=== PATIENT | female | born 1965 | race Caucasian/White ===

== ENCOUNTER 2017-12-25 10:34 | Emergency (ER) | payer MEDICARE, MEDICAID, SELFPAY ==
[2017-12-25 10:46] VITALS: BP 126/79; PULSE 88; RESP 16; TEMP 36.2; O2SAT 99
--- NOTE | 2017-12-25 12:11 | ED.GENADUL_ITS ---
Disposition Clinical Impression: Low back pain with sciatica Disposition: HOME Condition: Stable Instructions: Sciatica (ED), Lower Back Exercises (ED) Additional Instructions: Feel free to return to the emergency department if you have any fever associate with your back pain, saddle anesthesia, significant weakness to her lower cavities or further concerns you have emergently. Otherwise follow-up with your primary care provider next week for reassessment as discussed. Due to the medication you are being prescribed do not take any further ibuprofen or NSAIDs while on prescription diclofenac. If the lidocaine patch you are given in the emergency department is effective you may purchase [id number] lidocaine patches and apply as directed on packaging. Prescriptions: Diclofenac Sodium 50 mg PO Q8H PRN #12 tablet.dr RAZO Reason: Pain Referrals: Una Dickinson PA [Primary Care Provider] - 3 days (Please follow-up with your primary care provider early next week for reassessment as discussed.) Medical Decision Making - Medical Decision Making Patient presenting to the emergency department for 2 weeks of back pain. Patient has no signs of cauda equina, epidural abscess, severe radiculopathy with cord compression. Patient is ambulatory and has history of back pain with typical sciatica down both sides now just isolated to right side. Patient Edgar on Vicodin for her fibromyalgia and on Flexeril as needed. Given no emergent findings on physical exam today normal reflexes no saddle anesthesia no concerns for emergent back pain patient is given a lidocaine patch to see if this will also help along with ketorolac IM. Patient was told not to take any further [id number] ibuprofen was prescribed some diclofenac to see if that helps further with her pain on top of her Vicodin and informed that she should follow-up early next week with her primary care provider for reassessment and possible other medication changes to her normal pain regimen. Patient states understanding to not further take any NSAIDs and to continue to take her Flexeril and Vicodin as previously prescribed. Did discuss with patient possible steroid use but given her diabetes I do not feel that this is the best initial course at this time but it is considered. Patient informed that she may return to emergency department for any new or significant worsening of symptoms otherwise to follow-up with primary care early next week which she says will not be a problem. After discussion of diagnosis and plan of care with patient patient agreed and stated no further needs, questions, or concerns at this time. History of Present Illness - General Chief complaint: Nk/Back Pain Stated complaint: LOWER BACK AND RIGHT HIP Time Seen by Provider: 12/25/17 10:38 Source: patient, RN notes reviewed, old records reviewed Mode of arrival: ambulatory Limitations: no limitations - History of Present Illness Initial comments: Patient reports for the last 2 weeks she has had some lower back pain with radiation into right hip. She states she has ongoing low back pain, sciatica, and fibromyalgia that is normally treated by her primary care provider and with exacerbations she usually goes to her PCP but they are on vacation this week but that she can obtain an appointment for next Thursday is looking for help to assist her for the . Patient denies any fever chills, saddle anesthesia , changes in bowel or bladder function. Onset/Timin -: week(s) Location: back Radiation: distal (right leg) Severity scale (1-10): 9 Quality: aching, sharp Consistency: constant Improves with: none Worsens with: none Associated Symptoms: denies other symptoms - Related Data Hydrocodone/Acetaminophen [Vicodin 5-300 mg Tablet] 1 each PO TID 09/20/12 MetFORMIN [Glucophage] 1,000 mg PO BID 09/20/12 Albuterol Sulfate [Albuterol Sulfate Hfa] 1 gm IH PRN PRN 06/07/14 Mupirocin 2% Oint. [Bactroban 2% Ointment] 22 gm TP QID #22 tube 06/07/14 Duloxetine HCl 60 mg PO DAILY #30 cap 02/25/17 Epinephrine [Epipen 2-Leonidas] 1 dis.syr .ROUTE DIRECTED 04/13/17 Esomeprazole [NexIUM] 1 cap PO DAILY 04/13/17 Insulin Glargine [Lantus Solostar] 14 units SC BID 04/13/17 Lisinopril 10 mg PO DAILY tab-cap 04/13/17 Montelukast Sodium [Singulair] 10 mg PO DAILY 04/13/17 SUMAtriptan [Imitrex] 100 mg PO DIRECTED 04/13/17 Simvastatin [Zocor] 20 mg PO QPM 04/13/17 Zolpidem Tartrate [Ambien] 10 mg PO DAILY PRN PRN 04/13/17 Aspirin [Aspirin EC] 81 mg PO BID #30 tablet. 04/23/17 Diclofenac Sodium 50 mg PO Q8H PRN #12 tablet. 12/25/17 Allergies Allergy/AdvReac Type Severity Reaction Status Date / Time adhesive tape Allergy Intermediate Hives Unverified 12/25/17 10:51 venom-honey bee Allergy Intermediate severe Unverified 12/25/17 10:51 local reaction venom-wasp Allergy Intermediate severe Unverified 12/25/17 10:51 local reaction Sulfa (Sulfonamide Allergy Mild Skin Rash Unverified 12/25/17 10:51 Antibiotics) Review of Systems Constitutional: denies: chills, fever Cardiovascular: denies: chest pain, palpitations, syncope Gastrointestinal: denies: abdominal pain, nausea, vomiting, diarrhea Genitourinary: denies: dysuria Musculoskeletal: as per HPI, back pain. denies: joint swelling Neurological: denies: headache, weakness Comment: All other systems reviewed and negative Past Medical History - Past Medical History Medical history: arthritis, asthma, COPD, diabetes, fibromyalgia, GERD, hyperlipidemia, hypertension Lumbar back pain with sciatica, migraine headaches, obstructive sleep apnea Surgical history: non-contributory, bilateral tubal ligation, hysterectomy, other (Carpal tunnel surgery, knee arthroscopy,) Family history: CAD/GA, cancer, diabetes, hypertension - Social History Smoking status: current everyday smoker Alcohol use: none Drug use: none General Exam - General Limitations: no limitations General appearance: alert, in no apparent distress - Head Head exam: Present: atraumatic - Respiratory Respiratory exam: Present: normal lung sounds bilaterally. Absent: respiratory distress - Cardiovascular Cardiovascular Exam: Present: regular rate, normal rhythm, normal heart sounds - Rectal Rectal exam: Present: deferred - Extremities Exam Extremities exam: Present: full ROM - Back Exam Back exam: Present: vertebral tenderness (Lower lumbar spine) - Expanded Back Exam No standard instances Back exam: Absent: saddle anesthesia Back exam: Sciatic Notch Tenderness: (right), Positive Straight Leg Raise: ( right), Negative Straight Leg Raising: (left ) - Neurological Exam Neurological exam: Present: alert, oriented X3, reflexes normal (Patellar and Achilles). Absent: altered, motor sensory deficit - Skin Skin exam: Present: warm, dry, normal color Course Vital Signs - 24 hr 12/25/17 10:46 Temperature 36.2 C L Pulse 88 Respiratory 16 Rate Blood Pressure 126/79 Pulse Oximetry 99
[2017-12-25] MEDS: Lidocaine 5% Patch 1 PATCH TP (12:56)
[2017-12-25] MEDS: Ketorolac 60 MG/2 ML VIAL IM (12:58)
[2017-12-25 13:05] VITALS: BP 143/79; PULSE 82; RESP 16; TEMP 36.9; O2SAT 99
== END 2017-12-25 13:05 | disposition home or self-care (01) ==
PROVIDERS: Emergency Provider Student in an Organized Health Care Education/Training Program; PCP Physician Assistant Medical
DX: M54.41 Lumbago with sciatica, right side (principal); G89.29 Other chronic pain; Z79.891 Long term (current) use of opiate analgesic; I10 Essential (primary) hypertension; E11.9 Type 2 diabetes mellitus without complications; Z79.4 Long term (current) use of insulin; J44.9 Chronic obstructive pulmonary disease, unspecified; F17.210 Nicotine dependence, cigarettes, uncomplicated
CPT/HCPCS: 96372; 99284 ×2; J1885

== ENCOUNTER → 2017-12-30 08:54 | Outpatient (REF) | payer MEDICARE, MEDICAID, SELFPAY ==
[2017-12-31 10:59] LABS: Campylobacter PCR SEE COMMENTS; Result Negative; Salmonella PCR SEE COMMENTS; Shiga Toxin PCR SEE COMMENTS; Shigella/Enteroinvasive Ecoli SEE COMMENTS; Specimen Description Feces
== END ==
LOC: NCHCN 08:54
PROVIDERS: PCP Physician Assistant Medical; Visit Provider Physician Assistant Medical
DX: R19.7 Diarrhea, unspecified (principal)
CPT/HCPCS: 87329; 87505; 87324; 87798

== ENCOUNTER → 2018-01-18 15:01 | Outpatient (CLI) | payer MEDICARE, MEDICAID, SELFPAY ==
--- NOTE | 2018-01-18 14:54 | DI.REPORT_ITS ---
SYMPTOMS/DIAGNOSIS: RIGHT KNEE PAIN; RIGHT ANKLE PAIN; RIGHT SHOULDER PAIN RIGHT KNEE: Three views. No acute fracture or dislocation is seen. There is mild narrowing of the lateral femorotibial joint space. Mild periarticular spurring and subchondral sclerosis is also seen in the lateral femorotibial joint space. The joint spaces are otherwise well maintained. The bones are normally mineralized. The soft tissues are unremarkable. IMPRESSION: Osteoarthritis of the right knee, predominantly involving the lateral femorotibial joint. RIGHT ANKLE: Three views. Comparison is 03/08/17. The articular surfaces are well maintained. The bones are intact and normally mineralized. There is a small spur at the Achilles insertion onto the calcaneus. The soft tissues are unremarkable. IMPRESSION: No acute abnormality. RIGHT SHOULDER: No priors. Mild hypertrophic changes are seen at the acromioclavicular joint. The glenohumeral joint appears well maintained. The bones are intact and normally mineralized. The soft tissues are unremarkable. IMPRESSION: Mild degenerative changes about the right shoulder.
== END ==
PROVIDERS: PCP Physician Assistant Medical; Visit Provider Student in an Organized Health Care Education/Training Program
DX: M25.561 Pain in right knee (principal); M25.571 Pain in right ankle and joints of right foot; M25.511 Pain in right shoulder; M19.011 Primary osteoarthritis, right shoulder; M17.11 Unilateral primary osteoarthritis, right knee; M75.81 Other shoulder lesions, right shoulder; G89.29 Other chronic pain
CPT/HCPCS: 73030; 73562; 73610; 20610; 99214; J1040

== ENCOUNTER → 2018-03-01 07:53 | Outpatient (BNVA) | payer MEDICARE, MEDICAID, SELFPAY | PROVIDERS: Visit Provider Student in an Organized Health Care Education/Training Program | DX: M75.81 Other shoulder lesions, right shoulder (principal); G57.91 Unspecified mononeuropathy of right lower limb; E11.41 Type 2 diabetes mellitus with diabetic mononeuropathy; Z79.4 Long term (current) use of insulin; I10 Essential (primary) hypertension | CPT/HCPCS: 99214 ==

== ENCOUNTER 2018-03-04 01:18 | Outpatient (CLI) | payer MEDICARE, MEDICAID, SELFPAY ==
--- NOTE | 2018-03-04 11:40 | DI.MRI_ITS ---
SYMPTOMS/DIAGNOSIS: RT SHOULDER PAIN, TENDINITIS, M75.81 MRI OF THE RIGHT SHOULDER: Comparison is made with plain films dated . Proton density and fat suppressed T 2 axial and coronal and T 1 and fat suppressed T 2 sagittal sequences were performed. The exam is limited by patient motion, particularly the coronal sequences. There is also poor fat suppression in part related to the patient's body habitus. There are minimal degenerative changes of the AC joint. There is some spurring from the glenoid. The marrow signal appears normal. The supraspinatus tendon appears intact. There is mildly increased signal in the distal infraspinatus tendon as well as in the distal subscapularis tendon, consistent with tendinosis. The biceps and teres minor tendons appear intact. No labral defects are identified. IMPRESSION: Tendinosis involving the infraspinatus and subscapularis tendons.
== END 2018-03-04 01:38 ==
PROVIDERS: PCP Nurse Practitioner Family; Visit Provider Student in an Organized Health Care Education/Training Program
DX: M25.511 Pain in right shoulder (principal); M75.81 Other shoulder lesions, right shoulder
CPT/HCPCS: 73221

== ENCOUNTER 2018-03-29 15:20 | Emergency (ER) | payer MEDICARE, MEDICAID, SELFPAY ==
[2018-03-29 15:30] VITALS: BP 159/87; PULSE 80; RESP 16; TEMP 26.8; O2SAT 99
--- NOTE | 2018-03-29 15:40 | W.ED.GENAD ---
Discharge Plan Disposition Patient Disposition: HOME Condition: Good Discharge Details Chief Complaint: Orthopedic Clinical Impression: Sprain of wrist Primary Care Provider: Yamile De Leon ED Provider: Misael Sims Home Meds and New Rx's Prescriptions: Continue duloxetine 60 MG capsule,delayed release(DR/EC) 60 mg PO DAILY Qty: 30 RF: 0 lisinopril 10 MG tablet 10 mg PO DAILY RF: 0 metformin [Glucophage] 1,000 MG tablet 1,000 mg PO BID RF: 0 hydrocodone-acetaminophen [Vicodin] 1 EACH tablet 1 ea PO TID RF: 0 albuterol sulfate 8.5 GM HFA aerosol inhaler 1 gm Inhalation PRN PRNRF: 0 mupirocin 22 GM ointment 22 gm Topical QID Qty: 22 RF: 2 diclofenac sodium 50 MG tablet,delayed release (DR/EC) 50 mg PO Q8H PRN (Reason: Pain) Qty: 12 RF: 0 insulin glargine [Lantus Solostar U-100 Insulin] 300 UNITS/3 ML insulin pen 14 units Sub-Q BID RF: 0 sumatriptan succinate 100 MG tablet 100 mg PO DIRECTED RF: 0 simvastatin 20 MG tablet 20 mg PO QPM RF: 0 esomeprazole magnesium [Nexium] 40 MG capsule,delayed release(DR/EC) 1 cap PO DAILY RF: 0 montelukast [Singulair] 10 MG tablet 10 mg PO DAILY RF: 0 epinephrine [EpiPen 2-Leonidas] 0.3 MG/0.3 ML auto-injector 1 dis.syr .Route DIRECTED RF: 0 zolpidem [Ambien] 10 MG tablet 10 mg PO DAILY PRN PRNRF: 0 aspirin 81 MG tablet,delayed release (DR/EC) 81 mg PO BID Qty: 30 RF: 0 Discharge Instructions Instructions: Wrist Sprain (ED) Additional Instructions: Wear removable wrist splint, as needed 7-10 days time. Continue ice, Tylenol if, & your regular medications. Return for increasing pain, swelling, cold/blue/numb or tingling fingertips Follow-up with Yamile De Leon if not improving in 1 week's time Medical Decision Making 52-year-old female presents from home with essentially a trip and fall when she stumbled over her dog carrying wood. She has predominately left wrist pain but also mild left elbow and shoulder pain. Differential diagnosis includes contusion, sprain, fracture. She is referred for x-ray of the left upper extremity. Patient's radiograph does not reveal underlying fracture. She certainly has a wrist strain/sprain. We will place in a removable cockup wrist splint. Discussed with her home management as well as return precautions. She is stable for discharge HPI General Mode of arrival: ambulatory. Date/Time Provider Initiated Documentation: 03/29/18 15:23. Limitations to Documentation: no limitations. Information obtained by: patient. History of Present Illness 52 year old F presents to the emergency department with the chief complaint of Fall and left arm and wrist, described as moderate, Quality is described as aching, and is localized to the left and upper extremity. Patient reports no radiation. Patient started experiencing this minute(s) and it has been constant. No relieving factors improve symptom(s), and Rest improves symptom(s), Movement worsens symptoms . HPI Narrative: Fall: 52-year-old female who has pre-standing right sided intermittent low back pain and weakness with frequent giving out of the leg, for which she has pre-standing appointments with orthopedics and neurology. She had no new changes to this pre-standing condition, today while carrying wood her leg started to give out and she attempted to catch herself as is her routine, when she tripped over her dog and fell with her left wrist in pronation and flexion, striking the ground. She did not have loss of consciousness. She denies head/neck/back/chest/abdominal/back/leg injury. She has dull, achy, constant left wrist pain and left elbow pain. She has mild left shoulder pain. She does not have any motor weakness or numbness Related Data Home Medications Medication Instructions Recorded Confirmed hydrocodone-acetaminophen [Vicodin] 1 ea PO TID 09/20/12 03/29/18 metformin [Glucophage] 1,000 mg PO BID 09/20/12 03/29/18 albuterol sulfate 1 gm INHALATION PRN PRN 06/07/14 03/29/18 mupirocin 22 gm TOPICAL QID #22 tube 06/07/14 03/29/18 duloxetine 60 mg PO DAILY #30 cap 02/25/17 03/29/18 epinephrine [EpiPen 2-Leonidas] 1 dis.syr .ROUTE DIRECTED 04/13/17 03/29/18 esomeprazole magnesium [Nexium] 1 cap PO DAILY 04/13/17 03/29/18 insulin glargine [Lantus Solostar 14 units SUB-Q BID 04/13/17 03/29/18 U-100 Insulin] lisinopril 10 mg PO DAILY tab-cap 04/13/17 03/29/18 montelukast [Singulair] 10 mg PO DAILY 04/13/17 03/29/18 simvastatin 20 mg PO QPM 04/13/17 03/29/18 sumatriptan succinate 100 mg PO DIRECTED 04/13/17 03/29/18 zolpidem [Ambien] 10 mg PO DAILY PRN PRN 04/13/17 03/29/18 aspirin 81 mg PO BID #30 tablet. 04/23/17 03/29/18 diclofenac sodium 50 mg PO Q8H PRN #12 tablet. 12/25/17 03/29/18 Previous Rx's Medication Instructions Recorded mupirocin 22 gm TOPICAL QID #22 tube 06/07/14 duloxetine 60 mg PO DAILY #30 cap 02/25/17 aspirin 81 mg PO BID #30 tablet. 04/23/17 diclofenac sodium 50 mg PO Q8H PRN #12 tablet. 12/25/17 Allergies Allergy/AdvReac Type Severity Reaction Status Date / Time adhesive tape Allergy Intermediate Hives Unverified 03/29/18 15:38 venom-honey bee Allergy Intermediate severe Unverified 03/29/18 15:38 local reaction venom-wasp Allergy Intermediate severe Unverified 03/29/18 15:38 local reaction Sulfa (Sulfonamide Allergy Mild Skin Rash Unverified 03/29/18 15:38 Antibiotics) General Stated Complaint: Orthopedic KATHERINE: 4 Review of Systems Review of Systems 6 systems reviewed and otherwise neg PFSH Medical History Asthma Chronic pain Depression Diabetes mellitus Diarrhea Dry skin Fibromyalgia GERD (gastroesophageal reflux disease) Generalized anxiety disorder Headache Heel pain, bilateral Hematuria Hyperlipidemia Hypertension Impingement syndrome, shoulder, left Long-term insulin use Lumbar back pain Menopause syndrome Narcotic drug use Obesity Obstructive sleep apnea Skin rash Tobacco use Urinary frequency Social History Smoking/Tobacco Use Status: Current every day Surgical History Colonoscopy - MAC (11/06/17) Exam Narrative Exam Narrative: GEN: awake, alert, oriented 3. Pleasant, well groomed, interactive. HEAD: Normocephalic, atraumatic ENT: Mucous membranes moist, oropharynx unremarkable, External ear exam unremarkable EYES: PERRL, EOMI NECK: Full ROM, no SAMI, no menigismus, no tenderness. CHEST/RESP: Nontender, clear to auscultation bilateral, no wheeze/rhonchi/rales CARDIOVASCULAR: RRR, no murmur, rub cleo. 2+ Rad pulse bilateral ABDOMEN: Soft, nontender, no mass. +Bowel sounds. Exam of the back does not reveal any tenderness, no midline step-off/deformity. EXT: Full ROM, no edema, no rash. No tenderness of the left clavicle. Mild tenderness of the anterior glenohumeral joint. Motor is 5 out of 5 but limited somewhat by pain. Sensation is intact throughout the upper extremity. Focal tenderness on the radial aspect of the left wrist Neuro: Grossly normal neurologic exam, conversant, interactive. Psych: Speech fluent, thoughts congruent, affect normal Course Vital Signs Temperature 26.8 C L 03/29/18 15:30 Pulse 80 03/29/18 15:30 Respiratory Rate 16 03/29/18 15:30 Blood Pressure 159/87 H 03/29/18 15:30 Pulse Oximetry 99 03/29/18 15:30 Temperature 26.8 C L 03/29/18 15:30 Temperature Source Skin 03/29/18 15:30 Pulse 80 03/29/18 15:30 Respiratory Rate 16 03/29/18 15:30 Respiratory Effort Non-Labored 03/29/18 15:33 Blood Pressure 159/87 H 03/29/18 15:30 Pulse Oximetry 99 03/29/18 15:30 Pain Level 10 03/29/18 15:30
--- NOTE | 2018-03-29 15:44 | ED.GENADUL_ITS ---
Discharge Plan Disposition Patient Disposition: HOME Condition: Good Discharge Details Chief Complaint: Orthopedic Clinical Impression: Sprain of wrist Primary Care Provider: Yamile De Leon ED Provider: Misael Sims Home Meds and New Rx's Prescriptions: Continue duloxetine 60 MG capsule,delayed release(DR/EC) 60 mg PO DAILY Qty: 30 RF: 0 lisinopril 10 MG tablet 10 mg PO DAILY RF: 0 metformin [Glucophage] 1,000 MG tablet 1,000 mg PO BID RF: 0 hydrocodone-acetaminophen [Vicodin] 1 EACH tablet 1 ea PO TID RF: 0 albuterol sulfate 8.5 GM HFA aerosol inhaler 1 gm Inhalation PRN PRNRF: 0 mupirocin 22 GM ointment 22 gm Topical QID Qty: 22 RF: 2 diclofenac sodium 50 MG tablet,delayed release (DR/EC) 50 mg PO Q8H PRN (Reason: Pain) Qty: 12 RF: 0 insulin glargine [Lantus Solostar U-100 Insulin] 300 UNITS/3 ML insulin pen 14 units Sub-Q BID RF: 0 sumatriptan succinate 100 MG tablet 100 mg PO DIRECTED RF: 0 simvastatin 20 MG tablet 20 mg PO QPM RF: 0 esomeprazole magnesium [Nexium] 40 MG capsule,delayed release(DR/EC) 1 cap PO DAILY RF: 0 montelukast [Singulair] 10 MG tablet 10 mg PO DAILY RF: 0 epinephrine [EpiPen 2-Leonidas] 0.3 MG/0.3 ML auto-injector 1 dis.syr .Route DIRECTED RF: 0 zolpidem [Ambien] 10 MG tablet 10 mg PO DAILY PRN PRNRF: 0 aspirin 81 MG tablet,delayed release (DR/EC) 81 mg PO BID Qty: 30 RF: 0 Discharge Instructions Instructions: Wrist Sprain (ED) Additional Instructions: Wear removable wrist splint, as needed 7-10 days time. Continue ice, Tylenol if , & your regular medications. Return for increasing pain, swelling, cold/blue/numb or tingling fingertips Follow-up with Yamile De Leon if not improving in 1 week's time Medical Decision Making 52-year-old female presents from home with essentially a trip and fall when she stumbled over her dog carrying wood. She has predominately left wrist pain but also mild left elbow and shoulder pain. Differential diagnosis includes contusion, sprain, fracture. She is referred for x-ray of the left upper extremity. Patient's radiograph does not reveal underlying fracture. She certainly has a wrist strain/sprain. We will place in a removable cockup wrist splint. Discussed with her home management as well as return precautions. She is stable for discharge HPI General Mode of arrival: ambulatory . Date/Time Provider Initiated Documentation: 03/29/18 15:23 . Limitations to Documentation: no limitations . Information obtained by: patient . History of Present Illness 52 year old F presents to the emergency department with the chief complaint of Fall and left arm and wrist, described as moderate, Quality is described as aching, and is localized to the left and upper extremity. Patient reports no radiation. Patient started experiencing this minute(s) and it has been constant. No relieving factors improve symptom(s), and Rest improves symptom(s ), Movement worsens symptoms . HPI Narrative: Fall: 52-year-old female who has pre-standing right sided intermittent low back pain and weakness with frequent giving out of the leg, for which she has pre- standing appointments with orthopedics and neurology. She had no new changes to this pre-standing condition, today while carrying wood her leg started to give out and she attempted to catch herself as is her routine, when she tripped over her dog and fell with her left wrist in pronation and flexion, striking the ground. She did not have loss of consciousness. She denies head/neck/back/ chest/abdominal/back/leg injury. She has dull, achy, constant left wrist pain and left elbow pain. She has mild left shoulder pain. She does not have any motor weakness or numbness Related Data Home Medications Medication Instructions Recorded Confirmed hydrocodone-acetaminophen [Vicodin] 1 ea PO TID 09/20/12 03/29/18 metformin [Glucophage] 1,000 mg PO BID 09/20/12 03/29/18 albuterol sulfate 1 gm INHALATION PRN PRN 06/07/14 03/29/18 mupirocin 22 gm TOPICAL QID #22 tube 06/07/14 03/29/18 duloxetine 60 mg PO DAILY #30 cap 02/25/17 03/29/18 epinephrine [EpiPen 2-Leonidas] 1 dis.syr .ROUTE DIRECTED 04/13/17 03/29/18 esomeprazole magnesium [Nexium] 1 cap PO DAILY 04/13/17 03/29/18 insulin glargine [Lantus Solostar 14 units SUB-Q BID 04/13/17 03/29/18 U-100 Insulin] lisinopril 10 mg PO DAILY tab-cap 04/13/17 03/29/18 montelukast [Singulair] 10 mg PO DAILY 04/13/17 03/29/18 simvastatin 20 mg PO QPM 04/13/17 03/29/18 sumatriptan succinate 100 mg PO DIRECTED 04/13/17 03/29/18 zolpidem [Ambien] 10 mg PO DAILY PRN PRN 04/13/17 03/29/18 aspirin 81 mg PO BID #30 tablet. 04/23/17 03/29/18 diclofenac sodium 50 mg PO Q8H PRN #12 tablet. 12/25/17 03/29/18 Previous Rx's Medication Instructions Recorded mupirocin 22 gm TOPICAL QID #22 tube 06/07/14 duloxetine 60 mg PO DAILY #30 cap 02/25/17 aspirin 81 mg PO BID #30 tablet. 04/23/17 diclofenac sodium 50 mg PO Q8H PRN #12 tablet. 12/25/17 Allergies Allergy/AdvReac Type Severity Reaction Status Date / Time adhesive tape Allergy Intermediate Hives Unverified 03/29/18 15:38 venom-honey bee Allergy Intermediate severe Unverified 03/29/18 15:38 local reaction venom-wasp Allergy Intermediate severe Unverified 03/29/18 15:38 local reaction Sulfa (Sulfonamide Allergy Mild Skin Rash Unverified 03/29/18 15:38 Antibiotics) General Stated Complaint: Orthopedic KATHERINE: 4 Review of Systems Review of Systems 6 systems reviewed and otherwise neg PFSH Medical History Asthma Chronic pain Depression Diabetes mellitus Diarrhea Dry skin Fibromyalgia GERD (gastroesophageal reflux disease) Generalized anxiety disorder Headache Heel pain, bilateral Hematuria Hyperlipidemia Hypertension Impingement syndrome, shoulder, left Long-term insulin use Lumbar back pain Menopause syndrome Narcotic drug use Obesity Obstructive sleep apnea Skin rash Tobacco use Urinary frequency Social History Smoking/Tobacco Use Status: Current every day Surgical History Colonoscopy - MAC (11/06/17) Exam Narrative Exam Narrative: GEN: awake, alert, oriented 3. Pleasant, well groomed, interactive. HEAD: Normocephalic, atraumatic ENT: Mucous membranes moist, oropharynx unremarkable, External ear exam unremarkable EYES: PERRL, EOMI NECK: Full ROM, no SAMI, no menigismus, no tenderness. CHEST/RESP: Nontender, clear to auscultation bilateral, no wheeze/rhonchi/rales CARDIOVASCULAR: RRR, no murmur, rub cleo. 2+ Rad pulse bilateral ABDOMEN: Soft, nontender, no mass. +Bowel sounds. Exam of the back does not reveal any tenderness, no midline step-off/deformity. EXT: Full ROM, no edema, no rash. No tenderness of the left clavicle. Mild tenderness of the anterior glenohumeral joint. Motor is 5 out of 5 but limited somewhat by pain. Sensation is intact throughout the upper extremity. Focal tenderness on the radial aspect of the left wrist Neuro: Grossly normal neurologic exam, conversant, interactive. Psych: Speech fluent, thoughts congruent, affect normal Course Vital Signs Temperature 26.8 C L 03/29/18 15:30 Pulse 80 03/29/18 15:30 Respiratory Rate 16 03/29/18 15:30 Blood Pressure 159/87 H 03/29/18 15:30 Pulse Oximetry 99 03/29/18 15:30 Temperature 26.8 C L 03/29/18 15:30 Temperature Source Skin 03/29/18 15:30 Pulse 80 03/29/18 15:30 Respiratory Rate 16 03/29/18 15:30 Respiratory Effort Non-Labored 03/29/18 15:33 Blood Pressure 159/87 H 03/29/18 15:30 Pulse Oximetry 99 03/29/18 15:30 Pain Level 10 03/29/18 15:30
[2018-03-29] MEDS: Acetaminophen 500 MG TAB 1000 MG PO (15:47)
--- NOTE | 2018-03-29 16:14 | DI.RAD_ITS ---
SYMPTOM/DIAGNOSIS: FELL, PAIN SHOULDER AND WRIST, PREVIOUS REPAIR OF SHOULDER LEFT SHOULDER: Five views. Comparison is made with 11/20/16. Since the prior examination, the patient has undergone partial resection of the distal clavicle. No acute fracture or dislocation is identified. There is a well corticated osseous density within the acromioclavicular interval consistent with old injury. The glenohumeral joint is unremarkable. The soft tissues have a normal appearance. IMPRESSION: No acute fracture or dislocation. LEFT FOREARM: Two views. Comparison is made with 01/15/13. No definite acute fracture or dislocation is identified. There has been no change in alignment of the unfused ulnar styloid process. The soft tissues are unremarkable.
--- NOTE | 2018-03-29 16:43 | DI.VRAD_ITS ---
EXAM: XR Left Forearm, 2 Views EXAM DATE/TIME: 03/29/2018 3:40 PM CLINICAL HISTORY: 52 years old, female; Pain; Lower or forearm; Left TECHNIQUE: XR Left forearm 2 views. COMPARISON: No relevant prior studies available. FINDINGS: Bones/joints: Image 1001 demonstrates a cortical step-off at the articular surface of the distal ulna which could be secondary to old trauma but should be correlated with concern for acute subtle fracture. There is negative ulnar variance. A well-corticated 6 mm oval ossific density is seen just distal to the ulna. This could represent the sequela of older trauma or an os. Soft tissues: No radiopaque foreign body seen. IMPRESSION: 1.Image 1001 demonstrates a cortical step-off at the articular surface of the distal ulna which could be secondary to old trauma but should be correlated with concern for acute subtle fracture in this region. 2. Other findings as above. Dictated and Authenticated by: Nell Ibrahim MD. Ordering:STARLA HERNANDEZ MD
--- NOTE | 2018-03-29 16:49 | DI.VRAD_ITS ---
EXAM: XR Left Shoulder Complete, 2 or More Views EXAM DATE/TIME: 03/29/2018 3:40 PM CLINICAL HISTORY: 52 years old, female; Pain; Shoulder; Left TECHNIQUE: XR Left shoulder complete 2 or more views. COMPARISON: CR LEFT SHOULDER COMPLETE 11/20/2016 8:05 AM FINDINGS: Bones/joints: There is some irregularity to the lateral aspect of the humeral head which could represent an old Hill-Sachs deformity. No dislocation. There is a new widened appearance to the left a.c. joint. Within the joint space on image 1005 a 6 mm oval density is identified which could represent a bony fragment or soft tissue calcification. Soft tissues: No radiopaque foreign body seen. IMPRESSION: 1.There is a new widened appearance to the left a.c. joint. This can be seen secondary to an a.c. joint injury or postoperative change. Within the joint space on image 1005 , a 6 mm oval density is identified which could represent a bony fragment or soft tissue calcification. 2. Some irregularity to the lateral aspect of the humeral head which could represent an old Hill-Sachs deformity. 3. Other findings as above. Dictated and Authenticated by: Nell Ibrahim MD. Ordering:STARLA HERNANDEZ MD
== END 2018-03-29 17:07 | disposition home or self-care (01) ==
LOC: ER 16:22
PROVIDERS: Emergency Provider Emergency Medicine; PCP Nurse Practitioner Family
DX: S63.502A Unspecified sprain of left wrist, initial encounter (principal); M25.512 Pain in left shoulder; M25.522 Pain in left elbow; W01.0XXA Fall on same level from slipping, tripping and stumbling without subsequent striking against object, initial encounter; G57.91 Unspecified mononeuropathy of right lower limb; J44.9 Chronic obstructive pulmonary disease, unspecified; F17.210 Nicotine dependence, cigarettes, uncomplicated; E11.9 Type 2 diabetes mellitus without complications; Z79.4 Long term (current) use of insulin; I10 Essential (primary) hypertension
CPT/HCPCS: 29125; 99284; 73030; 73090; L3807

== ENCOUNTER → 2018-04-29 12:30 | Outpatient (BNVA) | payer MEDICARE, MEDICAID, SELFPAY | PROVIDERS: PCP Nurse Practitioner Family; Visit Provider Psychiatry & Neurology Neurology | DX: M54.17 Radiculopathy, lumbosacral region (principal); E11.9 Type 2 diabetes mellitus without complications; Z79.4 Long term (current) use of insulin; I10 Essential (primary) hypertension | CPT/HCPCS: 95885; 95908; 99215 ==

== ENCOUNTER 2018-05-04 00:43 | Outpatient (CLI) | payer MEDICARE, MEDICAID, SELFPAY ==
--- NOTE | 2018-05-04 14:46 | DI.MRI_ITS ---
SYMPTOM/DIAGNOSIS: RT LEG GIVING OUT, RT LUMBOSACRAL RADICULOPATHY, M54.17, CHRONIC LOW BACK PAIN, BILAT LEG PAIN LUMBAR SPINE MRI: Comparison is made with 07/25/10. T 1, T 2 and STIR sagittal, T 1 coronal and T 1 and T 2 axial sequences were performed. The L 1-2 and L 2-3 levels are unremarkable. There is slight disc bulging and mild facet degenerative changes at L 3-4. Slight disc bulging and mild facet degenerative changes are seen at L 4-5. Mild facet degenerative changes are noted at L 5-S 1. No disc herniation is seen at any level. There is no significant neural foraminal narrowing or central canal stenosis. The conus medullaris appears normal. IMPRESSION: Mild degenerative disc changes.
== END 2018-05-04 01:03 ==
PROVIDERS: PCP Nurse Practitioner Family; Visit Provider Psychiatry & Neurology Neurology
DX: M54.17 Radiculopathy, lumbosacral region (principal); M79.604 Pain in right leg; M79.605 Pain in left leg; M51.17 Intervertebral disc disorders with radiculopathy, lumbosacral region
CPT/HCPCS: 72148

== ENCOUNTER → 2018-06-08 14:22 | Outpatient (BNVA) | payer MEDICARE, MEDICAID, SELFPAY | PROVIDERS: PCP Nurse Practitioner Family; Visit Provider Psychiatry & Neurology Neurology | DX: M54.17 Radiculopathy, lumbosacral region (principal); M54.41 Lumbago with sciatica, right side; G89.29 Other chronic pain; E11.9 Type 2 diabetes mellitus without complications; Z79.4 Long term (current) use of insulin; I10 Essential (primary) hypertension | CPT/HCPCS: 99214 ==

== ENCOUNTER 2018-06-14 08:27 | Outpatient (CLI) | payer MEDICARE, MEDICAID, SELFPAY ==
--- NOTE | 2018-06-14 08:40 | DI.RAD_ITS ---
SYMPTOM/DIAGNOSIS: PERSISTENT AND WORSENING RT KNEE PAIN RIGHT KNEE: Three views. Comparison is made with 01/18/18. No acute fracture or dislocation is seen. There is mild narrowing of the lateral femoral tibial joint space. Mild josiane-articular spurring is seen involving the lateral femoral tibial joint and the patellofemoral joint. There is subchondral sclerosis and cystic change involving the lateral femoral condyle. It appears unchanged. An MRI may be considered for further evaluation of the distal femur. No destructive changes are seen. The soft tissues are unremarkable. IMPRESSION: 1. Mild osteoarthritis of the right knee. 2. Stables changes involving the lateral femoral condyle. If further evaluation is warranted of the distal femur, an MRI should be considered.
== END 2018-06-14 08:47 ==
PROVIDERS: PCP Nurse Practitioner Family; Referring Provider Nurse Practitioner Family; Visit Provider Student in an Organized Health Care Education/Training Program
DX: M25.561 Pain in right knee (principal); M17.11 Unilateral primary osteoarthritis, right knee; I10 Essential (primary) hypertension; E11.9 Type 2 diabetes mellitus without complications; Z79.4 Long term (current) use of insulin
CPT/HCPCS: 20610; 73562; 99213; 99243; J1040

== ENCOUNTER 2018-06-22 00:42 | Outpatient (CLI) | payer MEDICARE, MEDICAID, SELFPAY ==
--- NOTE | 2018-06-22 11:47 | DI.MRI_ITS ---
SYMPTOM/DIAGNOSIS: RT KNEE INTERNAL DERANGEMENT, PAIN,SWELLING RIGHT KNEE MRI: Comparison is made with plain films dated 06/14/18. Fat suppressed T 2, axial, T 1 and fat suppressed T 2 coronal, proton density and fat suppressed T 2 sagittal and proton density oblique sagittal sequences were performed. There is an area of sclerosis on plain films. There is a mild amount of increased signal in this area. There is cartilage thinning over the lateral femoral condyle extending down to bone. Small spurs are seen from the femoral condyles and tibial plateaus. The cruciate and collateral ligaments and extensor mechanism appear intact. There is also mild irregularity and thinning over the cartilage of the medial femoral condyle. A minimal defect is seen at the patellar cartilage. No meniscal tears are seen. There is a normal quantity of joint fluid. No Marie's cyst is seen. IMPRESSION: Sclerosis in the lateral femoral condyle with overlying severe thinning and irregularity of the cartilage. The findings are likely consistent with long standing degenerative changes. No meniscal tear or ligament tear is seen. There is no suspicion of an underlying bone mass.
== END 2018-06-22 01:02 ==
PROVIDERS: PCP Nurse Practitioner Family; Visit Provider Student in an Organized Health Care Education/Training Program
DX: M25.561 Pain in right knee (principal); M23.91 Unspecified internal derangement of right knee; M17.11 Unilateral primary osteoarthritis, right knee
CPT/HCPCS: 73721

== ENCOUNTER 2018-07-01 16:37 | Outpatient (REF) | payer MEDICARE, MEDICAID, SELFPAY ==
[2018-07-01 21:44] LABS: C & S Indicated? C&S Done As Ordered
[2018-07-01 21:56] LABS: Epithelial Cells Moderate HPF (Negative); RBC Negative (0-2); WBC >50 HPF (0-5)
[2018-07-01 21:57] LABS: Bacteria Moderate HPF (Negative); Crystals Negative HPF (Negative); Mucus Negative (Negative)
== END 2018-07-01 16:57 ==
LOC: NCHCN 16:37
PROVIDERS: PCP Nurse Practitioner Family; Visit Provider Nurse Practitioner Family
DX: R31.9 Hematuria, unspecified (principal)
CPT/HCPCS: 81015; 87086

== ENCOUNTER → 2018-07-14 07:54 | Outpatient (BNVA) | payer MEDICARE, MEDICAID, SELFPAY | PROVIDERS: PCP Nurse Practitioner Family; Referring Provider Nurse Practitioner Family; Visit Provider Student in an Organized Health Care Education/Training Program | DX: M17.11 Unilateral primary osteoarthritis, right knee (principal); E11.9 Type 2 diabetes mellitus without complications; I10 Essential (primary) hypertension; Z79.4 Long term (current) use of insulin | CPT/HCPCS: 20610; 99213; J1040 ==

== ENCOUNTER → 2018-07-30 10:04 | Outpatient (BNVA) | payer MEDICARE, MEDICAID, SELFPAY | PROVIDERS: PCP Nurse Practitioner Family; Referring Provider Nurse Practitioner Family; Visit Provider Student in an Organized Health Care Education/Training Program | DX: M75.81 Other shoulder lesions, right shoulder (principal); M17.12 Unilateral primary osteoarthritis, left knee; E11.9 Type 2 diabetes mellitus without complications; Z79.4 Long term (current) use of insulin; I10 Essential (primary) hypertension | CPT/HCPCS: 20610; 99213; J1040 ==

== ENCOUNTER 2018-08-22 08:45 | Emergency (ER) | payer MEDICARE, MEDICAID, SELFPAY ==
[2018-08-22 08:48] VITALS: BP 144/77; PULSE 104; RESP 16; TEMP 36.6; O2SAT 95
[2018-08-22] MEDS: Normal Saline 1,000 ML 1000 ML IV ×2 (09:03→10:41)
--- NOTE | 2018-08-22 09:05 | ED.GENADUL_ITS ---
Discharge Plan Disposition Patient Disposition: HOME Condition: Improving Discharge Details Chief Complaint: Nausea/Vomit/Diar Clinical Impression: Colitis, Vomiting Primary Care Provider: Yamile De Leon ED Provider: Rose Marie Morales Home Meds and New Rx's Prescriptions: New ondansetron HCl [Zofran] 4 mg tablet 4 mg PO QID PRN (Reason: nausea and vomiting) Qty: 6 RF: 0 Continued acetaminophen [Tylenol Extra Strength] 500 mg tablet 500 mg PO BID PRNRF: 0 walker misc .ROUTE .MEDSUPPLY Qty: 1 RF: 0 gabapentin 800 mg tablet 800 mg PO HS Qty: 90 RF: 3 pantoprazole 40 mg tablet,delayed release (DR/EC) 40 mg PO DAILY RF: 0 betamethasone dipropionate 0.05 % cream 1 applic TP BID PRNRF: 0 hydrocodone-acetaminophen 5-325 mg tablet 1 tab PO TID PRNRF: 0 baclofen 10 mg tablet 10 mg PO TID PRNRF: 0 lisinopril 10 MG tablet 10 mg PO DAILY RF: 0 ibuprofen 600 mg tablet 600 mg PO TID PRN (Reason: pain) Qty: 90 RF: 3 metformin [Glucophage] 1,000 mg tablet 500 mg PO BID RF: 0 albuterol sulfate 90 mcg/actuation HFA aerosol inhaler 2 inh Inhalation Q4H PRNRF: 0 simvastatin 20 MG tablet 20 mg PO QPM RF: 0 epinephrine [EpiPen 2-Leonidas] 0.3 MG/0.3 ML auto-injector 1 dis.syr .Route DIRECTED RF: 0 zolpidem [Ambien] 10 MG tablet 10 mg PO DAILY PRN PRNRF: 0 aspirin 81 MG tablet,delayed release (DR/EC) 81 mg PO BID Qty: 30 RF: 0 clotrimazole 10 mg [place] 10 mg MUCOUS MEMBRANE QID RF: 0 Basaglar KwikPen U-100 Insulin 100 unit/mL (3 mL) Insulin Pen 18 unit SUBCUT QAM RF: 0 Discharge Instructions Instructions: Acute Nausea and Vomiting (ED), Colitis (ED) Additional Instructions: Follow-up with your scheduled appointment with your primary care doctor tomorr ow. As you do not have fever or bloody diarrhea, I do not think you need antibiotics for your diarrhea at this time. Discuss with your primary care doctor if you continue to have diarrhea, to obtain a stool culture for consideration of possible antibiotics if the diarrhea persists or worsens. Take the Zofran as needed and directed for any nausea or vomiting. Drink plenty of fluids and get plenty of rest. Return immediately to the emergency department any worsening or new concerning symptoms. Discharge Data Discharge Physician: Rose Marie Morales Medical Decision Making 53-year-old female with a history of diabetes, fibromyalgia, hypertension, hyperlipidemia, migraine, obesity who presents with nausea and mild loose stool with lower crampy abdominal pain since yesterday. Also admits to a recent URI since 08/11 but states is overall improved. Heart rate 104 on arrival, remainder vitals within normal limits. Patient is holding vomitus bag and complaining of nausea. Normal ENT exam. Lungs clear to auscultation. Her abdomen is soft without rebound, rigidity or guarding but is mildly tender across the lower abdomen. Differential diagnosis includes gastroenteritis, diverticulitis, colitis, pneumonia, electrolyte abnormality, UTI. Will place an IV, bolus IV fluids, Zofran, labs, EKG, urinalysis, chest x-ray and CT abdomen. 1010 --patient still complaining of some nausea. Denies any pain at this time. We will give a dose of Compazine. 1035 --labs and imaging reviewed. Normal white blood cell count, electrolytes. Magnesium 1.7. Troponin negative. Lipase negative. Urinalysis notes findings consistent with dehydration but no obvious infection. Chest x-ray negative. CT notes findings consistent with colitis. We will continue IV fluids and reassess. 1130 --patient feels much better and she is requesting to go home. As patient has no fever or bloody diarrhea, I do not see an indication for antibiotics for colitis at this time is agreeable. She has a follow-up appointment with her primary care doctor tomorrow. She is instructed to discuss with her doctor if her symptoms of diarrhea worsen or she develops fever or bloody diarrhea, to obtain a stool culture and consider starting antibiotics. We will send home with 1 tab of Zofran as well as prescription. She is instructed to drink plenty fluids, get plenty of rest, and return immediately to the emergency department any worsening or concerning symptoms. Medical Records Medical records reviewed: Yes I reviewed the patient's medical records. Imaging Data Radiologic Study: Radiologist's impression: XR Chest, 2 Views EXAM DATE/TIME: 08/22/2018 9:13 AM FINDINGS: Lungs: Unremarkable. No consolidation. Pleural space: Unremarkable. No pleural effusion. No pneumothorax. Heart/Mediastinum: Unremarkable. No cardiomegaly. Bones/joints: Unremarkable. IMPRESSION: No acute findings. CT Abdomen and Pelvis With Contrast EXAM DATE/TIME: 08/22/2018 9:13 AM FINDINGS: Lower thorax: No acute findings. ABDOMEN: Liver: Normal. No mass. Gallbladder and bile ducts: Normal. No calcified stones. No ductal dilation. Pancreas: Normal. No ductal dilation. Spleen: Normal. No splenomegaly. Adrenals: Normal. No mass. Kidneys and ureters: Nonspecific nodules in the right kidney 8 mm and 5 mm Stomach and bowel: Low-attenuation bowel wall thickening is seen throughout the colon consistent with colitis. Differential diagnosis includes infectious and inflammatory etiologies.. Appendix: Normal appendix PELVIS: Bladder: Unremarkable as visualized. Reproductive: Unremarkable as visualized. ABDOMEN and PELVIS: Intraperitoneal space: Normal. No free air. No significant fluid collection. Bones/joints: No acute fracture. No dislocation. Soft tissues: Unremarkable. Vasculature: Normal. No abdominal aortic aneurysm. Lymph nodes: Normal. No enlarged lymph nodes. IMPRESSION: Low-attenuation bowel wall thickening is seen throughout the colon consistent with colitis. Differential diagnosis includes infectious and inflammatory etiologies.. Lab Data Lab results reviewed: Yes I reviewed the patient's lab results. Laboratory Tests Range/Units 08/22/18 08/22/18 08/22/18 08:58 08:58 08:58 WBC (4.4-10.8) k/cumm 10.15 RBC (4.00-5.20) m/cumm 4.26 Hgb (12.0-15.5) g/dL 13.4 Hct (36.0-46.0) % 41.3 MCV (80-95) fL 96.9 H MCH (27.0-33.0) pg 31.5 MCHC (32.0-36.0) g/dL 32.4 RDW (11.7-14.6) % 14.9 H Plt Count (130-400) x1000/uL 287 MPV (8.0-11.0) fL 10.4 Immature Gran % 0.2 Neutrophils % 75.0 Lymphocytes % 18.8 Monocytes % 5.2 Eosinophils % 0.6 Basophils % 0.2 Absolute Neutrophils (1.2-6.7) k/cumm 7.61 H Absolute Lymphocytes (1.2-3.4) k/cumm 1.91 Absolute Monocytes (0.11-0.7) k/cumm 0.53 Absolute Eosinophils (0.0-0.7) k/cumm 0.06 Absolute Basophils (0.0-0.2) k/cumm 0.02 Sodium (136-145) mmol/L 143 Potassium (3.5-5.1) mmol/L 4.2 Chloride (98-107) mmol/L 105 Carbon Dioxide (21.0-32.0) mmol/L 22.7 Anion Gap (3-11) mmol/L 15.3 H BUN (7-18) mg/dL 17 Creatinine (0.55-1.02) mg/dL 0.76 Estimated GFR/1.73 m2 (mL/min/1.73m2) >= 60.00 Glucose (70-100) mg/dL 119 H Calcium (8.5-10.1) mg/dL 9.1 Magnesium (1.8-2.4) mg/dL 1.7 L Total Bilirubin (0.2-1.0) mg/dL 0.4 AST (15-37) U/L 22 ALT (12-78) U/L 23 Alkaline Phosphatase (46-116) U/L 96 Troponin I (0.00-0.06) ng/mL < 0.02 Total Protein (6.4-8.2) g/dL 7.8 Albumin (3.4-5.0) g/dL 3.7 Lipase (73-393) U/L 178 Urine Color (Yellow) Urine Clarity Urine pH (5-8) Ur Specific [place] (1.005-1.025) Urine Protein (Negative) mg/dL Urine Ketones (Negative) mg/dL Urine Blood (Negative) Urine Nitrite (Negative) Urine Bilirubin (Negative) Urine Urobilinogen (Up TO 0.2) EU/dL Ur Leukocyte Esterase (Negative) Urine RBC (0-2) Urine WBC (0-5) HPF Ur Epithelial Cells (Negative) HPF Urine Crystals (Negative) HPF Urine Bacteria (Negative) HPF Urine Casts (Negative) LPF Urine Mucus (Negative) Urine Other (Negative) Ur Culture Indicated? Urine Glucose (Negative) mg/dL Range/Units 08/22/18 09:18 WBC (4.4-10.8) k/cumm RBC (4.00-5.20) m/cumm Hgb (12.0-15.5) g/dL Hct (36.0-46.0) % MCV (80-95) fL MCH (27.0-33.0) pg MCHC (32.0-36.0) g/dL RDW (11.7-14.6) % Plt Count (130-400) x1000/uL MPV (8.0-11.0) fL Immature Gran % Neutrophils % Lymphocytes % Monocytes % Eosinophils % Basophils % Absolute Neutrophils (1.2-6.7) k/cumm Absolute Lymphocytes (1.2-3.4) k/cumm Absolute Monocytes (0.11-0.7) k/cumm Absolute Eosinophils (0.0-0.7) k/cumm Absolute Basophils (0.0-0.2) k/cumm Sodium (136-145) mmol/L Potassium (3.5-5.1) mmol/L Chloride (98-107) mmol/L Carbon Dioxide (21.0-32.0) mmol/L Anion Gap (3-11) mmol/L BUN (7-18) mg/dL Creatinine (0.55-1.02) mg/dL Estimated GFR/1.73 m2 (mL/min/1.73m2) Glucose (70-100) mg/dL Calcium (8.5-10.1) mg/dL Magnesium (1.8-2.4) mg/dL Total Bilirubin (0.2-1.0) mg/dL AST (15-37) U/L ALT (12-78) U/L Alkaline Phosphatase (46-116) U/L Troponin I (0.00-0.06) ng/mL Total Protein (6.4-8.2) g/dL Albumin (3.4-5.0) g/dL Lipase (73-393) U/L Urine Color (Yellow) Yellow Urine Clarity Clear Urine pH (5-8) 6.0 Ur Specific [place] (1.005-1.025) >= 1.030 H Urine Protein (Negative) mg/dL 100 H Urine Ketones (Negative) mg/dL >=160 H Urine Blood (Negative) Negative Urine Nitrite (Negative) Negative Urine Bilirubin (Negative) Moderate H Urine Urobilinogen (Up TO 0.2) EU/dL 0.2 Ur Leukocyte Esterase (Negative) Negative Urine RBC (0-2) 0-2 Urine WBC (0-5) HPF 3-5 Ur Epithelial Cells (Negative) HPF Moderate Urine Crystals (Negative) HPF Negative Urine Bacteria (Negative) HPF Moderate Urine Casts (Negative) LPF 0-2 hyaline Urine Mucus (Negative) Heavy Urine Other (Negative) Moderate renal Ur Culture Indicated? No/sq. contamination Urine Glucose (Negative) mg/dL Negative ECG Data Attestation: I personally reviewed and interpreted this ECG (s) as follows: Interpretation: Rate of 88, sinus, no acute ST elevation or depression. QTc 419. QRS 90. HPI General Mode of arrival: wheelchair . Date/Time Provider Initiated Documentation: 08/22/18 08:59 . Limitations to Documentation: no limitations . Information obtained by: patient . HPI Narrative: Patient is a 53-year-old female who presents to the ED with a complaint of nausea since yesterday afternoon. She denies any vomiting but does admit to crampy abdominal pain, gas and occasional minimal loose stool. She states she has been sick with cough, nasal and head congestion, and sore throat since 08/11. She states she has been taking NyQuil and Tylenol Cold and flu. She states overall the URI symptoms are better. She does also admit to intermittent crampy abdominal pain that is mainly worse with coughing. She also admits to occasional chest pain only with coughing but denies any shortness of breath. She does admit to some wheezing last night. She denies any recent antibiotics, recent travel. She states her mother and father have been sick with pneumonia recently. She also admits to intermittent lightheadedness but denies any headache. Related Data Home Medications Medication Instructions Recorded Confirmed epinephrine [EpiPen 2-Leonidas] 1 dis.syr .ROUTE DIRECTED 04/13/17 08/22/18 lisinopril 10 mg PO DAILY tab-cap 04/13/17 08/22/18 simvastatin 20 mg PO QPM 04/13/17 08/22/18 zolpidem [Ambien] 10 mg PO DAILY PRN PRN 04/13/17 08/22/18 aspirin 81 mg PO BID #30 tablet. 04/23/17 08/22/18 acetaminophen 500 mg tablet 500 mg PO BID PRN tab 04/29/18 08/22/18 stone #1 each 04/29/18 07/30/18 gabapentin 800 mg tablet 800 mg PO HS #90 tab 06/08/18 08/22/18 albuterol sulfate HFA 90 2 inh INHALATION Q4H PRN gm 06/14/18 08/22/18 mcg/actuation aerosol inhaler betamethasone dipropionate 0.05 % 1 applic TP BID PRN 06/14/18 08/22/18 topical cream hydrocodone 5 mg-acetaminophen 325 1 tab PO TID PRN tab 06/14/18 08/22/18 mg tablet metformin 1,000 mg tablet 500 mg PO BID tab 06/14/18 08/22/18 pantoprazole 40 mg tablet,delayed 40 mg PO DAILY 06/14/18 08/22/18 release baclofen 10 mg tablet 10 mg PO TID PRN 06/21/18 08/22/18 ibuprofen 600 mg tablet 600 mg PO TID PRN #90 tab 08/15/18 08/22/18 Basaglar KwikPen U-100 Insulin 18 unit SUBCUT QAM 08/22/18 08/22/18 clotrimazole 10 mg MUCOUS MEMBRANE QID 08/22/18 08/22/18 ondansetron HCl [Zofran] 4 mg PO QID PRN #6 tab 08/22/18 Previous Rx's Medication Instructions Recorded aspirin 81 mg PO BID #30 tablet. 04/23/17 stone #1 each 04/29/18 gabapentin 800 mg tablet 800 mg PO HS #90 tab 06/08/18 ibuprofen 600 mg tablet 600 mg PO TID PRN #90 tab 08/15/18 ondansetron HCl [Zofran] 4 mg PO QID PRN #6 tab 08/22/18 Allergies Allergy/AdvReac Type Severity Reaction Status Date / Time adhesive tape Allergy Intermediate Hives Unverified 08/22/18 08:51 venom-honey bee Allergy Intermediate severe Unverified 08/22/18 08:51 local reaction venom-wasp Allergy Intermediate severe Unverified 08/22/18 08:51 local reaction doxycycline Allergy Mild Unverified 08/22/18 08:51 Sulfa (Sulfonamide Allergy Mild Skin Rash Unverified 08/22/18 08:51 Antibiotics) General Stated Complaint: Nausea/Vomit/Diar KATHERINE: 3 Review of Systems Review of Systems All systems reviewed & are unremarkable except as noted in HPI and below Constitutional Reports as per HPI, Denies chills and Denies fever(s) Eyes Denies blurry vision ENT Denies dizziness, Denies sore throat and Denies throat swelling Cardiovascular Denies chest pain and Denies dyspnea Respiratory Reports cough and Denies dyspnea Gastrointestinal Reports abdominal pain, Reports diarrhea and Reports vomiting Genitourinary Denies hematuria and Denies dysuria Musculoskeletal Denies back pain and Denies numbness Integumentary/Breasts Denies lesions and Denies rash Neurologic Denies dizziness, Denies focal weakness and Denies numbness Allergic/Immunologic Denies throat swelling PFS Medical History Hypotension (Acute) Asthma Chronic pain Depression Diabetes mellitus Diarrhea Dry skin Fibromyalgia GERD (gastroesophageal reflux disease) Generalized anxiety disorder Headache Heel pain, bilateral Hematuria Hyperlipidemia Hypertension Impingement syndrome, shoulder, left Long-term insulin use Lumbar back pain Menopause syndrome Narcotic drug use Obesity Obstructive sleep apnea Skin rash Tobacco use Urinary frequency Surgical History H/O elbow surgery (Acute) H/O thumb surgery (Acute) S/P arthroscopy of left shoulder (Acute) S/P left knee arthroscopy (Acute) S/P right knee arthroscopy (Acute) H/O carpal tunnel repair (Chronic) H/O: hysterectomy (Chronic) Colonoscopy - [facility] (11/06/17) Family History Other Fibromyalgia Social History Smoking/Tobacco Use Status: Current every day Tobacco Type: cigarettes Alcohol Intake: never Drug use: Never Substance use type: does not use Household members: spouse Housing: house Number of Children: 1 current occupation: [employer] What type of physical activity do you participate in: none Do you feel safe at home: Yes Do you feel safe in your relationship?: Yes Exam Const General: cooperative, healthy appearing and no acute distress HENMT Head: normal to inspection Face and sinus: normal facial exam Eyes General: appearance normal, both eyes and all related structures EOM: EOM intact bilaterally Neck Neck: normal visual inspection and No submandibular swelling Lymphatic: no lymphadenopathy noted Chest Chest: normal inspection of the chest and no tenderness Resp Effort & Inspection: normal respiratory effort and able to speak in complete sentences Auscultation: clear to auscultation bilaterally Cardio Rate: regular rate Rhythm: regular rhythm GI Inspection: normal to inspection Palpation: soft, not firm, not rigid and tender (Across lower abdomen) Auscultation: normal bowel sounds Skin General skin exam: no rashes or lesions noted Neuro General: alert, awake and oriented x3 Cognition: normal cognition Speech: speech normal Motor: muscle tone normal throughout Sensory Exam: no sensory deficits noted Extrem General: normal to inspection, full ROM and no edema Psych Appearance: grossly normal Mental Status: mental status grossly normal Speech and Movement: speech and movement normal Affect: normal affect Course Vital Signs Temperature 97.9 F 08/22/18 08:48 Pulse 104 H 08/22/18 08:48 Respiratory Rate 16 08/22/18 08:48 Blood Pressure 144/77 H 08/22/18 08:48 Pulse Oximetry 95 08/22/18 08:48 Temperature 97.9 F 08/22/18 08:48 Temperature Source Temporal Artery Scan 08/22/18 08:48 Pulse 104 H 08/22/18 08:48 Respiratory Rate 16 08/22/18 08:48 Blood Pressure 144/77 H 08/22/18 08:48 Blood Pressure Position Sitting 08/22/18 08:48 Pulse Oximetry 95 08/22/18 08:48 Oxygen Delivery Method Room Air 08/22/18 08:48 Oxygen Flow Rate 0 08/22/18 08:48 Pain Level 0 08/22/18 08:48
[2018-08-22] MEDS: Ondansetron 4 MG/2 ML VIAL IVP (09:07)
--- NOTE | 2018-08-22 09:12 | DI.RAD_ITS ---
SYMPTOM/DIAGNOSIS: COUGH, SOB PA AND LATERAL CHEST: The heart is normal in size. The lungs are clear. The mediastinal structures and pleura appear intact. CONCLUSION: Normal chest.
[2018-08-22 09:18] LABS: Abs Immature Grans 0.02 k/cumm (0.0-0.09); Absolute Basophil Count 0.02 k/cumm (0.0-0.2); Absolute Eosinophil Count 0.06 k/cumm (0.0-0.7); Absolute Lymphocyte Count 1.91 k/cumm (1.2-3.4); Absolute Monocyte Count 0.53 k/cumm (0.11-0.7); Absolute Neutrophil Count 7.61 k/cumm (1.2-6.7); Basophils % 0.2; Eosinophils % 0.6; HCT 41.3 % (36.0-46.0); HGB 13.4 g/dL (12.0-15.5); Immature Grans % 0.2; Lymphocytes % 18.8; Mean Corp. HGB Concentration 32.4 g/dL (32.0-36.0); Mean Corpuscular Hemoglobin 31.5 pg (27.0-33.0); Mean Corpuscular Volume 96.9 fL (80-95); Mean Platelet Volume 10.4 fL (8.0-11.0); Monocytes % 5.2; Platelet Count 287 x1000/uL (130-400); RBC 4.26 m/cumm (4.00-5.20); RBC Distribution Width 14.9 % (11.7-14.6); White Blood Cell Count 10.15 k/cumm (4.4-10.8)
[2018-08-22 09:23] VITALS: RESP 18
[2018-08-22 09:28] LABS: Bilirubin Moderate (Negative); Blood Negative (Negative); Clarity Clear; Glucose Negative (Negative); Ketones >=160 mg/dL (Negative); Leukocyte Esterase Negative (Negative); Nitrite Negative (Negative); Specific Gravity >= 1.030 (1.005-1.025); Urobilinogen 0.2 EU/dL (Up TO 0.2)
[2018-08-22 09:35] LABS: ALT 23 U/L (12-78); AST 22 U/L (15-37); Albumin 3.7 g/dL (3.4-5.0); Alkaline Phosphatase 96 U/L (46-116); Anion Gap 15.3 mmol/L (3-11); BUN 17 mg/dL (7-18); Bilirubin, Total 0.4 mg/dL (0.2-1.0); CO2 22.7 mmol/L (21.0-32.0); CREATININE 0.76 mg/dL (0.55-1.02); Calcium 9.1 mg/dL (8.5-10.1); Chloride 105 mmol/L (98-107); Glucose 119 mg/dL (70-100); Potassium 4.2 mmol/L (3.5-5.1); Sodium 143 mmol/L (136-145); Total Protein 7.8 g/dL (6.4-8.2)
[2018-08-22 09:38] LABS: Epithelial Cells Moderate HPF (Negative); RBC 0-2 (0-2)
[2018-08-22 09:39] LABS: Bacteria Moderate HPF (Negative); Crystals Negative HPF (Negative); Mucus Heavy (Negative); Other Cells Moderate Renal (Negative)
[2018-08-22 09:39] LABS: Lipase 178 U/L (73-393); Magnesium 1.7 mg/dL (1.8-2.4)
[2018-08-22 09:40] LABS: C & S Indicated? No/Sq. Contamination; Casts 0-2 Hyaline LPF (Negative)
[2018-08-22 09:41] LABS: Troponin I < 0.02 ng/mL (0.00-0.06)
[2018-08-22] MEDS: Omnipaque 350 MG/ML 100 ML BTL IJ (10:00)
--- NOTE | 2018-08-22 10:02 | DI.CT_ITS ---
SYMPTOM/DIAGNOSIS: VOMITING, LOW ABD PAIN ABDOMEN AND PELVIC CT: CT examination of the abdomen and pelvis was performed with a bolus infusion of 100 cc's of Omnipaque 350. Images obtained through the lung bases are unremarkable. Liver, spleen, pancreas, gallbladder and bile ducts are unremarkable. Adrenals and kidneys appear normal with a couple of apparent incidental tiny right renal cysts. Abdominal aorta is of normal diameter and no major vascular abnormality is seen. No abdominal or pelvic adenopathy is seen. Small fat containing umbilical hernia noted. No other significant abdominal wall hernia is seen. Appendix appears normal. There is mild diffuse colonic wall thickening raising the possibility of colitis. Very subtle pericolonic fat edema may be present adjacent to the descending colon. No evidence of obstruction. CONCLUSION: Findings raising the possibility of colitis. Please correlate clinically.
--- NOTE | 2018-08-22 10:20 | DI.VRAD_ITS ---
EXAM: XR Chest, 2 Views EXAM DATE/TIME: 08/22/2018 9:13 AM CLINICAL HISTORY: 53 years old, female; Signs and symptoms; Cough and shortness of breath TECHNIQUE: Imaging protocol: XR of the chest, 2 views. COMPARISON: CR CHEST 2 VIEWS PA,LAT 05/06/2012 5:25 PM FINDINGS: Lungs: Unremarkable. No consolidation. Pleural space: Unremarkable. No pleural effusion. No pneumothorax. Heart/Mediastinum: Unremarkable. No cardiomegaly. Bones/joints: Unremarkable. IMPRESSION: No acute findings. Dictated and Authenticated by: Carmen Moody MD. Ordering:ASHLYN Trotter MD
--- NOTE | 2018-08-22 10:24 | DI.VRAD_ITS ---
EXAM: CT Abdomen and Pelvis With Contrast EXAM DATE/TIME: 08/22/2018 9:13 AM CLINICAL HISTORY: 53 years old, female; Pain; Abdominal pain; Localized; Lower; Patient HX: Lower abdominal pain, vomiting. TECHNIQUE: Imaging protocol: Axial computed tomography images of the abdomen and pelvis with intravenous contrast. Coronal and sagittal reformatted images were created and reviewed. Radiation optimization: All CT scans at this facility use at least one of these dose optimization techniques: automated exposure control; mA and/or kV adjustment per patient size (includes targeted exams where dose is matched to clinical indication); or iterative reconstruction. Contrast material: omnipaque 350 Contrast volume: 100 ml Contrast route: iv COMPARISON: No relevant prior studies available. FINDINGS: Lower thorax: No acute findings. ABDOMEN: Liver: Normal. No mass. Gallbladder and bile ducts: Normal. No calcified stones. No ductal dilation. Pancreas: Normal. No ductal dilation. Spleen: Normal. No splenomegaly. Adrenals: Normal. No mass. Kidneys and ureters: Nonspecific nodules in the right kidney 8 mm and 5 mm Stomach and bowel: Low-attenuation bowel wall thickening is seen throughout the colon consistent with colitis. Differential diagnosis includes infectious and inflammatory etiologies.. Appendix: Normal appendix PELVIS: Bladder: Unremarkable as visualized. Reproductive: Unremarkable as visualized. ABDOMEN and PELVIS: Intraperitoneal space: Normal. No free air. No significant fluid collection. Bones/joints: No acute fracture. No dislocation. Soft tissues: Unremarkable. Vasculature: Normal. No abdominal aortic aneurysm. Lymph nodes: Normal. No enlarged lymph nodes. IMPRESSION: Low-attenuation bowel wall thickening is seen throughout the colon consistent with colitis. Differential diagnosis includes infectious and inflammatory etiologies.. Dictated and Authenticated by: Carmen Moody MD. Ordering:ASHLYN Trotter MD
[2018-08-22] MEDS: Prochlorperazine 10 MG/2 ML VIAL IVP (10:41)
[2018-08-22] MEDS: Ondansetron O.D.T. 4 MG TABEF PO (11:49)
== END 2018-08-22 11:48 | disposition home or self-care (01) ==
PROVIDERS: Emergency Provider Physician Assistant; PCP Nurse Practitioner Family
DX: K52.9 Noninfective gastroenteritis and colitis, unspecified (principal); R11.10 Vomiting, unspecified; I10 Essential (primary) hypertension
CPT/HCPCS: 36415; 80053; 83690; 93005; 96361; 96374; 96375; 96376; 99285; 71046; 74177; 81003; 81015; 83735; 84484; 85025; 93010; J0780; J3490

== ENCOUNTER 2018-09-12 09:30 | Inpatient (IN) | payer MEDICARE, MEDICAID, SELFPAY ==
[2018-09-12] VITALS (153 sets, daily range): BP systolic 90–149; BP diastolic 45–116; PULSE 69–169; RESP 6–37; TEMP 36.5–37; O2SAT 82–100
--- NOTE | 2018-09-12 09:49 | DI.CT_ITS ---
SYMPTOM/DIAGNOSIS: FALL, TRAUMA NONCONTRAST HEAD CT: Comparison is made with 02 Feb 2015. No intracranial hemorrhage or skull fracture is seen. The ventricles are normal in size. There is some mucus retention in the left maxillary and left sphenoid sinus. IMPRESSION: No acute abnormality. CT CERVICAL SPINE: There is no evidence of fracture. The alignment appears normal. There are minimal degenerative changes. IMPRESSION: Negative CT cervical spine.
[2018-09-12 10:11] LABS: Abs Immature Grans 0.08 k/cumm (0.0-0.09); Absolute Eosinophil Count 0.25 k/cumm (0.0-0.7); Absolute Lymphocyte Count 1.51 k/cumm (1.2-3.4); Basophils % 0.2; Eosinophils % 1.5; HCT 37.6 % (36.0-46.0); HGB 12.2 g/dL (12.0-15.5); Immature Grans % 0.5; Lymphocytes % 9.1; Mean Corp. HGB Concentration 32.4 g/dL (32.0-36.0); Mean Corpuscular Hemoglobin 31.9 pg (27.0-33.0); Mean Corpuscular Volume 98.2 fL (80-95); Mean Platelet Volume 11.1 fL (8.0-11.0); Monocytes % 8.3; Neutrophils % 80.4; Platelet Count 277 x1000/uL (130-400); RBC 3.83 m/cumm (4.00-5.20); RBC Distribution Width 14.9 % (11.7-14.6); White Blood Cell Count 16.55 k/cumm (4.4-10.8)
[2018-09-12 10:16] LABS: Absolute Basophil Count 0.03 k/cumm (0.0-0.2); Absolute Monocyte Count 1.37 k/cumm (0.11-0.7); Absolute Neutrophil Count 13.31 k/cumm (1.2-6.7)
--- NOTE | 2018-09-12 10:17 | W.ED.GENAD ---
Discharge Plan Disposition Patient Disposition: [facility] INPATIENT Condition: Serious Discharge Details Chief Complaint: AMS/LOC Clinical Impression: Altered mental status, Foot fracture, right, Foot fracture, left Admit Date/Time: 09/12/18 13:03 Admit Provider: Nicole Nuñez Attending Provider: Nicole Nuñez Primary Care Provider: Yamile De Leon ED Provider: Miguel Vilchis Medical Decision Making 10:20 -- Patient seen on arrival with EMS. Jenae is a 53-year-old female with history of diabetes who presents with her with concern for confusion after fall in bathroom last night. Patient is altered with signs of head trauma. She does have a headache. I am concerned about acute life-threatening intracranial traumatic hemorrhage versus spontaneous subarachnoid. Plan to obtain stat CT imaging of the head. Given mechanism and altered mentation consider cervical spine fracture. Plan to obtain CT cervical spine. Patient has swelling and bruising of her feet bilaterally. Unclear etiology. Consider rhabdomyolysis. It is unclear to me how long she was on the floor the bathroom all the notes that they have been for some time. We will check a CK. Unclear etiology for syncopal episode. Consider arrhythmia. ECG reviewed and interpreted by me: Sinus rhythm 84 bpm, normal axis, QTC 390, QRS duration 88, nondiagnostic. -- Labs reviewed and MANUEL noted. Suspect prerenal. Mild elevation CK. Leukocytosis noted. -- Patient reassessed and continues to have waxing and waning altered mentation. No focal deficits. No ALEGRE or neck stiffness. CT head performed and interpreted by radiology:IMPRESSION: 1. No acute fracture of the cervical spine. 2. No subluxation or dislocation of the cervical spine. 3. Opacities in the apices may represent atelectasis or contusions. No acute intracranial hemorrhage. CT of neck interpreted by radiology: IMPRESSION: No acute intracranial hemorrhage CT chest and abd/pelv performed and interpreted by radiology: IMPRESSION: 1. Patchy bilateral groundglass opacities. Differential includes UIP, DIP , BOOP, early interstitial lung disease; alveolitis in pneumocystis pneumonia, viral pneumonia, or mycoplasmal pneumonia or ARDS; edema; hypersensitivity pneumonia; pulmonary hemorrhage; partial atelectasis. 2. 6.8 mm groundglass nodule in the right upper lobe (4:18). IMPRESSION: No acute process [in abdomen] Rt foot xray performed and interpreted by radiology: IMPRESSION: 1. Displaced fracture in the proximal aspect of the proximal phalanx of the great toe. 2. Comminuted displaced fractures of the proximal aspect of the proximal phalanx of the second toe. 3. The tarsometatarsal joint appears disrupted. There may be more than one tarsometatarsal joint which is subluxed 4. Displaced fracture of the proximal metatarsal seen best on the lateral. Made represent proximal first or second metatarsal fracture. Lt foot xray performed and interpreted by radiology:IMPRESSION: 1. Displaced fractures of necks of the second and third metatarsals. 2. Comminuted displaced fractures of the proximal fourth metatarsal. 3. There may be fractures of the proximal third metatarsal.. 4. Soft tissue swelling over the dorsum of the foot. I called and spoke with orthopedics signal constructor, Dr. Peña. I reviewed ED presentation and diagnostic results. He will review xray but no emergent surgical intervention needed. Cspine nonttp. cspine cleared by me. 12:58 -- Spoke with hospitalist - plan to admit. LP pending. 14:00 -- Additional history obtained from : patient recently dropped wood log on her foot. LP performed after obtaining informed consent from patient and . Dr. Peña called back. Having reviewed xray he is concerned that patient may require foot surgery tarsalmetasal joint disruption and requested CT foot. -- Dr. Nuñez in ED to admit patient - updated her as to ED course. HPI General Mode of arrival: ambulatory. Date/Time Provider Initiated Documentation: 09/12/18 09:49. Limitations to Documentation: no limitations. Information obtained by: patient. HPI Narrative: 53yo f with history of diabetes, obstructive sleep apnea, fibromyalgia, presents with altered mental status. History and review of systems limited secondary to altered mental status. is here and able to provide some history. notes that last night patient woke up around 2 AM and went to the bathroom and fell. She did hit her head during this fall. She was on the ground for some time apparently. responded and assisted her and noted that she was dizzy. She had been incontinent of stool on the floor. He helped her to a chair where she fell asleep. She woke up around 6 AM and was noted to be confused. He brought her in for further evaluation. Patient complains of painful swollen feet bilaterally as well as headache. Related Data Home Medications Medication Instructions Recorded Confirmed epinephrine [EpiPen 2-Leonidas] 1 dis.syr .ROUTE DIRECTED 04/13/17 08/22/18 lisinopril 10 mg PO DAILY tab-cap 04/13/17 09/12/18 simvastatin 20 mg PO QPM 04/13/17 09/12/18 zolpidem [Ambien] 10 mg PO DAILY PRN PRN 04/13/17 09/12/18 aspirin 81 mg PO BID #30 tablet. 04/23/17 09/12/18 acetaminophen 500 mg tablet 500 mg PO BID PRN tab 04/29/18 09/12/18 walker #1 each 04/29/18 07/30/18 gabapentin 800 mg tablet 800 mg PO HS #90 tab 06/08/18 08/22/18 albuterol sulfate HFA 90 2 inh INHALATION Q4H PRN gm 06/14/18 09/12/18 mcg/actuation aerosol inhaler betamethasone dipropionate 0.05 % 1 applic TP BID PRN 06/14/18 09/12/18 topical cream hydrocodone 5 mg-acetaminophen 325 1 tab PO TID PRN tab 06/14/18 09/12/18 mg tablet metformin 1,000 mg tablet 500 mg PO BID tab 06/14/18 09/12/18 pantoprazole 40 mg tablet,delayed 40 mg PO DAILY 06/14/18 09/12/18 release baclofen 10 mg tablet 10 mg PO TID PRN 06/21/18 09/12/18 ibuprofen 600 mg tablet 600 mg PO TID PRN #90 tab 08/15/18 09/12/18 Basaglsammy Brito U-100 Insulin 18 unit SUBCUT QAM 08/22/18 09/12/18 clotrimazole 10 mg MUCOUS MEMBRANE QID 08/22/18 08/22/18 ondansetron HCl [Zofran] 4 mg PO QID PRN #6 tab 08/22/18 09/12/18 Previous Rx's Medication Instructions Recorded aspirin 81 mg PO BID #30 tablet. 04/23/17 walker #1 each 04/29/18 gabapentin 800 mg tablet 800 mg PO HS #90 tab 06/08/18 ibuprofen 600 mg tablet 600 mg PO TID PRN #90 tab 08/15/18 ondansetron HCl [Zofran] 4 mg PO QID PRN #6 tab 08/22/18 Allergies Allergy/AdvReac Type Severity Reaction Status Date / Time adhesive tape Allergy Intermediate Hives Unverified 09/12/18 10:28 venom-honey bee Allergy Intermediate severe Unverified 09/12/18 10:28 local reaction venom-wasp Allergy Intermediate severe Unverified 09/12/18 10:28 local reaction doxycycline Allergy Mild Unverified 09/12/18 10:28 Sulfa (Sulfonamide Allergy Mild Skin Rash Unverified 09/12/18 10:28 Antibiotics) General Stated Complaint: AMS/LOC KATHERINE: 2 Review of Systems Review of Systems limited 2/2 altered mentation Constitutional Denies fever(s) Cardiovascular Denies chest pain PFSH Medical History Hypotension (Acute) Asthma Chronic pain Depression Diabetes mellitus Diarrhea Dry skin Fibromyalgia GERD (gastroesophageal reflux disease) Generalized anxiety disorder Headache Heel pain, bilateral Hematuria Hyperlipidemia Hypertension Impingement syndrome, shoulder, left Long-term insulin use Lumbar back pain Menopause syndrome Narcotic drug use Obesity Obstructive sleep apnea Skin rash Tobacco use Urinary frequency Surgical History H/O elbow surgery (Acute) H/O thumb surgery (Acute) S/P arthroscopy of left shoulder (Acute) S/P left knee arthroscopy (Acute) S/P right knee arthroscopy (Acute) H/O carpal tunnel repair (Chronic) H/O: hysterectomy (Chronic) Colonoscopy - MAC (11/06/17) Family History Other Fibromyalgia Social History Smoking/Tobacco Use Status: Current every day Tobacco Type: cigarettes Alcohol Intake: never Drug use: Never Substance use type: does not use Household members: spouse Housing: house Number of Children: 1 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 What type of physical activity do you participate in: none Do you feel safe at home: Yes Do you feel safe in your relationship?: Yes Exam Const General: well developed and not diaphoretic Nutritional Appearance: obese Orientation: alert, awake and confused Limitations: altered mental status HENMT Head: no Dallas's sign, no raccoon eyes and other (bruising to nose and chin) Face and sinus: abrasion (chin) Mouth: moist mucous membranes Eyes Sclera: normal sclerae Pupils: PERRL Neck Neck: trachea midline, supple and other (collar intact) Resp Auscultation: clear to auscultation bilaterally, no rales, no rhonchi and no wheezes Cardio Jugular venous pressure: no JVD Rate: regular rate and not tachycardic Rhythm: regular rhythm GI Palpation: soft, not firm, no guarding, no masses, not rigid and tender (diffuse) Auscultation: normal bowel sounds Skin General skin exam: ecchymosis (dorsal feet bilateral) Neuro General: alert, awake, oriented Patient Orientation: Person and Confused, tone normal, moves all extremities, confused and other (repetitive speech ) Cognition: abnormal cognition Motor: movement abnormality noted (general weakness) and other (no focal deficits appreciated) Sensory Exam: no sensory deficits noted Extrem General: edema Laterality: bilateral (feet with bruising) Psych Affect: blunted Course Vital Signs Temperature 37 C 09/12/18 09:47 Pulse 96 H 09/12/18 09:47 Respiratory Rate 22 09/12/18 09:47 Blood Pressure 149/69 H 09/12/18 09:47 Pulse Oximetry 95 09/12/18 09:47 Temperature 37 C 09/12/18 09:47 Temperature Source Temporal Artery Scan 09/12/18 09:47 Pulse 96 H 09/12/18 09:47 Respiratory Rate 22 09/12/18 09:47 Blood Pressure 149/69 H 09/12/18 09:47 Blood Pressure Position Supine 09/12/18 09:47 Pulse Oximetry 95 09/12/18 09:47 Oxygen Delivery Method Room Air 09/12/18 09:47 Oxygen Flow Rate 0 09/12/18 09:47 Procedures Lumbar Puncture Time Out Performed: Yes Patient Position: right lateral decubitus Skin Prep: Povidone-Iodine 1% Local Anesthetic: Lidocaine 1% Amount of anesthesia used (mL): 5 Spinal Needle Gauge: 22G Interspace Used: L3-L4 Fluid Initially Obtained: clear Complications: none Additional Comments: Patient moving during procedure.
[2018-09-12 10:27] LABS: INR 0.9 (0.9-1.1)
[2018-09-12 10:32] LABS: ALT 19 U/L (12-78); AST 18 U/L (15-37); Albumin 3.7 g/dL (3.4-5.0); Alkaline Phosphatase 82 U/L (46-116); Anion Gap 13.8 mmol/L (3-11); BUN 35 mg/dL (7-18); Bilirubin, Total 0.6 mg/dL (0.2-1.0); CO2 20.2 mmol/L (21.0-32.0); CREATININE 1.56 mg/dL (0.55-1.02); Calcium 9.5 mg/dL (8.5-10.1); Chloride 111 mmol/L (98-107); Estimated GFR 34.99 (mL/min/1.73m2); Glucose 134 mg/dL (70-100); Magnesium 2.2 mg/dL (1.8-2.4); Potassium 4.5 mmol/L (3.5-5.1); Sodium 145 mmol/L (136-145); Total Protein 7.3 g/dL (6.4-8.2)
[2018-09-12 10:38] LABS: Creatine Kinase 265 U/L (26-192); Troponin I < 0.02 ng/mL (0.00-0.06)
--- NOTE | 2018-09-12 10:38 | DI.VRAD_ITS ---
EXAM: CT Head Without Contrast EXAM DATE/TIME: 09/12/2018 9:51 AM CLINICAL HISTORY: 53 years old, female; Signs and symptoms; Other: Fall, trauma; Additional info: Fall, trauma, PT have involuntary movement , some motion due to that. TECHNIQUE: Imaging protocol: Axial computed tomography images of the head/brain without contrast. Coronal and sagittal reformatted images were created and reviewed. Radiation optimization: All CT scans at this facility use at least one of these dose optimization techniques: automated exposure control; mA and/or kV adjustment per patient size (includes targeted exams where dose is matched to clinical indication); or iterative reconstruction. COMPARISON: CT HEAD WITHOUT CONTRAST 02/02/2015 3:31 PM FINDINGS: Brain: Normal. No hemorrhage. No significant white matter disease. No edema. Ventricles: Normal. No ventriculomegaly. Bones/joints: Unremarkable. No acute fracture. Sinuses: Mild opacity in the left maxillary sinus may represent sinusitis Mastoid air cells: Visualized mastoid air cells are unremarkable. No mastoid effusion. Soft tissues: Unremarkable. IMPRESSION: No acute intracranial hemorrhage EXAM: CT Cervical Spine Without Contrast EXAM DATE/TIME: 09/12/2018 9:51 AM CLINICAL HISTORY: 53 years old, female; Signs and symptoms; Other: Fall, trauma; Additional info: Fall, trauma, PT have involuntary movement , some motion due to that. TECHNIQUE: Imaging protocol: Axial computed tomography images of the cervical spine without intravenous contrast. Coronal and sagittal reformatted images were created and reviewed. Radiation optimization: All CT scans at this facility use at least one of these dose optimization techniques: automated exposure control; mA and/or kV adjustment per patient size (includes targeted exams where dose is matched to clinical indication); or iterative reconstruction. COMPARISON: CT HEAD WITHOUT CONTRAST 02/02/2015 3:31 PM FINDINGS: Vertebrae: No acute fracture of the cervical spine. No subluxation or dislocation of the cervical spine. Anterior osteophyte formation C5 Degenerative changes in the facets at multiple levels Degenerative changes at C1/C2 Discs/Spinal canal/Neural foramina: Posterior osteophyte formation C5/C6 /C7 Soft tissues: Unremarkable. Thyroid: The thyroid is heterogeneous Lungs: Opacities in the apices may represent atelectasis or contusions. IMPRESSION: 1. No acute fracture of the cervical spine. 2. No subluxation or dislocation of the cervical spine. 3. Opacities in the apices may represent atelectasis or contusions. Dictated and Authenticated by: Carmen Moody MD. Ordering:ANAI Rivera MD
[2018-09-12] MEDS: HYDROmorphone 2 MG/ML VIAL (10:49)
[2018-09-12] MEDS: Lactated Ringers 1,000 ML 1000 ML IV ×2 (10:50→12:01)
[2018-09-12 10:57] LABS: Bilirubin Negative (Negative); Blood Small (Negative); Clarity Clear; Glucose Negative (Negative); Ketones Negative (Negative); Leukocyte Esterase Negative (Negative); Nitrite Negative (Negative); Urobilinogen 0.2 EU/dL (Up TO 0.2); pH 5.5 (5-8)
[2018-09-12 11:06] LABS: Bacteria Negative HPF (Negative); C & S Indicated? No; Casts Negative LPF (Negative); Crystals Negative HPF (Negative); Epithelial Cells Rare HPF (Negative); Mucus Trace (Negative); RBC 0-2 (0-2); WBC 0-2 HPF (0-5)
--- NOTE | 2018-09-12 11:27 | DI.CT_ITS ---
SYMPTOM/DIAGNOSIS: ALTERED MENTATION, ? CONTUSION CT NECK , ABD PAIN CT CHEST: The exam was performed after IV contrast , however, the contrast bolus is suboptimal. There is no evidence of pneumothorax, pleural or pericardial effusion. There is respiratory motion. There is bibasilar atelectasis. No focal area of consolidation is seen. No gross rib fractures are identified. The spine appears intact. IMPRESSION: Limited exam due to respiratory motion. No acute abnormality. CT ABDOMEN AND PELVIS: The exam is limited by patient motion. No spine or pelvic fracture seen. There is no free air or free fluid. A catheter is seen in the urinary bladder. The patient is status post hysterectomy. The liver, spleen, gallbladder, pancreas and adrenals are unremarkable. There are a few tiny renal cysts. There is a tiny nonobstructing stone at the upper pole of the right kidney. The aorta shows mild calcification and is normal in diameter. There is no bowel dilatation or wall thickening. There is a fat containing hernia below the umbilicus. IMPRESSION: No acute abnormality.
--- NOTE | 2018-09-12 11:47 | DI.RAD_ITS ---
SYMPTOM/DIAGNOSIS:PAIN RIGHT FOOT: There is a comminuted fracture of the base of the proximal phalanx of the 1st toe. There is also an intra-articular fracture at the base of the proximal phalanx of the 2nd toe. There is fracture of the distal 3rd metatarsal which is slightly displaced. There is disruption of the tarsal metatarsal joint with lateral displacement of the metatarsals. There are fracture fragments seen at the bases of the metatarsals. There is also a question of a fracture fragment at the lateral aspect of the cuboid. There are nondisplaced fractures seen at the tip of the medial malleolus. IMPRESSION: Lis-Demetrius fracture dislocation with lateral displacement of the metatarsals. Comminuted intra-articular fractures of the 1st and 2nd proximal phalanges. Additional fractures at the distal 3rd metatarsal, medial malleolus and lateral aspect of the cuboid.
--- NOTE | 2018-09-12 11:47 | DI.RAD_ITS ---
SYMPTOM/DIAGNOSIS: PAIN, DIFFUSE SWELLING, TRAUMA LEFT FOOT: There are fractures of the distal 2nd and 3rd metatarsals which show displacement laterally along with over-riding. There are also fractures at the proximal portions of the 3rd and 4th metatarsals. There is also an apparent fracture of the lateral aspect of the cuboid with some widening of the calcaneal cuboid joint. There is also a fracture of the 5th proximal phalanx and a nondisplaced fracture of the 4th proximal phalanx. There is significant soft tissue swelling mainly over the metatarsal region. IMPRESSION: Multiple fractures at metatarsal as well as phalanges.
[2018-09-12] MEDS: Omnipaque 350 MG/ML 50 ML BTL IJ (12:08)
--- NOTE | 2018-09-12 12:13 | DI.VRAD_ITS ---
EXAM: CT Chest With Contrast EXAM DATE/TIME: 09/12/2018 11:30 AM CLINICAL HISTORY: 53 years old, female; Signs and symptoms; Other: Altered mentation, ? contusion CT neck, abd pain TECHNIQUE: Imaging protocol: Axial computed tomography images of the chest with intravenous contrast. Coronal and sagittal reformatted images were created and reviewed. Radiation optimization: All CT scans at this facility use at least one of these dose optimization techniques: automated exposure control; mA and/or kV adjustment per patient size (includes targeted exams where dose is matched to clinical indication); or iterative reconstruction. Contrast material: OMNIPAQUE 350; Contrast volume: 50 ml; Contrast route: IV; COMPARISON: CT ABDOMEN PELVIS W 08/22/2018 9:51 AM FINDINGS: Lungs: Patchy bilateral groundglass opacities. Mild emphysematous changes. 6.8 mm groundglass nodule in the right upper lobe (4:18). Pleural space: Normal. No pneumothorax. No pleural effusion. Heart: Normal. No cardiomegaly. No pericardial effusion. Aorta: Normal. No aortic aneurysm. Lymph nodes: Unremarkable. No enlarged lymph nodes. Bones/joints: Unremarkable. No acute fracture. Soft tissues: Unremarkable. IMPRESSION: 1. Patchy bilateral groundglass opacities. Differential includes UIP, DIP , BOOP, early interstitial lung disease; alveolitis in pneumocystis pneumonia, viral pneumonia, or mycoplasmal pneumonia or ARDS; edema; hypersensitivity pneumonia; pulmonary hemorrhage; partial atelectasis.. 2. 6.8 mm groundglass nodule in the right upper lobe (4:18). EXAM: CT Abdomen and Pelvis With Contrast EXAM DATE/TIME: 09/12/2018 11:30 AM CLINICAL HISTORY: 53 years old, female; Signs and symptoms; Other: Altered mentation, ? contusion CT neck, abd pain TECHNIQUE: Imaging protocol: Axial computed tomography images of the abdomen and pelvis with intravenous contrast. Coronal and sagittal reformatted images were created and reviewed. Radiation optimization: All CT scans at this facility use at least one of these dose optimization techniques: automated exposure control; mA and/or kV adjustment per patient size (includes targeted exams where dose is matched to clinical indication); or iterative reconstruction. Contrast material: OMNIPAQUE 350; Contrast volume: 50 ml; Contrast route: IV; COMPARISON: CT ABDOMEN PELVIS W 08/22/2018 9:51 AM FINDINGS: ABDOMEN: Liver: Hepatomegaly 18 cm Gallbladder and bile ducts: Normal. No calcified stones. No ductal dilation. Pancreas: Normal. No ductal dilation. Spleen: Normal. No splenomegaly. Adrenals: Normal. No mass. Kidneys and ureters: Nonobstructing right renal calculus 7 mm low attenuation nodule right kidney Stomach and bowel: Normal. No obstruction. No mucosal thickening. Appendix: No evidence of appendicitis. PELVIS: Bladder: Patel catheter in the bladder Reproductive: Unremarkable as visualized. ABDOMEN and PELVIS: Intraperitoneal space: Normal. No free air. No significant fluid collection. Bones/joints: No acute fracture. No dislocation. Soft tissues: Ventral hernia contains inflamed and may be incarcerated. Vasculature: Normal. No abdominal aortic aneurysm. Lymph nodes: Normal. No enlarged lymph nodes. Other findings: Motion artifact degrades images IMPRESSION: No acute process Dictated and Authenticated by: Carmen Moody MD. Ordering:ANAI Rivera MD
--- NOTE | 2018-09-12 12:15 | DI.VRAD_ITS ---
EXAM: XR Left Foot Complete, 3 or more Views EXAM DATE/TIME: 09/12/2018 11:48 AM CLINICAL HISTORY: 53 years old, female; Pain and signs and symptoms; Swelling, leg or foot; Left TECHNIQUE: Imaging protocol: XR Left foot 3 or more views. COMPARISON: No relevant prior studies available. FINDINGS: Bones/joints: Displaced fractures of necks of the second and third metatarsals. Comminuted displaced fractures of the proximal fourth metatarsal. There may be fractures of the proximal third metatarsal.. Degenerative changes in the tarsal bones Soft tissues: Soft tissue swelling over the dorsum of the foot. IMPRESSION: 1. Displaced fractures of necks of the second and third metatarsals. 2. Comminuted displaced fractures of the proximal fourth metatarsal. 3. There may be fractures of the proximal third metatarsal.. 4. Soft tissue swelling over the dorsum of the foot. Dictated and Authenticated by: Carmen Moody MD. Ordering:ANAI Rivera MD
--- NOTE | 2018-09-12 12:21 | DI.VRAD_ITS ---
Addendum created by Carmen Moody MD on 09/12/2018 6:51:00 PM EDT Addendum: Minimally displaced fracture of the distal fibula Initial report created on 09/12/2018 12:20:49 PM EDT EXAM: XR Right Foot Complete, 3 or more Views EXAM DATE/TIME: 09/12/2018 12:06 PM CLINICAL HISTORY: 53 years old, female; Pain; Foot; Right TECHNIQUE: Imaging protocol: XR Right foot 3 or more views. COMPARISON: No relevant prior studies available. FINDINGS: Bones/joints: Displaced fracture in the proximal aspect of the proximal phalanx of the great toe. Comminuted displaced fractures of the proximal aspect of the proximal phalanx of the second toe. The tarsometatarsal joint appears disrupted. Displaced fracture of the proximal metatarsal seen best on the lateral. Made represent proximal first or second metatarsal fracture. Soft tissues: Normal. IMPRESSION: 1. Displaced fracture in the proximal aspect of the proximal phalanx of the great toe. 2. Comminuted displaced fractures of the proximal aspect of the proximal phalanx of the second toe. 3. The tarsometatarsal joint appears disrupted. There may be more than one tarsometatarsal joint which is subluxed 4. Displaced fracture of the proximal metatarsal seen best on the lateral. Made represent proximal first or second metatarsal fracture. Dictated and Authenticated by: Carmen Moody MD. Ordering:ANAI Rivera MD
--- NOTE | 2018-09-12 14:01 | NUR.NOTE ---
lumbar pucture done , pt toerated well. she anticipates admission . her has been at the bed side today. Nursing Note:
[2018-09-12] MEDS: Lidocaine 1% Multi-Dose 50 ML VIAL (14:05)
[2018-09-12] MEDS: Normal Saline 1,000 ML 125 ML IV (14:17)
[2018-09-12] MEDS: Albuterol 2.5 MG/3 ML INH SOLN VIAL UPD (14:18)
[2018-09-12] MEDS: Acetaminophen 325 MG TAB 650 MG PO (14:45)
[2018-09-12 14:49] LABS: Glucose (CSF) 77 mg/dL (40-70); Total Protein (CSF) 47 mg/dL (15-45)
[2018-09-12 14:59] LABS: Tube # 3
[2018-09-12 15:00] LABS: Clarity Clear; RBC 4 /mm3 (0-5); WBC 3 /mm3 (0-5); Xanthochromia Absent
[2018-09-12] MEDS: levETIRAcetam 1,000 MG in Normal Saline 100 ML 400 MG IVPB ×2 (15:40→20:23)
[2018-09-12] MEDS: HYDROmorphone 2 MG/ML VIAL 0.5 MG IVP (16:04)
[2018-09-12 16:38] LABS: Troponin I < 0.02 ng/mL (0.00-0.06)
[2018-09-12] MEDS: cefTRIAXone 1 GM/50 ML BAG IVPB (17:17)
[2018-09-12] MEDS: Pantoprazole 40 MG VIAL IVP (17:23)
[2018-09-12] MEDS: Normal Saline Flush 10 ML SYR IVP (17:23)
--- NOTE | 2018-09-12 17:51 | W.PM.HP.N ---
Date of service: 09/12/18 Time of Service: 17:51 Assessment and Plan (1) Sepsis: Current visit: Yes Status: Acute due to CAP, POA, as evidenced by leucocytosis, MANUEL, mental status changes. Blood cultures are pending. Obtain sputum culture. Check urine legionella/strep antigens. Cover empirically with azithromycin and rocephin; IVF. (2) Encephalopathy acute: Current visit: Yes Status: Acute DDx: post-concussive syndrome +/- seizures vs due to sepsis/CAP vs CO2 retention (patient refused ABG earlier today, so not proven) vs medication interaction or unintentional overdose vs B12 deficiency vs neurological Lyme (less likely; CSF not consistent with this) vs hyperammonemia due to neurontin use. The patient is on neurontin and norco, which could have contributed to CO2 retention. The patient did not use CPAP last night. Seizures are relatively high on differential. Obtaining EEG, loading with keppra, obtaining neurology consult, monitor neurochecks Q2 hours. (3) CAP (community acquired pneumonia): Current visit: Yes Status: Acute As appearance is so nonspecific and differential is broad, will trial azithromycin, rocephin, steroids and nebs. (4) COPD with acute exacerbation: Current visit: Yes Status: Acute As above (5) GI bleed due to NSAIDs: Current visit: Yes Status: Acute Start protonix 40 mg IV BID as well as carafate. Consult surgery. Monitor H/H. Avoid chemical DVT ppx. No NSAIDS. (6) MANUEL (acute kidney injury): Current visit: Yes Status: Acute Clinicaly dehydrated. Monitor I/O, daily weights. IVF. (7) Macrocytic anemia: Current visit: Yes Status: Acute There is a low B12 in 2010 in the medical record. Recheck anemia studies. Replete B12. (8) Foot fracture, right: Current visit: Yes Status: Acute multiple - see above Orthopedics and PT consulted. I question the origin of these fractures - will discuss with orthopedics (9) Foot fracture, left: Current visit: Yes Status: Acute Also multiple and as above (10) IDDM (insulin dependent diabetes mellitus): Current visit: Yes Status: Chronic Hold long acting insulin. Cover with SSI. (11) LORRI (obstructive sleep apnea): Current visit: Yes Status: Chronic Provide CPAP HS. Checking ABG. (12) Lung nodule: Current visit: Yes Status: Acute Will need outpatient follow up. Raises concerns for metastatic disease of the brain possibly contributing to her drop weakness. (13) Ambulatory dysfunction: Current visit: Yes Status: Acute PT/OT consulted I suspect the patient may require rehab (14) Macrocytosis: Current visit: Yes Status: Acute Checking anemia studies. start B12 repletion. Check TFT's (15) Tobacco abuse: Current visit: Yes Status: Acute Counselled on quitting - not ready to do so. Refused nicotine replacement. (16) GERD (gastroesophageal reflux disease): Current visit: Yes Status: Chronic PPI BID IV as above (17) Discharge planning issues: Current visit: Yes Status: Acute Full code - admission is being upgraded to ICU. may need rehab A total of 70 minutes were spent providing critical care for the patient. (18) DVT prophylaxis: Current visit: Yes Status: Acute SCD's only as hemoccult positive History of Present Illness Chief Complaint: Falls, confusion, B foot pain, twitching, cough Narrative: Ms La is a 53 year old female with PMHx of IDDM2, HTN, hyperlipidemia, fibromyalgia, chronic back pain, GERD, LORRI normally on CPAP, who was brought to [facility] ED by her this morning for confusion. The patient is able to provide some of her history, but the does have to be the predominant history provider for her. In fact, the patient refuses to talk to me without her present. The patient states that for the last couple of weeks she has had shakes in her hands and her feet and has been dropping objects. She states that nothing had changed prior to this and nothing had happened as far as trauma. She states she had been taking her medications as prescribed. Last night, around 8 pm, she states she dropped a log of firewood of her R foot (she did not think she hit her L foot). She was able to still walk on it. She rested it in a recliner hoping the pain would go away and fell asleep. She states she woke up at 2 am ( confirms this) to go to the bathroom, where she fell. She states she did not lose her consciousness and fell face forward. However, she has a relatively poor recollection of events. She was incontinent of stool. She was awake when her got there to help her up, which she could not do independently. She was a little confused. He helped her to the shower to clean up and then back to the recliner to sleep. He stated she had to walk on her hands and knees to get to the chair because the feet hurt so much. She slept without her CPAP. This morning, she was still somewhat confused and the stated he noticed some twitching in her arms and legs but also in her lips. She was unable to walk, so he again had to help her to the bathroom, but then he decided to bring her to the ED. At [facility] ED, the patient has been found to be somewhat confused and repeating herself. She is A&Ox2. Her CT head and neck are negative for a bleed. Her CT chest could be interpreted as PNA. There is no PE. She is hemoccult positive and does endorse dark stools for a long time (she cannot tell me how long). She uses ibuprofen 600 mg PO Q6 hrs at home. ED provider was concerned about her mental status changes and the leucocytosis, so an LP was performed, showing 1 neutrophil, 3 monocytes, glucose of 77 and total protein of 47, not consistent with acute meningitis. XRs of her B feet, done due to significant pain and bruising seen, showed multiple fractures in her B feet. She denied feeling unsafe at home and states that her is not abusive. She got offended at the question. Nursing in the ED does endorse witnessing uncontrollable lip movements, waxing and waning mental status and uncontrollable movements in her arms, sometimes repetitive, but never truly a tonic clonic event. She was initiated on IV keppra, and we were asked to admit the patient for further care. Review of Systems Review of Systems 12 systems reviewed. Pertinent positives and negatives are as per HPI. Additionally, endorses a headache, but no visual changes, a cough (productive, but she does not know the color). No numbness or tingling. No urinary issues. Dark stools of unknown duration, but no n/v/abdominal pain. [facility] Medical History Hypotension (Acute) Asthma Chronic pain Depression Diabetes mellitus Diarrhea Dry skin Fibromyalgia GERD (gastroesophageal reflux disease) Generalized anxiety disorder Headache Heel pain, bilateral Hematuria Hyperlipidemia Hypertension Impingement syndrome, shoulder, left Long-term insulin use Lumbar back pain Menopause syndrome Narcotic drug use Obesity Obstructive sleep apnea Skin rash Tobacco use Urinary frequency Surgical History H/O elbow surgery (Acute) H/O thumb surgery (Acute) S/P arthroscopy of left shoulder (Acute) S/P left knee arthroscopy (Acute) S/P right knee arthroscopy (Acute) H/O carpal tunnel repair (Chronic) H/O: hysterectomy (Chronic) Colonoscopy - MAC (11/06/17) Family History Other Fibromyalgia Social History Smoking/Tobacco Use Status: Current every day Tobacco Type: cigarettes Alcohol Intake: never Drug use: Never Substance use type: does not use Household members: spouse Housing: house Number of Children: 1 current occupation: [employer] What type of physical activity do you participate in: none Do you feel safe at home: Yes Do you feel safe in your relationship?: Yes Meds Home Medications Medication Instructions Recorded Confirmed Type epinephrine [EpiPen 2-Leonidas] 1 dis.syr .ROUTE DIRECTED 04/13/17 08/22/18 History lisinopril 10 mg PO DAILY tab-cap 04/13/17 09/12/18 History simvastatin 20 mg PO QPM 04/13/17 09/12/18 History zolpidem [Ambien] 10 mg PO DAILY PRN PRN 04/13/17 09/12/18 History aspirin 81 mg PO BID #30 tablet. 04/23/17 09/12/18 Rx acetaminophen 500 mg tablet 500 mg PO BID PRN tab 04/29/18 09/12/18 History walker #1 each 04/29/18 07/30/18 Rx gabapentin 800 mg tablet 800 mg PO HS #90 tab 06/08/18 08/22/18 Rx albuterol sulfate HFA 90 2 inh INHALATION Q4H PRN gm 06/14/18 09/12/18 History mcg/actuation aerosol inhaler betamethasone dipropionate 0.05 % 1 applic TP BID PRN 06/14/18 09/12/18 History topical cream hydrocodone 5 mg-acetaminophen 325 1 tab PO TID PRN tab 06/14/18 09/12/18 History mg tablet metformin 1,000 mg tablet 500 mg PO BID tab 06/14/18 09/12/18 History pantoprazole 40 mg tablet,delayed 40 mg PO DAILY 06/14/18 09/12/18 History release baclofen 10 mg tablet 10 mg PO TID PRN 06/21/18 09/12/18 History ibuprofen 600 mg tablet 600 mg PO TID PRN #90 tab 08/15/18 09/12/18 Rx Basaglsammy ChauhanPen U-100 Insulin 18 unit SUBCUT QAM 08/22/18 09/12/18 History clotrimazole 10 mg MUCOUS MEMBRANE QID 08/22/18 08/22/18 History ondansetron HCl [Zofran] 4 mg PO QID PRN #6 tab 08/22/18 09/12/18 Rx Allergies Allergy/AdvReac Type Severity Reaction Status Date / Time adhesive tape Allergy Intermediate Hives Unverified 09/12/18 10:28 venom-honey bee Allergy Intermediate severe Unverified 09/12/18 10:28 local reaction venom-wasp Allergy Intermediate severe Unverified 09/12/18 10:28 local reaction doxycycline Allergy Mild Unverified 09/12/18 10:28 Sulfa (Sulfonamide Allergy Mild Skin Rash Unverified 09/12/18 10:28 Antibiotics) Exam Narrative Exam Narrative: General: Obese female, anxious, forgetful, having difficulty remembering her address, easily upset/impulsive/irriatble, having occasional episodes of more lethargy accompanied by uncontrollable upper lip movements Neurological: A&Ox2, able to move all 4 extremities, 5/5 strength throughout, sensory intact. I am unable to fully test her EOM as the patient reports dizziness. No nystagmus. Does have occasional jerking movements sometimes in RUE, sometimes in LUE, which appear involuntary - while talking. She is able to answer questions even when having episodes of lethargy with uncontrollable lip movements Psychiatric: anxious/mildly agitated with episodes of lethargy Skin: Face with abrasions over the nose and chin, B feet with ecchymoses; R foot with an abrasion HEENT: Full EOM exam impossible, MMM, clear oropharynx, no submandibular or cervical lymphadenopathy, no goiter or JVD Cardiovascular: RRR, no m/r/g Lungs: Coarse breath sounds B Gastrointestinal: abdomen is soft, nontender, nondistended Genitourinary: has a coppola Extremities: B feet tender to touch with impressive echymoses and swelling; absent toenails and very short fingernails with evidence of biting; no clubbing or cyanosis Results Imaging Additional studies: CT head without contrast: No acute intracranial hemorrhage CT c-spine; 1. No acute fracture of the cervical spine. 2. No subluxation or dislocation of the cervical spine. 3. Opacities in the apices may represent atelectasis or contusions. CT chest: 1. Patchy bilateral groundglass opacities. Differential includes UIP, DIP , BOOP, early interstitial lung disease; alveolitis in pneumocystis pneumonia, viral pneumonia, or mycoplasmal pneumonia or ARDS; edema; hypersensitivity pneumonia; pulmonary hemorrhage; partial atelectasis.. 2. 6.8 mm groundglass nodule in the right upper lobe (4:18). CT abdomen/pelvis: No acute process XR L foot: 1. Displaced fractures of necks of the second and third metatarsals. 2. Comminuted displaced fractures of the proximal fourth metatarsal. 3. There may be fractures of the proximal third metatarsal.. 4. Soft tissue swelling over the dorsum of the foot. XR R foot: 1. Displaced fracture in the proximal aspect of the proximal phalanx of the great toe. 2. Comminuted displaced fractures of the proximal aspect of the proximal phalanx of the second toe. 3. The tarsometatarsal joint appears disrupted. There may be more than one tarsometatarsal joint which is subluxed 4. Displaced fracture of the proximal metatarsal seen best on the lateral. Made represent proximal first or second metatarsal fracture. Labs : 09/12/18 09:53 09/12/18 09:53 Laboratory Results - last 24 hr 09/12/18 09/12/18 09/12/18 09:53 09:53 09:53 WBC 16.55 H RBC 3.83 L Hgb 12.2 Hct 37.6 MCV 98.2 H MCH 31.9 MCHC 32.4 RDW 14.9 H Plt Count 277 MPV 11.1 H Immature Gran % 0.5 Neutrophils % 80.4 Lymphocytes % 9.1 Monocytes % 8.3 Eosinophils % 1.5 Basophils % 0.2 Absolute Neutrophils 13.31 H Absolute Lymphocytes 1.51 Absolute Monocytes 1.37 H Absolute Eosinophils 0.25 Absolute Basophils 0.03 Xanthochromia PT 9.0 L INR 0.9 Sodium 145 Potassium 4.5 Chloride 111 H Carbon Dioxide 20.2 L Anion Gap 13.8 H BUN 35 H Creatinine 1.56 H Estimated GFR/1.73 m2 34.99 Glucose 134 H Calcium 9.5 Magnesium 2.2 Total Bilirubin 0.6 AST 18 ALT 19 Alkaline Phosphatase 82 Creatine Kinase Troponin I < 0.02 Total Protein 7.3 Albumin 3.7 Urine Color Urine Clarity Urine pH Ur Specific [place] Urine Protein Urine Ketones Urine Blood Urine Nitrite Urine Bilirubin Urine Urobilinogen Ur Leukocyte Esterase Urine RBC Urine WBC Ur Epithelial Cells Urine Crystals Urine Bacteria Urine Casts Urine Mucus Ur Culture Indicated? Urine Glucose CSF Tube Number CSF Color CSF Clarity CSF WBC CSF RBC CSF Diff Comment CSF Glucose CSF Total Protein Patient ABO/Rh Antibody Screen 09/12/18 09/12/18 09/12/18 09:53 10:32 10:45 WBC RBC Hgb Hct MCV MCH MCHC RDW Plt Count MPV Immature Gran % Neutrophils % Lymphocytes % Monocytes % Eosinophils % Basophils % Absolute Neutrophils Absolute Lymphocytes Absolute Monocytes Absolute Eosinophils Absolute Basophils Xanthochromia PT INR Sodium Potassium Chloride Carbon Dioxide Anion Gap BUN Creatinine Estimated GFR/1.73 m2 Glucose Calcium Magnesium Total Bilirubin AST ALT Alkaline Phosphatase Creatine Kinase 265 H Troponin I Total Protein Albumin Urine Color Yellow Urine Clarity Clear Urine pH 5.5 Ur Specific [place] 1.020 Urine Protein 30 H Urine Ketones Negative Urine Blood Small H Urine Nitrite Negative Urine Bilirubin Negative Urine Urobilinogen 0.2 Ur Leukocyte Esterase Negative Urine RBC 0-2 Urine WBC 0-2 Ur Epithelial Cells Rare Urine Crystals Negative Urine Bacteria Negative Urine Casts Negative Urine Mucus Trace Ur Culture Indicated? No Urine Glucose Negative CSF Tube Number CSF Color CSF Clarity CSF WBC CSF RBC CSF Diff Comment CSF Glucose CSF Total Protein Patient ABO/Rh A Positive Antibody Screen Negative 09/12/18 09/12/18 09/12/18 13:50 13:50 16:00 WBC RBC Hgb Hct MCV MCH MCHC RDW Plt Count MPV Immature Gran % Neutrophils % Lymphocytes % Monocytes % Eosinophils % Basophils % Absolute Neutrophils Absolute Lymphocytes Absolute Monocytes Absolute Eosinophils Absolute Basophils Xanthochromia Absent PT INR Sodium Potassium Chloride Carbon Dioxide Anion Gap BUN Creatinine Estimated GFR/1.73 m2 Glucose Calcium Magnesium Total Bilirubin AST ALT Alkaline Phosphatase Creatine Kinase Troponin I < 0.02 Total Protein Albumin Urine Color Urine Clarity Urine pH Ur Specific [place] Urine Protein Urine Ketones Urine Blood Urine Nitrite Urine Bilirubin Urine Urobilinogen Ur Leukocyte Esterase Urine RBC Urine WBC Ur Epithelial Cells Urine Crystals Urine Bacteria Urine Casts Urine Mucus Ur Culture Indicated? Urine Glucose CSF Tube Number 3 CSF Color Colorless CSF Clarity Clear CSF WBC 3 CSF RBC 4 CSF Diff Comment CSF Glucose 77 H CSF Total Protein 47 H Patient ABO/Rh Antibody Screen Last Vital Signs Temp 36.6 C 09/12/18 12:13 Pulse 75 09/12/18 14:18 Resp 11 L 09/12/18 12:13 BP 139/60 09/12/18 12:13 Pulse Ox 97 09/12/18 14:18
--- NOTE | 2018-09-12 18:43 | DI.CT_ITS ---
SYMPTOM/DIAGNOSIS: RT TMT DISSOCIATION CT RIGHT FOOT: Comparison is made with plain films performed earlier the same day. There is a comminuted fracture at the base of the proximal phalanx of the 1st toe with significant impaction. There is also comminuted intra-articular fracture at the base of the 2nd proximal phalanx. There is disruption at the tarsal metatarsal joint. There are multiple fracture fragments seen at the bases of the 2nd through 4th metatarsals. There is some dorsal subluxation vs dislocation of the 2nd through 4th metatarsals as well as lateral displacement of all of the metatarsals. Small fracture fragments involving the distal portions of the cuneiforms as well as lateral aspect of the cuboid. There are nondisplaced fractures of the tip of the medial malleolus as well as nondisplaced fracture through the lateral malleolus. There is an intra-articular fracture of the anterolateral aspect of the distal tibia. No talar dome defect is seen. Heel spurs are noted. There is marked soft tissue swelling. IMPRESSION: Lisfranc fracture dislocation with lateral displacement of the metatarsals. Fractures at the bases of the 1st and 2nd proximal phalanges as well as distal tibia and distal fibula. Cuneiform and cuboid fractures are also present.
--- NOTE | 2018-09-12 18:43 | DI.CT_ITS ---
SYMPTOM/DIAGNOSIS: ? TMT DISSOCIATION CT LEFT FOOT: Comparison is made with plain films performed earlier the same day. There are displaced fractures of the distal shafts of the 2nd and 3rd metatarsals with lateral displacement and some over riding. There is a comminuted fracture at the base of the 4rh metatarsal with significant dorsal displacement of the proximal fractured portion. There are a few tiny fragmented fragments near the base of the 2nd metatarsal. There is impaction at the lateral and distal aspect of the cuboid. A tiny fracture fragment is seen at the inferior aspect of the 3rd cuneiform. There is a comminuted fracture of the distal phalanx of the 5th toe as well as a nondisplaced fracture of the shaft of the proximal phalanx of the 5th toe. A nondisplaced fracture is also seen of the 4th proximal phalanx. There is marked soft tissue swelling. Heel spurs are seen. IMPRESSION: Multiple foot fractures as mentioned above.
[2018-09-12 19:12] LABS: BE -3.7 mmol/L (-3-3); HCO3 22 mmol/L (22-28); pCO2 38 mmHg (34-47); pH 7.37 (7.35-7.45); pO2 51 mmHg (83-108); sO2 86 % (94-98); tCO2 20 mmol/L (22-29)
[2018-09-12 19:15] LABS: FIO2 R/A %; Site Left Radial
[2018-09-12] MEDS: methylPREDNISolone SUCC 125 MG VIAL 60 MG IVP (19:21)
[2018-09-12] MEDS: Cyanocobalamin 1000 MCG/ML VIAL IM/SC (19:22)
[2018-09-12] MEDS: guaiFENesin 600 MG TABCR PO (19:23)
[2018-09-12] MEDS: Simvastatin 20 MG TAB PO (19:23)
[2018-09-12] MEDS: Aspirin E.C. 81 MG TABEC PO (19:23)
--- NOTE | 2018-09-12 19:24 | DI.VRAD_ITS ---
EXAM: CT Right Lower Extremity Without Contrast, Foot EXAM DATE/TIME: 09/12/2018 5:03 PM CLINICAL HISTORY: 53 years old, female; Signs and symptoms; Other: ? Tmt dissociation; Additional info: PT unable to hold still well for exam TECHNIQUE: Imaging protocol: CT of the Right lower extremity without contrast was performed. Exam focused on the foot. Coronal and sagittal reformatted images were created and reviewed. Radiation optimization: All CT scans at this facility use at least one of these dose optimization techniques: automated exposure control; mA and/or kV adjustment per patient size (includes targeted exams where dose is matched to clinical indication); or iterative reconstruction. COMPARISON: CR XR foot RT complete 09/12/2018 12:02 PM FINDINGS: Minimally displaced fractures of the proximal first and second proximal phalanges with involvement of the metatarsal phalangeal joints. Mildly comminuted fractures of the base of the second and third metatarsals. Mild lateral subluxation of the second through fifth metatarsals. Mildly comminuted fractures of the first and second cuneiform bones. Minimally displaced fracture of the distal fibula. Fracture of the lateral aspect of the cuboid bone with minimal displacement. IMPRESSION: Multiple foot and ankle fractures. Dictated and Authenticated by: Ulices Marquez MD. Ordering:ELINA Hargrove MD
--- NOTE | 2018-09-12 19:29 | DI.VRAD_ITS ---
EXAM: CT Left Lower Extremity With Contrast, Foot EXAM DATE/TIME: 09/12/2018 5:07 PM CLINICAL HISTORY: 53 years old, female; Pain; Foot; Left; Patient HX: Recent FX; Additional info: PT unable to hold still well for exam TECHNIQUE: Imaging protocol: CT of the Left lower extremity with intravenous contrast was performed. Exam focused on the foot. Coronal and sagittal reformatted images were created and reviewed. Radiation optimization: All CT scans at this facility use at least one of these dose optimization techniques: automated exposure control; mA and/or kV adjustment per patient size (includes targeted exams where dose is matched to clinical indication); or iterative reconstruction. COMPARISON: CR XR foot LT complete 09/12/2018 11:59 AM FINDINGS: Moderately displaced fractures of the distal second and third metatarsals. Fracture of the mid distal phalanx of the little toe. Displaced fractures through the base of the fourth metatarsal. Fracture of the lateral aspect of the cuboid bone. Fracture of the inferior aspect of the lateral cuneiform. IMPRESSION: Multiple foot fractures as outlined above. Dictated and Authenticated by: Ulices Marquez MD. Ordering:ELINA Hargrove MD
--- NOTE | 2018-09-12 20:00 | W.SURGCON ---
Date of service: 09/12/18 Time of Service: 20:00 Assessment and Plan (1) Occult blood positive stool: Current visit: Yes Status: Acute 53 y/o female with multiple medical issues admitted for altered mental status, ? seizures, and multiple contusions/ bilateral feet fractures. No GI complaints at this time. Incidentally found to have hemoccult (+) stool in the ED. No signs of active bleeding at this time. She had a colonoscopy < 1 year ago which was grossly unremarkable. Random biopsies obtained but pathology results cannot be reviewed at this time. Can follow-up with surgery as an outpatient. If biopsies were unremarkable < a year ago, then unlikely to need another colonoscopy at this time. Can consider outpatient EGD. Agree with Protonix/Carafate. Nothing further to add at this time. Please reconsult as needed. History of Present Illness Chief Complaint: Altered mental status Narrative: 53 y/o female admitted through the ED earlier today with altered mental status. Chart reviewed and case discussed with Dr. Nuñez. The patient also has multiple bruises and multiple bilateral feet fractures which she attributes to falling and dropping a log on her feet. She also apparently has been exhibiting some seizure-like activity today. She was seen in the ED on 08/22/18 with nausea and diarrhea. She had mild diffuse thickening of the colon on CT which was attributed to a possible colitis. She improved and was discharged from the ED. No antibiotics prescribed from the ED. Subsequent CT abd/pelvis today does not demonstrate any signs of colitis or other acute abnormalities. She was noted to have brown stool that was hemoccult (+) on exam in the ED earlier today. Patient states that she had noted blood in her stool about 1 year ago and underwent a colonoscopy at that time that was reportedly unremarkable. Per [facility] records, she had a colonoscopy with Dr. Berrios on 11/06/17 which was grossly unremarkable. Random biopsies were obtained from the terminal ileum, colon, and rectum. Unable to retrieve those pathology results at this time. Nurse powerhouse mechanic supervisor unable to retrieve either. No office follow-up note seen in EMR. Review of Systems Constitutional Reports system reviewed and no additional complaints, except as docu Gastrointestinal Denies abdominal pain, Denies melena, Denies hematochezia, Denies constipation and Denies diarrhea Musculoskeletal Comments: bilateral foot pain/swelling [facility] Medical History Hypotension (Acute) Asthma Chronic pain Depression Diabetes mellitus Diarrhea Dry skin Fibromyalgia GERD (gastroesophageal reflux disease) Generalized anxiety disorder Headache Heel pain, bilateral Hematuria Hyperlipidemia Hypertension Impingement syndrome, shoulder, left Long-term insulin use Lumbar back pain Menopause syndrome Narcotic drug use Obesity Obstructive sleep apnea Skin rash Tobacco use Urinary frequency Surgical History H/O elbow surgery (Acute) H/O thumb surgery (Acute) S/P arthroscopy of left shoulder (Acute) S/P left knee arthroscopy (Acute) S/P right knee arthroscopy (Acute) H/O carpal tunnel repair (Chronic) H/O: hysterectomy (Chronic) Colonoscopy - [facility] (11/06/17) Family History Other Fibromyalgia Social History Smoking/Tobacco Use Status: Current every day Tobacco Type: cigarettes Alcohol Intake: never Drug use: Never Substance use type: does not use Household members: spouse Housing: house Number of Children: 1 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 What type of physical activity do you participate in: none Do you feel safe at home: Yes Do you feel safe in your relationship?: Yes Exam Const General: cooperative and no acute distress Orientation: alert HENMT Head: contusion (nose/chin) Resp Effort & Inspection: normal respiratory effort and able to speak in complete sentences Cardio Jugular venous pressure: no JVD Rate: regular rate Rhythm: regular rhythm GI Inspection: non-distended Palpation: soft, not firm, no guarding and nontender Skin General skin exam: no jaundice Other: multiple abrasions/bruises on face/extremities Results Last Vital Signs Temp 36.6 C 09/12/18 12:13 Pulse 99 H 09/12/18 18:31 Resp 17 09/12/18 18:31 BP 140/80 09/12/18 18:31 Pulse Ox 95 09/12/18 18:31 Labs : 09/12/18 09:53 09/12/18 09:53 Laboratory Results - last 24 hr 09/12/18 09/12/18 09/12/18 09:53 09:53 09:53 WBC 16.55 H RBC 3.83 L Hgb 12.2 Hct 37.6 MCV 98.2 H MCH 31.9 MCHC 32.4 RDW 14.9 H Plt Count 277 MPV 11.1 H Immature Gran % 0.5 Neutrophils % 80.4 Lymphocytes % 9.1 Monocytes % 8.3 Eosinophils % 1.5 Basophils % 0.2 Absolute Neutrophils 13.31 H Absolute Lymphocytes 1.51 Absolute Monocytes 1.37 H Absolute Eosinophils 0.25 Absolute Basophils 0.03 Xanthochromia PT 9.0 L INR 0.9 Sample Site pCO2 pO2 O2 Saturation ABG pH ABG HCO3 ABG Total CO2 ABG Base Excess FiO2 Sodium 145 Potassium 4.5 Chloride 111 H Carbon Dioxide 20.2 L Anion Gap 13.8 H BUN 35 H Creatinine 1.56 H Estimated GFR/1.73 m2 34.99 Glucose 134 H Calcium 9.5 Magnesium 2.2 Total Bilirubin 0.6 AST 18 ALT 19 Alkaline Phosphatase 82 Creatine Kinase Troponin I < 0.02 Total Protein 7.3 Albumin 3.7 Urine Color Urine Clarity Urine pH Ur Specific [place] Urine Protein Urine Ketones Urine Blood Urine Nitrite Urine Bilirubin Urine Urobilinogen Ur Leukocyte Esterase Urine RBC Urine WBC Ur Epithelial Cells Urine Crystals Urine Bacteria Urine Casts Urine Mucus Ur Culture Indicated? Urine Glucose CSF Tube Number CSF Color CSF Clarity CSF WBC CSF RBC CSF Diff Comment CSF Glucose CSF Total Protein Patient ABO/Rh Antibody Screen 09/12/18 09/12/18 09/12/18 09:53 10:32 10:45 WBC RBC Hgb Hct MCV MCH MCHC RDW Plt Count MPV Immature Gran % Neutrophils % Lymphocytes % Monocytes % Eosinophils % Basophils % Absolute Neutrophils Absolute Lymphocytes Absolute Monocytes Absolute Eosinophils Absolute Basophils Xanthochromia PT INR Sample Site pCO2 pO2 O2 Saturation ABG pH ABG HCO3 ABG Total CO2 ABG Base Excess FiO2 Sodium Potassium Chloride Carbon Dioxide Anion Gap BUN Creatinine Estimated GFR/1.73 m2 Glucose Calcium Magnesium Total Bilirubin AST ALT Alkaline Phosphatase Creatine Kinase 265 H Troponin I Total Protein Albumin Urine Color Yellow Urine Clarity Clear Urine pH 5.5 Ur Specific [place] 1.020 Urine Protein 30 H Urine Ketones Negative Urine Blood Small H Urine Nitrite Negative Urine Bilirubin Negative Urine Urobilinogen 0.2 Ur Leukocyte Esterase Negative Urine RBC 0-2 Urine WBC 0-2 Ur Epithelial Cells Rare Urine Crystals Negative Urine Bacteria Negative Urine Casts Negative Urine Mucus Trace Ur Culture Indicated? No Urine Glucose Negative CSF Tube Number CSF Color CSF Clarity CSF WBC CSF RBC CSF Diff Comment CSF Glucose CSF Total Protein Patient ABO/Rh A Positive Antibody Screen Negative 09/12/18 09/12/18 09/12/18 13:50 13:50 16:00 WBC RBC Hgb Hct MCV MCH MCHC RDW Plt Count MPV Immature Gran % Neutrophils % Lymphocytes % Monocytes % Eosinophils % Basophils % Absolute Neutrophils Absolute Lymphocytes Absolute Monocytes Absolute Eosinophils Absolute Basophils Xanthochromia Absent PT INR Sample Site pCO2 pO2 O2 Saturation ABG pH ABG HCO3 ABG Total CO2 ABG Base Excess FiO2 Sodium Potassium Chloride Carbon Dioxide Anion Gap BUN Creatinine Estimated GFR/1.73 m2 Glucose Calcium Magnesium Total Bilirubin AST ALT Alkaline Phosphatase Creatine Kinase Troponin I < 0.02 Total Protein Albumin Urine Color Urine Clarity Urine pH Ur Specific [place] Urine Protein Urine Ketones Urine Blood Urine Nitrite Urine Bilirubin Urine Urobilinogen Ur Leukocyte Esterase Urine RBC Urine WBC Ur Epithelial Cells Urine Crystals Urine Bacteria Urine Casts Urine Mucus Ur Culture Indicated? Urine Glucose CSF Tube Number 3 CSF Color Colorless CSF Clarity Clear CSF WBC 3 CSF RBC 4 CSF Diff Comment CSF Glucose 77 H CSF Total Protein 47 H Patient ABO/Rh Antibody Screen 09/12/18 19:00 WBC RBC Hgb Hct MCV MCH MCHC RDW Plt Count MPV Immature Gran % Neutrophils % Lymphocytes % Monocytes % Eosinophils % Basophils % Absolute Neutrophils Absolute Lymphocytes Absolute Monocytes Absolute Eosinophils Absolute Basophils Xanthochromia PT INR Sample Site Left radial pCO2 38 pO2 51 L O2 Saturation 86 L ABG pH 7.37 ABG HCO3 22 ABG Total CO2 20 L ABG Base Excess -3.7 L FiO2 R/a Sodium Potassium Chloride Carbon Dioxide Anion Gap BUN Creatinine Estimated GFR/1.73 m2 Glucose Calcium Magnesium Total Bilirubin AST ALT Alkaline Phosphatase Creatine Kinase Troponin I Total Protein Albumin Urine Color Urine Clarity Urine pH Ur Specific [place] Urine Protein Urine Ketones Urine Blood Urine Nitrite Urine Bilirubin Urine Urobilinogen Ur Leukocyte Esterase Urine RBC Urine WBC Ur Epithelial Cells Urine Crystals Urine Bacteria Urine Casts Urine Mucus Ur Culture Indicated? Urine Glucose CSF Tube Number CSF Color CSF Clarity CSF WBC CSF RBC CSF Diff Comment CSF Glucose CSF Total Protein Patient ABO/Rh Antibody Screen
--- NOTE | 2018-09-12 20:03 | SCONE_ITS ---
Date of service: 09/12/18 Time of Service: 20:00 Assessment and Plan (1) Occult blood positive stool: Current visit: Yes Status: Acute 53 y/o female with multiple medical issues admitted for altered mental sta tus, ? seizures, and multiple contusions/ bilateral feet fractures. No GI complaints at this time. Incidentally found to have hemoccult (+) stool in the ED. No signs of active bleeding at this time. She had a colonoscopy < 1 year ago which was grossly unremarkable. Random biopsies obtained but pathology results cannot be reviewed at this time. Can follow-up with surgery as an outpatient. If biopsies were unremarkable < a year ago, then unlikely to need another colonoscopy at this time. Can consider outpatient EGD. Agree with Protonix/Carafate. Nothing further to add at this time. Please reconsult as needed. History of Present Illness Chief Complaint: Altered mental status Narrative: 53 y/o female admitted through the ED earlier today with altered mental status. Chart reviewed and case discussed with Dr. Nuñez. The patient also has multiple bruises and multiple bilateral feet fractures which she attributes to falling and dropping a log on her feet. She also apparently has been exhibiting some seizure-like activity today. She was seen in the ED on 08/22/18 with nausea and diarrhea. She had mild diffuse thickening of the colon on CT which was attributed to a possible colitis. She improved and was discharged from the ED. No antibiotics prescribed from the ED. Subsequent CT abd/pelvis today does not demonstrate any signs of colitis or other acute abnormalities. She was noted to have brown stool that was hemoccult (+) on exam in the ED earlier today. Patient states that she had noted blood in her stool about 1 year ago and underwent a colonoscopy at that time that was reportedly unremarkable. Per [facility] records, she had a colonoscopy with Dr. Berrios on 8 which was grossly unremarkable. Random biopsies were obtained from the terminal ileum, colon, and rectum. Unable to retrieve those pathology results at this time. Nurse cellar supervisor unable to retrieve either. No office follow-up note seen in EMR. Review of Systems Constitutional Reports system reviewed and no additional complaints, except as docu Gastrointestinal Denies abdominal pain, Denies melena, Denies hematochezia, Denies constipation and Denies diarrhea Musculoskeletal Comments: bilateral foot pain/swelling [facility] Medical History Hypotension (Acute) Asthma Chronic pain Depression Diabetes mellitus Diarrhea Dry skin Fibromyalgia GERD (gastroesophageal reflux disease) Generalized anxiety disorder Headache Heel pain, bilateral Hematuria Hyperlipidemia Hypertension Impingement syndrome, shoulder, left Long-term insulin use Lumbar back pain Menopause syndrome Narcotic drug use Obesity Obstructive sleep apnea Skin rash Tobacco use Urinary frequency Surgical History H/O elbow surgery (Acute) H/O thumb surgery (Acute) S/P arthroscopy of left shoulder (Acute) S/P left knee arthroscopy (Acute) S/P right knee arthroscopy (Acute) H/O carpal tunnel repair (Chronic) H/O: hysterectomy (Chronic) Colonoscopy - [facility] (11/06/17) Family History Other Fibromyalgia Social History Smoking/Tobacco Use Status: Current every day Tobacco Type: cigarettes Alcohol Intake: never Drug use: Never Substance use type: does not use Household members: spouse Housing: house Number of Children: 1 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 What type of physical activity do you participate in: none Do you feel safe at home: Yes Do you feel safe in your relationship?: Yes Exam Const General: cooperative and no acute distress Orientation: alert HENMT Head: contusion (nose/chin) Resp Effort & Inspection: normal respiratory effort and able to speak in complete sentences Cardio Jugular venous pressure: no JVD Rate: regular rate Rhythm: regular rhythm GI Inspection: non-distended Palpation: soft, not firm, no guarding and nontender Skin General skin exam: no jaundice Other: multiple abrasions/bruises on face/extremities Results Last Vital Signs Temp 36.6 C 09/12/18 12:13 Pulse 99 H 09/12/18 18:31 Resp 17 09/12/18 18:31 BP 140/80 09/12/18 18:31 Pulse Ox 95 09/12/18 18:31 Labs : 09/12/18 09:53 09/12/18 09:53 Laboratory Results - last 24 hr 09/12/18 09/12/18 09/12/18 09:53 09:53 09:53 WBC 16.55 H RBC 3.83 L Hgb 12.2 Hct 37.6 MCV 98.2 H MCH 31.9 MCHC 32.4 RDW 14.9 H Plt Count 277 MPV 11.1 H Immature Gran % 0.5 Neutrophils % 80.4 Lymphocytes % 9.1 Monocytes % 8.3 Eosinophils % 1.5 Basophils % 0.2 Absolute Neutrophils 13.31 H Absolute Lymphocytes 1.51 Absolute Monocytes 1.37 H Absolute Eosinophils 0.25 Absolute Basophils 0.03 Xanthochromia PT 9.0 L INR 0.9 Sample Site pCO2 pO2 O2 Saturation ABG pH ABG HCO3 ABG Total CO2 ABG Base Excess FiO2 Sodium 145 Potassium 4.5 Chloride 111 H Carbon Dioxide 20.2 L Anion Gap 13.8 H BUN 35 H Creatinine 1.56 H Estimated GFR/1.73 m2 34.99 Glucose 134 H Calcium 9.5 Magnesium 2.2 Total Bilirubin 0.6 AST 18 ALT 19 Alkaline Phosphatase 82 Creatine Kinase Troponin I < 0.02 Total Protein 7.3 Albumin 3.7 Urine Color Urine Clarity Urine pH Ur Specific [place] Urine Protein Urine Ketones Urine Blood Urine Nitrite Urine Bilirubin Urine Urobilinogen Ur Leukocyte Esterase Urine RBC Urine WBC Ur Epithelial Cells Urine Crystals Urine Bacteria Urine Casts Urine Mucus Ur Culture Indicated? Urine Glucose CSF Tube Number CSF Color CSF Clarity CSF WBC CSF RBC CSF Diff Comment CSF Glucose CSF Total Protein Patient ABO/Rh Antibody Screen 09/12/18 09/12/18 09/12/18 09:53 10:32 10:45 WBC RBC Hgb Hct MCV MCH MCHC RDW Plt Count MPV Immature Gran % Neutrophils % Lymphocytes % Monocytes % Eosinophils % Basophils % Absolute Neutrophils Absolute Lymphocytes Absolute Monocytes Absolute Eosinophils Absolute Basophils Xanthochromia PT INR Sample Site pCO2 pO2 O2 Saturation ABG pH ABG HCO3 ABG Total CO2 ABG Base Excess FiO2 Sodium Potassium Chloride Carbon Dioxide Anion Gap BUN Creatinine Estimated GFR/1.73 m2 Glucose Calcium Magnesium Total Bilirubin AST ALT Alkaline Phosphatase Creatine Kinase 265 H Troponin I Total Protein Albumin Urine Color Yellow Urine Clarity Clear Urine pH 5.5 Ur Specific [place] 1.020 Urine Protein 30 H Urine Ketones Negative Urine Blood Small H Urine Nitrite Negative Urine Bilirubin Negative Urine Urobilinogen 0.2 Ur Leukocyte Esterase Negative Urine RBC 0-2 Urine WBC 0-2 Ur Epithelial Cells Rare Urine Crystals Negative Urine Bacteria Negative Urine Casts Negative Urine Mucus Trace Ur Culture Indicated? No Urine Glucose Negative CSF Tube Number CSF Color CSF Clarity CSF WBC CSF RBC CSF Diff Comment CSF Glucose CSF Total Protein Patient ABO/Rh A Positive Antibody Screen Negative 09/12/18 09/12/18 09/12/18 13:50 13:50 16:00 WBC RBC Hgb Hct MCV MCH MCHC RDW Plt Count MPV Immature Gran % Neutrophils % Lymphocytes % Monocytes % Eosinophils % Basophils % Absolute Neutrophils Absolute Lymphocytes Absolute Monocytes Absolute Eosinophils Absolute Basophils Xanthochromia Absent PT INR Sample Site pCO2 pO2 O2 Saturation ABG pH ABG HCO3 ABG Total CO2 ABG Base Excess FiO2 Sodium Potassium Chloride Carbon Dioxide Anion Gap BUN Creatinine Estimated GFR/1.73 m2 Glucose Calcium Magnesium Total Bilirubin AST ALT Alkaline Phosphatase Creatine Kinase Troponin I < 0.02 Total Protein Albumin Urine Color Urine Clarity Urine pH Ur Specific [place] Urine Protein Urine Ketones Urine Blood Urine Nitrite Urine Bilirubin Urine Urobilinogen Ur Leukocyte Esterase Urine RBC Urine WBC Ur Epithelial Cells Urine Crystals Urine Bacteria Urine Casts Urine Mucus Ur Culture Indicated? Urine Glucose CSF Tube Number 3 CSF Color Colorless CSF Clarity Clear CSF WBC 3 CSF RBC 4 CSF Diff Comment CSF Glucose 77 H CSF Total Protein 47 H Patient ABO/Rh Antibody Screen 09/12/18 19:00 WBC RBC Hgb Hct MCV MCH MCHC RDW Plt Count MPV Immature Gran % Neutrophils % Lymphocytes % Monocytes % Eosinophils % Basophils % Absolute Neutrophils Absolute Lymphocytes Absolute Monocytes Absolute Eosinophils Absolute Basophils Xanthochromia PT INR Sample Site Left radial pCO2 38 pO2 51 L O2 Saturation 86 L ABG pH 7.37 ABG HCO3 22 ABG Total CO2 20 L ABG Base Excess -3.7 L FiO2 R/a Sodium Potassium Chloride Carbon Dioxide Anion Gap BUN Creatinine Estimated GFR/1.73 m2 Glucose Calcium Magnesium Total Bilirubin AST ALT Alkaline Phosphatase Creatine Kinase Troponin I Total Protein Albumin Urine Color Urine Clarity Urine pH Ur Specific [place] Urine Protein Urine Ketones Urine Blood Urine Nitrite Urine Bilirubin Urine Urobilinogen Ur Leukocyte Esterase Urine RBC Urine WBC Ur Epithelial Cells Urine Crystals Urine Bacteria Urine Casts Urine Mucus Ur Culture Indicated? Urine Glucose CSF Tube Number CSF Color CSF Clarity CSF WBC CSF RBC CSF Diff Comment CSF Glucose CSF Total Protein Patient ABO/Rh Antibody Screen
[2018-09-12 20:12] LABS: Iron 23 ug/dL (50-175); Total Iron Binding Capacity 277 ug/dL (250-450); Transferrin Sat 8 % (15-50)
[2018-09-12 20:14] LABS: *AMPHETAMINES SCREEN URINE Negative (Negative); *BARBITURATES SCREEN URINE Negative (Negative); *BENZODIAZEPINES SCREEN URINE Negative (Negative); Cannabinoids THC Negative (Negative); Cocaine Screen,Urine Negative (Negative); METHADONE URINE SCREEN Negative (Negative); OPIATES URINE SCREEN POSITIVE (Negative)
[2018-09-12 20:15] LABS: Tricyclic Antidepressants Negative (Negative)
[2018-09-12] MEDS: AZITHROMYCIN 500 MG in Normal Saline 250 ML 250 MG IVPB (20:41)
[2018-09-12 20:46] LABS: Ferritin 22 ng/mL (8-388); Folate 18.3 ng/mL (8.6-20.0); Vitamin B12 260 pg/mL (193-986)
[2018-09-12] MEDS: Sucralfate 1 GM TAB PO (20:50)
[2018-09-12] MEDS: HYDROcodone 5/Acetaminophen 325 TAB PO (20:56)
[2018-09-12 22:25] LABS: HCT 30.7 % (36.0-46.0); HGB 9.9 g/dL (12.0-15.5)
[2018-09-12 22:37] LABS: Ammonia 15 umol/L (11-32)
[2018-09-12 22:48] LABS: Troponin I < 0.02 ng/mL (0.00-0.06)
[2018-09-13] VITALS (37 sets, daily range): BP systolic 94–133; BP diastolic 54–77; PULSE 63–96; RESP 13–30; TEMP 36–36.9; O2SAT 92–100
[2018-09-13] MEDS: HYDROcodone 5/Acetaminophen 325 TAB PO ×3 (02:12→23:02)
[2018-09-13] MEDS: Normal Saline 1,000 ML 125 ML IV ×3 (02:12→23:03)
[2018-09-13] MEDS: Pantoprazole 40 MG VIAL IVP ×2 (04:49→16:08)
[2018-09-13] MEDS: Normal Saline Flush 10 ML SYR IVP ×2 (04:50→16:09)
[2018-09-13 07:18] LABS: Abs Immature Grans 0.04 k/cumm (0.0-0.09); Absolute Basophil Count 0.02 k/cumm (0.0-0.2); Basophils % 0.2; HCT 29.4 % (36.0-46.0); HGB 9.4 g/dL (12.0-15.5); Immature Grans % 0.3; Lymphocytes % 10.3; Mean Corpuscular Hemoglobin 31.4 pg (27.0-33.0); Mean Corpuscular Volume 98.3 fL (80-95); Mean Platelet Volume 11.4 fL (8.0-11.0); Monocytes % 4.6; Neutrophils % 84.6; Platelet Count 222 x1000/uL (130-400); RBC 2.99 m/cumm (4.00-5.20); White Blood Cell Count 11.63 k/cumm (4.4-10.8)
[2018-09-13 07:32] LABS: BUN 20 mg/dL (7-18); CREATININE 0.92 mg/dL (0.55-1.02); Calcium 7.8 mg/dL (8.5-10.1); Chloride 110 mmol/L (98-107); Glucose 188 mg/dL (70-100); Potassium 4.1 mmol/L (3.5-5.1); Sodium 142 mmol/L (136-145)
[2018-09-13 07:42] LABS: Cholesterol 160 mg/dL (50-200); HDL Cholesterol 37 mg/dL (40-60); LDL CHOLESTEROL 104 mg/dL (<100); Magnesium 1.6 mg/dL (1.8-2.4); Triglyceride 120 mg/dL (30-150)
[2018-09-13 07:55] LABS: Absolute Monocyte Count 0.53 k/cumm (0.11-0.7); Absolute Neutrophil Count 9.84 k/cumm (1.2-6.7)
--- NOTE | 2018-09-13 08:00 | DI.US_ITS ---
SYMPTOMS/DIAGNOSIS: POSSIBLE SYNCOPE, UNWITNESSED FALL CAROTID ULTRASOUND: No significant plaque is visible. The velocity measurements of the common and internal carotid arteries are within the normal range. There is systolic velocity elevation in the external carotid arteries, right greater than left. Both vertebral arteries show antegrade flow. IMPRESSION: No significant internal carotid artery stenosis or plaque.
--- NOTE | 2018-09-13 08:00 | DI.MRI_ITS ---
SYMPTOMS/DIAGNOSIS: CONFUSION, SUSPICION FOR SEIZURES, UNWITNESSED FALL MRI OF THE BRAIN: Comparison is made with a head CT dated August,. T2 sagittal, T1, T2, FLAIR, diffusion and gradient-echo axial, T2 coronal and post gadolinium T1 axial and coronal sequences were performed. The exam is limited by patient motion. No intracranial hemorrhage, mass or infarct is seen. There are no areas of restricted diffusion. There are no significant white matter changes. The temporal lobes appear symmetric. The ventricles are normal in size. There are no abnormal areas of enhancement. IMPRESSION: Negative MRI of the brain.
[2018-09-13 08:05] LABS: TSH (W/Ref FT4) 0.47 uIU/mL (0.358-3.74)
--- NOTE | 2018-09-13 08:21 | INITIAL_ITS ---
- If Service Date Differs Date of service: 09/13/18 Time of Service: 08:13 Care Management Initial Assess REASON FOR HOSPITALIZATION:: Sepsis, Community acquired pneumonia, bilateral fractured feet PAST MEDICAL HISTORY/PAST SURGICAL HISTORY:: Surgical History: H/O elbow surgery , H/O thumb surgery , S/P arthroscopy of left shoulder , S/P left knee arthroscopy ,S/P right knee arthroscopy. H/O carpal tunnel repair. H/O: hysterectomy (Chronic). Colonoscopy - [facility] (11/06/17). Medical History: Hypotension (Acute), Asthma,Chronic pain,Depression,Diabetes mellitus. Diarrhea,Dry skin, Fibromyalgia, GERD (gastroesophageal reflux disease). Generalized anxiety disorder, Headache,Heel pain, bilateral Hematuria. Hyperlipidemia, Hypertension, Impingement syndrome, shoulder, left. Long-term insulin use, Lumbar back pain, Menopause syndrome. Narcotic drug use, Obesity, Obstructive sleep apnea, Skin rash. Tobacco use, Urinary frequency PREVIOUS FUNCTIONAL STATUS/SOCIAL/FAMILY SUPPORTS:: Jenae lives at home in a single family dwelling with her Taylor. While they do have a loft area, they live only on the first floor. She is currently unemployed and has been receiving disability since 2006 for fibromyalgia. She also mentioned that she had some retroactive disability benefits dating back to first grade when she was diagnosed with, but not treated for, learning disabilities. Jenae and Taylor have one daughter who lives in [place]. CURRENT FUNCTIONAL STATUS:: Jenae was sitting up in bed in the ICU. Her chin and nose have abrasions and numerous ecchymotic areas are seen on her forarms. She is receiving frequent doses of pain medication for her bilateral foot fractures and states it reduces the pain from a 10/10 to 8 or 9/10. ADVANCE DIRECTIVES:: None on file Did the patient sign up for the portal?: No CODE STATUS:: Full Code INSURANCE COVERAGE / FINANCIAL ISSUES:: Medicare. Medicaid CURRENT HOME/COMMUNITY SERVICES/EQUIPMENT:: None PRIMARY CARE PHYSICIAN:: Yamile De Leon POTENTIAL DISCHARGE NEEDS:: Jenae will likely need to go to a rehab facility upon discharge as she will be non-weight bearing postoperatively. PATIENT/FAMILY EDUCATION NEEDS:: Discharge plan, limitations, follow up plan of care, Ask Me Three. ANTICIPATED BARRIERS TO DISCHARGE:: Pain control, mobility challenges. TRANSPORTATION:: Wheelchair van or ambulance depending on postoperative restrictions. PLAN:: Jenae is receiving IV antibiotics for pneumonia and possible sepsis. She is receiving IV narcotics for pain control for her bilateral foot faractures. Surgery is planned for . When she is ready for discharge she will likely need rehab or extensive home support services at home. CM will continue to provide support to patient, family, care team and discharge
[2018-09-13] MEDS: levETIRAcetam 1,000 MG in Normal Saline 100 ML 400 MG IVPB ×2 (08:37→19:55)
[2018-09-13 08:41] LABS: Diff Comment RBC Morph Reviewed; Hypochromasia 1+
[2018-09-13] MEDS: guaiFENesin 600 MG TABCR PO ×2 (08:53→20:27)
[2018-09-13] MEDS: methylPREDNISolone SUCC 125 MG VIAL 60 MG IVP (08:53)
[2018-09-13] MEDS: Acetaminophen 500 MG TAB PO (08:54)
[2018-09-13] MEDS: Cyanocobalamin 500 MCG TAB 1000 MCG PO (08:54)
[2018-09-13] MEDS: Aspirin E.C. 81 MG TABEC PO ×2 (08:54→20:27)
[2018-09-13] MEDS: Sucralfate 1 GM TAB PO ×4 (08:54→22:58)
[2018-09-13] MEDS: Insulin Aspart 300 UNITS/3 ML PEN SC ×3 (08:55→16:59)
--- NOTE | 2018-09-13 09:43 | NUR.NOTE ---
0730 Dr. Peña in. Bilat soft splinting done by Dr. Peña with padding and large maricruz wraps. Pt sushila the actions fair, did c/o severe pain, shell to RLE during this procedure. Nursing Note:
[2018-09-13] MEDS: MAGNESIUM SULFATE 2 GM/50 ML BAG IVPB (10:30)
[2018-09-13] MEDS: Docusate Sodium 100 MG CAP PO ×2 (10:30→20:27)
[2018-09-13] MEDS: Ascorbic Acid 500 MG TAB PO ×2 (10:30→20:27)
[2018-09-13] MEDS: Ferrous Sulfate 325 MG TAB PO ×2 (10:30→20:27)
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
[2018-09-13] MEDS: LORazepam 2 MG/ML VIAL 1 MG IVP ×2 (11:13→19:29)
--- NOTE | 2018-09-13 11:51 | W.ORTHOCONSU ---
Date of service: 09/13/18 Time of Service: 07:51 History of Present Illness Chief Complaint: Bilateral foot pain Narrative: Jenae is a 53-year-old who reports a rather bizarre story of frequent falls in the last day. Starting on Thursday she feels like she dropped a log on her left toe. She reports is being over the lateral aspect of the left foot. She had difficulty with ambulating at this time but was able to manage. However, the pain continued to increase. Eventually, she got to the point where she was having a hard time walking and started to fall. She reports falling multiple times. During these falls is when she feels like she injured the right foot. She tried to manage at home but was unable to. She had to walk on her hands and knees and was unable to place weight onto either foot, especially the right. She fell asleep on the floor multiple occasions and there was some concern that she seemed to be more confused than usual. This led her to bring her into the emergency department on the afternoon of September 12. While in the emergency department she had waxing and waning alertness and confusion. There was also some random motions observed by emergency staff concerning for either seizure or neurologic symptom. She currently reports pain in both feet. The right foot is much worse than left. She denies any numbness or tingling. She denies any other injuries or falls. I did question her about the mechanism of injury. She denies any partner abuse or other mitigating circumstances leading to these injuries. She denies any other higher impact injury such as a fall down the stairs or in a car. She does have known knee pain and was actually scheduled for knee replacement in the coming month. She did hit her head and lose consciousness. She has multiple abrasions. Consults Consult date: 09/12/18 Requesting physician: Nicole Nuñez Consult Reason Bilateral foot fracture Assessment and Plan (1) Dislocation of tarsometatarsal joint of right foot: Current visit: Yes Status: Acute This is a very severe injury to the right foot. I was quite honest with Jenae that the mechanism still does not seem to fit. Nevertheless, she has a subluxed tarsometatarsal joint with multiple foot fractures about the right foot. Nonoperative treatment is likely to fail due to the malalignment of the midfoot and the loss of the transverse arch. Therefore, surgery would be recommended. However, she has significant swelling about the foot. I placed her into a compressive Chao type dressing to hopefully help with the swelling. She is to keep the leg strictly elevated. There is also the sore over the medial aspect the foot which looks more than a day old. There are no signs of surrounding tissue necrosis and this will have to be followed. Given the amount of swelling she is definitely not ready for surgery at this time. There is a very complex case which will require complex surgical planning with significant risk including wound breakdown and infection. She will be kept in the Chao dressing today and rechecked on Thursday with possible trip to the OR on . Qualifiers: Encounter type: initial encounter Qualified Code(s): S93.324A - Dislocation of tarsometatarsal joint of right foot, initial encounter (2) Foot fracture, left: Current visit: Yes Status: Acute Qualifiers: Encounter type: initial encounter Fracture type: closed Qualified Code(s): S92.902A - Unspecified fracture of left foot, initial encounter for closed fracture (3) Foot fracture, right: Current visit: Yes Status: Acute Jenae has multiple fracture of the left foot. These are similarly complex like the right side. The tarsometatarsal joint complex does appear to be intact unlike the right side. The fourth metatarsal is displaced dorsally and therefore should be reduced. I once again discussed possible treatment options and do believe that surgical intervention would make the most sense in the situation. However, we will need to wait for swelling to come down. A compressive Chao dressing was applied. She will keep the foot elevated. We will recheck the foot in 2 days. Qualifiers: Encounter type: initial encounter Fracture type: closed Qualified Code(s): S92.901A - Unspecified fracture of right foot, initial encounter for closed fracture Review of Systems Review of Systems All systems reviewed & are unremarkable except as noted in HPI and below PFSH Medical History Hypotension (Acute) Asthma Chronic pain Depression Diabetes mellitus Diarrhea Dry skin Fibromyalgia GERD (gastroesophageal reflux disease) Generalized anxiety disorder Headache Heel pain, bilateral Hematuria Hyperlipidemia Hypertension Impingement syndrome, shoulder, left Long-term insulin use Lumbar back pain Menopause syndrome Narcotic drug use Obesity Obstructive sleep apnea Skin rash Tobacco use Urinary frequency Surgical History H/O elbow surgery (Acute) H/O thumb surgery (Acute) S/P arthroscopy of left shoulder (Acute) S/P left knee arthroscopy (Acute) S/P right knee arthroscopy (Acute) H/O carpal tunnel repair (Chronic) H/O: hysterectomy (Chronic) Colonoscopy - MAC (11/06/17) Family History Other Fibromyalgia Social History Smoking/Tobacco Use Status: Current every day Tobacco Type: cigarettes Alcohol Intake: never Drug use: Never Substance use type: does not use Household members: spouse Housing: house Number of Children: 1 current occupation: [employer] What type of physical activity do you participate in: none Do you feel safe at home: Yes Do you feel safe in your relationship?: Yes Exam Const General: cooperative and no acute distress Nutritional Appearance: average body habitus Orientation: alert, awake, oriented to person and oriented to place HENMT Head: abrasion and contusion Extrem Other: Evaluation of the bilateral upper extremities show full range of motion. She has no significant pain with passive nor active range of motion. Evaluation of the right leg shows no pain internal and external rotation of the hip. No pain to palpation over the proximal femur or the hip area. There is a very superficial abrasion seen over the anterior aspect of the right knee without active bleeding. No effusion to the right knee. No pain to palpation of the right knee. There is notable ecchymosis and swelling to the right foot. There is an area of wound compromise seen over the medial aspect of the midfoot. There is a blackened eschar in this area which would suggest it is at least a few days old. There are no signs of infection. Ecchymosis is seen in various stages of resorption. The foot appears grossly normal in its appearance. There is gross pain to palpation throughout the foot. She endorses full sensation over the deep and superficial peroneal nerves and the tibial nerve. DP pulse is very difficult to palpate but the toes appear warm and well perfused. The foot is compressible although it is quite swollen and full. There is pain with any direct pressure of the foot. Evaluation the left leg shows no pain to internal and external rotation of the hip. No pain with palpation of the left knee except over the medial joint line. No significant effusion. Again, the left foot has swelling and ecchymosis. This is not as bad as the right side. There is ecchymosis primarily seen laterally. There is exquisite pain to palpation overlying the lateral border of the foot and the fourth metatarsal. There is significant forefoot swelling but the foot is compressible. She endorses full sensation over the superficial deep peroneal nerve and tibial nerve. Faintly palpable DP pulse, palpable PT pulse. The foot is warm and well perfused. Results Last Vital Signs Temp 36.6 C 09/13/18 07:15 Pulse 74 09/13/18 08:01 Resp 13 09/13/18 08:01 BP 124/65 09/13/18 08:01 Pulse Ox 97 09/13/18 08:01 Labs : 09/13/18 06:15 09/13/18 06:15 Laboratory Results - last 24 hr 09/12/18 09/12/18 09/12/18 09:53 13:50 13:50 WBC RBC Hgb Hct MCV MCH MCHC RDW Plt Count MPV Immature Gran % Neutrophils % Lymphocytes % Monocytes % Eosinophils % Basophils % Absolute Neutrophils Absolute Lymphocytes Absolute Monocytes Absolute Eosinophils Absolute Basophils Differential Comment RBC Morphology Hypochromasia Xanthochromia Absent Sample Site pCO2 pO2 O2 Saturation ABG pH ABG HCO3 ABG Total CO2 ABG Base Excess FiO2 Sodium Potassium Chloride Carbon Dioxide Anion Gap BUN Creatinine Estimated GFR/1.73 m2 Glucose Calcium Magnesium Iron TIBC Transferrin % Sat Ferritin 22 Ammonia Troponin I Triglycerides Total Cholesterol LDL Cholesterol Direct HDL Cholesterol Vitamin B12 260 Folate 18.3 TSH CSF Tube Number 3 CSF Color Colorless CSF Clarity Clear CSF WBC 3 CSF RBC 4 CSF Diff Comment CSF Glucose 77 H CSF Total Protein 47 H Urine Opiates Screen Urine Methadone Screen Ur Barbiturates Screen Ur Tricyclics Screen Ur Amphetamines Screen U Benzodiazepines Scrn Urine Cocaine Screen Ur THC Screen 09/12/18 09/12/18 09/12/18 16:00 16:00 18:40 WBC RBC Hgb Hct MCV MCH MCHC RDW Plt Count MPV Immature Gran % Neutrophils % Lymphocytes % Monocytes % Eosinophils % Basophils % Absolute Neutrophils Absolute Lymphocytes Absolute Monocytes Absolute Eosinophils Absolute Basophils Differential Comment RBC Morphology Hypochromasia Xanthochromia Sample Site pCO2 pO2 O2 Saturation ABG pH ABG HCO3 ABG Total CO2 ABG Base Excess FiO2 Sodium Potassium Chloride Carbon Dioxide Anion Gap BUN Creatinine Estimated GFR/1.73 m2 Glucose Calcium Magnesium Iron 23 L TIBC 277 Transferrin % Sat 8 L Ferritin Ammonia Troponin I < 0.02 Triglycerides Total Cholesterol LDL Cholesterol Direct HDL Cholesterol Vitamin B12 Folate TSH CSF Tube Number CSF Color CSF Clarity CSF WBC CSF RBC CSF Diff Comment CSF Glucose CSF Total Protein Urine Opiates Screen Positive Urine Methadone Screen Negative Ur Barbiturates Screen Negative Ur Tricyclics Screen Negative Ur Amphetamines Screen Negative U Benzodiazepines Scrn Negative Urine Cocaine Screen Negative Ur THC Screen Negative 09/12/18 09/12/18 09/12/18 19:00 22:20 22:20 WBC RBC Hgb 9.9 L D Hct 30.7 L MCV MCH MCHC RDW Plt Count MPV Immature Gran % Neutrophils % Lymphocytes % Monocytes % Eosinophils % Basophils % Absolute Neutrophils Absolute Lymphocytes Absolute Monocytes Absolute Eosinophils Absolute Basophils Differential Comment RBC Morphology Hypochromasia Xanthochromia Sample Site Left radial pCO2 38 pO2 51 L O2 Saturation 86 L ABG pH 7.37 ABG HCO3 22 ABG Total CO2 20 L ABG Base Excess -3.7 L FiO2 R/a Sodium Potassium Chloride Carbon Dioxide Anion Gap BUN Creatinine Estimated GFR/1.73 m2 Glucose Calcium Magnesium Iron TIBC Transferrin % Sat Ferritin Ammonia Troponin I < 0.02 Triglycerides Total Cholesterol LDL Cholesterol Direct HDL Cholesterol Vitamin B12 Folate TSH CSF Tube Number CSF Color CSF Clarity CSF WBC CSF RBC CSF Diff Comment CSF Glucose CSF Total Protein Urine Opiates Screen Urine Methadone Screen Ur Barbiturates Screen Ur Tricyclics Screen Ur Amphetamines Screen U Benzodiazepines Scrn Urine Cocaine Screen Ur THC Screen 09/12/18 09/13/18 09/13/18 22:20 06:15 06:15 WBC RBC Hgb Hct MCV MCH MCHC RDW Plt Count MPV Immature Gran % Neutrophils % Lymphocytes % Monocytes % Eosinophils % Basophils % Absolute Neutrophils Absolute Lymphocytes Absolute Monocytes Absolute Eosinophils Absolute Basophils Differential Comment RBC Morphology Hypochromasia Xanthochromia Sample Site pCO2 pO2 O2 Saturation ABG pH ABG HCO3 ABG Total CO2 ABG Base Excess FiO2 Sodium 142 Potassium 4.1 Chloride 110 H Carbon Dioxide 21.0 Anion Gap 11.0 BUN 20 H D Creatinine 0.92 D Estimated GFR/1.73 m2 >= 60.00 Glucose 188 H Calcium 7.8 L Magnesium 1.6 L Iron TIBC Transferrin % Sat Ferritin Ammonia 15 Troponin I Triglycerides 120 Total Cholesterol 160 LDL Cholesterol Direct 104 H HDL Cholesterol 37 L Vitamin B12 Folate TSH 0.47 CSF Tube Number CSF Color CSF Clarity CSF WBC CSF RBC CSF Diff Comment CSF Glucose CSF Total Protein Urine Opiates Screen Urine Methadone Screen Ur Barbiturates Screen Ur Tricyclics Screen Ur Amphetamines Screen U Benzodiazepines Scrn Urine Cocaine Screen Ur THC Screen 09/13/18 06:15 WBC 11.63 H RBC 2.99 L Hgb 9.4 L Hct 29.4 L MCV 98.3 H MCH 31.4 MCHC 32.0 RDW 15.0 H Plt Count 222 MPV 11.4 H Immature Gran % 0.3 Neutrophils % 84.6 Lymphocytes % 10.3 Monocytes % 4.6 Eosinophils % 0.0 Basophils % 0.2 Absolute Neutrophils 9.84 H Absolute Lymphocytes 1.20 Absolute Monocytes 0.53 Absolute Eosinophils 0.00 Absolute Basophils 0.02 Differential Comment Rbc morph reviewed RBC Morphology See below Hypochromasia 1+ Xanthochromia Sample Site pCO2 pO2 O2 Saturation ABG pH ABG HCO3 ABG Total CO2 ABG Base Excess FiO2 Sodium Potassium Chloride Carbon Dioxide Anion Gap BUN Creatinine Estimated GFR/1.73 m2 Glucose Calcium Magnesium Iron TIBC Transferrin % Sat Ferritin Ammonia Troponin I Triglycerides Total Cholesterol LDL Cholesterol Direct HDL Cholesterol Vitamin B12 Folate TSH CSF Tube Number CSF Color CSF Clarity CSF WBC CSF RBC CSF Diff Comment CSF Glucose CSF Total Protein Urine Opiates Screen Urine Methadone Screen Ur Barbiturates Screen Ur Tricyclics Screen Ur Amphetamines Screen U Benzodiazepines Scrn Urine Cocaine Screen Ur THC Screen Imaging Imaging Studies: X-ray of the right foot shows a displaced intra-articular proximal pharynx fracture of the great toe. There is also lateral subluxation of the first second and third metatarsal bones in relationship to the midfoot. There is also comminution and some apparent fracturing of the second metatarsal base. X-ray of the left foot. This demonstrates displaced fractures of the second and third metatarsal necks. There is also an apparent fracture of the base of the fourth metatarsal with some comminution seen over the lateral aspect of the cuboid. CT scan with 3D reconstructions of the right foot demonstrates a Lisfranc dissociation with displacement of the first second and third metatarsals. The fourth may also be slightly laterally subluxed but the fifth appears to be located. There is also a severely impacted and comminuted intra-articular fracture of the base of the proximal phalanx of the great toe. A large portion of the articular surface is impacted greater than 1 cm into the proximal phalanx shaft. There is comminution seen at the second metatarsal base as well as the medial and middle cuneiforms. There is also some mild comminution seen over the lateral aspect of the cuboid. CT scan with 3D reconstructions of the left foot demonstrates a comminuted fracture of the base of the fourth metatarsal with dorsal discs placement of the fracture fragment. The overall alignment of the Lisfranc joint appears to be intact without any tarsometatarsal subluxation appreciated. There are 100% displaced second and third metatarsal neck fractures. There appears to be a mildly comminuted and minimally displaced fracture of the cuboid.
--- NOTE | 2018-09-13 12:30 | OTIE_ITS ---
Occupational Therapy Notes Inpatient Occupational Therapy Evaluation Date: 09/13/18 Referring Doctor:Nicole Nuñez MD OT Orders: Eval and Treat Precautions: NWB (B) LE, Fall, Standard PATIENT PROFILE/ADMITTING DIAGNOSIS: Pt is a 53 year old female who was admitted through the ER s/p a fall in her bathroom with altered mental status, (B) foot fx's. Past Medical History: Medical History Hypotension (Acute) Asthma Chronic pain Depression Diabetes mellitus Diarrhea Dry skin Fibromyalgia GERD (gastroesophageal reflux disease) Generalized anxiety disorder Headache Heel pain, bilateral Hematuria Hyperlipidemia Hypertension Impingement syndrome, shoulder, left Long-term insulin use Lumbar back pain Menopause syndrome Narcotic drug use Obesity Obstructive sleep apnea Skin rash Tobacco use Urinary frequency Surgical History H/O elbow surgery (Acute) H/O thumb surgery (Acute) S/P arthroscopy of left shoulder (Acute) S/P left knee arthroscopy (Acute) S/P right knee arthroscopy (Acute) H/O carpal tunnel repair (Chronic) H/O: hysterectomy (Chronic) Colonoscopy - MAC (11/06/17) Current Functional Limitations: Unable to WB on (B) LE, (B) foot fx's, decreased functional mobility, inability to perform ADLs sitting on side of bed, decreased functional activity tolerance. Social History/Home Situation: Pt lives in a private home with her and 4 dogs. She reports that she was totally (I) with all ADLs/IADLs prior to admission to [facility]. Pt reports to OT that she fx her (B) feet by dropping a piece of wood on her feet and states that she dropped it on her (R) and it bounced on to her (L). It is noted in pts EMR that she had fallen in the bathroom. Pt reports that she was able to drive previously for community ambulation. Pt states that she has a walk in shower which she sits on the floor to perform bathing routine. OT does recommend a shower bench to increase pts safety during bathing routine. Equipment owned/DME: None. SUBJECTIVE: Pt was sitting in bed with (B) legs propped on pillows and (B) feet in wrappings. She is agreeable to OT session and reports that she fell flat on her face after falling. It is notable to distinguish that this is not what she told OT at start of session. OBJECTIVE: General Observation: Telemetry, BP cuff, IV (R) UE Mental Status: Alert and answers questions when asked. However pt is not clear on how injury occurred. Pain: Pt c/o pain and states that she needs vicodin but her PCP told her that this was not an option. Pt states that she is not happy and will be in chronic pain forever if she does not get her vicodin. ROM: RUE AROM WFL L UE AROM WFL STRENGTH: RUE 4/5 throughout globally LUE 4/5 throughout globally FUNCTIONAL MOBILITY/ADLS: No functional mobility able to be performed due to (B) fx's. BATHING Sitting in bed with max (A) set up Bathing UE (I) Bathing LE (I) to knees DRESSING Sitting in bed Dressing UE (I) [facility] gown. Dressing LE NT GROOMING Sitting in bed, max (A) set up (I) brushing teeth BALANCE: Static sitting Good Dynamic Sitting Good Static Standing NT Dynamic Standing NT SPECIAL TESTS: Daily Activity Limitations Standardized Measure [facility] AM -PAC ?6 clicks? Daily Activity Inpatient Short Form: Raw score: 17 Standardized score: 37.26 CMS score: 50.11% INFORMED CONSENT/EDUCATION: Pt instructed in purpose of OT Consult and plan of care. ASSESSMENT: Patient is a 53-year-old female referred to occupational therapy services with diagnosis of altered mental status, s/p (B) foot fx. Patient presents with clinical signs and symptoms consistent with dx, as demonstrated by the following impairment level findings: decreased mobility, ROM/strength of (B) LE, NWB due to (B) foot fxs, decreased functional mobility, decreased activity tolerance, poor historian to event details. Impairments are contributing to the following functional limitations: Unable to WB on (B) LE, (B) foot fx's, decreased functional mobility, inability to perform ADLs sitting on side of bed, decreased functional activity tolerance. OT recommends short term stay at SNF for increased rehabilitation and safety awareness during ADL/IADL routines when medically cleared per MD. AMPAC score 17, CMS score 50.11% Patient is assessed as a Moderate 79726 complexity based on the following: History: See Above Examination: See above Presentation: Evolving Decision Making: AMPAC score 17, CMS score 50.11% GOALS Goals x1 week in hospital setting 1. Transfers mod (A) 2. Dressing sitting on side of bed, min (A) 3. Bathing Sitting on side of bed, Min (A) 4. Toileting commode mod (A) 5. Eating (I) 6. Brushing teeth and hair (I) sitting on side of bed. PLAN OF CARE/TREATMENT PLAN: 1x/day, 5 days/ week x 1week Initiate Occupational Therapy Services for bathing, dressing, grooming, toileting, eating, transfer training. DISCHARGE RECOMMENDATIONS OT recommends short term stay at SNF for increased rehabilitation and safety awareness during ADL/IADL routines when medically cl eared per MD. TREATMENT TIME/MINUTES/CODES [id number], [id number], 35 minutes (09:00) Zulma Farrar OTR/L [facility]
--- NOTE | 2018-09-13 12:38 | DI.RAD_ITS ---
SYMPTOMS/DIAGNOSIS: F/U PNEUMONIA AP AND LATERAL CHEST: Comparison is made with July,. The lungs are not well inflated on either view, but appear grossly clear. The heart size is within normal limits. There is an old right upper rib fracture. There has been prior resection of the distal left clavicle. IMPRESSION: No acute abnormality.
--- NOTE | 2018-09-13 14:53 | CHAPLAIN ---
Jenae was in bed, her was visiting with her when I stopped in. Jenae was pleasant, and soft spoken. Her told me they were friends of Rev. Gustavo Camara and has purchased a cabin from him. I introduced myself, explained my role and offered support.
--- NOTE | 2018-09-13 15:40 | NCONE_ITS ---
Date of service: 09/13/18 Time of Service: 15:40 Assessment and Plan (1) Twitching: Current visit: Yes Status: Acute Ms. La is a 53 year-old, right-handed woman admitted with altered mental status, new bilateral foot fractures, sepsis with pneumonia, acute kidney injury, a new lung nodule, and questionable seizure activity. Based on the description of the events, this activity does not sound like seizures to me. It sounds more like a tremor or myoclonic jerk that likely occurred secondary to her toxic-metabolic disturbances including hypoxia, MANUEL, pain, sepsis, and polypharmacy. Agree with obtaining an EEG which if normal, would then recommend weaning off of Keppra 1000mg daily x3 days, then off. Please call with any further questions or concerns. She was scheduled to follow-up in clinic this week for her chronic pain which will be re-scheduled to after her discharge. . History of Present Illness Chief Complaint: ?seizure Narrative: Handedness: right. HPI: Ms. La is a 53 year-old, right-handed woman with a past medical history of hypertension, hyperlipidemia, type 2 diabetes, fibromyalgia, insomnia, obstructive sleep apnea, and migraine headaches whom I met late last year for chronic low back pain occasionally radiating down the right leg associated with positional numbness and tingling and intermittent weakness in the right leg resulting in frequent falls. She was admitted 09/12/18 with a diagnosis of sepsis secondary to pneumonia, bilateral foot fractures, acute kidney injury, and questionable seizures. I was consulted for the questionable seizures. Her story has changed several times this admission. The initial story entailed her waking up on 09/12 at approxim ately 2am at which time she went to the bathroom. While in the bathroom she had an event of loss of consciousness resulting in a fall, hitting her head, and stool incontinence. She was unable to get up on her own. She was found sometime later by her . She then crawled to her recliner due to severe foot pain and promptly went back to sleep. Upon waking in the morning, she appeared confused and thus was brought to [facility] for further care. She reported that she may have dropped a log on one of her feet. Today, she tells me a different story. First, she believes she may have dropped a log on both of her feet. When she awoke at 2am, she had to crawl to the bathroom because her feet were already hurting her. In the process of crawling, she suffered stool incontinence. While in the bathroom, she reports dizziness which caused her to fall. She hit her face. She does not think that she had any loss of consciousness. She attempted to get up, but was unable. In the process of attempting to get up, she reports hitting her head on the ground 50 times. Again, without loss of consciousness. During this time, she and her became aware of what they are calling seizure activity. She describes minor twitches/jerks of the arms and legs synchronously and asynchronously, without loss of awareness. Neither she nor her had noticed this activity previously, though previous notes indicate that it may have been occurring for weeks. It continued in the ER and in the beginning of her admission. She was started on Keppra 1000mg BID. The activity has not recurred today. She has no prior history of seizures or a family history of seizures. In the ER, she was hypoxic with an O2 sat in the mid-80s and a PO2 of 51. Her WBC was elevated at 16.55 and creatinine at 1.56. Her CK was 265 and trop x3 was negative. In addition to the bilateral foot fractures, she was also noted to have a new lung nodule. Her UDS was positive for opioids for which she has an Rx. She underwent an LP which showed 3W, 3R, 77G, and 47P. Her UA was unremarkable. She underwent a brain MRI w/wo contrast earlier today which I was able to view and was normal. Consults Requesting physician: Nicole Nuñez Review of Systems Review of Systems All systems reviewed & are unremarkable except as noted in HPI and below PFSH Medical History Hypotension (Acute) Asthma Chronic pain Depression Diabetes mellitus Diarrhea Dry skin Fibromyalgia GERD (gastroesophageal reflux disease) Generalized anxiety disorder Headache Heel pain, bilateral Hematuria Hyperlipidemia Hypertension Impingement syndrome, shoulder, left Long-term insulin use Lumbar back pain Menopause syndrome Narcotic drug use Obesity Obstructive sleep apnea Skin rash Tobacco use Urinary frequency Surgical History H/O elbow surgery (Acute) H/O thumb surgery (Acute) S/P arthroscopy of left shoulder (Acute) S/P left knee arthroscopy (Acute) S/P right knee arthroscopy (Acute) H/O carpal tunnel repair (Chronic) H/O: hysterectomy (Chronic) Colonoscopy - MAC (11/06/17) Family History Other Fibromyalgia Social History Smoking/Tobacco Use Status: Current every day Tobacco Type: cigarettes Alcohol Intake: never Drug use: Never Substance use type: does not use Household members: spouse Housing: house Number of Children: 1 current occupation: [employer] Support [employer] What type of physical activity do you participate in: none Do you feel safe at home: Yes Do you feel safe in your relationship?: Yes Visit Medication and Allergies Active Medications Generic Name Dose Route Start Last Admin Trade Name Freq PRN Reason Stop Dose Admin Acetaminophen 325 - 650 mg 09/12/18 13:02 Tylenol PO Q4H PRN PRN Hydrocodone Bitart/Acetaminophen 1 tab 09/12/18 17:56 09/13/18 02:12 [place]thing 5/325 PO 1 tab TID PRN PRN Administration Al Hydrox/Mg Hydrox/Simethicone 30 ml 09/12/18 13:02 Mylanta Liquid PO Q2H PRN PRN Albuterol Sulfate 2.5 mg 09/12/18 13:02 09/12/18 14:18 Proventil Updraft UPD 2.5 mg Q2H PRN PRN Administration Albuterol/Ipratropium 3 ml 09/12/18 18:54 Duoneb Updraft UPD Q6H PRN PRN Ascorbic Acid 500 mg 09/13/18 08:30 09/13/18 10:30 Vitamin C PO 500 mg BID DAYANA Administration Aspirin 81 mg 09/12/18 20:00 09/13/18 08:54 Ecotrin PO 81 mg BID DAYANA Administration Cyanocobalamin 1,000 mcg 09/13/18 08:30 09/13/18 08:54 Vitamin B-12 PO 1,000 mcg DAILY DAYANA Administration Dextrose 0 gm 09/12/18 13:07 Insta-Glucose PO DIRECTED PRN Dextrose/Water 0 gm 09/12/18 13:07 IVP DIRECTED PRN Dimethicone/Zinc Oxide 0 gm 09/12/18 13:02 Althea Protect Cream TP PRN PRN Docusate Sodium 100 mg 09/12/18 13:02 Colace PO TID PRN PRN Docusate Sodium 100 mg 09/13/18 08:30 09/13/18 10:30 Colace PO 100 mg BID DAYANA Administration Ferrous Sulfate 325 mg 09/13/18 08:30 09/13/18 10:30 Iron PO 325 mg BID [facility] Administration Guaifenesin 600 mg 09/12/18 20:00 09/13/18 08:53 Mucinex PO 600 mg BID [facility] Administration Hydromorphone HCl 0.5 mg 09/12/18 16:00 09/12/18 16:04 Dilaudid Injection IVP 0.5 mg Q2H PRN PRN Administration Sodium Chloride 1,000 mls @ 125 mls/hr 09/12/18 13:15 09/13/18 13:15 Saline 1000ml Bag IV 125 mls/hr [facility]FUSION [facility] Infusion Levetiracetam 1,000 mg/ Sodium 110 mls @ 400 mls/hr 09/12/18 20:00 09/13/18 09:04 Chloride IVPB Infused Q12H [facility] Infusion Ceftriaxone Sodium/Dextrose 1 gm in 50 mls @ 100 mls/hr 09/12/18 16:00 09/12/18 19:33 Rocephin IVPB Infused Q24H [facility] Infusion Azithromycin 500 mg/ Sodium 250 mls @ 250 mls/hr 09/12/18 18:00 09/12/18 23:04 Chloride IVPB Infused Q24H [facility] Infusion IV Miscellaneous Supplies 1 each 09/12/18 10:00 IV DIRECTED [facility] Insulin Aspart 0 units 09/12/18 17:00 09/13/18 13:06 Novolog Flexpen SC 1 units 0800,1200,1700 [facility] Administration Protocol Lorazepam 1 mg 09/12/18 18:43 09/13/18 11:13 Ativan Injection IVP 1 mg DIRECTED PRN Administration Lorazepam 2 mg 09/12/18 19:34 Ativan Injection IVP Q4H PRN PRN Magnesium Hydroxide 30 ml 09/12/18 13:02 Milk Of Magnesia PO DAILY PRN PRN Methylprednisolone Sodium Succinate 40 mg 09/13/18 20:00 Solu-Medrol IVP Q12H DAYANA Ondansetron HCl 4 mg 09/12/18 17:56 Zofran PO QID PRN PRN nausea and vomiting Pantoprazole Sodium 40 mg 09/12/18 17:00 09/13/18 04:49 Protonix Injection IVP 40 mg Q12H [facility] Administration Simvastatin 20 mg 09/12/18 20:00 09/12/18 19:23 Zocor PO 20 mg QPM DAY[facility] Administration Sodium Chloride 0 ml 09/12/18 09:49 09/13/18 04:50 Saline Flush 10 Ml Syringe IVP 10 ml PRN PRN Administration Sucralfate 1 gm 09/12/18 22:00 09/13/18 13:06 Carafate PO 1 gm AC & HS DAYANA Administration Allergies adhesive tape Allergy (Intermediate, Unverified 09/12/18 10:28) Hives venom-honey bee Allergy (Intermediate, Unverified 09/12/18 10:28) severe local reaction venom-wasp Allergy (Intermediate, Unverified 09/12/18 10:28) severe local reaction doxycycline Allergy (Mild, Unverified 09/12/18 10:28) Sulfa (Sulfonamide Antibiotics) Allergy (Mild, Unverified 09/12/18 10:28) Skin Rash Exam Narrative Exam Narrative: Physical Exam: Gen: Patient of apparent stated age, NAD Head and face: no facial or cranial abnormalities, poor dentition Neck: Supple, no meningismus, no occipital tenderness CV: RRR Resp: CTA B/L Abd: soft, nontender, nondistended, +BS Ext: Bilateral LE wrapped. Neuro Exam: Language: fluency, naming, repetition, and comprehension intact; Mental Status: AAO, current events muddied; Speech: no dysarthria Cranial nerves: Funduscopy: not performed CN II: visual ford intact CN III, IV, : extraocular movements intact, no nystagmus, pupils symmetric and reactive to light CN V: face sensation intact to LT and PP CN VII: no facial asymmetry noted CN VIII: hearing intact bilaterally CN IX, X: palate rises symmetrically CN XI: trapezius/SCM 5/5 bilaterally CN XII: protrudes tongue symmetrically Sensory: intact to LT and PP in all extremities Motor: LE not tested. bulk and tone intact in the UE. Fine motor movements intact bilaterally. No pronator drift. Strength 5/5 in the UEs. Reflexes: 2+ at the biceps, triceps, and brachioradialis; reduced at the left patella; all else not tested due to her injuries. Coordination: FTN intact bilaterally Gait: deferred Results Last Vital Signs Temp 36.9 C 09/13/18 13:32 Pulse 85 09/13/18 14:01 Resp 15 09/13/18 14:01 BP 116/63 09/13/18 14:01 Pulse Ox 98 09/13/18 13:32 Labs : 09/13/18 06:15 09/13/18 06:15 Laboratory Results - last 24 hr 09/12/18 09/12/18 09/12/18 09:53 16:00 16:00 WBC RBC Hgb Hct MCV MCH MCHC RDW Plt Count MPV Immature Gran % Neutrophils % Lymphocytes % Monocytes % Eosinophils % Basophils % Absolute Neutrophils Absolute Lymphocytes Absolute Monocytes Absolute Eosinophils Absolute Basophils Differential Comment RBC Morphology Hypochromasia Sample Site pCO2 pO2 O2 Saturation ABG pH ABG HCO3 ABG Total CO2 ABG Base Excess FiO2 Sodium Potassium Chloride Carbon Dioxide Anion Gap BUN Creatinine Estimated GFR/1.73 m2 Glucose Calcium Magnesium Iron 23 L TIBC 277 Transferrin % Sat 8 L Ferritin 22 Ammonia Troponin I < 0.02 Triglycerides Total Cholesterol LDL Cholesterol Direct HDL Cholesterol Vitamin B12 260 Folate 18.3 TSH Urine Opiates Screen Urine Methadone Screen Ur Barbiturates Screen Ur Tricyclics Screen Ur Amphetamines Screen U Benzodiazepines Scrn Urine Cocaine Screen Ur THC Screen 09/12/18 09/12/18 09/12/18 18:40 19:00 22:20 WBC RBC Hgb Hct MCV MCH MCHC RDW Plt Count MPV Immature Gran % Neutrophils % Lymphocytes % Monocytes % Eosinophils % Basophils % Absolute Neutrophils Absolute Lymphocytes Absolute Monocytes Absolute Eosinophils Absolute Basophils Differential Comment RBC Morphology Hypochromasia Sample Site Left radial pCO2 38 pO2 51 L O2 Saturation 86 L ABG pH 7.37 ABG HCO3 22 ABG Total CO2 20 L ABG Base Excess -3.7 L FiO2 R/a Sodium Potassium Chloride Carbon Dioxide Anion Gap BUN Creatinine Estimated GFR/1.73 m2 Glucose Calcium Magnesium Iron TIBC Transferrin % Sat Ferritin Ammonia Troponin I < 0.02 Triglycerides Total Cholesterol LDL Cholesterol Direct HDL Cholesterol Vitamin B12 Folate TSH Urine Opiates Screen Positive Urine Methadone Screen Negative Ur Barbiturates Screen Negative Ur Tricyclics Screen Negative Ur Amphetamines Screen Negative U Benzodiazepines Scrn Negative Urine Cocaine Screen Negative Ur THC Screen Negative 09/12/18 09/12/18 09/13/18 22:20 22:20 06:15 WBC RBC Hgb 9.9 L D Hct 30.7 L MCV MCH MCHC RDW Plt Count MPV Immature Gran % Neutrophils % Lymphocytes % Monocytes % Eosinophils % Basophils % Absolute Neutrophils Absolute Lymphocytes Absolute Monocytes Absolute Eosinophils Absolute Basophils Differential Comment RBC Morphology Hypochromasia Sample Site pCO2 pO2 O2 Saturation ABG pH ABG HCO3 ABG Total CO2 ABG Base Excess FiO2 Sodium Potassium Chloride Carbon Dioxide Anion Gap BUN Creatinine Estimated GFR/1.73 m2 Glucose Calcium Magnesium 1.6 L Iron TIBC Transferrin % Sat Ferritin Ammonia 15 Troponin I Triglycerides 120 Total Cholesterol 160 LDL Cholesterol Direct 104 H HDL Cholesterol 37 L Vitamin B12 Folate TSH 0.47 Urine Opiates Screen Urine Methadone Screen Ur Barbiturates Screen Ur Tricyclics Screen Ur Amphetamines Screen U Benzodiazepines Scrn Urine Cocaine Screen Ur THC Screen 09/13/18 09/13/18 06:15 06:15 WBC 11.63 H RBC 2.99 L Hgb 9.4 L Hct 29.4 L MCV 98.3 H MCH 31.4 MCHC 32.0 RDW 15.0 H Plt Count 222 MPV 11.4 H Immature Gran % 0.3 Neutrophils % 84.6 Lymphocytes % 10.3 Monocytes % 4.6 Eosinophils % 0.0 Basophils % 0.2 Absolute Neutrophils 9.84 H Absolute Lymphocytes 1.20 Absolute Monocytes 0.53 Absolute Eosinophils 0.00 Absolute Basophils 0.02 Differential Comment Rbc morph reviewed RBC Morphology See below Hypochromasia 1+ Sample Site pCO2 pO2 O2 Saturation ABG pH ABG HCO3 ABG Total CO2 ABG Base Excess FiO2 Sodium 142 Potassium 4.1 Chloride 110 H Carbon Dioxide 21.0 Anion Gap 11.0 BUN 20 H D Creatinine 0.92 D Estimated GFR/1.73 m2 >= 60.00 Glucose 188 H Calcium 7.8 L Magnesium Iron TIBC Transferrin % Sat Ferritin Ammonia Troponin I Triglycerides Total Cholesterol LDL Cholesterol Direct HDL Cholesterol Vitamin B12 Folate TSH Urine Opiates Screen Urine Methadone Screen Ur Barbiturates Screen Ur Tricyclics Screen Ur Amphetamines Screen U Benzodiazepines Scrn Urine Cocaine Screen Ur THC Screen
[2018-09-13] MEDS: cefTRIAXone 1 GM/50 ML BAG IVPB (16:07)
[2018-09-13] MEDS: HYDROmorphone 2 MG/ML VIAL 0.5 MG IVP (19:02)
[2018-09-13] MEDS: AZITHROMYCIN 500 MG in Normal Saline 250 ML 250 MG IVPB (19:02)
[2018-09-13] MEDS: Ondansetron 4 MG TAB PO (19:30)
[2018-09-13] MEDS: methylPREDNISolone SUCC 40 MG VIAL IVP (19:55)
[2018-09-13] MEDS: Simvastatin 20 MG TAB PO (20:28)
[2018-09-14] VITALS (25 sets, daily range): BP systolic 98–136; BP diastolic 52–78; PULSE 57–85; RESP 13–33; TEMP 36.6–37.1; O2SAT 90–96
[2018-09-14] MEDS: Ondansetron 4 MG TAB PO ×3 (02:22→16:02)
[2018-09-14] MEDS: HYDROmorphone 2 MG/ML VIAL 0.5 MG IVP ×3 (02:22→16:02)
[2018-09-14] MEDS: Normal Saline Flush 10 ML SYR IVP ×5 (02:23→17:17)
[2018-09-14] MEDS: Sucralfate 1 GM TAB PO ×3 (06:45→15:45)
[2018-09-14] MEDS: Normal Saline 1,000 ML 125 ML IV (06:45)
[2018-09-14] MEDS: Pantoprazole 40 MG VIAL IVP ×2 (06:47→17:17)
[2018-09-14] MEDS: HYDROcodone 5/Acetaminophen 325 TAB PO ×3 (06:51→17:17)
[2018-09-14 07:13] LABS: Abs Immature Grans 0.07 k/cumm (0.0-0.09); Absolute Lymphocyte Count 1.23 k/cumm (1.2-3.4); Absolute Monocyte Count 0.77 k/cumm (0.11-0.7); Absolute Neutrophil Count 9.89 k/cumm (1.2-6.7); HCT 29.4 % (36.0-46.0); HGB 9.3 g/dL (12.0-15.5); Immature Grans % 0.6; Lymphocytes % 10.3; Mean Corp. HGB Concentration 31.6 g/dL (32.0-36.0); Mean Corpuscular Hemoglobin 30.9 pg (27.0-33.0); Mean Corpuscular Volume 97.7 fL (80-95); Mean Platelet Volume 11.1 fL (8.0-11.0); Monocytes % 6.4; Neutrophils % 82.7; Platelet Count 221 x1000/uL (130-400); RBC 3.01 m/cumm (4.00-5.20); RBC Distribution Width 14.7 % (11.7-14.6); White Blood Cell Count 11.96 k/cumm (4.4-10.8)
[2018-09-14 07:23] LABS: Anion Gap 9.6 mmol/L (3-11); BUN 17 mg/dL (7-18); CO2 21.4 mmol/L (21.0-32.0); CREATININE 0.76 mg/dL (0.55-1.02); Calcium 7.6 mg/dL (8.5-10.1); Chloride 110 mmol/L (98-107); Glucose 154 mg/dL (70-100); Sodium 141 mmol/L (136-145)
--- NOTE | 2018-09-14 08:03 | PDOC.CMPRO ---
- If Service Date Differs Date of service: 09/14/18 Time of Service: 08:04 Care Management Progress Note S/O:Jenae was sitting up in bed during CM visit. She informed me that plans were underway for her to be transferred to [facility] for the surgery on her feet. She is requesting that she be allowed to have a cigarette outside before the ambulance takes her to [facility]. A:Jenae is a 53 year old woman with multiple medical problems admitted with community acquired pneumonia, sepsis and bilateral fractured feet. P:Jenae is receiving IV antibiotics for pneumonia and possible sepsis. She is receiving IV narcotics for pain control for her bilateral foot fractures. Surgery was planned for , however she will likely be transferred to [facility] for the procedures today or tomorrow. will continue to provide support to patient, family, care team and discharge
[2018-09-14] MEDS: methylPREDNISolone SUCC 40 MG VIAL IVP (08:34)
[2018-09-14] MEDS: guaiFENesin 600 MG TABCR PO (08:35)
[2018-09-14] MEDS: Cyanocobalamin 500 MCG TAB 1000 MCG PO (08:35)
[2018-09-14] MEDS: Aspirin E.C. 81 MG TABEC PO (08:35)
[2018-09-14] MEDS: Ascorbic Acid 500 MG TAB PO (08:35)
[2018-09-14] MEDS: Docusate Sodium 100 MG CAP PO (08:35)
[2018-09-14] MEDS: Ferrous Sulfate 325 MG TAB PO (08:35)
[2018-09-14] MEDS: levETIRAcetam 1,000 MG in Normal Saline 100 ML 400 MG IVPB (08:37)
[2018-09-14] MEDS: Insulin Aspart 300 UNITS/3 ML PEN SC ×3 (08:37→17:18)
[2018-09-14] MEDS: Mylanta Suspension 30 ML CUP PO (10:49)
[2018-09-14 10:59] LABS: Lyme Ab w Rflx to Lyme Confirm Negative
[2018-09-14 12:12] LABS: ALT 19 U/L (12-78); AST 13 U/L (15-37); Albumin 2.6 g/dL (3.4-5.0); Alkaline Phosphatase 55 U/L (46-116); Bilirubin, Direct 0.05 mg/dL (0.00-0.20); Bilirubin, Total 0.2 mg/dL (0.2-1.0); Total Protein 5.8 g/dL (6.4-8.2)
[2018-09-14] MEDS: Prochlorperazine 5 MG TAB PO (12:37)
--- NOTE | 2018-09-14 12:41 | PHARADMIT ---
Admission Pharmacy Clinical Review unwitnessed fall, closed head injury,Encephalopathy, Bilateral Foot Fx's Code Status Full Code Current Weight Wgt-91.1 kg Renally Cleared and Narrow Therapeutic Index Meds CrCl~ 62.77mL/min Meds-OK QTc Value / Action Taken QTc-425 na BP Control, Fever BP-128/63 Tmax- 36.6C Electrolytes reviewed Na- 141 K+4.0 Mag- 2.0 DVT Prophylaxis ASA, SCDs Opiate Usage / Scheduled Bowel Regimen Ordered Yes Yes Plt/SCr for Heparin / Enoxaparin Plts-221 SCr-0.76 INR for Warfarin inr-0.9 H/H stable, WBC/Bands H&H- 9.3/29.4 WBC-11.96 Antibiotic appropriateness Azithromycin. Rocephin Cultures and Sensitivities Blood-No growth, CSF-NO GROWH, sPUTUM-PENDING Surgical ABX d/c within 24 hr na DM control / Insulin Dosing BG- 154 Aspart, Heart Failure (Check EF%) (JUAN C's, B-Block, Diuretics) None IV to PO Switch No Home Meds Reviewed Yes Home Meds Not Ordered Baclofen, Diprosone, EpiPen, Gabapentin, Ambien, Lotrimin, Ibuprofen,BasalGlargine, Metformin, Meloxicam, Comments Keppra IV
--- NOTE | 2018-09-14 13:49 | W.PM.DS.N ---
Date of service: 09/14/18 Time of Service: 13:49 DS: Diagnosis Discharge Diagnosis (1) Sepsis: Status: Acute (2) CAP (community acquired pneumonia): Status: Acute (3) COPD with acute exacerbation: Status: Acute (4) Dislocation of tarsometatarsal joint of right foot: Status: Acute (5) Foot fracture, right: Status: Acute (6) Foot fracture, left: Status: Acute (7) Encephalopathy acute: Status: Resolved Asessment and Plan: post-concussive state (8) Twitching: Status: Acute Asessment and Plan: Unable to get an EEG until 09/14/18; on keppra empirically (9) Occult blood positive stool: Status: Acute (10) GERD (gastroesophageal reflux disease): Status: Chronic (11) IDDM (insulin dependent diabetes mellitus): Status: Chronic (12) MANUEL (acute kidney injury): Status: Acute (13) Tobacco abuse: Status: Acute (14) Lung nodule: Status: Acute (15) LORRI (obstructive sleep apnea): Status: Chronic Asessment and Plan: on CPAP (16) Macrocytic anemia: Status: Acute Asessment and Plan: B12 and iron deficiency anemia, hemoccult positive (17) Unwitnessed fall: Status: Acute Asessment and Plan: possible syncope (18) Closed head injury: Status: Acute (19) Ambulatory dysfunction: Status: Acute Discharge Plan Disposition Patient Disposition: [facility] Condition: Serious Discharge Details Reason For Visit: UNWITNESSED FALL,CLSD HEAD INJ,ENCEPHALOPATHY,FOOT Admit Date/Time: 09/12/18 13:03 Admit Provider: Nicole Nuñez Attending Provider: Nicole Nuñez Primary Care Provider: Yamile De Leon [facility] Course Hospital Course: Ms La is a 53 year old female with PMHx of IDDM2, HTN, hyperlipidemia, chronic pain, fibromyalgia, chronic pain with chronic opioid use, LORRI normally on CPAP, GERD, admitted to [facility] on 09/12/18 after an unwitnessed fall/falls in her bathroom and presenting with sepsis due to CAP, mild acute exacerbation of COPD, closed head injury, encephalopathy, thought to be due to a post-concussive syndrome, but with suspicion of seizures (no tonic clonic events witnessed; lip twitching noted in ED), Multiple B foot fractures, and MANUEL. The history provided by the patient on admission was that the day prior to presentation she had dropped a log of firewood on her feet at 8 pm on 09/11/18. She does not recall the exact details of what happened at 2 am the following day, when she fell in the bathroom, but did have an episode of fecal incontinence then. She was unable to bear weight, ambulating on hands and knees to get back into her chair. Her took her to the ED on 09/12 as she was still unable to walk and, evidently, fell again. Patent was confused, intermittently lethargic in the ED, repeating herself and having occasional unilateral arm and lip twitching. She was afebrile, but did have a leucocytosis. Lumbar puncture was performed in the ED to ensure the patient did not have meningitis and was negative. She was found to have multiple fractures in her Bilateral feet, as indicated in imaging results below. She was admitted to the ICU with neurology and orthopedic consults, initiated on IVF, empiric azithromycin, rocephin, IV steroids, nebs, and empiric keppra while awaiting an EEG. We will not be able to obtain an EEG at [facility] until 09/15/18, so it has not been done yet. Patient's mental status returned to normal within 24 hours. Her baseline mental status does involve difficulty with naming the date as she also has a diagnosis of learning disability. While initially she was mildly hypoxemic per ABG, this resolved by hospital day 2. She was evaluated by orthopedics (Dr Peña), who believes that the patient requires a very complex surgical fixation of her B feet, best performed at a tertiary care facility, after consulting with Dr Riley of trauma surgery at [facility]. Dr Javad Urban of orthopedics accepts the patient in transfer to [facility]. She is on her third day of azithromycin/rocephin today. Her blood cultures show no growth to date. Her CSF cultures show no growth to date. Her sputum culture is pending. She is not requiring oxygen. Both of her feet are splinted. It is strongly recommended that the patient have a medicine consult to keep following all of her other medical conditions. Consider neurology consultation and EEG at [facility]. She no longer requires ICU or meets sepsis criteria. Her MANUEL has resolved; Cr is 0.76 today, down from 1.56 on admission. She is hemoccult positive, but no active bleeding has been noticed. The patient reports dark stools at home, which we have not noticed. Her H/H has been around 9 for the last 24 hrs. While it was 12.2 on admission, it is believed that the patient was dehydrated and hemoconcentrated at that time. She is on PPI IV BID and carafate. We held her NSAIDS. She was evaluated by general surgery for this, but is not felt to require urgent intervention. She should certainly follow up for this as an outpatient. We appreciate the assistance of our [facility] colleagues and wish this patient well! Home Meds and New Rx's Prescriptions: New acetaminophen [Tylenol] 325 mg Tablet 325 - 650 mg PO Q4H PRN PRNQty: 0 RF: 0 ipratropium-albuterol 0.5 mg-3 mg(2.5 mg base)/3 mL Solution For Nebulization 3 ml UPD Q6H PRN PRNQty: 0 RF: 0 albuterol sulfate 2.5 mg /3 mL (0.083 %) Solution For Nebulization 2.5 mg UPD Q2H PRN PRNQty: 0 RF: 0 prochlorperazine maleate 5 mg Tablet 5 mg PO Q6H PRN PRNQty: 0 RF: 0 sucralfate 1 gram Tablet 1 g PO AC & HS Qty: 0 RF: 0 pantoprazole [Protonix] 40 mg Recon Soln 40 mg IVP Q12H Qty: 0 RF: 0 Nicotrol 10 mg Cartridge 10 mg Inhalation Q2H PRN PRNQty: 0 RF: 0 magnesium hydroxide [Milk of Magnesia] 400 mg/5 mL Suspension 30 ml PO DAILY PRN PRNQty: 0 RF: 0 cyanocobalamin (vitamin B-12) [Vitamin B-12] 500 mcg Tablet 1,000 mcg PO DAILY Qty: 0 RF: 0 ascorbic acid (vitamin C) [Vitamin C] 500 mg Tablet 500 mg PO BID Qty: 0 RF: 0 hydromorphone 2 mg/mL Solution 0.5 mg IVP Q2H PRN PRNQty: 0 RF: 0 ferrous sulfate 325 mg (65 mg iron) Tablet 325 mg PO BID Qty: 0 RF: 0 azithromycin [Zithromax] 500 mg Recon Soln 500 mg IVPB Q24H Qty: 0 RF: 0 docusate sodium [Colace] 100 mg Capsule 100 mg PO TID PRN PRNQty: 0 RF: 0 docusate sodium [Colace] 100 mg Capsule 100 mg PO BID Qty: 0 RF: 0 alum-mag hydroxide-simeth [Mag-Al Plus] 200-200-20 mg/5 mL Suspension 30 ml PO Q2H PRN PRNQty: 0 RF: 0 Novolog Flexpen U-100 Insulin 100 unit/mL Insulin Pen subcut 0800,1200,1700 Qty: 0 RF: 0 ceftriaxone in dextrose,iso-os 1 gram/50 mL Piggyback 1 g IVPB Q24H Qty: 0 RF: 0 levetiracetam [Keppra] 500 mg/5 mL Solution 1,000 mg IVPB Q12H Qty: 0 RF: 0 Solu-Medrol (PF) 40 mg/mL Recon Soln 40 mg IVP Q12H Qty: 0 RF: 0 guaifenesin [Mucinex] 600 mg Tablet Extended Release 12hr 600 mg PO BID Qty: 0 RF: 0 Continued walker misc .ROUTE .MEDSUPPLY Qty: 1 RF: 0 pantoprazole 40 mg tablet,delayed release (DR/EC) 40 mg PO DAILY RF: 0 betamethasone dipropionate 0.05 % cream 1 applic TP BID PRNRF: 0 hydrocodone-acetaminophen 5-325 mg tablet 1 tab PO TID PRNRF: 0 albuterol sulfate 90 mcg/actuation HFA aerosol inhaler 2 inh Inhalation Q4H PRNRF: 0 simvastatin 20 MG tablet 20 mg PO QPM RF: 0 epinephrine [EpiPen 2-Leonidas] 0.3 MG/0.3 ML auto-injector 1 dis.syr .Route DIRECTED RF: 0 aspirin 81 MG tablet,delayed release (DR/EC) 81 mg PO BID Qty: 30 RF: 0 clotrimazole 10 mg Pablito 10 mg MUCOUS MEMBRANE QID RF: 0 ondansetron HCl [Zofran] 4 mg tablet 4 mg PO QID PRN (Reason: nausea and vomiting) Qty: 6 RF: 0 Discontinued acetaminophen [Tylenol Extra Strength] 500 mg tablet 500 mg PO BID PRNRF: 0 gabapentin 800 mg tablet 800 mg PO HS Qty: 90 RF: 3 baclofen 10 mg tablet 10 mg PO TID PRNRF: 0 lisinopril 10 MG tablet 10 mg PO DAILY RF: 0 ibuprofen 600 mg tablet 600 mg PO TID PRN (Reason: pain) Qty: 90 RF: 3 metformin [Glucophage] 1,000 mg tablet 500 mg PO BID RF: 0 zolpidem [Ambien] 10 MG tablet 10 mg PO DAILY PRN PRNRF: 0 Basaglar KwikPen U-100 Insulin 100 unit/mL (3 mL) Insulin Pen 18 unit SUBCUT QAM RF: 0 Discharge Instructions Activity:: Bedrest Diet:: Carb Counting Discharge Orders Discharge Orders: Discharge Order (Routine); Ordered 09/14/18 Ordered By: Nicole Nuñez Exam Narrative Exam Narrative: General: Obese female, anxious, more focused, A&Ox2-3, no twitching or focal deficits. No uncontrollable lip movements. Skin: Face with abrasions over the nose and chin and now with ecchymoses; B feet dressed/splinted HEENT: EOMI, MMM Cardiovascular: RRR, no m/r/g Lungs: Coarse breath sounds B, good aeration Gastrointestinal: abdomen is soft, nontender, nondistended Genitourinary: has a coppola Extremities: B feet splinted/dressed DS: Data Vitals/I&O Vitals and I&O: Vital Signs Temperature 36.6 C 09/14/18 13:42 Temperature Source Tympanic 09/14/18 13:42 Pulse 83 09/14/18 12:53 Pulse 78 09/14/18 13:00 Respiratory Rate 17 09/14/18 13:00 Respiratory Effort Non-Labored 09/14/18 13:42 Respiratory Depth Normal 09/14/18 13:42 Respiratory Pattern Normal 09/14/18 13:42 Blood Pressure 129/67 09/14/18 12:53 Blood Pressure Mean 83 09/14/18 12:53 Blood Pressure Position Supine 09/13/18 07:15 Pulse Oximetry 94 L 09/14/18 08:01 Oxygen Delivery Method Room Air 09/14/18 13:42 Oxygen Flow Rate 0 09/14/18 13:42 Pain Level 9 09/14/18 13:42 Comment 09/12/18 12:13 Intake & Output 09/13/18 09/14/18 09/14/18 23:59 11:59 23:59 Intake Total 1083.333 / 2530.000 1572.5 / 1572.5 Output Total 1974 500 / 500 Balance -891.667 / 003.709 3658.5 / 1072.5 Weight 91.1 kg Intake: IV 883.333 / 2150.000 1372.5 / 1372.5 Oral 200 / 380 200 / 200 Output: Urine 1974 500 / 500 Other: Urine Color Light Ivette Yellow Urine Appearance Clear Clear Comment coppola intact and draining well. coppola intact coppola intact Completed studies during hospitalization [Text1]: CT head without contrast: No acute intracranial hemorrhage CT c-spine; 1. No acute fracture of the cervical spine. 2. No subluxation or dislocation of the cervical spine. 3. Opacities in the apices may represent atelectasis or contusions. CT chest: 1. Patchy bilateral groundglass opacities. Differential includes UIP, DIP , BOOP, early interstitial lung disease; alveolitis in pneumocystis pneumonia, viral pneumonia, or mycoplasmal pneumonia or ARDS; edema; hypersensitivity pneumonia; pulmonary hemorrhage; partial atelectasis.. 2. 6.8 mm groundglass nodule in the right upper lobe (4:18). CT abdomen/pelvis: No acute process XR L foot: 1. Displaced fractures of necks of the second and third metatarsals. 2. Comminuted displaced fractures of the proximal fourth metatarsal. 3. There may be fractures of the proximal third metatarsal.. 4. Soft tissue swelling over the dorsum of the foot. XR R foot: 1. Displaced fracture in the proximal aspect of the proximal phalanx of the great toe. 2. Comminuted displaced fractures of the proximal aspect of the proximal phalanx of the second toe. 3. The tarsometatarsal joint appears disrupted. There may be more than one tarsometatarsal joint which is subluxed 4. Displaced fracture of the proximal metatarsal seen best on the lateral. Made represent proximal first or second metatarsal fracture. CT RLE w/o contrast 09/12/18: Lisfranc fracture dislocation with lateral displacement of the metatarsals. Fractures at the bases of the 1st and 2nd proximal phalanges as well as distal tibia and distal fibula. Cuneiform and cuboid fractures are also present. CT LLE w/o contrast 09/13/18: Comparison is made with plain films performed earlier the same day. There are displaced fractures of the distal shafts of the 2nd and 3rd metatarsals with lateral displacement and some over riding. There is a comminuted fracture at the base of the 4rh metatarsal with significant dorsal displacement of the proximal fractured portion. There are a few tiny fragmented fragments near the base of the 2nd metatarsal. There is impaction at the lateral and distal aspect of the cuboid. A tiny fracture fragment is seen at the inferior aspect of the 3rd cuneiform. There is a comminuted fracture of the distal phalanx of the 5th toe as well as a nondisplaced fracture of the shaft of the proximal phalanx of the 5th toe. A nondisplaced fracture is also seen of the 4th proximal phalanx. There is marked soft tissue swelling. Heel spurs are seen. US carotids 09/13/18: No significant internal carotid artery stenosis or plaque. MRI Brain w/w/o contrast (done as there was a suspicion of seizures) 09/13/18: Negative MRI of the brain. CXR 09/13/18: No acute abnormality. Labs on day of discharge: Labs from last 24 hours 09/14/18 09/14/18 09/12/18 06:36 06:36 18:40 WBC 11.96 H RBC 3.01 L Hgb 9.3 L Hct 29.4 L MCV 97.7 H MCH 30.9 MCHC 31.6 L RDW 14.7 H Plt Count 221 MPV 11.1 H Immature Gran % 0.6 Neutrophils % 82.7 Lymphocytes % 10.3 Monocytes % 6.4 Eosinophils % 0.0 Basophils % 0.0 Absolute Neutrophils 9.89 H Absolute Lymphocytes 1.23 Absolute Monocytes 0.77 H Absolute Eosinophils 0.00 Absolute Basophils 0.00 Sodium 141 Potassium 4.0 Chloride 110 H Carbon Dioxide 21.4 Anion Gap 9.6 BUN 17 Creatinine 0.76 Estimated GFR/1.73 m2 >= 60.00 Glucose 154 H Calcium 7.6 L Magnesium 2.0 Total Bilirubin 0.2 Conjugated Bilirubin 0.05 AST 13 L ALT 19 Alkaline Phosphatase 55 Total Protein 5.8 L Albumin 2.6 L Lyme Disease Antibody Legionella Source (see note) Legionella Reprt Status (see note) Legionella Final Result (see note) 09/12/18 16:00 WBC RBC Hgb Hct MCV MCH MCHC RDW Plt Count MPV Immature Gran % Neutrophils % Lymphocytes % Monocytes % Eosinophils % Basophils % Absolute Neutrophils Absolute Lymphocytes Absolute Monocytes Absolute Eosinophils Absolute Basophils Sodium Potassium Chloride Carbon Dioxide Anion Gap BUN Creatinine Estimated GFR/1.73 m2 Glucose Calcium Magnesium Total Bilirubin Conjugated Bilirubin AST ALT Alkaline Phosphatase Total Protein Albumin Lyme Disease Antibody Negative Legionella Source Legionella Reprt Status Legionella Final Result 09/12/18 14:03 Sputum Sputum Culture - Pending 09/12/18 14:03 Sputum Gram Stain - Pending Preliminary micro results at discharge 09/12/18 13:50 Body Fluid Culture - Preliminary Cerebrospinal Fluid 09/12/18 16:00 Blood Culture - Preliminary Blood NO GROWTH 24 HOURS 09/12/18 14:17 Blood Culture - Preliminary Blood NO GROWTH 24 HOURS 09/12/18 14:03 Sputum Culture - Pending Sputum Gram Stain - Pending [facility] Medical History Hypotension (Acute) Asthma Chronic pain Depression Diabetes mellitus Diarrhea Dry skin Fibromyalgia GERD (gastroesophageal reflux disease) Generalized anxiety disorder Headache Heel pain, bilateral Hematuria Hyperlipidemia Hypertension Impingement syndrome, shoulder, left Long-term insulin use Lumbar back pain Menopause syndrome Narcotic drug use Obesity Obstructive sleep apnea Skin rash Tobacco use Urinary frequency Surgical History H/O elbow surgery (Acute) H/O thumb surgery (Acute) S/P arthroscopy of left shoulder (Acute) S/P left knee arthroscopy (Acute) S/P right knee arthroscopy (Acute) H/O carpal tunnel repair (Chronic) H/O: hysterectomy (Chronic) Colonoscopy - MAC (11/06/17) Family History Other Fibromyalgia Social History Smoking/Tobacco Use Status: Current every day Tobacco Type: cigarettes Alcohol Intake: never Drug use: Never Substance use type: does not use Household members: spouse Housing: house Number of Children: 1 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
--- NOTE | 2018-09-14 13:58 | DSE_ITS ---
Date of service: 09/14/18 Time of Service: 13:49 DS: Diagnosis Discharge Diagnosis (1) Sepsis: Status: Acute (2) CAP (community acquired pneumonia): Status: Acute (3) COPD with acute exacerbation: Status: Acute (4) Dislocation of tarsometatarsal joint of right foot: Status: Acute (5) Foot fracture, right: Status: Acute (6) Foot fracture, left: Status: Acute (7) Encephalopathy acute: Status: Resolved Asessment and Plan: post-concussive state (8) Twitching: Status: Acute Asessment and Plan: Unable to get an EEG until 09/14/18; on keppra empirically (9) Occult blood positive stool: Status: Acute (10) GERD (gastroesophageal reflux disease): Status: Chronic (11) IDDM (insulin dependent diabetes mellitus): Status: Chronic (12) MANUEL (acute kidney injury): Status: Acute (13) Tobacco abuse: Status: Acute (14) Lung nodule: Status: Acute (15) LORRI (obstructive sleep apnea): Status: Chronic Asessment and Plan: on CPAP (16) Macrocytic anemia: Status: Acute Asessment and Plan: B12 and iron deficiency anemia, hemoccult positive (17) Unwitnessed fall: Status: Acute Asessment and Plan: possible syncope (18) Closed head injury: Status: Acute (19) Ambulatory dysfunction: Status: Acute Discharge Plan Disposition Patient Disposition: [facility] Condition: Serious Discharge Details Reason For Visit: UNWITNESSED FALL,CLSD HEAD INJ,ENCEPHALOPATHY,FOOT Admit Date/Time: 09/12/18 13:03 Admit Provider: Nicole Nuñez Attending Provider: Nicole Nuñez Primary Care Provider: Yamile De Leon [facility] Course Hospital Course: Ms La is a 53 year old female with PMHx of IDDM2, HTN, hyperlipidemia, chronic pain, fibromyalgia, chronic pain with chronic opioid use, LORRI normally on CPAP, GERD, admitted to [facility] on 09/12/18 after an unwitnessed fall/falls in her bathroom and presenting with sepsis due to CAP, mild acute exacerbation of COPD, closed head injury, encephalopathy, thought to be due to a post-concussive syndrome, but with suspicion of seizures (no tonic clonic events witnessed; lip twitching noted in ED), Multiple B foot fractures, and MANUEL. The history provided by the patient on admission was that the day prior to presentation she had dropped a log of firewood on her feet at 8 pm on 09/11/18. She does not recall the exact details of what happened at 2 am the following day, when she fell in the bathroom, but did have an episode of fecal incontinence then. She was unable to bear weight, ambulating on hands and knees to get back into her chair. Her took her to the ED on 09/12 as she was still unable to walk and, evidently, fell again. Patent was confused, intermittently lethargic in the ED, repeating herself and having occasional unilateral arm and lip twitching. She was afebrile, but did have a leucocytosis. Lumbar puncture was performed in the ED to ensure the patient did not have meningitis and was negative. She was found to have multiple fractures in her Bilateral feet, as indicated in imaging results below. She was admitted to the ICU with neurology and orthopedic consults, initiated on IVF, empiric azithromycin, rocephin, IV steroids, nebs, and empiric keppra while awaiting an EEG. We will not be able to obtain an EEG at [facility] until 09/15/18, so it has not been done yet. Patient's mental status returned to normal within 24 hours. Her baseline mental status does involve difficulty with naming the date as she also has a diagnosis of learning disability. While initially she was mildly hypoxemic per ABG, this resolved by hospital day 2. She was evaluated by orthopedics (Dr Peña), who believes that the patient requires a very complex surgical fixation of her B feet, best performed at a tertiary care facility, after consulting with Dr Riley of trauma surgery at [facility]. Dr Javad Urban of orthopedics accepts the patient in transfer to [facility]. She is on her third day of azithromycin/rocephin today. Her blood cultures show no growth to date. Her CSF cultures show no growth to date. Her sputum culture is pending. She is not requiring oxygen. Both of her feet are splinted. It is strongly recommended that the patient have a medicine consult to keep following all of her other medical conditions. Consider neurology consultation and EEG at [facility]. She no longer requires ICU or meets sepsis criteria. Her MANUEL has resolved; Cr is 0.76 today, down from 1.56 on admission. She is hemoccult positive, but no active bleeding has been noticed. The patient reports dark stools at home, which we have not noticed. Her H/H has been around 9 for the last 24 hrs. While it was 12.2 on admission, it is believed that the patient was dehydrated and hemoconcentrated at that time. She is on PPI IV BID and carafate. We held her NSAIDS. She was evaluated by general surgery for this, but is not felt to require urgent intervention. She should certainly follow up for this as an outpatient. We appreciate the assistance of our [facility] colleagues and wish this patient well! Home Meds and New Rx's Prescriptions: New acetaminophen [Tylenol] 325 mg Tablet 325 - 650 mg PO Q4H PRN PRNQty: 0 RF: 0 ipratropium-albuterol 0.5 mg-3 mg(2.5 mg base)/3 mL Solution For Nebulization 3 ml UPD Q6H PRN PRNQty: 0 RF: 0 albuterol sulfate 2.5 mg /3 mL (0.083 %) Solution For Nebulization 2.5 mg UPD Q2H PRN PRNQty: 0 RF: 0 prochlorperazine maleate 5 mg Tablet 5 mg PO Q6H PRN PRNQty: 0 RF: 0 sucralfate 1 gram Tablet 1 g PO AC & HS Qty: 0 RF: 0 pantoprazole [Protonix] 40 mg Recon Soln 40 mg IVP Q12H Qty: 0 RF: 0 Nicotrol 10 mg Cartridge 10 mg Inhalation Q2H PRN PRNQty: 0 RF: 0 magnesium hydroxide [Milk of Magnesia] 400 mg/5 mL Suspension 30 ml PO DAILY PRN PRNQty: 0 RF: 0 cyanocobalamin (vitamin B-12) [Vitamin B-12] 500 mcg Tablet 1,000 mcg PO DAILY Qty: 0 RF: 0 ascorbic acid (vitamin C) [Vitamin C] 500 mg Tablet 500 mg PO BID Qty: 0 RF: 0 hydromorphone 2 mg/mL Solution 0.5 mg IVP Q2H PRN PRNQty: 0 RF: 0 ferrous sulfate 325 mg (65 mg iron) Tablet 325 mg PO BID Qty: 0 RF: 0 azithromycin [Zithromax] 500 mg Recon Soln 500 mg IVPB Q24H Qty: 0 RF: 0 docusate sodium [Colace] 100 mg Capsule 100 mg PO TID PRN PRNQty: 0 RF: 0 docusate sodium [Colace] 100 mg Capsule 100 mg PO BID Qty: 0 RF: 0 alum-mag hydroxide-simeth [Mag-Al Plus] 200-200-20 mg/5 mL Suspension 30 ml PO Q2H PRN PRNQty: 0 RF: 0 Novolog Flexpen U-100 Insulin 100 unit/mL Insulin Pen subcut 0800,1200,1700 Qty: 0 RF: 0 ceftriaxone in dextrose,iso-os 1 gram/50 mL Piggyback 1 g IVPB Q24H Qty: 0 RF: 0 levetiracetam [Keppra] 500 mg/5 mL Solution 1,000 mg IVPB Q12H Qty: 0 RF: 0 Solu-Medrol (PF) 40 mg/mL Recon Soln 40 mg IVP Q12H Qty: 0 RF: 0 guaifenesin [Mucinex] 600 mg Tablet Extended Release 12hr 600 mg PO BID Qty: 0 RF: 0 Continued walker misc .ROUTE .MEDSUPPLY Qty: 1 RF: 0 pantoprazole 40 mg tablet,delayed release (DR/EC) 40 mg PO DAILY RF: 0 betamethasone dipropionate 0.05 % cream 1 applic TP BID PRNRF: 0 hydrocodone-acetaminophen 5-325 mg tablet 1 tab PO TID PRNRF: 0 albuterol sulfate 90 mcg/actuation HFA aerosol inhaler 2 inh Inhalation Q4H PRNRF: 0 simvastatin 20 MG tablet 20 mg PO QPM RF: 0 epinephrine [EpiPen 2-Leonidas] 0.3 MG/0.3 ML auto-injector 1 dis.syr .Route DIRECTED RF: 0 aspirin 81 MG tablet,delayed release (DR/EC) 81 mg PO BID Qty: 30 RF: 0 clotrimazole 10 mg Pablito 10 mg MUCOUS MEMBRANE QID RF: 0 ondansetron HCl [Zofran] 4 mg tablet 4 mg PO QID PRN (Reason: nausea and vomiting) Qty: 6 RF: 0 Discontinued acetaminophen [Tylenol Extra Strength] 500 mg tablet 500 mg PO BID PRNRF: 0 gabapentin 800 mg tablet 800 mg PO HS Qty: 90 RF: 3 baclofen 10 mg tablet 10 mg PO TID PRNRF: 0 lisinopril 10 MG tablet 10 mg PO DAILY RF: 0 ibuprofen 600 mg tablet 600 mg PO TID PRN (Reason: pain) Qty: 90 RF: 3 metformin [Glucophage] 1,000 mg tablet 500 mg PO BID RF: 0 zolpidem [Ambien] 10 MG tablet 10 mg PO DAILY PRN PRNRF: 0 Basaglar KwikPen U-100 Insulin 100 unit/mL (3 mL) Insulin Pen 18 unit SUBCUT QAM RF: 0 Discharge Instructions Activity:: Bedrest Diet:: Carb Counting Discharge Orders Discharge Orders: Discharge Order (Routine); Ordered 09/14/18 Ordered By: Nicole Nuñez Exam Narrative Exam Narrative: General: Obese female, anxious, more focused, A&Ox2- 3, no twitching or focal deficits. No uncontrollable lip movements. Skin: Face with abrasions over the nose and chin and now with ecchymoses; B feet dressed/splinted HEENT: EOMI, MMM Cardiovascular: RRR, no m/r/g Lungs: Coarse breath sounds B, good aeration Gastrointestinal: abdomen is soft, nontender, nondistended Genitourinary: has a coppola Extremities: B feet splinted/dressed DS: Data Vitals/I&O Vitals and I&O: Vital Signs Temperature 36.6 C 09/14/18 13:42 Temperature Source Tympanic 09/14/18 13:42 Pulse 83 09/14/18 12:53 Pulse 78 09/14/18 13:00 Respiratory Rate 17 09/14/18 13:00 Respiratory Effort Non-Labored 09/14/18 13:42 Respiratory Depth Normal 09/14/18 13:42 Respiratory Pattern Normal 09/14/18 13:42 Blood Pressure 129/67 09/14/18 12:53 Blood Pressure Mean 83 09/14/18 12:53 Blood Pressure Position Supine 09/13/18 07:15 Pulse Oximetry 94 L 09/14/18 08:01 Oxygen Delivery Method Room Air 09/14/18 13:42 Oxygen Flow Rate 0 09/14/18 13:42 Pain Level 9 09/14/18 13:42 Comment 09/12/18 12:13 Intake & Output 09/13/18 09/14/18 09/14/18 23:59 11:59 23:59 Intake Total 1083.333 / 2530.000 1572.5 / 1572.5 Output Total 1974 500 / 500 Balance -891.667 / 971.996 3392.5 / 1072.5 Weight 91.1 kg Intake: IV 883.333 / 2150.000 1372.5 / 1372.5 Oral 200 / 380 200 / 200 Output: Urine 1974 500 / 500 Other: Urine Color Light Ivette Yellow Urine Appearance Clear Clear Comment coppola intact and draining well. coppola intact coppola intact Completed studies during hospitalization [Text1]: CT head without contrast: No acute intracranial hemorrhage CT c-spine; 1. No acute fracture of the cervical spine. 2. No subluxation or dislocation of the cervical spine. 3. Opacities in the apices may represent atelectasis or contusions. CT chest: 1. Patchy bilateral groundglass opacities. Differential includes UIP, DIP , BOOP, early interstitial lung disease; alveolitis in pneumocystis pneumonia, viral pneumonia, or mycoplasmal pneumonia or ARDS; edema; hypersensitivity pneumonia; pulmonary hemorrhage; partial atelectasis.. 2. 6.8 mm groundglass nodule in the right upper lobe (4:18). CT abdomen/pelvis: No acute process XR L foot: 1. Displaced fractures of necks of the second and third metatarsals. 2. Comminuted displaced fractures of the proximal fourth metatarsal. 3. There may be fractures of the proximal third metatarsal.. 4. Soft tissue swelling over the dorsum of the foot. XR R foot: 1. Displaced fracture in the proximal aspect of the proximal phalanx of the great toe. 2. Comminuted displaced fractures of the proximal aspect of the proximal phalanx of the second toe. 3. The tarsometatarsal joint appears disrupted. There may be more than one tarsometatarsal joint which is subluxed 4. Displaced fracture of the proximal metatarsal seen best on the lateral. Made represent proximal first or second metatarsal fracture. CT RLE w/o contrast 09/12/18: Lisfranc fracture dislocation with lateral displacement of the metatarsals. Fractures at the bases of the 1st and 2nd proximal phalanges as well as distal tibia and distal fibula. Cuneiform and cuboid fractures are also present. CT LLE w/o contrast 09/13/18: Comparison is made with plain films performed earlier the same day. There are displaced fractures of the distal shafts of the 2nd and 3rd metatarsals with lateral displacement and some over riding. There is a comminuted fracture at the base of the 4rh metatarsal with significant dorsal displacement of the proximal fractured portion. There are a few tiny fragmented fragments near the base of the 2nd metatarsal. There is impaction at the lateral and distal aspect of the cuboid. A tiny fracture fragment is seen at the inferior aspect of the 3rd cuneiform. There is a comminuted fracture of the distal phalanx of the 5th toe as well as a nondisplaced fracture of the shaft of the proximal phalanx of the 5th toe. A nondisplaced fracture is also seen of the 4th proximal phalanx. There is marked soft tissue swelling. Heel spurs are seen. US carotids 09/13/18: No significant internal carotid artery stenosis or plaque. MRI Brain w/w/o contrast (done as there was a suspicion of seizures) 09/13/18: Negative MRI of the brain. CXR 09/13/18: No acute abnormality. Labs on day of discharge: Labs from last 24 hours 09/14/18 09/14/18 09/12/18 06:36 06:36 18:40 WBC 11.96 H RBC 3.01 L Hgb 9.3 L Hct 29.4 L MCV 97.7 H MCH 30.9 MCHC 31.6 L RDW 14.7 H Plt Count 221 MPV 11.1 H Immature Gran % 0.6 Neutrophils % 82.7 Lymphocytes % 10.3 Monocytes % 6.4 Eosinophils % 0.0 Basophils % 0.0 Absolute Neutrophils 9.89 H Absolute Lymphocytes 1.23 Absolute Monocytes 0.77 H Absolute Eosinophils 0.00 Absolute Basophils 0.00 Sodium 141 Potassium 4.0 Chloride 110 H Carbon Dioxide 21.4 Anion Gap 9.6 BUN 17 Creatinine 0.76 Estimated GFR/1.73 m2 >= 60.00 Glucose 154 H Calcium 7.6 L Magnesium 2.0 Total Bilirubin 0.2 Conjugated Bilirubin 0.05 AST 13 L ALT 19 Alkaline Phosphatase 55 Total Protein 5.8 L Albumin 2.6 L Lyme Disease Antibody Legionella Source (see note) Legionella Reprt Status (see note) Legionella Final Result (see note) 09/12/18 16:00 WBC RBC Hgb Hct MCV MCH MCHC RDW Plt Count MPV Immature Gran % Neutrophils % Lymphocytes % Monocytes % Eosinophils % Basophils % Absolute Neutrophils Absolute Lymphocytes Absolute Monocytes Absolute Eosinophils Absolute Basophils Sodium Potassium Chloride Carbon Dioxide Anion Gap BUN Creatinine Estimated GFR/1.73 m2 Glucose Calcium Magnesium Total Bilirubin Conjugated Bilirubin AST ALT Alkaline Phosphatase Total Protein Albumin Lyme Disease Antibody Negative Legionella Source Legionella Reprt Status Legionella Final Result 09/12/18 14:03 Sputum Sputum Culture - Pending 09/12/18 14:03 Sputum Gram Stain - Pending Preliminary micro results at discharge 09/12/18 13:50 Body Fluid Culture - Preliminary Cerebrospinal Fluid 09/12/18 16:00 Blood Culture - Preliminary Blood NO GROWTH 24 HOURS 09/12/18 14:17 Blood Culture - Preliminary Blood NO GROWTH 24 HOURS 09/12/18 14:03 Sputum Culture - Pending Sputum Gram Stain - Pending [facility] Medical History Hypotension (Acute) Asthma Chronic pain Depression Diabetes mellitus Diarrhea Dry skin Fibromyalgia GERD (gastroesophageal reflux disease) Generalized anxiety disorder Headache Heel pain, bilateral Hematuria Hyperlipidemia Hypertension Impingement syndrome, shoulder, left Long-term insulin use Lumbar back pain Menopause syndrome Narcotic drug use Obesity Obstructive sleep apnea Skin rash Tobacco use Urinary frequency Surgical History H/O elbow surgery (Acute) H/O thumb surgery (Acute) S/P arthroscopy of left shoulder (Acute) S/P left knee arthroscopy (Acute) S/P right knee arthroscopy (Acute) H/O carpal tunnel repair (Chronic) H/O: hysterectomy (Chronic) Colonoscopy - [facility] (11/06/17) Family History Other Fibromyalgia Social History Smoking/Tobacco Use Status: Current every day Tobacco Type: cigarettes Alcohol Intake: never Drug use: Never Substance use type: does not use Household members: spouse Housing: house Number of Children: 1 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
--- NOTE | 2018-09-14 15:02 | PDOC.CMDIS ---
- If Service Date Differs Date of service: 09/14/18 Time of Service: 15:02 Care Management Discharge Reason for Hospitalization: Sepsis, Community acquired pneumonia, bilateral fractured feet Discharge Plan: Jenae is receiving IV antibiotics for pneumonia and possible sepsis. She is receiving IV narcotics for pain control for her bilateral foot fractures. Surgery was planned for , however she will likely be transferred to [facility] for the procedures today or tomorrow, per MD. CM will continue to provide support to patient, family, care team and discharge Patient/Family Education Needs: Discharge plan, limitations, follow up plan of care, Ask Me Three
--- NOTE | 2018-09-14 15:14 | CMDISCH_ITS ---
- If Service Date Differs Date of service: 09/14/18 Time of Service: 15:02 Care Management Discharge Reason for Hospitalization: Sepsis, Community acquired pneumonia, bilateral fractured feet Discharge Plan: Jenae is receiving IV antibiotics for pneumonia and possible sepsis. She is receiving IV narcotics for pain control for her bilateral foot fractures. Surgery was planned for , however she will likely be transferred to [facility] for the procedures today or tomorrow, per MD. CM will continue to provide support to patient, family, care team and discharge Patient/Family Education Needs: Discharge plan, limitations, follow up plan of care, Ask Me Three
--- NOTE | 2018-09-14 15:14 | CHAPLAIN ---
Jenae told me that she will be going to [facility] at some point for surgery and her feet, and will then be in casts, and likely working with PT for six months. She identified her as her biggest support. They are friends with Rev. Gustavo Camara, and Jenae said Gustavo will be in later to visit her.
[2018-09-14 15:16] LABS: Streptococcus Pneumoniae Ag, U Negative (Negative)
[2018-09-14] MEDS: cefTRIAXone 1 GM/50 ML BAG IVPB (15:45)
--- NOTE | 2018-09-14 16:44 | W.PM.PROGNOT ---
Date of Service Date of service: 09/14/18 Time of Service: 09:44 Assessment and Plan (1) Dislocation of tarsometatarsal joint of right foot: Current visit: No Status: Acute Jenae has a severe injury to both feet. The right foot has dislocation of the tarsometatarsal joint with multiple fractures including the base the second metatarsal, medial and middle cuneiforms, proximal phalanx of the great toe, and cuboid. Her transverse arch is not reduced at this time and needs to be surgically improved. There is a small skin wound seen on the medial aspect the foot which looks to be old in nature and not active nor infected. She is tolerating the Chao dressing well does seem to have some reduction in swelling. Her feet have been cut strictly elevated. I long discussion with Jenae about her injuries. They are quite complex in nature and will require various interventions with combination of plate and screws and pins. Given the complexity of the injury and the bilateral nature, I do think this carries a high complication rate. I discussed this case with Dr. Hurtado at [facility] who agreed. Given the nature of the injury and the significant amount of surgery required for fixation with the inherent complication, I recommended that she be transferred to [facility] for definitive care. I have known Jenae for some time and I will be happy to help out in the follow-up if needed. Her medical issues appear stable. Her swelling is going down and may be ready for surgery the next day or 2. In discussion with Dr. Nuñez, she agrees that she is stable to transfer and would be ready for discharge if not for the pain control and weightbearing issues with her bilateral foot injuries. We will plan for transfer to [facility] for definitive management and care. Qualifiers: Encounter type: initial encounter Qualified Code(s): S93.324A - Dislocation of tarsometatarsal joint of right foot, initial encounter (2) Foot fracture, right: Current visit: Yes Status: Acute Qualifiers: Encounter type: initial encounter Fracture type: closed Qualified Code(s): S92.901A - Unspecified fracture of right foot, initial encounter for closed fracture (3) Foot fracture, left: Current visit: Yes Status: Acute Qualifiers: Encounter type: initial encounter Fracture type: closed Qualified Code(s): S92.902A - Unspecified fracture of left foot, initial encounter for closed fracture Subjective Interval history since last seen: Jenae reports be doing okay. She denies any change in her neurologic status. She denies any confusion or spontaneous movements. She has had occasional nausea. Her cough is been very minimal. She has had no production. She denies fevers or chills. She still has pain in both feet but she feels like is being managed well. She denies any new numbness or tingling. I attempted to passively dorsiflex the feet but she refused due to pain. Exam Narrative Exam Narrative: Jenae is laying comfortably in the bed. She has no acute distress. Evaluation of the bilateral feet have intact Chao dressings. The Chao dressing were rewrapped and I attempted to place her in a more dorsiflexion but she refused due to pain. I placed a posterior slab component to each foot. Through the window of the distal aspect of the dressing her swelling has come down slightly. Ecchymosis is present. She reports full sensation over the deep and superficial peroneal nerve and tibial nerve bilaterally. Objective Objective Clinical Data: Abnormal lab results 09/14/18 09/14/18 Range/Units 06:36 06:36 WBC 11.96 H (4.4-10.8) k/cumm RBC 3.01 L (4.00-5.20) m/cumm Hgb 9.3 L (12.0-15.5) g/dL Hct 29.4 L (36.0-46.0) % MCV 97.7 H (80-95) fL MCHC 31.6 L (32.0-36.0) g/dL RDW 14.7 H (11.7-14.6) % MPV 11.1 H (8.0-11.0) fL Absolute Neutrophils 9.89 H (1.2-6.7) k/cumm Absolute Monocytes 0.77 H (0.11-0.7) k/cumm Chloride 110 H (98-107) mmol/L Glucose 154 H (70-100) mg/dL Calcium 7.6 L (8.5-10.1) mg/dL AST 13 L (15-37) U/L Total Protein 5.8 L (6.4-8.2) g/dL Albumin 2.6 L (3.4-5.0) g/dL Vital Signs Temperature 36.6 C 09/14/18 13:42 Temperature Source Tympanic 09/14/18 13:42 Pulse 74 09/14/18 14:01 Pulse 79 09/14/18 14:01 Respiratory Rate 17 09/14/18 14:01 Respiratory Effort Non-Labored 09/14/18 13:42 Respiratory Depth Normal 09/14/18 13:42 Respiratory Pattern Normal 09/14/18 13:42 Blood Pressure 131/63 09/14/18 14:01 Blood Pressure Mean 80 09/14/18 14:01 Blood Pressure Position Supine 09/13/18 07:15 Pulse Oximetry 93 L 09/14/18 14:01 Oxygen Delivery Method Room Air 09/14/18 13:42 Oxygen Flow Rate 0 09/14/18 13:42 Pain Level 7 09/14/18 16:02 Comment 09/12/18 12:13 Intake & Output 09/13/18 09/14/18 09/14/18 23:59 11:59 23:59 Intake Total 1083.333 / 2530.000 1572.5 / 2572.5 1000 / 2572.5 Output Total 1974 500 / 1450 950 / 1450 Balance -891.667 / 012.927 9334.5 / 1122.5 50 / 1122.5 Weight 91.1 kg Intake: IV 883.333 / 2150.000 1372.5 / 2372.5 1000 / 2372.5 Oral 200 / 380 200 / 200 Output: Urine 1974 500 / 1450 950 / 1450 Other: Urine Color Light Ivette Yellow Yellow Straw Urine Appearance Clear Clear Clear Comment coppola intact and draining well. coppola intact coppola intact Laboratory Results WBC 11.96 k/cumm (4.4-10.8) H 09/14/18 06:36 RBC 3.01 m/cumm (4.00-5.20) L 09/14/18 06:36 Hgb 9.3 g/dL (12.0-15.5) L 09/14/18 06:36 Hct 29.4 % (36.0-46.0) L 09/14/18 06:36 MCV 97.7 fL (80-95) H 09/14/18 06:36 MCH 30.9 pg (27.0-33.0) 09/14/18 06:36 MCHC 31.6 g/dL (32.0-36.0) L 09/14/18 06:36 RDW 14.7 % (11.7-14.6) H 09/14/18 06:36 Plt Count 221 x1000/uL (130-400) 09/14/18 06:36 MPV 11.1 fL (8.0-11.0) H 09/14/18 06:36 Immature Gran % 0.6 09/14/18 06:36 Neutrophils % 82.7 09/14/18 06:36 Lymphocytes % 10.3 09/14/18 06:36 Monocytes % 6.4 09/14/18 06:36 Eosinophils % 0.0 09/14/18 06:36 Basophils % 0.0 09/14/18 06:36 Absolute Neutrophils 9.89 k/cumm (1.2-6.7) H 09/14/18 06:36 Absolute Lymphocytes 1.23 k/cumm (1.2-3.4) 09/14/18 06:36 Absolute Monocytes 0.77 k/cumm (0.11-0.7) H 09/14/18 06:36 Absolute Eosinophils 0.00 k/cumm (0.0-0.7) 09/14/18 06:36 Absolute Basophils 0.00 k/cumm (0.0-0.2) 09/14/18 06:36 Differential Comment Rbc morph reviewed 09/13/18 06:15 RBC Morphology See below 09/13/18 06:15 Hypochromasia 1+ 09/13/18 06:15 Xanthochromia Absent 09/12/18 13:50 PT 9.0 sec (9.3-11.0) L 09/12/18 09:53 INR 0.9 (0.9-1.1) 09/12/18 09:53 Sample Site Left radial 09/12/18 19:00 pCO2 38 mmHg (34-47) 09/12/18 19:00 pO2 51 mmHg (83-108) L 09/12/18 19:00 O2 Saturation 86 % (94-98) L 09/12/18 19:00 ABG pH 7.37 (7.35-7.45) 09/12/18 19:00 ABG HCO3 22 mmol/L (22-28) 09/12/18 19:00 ABG Total CO2 20 mmol/L (22-29) L 09/12/18 19:00 ABG Base Excess -3.7 mmol/L (-3-3) L 09/12/18 19:00 FiO2 R/a % 09/12/18 19:00 Sodium 141 mmol/L (136-145) 09/14/18 06:36 Potassium 4.0 mmol/L (3.5-5.1) 09/14/18 06:36 Chloride 110 mmol/L (98-107) H 09/14/18 06:36 Carbon Dioxide 21.4 mmol/L (21.0-32.0) 09/14/18 06:36 Anion Gap 9.6 mmol/L (3-11) 09/14/18 06:36 BUN 17 mg/dL (7-18) 09/14/18 06:36 Creatinine 0.76 mg/dL (0.55-1.02) 09/14/18 06:36 Estimated GFR/1.73 m2 >= 60.00 (mL/min/1.73m2) 09/14/18 06:36 Glucose 154 mg/dL (70-100) H 09/14/18 06:36 Calcium 7.6 mg/dL (8.5-10.1) L 09/14/18 06:36 Magnesium 2.0 mg/dL (1.8-2.4) 09/14/18 06:36 Iron 23 ug/dL (50-175) L 09/12/18 16:00 TIBC 277 ug/dL (250-450) 09/12/18 16:00 Transferrin % Sat 8 % (15-50) L 09/12/18 16:00 Ferritin 22 ng/mL (8-388) 09/12/18 09:53 Total Bilirubin 0.2 mg/dL (0.2-1.0) 09/14/18 06:36 Conjugated Bilirubin 0.05 mg/dL (0.00-0.20) 09/14/18 06:36 AST 13 U/L (15-37) L 09/14/18 06:36 ALT 19 U/L (12-78) 09/14/18 06:36 Alkaline Phosphatase 55 U/L (46-116) 09/14/18 06:36 Ammonia 15 umol/L (11-32) 09/12/18 22:20 Creatine Kinase 265 U/L (26-192) H 09/12/18 09:53 Troponin I < 0.02 ng/mL (0.00-0.06) 09/12/18 22:20 Total Protein 5.8 g/dL (6.4-8.2) L 09/14/18 06:36 Albumin 2.6 g/dL (3.4-5.0) L 09/14/18 06:36 Triglycerides 120 mg/dL (30-150) 09/13/18 06:15 Total Cholesterol 160 mg/dL (50-200) 09/13/18 06:15 LDL Cholesterol Direct 104 mg/dL (<100) H 09/13/18 06:15 HDL Cholesterol 37 mg/dL (40-60) L 09/13/18 06:15 Vitamin B12 260 pg/mL (193-986) 09/12/18 09:53 Folate 18.3 ng/mL (8.6-20.0) 09/12/18 09:53 TSH 0.47 uIU/mL (0.358-3.74) 09/13/18 06:15 Urine Color Yellow (Yellow) 09/12/18 10:45 Urine Clarity Clear 09/12/18 10:45 Urine pH 5.5 (5-8) 09/12/18 10:45 Ur Specific [place] 1.020 (1.005-1.025) 09/12/18 10:45 Urine Protein 30 mg/dL (Negative) H 09/12/18 10:45 Urine Ketones Negative mg/dL (Negative) 09/12/18 10:45 Urine Blood Small (Negative) H 09/12/18 10:45 Urine Nitrite Negative (Negative) 09/12/18 10:45 Urine Bilirubin Negative (Negative) 09/12/18 10:45 Urine Urobilinogen 0.2 EU/dL (Up TO 0.2) 09/12/18 10:45 Ur Leukocyte Esterase Negative (Negative) 09/12/18 10:45 Urine RBC 0-2 (0-2) 09/12/18 10:45 Urine WBC 0-2 HPF (0-5) 09/12/18 10:45 Ur Epithelial Cells Rare HPF (Negative) 09/12/18 10:45 Urine Crystals Negative HPF (Negative) 09/12/18 10:45 Urine Bacteria Negative HPF (Negative) 09/12/18 10:45 Urine Casts Negative LPF (Negative) 09/12/18 10:45 Urine Mucus Trace (Negative) 09/12/18 10:45 Ur Culture Indicated? No 09/12/18 10:45 Urine Glucose Negative mg/dL (Negative) 09/12/18 10:45 CSF Tube Number 3 09/12/18 13:50 CSF Color Colorless 09/12/18 13:50 CSF Clarity Clear 09/12/18 13:50 CSF WBC 3 /mm3 (0-5) 09/12/18 13:50 CSF RBC 4 /mm3 (0-5) 09/12/18 13:50 CSF Diff Comment 09/12/18 13:50 CSF Glucose 77 mg/dL (40-70) H 09/12/18 13:50 CSF Total Protein 47 mg/dL (15-45) H 09/12/18 13:50 Urine Opiates Screen Positive (Negative) 09/12/18 18:40 Urine Methadone Screen Negative (Negative) 09/12/18 18:40 Ur Barbiturates Screen Negative (Negative) 09/12/18 18:40 Ur Tricyclics Screen Negative (Negative) 09/12/18 18:40 Ur Amphetamines Screen Negative (Negative) 09/12/18 18:40 U Benzodiazepines Scrn Negative (Negative) 09/12/18 18:40 Urine Cocaine Screen Negative (Negative) 09/12/18 18:40 Ur THC Screen Negative (Negative) 09/12/18 18:40 Lyme Disease Antibody Negative 09/12/18 16:00 Legionella Source (see note) 09/12/18 18:40 Legionella Reprt Status (see note) 09/12/18 18:40 Legionella Final Result (see note) 09/12/18 18:40 Ur Strep pneumoniae Ag Negative (Negative) 09/12/18 18:40 Patient ABO/Rh A Positive 09/12/18 10:32 Antibody Screen Negative 09/12/18 10:32
[2018-09-14 20:56] LABS: Specimen Source CSF
--- NOTE | 2018-09-14 22:11 | OT.INDS ---
Date of service: 09/14/18 Time of Service: 08:15 Occupational Therapy Notes Occupational Therapy Inpatient Discharge Summary Date: 09/14/18 Dates of Service: 09/13/18-09/14/18 Referring Doctor:Nicole Nuñez MD OT Orders: Eval and Treat Precautions: NWB (B) LE, Fall, Standard PATIENT PROFILE/ADMITTING DIAGNOSIS: Pt is a 53 year old female who was admitted through the ER s/p a fall in her bathroom with altered mental status, (B) foot fx's. Past Medical History: Medical History Hypotension (Acute) Asthma Chronic pain Depression Diabetes mellitus Diarrhea Dry skin Fibromyalgia GERD (gastroesophageal reflux disease) Generalized anxiety disorder Headache Heel pain, bilateral Hematuria Hyperlipidemia Hypertension Impingement syndrome, shoulder, left Long-term insulin use Lumbar back pain Menopause syndrome Narcotic drug use Obesity Obstructive sleep apnea Skin rash Tobacco use Urinary frequency Surgical History H/O elbow surgery (Acute) H/O thumb surgery (Acute) S/P arthroscopy of left shoulder (Acute) S/P left knee arthroscopy (Acute) S/P right knee arthroscopy (Acute) H/O carpal tunnel repair (Chronic) H/O: hysterectomy (Chronic) Colonoscopy - MAC (11/06/17) Current Functional Limitations: Unable to WB on (B) LE, (B) foot fx's, decreased functional mobility, inability to perform ADLs sitting on side of bed, decreased functional activity tolerance. Social History/Home Situation: Pt lives in a private home with her and 4 dogs. She reports that she was totally (I) with all ADLs/IADLs prior to admission to [facility]. Pt reports to OT that she fx her (B) feet by dropping a piece of wood on her feet and states that she dropped it on her (R) and it bounced on to her (L). It is noted in pts EMR that she had fallen in the bathroom. Pt reports that she was able to drive previously for community ambulation. Pt states that she has a walk in shower which she sits on the floor to perform bathing routine. OT does recommend a shower bench to increase pts safety during bathing routine. Equipment owned/DME: None. SUBJECTIVE: Pt was sitting in bed with (B) legs propped on pillows and (B) feet in wrappings. She is agreeable to OT session. OBJECTIVE: ROM: RUE AROM WFL L UE AROM WFL STRENGTH: RUE 4/5 throughout globally LUE 4/5 throughout globally FUNCTIONAL MOBILITY/ADLS: No functional mobility able to be performed due to (B) fx's as pt was awaiting surgery. BATHING Sitting in bed with max (A) set up Bathing UE (I) Bathing LE (I) to knees DRESSING Sitting in bed Dressing UE (I) [facility] gown. Dressing LE NT GROOMING Sitting in bed, max (A) set up (I) brushing teeth, max (A) hair BALANCE: Static sitting Good Dynamic Sitting Good Static Standing NT Dynamic Standing NT ASSESSMENT: Patient is a 53-year-old female referred to occupational therapy services with diagnosis of altered mental status, s/p (B) foot fx. Pt was seen for 2 skilled OT sessions. During 2 sessions pt was able to perform UE bathing and was provided foam cubes and light UE strengthening including shoulder flexion with yellow tubing which pt tolerated well 10x with good technique. [place] was [place] [facility] [place] (B) [place]. Pt will be formally discharged from skilled OT services at this time. GOALS Not met as pt was NWB and unable to remove (B) feet from inclined position. 1. Transfers mod (A) 2. Dressing sitting on side of bed, min (A) 3. Bathing Sitting on side of bed, Min (A) 4. Toileting commode mod (A) 5. Eating (I) (Met) 6. Brushing teeth and hair (I) sitting on side of bed. PLAN OF CARE/TREATMENT PLAN: Discharge pt from skilled OT services. DISCHARGE RECOMMENDATIONS Pt was [place] [facility] [place] of (B) feet fx. DME needs should be assessed post surgery. TREATMENT TIME/MINUTES/CODES [id number], 30 minutes (08:15) [facility]
--- NOTE | 2018-09-14 22:20 | OTDS_ITS ---
Date of service: 09/14/18 Time of Service: 08:15 Occupational Therapy Notes Occupational Therapy Inpatient Discharge Summary Date: 09/14/18 Dates of Service: 09/13/18-09/14/18 Referring Doctor:Nicole Nuñez MD OT Orders: Eval and Treat Precautions: NWB (B) LE, Fall, Standard PATIENT PROFILE/ADMITTING DIAGNOSIS: Pt is a 53 year old female who was admitted through the ER s/p a fall in her bathroom with altered mental status, (B) foot fx's. Past Medical History: Medical History Hypotension (Acute) Asthma Chronic pain Depression Diabetes mellitus Diarrhea Dry skin Fibromyalgia GERD (gastroesophageal reflux disease) Generalized anxiety disorder Headache Heel pain, bilateral Hematuria Hyperlipidemia Hypertension Impingement syndrome, shoulder, left Long-term insulin use Lumbar back pain Menopause syndrome Narcotic drug use Obesity Obstructive sleep apnea Skin rash Tobacco use Urinary frequency Surgical History H/O elbow surgery (Acute) H/O thumb surgery (Acute) S/P arthroscopy of left shoulder (Acute) S/P left knee arthroscopy (Acute) S/P right knee arthroscopy (Acute) H/O carpal tunnel repair (Chronic) H/O: hysterectomy (Chronic) Colonoscopy - MAC (11/06/17) Current Functional Limitations: Unable to WB on (B) LE, (B) foot fx's, decreased functional mobility, inability to perform ADLs sitting on side of bed, decreased functional activity tolerance. Social History/Home Situation: Pt lives in a private home with her and 4 dogs. She reports that she was totally (I) with all ADLs/IADLs prior to admission to [facility]. Pt reports to OT that she fx her (B) feet by dropping a piece of wood on her feet and states that she dropped it on her (R) and it bounced on to her (L). It is noted in pts EMR that she had fallen in the bathroom. Pt reports that she was able to drive previously for community ambulation. Pt states that she has a walk in shower which she sits on the floor to perform bathing routine. OT does recommend a shower bench to increase pts safety during bathing routine. Equipment owned/DME: None. SUBJECTIVE: Pt was sitting in bed with (B) legs propped on pillows and (B) feet in wrappings. She is agreeable to OT session. OBJECTIVE: ROM: RUE AROM WFL L UE AROM WFL STRENGTH: RUE 4/5 throughout globally LUE 4/5 throughout globally FUNCTIONAL MOBILITY/ADLS: No functional mobility able to be performed due to (B) fx's as pt was awaiting surgery. BATHING Sitting in bed with max (A) set up Bathing UE (I) Bathing LE (I) to knees DRESSING Sitting in bed Dressing UE (I) page hospital gown. Dressing LE NT GROOMING Sitting in bed, max (A) set up (I) brushing teeth, max (A) hair BALANCE: Static sitting Good Dynamic Sitting Good Static Standing NT Dynamic Standing NT ASSESSMENT: Patient is a 53-year-old female referred to occupational therapy services with diagnosis of altered mental status, s/p (B) foot fx. Pt was seen for 2 skilled OT sessions. During 2 sessions pt was able to perform UE bathing and was provided foam cubes and light UE strengthening including shoulder flexion with yellow tubing which pt tolerated well 10x with good technique. Pt was discharged today [place] [facility] [place] her (B) feet. Pt will be formally discharged from skilled OT services at this time. GOALS Not met as pt was NWB and unable to remove (B) feet from inclined position. 1. Transfers mod (A) 2. Dressing sitting on side of bed, min (A) 3. Bathing Sitting on side of bed, Min (A) 4. Toileting commode mod (A) 5. Eating (I) (Met) 6. Brushing teeth and hair (I) sitting on side of bed. PLAN OF CARE/TREATMENT PLAN: Discharge pt from skilled OT services. DISCHARGE RECOMMENDATIONS Pt was discharged [place] [facility] [place] of (B) feet fx. DME needs should be assessed post surgery. TREATMENT TIME/MINUTES/CODES [id number], 30 minutes (08:15) [facility]
--- NOTE | 2018-09-15 05:06 | IN_ITS ---
Date of service: 09/13/18 Time of Service: 11:21 PT Notes Inpatient Physical Therapy Evaluation Date: 09/13/18 Referring Doctor:Nicole Nuñez MD PT Orders: Eval and Treat Precautions: NWB (B) LE, Fall, Standard. PATIENT PROFILE/ADMITTING DIAGNOSIS: Jenae is a 53-year-old female who was admitted through the ED with altered mental status, multiple contusions, and bilateral feet fracture sustained from an unwitnessed fall in the bathroom at her home. She was diagnosed with community-acquired pneumonia with sepsis, encephalopathy, post-concussive syndrome with concomitant seizures due to sepsis, bilateral feet fracture, and dislocation of tarsometatarsal joint of right foot. PMHX: Medical History Hypotension (Acute) Asthma Chronic pain Depression Diabetes mellitus Diarrhea Dry skin Fibromyalgia GERD (gastroesophageal reflux disease) Generalized anxiety disorder Headache Heel pain, bilateral Hematuria Hyperlipidemia Hypertension Impingement syndrome, shoulder, left Long-term insulin use Lumbar back pain Menopause syndrome Narcotic drug use Obesity Obstructive sleep apnea Skin rash Tobacco use Urinary frequency Surgical History H/O elbow surgery (Acute) H/O thumb surgery (Acute) S/P arthroscopy of left shoulder (Acute) S/P left knee arthroscopy (Acute) S/P right knee arthroscopy (Acute) H/O carpal tunnel repair (Chronic) H/O: hysterectomy (Chronic) Colonoscopy - MAC (11/06/17) Social History/Home Situation: Patient lives in a private home with home with 4 steps to enter with her and 4 dogs. She reports that she was totally (I) with all mobility ADL performance prior to admission to [facility]. Patient reports PT that she has broken her (B) feet by dropping a piece of wood on her feet and states that she dropped it on her (R) and it bounced on to her (L). It is noted in patient's EMR that she had fallen in the bathroom. She reports that she was able to drive previously for community ambulation. She further states that she has a walk-in shower. Current Functional Limitations: Patient currently bed-bound and non-ambulatory due to fracture on bilateral feet and is awaiting surgical consultation and intervention Equipment Owned/DME: [employer] Subjective: Patient seen lying in bed and complains of discomfort as well as body aches mostly concentrated on her bilateral lower extremities due to fractures. She is agreeable to a PT consult. Objective: General Observation: Patient seen lying in bed and is in transit to radiology department for imaging studies. Bilateral feet and legs casted and bandaged. Contusions observed on bilateral UE/LE. Patel catheter on. Mental Status: Alert and oriented x3 Pain: Reports mild pain to bilateral lower extremities ROM: ROM: Right Upper Extremity: Shoulder Flexion WFL. Shoulder abduction WFL. Elbow flexion WFL. Wrist flexion WFL. Functional opening and closing of hand WFL. Left Upper Extremity: Shoulder Flexion WFL. Shoulder abduction WFL. Elbow flexion WFL. Wrist flexion WFL. Functional opening and closing of hand WFL. Right Lower Extremity: Hip flexion WFL. Hip abduction WFL. Knee flexion NT. Ankle dorsiflexion NT. Ankle plantarflexion NT. Left Lower Extremity: Hip flexion WFL. Hip abduction WFL. Knee flexion NT. Ankle dorsiflexion NT. Ankle plantarflexion NT. Strength: Gait not 29 Right Upper Extremity: WFL Left Upper Extremity: WFL Right Lower Extremity: Hip flexors 4-/5. Hip abductors 4-/5. Knee flexors 2-/5. Knee extensors 2-/5. Ankle dorsiflexors NT. Ankle plantarflexors NT. Right Lower Extremity: Hip flexors 4-/5. Hip abductors 4-/5. Knee flexors 2-/5. Knee extensors 2-/5. Ankle dorsiflexors NT. Ankle plantarflexors NT. BED MOBILITY LEVELS/TRANSFERS Rolling unable Supine to sit NT Sit to supine NT Sit to stand NT Stand to sit NT Bed to chair NT Chair to bed NT Gait: NT Balance: Static Sitting: NT Dynamic Sitting: NT Static Standing: NT Dynamic Standing: NT Special Tests: Mobility Limitations [facility] In[facility] Short Form: Raw Score: 6 Informed Consent/Education: Patient was informed about holding off on skilled physical therapy services until after surgical consultation and surgical procedure are completed. Assessment: Patient is a 53 year old female referred to physical therapy services with the diagnosis of altered mental status, community-acquired pneumonia, encephalopathy with seizures, bilateral feet fracture, and right tarsometatarsal dislocation. Patient presents with clinical signs and symptoms consistent with [], as demonstrated by the following impairment level findings: []. Impairments are contributing to the following functional limitations: 1. Decreased strength to B LE major muscle groups 2. Pain on BLE 3. Impaired activity tolerance 4. Limitation of joint range of motion in bilateral knees and bilateral ankles Impairments are contributing to the following functional limitations: 1. Dependent bed mobility skills 2. Inability to perform transfer tasks transfers 3. Inability to perform ambulation tasks 5. Increased fall risk 6. Increased skin breakdown Patient is assessed as a High 22553 complexity based on the following: History: 53-year-old female with bilateral feet fractures, right tarsometatarsal joint dislocation, encephalopathy with seizures, community-acquired pneumonia with sepsis with past medical history and co-morbidities and as indicated above Examination: Underlying impairments and functional limitations as noted above Presentation: Unstable Decision Makin high complexity Plan of Care/Treatment Plan: Patient will be reevaluated and provided with skilled physical therapy services after surgical consultation and surgical pr ocedure per hospital protocol. TREATMENT CODE/TIME: 49896 19 minutes beginning at 11:21 AM. Thank you for this referral. Soraya Plummer, PT, DPT, CLT [facility]
[2018-09-15 15:50] LABS: Anaplasma phagocytophilum Negative (Negative); B. miyamotoi PCR Negative (Negative); Babesia divergens/MO-1 Negative (Negative); Babesia duncani Negative (Negative); Babesia microti Negative (Negative); Ehrlichia chaffeensis Negative (Negative); Ehrlichia ewingii/canis Negative (Negative); Ehrlichia muris eauclairensis Negative (Negative)
== END 2018-09-14 17:45 | disposition short-term general hospital (02) | DRG 871 ==
LOC: ER 14:06 → ICU 16:28
PROVIDERS: Admitting Provider Internal Medicine; Emergency Provider Student in an Organized Health Care Education/Training Program; PCP Nurse Practitioner Family; Visit Provider Internal Medicine
DX: A41.9 Sepsis, unspecified organism (principal); J18.9 Pneumonia, unspecified organism; N17.9 Acute kidney failure, unspecified; G93.40 Encephalopathy, unspecified; J44.1 Chronic obstructive pulmonary disease with (acute) exacerbation; S93.324A Dislocation of tarsometatarsal joint of right foot, initial encounter; S92.901A Unspecified fracture of right foot, initial encounter for closed fracture; S92.902A Unspecified fracture of left foot, initial encounter for closed fracture; D53.9 Nutritional anemia, unspecified; R19.5 Other fecal abnormalities; E11.9 Type 2 diabetes mellitus without complications; R56.9 Unspecified convulsions; I10 Essential (primary) hypertension; Z71.3 Dietary counseling and surveillance; W20.8XXA Other cause of strike by thrown, projected or falling object, initial encounter; F17.210 Nicotine dependence, cigarettes, uncomplicated
CPT/HCPCS: 29581; 36415; 36416; 62270; 70553; 74177; 80048; 80053; 80061; 80076; 80307; 82550; 82805; 82945; 82962; 83721; 86850; 86900; 86901; 87040; 87449; 89050; 89051; 93005; 94640; 96361; 96365; 96366; 96368; 96375; 97162; 97166; 97530; 97535; 99221; 99223; 99232; 99233; 99239; 99252; 99253; 99255; 99285; 99291; 70450; 71046; 71260; 72125; 73630; 73700; 81003; 81015; 82140; 82607; 82728; 82746; 83540; 83550; 83735; 84157; 84443; 84484; 85014; 85018; 85025; 85610; 86618; 87070; 87205; 87450; 87476; 87798; 93010; 93880; J0456; J0696; J1953; J2060; J2930; J3420; J7613; J8597; L0172; Q9967

== ENCOUNTER → 2018-09-13 07:30 | Outpatient (BNVA) | payer MEDICARE, MEDICAID, SELFPAY | PROVIDERS: PCP Nurse Practitioner Family; Referring Provider Nurse Practitioner Family; Visit Provider Student in an Organized Health Care Education/Training Program | DX: R69 Illness, unspecified (principal) ==

== ENCOUNTER → 2018-09-13 08:42 | Outpatient (BNVA) | payer MEDICARE, MEDICAID, SELFPAY | PROVIDERS: PCP Nurse Practitioner Family; Visit Provider Psychiatry & Neurology Neurology | DX: R69 Illness, unspecified (principal) ==

== ENCOUNTER 2018-10-07 12:33 | Outpatient (REF) | payer MEDICARE, MEDICAID, SELFPAY ==
[2018-10-07 13:05] LABS: Abs Immature Grans 0.01 k/cumm (0.0-0.09); Absolute Basophil Count 0.04 k/cumm (0.0-0.2); Absolute Eosinophil Count 0.38 k/cumm (0.0-0.7); Absolute Lymphocyte Count 2.64 k/cumm (1.2-3.4); Absolute Monocyte Count 0.64 k/cumm (0.11-0.7); Absolute Neutrophil Count 4.35 k/cumm (1.2-6.7); Basophils % 0.5; Eosinophils % 4.7; HCT 35.7 % (36.0-46.0); HGB 11.5 g/dL (12.0-15.5); Immature Grans % 0.1; Lymphocytes % 32.8; Mean Corp. HGB Concentration 32.2 g/dL (32.0-36.0); Mean Corpuscular Hemoglobin 31.2 pg (27.0-33.0); Mean Corpuscular Volume 96.7 fL (80-95); Mean Platelet Volume 12.1 fL (8.0-11.0); Monocytes % 7.9; Platelet Count 324 x1000/uL (130-400); RBC 3.69 m/cumm (4.00-5.20); RBC Distribution Width 13.5 % (11.7-14.6); White Blood Cell Count 8.06 k/cumm (4.4-10.8)
[2018-10-07 14:23] LABS: ALT 22 U/L (12-78); AST 12 U/L (15-37); Albumin 3.6 g/dL (3.4-5.0); Alkaline Phosphatase 76 U/L (46-116); Anion Gap 13.6 mmol/L (3-11); BUN 16 mg/dL (7-18); Bilirubin, Total 0.3 mg/dL (0.2-1.0); CO2 24.4 mmol/L (21.0-32.0); CREATININE 1.07 mg/dL (0.55-1.02); Chloride 107 mmol/L (98-107); Estimated GFR 54.06 (mL/min/1.73m2); Glucose 114 mg/dL (70-100); Magnesium 1.5 mg/dL (1.8-2.4); Potassium 4.2 mmol/L (3.5-5.1); Sodium 145 mmol/L (136-145); Total Protein 6.5 g/dL (6.4-8.2)
== END 2018-10-07 12:53 ==
LOC: LBN 12:33
PROVIDERS: PCP Nurse Practitioner Family; Visit Provider Orthopaedic Surgery Foot and Ankle Surgery
DX: E11.9 Type 2 diabetes mellitus without complications (principal); J44.1 Chronic obstructive pulmonary disease with (acute) exacerbation; S92.201D Fracture of unspecified tarsal bone(s) of right foot, subsequent encounter for fracture with routine healing; S09.90XD Unspecified injury of head, subsequent encounter
CPT/HCPCS: 80053; 83735; 85025

== ENCOUNTER 2018-11-22 14:05 | Outpatient (CLI) | payer MEDICARE, MEDICAID, SELFPAY ==
--- NOTE | 2018-11-22 10:38 | DI.RAD_ITS ---
SYMPTOMS/DIAGNOSIS: F/U SURGERY/FRACTURE RIGHT FOOT: Comparison is made with August,. Hardware is seen in the 1st proximal phalanx, as well as at the 1st and 2nd tarsometatarsal joints. There has been some healing of the previously noted 1st and 2nd proximal phalangeal fractures. The bones appear osteoporotic, consistent with disuse. LEFT FOOT: Comparison is made with August,. A fixation plate is seen across the base of the 4th metatarsal. There has been some interval healing at the distal 2nd and 3rd metatarsal fractures. The bones appear osteoporotic, consistent with disuse. There is a deformity of the distal phalanx of the little toe, which shows fracture healing.
== END 2018-11-22 14:25 ==
PROVIDERS: PCP Nurse Practitioner Family; Referring Provider Nurse Practitioner Family; Visit Provider Student in an Organized Health Care Education/Training Program
DX: S92.902A Unspecified fracture of left foot, initial encounter for closed fracture; S93.324A Dislocation of tarsometatarsal joint of right foot, initial encounter; S92.901A Unspecified fracture of right foot, initial encounter for closed fracture; W19.XXXA Unspecified fall, initial encounter; I10 Essential (primary) hypertension; E11.9 Type 2 diabetes mellitus without complications
CPT/HCPCS: 99213; L4361; 73630

== ENCOUNTER 2018-12-07 15:11 | Outpatient (REF) | payer MEDICARE, MEDICAID, SELFPAY ==
[2018-12-07 21:49] LABS: Anion Gap 14.8 mmol/L (3-11); BUN 22 mg/dL (7-18); CO2 21.2 mmol/L (21.0-32.0); CREATININE 1.45 mg/dL (0.55-1.02); Calcium 8.8 mg/dL (8.5-10.1); Chloride 109 mmol/L (98-107); Estimated GFR 38.07 (mL/min/1.73m2); Glucose 67 mg/dL (70-100); Magnesium 1.6 mg/dL (1.8-2.4); Sodium 145 mmol/L (136-145)
== END 2018-12-07 15:31 ==
LOC: NCHCN 15:11
PROVIDERS: PCP Nurse Practitioner Family; Visit Provider Nurse Practitioner Family
DX: E11.9 Type 2 diabetes mellitus without complications (principal); G89.29 Other chronic pain; Z79.891 Long term (current) use of opiate analgesic
CPT/HCPCS: 80048; 83735

== ENCOUNTER 2018-12-20 10:14 | Outpatient (CLI) | payer MEDICARE, MEDICAID, SELFPAY ==
--- NOTE | 2018-12-20 09:59 | DI.RAD_ITS ---
SYMPTOM/DIAGNOSIS: S/P ORIF RT FOOT FX RIGHT FOOT: Three views. Comparison is 11/22/18 There are again seen side plates and screws in the proximal phalanx of the great toe and across the 1st and 2nd tarsal/metatarsal joints. The orthopaedic hardware appears stable. There has been no change in alignment of the fractures involving the right foot. No new fractures or dislocations are seen. The bones are osteopenic.
--- NOTE | 2018-12-20 09:59 | DI.RAD_ITS ---
SYMPTOM/DIAGNOSIS: S/P ORIF LT FOOT FRACTURE LEFT FOOT: Three views. Comparison 11/22/18 There has been continued healing of the fractures involving the 2nd and 3rd metatarsals,. There is a side plate and screw seen transfixing the left 4th metatarsal fracture which appears to be healing. The bones are osteopenic. No new fracture or dislocation is appreciated.
== END 2018-12-20 10:34 ==
PROVIDERS: PCP Nurse Practitioner Family; Referring Provider Nurse Practitioner Family; Visit Provider Student in an Organized Health Care Education/Training Program
DX: S92.901A Unspecified fracture of right foot, initial encounter for closed fracture; S92.902A Unspecified fracture of left foot, initial encounter for closed fracture; W19.XXXA Unspecified fall, initial encounter
CPT/HCPCS: 99213; 73630

== ENCOUNTER 2019-01-27 09:53 | Outpatient (CLI) | payer MEDICARE, MEDICAID, SELFPAY ==
--- NOTE | 2019-01-27 08:50 | DI.RAD_ITS ---
SYMPTOM/DIAGNOSIS: PAIN RIGHT FOOT: 01/27 Three views were obtained and show plate and screw fixation in the tarsal metatarsal joints of the first and second ray as well as in the proximal phalanx of the great toe, alignment appears essentially unchanged in comparison with the previous films of 12/20/18. LEFT FOOT: 01/27 Three views were obtained and show plate and screw fixation of the 4th metatarsal. Alignment appears essentially unchanged in comparison with examination of 12/20/18.
== END 2019-01-27 10:13 ==
PROVIDERS: PCP Nurse Practitioner Family; Referring Provider Nurse Practitioner Family; Visit Provider Student in an Organized Health Care Education/Training Program
DX: M79.671 Pain in right foot (principal); M79.672 Pain in left foot; S93.324A Dislocation of tarsometatarsal joint of right foot, initial encounter; S92.902A Unspecified fracture of left foot, initial encounter for closed fracture; T81.89XA Other complications of procedures, not elsewhere classified, initial encounter; S92.901A Unspecified fracture of right foot, initial encounter for closed fracture
CPT/HCPCS: 99213; 73630

== ENCOUNTER 2019-02-15 09:53 | Outpatient (REF) | payer MEDICARE, MEDICAID, SELFPAY ==
[2019-02-15 22:06] LABS: Anion Gap 13.9 mmol/L (3-11); BUN 19 mg/dL (7-18); CO2 20.1 mmol/L (21.0-32.0); CREATININE 0.94 mg/dL (0.55-1.02); Calcium 8.8 mg/dL (8.5-10.1); Chloride 109 mmol/L (98-107); Glucose 105 mg/dL (70-100); Potassium 3.9 mmol/L (3.5-5.1); Sodium 143 mmol/L (136-145)
== END 2019-02-15 10:13 ==
LOC: NCHCN 09:53
PROVIDERS: PCP Nurse Practitioner Family; Visit Provider Nurse Practitioner Family
DX: I10 Essential (primary) hypertension (principal)
CPT/HCPCS: 80048; 83735

== ENCOUNTER 2019-03-09 08:15 | Day surgery (SDC) | payer MEDICARE, MEDICAID, SELFPAY ==
--- NOTE | 2019-03-09 07:41 | W.PREOPHP ---
Date of service: 03/09/19 Assessment and Plan Assessment and plan (1) Painful orthopaedic hardware: Status: Acute Assessment and plan: Jenae is a 53-year-old who has retained hardware from a Lisfranc fracture dislocation. She also has retained hardware in the setting of a nonhealing wound of the right toe for a comminuted right great toe proximal phalanx fracture. The hardware was planned to be removed at 6 months. It causes her problems and limitations ambulation and she has a nonhealing wound so I offered to go ahead and take this out at the six-month jonathan. I discussed the technical details of the surgery. I reviewed the risk and benefits. I discussed the possible comp occasions to include bleeding, infection, pain, stiffness, damage to nerves and vessels, damage to muscle tendons, skin healing complications, retained hardware, blood clot. Despite these risk, she elected to proceed. (2) Nonhealing surgical wound: Status: Acute Qualifiers: Encounter type: sequela Qualified Code(s): T81.89XS - Other complications of procedures, not elsewhere classified, sequela History of Present Illness History of Present Illness Chief Complaint: Right Foot Painful Hardware Narrative: Jenae is a 53-year-old who suffered a fall with bilateral midfoot fractures. There is also dislocation of the Lisfranc joint on the right foot. She was treated at [facility] with multiple plates and screws about the right foot. The plate and screws were planned to be removed at 6 months. She is also had some pain about the hardware and an area of difficult skin healing on the great toe, with hardware present underneath. Given the planned removal for hardware and the prominence and difficulty with healing of the great toe, I recommended hardware removal. One has been able to increase her activity level. However, she feels limited by the hardware within the right foot. She uses no assistive device to ambulate. She does report numbness and tingling to the foot. Review of Systems Review of Systems ROS Unobtainable: All systems reviewed & are unremarkable except as noted in HPI and below PFSH Medical History Asthma Chronic pain Depression Diabetes mellitus Diarrhea Dry skin Fibromyalgia Generalized anxiety disorder GERD (gastroesophageal reflux disease) Headache Heel pain, bilateral Hematuria Hyperlipidemia Hypertension Hypotension (Acute) Impingement syndrome, shoulder, left Long-term insulin use Lumbar back pain Macrocytosis (Inactive) Menopause syndrome Narcotic drug use Obesity Obstructive sleep apnea CPAP Sepsis (Inactive) Skin rash Tobacco use Urinary frequency Surgical History (Updated 03/09/19 @ 08:40 by Lavonne Bravo) Colonoscopy - MAC (11/06/17) H/O carpal tunnel repair (Chronic) Bilateral H/O elbow surgery (Acute) H/O thumb surgery (Acute) Bilateral H/O: hysterectomy (Chronic) Hx of foot surgery (Acute) bilateral S/P arthroscopy of left shoulder (Acute) 03/2017 S/P left knee arthroscopy (Acute) S/P right knee arthroscopy (Acute) ~2011 Social History Smoking/Tobacco Use Status: Current every day Tobacco Type: cigarettes Alcohol Intake: current Alcohol Intake frequency: holidays/special occasions only Drug use: Never Substance use type: does not use Details: alcohol: t-365 Household members: spouse Housing: house Number of Children: 1 current occupation: [employer]working [employer] What type of physical activity do you participate in: none Do you feel safe at home: Yes Do you feel safe in your relationship?: Yes Meds Home Medications and Allergies Home Medications Medication Instructions Recorded Confirmed Type epinephrine [EpiPen 2-Leonidas] 1 dis.syr .ROUTE DIRECTED 04/13/17 03/09/19 History aspirin 81 mg PO BID #30 tablet. 04/23/17 03/09/19 Rx walker #1 each 04/29/18 03/09/19 Rx albuterol sulfate 90 mcg/actuation 2 inh INHALATION Q4H PRN gm 06/14/18 03/09/19 History aerosol inhaler hydrocodone 5 mg-acetaminophen 325 1 tab PO TID PRN tab 06/14/18 03/09/19 History mg tablet pantoprazole 40 mg tablet,delayed 40 mg PO DAILY 06/14/18 03/09/19 History release clotrimazole 10 mg MUCOUS MEMBRANE QID 08/22/18 03/09/19 History ondansetron HCl [Zofran] 4 mg PO QID PRN #6 tab 08/22/18 03/09/19 Rx acetaminophen [Tylenol] 325 - 650 mg PO Q4H PRN PRN #0 tab 09/14/18 03/09/19 Rx albuterol sulfate 2.5 mg UPD Q2H PRN PRN #0 ml 09/14/18 03/09/19 Rx alum-mag hydroxide-simeth [Mag-Al 30 ml PO Q2H PRN PRN #0 ml 09/14/18 03/09/19 Rx Plus] ascorbic acid (vitamin C) [Vitamin 500 mg PO BID #0 tab 09/14/18 03/09/19 Rx C] azithromycin [Zithromax] 500 mg IVPB Q24H #0 ea 09/14/18 03/09/19 Rx cyanocobalamin (vitamin B-12) 1,000 mcg PO DAILY #0 tab 09/14/18 03/09/19 Rx [Vitamin B-12] docusate sodium [Colace] 100 mg PO BID #0 cap 09/14/18 03/09/19 Rx docusate sodium [Colace] 100 mg PO TID PRN PRN #0 cap 09/14/18 03/09/19 Rx ferrous sulfate 325 mg PO BID #0 tab 09/14/18 03/09/19 Rx guaifenesin [Mucinex] 600 mg PO BID #0 tab 09/14/18 03/09/19 Rx insulin aspart U-100 [Novolog 0 units SUBCUT 0800,1200,1700 #0 ml 09/14/18 01/27/19 Rx Flexpen U-100 Insulin] ipratropium-albuterol 3 ml UPD Q6H PRN PRN #0 ml 09/14/18 03/09/19 Rx magnesium hydroxide [Milk of 30 ml PO DAILY PRN PRN #0 ml 09/14/18 03/09/19 Rx Magnesia] nicotine [Nicotrol] 10 mg INHALATION Q2H PRN PRN #0 ea 09/14/18 03/09/19 Rx prochlorperazine maleate 5 mg PO Q6H PRN PRN #0 tab 09/14/18 03/09/19 Rx sucralfate 1 g PO AC & HS #0 tab 09/14/18 03/09/19 Rx ibuprofen 600 mg tablet 600 mg PO TID PRN #90 tab 12/20/18 03/09/19 Rx simvastatin 20 mg tablet 20 mg PO QPM tab 12/20/18 03/09/19 History baclofen 30 mg PO QHS 03/07/19 03/09/19 History insulin glargine [Basaglar KwikPen 13 unit SUBCUT DAILY 03/09/19 03/09/19 History U-100 Insulin] lisinopril 5 mg PO DAILY 03/09/19 03/09/19 History magnesium oxide 250 mg 03/09/19 History meclizine 25 mg PO DAILY PRN 03/09/19 03/09/19 History montelukast 10 mg PO DAILY 03/09/19 03/09/19 History ranitidine HCl 150 mg PO QHS 03/09/19 03/09/19 History topiramate 25 mg PO BID 03/09/19 03/09/19 History zolpidem 10 mg PO QHS PRN 03/09/19 03/09/19 History Allergies Allergy/AdvReac Type Severity Reaction Status Date / Time adhesive tape Allergy Intermediate Hives Unverified 03/09/19 08:36 venom-honey bee Allergy Intermediate severe Unverified 03/09/19 08:36 local reaction venom-wasp Allergy Intermediate severe Unverified 03/09/19 08:36 local reaction doxycycline Allergy Mild Unverified 03/09/19 08:36 Sulfa (Sulfonamide Allergy Mild Skin Rash Unverified 03/09/19 08:36 Antibiotics) Exam Const General: cooperative, comfortable and no acute distress Nutritional Appearance: average body habitus Orientation: alert, awake and oriented x3 Resp Effort & Inspection: normal respiratory effort, able to speak in complete sentences and no respiratory distress Auscultation: bronchial breath sounds Cardio Rate: regular rate Rhythm: regular rhythm Extrem Other: Evaluation of the right foot shows well-healed incisions. There is a very small eschar seen over the great toe. There is decreased sensation in the distribution of the superficial peroneal and deep peroneal nerve. There are no signs of active infection. Mild edema. Palpable PT pulse. Capillary refill less than 2 seconds.
--- NOTE | 2019-03-09 08:33 | DI.RAD_ITS ---
EXAM: XR FOOT RT LIMITED CLINICAL HISTORY: Hardware removal right foot TECHNIQUE: C-arm fluoroscopy 31.2 sec, 0.47 mGy COMPARISON: XR foot LT complete from 01/27/2019 FINDINGS: Fluoroscopy was provided for Dr. Peña in the OR. Hard copy images show removal of the previousl y noted fixation plate along the proximal aspect of 4th metatarsal. A small metallic fragment remain s present.
[2019-03-09 09:02] VITALS: BP 133/73; PULSE 76; RESP 20; TEMP 36.8; O2SAT 98
[2019-03-09] MEDS: Lactated Ringers 1,000 ML 80 ML IV (09:30)
[2019-03-09] MEDS: ceFAZolin 2 GM/50 ML BAG IVPB (09:46)
--- NOTE | 2019-03-09 09:59 | PDOC.DSDIS_ITS ---
Documented by User: Krystal Albertsxon 03/09/19 10:02 Discharge Plan Disposition Patient Disposition: HOME Condition: Good Discharge Details Reason For Visit: Hardware removal from right foot Attending Provider: Delvin Peña Primary Care Provider: Yamile De Leon Home Meds and New Rx's Prescriptions: New acetaminophen 500 mg tablet 500 mg PO Q6H PRN (Reason: pain) Qty: 60 RF: 2 hydrocodone-acetaminophen 5-325 mg tablet 1 tab PO Q4H PRN (Reason: pain) Qty: 14 RF: 0 Continued (DME) stone cochranc See Dose Instructions .ROUTE .MEDSUPPLY Qty: 1 RF: 0 pantoprazole 40 mg tablet,delayed release (DR/EC) 40 mg PO DAILY RF: 0 hydrocodone-acetaminophen 5-325 mg tablet 1 tab PO TID PRNRF: 0 ibuprofen 600 mg tablet 600 mg PO TID PRN (Reason: pain) Qty: 90 RF: 1 albuterol sulfate 90 mcg/actuation HFA aerosol inhaler 2 inh Inhalation Q4H PRNRF: 0 baclofen 10 mg Tablet 30 mg PO QHS RF: 0 meclizine 25 mg Tablet 25 mg PO DAILY PRNRF: 0 Basaglar KwikPen U-100 Insulin 100 unit/mL (3 mL) Insulin Pen 13 unit SUBCUT DAILY RF: 0 zolpidem 10 mg Tablet 10 mg PO QHS PRNRF: 0 ranitidine HCl 150 mg Tablet 150 mg PO QHS RF: 0 topiramate 25 mg Tablet 25 mg PO BID RF: 0 montelukast 10 mg Tablet 10 mg PO DAILY RF: 0 lisinopril 5 mg Tablet 5 mg PO DAILY RF: 0 magnesium oxide 250 mg magnesium Tablet 250 mg RF: 0 epinephrine [EpiPen 2-Leonidas] 0.3 MG/0.3 ML auto-injector 1 dis.syr .Route DIRECTED RF: 0 aspirin 81 MG tablet,delayed release (DR/EC) 81 mg PO BID Qty: 30 RF: 0 simvastatin 20 mg tablet 20 mg PO QPM RF: 0 clotrimazole 10 mg Pablito 10 mg MUCOUS MEMBRANE QID RF: 0 ondansetron HCl [Zofran] 4 mg tablet 4 mg PO QID PRN (Reason: nausea and vomiting) Qty: 6 RF: 0 acetaminophen [Tylenol] 325 mg Tablet 325 - 650 mg PO Q4H PRN PRNQty: 0 RF: 0 ipratropium-albuterol 0.5 mg-3 mg(2.5 mg base)/3 mL Solution For Nebulization 3 ml UPD Q6H PRN PRNQty: 0 RF: 0 albuterol sulfate 2.5 mg /3 mL (0.083 %) Solution For Nebulization 2.5 mg UPD Q2H PRN PRNQty: 0 RF: 0 prochlorperazine maleate 5 mg Tablet 5 mg PO Q6H PRN PRNQty: 0 RF: 0 sucralfate 1 gram Tablet 1 g PO AC & HS Qty: 0 RF: 0 Nicotrol 10 mg Cartridge 10 mg Inhalation Q2H PRN PRNQty: 0 RF: 0 magnesium hydroxide [Milk of Magnesia] 400 mg/5 mL Suspension 30 ml PO DAILY PRN PRNQty: 0 RF: 0 cyanocobalamin (vitamin B-12) [Vitamin B-12] 500 mcg Tablet 1,000 mcg PO DAILY Qty: 0 RF: 0 ascorbic acid (vitamin C) [Vitamin C] 500 mg Tablet 500 mg PO BID Qty: 0 RF: 0 ferrous sulfate 325 mg (65 mg iron) Tablet 325 mg PO BID Qty: 0 RF: 0 azithromycin [Zithromax] 500 mg Recon Soln 500 mg IVPB Q24H Qty: 0 RF: 0 docusate sodium [Colace] 100 mg Capsule 100 mg PO TID PRN PRNQty: 0 RF: 0 docusate sodium [Colace] 100 mg Capsule 100 mg PO BID Qty: 0 RF: 0 alum-mag hydroxide-simeth [Mag-Al Plus] 200-200-20 mg/5 mL Suspension 30 ml PO Q2H PRN PRNQty: 0 RF: 0 Novolog Flexpen U-100 Insulin 100 unit/mL Insulin Pen 0 units subcut 0800,1200,1700 Qty: 0 RF: 0 guaifenesin [Mucinex] 600 mg Tablet Extended Release 12hr 600 mg PO BID Qty: 0 RF: 0 Discharge Instructions Additional Instructions: Hardware Removal Discharge Instructions Activity: You are non weight bearing. You should keep the leg elevated as much as possible. You may wiggle your toes and move your hip and knee. You should wear the splint at all times. Dressings: Keep the splint on until followup. Keep it clean and dry. Medications: - You should take Tylenol around the clock for baseline pain. - You have been prescribed a stronger narcotic, Hydrocodone, for breakthrough pain. Follow-up: 2 weeks Stand Alone Forms: DSU Post op Instructions, Gisselle Perdue (DSU) Referrals: Delvin Peña MD [ [facility] STAFF PHYSICIAN] - Equipment/Supplies: Partial Weight Bearing Crutches Activity:: Elevate Remove Dressings/Wound Care:: 72 hours Shower/Bathe:: 72 hours Diet:: As Tolerated Discharge Orders Discharge Orders: Discharge Order (Routine); Ordered 03/09/19 Ordered By: Krystal Villatoro DS: Diagnosis Discharge Diagnosis (1) Painful orthopaedic hardware: Status: Acute (2) Nonhealing surgical wound: Status: Acute Documented by User: Delvin Peña MD 03/09/19 12:27 Discharge Plan Disposition Patient Disposition: HOME Condition: Good Discharge Details Reason For Visit: Hardware removal from right foot Attending Provider: Delvin Peña Primary Care Provider: Yamile De Leon Home Meds and New Rx's Prescriptions: New acetaminophen 500 mg tablet 500 mg PO Q6H PRN (Reason: pain) Qty: 60 RF: 2 hydrocodone-acetaminophen 5-325 mg tablet 1 tab PO Q4H PRN (Reason: pain) Qty: 14 RF: 0 Continued (DME) walker misc See Dose Instructions .ROUTE .MEDSUPPLY Qty: 1 RF: 0 pantoprazole 40 mg tablet,delayed release (DR/EC) 40 mg PO DAILY RF: 0 hydrocodone-acetaminophen 5-325 mg tablet 1 tab PO TID PRNRF: 0 ibuprofen 600 mg tablet 600 mg PO TID PRN (Reason: pain) Qty: 90 RF: 1 albuterol sulfate 90 mcg/actuation HFA aerosol inhaler 2 inh Inhalation Q4H PRNRF: 0 baclofen 10 mg Tablet 30 mg PO QHS RF: 0 meclizine 25 mg Tablet 25 mg PO DAILY PRNRF: 0 Basaglar KwikPen U-100 Insulin 100 unit/mL (3 mL) Insulin Pen 13 unit SUBCUT DAILY RF: 0 zolpidem 10 mg Tablet 10 mg PO QHS PRNRF: 0 ranitidine HCl 150 mg Tablet 150 mg PO QHS RF: 0 topiramate 25 mg Tablet 25 mg PO BID RF: 0 montelukast 10 mg Tablet 10 mg PO DAILY RF: 0 lisinopril 5 mg Tablet 5 mg PO DAILY RF: 0 magnesium oxide 250 mg magnesium Tablet 250 mg RF: 0 epinephrine [EpiPen 2-Leonidas] 0.3 MG/0.3 ML auto-injector 1 dis.syr .Route DIRECTED RF: 0 aspirin 81 MG tablet,delayed release (DR/EC) 81 mg PO BID Qty: 30 RF: 0 simvastatin 20 mg tablet 20 mg PO QPM RF: 0 clotrimazole 10 mg Pablito 10 mg MUCOUS MEMBRANE QID RF: 0 ondansetron HCl [Zofran] 4 mg tablet 4 mg PO QID PRN (Reason: nausea and vomiting) Qty: 6 RF: 0 acetaminophen [Tylenol] 325 mg Tablet 325 - 650 mg PO Q4H PRN PRNQty: 0 RF: 0 ipratropium-albuterol 0.5 mg-3 mg(2.5 mg base)/3 mL Solution For Nebulization 3 ml UPD Q6H PRN PRNQty: 0 RF: 0 albuterol sulfate 2.5 mg /3 mL (0.083 %) Solution For Nebulization 2.5 mg UPD Q2H PRN PRNQty: 0 RF: 0 prochlorperazine maleate 5 mg Tablet 5 mg PO Q6H PRN PRNQty: 0 RF: 0 sucralfate 1 gram Tablet 1 g PO AC & HS Qty: 0 RF: 0 Nicotrol 10 mg Cartridge 10 mg Inhalation Q2H PRN PRNQty: 0 RF: 0 magnesium hydroxide [Milk of Magnesia] 400 mg/5 mL Suspension 30 ml PO DAILY PRN PRNQty: 0 RF: 0 cyanocobalamin (vitamin B-12) [Vitamin B-12] 500 mcg Tablet 1,000 mcg PO DAILY Qty: 0 RF: 0 ascorbic acid (vitamin C) [Vitamin C] 500 mg Tablet 500 mg PO BID Qty: 0 RF: 0 ferrous sulfate 325 mg (65 mg iron) Tablet 325 mg PO BID Qty: 0 RF: 0 azithromycin [Zithromax] 500 mg Recon Soln 500 mg IVPB Q24H Qty: 0 RF: 0 docusate sodium [Colace] 100 mg Capsule 100 mg PO TID PRN PRNQty: 0 RF: 0 docusate sodium [Colace] 100 mg Capsule 100 mg PO BID Qty: 0 RF: 0 alum-mag hydroxide-simeth [Mag-Al Plus] 200-200-20 mg/5 mL Suspension 30 ml PO Q2H PRN PRNQty: 0 RF: 0 Novolog Flexpen U-100 Insulin 100 unit/mL Insulin Pen 0 units subcut 0800,1200,1700 Qty: 0 RF: 0 guaifenesin [Mucinex] 600 mg Tablet Extended Release 12hr 600 mg PO BID Qty: 0 RF: 0 Discharge Instructions Additional Instructions: Hardware Removal Discharge Instructions Activity: You are non weight bearing. You should keep the leg elevated as much as possible. You may wiggle your toes and move your hip and knee. You should wear the splint at all times. Dressings: Keep the splint on until followup. Keep it clean and dry. Medications: - You should take Tylenol around the clock for baseline pain. - You have been prescribed a stronger narcotic, Hydrocodone, for breakthrough pain. Follow-up: 2 weeks Stand Alone Forms: DSU Post op Instructions, Gisselle Perdue (DSU) Referrals: Delvin Peña MD [ [facility] STAFF PHYSICIAN] - Equipment/Supplies: Partial Weight Bearing Crutches Activity:: Elevate Remove Dressings/Wound Care:: 72 hours Shower/Bathe:: 72 hours Diet:: As Tolerated Discharge Orders Discharge Orders: Discharge Order (Routine); Ordered 03/09/19 Ordered By: Krystal Villatoro
[2019-03-09] MEDS: Bupivacaine 0.5% Pres-Free 30 ML VIAL (11:09)
[2019-03-09 11:37] VITALS: BP 131/65; PULSE 78; RESP 19; TEMP 36.6; O2SAT 93
[2019-03-09] MEDS: Albuterol/Ipratropium 3 ML UPD VIAL UPD (11:37)
[2019-03-09 11:42] VITALS: BP 125/64; PULSE 74; RESP 16; TEMP 36.6; O2SAT 93
[2019-03-09 11:47] VITALS: BP 127/68; PULSE 76; RESP 18; TEMP 36.5; O2SAT 93
[2019-03-09] MEDS: fentaNYL 100 MCG/2 ML VIAL IVP (11:55)
[2019-03-09 12:00] VITALS: BP 120/64; PULSE 75; RESP 12; TEMP 36.5; O2SAT 95
[2019-03-09 12:32] VITALS: BP 112/65; PULSE 74; RESP 20; TEMP 36.3; O2SAT 95
--- NOTE | 2019-03-10 11:18 | ROE_ITS ---
REPORT OF OPERATIVE PROCEDURE DATE OF SURGERY March 09, 2019 PREOPERATIVE DIAGNOSIS Retained orthopedic hardware of the right foot. POSTOPERATIVE DIAGNOSIS Retained orthopedic hardware of the right foot. SURGERY Removal of hardware from right foot. SURGEON Delvin Peña M.D. ANESTHESIA General. COMPLICATIONS The smaller plate of the proximal phalanx of the great toe and of the second ray was different than anticipated from received documentation and therefore the appropriate screwdriver was not in house. However, these were easily removed with a screw removal set. DISPOSITION The patient was awakened from anesthesia and taken to the PACU in stable condition. INDICATION FOR PROCEDURE Jenae is a 53-year-old who suffered a fall back in August. She suffered a Lisfranc fracture dislocation of the right foot and a fracture metatarsal on the left side. Both were treated down at [facility]. She had bridging hardware placed on the right foot, which was planned to come out at six weeks. She also had a nonhealing wound, which persisted about the right great toe over her fracture fixation. Given the persistent pain of the hardware, the planned need to remove it given that these crossed joints and the nonhealing wound of the right great toe, I offered surgical removal. I discussed the risk of the procedure to include bleeding, infection, pain, stiffness, damage to nerves and vessels, damage to muscle and tendons, re- fracture, loss of reduction, blood clot. Despite these risks, she elected to proceed. PROCEDURE DESCRIPTION Jenae was greeted in the preoperative holding area. Her identity was confirmed and the correct side was identified and marked. The consent was reviewed with the patient and signed. The history and physical was updated and the patient was taken back to the Operating Room. She was placed in the supine position. A general anesthetic was given. All bony prominences were well padded. A bump was placed underneath the right leg to elevate it off the table for better x-rays and positioning. The right leg was then prepped with ChloraPrep and draped in a standard fashion. No tourniquet was used. Prophylactic antibiotics in the form of cefazolin were given. A timeout was performed for safe surgery. Using 0.5% bupivacaine, I performed a field ankle block proving a ring of anesthetic around the location of the nerves of the ankle. I also injected the surgical sites independently. The previous incision of the great toe and of the midfoot were then made. These were taken down through the skin. Starting with the great toe, this was taken down sharply all the way to bone, being it was lateral to the extensor tendon, the plate was identified. Using a small betancourt elevator, I was able to elevate off the soft tissue and scar tissue from the plate. The T8 screwdriver, which was the planned screwdriver for removal of the screws, was found to be too big. Unfortunately, the plate size that was used was smaller than what was anticipated. However, the broken screw removal set was able to be opened and within this set, we utilized a conical reverse grain buyer, which was able to screw into the screw head and remove the screws with minimal difficulty. This was performed over the great toe and the great toe plate was removed. The mid foot incision was also then made. The extensor tendon of the toe was identified and retracted laterally. Blunt dissection was used to elevate off the scar tissue over the medial midfoot. The screws were removed with the regular T8 screwdriver and the medial plate was removed without difficulty. The second TMT plate unfortunately was with smaller screws and these were removed using the screw removal set. These were all removed without any significant difficulties. No tourniquet as used and there was no excessive bleeding. All plates were removed. The foot was checked under x-ray after plate removal and showed no signs of instability. The great toe did have some deformity to the joint surface, but there was no gross stability under live fluoroscopic examination. Once again, the deep tissues were injected with 0.5% bupivacaine. The wounds were thoroughly irrigated. The deep tissues were loosely re-approximated with #3-0 Vicryl. The skin was closed with #4-0 Nylon. The wounds were dressed with Xeroform, 4x4s, Webril and placed into a short leg splint. She was then transitioned back to the hospital stretcher and awakened from her general anesthetic. She was transferred back to the PACU in stable condition. She remained nonweightbearing with the splint for two weeks. After that, she will have a wound check and then be transitioned back to a fracture walker boot and advancing her weightbearing as tolerated. At the end of the case, all counts were correct.
== END 2019-03-09 13:05 | disposition home or self-care (01) ==
PROVIDERS: PCP Nurse Practitioner Family; Visit Provider Student in an Organized Health Care Education/Training Program
PROC: (CPT 20680; principal; 2019-03-09 09:45)
DX: T84.84XA Pain due to internal orthopedic prosthetic devices, implants and grafts, initial encounter (principal); T81.89XS Other complications of procedures, not elsewhere classified, sequela; S92.324D Nondisplaced fracture of second metatarsal bone, right foot, subsequent encounter for fracture with routine healing; S92.411D Displaced fracture of proximal phalanx of right great toe, subsequent encounter for fracture with routine healing; X58.XXXD Exposure to other specified factors, subsequent encounter; J45.909 Unspecified asthma, uncomplicated; E11.9 Type 2 diabetes mellitus without complications; K21.9 Gastro-esophageal reflux disease without esophagitis; I10 Essential (primary) hypertension; G47.33 Obstructive sleep apnea (adult) (pediatric); F17.210 Nicotine dependence, cigarettes, uncomplicated
CPT/HCPCS: 20680; NC; 73620; J0690; J1100; J2250; J3010; J7620

== ENCOUNTER 2019-03-15 16:17 | Outpatient (REF) | payer MEDICARE, MEDICAID, SELFPAY ==
[2019-03-15 21:37] LABS: Anion Gap 11.6 mmol/L (3-11); BUN 25 mg/dL (7-18); CO2 24.4 mmol/L (21.0-32.0); CREATININE 1.08 mg/dL (0.55-1.02); Calcium 9.5 mg/dL (8.5-10.1); Chloride 105 mmol/L (98-107); Estimated GFR 53.49 (mL/min/1.73m2); Glucose 123 mg/dL (70-100); Potassium 4.5 mmol/L (3.5-5.1); Sodium 141 mmol/L (136-145)
== END 2019-03-15 16:37 ==
LOC: NCHCN 16:17
PROVIDERS: PCP Nurse Practitioner Family; Visit Provider Nurse Practitioner Family
DX: K21.9 Gastro-esophageal reflux disease without esophagitis (principal); M79.7 Fibromyalgia; M79.673 Pain in unspecified foot; G89.29 Other chronic pain; F11.20 Opioid dependence, uncomplicated
CPT/HCPCS: 80048

== ENCOUNTER 2019-03-24 01:45 | Outpatient (CLI) | payer MEDICARE, MEDICAID, SELFPAY ==
--- NOTE | 2019-03-24 14:01 | DI.CT_ITS ---
EXAM: CT CHEST WO CLINICAL HISTORY: LUNG NODULE R91.8, F/U TECHNIQUE: Noncontrast COMPARISON: XR CHEST 2V PA LATERAL from 09/13/[address] dated 12 September 2018. FINDINGS: The lungs are better inflated on the current exam and there is no significant respiratory motion. No pulmonary nodule, mass, infiltrate or effusion is seen. Heart size is normal. There is no adenopathy . The visualized portions of the upper abdomen are unremarkable. IMPRESSION: Negative chest CT. No evidence of pulmonary nodules or other acute abnormality.
== END 2019-03-24 02:05 ==
PROVIDERS: PCP Nurse Practitioner Family; Visit Provider Nurse Practitioner Family
DX: R91.8 Other nonspecific abnormal finding of lung field (principal); T84.84XA Pain due to internal orthopedic prosthetic devices, implants and grafts, initial encounter; Z47.89 Encounter for other orthopedic aftercare; E11.9 Type 2 diabetes mellitus without complications; I10 Essential (primary) hypertension
CPT/HCPCS: 71250

== ENCOUNTER → 2019-04-18 08:40 | Outpatient (BNVA) | payer MEDICARE, MEDICAID, SELFPAY | PROVIDERS: PCP Nurse Practitioner Family; Referring Provider Nurse Practitioner Family; Visit Provider Student in an Organized Health Care Education/Training Program | DX: Z47.89 Encounter for other orthopedic aftercare (principal); E11.9 Type 2 diabetes mellitus without complications; I10 Essential (primary) hypertension; T84.84XD Pain due to internal orthopedic prosthetic devices, implants and grafts, subsequent encounter ==

== ENCOUNTER 2019-05-02 14:06 | Outpatient (CLI) | payer MEDICARE, MEDICAID, SELFPAY ==
[2019-05-02 15:20] LABS: Ferritin 18 ng/mL (8-252)
== END 2019-05-02 14:26 ==
PROVIDERS: PCP Nurse Practitioner Family; Visit Provider Nurse Practitioner
DX: M25.50 Pain in unspecified joint (principal)
CPT/HCPCS: 36415; 82728

== ENCOUNTER → 2019-05-16 08:36 | Outpatient (BNVA) | payer MEDICARE, MEDICAID, SELFPAY | PROVIDERS: PCP Nurse Practitioner Family; Referring Provider Nurse Practitioner Family; Visit Provider Student in an Organized Health Care Education/Training Program | DX: Z47.89 Encounter for other orthopedic aftercare (principal); I10 Essential (primary) hypertension; T84.84XD Pain due to internal orthopedic prosthetic devices, implants and grafts, subsequent encounter ==

== ENCOUNTER → 2019-06-16 09:58 | Outpatient (BNVA) | payer MEDICARE, MEDICAID, SELFPAY | PROVIDERS: PCP Nurse Practitioner Family; Referring Provider Nurse Practitioner Family; Visit Provider Student in an Organized Health Care Education/Training Program | DX: T84.84XA Pain due to internal orthopedic prosthetic devices, implants and grafts, initial encounter (principal); E11.9 Type 2 diabetes mellitus without complications; I10 Essential (primary) hypertension; Z79.4 Long term (current) use of insulin | CPT/HCPCS: 99212 ==

== ENCOUNTER 2019-08-03 16:38 | Outpatient (REF) | payer MEDICARE, MEDICAID, SELFPAY ==
[2019-08-03 20:37] LABS: Anion Gap 10.1 mmol/L (3-11); BUN 20 mg/dL (7-18); CO2 26.9 mmol/L (21.0-32.0); CREATININE 1.03 mg/dL (0.55-1.02); Calcium 8.3 mg/dL (8.5-10.1); Chloride 111 mmol/L (98-107); Estimated GFR 56.49 (mL/min/1.73m2); Glucose 117 mg/dL (74-106); Potassium 3.9 mmol/L (3.5-5.1); Sodium 148 mmol/L (136-145)
== END 2019-08-03 16:58 ==
LOC: NCHCN 16:38
PROVIDERS: PCP Nurse Practitioner Family; Visit Provider Nurse Practitioner Family
DX: I10 Essential (primary) hypertension (principal); E11.9 Type 2 diabetes mellitus without complications
CPT/HCPCS: 80048

== ENCOUNTER 2019-08-04 09:29 | Outpatient (CLI) | payer MEDICARE, MEDICAID, SELFPAY ==
[2019-08-04 11:01] LABS: Ferritin 56 ng/mL (8-252)
== END 2019-08-04 09:49 ==
PROVIDERS: PCP Nurse Practitioner Family; Visit Provider Nurse Practitioner
DX: M25.50 Pain in unspecified joint (principal)
CPT/HCPCS: 36415; 82728

== ENCOUNTER 2019-09-28 14:29 | Outpatient (REF) | payer MEDICARE, MEDICAID, SELFPAY ==
[2019-09-29 16:01] LABS: COVID-19 RT-PCR Result Not Detected ((See Note))
== END 2019-09-28 14:49 ==
LOC: NCHCN 14:29
PROVIDERS: PCP Nurse Practitioner Family; Visit Provider Physician Assistant
DX: J06.9 Acute upper respiratory infection, unspecified (principal)
CPT/HCPCS: U0003

== ENCOUNTER 2019-10-04 10:44 | Outpatient (REF) | payer MEDICARE, MEDICAID, SELFPAY ==
[2019-10-06 12:18] LABS: Campylobacter PCR Negative (Negative); Salmonella PCR Negative (Negative); Shiga Toxin PCR Negative (Negative); Shigella/Enteroinvasive Ecoli Negative (Negative)
[2019-10-06 14:48] LABS: C Difficile PCR Negative (Negative)
== END 2019-10-04 11:04 ==
LOC: NCHCN 10:44
PROVIDERS: PCP Nurse Practitioner Family; Visit Provider Nurse Practitioner Family
DX: R19.7 Diarrhea, unspecified (principal); G89.29 Other chronic pain
CPT/HCPCS: 87329; 87505; 82270; 83630; 87177; 87324; 87798

== ENCOUNTER 2019-10-11 13:29 | Outpatient (REF) | payer MEDICARE, MEDICAID, SELFPAY ==
[2019-10-11 19:19] LABS: Abs Immature Grans 0.02 k/cumm (0.0-0.09); Absolute Basophil Count 0.03 k/cumm (0.0-0.2); Absolute Eosinophil Count 1.25 k/cumm (0.0-0.7); Absolute Monocyte Count 0.65 k/cumm (0.11-0.7); Absolute Neutrophil Count 4.69 k/cumm (1.2-6.7); Basophils % 0.3; Eosinophils % 13.7; HGB 13.6 g/dL (12.0-15.5); Immature Grans % 0.2 %; Lymphocytes % 27.4; Mean Corpuscular Volume 94.1 fL (80-95); Mean Platelet Volume 11.6 fL (8.0-11.0); Monocytes % 7.1; Neutrophils % 51.3; Platelet Count 252 x1000/uL (130-400); RBC 4.25 m/cumm (4.00-5.20); RBC Distribution Width 13.1 % (11.7-14.6); White Blood Cell Count 9.14 k/cumm (4.4-10.8)
[2019-10-11 19:38] LABS: ALT 25 U/L (14-59); AST 15 U/L (15-37); Albumin 3.8 g/dL (3.4-5.0); Alkaline Phosphatase 93 U/L (46-116); Anion Gap 11.1 mmol/L (3-11); BUN 12 mg/dL (7-18); Bilirubin, Total 0.5 mg/dL (0.2-1.0); CO2 24.9 mmol/L (21.0-32.0); Calcium 8.8 mg/dL (8.5-10.1); Chloride 108 mmol/L (98-107); Glucose 111 mg/dL (74-106); Potassium 3.5 mmol/L (3.5-5.1); Sodium 144 mmol/L (136-145); Total Protein 6.6 g/dL (6.4-8.2)
[2019-10-13 10:59] LABS: IgA 71 mg/dL (85-499)
[2019-10-13 22:48] LABS: Tissue Transglutaminase Ab IgA <1.2 U/mL
== END 2019-10-11 13:49 ==
LOC: NCHCN 13:29
PROVIDERS: PCP Nurse Practitioner Family; Visit Provider Nurse Practitioner Family
DX: R19.7 Diarrhea, unspecified (principal)
CPT/HCPCS: 80053; 82784; 83516; 85025

== ENCOUNTER 2019-11-04 10:31 | Outpatient (REF) | payer MEDICARE, MEDICAID, SELFPAY ==
[2019-11-04 20:38] LABS: ALT 33 U/L (14-59); AST 16 U/L (15-37); Creatine Kinase 53 U/L (26-192)
[2019-11-04 21:09] LABS: Calculated LDL 84 mg/dL (<100); Cholesterol 159 mg/dL (<200); Ferritin 78 ng/mL (8-252); HDL Cholesterol 38 mg/dL (40-60); Triglyceride 186 mg/dL (<150)
== END 2019-11-04 10:51 ==
LOC: NCHCN 10:31
PROVIDERS: PCP Nurse Practitioner Family; Visit Provider Nurse Practitioner Family
DX: E78.5 Hyperlipidemia, unspecified (principal); E11.9 Type 2 diabetes mellitus without complications; R19.7 Diarrhea, unspecified; G47.33 Obstructive sleep apnea (adult) (pediatric)
CPT/HCPCS: 80061; 82550; 82728; 84450; 84460

== ENCOUNTER 2019-11-22 15:01 | Outpatient (CLI) | payer MEDICARE, MEDICAID, SELFPAY ==
[2019-11-22 15:19] VITALS: BP 112/73; PULSE 83; RESP 17; TEMP 36.9; O2SAT 97
--- NOTE | 2019-11-22 15:26 | PDOC.PAIN_ITS ---
Pain Clinic Procedure Note Procedure Note Procedure Note: INTRA-ARTICULAR SI JOINT INJECTION ERICKSON METZ has been referred to the [facility] for intra- articular SI joint injection. Pre-operative diagnosis: disorder of sacrum Post-operative diagnosis: same as above COMMENTS: patient has fibromyalgia and wide spread body ache and pain, however, she has constant lower back pain with radiation to hips, buttocks. She was evaluated by Ms Fiona APRN and referred for bilateral sacroiliac joint injection. Patient was interviewed and the medical record reviewed. There were no medical, pharmacologic, radiographic or other structural contraindications to attempting fluoroscopically guided intra-articular SI joint injection. Risks and expected side effects as well as potential benefit of the procedure were reviewed and voiced concerns addressed. The printed consent form was signed and witnessed. Standard time-out procedure was performed. Patient was placed in the prone position on the fluoroscopy table and automated blood pressure cuff and pulse oximeter applied. The skin entry point for approaching bilateral SI joints was identified under the most advantageous fluoroscopic view and marked. Following thorough Chlorhexadine preparation of the skin and draping and 1% lidocaine infiltration of the skin entry point and subcutaneous tissues, a 22 gauge 5'' spinal needle was placed under fluoroscopic guidance into bilateral SI joints was identified under the most advantageous fluoroscopic view and marked. Following thorough Chlorhexadine preparation of the skin and draping and 1% lidocaine infiltration of the skin entry point and subcutaneous tissues, a 22 gauge spinal needle was placed under fluoroscopic guidance into bilateral SI joint. Intra-articular placement was confirmed by a clear arthrogram resulting from the injection of 0.25ml Omnipaque 240, 1ml 0.5% Bupivocaine, and 40mg Depomedrol were injected intra-articularily with an initial reproduction of a significant component of the usual pain. Vital signs were stable throughout the procedure and were as recorded in the docflowsheet by the nursing staff. Follow up plans and appointments were discussed with the patient. Post procedure instruction was given as documented in nursing documentation and having met discharge criteria, and was discharged from the [facility]. COMMENTS: Patient reported the injection reproduced her usual pain pattern across her buttock area. Otherwise, tolerated procedure well. I personally performed the entire procedure. Gaston Clark MD Pain Management CC: Yamile De Leon
[2019-11-22] MEDS: methylPREDNISolone ACETATE 80 MG/ML VIAL IJ (15:42)
[2019-11-22] MEDS: Bupivacaine 0.5% Pres-Free 10 ML VIAL IJ (15:46)
[2019-11-22] MEDS: Omnipaque 240 MG/ML 50 ML BTL IJ (15:49)
--- NOTE | 2019-11-22 15:51 | DI.RAD_ITS ---
EXAM: XR PAIN CLINIC SACRIOILIAC 2V CLINICAL HISTORY: Dx: Sacroiliac Joint Dysfunction TECHNIQUE: 2D and realtime digital imaging was performed. CONTRAST MATERIAL: Refer to procedure report. COMPARISON: No exams were available for comparison FINDINGS: Fluoroscopy was provided for Dr. Clark during the performance of a bilateral sacroiliac joint injection . Please refer to the procedure report for complete details. Fluoro time: 19.3 seconds IMPRESSION:
[2019-11-22 15:55] VITALS: BP 132/85; PULSE 79; RESP 19; O2SAT 99
== END 2019-11-22 15:21 ==
PROVIDERS: PCP Nurse Practitioner Family; Visit Provider Internal Medicine
DX: M53.3 Sacrococcygeal disorders, not elsewhere classified (principal)
CPT/HCPCS: 27096; 72200; J1040; Q9967

== ENCOUNTER 2019-12-29 12:21 | Outpatient (REF) | payer MEDICARE, MEDICAID, SELFPAY ==
[2019-12-29 19:18] LABS: Abs Immature Grans 0.03 10^3/uL (0.0-0.06); Absolute Basophil Count 0.06 10^3/uL (0.0-0.2); Absolute Neutrophil Count 9.04 10^3/uL (1.2-6.7); Basophils % 0.5; Eosinophils % 0.8; HCT 47.7 % (36.0-46.0); HGB 15.5 g/dL (11.2-15.7); Immature Grans % 0.3; Lymphocytes % 17.7; MCH 31.4 pg (27.0-33.0); MCHC 32.5 % (32.0-36.0); MCV 96.8 fL (80-95); MPV 11.4 fL (8.0-11.0); Monocytes % 4.5; Neutrophils % 76.2; Nucleated RBC 0 %; Platelet Count 285 10^3/uL (130-400); RBC 4.93 10^6/uL (3.93-5.22); RDW 12.9 % (11.7-14.6); WBC 11.87 10^3/uL (4.4-10.8)
[2019-12-29 19:24] LABS: Absolute Eosinophil Count 0.09 10^3/uL (0.0-0.7); Absolute Monocyte Count 0.53 10^3/uL (0.1-0.8)
[2019-12-29 19:39] LABS: Anion Gap 12.4 mmol/L (3-11); BUN 13 mg/dL (7-18); C-Reactive Protein 0.59 mg/dL (0.0-0.3); CO2 25.6 mmol/L (21.0-32.0); CREATININE 0.87 mg/dL (0.55-1.02); Calcium 9.2 mg/dL (8.5-10.1); Chloride 102 mmol/L (98-107); Glucose 177 mg/dL (74-106); Potassium 3.9 mmol/L (3.5-5.1); Sodium 140 mmol/L (136-145)
[2019-12-29 20:20] LABS: ESR 26 mm/hr (0-30)
== END 2019-12-29 12:41 ==
LOC: NCHCN 12:21
PROVIDERS: PCP Nurse Practitioner Family; Visit Provider Family Medicine
DX: R19.7 Diarrhea, unspecified (principal); K52.832 Lymphocytic colitis; R68.83 Chills (without fever)
CPT/HCPCS: 80048; 85652; 85025; 86140; 87086

== ENCOUNTER 2020-01-16 11:51 | Outpatient (CLI) | payer MEDICARE, MEDICAID, SELFPAY ==
--- NOTE | 2020-01-16 | DI.MAMMO_ITS ---
EXAM: MAMMO SCREENING CLINICAL HISTORY: SCREENING, PREVENTIVE [facility],Z00.00 TECHNIQUE: Mammograms were interpreted according to the usual protocol including computer analysis w [employer] CAD system, tomosynthesis and C-view imaging. COMPARISON: FINDINGS: The breasts are of moderate density with fairly symmetrical distribution of fibroglandular tissue. N o dominant mass or clumped microcalcification is identified in either breast. The current examinatio n is compared with previous examinations including September 2017 and there has been no gross interval rankin ge in appearance in comparison with the prior studies. IMPRESSION: No specific evidence of malignancy at this time. Routine screening examinations are suggested at ye nirali intervals in this age group according to the ACS ACR guidelines. BI-RADS Category 1 - Negative Breast Density - Category B - Scattered areas of fibroglandular density
== END 2020-01-16 12:11 ==
PROVIDERS: PCP Nurse Practitioner Family; Visit Provider Nurse Practitioner Family
DX: Z12.31 Encounter for screening mammogram for malignant neoplasm of breast (principal); R92.2 Inconclusive mammogram
CPT/HCPCS: 77063; 77067

== ENCOUNTER 2020-03-19 11:59 | Outpatient (REF) | payer MEDICARE, MEDICAID, SELFPAY ==
[2020-03-19 19:53] LABS: Vitamin D 25 Total 20.4 ng/ml (30-100)
== END 2020-03-19 12:19 ==
LOC: NCHCN 11:59
PROVIDERS: PCP Nurse Practitioner Family; Visit Provider Nurse Practitioner Family
DX: M54.5 Low back pain (principal); M79.7 Fibromyalgia; J34.89 Other specified disorders of nose and nasal sinuses; Z68.33 Body mass index [BMI] 33.0-33.9, adult
CPT/HCPCS: 82306

== ENCOUNTER 2020-04-16 10:22 | Outpatient (REF) | payer MEDICARE, MEDICAID, SELFPAY ==
[2020-04-19 23:30] LABS: Patient Race White; SARS-CoV-2 RNA Undetected (Undetected); SARS-CoV-2 Specimen Source Nasal
== END 2020-04-16 10:42 ==
LOC: NCHCN 10:22
PROVIDERS: PCP Nurse Practitioner Family; Visit Provider Nurse Practitioner Family
DX: J06.9 Acute upper respiratory infection, unspecified (principal)
CPT/HCPCS: U0003

== ENCOUNTER 2020-06-12 11:17 | Outpatient (REF) | payer MEDICARE, MEDICAID, SELFPAY ==
[2020-06-12 16:02] LABS: BUN 15 mg/dL (7-18); CREATININE 1.02 mg/dL (0.55-1.02); Calcium 8.6 mg/dL (8.5-10.1); Chloride 107 mmol/L (98-107); Estimated GFR 56.91 (mL/min/1.73m2); Glucose 209 mg/dL (74-106); Potassium 3.7 mmol/L (3.5-5.1); Sodium 142 mmol/L (136-145)
== END 2020-06-12 11:37 ==
LOC: NCHCN 11:17
PROVIDERS: PCP Nurse Practitioner Family; Visit Provider Nurse Practitioner Family
DX: I10 Essential (primary) hypertension (principal)
CPT/HCPCS: 80048

== ENCOUNTER 2020-07-11 15:00 | Outpatient (REF) | payer MEDICARE, MEDICAID, SELFPAY ==
[2020-07-14 17:53] LABS: Codeine Negative ng/mL (Cutoff: 25); Dihydrocodeine Negative ng/mL (Cutoff: 25); Hydrocodone Negative ng/mL (Cutoff: 25); Hydromorphone Negative ng/mL (Cutoff: 25); Morphine Negative ng/mL (Cutoff: 25); Naloxone Negative ng/mL (Cutoff: 25); Norhydrocodone Negative ng/mL (Cutoff: 25); Noroxycodone Negative ng/mL (Cutoff: 25); Noroxymorphone Negative ng/mL (Cutoff: 25); Opiates Interpretation Negative.
== END 2020-07-11 15:01 | disposition home or self-care (01) ==
LOC: NCHCN 15:00
PROVIDERS: PCP Nurse Practitioner Family; Visit Provider Nurse Practitioner Family
DX: G89.29 Other chronic pain (principal); M54.5 Low back pain; Z79.891 Long term (current) use of opiate analgesic
CPT/HCPCS: 80361; 80362

== ENCOUNTER 2020-08-08 19:05 | Outpatient (REF) | payer MEDICARE, MEDICAID, SELFPAY | END 2020-08-08 19:06 | disposition home or self-care (01) | LOC: NCHCN 19:05 | PROVIDERS: PCP Nurse Practitioner Family; Visit Provider Nurse Practitioner Family | DX: G89.29 Other chronic pain (principal); Z79.891 Long term (current) use of opiate analgesic; I10 Essential (primary) hypertension | CPT/HCPCS: 80373 ==

== ENCOUNTER 2020-09-21 15:31 | Outpatient (CLI) | payer MEDICARE, MEDICAID, SELFPAY ==
--- NOTE | 2020-09-21 09:15 | DI.RAD_ITS ---
Exam(s) XR KNEE RT 3V AP,LAT,ARMIDA EXAM: XR KNEE RT 3V AP,LAT,ARMIDA CLINICAL HISTORY: RIGHT KNEE PAIN. TECHNIQUE: 2D digital imaging was performed. COMPARISON: CR XR knee RT 3V AP,lat,armida from 06/14/2018 CR XR KNEE LT 3V AP,LAT,ARMIDA from 09/21/2020 FINDINGS: BONES: No acute fracture is present. No bony destructive lesion is seen. There is an enthesophyte at the superior patella. JOINTS: The knee is normally aligned. No joint effusion is seen. Degenerative changes are seen in the right knee with joint space narrowing, subchondral sclerosis and cysts. The findings are most marke d in the lateral femoral tibial joint space and appears stable. SOFT TISSUE: Normal. IMPRESSION: Stable degenerative changes of the right knee. DATA REPOSITORY: RADIATION DOSE DELIVERED:
--- NOTE | 2020-09-21 09:15 | DI.RAD_ITS ---
Exam(s) XR KNEE LT 3V AP,LAT,ARMIDA EXAM: XR KNEE LT 3V AP,LAT,ARMIDA CLINICAL HISTORY: LEFT KNEE PAIN. TECHNIQUE: 2D digital imaging was performed. COMPARISON: No previous for comparison. FINDINGS: BONES: No acute fracture is present. No bony destructive lesion is seen. There are small enthesophyt es at both the inferior and superior patella. JOINTS: The knee is normally aligned. No joint effusion is seen. SOFT TISSUE: Normal. IMPRESSION: Unremarkable x-rays of the left knee. DATA REPOSITORY: RADIATION DOSE DELIVERED:
== END 2020-09-21 15:51 ==
PROVIDERS: PCP Nurse Practitioner Family; Visit Provider Student in an Organized Health Care Education/Training Program
DX: M77.11 Lateral epicondylitis, right elbow; M12.571 Traumatic arthropathy, right ankle and foot; Z87.81 Personal history of (healed) traumatic fracture; M25.562 Pain in left knee; M25.561 Pain in right knee; M17.11 Unilateral primary osteoarthritis, right knee
CPT/HCPCS: 73562; 99213

== ENCOUNTER 2020-10-03 12:45 | Outpatient (REF) | payer MEDICARE, MEDICAID, SELFPAY ==
[2020-10-03 17:00] LABS: ALT 27 U/L (14-59); AST 18 U/L (15-37); Calculated LDL 111 mg/dL (<100); Cholesterol 199 mg/dL (<200); HDL Cholesterol 36 mg/dL (40-60); Triglyceride 263 mg/dL (<150)
[2020-10-03 17:19] LABS: Creatine Kinase 65 U/L (26-192)
[2020-10-04 01:11] LABS: Vitamin D 25 Total 32.6 ng/mL (30-100)
== END 2020-10-03 12:46 | disposition home or self-care (01) ==
LOC: NCHCN 12:45
PROVIDERS: PCP Nurse Practitioner Family; Visit Provider Nurse Practitioner Family
DX: E78.5 Hyperlipidemia, unspecified (principal); Z68.34 Body mass index [BMI] 34.0-34.9, adult; G89.29 Other chronic pain; Z79.891 Long term (current) use of opiate analgesic
CPT/HCPCS: 80061; 82306; 82550; 84450; 84460

== ENCOUNTER 2020-10-11 14:07 | Outpatient (CLI) | payer MEDICARE, MEDICAID, SELFPAY ==
--- NOTE | 2020-10-11 13:45 | DI.RAD_ITS ---
Exam(s) XR KNEE RT 1V EXAM: XR KNEE RT 1V CLINICAL HISTORY: preop. TECHNIQUE: 2D digital imaging was performed. COMPARISON: CR XR KNEE RT 3V AP,LAT,ARMIDA from 09/21/2020 FINDINGS: Single lateral view of the right knee reveals no evidence of fracture. There is a mild amount of inc reased joint fluid. Mild degenerative changes. There is a loose intra-articular body noted posterio rly in the joint space. IMPRESSION: DATA REPOSITORY: RADIATION DOSE DELIVERED:
--- NOTE | 2020-10-11 13:45 | DI.RAD_ITS ---
Exam(s) XR STANDING ALIGNMENT EXAM: XR STANDING ALIGNMENT CLINICAL HISTORY: pre op. TECHNIQUE: 2D digital imaging was performed. COMPARISON: CR XR KNEE RT 3V AP,LAT,ARMIDA from 09/21/2020 FINDINGS: There are moderate-advanced degenerative changes in the medial compartment of the right knee. Lesser amount degenerative changes noted in the opposite-left knee. Hips appear unremarkable. Ankles unre markable. No osseous lesions. IMPRESSION: DATA REPOSITORY: RADIATION DOSE DELIVERED:
== END 2020-10-11 14:08 | disposition home or self-care (01) ==
LOC: DIORS 14:08
PROVIDERS: PCP Nurse Practitioner Family; Referring Provider Nurse Practitioner Family; Visit Provider Physician Assistant Surgical
DX: Z01.818 Encounter for other preprocedural examination (principal); M17.11 Unilateral primary osteoarthritis, right knee; M25.461 Effusion, right knee; M23.41 Loose body in knee, right knee
CPT/HCPCS: 73560; 77073

== ENCOUNTER 2020-10-29 04:39 | Outpatient (CLI) | payer MEDICARE, MEDICAID, SELFPAY ==
[2020-10-29 10:50] LABS: HCT 42.4 % (36.0-46.0); HGB 14.3 g/dL (11.2-15.7); MCH 31.6 pg (27.0-33.0); MCHC 33.7 % (32.0-36.0); MCV 93.8 fL (80-95); MPV 10.7 fL (8.0-11.0); Platelet Count 228 10^3/uL (130-400); RBC 4.52 10^6/uL (3.93-5.22); RDW-SD 44.9 fL
[2020-10-29 10:58] LABS: Source Nasal/Nares
[2020-10-29 11:42] LABS: Anion Gap 9.8 mmol/L (3-11); BUN 15 mg/dL (7-18); CO2 27.2 mmol/L (21.0-32.0); CREATININE 1.3 mg/dL (0.55-1.02); Calcium 9.1 mg/dL (8.5-10.1); Chloride 105 mmol/L (98-107); Estimated GFR 42.85 (mL/min/1.73m2); Glucose 182 mg/dL (74-106); Potassium 3.8 mmol/L (3.5-5.1); Sodium 142 mmol/L (136-145)
[2020-10-29 13:05] LABS: COVID-19 PCR Negative (Negative)
== END 2020-10-29 04:40 | disposition home or self-care (01) ==
LOC: LBO 04:39
PROVIDERS: PCP Nurse Practitioner Family; Visit Provider Student in an Organized Health Care Education/Training Program
DX: M25.561 Pain in right knee (principal); M17.11 Unilateral primary osteoarthritis, right knee; Z20.822 Contact with and (suspected) exposure to COVID-19; Z01.818 Encounter for other preprocedural examination; Z01.812 Encounter for preprocedural laboratory examination
CPT/HCPCS: 36415; 80048; 85027; 87635; 83036

== ENCOUNTER 2020-10-31 09:30 | Day surgery (SDC) | payer MEDICARE, MEDICAID, SELFPAY ==
[2020-10-31] VITALS (9 sets, daily range): BP systolic 128–170; BP diastolic 73–87; PULSE 64–88; RESP 15–19; TEMP 36.3–36.8; O2SAT 96–99; BMI 34.4
[2020-10-31] MEDS: Acetaminophen 500 MG TAB 1000 MG PO (09:55)
[2020-10-31] MEDS: Celecoxib 200 MG CAP 400 MG PO (09:55)
[2020-10-31] MEDS: Gabapentin 300 MG CAP PO (09:56)
[2020-10-31] MEDS: Lactated Ringers 1,000 ML 80 ML IV (09:56)
--- NOTE | 2020-10-31 10:27 | DSE_ITS ---
Documented by User: LILLY Mello 10/31/20 10:34 Date of service: 10/31/20 DS: Diagnosis Discharge Diagnosis (1) Osteoarthritis of right knee: Status: Acute Discharge Plan Disposition Patient Disposition: HOME Condition: Stable Discharge Details Reason For Visit: total knee Attending Provider: Delvin Peña Primary Care Provider: Yamile De Leon Home Meds and New Rx's Prescriptions: New aspirin 81 mg tablet,delayed release (DR/EC) 81 mg PO BID Qty: 60 RF: 0 celecoxib [Celebrex] 200 mg capsule 200 mg PO BID Qty: 60 RF: 0 gabapentin 300 mg capsule 300 mg PO QHS Qty: 14 RF: 0 oxycodone 5 mg tablet 5 mg PO Q4H PRNQty: 18 RF: 0 pantoprazole [Protonix] 40 mg tablet,delayed release (DR/EC) 40 mg PO DAILY Qty: 30 RF: 0 acetaminophen [Tylenol Extra Strength] 500 mg tablet 500 mg PO Q6H PRNQty: 90 RF: 0 Discontinued ibuprofen 600 mg tablet 600 mg PO TID PRN (Reason: pain) Qty: 90 RF: 1 acetaminophen 500 mg tablet 500 mg PO Q6H PRN (Reason: pain) Qty: 60 RF: 2 No Action (DME) stone cochranc See Dose Instructions .ROUTE .MEDSUPPLY Qty: 1 RF: 0 estradiol [Vagifem] 10 mcg tablet 10 mcg vaginal DAILY 14 Days Qty: 24 RF: 4 tramadol 50 mg tablet 50 mg PO TID PRNRF: 0 ascorbate calcium (vitamin C) 500 mg tablet 500 mg PO DAILY RF: 0 ferrous sulfate 325 mg (65 mg iron) tablet 325 mg PO DAILY RF: 0 albuterol sulfate 90 mcg/actuation HFA aerosol inhaler 2 inh Inhalation Q4H PRNRF: 0 zolpidem 10 mg Tablet 10 mg PO QHS PRNRF: 0 topiramate 25 mg Tablet 25 mg PO BID RF: 0 montelukast 10 mg Tablet 10 mg PO DAILY RF: 0 baclofen 10 mg tablet 10 mg PO TID RF: 0 Basaglar KwikPen U-100 Insulin 100 unit/mL (3 mL) insulin pen 8 unit SUBCUT DAILY RF: 0 epinephrine [EpiPen 2-Leonidas] 0.3 MG/0.3 ML auto-injector 1 dis.syr .Route DIRECTED RF: 0 simvastatin 20 mg tablet 40 mg PO QPM RF: 0 clotrimazole 10 mg Pablito 10 mg MUCOUS MEMBRANE QID RF: 0 ondansetron HCl [Zofran] 4 mg tablet 4 mg PO QID PRN (Reason: nausea and vomiting) Qty: 6 RF: 0 ipratropium-albuterol 0.5 mg-3 mg(2.5 mg base)/3 mL Solution For Nebulization 3 ml UPD Q6H PRN PRNQty: 0 RF: 0 prochlorperazine maleate 5 mg Tablet 5 mg PO Q6H PRN PRNQty: 0 RF: 0 Nicotrol 10 mg Cartridge 10 mg Inhalation Q2H PRN PRNQty: 0 RF: 0 magnesium hydroxide [Milk of Magnesia] 400 mg/5 mL Suspension 30 ml PO DAILY PRN PRNQty: 0 RF: 0 docusate sodium [Colace] 100 mg Capsule 100 mg PO BID Qty: 0 RF: 0 guaifenesin [Mucinex] 600 mg Tablet Extended Release 12hr 600 mg PO BID Qty: 0 RF: 0 Discharge Instructions Additional Instructions: Total Knee Discharge Instructions Activity: The most important activity is to walk. You should try to take short walks a few times a day. It is important that when resting you work on keeping the knee straight. Avoid putting a pillow behind the knee as this will encourage flexion. Work on range of motion exercises as provided by Physical Therapy. - Start outpatient physical therapy within 2 weeks. - You should wear the DOLORES hose on both legs for 2 weeks. You may remove these at night. You may also use any compression sock in place of the DOLORES hose. Dressing: You may remove the Blanco wrap on your leg 2 days after your surgery and put on the DOLORES stocking given to you from the hospital. Keep the surgical dressing (underneath the BLANCO wrap) in place for at least one week. After the first week it may be removed and replaced with light gauze and tape or nothing. The wound and dressing may get wet after 3 days but avoid soaking the dressing or otherwise it will need to be changed. Many people prefer covering the dressing with cling wrap (saran wrap) to minimize it from getting soaked. If it gets wet, just pat dry. If it starts to peel off then it will need to be changed. Medications: - You should take Tylenol and anti-inflammatory Celebrex as your primary pain control medications. If the Celebrex is too expensive or not covered, please call the office for another alternative (Advil/Ibuprofen or Naproxen/Aleve) - You have been prescribed a stronger pain medication Oxycodone for breakthrough pain, take as needed as prescribed. - You have also been prescribed a stomach acid reduction agent Pantoprozole to help reduce stomach acid and reflux. - You have been prescribed Gabapentin to take at night for restlessness and nerve pain. - You will be taking Aspirin 81mg twice a day for DVT prevention unless instructed otherwise. - If you have constipation you should take Colace or Miralax (both [id number]). It takes most people 3-4 days to have a bowel movement. Follow-up: 2 weeks If you have any acute concerns or questions, please do not hesitate to contact the office at [phone]. You may contact Dr. Peña with any questions after hours through the hospital at [phone] or on his cell phone at [phone]. Referrals: Delvin Peña MD [ [facility] STAFF PHYSICIAN] - Equipment/Supplies: Walker Activity:: Activity as Tolerated Remove Dressings/Wound Care:: Do Not Remove Shower/Bathe:: 72 hours Diet:: As Tolerated Discharge Orders Discharge Orders: Discharge Order (Routine); Ordered 10/31/20 Ordered By: Delvin Peña DS: Data Vitals/I&O Vitals and I&O: Vital Signs Temperature 97.5 F L 10/31/20 09:35 Pulse 88 10/31/20 09:35 Pulse Rhythm Regular 10/31/20 09:35 Respiratory Rate 16 10/31/20 09:35 Respiratory Depth Normal 10/31/20 09:35 Blood Pressure 154/87 H 10/31/20 09:35 Pulse Oximetry 98 10/31/20 09:35 Oxygen Delivery Method Room Air 10/31/20 09:35 Oxygen Flow Rate 0 10/31/20 09:35 Intake & Output 10/30/20 10/30/20 10/31/20 11:59 23:59 11:59 Weight 187 lb 0.008 oz 182 lb 5.156 oz [facility] Medical History Asthma Chronic pain Depression Diabetes mellitus Diarrhea Dry skin Fibromyalgia Generalized anxiety disorder GERD (gastroesophageal reflux disease) Headache Heel pain, bilateral Hematuria History of foot fracture B/L Hyperlipidemia Hypertension Hypotension pt. stated this is related to her medication, and her BP fluctuates Impingement syndrome, shoulder, left Long-term insulin use Lumbar back pain Macrocytosis Menopause syndrome Narcotic drug use pt. denies this Obesity Obstructive sleep apnea CPAP Sepsis Skin rash Tobacco use Urinary frequency Surgical History Colonoscopy - MAC (11/06/17) H/O carpal tunnel repair Bilateral H/O elbow surgery H/O thumb surgery Bilateral H/O: hysterectomy Hx of foot surgery bilateral Painful orthopaedic hardware Right foot s/p removal 03/08/2019 S/P arthroscopy of left shoulder 03/2017 S/P left knee arthroscopy S/P right knee arthroscopy ~2011 Family History Mother Diabetes Other Fibromyalgia Social History Smoking/Tobacco Use Status: Current every day Tobacco Type: cigarettes Smoking risk assessment performed?: Yes Alcohol Intake: current Alcohol Intake frequency: holidays/special occasions only Drug use: Never Substance use type: does not use Household members: spouse Housing: house Number of Children: 1 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 Documented by User: Delvin Peña MD 10/31/20 13:59 Discharge Plan Disposition Patient Disposition: HOME Condition: Stable Discharge Details Reason For Visit: total knee Attending Provider: Delvin Peña Primary Care Provider: Yamile De Leon Home Meds and New Rx's Prescriptions: New aspirin 81 mg tablet,delayed release (DR/EC) 81 mg PO BID Qty: 60 RF: 0 celecoxib [Celebrex] 200 mg capsule 200 mg PO BID Qty: 60 RF: 0 gabapentin 300 mg capsule 300 mg PO QHS Qty: 14 RF: 0 oxycodone 5 mg tablet 5 mg PO Q4H PRNQty: 18 RF: 0 pantoprazole [Protonix] 40 mg tablet,delayed release (DR/EC) 40 mg PO DAILY Qty: 30 RF: 0 acetaminophen [Tylenol Extra Strength] 500 mg tablet 500 mg PO Q6H PRNQty: 90 RF: 0 Discontinued ibuprofen 600 mg tablet 600 mg PO TID PRN (Reason: pain) Qty: 90 RF: 1 acetaminophen 500 mg tablet 500 mg PO Q6H PRN (Reason: pain) Qty: 60 RF: 2 No Action (DME) walker misc See Dose Instructions .ROUTE .MEDSUPPLY Qty: 1 RF: 0 estradiol [Vagifem] 10 mcg tablet 10 mcg vaginal DAILY 14 Days Qty: 24 RF: 4 tramadol 50 mg tablet 50 mg PO TID PRNRF: 0 ascorbate calcium (vitamin C) 500 mg tablet 500 mg PO DAILY RF: 0 ferrous sulfate 325 mg (65 mg iron) tablet 325 mg PO DAILY RF: 0 albuterol sulfate 90 mcg/actuation HFA aerosol inhaler 2 inh Inhalation Q4H PRNRF: 0 zolpidem 10 mg Tablet 10 mg PO QHS PRNRF: 0 topiramate 25 mg Tablet 25 mg PO BID RF: 0 montelukast 10 mg Tablet 10 mg PO DAILY RF: 0 baclofen 10 mg tablet 10 mg PO TID RF: 0 Basaglar KwikPen U-100 Insulin 100 unit/mL (3 mL) insulin pen 8 unit SUBCUT DAILY RF: 0 epinephrine [EpiPen 2-Leonidas] 0.3 MG/0.3 ML auto-injector 1 dis.syr .Route DIRECTED RF: 0 simvastatin 20 mg tablet 40 mg PO QPM RF: 0 clotrimazole 10 mg Pablito 10 mg MUCOUS MEMBRANE QID RF: 0 ondansetron HCl [Zofran] 4 mg tablet 4 mg PO QID PRN (Reason: nausea and vomiting) Qty: 6 RF: 0 ipratropium-albuterol 0.5 mg-3 mg(2.5 mg base)/3 mL Solution For Nebulization 3 ml UPD Q6H PRN PRNQty: 0 RF: 0 prochlorperazine maleate 5 mg Tablet 5 mg PO Q6H PRN PRNQty: 0 RF: 0 Nicotrol 10 mg Cartridge 10 mg Inhalation Q2H PRN PRNQty: 0 RF: 0 magnesium hydroxide [Milk of Magnesia] 400 mg/5 mL Suspension 30 ml PO DAILY PRN PRNQty: 0 RF: 0 docusate sodium [Colace] 100 mg Capsule 100 mg PO BID Qty: 0 RF: 0 guaifenesin [Mucinex] 600 mg Tablet Extended Release 12hr 600 mg PO BID Qty: 0 RF: 0 Discharge Instructions Additional Instructions: Total Knee Discharge Instructions Activity: The most important activity is to walk. You should try to take short walks a few times a day. It is important that when resting you work on keeping the knee straight. Avoid putting a pillow behind the knee as this will encourage flexion. Work on range of motion exercises as provided by Physical Therapy. - Start outpatient physical therapy within 2 weeks. - You should wear the DOLORES hose on both legs for 2 weeks. You may remove these at night. You may also use any compression sock in place of the DOLORES hose. Dressing: You may remove the Blanco wrap on your leg 2 days after your surgery and put on the DOLORES stocking given to you from the hospital. Keep the surgical dressing (underneath the BLANCO wrap) in place for at least one week. After the first week it may be removed and replaced with light gauze and tape or nothing. The wound and dressing may get wet after 3 days but avoid soaking the dressing or otherwise it will need to be changed. Many people prefer covering the dressing with cling wrap (saran wrap) to minimize it from getting soaked. If it gets wet, just pat dry. If it starts to peel off then it will need to be changed. Medications: - You should take Tylenol and anti-inflammatory Celebrex as your primary pain control medications. If the Celebrex is too expensive or not covered, please call the office for another alternative (Advil/Ibuprofen or Naproxen/Aleve) - You have been prescribed a stronger pain medication Oxycodone for breakthrough pain, take as needed as prescribed. - You have also been prescribed a stomach acid reduction agent Pantoprozole to help reduce stomach acid and reflux. - You have been prescribed Gabapentin to take at night for restlessness and nerve pain. - You will be taking Aspirin 81mg twice a day for DVT prevention unless instructed otherwise. - If you have constipation you should take Colace or Miralax (both [id number]). It takes most people 3-4 days to have a bowel movement. Follow-up: 2 weeks If you have any acute concerns or questions, please do not hesitate to contact the office at [phone]. You may contact Dr. Peña with any questions after hours through the hospital at [phone] or on his cell phone at [phone]. Referrals: Delvin Peña MD [ [facility] STAFF PHYSICIAN] - Equipment/Supplies: Walker Activity:: Activity as Tolerated Remove Dressings/Wound Care:: Do Not Remove Shower/Bathe:: 72 hours Diet:: As Tolerated Discharge Orders Discharge Orders: Discharge Order (Routine); Ordered 10/31/20 Ordered By: Delvin Peña DS: Summary Time Spent with Patient providing and/or coordinating discharge services: Less than 30 minutes Status at Discharge Functional status at discharge: uses cane/walker Overall status at discharge: patient is progressing back to baseline Mental Status: mental status grossly normal Speech and Movement: speech and movement normal Mood: congruent mood Affect: normal affect Exam Psych Mental Status: mental status grossly normal Speech and Movement: speech and movement normal Mood: congruent mood Affect: normal affect [facility] Medical History Asthma Chronic pain Depression Diabetes mellitus Diarrhea Dry skin Fibromyalgia Generalized anxiety disorder GERD (gastroesophageal reflux disease) Headache Heel pain, bilateral Hematuria History of foot fracture B/L Hyperlipidemia Hypertension Hypotension pt. stated this is related to her medication, and her BP fluctuates Impingement syndrome, shoulder, left Long-term insulin use Lumbar back pain Macrocytosis Menopause syndrome Narcotic drug use pt. denies this Obesity Obstructive sleep apnea CPAP Sepsis Skin rash Tobacco use Urinary frequency Surgical History Colonoscopy - MAC (11/06/17) H/O carpal tunnel repair Bilateral H/O elbow surgery H/O thumb surgery Bilateral H/O: hysterectomy Hx of foot surgery bilateral Painful orthopaedic hardware Right foot s/p removal 03/08/2019 S/P arthroscopy of left shoulder 03/2017 S/P left knee arthroscopy S/P right knee arthroscopy ~2011 Family History Mother Diabetes Other Fibromyalgia Social History Smoking/Tobacco Use Status: Current every day Tobacco Type: cigarettes Smoking risk assessment performed?: Yes Alcohol Intake: current Alcohol Intake frequency: holidays/special occasions only Drug use: Never Substance use type: does not use Household members: spouse Housing: house Number of Children: 1 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
--- NOTE | 2020-10-31 10:28 | W.ANESPRE ---
General Info Date of Service Date Performed: 10/31/20 Height: 5 ft 1 in Weight: 82.7 kg Body Mass Index (BMI): 34.4 Surgical Procedure: Operation Date: 10/31/20 10:25 Proposed Procedures Side Surgeon p Knee Total Arthroplasty Right Delvin Peña MD Meds Allergies and Home Medications Allergies Allergy/AdvReac Type Severity Reaction Status Date / Time adhesive tape Allergy Intermediate Hives Verified 10/31/20 09:47 venom-honey bee Allergy Intermediate severe Verified 10/31/20 09:47 local reaction venom-wasp Allergy Intermediate severe Verified 10/31/20 09:47 local reaction doxycycline Allergy Mild Verified 10/31/20 09:47 Sulfa (Sulfonamide Allergy Mild Skin Rash Verified 10/31/20 09:47 Antibiotics) Antibiotics AdvReac Mild Other (See Uncoded 10/31/20 09:47 Comment) Home Medication Medication Instructions Recorded epinephrine [EpiPen 2-Leonidas] 1 dis.syr .ROUTE DIRECTED 04/13/17 walker #1 each 04/29/18 albuterol sulfate 90 mcg/actuation 2 inh INHALATION Q4H PRN gm 06/14/18 aerosol inhaler clotrimazole 10 mg MUCOUS MEMBRANE QID 08/22/18 ondansetron HCl [Zofran] 4 mg PO QID PRN #6 tab 08/22/18 Nicotrol 10 mg INHALATION Q2H PRN PRN #0 ea 09/14/18 docusate sodium [Colace] 100 mg PO BID #0 cap 09/14/18 guaifenesin [Mucinex] 600 mg PO BID #0 tab 09/14/18 ipratropium-albuterol 3 ml UPD Q6H PRN PRN #0 ml 09/14/18 magnesium hydroxide [Milk of 30 ml PO DAILY PRN PRN #0 ml 09/14/18 Magnesia] prochlorperazine maleate 5 mg PO Q6H PRN PRN #0 tab 09/14/18 montelukast 10 mg PO DAILY 03/09/19 topiramate 25 mg PO BID 03/09/19 zolpidem 10 mg PO QHS PRN 03/09/19 ascorbate calcium (vitamin C) 500 500 mg PO DAILY 05/16/19 mg tablet tramadol 50 mg tablet 50 mg PO TID PRN 05/16/19 estradiol 10 mcg vaginal tablet 10 mcg VAGINAL DAILY 14 Days #24 06/19/20 tab baclofen 10 mg tablet 10 mg PO TID tab 09/21/20 ferrous sulfate 325 mg (65 mg 325 mg PO DAILY tab 09/21/20 iron) tablet insulin glargine 100 unit/mL (3 8 unit SUBCUT DAILY ml 09/21/20 mL) subcutaneous pen simvastatin 20 mg tablet 40 mg PO QPM tab 10/11/20 acetaminophen [Tylenol Extra 500 mg PO Q6H PRN #90 tab 10/31/20 Strength] aspirin 81 mg PO BID #60 tab 10/31/20 celecoxib [Celebrex] 200 mg PO BID #60 cap 10/31/20 gabapentin 300 mg PO QHS #14 cap 10/31/20 oxycodone 5 mg PO Q4H PRN #18 tab 10/31/20 pantoprazole [Protonix] 40 mg PO DAILY #30 tab 10/31/20 Current Visit Medications: Current Medications Generic Name Dose Route Start Last Admin Trade Name Freq PRN Reason Stop Dose Admin Acetaminophen 1,000 mg 10/31/20 06:00 10/31/20 09:55 Acetaminophen 500 Mg Tab PO 10/31/20 16:00 1,000 mg PREOP DAYANA Administration Acetaminophen 1,000 mg 10/31/20 14:00 Acetaminophen 500 Mg Tab PO TID DAYANA Aspirin 81 mg 10/31/20 20:00 Aspirin E.C. 81 Mg Tabec PO BID DAYANA Celecoxib 400 mg 10/31/20 06:00 10/31/20 09:55 Celecoxib 200 Mg Cap PO 10/31/20 16:00 400 mg PREOP DAYANA Administration Celecoxib 200 mg 10/31/20 20:00 Celecoxib 200 Mg Cap PO BID DAYANA Docusate Sodium 100 mg 10/31/20 10:22 Docusate Sodium 100 Mg Cap PO BID PRN PRN Constipation Gabapentin 300 mg 10/31/20 06:00 10/31/20 09:56 Gabapentin 300 Mg Cap PO 10/31/20 16:00 300 mg PREOP DAYANA Administration Gabapentin 300 mg 10/31/20 22:00 Gabapentin 300 Mg Cap PO HS DAYANA Hydromorphone HCl 0.5 mg 10/31/20 10:22 Hydromorphone 2 Mg/Ml Vial IVP Q2H PRN PRN Tranexamic Acid 1,000 mg/ 60 mls @ 360 mls/hr 10/31/20 06:00 Sodium Chloride IVPB 10/31/20 16:00 PREOP DAYANA Tranexamic Acid 1,000 mg/ 60 mls @ 360 mls/hr 10/31/20 06:00 Sodium Chloride IVPB 10/31/20 16:00 DIRECTED DAYANA Ringer's Solution 1,000 mls @ 80 mls/hr 10/31/20 06:00 10/31/20 09:56 IV 11/29/20 23:59 80 mls/hr INFUSION DAYANA Administration Cefazolin Sodium/Dextrose 2 gm in 50 mls @ 100 mls/hr 10/31/20 06:00 Ancef Duplex IVPB 11/29/20 23:59 PREOP DAYANA Cefazolin Sodium/Dextrose 1 gm in 50 mls @ 100 mls/hr 10/31/20 20:00 Ancef Duplex IVPB 11/01/20 12:29 Q8H DAYANA IV Miscellaneous Supplies 1 each 10/31/20 06:00 Iv Access IV 11/29/20 23:59 DIRECTED DAYANA Ondansetron HCl 4 mg 10/31/20 10:22 Ondansetron 4 Mg/2 Ml Vial IVP Q6H PRN PRN Nausea Oxycodone HCl 0 mg 10/31/20 10:22 Oxycodone 5 Mg Tab PO Q3H PRN PRN Pain Sodium Chloride 0 ml 10/31/20 06:00 Normal Saline Flush 10 Ml Syr IV 11/29/20 23:59 PRN PRN Sodium Chloride 0 ml 10/31/20 06:00 Normal Saline 10 Ml Vial IJ 11/29/20 23:59 DIRECTED PRN Sterile Water 0 ml 10/31/20 06:00 Water,Injection,Sterile 10 Ml Vial IJ 11/29/20 23:59 DIRECTED PRN PFSH Active Problems Active Problems: Problem Status Onset Code Acquired deviated nasal septum 09/12/13 J34.2 Allergic rhinitis 09/26/13 J30.9 Arthritis of left acromioclavicular joint 01/05/17 M19.012 Cephalalgia 05/09/13 R51 Hypertrophy of nasal turbinates 09/12/13 J34.3 Lymphocytic colitis 11/06/17 K52.832 Obstructive sleep apnea (adult) (pediatric) 04/21/14 G47.33 Postnasal drip 05/09/13 R09.82 Tobacco use disorder 05/09/13 F17.200 Tendinitis of left rotator cuff 01/05/17 M75.82 Rhinitis 09/12/13 J31.0 Tendinitis of right rotator cuff M75.81 Neuropathy of right lower extremity G57.91 Right lumbosacral radiculopathy M54.17 Chronic low back pain with right-sided sciatica M54.41, G89.29 Osteoarthritis of right knee M17.11 CAP (community acquired pneumonia) J18.9 COPD with acute exacerbation J44.1 GI bleed due to NSAIDs K92.2, T39.395A Encephalopathy acute G93.40 LORRI (obstructive sleep apnea) G47.33 Macrocytic anemia D53.9 Ambulatory dysfunction R26.2 Foot fracture, right S92.901A Foot fracture, left S92.902A Lung nodule R91.1 Tobacco abuse Z72.0 MANUEL (acute kidney injury) N17.9 IDDM (insulin dependent diabetes mellitus) E11.9, Z79.4 GERD (gastroesophageal reflux disease) K21.9 Discharge planning issues Z02.9 DVT prophylaxis Occult blood positive stool R19.5 Dislocation of tarsometatarsal joint of right foot S93.324A Twitching R25.3 Closed head injury S09.90XA Unwitnessed fall R29.6 Nonhealing surgical wound T81.89XA Lateral epicondylitis of right elbow M77.11 Traumatic arthritis of right foot M12.571 Painful orthopaedic hardware T84.84XA Medical History Medical History Asthma Chronic pain Depression Diabetes mellitus Diarrhea Dry skin Fibromyalgia Generalized anxiety disorder GERD (gastroesophageal reflux disease) Headache Heel pain, bilateral Hematuria History of foot fracture B/L Hyperlipidemia Hypertension Hypotension pt. stated this is related to her medication, and her BP fluctuates Impingement syndrome, shoulder, left Long-term insulin use Lumbar back pain Macrocytosis Menopause syndrome Narcotic drug use pt. denies this Obesity Obstructive sleep apnea CPAP Sepsis Skin rash Tobacco use Urinary frequency Surgical History Surgical History Colonoscopy - MAC (11/06/17) H/O carpal tunnel repair Bilateral H/O elbow surgery H/O thumb surgery Bilateral H/O: hysterectomy Hx of foot surgery bilateral Painful orthopaedic hardware Right foot s/p removal 03/08/2019 S/P arthroscopy of left shoulder 03/2017 S/P left knee arthroscopy S/P right knee arthroscopy ~2011 Tobacco Smoking/Tobacco Use Status: Current every day Tobacco Type: cigarettes Smoking cigarettes per day: 3 Alcohol Alcohol Intake: current Alcohol intake frequency: holidays/special occasions only Substance Use Substance use: Never Substance use type: does not use Vital Signs and Lab Results Vital Signs Most Recent Vital Signs in EMR: Most Recent Vital Signs Temp Pulse Resp BP Pulse Ox 36.4 C L 88 16 154/87 H 98 10/31/20 09:35 10/31/20 09:35 10/31/20 09:35 10/31/20 09:35 10/31/20 09:35 Point of Care Results Point of Care Results: Finger Stick Blood Glucose 125 10/31/20 09:43 Lab Results Blood Type / Crossmatch: No Data to Display Complete Blood Count: White Blood Count 12.20 10^3/uL (4.4-10.8) H 10/29/20 10:33 10/29/20 Red Blood Count 4.52 10^6/uL (3.93-5.22) 10/29/20 10:33 10/29/20 Hemoglobin 14.3 g/dL (11.2-15.7) 10/29/20 10:33 10/29/20 Hematocrit 42.4 % (36.0-46.0) 10/29/20 10:33 10/29/20 Platelet Count 228 10^3/uL (130-400) 10/29/20 10:33 10/29/20 Complete Metabolic Panel: Sodium Level 142 mmol/L (136-145) 10/29/20 10:33 10/29/20 Potassium Level 3.8 mmol/L (3.5-5.1) 10/29/20 10:33 10/29/20 Chloride Level 105 mmol/L (98-107) 10/29/20 10:33 10/29/20 Carbon Dioxide Level 27.2 mmol/L (21.0-32.0) 10/29/20 10:33 10/29/20 Blood Urea Nitrogen 15 mg/dL (7-18) 10/29/20 10:33 10/29/20 Creatinine 1.3 mg/dL (0.55-1.02) H 10/29/20 10:33 10/29/20 Calcium Level 9.1 mg/dL (8.5-10.1) 10/29/20 10:33 10/29/20 Glucose Level 182 mg/dL (74-106) H 10/29/20 10:33 10/29/20 Liver Function Panel: Alanine Aminotransferase (ALT/SGPT) 27 U/L (14-59) 10/03/20 12:10 10/03/20 Aspartate Amino Transf (AST/SGOT) 18 U/L (15-37) 10/03/20 12:10 10/03/20 Coagulation Panel: No Data to Display Cardiac Panel: Creatine Kinase 65 U/L (26-192) 10/03/20 12:10 10/03/20 Arterial Blood Gas: No Data to Display Venous Blood Gas: No Data to Display Pancreas Panel: No Data to Display Thyroid Panel: No Data to Display Infectious Disease: Coronavirus (COVID-19)(PCR) Negative (Negative) 10/29/20 10:38 10/29/20 Coronavirus 2019 Source Nasal/nares 10/29/20 10:38 10/29/20 Blood Cultures: No Data to Display Toxicology Panel: No Data to Display Panel: No Data to Display Imaging and Studies Imaging and Studies Carotid Artery Summary:: Date: 09/12/18SOUND: IMPRESSION: No significant internal carotid artery stenosis or plaque. Anesthesia Assessment and Plan Anesthesia History Personal History: No History of Anesthesia Complications Family History: No Family History of Anesthesia Complications Exercise Tolerance Exercise Tolerance: Metabolic Equivalents>4 Pertinent Negatives Pertinent Negatives: No Symptoms of GERD and No Major Cardiovascular Symptoms or Complaints Cardiac & Pulmonary Exam Cardiac Exam: Normal S1/S2 Heart Sounds Pulmonary Exam: Clear Bilateral Breath Sounds Airway Exam Known Difficult Airway: No Mallampati Class: 2 Mouth Opening: Normal (> 3cm) Thyromental Distance: Greater than 3 cm Neck Range of Motion: Full ROM Neck Circumference: Normal Teeth Condition: Other (Upper denture at home, lower teeth present but some missing) ASA Classification ASA Score: ASA 2 Emergency Case?: No NPO Status NPO Status: NPO Clears >2 hours, Solids >8 hours Status Status: Not Relevant due to Medical History Anesthesia Plan Resuscitation Status: Full Code Anesthesia Technique: Spinal Anesthesia Airway Planned: Natural Airway Pain Management: Surgeon and patient request nerve block Monitors Used: Standard Monitors
[2020-10-31] MEDS: ceFAZolin 2 GM/50 ML BAG IVPB (11:01)
--- NOTE | 2020-10-31 11:34 | W.ANESNERVE ---
Nerve Block Single Injection Procedure Date and Time Date Performed: 10/31/20 Procedure Start: 10:50 Location Where Procedure Performed Procedure Location: PACU Reason Performed: Postoperative Analgesia Requesting Provider: Casey Timeout Performed Timeout Performed: Yes Monitoring Used ECG, Blood Pressure, SpO2 and ETCO2 Sterility Sterility: Hand Hygiene, Surgical Cap, Surgical Mask, Sterile Gloves, Eye Protection and Chlorhexidine Sedation Given During Procedure Sedation Given (Indicate Dose Given): Versed IV Dose:: 2 mg Patient Mental Status Patient Mental Status: Sedate with meaningful communication Nerve Block 1st Nerve Block: Laterality: Right Block Type: Adductor Canal Needle / Catheter Used: 100mm SonoPlex II Local Anesthetic Bolus (Indicate Dose Given): Lidocaine used for local infiltration of skin, Injected in 3-5ml increments after negative blood aspiration and Bupivacaine 0.25% Dose:: 20 cc Additives (Indicate Dose Given): None Ultrasound: Sterile probe cover and gel used Ultrasound Image Saved?: Yes Nerve Stimulator: Not Used Paresthesia: None Procedure Tolerated: No Complications Procedure Outcome: Successful Performed By: Romain
[2020-10-31] MEDS: Bupivacaine 0.25% Pres-Free 30 ML VIAL (12:25)
[2020-10-31] MEDS: Normal Saline 20 ML VIAL (12:25)
[2020-10-31] MEDS: Ketorolac 30 MG/ML VIAL (12:25)
--- NOTE | 2020-10-31 12:39 | ROE_ITS ---
Date of service: 10/31/20 Time of Service: 12:40 Operative Note Operative Note DATE OF PROCEDURE: 10/31/20 PRE-OP DIAGNOSIS: Right Knee Osteoarthritis POST-OP DIAGNOSIS: same PROCEDURE: Right Total Knee Replacement SURGEON: Delvin Peña ASSISTANT ADMINISTRATOR: Mily Bee ANESTHESIA TYPE: Spinal Refer to Anesthesia Record ESTIMATED BLOOD LOSS: 150 PATHOLOGY: none sent TOURNIQUET TIME: 0 COMPLICATIONS: None Patient was transported to: PACU Patient's condition: stable Implants: 1. Depuy Attune Cementless Cruciate Retaining Femoral Component, Size 4 2. Depuy Attune Cementless Rotating Platform Tibial Component, Size 3 3. Depuy Attune 4x6mm CR/RP Poly 4. Depuy Attune Patellar Component, Size 32 Indications: I have seen Jenae in clinic for symptoms of knee arthritis, confirmed with radiographic findings. Jenae has exhausted nonoperative methods and was having significant limitations in daily function and desired better function and less pain. I discussed the technical details of a knee replacement. I explained the risks of the procedure to include, but not limited to, bleeding, infection, pain, stiffness, fracture, damage to nerves and vessels, damage to muscles and tendons, loosening, need for repeat procedure, blood clot and cardiopulmonary demise. Despite these risks, she elected to proceed. Findings: There was significant signs of arthritis throughout the knee. Procedure Description: Jenae was greeted in the preoperative holding area where the correct side was identified and marked. The consent was reviewed with the patient and signed. The history and physical was updated. All questions were answered. Preoperative medications were administered: Acetaminophen 1000mg, Celebrex 400mg, and Gabapentin 300mg. An adductor canal block was then administered by the anesthesia team in the PACU. Jenae was taken back to the operating room. A spinal anesthestic was then administered. The patient was placed into the supine position on the operating room table. A nonsterile tourniquet was placed high onto the leg but only used for cementing. Posts were placed for positioning during the procedure. All bony prominences were well padded. Prophylactic antibiotics in the form of Cefazolin were administered. 1g of Tranxemic Acid was given intravenously within 30 minutes of incision. The right leg was then prepped wit h Chloraprep and draped in a standard fashion with impervious stockinette. A second prep with Chloraprep was performed prior to application of Iodine impregnated skin protection. A timeout to confirm correct identity, side and site, procedure, allergies, anesthesia, and medical concerns was performed. With the knee in some flexion, a midline incision was made overlying the knee. Full thickness skin flaps were raised once the extensor mechanism was encountered. These were raised medially and laterally. Any bleeding was controlled with electrocautery. Once the extensor mechanism was fully exposed, a medial parapatellar arthrotomy was performed in a flexed position. All bleeding from the arthrotomy and the geniculate arteries was coagulated. A medial subperiosteal peel was performed with electrocautery to the midcoronal plane. The fat pad was removed while keeping the patellar tendon protected. The anterior distal femur synovium was removed for later visualization. The ACL and PCL were resected and the anterior horn of the lateral meniscus was transected. The knee was then flexed with the patella everted. Using a step drill, and based on preoperative templating, the femoral canal was entered. This was done with a step drill without any difficulty. The intramedullary distal femoral cut guide was inserted, set to a 4 degree valgus cut and 8mm cut thickness. There was some hypoplasia of the lateral femoral condyle and any remnant cartilage of the medial femoral condyle was removed for appropriate thickness. The distal femoral cut guide was then held in position and pinned. With the soft tissues protected, the distal cut was performed. This was passed over a few times to ensure a planar cut. I then turned attention to the tibia. The extramedullary guide was placed onto the leg. The distal aspect was slid medial to adjust for position of center of ankle and stay in line with shaft of the tibia. Approximately 3-5 degrees of posterior slope was kept in the proximal cutting guide. The center of the guide was aligned with the PCL. The stylus was used to assess cut thickness. The lateral side, most involved side, was set for a 4mm cut, corresponding to 8mm medially. This was then held in position and pinned into place with 2 additional pins and a cross pin for stability. The medial and lateral collateral ligaments were protected and the c ut was performed. With this completed, it was assessed and noted to be of appropriate dimensions. The guide was removed. A spacer block was inserted and the knee was brought into extension. The 6mm spacer block provided full extension, without hyperextension and with stability of both the medial and lateral collateral ligaments was assessed. The pins from the femur and the tibia were then removed. The distal femur was then sized. The anterior stylus was placed onto the lateral ridge of the anterior femur. This indicated a size 6 femur. The external rotation of the guide was adjusted to 5 degrees to match the epicondylar axis, perpendicular to [place]?s line. The 4-in-1 cutting guide was the placed. The posterior medial femur cut was evaluated and appeared of good thickness. The spacer block was inserted underneath the cutting guide and stability was confirmed in 90 degrees of flexion. An genoveva wing was used to confirm appropriate position of the anterior cut to avoid notching. This cutting guide was ensured to be flush on the cut surface and then pinned into place with headed pins. While protecting the soft tissues, quad tendon, and collateral ligaments, the anterior and posterior cuts were performed with a saw. The central two pins were removed and the posterior and anterior chamfers were cut next. The notch-cutting guide was placed. This was pinned to lateralize the femoral component as much as possible while keeping it flush on the cut surface. This was then pinned into position. A reciprocating saw was used to make the notch cut. A rasp smoothed the cut surfaces. The medial and lateral menisci were removed. A trial femoral component was then inserted, impacted down to the cut surfaces, and the lug holes were drilled. A provisional trial tibial component was placed and the knee was brought through range of motion. There was noted to be excellent extension and flexion. There was no significant instability. The patella was tracking without thumbs. A size 6mm polyethylene component provided the best range of motion and stability with less than 2mm gapping with medial and lateral stress and full extension without significant hyperextension. The tibial cut surface was fully exposed. The tibia was then sized as a 3. The tibia had been previously marked during trialing to correspond to the center of the tibial component to help with rotation. The trial was aligned to this jonathan, approximately rotated to the medial 1/3rd of the tibial tubercle. The trial was pinned into place. The tibia was prepared with a reamer and a keel punch and lug holes. The knee was then brought into extension and the patella was measured as 22mm. Using the patellar clamp and cut guide, this was resected to a flat surface with at least 13mm of thickness remaining. The size 32 patella fit the best. This was oriented and then clamped into position. The lugs were drilled. The trial components were removed. The final components were opened on the back table. The periosteal and capsular tissues, especially posteriorly, around the knee were then systematically injected with a periarticular cocktail consisting of 50cc 0.25% Marcaine, 30mg Ketorolac, 20cc of Exparal and 50cc of injectable saline. The knee was thoroughly irrigated with a pulse lavage and dried. Irrisept was also used to irrigate the tissues. On the back table, with the implants opened, the cement was mixed. One batch of high viscosity cement was prepared with vacuum assistance. After the cement was ready a small amount was placed on the cut surface of the patella and the patellar button was clamped into position and held. While the cement was hardening, the cementless knee components were placed. Starting with the tibial component, the tibia was subluxed anteriorly and the lug holes of the component were lined up. The tibia was then impacted with an impactor and mallet until the tibial component was in contact with the tibia. The final polyethylene component was inserted. Then, the femoral component was inserted. The lug holes were aligned and the component was impacted into position. The knee was irrigated with Irrisept chlorhexadine solution. This was allowed to sit in the knee for 3 minutes. After the cement had finally cured, approximately 15min, the clamp was removed from the patella and the knee was taken through range of motion. The patella was tracking with a no-thumbs technique. The capsule was then reapproximated with a No. 1 Vicryl at multiple locations. The capsule was finally closed with a No. 2 Stratafix, barbed suture. The second dosing of 1g TXA was started. Deep tissues were then reapproximated with 0 Vicryl and 2-0 Vicryl. The skin was closed with a running 3-0 Monocryl in a subcuticular fashion. This was reinforced with skin glue. A Mepilex silver dressing was applied along with a [id number] JUAN C wrap. A CryoCuff was applied. Jenae was transferred to the hospital bed without difficulty an suffering no apparent complication. Jenae has a good prognosis. Physical therapy will start today and without restrictions, weight-bearing as tolerated. Aspirin 81mg BID will be used for DVT prophylaxis.
[2020-10-31] MEDS: oxyCODONE 5 MG TAB PO (13:44)
--- NOTE | 2020-10-31 14:20 | W.ANESPOSTOP ---
Postoperative Evaluation Date, Time and Location Date Performed: 10/31/20 Time Performed: 14:20 Patient Location: Day Surgery Unit Vital Signs Most Recent Imported Vital Signs: Most Recent Vital Signs Temp Pulse Resp BP Pulse Ox 36.3 C L 64 17 165/78 H 96 10/31/20 13:14 10/31/20 13:14 10/31/20 13:14 10/31/20 13:14 10/31/20 13:14 Pain Score Most Recent Pain Score: Most Recent Pain Score Pain Level 0 10/31/20 13:14 Assessment Mental Status: Awake (Alert & Oriented to Patient Baseline) Airway and Respiratory Function: Patent airway with normal (patient baseline) respiratory exam Cardiovascular Function: Hemodynamically Stable Hydration Status: Adequately Hydrated Nausea & Vomiting: No Nausea or Vomiting Pain: Pt. Denies Any Pain Peripheral Nerve Block: Regional nerve block not resolved at time of post operative discharge Teaching Patient Teaching: Discussed Safe Use of Pain Medication Given Recent Anesthesia and Discussed Safe Use of Pain Medication Given Likely or Known LORRI
--- NOTE | 2020-10-31 15:48 | PT.INIE ---
Date of service: 10/31/20 Time of Service: 15:48 PT Notes Visit Reasons: total knee Physical Therapy Inpatient Initial Evaluation Date: 10/31/2020 Referring Doctor: LILLY Mello PT Orders: PT CONSULT: Status post ortho surgery Precautions: Fall. Standard. WBAT on R LE with AD. Patient Profile/Admitting Diagnosis: Patient is a 55-year-old male with primary unilateral osteoarthritis of the right knee and is S/P R total knee arthroplasty on postoperative day 0. PMHX: Medical History Asthma Chronic pain Depression Diabetes mellitus Diarrhea Dry skin Fibromyalgia Generalized anxiety disorder GERD (gastroesophageal reflux disease) Headache Heel pain, bilateral Hematuria History of foot fracture B/L Hyperlipidemia Hypertension Hypotension Impingement syndrome, shoulder, left Long-term insulin use Lumbar back pain Macrocytosis Menopause syndrome Narcotic drug use Obesity Obstructive sleep apnea CPAP Sepsis Skin rash Tobacco use Urinary frequency Surgical History Colonoscopy - MAC (11/06/17) H/O carpal tunnel repair Bilateral H/O elbow surgery H/O thumb surgery Bilateral H/O: hysterectomy Hx of foot surgery Bilateral Painful orthopaedic hardware Right foot s/p removal 03/08/2019 S/P arthroscopy of left shoulder 03/2017 S/P left knee arthroscopy S/P right knee arthroscopy ~2011 Social History/Home Situation: Lives with in a private home with 4 steps to enter without rails. Equipment Owned/DME: Front-wheeled walker Subjective: Denies headache, chest pain, and dizziness. Looking forward to going home today as soon as she is cleared to do so. Objective: General Observation: JUAN C wraps to right knee. Cryocuff on right knee. Mental Status: Alert and oriented as to person, place, time, and purpose. Able to pay attention, focus, and respond appropriately. Pain: 0/10 ROM: Right Upper Extremity: Shoulder Flexion WFL. Shoulder abduction WFL. Shoulder ER/IR WFL. Elbow flexion WFL. Forearm pronation/supination WFL. Wrist flexion WFL. Opening and closing of hand WFL. Left Upper Extremity: Shoulder Flexion WFL. Shoulder abduction WFL. Shoulder ER/IR WFL. Elbow flexion WFL. Forearm pronation/supination WFL. Wrist flexion WFL. Opening and closing of hand WFL. Right Lower Extremity: Hip flexion WFL. Hip abduction WFL. Hip ER/IR WFL. Knee flexion 10 to 100 degrees. Knee extension -10 degrees. Ankle dorsiflexion/eversion to neutral only. Ankle plantarflexion/inversion about 10 degrees. Left Lower Extremity: Hip flexion WFL. Hip abduction WFL. Hip ER/IR WFL. Knee flexion WFL. Knee extension. Ankle dorsiflexion WFL. Ankle plantarflexion WFL. Strength: Right Upper Extremity: Grossly of 4/5 Left Upper Extremity: Grossly 4/5 Right Lower Extremity: Hip flexors 4/5. Hip abductors 4/5. Hip external rotators 4/5. Hip internal rotators 4/5. Knee flexors 3-/5. Knee extensors 3-/5. Ankle dorsiflexors/evertors 3-/5. Ankle plantarflexors/invertors 3-/5. Left Lower Extremity: Hip flexors 4/5. Hip abductors 4/5. Hip external rotators 4/5. Hip internal rotators 4/5. Knee flexors 4/5. Knee extensors 4/5. Ankle dorsiflexors/evertors 4/5. Ankle plantarflexors/invertors 4/5. Bed Mobility/Transfers: Rolling independent Supine to sit independent Sit to supine independent Sit to stand standby assist Stand to sit standby assist Bed to chair standby assist Chair to bed standby assist Gait: Distance of 150 feet requiring standby assist with minimal verbal cues for step through gait pattern. Betzaida decreased. Step height on the right decreased. Step length on right decreased. Nurse Davalos assisting for safety. Stairs: Patient tolerated up-and-down twelve 4-inch steps and eight 6-inch step while holding onto 1 rail 1 hand and using a cane with the other hand. Patient states that can hold onto her on 1 side and she can use a cane when she goes home. Nurse Susannah assisting for safety. Balance: Static Sitting: Normal Dynamic Sitting: Normal Static Standing: Good Dynamic Standing: Fair Special Tests: Mobility Limitations Standardized Measure [facility] AM-PAC 6 clicks Basic Mobility Inpatient Short Form: Raw Score: 24 CMS Score: 0% deficit Informed Consent/Education: Patient instructed in purpose of PT consult. Packet containing exercise protocol has been given to patient. Education and training on initial set of exercises that can be done at home have been completed with patient. Assessment: Jenae requires the use of a front wheeled walker to maximize independence and reduce fall risk at home. She will have the support of her as she recovers at home. She is very motivated and goal oriented. Patient presents with clinical signs and symptoms consistent with current/admitting diagnoses that have resulted to mobility limitations, gait instability, generalized weakness, and impairment of motor control as demonstrated by the following impairment level findings: 1. Decreased strength to right major muscle groups 2. Impaired standing balance 3. Impaired activity tolerance 4. Limitation of joint range of motion in right knee Impairments are contributing to the following functional limitations: 1. Inability to safely ambulate without assistive device 2. Increase completion time for mobility ADL performance 3. Increased fall risk Patient is assessed as a 41827 moderate complexity based on the following: History: 55-year-old female with past medical history as indicated above Examination: Demonstrable impairment in strength, balance, and mobility level with underlying impairments and functional limitations as exhibited above as well as deficit score of 0% utilizing the [facility] Mobility Inpatient Short Form Presentation: Stable Decision Makin moderate complexity Goals: N/A. PT evaluation and 1-2 treatment sessions only for functional mobility training using recommended AD and for HEP instruction. Plan of Care/Treatment Plan: N/A. PT evaluation and 1-2 treatment session only for functional mobility training using recommended AD and for HEP instruction. DISCHARGE RECOMMENDATIONS: Home when medically cleared by orthopedic surgeon. Outpatient PT services in order to facilitate return to premorbid independent level without an assistive device. TREATMENT CODE/TIME: 82626 x 27 minutes beginning at 15:48 PM. Thank you for the opportunity to participate in the care of this patient. Soraya Plummer PT, DPT, CLT [facility] [place], [place]
== END 2020-10-31 16:35 | disposition home or self-care (01) ==
PROVIDERS: PCP Nurse Practitioner Family; Visit Provider Student in an Organized Health Care Education/Training Program
PROC: (CPT 27447; principal; 2020-10-31 10:15)
DX: M17.11 Unilateral primary osteoarthritis, right knee (principal); F17.210 Nicotine dependence, cigarettes, uncomplicated; E11.9 Type 2 diabetes mellitus without complications; J44.9 Chronic obstructive pulmonary disease, unspecified; G47.33 Obstructive sleep apnea (adult) (pediatric); M79.7 Fibromyalgia
CPT/HCPCS: 27447; C1776; 97162; J0690; J1885; J2001; J2250

== ENCOUNTER 2020-11-15 12:24 | Outpatient (CLI) | payer MEDICARE, MEDICAID, SELFPAY ==
--- NOTE | 2020-11-15 11:15 | DI.RAD_ITS ---
Exam(s) XR STANDING ALIGNMENT EXAM: XR STANDING ALIGNMENT CLINICAL HISTORY: 1ST POST OP R TK A. TECHNIQUE: 2D digital imaging was performed. COMPARISON: Prior x-rays 10/11/2020 FINDINGS: There has been interval placement of a right knee prosthesis which appears to be in satisfactory posi tion. No obvious loosening. Some degenerative change is noted in the opposite-left knee lateral compartment. No obvious narrowin g of the hip joint spaces but there is significant difference in the height of the hips, left being h igher than the right. There is no evidence of developmental hip dysplasia. No evidence of avascular necrosis. There is also significant difference in the height of the ankles. The talar dome of the right ankle is approximately 3.5 centimetres higher than the talar dome of the left ankle. IMPRESSION: DATA REPOSITORY: RADIATION DOSE DELIVERED:
--- NOTE | 2020-11-15 11:18 | DI.RAD_ITS ---
Exam(s) XR KNEE RT 1V EXAM: XR KNEE RT 1V CLINICAL HISTORY: 1st post op R TKA. TECHNIQUE: 2D digital imaging was performed. COMPARISON: No exams were available for comparison FINDINGS: Single lateral view of the right knee reveals satisfactory position alignment of the recently placed prosthesis components. No fracture or loosening evident. IMPRESSION: DATA REPOSITORY: RADIATION DOSE DELIVERED:
== END 2020-11-15 12:25 | disposition home or self-care (01) ==
LOC: DIORS 12:25
PROVIDERS: PCP Nurse Practitioner Family; Referring Provider Nurse Practitioner Family; Visit Provider Student in an Organized Health Care Education/Training Program
DX: Z47.1 Aftercare following joint replacement surgery (principal); Z96.651 Presence of right artificial knee joint
CPT/HCPCS: 73560; 77073

== ENCOUNTER 2020-12-13 11:06 | Outpatient (CLI) | payer MEDICARE, MEDICAID, SELFPAY ==
--- NOTE | 2020-12-13 10:30 | DI.RAD_ITS ---
Exam(s) XR KNEE RT 4V AP,LAT,ARMIDA,PAT EXAM: XR KNEE RT 4V AP,LAT,ARMIDA,PAT CLINICAL HISTORY: right TKA. TECHNIQUE: 2D digital imaging was performed. COMPARISON: CR XR KNEE RT 1V from 11/15/2020 FINDINGS: Normal position alignment of the components of the prosthesis. No fracture or loosening evident. Th ere is no radiographic evidence of osteomyelitis. IMPRESSION: DATA REPOSITORY: RADIATION DOSE DELIVERED:
== END 2020-12-13 11:07 | disposition home or self-care (01) ==
LOC: DIORS 11:06
PROVIDERS: PCP Nurse Practitioner Family; Referring Provider Nurse Practitioner Family; Visit Provider Physician Assistant
DX: Z47.1 Aftercare following joint replacement surgery (principal); Z96.651 Presence of right artificial knee joint
CPT/HCPCS: 73564

== ENCOUNTER 2020-12-20 04:25 | Outpatient (CLI) | payer MEDICARE, MEDICAID, SELFPAY ==
[2020-12-20 11:35] LABS: ESR 7 mm/hr (0-30)
[2020-12-20 11:36] LABS: Abs Immature Grans 0.02 10^3/uL (0.0-0.06); Absolute Basophil Count 0.04 10^3/uL (0.0-0.2); Absolute Lymphocyte Count 2.43 10^3/uL (1.2-3.4); Absolute Monocyte Count 0.47 10^3/uL (0.1-0.8); Absolute Neutrophil Count 5.69 10^3/uL (1.2-6.7); Basophils % 0.5; Eosinophils % 2.3; HCT 43.4 % (36.0-46.0); HGB 14.2 g/dL (11.2-15.7); Immature Grans % 0.2; Lymphocytes % 27.5; MCH 31.8 pg (27.0-33.0); MCHC 32.7 % (32.0-36.0); MCV 97.1 fL (80-95); MPV 10.2 fL (8.0-11.0); Monocytes % 5.3; Neutrophils % 64.2; Nucleated RBC 0 %; Platelet Count 267 10^3/uL (130-400); RBC 4.47 10^6/uL (3.93-5.22); RDW 12.7 % (11.7-14.6); RDW-SD 45.3 fL; WBC 8.85 10^3/uL (4.4-10.8)
[2020-12-20 12:34] LABS: C-Reactive Protein 1.24 mg/dL (0.0-0.3)
== END 2020-12-20 04:26 | disposition home or self-care (01) ==
LOC: LBO 04:25
PROVIDERS: Physician Assistant; PCP Nurse Practitioner Family; Visit Provider Student in an Organized Health Care Education/Training Program
DX: M25.561 Pain in right knee (principal); Z96.651 Presence of right artificial knee joint
CPT/HCPCS: 85652; 85025; 86140

== ENCOUNTER → 2020-12-27 09:34 | Outpatient (BNVA) | payer MEDICARE, MEDICAID, SELFPAY | PROVIDERS: PCP Nurse Practitioner Family; Referring Provider Nurse Practitioner Family | DX: Z47.1 Aftercare following joint replacement surgery (principal); Z96.651 Presence of right artificial knee joint ==

== ENCOUNTER 2021-01-02 12:29 | Outpatient (REF) | payer MEDICARE, MEDICAID, SELFPAY ==
[2021-01-04 11:36] LABS: HSV 1 DNA Result Negative (Negative); HSV 2 DNA Result Negative (Negative); Varicella Zoster DNA Result Negative (Negative)
== END 2021-01-02 12:30 | disposition home or self-care (01) ==
LOC: NCHCN 12:29
PROVIDERS: PCP Nurse Practitioner Family; Visit Provider Nurse Practitioner Family
DX: S31.829A Unspecified open wound of left buttock, initial encounter (principal); L98.8 Other specified disorders of the skin and subcutaneous tissue
CPT/HCPCS: 87529; 87798; 87070; 87205

== ENCOUNTER 2021-01-08 15:12 | Outpatient (REF) | payer MEDICARE, MEDICAID, SELFPAY ==
[2021-01-08 19:48] LABS: BUN 13 mg/dL (7-18); CREATININE 0.8 mg/dL (0.55-1.02); Calcium 8.6 mg/dL (8.5-10.1); Chloride 107 mmol/L (98-107); Glucose 157 mg/dL (74-106); Potassium 3.8 mmol/L (3.5-5.1); Sodium 143 mmol/L (136-145)
[2021-01-14 12:57] LABS: IgA 80 mg/dL (85-499); Interpretation (See Note); Tissue Transglutaminase IgA <1.2 U/mL (<4.0)
== END 2021-01-08 15:13 | disposition home or self-care (01) ==
LOC: NCHCN 15:12
PROVIDERS: PCP Nurse Practitioner Family; Visit Provider Nurse Practitioner Family
DX: I10 Essential (primary) hypertension (principal); L98.9 Disorder of the skin and subcutaneous tissue, unspecified
CPT/HCPCS: 80048; 82784; 83516

== ENCOUNTER 2021-01-17 17:19 | Outpatient (REF) | payer MEDICARE, MEDICAID, SELFPAY ==
[2021-01-17 13:46] LABS: Anion Gap 7.6 mmol/L (3-11); BUN 12 mg/dL (7-18); CO2 30.4 mmol/L (21.0-32.0); CREATININE 0.9 mg/dL (0.55-1.02); Calcium 8.6 mg/dL (8.5-10.1); Chloride 105 mmol/L (98-107); Glucose 155 mg/dL (74-106); Potassium 3.6 mmol/L (3.5-5.1); Sodium 143 mmol/L (136-145)
== END 2021-01-17 17:20 | disposition home or self-care (01) ==
LOC: NCHCN 17:19
PROVIDERS: PCP Nurse Practitioner Family; Visit Provider Nurse Practitioner Family
DX: I10 Essential (primary) hypertension (principal)
CPT/HCPCS: 80048

== ENCOUNTER 2021-01-29 14:22 | Outpatient (REF) | payer MEDICARE, MEDICAID, SELFPAY | END 2021-01-29 14:23 | disposition home or self-care (01) | LOC: NCHCN 14:22 | PROVIDERS: PCP Nurse Practitioner Family; Referring Provider Nurse Practitioner Family; Visit Provider Nurse Practitioner Family | DX: R21 Rash and other nonspecific skin eruption (principal) | CPT/HCPCS: 87077; 87070; 87186; 87205 ==

== ENCOUNTER 2021-05-22 18:55 | Outpatient (REF) | payer MEDICARE, MEDICAID, SELFPAY ==
[2021-05-25 15:30] LABS: O-desmethyltramadol 16681 ng/mL (Cutoff:25); Tramadol 9732 ng/mL (Cutoff:25)
== END 2021-05-22 18:56 | disposition home or self-care (01) ==
LOC: NCHCN 18:55
PROVIDERS: PCP Nurse Practitioner Family; Visit Provider Nurse Practitioner Family
DX: G89.29 Other chronic pain (principal)
CPT/HCPCS: 80373

== ENCOUNTER 2021-05-28 00:54 | Outpatient (CLI) | payer MEDICARE, MEDICAID, SELFPAY ==
--- NOTE | 2021-05-28 | DI.MAMMO_ITS ---
Exam(s) US BREAST RT LIMITED MG MAMMO DIAGNOSTIC BI EXAM: MG MAMMO DIAGNOSTIC BI and U/S breast RT limited CLINICAL HISTORY: BREAST LESION N64.9. TECHNIQUE: Craniocaudal and mediolateral oblique Full Field Digital Mammography views with Computer Aided Diagnosis followed by Tomosynthesis and right breast ultrasound. COMPARISON: Priors available for comparison. FINDINGS: Mammography/Tomosynthesis: Masses/Architectural Distortion: There is a new ovoid fat density lesion in the medial aspect of the right breast on the craniocaudad view. It is 8 cm from the nipple. It may represent fat necrosis/oi l cyst. Microcalcifictions: No suspicious pleomorphic-type are seen. Skin Thickening/Nipple Retraction: None. Right breast US: Echotexture: Normal appearance of the glandular tissue. Shadowing: No suspicious foci. Cyst: None. Solid lesions: There is an ovoid hypoechoic lesion measuring 0.5 x 0.3 cm at the 1 o'clock position 8 cm from the nipple. This would appear to correspond to the mammographic abnormality. Ductal dilation: None. IMPRESSION: 1. No definite evidence for malignancy at this time. 2. Lesion in the medial aspect of the right breast which is of fat density suspicious for oil cyst/fa t necrosis. A 3 month follow-up mammogram and ultrasound is recommended for re-evaluation. 3. The findings were discussed with the patient on the date of the examination. BI-RADS Category 3 - Probably Benign Finding: Recommend follow-up imaging in 3 months Breast Density - Category B - Scattered areas of fibroglandular density Breast density Category C or D implies that the patient has dense breast tissue. Dense breast tissue can make it harder to find cancer on a mammogram. Dense breast tissue is also associated with an incr eased risk of breast cancer. This information about the result of the mammogram report was provided to the patient to raise their awareness. Use this report when you speak with the patient about their risks for breast cancer, which includes their family history. At that time, you may recommend additional screening tests (Ultrasoun d or MRI) as these tests may add significant information. A negative radiographic report should not delay biopsy if a dominant or clinically suspicious mass is present. Up to ten percent of cancers are not identified on mammography. A negative report may reinforce clinical impression. Adenosis and dense breasts may obscure an underlying neoplasm. False positive reports average 6 to 10%. Patient will receive a letter notifying them of these results.
== END 2021-05-28 01:14 ==
PROVIDERS: PCP Nurse Practitioner Family; Visit Provider Nurse Practitioner Family
DX: R92.8 Other abnormal and inconclusive findings on diagnostic imaging of breast (principal); N63.12 Unspecified lump in the right breast, upper inner quadrant; N64.89 Other specified disorders of breast
CPT/HCPCS: 76642; 77062; 77066; G0279

== ENCOUNTER → 2021-06-06 14:31 | Outpatient (BNVA) | payer MEDICARE, MEDICAID, SELFPAY | PROVIDERS: PCP Nurse Practitioner Family; Referring Provider Nurse Practitioner Family; Visit Provider Physical Therapy Assistant | DX: L28.1 Prurigo nodularis (principal); R23.8 Other skin changes; J44.9 Chronic obstructive pulmonary disease, unspecified; E11.9 Type 2 diabetes mellitus without complications | CPT/HCPCS: 11400; 99214 ==

== ENCOUNTER 2021-06-06 15:56 | Outpatient (REF) | payer MEDICARE, MEDICAID, SELFPAY ==
--- NOTE | 2021-06-06 15:15 | SKI_PTH ---
PATIENT: Jenae La LOC: [facility] U#:[id number] AGE/SX: 55/F ROOM: RE06/06/[address]: LILLY Ray : 1965 BED: DIS: 06/06/2021 SPEC #: [id number] RECD: 06/06/21 17:32 STATUS: MARLA REMiguel #: [id number] VASHTI: 06/06/21 15:[address]: Alejandra Norris DEPT: Surgical Specimen RECD BY: Yue Wharton ENTERED: 06/06/21 17:33 SP TYPE: CONOR SOTELO DR: Yamile De Leon Tissues: 1 - SKIN BIOPSY(SHAVE/PUNCH) 2 - SKIN BIOPSY(SHAVE/PUNCH) Procedures: SKIN LEVEL 4 Comments: [id number]
== END 2021-06-06 15:57 | disposition home or self-care (01) ==
LOC: LBN 15:56
PROVIDERS: PCP Nurse Practitioner Family; Visit Provider Physical Therapy Assistant
DX: L28.1 Prurigo nodularis; L85.8 Other specified epidermal thickening
CPT/HCPCS: 87070; 88305

== ENCOUNTER → 2021-06-13 10:50 | Outpatient (BNVA) | payer MEDICARE, MEDICAID, SELFPAY | PROVIDERS: PCP Nurse Practitioner Family; Referring Provider Nurse Practitioner Family; Visit Provider Physical Therapy Assistant | DX: Z48.817 Encounter for surgical aftercare following surgery on the skin and subcutaneous tissue (principal); L28.1 Prurigo nodularis ==

== ENCOUNTER → 2021-06-20 10:57 | Outpatient (BNVA) | payer MEDICARE, MEDICAID, SELFPAY | PROVIDERS: PCP Nurse Practitioner Family; Referring Provider Nurse Practitioner Family; Visit Provider Physical Therapy Assistant | DX: L98.8 Other specified disorders of the skin and subcutaneous tissue (principal) | CPT/HCPCS: 11400 ==

== ENCOUNTER → 2021-07-04 08:57 | Outpatient (BNVA) | payer MEDICARE, MEDICAID, SELFPAY | PROVIDERS: PCP Nurse Practitioner Family; Referring Provider Nurse Practitioner Family; Visit Provider Physical Therapy Assistant | DX: L98.8 Other specified disorders of the skin and subcutaneous tissue (principal); L28.1 Prurigo nodularis | CPT/HCPCS: 99443 ==

== ENCOUNTER → 2021-07-11 10:19 | Outpatient (BNVA) | payer MEDICARE, MEDICAID, SELFPAY | PROVIDERS: PCP Nurse Practitioner Family; Referring Provider Nurse Practitioner Family; Visit Provider Physical Therapy Assistant | DX: L28.1 Prurigo nodularis (principal) | CPT/HCPCS: 99213 ==

== ENCOUNTER → 2021-08-01 10:41 | Outpatient (BNVA) | payer MEDICARE, MEDICAID, SELFPAY | PROVIDERS: PCP Nurse Practitioner Family; Referring Provider Nurse Practitioner Family; Visit Provider Physical Therapy Assistant | DX: L98.8 Other specified disorders of the skin and subcutaneous tissue (principal) | CPT/HCPCS: NC ==

== ENCOUNTER 2021-08-28 01:00 | Outpatient (CLI) | payer MEDICARE, MEDICAID, SELFPAY ==
--- NOTE | 2021-08-28 | DI.US_ITS ---
Exam(s) US BREAST RT COMPLETE EXAM: US BREAST RT COMPLETE CLINICAL HISTORY: 3 MO F/U, ABNL RT MAMMO. TECHNIQUE: Complete ultrasound of the breast was performed including all 4 quadrants, the retroareo lar region, and the ipsilateral axilla. COMPARISON: Prior mammograms were reviewed. FINDINGS: See combined report IMPRESSION: See combined report Appropriate follow-up is . BI-RADS Category 2 - Benign Findings Breast Density - Category B - Scattered areas of fibroglandular density Breast density Category C or D implies that the patient has dense breast tissue. Dense breast tissue can make it harder to find cancer on a mammogram. Dense breast tissue is also associated with an incr eased risk of breast cancer. This information about the result of the mammogram report was provided to the patient to raise their awareness. Use this report when you speak with the patient about their risks for breast cancer, which includes their family history. At that time, you may recommend additional screening tests (Ultrasoun d or MRI) as these tests may add significant information. A negative radiographic report should not delay biopsy if a dominant or clinically suspicious mass is present. Up to ten percent of cancers are not identified on mammography. A negative report may reinforce clinical impression. Adenosis and dense breasts may obscure an underlying neoplasm. False positive reports average 6 to 10%. Patient will receive a letter notifying them of these results.
--- NOTE | 2021-08-28 14:03 | DI.MAMMO_ITS ---
Exam(s) MG MAMMO DIAGNOSTIC UNI EXAM: MG MAMMO DIAGNOSTIC UNI -RIGHT AND COMPLETE RIGHT BREAST ULTRASOUND CLINICAL HISTORY: DIAGNOSTIC, RT BREAST ABNL MAMMO, 3 MO F/U. TECHNIQUE: Both CC and MLO view mammographic images were obtained with 3D tomosynthesis technique an d utilizing computer aided detection (CAD). Also performed complete right breast ultrasound including all 4 quadrants and the retroareolar region and scanning the right axilla. COMPARISON: Prior mammograms were reviewed, the most recent being May 2021. Prior ultrasound 05/28/2021 was also reviewed FINDINGS: DIAGNOSTIC RIGHT BREAST MAMMOGRAM: Right breast mammogram is unchanged. The benign-appearing nodule located medially is from 05/28/2021 . No new additional mammographic findings in COMPLETE RIGHT BREAST ULTRASOUND: There is again noted a single finding which is again noted to be at the 1 o'clock position and corres ponds to the finding on the. This appears unchanged ultrasound, measuring 6 by 3 millimeters. Exhib its neutral and slightly decreased through transmission. I suspect this is a form of fat necrosis. There are no other ultrasound findings in all 4 quadrants nor in the retroareolar region. Scanning of the right axilla is negative for significant adenopathy. IMPRESSION: Stable benign-appearing right breast findings. Appropriate follow-up is to keep this patient on a yearly mammogram schedule, with earlier imaging if a self detected breast change is noted.. The patient was informed of the findings and follow-up recommendations prior to leaving the [facility] today. BI-RADS Category 2 - Benign Findings Breast Density - Category B - Scattered areas of fibroglandular density Breast density Category C or D implies that the patient has dense breast tissue. Dense breast tissue can make it harder to find cancer on a mammogram. Dense breast tissue is also associated with an incr eased risk of breast cancer. This information about the result of the mammogram report was provided to the patient to raise their awareness. Use this report when you speak with the patient about their risks for breast cancer, which includes their family history. At that time, you may recommend additional screening tests (Ultrasoun d or MRI) as these tests may add significant information. A negative radiographic report should not delay biopsy if a dominant or clinically suspicious mass is present. Up to ten percent of cancers are not identified on mammography. A negative report may reinforce clinical impression. Adenosis and dense breasts may obscure an underlying neoplasm. False positive reports average 6 to 10%. Patient will receive a letter notifying them of these results.
== END 2021-08-28 01:20 ==
PROVIDERS: PCP Nurse Practitioner Family; Visit Provider Nurse Practitioner Family
DX: R92.8 Other abnormal and inconclusive findings on diagnostic imaging of breast (principal); N60.81 Other benign mammary dysplasias of right breast; N64.1 Fat necrosis of breast
CPT/HCPCS: 76642; 77061; 77065; G0279

== ENCOUNTER 2022-01-01 11:13 | Outpatient (REF) | payer MEDICARE, MEDICAID, SELFPAY ==
[2022-01-01 17:32] LABS: ALT 26 U/L (14-59); AST 13 U/L (15-37); Albumin 3.9 g/dL (3.4-5.0); Alkaline Phosphatase 72 U/L (46-116); Anion Gap 11.5 mmol/L (3-11); BUN 16 mg/dL (7-18); Bilirubin, Total 0.2 mg/dL (0.2-1.0); CO2 26.5 mmol/L (21.0-32.0); CREATININE 0.9 mg/dL (0.55-1.02); Calcium 8.8 mg/dL (8.5-10.1); Calculated LDL 158 mg/dL (<100); Chloride 105 mmol/L (98-107); Cholesterol 236 mg/dL (<200); Glucose 116 mg/dL (74-106); HDL Cholesterol 39 mg/dL (40-60); Potassium 3.6 mmol/L (3.5-5.1); Sodium 143 mmol/L (136-145); Total Protein 6.8 g/dL (6.4-8.2); Triglyceride 195 mg/dL (<150)
[2022-01-01 17:50] LABS: Creatine Kinase 28 U/L (26-192)
[2022-01-01 18:22] LABS: Hemoglobin A1C 5.8 % (<5.7)
[2022-01-02 04:51] LABS: Vitamin D 25 Total 38.3 ng/mL (30-100)
== END 2022-01-01 11:14 | disposition home or self-care (01) ==
LOC: NCHCN 11:13
PROVIDERS: PCP Nurse Practitioner Family; Visit Provider Nurse Practitioner Family
DX: E11.9 Type 2 diabetes mellitus without complications (principal); G89.29 Other chronic pain; M79.7 Fibromyalgia
CPT/HCPCS: 80053; 80061; 80373; 82306; 82550; 83036

== ENCOUNTER 2022-02-13 17:01 | Outpatient (REF) | payer MEDICARE, MEDICAID, SELFPAY ==
[2022-02-13 16:34] LABS: ALT 26 U/L (14-59); AST 12 U/L (15-37); Albumin 4.1 g/dL (3.4-5.0); Alkaline Phosphatase 91 U/L (46-116); Anion Gap 12.1 mmol/L (3-11); BUN 22 mg/dL (7-18); Bilirubin, Total 0.3 mg/dL (0.2-1.0); CO2 25.9 mmol/L (21.0-32.0); CREATININE 1.1 mg/dL (0.55-1.02); Calcium 9.1 mg/dL (8.5-10.1); Chloride 106 mmol/L (98-107); Creatine Kinase 42 U/L (26-192); Estimated GFR 59.71 (mL/min/1.73m2); Glucose 169 mg/dL (74-106); HDL Cholesterol 48 mg/dL (40-60); LDL CHOLESTEROL 105 mg/dL (<100); Potassium 3.9 mmol/L (3.5-5.1); Sodium 144 mmol/L (136-145)
--- OUTSIDE RECORDS SUMMARY | 2022-02-13 17:04 | XMS_ITS | Encounter Summary ---
:1965 Author Organization [facility] [place] [address] Care Team Providers Name Role Phone Yamile De Leon APRN Primary Care Provider Reason for Visit Reason Comments Follow-up Encounter Details Date Type Department Care Team Description 11/08/2018 Office Visit [place]rology [place] [facility] German Gu III, MD [facility] [place] [address] Hospital discharge [facility] Abdirahman Enamorado MD [facility] [place] [address] [place] [phone] Social History Tobacco Use Types Packs/Day Years Used Date Current Every Day Smoker Cigarettes 1 28 Smokeless Tobacco: Never Used Tobacco Cessation: Ready to Quit: Yes; Missy woodruff Given: Yes Comments: Currently using nicotine inhal er to help herself quit (11/08/18) Alcohol Use Standard Drinks/Week Comments Not Currently 0 (1 standard drink = 0.6 oz pure alcoho l) Sex Assigned at Date Recorded Not on file documented as of this encounter Last Filed Vital Signs Vital Sign Reading Time Taken Comments Blood Pressure 113/70 11/08/2018 12:39 PM EDT Pulse 99 11/08/2018 12:39 PM EDT Temperature - - Respiratory Rate - - Oxygen Saturation - - Inhaled Oxygen - - Concentration Weight 83 kg (183 lb) 11/08/2018 12:39 PM unable to ge t on scale EDT Height 154.9 cm (5' 1) 11/08/2018 12:39 PM reported EDT Body Mass Index 34.58 11/08/2018 12:39 PM EDT documented in this encounter Progress Notes Abdirahman Enamorado MD - 11/08/2018 1:00 PM EDT NEUROLOGY CLINIC Formerly [facility] [place] [address] Facsimile: Neurology Initial Visit: 11/08/2018 Patient name: Jenae La Date of : 1965 CC: Post hospital follow-up for possible seizure-like activity Jenae aL is seen today for follow-up regarding possible seizure-like activity while admitted to [facility] in August 2018. HPI: Jenae La is a 53 y.o. female with past medical history significant for type 2 diabetes, fibromyalgia, chronic opiate use, obstructive sleep apnea (on CPAP at home) who was seen by the neurology consult service in August 2018 for possible seizure-like activity. Patient was admitted to the orthopedic service after transfer from [facility] for bilateral ankle fractures. Per description of her presentation to [facility] patient possibly had seizure-like activity and was started on Keppra prior to neurology's evaluation. Patient also had EEG obtained on 09/17/2018 which did not have any epileptiform activity noted. Discussion was had with the patient about continuing Keppra and at the time of our evaluation we did not believe that she had seizure activity and recommendedagainst continuing on Keppra at that time. Patient had been on gabapentin prior and we recommended that this could be continued to help with her fibromyalgia pain. INTERVAL HISTORY: Jenae notes that things have been great since she returned home. She has however been in mobile as she continues to have callus on her bilateral feet. She did recently slightly see her orthopedist and notes that the healing of her feet have been going rather well. She is open to transition to boots inthe near future. In regards to her seizure-like activity, she notes that she has not had any further episodes such asshe did that led her to the hospital. She also notes that since she left the hospital she has been completely off of her gabapentin (was on 900 every morning and 800 every afternoon) since discharge. She still believes that that was the cause of her confusion/loss of awareness prior to her hospitalization. She notes that she continues to have migraines, however these have decreased in number since discharge. She notes that she had one yesterday but this was likely due to not eaten all day. Prior to that her last migraine was about 1 month ago. She notes that the headache was similar to the migraines that she is always suffered from. She does note that she does not remember much of the initial parts of her hospitalization. However she feels as though her mentation is back to baseline and may be at times even better. She once again attributes this to being off of the gabapentin. Past Medical History: Diagnosis Date ??? Arthritis ??? Chronic pain 09/15/2018 ??? Gastroesophageal reflux 09/15/2018 ??? Hyperlipidemia 09/15/2018 ??? Hypertension 09/15/2018 ??? LORRI on CPAP 09/15/2018 ??? Type 2 diabetes mellitus without complication, with long-term current use of insulin 09/15/2018 No family history on file. Social History Socioeconomic History ??? Marital status: Spouse name: Not on file ??? Number of children: Not on file ??? Years of education: Not on file ??? Highest education level: Not on file Occupational History ??? Not on file Social Needs ??? Financial resource strain: Not on file ??? Food insecurity: Worry: Not on file Inability: Not on file ??? Transportation needs: Medical: Not on file Non-medical: Not on file Tobacco Use ??? Smoking status: Never Smoker ??? Smokeless tobacco: Never Used Substance and Sexual Activity ??? Alcohol use: Not Currently Comment: a sip once a year ??? Drug use: Never ??? Sexual activity: Not on file Lifestyle ??? Physical activity: Days per week: Not on file Minutes per session: Not on file ??? Stress: Not on file Relationships ??? Social connections: Talks on phone: Not on file Gets together: Not on file Attends taoist service: Not on file Active member of club or organization: Not on file Attends meetings of clubs or organizations: Not on file Relationship status: Not on file ??? Intimate partner violence: Fear of current or ex partner: Not on file Emotionally abused: Not on file Physically abused: Not on file Forced sexual activity: Not on file Other Topics Concern ??? Not on file Social History Narrative ??? Not on file Smoking: Continues to smoke 1 pack per day. Trying to cut back overall and has been trying inhaled nicotine. Alcohol: Denies Illicit Drug Use: Denies Living Situation: [place], [place] - lives with , 4 dogs and cat Hobbies: 4 wheeling, snow-mobiling when able Outpatient Encounter Medications as of 11/08/2018 Medication Sig Dispense Refill ??? HYDROcodone-acetaminophen (NORCO) 5-325 mg Tablet TAKE ONE TABLET BY MOUTH THREE TIMES A DAY NEEDED FOR SEVERE BACK PAIN 0 ??? ranitidine (ZANTAC) 150 mg Tablet TAKE ONE TABLET BY MOUTH AT BEDTIME 2 ??? ibuprofen (ADVIL;MOTRIN) 600 mg Tablet TAKE ONE TABLET BY MOUTH THREE TIMES A DAY NEEDED FOR PAIN 3 ??? acetaminophen (TYLENOL) 500 mg Tablet Take 2 tablets by mouth every 8 hours as needed for Pain. 30 tablet 1 ??? JYOTI TRACY U-100 INSULIN 100 unit/mL (3 mL) pen INJECT 18 UNITS SUBCUTANEOUSLY EVERY MORNING 3 ??? metFORMIN (GLUCOPHAGE) 500 mg Tablet TAKE ONE TABLET BY MOUTH TWICE A DAY 3 ??? ondansetron (ZOFRAN) 4 mg Tablet TAKE 1 TABLET BY MOUTH EVERY 6 HOURS NEEDED FOR NAUSEA 0 ??? pantoprazole (PROTONIX) 40 mg Tablet, Delayed Release (E.C.) TAKE ONE TABLET BY MOUTH DAILY IN THE MORNING 3 ??? simvastatin (ZOCOR) 20 mg Tablet TAKE ONE TABLET BY MOUTH EVERY NIGHT AT BEDTIME 3 ??? CIS Free Text Med - Albuterol ??? FLUTICASONE/SALMETEROL (ADVAIR DISKUS INHL) No facility-administered encounter medications on file as of 11/08/2018. Allergies Allergen Reactions ??? Bee Sting [Hymenoptera Allergenic Extract] Other (See Comments) Swelling ??? Sulfa (Sulfonamide Antibiotics) ??? Tape, Occlusive Adhesive Review of systems: Review of Systems Constitutional: Negative for chills, diaphoresis, fever, malaise/fatigue and weight loss. HENT: Negative for ear pain, hearing loss and tinnitus. Eyes: Negative for blurred vision, double vision, photophobia and pain. Respiratory: Negative for cough, shortness of breath and wheezing. Cardiovascular: Negative for chest pain and palpitations. Gastrointestinal: Negative for abdominal pain, constipation, diarrhea, heartburn, nausea and vomiting. Genitourinary: Negative for dysuria, frequency and urgency. Musculoskeletal: Negative for back pain, falls, joint pain, myalgias and neck pain. Skin: Negative. Neurological: Positive for headaches. Negative for dizziness, tingling, tremors, sensory change, speech change, focal weakness, seizures, loss of consciousness and weakness. Endo/Heme/Allergies: Negative. Psychiatric/Behavioral: Negative for depression, hallucinations, memory loss, substance abuse and suicidal ideas. The patient is not nervous/anxious and does not have insomnia. Objective: Vitals: Constitutional: Patient of apparent stated age, well nourished, well developed, no acute distress HEENT: normal fundoscopic exam, no papilledema, no meningismus, no pharyngeal erythema or exudates, no conjunctival injection, oral mucosa moist, no thrush, no carotid bruits, no thyromegaly, no lymphadenopathy CV: Regular rate, no murmur, gallops, rubs; no carotid bruit appreciated Resp: CTAB, good respiratory effort Abd: Soft, nontender, nondistended, normal bowel sounds Musculoskeletal: Normal bulk and tone. 5/5 strength in bilateral upper and lower extremities, normalgait, no atrophy or fasciculations Skin: Multiple tattoos on upper and lower body Neuro: Neurologic Exam Mental Status Oriented to person, place, and time. Registration: recalls 3 of 3 objects. Recall at 5 minutes: recalls 3 of 3 objects. Follows 3 step commands. Attention: normal. Concentration: normal. Speech: speech is normal Level of consciousness: alert Knowledge: good. Able to perform simple calculations. Able to complete serial sevens Able to say months of the year forwards and backwards without much difficulty Able to spell tables forwards and backwards without difficulty Cranial Nerves Cranial nerves II through XII intact. Motor Exam Muscle bulk: normal Overall muscle tone: normal Strength Strength 5/5 throughout. Unable to test dorsi and plantar flexion of ankles due to casts Sensory Exam Light touch normal. Right arm vibration: normal Left arm vibration: normal Right leg vibration: decreased from toes Left leg vibration: decreased from toes Proprioception normal. Gait, Coordination, and Reflexes Gait Gait: (Not assessed as patient still in wheelchair with b/l ankles still in casts) Coordination Finger to nose coordination: normal Tremor Resting tremor: absent Intention tremor: absent Action tremor: absent Reflexes Reflexes 2+ except as noted. Unable to test reflexes at Achilles due to cast Labs: Diagnostic Tests and Images: Labs/Tests Ordered This Visit: No orders of the defined types were placed in this encounter. Assessment: Jenae La is a 53 y.o. female with past medical history significant for type 2 diabetes, fibromyalgia, chronic opiate use, obstructive sleep apnea (on CPAP at home) who was seen by the neurology consult service in August 2018 for possible seizure-like activity. Jenae has done well since she was discharged from the hospital. Her feet are still in casts but she was given a good report the last time she saw her orthopedist and she may be transitioning to a boot in the near future. In regards to her seizure like activity, she has not had any repeat episodes. She believes that her presentation was due to the gabapentin that she was on prior to her accident. She has remained off of this since discharge and we are on board with this as she has not had any repeat episodes. Her mentation has also been at baseline since discharge and this is reassuring as her MRI during that presentation was also normal. She does have a history of migraines but believes that theseare actually under better control at this time and did not want any adjustments in regards to the potential symptom management. She does not believe that she needs a neurologist at this time but notes that if she does have a newsymptom she will likely call us at that time. I gave her one of my cards to ensure she knows how to reach us if that were to happen. Plan: Return to clinic PRN Orders Placed this Visit: No orders of the defined types were placed in this encounter. Below, plan discussed with patient There are no Patient Instructions on file for this visit. The above patient was seen and discussed with Dr. German Gu III prior to the signing of this note. Abdirahman Enamorado MD Neurology Resident - PGY-3 Personal Pager: [phone] 11/08/2018 Neurology Attending Attestation I saw and evaluated Jenae La with Dr. Enamorado, neurology resident. I have reviewed the medical records and the patient's history during the visit and I agree with the details as written. My physical examination confirms the findings. ?? The assessment and plan were formulated in discussion with me at the time of the visit and I agree with them as documented. German Gu III, MD Pager: [phone] 3:14 PM 11/08/2018 documented in this encounter Plan of Treatment Not on filedocumented as of this encounter Visit Diagnoses Diagnosis Hospital discharge follow-up Other follow-up examination documented in this encounter Care Teams Metal Organ Pipe Maker Relationship Specialty Start Date End Date Yamile De Leon APRN PCP - General Family Medicine 10/01/18 [address] [place] [address] documented as of this encounter
--- OUTSIDE RECORDS SUMMARY | 2022-02-13 17:04 | XMS_ITS | Encounter Summary ---
:1965 Author Organization [facility] Address [address] [place] [address] Care Team Providers Name Role Phone Unavailable Primary Care Provider Unavailable Encounter Details Date Type Department Care Team Description 08/12/2002 Results Only [facility] - Hallie vasquez, Provider, conversion [address] [facility] [place] [address] Social History Tobacco Use Types Packs/Day Years Used Date Never Assessed Sex Assigned at Date Recorded Not on file documented as of this encounter Plan of Treatment Not on filedocumented as of this encounter Procedures Procedure Name Priority Date/Time Associated Diagnosis Comme nts CYTOPATHOLOGY Routine 08/12/2002 0:00 EST Results for this procedure are i n the results section . documented in this encounter Results CYTOPATHOLOGY (08/12/2002 0:00 EST) Pathology Report: CYTOPATHOLOGY REPORT [facility] Reports generated via electronic interface contain catrachita ginal data; however they are lacking the format of the original re port. Caution should be taken when reading/interpreting unfo rmatted reports. Name: ? ERICKSON LA ? Accession #: ? [id number] : ? 1965 (Age: 37) ??F ?Collect Date: ? 07/24 Location: ? [facility] ? Receive Date : ? 2002 Provider: ?DORIS TAY MD Copy to: ? Specimen/Source: ?ThinPrep Pap Test, Cervix/ Endocervix Last Menstrual Period: ? 08/01/02 ? SPECIMEN ADEQUACY ? Satisfactory for Evaluation - transformation zone component present GENERAL CATEGORIZATION ? Negative for Intraepithelial Lesion or Malignan cy ? Document reviewed and electronically signed by: ? Emma Tran, SCT(ASCP) ? Report Date: ??08/18/2002 08:32 End of Report Specimen Performing Organization Address City/State/ZIP Code Phon e Number [facility] [address] [phone] SERVICES [facility] [address] [place] [address] documented in this encounter Visit Diagnoses Not on filedocumented in this encounter
--- OUTSIDE RECORDS SUMMARY | 2022-02-13 17:04 | XMS_ITS | Encounter Summary ---
:1965 Author Organization [facility] Address [address] [place] [address] Care Team Providers Name Role Phone Unavailable Primary Care Provider Unavailable Encounter Details Date Type Department Care Team Description 10/16/2003 Results Only [facility] - Doris Zuniga MD conversion [address] [facility] [address] [place] [address] [place] [address] (Wo rk) Social History Tobacco Use Types Packs/Day Years Used Date Never Assessed Sex Assigned at Date Recorded Not on file documented as of this encounter Plan of Treatment Not on filedocumented as of this encounter Procedures Procedure Name Priority Date/Time Associated Diagnosis Comme nts CYTOPATHOLOGY Routine 10/16/2003 0:00 EDT Results for this procedure are i n the results section . documented in this encounter Results CYTOPATHOLOGY (10/16/2003 0:00 EDT) Pathology Report: CYTOPATHOLOGY REPORT [facility] Reports generated via electronic interface contain catrachita ginal data; however they are lacking the format of the original re port. Caution should be taken when reading/interpreting unfo rmatted reports. Name: ? ERICKSON LA ? Accession #: ? [id number] : ? 1965 (Age: 38) ??F ?Collect Date: ? 09/23 Location: ? [facility] ? Receive Date : ? 10/18/2003 Provider: ?DORIS TAY MD Copy to: ? Specimen/Source: ?ThinPrep Pap Test, Cervix/ Endocervix Last Menstrual Period: ? 10/03/03 Hormonal/Contraceptive Status: ? Yes: [facility] ? SPECIMEN ADEQUACY ? Satisfactory for Evaluation - transformation zone component present GENERAL CATEGORIZATION ? Negative for Intraepithelial Lesion or Malignan cy INTERPRETATION ? Shift in shala present suggestive of bacterial vaginosis. ? Document reviewed and electronically signed by: ? VALENTINA Lopez(ASCP) ? Report Date: ??10/24/2003 11:43 End of Report Specimen Performing Organization Address City/State/ZIP Code Phon e Number [facility] [address] [place] [address] [facility] [address] [place] [address] documented in this encounter Visit Diagnoses Not on filedocumented in this encounter
--- OUTSIDE RECORDS SUMMARY | 2022-02-13 17:04 | XMS_ITS | Encounter Summary ---
:1965 Author Organization [facility] [place] [address] Care Team Providers Name Role Phone Yamile De Leon APRN Primary Care Provider Reason for Visit Reason Onset Date Comments Questions 10/27/2018 Encounter Details Date Type Department Care Team Description 10/27/2018 Telephone Orthopaedics at [facility] Aparna Reed MD Questions [facility] [place] [address] ORTHOPAEDIC SURGERY [phone] [place] [id number] (Wo rk) Social History Tobacco Use Types Packs/Day Years Used Date Never Smoker Smokeless Tobacco: Never Used Alcohol Use Standard Drinks/Week Comments Not Currently 0 (1 standard drink = 0.6 oz pure alcoho l) a sip once a year Alcohol Habits Answer Date Recorded How often do you have a drink containing alcohol? Not asked How many drinks containing alcohol do you have on a Not aske d typical day when you are drinking? How often do you have six or more drinks on one Not asked occasion? Comment: a sip once a year 10/01/2018 Sex Assigned at Date Recorded Not on file documented as of this encounter Miscellaneous Notes Telephone Encounter - Yue Baker - 10/27/2018 4:04 PM EDT Who is calling: Jenae Was this a new injury? No new injury Have you had Surgery? yes If so when? 4.23.19 Who was the Surgeon?Brianna Best call back number: [phone] Best time to call back between 8:00 am & 5:00 pm: anytime Can we leave a message? yes What is the question: questions about her cast? Can she go into an air cast now? The cast she is in now are too heavy. She would like to transfer of care to [facility] sooner rather than later due to transportation issues. documented in this encounter Plan of Treatment Not on filedocumented as of this encounter Visit Diagnoses Not on filedocumented in this encounter Care Teams Dish Cloth Inspector Relationship Specialty Start Date End Date Yamile De Leon APRN PCP - General Family Medicine 10/01/18 [address] [place] [address] documented as of this encounter
--- OUTSIDE RECORDS SUMMARY | 2022-02-13 17:04 | XMS_ITS | Encounter Summary ---
:1965 Author Organization [place] [address] Care Team Providers Name Role Phone Yamile De Leon APRN Primary Care Provider Reason for Visit Reason Comments Foot Pain ORIF METATARSAL FX, EACH (WR VU 7.44) (Bilateral DOS 09/16/2018 Encounter Details Date Type Department Care Team Description 11/08/2018 Office Visit Orthopaedics at [facility] [place] [address] Social History Tobacco Use Types Packs/Day Years Used Date Current Every Day Smoker Cigarettes 1 28 Smokeless Tobacco: Never Used Comments: Currently using nicotine inhal er to help herself quit (11/08/18) Alcohol Use Standard Drinks/Week Comments Not Currently 0 (1 standard drink = 0.6 oz pure alcoho l) Sex Assigned at Date Recorded Not on file documented as of this encounter Last Filed Vital Signs Vital Sign Reading Time Taken Comments Blood Pressure 113/70 11/08/2018 3:52 PM EDT Pulse 99 11/08/2018 3:52 PM EDT Temperature - - Respiratory Rate - - Oxygen Saturation - - Inhaled Oxygen Concentration - - Weight 83 kg (183 lb) 11/08/2018 3:52 PM EDT Height 154.9 cm (5' 0.98) 11/08/2018 3:52 PM EDT Body Mass Index 34.6 11/08/2018 3:52 PM EDT documented in this encounter Progress Notes Chad Campo MD - 11/08/2018 2:30 PM EDT Orthopaedic Surgery Consult Note Attending: Dr. Reed Chief Complaint: Bilateral cast discomfort History of Present Illness: Jenae La is a 53 y.o. female who is approximately 8 weeks s/p ORIF of bilateral feet. She reports she is doing well and her pain is well controlled, but she is havingsome discomfort with her casts as her VNA is not able to access her diabetic wounds. No gross purulence noted. She denies fevers/chills, nausea/vomiting or erythema about feet/toes. She has been doing well at home, non-weight bearing. Patient denies numbness, tingling, weakness, head strike, LOC, or other injuries. No fever, chills, nausea/vomiting, chest pain, SOB. Past Medical History: Patient Active Problem List Diagnosis Code ??? 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 S/P ORIF bilateral foot fractures, 09/16/18 (Brianna) S92.209A ??? Hypertension I10 ??? Hyperlipidemia E78.5 ??? Type 2 diabetes mellitus without complication, with long-term current use of insulin E11.9, Z79.4 ??? Chronic pain G89.29 ??? LORRI on CPAP G47.33, Z99.89 ??? Gastroesophageal reflux K21.9 Past Surgical History: Past Surgical History: Procedure Laterality Date ??? KNEE ARTHROSCOPY Bilateral ??? PRO CLOSED TREAT TARSAL FX, MANIP, EACH Left 09/16/2018 CLOSED REDUCTION TARSAL BONE FX (WRVU 3.24) performed by Aparna Reed MD at [facility] MAIN OR ??? PRO OPEN TREATMENT METATARSAL FRACTURE EACH Bilateral 09/16/2018 ORIF METATARSAL FX, EACH (WRVU 7.44) performed by Aparna Reed MD at [facility] MAIN OR ??? PRO OPEN TREATMENT TARSOMETATARSAL JOINT DISLOCATION Right 09/16/2018 OPEN TREAMENT TARSOMETATARSAL JOINT DISLOCATION (WRVU 10.7) performed by Aparna Reed MD at [facility] MAIN OR ??? PRO OPEN TX FRACTURE GREAT TOE/PHALANX/PHALANGES Right 09/16/2018 ORIF GREAT TOE (WRVU 7.44) performed by Aparna Reed MD at [facility] MAIN OR ??? PRO PERCUT TREAT METATARSAL FX Left 09/16/2018 PERCUTANEOUS PINNING, METATARSAL FX, EA. (WRVU 3.6) performed by Aparna Reed MD at [facility] MAIN OR ??? PRO PERCUT TREAT TAR-METATAR FOOT DISLOC Right 09/16/2018 PERCUTANEOUS PINNING, TARSOMETATARSAL JOINT DISLOCATION (WRVU 5.09) performed by Aparna Reed MD at [facility] MAIN OR ??? SHOULDER ARTHROSCOPY Bilateral Allergies Allergen Reactions ??? Bee Sting [Hymenoptera Allergenic Extract] Other (See Comments) Swelling ??? Sulfa (Sulfonamide Antibiotics) ??? Tape, Occlusive Adhesive Current Outpatient Medications on File Prior to Visit Medication Sig Dispense Refill ??? albuterol (PROVENTIL) 2.5 mg /3 mL (0.083 %) Solution for Nebulization Take 2.5 mg by nebulization every 4 hours as needed for Wheezing. ??? albuterol 90 mcg/actuation HFA Aerosol Inhaler Inhale 2 puffs into the lungs every 4 hours as needed for Wheezing. Use with spacer ??? fluticasone propion-salmeterol (ADVAIR) 250-50 mcg/dose Disk with Device Inhale 1 puff into the lungs every 12 hours. ??? pantoprazole (PROTONIX) 20 mg Tablet, Delayed Release (E.C.) Take 10 mg by mouth daily. ??? Magnesium Oxide 250 mg magnesium Tablet Take 250 mg by mouth daily. Indications: Take with protonix ??? HYDROcodone-acetaminophen (NORCO) 5-325 mg Tablet TAKE [...] needed for Pain. 30 tablet 1 ??? BASAGLAR KWIKPEN U-100 INSULIN 100 unit/mL (3 mL) pen INJECT 18 UNITS SUBCUTANEOUSLY EVERY MORNING 3 ??? metFORMIN (GLUCOPHAGE) 500 mg Tablet TAKE ONE TABLET BY MOUTH TWICE A DAY 3 ??? ondansetron (ZOFRAN) 4 mg Tablet TAKE 1 TABLET BY MOUTH EVERY 6 HOURS NEEDED FOR NAUSEA 0 ??? [DISCONTINUED] pantoprazole (PROTONIX) 40 mg Tablet, Delayed Release (E.C.) TAKE ONE TABLET BY MOUTH DAILY IN THE MORNING 3 ??? [DISCONTINUED] simvastatin (ZOCOR) 20 mg Tablet TAKE ONE TABLET BY MOUTH EVERY NIGHT AT BEDTIME 3 ??? [DISCONTINUED] CIS Free Text Med - Albuterol ??? [DISCONTINUED] FLUTICASONE/SALMETEROL (ADVAIR DISKUS INHL) No current facility-administered medications on file prior to visit. Social History: Social History Socioeconomic History ??? Marital status: [...] on file Tobacco Use ??? Smoking status: Current Every Day Smoker Packs/day: 1.00 Years: 28.00 Pack years: 28.00 Types: Cigarettes ??? Smokeless tobacco: Never Used ??? Tobacco comment: Currently using nicotine inhaler to help herself quit (11/08/18) Substance and Sexual Activity ??? Alcohol use: Not Currently ??? Drug use: Never ??? Sexual activity: Not on file Lifestyle ??? Physical activity: Days per week: Not on file Minutes per session: Not on file ??? Stress: Not on file Relationships ??? Social connections: Talks on phone: Not on file Gets together: Not on file Attends lutheran service: Not on file Active member of [...] Social History Narrative ??? Not on file Review of Systems: As per HPI, otherwise negative Objective: Temp: -- Heart Rate: [99] Resp: -- BP: (113)/(70) SpO2: -- Heart Rate from SpO2: -- Physical Exam General: awake/alert, responds to questions Bilateral Feet: Short leg casts c/d/i w/some minor wound EHL/FHL are intact. Sensation exposed toes/feet intact Capillary refill is < 3 seconds. Labs: Last 3 wbc, hgb, hct plt Recent Labs 09/15/18 0344 WBC 11.2* HGB 9.6* HCT 29.5* PLATELET 244 Imaging: Most recent XRay series shows the hardware is intact. Alignment is maintained. Assessment/Plan: 53 y.o. female who returns in follow-up 6 weeks s/p surgery. She did report to casttech room today as she is having some discomfort with her casts and would like better access to her feet to ensure she is not getting infected wounds due to her diabetes (no signs of infection on this visit). Adjusted b/l short leg casts to allow for brief removal of dorsal shell for wound inspection.Otherwise, she will remain in b/l short leg casts until f/u and is NWB b/l LE. - f/u w/Dr. Peña, closer to home, in ~2 weeks - short leg casts for another 4-6 weeks, then transition to aicast boots and weight bear as tolerated starting in 6 weeks - f/u w/Dr. Reed in 5 months to discuss hardware removal ?? Chad Campo MD Orthopaedic Surgery Pager: [phone] ? Leta Mitchell - 11/08/2018 2:30 PM EDT Jenae La presents to the clinic today for removal of bilateral leg casts, lining and reapplication . The patient's casts were removed. The patient had a deep scab on the dorsum of her right foot. There is no redness, swelling or erythema, no indications for infection. The casts were re-lined and reapplied. The patient tolerated the procedure well. The patient was given instruction for cast care and was given instruction to call the clinic with any questions or concerns. documented in this encounter Plan of Treatment Not on filedocumented as of this encounter Visit Diagnoses Diagnosis Cast discomfort Other orthopedic aftercare documented in this encounter Care Teams Other Sports Official Relationship Specialty Start Date End Date Yamile De Leon APRN PCP - General Family Medicine 10/01/18 [address] [place] [address] documented as of this encounter
--- OUTSIDE RECORDS SUMMARY | 2022-02-13 17:04 | XMS_ITS | Encounter Summary ---
:1965 Author Organization [facility] Address [address] [place] [address] Care Team Providers Name Role Phone Unavailable Primary Care Provider Unavailable Encounter Details Date Type Department Care Team Description 05/02/2008 Before PRISM Converted [facility] - Rosa Miramontes, Visit (Maple) Maple conversion RN PEDIATRIC ICU [address] [facility] [address] [place] [address] [place], [place] [phone] Social History Tobacco Use Types Packs/Day Years Used Date Never Assessed Sex Assigned at Date Recorded Not on file documented as of this encounter Plan of Treatment Not on filedocumented as of this encounter Procedures Procedure Name Priority Date/Time Associated Diagnosis Comme nts CYTOPATHOLOGY Routine 05/02/2008 0:00 EST Results for this procedure are i n the results section . documented in this encounter Results CYTOPATHOLOGY (05/02/2008 0:00 EST) Pathology Report: CYTOPATHOLOGY REPORT ? [facility] ALL EN ? LAB Reports generated via [employer] interface contain original data; ? however they are lacking the format of the original report. ? Caution should be taken when reading/interpreting unformatted reports. ? Name: ? ISAÍAS ERICKSON ? Accession #: ? [id number] ? : ? 1965 (Age: 42) ??F ?Collect Date: ? 05/02/2008 ? Location: ? [facility] ? Receive Date: ? 05/03/2008 ? Provider: ?LORENZA G TA MERARI RN PEDIATRIC ICU ? Copy to: ? Specimen/Source: ? Pap Test, Vagina/Cervix Cuff, ThinPrep Imaging System ?? with manual evaluation ? Last Menstrual Period: ? 4 years ? Treatment History: ? Hysterectomy ? SPECIMEN ADEQUACY ? Satisfactory for Eval uation ? - transformation zone compon ent absent ? GENERAL CATEGORIZATION ? Negative for Intraepi thelial Lesion or Malignancy ? Document reviewed and electr onically signed by: ? Lynan Atul, CT(ASCP) ? Report Date: ??12/11/ 2008 13:52 ? End of Report ? Specimen Performing Organization Address City/State/ZIP Code Phon e Number [facility] [address] [place] [address] SERVICES [facility] [address] [place] [address] documented in this encounter Visit Diagnoses Not on filedocumented in this encounter
--- OUTSIDE RECORDS SUMMARY | 2022-02-13 17:04 | XMS_ITS | Encounter Summary ---
:1965 Author Organization [facility] Address [address] [place] [address] Care Team Providers Name Role Phone Una Dickinson Primary Care Provider [phone] Encounter Details Date Type Department Care Team Description 10/12/2019 Lab Requisition [facility] Outr Resulting Lab, Pathology & Laboratory Provider [facility] [address] [place], [place] [address] Social History Tobacco Use Types Packs/Day Years Used Date Never Assessed Sex Assigned at Date Recorded Not on file documented as of this encounter Plan of Treatment Not on filedocumented as of this encounter Procedures Procedure Name Priority Date/Time Associated Diagnosis Comme nts IGA Routine 10/11/2019 11:50 EDT Results for this procedure are i n the results section . documented in this encounter Results (ABNORMAL) IGA (10/11/2019 11:50 EDT) Pathologist Sig nature IgA 71 (L) 85 - 499 mg/dL [facility] Specimen Blood - Venous blood (substance) Performing Organization Address City/State/ZIP Code Phon e Number [facility] [address] [place] [address] SERVICES documented in this encounter Visit Diagnoses Not on filedocumented in this encounter Care Teams Debubblizer Relationship Specialty Start Date End Date Una Dickinson PA PCP - General 11/10/17 documented as of this encounter
--- OUTSIDE RECORDS SUMMARY | 2022-02-13 17:04 | XMS_ITS | Clinical Summary ---
:1965 Author Organization [facility] Address [address] [place] [address] Care Team Providers Name Role Phone Una Dickinson Primary Care Provider [phone] Social History Tobacco Use Types Packs/Day Years Used Date Never Assessed Sex Assigned at Date Recorded Not on file Plan of Treatment Health Maintenance Due Date Last Done Comments Hepatitis C Screen 1965 COVID-19 Vaccine (1) 08/15/1972 Insurance Payer Benefit Plan / Subscriber ID Effective Phone Address T ype Group Dates MEDICARE MEDICARE A/B [id number] 2007-Prese [address] [place] [id number] [place]ID [place] [id number] 2021-Prese [address] Medicaid [place] [facility] [id number] Care Teams Checker And Packer Relationship Specialty Start Date End Date Una Dickinson PA PCP - General 11/10/17
--- OUTSIDE RECORDS SUMMARY | 2022-02-13 17:04 | XMS_ITS | Encounter Summary ---
:1965 Author Organization [facility] [place] [address] Care Team Providers Name Role Phone Raymondmanuel Yamile Manuel GONZALEZ Primary Care Provider Encounter Details Date Type Department Care Team Description 11/22/2018 Ancillary Procedure Radiology Library at Aparna Reed, [facility] [place] [address] ORTHOPAEDIC SURGERY [phone] [place] [address] (Wo rk) Social History Tobacco Use Types [...] Name Priority Date/Time Associated Diagnosis Comme nts FILM LIBRARY Routine 11/22/2018 12:00 AM Results for this STORAGE ONLY DX EDT procedure ar e in FOOT the results section. documented in this encounter Results Film Library- Storage Only DX Foot (11/22/2018 12:00 AM EDT) Specimen (Source) Anatomical Location Collection Method / Collectio n Time Received Time / Laterality Volume Narrative [facility] - 01/27/2019 6:09 PM EDT This exam is auto-finalizing. It's purpo se is for storage only. Aparna Reed MD G FILM LIBRARY ORDERABLES Performing Organization Address City/State/ZIP Code Phon e Number [facility] [place], [place] documented in this encounter Visit Diagnoses Not on filedocumented in this encounter Care Teams Email Production Specialist Relationship Specialty Start Date End Date Yamile De Leon APRN PCP - General Family Medicine 10/01/18 [address] [place] [address] documented as of this encounter
--- OUTSIDE RECORDS SUMMARY | 2022-02-13 17:04 | XMS_ITS | Encounter Summary ---
:1965 Author Organization [facility] Address [address] [place] [address] Care Team Providers Name Role Phone Unavailable Primary Care Provider Unavailable Encounter Details Date Type Department Care Team Description 11/16/2000 Hospital Encounter [facility] Emergency, Emergency Department - MD [address] [place] [address] Social History Tobacco Use Types Packs/Day Years Used Date Never Assessed Sex Assigned at Date Recorded Not on file documented as of this encounter Discharge Disposition Disposition Code Departure Means Destination Home or Self Care documented in this encounter Plan of Treatment Not on filedocumented as of this encounter Procedures Procedure Name Priority Date/Time Associated Diagnosis Comme nts FINGER 2 OR MORE Routine 11/16/2000 16:26 Results for this VIEWS EDT procedure are i n the results section. WRIST 3 OR MORE Routine 11/16/2000 16:26 Results for this VIEWS EDT procedure are i n the results section. documented in this encounter Results FINGER 2 OR MORE VIEWS (11/16/2000 16:26 EDT) Anatomical Region Laterality Modality Other Specimen Narrative [facility] - 04/13/2009 0: 12 EST fell on rt. hand ,pain in wrist ,snuff box area - rt, thumb r/o fx + RIGHT THUMB AND RIGHT WRIST: 11/16/00. HISTORY: Fell. Pain in wrist. Rule out fracture. FINDINGS: Four views of the right wrist including a scaphoid view, and three views of the right thumb were obtained. There is soft tissue swelling at the bas e of the palm. There is no evidence of fracture or dislocation. /tns Procedure Note [facility] MD - 04/13/2009 [address] on [address]. hand ,pain in wrist ,snuff b ox area - rt, thumb r/o fx + RIGHT THUMB AND RIGHT WRIST: 11/16/00. HISTORY: Fell. Pain in wrist. Rule out fracture. FINDINGS: Four views of the right wrist including a scaphoid view, and three views of the right thumb were obtained. There is soft tissue swelling at the bas e of the palm. There is no evidence of fracture or dislocation. /tns Performing Organization Address [facility]/ZIP Code Phon e Number [facility] RADIOLOG[facility] [address] [facility] [address] [address] WRIST 3 OR MORE VIEWS (11/16/2000 16:26 EDT) Anatomical Region Laterality Modality Other Specimen Narrative [facility] RAD[facility] - 04/13/2009 0: 12 EST fell on rt. hand ,pain in wrist ,snuff box area - rt, thumb r/o fx + Procedure Note [facility] MD - 04/13/2009 fell on rt. hand ,pain in wrist ,snuff b ox area - rt, thumb r/o fx + Performing Organization Address City/[facility]/ZIP Code Phon e Number [facility] [address] [facility] [address] [address] documented in this encounter Visit Diagnoses Not on filedocumented in this encounter
--- OUTSIDE RECORDS SUMMARY | 2022-02-13 17:04 | XMS_ITS | Encounter Summary ---
:1965 Author Organization [facility] [place] [address] Care Team Providers Name Role Phone Haley Yamile Lexi GONZALEZ Primary Care Provider Encounter Details Date Type Department Care Team Description 12/20/2018 Ancillary Procedure Radiology Library at Aparna Reed, [facility] [place] [address] ORTHOPAEDIC SURGERY [phone] [place] [address] (Wo rk) Social History Tobacco Use Types [...] Associated Diagnosis Comme nts FILM LIBRARY Routine 12/20/2018 12:00 AM Results for this STORAGE ONLY DX EDT procedure ar e in FOOT the results section. documented in this encounter Results Film Library- Storage Only DX Foot (12/20/2018 12:00 AM EDT) Specimen (Source) Anatomical Location Collection Method / Collectio n Time Received Time / Laterality Volume Narrative [facility] - 01/27/2019 6:11 PM EDT This exam is auto-finalizing. It's purpo se is for storage only. Aparna Reed MD G FILM LIBRARY ORDERABLES Performing Organization Address City/State/ZIP Code Phon e Number [facility] [place], [place] documented in this encounter Visit Diagnoses Not on filedocumented in this encounter Care Teams Natural Resources Instructor Relationship Specialty Start Date End Date Yamile De Leon APRN PCP - General Family Medicine 10/01/18 [address] [place] [address] documented as of this encounter
--- OUTSIDE RECORDS SUMMARY | 2022-02-13 17:04 | XMS_ITS | Encounter Summary ---
:1965 Author Organization [facility] Address [address] [place] [address] Care Team Providers Name Role Phone Una Dickinson Primary Care Provider [phone] Encounter Details Date Type Department Care Team Description 01/03/2021 Lab Requisition [facility] Outr Resulting Lab, Pathology & Laboratory Provider [facility] [address] [place], [place] [id number] Social History Tobacco Use Types Packs/Day Years Used Date Never Assessed Sex Assigned at Date Recorded Not on file documented as of this encounter Plan of Treatment Not on filedocumented as of this encounter Procedures Procedure Name Priority Date/Time Associated Diagnosis Comme nts VARICELLA ZOSTER Routine 01/02/2021 11:15 Results for this VIRUS MOLECULAR EDT procedure ar e in DETECTION, PCR the results section. HSV (HERPES SIMPLEX Routine 01/02/2021 11:15 Resu lts for this VIRUS) MOLECULAR EDT procedure a re in DETECTION, PCR the results section. documented in this encounter Results VARICELLA ZOSTER VIRUS MOLECULAR DETECTION, PCR (01/02/2021 11:15 EDT) VARICELLA ZOSTER NegativeComment: This Negative [facility] VIRUS MOLECULAR test was developed and [facility] DETECTION, PCR its performance SERVICES characteristics determined by [facility]. It has not been cleared or approved by the US Food and Drug Administration. FDA does not require this test to go through premarket FDA review. This test is used for clinical purposes. It should not be regarded as investigational or research. This laboratory is certified under the Clinical Laboratory Improvement Amendments (CLIA) as qualified to perform high complexity clinical laboratory testing. Specimen Swab - Entire buttock (body structure) Performing Organization Address City/State/ZIP Code Phon e Number [facility] [address] [place] [address] SERVICES HERPES SIMPLEX VIRUS MOLECULAR DETECTION, PCR (01/02/2021 11:15 EDT) Pathologist Sig nature Herpes Simplex Virus Negative Negative [facility] Molecular Detection 1, LABORATORY SERVICE S PCR Herpes Simplex Virus Negative Negative [facility] Molecular Detection 2, LABORATORY SERVICE S PCR Specimen Swab - Entire buttock (body structure) Performing Organization Address City/State/ZIP Code Phon e Number [facility] [address] [place] [address] SERVICES documented in this encounter Visit Diagnoses Not on filedocumented in this encounter Care Teams Washing Machine Installer Relationship Specialty Start Date End Date Una Dickinson PA PCP - General 11/10/17 documented as of this encounter
--- OUTSIDE RECORDS SUMMARY | 2022-02-13 17:04 | XMS_ITS | Encounter Summary ---
:1965 Author Organization [facility] Address [address] [place] [address] Care Team Providers Name Role Phone Una Dickinson Primary Care Provider [phone] Encounter Details Date Type Department Care Team Description 09/28/2019 Lab Requisition [facility] Outr Resulting Lab, Pathology & Laboratory Provider [facility] [address] [place], [place] [id number] Social History Tobacco Use Types Packs/Day Years Used Date Never Assessed Sex Assigned at Date Recorded Not on file documented as of this encounter Plan of Treatment Not on filedocumented as of this encounter Procedures Procedure Name Priority Date/Time Associated Comments Diagnosis DO NOT ORDER Today 09/28/2019 14:15 Results for this STANDALONE - SANDRA EDT procedure a re in COVID TESTING the results section. COVID-19 TESTING Routine 09/28/2019 14:15 Results for this EDT procedure are i n the results section. documented in this encounter Results DO NOT ORDER STANDALONE - SANDRA COVID TESTING (09/28/2019 14:15 EDT) COVID-19 rt-PCR Not Detected Not Detected [place] Result Comment: DEPARTMENT OF This test has not been FDA c leared or approved. This test has been authorized by FDA under an EUA for use by authorized laboratories. ??This test has been authorized only for the detection of nucleic ac [facility] id from SARS-CoV-2, not for any other viruses or pathogens. ??This test is only authorized for the duration of the declaration that circumstances exist justifying the authorization of emergency use of i n vitro diagnostic tests for detection and/or diagnosis of COVID-19 under Section 564(b)(1) of the Act, 21 U.S.C. ?? 360bbb-3(b)(1), unless the authorization is terminated or revoked sooner. ??Factsheet s for healthcare providers: ??https://www.fda.gov/media/675768/download Factsheets for patients: https://www.fda.gov/media/069078/download Negative results do not prec lude infection with SARS-CoV-2 virus, and should not be the sole basis of a patient management decision. Specimen Swab - Entire nasopharynx (body structur e) Performing Organization Address [facility] Phon e Number [facility] [address] [place], [place] [address] LABORATORY COVID-19 TESTING (09/28/2019 14:15 EDT) [facility] COVID-19 rt-PCR Not Detected Not Detected [place] Result Comment: DEPARTMENT OF This test has not been FDA c leared or approved. This test has been authorized by FDA under an EUA for use by authorized laboratories. ??This test has been authorized only for the detection of nucleic ac [facility] id from SARS-CoV-2, not for any other viruses or pathogens. ??This test is only authorized for the duration of the declaration that circumstances exist justifying the authorization of emergency use of i n vitro diagnostic tests for detection and/or diagnosis of COVID-19 under Section 564(b)(1) of the Act, 21 U.S.C. ?? 360bbb-3(b)(1), unless the authorization is terminated or revoked sooner. ??Factsheet s for healthcare providers: ??https://www.fda.gov/media/924328/download Factsheets for patients: https://www.fda.gov/media/954657/download Negative results do not prec lude infection with SARS-CoV-2 virus, and should not be the sole basis of a patient management decision. Performing Lab [facility] LABORATORY SERVICES Specimen Swab - Entire nasopharynx (body structur e) Performing Organization Address [facility] Code Phon e Number [facility] [address] [place] [address] [facility] [address] [place], [place] [address] LABORATORY documented in this encounter Visit Diagnoses Not on filedocumented in this encounter Care Teams Senior It Project Manager Relationship Specialty Start Date End Date Una Dickinson PA PCP - General 11/10/17 documented as of this encounter
--- OUTSIDE RECORDS SUMMARY | 2022-02-13 17:04 | XMS_ITS | Encounter Summary ---
:1965 Author Organization [facility] Address [address] [place] [address] Care Team Providers Name Role Phone Carlos Hyde MD Primary Care Provider Encounter Details Date Type Department Care Team Description 11/06/2017 Results Only [facility] Carolyn Berrios, DO [phone] [facility] [place] [address] (Wo rk) Social History Tobacco Use Types Packs/Day Years Used Date Never Assessed Sex Assigned at Date Recorded Not on file documented as of this encounter Plan of Treatment Not on filedocumented as of this encounter Procedures Procedure Name Priority Date/Time Associated Diagnosis Comme [facility] SURGICAL PATHOLOGY Routine 11/06/2017 23:44 Resul ts for this EDT procedure are i n the results section. documented in this encounter Results SURGICAL PATHOLOGY (11/06/2017 23:44 EDT) Pathology Report: SURGICAL PATHOLOGY REPORT [facility] Reports generated via electronic interface conta in original data; CENTER LABORATORY however they are lacking the format of the original re port. SERVICES Caution should be taken when reading/interpreting unfo rmatted reports. Name: ? ERICKSON LA ? Accession #: ? [id number] ? : ? 1965 (Age: 7 0) ??F ? Collect Date: ? 11/06/2017 ? Location: ? [facility] ? Receive Date: ? 11/07/19 18 ? Provider: CAROLYN BERRIOS DO Copy to: CHAPO CARR ? Final Pathologic Diagnosis: A. TERMINAL ILEUM, BIOPSY: - Small bowel mucosa with intraepithelial lymphocytosi s. - See comment. B. COLON, RANDOM, BIOPSY: - Lymphocytic colitis. - See comment. C. RECTUM, RANDOM, BIOPSY: - Lymphocytic colitis. Comment: Given the presence of microscopic colitis in the colon and the histologic features of the terminal ileum biopsy (A ) serologic testing to rule out celiac disease may be warranted in the correct clinical setti ng. Document reviewed and electronically signed by: WESLEY RONDON MD Report ??Date: 11/11/2017 10:04 By the signature above, the attending physician certif ies that he/she has personally conducted a gross and/or microscopic examin ation of the described specimens and rendered or confirmed the above diagnosi s. Specimen(s) Received: A. ??Terminal ileum biopsy B. ??Random colon biopsies C. ??Random rectum bxs Clinical History: Normal appearing colon; clinical diagnosis code: ??Z12 .11 Gross Description: A. ?Received in formalin labelled with proper p atient identification (initials J, W) and termina l ileum are four light angel tissues ranging in size from 0.2 x 0.2 x 0.1 cm to 0 .4 x 0.2 x 0.1 cm. Submitted intact in blocks A1 and A2 B. ?Received in formalin labelled with proper p atient identification (initials J, W) and random colon biopsies are 12 light angel biopsies ranging in size from 0.2 x 0.2 x 0.1 cm to 0.7 x 0. 2 x 0.1 cm. Submitted intact in blocks B1-B4. C. ?Received in formalin labelled with proper p atient identification (initials J, W) and rectum random biopsies are eight light angel biopsies ranging in size from 0.2 x 0 .2 x 0.1 cm to 0.7 x 0.2 x 0.1 cm. Submitted intact in blocks C1-C3. LILLY Child (ASCP) 11/09/2017 7:44 AM End of Report Specimen Performing Organization Address City/State/ZIP Code Phon e Number [facility] LABORATORY [address] [place] [id number] SERVICES documented in this encounter Visit Diagnoses Not on filedocumented in this encounter Care Teams Production Laborer Relationship Specialty Start Date End Date Carlos Hyde MD PCP - General 03/31/15 11/09/17 documented as of this encounter
--- OUTSIDE RECORDS SUMMARY | 2022-02-13 17:04 | XMS_ITS | Encounter Summary ---
:1965 Author Organization [facility] [place] [address] Care Team Providers Name Role Phone Yamile De Leon APRN Primary Care Provider Encounter Details Date Type Department Care Team Description 03/30/2019 Telephone [facility] [place] [facility] [place]avad Urban MD [facility] [place] [phone] ORTHOPAEDIC SURGERY [phone] [place] [id number] (Wo rk) Social History Tobacco Use Types [...] this encounter Miscellaneous Notes Telephone Encounter - Kinga Palacios - 03/30/2019 8:25 AM EST Received a call from Stacey requesting a signed order from Dr. Urban for Jenae, as it is for their billing. She has faxed over the paperwork multiple times and on multiple dates. The patient is also a patient of Dr. Reed's. I will review this with Dr. Urban and Dr. Reed to see who is still continuing care. Will fax signed paperwork back to [phone]. documented in this encounter Plan of Treatment Not on filedocumented as of this encounter Visit Diagnoses Not on filedocumented in this encounter Care Teams Blood Bank Laboratory Professional Relationship Specialty Start Date End Date Yamile De Leon APRN PCP - General Family Medicine 10/01/18 [address] [place] [address] documented as of this encounter
--- OUTSIDE RECORDS SUMMARY | 2022-02-13 17:04 | XMS_ITS | Encounter Summary ---
:1965 Author Organization [facility] [place] [address] Care Team Providers Name Role Phone Yamile De Leon APRN Primary Care Provider Encounter Details Date Type Department Care Team Description 10/25/2018 Hospital En[place] [facility] Aparna Reed S/P ORIF bilateral [address] [place] [address] Michelle MD foot fractures, [facility] 09/16/18 (Brianna ) [id number] CENTER [phone] [place] [address] Social History Tobacco Use Types Packs/Day Years [...] on file documented as of this encounter Medications at Time of Discharge Medication Sig Dispensed Refills Start Date End Date HYDROcodone-acetaminop TAKE ONE TABLET BY 0 09/29 hen (NORCO) 5-325 mg MOUTH THREE TIMES A DAY Tablet NEEDED FOR SEVERE BACK PAIN ranitidine (ZANTAC) TAKE ONE TABLET BY 2 09/29/19 19 150 mg Tablet MOUTH AT BEDTIME ibuprofen TAKE ONE TABLET BY 3 09/22/2018 (ADVIL;MOTRIN) 600 mg MOUTH THREE TIMES A DAY Tablet NEEDED FOR PAIN acetaminophen Take 2 tablets by mouth 30 tablet 1 9 (TYLENOL) 500 mg every 8 hours as needed Tablet for Pain. BASAGLAR KWIKPEN U-100 INJECT 18 UNITS 3 08/30/19 19 INSULIN 100 unit/mL (3 SUBCUTANEOUSLY EVERY mL) pen MORNING metFORMIN (GLUCOPHAGE) TAKE ONE TABLET BY 3 06/05 500 mg Tablet MOUTH TWICE A DAY ondansetron (ZOFRAN) 4 TAKE 1 TABLET BY MOUTH 0 0 08/30/2018 mg Tablet EVERY 6 HOURS NEEDED FOR NAUSEA pantoprazole TAKE ONE TABLET BY 3 07/13/201810/23 (PROTONIX) 40 mg MOUTH DAILY IN THE Tablet, Delayed MORNING Release (E.C.) simvastatin (ZOCOR) 20 TAKE ONE TABLET BY 3 03/2511/08/2018 mg Tablet MOUTH EVERY NIGHT AT BEDTIME CIS Free Text Med - 0 04/12/200911/08 Albuterol FLUTICASONE/SALMETEROL 0 04/12/2009 (ADVAIR DISKUS INHL) documented as of this encounter Plan of Treatment Not on filedocumented as of this encounter Procedures Procedure Name Priority Date/Time Associated Diagnosis Comme nts XR FOOT MIN 3 VIEWS Routine 10/25/2018 10:26 AM S/P ORIF bilat eral Results for this BILAT EDT foot fractures, procedure ar e in 09/16/18 (Gitajn) the results section. documented in this encounter Results XR Foot Min 3 views Bilat (Generic) (10/25/2018 10:26 AM EDT) Anatomical Region Laterality Modality Foot Bilateral Digital Radiography Specimen (Source) Anatomical Location Collection Method / Collectio n Time Received Time / Laterality Volume Impressions 10/25/2018 3:36 PM EDT Progressive interval healing of multiple bilateral foot fractures, status post ORIF of bilateral Lisfranc fracture-disl ocations as well as ORIF of a right first proximal phalangeal base fracture and left second and third metatarsal neck fractures, in unchanged alignment, without evidence of complication. I have personally reviewed the image(s) and the residents interpretation and agree with the findings, Gretchen Odell at 10/25 3:36 PM Thank you for letting us participate in the care of this patient. For questions regarding this report, please contact th e number below. ? Electronically signed by: TAMMIE Dailey [facility] ([phone]), at 10/25/2018 3:36 PM Narrative 10/25/2018 3:36 PM EDT EXAMINATION: XR FOOT MIN 3 VIEWS BILAT (GENERIC) CLINICAL HISTORY: Bilateral foot fractur es. TECHNIQUE: 3 views BILATERAL feet Lateral, oblique, and AP views of the bi lateral feet were obtained with the patient nonweightbearing COMPARISON: Fluoroscopic images dated 09/16/2018 Foot radiographs dated 09/16/2018 and 09/22 CT images of the bilateral feet dated . FINDINGS: Right foot: Status post open reduction and internal fixation of a Lisfranc fracture-dislocation with vkvws-ytw-abax w constructs traversing the first and second tarsometatarsal joints and 3 Kirs chner wires traversing the third through fifth tarsometatarsal joints. Also statu s post uzrdgjlgn-qhr-zvlsn fixation of an intra-articular first proximal phalan geal base fracture. No significant change in the appearance of the hardware . Fracture alignment appears intact and unchanged. There is slight interval incr ease in callus and bony bridging at the fracture sites compatible with progressi ve interval healing. There also appears to be progressive interval healing of th e previously described intra-articular second proximal phalangeal base fracture , which is also in unchanged anatomic alignment. Left foot: Status post open reduction and internal fixation of second and third metatarsal neck fractures and a Lisfranc fracture-d islocation with a dcila-pxf-hteoe construct traversing the fourth metatars al base fracture and Yaw wires traversing the second and third metatars al necks and the fourth tarsometatarsal joint. No significant change in the appe arance of the hardware. Fracture alignment appears intact and unchanged. There is slight interval increase in callus and bony bridging at the fracture sites compatible with progressive interval healing. Procedure Note Gretchen Odell MD - 10/25/2018Formatting o f this note might be different from the original. EXAMINATION: XR FOOT MIN 3 VIEWS BILAT ( GENERIC) CLINICAL HISTORY: Bilateral foot fractur es. TECHNIQUE: 3 views BILATERAL feet Lateral, oblique, and AP views of the bi lateral feet were obtained with the patient nonweightbearing COMPARISON: Fluoroscopic images dated 09/16/2018 Foot radiographs dated 09/16/2018 and 09/22 CT images of the bilateral feet dated . FINDINGS: Right foot: Status post open reduction and internal fixation of a Lisfranc fracture-dislocation with ofbtx-qej-zlgm w constructs traversing the first and second tarsometatarsal joints and 3 Kirs chner wires traversing the third through fifth tarsometatarsal joints. Also statu s post xvehzdmhu-uqd-ixpbs fixation of an intra-articular first proximal phalan geal base fracture. No significant change in the appearance of the hardware . Fracture alignment appears intact and unchanged. There is slight interval incr ease in callus and bony bridging at the fracture sites compatible with progressi ve interval healing. There also appears to be progressive interval healing of th e previously described intra-articular second proximal phalangeal base fracture , which is also in unchanged anatomic alignment. Left foot: Status post open reduction and internal fixation of second and third metatarsal neck fractures and a Lisfranc fracture-d islocation with a hjegk-pky-yjqrl construct traversing the fourth metatars al base fracture and Yaw wires traversing the second and third metatars al necks and the fourth tarsometatarsal joint. No significant change in the appe arance of the hardware. Fracture alignment appears intact and unchanged. There is slight interval increase in callus and bony bridging at the fracture sites compatible with progressive interval healing. IMPRESSION Progressive interval healing of multiple bilateral foot fractures, status post ORIF of bilateral Lisfranc fracture-disl ocations as well as ORIF of a right first proximal phalangeal base fracture and left second and third metatarsal neck fractures, in unchanged alignment, without evidence of complication. I have personally reviewed the image(s) and the residents interpretation and agree with the findings, Gretchen Odell at 10/25 3:36 PM Thank you for letting us participate in the care of this patient. For questions regarding this report, please contact e number below. Electronically signed by: TAMMIE Dailey [facility] ([phone]), at 10/25/2018 3:36 PM Aparna Reed MD IMG DX ORDERABLES documented in this encounter Visit Diagnoses Diagnosis S/P ORIF bilateral foot fractures, (Brianna) documented in this encounter Care Teams Rag Collector Relationship Specialty Start Date End Date Yamile De Leon APRN PCP - General Family Medicine 10/01/18 [address] [place] [address] documented as of this encounter
--- OUTSIDE RECORDS SUMMARY | 2022-02-13 17:04 | XMS_ITS | Encounter Summary ---
:1965 Author Organization [facility] Address [address] [place] [address] Care Team Providers Name Role Phone Unavailable Primary Care Provider Unavailable Encounter Details Date Type Department Care Team Description 05/15/2004 Results Only [facility] Ni[facility] MD conversion [address] [place] [address] Social History Tobacco Use Types Packs/Day Years Used Date Never Assessed Sex Assigned at Date Recorded Not on file documented as of this encounter Plan of Treatment Not on filedocumented as of this encounter Procedures Procedure Name Priority Date/Time Associated Diagnosis Comme nts SURGICAL PATHOLOGY Routine 05/15/2004 0:00 EST Re sults for this procedure are i n the results section. documented in this encounter Results SURGICAL PATHOLOGY (05/15/2004 0:00 EST) Pathology Report: SURGICAL PATHOLOGY REPORT [facility] Reports generated via electronic interface contain catrachita ginal data; LAB however they are lacking the format of the original re port. Caution should be taken when reading/interpreting unfo rmatted reports. Name: ? ERICKSON LA ? Accession #: ? [id number] ? : ? 1965 (Age: 38) ??F ? Collect Date: ? 05/15/2004 ? Location: ? [facility] ? Receive Date: ? 004 ? Provider: LD YANEZ MD Copy to: ? Final Pathologic Diagnosis: A. ?Uterosacral ligament, left, excision: 1. ?Fibroconnective tissue with no specific pathologic features. B. ?Uterus, cer vix, bilateral ovaries, and right tube, hysterectomy, and bilateral oophorectomy and right salpingectomy: 1. ?Cervix: ? - ??Squamous metaplasia. - ??Atypia of endocervical glands. 2. ?Endomyometrium: ? - ??Proliferative endometrium. - ??Multiple leiomyomas, subserosal and intramural (la rgest is 1.0 cm). 3. ?Ovaries: ? - Surface adenofibroma, right. - ??Multiple follicular cysts, bilateral. 4. ?Fallopian tube, right: ? - ??No specific pathologic features. Document reviewed and electronically signed by: JAVIER LENNON MD Report ??Date: 05/21/2004 20:02 By the signature above, the attending physician certif ies that he/she has personally conducted a gross and/or microscopic examin ation of the described specimens and rendered or confirmed the above diagnosi s. Specimen(s) Received: A. ?Left uterosacral B. ?Uterus, cervix, colleen ovaries, R tube Clinical History: ? Chronic PID, recurrent progressive pelvic pain, dyspareunia, abnormal bleeding; LMP: 05/03/04 Gross Description: ? Received in formalin labelled Abhinav and #1 left uterosacral is a 0.3 x 0.4 x 0.2 cm fragment of angel-brown soft tissue. ??Th e specimen is entirely submitted as (A). ?? Received in formalin angella batsheva La and uterus, cervix, colleen ovaries, right tube is the product of a hy sterectomy and bilateral oophorectomy and unilateral salpingectomy. ??The uterus and cervix weighs 50 grams post-fixation and measures corpus to fundus 7.0 cm, cor nu to cornu 4.0 cm and anterior to posterior 3.0 cm. There is an attached right ovary and right fallopian tube and an attached left ovary. ??On the serosa of th e anterior uterus is a 1.0 x 0.7 x 0.7 cm angel whorled nodule. ??The endometrium me asures 0.2 cm in thickness and the myometrium is 1.2 cm in thickness. ??On cut se ction, there are multiple subserosal, intramural angel whorled nodules which measure the greatest dimension o f 1.0 cm. ??The endo-ectocervix is unremarka ble and the squamocolumnar junction is discernible. The right fallopian tube measures 8.0 cm in amelia th by 0.5 cm. ??The serosa is pink-angel and unremarkable. ? ?Serial sectioning reveals a angel muscular wall with no discrete lesions. ??The r ight ovary measures 2.5 x 2.5 x 2.0 cm. ??The surface is lobulated and hahn withou t any distinct lesions. ??Attached to the surface of the right ovary is a 0.8 x 0.5 x 0.2 cm angel nodule. ??This nodule is submitted with the ovarian section. ?? The left ovary measures 3.5 x 2.0 x 1.5 cm. ??It has a angel lobulated surface. ??Cut sectioning reveals an unremarkable ovarian stroma. ?? BLOCK CALL B1 ?Anterior full thickness end omyometrium B2 ?Anterior cervix B3 ?Posterior endomyometrium B4 ?Posterior cervix B5 ?Two financial services sales representative sections of right fallopian tube and one financial services sales representative section of right ? ovary with angel nodule B6 ?Rhia section of left ovary (Dr. Ledbetter-LEAH)/tmg End of Report Specimen Performing Organization Address City/State/ZIP Code Phon e Number [facility] [address] [place] [address] SERVICES [facility] [address] [place] [address] documented in this encounter Visit Diagnoses Not on filedocumented in this encounter
--- OUTSIDE RECORDS SUMMARY | 2022-02-13 17:04 | XMS_ITS | Encounter Summary ---
:1965 Author Organization [facility] Address [address] [place] [address] Care Team Providers Name Role Phone Una Dickinson Primary Care Provider [phone] Encounter Details Date Type Department Care Team Description 01/09/2021 Lab Requisition [facility] Outr Resulting Lab, Pathology & Laboratory Provider [facility] [address] [place] [address] Social History Tobacco Use Types Packs/Day Years Used Date Never Assessed Sex Assigned at Date Recorded Not on file documented as of this encounter Plan of Treatment Not on filedocumented as of this encounter Procedures Procedure Name Priority Date/Time Associated Diagnosis Comme nts CELIAC DISEASE Routine 01/08/2021 12:10 Results f or this PANEL EDT procedure are i n the results section. documented in this encounter Results (ABNORMAL) CELIAC DISEASE PANEL (01/08/2021 12:10 EDT) Tissue <1.2 <4.0 U/mL [facility] Transglutaminase Comment: CENTER Antibody IGA A negative result may be due to IgA deficiency and does not rule out celiac disease. LABORATORY SERVICES ? Negative: ??<4.0 U/mL ? Weak Positive: ??4.0 - 10.0 U/mL ? Positive: ??>10.0 U/mL Results were obtained with clover kelley Venaxis QUANTA Lite R h-tTG IgA DANYELLE assay on the Volofy DSX. IgA 80 (L) 85 - 499 [facility] mg/dL [facility] Celiac Disease Low total serum IgA. [facility] Interpretation Recommend referral to CENTER gastroenterology infantry operations specialist for SERVICES additional evaluation. Specimen Blood - Venous blood (substance) Performing Organization Address City/State/ZIP Code Phon e Number [facility] [address] [place] [address] SERVICES documented in this encounter Visit Diagnoses Not on filedocumented in this encounter Care Teams Roll Mill Operator Relationship Specialty Start Date End Date Una Dickinson PA PCP - General 11/10/17 documented as of this encounter
--- OUTSIDE RECORDS SUMMARY | 2022-02-13 17:04 | XMS_ITS | Encounter Summary ---
:1965 Author Organization [place] [address] Care Team Providers Name Role Phone Yamile De Leon APRN Primary Care Provider Reason for Referral Consultation (Routine) - Closed Specialty Diagnoses / Procedures Referred By Contact Refer red To Contact Dermatology Diagnoses Breast lesion Whitney Vanegas PA [facility] [address] [place] [address] [place] [address] Fax: Referral ID Status Reason Start Date Expiration Date Visits V isits Requested Authorized [id number] Closed Consult, Test 01/02/2022 01/02/2023 12 12 & Treat PCP Updated and/or Approved Encounter Details Date Type Department Care Team Description 01/02/2022 Transcribe Orders eDH Incoming Referra Whitney Molina Breast lesion [phone] LILLY Lopez [address] [place], [place] [address] (Wo rk) Social History Tobacco Use Types Packs/Day Years Used Date Current Every Day Smoker Cigarettes 1 Smokeless Tobacco: Never Used Comments: Currently using nicotine inhal er to help herself quit (11/08/18) Alcohol Use Standard Drinks/Week Comments Not Currently 0 (1 standard drink = 0.6 oz pure alcoho l) Sex Assigned at Date Recorded Not on file documented as of this encounter Plan of Treatment Scheduled Referrals Name Type Priority Associated Order Schedule Diagnoses Referral to Outpatient Referral Routine Breast lesion Ordered : Dermatology 01/02/2022 documented as of this encounter Visit Diagnoses Diagnosis Breast lesion Unspecified breast disorder documented in this encounter Care Teams Loan Review Manager Relationship Specialty Start Date End Date Yamile De Leon APRN PCP - General Family Medicine 10/01/18 [address] [place] [address] documented as of this encounter
--- OUTSIDE RECORDS SUMMARY | 2022-02-13 17:04 | XMS_ITS | Encounter Summary ---
:[address] [facility] Address [address] [place] [address] Care Team Providers Name Role Phone Una Dickinson Primary Care Provider [phone] Encounter Details Date Type Department Care Team Description 10/06/[address] [facility] Outr Resulting Lab, Pathology & Laboratory Provider [facility] [address] [place] [address] Social History Tobacco Use Types Packs/Day Years Used Date Never Assessed Sex Assigned at Date Recorded Not on file documented as of this encounter Plan of Treatment Not on filedocumented as of this encounter Procedures Procedure Name Priority Date/Time Associated Diagnosis Comme nts C. DIFFICILE PCR Routine 10/04/2019 8:00 EDT Resu lts for this procedure are i n the results section. documented in this encounter Results C. DIFFICILE PCR (10/04/2019 8:00 EDT) Pathologist Sig nature C. difficile PCR Negative Negative [facility] Specimen Feces - Specimen from rectum (specimen) Performing Organization Address City/State/ZIP Code Phon e Number [facility] [address] [place] [address] SERVICES documented in this encounter Visit Diagnoses Not on filedocumented in this encounter Care Teams Mileage Clerk Relationship Specialty Start Date End Date Una Dickinson PA PCP - General 11/10/17 documented as of this encounter
--- OUTSIDE RECORDS SUMMARY | 2022-02-13 17:04 | XMS_ITS | Encounter Summary ---
:1965 [place] [address] Care Team Providers Name Role Phone Haley Yamile Lexi GONZALEZ Primary Care Provider Encounter Details Date Type Department Care Team Description 01/27/2019 Ancillary Procedure Radiology Library at Aparna Reed, [facility] [place] [address] ORTHOPAEDIC SURGERY [phone] [place] [address] (Wo rk) Social History Tobacco Use Types [...] Associated Diagnosis Comme nts FILM LIBRARY Routine 01/27/2019 6:19 PM Results f or this STORAGE ONLY DX EDT procedure ar e in FOOT the results section. documented in this encounter Results Film Library- Storage Only DX Foot (01/27/2019 6:19 PM EDT) Specimen (Source) Anatomical Location Collection Method / Collectio n Time Received Time / Laterality Volume Narrative [facility] - 01/27/2019 6:19 PM EDT This exam is auto-finalizing. It's purpo se is for storage only. Aparna Reed MD IMG FILM LIBRARY ORDERABLES Performing Organization Address City/State/ZIP Code Phon e Number [facility] [place], [place] documented in this encounter Visit Diagnoses Not on filedocumented in this encounter Care Teams Funeral Home Location Manager Relationship Specialty Start Date End Date Yamile De Leon APRN PCP - General Family Medicine 10/01/18 [address] [place] [address] documented as of this encounter
--- OUTSIDE RECORDS SUMMARY | 2022-02-13 17:04 | XMS_ITS | Encounter Summary ---
:1965 Author Organization [facility] Address [address] [place] [address] Care Team Providers Name Role Phone Carlos Hyde MD Primary Care Provider Encounter Details Date Type Department Care Team Description 11/06/2017 Hospital Encounter [facility]- Yadira Jordan, Provider, [facility] 0 [facility] [phone] [place] [address] (Work) [phone] Social History Tobacco Use Types Packs/Day Years Used Date Never Assessed Sex Assigned at Date Recorded Not on file documented as of this encounter Discharge Disposition Disposition Code Departure Means Destination Home or Self Long-Term documented in this encounter Plan of Treatment Not on filedocumented as of this encounter Visit Diagnoses Not on filedocumented in this encounter Care Teams Machine Setter Automatic Relationship Specialty Start Date End Date Carlos Hyde MD PCP - General 03/31/15 11/09/17 documented as of this encounter
--- OUTSIDE RECORDS SUMMARY | 2022-02-13 17:04 | XMS_ITS | Encounter Summary ---
:1965 Author Organization [facility] Address [address] [place] [address] Care Team Providers Name Role Phone Una Dickinson Primary Care Provider [phone] Encounter Details Date Type Department Care Team Description 10/05/2019 Lab Requisition [facility] Outr Resulting Lab, Pathology & Laboratory Provider [facility] [address] [place], [place] [address] Social History Tobacco Use Types Packs/Day Years Used Date Never Assessed Sex Assigned at Date Recorded Not on file documented as of this encounter Plan of Treatment Not on filedocumented as of this encounter Procedures Procedure Name Priority Date/Time Associated Comments Diagnosis GIARDIA AND Routine 10/04/2019 8:00 Results for this CRYPTOSPORIDIUM ANTIGENS EDT pro cedure are in the results section. OVA/PARASITE EXAM Routine 10/04/2019 8:00 Results for this EDT procedure are i n the results section. documented in this encounter Results GIARDIA AND CRYPTOSPORIDIUM ANTIGENS (10/04/2019 8:00 EDT) Giardia and Cryptosporidium Cryptosporidium [facility] Cryptosporidium Antigen Neg and Antigen Neg and CENTER Giardia Antigen Neg Giardia Antigen Neg LABORATORY SERVICES Specimen Feces - Specimen from rectum (specimen) Performing Organization Address City/State/ZIP Code Phon e Number [facility] [address] [place] [address] SERVICES OVA/PARASITE EXAM (10/04/2019 8:00 EDT) Pathologist Sig nature Parasite No ova and parasites [facility] seen. LABORATORY SERVICES Specimen Feces - Specimen from rectum (specimen) Narrative [facility] - 10/06/2019 13:58 EDT (If Cryptosporidium, Cyclospora, or Micr osporidium are suspected, specific tests must be requested.) Single negative specimen does not rule out the possibility of a parasitic infection. Performing Organization Address City/State/ZIP Code Phon e Number [facility] [address] [place] [address] SERVICES documented in this encounter Visit Diagnoses Not on filedocumented in this encounter Care Teams Telemarketer Supervisor Relationship Specialty Start Date End Date Una Dickinson PA PCP - General 11/10/17 documented as of this encounter
--- OUTSIDE RECORDS SUMMARY | 2022-02-13 17:04 | XMS_ITS | Encounter Summary ---
:1965 Author Organization [facility] [place] [address] Care Team Providers Name Role Phone Yamile De Leon APRN Primary Care Provider Reason for Visit Reason Onset Date Comments Other 02/03/2019 Home Health Encounter Details Date Type Department Care Team Description 02/03/2019 Telephone Orthopaedics at [facility] Crista Warner RN Other (Home Health) [place] [address] Social History Tobacco Use Types Packs/Day Years [...] this encounter Miscellaneous Notes Telephone Encounter - Crista Warner RN - 02/03/2019 8:22 AM EDT Treatment order signed by provider and faxed back to [facility] ( ). Form in Scan Doc. documented in this encounter Plan of Treatment Not on filedocumented as of this encounter Visit Diagnoses Not on filedocumented in this encounter Care Teams Dimension Mill Worker Relationship Specialty Start Date End Date Yamile De Leon APRN PCP - General Family Medicine 10/01/18 [address] [place] [address] documented as of this encounter
--- OUTSIDE RECORDS SUMMARY | 2022-02-13 17:04 | XMS_ITS | Encounter Summary ---
:1965 Author Organization [facility] [place] [address] Care Team Providers Name Role Phone Yamile De Leon APRN Primary Care Provider Reason for Visit Reason Comments Foot Injury XR, ORIF Bilateral Foot Fx (Gitareji) Encounter Details Date Type Department Care Team Description 10/25/2018 Office Visit Orthopaedics at [facility] [place], Aparna Martinez, S/P ORIF bilateral [facility] foot fractures, [facility] 09/16/18 ([place]) [place] [address] [place] [address] ORTHOPAEDIC SURGERY [place], [place] [address] Social History Tobacco Use Types Packs/Day Years [...] Sign Reading Time Taken Comments Blood Pressure 112/67 10/25/2018 10:33 AM EDT Pulse 94 10/25/2018 10:33 AM EDT Temperature - - Respiratory Rate - - Oxygen Saturation - - Inhaled Oxygen Concentration - - Weight 83 kg (183 lb) 10/25/2018 10:33 AM EDT Height 154.9 cm (5' 1) 10/25/2018 10:33 AM EDT Body Mass Index 34.58 10/25/2018 10:33 AM EDT documented in this encounter Progress Notes Olivia Salinas - 10/25/2018 11:30 AM EDT Jenae La presents to the clinic for a cast off per Dr. Reed. The casts were intact upon arrival. The patient was explained how the cast saw works and the casts were removed. The patient tolerated this procedure well. The patient's pins were intact.The patient was then sent to x-ray. Aparna Reed MD - 10/25/2018 11:30 AM EDT Jenae La returns in follow-up 6 weeks s/p ORIF of bilateral crushed feet. She reports she is doing well. Her pain is well controlled. She has been doing well at home, non-weight bearing. [facility] FollowUp 10/01/2018 Health in general Good Quality of life Good Physical health Good Mental health Excellent Satisfaction with social activities Very Good Ability to carry out physical activities Not at all Rate of pain 5 Rate of fatigue Mild Ability to carry out social activities Fair Bothered by emotional problems Rarely PROMIS PHYSICAL HEALTH SCORE 37.4 PROMIS MENTAL HEALTH SCORE 53.3 Gone to ER since knee surgery No Admitted to hospital since knee surgery No Additional surgery on same knee No Employment status before injury Disabled and/or retired because of ill health Returned to previous employment No Spending time in inpatient rehab facility No Rate overall condition today 8 Physical Exam- In general a well developed well nourished female in no apparent distress. Examination of the bilateral feet reveals the incisions are clean dry and intact, well healed. EHL/FHL are intact. Capillary refill is < 3 seconds. Sensation is intact. Radiographs- xray shows the hardware is intact. Alignment is maintained. Assessment and Plan- Jenae La is a 53 y.o. female who returns in follow- up 6 weeks s/p surgery. She reports she is doing well. I removed all percutanous pins today, which she tolerated well. We discussed risks and benefits of hardware removal once she is completely healed (usually ~6-9 months postop), of all transarticular plates, which she would like to proceed with. In the interim, she wouldprefer to follow-up with Dr. Peña, closer to home. Plan for short leg casts for another 4-6 weeks, then transition to aicast boots and weight bear as tolerated starting in 6 weeks. She will follow-up with me in about 5 months to discuss hardware removal. Michelle Reed MD Department of Orthopaedic Surgery 10/25/18 Olivia Salinas - 10/25/2018 11:30 AM EDT Jenae La presents to the cast room for a cast on per Dr. Reed. The patient's skin is intact. The patient is going into well padded bilateral fiberglass short, short leg casts. The patient tolerated the procedure well. The patient was given instructions for cast care and was given instruction to call the clinic with any questions or concerns. documented in this encounter Plan of Treatment Not on filedocumented as of this encounter Visit Diagnoses Diagnosis S/P ORIF bilateral foot fractures, (Brianna) documented in this encounter Care Teams Hydrologist Relationship Specialty Start Date End Date Yamile De Leon APRN PCP - General Family Medicine 10/01/18 [address] [place] [address] documented as of this encounter
--- OUTSIDE RECORDS SUMMARY | 2022-02-13 17:04 | XMS_ITS | Clinical Summary ---
:1965 Author Organization [facility] [place] [address] Care Team Providers Name Role Phone Yamile De Leon APRN Primary Care Provider Allergies Active Allergy Reactions Severity Noted Date Comments Hymenoptera Allergenic Extract Other (See Comments) Medium Swelling Sulfa (Sulfonamide Antibiotics) 2 Tape, Occlusive Adhesive 09/24/2011 Medications Medication Sig Dispensed Refills Start Date End Date Status acetaminophen Take 2 tablets by 30 tablet 1 09/20/2018 Active (TYLENOL) 500 mg mouth every 8 hours Tablet as needed for Pain. BASAGLAR KWIKPEN INJECT 18 UNITS 3 08/29/2018 Active U-100 INSULIN 100 SUBCUTANEOUSLY EVERY unit/mL (3 mL) pen MORNING metFORMIN TAKE ONE TABLET BY 3 06/05/2018 Active (GLUCOPHAGE) 500 mg MOUTH TWICE A DAY Tablet ondansetron (ZOFRAN) TAKE 1 TABLET BY 0 08/30/2018 Active 4 mg Tablet MOUTH EVERY 6 HOURS NEEDED FOR NAUSEA HYDROcodone-acetamin TAKE ONE TABLET BY 0 09/29/2018 Active ophen (NORCO) 5-325 MOUTH THREE TIMES A mg Tablet DAY NEEDED FOR SEVERE BACK PAIN ranitidine (ZANTAC) TAKE ONE TABLET BY 2 09/28/2018 Active 150 mg Tablet MOUTH AT BEDTIME ibuprofen TAKE ONE TABLET BY 3 09/22/2018 Active (ADVIL;MOTRIN) 600 MOUTH THREE TIMES A mg Tablet DAY NEEDED FOR PAIN albuterol Take 2.5 mg by 0 Activ e (PROVENTIL) 2.5 mg nebulization every 4 /3 mL (0.083 %) hours as needed for Solution for Wheezing. Nebulization albuterol 90 Inhale 2 puffs into 0 Active mcg/actuation HFA the lungs every 4 Aerosol Inhaler hours as needed for Wheezing. Use with spacer fluticasone Inhale 1 puff into 0 Active propion-salmeterol the lungs every 12 (ADVAIR) 250-50 hours. mcg/dose Disk with Device pantoprazole Take 10 mg by mouth 0 Active (PROTONIX) 20 mg daily. Tablet, Delayed Release (E.C.) Magnesium Oxide 250 Take 250 mg by mouth 0 Active mg magnesium daily. 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 Encounters Date Type Specialty Care Team Description 01/02/2022 Transcribe Orders Primary Care Whitney Vanegas PA Breast lesion from Last 3 Months Social History Tobacco Use Types Packs/Day Years [...] Assigned at Date Recorded Not on file Last Filed Vital Signs Vital Sign Reading Time Taken Comments Blood Pressure 113/70 11/08/2018 3:52 PM EDT Pulse 99 11/08/2018 3:52 PM EDT Temperature 36.4 ??C (97.6 ??F) 10/08/2018 10:48 AM EDT Respiratory Rate 22 09/20/2018 11:33 AM EDT Oxygen Saturation 97% 09/20/2018 11:33 AM EDT Inhaled Oxygen Concentration - - Weight 83 kg (183 lb) 11/08/2018 3:52 PM EDT Height 154.9 cm (5' 0.98) 11/08/2018 3:52 PM EDT Body Mass Index 34.6 11/08/2018 3:52 PM EDT Plan of Treatment Health Maintenance Due Date Last Done Comments Covid-19 Vaccine (#1) 08/15/1972 DM Opthalmology Exam 08/15/1977 DM Urine Microalbumin yearly 08/15/1977 HIV screen 08/15/1985 Hepatitis C Screening 08/15/1985 Lipid Screening 08/15/1985 Tdap adult 08/15/1986 Tetanus vaccine 08/15/1986 HPV test 08/15/1997 PAP Smear 08/15/1997 Breast Cancer Share Decision 2007 Needed Colonoscopy 08/15/2012 Breast Cancer screening 08/15/2017 Zoster vaccine (1 of 2) 08/15/2017 DM Hemoglobin A1c 12/16/2018 09/16/2018 DM Creatinine yearly 09/20/2019 09/19/2018, 09/18/2018, 09/17/2018, Additional history exists Influenza (Flu) vaccine (1 of 1 - 01/23/2022 Influenza standard series) Medical Devices Implanted Type Area Fish Hatchery Man Device Shelf Model / Identifier Expiration Serial / Date Lot [id number] ([id number]) - [id number] Right: NOLBERTO BLAS & [id number] / Implanted: Qty: 3 on 09/16/2018 by Aparna Reed MD at [facility] Foot [employer] / [facility] [place] Explanted Type Area [employer] Hatcher[employer] Man Device Shelf Model / Identifier Expiration Serial / Date Lot Allan Welch Troc 1ed,[id number] ([id number]) - [id number] Right : SHANTANU.10 / Explanted: Qty: 2 on 09/16/2018 by Aparna Reed MD at [facility] Foot [employer] / [facility] - [place] Insurance Payer Benefit Plan / Subscriber ID Effective Dates Phone Addre ss Type Group MEDICARE MEDICARE PART [id number] 2007-Presen [id number] [place] [address] [place] [id number] 2019-Prese [phone] [address] [place] [address] Advance Directives Latest Code Status on File Code Status Date Activated Date Inactivated Comments Full Code 09/14/2018 8:58 PM 09/20/2018 7:19 PM Does patient have capacity to make decision: Yes Care Teams Pipe Racker Relationship Specialty Start Date End Date Yamile De Leon, CARLOS PCP - General Family Medicine 10/01/18 [address] [place] [id number]
--- OUTSIDE RECORDS SUMMARY | 2022-02-13 17:04 | XMS_ITS | Encounter Summary ---
:1965 Author Organization [facility] Address [address] [place] [address] Care Team Providers Name Role Phone Unavailable Primary Care Provider Unavailable Encounter Details Date Type Department Care Team Description 04/14/2003 Results Only [facility] - Julieta Esquivel MD [employer] [address] [place] [address] [place] [address] Social History Tobacco Use Types Packs/Day Years Used Date Never Assessed Sex Assigned at Date Recorded Not on file documented as of this encounter Plan of Treatment Not on filedocumented as of this encounter Procedures Procedure Name Priority Date/Time Associated Diagnosis Comme [facility] SURGICAL PATHOLOGY Routine 04/14/2003 0:00 EST Re sults for this procedure are i n the results section. documented in this encounter Results SURGICAL PATHOLOGY (04/14/2003 0:00 EST) Pathology Report: SURGICAL PATHOLOGY REPORT STARR Camilo FELICIANO Reports generated via electronic interface contain catrachita ginal data; LAB however they are lacking the format of the original re port. Caution should be taken when reading/interpreting unfo rmatted reports. Name: ? ERICKSON LA ? Accession #: ? [id number] ? : ? 1965 (Age: 37) ??F ? Collect Date: ? 04/14/2003 ? Location: ? [facility] ? Receive Date: ? 003 ? Provider: CHARLES ESQUIVEL MD Copy to: DORIS TAY MD ? Final Pathologic Diagnosis: ? Fallopian tube, left, excision: 1. 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 2. ?Negative for malignancy. ? Document reviewed and electronically signed by: BEL CAPUTO MD Report ??Date: 04/19/2003 13:29 By the signature above, the attending physician certif ies that he/she has personally conducted a gross and/or microscopic examin ation of the described specimens and rendered or confirmed the above diagnosi s. Specimen(s) Received: ? L tube; L hydrosalpinx Clinical History: ? L adnexal mass Gross Description: ? Received in normal saline labeled Abhinav is a fallopian tube that is fragmented into two portions, and has an overall measu rement of 6.5 cm in length, and varies in diamet er from 0.4 to 3.0 cm. ??Serial sectioning reveals a markedly dilated portion of the fallopian tube with a wall thickness of 0.1 cm. The less dilated portion of the fallopia n tube has a wall thickness of 0.2 cm. No are identified. ??Three r epresentative sections of normal-appearing fallopian tube are submitted as (A1), and two personal financial representative sec tions of the dilated portion are submitted as (A2). ??(Dr. Beverly)/[facility] End of Report Specimen Performing Organization Address City/State/ZIP Code Phon e Number [facility] [address] [place] [address] SERVICES [facility] [address] [place] [address] documented in this encounter Visit Diagnoses Not on filedocumented in this encounter
--- OUTSIDE RECORDS SUMMARY | 2022-02-13 17:05 | XMS_ITS | Encounter Summary ---
:1965 Author Organization [facility] [place] [address] Care Team Providers Name Role Phone None Primary Care Provider Unavailable Encounter Details Date Type Department Care Team Description 09/20/2018 Orders Only [place] [facility] S/P ORIF bilateral [facility] TLILLY foot fractures, [facility] 09/16/18 (Gitajn) [place] [id number] [phone] ORTHOPAEDIC SURGERY [place], [place] [address] Social History Tobacco Use Types Packs/Day Years Used Date Former Smoker Sex Assigned at Date Recorded Not on file documented as of this encounter Plan of Treatment Not on filedocumented as of this encounter Results XR Foot Min 3 views Bilat (Generic) (10/01/2018 9:16 AM EDT) Anatomical Region Laterality Modality Foot Bilateral Digital Radiography Specimen (Source) Anatomical Location Collection Method / Collectio n Time Received Time / Laterality Volume Impressions 10/01/2018 9:51 AM EDT Fixation of bilateral complex foot fractures. There is no change in appearance since the prior study. Thank you for letting us participate in the care of this patient. For questions regarding this report, please contact e number below. ? Electronically signed by: Marizol Franklin Count Includes [facility] ([phone]), at 10/01/2018 9:51 AM Narrative 10/01/2018 9:51 AM EDT EXAMINATION: XR FOOT MIN 3 VIEWS BILAT (GENERIC) CLINICAL HISTORY: s/p bilateral foot DEVANTE F TECHNIQUE: 3 views BILATERAL feet COMPARISON: September 16, 2018 September 12, 2018 FINDINGS: Right foot A cast is present and obscures fine bone detail. There has been a Lisfranc fracture dislo cation. Repair has been performed with placement of three wires across the thir d, fourth and fifth metatarsal-phalangeal joints. There is p late and screw fixation of the second tarsal metatarsal joint. There is plate and screw fixation of the first tarsal metatarsal joint. Screws are also presen t in the cuneiforms. ??There has also been plate and screw fixation of a fract ure of the proximal phalanx of the great toe. The appearance of the foot is uncha nged since the prior study. Left foot A cast is present and obscures fine bone detail. There has been a fracture dislocation of the Lisfranc joint. Fractures are also seen in the necks of the second and thir d metatarsals and in the proximal phalanx of the fifth toe. Pins have been placed across the second, third and fourth metatarsophalangeal joints. The a ppearance of the foot is unchanged since prior study. Procedure Note Dileep Saunders MD - 10/01/2018 EXAMINATION: XR FOOT MIN 3 VIEWS BILAT ( GENERIC) CLINICAL HISTORY: s/p bilateral foot DEVANTE F TECHNIQUE: 3 views BILATERAL feet COMPARISON: September 16, 2018 September 12, 2018 FINDINGS: Right foot A cast is present and obscures fine bone detail. There has been a Lisfranc fracture dislo cation. Repair has been performed with placement of three wires across the thir d, fourth and fifth metatarsal-phalangeal joints. There is p late and screw fixation of the second tarsal metatarsal joint. There is plate and screw fixation of the first tarsal metatarsal joint. Screws are also presen t in the cuneiforms. There has also been plate and screw fixation of a fract ure of the proximal phalanx of the great toe. The appearance of the foot is uncha nged since the prior study. Left foot A cast is present and obscures fine bone detail. There has been a fracture dislocation of the Lisfranc joint. Fractures are also seen in the necks of the second and thir d metatarsals and in the proximal phalanx of the fifth toe. Pins have been placed across the second, third and fourth metatarsophalangeal joints. The a ppearance of the foot is unchanged since prior study. IMPRESSION Fixation of bilateral complex foot fract ures. There is no change in appearance since the prior study. Thank you for letting us participate in the care of this patient. For questions regarding this report, please contact e number below. Electronically signed by: Marizol Franklin Count Includes [facility] ([phone]), at 10/01/2018 9:51 AM Javad Urban MD IMG DX ORDERABLES documented in this encounter Visit Diagnoses Diagnosis S/P ORIF bilateral foot fractures, (Gitajn) S/P ORIF bilateral foot fractures, (Gitajn) documented in this encounter Care Teams [employer] Stitcher Relationship Specialty Start Date End Date None PCP - General 09/14/18 09/30/18 None documented as of this encounter
--- OUTSIDE RECORDS SUMMARY | 2022-02-13 17:05 | XMS_ITS | Encounter Summary ---
:1965 Author Organization [facility] [place] [address] Care Team Providers Name Role Phone Yamile De Leon APRN Primary Care Provider Encounter Details Date Type Department Care Team Description 10/01/2018 Hospital Encounter XRay at [facility] [place], Javad Mueller, S/P ORIF bilateral [address] [facility] [address] [place] foot fractures, [facility] 09/16/18 (Gitajn ) [id number] [place] [phone] [place] [address] Social History Tobacco Use Types Packs/Day Years Used Date Former Smoker Alcohol Use Standard Drinks/Week Comments Not Currently [...] (NORCO) 5-325 mg MOUTH THREE TIMES A Tablet DAY NEEDED FOR SEVERE BACK PAIN ranitidine (ZANTAC) TAKE ONE TABLET BY 2 09/29/19 19 150 mg Tablet MOUTH AT BEDTIME ibuprofen TAKE ONE TABLET BY 3 09/22/2018 (ADVIL;MOTRIN) 600 mg MOUTH THREE TIMES A Tablet DAY NEEDED FOR PAIN acetaminophen Take 2 tablets by 30 tablet 1 09/20/2018 (TYLENOL) 500 mg mouth every 8 hours as Tablet needed for Pain. BASAGLEZEQUIEL LOPEZPEN U-100 INJECT 18 UNITS 3 08/30/19 19 INSULIN 100 unit/mL (3 SUBCUTANEOUSLY EVERY mL) pen MORNING metFORMIN (GLUCOPHAGE) TAKE ONE TABLET BY 3 06/05 500 mg Tablet MOUTH TWICE A DAY ondansetron (ZOFRAN) 4 TAKE 1 TABLET BY MOUTH 0 0 08/30/2018 mg Tablet EVERY 6 HOURS NEEDED FOR NAUSEA cephalexin (KEFLEX) Take 1 tablet by mouth 28 tablet 0 09/2210/08/2018 500 mg Tablet 4 times daily for 7 days. enoxaparin (LOVENOX) Inject 0.4 mLs 26 Syringe 0 09/20/2018 10/16/2018 40 mg/0.4 mL Syringe subcutaneously nightly for 26 days. HYDROmorphone Take 1 tablet by mouth 40 tablet 0 09/20/2018 10/25/2018 (DILAUDID) 2 mg Tablet every 4 hours as needed for Pain. Resume your home pain medication once this script is complete polyethylene glycol Take 17 g by mouth 2 14 each 0 201810/25/2018 (MIRALAX) 17 gram times daily. Powder in Packet senna-docusate Take 2 tablets by 60 tablet 0 09/20/201807/2018 (PERICOLACE) 8.6-50 mg mouth 2 times daily. Tablet gabapentin (NEURONTIN) TAKE 1 CAPSULE ORALLY 5 10/25/2018 300 mg Capsule AT BEDTIME FOR 1 WEEK THEN INCREASE TO 2 CAPSULES THEREAFTER pantoprazole TAKE ONE TABLET BY 3 07/13/201810/23 (PROTONIX) 40 mg MOUTH DAILY IN THE Tablet, Delayed MORNING Release (E.C.) simvastatin (ZOCOR) 20 TAKE ONE TABLET BY 3 03/2511/08/2018 mg Tablet MOUTH EVERY NIGHT AT BEDTIME CIS Free Text Med - 0 04/12/200911/08 Albuterol FLUTICASONE/SALMETEROL 0 04/12/2009 (ADVAIR DISKUS INHL) MEPERIDINE HCL 0 04/12/2009 10/25/2018 (DEMEROL ORAL) documented as of this encounter Plan of Treatment Not on filedocumented as of this encounter Procedures Procedure Name Priority Date/Time Associated Diagnosis Comme nts XR FOOT MIN 3 VIEWS Routine 10/01/2018 9:16 AM S/P ORIF bilate ral Results for this BILAT EDT foot fractures, [...] report, please contact e number below. ? Narrative 10/01/2018 9:51 AM EDT EXAMINATION: XR [...] report, please contact th e number below. Javad Urban MD IMG DX ORDERABLES documented in this encounter Visit Diagnoses Diagnosis S/P ORIF bilateral foot fractures, (Gitajn) documented in this encounter Care Teams Director Of National Sales Relationship Specialty Start Date End Date Yamile De Leon, MANAGER ENGLISH PCP - General Family Medicine 10/01/18 [address] [place] [address] documented as of this encounter
--- OUTSIDE RECORDS SUMMARY | 2022-02-13 17:05 | XMS_ITS | Encounter Summary ---
:1965 Author Organization [facility] [place] [address] Care Team Providers Name Role Phone None Primary Care Provider Unavailable Reason for Visit Auth/Cert Specialty Diagnoses / Procedures Referred By Contact Refer red To Contact Diagnoses Fracture of unspecified tarsal bone(s) of unspecified foot, initial encounter for closed fracture CLOSED HEAD INJURY, FOOT BONE FX'S -CONFUSED Procedures EMERGENCY IPI Referral ID Status Reason Start Date Expiration Date Visits Requ ested Visits Authorized [id number] 1 1 Encounter Details Date Type Department Care Team Description 09/16/2018 Surgery Main Operating Room Aparna Reed MD ORIF METATARSAL FX, [facility] (WRVU 7.44) [facility] ORTHOPAEDIC [place] [id number] [place] [phone] Social History Tobacco Use Types Packs/Day Years Used Date Former Smoker Sex Assigned at Date Recorded Not on file documented as of this encounter Last Filed Vital Signs Vital Sign Reading Time Taken Comments Blood Pressure 132/109 09/16/2018 9:45 AM EDT Pulse 71 09/16/2018 9:45 AM EDT Temperature 37 ??C (98.6 ??F) 09/16/2018 8:53 AM EDT Respiratory Rate 16 09/16/2018 9:45 AM EDT Oxygen Saturation 93% 09/16/2018 9:45 AM EDT Inhaled Oxygen Concentration - - Weight 83 kg (183 lb) 09/15/2018 9:24 AM EDT Height 154.9 cm (5' 1) 09/15/2018 9:24 AM EDT Body Mass Index 34.58 09/15/2018 9:24 AM EDT documented in this encounter Discharge Summaries Buffy Russell PA - 09/20/2018 7:01 AM EDT Discharge Summary Patient Name: Jenae La Patient Age: 53 y.o. Language: Somali Race: White Ethnicity: Not nor Admit date: 09/14/2018 Discharge date and time: 09/20/2018 Attending Physician: Javad Urban MD Discharge Physician: Javad Urban MD Follow-up Recommendations for Providers: See discharge instructions for additional details. Future Appointments Date Time Provider Department Center 10/01/2018 10:00 AM [facility] DX ROOM 1 Xray [facility] 10/01/2018 11:00 AM Mary Ellison PA [facility] 3C [facility] 11/08/2018 1:00 PM Abdirahman Enamorado MD Le[facility] Neuro [facility] Inpatient Provider Contact Information: Javad Urban MD Orthopedics: [phone] After hours and weekends, call [facility] Orthopedic Designer, , and have the Orthopedic resident paged. Discharge Diagnoses (Hospital Problems) and Secondary Diagnoses (Chronic Problems): Active Hospital Problems Diagnosis ??? S/P ORIF bilateral foot fractures, 09/16/18 (Brianna) Resolved Hospital Problems No resolved problems to display. Active Non-Hospital Problems Diagnosis ??? Hypertension ??? Hyperlipidemia ??? Type 2 diabetes mellitus without complication, with long-term current use of insulin ??? Chronic pain ??? LORRI on CPAP ??? Gastroesophageal reflux ??? Psoriasiform dermatitis Operations/Major Procedures: 09/16/2018 Surgeon(s) and Role: * Aparna Reed MD - Primary * Noy Zamora MD - Resident * Sanket Freeman MD - Resident Procedure(s): ORIF METATARSAL FX, EACH (WRVU 7.44) MODIFIER LOCKING SMALL FRAGMENT SYNTHES MODIFIER 4.0 CANNULATED SCREW SYNTHES MODIFIER LOCKING MINI FRAGMENT SYNTHES OPEN TREAMENT TARSOMETATARSAL JOINT DISLOCATION (WRVU 10.7) PERCUTANEOUS PINNING, TARSOMETATARSAL JOINT DISLOCATION (WRVU 5.09) PERCUTANEOUS PINNING, METATARSAL FX, EA. (WRVU 3.6) ORIF GREAT TOE (WRVU 7.44) CLOSED REDUCTION TARSAL BONE FX (WRVU 3.24) History of Present Illness: Jenae La is a 53 y.o. female with history pertinent for insulin-dependent diabetes type 2, fibromyalgia, chronic opiate use, and LORRI on CPAP who presents as a direct admit to the orthopaedics service as a transfer from [facility] for operative management of bilateral complex foot fractures. Mrs. La reports dropping a piece of firewood on her feet on the evening of 09/11/2018. This resulted in immediate pain in both of her feet, lateraccompanied by swelling and bruising. Over the next day she had multiple falls that she attributes to significant foot pain with ambulation. She struck her head multiple times, leading her to present to [facility] on 09/12/2018 for evaluation. ?? Initial work-up at [facility] revealed sepsis secondary to suspected community- acquired pneumonia, mild acute exacerbation of COPD, a closed head injury with postconcussive syndrome, multiple bilateral foot fractures, and MANUEL, resulting in hospital admission. Upon presentation to the [facility] ED, her and her reported instances of trembling and fecal incontinence. She was observed to be confused and have unilateral arm and lip twitching in the ED. A lumbar puncture was performed for suspicion of meningitis, but this was reported to be negative. Mrs. La was admitted to the ICU, where empiric azithromycin and Rocephin, IV steroids, nebulizer treatments, empiric Keppra was initiated. Within 24 hours of admission, the patient's mental status reportedly returned to baseline. ?? On the day of transfer, the patient's blood and CSF cultures reportedly showed no growth to date, sputum cultures were in process, the MANUEL was resolved, and patient was not requiring oxygen. Patient was noted to be Hemoccult positive with no active bleeding observed. General Surgery at [facility] evaluated the patient, and felt no further action was required besides outpatient follow up. ?? Upon arrival to [facility], Mrs. La reports moderate pain in her feet, right worse than left. Her pain is no worse than it has been the preceding few days. She denies having pain in any other location. She endorses shortness of breath when lying flat and denies having any chest pain, nausea, vomiting, fevers, chills, tingling or numbness. On arrival a Patel catheter was in place and bilateral posterior slab splints were on the lower extremities. Hospital Course: Jenae La was admitted from the Emergency Department for evaluation and treatment of the aboveinjury. She was cleared by Hospital Medicine for surgical intervention of her bilateral foot fractures on HD#2. On HD#3 she was taken to surgery for the above procedure. She tolerated the procedure anddid well post- operatively. On POD#1 the patient was started on oral pain medications. The patient was referred to PT for mobility training - non-weight bearing of bilateral legs. The patel was removed and the patient was voiding spontaneously in good amounts. Per Neurology Keppra was stopped and EEG was negative for any seizure activity. Recommend outpatient follow up. POD#2-4 were uneventful as the patient continued with her rehabilitation. She did have a bowel movement prior to discharge and was passing flatus and was taking po without difficulty. On POD#4 the patient was medically clear with stable vital signs and determined safe for discharge to home. Hospital Medicine Consult: ASSESSMENT/PLAN: Jenae La is a 53 y.o woman with HTN, HLD, Type II DM, LORRI on CPAP, fibromyalgia with chronic opioid use, and GERD who was admitted to the Orthopedic Surgery Service as a transfer from [facility] for definitive operative management of bilateral complex foot fractures s/p trauma on the evening of 09/11/18.??Medicine was consulted for CAP management.??The patient is also suffering from community acquired pneumonia without a confirmed diagnosis of COPD (no known pulmonary function tests within the chart) for which we will recommend completing a total 5 day course of antibiotics (to complete today)??with discontinuation of her stress dose steroids (stopped yesterday). She has no O2 requirement, no SOB, reports improved cough which is non-productive. The patient has no neurologic deficits and it is unclear if she demonstrated seizure-like activity during her presentation at [facility], thus would recommend consulting Neurology to determine??the need for an EEG to rule out sub-clinical seizure and determine the need to continue keppra. The patient's revised cardiac risk index is a Class I risk (0 points) with a 3.9% 30 day risk of , [place], or cardiac arrest. No further cardiac work up is recommended prior to surgical intervention. The patient's ACS NSQIP Surgical Risk Calculator demonstrates the patient has a 7.9% (below average)risk of serious complication, a 9.7% (below average) risk of any complication, an 0.2% (below average) of a cardiac complication, and an 0.1% (below average) risk of .? #??Bilateral complex foot fractures 2/2 trauma - S/p XR of foot - S/p CT lower extremities - S/p second read of CT lower extremity - Surgical intervention per Orthopedic Surgery Team - potential OR for ORIF of foot fractures today. - Pain: tylenol 1g q8hr, per primary team # Asthma # Community acquired pneumonia - F/u OSH sputum cultures - S/p CXR - S/p CT Chest at OSH: bilateral patchy ground glass opacities - Plan to treat for a total 5 day course of antibiotics, to complete today - Ceftriaxone 1g IV q24 hours (09/12/18 - 09/16/18) - Azithromycin 500mg V q24 hours (09/12/18 - 09/16/18) - Steroids d/c'd yesterday - Goal SaO2 > 92%, oxygen supplementation as needed - Consider performing PFTs as an outpatient to evaluate for COPD given the patient's tobacco use - OSH legionella and strep pneumonia is negative - Duonebs q6hr prn, has not been requiring # 6.8mm RUL Nodule - S/p OSH CT Chest with evidence of 6.8mm RUL nodule - Will need a follow up with a low dose CT Chest to evaluate evolution of the patient's RUL nodule within 6-12 months # Post-concussive syndrome - Keppra 1g IV bid - Consider neurology consult??to evaluate for subclinic seizures with an EEG and determine need to continue with keppra #??HTN - Stable, no active issues - Goal BP < 140/90 #??HLD -??Recommend aspirin 81mg daily instead of bid - Simvastatin 20mg qhs #??Type II DM - SSI - Obtain A1c #??LORRI on CPAP - Stable, no active issues - CPAP nightly # GERD - Stable, no active issues # Fibromyalgia with chronic opioid use - Stable, no active issues - Holding home hydrocodone 5mg - acetaminophen 500mg 1 tablet bid - Pain:?tylenol 1g q8hr # Tobacco use - Consider need for nicotine patch 21mg qd, per patient preference This patient was discussed with the Medicine Consult Attending. Further adjustments to the plan willbe reflected in their addendum. ? Consult service will continue to follow patient. X?? Recommendations are above, please page if further consultation required. ?? Aries Lyon MD, PGY-3 09/16/2018 Medicine Consult Neurology Consult: Assessment: Jenae La is a 53 y.o. female with past medical history significant for type 2 diabetes, fibromyalgia, chronic opiate use, and obstructive sleep apnea (on CPAP at home) who presents as a transferto the orthopedic service from [facility] for bilateral complex foot fractures. ?? Patient had routine EEG completed today that did not show any epileptiform activity. I think at thistime it is still difficult to say for certain that she had seizures during her presentation. The notes from the outside hospital note some twitching but this has not been seen during her hospitalization with us. It is possible that the Keppra was masking/supressing this. She does not believe she had seizures and was not tolerating the Keppra well while she was on it. I think it is safe to discharge her without the Keppra and with follow up to neurology in 4-6 weeks to see if there are any repeat episodes. If there are any repeat episodes, we can consider a prolonged ambulatory EEG at that time and d iscuss other anti-seizure medications. ?? She is safe to discharge from our point of view. ?? We will sign off at this time. Please feel free to page us at the number listed below if you have any concerns about our recommendations or if you have a new neurological question regarding the patient's care. ?? Plan: -STOP Keppra -Follow up with neurology in 4-6 weeks (we will set up this appointment) ?? Abdirahman Enamorado MD Neurology Resident - PGY-3 General Neurology Consults Vital Signs at Discharge: Weight: Wt Readings from Last 1 Encounters: 09/15/18 83 kg (183 lb) Height: Ht Readings from Last 1 Encounters: 09/15/18 154.9 cm (5' 1) HC: HC Readings from Last 1 Encounters: No data found for HC BMI: Body mass index is 34.58 kg/m??. Last value Range last 24 hrs Temperature Temp: 37.5 ??C (99.5 ??F) Temp: [36.7 ??C (98.1 ??F)-37.9 ??C (100.2 ??F)] Heart Rate Heart Rate: 77 Heart Rate: [77-86] Blood Pressure BP: 140/78 BP: (121-140)/(60-81) Respiratory Rate Resp: 22 Resp: [16-22] SpO2 SpO2: 97 % SpO2: [93 %-98 %] Art BP BP (Arterial Line): -- Functional and Cognitive Status: Patient mobilizing with Wheelchair, cognitively intact at baseline mental status at time of discharge. Important Lab Data: Last 3 wbc, hgb, hct plt Recent Labs 09/15/18 0344 WBC 11.2* HGB 9.6* HCT 29.5* PLATELET 244 Last 3 Lytes Recent Labs 09/19/18 0340 09/18/18 0337 09/17/18 0902 NA 140 143 144 K 4.0 3.1* 2.9* CL 104 106 108* CO2 27 26 25 BUN 11 7* 9 CREATININE 0.64* 0.62* 0.59* Studies: Request For 2nd Read Ct Lower Extremity Result Date: 09/14/2018 EXAMINATION: REQUEST FOR 2ND READ CT LOWER EXTREMITY CLINICAL HISTORY: assess multiple fractures; location of fractures/dislocations; What Modality is the exam? CT Scan; Body Part (please add comments as necessary): bilateral feet; I believe a reinterpretation of this exam may alter care of Patient. Yes, entered by ordering service TECHNIQUE: 1 mm non-contrast axial CT images of the [ ] were acquired. Sagittal and coronal reformats [and 3D models] were created. COMPARISON: None FINDINGS: OSSEOUS STRUCTURES: 1. Lateral malleolus-distal fibular fracture Motley A 2. Anterior malleolus-nondisplaced small comminuted intra-articular fracture resembles a chaput fragment. 3. Cuboid-comminuted displaced fracture of the lateral cortex. 4. Lisfranc injury-fracture subluxation of 1-4 TMT joints. There are multiple displaced fracture fragments and malalignment. 5. Naviculocuneiform joints-normal. 6. 1 and 2 proximal phalanges [PP]-comminuted intra-articular fracture with a large bone defect at phalangeal articular surface. 7. 1 metatarsal-comminuted impaction of medial first metatarsal head. 8. 2-4 metatarsal bases-multiple tiny comminuted fracture fragments at base with malalignment of tarsometatarsal joints 9. 3 cuneiforms- multiple intra-articular displaced fractures with malalignment. JOINTS: Lisfranc joint-dorsal and lateral subluxation of 2-4 TMT joints. TENDONS: No displaced tendons. MUSCLES: No fatty atrophy. SOFT TISSUES: Diffuse subcutaneous edema most pronounced at the dorsum 1. Lisfranc fracture dislocation at multiple locations. 2. Additional fractures of the 1 and 2 PP and 1 metatarsal heads. 3. Motley A fracture of the lateral malleolus 4. Nondisplaced intra-articular fracture of the anterior tibia/malleolus. Thank you for letting us participate in the care of this patie nt. For questions regarding this report, please contact the number below. Electronically signed by: Sheila Joaquin [facility] ([phone]), at 09/14/2018 4:41 PM Xr Foot Min 3 Views Bilat (generic) Result Date: 09/16/2018 EXAMINATION: XR FOOT MIN 3 VIEWS BILAT (GENERIC) CLINICAL HISTORY: s/p ORIF bilateral foot fractures, , entered by ordering service TECHNIQUE: 3 views each foot COMPARISON: CT scan from August 2018. FINDINGS: Cast material obscures evaluation of bone and soft tissue details. ORIF of bilateral complex foot fractures and dislocations. Bones: The fracture lines are mostly obscured by overlying cast. Left K wires traversing 2, 3 and 4 metatarsals. Additional dorsal fixation plate at base of 4 metatarsal. Right 1. 1 proximal phalanx-plate and screw fixation of comminuted intra-articular fracture. 2. 3-5 metatarsals-K wires at bases of metatarsals. 3. 1 and 2 TMT joint-dorsal plate and screw fixation across metatarsals and cuneiforms. Lisfranc joints: The malalignment at bilateral Lisfranc joint is reduced. ORIF of bilateral complex foot fracture and dislocations. Thank you for letting us participate in the care of this patient. For questions regarding this report, please contact the number below. Electronically signed by: Sheila Joaquin [facility] ([phone]), at 09/16/2018 3:47 PM Pending Studies and Lab Data at Discharge: * No orders in the log * Transfusions: No Discharge Conditions/Prognosis: Stable, awake, and alert. Mobilizing as noted above, pain controlledon oral medications. Discharge to: Home HOME HEALTH CARE AGENCY: ??[facility] ?? PHONE: [phone] FAX: [phone] Updated Allergies/ADRs: Allergies Allergen Reactions ??? Sulfa (Sulfonamide Antibiotics) ??? Tape, Occlusive Adhesive Immunizations Given this Hospitalization: There is no immunization history on file for this patient. Discharge Medications: Your Medications Some of the medications listed here do not show instructions, such as how often to take the medication. Ask your doctor or nurse how to use these medications. Specifically ask about these and similar medications: ?? CIS Free Text Med - Albuterol ?? FLUTICASONE/SALMETEROL (ADVAIR DISKUS INHL) ?? MEPERIDINE HCL (DEMEROL ORAL) New Medications Dose Details acetaminophen 500 mg Tab Commonly known as: TYLENOL Take 2 tablets by mouth every 8 hours as needed for Pain. 1000 mg Quantity: 30 tablet Refills: 1 enoxaparin 40 mg/0.4 mL Syrg Commonly known as: LOVENOX Inject 0.4 mLs subcutaneously nightly for 26 days. 40 mg Quantity: 26 Syringe Refills: 0 HYDROmorphone 2 mg Tab Commonly known as: DILAUDID Take 1 tablet by mouth every 4 hours as needed for Pain. Resume your home pain medication once this script is complete 2 mg Quantity: 40 tablet Refills: 0 polyethylene glycol 17 gram Pwpk Commonly known as: MIRALAX Take 17 g by mouth 2 times daily. 17 g Quantity: 14 each Refills: 0 senna-docusate 8.6-50 mg Tab Commonly known as: PERICOLACE Take 2 tablets by mouth 2 times daily. 2 tablet Quantity: 60 tablet Refills: 0 Continued medications, unchanged Dose Details ADVAIR DISKUS INHL Refills: 0 BASAGLAR MELONIEIKPEN U-100 INSULIN 100 unit/mL (3 mL) pen INJECT 18 UNITS SUBCUTANEOUSLY EVERY MORNING Generic drug: insulin glargine Refills: 3 CIS FREE TEXT MED Refills: 0 DEMEROL ORAL Refills: 0 gabapentin 300 mg Cap Commonly known as: NEURONTIN TAKE 1 CAPSULE ORALLY AT BEDTIME FOR 1 WEEK THEN INCREASE TO 2 CAPSULES THEREAFTER Refills: 5 metFORMIN 500 mg Tab Commonly known as: GLUCOPHAGE TAKE ONE TABLET BY MOUTH TWICE A DAY Refills: 3 ondansetron 4 mg Tab Commonly known as: ZOFRAN TAKE 1 TABLET BY MOUTH EVERY 6 HOURS NEEDED FOR NAUSEA Refills: 0 pantoprazole 40 mg Tbec Commonly known as: PROTONIX TAKE ONE TABLET BY MOUTH DAILY IN THE MORNING Refills: 3 simvastatin 20 mg Tab Commonly known as: ZOCOR TAKE ONE TABLET BY MOUTH EVERY NIGHT AT BEDTIME Refills: 3 STOPPED Medications HYDROcodone-acetaminophen 5-325 mg Tab Commonly known as: NORCO Smoking Status at Discharge: Social History Tobacco Use Smoking Status Former Smoker Instructions for Rehab Providers or PCP: See Below Instructions Given to Patient at Discharge: Patient Instructions Orthopedic Surgery Discharge Instructions Activity level: 1. You are Non-weight bearing on your Bilateral leg. 2. Remember to use the walker or crutches at all times for protection and balance. 3. Remember to keep your Bilateral leg elevated as much as possible to decrease swelling and controlpain. 4. If possible, you should wear DOLORES hose until you are seen in follow-up. These should be removed atleast once per day to inspect your skin. Anticoagulation: Lovenox - You have been discharged on Lovenox injections (40mg daily) for 30 days or until your mobility improves and surgeon instructs you to stop. Diet: You may return to your usual diet, but increase your fluids and fiber intake to keep you hydrated and your bowels soft. To help with wound healing increase your intake of high protein foods and fluids. Driving: None until you are cleared to do so by your Orthopedic surgeon. You should not drive while you are on narcotic pain meds as they can affect your judgment and reaction time. Call your surgeon with any questions/concerns. Medications: 1. The pain medication you are on can cause constipation so increase your intake of fluids and fiberwhile you are on them. The stool softener, Pericolace, that has been prescribed can also be taken tofacilitate a bowel movement. You can also take an faum-iso-gynzjdj medication, Miralax if needed to combat constipation. 2. If you need a renewal on your narcotic pain medication, you need to give the Orthopedic clinic enough time to process your request. This can take up to three days, so plan accordingly. 3. Continue acetaminophen (Tylenol) 1,000mg every 8 hours as needed for pain. This can be effective in controlling pain along with your other medications. After that you can take Tylenol as needed per package insert. Do not take more than 3,000mg of acetaminophen in a 24 hour period. 4. You have been discharged on a short acting narcotic, Hydromorphone. You will be on this medication for a limited period of time only. Taper off this medication as your pain improves and resume your home pain medications as needed. 5. Do not take any NSAIDs including ibuprofen, Motrin or Aleve as these may interfere with healing. Shower/Bath: You may shower BUT use a waterproof dressing (plastic bag taped at the top) to cover the incision/dressing. DO NOT submerge the wound. Remember you MUST to observe your weight bearing status and activity limitations when you shower so use a chair or bench for balance if you are unable to safely stand. A sponge bath may be easier. Wound Care: 1. Suture/staple removal 2 weeks post-op (to be removed at follow up appointment). 2. Change the dressing daily with a dry sterile dressing for the next week. After that you can change the dressing as needed or leave the wound open to air. A dry dressing after this may protect your clothing or decrease wound sensitivity. Cast/Splint Care: Keep the cast or splint in place until your follow-up with Orthopedics. Keep the cast/splint clean and dry. It is easiest to sponge bathe, but if you must bathe, protect the cast/splint with a plastic bag high above the cast or splint and secure with adhesive tape. Do not submerge the cast in water at anytime. If the cast accidently gets wet, call the office immediately to have it replaced. A wet cast can cause severe skin and wound problems. Call your doctor ([phone]) if you develop: 1. Fever greater than 100.5 2. Severe nausea or vomiting 3. Increasing pain that is not controlled by pain medications 4. Increasing redness, swelling, or drainage from incisions 5. Change in sensation Misc: 1. If you are a smoker, quitting is very important to help your fracture heal. You should contact your PCP to assist you with setting up a cessation program. 2. Remember that ICE and elevation are very important to help decrease swelling and control pain. You should use the ICE for 20-30 minutes at a time. 3. To help with bone healing and your overall bone health, your intake of calcium should be at [id number] a day and your vitamin D intake should be at least 800 IU per day. 4. You should meet with your primary care provider in the next month to discuss the possibility thatyou may have osteoporosis. Contact your PCP for an appointment to discuss this as well as possible treatment for this condition. Orthopedic Recommendations for secondary prevention of fragility fractures based on the National Osteoporosis Foundation guidelines (to be discussed with your PCP) 1. Consider Bone mineral density testing (DEXA) to confirm diagnosis of osteoporosis and determine disease severity and monitor response to treatment in appropriate patients after discharge (patients over the age of 75 with multiple osteoporosis risk factors warrant treatment without BMD testing). 2. Do not start any bisphosphonate therapy for at least 6 months after your surgery. FOLLOW-UP APPOINTMENTS: 1. You will have follow-up appointments at [facility] as indicated in Future Appointment and Orders. Youwill have an xray prior to those appointments so please come to Radiology, desk 3T, 1 hour BEFORE your appointment for those x-rays. Future Appointments Date Time Provider Department Center 10/01/2018 10:00 AM [facility] DX ROOM 1 Xray [facility] 10/01/2018 11:00 AM Mary Ellison PA [facility] Ortho 3C [facility] 11/08/2018 1:00 PM Abdirahman Enamorado MD Leb Neuro [facility] If you have questions or concerns: Thursday through Thursday, 8 AM - 5 PM, please call Javad Urban MD, MD's office at . If it is after 5 PM or on the weekend, please call and ask to speak with the Orthopedic resident on-call. General Instructions None Future Appointments and Orders Future Appointments and Orders Future Appointments Provider Department Dept Phone 10/01/2018 10:00 AM [facility] DX ROOM 1 XRay at [place] Arrive at: Channel Supervisor Area 3T [phone] Please go to Channel Supervisor Area 3T ([place] Location). 10/01/2018 11:00 AM Mary Ellison PA Orthopaedics at [place] Arrive at: Channel Supervisor Area 3C [phone] 11/08/2018 1:00 PM Abdirahman Enamorado MD Neurology at [place] Arrive at: Channel Supervisor Area 3C [phone] Future Orders Complete By Expires Durable Medical Equipment Order [EQ148 Custom] As directed Process Instructions: Scheduling Instructions: Comments: Non weight bearing bilateraly Questions: Name/Description of requested item: Drop arm commode Size requested: 20 Vendor Name/Contact information: [employer] Durable Medical Equipment Order [EQ148 Custom] As directed Process Instructions: Scheduling Instructions: Comments: Necessary for slide board transfer to wheelchair - non-weight bearing bilateral lower extremities bilat ORIF bilat foot fractures 09/16/2018 Questions: Name/Description of requested item: [employer] - Slideboard Size requested: 83 kg, 154 cm, Vendor Name/Contact information: Slideboard for transfers Durable Medical Equipment Order [EQ148 Custom] As directed Process Instructions: Scheduling Instructions: Comments: Needs ARABELLA required for discharge Questions: Name/Description of requested item: Slide board Size requested: Standard Vendor Name/Contact information: [employer] Durable Medical Equipment Order [EQ148 Custom] As directed Process Instructions: Scheduling Instructions: Comments: Jenae La [address] [place] [address] [facility] [address] [facility] No relevant phone numbers on file. Diagnosis:Bilateral fractures both feet requiring surgery Non weight barring Patient's: Hgt: 5'1 Wgt: 183 VENDOR: [employer] Ordering: Drop arm commode needed ARABELLA is required for discharge Questions: Name/Description of requested item: Drop arm Commode Size requested: Standard Vendor Name/Contact information: [employer] Referral to Home Health - at DISCHARGE [[id number] CPT(R)] As directed Process Instructions: Scheduling Instructions: Comments: DOCUMENTATION FOR VNA SERVICES (INCLUDING THOSE PATIENTS WITH MEDICARE COVERAGE REQUIRING HOME VNA SERVICES AND/OR HOSPICE SERVICES) PATIENT'S LOCATION: Jenaeluiz La [address] [place] [phone] (home) Cell: No relevant phone numbers on file. Pricing Intern's Name: herself with 's assist In discussion with the attending physician, it is certified that this patient is under their care and that they, or a Nurse Practitioner,Clinical Nurse specialist or Physician Plate Setter who is working directly with them, had a face to face encounter that meets the physician face to face encounter requirements with this patient on 09/17/18 The encounter with the patient was in whole, or in part, for the following medical condition, which is the primary reason for home health care services: Bilat Foot Fx's In discussion with the provider, it is certified that, based on their findings, the following services are medically necessary for home health services. To provide the following care/treatments with the clinical findings supporting the need for servicesas follows: HOME CARE ORDERS: RN ORDERS:Assess pain control,skin integrity, vital signs, neurovascular status,cardiopulmonary status, nutrition, hydration, elimination, meds effectiveness and management; reinforce education re health issues, coping, sleep Anticoagulation: Lovenox 40 SQ daily for 30 days - reinforce teaching if necessary. Keep bilat lower extremity splints/dressings in place until Ortho f/u 10/01. Sutures to be removed byOrtho at f/u. PT ORDERS: Continue rehab for endurance, strength with mobility and transfers. Home safety evaluation. Home exercise program if appropriate. OT: assess and continue rehab for managing ADL's. Eval for PICKER FEEDER: HOME HEALTH CARE AGENCY: [facility]. PHONE: [phone] FAX: [phone] Start of care: 09/21/18 FOR MEDICARE ONLY: (please delete this section if not Medicare) In discussion with the attending physician, it is certified that the clinical findings support that this patient is homebound because absences from home require considerable and taxing effort due to: decreased strength and endurance over all and non-wt bearing bilat LE's requiring use of assistive device(slide board, w/c, and drop arm commode. Please note that any additional orders needs or changes will need to be obtained from this patient'sPCP: LILLY Gaitan [address] [facility] [id number] All VNA agencies which cover the area of patient's residence have been reviewed, either verbally or in writing, and patient/family have chosen the home health care agency noted Questions: Agency name and contact information: [facility] Patient location post discharge: home What services are requested: Registered Nurse Physical Therapy Occupational Therapy Home Health Aide Start date: 09/21/2018 Responsible MD post discharge contact info: Wheelchair [EQ139 Custom] As directed Process Instructions: Scheduling Instructions: Comments: Manual wheelchair with elevating legs for medical necessity includes: A) The patient has a mobility limitation that significantly impairs his/her ability to participate in one or more mobility-related activities of daily living (MRADLs) B) The patient's mobility limitation cannot be sufficiently resolved by the use of an appropriately fitted cane or walker. C) The patient's home provides adequate access between rooms, maneuvering space and surfaces for useof the manual wheelchair that is provided. D) Use of a manual wheelchair will significantly improve the patient's ability to participate in MRADLs and the patient will use it on a regular basis in the home. E) The patient has not expressed an unwillingness to use th manual wheelchair that is provided in the home. F) The patient has sufficient upper extremity function and other physical and mental capabilities needed to safely self-propel the manual wheelchair that is provided in the home during a typical day orthe patient has a caregiver who is available, willing and able to provide assistance with the wheelchair. G) The beneficiary has a caregiver who is available, willing and able to provide assistance with thewheelchair. Questions: Vendor Name/Contact information: [employer] Primary Care Provider: LILLY Gaitan [phone] Discharge References/Attachments None documented in this encounter Discharge Instructions Patient InstructionsBuffy Russell PA - 09/17/2018 6:58 AM EDT Orthopedic Surgery Discharge Instructions Activity level: 1. You are Non-weight bearing on your Bilateral leg. 2. Remember to use the walker or crutches at all times for protection and balance. 3. Remember to keep your Bilateral leg elevated as much as possible to decrease swelling and controlpain. 4. If possible, you should wear DOLORES hose until you are seen in follow-up. These should be removed atleast once per day to inspect your skin. Anticoagulation: Lovenox - You have been discharged on Lovenox injections (40mg daily) for 30 days or until your mobility improves and surgeon instructs you to stop. Diet: You may return to your usual diet, but increase your fluids and fiber intake to keep you hydrated and your bowels soft. To help with wound healing increase your intake of high protein foods and fluids. Driving: None until you are cleared to do so by your Orthopedic surgeon. You should not drive while you are on narcotic pain meds as they can affect your judgment and reaction time. Call your surgeon with any questions/concerns. Medications: 1. The pain medication you are on can cause constipation so increase your intake of fluids and fiberwhile you are on them. The stool softener, Pericolace, that has been prescribed can also be taken tofacilitate a bowel movement. You can also take an [id number] medication, Miralax if needed to combat constipation. 2. If you need a renewal on your narcotic pain medication, you need to give the Orthopedic clinic enough time to process your request. This can take up to three days, so plan accordingly. 3. Continue acetaminophen (Tylenol) 1,000mg every 8 hours as needed for pain. This can be effective in controlling pain along with your other medications. After that you can take Tylenol as needed per package insert. Do not take more than 3,000mg of acetaminophen in a 24 hour period. 4. You have been discharged on a short acting narcotic, Hydromorphone. You will be on this medication for a limited period of time only. Taper off this medication as your pain improves and resume your home pain medications as needed. 5. Do not take any NSAIDs including ibuprofen, Motrin or Aleve as these may interfere with healing. Shower/Bath: You may shower BUT use a waterproof dressing (plastic bag taped at the top) to cover the incision/dressing. DO NOT submerge the wound. Remember you MUST to observe your weight bearing status and activity limitations when you shower so use a chair or bench for balance if you are unable to safely stand. A sponge bath may be easier. Wound Care: 1. Suture/staple removal 2 weeks post-op (to be removed at follow up appointment). 2. Change the dressing daily with a dry sterile dressing for the next week. After that you can change the dressing as needed or leave the wound open to air. A dry dressing after this may protect your clothing or decrease wound sensitivity. Cast/Splint Care: Keep the cast or splint in place until your follow-up with Orthopedics. Keep the cast/splint clean and dry. It is easiest to sponge bathe, but if you must bathe, protect the cast/splint with a plastic bag high above the cast or splint and secure with adhesive tape. Do not submerge the cast in water at anytime. If the cast accidently gets wet, call the office immediately to have it replaced. A wet cast can cause severe skin and wound problems. Call your doctor ([phone]) if you develop: 1. Fever greater than 100.5 2. Severe nausea or vomiting 3. Increasing pain that is not controlled by pain medications 4. Increasing redness, swelling, or drainage from incisions 5. Change in sensation Misc: 1. If you are a smoker, quitting is very important to help your fracture heal. You should contact your PCP to assist you with setting up a cessation program. 2. Remember that ICE and elevation are very important to help decrease swelling and control pain. You should use the ICE for 20-30 minutes at a time. 3. To help with bone healing and your overall bone health, your intake of calcium should be at [id number] a day and your vitamin D intake should be at least 800 IU per day. 4. You should meet with your primary care provider in the next month to discuss the possibility thatyou may have osteoporosis. Contact your PCP for an appointment to discuss this as well as possible treatment for this condition. Orthopedic Recommendations for secondary prevention of fragility fractures based on the National Osteoporosis Foundation guidelines (to be discussed with your PCP) 1. Consider Bone mineral density testing (DEXA) to confirm diagnosis of osteoporosis and determine disease severity and monitor response to treatment in appropriate patients after discharge (patients over the age of 75 with multiple osteoporosis risk factors warrant treatment without BMD testing). 2. Do not start any bisphosphonate therapy for at least 6 months after your surgery. FOLLOW-UP APPOINTMENTS: 1. You will have follow-up appointments at [facility] as indicated in Future Appointment and Orders. Youwill have an xray prior to those appointments so please come to Radiology, desk 3T, 1 hour BEFORE your appointment for those x-rays. Future Appointments Date Time Provider Department Center 10/01/2018 10:00 AM [facility] DX ROOM 1 Xray [facility] Rad Clin 10/01/2018 11:00 AM Mary Ellison PA [facility] Ortho [facility] 11/08/2018 1:00 PM Abdirahman Enamorado MD [facility] Neuro [facility] If you have questions or concerns: Thursday through Thursday, 8 AM - 5 PM, please call Javad Urban MD, MD's office at . If it is after 5 PM or on the weekend, please call and ask to speak with the Orthopedic resident on-call. documented in this encounter Medications at Time of Discharge Medication Sig Dispensed Refills Start Date End Date acetaminophen Take 2 tablets by 30 tablet 1 09/20/2018 (TYLENOL) 500 mg mouth every 8 hours as Tablet needed for Pain. BASAGLAR KWIKPEN U-100 INJECT 18 UNITS 3 08/30/19 19 INSULIN 100 unit/mL (3 SUBCUTANEOUSLY EVERY mL) pen MORNING metFORMIN (GLUCOPHAGE) TAKE ONE TABLET BY 3 06/05 500 mg Tablet MOUTH TWICE A DAY ondansetron (ZOFRAN) 4 TAKE 1 TABLET BY MOUTH 0 0 08/30/2018 mg Tablet EVERY 6 HOURS NEEDED FOR NAUSEA enoxaparin (LOVENOX) Inject 0.4 mLs 26 Syringe [...] (DEMEROL ORAL) documented as of this encounter Progress Notes Tiana Lujan RN - 09/20/2018 3:13 PM EDT Patient discharged to home with VNA services. IV removed, site benign. My assessment remains unchanged from my previous assessment. Patient denies chest pain and shortness of breath. Discussed pain management with patient, pain tolerable. Patient medicated prior to discharge. Patient has all belongings. Patient received discharge summary and prescriptions. These were reviewed. All questions answered.Patient encouraged to call with questions or concerns. Patient discharged to home with family. Discharge Summary was faxed, RN called report to VNA. Ivette Álvarez RN - 09/20/2018 1:10 PM EDT Office of Care Managment (OCM /Caremanger (CM)/ Discharge planning ) Service Ortho Pager # Check daily [facility] is unable to supply the commode and the slide board . This hand sign writer called several places and [facility] . Patent states as long ??she get a 22 inch wheel chair it will fit through the door to her bathroom and she will be able to make the transfer until the commode arrives . This CM placed the order and is having it signed by team to expedite availability of above noted items . Plan: CM will continue to follow for coordination of care and to facilitate discharge planning. Ivette Álvarez RN CM Pager [phone] Ivette Álvarez RN - 09/20/2018 12:52 PM EDT The patient/outreach representative has been provided a list of /DME vendors which serve their preferred geographic area. A letter describing our affiliations was reviewed with them and they were educated abouttheir right to choose where referrals are placed. Patient requests referral to [facility] Expected date of discharge: 09/20/18 Referral routed to the Cnc Manager for matching with agency/vendor and to provide any required information. Ivette Álvarez [facility] Beeper #[phone] Ivette Álvarez RN - 09/20/2018 11:14 AM EDT Office of Care Managment (OCM /Caremanger (CM)/ Discharge planning ) Service Ortho Pager # check daily Patient is medically ready to go . Made call to [facility] to verify delivery of Wheelchair , slide board and drop arm commode for today (family said they can pick the items up on the way home ) Thalia from [facility] is checking with [facility] office to make sure items are available for them. Plan: CM will continue to follow for coordination of care and to facilitate discharge planning. ? Ivette Álvarez RN CM Pager [phone] Ori Santos MD - 09/20/2018 5:39 AM EDT ORTHOPAEDIC SURGERY INPATIENT PROGRESS NOTE Patient Name: Jenae La Age: 53 y.o. Surgery/Issue: ORIF of bilateral foot fractures Attending: Dr. Reed Date of surgery: 09/16/2018 SUBJECTIVE / INTERVAL HISTORY: Mrs. La is doing quite well this morning. She is accompanied by her and is happy to report that she is independent in performing transfers and dressing herself. Her pain is well controlled. Tmax 37.9C overnight; denies fevers, chills, nausea, vomiting, chest pain, or shortness of breath. Unable to be discharged over the weekend due to company unable to deliver DME. Active Hospital Problems Diagnosis ??? S/P ORIF bilateral foot fractures, 09/16/18 (Brianna) Resolved Hospital Problems No resolved problems to display. Active Non-Hospital Problems Diagnosis ??? Hypertension ??? Hyperlipidemia ??? Type 2 diabetes mellitus without complication, with long-term current use of insulin ??? Chronic pain ??? LORRI on CPAP ??? Gastroesophageal reflux ??? Psoriasiform dermatitis MEDICATIONS: ??? cholecalciferol (Vitamin D3) tablet 1,000 Units ??? calcium citrate (CALCITRATE) tablet 950 mg ??? HYDROmorphone (DILAUDID) tablet 2 mg OR HYDROmorphone (DILAUDID) tablet 4 mg OR HYDROmorphone (DILAUDID) tablet 6 mg ??? gabapentin (NEURONTIN) capsule 300 mg ??? lidocaine (LIDODERM) 5 % patch 3 patch AND lidocaine (LIDODERM) patch REMOVAL ??? Dextromethorphan HBr 5 mg/5 mL oral syrup 10 mg ??? enoxaparin (LOVENOX) injection 40 mg ??? Nicotine inhalation system (Nicotrol Inhaler) 1 cartridge ??? polyethylene glycol (MIRALAX) packet 17 g ??? senna-docusate (PERICOLACE) 8.6-50 mg per tablet 2 tablet ??? sodium chloride 0.9% infusion ??? acetaminophen (TYLENOL) tablet 1,000 mg ??? ipratropium-albuterol (DUONEB) 0.5 mg-3 mg(2.5 mg base)/3 mL nebulizer solution 3 mL ??? simvastatin (ZOCOR) tablet 20 mg ??? glucose (GLUTOSE) 40% oral gel OR dextrose 50% intravenous solution 25- 50 mL OR glucagon(human recombinant) injection SolR 1 mg ??? POCT Fingerstick Glucose AND insulin lispro (HumaLOG) VIAL injection 1-4 Units ??? ondansetron (ZOFRAN) injection 4 mg ??? prochlorperazine (COMPAZINE) injection 10 mg ??? sodium chloride 0.9% 1,000 mL (09/16/181999) OBJECTIVE: Temp: [36.5 ??C (97.7 ??F)-37.9 ??C (100.2 ??F)] Heart Rate: [69-86] Resp: [16-20] BP: (121-138)/(60-81) Intake/Output Summary (Last 24 hours) at 09/20/2018 0539 Last data filed at 09/20/2018 0304 Gross per 24 hour Intake 1200 ml Output 1860 ml Net -660 ml BMI: Weight: 83 kg (183 lb) (09/15/18 0924) BMI (Calculated): 34.57 BMI Classification: Obese Body mass index is 34.58 kg/m??. Physical Exam: General: Comfortable appearing female reclined in bed in no acute distress, alert and oriented, answering questions appropriately, pleasant affect. CV: Regular rate and rhythm by peripheral palpation. Resp: Breathing comfortably on room air. RLE: Short leg splint and dressing clean and dry. Sensation to light touch intact in leg/thigh proximal to splint as well as in exposed toes. Able to wiggle toes, motor intact to knee flexion/extension, hip flexion. Brisk capillary refill distally, foot warm/well-perfused LLE: Short leg splint and dressing clean and dry. Sensation to light touch intact in leg/thigh proximal to splint as well as in exposed toes. Able to wiggle toes, motor intact to knee flexion/extension, hip flexion. Brisk capillary refill distally, foot warm/well-perfused Lab Results Component Value Date NA 140 09/19/2018 K 4.0 09/19/2018 CL 104 09/19/2018 CO2 27 09/19/2018 BUN 11 09/19/2018 CREATININE 0.64 (L) 09/19/2018 GLUCOSE 111 09/19/2018 CALCIUM 8.9 09/19/2018 IMAGING: XR Bilateral Feet: Hardware in appropriate position without signs of acute complication ASSESSMENT / PLAN: Jenae La is a 53 y.o. female 4 Days Post-Op from ORIF of bilateral foot fractures. Patient mobilizing well with wheelchair. Pain well controlled. Plan to discharge home with home health per PT recommendations. Discharge likely today, dependent on DME delivery to patinet's home. Activity: NWB BLE. Strict elevation in splints. Closure: Sutures (remove 10-14 days) Dressing: DSD, splints. Drain: None Anticoagulation: Lovenox for 30 days Antibiotics: Empiric Ceftriaxone/Azithromycin for suspected CAP Consults: Medicine, Neuro Dispo: Like home today Follow-up: As scheduled Ori Santos MD 09/20/2018 Future Appointments Date Time Provider Department Center 10/01/2018 10:00 AM [facility] DX ROOM 1 Xray [facility] 10/01/2018 11:00 AM Mary Ellison PA [facility] Ortho 3C [facility] [facility] Associated attestation - Aparna Reed MD - 09/22/2018 6:08 AM EDT Agree with resident note. NWB BLE, slideboard transfers only. Michelle Reed MD Department of Orthopaedics 09/22/18 Alea Cruz, RN - 09/19/2018 12:08 PM EDT 0930a CM spoke with Med Team re pt DC today( [id number]). Pt to dc Thursday aSnket Freeman MD - 09/19/2018 5:51 AM EDT ORTHOPAEDIC SURGERY INPATIENT PROGRESS NOTE Patient Name: Jenae La Age: 53 y.o. Surgery/Issue: ORIF of bilateral foot fractures Attending: Dr. Reed Date of surgery: 09/16/2018 SUBJECTIVE / INTERVAL HISTORY: NAEON. Cleared PT but unable to go home because she is unable to obtain DME. Had BM yesterday. Otherwise well. FOCUSED REVIEW OF SYSTEMS: as above. Active Hospital Problems Diagnosis ??? S/P ORIF bilateral foot fractures, 09/16/18 (Brianna) Resolved Hospital Problems No resolved problems to display. Active Non-Hospital Problems Diagnosis ??? Hypertension ??? Hyperlipidemia ??? Type 2 diabetes mellitus without complication, with long-term current use of insulin ??? Chronic pain ??? LORRI on CPAP ??? Gastroesophageal reflux ??? Psoriasiform dermatitis MEDICATIONS: ??? cholecalciferol (Vitamin D3) tablet 1,000 Units ??? calcium citrate (CALCITRATE) tablet 950 mg ??? HYDROmorphone (DILAUDID) tablet 2 mg OR HYDROmorphone (DILAUDID) tablet 4 mg OR HYDROmorphone (DILAUDID) tablet 6 mg ??? gabapentin (NEURONTIN) capsule 300 mg ??? lidocaine (LIDODERM) 5 % patch 3 patch AND lidocaine (LIDODERM) patch REMOVAL ??? Dextromethorphan HBr 5 mg/5 mL oral syrup 10 mg ??? enoxaparin (LOVENOX) injection 40 mg ??? Nicotine inhalation system (Nicotrol Inhaler) 1 cartridge ??? polyethylene glycol (MIRALAX) packet 17 g ??? senna-docusate (PERICOLACE) 8.6-50 mg per tablet 2 tablet ??? sodium chloride 0.9% infusion ??? acetaminophen (TYLENOL) tablet 1,000 mg ??? ipratropium-albuterol (DUONEB) 0.5 mg-3 mg(2.5 mg base)/3 mL nebulizer solution 3 mL ??? simvastatin (ZOCOR) tablet 20 mg ??? glucose (GLUTOSE) 40% oral gel OR dextrose 50% intravenous solution 25- 50 mL OR glucagon(human recombinant) injection SolR 1 mg ??? POCT Fingerstick Glucose AND insulin lispro (HumaLOG) VIAL injection 1-4 Units ??? ondansetron (ZOFRAN) injection 4 mg ??? prochlorperazine (COMPAZINE) injection 10 mg ??? sodium chloride 0.9% 1,000 mL (09/16/181999) OBJECTIVE: Temp: [36.3 ??C (97.3 ??F)-37.7 ??C (99.9 ??F)] Heart Rate: [91] Resp: [15-18] BP: (124-146)/(75-94) Intake/Output Summary (Last 24 hours) at 09/19/2018 0551 Last data filed at 09/19/2018 0115 Gross per 24 hour Intake 1130 ml Output 2300 ml Net -1170 ml BMI: Weight: 83 kg (183 lb) (09/15/18 0924) BMI (Calculated): 34.57 BMI Classification: Obese Body mass index is 34.58 kg/m??. PE: General: awake/alert, responds to questions CV: RRR assessed peripherally Resp: Breathing comfortably on RA RLE: Short leg splint and dressing c/d/i Sensory intact to light touch proximal leg/thigh to splint, intact to exposed toes Able to wiggle toes, intact to knee and hip flexion/extension Brisk capillary refill distally, foot warm/well-perfused LLE: Short leg splint and dressing c/d/i Sensory intact to light touch proximal leg/thigh to splint, intact to exposed toes Able to wiggle her toes, intact to knee and hip flexion/extension Brisk capillary refill distally, foot warm/well-perfused Lab Results Component Value Date NA 140 09/19/2018 K 4.0 09/19/2018 CL 104 09/19/2018 CO2 27 09/19/2018 BUN 11 09/19/2018 CREATININE 0.64 (L) 09/19/2018 GLUCOSE 111 09/19/2018 CALCIUM 8.9 09/19/2018 Lab Results Component Value Date WBC 11.2 (H) 09/15/2018 HGB 9.6 (L) 09/15/2018 HCT 29.5 (L) 09/15/2018 MCV 96.7 (H) 09/15/2018 PLATELET 244 09/15/2018 Lab Results Component Value Date INR 1.0 09/15/2018 IMAGING: XR Bilateral feet: hardware in appropriate position without signs of acute complication ASSESSMENT / PLAN: Jenae La is a 53 y.o. female 3 Days Post-Op s/p ORIF of bilateral foot fractures. Pain under control, PT recommending discharge to home with home health. Likely d/c after obtaining DME tomorrow. Activity: NWB BLE. Strict elevation in splints. Closure: Sutures (remove 10-14 days) Dressing: DSD, splints Drain: none Anticoagulation: lovenox for 30 days Antibiotics: Empiric Ceftriaxone/Azithromycin for suspected CAP Consults: Medicine, Neuro Dispo: home tomorrow Follow-up: scheduled Sanket Freeman MD 09/19/2018 Future Appointments Date Time Provider Department Center 10/01/2018 10:00 AM [facility] DX ROOM 1 [facility] 10/01/2018 11:00 AM Mary Ellison PA [facility] Associated attestation - Aparna Reed MD - 09/22/2018 6:08 AM EDT Agree with resident note. NWB BLE, slideboard transfers only. Michelle Reed MD Department of Orthopaedics 09/22/18 Anusha Olsen RCP - 09/18/2018 10:56 PM EDT Patient refused NIV tonight. This is the 5th night in a row she has refused her NIV for LORRI. Machinewas removed from her room at this time. Danielle Gastelum MD - 09/18/2018 6:02 AM EDT ORTHOPAEDIC SURGERY INPATIENT PROGRESS NOTE Patient Name: Jenae La Age: 53 y.o. Surgery/Issue: ORIF of bilateral foot fractures Attending: Dr. Reed Date of surgery: 09/16/2018 SUBJECTIVE / INTERVAL HISTORY: No acute events, afebrile. Was able to complete slide board transfers with PT yesterday. Pain under better control over past 24 hours. Urinating on own volition, tolerating PO intake. FOCUSED REVIEW OF SYSTEMS: as above. Active Hospital Problems Diagnosis ??? S/P ORIF bilateral foot fractures, 09/16/18 (Brianna) Resolved Hospital Problems No resolved problems to display. Active Non-Hospital Problems Diagnosis ??? Hypertension ??? Hyperlipidemia ??? Type 2 diabetes mellitus without complication, with long-term current use of insulin ??? Chronic pain ??? LORRI on CPAP ??? Gastroesophageal reflux ??? Psoriasiform dermatitis MEDICATIONS: ??? cholecalciferol (Vitamin D3) tablet 1,000 Units ??? calcium citrate (CALCITRATE) tablet 950 mg ??? HYDROmorphone (DILAUDID) tablet 2 mg OR HYDROmorphone (DILAUDID) tablet 4 mg OR HYDROmorphone (DILAUDID) tablet 6 mg ??? gabapentin (NEURONTIN) capsule 300 mg ??? lidocaine (LIDODERM) 5 % patch 3 patch AND lidocaine (LIDODERM) patch REMOVAL ??? Dextromethorphan HBr 5 mg/5 mL oral syrup 10 mg ??? enoxaparin (LOVENOX) injection 40 mg ??? Nicotine inhalation system (Nicotrol Inhaler) 1 cartridge ??? polyethylene glycol (MIRALAX) packet 17 g ??? senna-docusate (PERICOLACE) 8.6-50 mg per tablet 2 tablet ??? sodium chloride 0.9% infusion ??? acetaminophen (TYLENOL) tablet 1,000 mg ??? ipratropium-albuterol (DUONEB) 0.5 mg-3 mg(2.5 mg base)/3 mL nebulizer solution 3 mL ??? simvastatin (ZOCOR) tablet 20 mg ??? glucose (GLUTOSE) 40% oral gel OR dextrose 50% intravenous solution 25- 50 mL OR glucagon(human recombinant) injection SolR 1 mg ??? POCT Fingerstick Glucose AND insulin lispro (HumaLOG) VIAL injection 1-4 Units ??? ondansetron (ZOFRAN) injection 4 mg ??? prochlorperazine (COMPAZINE) injection 10 mg ??? sodium chloride 0.9% 1,000 mL (09/16/181999) OBJECTIVE: Temp: [37.1 ??C (98.8 ??F)-37.5 ??C (99.5 ??F)] Heart Rate: [74-86] Resp: [16-17] BP: (132-154)/(73-89) Intake/Output Summary (Last 24 hours) at 09/18/2018 0602 Last data filed at 09/18/2018 0533 Gross per 24 hour Intake 800 ml Output 4850 ml Net -4050 ml BMI: Weight: 83 kg (183 lb) (09/15/18923) BMI (Calculated): 34.57 BMI Classification: Obese Body mass index is 34.58 kg/m??. PE: General: awake/alert, responds to questions CV: RRR assessed peripherally Resp: Breathing comfortably on RA RLE: Short leg splint and dressing c/d/i Sensory intact to light touch proximal leg/thigh to splint, intact to exposed toes Motor able to wiggle toes, intact to knee and hip flexion/extension Brisk capillary refill distally, foot warm/well-perfused LLE: Short leg splint and dressing c/d/i Sensory intact to light touch proximal leg/thigh to splint, intact to exposed toes Motor absent to toes (likely secondary to block), intact to knee and hip flexion/extension Brisk capillary refill distally, foot warm/well-perfused Lab Results Component Value Date NA 143 09/18/2018 K 3.1 (L) 09/18/2018 CL 106 09/18/2018 CO2 26 09/18/2018 BUN 7 (L) 09/18/2018 CREATININE 0.62 (L) 09/18/2018 GLUCOSE 106 09/18/2018 CALCIUM 8.5 09/18/2018 Lab Results Component Value Date WBC 11.2 (H) 09/15/2018 HGB 9.6 (L) 09/15/2018 HCT 29.5 (L) 09/15/2018 MCV 96.7 (H) 09/15/2018 PLATELET 244 09/15/2018 Lab Results Component Value Date INR 1.0 09/15/2018 IMAGING: XR Bilateral feet: hardware in appropriate position without signs of acute complication ASSESSMENT / PLAN: Jenae La is a 53 y.o. female 2 Days Post-Op s/p ORIF of bilateral foot fractures. Pain under much better control in the past 24 hours. Was able to complete slide board transfers without issue with PT yesterday. PT recommending discharge to home with home health. Activity: NWB BLE. Strict elevation in splints. Closure: Sutures (remove 10-14 days) Dressing: DSD, splints Drain: none Anticoagulation: lovenox for 30 days Antibiotics: Empiric Ceftriaxone/Azithromycin for suspected CAP Consults: Medicine, Neuro Dispo: rehab Follow-up: TBD. DANIELLE GASTELUM MD 09/18/2018 No future appointments. Associated attestation - Aparna Reed MD - 09/22/2018 6:08 AM EDT Agree with resident note. NWB BLE, slideboard transfers only. Michelle Reed MD Department of Orthopaedics 09/22/18 Rayo Tang RCP - 09/18/2018 2:33 AM EDT Pt refused nocturnal NIV for LORRI Plan: Continue to offer NIV for LORRI Abdirahman Enamorado MD - 09/17/2018 11:26 AM EDT Neurology Consults Progress Note - 09/17/18 Patient name: Jenae La Date of : 1965 PCP: LILLY Gaitan CC: Does patient have seizures or require further workup from a seizure perspective. PATIENT ID: Jenae La is a 53 y.o. female with past medical history significant for type 2 diabetes, fibromyalgia, chronic opiate use, and obstructive sleep apnea (on CPAP at home) who presents as a transferto the orthopedic service from [facility] for bilateral complex foot fractures. INTERVAL HISTORY: Patient refused Keppra last night because she noted it made her nauseous Pain adequately controlled overnight per chart review Physical Exam: Vitals: Temp: [36.2 ??C (97.2 ??F)-37.4 ??C (99.3 ??F)] Heart Rate: [60-69] Resp: [15-19] BP: (119-149)/(62-78) SpO2: [92 %-96 %] Heart Rate from SpO2: [66 bpm-78 bpm] Gen: Patient of apparent stated age, well nourished, well developed, awake, alert, NAD HEENT: Supple, no meningismus, no carotid bruit, no occipital tenderness CV: + S1, S2, RRR, no murmur Resp: CTA B/L with good respiratory effort Abd: +normoactive bowel sounds, soft, nontender, nondistended Ext: bilateral feet wrapped in bandage Neuro Exam: MS: AAOx4, clear language, no dysarthria, follows commands CN: PERRL, EOMI, visual ford full Facial sensation intact, no facial asymmetry Hearing intact to voice Palate elevates symmetrically, tongue protrudes midline SCM and trap strength intact Motor: Normal bulk and tone. UE: 5/5 R, 5/5 L Arm abduction at shoulder 5/5 R, 5/5 L Elbow extension 5/5 R, 5/5 L Elbow flexion 5/5 R, 5/5 L Radio Interference Trouble Shooter LE: Deferred due to her pain Sensation: Intact to light touch throughout, even at her toes Reflexes: DTRs deferred Toes - R down, L down Coordination: Finger to nose intact, no dysmetria Rapid alternating movements & finger tapping smooth and symmetric Gait: not assessed due to recent surgery Labs: Recent Results (from the past 24 hour(s)) POCT Glucose Result Value Ref Range POC Glucose 126 65 - 199 mg/dL Hemoglobin A1c Result Value Ref Range Hemoglobin A1C 5.5 4.3 - 5.6 % Est Avg Gluc 111 mg/dL Basic Metabolic Panel (non-fasting) Result Value Ref Range Glucose Lvl 106 65 - 199 mg/dL BUN 13 8 - 18 mg/dL Creatinine 0.62 (L) 0.70 - 1.20 mg/dL Sodium 147 (H) 135 - 145 mmol/L Potassium 3.2 (L) 3.5 - 5.0 mmol/L Chloride 112 (H) 98 - 107 mmol/L CO2 22 22 - 31 mmol/L Anion Gap 13 5 - 15 mmol/L Calcium 8.1 (L) 8.5 - 10.5 mg/dL eGFR 104 >=60 mL/min/1.73 m?? eGFR 121 >=60 mL/min/1.73 m?? POCT Glucose Result Value Ref Range POC Glucose 106 65 - 199 mg/dL POCT Glucose Result Value Ref Range POC Glucose 114 65 - 199 mg/dL POCT Glucose Result Value Ref Range POC Glucose 123 65 - 199 mg/dL POCT Glucose Result Value Ref Range POC Glucose 126 65 - 199 mg/dL POCT Glucose Result Value Ref Range POC Glucose 136 65 - 199 mg/dL Basic Metabolic Panel (non-fasting) Result Value Ref Range Glucose Lvl 121 65 - 199 mg/dL BUN 9 8 - 18 mg/dL Creatinine 0.59 (L) 0.70 - 1.20 mg/dL Sodium 144 135 - 145 mmol/L Potassium 2.9 (CRIT) 3.5 - 5.0 mmol/L Chloride 108 (H) 98 - 107 mmol/L CO2 25 22 - 31 mmol/L Anion Gap 11 5 - 15 mmol/L Calcium 8.0 (L) 8.5 - 10.5 mg/dL eGFR 106 >=60 mL/min/1.73 m?? eGFR 123 >=60 mL/min/1.73 m?? Diagnostic Tests and Imaging: MRI BRAIN FROM OSH REVIEWED Assessment: Jenae La is a 53 y.o. female with past medical history significant for type 2 diabetes, fibromyalgia, chronic opiate use, and obstructive sleep apnea (on CPAP at home) who presents as a transferto the orthopedic service from [facility] for bilateral complex foot fractures. Patient had routine EEG completed today that did not show any epileptiform activity. I think at thistime it is still difficult to say for certain that she had seizures during her presentation. The notes from the outside hospital note some twitching but this has not been seen during her hospitalization with us. It is possible that the Keppra was masking/supressing this. She does not believe she had seizures and was not tolerating the Keppra well while she was on it. I think it is safe to discharge her without the Keppra and with follow up to neurology in 4-6 weeks to see if there are any repeat episodes. If there are any repeat episodes, we can consider a prolonged ambulatory EEG at that time and d iscuss other anti-seizure medications. She is safe to discharge from our point of view. We will sign off at this time. Please feel free to page us at the number listed below if you have any concerns about our recommendations or if you have a new neurological question regarding the patient's care. Plan: -STOP Keppra -Follow up with neurology in 4-6 weeks (we will set up this appointment) Abdirahman Enamorado MD Neurology Resident - PGY-3 General Neurology Consults Team Pager #[phone] 09/17/18 Associated attestation - Jose Swan MD - 09/17/2018 4:41 PM EDT I have seen and examined Jenae La with the neurology team on 09/17/2018 and agree with the assessment and plan as below. Face twitching. 53 Y F with history of DJD spine, DM, fibromyalgia being seen by Neurologist at [facility] Episodes of left sided facial twitching Stopped taking gabapentin recently due to side effects. Low suspicion for these being seizures. AEDs not needed at this time Recommended lower doses of gabapentin which she doesn't wish to take. Outpatient neurology followup Jose Swan MD Department of Neurology [facility] Sanket Freeman MD - 09/17/2018 6:04 AM EDT ORTHOPAEDIC SURGERY INPATIENT PROGRESS NOTE Patient Name: Jenae La Age: 53 y.o. Surgery/Issue: ORIF of bilateral foot fractures Attending: Dr. Reed Date of surgery: 09/16/2018 SUBJECTIVE / INTERVAL HISTORY: Ms. La is having a tough time with pain control this morning. She feels that her right foot hurts more than the left. Other than pain, she has no complaints. She is tolerating PO, has not mobilized. FOCUSED REVIEW OF SYSTEMS: as above. Active Hospital Problems Diagnosis ??? S/P ORIF bilateral foot fractures, 09/16/18 (Gitajn) ??? Hypertension ??? Hyperlipidemia ??? Type 2 diabetes mellitus without complication, with long-term current use of insulin ??? Chronic pain ??? LORRI on CPAP ??? Gastroesophageal reflux Resolved Hospital Problems No resolved problems to display. Active Non-Hospital Problems Diagnosis ??? Psoriasiform dermatitis MEDICATIONS: ??? HYDROmorphone (DILAUDID) injection 0.4 mg ??? oxyCODONE (ROXICODONE) immediate release tablet 5 mg OR oxyCODONE (ROXICODONE) immediate release tablet 10 mg OR oxyCODONE (ROXICODONE) immediate release tablet 15 mg ??? enoxaparin (LOVENOX) injection 40 mg ??? Nicotine inhalation system (Nicotrol Inhaler) 1 cartridge ??? polyethylene glycol (MIRALAX) packet 17 g ??? senna-docusate (PERICOLACE) 8.6-50 mg per tablet 2 tablet ??? sodium chloride 0.9% infusion ??? acetaminophen (TYLENOL) tablet 1,000 mg ??? ipratropium-albuterol (DUONEB) 0.5 mg-3 mg(2.5 mg base)/3 mL nebulizer solution 3 mL ??? levETIRAcetam (KEPPRA) 1,000 mg in sodium chloride (ISO-OSM) 100 mL ??? simvastatin (ZOCOR) tablet 20 mg ??? glucose (GLUTOSE) 40% oral gel OR dextrose 50% intravenous solution 25- 50 mL OR glucagon(human recombinant) injection SolR 1 mg ??? POCT Fingerstick Glucose AND insulin lispro (HumaLOG) VIAL injection 1-4 Units ??? ondansetron (ZOFRAN) injection 4 mg ??? prochlorperazine (COMPAZINE) injection 10 mg ??? sodium chloride 0.9% 1,000 mL (09/16/181999) OBJECTIVE: Temp: [36.2 ??C (97.2 ??F)-37.4 ??C (99.3 ??F)] Heart Rate: [60-73] Resp: [15-19] BP: (110-167)/(62-109) Intake/Output Summary (Last 24 hours) at 09/17/2018 0604 Last data filed at 09/17/2018 0334 Gross per 24 hour Intake 2481 ml Output 3075 ml Net -594 ml BMI: Weight: 83 kg (183 lb) (09/15/18 0924) BMI (Calculated): 34.57 BMI Classification: Obese Body mass index is 34.58 kg/m??. PE: General: awake/alert, responds to questions CV: RRR assessed peripherally Resp: Breathing comfortably on RA RLE: Short leg splint and dressing c/d/i Sensory intact to light touch proximal leg/thigh to splint, intact to exposed toes Motor able to wiggle toes, intact to knee and hip flexion/extension Brisk capillary refill distally, foot warm/well-perfused LLE: Short leg splint and dressing c/d/i Sensory intact to light touch proximal leg/thigh to splint, intact to exposed toes Motor absent to toes (likely secondary to block), intact to knee and hip flexion/extension Brisk capillary refill distally, foot warm/well-perfused Lab Results Component Value Date NA 147 (H) 09/16/2018 K 3.2 (L) 09/16/2018 CL 112 (H) 09/16/2018 CO2 22 09/16/2018 BUN 13 09/16/2018 CREATININE 0.62 (L) 09/16/2018 GLUCOSE 106 09/16/2018 CALCIUM 8.1 (L) 09/16/2018 Lab Results Component Value Date WBC 11.2 (H) 09/15/2018 HGB 9.6 (L) 09/15/2018 HCT 29.5 (L) 09/15/2018 MCV 96.7 (H) 09/15/2018 PLATELET 244 09/15/2018 Lab Results Component Value Date INR 1.0 09/15/2018 IMAGING: XR Bilateral feet: hardware in appropriate position without signs of acute complication ASSESSMENT / PLAN: Jenae La is a 53 y.o. female 1 Day Post-Op s/p ORIF of bilateral foot fractures. Progressing well post op though dealing with pain control post-op may be challenging. Activity: NWB BLE. Strict elevation in splints. Closure: Sutures (remove 10-14 days) Dressing: DSD, splints Drain: none Anticoagulation: lovenox for 30 days Antibiotics: Empiric Ceftriaxone/Azithromycin for suspected CAP Consults: Medicine, Neuro Dispo: rehab Follow-up: TBD. Sanket rFeeman MD 09/17/2018 No future appointments. Associated attestation - Aparna Reed MD - 09/17/2018 9:28 AM EDT Patient seen and examined. Agree with resident note. NWB BLE, slideboard transfers only. Will need inpatient rehab. Michelle Reed MD Department of Orthopaedics 09/17/18 Davin Ann, ALVINO - 09/16/2018 11:22 PM EDT Pt refused NIV this evening. Chad Campo MD - 09/16/2018 4:48 PM EDT ORTHOPAEDIC SURGERY INPATIENT PROGRESS NOTE Patient Name: Jenae La Age: 53 y.o. Surgery/Issue: ORIF of bilateral foot fractures Attending: Dr. Reed Date of surgery: 09/16/2018 SUBJECTIVE / INTERVAL HISTORY: Ms. aL is doing well post op. Patient offers no complaints. Pain well controlled, denies N/V, SOB, chest pain. FOCUSED REVIEW OF SYSTEMS: as above. Active Hospital Problems Diagnosis ??? S/P ORIF bilateral foot fractures, 09/16/18 (Brianna) ??? Hypertension ??? Hyperlipidemia ??? Type 2 diabetes mellitus without complication, with long-term current use of insulin ??? Chronic pain ??? LORRI on CPAP ??? Gastroesophageal reflux Resolved Hospital Problems No resolved problems to display. Active Non-Hospital Problems Diagnosis ??? Psoriasiform dermatitis MEDICATIONS: ??? enoxaparin (LOVENOX) injection 40 mg ??? Nicotine inhalation system (Nicotrol Inhaler) 1 cartridge ??? polyethylene glycol (MIRALAX) packet 17 g ??? senna-docusate (PERICOLACE) 8.6-50 mg per tablet 2 tablet ??? sodium chloride 0.9% infusion ??? oxyCODONE (ROXICODONE) immediate release tablet 5-10 mg ??? acetaminophen (TYLENOL) tablet 1,000 mg ??? ipratropium-albuterol (DUONEB) 0.5 mg-3 mg(2.5 mg base)/3 mL nebulizer solution 3 mL ??? levETIRAcetam (KEPPRA) 1,000 mg in sodium chloride (ISO-OSM) 100 mL ??? cefTRIAXone (ROCEPHIN) 1 g vial attach to sodium chloride 0.9% 50 mL Mini- Bag Plus ??? azithromycin (ZITHROMAX) 500 mg in sodium chloride 0.9% 255 mL ??? simvastatin (ZOCOR) tablet 20 mg ??? glucose (GLUTOSE) 40% oral gel OR dextrose 50% intravenous solution 25- 50 mL OR glucagon(human recombinant) injection SolR 1 mg ??? POCT Fingerstick Glucose AND insulin lispro (HumaLOG) VIAL injection 1-4 Units ??? ondansetron (ZOFRAN) injection 4 mg ??? prochlorperazine (COMPAZINE) injection 10 mg ??? sodium chloride 0.9% 1,000 mL (09/15/18 1410) OBJECTIVE: Temp: [36.2 ??C (97.2 ??F)-37.2 ??C (99 ??F)] Heart Rate: [60-83] Resp: [15-19] BP: (110-167)/(62-109) Intake/Output Summary (Last 24 hours) at 09/16/2018 1649 Last data filed at 09/16/2018 1339 Gross per 24 hour Intake 3849 ml Output 1150 ml Net 2699 ml BMI: Weight: 83 kg (183 lb) (09/15/18 0924) BMI (Calculated): 34.57 BMI Classification: Obese Body mass index is 34.58 kg/m??. PE: General: awake/alert, responds to questions CV: RRR assessed peripherally Resp: Breathing comfortably on RA RLE: Short leg splint and dressing c/d/i Sensory intact to light touch proximal leg/thigh to splint, intact to exposed toes Motor able to wiggle toes, intact to knee and hip flexion/extension Brisk capillary refill distally, foot warm/well-perfused LLE: Short leg splint and dressing c/d/i Sensory intact to light touch proximal leg/thigh to splint, intact to exposed toes Motor absent to toes (likely secondary to block), intact to knee and hip flexion/extension Brisk capillary refill distally, foot warm/well-perfused Lab Results Component Value Date NA 147 (H) 09/16/2018 K 3.2 (L) 09/16/2018 CL 112 (H) 09/16/2018 CO2 22 09/16/2018 BUN 13 09/16/2018 CREATININE 0.62 (L) 09/16/2018 GLUCOSE 106 09/16/2018 CALCIUM 8.1 (L) 09/16/2018 Lab Results Component Value Date WBC 11.2 (H) 09/15/2018 HGB 9.6 (L) 09/15/2018 HCT 29.5 (L) 09/15/2018 MCV 96.7 (H) 09/15/2018 PLATELET 244 09/15/2018 Lab Results Component Value Date INR 1.0 09/15/2018 IMAGING: XR Bilateral feet: hardware in appropriate position without signs of acute complication ASSESSMENT / PLAN: Jenae La is a 53 y.o. female Day of Surgery s/p ORIF of bilateral foot fractures. Progressing well post op. Activity: NWB BLE. Strict elevation in splints. Closure: Sutures (remove 10-14 days) Dressing: DSD, splints Drain: none Anticoagulation: lovenox for 30 days Antibiotics: Empiric Ceftriaxone/Azithromycin for suspected CAP Consults: Medicine, Neuro Dispo: rehab Follow-up: TBD. Chad Campo MD 09/16/2018 No future appointments. Associated attestation - Aparna Reed MD - 09/17/2018 6:13 AM EDT Patient seen and examined. Agree with resident note. NWB BLE, slideboard transfers only. Dispo planning, will need rehab Michelle Reed MD Department of Orthopaedics 09/17/18 Aruna Calvo RN - 09/16/2018 3:21 PM EDT Pt arrived to floor from PACU after ORIF bilateral feet. Pt alert and oriented x4. Pt reports pain 3/10. Pt denies any chest pain, shortness of breath, dizziness or nausea. Refer to doc flow sheets forfull assessment. Les in room at bedside. Patient oriented to room with call valderrama within reach. Will continue to monitor. Lucina Escalante RN - 09/16/2018 10:57 AM EDT Images from the original note were not included. Patient Name: Jenae La Patient Age: 53 y.o. Birthdate: 1965 Admit date: 09/14/2018 Attending Physician: Javad Urban MD .. Skin: Aries Lyon MD - 09/16/2018 8:31 AM EDT Internal Medicine Consult Note (#[id number]) Progress Note Patient info: Name: Jenae La : 1965 PCP: LILLY Gaitan PCP phone number: [phone] Date of Admission: 09/14/2018 ( Hospital Day 2 days ) Responsible Attending:Javad Urban MD Active Hospital Problems Diagnosis ??? Hypertension ??? Hyperlipidemia ??? Type 2 diabetes mellitus without complication, with long-term current use of insulin ??? Chronic pain ??? LORRI on CPAP ??? Gastroesophageal reflux ??? Fracture of unspecified tarsal bone(s) of unspecified foot, initial encounter for closed fracture Resolved Hospital Problems No resolved problems to display. Active Non-Hospital Problems Diagnosis ??? Psoriasiform dermatitis ID: Jenae La is a 53 y.o. female w/ PMH of HTN, HLD, Type II DM, LORRI on CPAP, fibromyalgia with chronic opioid use, and GERD who [facility] complex foot fractures s/p trauma (dropping firewood on her feet) on the evening of 09/11/18 24 Hour Events/Subjective: -stable SpO2 on RA overnight, HD stable, afebrile -Pt reports improved cough, non-productive, and no SOB -Has not required nebs -No new studies -Planned for OR today Objective: Vitals Last value Range last 24 hrs Temperature Temp: 37.2 ??C (99 ??F) Temp: [37.1 ??C (98.8 ??F)-37.4 ??C (99.3 ??F)] Heart Rate Heart Rate: 83 Heart Rate: [74-83] Blood Pressure BP: 148/82 BP: (128-148)/(67-82) Art Line BP BP (Arterial Line): -- MAP (NBP): [89 mmHg-104 mmHg] Respiratory Rate Resp: 18 Resp: [16-18] SpO2 SpO2: 94 % SpO2: [94 %-97 %] Oxygen Delivery Oxygen Therapy O2 Device: None (Room air) Intake/Output Summary (Last 24 hours) at 09/16/2018 0832 Last data filed at 09/16/2018 0733 Gross per 24 hour Intake 3589 ml Output 800 ml Net 2789 ml Patient Vitals for the past 168 hrs: Weight 09/15/18 0924 83 kg (183 lb) Admit wt: 83.01 kg Physical Exam: Gen: Pleasant, appropriate, NAD. HEENT: oropharynx nonerythematous. No exudates. Uvula midline and palate rises symmetrically. CV: RRR. Normal S1 and S2. 2/6 systolic murmur.. Pulm: Globally diminished aeration, no wheezing/rales/rhonchi, nl WOB. Abd: hypoactive bowel sounds. Soft, nondistended, nontender. Ext: b/l lower extremities in soft wraps, 2+ DP pulses bilaterally Neuro: alert and appropriate. Non-focal. Grossly intact. Psych: cooperative. Lines/Tubes/Drains Peripheral IV Line - Single Lumen 09/15/18 2256 basilic vein (medial side of arm), left 1 in length;22 gauge (Active) Indication/Daily Review of Necessity fluid therapy continuous;medication therapy intermittent 09/15/2018 11:00 PM Site Preparation/Maintenance site cleansed: chlorhexidine solution;site cleansed: 70% alcohol;dressing: dry and intact;dressing: transparent semipermeable applied 09/15/2018 10:57 PM Securement catheter stabilization device, secured with 09/15/2018 11:00 PM Patency/Maintenance flushed without difficulty;infusing 09/15/2018 11:00 PM Phlebitis 0-->no symptoms 09/16/2018 5:00 AM Infiltration 0-->no symptoms 09/16/2018 5:00 AM Site Signs/Symptoms no drainage;no streak formation;no palpable cord;no pain;no warmth;no redness;noswelling 09/15/2018 10:57 PM Number of days: 0 Medications: ??? [Jul] aspirin 81 mg Oral BID ### ??? [Jul] polyethylene glycol 17 g Oral BID ### ??? [Jul] senna-docusate 2 tablet Oral BID ### ??? [Jul] acetaminophen 1,000 mg Oral Q8H [facility] ### ??? [Jul] levETIRAcetam 1 g Intravenous 2 times per day ### ??? [Jul] cefTRIAXone 1 g Intravenous Q24H ### ??? [Jul] azithromycin 500 mg Intravenous Q24H ### ??? [Jul] simvastatin 20 mg Oral QPM ### ??? [Jul] insulin lispro 1-4 Units Subcutaneous Q4H [facility] ### [Jul] Medication Non-Formulary Request, [Jul] oxyCODONE, [Jul] ipratropium-albuterol,[Jul] Glucose 40% oral gel OR [Jul] dextrose OR [Jul] glucagon (human recombinant), [Jul] ondansetron, [Jul] prochlorperazine ??? [Jul] sodium chloride 0.9% 1,000 mL (09/15/18 1410) Anti-Infectives Dose Route Start Date Notes Labs: CBC: Recent Labs 09/15/18 0344 WBC 11.2* HGB 9.6* HCT 29.5* PLATELET 244 NEUTROABS 7.24* Chemistry: Recent Labs 09/15/18 0344 NA 142 K 3.6 CL 113* CO2 20* BUN 18 CREATININE 0.74 GLUCOSE 135 ANIONGAP 9 Recent Labs 09/15/18 0344 CALCIUM 7.9* LFT's: No results for input(s): BILITOT, BILIDIR, ALBUMIN, ALKPHOS, ALT, AST in the last 7068 hours. Coags: Recent Labs 09/15/18 0344 PT 12.0 INR 1.0 Cardiac enzymes: No results for input(s): TROPONINT, CK, PROBNP in the last 7068 hours. Endocrine: No results for input(s): TSH, CORTISOL in the last 7068 hours. Invalid input(s): [id number] Heme: No results for input(s): LDH, HAPTOGLOBIN, URICACID in the last 168 hours. ABG: ABG (Arterial Blood Gas) No results found for: PHART, PO2ART, ZMA9IQX, HIG7TBX Microbiology: Site Date and Time Obtained Result Notes Pertinent radiology/diagnostic studies: CT bilateral lower extremities (09/12/18): 09/12/18 CT of Bilateral Feet Right foot: 1.?Displaced intra-articular fracture of the proximal phalanx of the great toe 2. ??Comminuted intra-articular fractures of the proximal phalanx of the first and second toes 3. ??Dislocation of the first TMT joint 4.??dorsal subluxation of the second TMT joint 5. ??Lateral subluxation of the second through fifth TMT joints 6.?Fracture of the lateral cuboid 7.?Minimally displaced Motley A??fracture of the distal fibula 8.?Second and third base of the metatarsal fractures 9.?Comminuted fractures of the medial and intermediate cuneiforms ?? Left foot:?? 1.?Displaced fractures of the second and third metatarsal necks 2. ??Comminuted displaced fracture of the base of the fourth metatarsal 3.?Fifth distal phalanx fracture 4.??Lateral cuboid fracture 5.??Lateral cuneiform fracture Second Read of CT bilateral lower extremities (09/12/18): 1. Lisfranc fracture dislocation at multiple locations. 2. ??Additional fractures of the 1 and 2 PP and 1 metatarsal heads. 3. ??Motley A fracture of the lateral malleolus 4. ??Nondisplaced intra-articular fracture of the anterior tibia/malleolus. ASSESSMENT/PLAN: Jenae La is a 53 y.o woman with HTN, HLD, Type II DM, LORRI on CPAP, fibromyalgia with chronic opioid use, and GERD who was admitted to the Orthopedic Surgery Service as a transfer from [facility] for definitive operative management of bilateral complex foot fractures s/p trauma on the evening of 09/11/18. Medicine was consulted for CAP management. The patient is also suffering from community acquired pneumonia without a confirmed diagnosis of COPD (no known pulmonary function tests within the chart) for which we will recommend completing a total 5 day course of antibiotics (to complete today) with discontinuation of her stress dose steroids (stopped yesterday). She has no O2 requirement, no SOB, reports improved cough which is non-productive. The patient has no neurologic deficits and it is unclear if she demonstrated seizure-like activity during her presentation at [facility], thus would recommend consulting Neurology to determine the need for an EEG to rule out sub-clinical seizure and determine the need to continue keppra. The patient's revised cardiac risk index is a Class I risk (0 points) with a 3.9% 30 day risk of , [place], or cardiac arrest. No further cardiac work up is recommended prior to surgical intervention. The patient's ACS NSQIP Surgical Risk Calculator demonstrates the patient has a 7.9% (below average)risk of serious complication, a 9.7% (below average) risk of any complication, an 0.2% (below average) of a cardiac complication, and an 0.1% (below average) risk of . # Bilateral complex foot fractures 2/2 trauma - S/p XR of foot - S/p CT lower extremities - S/p second read of CT lower extremity - Surgical intervention per Orthopedic Surgery Team - potential OR for ORIF of foot fractures today. - Pain: tylenol 1g q8hr, per primary team # Asthma # Community acquired pneumonia - F/u OSH sputum cultures - S/p CXR - S/p CT Chest at OSH: bilateral patchy ground glass opacities - Plan to treat for a total 5 day course of antibiotics, to complete today - Ceftriaxone 1g IV q24 hours (09/12/18 - 09/16/18) - Azithromycin 500mg V q24 hours (09/12/18 - 09/16/18) - Steroids d/c'd yesterday - Goal SaO2 > 92%, oxygen supplementation as needed - Consider performing PFTs as an outpatient to evaluate for COPD given the patient's tobacco use - OSH legionella and strep pneumonia is negative - Duonebs q6hr prn, has not been requiring # 6.8mm RUL Nodule - S/p OSH CT Chest with evidence of 6.8mm RUL nodule - Will need a follow up with a low dose CT Chest to evaluate evolution of the patient's RUL nodule within 6-12 months # Post-concussive syndrome - Keppra 1g IV bid - Consider neurology consult to evaluate for subclinic seizures with an EEG and determine need to continue with keppra # HTN - Stable, no active issues - Goal BP < 140/90 # HLD - Recommend aspirin 81mg daily instead of bid - Simvastatin 20mg qhs # Type II DM - SSI - Obtain A1c # LORRI on CPAP - Stable, no active issues - CPAP nightly # GERD - Stable, no active issues # Fibromyalgia with chronic opioid use - Stable, no active issues - Holding home hydrocodone 5mg - acetaminophen 500mg 1 tablet bid - Pain: tylenol 1g q8hr # Tobacco use - Consider need for nicotine patch 21mg qd, per patient preference This patient was discussed with the Medicine Consult Attending. Further adjustments to the plan willbe reflected in their addendum. Consult service will continue to follow patient. X?? Recommendations are above, please page if further consultation required. Aries Lyon MD, PGY-3 09/16/2018 Medicine Consult # [id number] Associated attestation - Chris Stahl DO - 09/16/2018 4:10 PM EDT Attending staff follow-up documentation Please see Dr. Lyon's note for details of the 24hr events, current issues and clinical course.I have discussed, reviewed and agree with the documented history , physical findings, Assessment andPlan of care. I have examined the patient myself on and reviewed all labs and studies personally. Additions to the history, physical, assessment and plan include the following: Patient respiratory status is stable. Complete 5 days of antibiotics. Patient was started on Keppra at OSH for possible seizure with plan for EEG at that time. Consider neurology consult or outpatient neurology referral to follow-up antiepileptic regimen and possible EEG. Pain control per primary team hCris Stahl DO Internal Medicine 09/16/2018 4:10 PM Sanket Freeman MD - 09/16/2018 5:55 AM EDT ORTHOPAEDIC INPATIENT PROGRESS NOTE Patient Name: Jenae La Age: 53 y.o. Surgery/Issue: Bilateral complex foot injuries Attending: Dr. Urban Non-ortho issues/significant PMH: Patient Active Problem List Diagnosis Code ??? 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 Fracture of unspecified tarsal bone(s) of unspecified foot, initial encounter for closed fracture S92.209A ??? Hypertension I10 ??? Hyperlipidemia E78.5 ??? Type 2 diabetes mellitus without complication, with long-term current use of insulin E11.9, Z79.4 ??? Chronic pain G89.29 ??? LORRI on CPAP G47.33, Z99.89 ??? Gastroesophageal reflux K21.9 Subjective/Events: No issues overnight. Did not want her feet elevated and slept well overnight. Denies chest pain, SOB. B/l splints in place at feet. Did have some nausea after taking anti-epileptic medication. Has been voiding very frequently, though denies urinary discomfort. Objective: Temp: [37.1 ??C (98.8 ??F)-37.4 ??C (99.3 ??F)] Heart Rate: [74-83] Resp: [16-18] BP: (128-149)/(67-82) SpO2: [95 %-97 %] Heart Rate from SpO2: [71 bpm-97 bpm] I/O last 3 completed shifts: In: 2882 [P.O.:720; I.V.:2162] Out: 1700 [Urine:1700] I/O this shift: In: 1159 [P.O.:240; I.V.:919] Out: 75 [Urine:75] Body mass index is 34.58 kg/m??. General: alert and oriented and in no apparent distress Pulmonary: Breathing comfortably on room air Cardiac: Regular rate and rhythm by peripheral palpation. B/l LE: - Splints c/d/i - SILT at exposed toes - Wiggles exposed toes - Brisk cap refill at toes Labs: Recent Labs 09/15/18 0344 NA 142 K 3.6 CL 113* CO2 20* BUN 18 CREATININE 0.74 GLUCOSE 135 CALCIUM 7.9* Recent Labs 09/15/18 0344 WBC 11.2* HGB 9.6* HCT 29.5* MCV 96.7* PLATELET 244 Recent Labs 09/15/18 0344 PT 12.0 INR 1.0 Imagin09/12/18 CT of Bilateral Feet Right foot: 1.?Displaced intra-articular fracture of the proximal phalanx of the great toe 2. ??Comminuted intra-articular fractures of the proximal phalanx of the first and second toes 3. ??Dislocation of the first TMT joint 4.??dorsal subluxation of the second TMT joint 5. ??Lateral subluxation of the second through fifth TMT joints 6.?Fracture of the lateral cuboid 7.?Minimally displaced Motley A??fracture of the distal fibula 8.?Second and third base of the metatarsal fractures 9.?Comminuted fractures of the medial and intermediate cuneiforms ?? Left foot:?? 1.?Displaced fractures of the second and third metatarsal necks 2. ??Comminuted displaced fracture of the base of the fourth metatarsal 3.?Fifth distal phalanx fracture 4.??Lateral cuboid fracture 5.??Lateral cuneiform fracture Assessment/Plan: Jenae La is a 53 y.o. female with complex bilateral foot injuries. Plan for OR today vs tomorrow pending scheduling availability. Appreciate [facility] medicine recs. - Neuro consult today - Remain NPO for possible OR today - UA today - NWB B/l LE - Pain control: Oral multimodal pain medication - Discharge planning: likely rehab per PT - F/u TBD Sanket Freeman MD PGY-2 Orthopaedics Davin Ann RRT - 09/15/2018 11:00 PM EDT Pt had Nausea, NIV held this evening. Kathrin Madsen RN - 09/15/2018 2:05 PM EDT Based on discussions with the multi-disciplinary healthcare team, the patient would benefit from snf/swing/acute level of care at discharge. ?? I have met with the patient/outreach representative to discuss discharge planning needs. I have provided the [facility], Office of Care Management letter from the Call Out Clerk pertaining to rehab referrals. I have also provided a letter describing our affiliations within the [facility] and educated them about their right to choose where referrals are placed. ?? I reviewed the different levels of rehab including SNF, swing, acute and LTAC with the patient/outreach representative. ?? The patient/outreach representative has been provided a list of facilities within their preferred geographic area. ?? I have requested that the patient/outreach representative provide at least three choices for referral. ?? The patient/outreach representative have requested referrals to: 2.[facility] [address] [place] [id number] ?? [phone] 1. [facility] [address] [address] ?? [phone] ?? Expected date of discharge: 09/17/18 Note routed to Cnc Manager who will communicate referrals to facilities and provide any required information. Noy Zamora MD - 09/15/2018 6:14 AM EDT ORTHOPAEDIC INPATIENT PROGRESS NOTE Patient Name: Jenae La Age: 53 y.o. Surgery/Issue: Bilateral complex foot injuries Attending: Dr. Urban Non-ortho issues/significant PMH: Patient Active Problem List Diagnosis Code ??? 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 Fracture of unspecified tarsal bone(s) of unspecified foot, initial encounter for closed fracture S92.209A ??? Hypertension I10 ??? Hyperlipidemia E78.5 ??? Type 2 diabetes mellitus without complication, with long-term current use of insulin E11.9, Z79.4 ??? Chronic pain G89.29 ??? LORRI on CPAP G47.33, Z99.89 ??? Gastroesophageal reflux K21.9 Subjective/Events: No issues overnight. Denies chest pain, SOB. B/l splints in place at feet. Objective: Temp: [36.6 ??C (97.9 ??F)] Heart Rate: -- Resp: [18] BP: (149)/(82) SpO2: [95 %-96 %] Heart Rate from SpO2: [69 bpm-83 bpm] No intake/output data recorded. I/O this shift: In: 613 [I.V.:613] Out: 1000 [Urine:1000] There is no height or weight on file to calculate BMI. General: alert and oriented and in no apparent distress Pulmonary: Breathing comfortably on room air Cardiac: Regular rate and rhythm by peripheral palpation. B/l LE: - Splints c/d/i - SILT at exposed toes - Wiggles exposed toes - Brisk cap refill at toes Labs: Recent Labs 09/15/18 0344 NA 142 K 3.6 CL 113* CO2 20* BUN 18 CREATININE 0.74 GLUCOSE 135 CALCIUM 7.9* Recent Labs 09/15/18 0344 WBC 11.2* HGB 9.6* HCT 29.5* MCV 96.7* PLATELET 244 Recent Labs 09/15/18 0344 PT 12.0 INR 1.0 Imagin09/12/18 CT of Bilateral Feet Right foot: 1.?Displaced intra-articular fracture of the proximal phalanx of the great toe 2. ??Comminuted intra-articular fractures of the proximal phalanx of the first and second toes 3. ??Dislocation of the first TMT joint 4.??dorsal subluxation of the second TMT joint 5. ??Lateral subluxation of the second through fifth TMT joints 6.?Fracture of the lateral cuboid 7.?Minimally displaced Motley A??fracture of the distal fibula 8.?Second and third base of the metatarsal fractures 9.?Comminuted fractures of the medial and intermediate cuneiforms ?? Left foot:?? 1.?Displaced fractures of the second and third metatarsal necks 2. ??Comminuted displaced fracture of the base of the fourth metatarsal 3.?Fifth distal phalanx fracture 4.??Lateral cuboid fracture 5.??Lateral cuneiform fracture Assessment/Plan: Jenae La is a 53 y.o. female with complex bilateral foot injuries. She wouldbenefit from operative intervention of her b/l feet. Plan for OR today v. Tomorrow. - NWB B/l LE - Pain control: Oral multimodal pain medication - Discharge planning: home vs rehab per PT - F/u TBD NOY ZAMORA MD PGY-4 Orthopaedics Clotilde Godinez RCP - 09/15/2018 4:15 AM EDT Respiratory Therapy NIV Note NIV Settings: Resmed Vauto Resp: 18 SpO2: 95 % Laboratory: No results found for: PHART, RRM4MZP, PO2ART, AVW4ONU, BEART Assessment: Called to set pt up on NIV this evening. Pt set up on NIV via Vauto titrating mode. Pt did not use NIV due to feeling nauseas overnight. Pt remained on RA with an SpO2 of 95-97%. Plan: Encourage pt to use NIV for nocturnal use as tolerated. CLOTILDE GODINEZ RCP Nell Fitch RN - 09/14/2018 7:05 PM EDT Pt arrived to floor from outside hospital. Pt alert and oriented x4. Pt reports pain 7/10. Pt deniesany chest pain, shortness of breath, dizziness or nausea. Refer to doc flow sheets for full assessment. Patient oriented to room with call valderrama within reach. Kp Henry MD notified. Will continueto monitor. documented in this encounter H&P Notes Sanket Freeman MD - 09/16/2018 8:42 AM EDT 24-HOUR UPDATE Jenae La's history and physical exam have been reviewed and completed. There has been no interval change from that of the pre-operative history and physical exam done within the last 30 days. Proceed with ORIF bilateral foot fractures Sanket Freeman MD PGY-2 P. [id number] 09/16/18 8:42 AM Renata Hill MD - 09/15/2018 8:49 AM EDT Internal Medicine Consult Note Patient Name: Jenae La Service: Orthopedic Surgery Responsible Attending: Dr. Urban PCP: LILLY Gaitan PCP phone #: [phone] Chief Complaint: Foot pain History of Present Illness: Jenae La is a 53 y.o woman with HTN, HLD, Type II DM, LORRI on CPAP, fibromyalgia with chronic opioid use, and GERD who was admitted to the Orthopedic Surgery Service as a transfer from [facility] for operative management of bilateral complex foot fractures s/p trauma (dropping firewood on her feet) on the evening of 09/11/18 causing bilateral immediate pain, swelling, and bruising making it difficult to ambulate and leading to falls c/b striking her head multiple times. It was with these symptoms that she presented to [facility] on 09/12/18. During her initial presentation in the [facility] ED, the patient reported instances of trembling and fecal incontinence. She was noted to be confused with lip and unilateral arm twitching. CT head was negative. CT C-spine was negative. CT chest demonstrated 6.8mm ground glass nodule in the RUL and b/l ground glass opacities. An LP was performed for suspicion of meningitis that was reportedly negative, CSF cultures were reportedly negative. At [facility], she was found to have post-concussive syndrome and empiric keppra was started. Neurology was consulted. She was admitted to the ICU for sepsis secondary to community acquired pneumonia complicated by a COPD exacerbation requiring ceftriaxone, azithromycin, IV steroids, bronchodilators/nebulizer treatments in the setting of bilateral ground glass opacities on her CT Chest. She was also found to have an MANUEL (resolved prior to transfer) and multiple bilateral foot fractures for which Orthopedic Surgery was consulted. Her mental status reportedly returned to her baseline within 24 hours of admission. She was admitted to [facility] from 09/12/18 - 09/14/18. Upon arrival at [facility] on 09/15/18, the patient noted moderate bilateral pain in her feet. Denies fever, chills, headache, vision/hearing changes, rhinorrhea, productive cough, SOB, CP, abdominal pain, n/v, dysuria. She reports the pain in her bilateral feet is a 7/10 and has improved. Medicine was consulted for CAP. Past Medical History/Problem List Patient Active Problem List Diagnosis Code ??? 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 Fracture of unspecified tarsal bone(s) of unspecified foot, initial encounter for closed fracture S92.209A ??? Hypertension I10 ??? Hyperlipidemia E78.5 ??? Type 2 diabetes mellitus without complication, with long-term current use of insulin E11.9, Z79.4 ??? Chronic pain G89.29 ??? LORRI on CPAP G47.33, Z99.89 ??? Gastroesophageal reflux K21.9 Past Medical History: Diagnosis Date ??? Arthritis ??? Chronic pain 09/15/2018 ??? Gastroesophageal reflux 09/15/2018 ??? Hyperlipidemia 09/15/2018 ??? Hypertension 09/15/2018 ??? LORRI on CPAP 09/15/2018 ??? Type 2 diabetes mellitus without complication, with long-term current use of insulin 09/15/2018 Meds: No current facility-administered medications on file prior to encounter. Current Outpatient Medications on File Prior to Encounter Medication Sig Dispense Refill ??? hydroCODone-acetaminophen (VICODIN) 5-500 mg per tablet Take 1 tablet by mouth 2 times daily. ??? CIS Free Text Med - Albuterol ??? FLUTICASONE/SALMETEROL (ADVAIR DISKUS INHL) ??? MEPERIDINE HCL (DEMEROL ORAL) Allergies: Allergies Allergen Reactions ??? Sulfa (Sulfonamide Antibiotics) ??? Tape, Occlusive Adhesive Past Surgical History Past Surgical History: Procedure Laterality Date ??? KNEE ARTHROSCOPY Bilateral ??? SHOULDER ARTHROSCOPY Bilateral Family History: Mother: S/p nephrectomy Father: Unknown Social History: Social History Tobacco Use ??? Smoking status: Former Smoker Substance Use Topics ??? Alcohol use: Not on file ??? Drug use: Not on file Tobacco: 1ppd since 13 years ago Etoh: Denies Illicits: Denies Living Situation: Lives with in [place] Vitals: Last value Range last 24 hrs Temperature Temp: (pt refused) Temp: [36.6 ??C (97.9 ??F)] Heart Rate Heart Rate: -- Blood Pressure BP: 149/82 BP: (149)/(82) Respiratory Rate Resp: 18 Resp: [18] SpO2 SpO2: 95 % SpO2: [95 %-96 %] No intake/output data recorded. Examination: General: Pleasant, alert, appropriate, in NAD. HEENT: EOMI, nonicteric. Oropharynx clear w/o erythema, plaques or exudates or other lesions. No thrush; MMMs Neck: No LAD. JVD ~ Cardiac: Normal S1 and S2, Regular rate and rhythm; No murmurs noted Respiratory: Nonlabored. Clear to auscultation bilaterally; No wheezes or crackles Abd: + BS; soft, non-tender, non-distended, no masses, no HSM Ext: Radial and distal pedal pulses 2+ bilaterally. B/l LE splints in place. R foot with diffuse swelling, resolving ecchymosis throughout entire foot extending to distal calf, no open wounds, TTP, pain with ROM of ankle and toes, sensation intact to light touch. Small area of pressure injury over right medial midfoot. L foot with diffuse swelling and resolving ecchymosis throughout entire foot extending to distal calf without open wounds with moderate tender to palpation and pain with ROM of ankle and toes. Bilateral feet wrapped in boots and dressings that are clean, dry, intact. Neuro: II-XII grossly intact. Alert and orientated, no-focal deficits, sensation intact to crude touch, motor strength 5/5 throughout Skin: No rashs, no lesions, no petechiae Laboratory: CBC: Recent Labs 09/15/18 0344 WBC 11.2* HGB 9.6* PLATELET 244 Chemistry: Recent Labs 09/15/18 0344 NA 142 K 3.6 CL 113* CO2 20* BUN 18 CREATININE 0.74 GLUCOSE 135 Recent Labs 09/15/18 0344 CALCIUM 7.9* LFT's: No results for input(s): BILITOT, BILIDIR, ALBUMIN, ALKPHOS, ALT, AST in the last 7068 hours. Coags: Recent Labs 09/15/18 0344 PT 12.0 INR 1.0 Cardiac enzymes: No results for input(s): TROPONINT, CK in the last 7068 hours. Endocrine: No results for input(s): TSH, CORTISOL in the last 7068 hours. Invalid input(s): [id number] Heme: No results for input(s): LDH, HAPTOGLOBIN, URICACID in the last 168 hours. Microbiology: Microbiology Results (Last 30 days) No results found for the last 720 hours. OSH CSF culture: Obtained OSH Sputum culture: Obtained Diagnostic Studies: CT bilateral lower extremities (09/12/18): 09/12/18 CT of Bilateral Feet Right foot: 1.?Displaced intra-articular fracture of the proximal phalanx of the great toe 2. ??Comminuted intra-articular fractures of the proximal phalanx of the first and second toes 3. ??Dislocation of the first TMT joint 4.??dorsal subluxation of the second TMT joint 5. ??Lateral subluxation of the second through fifth TMT joints 6.?Fracture of the lateral cuboid 7.?Minimally displaced Motley A??fracture of the distal fibula 8.?Second and third base of the metatarsal fractures 9.?Comminuted fractures of the medial and intermediate cuneiforms ?? Left foot:?? 1.?Displaced fractures of the second and third metatarsal necks 2. ??Comminuted displaced fracture of the base of the fourth metatarsal 3.?Fifth distal phalanx fracture 4.??Lateral cuboid fracture 5.??Lateral cuneiform fracture Second Read of CT bilateral lower extremities (09/12/18): 1. Lisfranc fracture dislocation at multiple locations. 2. Additional fractures of the 1 and 2 PP and 1 metatarsal heads. 3. Motley A fracture of the lateral malleolus 4. Nondisplaced intra-articular fracture of the anterior tibia/malleolus. XR Foot (09/12/18): Obatined ASSESSMENT: Jenae La is a 53 y.o woman with HTN, HLD, Type II DM, LORRI on CPAP, fibromyalgia with chronic opioid use, and GERD who was admitted to the Orthopedic Surgery Service as a transfer from [facility] for definitive operative management of bilateral complex foot fractures s/p trauma on the evening of 09/11/18. Medicine was consulted for CAP management. The patient is also suffering from communityacquired pneumonia without a confirmed diagnosis of COPD (no known pulmonary function tests within the chart) for which we will recommend completing a total 5 day course of antibiotics with discontinuation of her stress dose steroids. The patient does not require oxygen supplementation at this time. The patient has no neurologic deficits and it is unclear if she demonstrated seizure-like activity during her presentation at [facility], thus would recommend consulting Neurology to determine the need for an EEG to rule out sub- clinical seizure and determine the need to continue keppra. The patient's other chronic medical conditions remains stable at this time. See rest of plan below: The patient's revised cardiac risk index is a Class I risk (0 points) with a 3.9% 30 day risk of , [place], or cardiac arrest. No further cardiac work up is recommended prior to surgical intervention. The patient's ACS NSQIP Surgical Risk Calculator demonstrates the patient has a 7.9% (below average)risk of serious complication, a 9.7% (below average) risk of any complication, an 0.2% (below average) of a cardiac complication, and an 0.1% (below average) risk of . PLAN: # Bilateral complex foot fractures 2/2 trauma - S/p XR of foot - S/p CT lower extremities - S/p second read of CT lower extremity - Surgical intervention per Orthopedic Surgery Team - Per Ortho, non-weight bearing on bilateral lower extremities, maintain strict elevation, posteriorslab splints in place - Patient is NPO for potential OR for ORIF of foot fractures today. - Pain: tylenol 1g q8hr # Asthma # Community acquired pneumonia - F/u OSH sputum cultures - S/p CXR - S/p CT Chest at OSH: bilateral patchy ground glass opacities - Plan to treat for a total 5 day course of antibiotics - Ceftriaxone 1g IV q24 hours (09/12/18 - 09/16/18) - Azithromycin 500mg V q24 hours (09/12/18 - 09/16/18) - Discontinue steroids - Goal SaO2 > 92%, oxygen supplementation as needed - Consider performing PFTs as an outpatient to evaluate for COPD given the patient's tobacco use - OSH legionella and strep pneumonia is negative - Duonebs q6hr prn # 6.8mm RUL Nodule - S/p OSH CT Chest with evidence of 6.8mm RUL nodule - Will need a follow up with a low dose CT Chest to evaluate evolution of the patient's RUL nodule within 6-12 months # Post-concussive syndrome - Keppra 1g IV bid - Consider neurology consult to evaluate for subclinic seizures with an EEG and determine need to continue with keppra # HTN - Stable, no active issues - Goal BP < 140/90 # HLD - Recommend aspirin 81mg qd instead of bid - Simvastatin 20mg qhs # Type II DM - SSI - Obtain A1c # LORRI on CPAP - Stable, no active issues - CPAP nightly # GERD - Stable, no active issues # Fibromyalgia with chronic opioid use - Stable, no active issues - Holding home hydrocodone 5mg - acetaminophen 500mg 1 tablet bid - Pain: tylenol 1g q8hr # Tobacco use - Consider need for nicotine patch 21mg qd, per patient preference This patient was discussed with the Medicine Consult Attending. Further adjustments to the plan willbe reflected in their addendum. The Medicine Service will continue to follow the patient Renata Hill MD Internal Medicine, PGY- 3 Medicine Consult Pager #[phone] Associated attestation - Chris Stahl DO - 09/15/2018 3:25 PM EDT Attending Staff New Consult Documentation We have been asked to see this patient in consultation by Dr. Urban from orthopedic surgery Please see Dr. Hill's note for details of the patient history of presentation and data. I have discussed, reviewed and agree with the documented history with ROS, social and family history, medication list, physical findings, labs/studies, Assessment and Plan of care. I have examined the patient myself and reviewed all labs and studies personally. Additions to the history, physical, assessment and plan include the following: Ms. Jneae La is a 53-year-old female who presented as a transfer from [facility] for operative management of the complex foot fractures due to trauma on 09/11/2018. Her hospital course at [facility] was complicated by an ICU admission due to community-acquired pneumonia, as well as possible focal seizures and postconcussive syndrome. Here at [facility] patient has been clinically stable from pulmonary standpoint as well as neurologically she has not had any witnessed events after the transfer. Initially was planned to have an EEG at the OSH, however they were not able to arrange this prior to transfer. At this time will complete a 5-day course of antibiotics for community-acquired pneumonia and discontinue IV steroids. Continue with duo nebs as needed for mild intermittent asthma. Recommend consulting neurology for indication to continue antiepileptics as well as need for EEG. Preoperative stratification as noted by Dr. Hill. Patient does not need any further cardiac testing prior to surgery. Pain control per primary team. We will continue to follow along with you. Chris Stahl, DO Internal Medicine 09/15/2018 3:25 PM Noy Zamora MD - 09/15/2018 6:27 AM EDT The patient's history and physical exam have been reviewed and completed. There has been no intervalchange from that of the pre-operative history and physical exam done within the last 30 days. NOY ZAMORA MD Javad Urban MD - 09/15/2018 1:35 AM EDT Images from the original note were not included. Orthopaedic Surgery History & Physical Attending: Dr. Urban Chief Complaint: Bilateral Foot Pain History of Present Illness: Jenae La is a 53 y.o. female with history pertinent for insulin-dependent diabetes type 2, fibromyalgia, chronic opiate use, and LORRI on CPAP who presents as a direct admit to the orthopaedics service as a transfer from [facility] for operative management of bilateral complex foot fractures. Mrs. La reports dropping a piece of firewood on her feet on the evening of 09/11/2018. This resulted in immediate pain in both of her feet, lateraccompanied by swelling and bruising. Over the next day she had multiple falls that she attributes to significant foot pain with ambulation. She struck her head multiple times, leading her to present to [facility] on 09/12/2018 for evaluation. Initial work-up at [facility] revealed sepsis secondary to suspected community- acquired pneumonia, mild acute exacerbation of COPD, a closed head injury with postconcussive syndrome, multiple bilateral foot fractures, and MANUEL, resulting in hospital admission. Upon presentation to the [facility] ED, her and her reported instances of trembling and fecal incontinence. She was observed to be confused and have unilateral arm and lip twitching in the ED. A lumbar puncture was performed for suspicion of meningitis, but this was reported to be negative. Mrs. La was admitted to the ICU, where empiric azithromycin and Rocephin, IV steroids, nebulizer treatments, empiric Keppra was initiated. Within 24 hours of admission, the patient's mental status reportedly returned to baseline. On the day of transfer, the patient's blood and CSF cultures reportedly showed no growth to date, sputum cultures were in process, the MANUEL was resolved, and patient was not requiring oxygen. Patient was noted to be Hemoccult positive with no active bleeding observed. General Surgery at [facility] evaluated the patient, and felt no further action was required besides outpatient follow up. Upon arrival to [facility], Mrs. La reports moderate pain in her feet, right worse than left. Her pain is no worse than it has been the preceding few days. She denies having pain in any other location. She endorses shortness of breath when lying flat and denies having any chest pain, nausea, vomiting, fevers, chills, tingling or numbness. On arrival a Patel catheter was in place and bilateral posterior slab splints were on the lower extremities. Past Medical History: Patient Active Problem List Diagnosis Code ??? 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 Fracture of unspecified tarsal bone(s) of unspecified foot, initial encounter for closed fracture S92.209A ??? Hypertension I10 ??? Hyperlipidemia E78.5 ??? Type 2 diabetes mellitus without complication, with long-term current use of insulin E11.9, Z79.4 ??? Chronic pain G89.29 ??? LORRI on CPAP G47.33, Z99.89 ??? Gastroesophageal reflux K21.9 Past Surgical History: Procedure Laterality Date ??? KNEE ARTHROSCOPY Bilateral ??? SHOULDER ARTHROSCOPY Bilateral Allergies Allergen Reactions ??? Sulfa (Sulfonamide Antibiotics) ??? Tape, Occlusive Adhesive No current facility-administered medications on file prior to encounter. Current Outpatient Medications on File Prior to Encounter Medication Sig Dispense Refill ??? hydroCODone-acetaminophen (VICODIN) 5-500 mg per tablet Take 1 tablet by mouth 2 times daily. ??? CIS Free Text Med - Albuterol ??? FLUTICASONE/SALMETEROL (ADVAIR DISKUS INHL) ??? MEPERIDINE HCL (DEMEROL ORAL) Family History: Negative for bleeding/clotting disorders or anesthetic complications. Social History: Tobacco: Smokes 1 ppd since age 15. EtOH: Denies recent use. Living Situation: Lives with and multiple pets in [place], [place]. Review of Systems: As per HPI, otherwise negative Objective: Temp: [36.6 ??C (97.9 ??F)] Heart Rate: -- Resp: [18] BP: (149)/(82) SpO2: [95 %-96 %] Heart Rate from SpO2: [69 bpm-83 bpm] General: Comfortable appearing heavyset middle-aged female reclined in bed in no acute distress, alert and oriented, answering questions appropriately. HEENT: Multiple scattered areas of ecchymosis to face. CV: Regular rate and rhythm. No murmurs, rubs, or gallops. Pulm: Normal respiratory effort on room air. Lungs clear to auscultation bilaterally. Skin: Scattered areas of ecchymosis. Psych: Normal mood and pleasant affect. Right Lower Extremity Exam: There is a plaster posterior slab short leg splint with extensive lakeside cotton padding in place. Splint was temporarily removed for examination. There is diffuse swelling and resolving ecchymosis throughout the entire foot, extending to the distal calf. The skin is taut and unable to be wrinkled. There is a small area of pressure injury over the medial midfoot. There are no open wounds. The foot is exquisitely tender to palpation. There is pain with any range of motion of the toes or ankle. There is mild tenderness to the distal tibia-fibula. There is no tenderness to the proximal tibia-fibula, knee, femur, hip, pelvis. Motor is intact to EHL/FHL, ankle plantarflexion/dorsiflexion, but strength is pain limited. Motor is intact to knee flexion/extension, hip flexion. Sensation is intact to light touch in the LFC/femoral/saphenous/sural/SP/DP/T distributions. Brisk capillary refill distally. Palpable DP and PT pulses. Left Lower Extremity Exam: There is a plaster posterior slab short leg splint with extensive lakeside cotton padding in place. Splint was temporarily removed for examination. There is diffuse swelling and resolving ecchymosis throughout the entire foot, extending to the distal calf. The skin is taut and unable to be wrinkled. There are no open wounds. The foot is moderately tender to palpation. There is pain with any range of motion of the toes or ankle. There is mild tenderness to the distal tibia-fibula. There is no tenderness to the proximal tibia-fibula, knee, femur, hip, pelvis. Motor is intact to EHL/FHL, ankle plantarflexion/dorsiflexion, but strength is pain limited. Motor is intact to knee flexion/extension, hip flexion. Sensation is intact to light touch in the LFC/femoral/saphenous/sural/SP/DP/T distributions. Brisk capillary refill distally. Palpable DP and PT pulses. Labs: Type and screen, BMP, CBC, coag panel in process. Imagin09/12/18 CT of Bilateral Feet Right foot: 1. Displaced intra-articular fracture of the proximal phalanx of the great toe 2. Comminuted intra-articular fractures of the proximal phalanx of the first and second toes 3. Dislocation of the first TMT joint 4. dorsal subluxation of the second TMT joint 5. Lateral subluxation of the second through fifth TMT joints 6. Fracture of the lateral cuboid 7. Minimally displaced Motley A fracture of the distal fibula 8. Second and third base of the metatarsal fractures 9. Comminuted fractures of the medial and intermediate cuneiforms ?? Left foot: 1. Displaced fractures of the second and third metatarsal necks 2. Comminuted displaced fracture of the base of the fourth metatarsal 3. Fifth distal phalanx fracture 4. Lateral cuboid fracture 5. Lateral cuneiform fracture Assessment/Plan: 53 y.o. female with multiple comorbidities including IDDM type 2, LORRI on CPAP, and fibromyalgia on chronic opiates presents as a direct admit to the Orthopaedics service from [facility] for definitive management of bilateral complex foot fractures after dropping log on 09/11/18. Patent's condition further complicated by diagnosis of community acquired pneumonia, COPD exacerbation, question of seizure activity, and hemoccult positivity. Patient stable and comfortable on arrival. Bilateral posterior slab splints replaced to lower extremities. Feet elevated on multiple pillows and iced in attempt to reduce swelling. Empiric Azithromycinand Ceftriaxone continued for suspected CAP. Steroids continued for COPD exacerbation. Empiric Keppra continued in setting of questionable seizure activity. CPAP ordered for LORRI. The risks, benefits, and alternatives to operative fixation of the bilateral feet were discussed. The patient expressed understanding and wished to proceed with surgical management. Patient booked/marked/consented for operative fixation of bilateral foot injuries. NPO for potential OR today. Medicine consulted for assistance in managing comorbidities. - Activity: Non-weight bearing bilateral lower extremities. Maintain strict elevation. Posterior slab splints in place. - DVT prophylaxis: ASA 81 mg bid. - Antibiotics: Empiric Azithromycin and Ceftriaxone continued. - Diet: NPO for potential OR. ?? Ori Santos MD Orthopaedic Surgery PGY3 I discussed the patient and the plan for the patient's care with the primary author and reviewed theaccompanying imaging. I have reviewed and agree with the findings and the plan of care as outlined above, with the following additions or alterations: High energy injury to both feet would be unusual for just dropping firewood on her feet. We will assure that she is safe at home, and this injury did not result from a different mechanism. Her feet would benefit from operative fixation. We will plan on this tomorrow if swelling allows. Javad Urban MD MS Orthopaedic Surgery documented in this encounter Procedure Notes Jose Singer MD - 09/17/2018 9:30 AM EDTAssociated Order(s): EEG AWAKE, ASLEEP, DROWSY [facility] Department of Neurology Inpatient EEG Report Name of the Patient: Jenae La Date of : 1965 Date of Service: 09/17/2018 Referring physician: Dr. Abdirahman Enamorado BRIEF HISTORY: Jenae La is a 53 y.o. patient with episodes of tremors at home and witnessed facial and arm twitching at [facility] (witnessed by nursing). Also has hit head during multiple falls recently. MEDICATIONS: Current Facility-Administered Medications Medication Dose Route Frequency Provider Last Rate Last Dose ??? oxyCODONE (ROXICODONE) immediate release tablet 5 mg 5 mg Oral Q3H PRN Sanket Freeman MD Or ??? oxyCODONE (ROXICODONE) immediate release tablet 10 mg 10 mg Oral Q3H PRN Sanket Freeman MD Or ??? oxyCODONE (ROXICODONE) immediate release tablet 15 mg 15 mg Oral Q3H PRN Sanket Freeman MD 15mg at 09/17/18 0844 ??? potassium chloride (K-DUR/KLOR-CON) extended release tablet 20 mEq 20 mEq Oral Q4H Sanket Freeman MD 20 mEq at 09/17/18 0636 ??? cholecalciferol (Vitamin D3) tablet 1,000 Units 1,000 Units Oral Daily Buffy Russell PA 1,000 Units at 09/17/18 0843 ??? calcium citrate (CALCITRATE) tablet 950 mg 950 mg Oral Daily Buffy Russell PA 950 mg at 09/17/18 0844 ??? enoxaparin (LOVENOX) injection 40 mg 40 mg Subcutaneous Nightly Sanket Freeman MD 40 mg at 09/16/182010 ??? Nicotine inhalation system (Nicotrol Inhaler) 1 cartridge 1-4 Cartridge Inhalation Q4H PRN Sanket Freeman MD 1 Cartridge at 09/17/18 0352 ??? polyethylene glycol (MIRALAX) packet 17 g 17 g Oral BID Sanket Freeman MD 17 g at 09/15/18 0819 ??? senna-docusate (PERICOLACE) 8.6-50 mg per tablet 2 tablet 2 tablet Oral BID Sanket Freeman MD2 tablet at 09/17/18 0844 ??? sodium chloride 0.9% infusion 1,000 mL Intravenous Continuous Sanket Freeman MD 100 mL/hr at 09/16/181999 1,000 mL at 09/16/181999 ??? acetaminophen (TYLENOL) tablet 1,000 mg 1,000 mg Oral Q8H Sanket Jamison MD 1,000 mg at 09/17/18 0525 ??? ipratropium-albuterol (DUONEB) 0.5 mg-3 mg(2.5 mg base)/3 mL nebulizer solution 3 mL 3 mL Nebulization Q4H PRN Sanket Freeman MD ??? simvastatin (ZOCOR) tablet 20 mg 20 mg Oral QPM Sanket Freeman MD 20 mg at 09/16/181651 ??? glucose (GLUTOSE) 40% oral gel 15-30 g Buccal Q30 Min PRN Sanket Freeman MD Or ??? dextrose 50% intravenous solution 25-50 mL 12.5-25 g Intravenous Q1H PRN Sanket Freeman MD Or ??? glucagon (human recombinant) injection SolR 1 mg 1 mg Intramuscular Q1H PRN Sanket Freeman MD ??? insulin lispro (HumaLOG) VIAL injection 1-4 Units 1-4 Units Subcutaneous Q4H Sanket Jamison MD 1 Units at 09/15/18 2305 ??? ondansetron (ZOFRAN) injection 4 mg 4 mg Intravenous Q8H PRN Sanket Freeman MD 4 mg at 09/16/18 0721 ??? prochlorperazine (COMPAZINE) injection 10 mg 10 mg Intravenous Q6H PRN Sanket Freeman MD 10 mg at 09/15/182050 METHODS: A 21 channel digitized electroencephalogram was performed in the [facility] Clinical Neurophysiology Laboratory. The 10/20 international system of electrode placement was used and bipolar and referential electrode montages were recorded. In addition to EEG the patient was monitored for EKG and lateral/vertical eye movements. Video was recorded during the session. The duration of the recording was 30 minutes. TAX ASSOCIATE ATTORNEY'S REPORT: Performed by: RR/CM Patient was not sleep deprived. Sleep was not attained. Photic stimulation was performed. Hyperventilation was performed. Effort was was adequate. Movement and other artifact was significant. Patient was in extreme pain. Comments:N/A ELECTROENCEPHALOGRAPHER'S REPORT: Background Significant motion and muscle artifact obscure much of this recording. During the awake state with the eyes closed the background consisted of a normal amplitude, 9 Hz posterior reactive rhythm that attenuated appropriately with eye opening. Beta activity was distributed diffusely with an anterior predominance. There was a normal anterior-posterior voltage gradient. With eye opening the background activity changed to a low voltage mixture of alpha, beta, and occasional theta range frequencies. Therewere no significant asymmetries of background activity noted. Sleep Stage II sleep was not obtained. Hyperventilation Hyperventilation resulted in diffuse slowing of the background activity without appearance of abnormal activity. Photic Stimulation Photic stimulation using a step-mullen increase in photic frequency varying from 1-21 Hertz resulted in bilateral driving responses at 5, 7, 9, 11, 13, 15, 17, 19, and 21 Hertz but no appearance of abnormal activity. Abnormal EEG Activity None EKG EKG revealed normal sinus rhythm. PRIOR EEG: No previous EEG reports were available. INTERPRETATION: This EEG is normal during the awake state as well as during the activation procedures of hyperventilation and photic stimulation. Of note, significant motion and muscle artifact obscure much of this recording. No seizures were captured. CLINICAL CORRELATION: This is a normal awake only EEG without any epileptiform activity or focal abnormalities which decreases likelihood of epileptic seizures. A normal EEG does not exclude the diagnosis of epilepsy and itremains a clinical diagnosis. If there remains clinical suspicion please consider getting a repeat EEG that also captures sleep. German Angel MD Clinical Neurophysiology Fellow Personal Pager #[phone] Epilepsy Neurology #[phone] Neurology Attending I have personally reviewed the EEG, and I agree with the details as written. The above report was formulated in discussion with me at the time of EEG reading, and I agree with it as documented. Jose Singer MD [place] [address] Pager: [phone], #[phone] Email: [email or web address] documented in this encounter Miscellaneous Notes Consult Note - Dimitrios Valle RN - 09/20/2018 11:55 AM EDT TOBACCO DEPENDENCE TREATMENT NOTE DATE: 09/20/2018 NAME: Jenae La : 1965 S: I don't need anything from you. The only thing that works for me is this [nicotine inhaler] and you won't give me one, so I'm done. I'll ask my doctor to get them for me. I'm leaving today. O: Referral received. Attempted to meet with patient to discuss her tobacco use and assess her readiness to quit. She is not interested in receiving [facility] Tobacco Cessation packet. A: Pt refused consult. P: Encouraged patient to reach out to PCP for nicotine inhaler prescription. Dimitrios Valle, MSN, RN-[facility] Tobacco Sheet [facility] Pager #[phone] Plan of Care - Stacey Duenas RN - 09/20/2018 5:39 AM EDT Problem: Patient Care Overview Goal: Plan of Care Review 09/20/18 0517 Coping/Psychosocial Plan Of Care Reviewed With patient Plan of Care Review Progress progress toward functional goals as expected OUTCOME EVALUATION NOTE: OUTCOME SUMMARY: Patient's temperature was 37.9 po max. Patient sliding from bed to bedside commode with stand by assist.NWB to BLE's. Medicated with Dilaudid 6 mg po every 4 hours prn pain. Pt self demonstrated Lovenox injections. Patient waiting for delivery of DME before she is discharged. PLAN MOVING FORWARD: Pain control Discharge soon INDIVIDUALIZED FALL PREVENTION INTERVENTIONS: Patient-specific fall risk factors per assessment: [current deficits]: Trauma injury, NWB BLE's, pain, pain medication, and hospital environment Assistance [level of assistance required for transfers and ambulation]: NWB BLE's. Slide board transfers Supervision [direct monitoring required during toileting and ADLs]: Hands on Surveillance [continuous indirect monitoring]: Masimo, purposeful rounding and nurse knowledge exchange Patient-specific fall prevention interventions for sensory deficits provided, if applicable: CPG GOAL OUTCOME EVALUATION: Plan of Care - Mai Bose RN - 09/19/2018 5:05 PM EDT Problem: Patient Care Overview Goal: Plan of Care Review Outcome: Ongoing (Interventions Implemented as Appropriate) 09/19/18 1653 Coping/Psychosocial Plan Of Care Reviewed With patient;spouse Plan of Care Review Progress progress toward functional goals as expected OUTCOME EVALUATION NOTE: OUTCOME SUMMARY: Pt remains stable, up to chair early this morning. Pain managed with PO Dilaudid prn. Pt transferring well with good techniques from bed to chair and chair to BSC using slide board. PLAN MOVING FORWARD: Pain management, up in chair for meals, awaiting equipment delivery to home prior to d/c. INDIVIDUALIZED FALL PREVENTION INTERVENTIONS: Patient-specific fall risk factors per assessment: [current deficits]: NWB to BLE, pain meds. Assistance [level of assistance required for transfers and ambulation]: One person assist. Supervision [direct monitoring required during toileting and ADLs]: Hands on, eyes on. Surveillance [continuous indirect monitoring]: holger Goodrich. Patient-specific fall prevention interventions for sensory deficits provided, if applicable: [X] Yes, glasses. Plan of Care - Fely Freeman RN - 09/19/2018 3:58 AM EDT Problem: Patient Care Overview Goal: Plan of Care Review Outcome: Ongoing (Interventions Implemented as Appropriate) 09/18/18 1849 09/18/182013 Coping/Psychosocial Plan Of Care Reviewed With -- patient Plan of Care Review Progress progress toward functional goals as expected -- OUTCOME EVALUATION NOTE: OUTCOME SUMMARY: Pt A&O, VSS, lung sounds clear and equal bilaterally. Pt sliding from chair, to commode, to bed,etc. Tolerating well. Pt had BM x2. Pt on and off bed silva throughout the night. Pain controlled witharound the clock dosing and ice. Pt rested for a few hours during the night. Pt educated about lovenox injection. Feet elevated throughout the night. Possible d/c today. Patient progressing towards d/cgoals appropriately at this time. Patients pain adequately controlled, see MAR for medications given. Will continue to monitor and help patient reach d/c goals. PLAN MOVING FORWARD: Pain control Mobilize D/c planning INDIVIDUALIZED FALL PREVENTION: Patient is currently a high risk to Fall. Patient educated on bed/chair alarm, demonstrates proper use of call valderrama and verbalizes understanding of fall preventions implemented. Patient-specific fall risk factors per assessment: [current deficits]: NWB BLE, Pain, Medications, Hospital Environment. Assistance [level of assistance required for transfers and ambulation]: 1 assist + slide board Supervision [direct monitoring required during toileting and ADLs]: Hands on assistance with ADL's Surveillance [continuous indirect monitoring]: Jaceo, Purposeful Rounding, Bedside Report Patient-specific fall prevention interventions for sensory deficits provided, if applicable: [X] N/A CPG GOAL OUTCOME EVALUATION: Goal: Fall Prevention-Safe Patient Handling Outcome: Ongoing (Interventions Implemented as Appropriate) 09/18/18184709/18/182013 Restraint Interventions Safety Promotion/Fall Prevention -- activity supervised Activity Activity Type -- activity adjusted per tolerance Activity Assistance Provided -- assistance, 1 person Assistive Device Utilized wheelchair -- Positioning Body Position -- supine, head elevated Daily Care Interventions Self-Care Promotion independence encouraged;BADL personal objects within reach;BADL personal routines maintained -- Burks Fall Risk History of Falling -- 25 Secondary Diagnosis -- 15 Ambulatory Aids -- 15 Intravenous Therapy/Heparin/Saline Lock -- 20 Gait/Transferring -- 20 Mental Status -- 0 Score -- 95 OTHER Burks Fall Risk -- High Goal: Infection Control Outcome: Ongoing (Interventions Implemented as Appropriate) 09/18/182013 Safety Interventions Isolation Precautions standard precautions maintained Infection Prevention rest/sleep promoted;single patient room provided Coping Strategies Supportive Measures active listening utilized;verbalization of feelings encouraged Problem: Skin Integrity Impairment, Risk/Actual (Adult) Goal: Identify Related Risk Factors and Signs and Symptoms Related risk factors and signs and symptoms are identified upon initiation of Human Response Clinical Practice Guideline (CPG) Outcome: Ongoing (Interventions Implemented as Appropriate) 09/18/181820 Skin Integrity Impairment, Risk/Actual Skin Integrity Impairment, Risk/Actual: Related Risk Factors surgery/procedure;edema;immobility Signs and Symptoms (Skin Integrity Impairment) edema Goal: Skin Integrity/Wound Healing Patient will demonstrate the desired outcomes by discharge/transition of care. Outcome: Ongoing (Interventions Implemented as Appropriate) 09/18/18 1821 Skin Integrity Impairment, Risk/Actual (Adult) Skin Integrity/Wound Healing making progress toward outcome Plan of Care - Mai Bose RN - 09/18/2018 6:56 PM EDT Problem: Patient Care Overview Goal: Plan of Care Review Outcome: Ongoing (Interventions Implemented as Appropriate) 09/18/18 1849 Coping/Psychosocial Plan Of Care Reviewed With patient Plan of Care Review Progress progress toward functional goals as expected OUTCOME EVALUATION NOTE: OUTCOME SUMMARY: Pt remains stable, rested in between care. Pain managed with PO Dilaudid. Assisted OOB to chair withsupervision while pt used slide and maintained NWB to BLE. Pt voiced she uses insulin pen at home and she has the knowledge on how to administer subcutaneous injections, reviewed with pt how to self administered her insulin at lunch and dinner, pt returned demonstration with good techniques, pt also instructed to use same techniques while self administering Lovenox injection. Will inform oncoming RN to have pt self administer her Lovenox tonight in preparation for d/c. Pt voided more when using BSC. PLAN MOVING FORWARD: Pain management, maintain NWB to BLE, OOB to chair for meals, BSC to void. INDIVIDUALIZED FALL PREVENTION INTERVENTIONS: Patient-specific fall risk factors per assessment: [current deficits]: NWB to BLE, unsteady gait, pain meds. Assistance [level of assistance required for transfers and ambulation]: 1 person assist. Supervision [direct monitoring required during toileting and ADLs]: Hands on, eyes on. Surveillance [continuous indirect monitoring]: Kp purposeful rounding. Patient-specific fall prevention interventions for sensory deficits provided, if applicable: Yes, glasses. Plan of Care - Fely Freeman RN - 09/18/2018 4:31 AM EDT Problem: Patient Care Overview Goal: Plan of Care Review Outcome: Ongoing (Interventions Implemented as Appropriate) 09/17/18195709/18/18 0414 Coping/Psychosocial Plan Of Care Reviewed With patient -- Plan of Care Review Progress -- progress towards functional goals is fair OUTCOME EVALUATION NOTE: OUTCOME SUMMARY: Pt A&O, VSS, lung sounds clear bilaterally. Pt voiding on the bed silva and still having 200-400 PVR's, will continue to monitor. Pt pain being controlled with around the clock medication, ice packs and elevation. Resting between care. Patient progressing towards d/c goals appropriately at this time. Patients pain adequately controlled, see MAR for medications given. Will continue to monitor and help patient reach d/c goals. PLAN MOVING FORWARD: Pain control Mobilize PVR's D/c planning INDIVIDUALIZED FALL PREVENTION: Patient is currently a high risk to Fall. Patient educated on bed/chair alarm, demonstrates proper use of call valderrama and verbalizes understanding of fall preventions implemented. Patient-specific fall risk factors per assessment: [current deficits]: NWB BLE, Pain, Medications, Hospital Environment. Assistance [level of assistance required for transfers and ambulation]: 1 assist Supervision [direct monitoring required during toileting and ADLs]: Hands on assistance with ADL's Surveillance [continuous indirect monitoring]: PVR's, Masimo, Purposeful Rounding, Bedside Report Patient-specific fall prevention interventions for sensory deficits provided, if applicable: [X] N/A CPG GOAL OUTCOME EVALUATION: Goal: Fall Prevention-Safe Patient Handling Outcome: Ongoing (Interventions Implemented as Appropriate) 09/17/18 0843 09/17/181957 Burks Fall Risk History of Falling -- 25 Secondary Diagnosis -- 15 Ambulatory Aids 0 -- Intravenous Therapy/Heparin/Saline Lock -- 20 Gait/Transferring -- 20 Mental Status -- 0 Score -- 80 OTHER Burks Fall Risk -- High Restraint Interventions Safety Promotion/Fall Prevention -- activity supervised;nonskid shoes/slippers when out of bed;safety round/check completed Positioning Body Position -- supine, head elevated Activity Activity Type -- activity adjusted per tolerance Activity Assistance Provided -- assistance, 2 people Assistive Device Utilized -- other (see comments) (slide board) Goal: Infection Control Outcome: Ongoing (Interventions Implemented as Appropriate) 09/17/181957 Safety Interventions Isolation Precautions standard precautions maintained Infection Prevention rest/sleep promoted;single patient room provided Coping Strategies Supportive Measures active listening utilized;verbalization of feelings encouraged Goal: Discharge Needs Assessment Outcome: Ongoing (Interventions Implemented as Appropriate) 09/15/18 0522 Discharge Needs Assessment Discharge Disposition still a patient Problem: Skin Integrity Impairment, Risk/Actual (Adult) Goal: Skin Integrity/Wound Healing Patient will demonstrate the desired outcomes by discharge/transition of care. Outcome: Ongoing (Interventions Implemented as Appropriate) 09/15/18 0521 Skin Integrity Impairment, Risk/Actual (Adult) Skin Integrity/Wound Healing making progress toward outcome Plan of Care - Dede Lindsay - 09/17/2018 6:59 PM EDT Problem: Patient Care Overview Goal: Plan of Care Review 09/17/181837 Coping/Psychosocial Plan Of Care Reviewed With patient Plan of Care Review Progress improving OUTCOME EVALUATION NOTE: OUTCOME SUMMARY: Patient resting between care, alert and oriented x 4, Patient denies chest pain and SOB. Complained of pain 10/10 in right grand toe and foot, controlled with PRN PO Dilaudid see MAR. Patient has BLE maricruz wrap dressings, clean dry and intact. Denies numbness and tingling. Patient urinated multiple times 100-200ml with Highest PVR of 763. Patient was straight cath x2 per orders, 700ml, 800ml. VSS, willcontinue to monitor. PLAN MOVING FORWARD: D/C planning, pain management, continue voiding INDIVIDUALIZED FALL PREVENTION INTERVENTIONS: Patient-specific fall risk factors per assessment: [current deficits]: Generalized weakness, Non-weight bearing BLE Assistance [level of assistance required for transfers and ambulation]: Bedrest,Slide board to chairand comode, 2 assist Supervision [direct monitoring required during toileting and ADLs]: SBA Surveillance [continuous indirect monitoring]: Masimo Patient-specific fall prevention interventions for sensory deficits provided, if applicable: [X] Yes Care Management - Dimitrios Moser RN - 09/17/2018 12:31 PM EDT Chart reviewed and met with pt and . Pt looks askew in bed with madi SCHULZ's elevated on pillows. I offered to reposition her and she said she was actually comfortable and waiting to get on the bedpan again. Pr worked with MARIE Aguilar and PAT Olivares this am and did well with her transfers on and offthe drop arm commode and W/C with elevating legs using a slide board. Pt also needs a ramp built to get her up the two steps into her house and her is going to build it this weekend. Pt requests [facility] for her DME. I have spoken with Thalia from the [place] office and she states she cannot get this DME on a Thu afternoon for Sat am but can do this for a Mon d/c. Pt states there is a branch in [facility] that she has used in the past. Pt requests a referral to [facility] for anRN for skilled assessments, PT, OT, and steve for [facility]. Pt requests [facility] if possible. I advisedpt to call in all the favors with her friends to visit and bring lunch! Or dinner! Plan of Care - Lauren Perales, PT - 09/17/2018 11:44 AM EDT Physical Therapy Evaluation Precautions/Restrictions: fall, weight bearing Precautions Comments: NWB b/l LEs, strict elevation LEs Assessment: Pt presents to initial PT evaluation with physical impairments of pain, decr strength, decr functional endurance, decr activity tolerance, edema, and NWB precautions, which are currently contributing to functional limitations. Please see the flow sheet below for patient objective details and mobility. Pt highly motivated and eager to participate in therapy evaluation/OOB mobility. Pt educated in precautions and use of slideboard for transfers. With initial cuing and set up, pt able to progress to conditional independence for transfers with use of slide board, despite high levels of pain. Pt transferred in both directions from bed <> commode and to w/c. Pt able to propel w/c safely in all directions. Pt highly motivated to D/C home as soon as possible. She is currently safe from a mobility standpoint for D/C home, pending appropriate equipment obtained (requires drop arm commode, w/c with elevating leg rests, and slide board). Will continue to monitor until formal discharge. Recommend home PT services for home safety evaluation upon discharge. Staff Communication/Mobility Recommendations: ?? slideboard transfers w/ x1 SBA to drop arm commode Anticipated Physical Therapy Frequency: evaluation only(safe for DC home pending equipment) Anticipated Equipment Needs at Discharge: bedside commode, sliding board, wheelchair(drop arm commode, elevating leg rests) Anticipated Discharge Disposition: (S) home with home health, home with assist Has Patient Cleared Physical Therapy? YES NO xxx Lauren Perales, PT, DPT Pager: [phone] Inpatient Physical Therapy 2017 PT Evaluation Code Rationale: ?? Diagnosis & Pertinent Co-Morbidities, personal factors, and present illness affecting Plan ofCare: Patient Active Problem List Diagnosis Code ??? 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 S/P ORIF bilateral foot fractures, 09/16/18 (Gitajn) S92.209A ??? Hypertension I10 ??? Hyperlipidemia E78.5 ??? Type 2 diabetes mellitus without complication, with long-term current use of insulin E11.9, Z79.4 ??? Chronic pain G89.29 ??? LORRI on CPAP G47.33, Z99.89 ??? Gastroesophageal reflux K21.9 Additional personal factors or co-morbidities that impact plan: ?? Total # of Factors: (chronic pain, R knee OA) 0 1-2 3+ x ?? Examination of body system impairments, functional limitations and behaviors, and/or participation restrictions. (see above) Addressing 1-2 elements Addressing 3 + elements Addressing 4 + elements x ?? Clinical presentation: See assessment above. (pain, fatigue) Stable/Uncomplicated Evolving/Fluctuating Symptoms Unstable/Unpredictable x ?? Clinical decision making of moderate complexity based on pt's functional performance as outlined in this evaluation. 09/17/18 1144 Rehab Evaluation Document Type evaluation Total Evaluation Minutes, Physical Therapy 50 (x1 Mod Eval, x1 TEF) Patient Effort excellent Symptoms Noted During/After Treatment increased pain General Information Patient Profile Review yes Patient/Family/Caregiver Comments/Observations I'm in 10/10 pain they need to do something General Observations of Patient pt supine pre/post PT with all needs in reach, LE elevated on pillows, ice pack to RLE, VSS on RA, present Hearing Precautions/Limitations WFL Precautions/Restrictions fall;weight bearing Precautions Comments NWB b/l LEs, strict elevation LEs Treatment Number PT 1 Living Environment Patient population Adult Functional Level Prior Prior Functional Level Comment pt lives with spouse in 1 level home. 2 MELISSA w/ out rails but will be installing ramp today/tomorrow. Shower stall with lip and HHSH. Has recliner chair she typically sleeps in but also has high standard bed she plans to use on DC. Self-Care Activity/Exercise/Self-Care Comment pt typically independent w/out AD. Has rollator walker at home and was using immediately after injury. + falls after injury. works. Was going to have TKA in September 2018 Vital Signs Heart Rate 74 BP 154/76 SpO2 94 % O2 Device RA Cognitive Assessment/Intervention Additional Documentation Cognitive Assessment Interventions (Group) Cognitive Assessment Interventions Behavior/Mood Observations (Cognitive) alert;cooperative Orientation Status (Cognitive) oriented x 4 Attention (Cognitive) WNL/WFL Pain Scale/Rating Pain Assessment Scale Numbers (Numeric Rating Pain Scale) Pain Level 10 Pain Assessment Numbers/Faces/Word Pain Body Location - Side Right Pain Body Location - Orientation lower Pain Body Location leg Frequency constant ROM (Range of Motion) Additional Documentation General Assessment (Group) General Range of Motion no range of motion deficits identified General Range of Motion Detail WFLS except LEs not formally assessed 2/2 splinting MMT (Manual Muscle Testing) Additional Documentation General Assessment (Group) General Manual Muscle Testing Assessment Detail WFLS except LEs not formally assessed 2/2 splinting.Able to wiggle toes b/l with L > R General Assessment General Manual Muscle Testing Assessment no strength deficits identified Mobility Assessment/Training Additional Documentation Bed Mobility Assessment/Treatment (Group);Transfer Assessment/Treatment (Group);Wheelchair Training/Management (Group) Bed Mobility Assessment/Treatment Scoot/Bridge [place] (Bed Mobility) conditional independence Vreios-lo-Fhu [place] (Bed Mobility) conditional independence Ced-xr-Nllxdr [place] (Bed Mobility) conditional independence Safety Issues (Bed Mobility) decreased use of legs for bridging/pushing Impairments (Bed Mobility) pain;ROM (range of motion) decreased Comment (Bed Mobility) incr time/effort to/from EOB but no physical assistance, NWB maintained throughout, good SLR b/l LEs Transfer Assessment/Treatment Bed-Chair [place] (Transfers) supervision required;conditional independence (initial supervision progressing to ind) Vgo-Aqmko-Zir Assistive Device (Transfers) slide board [place] (Toilet Transfers) supervision required;conditional independence Assistive Device (Toilet Transfers) bedside commode;barriatric commode (slide board, drop arm commode) Maintain Weight Bearing Status (Transfers) able to maintain weight bearing status Impairments (Transfers) pain;ROM (range of motion) decreased;strength decreased Comment (Transfers) initial set up and cuing for use of SB needed. Good carryover with repeated transfer trials. Used SB from bed > commode on L side. back to bed. then to W/C. transfers in both directions with supervision/set up progressing to cond ind. Occasional cues to protect fingers Wheelchair Training/Management Transfer Type (Wheelchair) lateral transfer Transfer Type Comment (Wheelchair) slideboard Task Training (Wheelchair) wheel lock management;leg rest management;armrest management Task Training Comment (Wheelchair) initial cuing for education on brakes, arm rests, and leg rests plus removal for transfers. Progressing to cond ind Propulsion Training (Wheelchair) backward propulsion;forward propulsion;turning wheelchair;moving through doorways;steering wheelchair Propulsion Training Comment (Wheelchair) min A for very narrow spaces but otherwise independent in all directions. Fatigued after long distance in UEs Distance Propelled in Feet (Wheelchair) 300+ feet Motor Skills/Interventions Additional Documentation Balance Skills Training (Group) Balance Skills Training Training Strategies (Balance) EOB ind Sitting Balance: Static good balance Sitting Balance: Dynamic good balance Sensory Assessment/Intervention Additional Documentation General Sensory Assessment (Group) General Sensory Assessment Sensory General Assessment no sensation deficits identified (intact sensation b/l toes) Plan of Care Review Plan Of Care Reviewed With patient;spouse Progress improving Clinical Impression Therapy Frequency evaluation only (safe for DC home pending equipment) Anticipated Equipment Needs at Discharge bedside commode;sliding board;wheelchair (drop arm commode, elevating leg rests) Anticipated Discharge Disposition home with home health;home with assist Plan of Care - Ori Bates OT - 09/17/2018 11:43 AM EDT Occupational Therapy Evaluation Pertinent History of Current Problem: S/P ORIF bilateral foot fractures, 09/16/18 (Gitajn) Precautions/Restrictions: fall, weight bearing Precautions Comments: NWB BLE Assessment: Pt has been seen for occupational therapy evaluation, please refer to associated flowsheet data listed below for details. Jenae La presents with the following performance skill deficits and client factors: pain, ROM, strength, the ability to stand due to NWB BLE. These performance deficits have led to activity limitations and participation restrictions in the following areas of occupation: dressing, bathing, grooming, toileting, mobility, transferring, rest/sleep, home management,roles/routines, leisure, driving, community mobility, and social participation. However, despite thedeficits listed above pt demonstrates the ability to perform bed mobility, toileting, LB dressing, and funcitonal mobility w/ the use of slide board, bedside commode, and a wheelchair w/ elevating leg rests. Pt educated on DME needed for safe discharge home, modified technique LB dressing, safety, andbathing. Anticipate that pt will return home with assistance from her and friends once all DME (slide board, drop arm bedside commode, and a wheelchair w/ elevating leg rests) is in place and pt is medically ready. Do not anticipate further OT needs while hospitalized. Staff Recommendations: ?? Slide board transfer w/ supervision ?? Encourage OOB activity and participation in all self care tasks Anticipated Discharge Disposition: home with assist, home with home health(PT) Pager: [phone] Ori Bates, OT 09/17/2018 Occupational Therapy Rehabilitation Department 2017 OT Evaluation Code Rationale: ?? Diagnosis & Pertinent Co-Morbidities affecting Plan of Care: see PMHx ?? Occupational Profile & Client History: Brief Expanded Extensive x ?? Assessment of Occupational Performance: 1-3 performance deficits 3-5 performance deficits x 5 + performance deficits ?? Clinical Decision Making: Low Moderate High x Clinical decision making of moderate complexity using standardized patient assessment instrument andmeasurable assessment of functional outcome. 09/17/18 1143 Rehab Evaluation Document Type evaluation Total Evaluation Minutes, Occupational Therapy 50 (eval + sc) Patient Effort excellent Symptoms Noted During/After Treatment increased pain;fatigue General Information Patient Profile Review yes Patient/Family/Caregiver Comments/Observations I'm going straight home, I'm not going to rehab. General Observations of Patient Pt semi-supine in bed pre/post therapy, call valderrama in reach Pertinent History of Current Problem S/P ORIF bilateral foot fractures, 09/16/18 (Gitajn) Hearing Precautions/Limitations WFL Precautions/Restrictions fall;weight bearing Precautions Comments NWB BLE Treatment Number OT 1 Living Environment Patient population Adult Living Environment Living Environment Comment Pt lives w/ her in a home w/ 2 MELISSA however her will be building a ramp tonight. 1 level once in, bathroom no handicap accesible. Pt plans to sleep in flat bedvs recliner love seat. works however 15/12 assist will be available. Functional Level Prior Prior Functional Level Comment Pt fully independent w/ ADLs modified technique, pt reports she had been mobilizing w 4WW and had multiple falls s/p foot fxs prior to seeking medical attention. Self-Care Dominant Hand right Vital Signs Heart Rate 74 BP 154/76 SpO2 94 % O2 Device RA Vision Assessment/Intervention Additional Documentation (WFL w/ bifocals) Cognitive Assessment/Intervention Additional Documentation Cognitive Assessment Interventions (Group) Cognitive Assessment Interventions Behavior/Mood Observations (Cognitive) alert;cooperative Orientation Status (Cognitive) oriented x 4 Attention (Cognitive) WNL/WFL Follows Commands/Answers Questions (Cognitive) 100% of the time Pain Scale/Rating Pain Assessment Scale Numbers (Numeric Rating Pain Scale) Pain Level 10 Pain Assessment Numbers/Faces/Word Pain Body Location - Side Right Pain Body Location foot ROM (Range of Motion) Additional Documentation (BUE WFL ) Bed Mobility Assessment/Treatment Impairments (Bed Mobility) pain;ROM (range of motion) decreased;strength decreased Scoot/Bridge [place] (Bed Mobility) conditional independence Ismxnw-ix-Yau [place] (Bed Mobility) conditional independence Fte-lq-Desngl [place] (Bed Mobility) conditional independence Comment (Bed Mobility) Pt performeed bed mobility w/ increased time and pain. Transfer Assessment/Treatment [place] (Toilet Transfers) supervision required;conditional independence Impairments (Transfers) pain;ROM (range of motion) decreased;strength decreased Oub-Opksc-Qze Assistive Device (Transfers) slide board Bed-Chair [place] (Transfers) supervision required;contact guard assist Comment (Transfers) Pt requied cues for safety and set up initially. Pt cued for use of BUE during transfer and to avoid fingers under slide board, pt verbalized and demonstrated understanding. Pt transfered bed>commmode>bed>w/c>bed. Pt performing w/ conditional i by end of session. Assistive Device (Toilet Transfers) bedside commode (drop arm commode, slide board) Wheelchair Training/Management Transfer Type Comment (Wheelchair) slideboard Distance Propelled in Feet (Wheelchair) 300+ Transfer Type (Wheelchair) lateral transfer ADL Assessment/Intervention IADL Assessment/Training: Comment Pt educated on having set up meals and drink w/ in reaching distance Additional Documentation Bathing Assessment/Training (Group);Grooming Assessment/Training (Group);Lower Body Dressing Assessment/Training (Group);Toileting Assessment/Training (Group);IADL Assessment/Training: Comment (Row) Bathing Assessment/Training Comment (Bathing) Pt educatred on tub trasnfer bench if bathroom is renovated however pt plans to sponge bath once home initially. Lower Body Dressing Assessment/Training Assistive Devices (LB Dressing) butter printer Position (LB Dressing) sitting [place] Level (LB Dressing) conditional independence Impairments (LB Dressing) pain;ROM (range of motion) decreased;strength decreased Comment (LB Dressing) Pt donned pants independently, w/ slight increase in time. Toileting Assessment/Training Position (Toileting) sitting [place] Level (Toileting) conditional independence Impairments (Toileting) ROM (range of motion) decreased;pain;strength decreased Comment (Toileting) Pt performed slide board transfer to commoe and perofrmed josiane-care independently. General Sensory Assessment Sensory General Assessment (pt reports no sensation deficits) Plan of Care Review Plan Of Care Reviewed With patient;spouse Progress improving Clinical Impression Criteria for Skilled Therapeutic Interventions Met treatment indicated Rehab Potential good, to achieve stated therapy goals Therapy Frequency evaluation only Anticipated Equipment Needs at Discharge wheelchair;bedside commode;sliding board (elevating leg rest, drop arm commode) Anticipated Discharge Disposition home with assist;home with home health (PT) Plan of Care - Fely Freeman RN - 09/17/2018 3:19 AM EDT Problem: Patient Care Overview Goal: Plan of Care Review Outcome: Ongoing (Interventions Implemented as Appropriate) 09/15/18 0535 09/16/182010 Coping/Psychosocial Plan Of Care Reviewed With -- patient;spouse Plan of Care Review Progress no change -- OUTCOME EVALUATION NOTE: OUTCOME SUMMARY: Pt A&O, VSS, lung sounds dim and equal bilaterally. Pt has cast+MARICRUZ wrap to BLE's, elevated on pillows. Patel remains in tact and draining adequately. Pain controlled with around the clock dosing. Pt spouse at bedside, pt resting between care. Pt refusing IV Keppra, stating it makes her nauseous and she does not have seizures, education provided, team aware. Patient progressing towards d/c goals appropriately at this time. Patients pain adequately controlled, see MAR for medications given. Will continue to monitor and help patient reach d/c goals. PLAN MOVING FORWARD: Pain control Mobilize D/c planning INDIVIDUALIZED FALL PREVENTION: Patient is currently a high risk to Fall. Patient educated on bed/chair alarm, demonstrates proper use of call valderrama and verbalizes understanding of fall preventions implemented. Patient-specific fall risk factors per assessment: [current deficits]: BLE weakness, drains, Pain, Medications, Hospital Environment. Assistance [level of assistance required for transfers and ambulation]: 1-2 assist Supervision [direct monitoring required during toileting and ADLs]: assistance with ADL's Surveillance [continuous indirect monitoring]: Patel output, Masimo, Purposeful Rounding, Bedside Report Patient-specific fall prevention interventions for sensory deficits provided, if applicable: [X] N/A CPG GOAL OUTCOME EVALUATION: Goal: Fall Prevention-Safe Patient Handling Outcome: Ongoing (Interventions Implemented as Appropriate) 09/16/182010 Burks Fall Risk History of Falling 25 Secondary Diagnosis 15 Ambulatory Aids 0 Intravenous Therapy/Heparin/Saline Lock 20 Gait/Transferring 20 Mental Status 0 Score 80 OTHER Burks Fall Risk High Restraint Interventions Safety Promotion/Fall Prevention activity supervised;nonskid shoes/slippers when out of bed;safety round/check completed Positioning Body Position supine, head elevated Activity Activity Type activity adjusted per tolerance Activity Assistance Provided assistance, 2 people Assistive Device Utilized other (see comments) (slide board ) Goal: Infection Control Outcome: Ongoing (Interventions Implemented as Appropriate) 09/16/182010 Safety Interventions Isolation Precautions standard precautions maintained Infection Prevention rest/sleep promoted;single patient room provided Coping Strategies Supportive Measures verbalization of feelings encouraged;active listening utilized Goal: Discharge Needs Assessment Outcome: Ongoing (Interventions Implemented as Appropriate) 09/15/18521 Discharge Needs Assessment Equipment Needed After Discharge wheelchair Discharge Disposition still a patient Problem: Skin Integrity Impairment, Risk/Actual (Adult) Goal: Identify Related Risk Factors and Signs and Symptoms Related risk factors and signs and symptoms are identified upon initiation of Human Response Clinical Practice Guideline (CPG) Outcome: Ongoing (Interventions Implemented as Appropriate) 09/15/18520 Skin Integrity Impairment, Risk/Actual Skin Integrity Impairment, Risk/Actual: Related Risk Factors edema;immobility;traumatic injury Signs and Symptoms (Skin Integrity Impairment) edema Goal: Skin Integrity/Wound Healing Patient will demonstrate the desired outcomes by discharge/transition of care. Outcome: Ongoing (Interventions Implemented as Appropriate) 09/15/18520 Skin Integrity Impairment, Risk/Actual (Adult) Skin Integrity/Wound Healing making progress toward outcome Consult Note - Abdirahman Enamorado MD - 09/16/2018 3:08 PM EDT Neurology Consult History and Physical Patient name: Jenae La Date of : 1965 PCP: LILLY Gaitan CC: Does patient have seizures or require further workup from a seizure perspective. HPI: Jenae La is a 53 y.o. female with past medical history significant for type 2 diabetes, fibromyalgia, chronic opiate use, and obstructive sleep apnea (on CPAP at home) who presents as a transferto the orthopedic service from [facility] for bilateral complex foot fractures. Per discussion with the consulting provider, patient was initially admitted to [facility] for bilateral foot fractures. This was in the setting of multiple falls in the previous days leading up to her admission. She was also noted to strike her head multiple times during these falls. In conversation with the patient's at [facility], there was some discussion of some trembling, incontinence, and rhythmic motion of one arm (not noted to be left or right) and patient was started on Keppra at the outside hospital. CSF studies were reviewed in chart and noted to be unremarkable (CSF culture and other viral studies were not noted in chart) History of Status Epilepticus: [] Tongue biting: [] Incontinence: [x] Fecal - not sure if it was because patient had to go to bathroom around that time- also of note patient notes baseline fecal incontinence and wears a depends at baseline Post-ictal psychosis: [] Risk factors for epilepsy: Head trauma: [x] after her falls Meningoencephalitis: [] complications: [] Complex febrile seizures: [] Family history of epilepsy: [] Risk factors for nonepileptic seizures: (History negative for greater than three seizures types, pre-ictal headache, ictal eye closure, ictal crying, multiple AEDs, seizures greater than 5 minutes, prior psych treatment, hx of sz in close friend/relative, h/o suicide attempt, greater than 12 drinks per week, fibromyalgia, malpractice lawsuit, sexual or physical abuse) Current AEDS: Keppra which was started several days ago Psychiatric History: Past Medical History: Past Medical History: Diagnosis Date ??? Arthritis ??? Chronic pain 09/15/2018 ??? Gastroesophageal reflux 09/15/2018 ??? Hyperlipidemia 09/15/2018 ??? Hypertension 09/15/2018 ??? LORRI on CPAP 09/15/2018 ??? Type 2 diabetes mellitus without complication, with long-term current use of insulin 09/15/2018 Medications: Medications Prior to Admission Medication Sig Dispense Refill Last Dose ??? hydroCODone-acetaminophen (VICODIN) 5-500 mg per tablet Take 1 tablet by mouth 2 times daily. 09/14/2018 at Unknown time ??? CIS Free Text Med - Albuterol 09/14/2018 at Unknown time ??? FLUTICASONE/SALMETEROL (ADVAIR DISKUS INHL) Past Week at Unknown time ??? MEPERIDINE HCL (DEMEROL ORAL) Unknown at Unknown time Allergies Allergen Reactions ??? Sulfa (Sulfonamide Antibiotics) ??? Tape, Occlusive Adhesive No family history on file. Social History Social History Narrative ??? Not on file Review of systems: Constitutional: No fevers or chills Eyes: No vision changes, no diplopia, no blurry vision ENT: No rhinorrhea or pharyngitis, no meningismus CV: No chest pain or palpitations Resp: No cough, no shortness of breath GI: No nausea, vomiting, diarrhea or constipation : No dysuria, no incontinence Heme: No bleeding or bruising Endo: No diabetes or thyroid disease Neuro: See HPI Psych: No depression, normal sleep [x] Review of systems otherwise negative Physical Exam: Vitals: Temp: [36.2 ??C (97.2 ??F)-37.3 ??C (99.1 ??F)] Heart Rate: [60-83] Resp: [15-19] BP: (110-167)/(62-109) SpO2: [92 %-98 %] Heart Rate from SpO2: [66 bpm-86 bpm] Gen: Patient of apparent stated age, well nourished, well developed, awake, alert, NAD HEENT: Supple, no meningismus, no carotid bruit, no occipital tenderness CV: + S1, S2, RRR, no murmur Resp: CTA B/L with good respiratory effort Abd: +normoactive bowel sounds, soft, nontender, nondistended Ext: bilateral feet wrapped in bandage Neuro Exam: MS: AAOx4, clear language, no dysarthria, follows commands CN: PERRL, EOMI, visual ford full Facial sensation intact, no facial asymmetry Hearing intact to voice Palate elevates symmetrically, tongue protrudes midline SCM and trap strength intact Motor: Normal bulk and tone. UE: 5/5 R, 5/5 L Arm abduction at shoulder 5/5 R, 5/5 L Elbow extension 5/5 R, 5/5 L Elbow flexion 5/5 R, 5/5 L Radio Interference Trouble Shooter LE: Deferred due to her pain Sensation: Intact to light touch throughout, even at her toes Reflexes: DTRs deferred Toes - R down, L down Coordination: Finger to nose intact, no dysmetria Rapid alternating movements & finger tapping smooth and symmetric Gait: not assessed due to surgery today Labs: Recent Results (from the past 24 hour(s)) POCT Glucose Result Value Ref Range POC Glucose 173 65 - 199 mg/dL POCT Glucose Result Value Ref Range POC Glucose 100 65 - 199 mg/dL POCT Glucose Result Value Ref Range POC Glucose 143 65 - 199 mg/dL POCT Glucose Result Value Ref Range POC Glucose 126 65 - 199 mg/dL Urinalysis with reflex Culture Result Value Ref Range Glucose UA Negative Negative mg/dL Protein UA Negative Negative mg/dL Bilirubin UA Negative Negative mg/dL Urobilinogen UA Normal Normal mg/dL pH UA 6.0 5.0 - 8.0 Blood UA Negative Negative mg/dL Ketones UA 5 (A) Negative mg/dL Nitrite UA Negative Negative Leukocytes UA Negative Negative mcL Appearance UA Clear Clear Spec [place] UA 1.012 1.002 - 1.030 Color UA Straw Yellow Culture Reflexed No Urine Hold Result Value Ref Range Urine Hold Sample in lab. POCT Glucose Result Value Ref Range POC Glucose 131 65 - 199 mg/dL POCT Glucose Result Value Ref Range POC Glucose 126 65 - 199 mg/dL Diagnostic Tests and Imaging: MRI BRAIN FROM OSH REVIEWED Assessment: Jenae La is a 53 y.o. female with past medical history significant for type 2 diabetes, fibromyalgia, chronic opiate use, and obstructive sleep apnea (on CPAP at home) who presents as a transferto the orthopedic service from [facility] for bilateral complex foot fractures. Discussion with Jenae and her significant other about her initial presentation makes us less concerned for seizure activity. However, it is hard to say what the nurses at [facility] actually saw but they describe twitching of the jaw and hand (they do not note if it was unilateral or contralateral to each other). She is on a rather large dose of keppra for someone who was newly diagnosed with seizure activity. In her case we believe we can hold her Keppra, starting tomorrow morning (09/17) and place her onEEG (likely routine if she is to be discharged tomorrow) and see if she has any abnormal activity. We will see her again in the morning for further recommendations Plan: -HOLD Keppra starting with AM dose on 09/07 -Routine vs Continuous EEG - will discuss with primary team about when patient is to be discharged Abdirahman Enamorado MD Neurology Resident - PGY-3 General Neurology Consults Team Pager #[phone] 09/16/18 Associated attestation - German Gu III, MD - 09/17/2018 7:43 AM EDT Neurology Attending Attestation I saw and evaluated Jenae La with Dr. Enamorado, neurology resident. I have reviewed the medical records and the patient's history and I agree with the details as written. My physical examination confirms the findings. The assessment and plan were formulated in discussion with me and I agree with them as documented. German Gu III, MD Pager: [phone] 7:42 AM 09/17/2018 Op Note - Aparna Reed MD - 09/16/2018 2:02 PM EDT [facility] Operative Note Patient Name: Jenae La : [id number] MR#: [id number] Case Date: 09/16/2018 Surgeon: Surgeon(s) and Role: * Aparna Reed MD - Primary * Noy Zamora MD - Resident * Sanket Freeman MD - Resident Preoperative diagnosis: Right 1st TMT (lisfranc) fracture dislocation, right 2nd TMT fracture dislocation, right 3rd TMT fracture dislocation, right 4th TMT fracture dislocation, right 5th TMT fracturedislocation, right great toe phalanx fracture, right 2nd toe phalanx fracture, right cuboid fracture, right distal fibula fracture, left 2nd metatarsal fracture, left 3rd metatarsal fracture, left 4th metatarsal fracture, left cuboid fracture. Postoperative diagnosis: Right 1st TMT (lisfranc) fracture dislocation, right 2nd TMT fracture dislocation, right 3rd TMT fracture dislocation, right 4th TMT fracture dislocation, right 5th TMT fracture dislocation, right great toe phalanx fracture, right 2nd toe phalanx fracture, right cuboid fracture, right distal fibula fracture, left 2nd metatarsal fracture, left 3rd metatarsal fracture, left 4thmetatarsal fracture, left cuboid fracture. Procedure(s) (LRB): ORIF METATARSAL FX, EACH (WRVU 7.44) (Bilateral) MODIFIER LOCKING SMALL FRAGMENT SYNTHES (N/A) MODIFIER 4.0 CANNULATED SCREW SYNTHES (N/A) MODIFIER LOCKING MINI FRAGMENT SYNTHES (N/A) OPEN TREAMENT TARSOMETATARSAL JOINT DISLOCATION (WRVU 10.7) (Right) PERCUTANEOUS PINNING, TARSOMETATARSAL JOINT DISLOCATION (WRVU 5.09) (Right) PERCUTANEOUS PINNING, METATARSAL FX, EA. (WRVU 3.6) (Left) ORIF GREAT TOE (WRVU 7.44) (Right) CLOSED REDUCTION TARSAL BONE FX (WRVU 3.24) (Left) ORIF Metatarsal (#2) ORIF Metatarsal (#3) Open treatment tarsometatarsal joint dislocation (#2) Open treatment tarsometatarsal joint dislocation (#3) Open treatment tarsometatarsal joint dislocation (#4) Open treatment tarsometatarsal joint dislocation (#5) Closed treatment 2nd toe phalanx Closed treatment right cuboid Closed treatment right fibula Closed treatment left cuboid Findings: RIGHT SIDED OPERATIVE FINDINGS 1) Great toe proximal phalanx intra-articular, comminuted fracture 2) 2nd toe proximal phalanx intra-articular, comminuted fracture 3) Lis franc fracture with dislocation of digits 1-5 Anesthesia: General Estimated Blood Loss: 20 cc Specimens removed during surgery: None Drains: None Surgical Closure: Primary Closure - skin incision is completely closed without any wires, kj, drains or other devices Disposition: awakened from anesthesia, extubated and taken to the recovery room in a stable condition, having suffered no apparent untoward event. Condition: doing well without problems (Please see the Surgical Encounter Summary for any Implant and Specimen details pertinent to this patient.) HPI/Surgical Indications: The patient is a 53-year-old lady with bilateral foot injuries. Please seepreviously dictated operative note for further indication details on the left foot procedure details. Procedure Description: Preoperative steps as described in previously dictated note. We placed a thigh tourniquet, and elevated to 250 mmHg. He remained there for 78 minutes. To address the right foot fractures, we began with the Lisfranc injury. We made an incision between the first and second metatarsal bases, dissecting down to the joint. At the first tarsometatarsal joint, the joint was subluxed laterally. This was reduced, and fixed with a K wire. We then addressed the second tarsometatarsal joint. We used a [id number] clamp to reduce it, and then fixed this reduction with a K wire. We assessed our reduction of the first and second tarsometatarsal joints, and found the reduction to be adequate under fluoroscopy. We then placed a cortical screw in a dorsal to plantar approach to secure thedorsal tarsometatarsal ligament, which had avulsed from the medial cuneiform. After securing this, we then placed a 2.0 mm locking plate over the first TMT joint. Satisfied, we removed the K wires and addressed the second TMT joint. Similarly, we placed a 2.0 mm locking plate over the second tarsometatarsal joint. We removed the K wires and assessed our reduction. Finding it adequate, we then addressed the third through fifth test tarsometatarsal joints. Using a 2.0 mm K wire in a percutaneous fashion, we secured the third through fifth tarsometatarsal joints. We then irrigated and closed our Lisfranc surgical wound in layers using Vicryl and nylon. We then turned our attention to the proximal phalanx of the great toe. We made an incision dorsally, and dissected down, careful to avoid the extensor tendon. We were able to open up the fracture by lifting a piece of the articular surface. We then used a [place] to bring the impacted articular surface down to anappropriate position. This was secured with a K wire. Bone graft was then placed into the void. The removed bone piece from before was placed back into position and secured with a K wire. A 2.0 mm locking plate was placed over this fracture, and position confirmed with fluoroscopy. The K wires were rem anais, and incision was irrigated and closed in layers using Vicryl and nylon. The patient was placed in a well-padded splint awakened from anesthesia, and taken to PACU in no distres Infection Bundle used? No Number of fracture regions: 4 ?? Periarticular fractures: Complete articular (type C) ?? Diaphyseal fractures: Simple (type A) ?? Prep solutions applied PRIOR to final prep: CHG in alcohol solution and Alcohol ?? FINAL surgical prep solution: ChloraPrep ?? Was the fracture definitively fixed/managed during this operation? Yes ?? If there is a wound, was the wound managed definitively during this operation? No- no wound management performed during this operation/no wound associated with fracture ?? Was the wound re-prepped during or after the case? None ?? Type of closure for all wounds (select all that apply): Primary closure ?? Was negative pressure wound VAC therapy applied, exchanged or removed? No ?? Were local antibiotcs placed into the wound? None ?? What was the deepest layer of tissue debrided? N/A ?? Was irrigation solution used? No saline only ?? Closed fracture characteristics: Skin contusion or crush injury ?? Closed fracture bone loss: None ?? Open fracture Gustilo classification: NOT OPEN FRACTURE Attestation: Case Date: 09/17/18 ?? I was present and I participated during the entire procedure (does not need to include opening and closing). ?? Aparna Reed MD 09/17/18 Op Note - Aparna Reed MD - 09/16/2018 1:54 PM EDT [facility] Operative Note- Left foot This patient underwent bilateral procedures. This operative note is for the left foot. Patient Name: Jenae La : [id number] MR#: [id number] Case Date: 09/16/2018 Surgeon: Surgeon(s) and Role: * Aparna Reed MD - Primary * Noy Zamora MD - Resident * Sanket Freeman MD - Resident Preoperative diagnosis: Right 1st TMT (lisfranc) fracture dislocation, right 2nd TMT fracture dislocation, right 3rd TMT fracture dislocation, right 4th TMT fracture dislocation, right 5th TMT fracturedislocation, right great toe phalanx fracture, right 2nd toe phalanx fracture, right cuboid fracture, right distal fibula fracture, left 2nd metatarsal fracture, left 3rd metatarsal fracture, left 4th metatarsal fracture, left cuboid fracture. ?? Postoperative diagnosis: Right 1st TMT (lisfranc) fracture dislocation, right 2nd TMT fracture dislocation, right 3rd TMT fracture dislocation, right 4th TMT fracture dislocation, right 5th TMT fracture dislocation, right great toe phalanx fracture, right 2nd toe phalanx fracture, right cuboid fracture, right distal fibula fracture, left 2nd metatarsal fracture, left 3rd metatarsal fracture, left 4thmetatarsal fracture, left cuboid fracture. ?? Procedure(s) (LRB): ORIF METATARSAL FX, EACH (WRVU 7.44) (Bilateral) MODIFIER LOCKING SMALL FRAGMENT SYNTHES (N/A) MODIFIER 4.0 CANNULATED SCREW SYNTHES (N/A) MODIFIER LOCKING MINI FRAGMENT SYNTHES (N/A) OPEN TREAMENT TARSOMETATARSAL JOINT DISLOCATION (WRVU 10.7) (Right) PERCUTANEOUS PINNING, TARSOMETATARSAL JOINT DISLOCATION (WRVU 5.09) (Right) PERCUTANEOUS PINNING, METATARSAL FX, EA. (WRVU 3.6) (Left) ORIF GREAT TOE (WRVU 7.44) (Right) CLOSED REDUCTION TARSAL BONE FX (WRVU 3.24) (Left) ORIF Metatarsal (#2) ORIF Metatarsal (#3) Open treatment tarsometatarsal joint dislocation (#2) Open treatment tarsometatarsal joint dislocation (#3) Open treatment tarsometatarsal joint dislocation (#4) Open treatment tarsometatarsal joint dislocation (#5) Closed treatment 2nd toe phalanx Closed treatment right cuboid Closed treatment right fibula Closed treatment left cuboid Findings: Displaced second and third metatarsal neck fractures. Displaced and rotated fragment of articular cartilage at the fourth metatarsal base. Unstable fourth TMT joint. Anesthesia: General Estimated Blood Loss: 10cc (left lower extremity) Tourniquet Time: 77 minutes (left lower externally) Specimens removed during surgery: None Drains: None Surgical Closure: Primary Closure - skin incision is completely closed without any wires, kj, drains or other devices Disposition: awakened from anesthesia, extubated and taken to the recovery room in a stable condition, having suffered no apparent untoward event. Condition: doing well without problems (Please see the Surgical Encounter Summary for any Implant and Specimen details pertinent to this patient.) HPI/Surgical Indications: Jenae La is a 53 y.o. female who suffered bilateral complex foot injuries including fractures and dislocations. She was seen at [facility] and transferred to [facility] for further care. We discussed the risks and benefits of undergoing operative fixation of her bilateral foot injuries, and the patient agreed to proceed. Procedure Description: The patient was met and identified preoperatively. Bilateral lower extremity's were marked to indicate the operative sites. She underwent a block by the anesthesia team bilaterally. The patient was brought to the operating room and positioned supine on the operative table. General anesthesia was induced by the anesthesia team. The bilateral lower extremities were prepped with chlorhexidine wash, alcohol, and ChloraPrep after her splints were removed. Bilateral thigh-high tourniquets were also placed. The extremities were draped in typical sterile fashion. We held a timeout for safe surgery and all parties agreed to proceed. Patient received preoperative IV antibiotics for prophylaxis. See separately dictated operative note for right foot procedures. On the left foot, we began by making a 2 cm incision between the second and third metatarsals distally. We continued through subcutaneous tissues using tenotomy scissors. The second toe extensor tendons were identified and mobilized. We approach the third metatarsal from the lateral aspect of the exten sors. The third metatarsal fracture was exposed using a [place]. A [id number]-[id number] clamp was used to control the distal fragment. A K wire was passed in an antegrade fashion through the second metatarsal head and out through the skin. The fracture was then reduced under direct visualization and the same K wire was advanced in a retrograde fashion down the intramedullary canal of the third metatarsal. X-rays confirmed appropriate alignment. The wire was cut near the skin. Attention was then turned to the second metatarsal fracture. We approach this to the medial side of the second toe extensors. Fracture was exposed using a Buffalo. A [id number]-onxvs clamp was used to control the distal fragment. A K wire was driven down the distal fragment and out the second metatarsal head all the way through the skin. The fracture was then reduced and the wire was passed retrograde down the intramedullary canal of the second metatarsal. Alignment was confirmed to be adequate on fluoroscopy. The wire was cut near the skin. This wound was irrigated. 2-0 Vicryl was used to close the subcutaneous tissue. Nylon was used to close the skin. Due to swelling in the foot, we elected to go up with the tourniquet. We exsanguinated the left lower extremity using an Esmarch bandage and inflated the thigh-high tourniquet. The total tourniquet time was 77 minutes for the left lower extremity. We then turned our attention to the base of the fourth metatarsal. We made a 4 cm incision starting over the fourth TMT joint and extending distally over the fourth metatarsal. We spread through subcutaneous tissues using tenotomy scissors. It became readily apparent that the articular surface of the base of the fourth metatarsal had been flipped and was pointing superiorly. We were able to reduce this in place a pin across it into the distal aspect of the fourth metatarsal. Once reduced, we placed a small T plate and pinned it in place. Once happy with her alignment, we placed 2 locking screws in the proximal holes of the plate and then placed cortical screws into the metatarsal shaft. We confirme d the alignment radiographically and were happy. Even after fixation of the fracture, the fourth TMTjoint remained unstable. Given this, we elected to place a pin through the fourth metatarsal beginning distally and extending across the fourth TMT joint. This held the fourth TMT joint reduced. We irrigated the incision. Subcutaneous tissues were closed using 2-0 Vicryl suture. Skin was closed using nylon suture. All counts were correct at the conclusion of the case. The wounds were dressed with Xeroform, gauze,ABDs. Pins were wrapped with Xeroform and covered with gauze. A well-padded splint was placed. The tourniquet was let down. The patient was transferred to the hospital bed and transferred to the recovery room having suffered no apparent untoward event. Post-operative plan: Nonweightbearing bilateral lower extremities. Lovenox for DVT prophylaxis. Workwith PT/OT and likely rehab planning. Infection Bundle used? N/A Implant Name Type Inv. Item Serial No. Scene Painter Lot No. LRB No. Used Action PIN,KWIRE,TROC 1 ED,NS,[id number] ([id number]) (AutoReq) - [id number] IMPLANTS PIN,KWIRE,TROC 1 ED,NS,[id number] ([id number]) (AutoReq) [facility] [place] Im[place]ed and Explanted SCREW,CRTX,STAP,T8,2.4X16MM ([id number]) - [id number] IMPLANTS SCREW,CRTX,STAP,T8,2.4X16MM ([id number]) [facility] [place] Im[place]ed SCREW,CRTX,STAP,T8,2.4X26MM ([id number]) - [id number] IMPLANTS SCREW,CRTX,STAP,T8,2.4X26MM ([id number]) [facility] [place] Im[place]ed SCREW,CRTX,STAP,T8,2.4X22MM ([id number]) - [id number] IMPLANTS SCREW,CRTX,STAP,T8,2.4X22MM ([id number]) [facility] [place] Im[place]ed SCREW,SLFTP,LCK,STAR,2.4X12MM ([id number]) - [id number] IMPLANTS SCREW,SLFTP,LCK,STAR,2.4X12MM ([id number]) [facility] [place] Implanted SCREW,LCK,STAP,STAR,2.4X6MM ([id number]) - [id number] IMPLANTS SCREW,LCK,STAP,STAR,2.4X6MM ([id number]) [facility] [place] Implanted SCREW,LCK,STAP,STAR,2.4X18MM (2656959) - [id number] IMPLANTS SCREW,LCK,STAP,STAR,2.4X18MM ([id number]) [facility] [place] Implanted SCREW,CRTX,STAP,STRDRV,2X9MM (1969459) - [id number] IMPLANTS SCREW,CRTX,STAP,STRDRV,2X9MM ([id number]) [facility] [place] Implanted SCREW,CRTX,STAP,STAR,2X24MM ([id number]) - [id number] IMPLANTS SCREW,CRTX,STAP,STAR,2X24MM (6390349) [facility] [place] Wasted SCREW,CRTX,STAP,STAR,2X28MM (8175705) - [id number] IMPLANTS SCREW,CRTX,STAP,STAR,2X28MM ([id number]) [facility] [place] Implanted SCREW,CRTX,STAP,STAR,2X18MM (9158636) - [id number] IMPLANTS SCREW,CRTX,STAP,STAR,2X18MM ([id number]) [facility] [place] Implanted SCREW,LCK,STAP,STAR,2X14MM ([id number]) - [id number] IMPLANTS SCREW,LCK,STAP,STAR,2X14MM ([id number]) [facility] [place] Implanted SCREW,LCK,STAP,STAR,2X18MM ([id number]) - [id number] IMPLANTS SCREW,LCK,STAP,STAR,2X18MM (5143629) [facility] [place] Implanted PLATE,LCP,7H,2.0X52MM (0036690) - [id number] IMPLANTS PLATE,LCP,7H,2.0X52MM (1044014) [facility]; [facility] Right 1 Implanted PLATE,CNDYLR,LCP,7H,2.4MM (7407650) (AutoReq) - [id number] IMPLANTS PLATE,CNDYLR,LCP,7H,2.4MM (0760520) (AutoReq) [facility] [place] Implanted BONE,CRUSHED,CANCELLOUS,10CC (4697543) (AutoReq) - [id number] IMPLANTS BONE,CRUSHED,CANCELLOUS,10CC ([id number]) (AutoReq) [facility] [phone] Right 1 Implanted PIN,KWIRE,TROC 1ED,NS,[id number] ([id number]) - [id number] IMPLANTS PIN,KWIRE,TROC 1ED,NS,3H105HI ([id number]) [facility] [place] Implanted and Explanted PIN,KWIRE,PLAIN,2,0.293P4IV,NS (2652427) - [id number] IMPLANTS PIN,KWIRE,PLAIN,2,0.725F4HV,NS (0384617) [employer] [facility] [employer] Left 3 Implanted PLATE,LCP,CNDYLR,7H-SHFT,2MM (6876954) - [id number] IMPLANTS PLATE,LCP,CNDYLR,7H-SHFT,2MM (4113547) [facility] [place] Implanted SCREW,LCK,STAP,STAR,2X12MM ([id number]) - [id number] IMPLANTS SCREW,LCK,STAP,STAR,2X12MM (8592315) [facility] Implanted SCREW,LCK,STAP,STAR,2X10MM (3648922) - [id number] IMPLANTS SCREW,LCK,STAP,STAR,2X10MM (1862383) [facility] Implanted SCREW,CRTX,STAP,STAR,2X12MM (2796549) - [id number] IMPLANTS SCREW,CRTX,STAP,STAR,2X12MM ([id number]) [facility] [place] Implanted SCREW,CRTX,STAP,STAR,2X14MM ([id number]) - [id number] IMPLANTS SCREW,CRTX,STAP,STAR,2X14MM ([id number]) [facility] [place] Implanted SCREW,CRTX,STAP,STAR,2X14MM ([id number]) - [id number] IMPLANTS SCREW,CRTX,STAP,STAR,2X14MM (0655460) [facility] [place] Implanted SCREW,VA,LCK,SLFTP,T6,2X22MM ([id number]) - [id number] IMPLANTS SCREW,VA,LCK,SLFTP,T6,2X22MM ([id number]) [email or web address] - [employer] Right 1 Implanted SCREW,VA,LCK,SLFTP,T6,2X18MM ([id number]) - [id number] IMPLANTS SCREW,VA,LCK,SLFTP,T6,2X18MM (1558084) [employer] Right 1 Implanted SCREW,VA,LCK,SLFTP,T6,2X16MM ([id number]) - [id number] IMPLANTS SCREW,VA,LCK,SLFTP,T6,2X16MM (9957518) [facility] [place] Implanted SCREW,CRTX,STAP,STAR,2X16MM (2887264) - [id number] IMPLANTS SCREW,CRTX,STAP,STAR,2X16MM ([id number]) [facility] [place] Implanted SCREW,CRTX,STAP,STAR,2X12MM ([id number]) - [id number] IMPLANTS SCREW,CRTX,STAP,STAR,2X12MM ([id number]) [facility] [place] 1 Implanted SCREW,CRTX,STAP,STRDRV,2X10MM ([id number]) - [id number] IMPLANTS SCREW,CRTX,STAP,STRDRV,2X10MM (3281765) [facility] [place] 1 Implanted GUIDEW,THRD,1.3N482LX (6511582) - [id number] IMPLANTS GUIDEW,THRD,1.9C928QT (5473441) [facility]; [facility] Right 3 Implanted Number of fracture regions: 4 Periarticular fractures: Complete articular (type C) Diaphyseal fractures: Simple (type A) Prep solutions applied PRIOR to final prep: CHG in alcohol solution and Alcohol FINAL surgical prep solution: ChloraPrep Was the fracture definitively fixed/managed during this operation? Yes If there is a wound, was the wound managed definitively during this operation? No- no wound management performed during this operation/no wound associated with fracture Was the wound re-prepped during or after the case? None Type of closure for all wounds (select all that apply): Primary closure Was negative pressure wound VAC therapy applied, exchanged or removed? No Were local antibiotcs placed into the wound? None What was the deepest layer of tissue debrided? N/A Was irrigation solution used? No saline only Closed fracture characteristics: Skin contusion or crush injury Closed fracture bone loss: None Open fracture Gustilo classification: NOT OPEN FRACTURE Attestation: Case Date: 09/17/18 ?? I was present and I participated during the entire procedure (does not need to include opening and closing). ?? Aparna Reed MD 09/17/18 Plan of Care - Lauren Perales, PT - 09/16/2018 8:40 AM EDT Physical Therapy Contact Note Patient to OR today. Will follow up for PT evaluation post operatively pending updated WB/activity orders. Will continue to follow up as appropriate during hospital course. Please page with any questions or concerns. Lauren Perales PT, DPT Pager: [phone] 09/16/18 Inpatient Rehabilitation Department Plan of Care - Nell Fitch RN - 09/16/2018 3:55 AM EDT Problem: Patient Care Overview Goal: Plan of Care Review OUTCOME EVALUATION NOTE: OUTCOME SUMMARY: Patient resting between care overnight. Alert and oriented x 4, VSS. Pain well controlled with scheduled and PRN medications, see MAR. Frequent voiding on bed bedpan. Intermittent nausea at the beginning of the shift, patient feels it is brought on by IV Keppra, PRN antiemetics given, see MAR. Will discuss with team during rounding. Maricruz wraps to bilateral lower extremities remain clean dry and intact, + CSMT. NPO at midnight for anticipation of OR today. Maintaining NWB status to BLE. Will continue to monitor and assist patient to reach discharge goals. PLAN MOVING FORWARD: OR Pain control Glucose monitoring INDIVIDUALIZED FALL PREVENTION INTERVENTIONS: Patient-specific fall risk factors per assessment: [current deficits]: Pain, medications, hospital environment Assistance [level of assistance required for transfers and ambulation]: Slide board to chair, chairfast, Bilateral NWB LE Supervision [direct monitoring required during toileting and ADLs]: Eyes on Surveillance [continuous indirect monitoring]: Kp, purposeful rounding and nurse knowledge exchange Patient-specific fall prevention interventions for sensory deficits provided, if applicable: [X] Yesglasses CPG GOAL OUTCOME EVALUATION: Plan of Care - Bandar Sahu RN - 09/15/2018 5:59 PM EDT Problem: Patient Care Overview Goal: Plan of Care Review Outcome: Ongoing (Interventions Implemented as Appropriate) 09/15/18 0535 09/15/18 0830 Coping/Psychosocial Plan Of Care Reviewed With -- patient Plan of Care Review Progress no change -- OUTCOME EVALUATION NOTE: OUTCOME SUMMARY: Patient rested between care this shift. Pain controlled with scheduled and PRN pain medications (seeMAR). Splints and maricruz wrap soft casts to BLE remain c/d/i. +CMS. Patient utilized slide board to thechair without difficulty today. Patient remains NWB to BLE. Patient voiding without difficulty (see I&O flowsheet). BG coverage provided as needed (see MAR). Patient's non-formulary medication broug ht to pharmacy for verification. Patient NPO at 0000 for OR tomorrow. VSS. Will continue to monitor. PLAN MOVING FORWARD: Pain control, OR tomorrow, PT/OT, mobilization, BG control, d/c planning INDIVIDUALIZED FALL PREVENTION INTERVENTIONS: Patient-specific fall risk factors per assessment: [current deficits]: Recent fall, pain, impaired physical mobility, generalized weakness, multiple lines/drains, hospital environment Assistance [level of assistance required for transfers and ambulation]: 2 assist; NWB to RLE Supervision [direct monitoring required during toileting and ADLs]: Hands on as needed during ADLs Surveillance [continuous indirect monitoring]: Kp NKE at bedside, purposeful rounding, patient instructed to ring for nurse assist via call valderrama Patient-specific fall prevention interventions for sensory deficits provided, if applicable: [X] Yes CPG GOAL OUTCOME EVALUATION: Goal: Fall Prevention-Safe Patient Handling Outcome: Ongoing (Interventions Implemented as Appropriate) 09/14/18215109/15/18 0830 09/15/18 1403 Burks Fall Risk History of Falling -- 25 -- Secondary Diagnosis -- 15 -- Ambulatory Aids -- 0 -- Intravenous Therapy/Heparin/Saline Lock -- 20 -- Gait/Transferring -- 0 -- Mental Status -- 0 -- Score -- 60 -- OTHER Burks Fall Risk -- High -- Restraint Interventions Safety Promotion/Fall Prevention -- activity supervised;fall prevention program maintained;muscle strengthening facilitated;safety round/check completed -- Positioning Body Position -- independent;lower extremity elevated, left;lower extremity elevated, right -- Activity Activity Type -- -- activity adjusted per tolerance (Off/On bedpan - No results) Activity Assistance Provided -- -- assistance, 1 person Assistive Device Utilized none -- -- Goal: Infection Control Outcome: Ongoing (Interventions Implemented as Appropriate) 09/15/18 0830 Safety Interventions Isolation Precautions standard precautions maintained Infection Prevention rest/sleep promoted;single patient room provided Coping Strategies Supportive Measures active listening utilized;decision-making supported;goal setting facilitated;positive reinforcement provided;problem solving facilitated;relaxation techniques promoted;self-care encouraged;verbalization of feelings encouraged Goal: Discharge Needs Assessment Outcome: Ongoing (Interventions Implemented as Appropriate) 09/15/18 05 Discharge Needs Assessment Equipment Needed After Discharge wheelchair Discharge Disposition still a patient Goal: Interdisciplinary Rounds/Family Conf Outcome: Ongoing (Interventions Implemented as Appropriate) 09/15/18 0522 Interdisciplinary Rounds/Family Conf Participants nursing;patient;physician;respiratory therapy Problem: Skin Integrity Impairment, Risk/Actual (Adult) Goal: Identify Related Risk Factors and Signs and Symptoms Related risk factors and signs and symptoms are identified upon initiation of Human Response Clinical Practice Guideline (CPG) Outcome: Ongoing (Interventions Implemented as Appropriate) 09/15/18 0521 Skin Integrity Impairment, Risk/Actual Skin Integrity Impairment, Risk/Actual: Related Risk Factors edema;immobility;traumatic injury Signs and Symptoms (Skin Integrity Impairment) edema Goal: Skin Integrity/Wound Healing Patient will demonstrate the desired outcomes by discharge/transition of care. Outcome: Ongoing (Interventions Implemented as Appropriate) 09/15/18 05 Skin Integrity Impairment, Risk/Actual (Adult) Skin Integrity/Wound Healing making progress toward outcome Plan of Care - Ori Bates OT - 09/15/2018 3:13 PM EDT OCCUPATIONAL THERAPY Order received and chart reviewed. Pt is pending surgery for bilat foot fractures, OT will follow uppost up as able/appropriate. Oir Valencia OT Pager: [phone] Initial Assessments - Kathrin Madsen RN - 09/15/2018 2:35 PM EDT Office of Care Management Initial Assessment Kathrin Madsen RN reviewed record and discussed patient with Care Team. Source of Information: patient Introduced self/reviewed role; services accepted. Reason for Hospitalization: injury at home, fractured bilat feet. Multiple falls. Past Medical History: Diagnosis Date ??? Arthritis ??? Chronic pain 09/15/2018 ??? Gastroesophageal reflux 09/15/2018 ??? Hyperlipidemia 09/15/2018 ??? Hypertension 09/15/2018 ??? LORRI on CPAP 09/15/2018 ??? Type 2 diabetes mellitus without complication, with long-term current use of insulin 09/15/2018 Hospitalizations Within the Past 30 Days: no Anticipated Length Of Stay (If known): 3-4 days Current Decision-Making Capacity: pt Capable of making her own decisions. she states she has advanced directives with her , Kacey, as health care proxy. Her PCP has a copy. Advance Care Planning: copy with pcp. Current Coping/Education/Information Needs: coping fair Current Functional Ability: NWB bilat lower extremities. Functional Status Prior to Admission: independent, has a rollator and a cane at home. Pt is disabled. Was driving. Home Environment: lives with her , Less. 2 story home, 2 steps to enter. Social & Family Supports/Community Resources: pt states her is very supportive. Behavioral Health History: none noted Substance Use/Abuse: none noted Other Pertinent/Service Specific Information: Health/Prescription Coverage: Primary Insurance: MEDICARE Secondary Insurance: MEDICAID [place] Prescription Coverage: [facility]erred [facility]acy[facility] Other: Primary Care Provider: LILLY Gaitan [phone] Patient/Caregiver Goals of Treatment: agreed to go to snf for str. PT to eval after surgery which isplanned for tomorrow. Referred to snfs. Cont to follow to determine if swing or acute would be more appropriate for pt's recovery. Potential Needs for Transition of Care: Rehab/SNF: referrals submitted. Home Health: n/a DME: n/a Dialysis: n/a Community Resources: Transportation: family vs ambulance Other: Anticipated Barriers to Discharge/Special Considerations: none Assessment: pt is 53 yo female transferred from outside hospital with fractures bilat feet. Pt states she dropped a log on her feet. She kept trying to walk not realizing how bad her feet were. She kept falling face first. She denies any domestic issues at home, state her is very kind. She agrees to snf referrals, #[facility], [facility]. Referral submitted. Plan: snf vs swing vs acute. A member of the Care Management team will continue to monitor progress, follow for continuity of care and assist with transition of care planning. Kathrin Madsen RN Pager: [phone] Plan of Care - Horace Beckman PT - 09/15/2018 12:40 PM EDT 09/15/18 0900 Rehab Evaluation Document Type contact Evaluation Not Performed Comment PT orders received pre op. Per notes pt is pending surgery for bilat foot fractures. Will initiate PT after surgery. Plan of Care - Nell Fitch RN - 09/15/2018 5:22 AM EDT Problem: Patient Care Overview Goal: Plan of Care Review Outcome: Ongoing (Interventions Implemented as Appropriate) OUTCOME EVALUATION NOTE: OUTCOME SUMMARY: Patient resting between care overnight. Patient arrived from outside hospital, bedrest. intermittentnausea overnight, no emesis, PRN medications given. Pain controlled with scheduled and PRN medication, see JUL. Splint and maricruz wrap to bilateral feet, remains clean, dry and intact, + CSMT. NPO at 0000for possible OR today. Will continue to monitor and assist patient to reach discharge goals. PLAN MOVING FORWARD: OR Pain control Bedrest Glucose monitoring INDIVIDUALIZED FALL PREVENTION INTERVENTIONS: Patient-specific fall risk factors per assessment: [current deficits]: Bilateral fractures to feet, pain, hospital environment and invasive lines Assistance [level of assistance required for transfers and ambulation]: Bedrest Supervision [direct monitoring required during toileting and ADLs]: Hands on, bedpan Surveillance [continuous indirect monitoring]: Masimo, purposeful rounding and nurse knowledge exchange Patient-specific fall prevention interventions for sensory deficits provided, if applicable: [X] Yesglasses on CPG GOAL OUTCOME EVALUATION: documented in this encounter Plan of Treatment Scheduled Orders Name Type Priority Associated Order Schedule Diagnoses Film Library- Imaging Storage Routine Once PRN (f or Storage Only DX Only Radiant use) for 1 Chest Occurrences sta rting 09/15/2018 unti l 09/15/2018, 1 completed Film Library- Imaging Storage Routine Once PRN (f or Storage Only Only Radiant use) fo r 1 Ultrasound Study Occurrences starting 09/15/2018 unti l 09/15/2018, 1 completed Film Library- Imaging Storage Routine Once PRN (f or Storage Only MR Head Only Radiant use) for 1 Occurrences sta rting 09/15/2018 unti l 09/15/2018, 1 completed documented as of this encounter Procedures Procedure Name Priority Date/Time Associated Diagnosis Comme nts POCT GLUCOSE Routine 09/20/2018 11:29 Results for this AM EDT procedure are i n the results section. POCT GLUCOSE Routine 09/20/2018 8:02 Results for this AM EDT procedure are i n the results section. POCT GLUCOSE Routine 09/20/2018 4:03 Results for this AM EDT procedure are i n the results section. POCT GLUCOSE Routine 09/19/2018 11:45 Results for this PM EDT procedure are i n the results section. POCT GLUCOSE Routine 09/19/2018 7:26 Results for this PM EDT procedure are i n the results section. POCT GLUCOSE Routine 09/19/2018 4:14 Results for this PM EDT procedure are i n the results section. POCT GLUCOSE Routine 09/19/2018 11:28 Results for this AM EDT procedure are i n the results section. POCT GLUCOSE Routine 09/19/2018 7:54 Results for this AM EDT procedure are i n the results section. POCT GLUCOSE Routine 09/19/2018 3:42 Results for this AM EDT procedure are i n the results section. MAGNESIUM Routine 09/19/2018 3:40 Results for this AM EDT procedure are i n the results section. BASIC METABOLIC PANEL Routine 09/19/2018 3:40 Res ults for this (NON-FASTING) AM EDT procedure are in the results section. POCT GLUCOSE Routine 09/18/2018 11:20 Results for this PM EDT procedure are i n the results section. POCT GLUCOSE Routine 09/18/2018 7:57 Results for this PM EDT procedure are i n the results section. POCT GLUCOSE Routine 09/18/2018 4:56 Results for this PM EDT procedure are i n the results section. POCT GLUCOSE Routine 09/18/2018 11:59 Results for this AM EDT procedure are i n the results section. POCT GLUCOSE Routine 09/18/2018 7:55 Results for this AM EDT procedure are i n the results section. POCT GLUCOSE Routine 09/18/2018 3:58 Results for this AM EDT procedure are i n the results section. MAGNESIUM Routine 09/18/2018 3:37 Results for this AM EDT procedure are i n the results section. BASIC METABOLIC PANEL Routine 09/18/2018 3:37 Res ults for this (NON-FASTING) AM EDT procedure are in the results section. POCT GLUCOSE Routine 09/17/2018 11:33 Results for this PM EDT procedure are i n the results section. POCT GLUCOSE Routine 09/17/2018 7:24 Results for this PM EDT procedure are i n the results section. POCT GLUCOSE Routine 09/17/2018 3:16 Results for this PM EDT procedure are i n the results section. POCT GLUCOSE Routine 09/17/2018 12:01 Results for this PM EDT procedure are i n the results section. ZEEG AWAKE, ASLEEP, Routine 09/17/2018 9:30 Resul ts for this DROWSY AM EDT procedure are i n the results section. BASIC METABOLIC PANEL Routine 09/17/2018 9:02 Res ults for this (NON-FASTING) AM EDT procedure are in the results section. POCT GLUCOSE Routine 09/17/2018 7:33 Results for this AM EDT procedure are i n the results section. POCT GLUCOSE Routine 09/17/2018 3:29 Results for this AM EDT procedure are i n the results section. POCT GLUCOSE Routine 09/16/2018 11:25 Results for this PM EDT procedure are i n the results section. POCT GLUCOSE Routine 09/16/2018 8:29 Results for this PM EDT procedure are i n the results section. POCT GLUCOSE Routine 09/16/2018 3:35 Results for this PM EDT procedure are i n the results section. HEMOGLOBIN A1C Routine 09/16/2018 3:33 Results fo r this PM EDT procedure are i n the results section. BASIC METABOLIC PANEL Routine 09/16/2018 3:33 Res ults for this (NON-FASTING) PM EDT procedure are in the results section. XR FOOT MIN 3 VIEWS Routine 09/16/2018 3:16 Resul ts for this BILAT PM EDT procedure are i n the results section. POCT GLUCOSE Routine 09/16/2018 1:56 Results for this PM EDT procedure are i n the results section. XR FLUORO NO RAD <1HR - Routine 09/16/2018 1:10 R esults for this OR USE PM EDT procedure are i n the results section. OPEN TREAMENT Routine 09/16/2018 1:08 TARSOMETATARSAL JOINT PM EDT DISLOCATION PERCUTANEOUS PINNING, Routine 09/16/2018 1:08 TARSOMETATARSAL JOINT PM EDT DISLOCATION ORIF GREAT TOE Routine 09/16/2018 1:08 PM EDT PERCUTANEOUS PINNING, Routine 09/16/2018 1:08 METATARSAL FX, EA. PM EDT CLOSED REDUCTION TARSAL Routine 09/16/2018 1:08 BONE FX PM EDT CLOSED REDUCTION TARSAL 09/16/2018 10:17 Bilateral com plex BONE FX (WRVU 3.24) AM EDT foot fractures and dislocations ORIF GREAT TOE (WRVU 09/16/2018 10:17 Bilateral comple x 7.44) AM EDT foot fractures and dislocations PERCUTANEOUS PINNING, 09/16/2018 10:17 Bilateral compl ex METATARSAL FX, EA. AM EDT foot fractures and (WRVU 3.6) dislocations PERCUTANEOUS PINNING, 09/16/2018 10:17 Bilateral compl ex TARSOMETATARSAL JOINT AM EDT foot fractures and DISLOCATION (WRVU 5.09) dislocations OPEN TREAMENT 09/16/2018 10:17 Bilateral complex TARSOMETATARSAL JOINT AM EDT foot fractures and DISLOCATION (WRVU 10.7) dislocations MODIFIER LOCKING MINI 09/16/2018 10:17 Bilateral compl ex FRAGMENT SYNTHES AM EDT foot fractures and dislocations MODIFIER 4.0 CANNULATED 09/16/2018 10:17 Bilateral com plex SCREW SYNTHES AM EDT foot fractures and dislocations MODIFIER LOCKING SMALL 09/16/2018 10:17 Bilateral comp kj FRAGMENT SYNTHES AM EDT foot fractures and dislocations ORIF METATARSAL FX, 09/16/2018 10:17 Bilateral complex EACH (WRVU 7.44) AM EDT foot fractures and dislocations POCT GLUCOSE Routine 09/16/2018 7:46 Results for this AM EDT procedure are i n the results section. URINE HOLD Routine 09/16/2018 6:07 Results for this AM EDT procedure are i n the results section. URINALYSIS WITH REFLEX Routine 09/16/2018 6:07 Re sults for this CULTURE AM EDT procedure are i n the results section. POCT GLUCOSE Routine 09/16/2018 3:30 Results for this AM EDT procedure are i n the results section. POCT GLUCOSE Routine 09/15/2018 10:59 Results for this PM EDT procedure are i n the results section. POCT GLUCOSE Routine 09/15/2018 8:10 Results for this PM EDT procedure are i n the results section. POCT GLUCOSE Routine 09/15/2018 3:43 Results for this PM EDT procedure are i n the results section. POCT GLUCOSE Routine 09/15/2018 12:05 Results for this PM EDT procedure are i n the results section. POCT GLUCOSE Routine 09/15/2018 7:39 Results for this AM EDT procedure are i n the results section. POCT GLUCOSE Routine 09/15/2018 4:12 Results for this AM EDT procedure are i n the results section. ABORH RECHECK STATUS Routine 09/15/2018 3:44 Resu lts for this AM EDT procedure are i n the results section. HEMOGRAM Routine 09/15/2018 3:44 Results for this AM EDT procedure are i n the results section. DIFFERENTIAL, AUTOMATED Routine 09/15/2018 3:44 R esults for this AM EDT procedure are i n the results section. ABO/RH TYPING Routine 09/15/2018 3:44 Results for this AM EDT procedure are i n the results section. PROTHROMBIN TIME Routine 09/15/2018 3:44 Results for this AM EDT procedure are i n the results section. CBC (WITH DIFF) Routine 09/15/2018 3:44 AM EDT ANTIBODY SCREEN Routine 09/15/2018 3:44 Results f or this AM EDT procedure are i n the results section. TYPE AND SCREEN Routine 09/15/2018 3:44 ([facility]) AM EDT BASIC METABOLIC PANEL Routine 09/15/2018 3:44 Res ults for this (NON-FASTING) AM EDT procedure are in the results section. ORIF METATARSAL FX, Routine 09/15/2018 2:17 EACH AM EDT POCT GLUCOSE Routine 09/14/2018 9:52 Results for this PM EDT procedure are i n the results section. FILM LIBRARY STORAGE Routine 09/13/2018 12:10 Res ults for this ONLY MR HEAD AM EDT procedure are i n the results section. FILM LIBRARY STORAGE Routine 09/13/2018 12:05 Res ults for this ONLY ULTRASOUND STUDY AM EDT proced ure are in the results section. FILM LIBRARY STORAGE Routine 09/13/2018 12:00 Res ults for this ONLY DX CHEST AM EDT procedure are in the results section. documented in this encounter Results POCT Glucose (09/20/2018 11:29 AM EDT) athologist Signature POC Glucose 139 65 - 199 [facility] mg/dL [facility] Comment: Supplemental ranges: <140 mg/dL before meals <180 mg/dL all other times of the day Specimen Anatomical Collection Method Collection Time Receive d Time (Source) Location / / Volume Laterality Blood specimen 09/20/2018 11:29 9 (specimen) AM EDT 11:29 AM EDT Javad Urban MD POINT OF CARE TEST ORDERABLE S Performing Organization Address City/State/[place] [address] POCT Glucose (09/20/2018 8:02 AM EDT) athologist Signature POC Glucose 167 65 - 199 [facility] mg/dL [facility] Comment: Supplemental ranges: <140 mg/dL before meals <180 mg/dL all other times of the day Specimen Anatomical Collection Method Collection Time Receive d Time (Source) Location / / Volume Laterality Blood specimen 09/20/2018 8:02 AM 019 8:02 (specimen) EDT AM EDT Javad Urban MD POINT OF CARE TEST ORDERABLE S Performing Organization Address City/State/ZIP Code Phon e Number [address] POCT Glucose (09/20/2018 4:03 AM EDT) athologist Signature POC Glucose 127 65 - 199 [facility] mg/dL [facility] Comment: Supplemental ranges: <140 mg/dL before meals <180 mg/dL all other times of the day Specimen Anatomical Collection Method Collection Time Receive d Time (Source) Location / / Volume Laterality Blood specimen 09/20/2018 4:03 AM 019 4:03 (specimen) EDT AM EDT Javad Urban MD POINT OF CARE TEST ORDERABLE S Performing Organization Address City/[facility]/ZIP Code Phon e Number [address] POCT Glucose (09/19/2018 11:45 PM EDT) athologist Signature POC Glucose 146 65 - 199 [place] mg/dL [facility] Comment: Supplemental ranges: <140 mg/dL before meals <180 mg/dL all other times of the day Specimen Anatomical Collection Method Collection Time Receive d Time (Source) Location / / Volume Laterality Blood specimen 09/19/2018 11:45 9 (specimen) PM EDT 11:45 PM EDT Javad Urban MD POINT OF CARE TEST ORDERABLE S Performing Organization Address City/State/ZIP Code Phon e Number [address] POCT Glucose (09/19/2018 7:26 PM EDT) athologist Signature POC Glucose 149 65 - 199 [facility] [place] mg/dL [facility] Comment: Supplemental ranges: <140 mg/dL before meals <180 mg/dL all other times of the day Specimen Anatomical Collection Method Collection Time Receive d Time (Source) Location / / Volume Laterality Blood specimen 09/19/2018 7:26 PM 019 7:26 (specimen) EDT PM EDT Javad Urban MD POINT OF CARE TEST ORDERABLE S Performing Organization Address City/State/ZIP Code Phon e Number [address] POCT Glucose (09/19/2018 4:14 PM EDT) athologist Signature POC Glucose 144 65 - 199 [facility] mg/dL [facility] Comment: Supplemental ranges: <140 mg/dL before meals <180 mg/dL all other times of the day Specimen Anatomical Collection Method Collection Time Receive d Time (Source) Location / / Volume Laterality Blood specimen 09/19/2018 4:14 PM 019 4:14 (specimen) EDT PM EDT Javad Urban MD POINT OF CARE TEST ORDERABLE S Performing Organization Address City/State/[place] [address] POCT Glucose (09/19/2018 11:28 AM EDT) athologist Signature POC Glucose 170 65 - 199 [place] mg/dL [facility] Comment: Supplemental ranges: <140 mg/dL before meals <180 mg/dL all other times of the day Specimen Anatomical Collection Method Collection Time Receive d Time (Source) Location / / Volume Laterality Blood specimen 09/19/2018 11:28 9 (specimen) AM EDT 11:28 AM EDT Javad Urban MD POINT OF CARE TEST ORDERABLE S Performing Organization Address City/State/[place] [address] POCT Glucose (09/19/2018 7:54 AM EDT) athologist Signature POC Glucose 120 65 - 199 [place] mg/dL [facility] Comment: Supplemental ranges: <140 mg/dL before meals <180 mg/dL all other times of the day Specimen Anatomical Collection Method Collection Time Receive d Time (Source) Location / / Volume Laterality Blood specimen 09/19/2018 7:54 AM 019 7:54 (specimen) EDT AM EDT Javad Urban MD POINT OF CARE TEST ORDERABLE S Performing Organization Address City/State/ZIP Code Phon e Number [address] POCT Glucose (09/19/2018 3:42 AM EDT) athologist Signature POC Glucose 105 65 - 199 [facility] mg/dL [facility] Comment: Supplemental ranges: <140 mg/dL before meals <180 mg/dL all other times of the day Specimen Anatomical Collection Method Collection Time Receive d Time (Source) Location / / Volume Laterality Blood specimen 09/19/2018 3:42 AM 019 3:42 (specimen) EDT AM EDT Javad Urban MD POINT OF CARE TEST ORDERABLE S Performing Organization Address City/[facility]/ZIP Code Phon e Number [address] Magnesium (09/19/2018 3:40 AM EDT) athologist Signature Magnesium 0.74 0.69 - 1.07 [facility] mmol/L [facility] Specimen Anatomical Collection Method Collection Time Receive d Time (Source) Location / / Volume Laterality Blood specimen Venous Draw / 09/19/2018 3:40 AM 2018 4:40 (specimen) Unknown EDT AM EDT Resulting Agency Comment Spec In Lab Buffy CARR CHEMISTRY ORDERABLES Performing Organization Address City/[facility]/[place]IP [place] [address] (ABNORMAL) Basic Metabolic Panel (non-fasting) (09/19/2018 3:40 AM EDT) athologist Signature Glucose Lvl 111 65 - 199 [facility] mg/dL [facility] Comment: Diabetes: >=200 mg/dL plus symp toms BUN 11 8 - 18 mg/dL [facility] Creatinine 0.64 (L) 0.70 - 1.20 mg/dL [facility] Sodium 140 135 - 145 mmol/L [facility] Potassium 4.0 3.5 - 5.0 mmol/L [facility] Comment: Please note: ??Patients with WBC >100,00 0 may have falsely elevated Potassium levels. ??For accurate Potassium quantif ication in these patients send serum separator tube (gold top) for subsequent determinations. ??Contact the Clinical Chemistry Laboratory if there are any qu estions. Chloride 104 98 - 107 mmol/L [facility] CO2 27 22 - 31 mmol/L [facility] Anion Gap 9 5 - 15 mmol/L [facility] Calcium 8.9 8.5 - 10.5 mg/dL [facility] Estimated GFR 103 >=60 mL/min/1.73 m?? [facility] Comment: The eGFR was calculated using the CKD-EP I equation. As with all creatinine based estimates of kidney function, eGFR values calculated with the CKD-EPI equation are not accurate in patients wi th acute kidney failure, extremes of body mass or the acutely ill. [email or web address] eGFR 120 >=60 mL/min/1.73 m?? [facility] Comment: The eGFR was calculated using the CKD-EP I equation. As with all creatinine based estimates of kidney function, eGFR values calculated with the CKD-EPI equation are not accurate in patients wi th acute kidney failure, extremes of body mass or the acutely ill. [email or web address] Specimen Anatomical Collection Method Collection Time Receive d Time (Source) Location / / Volume Laterality Blood specimen 09/19/2018 3:40 AM 019 3:53 (specimen) EDT AM EDT Resulting Agency Comment Spec In Lab Trina Loo APRN CHEMISTRY ORDERABLES Performing Organization Address City/State/[place] [address] POCT Glucose (09/18/2018 11:20 PM EDT) P athologist Signature POC Glucose 150 65 - 199 [facility] mg/dL [facility] Comment: Supplemental ranges: <140 mg/dL before meals <180 mg/dL all other times of the day Specimen Anatomical Collection Method Collection Time Receive d Time (Source) Location / / Volume Laterality Blood specimen 09/18/2018 11:20 9 (specimen) PM EDT 11:20 PM EDT Javad Urban MD POINT OF CARE TEST ORDERABLE S Performing Organization Address City/State/[place] [address] POCT Glucose (09/18/2018 7:57 PM EDT) athologist Signature POC Glucose 103 65 - 199 [place] mg/dL [facility] Comment: Supplemental ranges: <140 mg/dL before meals <180 mg/dL all other times of the day Specimen Anatomical Collection Method Collection Time Receive d Time (Source) Location / / Volume Laterality Blood specimen 09/18/2018 7:57 PM 019 7:57 (specimen) EDT PM EDT Javad Urban MD POINT OF CARE TEST ORDERABLE S Performing Organization Address City/State/[place] [address] POCT Glucose (09/18/2018 4:56 PM EDT) athologist Signature POC Glucose 142 65 - 199 [facility] [place] mg/dL [facility] Comment: Supplemental ranges: <140 mg/dL before meals <180 mg/dL all other times of the day Specimen Anatomical Collection Method Collection Time Receive d Time (Source) Location / / Volume Laterality Blood specimen 09/18/2018 4:56 PM 019 4:56 (specimen) EDT PM EDT Javad Urban MD POINT OF CARE TEST ORDERABLE S Performing Organization Address City/State/[place] [address] POCT Glucose (09/18/2018 11:59 AM EDT) athologist Signature POC Glucose 160 65 - 199 [place] mg/dL [facility] Comment: Supplemental ranges: <140 mg/dL before meals <180 mg/dL all other times of the day Specimen Anatomical Collection Method Collection Time Receive d Time (Source) Location / / Volume Laterality Blood specimen 09/18/2018 11:59 9 (specimen) AM EDT 11:59 AM EDT Javad Urban MD POINT OF CARE TEST ORDERABLE S Performing Organization Address City/State/ZIP Code Phon e Number [address] POCT Glucose (09/18/2018 7:55 AM EDT) athologist Signature POC Glucose 126 65 - 199 [facility] mg/dL [facility] Comment: Supplemental ranges: <140 mg/dL before meals <180 mg/dL all other times of the day Specimen Anatomical Collection Method Collection Time Receive d Time (Source) Location / / Volume Laterality Blood specimen 09/18/2018 7:55 AM 019 7:55 (specimen) EDT AM EDT Javad Urban MD POINT OF CARE TEST ORDERABLE S Performing Organization Address City/[facility]/ZIP Code Phon e Number [address] POCT Glucose (09/18/2018 3:58 AM EDT) athologist Signature POC Glucose 125 65 - 199 [facility] mg/dL [facility] Comment: Supplemental ranges: <140 mg/dL before meals <180 mg/dL all other times of the day Specimen Anatomical Collection Method Collection Time Receive d Time (Source) Location / / Volume Laterality Blood specimen 09/18/2018 3:58 AM 019 3:58 (specimen) EDT AM EDT Javad Urban MD POINT OF CARE TEST ORDERABLE S Performing Organization Address City/State/[place] [address] (ABNORMAL) Magnesium (09/18/2018 3:37 AM EDT) athologist Signature Magnesium 0.67 (L) 0.69 - 1.07 [facility] Specimen Anatomical Collection Method Collection Time Receive d Time (Source) Location / / Volume Laterality Blood specimen Venous Draw / 09/18/2018 3:37 AM 2018 4:55 (specimen) Unknown EDT AM EDT Resulting Agency Comment Spec In Lab Trina Loo APRN CHEMISTRY ORDERABLES Performing Organization Address City/State/[place] [address] (ABNORMAL) Basic Metabolic Panel (non-fasting) (09/18/2018 3:37 AM EDT) athologist Signature Glucose Lvl 106 65 - 199 [facility] mg/dL [facility] Comment: Diabetes: >=200 mg/dL plus symp toms BUN 7 (L) 8 - 18 mg/dL [facility] Creatinine 0.62 (L) 0.70 - 1.20 mg/dL [facility] Sodium 143 135 - 145 mmol/L [facility] Potassium 3.1 (L) 3.5 - 5.0 mmol/L [facility] Comment: Please note: ??Patients with WBC >100,00 0 may have falsely elevated Potassium levels. ??For accurate Potassium quantif ication in these patients send serum separator tube (gold top) for subsequent determinations. ??Contact the Clinical Chemistry Laboratory if there are any qu estions. Chloride 106 98 - 107 mmol/L [facility] CO2 26 22 - 31 mmol/L [facility] Anion Gap 11 5 - 15 mmol/L [facility] Calcium 8.5 8.5 - 10.5 mg/dL [facility] Estimated GFR 104 >=60 mL/min/1.73 m?? [facility] Comment: The eGFR was calculated using the CKD-EP I equation. As with all creatinine based estimates of kidney function, eGFR values calculated with the CKD-EPI equation are not accurate in patients wi th acute kidney failure, extremes of body mass or the acutely ill. http://[email or web address] eGFR 121 >=60 mL/min/1.73 m?? [facility] Comment: The eGFR was calculated using the CKD-EP I equation. As with all creatinine based estimates of kidney function, eGFR values calculated with the CKD-EPI equation are not accurate in patients wi th acute kidney failure, extremes of body mass or the acutely ill. [email or web address] Specimen Anatomical Collection Method Collection Time Receive d Time (Source) Location / / Volume Laterality Blood specimen 09/18/2018 3:37 AM 019 3:59 (specimen) EDT AM EDT Resulting Agency Comment Spec In Lab Trina Loo APRN CHEMISTRY ORDERABLES Performing Organization Address City/State/ZIP Code Phon e Number [address] POCT Glucose (09/17/2018 11:33 PM EDT) athologist Signature POC Glucose 145 65 - 199 [facility] mg/dL [facility] Comment: Supplemental ranges: <140 mg/dL before meals <180 mg/dL all other times of the day Specimen Anatomical Collection Method Collection Time Receive d Time (Source) Location / / Volume Laterality Blood specimen 09/17/2018 11:33 9 (specimen) PM EDT 11:33 PM EDT Javad Urban MD POINT OF CARE TEST ORDERABLE S Performing Organization Address City/[facility]/[place]IP [place] [address] (ABNORMAL) POCT Glucose (09/17/2018 7:24 PM EDT) athologist Signature POC Glucose 200 (H) 65 - 199 [facility] mg/dL [facility] Comment: Supplemental ranges: <140 mg/dL before meals <180 mg/dL all other times of the day Specimen Anatomical Collection Method Collection Time Receive d Time (Source) Location / / Volume Laterality Blood specimen 09/17/2018 7:24 PM 019 7:24 (specimen) EDT PM EDT Javad Urban MD POINT OF CARE TEST ORDERABLE S Performing Organization Address City/[facility]/ZIP Code Phon e Number [address] POCT Glucose (09/17/2018 3:16 PM EDT) athologist Signature POC Glucose 180 65 - 199 [facility] mg/dL [facility] Comment: Supplemental ranges: <140 mg/dL before meals <180 mg/dL all other times of the day Specimen Anatomical Collection Method Collection Time Receive d Time (Source) Location / / Volume Laterality Blood specimen 09/17/2018 3:16 PM 019 3:16 (specimen) EDT PM EDT Javad Urban MD POINT OF CARE TEST ORDERABLE S Performing Organization Address City/[facility]/ZIP [place] [address] POCT Glucose (09/17/2018 12:01 PM EDT) athologist Signature POC Glucose 137 65 - 199 [facility] Comment: Supplemental ranges: <140 mg/dL before meals <180 mg/dL all other times of the day Specimen Anatomical Collection Method Collection Time Receive d Time (Source) Location / / Volume Laterality Blood specimen 09/17/2018 12:01 9 (specimen) PM EDT 12:01 PM EDT Javad Urban MD POINT OF CARE TEST ORDERABLE S Performing Organization Address City/[facility]/[place] [address] EEG awake, asleep, drowsy, routine (09/17/2018 9:30 AM EDT) Narrative Jose Singer MD - 09/17/2018 9:30 A M EDT Jose Singer MD ? 09/21/2018 10:14 AM [facility] Department of Neurology Inpatient EEG Report Name of the Patient: ??Jenae La Date of : ?1965 Date of Service: ?09/17/2018 Referring physician: ?Dr. Abdirahman Potter in[place] BRIEF HISTORY: Jenae La is a 53 y.o. patient wit h episodes of tremors at home and witnessed facial and arm twitch ing at [facility] (witnessed by nursing). Also has hit head during multi ple falls recently. MEDICATIONS: Current Facility-Administered Medication s Medication Dose Route Frequency Provider Last Rate Last Dose ? ? oxyCODONE (ROXICODONE) immediate release tablet 5 mg ??5 mg Oral Q3H PRN Sanket Freeman MD ? Or ? ? oxyCODONE (ROXICODONE) immediate release tablet 10 mg ??10 mg Oral Q3H PRN Sanket Freeman MD ? Or ? ? oxyCODONE (ROXICODONE) immediate release tablet 15 mg ??15 mg Oral Q3H PRN Sanket Freeman MD ?? 15 mg at 09/17/1844 ? ? potassium chloride (K-DUR/KLOR-CON) extended release tablet 20 mEq ??20 mEq Oral Q4H Sanket Freeman MD ?? 20 mEq at 09/17/18 0636 ? ? cholecalciferol (Vitamin D3) tablet 1,000 Units ??1,000 Units Oral Daily Buffy Russell PA ?? 1,0 00 Units at 09/17/18 0843 ? ? calcium citrate (CALCITRATE) tablet 950 mg ??950 mg Oral Daily Buffy Russell PA ?? 950 mg at 08/24 ? ? enoxaparin (LOVENOX) injection 40 mg ??40 mg Subcutaneous Nightly Sanket Freeman MD ?? 40 mg at 09/16/182010 ? ? Nicotine inhalation system (Nicotrol Inhaler) 1 cartridge ??1-4 Cartridge Inhalation Q4H PRN Clive Freeman MD ?? 1 Cartridge at 09/17/18351 ? ? polyethylene glycol (MIRALAX) packet 17 g ??17 g Oral BID Sanket Freeman MD ?? 17 g at 09/15/18818 ? ? senna-docusate (PERICOLACE) 8.6-50 mg per tablet 2 tablet ??2 tablet Oral BID Sanket Freeman MD ?? 2 tablet at 09/17/1844 ? ? sodium chloride 0.9% infusion ??1,000 mL Intravenous Continuous Sanket Freeman MD 100 mL/hr at 1999 1,000 mL at 09/16/181999 ? ? acetaminophen (TYLENOL) tablet 1,000 mg ??1,000 mg Oral Q8H Sanket Jamison MD ?? 1,000 mg at 08/2425 ? ? ipratropium-albuterol (DUONEB) 0.5 mg-3 mg(2.5 mg base)/3 mL nebulizer solution 3 mL ??3 mL Nebulizat ion Q4H PRN Sanket Freeman MD ? simvastatin (ZOCOR) tablet 20 mg ??20 mg Oral QPM Sanket Freeman MD ?? 20 mg at 09/16/181651 ? ? glucose (GLUTOSE) 40% oral gel ??15-30 g Buccal Q30 Min PRN Sanket Freeman MD ? Or ? ? dextrose 50% intravenous solution 25-50 mL ??12.5-25 g Intravenous Q1H PRSanket Friedman MD ? Or ? ? glucagon (human recombinant) injection SolR 1 mg ??1 mg Intramuscular Q1H PRSanket Friedman MD ? insulin lispro (HumaLOG) VIAL injection 1-4 Units ??1-4 Units Subcutaneous Q4H Sanket Jamison M D ?? 1 Units at 09/15/18 2305 ? ? ondansetron (ZOFRAN) injection 4 mg ??4 mg Intravenous Q8H PRSanket Friedman MD ?? 4 mg at 09/16/18 0721 ? ? prochlorperazine (COMPAZINE) injection 10 mg ??10 mg Intravenous Q6H PRSanket Friedman MD ?? 10 mg at 09/15/181 METHODS: A 21 channel digitized electroencephalog trena was performed in the [facility] [place] [facility]. The 10/20 international system of electrode placement was used and bipolar and referential electrode montag es were recorded. ??In addition to EEG the patient was monitore d for EKG and lateral/vertical eye movements. Video wa s recorded during the session. The duration of the recording w as 30 minutes. TAX ASSOCIATE ATTORNEY'S REPORT:Performed by: RR/GERHARD Patient was not sleep deprived. Sleep was not attained. Photic stimulation was performed. Hyperventilation was performed. Effort w as was adequate. Movement and other artifact was signific ant. Patient was in extreme pain. Comments:N/A ELECTROENCEPHALOGRAPHER'S REPORT: Background Significant motion and muscle artifact o bscure much of this recording. During the awake state with t he eyes closed the background consisted of a normal amplitu de, 9 Hz posterior reactive rhythm that attenuated appropri ately with eye opening. Beta activity was distributed diffusely with an anterior predominance. There was a normal anterio r-posterior voltage gradient. With eye opening the backgroun d activity changed to a low voltage mixture of alpha, beta, and occasional theta range frequencies. There were no significant a symmetries of background activity noted. Sleep Stage II sleep was not obtained. Hyperventilation Hyperventilation resulted in diffuse slo wing of the background activity without appearance of abnormal activity. Photic Stimulation Photic stimulation using a step-mullen inc rease in photic frequency varying from 1-21 Hertz resulted in bila teral driving responses at 5, 7, 9, 11, 13, 15, 17, 19, and 21 H ertz but no appearance of abnormal activity. Abnormal EEG Activity None EKG EKG revealed normal sinus rhythm. PRIOR EEG: No previous EEG reports were available. INTERPRETATION: This EEG is normal during the awake stat e as well as during the activation procedures of hyperventilatio n and photic stimulation. Of note, significant motion and muscle a rtifact obscure much of this recording. No seizures were capture d. CLINICAL CORRELATION: This is a normal awake only EEG without any epileptiform activity or focal abnormalities which decreases l ikelihood of epileptic seizures. A normal EEG does not exclude the diagnosis of epilepsy and it remains a clinical diagnosis. If there remains clinical suspicion please consider getting a repe at EEG that also captures sleep. German Angel MD Clinical Neurophysiology Fellow Personal Pager #[phone] Epilepsy Neurology #[phone] Neurology Attending I have personally reviewed the EEG, and I agree with the details as written. ?? The above report was form ulated in discussion with me at the time of EEG reading, and I agr ee with it as documented. Jose Singer MD [place] [address] Pager: [phone], #[phone] Email: [email or web address] Javad Urban MD NEUROLOGY ORDERABLES (ABNORMAL) Basic Metabolic Panel (non-fasting) (09/17/2018 9:02 AM EDT) athologist Signature Glucose Lvl 121 65 - 199 [facility] mg/dL [facility] Comment: Diabetes: >=200 mg/dL plus symp toms BUN 9 8 - 18 mg/dL [facility] Creatinine 0.59 (L) 0.70 - 1.20 mg/dL [facility] Sodium 144 135 - 145 mmol/L [facility] Potassium 2.9 (Critical) 3.5 - 5.0 mmol/L [facility] Comment: Called by: maged/sb, Read back by: Aruna Calvo, Date/Time:09/17/18 10:19. Please note: ??Patients with WBC >100,00 0 may have falsely elevated Potassium levels. ??For accurate Potassium quantif ication in these patients send serum separator tube (gold top) for subsequent determinations. ??Contact the Clinical Chemistry Laboratory if there are any qu estions. Chloride 108 (H) 98 - 107 mmol/L [facility] CO2 25 22 - 31 mmol/L [facility] Anion Gap 11 5 - 15 mmol/L [facility] Calcium 8.0 (L) 8.5 - 10.5 mg/dL [facility] Estimated GFR 106 >=60 mL/min/1.73 m?? [facility] Comment: The eGFR was calculated using the CKD-EP I equation. As with all creatinine based estimates of kidney function, eGFR values calculated with the CKD-EPI equation are not accurate in patients wi th acute kidney failure, extremes of body mass or the acutely ill. http://CipherMax/DHMCnkf eGFR 123 >=60 mL/min/1.73 m?? [facility] Comment: The eGFR was calculated using the CKD-EP I equation. As with all creatinine based estimates of kidney function, eGFR values calculated with the CKD-EPI equation are not accurate in patients wi th acute kidney failure, extremes of body mass or the acutely ill. [email or web address] Specimen Anatomical Collection Method Collection Time Receive d Time (Source) Location / / Volume Laterality Blood specimen 09/17/2018 9:02 AM 019 9:17 (specimen) EDT AM EDT Resulting Agency Comment Spec In Lab Javad Urban MD CHEMISTRY ORDERABLES Performing Organization Address City/[facility]/ZIP Code Phon e Number [address] POCT Glucose (09/17/2018 7:33 AM EDT) athologist Signature POC Glucose 136 65 - 199 [facility] mg/dL [facility] Comment: Supplemental ranges: <140 mg/dL before meals <180 mg/dL all other times of the day Specimen Anatomical Collection Method Collection Time Receive d Time (Source) Location / / Volume Laterality Blood specimen 09/17/2018 7:33 AM 019 7:33 (specimen) EDT AM EDT Javad Urban MD POINT OF CARE TEST ORDERABLE S Performing Organization Address City/[facility]/ZIP Code Phon e Number [address] POCT Glucose (09/17/2018 3:29 AM EDT) athologist Signature POC Glucose 126 65 - 199 [facility] mg/dL [facility] Comment: Supplemental ranges: <140 mg/dL before meals <180 mg/dL all other times of the day Specimen Anatomical Collection Method Collection Time Receive d Time (Source) Location / / Volume Laterality Blood specimen 09/17/2018 3:29 AM 019 3:29 (specimen) EDT AM EDT Javad Urban MD POINT OF CARE TEST ORDERABLE S Performing Organization Address City/[facility]/ZIP Code Phon e Number [address] POCT Glucose (09/16/2018 11:25 PM EDT) athologist Signature POC Glucose 123 65 - 199 [facility] [place] mg/dL [facility] Comment: Supplemental ranges: <140 mg/dL before meals <180 mg/dL all other times of the day Specimen Anatomical Collection Method Collection Time Receive d Time (Source) Location / / Volume Laterality Blood specimen 09/16/2018 11:25 04 9 (specimen) PM EDT 11:25 PM EDT Javad Urban MD POINT OF CARE TEST ORDERABLE S Performing Organization Address City/State/ZIP [place] [address] POCT Glucose (09/16/2018 8:29 PM EDT) athologist Signature POC Glucose 114 65 - 199 [facility] mg/dL [facility] Comment: Supplemental ranges: <140 mg/dL before meals <180 mg/dL all other times of the day Specimen Anatomical Collection Method Collection Time Receive d Time (Source) Location / / Volume Laterality Blood specimen 09/16/2018 8:29 PM 019 8:29 (specimen) EDT PM EDT Javad Urban MD POINT OF CARE TEST ORDERABLE S Performing Organization Address City/State/ZIP [place] [address] POCT Glucose (09/16/2018 3:35 PM EDT) athologist Signature POC Glucose 106 65 - 199 [place] mg/dL [facility] Comment: Supplemental ranges: <140 mg/dL before meals <180 mg/dL all other times of the day Specimen Anatomical Collection Method Collection Time Receive d Time (Source) Location / / Volume Laterality Blood specimen 09/16/2018 3:35 PM 019 3:35 (specimen) EDT PM EDT Javad Urban MD POINT OF CARE TEST ORDERABLE S Performing Organization Address City/State/[place] [address] (ABNORMAL) Basic Metabolic Panel (non-fasting) (09/16/2018 3:33 PM EDT) athologist Signature Glucose Lvl 106 65 - 199 [facility] mg/dL [facility] Comment: Diabetes: >=200 mg/dL plus symp toms BUN 13 8 - 18 mg/dL [facility] Creatinine 0.62 (L) 0.70 - 1.20 mg/dL [facility] Sodium 147 (H) 135 - 145 mmol/L [facility] Potassium 3.2 (L) 3.5 - 5.0 mmol/L [facility] Comment: Please note: ??Patients with WBC >100,00 0 may have falsely elevated Potassium levels. ??For accurate Potassium quantif ication in these patients send serum separator tube (gold top) for subsequent determinations. ??Contact the Clinical Chemistry Laboratory if there are any qu estions. Chloride 112 (H) 98 - 107 mmol/L [facility] CO2 22 22 - 31 mmol/L [facility] Anion Gap 13 5 - 15 mmol/L [facility] Calcium 8.1 (L) 8.5 - 10.5 mg/dL [facility] Estimated GFR 104 >=60 mL/min/1.73 m?? [facility] Comment: The eGFR was calculated using the CKD-EP I equation. As with all creatinine based estimates of kidney function, eGFR values calculated with the CKD-EPI equation are not accurate in patients wi th acute kidney failure, extremes of body mass or the acutely ill. [email or web address] ANTLERSnkf eGFR 121 >=60 mL/min/1.73 m?? [facility] Comment: The eGFR was calculated using the CKD-EP I equation. As with all creatinine based estimates of kidney function, eGFR values calculated with the CKD-EPI equation are not accurate in patients wi th acute kidney failure, extremes of body mass or the acutely ill. [email or web address] ANTLERSnkf Specimen Anatomical Collection Method Collection Time Receive d Time (Source) Location / / Volume Laterality Blood specimen 09/16/2018 3:33 PM 019 3:49 (specimen) EDT PM EDT Resulting Agency Comment Spec In Lab Javad Urban MD CHEMISTRY ORDERABLES Performing Organization Address City/State/[place] [address] Hemoglobin A1c (09/16/2018 3:33 PM EDT) athologist Signature Hemoglobin A1C 5.5 4.3 - 5.6 [facility] Comment: Reference Range: 4.3 - 5.6% 5.7 - 6.4% - Increased Risk of Developin g Diabetes Mellitus >= 6.5% - Consistent with diagnosis of D iabetes Mellitus In the absence of hyperglycemia (i.e. pl asma glucose > 200 mg/dL) or classic symptoms of hyperglycemia a repeat measu rement of HbA1c should be performed on a separate sample to confirm the diagnos is. Diagnosis and Classification of Diabetes Mellitus, Diabetes Care 2013; 36: Suppl. 1, T47-29 Est Avg Gluc 111 mg/dL [facility] Comment: eAG equivalents for HbA1c percentages: HbA1c(%) ?eAG(mg/dL) 6.0 ?126 6.5 ?140 7.0 ?154 7.5 ?169 8.0 ?183 8.5 ?197 9.0 ?212 9.5 ?226 10.0 ? 240 Limitations: The eAG calculation has not been validated on women, individuals below 18 years old and above 70 years old, and individuals with hemoglobinopathies. Additional resources are available on [facility] ADA website. Ari ROMERO, Carissa J, Jacqueline R, et al. ??Tr anslating the A1C assay into estimated average glucose values. ??Diabetes Care 2008:31(8):7308-0744. Specimen Anatomical Collection Method Collection Time Receive d Time (Source) Location / / Volume Laterality Blood specimen 09/16/2018 3:33 PM 019 3:49 (specimen) EDT PM EDT Resulting Agency Comment Spec In Lab Javad Urban MD CHEMISTRY ORDERABLES Performing Organization Address City/State/[place] [address] XR Foot Min 3 views Bilat (Generic) (09/16/2018 3:16 PM EDT) Anatomical Region Laterality Modality Foot Bilateral Digital Radiography Specimen (Source) Anatomical Location Collection Method / Collectio n Time Received Time / Laterality Volume Impressions 09/16/2018 3:47 PM EDT ORIF of bilateral complex foot fracture and dislocations. Thank you for letting us participate in the care of this patient. For questions regarding this report, please contact [facility] number below. ? Electronically signed by: Sheila Joaquin [facility] ([phone]), at 09/16/2018 3:47 PM Narrative 09/16/2018 3:47 PM EDT EXAMINATION: XR FOOT MIN 3 VIEWS BILAT (GENERIC) CLINICAL HISTORY: s/p ORIF bilateral f oot fractures, , ??entered by ordering service TECHNIQUE: 3 views each foot COMPARISON: CT scan from August 2018. FINDINGS: Cast material obscures evaluation of bon e and soft tissue details. ORIF of bilateral complex foot fractures and dislocations. Bones: The fracture lines are mostly obs cured by overlying cast. Left K wires traversing 2, 3 and 4 metatarsal s. Additional dorsal fixation plate at base of 4 metatarsal. Right 1. ??1 proximal phalanx-plate and screw fixation of comminuted intra-articular fracture. 2. ??3-5 metatarsals-K wires at bases of metatarsals. 3. ??1 and 2 TMT joint-dorsal plate and screw fixation across metatarsals and cuneiforms. Lisfranc joints: The malalignment at bilateral Lisfranc j oint is reduced. Procedure Note Sheila Joaquin MD - 09/16/2018Formatt ing of this note might be different from the original. EXAMINATION: XR FOOT MIN 3 VIEWS BILAT ( GENERIC) CLINICAL HISTORY: s/p ORIF bilateral f oot fractures, , entered by ordering service TECHNIQUE: 3 views each foot COMPARISON: CT scan from August 2018. FINDINGS: Cast material obscures evaluation of bon e and soft tissue details. ORIF of bilateral complex foot fractures and dislocations. Bones: The fracture lines are mostly obs cured by overlying cast. Left K wires traversing 2, 3 and 4 metatarsal s. Additional dorsal fixation plate at base of 4 metatarsal. Right 1. 1 proximal phalanx-plate and screw fi xation of comminuted intra-articular fracture. 2. 3-5 metatarsals-K wires at bases of m etatarsals. 3. 1 and 2 TMT joint-dorsal plate and sc rew fixation across metatarsals and cuneiforms. Lisfranc joints: The malalignment at bilateral Lisfranc j oint is reduced. IMPRESSION ORIF of bilateral complex foot fracture and dislocations. Thank you for letting us participate in the care of this patient. For questions regarding this report, please contact th e number below. Electronically signed by: Sheila Joaquin [facility] ([phone]), at 09/16/2018 3:47 PM Javad Urban MD IMG DX ORDERABLES POCT Glucose (09/16/2018 1:56 PM EDT) athologist Signature POC Glucose 126 65 - 199 [facility] [place] mg/dL [facility] Comment: Supplemental ranges: <140 mg/dL before meals <180 mg/dL all other times of the day Specimen Anatomical Collection Method Collection Time Receive d Time (Source) Location / / Volume Laterality Blood specimen 09/16/2018 1:56 PM 019 1:56 (specimen) EDT PM EDT Javad Urban MD POINT OF CARE TEST ORDERABLE S Performing Organization Address City/State/Z[place] [address] XR Fluoro No Rad <1Hr - OR Use (09/16/2018 1:10 PM EDT) Specimen (Source) Anatomical Location Collection Method / Collectio n Time Received Time / Laterality Volume Narrative [facility] - 09/16/2018 1:11 PM EDT This order does not need a radiologist i nterpretation. ?? Javad Urban MD IMG FLUORO ORDERABLES Performing Organization Address City/State/ZIP Code Phon e Number [facility] [place], [place] POCT Glucose (09/16/2018 7:46 AM EDT) athologist Signature POC Glucose 131 65 - 199 [facility] mg/dL [facility] Comment: Supplemental ranges: <140 mg/dL before meals <180 mg/dL all other times of the day Specimen Anatomical Collection Method Collection Time Receive d Time (Source) Location / / Volume Laterality Blood specimen 09/16/2018 7:46 AM 019 7:46 (specimen) EDT AM EDT Javad Urban MD POINT OF CARE TEST ORDERABLE S Performing Organization Address City/[facility]/ZIP [place] [address] Urine Hold (09/16/2018 6:07 AM EDT) athologist Signature Urine Hold Sample in [facility]. [facility] Specimen Anatomical Collection Method Collection Time Receive d Time (Source) Location / / Volume Laterality Urine specimen Urine / Unknown 09/16/2018 6:07 AM 08/24 6:54 (specimen) EDT AM EDT Sanket Freeman MD URINE ORDERABLES Performing Organization Address City/[facility]/ZIP [place] [address] (ABNORMAL) Urinalysis with reflex Culture (09/16/2018 6:07 AM EDT) Patholo gist Method Time Signature Glucose [facility]A Negative Negative [facility] Protein UA Negative Negative [facility] Bilirubin UA Negative Negative [facility] Comment: Clinical correlation required for positi ve Urine Bilirubin results as false positive may occur with some drugs and d rug related products. If a false positive is suspected a serum total bili kyle should be considered if clinically indicated. Urobilinogen UA Normal Normal mg/dL [facility] pH UA 6.0 5.0 - 8.0 [facility] Blood UA Negative Negative mg/dL [facility] Ketones UA 5 (A) Negative mg/dL [facility] Nitrite UA Negative Negative [facility] Leukocytes UA Negative Negative [facility] LABORATORY Appearance UA Clear Clear [facility] Spec [place] UA 1.012 1.002 - 1.030 [facility] Color UA Straw Yellow [facility] Culture Reflexed No [facility] Specimen Anatomical Collection Method Collection Time Receive d Time (Source) Location / / Volume Laterality Urine specimen 09/16/2018 6:07 AM 019 6:52 (specimen) EDT AM EDT Resulting Agency Comment Spec In Lab Javad Urban MD URINE ORDERABLES Performing Organization Address City/[facility]/ZIP Code Phon e Number [address] POCT Glucose (09/16/2018 3:30 AM EDT) P athologist Signature POC Glucose 126 65 - 199 [facility] mg/dL [facility] Comment: Supplemental ranges: <140 mg/dL before meals <180 mg/dL all other times of the day Specimen Anatomical Collection Method Collection Time Receive d Time (Source) Location / / Volume Laterality Blood specimen 09/16/2018 3:30 AM 019 3:30 (specimen) EDT AM EDT Javad Urban MD POINT OF CARE TEST ORDERABLE S Performing Organization Address City/[facility]/ZIP Code Phon e Number [address] POCT Glucose (09/15/2018 10:59 PM EDT) athologist Signature POC Glucose 143 65 - 199 [facility] mg/dL [facility] Comment: Supplemental ranges: <140 mg/dL before meals <180 mg/dL all other times of the day Specimen Anatomical Collection Method Collection Time Receive d Time (Source) Location / / Volume Laterality Blood specimen 09/15/2018 10:59 9 (specimen) PM EDT 10:59 PM EDT Javad Urban MD POINT OF CARE TEST ORDERABLE S Performing Organization Address City/State/ZIP Code Phon e Number [address] POCT Glucose (09/15/2018 8:10 PM EDT) athologist Signature POC Glucose 100 65 - 199 [facility] mg/dL [facility] Comment: Supplemental ranges: <140 mg/dL before meals <180 mg/dL all other times of the day Specimen Anatomical Collection Method Collection Time Receive d Time (Source) Location / / Volume Laterality Blood specimen 09/15/2018 8:10 PM 019 8:10 (specimen) EDT PM EDT Javad Urban MD POINT OF CARE TEST ORDERABLE S Performing Organization Address City/[facility]/ZIP Code Phon e Number [address] POCT Glucose (09/15/2018 3:43 PM EDT) athologist Signature POC Glucose 173 65 - 199 [place] mg/dL [facility] Comment: Supplemental ranges: <140 mg/dL before meals <180 mg/dL all other times of the day Specimen Anatomical Collection Method Collection Time Receive d Time (Source) Location / / Volume Laterality Blood specimen 09/15/2018 3:43 PM 019 3:43 (specimen) EDT PM EDT Javad Urban MD POINT OF CARE TEST ORDERABLE S Performing Organization Address City/State/ZIP Code Phon e Number [address] POCT Glucose (09/15/2018 12:05 PM EDT) athologist Signature POC Glucose 177 65 - 199 [facility] mg/dL [facility] Comment: Supplemental ranges: <140 mg/dL before meals <180 mg/dL all other times of the day Specimen Anatomical Collection Method Collection Time Receive d Time (Source) Location / / Volume Laterality Blood specimen 09/15/2018 12:05 9 (specimen) PM EDT 12:05 PM EDT Javad Urban MD POINT OF CARE TEST ORDERABLE S Performing Organization Address City/State/Z[place] [address] (ABNORMAL) POCT Glucose (09/15/2018 7:39 AM EDT) athologist Signature POC Glucose 206 (H) 65 - 199 [facility] mg/dL [facility] Comment: Supplemental ranges: <140 mg/dL before meals <180 mg/dL all other times of the day Specimen Anatomical Collection Method Collection Time Receive d Time (Source) Location / / Volume Laterality Blood specimen 09/15/2018 7:39 AM 019 7:39 (specimen) EDT AM EDT Javad Urban MD POINT OF CARE TEST ORDERABLE S Performing Organization Address City/[facility]/ZIP [place] [address] POCT Glucose (09/15/2018 4:12 AM EDT) athologist Signature POC Glucose 141 65 - 199 [facility] mg/dL [facility] Comment: Supplemental ranges: <140 mg/dL before meals <180 mg/dL all other times of the day Specimen Anatomical Collection Method Collection Time Receive d Time (Source) Location / / Volume Laterality Blood specimen 09/15/2018 4:12 AM 019 4:12 (specimen) EDT AM EDT Javad Urban MD POINT OF CARE TEST ORDERABLE S Performing Organization Address City/State/[place] [address] ABORH Recheck Status (09/15/2018 3:44 AM EDT) [facility] Method Time Signature ABORH Recheck Order Placed [facility] K Order [facility] ABORH Type Complete [facility] LABORATORY Specimen Anatomical Collection Method Collection Time Receive d Time (Source) Location / / Volume Laterality Blood specimen 09/15/2018 3:44 AM 019 3:59 (specimen) EDT AM EDT Resulting Agency Comment Spec In Lab Ori Santos MD BLOOD BANK ORDERABLES Performing Organization Address City/State/Z[place] [address] Antibody screen (09/15/2018 3:44 AM EDT) [facility] Signature Ab Screen Negative [facility] LABORATORY Expires at 09/18/2018 [facility] [id number] on: [facility] Specimen Anatomical Collection Method Collection Time Receive d Time (Source) Location / / Volume Laterality Blood specimen 09/15/2018 3:44 AM 019 3:59 (specimen) EDT AM EDT Resulting Agency Comment Spec In Lab Ori Santos MD BLOOD BANK ORDERABLES Performing Organization Address City/[facility]/ZIP Code Phon e Number [address] ABO/Rh Typing (09/15/2018 3:44 AM EDT) P athologist Signature ABORh Type A Pos [facility] Specimen Anatomical Collection Method Collection Time Receive d Time (Source) Location / / Volume Laterality Blood specimen 09/15/2018 3:44 AM 019 3:59 (specimen) EDT AM EDT Resulting Agency Comment Spec In Lab Ori Santos MD BLOOD BANK ORDERABLES Performing Organization Address City/[facility]/ZIP [place] [address] (ABNORMAL) Differential, Automated (09/15/2018 3:44 AM EDT) [facility] Method Time Signature Neutrophils % 64.7 % [facility] Neutr Abs (ANC) 7.24 (H) 1.70 - [facility] 6.10 [facility] x10(3)/[facility] L LABORATORY Lymphocytes % 21.6 % [facility] Lymphocytes Abs 2.4 0.9 - 3.2 [facility] x10(3)/[facility] LABORATORY Monocytes % 10.8 % [facility] Monocyte Abs 1.2 (H) 0.3 - 0.9 [facility] x10(3)/[facility] LABORATORY Eosinophils % 0.2 % [facility] Eosinophils Abs 0.0 0.0 - 0.4 [facility] x10(3)/[facility] LABORATORY Basophils % 0.4 % [facility] Basophils Abs 0.0 0.0 - 0.1 [facility] x10(3)/[facility] LABORATORY Immature Gran % 2.30 % [facility] Comment: Immature granulocytes(IG's)percentage an d absolute count will include metamyelocytes, myelocytes, and promyelo cytes. Blood smears from CBCs yielding IG's will be scanned manually for concor dance. If this scan disagrees with the automated IG or if promyelocytes are not ed, a manual differential will be performed. Johana Gran Abs 0.26 (H) 0.00 - 0.04 x10(3)/[facility] LABORATORY Specimen Anatomical Collection Method Collection Time Receive d Time (Source) Location / / Volume Laterality Blood specimen 09/15/2018 3:44 AM 019 4:18 (specimen) EDT AM EDT Resulting Agency Comment Spec In Lab Ori Santos MD HEMATOLOGY ORDERABLES Performing Organization Address City/State/[place] [address] (ABNORMAL) Hemogram (09/15/2018 3:44 AM EDT) Analysis Performed At Patho logist Time Signature WBC 11.2 (H) 4.0 - 9.5 [facility] x10(3)/[facility] LABORATORY RBC 3.05 (L) 4.00 - [facility] 5.21 [facility] x10(6)/[facility] LABORATORY Hemoglobin 9.6 (L) 11.7 - [place] 15.5 gm/dL [facility] LABORATORY Hematocrit 29.5 (L) 35.7 - [place] 45.8 % [facility] LABORATORY MCV 96.7 (H) 82.6 - [place] 94.4 [facility] LABORATORY MCH 31.5 27.1 - [place] 32.0 pg [facility] LABORATORY MCHC 32.5 31.7 - [place] 35.0 gm/dL [facility] LABORATORY Platelets 244 145 - 357 [facility] x10(3)/[facility] LABORATORY RDWSD 50.8 (H) 37.0 - [facility] LABORATORY RDWCV 14.3 (H) 11.5 - [facility] 14.1 % [facility] LABORATORY MPV 10.9 7.6 - 12.9 [facility] LABORATORY nRBC % Auto 0.0 % [facility] LABORATORY nRBC Abs Auto 0.000 0.000 - [place] 0.000 [facility] x10(3)/[facility] LABORATORY Specimen Anatomical Collection Method Collection Time Receive d Time (Source) Location / / Volume Laterality Blood specimen 09/15/2018 3:44 AM 019 4:18 (specimen) EDT AM EDT Resulting Agency Comment Spec In Lab Ori Santos MD HEMATOLOGY ORDERABLES Performing Organization Address City/State/[place] [address] Prothrombin Time (09/15/2018 3:44 AM EDT) P athologist Signature PT 12.0 9.4 - 12.5 [facility] LABORATORY INR 1.0 [facility] LABORATORY Comment: An INR <2.0 indicates adequate procoagul ant activity for hemostasis in most patients without underlying bleeding dis orders, though the INR may not adequately reflect hemostatic capacity i n patients with liver disease and synthetic impairment. The recommended ta rget INR range for therapeutic anticoagulation is 2.0 ? 3.0 for most applications, though lower and higher ranges may be appropriate depending on c linical circumstances. Specimen Anatomical Collection Method Collection Time Receive d Time (Source) Location / / Volume Laterality Blood specimen 09/15/2018 3:44 AM 019 4:18 (specimen) EDT AM EDT Resulting Agency Comment Spec In Lab Javad Urban MD HEMATOLOGY ORDERABLES Performing Organization Address City/State/[place] [address] (ABNORMAL) Basic Metabolic Panel (non-fasting) (09/15/2018 3:44 AM EDT) athologist Signature Glucose Lvl 135 65 - 199 [facility] mg/dL [facility] LABORATORY Comment: Diabetes: >=200 mg/dL plus symp toms BUN 18 8 - 18 mg/dL [facility] LABORATORY Creatinine 0.74 0.70 - 1.20 mg/dL [facility] LABORATORY Sodium 142 135 - 145 mmol/L [facility] LABORATORY Potassium 3.6 3.5 - 5.0 mmol/L [facility] LABORATORY Comment: Please note: ??Patients with WBC >100,00 0 may have falsely elevated Potassium levels. ??For accurate Potassium quantif ication in these patients send serum separator tube (gold top) for subsequent determinations. ??Contact the Clinical Chemistry Laboratory if there are any qu estions. Chloride 113 (H) 98 - 107 mmol/L [facility] LABORATORY CO2 20 (L) 22 - 31 mmol/L [facility] LABORATORY Anion Gap 9 5 - 15 mmol/L [facility] LABORATORY Calcium 7.9 (L) 8.5 - 10.5 mg/dL [facility] LABORATORY Estimated GFR 94 >=60 mL/min/1.73 m?? [facility] LABORATORY Comment: The eGFR was calculated using the CKD-EP I equation. As with all creatinine based estimates of kidney function, eGFR values calculated with the CKD-EPI equation are not accurate in patients wi th acute kidney failure, extremes of body mass or the acutely ill. http://CipherMax/DHnkf eGFR 109 >=60 mL/min/1.73 m?? [facility] LABORATORY Comment: The eGFR was calculated using the CKD-EP I equation. As with all creatinine based estimates of kidney function, eGFR values calculated with the CKD-EPI equation are not accurate in patients wi th acute kidney failure, extremes of body mass or the acutely ill. http://CipherMax/DHMCnkf Specimen Anatomical Collection Method Collection Time Receive d Time (Source) Location / / Volume Laterality Blood specimen 09/15/2018 3:44 AM 019 4:18 (specimen) EDT AM EDT Resulting Agency Comment Spec In Lab Javad Urban MD CHEMISTRY ORDERABLES Performing Organization Address City/[facility] Phon e Number [address] POCT Glucose (09/14/2018 9:52 PM EDT) athologist Signature POC Glucose 124 65 - 199 [facility] mg/dL [facility] LABORATORY Comment: Supplemental ranges: <140 mg/dL before meals <180 mg/dL all other times of the day Specimen Anatomical Collection Method Collection Time Receive d Time (Source) Location / / Volume Laterality Blood specimen 09/14/2018 9:52 PM 019 9:52 (specimen) EDT PM EDT Javad Urban MD POINT OF CARE TEST ORDERABLE S Performing Organization Address City/[facility] [place] [address] Film Library- Storage Only MR Head (09/13/2018 12:10 AM EDT) Specimen (Source) Anatomical Location Collection Method / Collectio n Time Received Time / Laterality Volume Narrative [facility] - 09/15/2018 10:49 AM EDT This exam is auto-finalizing. It's purpo se is for storage only. Javad Urban MD IMG FILM LIBRARY ORDERABLES Performing Organization Address City/[facility]/ZIP Code Phon e Number [place], [place] Film Library- Storage Only Ultrasound Study (09/13/2018 12:05 AM EDT) Specimen (Source) Anatomical Location Collection Method / Collectio n Time Received Time / Laterality Volume Narrative [facility] [place] - 09/15/2018 10:47 AM EDT This exam is auto-finalizing. It's purpo se is for storage only. Javad Urban MD IM FILM LIBRARY ORDERABLES Performing Organization Address City/State/ZIP Code Phon e Number [place], [place] Film Library- Storage Only DX Chest (09/13/2018 12:00 AM EDT) Specimen (Source) Anatomical Location Collection Method / Collectio n Time Received Time / Laterality Volume Narrative [place] - 09/15/2018 10:46 AM EDT This exam is auto-finalizing. It's purpo se is for storage only. Javad Urban MD IM FILM LIBRARY ORDERABLES Performing Organization Address City/State/ZIP Code Phon e Number [place], [place] documented in this encounter Visit Diagnoses Not on filedocumented in this encounter Admitting Diagnoses Diagnosis Fracture of unspecified tarsal bone(s) o f unspecified foot, initial encounter for closed fracture documented in this encounter Administered Medications Inactive Administered Medications - up to 3 most recent administrations Medication Order MAR Action Action Date Dose Rate Site acetaminophen (TYLENOL) tablet Given 09/20/2018 12:10 PM EDT 1,0 00 mg 1,000 mg 1,000 mg, Oral, EVERY 8 HOURS SCHEDULED, First dose on Thu09/14/18 at 2315, Until Discontinued, Maximum dose of acetaminophen is 4000 mg from all sources in 24 hours., Routine Given 09/20/2018 5:22 AM EDT 1,000 mg Given 09/19/2018 8:25 PM EDT 1,000 mg calcium citrate (CALCITRATE) tablet 950 mg Given 09/20/2018 9:04 AM EDT 950 mg 950 mg, Oral, DAILY, First dose on Thu09/17/18 at 0900, Until Discontinued, Routine Given 09/19/2018 9:22 AM EDT 950 mg Given 09/18/2018 9:31 AM EDT 950 mg cholecalciferol (Vitamin D3) tablet Given 09/20/2018 9:04 AM EDT 1,000 Units 1,000 Units 1,000 Units, Oral, DAILY, First dose on Thu09/17/18 at 0900, Until Discontinued, Routine Given 09/19/2018 9:22 AM EDT 1,000 Units Given 09/18/2018 9:32 AM EDT 1,000 Units Dextromethorphan HBr 5 mg/5 mL oral syrup 10 Given 12:09 PM EDT 10 mg mg 10 mg, Oral, EVERY 6 HOURS SCHEDULED, First dose on Thu09/17/18 at 1200, Until Discontinued Given 09/20/2018 5:22 AM EDT 10 mg Given 09/19/2018 11:57 PM EDT 10 mg dextrose 50% intravenous solution 25-50 mL 25-50 mL (12.5-25 g), Intravenous, EVERY 1 HOUR PRN, S tarting on Thu09/14/18 at 2058, Until Thu09/20/18 at 1914, Low blood sugar, F or BG 50-70 mg/dL: Oral treatment preferred:?? If able to drink, give 120 mL Juice or Regular (not diet) soda OR If NPO, give 15 gram glucose 40% oral gel massaged into buccal mucosa OR if unconscious or uncooperative, give 12.5 gram (25 mL) Dextrose 50% IV OR, if no IV access, give 1 mg Glucagon IM. For BG less than 50 mg/dL: Oral treatment preferred:?? If able to drink, give 240 mL Juice or Regular (not diet) soda OR If NPO, give 30 gram glucose 40% oral gel m assaged in buccal mucosa OR if unconscious or uncooperative, give 25 gram (50 mL) D extrose 50% IV OR, if no IV access, give 1 mg Glucagon IM. Recheck BG in 30 minutes. May repeat juice, gel, dextrose or glucagon once per episode. To avoid ex travasation, push Dextrose 50% SLOWLY (3 mL over 1 minute) in a patent, running IV, preferably a c entral line. For persistent hypoglycemia, consider longer -acting treatment for the duration of the active insulin., Routine enoxaparin (LOVENOX) injection 40 mg Given 09/19/2018 8:26 PM EDT 40 mg 40 mg, Subcutaneous, NIGHTLY, First dose on Thu09/16/18 at 2100, Until Discontinued, Routine Given 09/18/2018 8:15 PM EDT 40 mg Given 09/17/2018 9:38 PM EDT 40 mg gabapentin (NEURONTIN) capsule 300 mg Given 09/20/2018 9:04 AM EDT 300 mg 300 mg, Oral, 3 TIMES DAILY, First dose on Thu09/17/18 at 1015, Until Discontinued, Routine Given 09/19/2018 8:26 PM EDT 300 mg Given 09/19/2018 3:13 PM EDT 300 mg glucagon (human recombinant) injection S olR 1 mg 1 mg, Intramuscular, EVERY 1 HOUR PRN, S tarting on Thu09/14/18 at 2057, Until Thu09/20/18 at 1914, Low blood sugar, For BG 50-70 mg/d L: Oral treatment preferred:?? If able to drink, give 120 mL Juice or Regular (not diet) soda OR If NPO, give 15 gram glucose 40% oral gel massaged into b uccal mucosa OR if unconscious or uncooperative, give 12.5 gram (25 mL) Dextrose 50% IV OR, if no IV access, give 1 mg Glucagon IM. For BG less than 50 mg/dL: Oral treatment preferred:?? If able to drink, give 240 mL Juice or Regular (not diet) soda OR If NPO, give 30 gram glucose 40% oral gel m assaged in buccal mucosa OR if unconscious or uncooperative, give 25 gram (50 mL) D extrose 50% IV OR, if no IV access, give 1 mg Glucagon IM. Recheck BG in 30 minutes. May repeat juice, gel, dextrose or glucagon once per episode. To avoid ex travasation, push Dextrose 50% SLOWLY (3 mL over 1 minute) in a patent, running IV, preferably a c entral line. For persistent hypoglycemia, consider longer -acting treatment for the duration of the active insulin., Routine glucose (GLUTOSE) 40% oral gel 15-30 g, Buccal, EVERY 30 MIN PRN, Starting on 08/24 at 2057, Until Thu09/20/18 at 1914, Low blood sugar, For BG 50-70 mg/d L: Oral treatment preferred:?? If able to drink, give 120 mL Juice or Regular (not diet) soda OR If NPO, give 15 gram glucose 40% oral gel massaged into b uccal mucosa OR if unconscious or uncooperative, give 12.5 gram (25 mL) Dextrose 50% IV OR, if no IV access, give 1 mg Glucagon IM. For BG less than 50 mg/dL: Oral treatment preferred:?? If able to drink, give 240 mL Juice or Regular (not diet) soda OR If NPO, give 30 gram glucose 40% oral gel m assaged in buccal mucosa OR if unconscious or uncooperative, give 25 gram (50 mL) D extrose 50% IV OR, if no IV access, give 1 mg Glucagon IM. Recheck BG in 30 minutes. May repeat juice, gel, dextrose or glucagon once per episode. To avoid ex travasation, push Dextrose 50% SLOWLY (3 mL over 1 minute) in a patent, running IV, preferably a c entral line. For persistent hypoglycemia, consider longer -acting treatment for the duration of the active insulin. 1 tube contains 15 grams of glucose (n et weight of tube = 37.5 grams., Routine HYDROmorphone (DILAUDID) tablet 2 mg 2 mg, Oral, EVERY 4 HOURS PRN, Starting on Thu09/17/18 at 0956, Until Thu09/20/18 at 191, Pain, for mild pain (1-3), May give an additional 2 mg once if pain not relieved in 30-60 minutes., Routine HYDROmorphone (DILAUDID) tablet 4 mg 4 mg, Oral, EVERY 4 HOURS PRN, Starting on Thu09/17/18 at 0956, Until Thu09/20/18 at 191, Pain, for moderate pain (4-6), May give an additional 2 mg once if pain not relieved in 30-60 minutes., Routine HYDROmorphone (DILAUDID) tablet 6 mg Given 09/20/2018 12:10 PM EDT 6 mg 6 mg, Oral, EVERY 4 HOURS PRN, Starting on Thu09/17/18 at 0956, Until Thu09/20/18 at 191, Pain, for severe pain (7-10), May give an additional 2 mg once if pain not relieved in 30-60 minutes., Routine Given 09/20/2018 7:43 AM EDT 6 mg Given 09/20/2018 2:57 AM EDT 6 mg insulin lispro (HumaLOG) VIAL injection 1-4 Given 08/24 8:59 AM EDT 2 Units Units 1-4 Units, Subcutaneous, EVERY 4 HOURS SCHEDULED, First dose on Thu09/14/18 at 2200, Until Discontinued, CORRECTION BOLUS Sensitive to insulin lean patient or total daily dose of all insulin needed to achieve glycemic control less than 30 units BG 140 - 160 Give 1 unit BG 161 - 200 Give 2 units BG 201 - 240 Give 3 units BG greater than 240, give 4 units and recheck BG in 2 hours. If less than 240 after two hours, give no insulin and resume prior schedule. If BG remains greater than 240, repeat 4 units (no more than three times) & call for new basal insulin orders. DO NOT hold if NPO, unless specifically told to do so., Routine Given 09/19/2018 11:57 PM EDT 1 Units Given 09/19/2018 8:19 PM EDT 1 Units lidocaine (LIDODERM) 5 Patch Applied 09/20/2018 12:12 PM 3 patches 16- Thigh % patch 3 patch EDT Anterior (Right ) 3 patch, Transdermal, EVERY 24 HOURS, First dose on Thu09/17/18 at 1015, Until Discontinued, Apply patch(es) for 12 hours, and then remove for 12 hours, Routine Patch Applied 09/19/2018 12:29 PM EDT 3 patches 20- Other (document in comment section) Patch Applied 09/17/2018 10:28 AM EDT 3 patches 16- Thigh Anterior (Right) lidocaine (LIDODERM) patch REMOVAL Transdermal, EVERY 24 HOURS, First dose on Thu09/17/18 at 2200, Until Discontinued, Remove lidocaine 5 %(700 mg/patch) patch Nicotine inhalation system (Nicotrol Given 09/19/2018 9:26 AM ED T 1 Cartridge Inhaler) 1 cartridge 1-4 Cartridge, Inhalation, EVERY 4 HOURS PRN, Starting on Thu09/15/18 at 1640, Until Thu09/20/18 at 1914, smoking cessation, Start with 1 cartridge. May use additional cartridges based on patient request up to a max of 4 cartridges every 4 hours. Given 09/19/2018 4:49 AM EDT 1 Cartridge Given 09/18/2018 8:14 PM EDT 1 Cartridge ondansetron (ZOFRAN) injection 4 mg Given 09/16/2018 7:21 AM EDT 4 mg 4 mg, Intravenous, EVERY 8 HOURS PRN, Starting on Tu09/14/18 at 2125, Until Thu09/20/18 at 1914, Nausea Given 09/15/2018 9:10 AM EDT 4 mg Given 09/14/2018 9:53 PM EDT 4 mg polyethylene glycol (MIRALAX) packet 17 g Given 09/15/2018 8:19 AM EDT 17 g 17 g, Oral, 2 TIMES DAILY, First dose on Thu09/14/18 at 2315, Until Discontinued, Routine prochlorperazine (COMPAZINE) injection 1 0 mg Given 09/15/2018 8:51 PM EDT 10 mg 10 mg, Intravenous, EVERY 6 HOURS PRN, Starting on Thu09/14/18 at 2329, Until Thu09/20/18 at 1914, Nausea, Routine Given 09/14/2018 11:58 PM EDT 10 mg senna-docusate (PERICOLACE) 8.6-50 mg per Given 2018 9:04 AM EDT 2 tablets tablet 2 tablet 2 tablet, Oral, 2 TIMES DAILY, First dose on Thu09/14/18 at 2315, Until Discontinued, Routine Given 09/19/2018 8:27 PM EDT 2 tablets Given 09/19/2018 9:22 AM EDT 2 tablets simvastatin (ZOCOR) tablet 20 mg Given 09/19/2018 5:09 PM EDT 20 mg 20 mg, Oral, EVERY EVENING, First dose on Thu09/14/18 at 2315, Until Discontinued, Routine Given 09/18/2018 6:09 PM EDT 20 mg Given 09/17/2018 6:22 PM EDT 20 mg sodium chloride 0.9% infusion New Bag 09/16/2018 8:00 PM EDT 1,000 mLs 100 mL/hr 1,000 mL, at 100 mL/hr, Intravenous, CONTINUOUS, Starting on Thu09/14/18 at 2315, Until Thu09/20/18 at 1914 New Bag 09/15/2018 2:10 PM EDT 1,000 mLs 100 mL/hr New Bag 09/15/2018 12:58 AM EDT 1,000 mLs 100 mL/hr documented in this encounter Active and Recently Administered Medications Times are shown in EDT. Scheduled Medication Order 09/18/2018 09/19/2018 09/20/2018 acetaminophen (TYLENOL) tablet 1,000 mg 0501 (Given - Provider: Fely Freeman RN)1327 (Given - Provider: Mai Bose RN)2014 (Given - Provider: Fely Freeman RN) 0413 (Given - Provider: Fely Freeman RN)1226 (Given - Provider: Mai Bose, JULI)2025 (Given - Provider: Stacey Duenas RN) 0522 (Given - Provider: Stacey breaux, RN)1210 (Given - Provider: Tiana Lujan, RN) 1,000 mg, Oral, EVERY 8 HOURS SCHEDULED, First dose on Thu09/14/18 at 2315, Until Discontinued, Maximum dose of acetaminophen is 4000 mg from all sources in 24 hours., Routine calcium citrate (CALCITRATE) tablet 950 mg 0931 (Given - Provider: Mai Bose RN) 0922 (Given - Provider: Mai Bose RN) 0904 (Given - Provider: Tiana Lujan, JULI) 950 mg, Oral, DAILY, First dose on Thu at 0900, Until Discontinued, Routine cholecalciferol (Vitamin D3) tablet 1,000 Units 0932 ( Given - Provider: Mai Bose RN) 0922 (Given - Provider: Mai Bose RN) 0904 (Given - Provider: Tiana Lujan, JULI) 1,000 Units, Oral, DAILY, First dose on Thu09/17/18 at 0900, Until Discontinued, Routine Dextromethorphan HBr 5 mg/5 mL oral syrup 10 mg 0501 ( Given - Provider: Fely Freeman, JULI)1157 (Given - Provider: Mai Bose RN)1809 (Given - Provider: Mai Bose RN)2327 (Given - Provider: Fely Freeman RN) 0514 (Given - Provider: Fely Freeman, JULI)1306 (Given - Provider: Mai Bose RN)1820 (Given - Provider: Mai Bose RN)2357 (Given - Provider: Stacey Duenas RN) 0522 (Given - Provider: Stacey breaux RN)1209 (Given - Provider: Tiana Lujan, JULI) 10 mg, Oral, EVERY 6 HOURS SCHEDULED, Fi rst dose on Thu09/17/18 at 1200, Until Discontinued, Routine enoxaparin (LOVENOX) injection 40 mg 2014 (Given - Pro vider: Fely Freeman RN) 2025 (Given - Provider: Stacey Duenas RN) 40 mg, Subcutaneous, NIGHTLY, First dose on Thu09/16/18 at 2100, Until Discontinued, Routine gabapentin (NEURONTIN) capsule 300 mg 0932 (Given - Pr ovider: Mai Bose RN)152 (Given - Provider: Mai Bose RN)2013 (Given - Provider: Fely Freeman RN) 09 (Given - Provider: Mai austin RN)151 (Given - Provider: Mai Bose RN)2025 (Given - Provider: Stacey Duenas RN) 09 (Given - Provider: Tiana miller RN)1500 (Due) 300 mg, Oral, 3 TIMES DAILY, First dose on Thu09/17/18 at 1015, Until Discontinued, Routine insulin lispro (HumaLOG) VIAL injection 1-4 Units(Link ed Group 1) 0400 (Not Given - Provider: Fely Freeman RN - Reason: Order parameters not met - Comment: FSBS 125)0800 (Not Given - Provider: Mai Bose RN - Reason: Order parameters not met)1210 (Given - Provider: Mai Bose RN) 0400 (Not Given - Provider: Fely Freeman RN - Reason: Order parameters not met - Comment: FSBS 105)0800 (Not Given - Provider: Mai Bose RN - Reason: Order parameters not met)1226 (Given - Provider: Mai Bose RN) 0405 (Not Given - Provider: Stacey Duenas RN - Reason: Order parameters not met)0859 (Given - Provider: Tiana Lujan, JULI)1200 (Not Given - Provider: Tiana Lujan RN - Reason: Order parameters not met)1600 (Due - Provider: Admin Adt) 1-4 Units, Subcutaneous, EVERY 4 HOURS S CHEDULED, First dose on Thu09/14/18 at 2200, Until Discontinued, CORRECTION BOLUS Sensitive to insulin lean patient or total daily dose of all insulin needed 170 (Given - Provider: Mai Bose RN)1999 (Not Given - Provider: Fely Freeman RN - Reason: Order parameters not met - Comment: FSBS 103)2326 (Given - Provider: Fely Freeman, RN) 1707 (Given - Provider: Mai austin RN)2018 (Given - Provider: Stacey Duenas, JULI)235 (Given - Provider: Stacey Duenas, RN) to achieve glycemic control less than 30 units BG 140 - 160 Give 1 unit BG 161 - 200 Give 2 units BG 201 - 240 Give 3 units BG greater than 240, give 4 units and recheck BG in 2 hours. If less than 240 after two hours, give no insulin and res ume prior schedule. If BG remains greater than 240, repeat 4 units (no more than three times) & call for new basal insulin orders. DO NOT hold if NPO, unless specifically told to do so., Routine lidocaine (LIDODERM) 5 % patch 3 patch(Linked Group 2) 0935 (Not Given - Provider: Mai Bose RN - Reason: Patient/family refused - Comment: pt reports these patched don't work, only the Dilaudid works) 1229 (Patch Applied - Provider: Mai Bose RN - Comment: R leg) 1212 (Patch Applied - Provider: Tiana Lujan, JULI) 3 patch, Transdermal, EVERY 24 HOURS, Fi rst dose on Thu09/17/18 at 1015, Until Discontinued, Apply patch(es) for 12 hours, and then remove for 12 hours, Routine lidocaine (LIDODERM) patch REMOVAL(Linked Group 2) 220 0 (Patch Not Removed (add comment) - Provider: Fely Freeman RN - Comment: pt did not have patch on) 2199 (Patch Removed - Provider: Stacey Duenas, JULI) Transdermal, EVERY 24 HOURS, First dose on Thu09/17/18 at 2200, Until Discontinued, Remove lidocaine 5 %(700 mg/patch) patch magnesium sulfate 2 g in sterile water 50 mL (COMPLETE D) 0934 (New Bag - Provider: Mai Bose RN)1134 (Stopped - Provider: Mai Bose, JULI) 2 g, Intravenous, ONCE, 1 dose, Sat 09/18 at 0845, Administer over 120 Minutes polyethylene glycol (MIRALAX) packet 17 g 09 (Not Gi lita - Provider: Mai Bose RN - Reason: Patient/family refused - Comment: pt requesting Dulcolax supp.)2100 (Not Given - Provider: Fely Freeman RN - Reason: Patient/family refused) 09 (Not Given - Provider: Mai smith RN - Reason: Patient/family refused)2026 (Not Given - Provider: Stacey Duenas RN - Reason: Patient/family refused) 09 (Not Given - Provider: Tiana hoang RN - Reason: Patient/family refused) 17 g, Oral, 2 TIMES DAILY, First dose on Thu09/14/18 at 2315, Until Discontinued, Routine potassium chloride (K-DUR/KLOR-CON) extended release t ablet 40 mEq (COMPLETED) 0651 (Given - Provider: Fely Freeman, JULI)1157 (Given - Provider: Mai Bose, JULI)1520 (Given - Provider: Mai Bose, JULI) 40 mEq, Oral, EVERY 4 HOURS, 3 doses, Fi rst dose on 09/18/18 at 0700, Last dose on 09/18/18 at 1500, Routine senna-docusate (PERICOLACE) 8.6-50 mg per tablet 2 tab let 931 (Given - Provider: Mai Bose RN)2013 (Given - Provider: Fely Freeman, JULI) 09 (Given - Provider: Mai Bose, JULI)2026 (Given - Provider: Stacey Duenas, JULI) 0904 (Given - Provider: Tiana miller RN) 2 tablet, Oral, 2 TIMES DAILY, First dos e on Thu09/14/18 at 2315, Until Discontinued, Routine simvastatin (ZOCOR) tablet 20 mg 180 (Given - Provide r: Mai Bose RN) 1709 (Given - Provider: Mai Bose RN) 1700 (Due - Provider: Admin Adt) 20 mg, Oral, EVERY EVENING, First dose o n Thu09/14/18 at 2315, Until Discontinued, Routine Continuous Medication Order 09/18/2018 09/19/2018 09/20/2018 sodium chloride 0.9% infusion 1,000 mL, at 100 mL/hr, Intravenous, CON TINUOUS, Starting Thu09/14/18 at 2315, Until Thu09/20/18 at 1914 PRN Medication Order 09/18/2018 09/19/2018 09/20/2018 dextrose 50% intravenous solution 25-50 mL(Linked Group 3) 25-50 mL (12.5-25 g), Intravenous, EVERY 1 HOUR PRN, Starting Thu09/14/18 at 205, Until Thu09/20/18 at 191, Low blood sugar, For BG 50-70 mg/dL: Oral treatment preferred:?? If able to drink, give 1 20 mL Juice or Regular (not diet) soda O R If NPO, give 15 gram glucose 40% oral gel massaged into buccal mucosa OR if unconscious or uncooperative, give 12.5 gram (25 mL) Dextrose 50% IV OR, if no IV ac cess, give 1 mg Glucagon IM. For BG l ess than 50 mg/dL: Oral treatment preferred:?? If able to drink, give 240 mL Juice or Regular (not diet) soda OR If NPO, give 30 gram glucose 40% oral gel massage d in buccal mucosa OR if unconscious or uncooperative, give 25 gram (50 mL) Dextrose 50% IV OR, if no IV access, give 1 mg Glucagon IM. Recheck BG in 30 minutes. May repeat juice, gel, dextrose or glu cagon once per episode. To avoid extra vasation, push Dextrose 50% SLOWLY (3 mL over 1 minute) in a patent, running IV, preferably a central line. For persistent hypoglycemia, consider longer-acting treatment for the duration of the active insulin., Routine glucagon (human recombinant) injection SolR 1 mg(Linked Group 3) 1 mg, Intramuscular, EVERY 1 HOUR PRN, S tarting Thu09/14/18 at 205, Until Thu09/20/18 at 1914, Low blood sugar, For BG 50-70 mg/dL: Oral treatment preferred:?? If able to drink, give 120 mL Juice or Regular (not diet) soda OR If NPO, give 15 gram glucose 40% oral gel massaged into buccal mucosa OR if unconscious or uncooperative, give 12.5 gram (25 mL) Dextrose 50% IV OR, if no IV access, give 1 m g Glucagon IM. For BG less than 50 mg /dL: Oral treatment preferred:?? If able to drink, give 240 mL Juice or Regular (not diet) soda OR If NPO, give 30 gram glucose 40% oral gel massaged in buccal mu cosa OR if unconscious or uncooperative, give 25 gram (50 mL) Dextrose 50% IV OR, if no IV access, give 1 mg Glucagon IM. Recheck BG in 30 minutes. May repeat juice, gel, dextrose or glucagon once per episode. To avoid extravasation, push Dextrose 50% SLOWLY (3 mL over 1 minute) in a patent, running IV, preferably a central line. For persistent hypoglycemia, consider longer-acting treatment for the duration of the active insulin., Routine glucose (GLUTOSE) 40% oral gel(Linked Group 3) 15-30 g, Buccal, EVERY 30 MIN PRN, Start ing Thu09/14/18 at 2058, Until Thu09/20/18 at 1914, Low blood sugar, For BG 50-70 mg/dL: Oral treatment preferred:?? If able to drink, give 120 mL Juice or Reg ular (not diet) soda OR If NPO, give 15 gram glucose 40% oral gel massaged into buccal mucosa OR if unconscious or uncooperative, give 12.5 gram (25 mL) Dextrose 50% IV OR, if no IV access, give 1 mg Gl ucagon IM. For BG less than 50 mg/dL: Oral treatment preferred:?? If able to drink, give 240 mL Juice or Regular (not diet) soda OR If NPO, give 30 gram glucose 40% oral gel massaged in buccal mucosa OR if unconscious or uncooperative, giv e 25 gram (50 mL) Dextrose 50% IV OR, if no IV access, give 1 mg Glucagon IM. Recheck BG in 30 minutes. May repeat juice, gel, dextrose or glucagon once per epi sode. To avoid extravasation, push Dex trose 50% SLOWLY (3 mL over 1 minute) in a patent, running IV, preferably a central line. For persistent hypoglycemia, consider longer-acting treatment for the duration of the active insulin. 1 tube contains 15 grams of glucose (net weight of tube = 37.5 grams., Routine HYDROmorphone (DILAUDID) tablet 2 mg(Linked Group 4) 0 223 (See Alternative - Provider: Fely Freeman RN)0623 (See Alternative - Provider: Fely Freeman RN)1026 (See Alternative - Provider: Mai Bose, JULI)1520 (See Alternative - Provider: Mai Bose, JULI) 0007 (See Alternative - Provider: Fely Freeman RN)0413 (See Alternative - Provider: Fely Freeman RN)0922 (See Alternative - Provider: Mai Bose RN)1318 (See Alternative - Provider: Mai Bose, JULI) 0257 (See Alternative - Provider: Stacey Duenas, JULI)0743 (See Alternative - Provider: Stacey Duenas, JULI)1210 (See Alternative - Provider: Tiana Lujan, JULI) 2 mg, Oral, EVERY 4 HOURS PRN, Starting Thu09/17/18 at 0956, Until 09/20/18 at 1914, Pain, for mild pain (1-3), May give an additional 2 mg once if pain not relieved in 30-60 minutes., Routine 2013 (See Alternative - Provider: Fely Freeman RN) 1820 (See Alternative - Provider: Marti Cordoba RN)2233 (See Alternative - Provider: Stacey Duenas, JULI) HYDROmorphone (DILAUDID) tablet 4 mg(Linked Group 4) 0 223 (See Alternative - Provider: Fely Freeman RN)0623 (See Alternative - Provider: Fely Freeman RN)1026 (See Alternative - Provider: Mai Bose RN)1520 (See Alternative - Provider: Mai Bose, JULI) 0007 (See Alternative - Provider: Fely Freeman RN)0413 (See Alternative - Provider: Fely Freeman RN)0922 (See Alternative - Provider: Mai Bose RN)1318 (See Alternative - Provider: Mai Bose RN) 0257 (See Alternative - Provider: Stacey Duenas RN)0743 (See Alternative - Provider: Stacey Duenas RN)1210 (See Alternative - Provider: Tiana Lujan, RN) 4 mg, Oral, EVERY 4 HOURS PRN, Starting Thu09/17/18 at 0956, Until 09/20/18 at 1914, Pain, for moderate pain (4-6), May give an additional 2 mg once if pain not relieved in 30-60 minutes., Routine 2013 (See Alternative - Provider: Fely Freeman RN) 182 (See Alternative - Provider: Marti Cordoba RN)2232 (See Alternative - Provider: Stacey Duenas RN) HYDROmorphone (DILAUDID) tablet 6 mg(Linked Group 4) 0 223 (Given - Provider: Fely Freeman RN)0623 (Given - Provider: Fely Freeman RN)1026 (Given - Provider: Mai Bose RN)1520 (Given - Provider: Mai Bose, JULI)2013 (Given - Provider: Fely Freeman RN) 0007 (Given - Provider: Fely Freeman RN)0413 (Given - Provider: Fely Freeman RN)0922 (Given - Provider: Mai Bose, JULI)1318 (Given - Provider: Mai Bose RN)1820 (Given - Provider: Mai Bose RN) 0257 (Given - Provider: Stacey Duenas, JULI)0743 (Given - Provider: Stacey Duenas, JULI)1210 (Given - Provider: Tiana Lujan, RN) 6 mg, Oral, EVERY 4 HOURS PRN, Starting Thu09/17/18 at 0956, Until 09/20/18 at 1914, Pain, for severe pain (7-10), May give an additional 2 mg once if pain not relieved in 30-60 minutes., Routine 2232 (Given - Provider: Stacey Duenas JULI) ipratropium-albuterol (DUONEB) 0.5 mg-3 mg(2.5 mg base)/3 mL nebulizer solution 3 mL 3 mL, Nebulization, EVERY 4 HOURS PRN, S tarting Thu09/14/18 at 2257, Until Thu09/20/18 at 1914, Wheezing, shortness of breath, Routine Nicotine inhalation system (Nicotrol Inhaler) 1 cartri dge 1109 (Given - Provider: Mai Bose, JULI)1527 (Given - Provider: Mai Bose, RN)2013 (Given - Provider: Fely Freeman, RN) 0449 (Given - Provider: Fely Freeman, JULI)0926 (Given - Provider: Mai Bose, JULI) 1-4 Cartridge, Inhalation, EVERY 4 HOURS PRN, Starting Thu09/15/18 at 1640, Until Thu09/20/18 at 1914, smoking cessation, Start with 1 cartridge. May use additional cartridges based on patient request up to a max of 4 cartridges every 4 hours. ondansetron (ZOFRAN) injection 4 mg 4 mg, Intravenous, EVERY 8 HOURS PRN, St arting Thu09/14/18 at 2125, Until Thu09/20/18 at 1914, Nausea prochlorperazine (COMPAZINE) injection 10 mg 10 mg, Intravenous, EVERY 6 HOURS PRN, S tarting Thu09/14/18 at 2329, Until Thu09/20/18 at 1914, Nausea, Routine Linked Groups Order Group 1: POCT Fingerstick Glucose (CANCELED) Routine, EVERY 4 HOURS, First occurrence on Thu09/15/18 at 0000, Until Specified
Consider choosing EVERY 4 HOURS as frequency for: - Type 1 Diabetes - At least 24 hours after coming off an insu melyssa drip - At least 24 hours after admis helene for DKA - Hypoglycemia unawareness - Patients who are otherwise unstable Select the same frequency for the correction bolus insulin order And insulin lispro (HumaLOG) VIAL injection 1-4 UnitsJump to med 1-4 Units, Subcutaneous, EVERY 4 HOURS S CHEDULED, First dose on Thu09/14/18 at 2200, Until Discontinued
CORRECTION BOLUS Sensitive to insulin lean patient or total daily dose of all insulin needed to achieve gl ycemic control less than 30 units BG 140 - 160 Give 1 unit BG 161 - 200 Give 2 units BG 201 - 240 Give 3 units&nbsp ; BG greater than 240, give 4 units and recheck BG in 2 hours. If less than 240 after two hours, give no insulin and resume prior schedule. If BG remains greater than 240, repeat 4 un its (no more than three times) & call fo r new basal insulin orders. DO NOT hold if NPO, unless specifically told to do so.
Routine Group 2: lidocaine (LIDODERM) 5 % patch 3 patchJump to med 3 patch, Transdermal, EVERY 24 HOURS, Fi rst dose on Thu09/17/18 at 1015, Until Discontinued
Apply patch(es) for 12 hours, and then remove for 12 hours
Routine And lidocaine (LIDODERM) patch REMOVALJump to med Transdermal, EVERY 24 HOURS, First dose on Thu09/17/18 at 2200, Until Discontinued
Remove lidocaine 5 %(700 mg/patch) patch
Group 3: glucose (GLUTOSE) 40% oral gelJump to med 15-30 g, Buccal, EVERY 30 MIN PRN, Start ing Thu09/14/18 at 2058, Until Thu09/20/18 at 1914, Low blood sugar
For BG 50-70 mg/dL: Oral treatment preferred:?? If able to drink, give 120 mL Juic e or Regular (not diet) soda OR If NPO, give 15 gram glucose 40% oral gel massaged into buccal mucosa OR if unconscious or uncooperative, give 12.5 gram (25 mL) Dextrose 50% IV OR, if no IV access, give 1 mg Glucagon IM. For BG less than 50 mg/dL: Oral treatment preferred:?? If able to drink, give 240 mL Juice or Regular (not diet) soda OR If NPO, give 30 gram glucose 40% oral gel massage d in buccal mucosa OR if unconscious or uncooperative, give 25 gram (50 mL) Dextrose 50% IV OR, if no IV access, give 1 mg Glucagon IM. Recheck BG in 30 minutes. May repeat juice, gel, dextro se or glucagon once per episode. * *To avoid extravasation, push Dextrose 50% SLOWLY (3 mL over 1 minute) in a patent, running IV, preferably a central line. For persistent hypogly cemia, consider longer-acting treatment for the duration of the active insulin. 1 tube contains 15 grams of glucose (net weight of tube = 37.5 grams.
Routine Or dextrose 50% intravenous solution 25-50 mLJump to med 25-50 mL (12.5-25 g), Intravenous, EVERY 1 HOUR PRN, Starting Thu09/14/18 at 2058, Until Thu09/20/18 at 1914, Low blood sugar
For BG 50-70 mg/dL: Oral treatment preferred:?? If able to drink , give 120 mL Juice or Regular (not diet ) soda OR If NPO, give 15 gram glucose 40% oral gel massaged into buccal mucosa OR if unconscious or uncooperative, give 12.5 gram (25 mL) Dextrose 50% IV OR, if no IV access, give 1 mg Glucagon IM. &nb sp; For BG less than 50 mg/dL: Oral treatment preferred:?? If able to drink, give 240 mL Juice or Regular (not diet) soda OR If NPO, give 30 gram glucose 40 % oral gel massaged in buccal mucosa OR if unconscious or uncooperative, give 25 gram (50 mL) Dextrose 50% IV OR, if no IV access, give 1 mg Glucagon IM. Recheck BG in 30 minutes. May repeat juice, gel, dextrose or glucagon once pe r episode. To avoid extravasation, push Dextrose 50% SLOWLY (3 mL over 1 minute) in a patent, running IV, preferably a central line. For persistent hypoglycemia, consider longer -acting treatment for the duration of the active insulin.
Routine Or glucagon (human recombinant) injection SolR 1 mgJump to med 1 mg, Intramuscular, EVERY 1 HOUR PRN, S tarting Tu09/14/18 at 2058, Until Thu09/20/18 at 1913, Low blood sugar
For BG 50-70 mg/dL: Oral treatment preferred:?? If able to drink, give 120 mL Juice or Regular (not diet) soda OR If N PO, give 15 gram glucose 40% oral gel massaged into buccal mucosa OR if unconscious or uncooperative, give 12.5 gram (25 mL) Dextrose 50% IV OR, if no IV access, give 1 mg Glucagon IM. For BG l ess than 50 mg/dL: Oral treatment preferred:?? If able to drink, give 240 mL Juice or Regular (not diet) soda OR If NPO, give 30 gram glucose 40% oral gel mas saged in buccal mucosa OR if unconscious or uncooperative, give 25 gram (50 mL) Dextrose 50% IV OR, if no IV access, give 1 mg Glucagon IM. Recheck BG in 30 minutes. May repeat juice, gel, de xtrose or glucagon once per episode. &nb sp;To avoid extravasation, push Dextrose 50% SLOWLY (3 mL over 1 minute) in a patent, running IV, preferably a central line. For persistent hyp oglycemia, consider longer-acting treatm ent for the duration of the active insulin.
Routine Group 4: HYDROmorphone (DILAUDID) tablet 2 mgJump to med 2 mg, Oral, EVERY 4 HOURS PRN, Starting Thu09/17/18 at 0956, Until Thu09/20/18 at 1913, Pain, for mild pain (1-3)
May give an additional 2 mg once if pain not relieved in 30-60 minutes.
Routine Or HYDROmorphone (DILAUDID) tablet 4 mgJump to med 4 mg, Oral, EVERY 4 HOURS PRN, Starting Thu09/17/18 at 0956, Until Thu09/20/18 at 191, Pain, for moderate pain (4-6)
May give an additional 2 mg once if pain not relieved in 30-60 minutes.
Routine Or HYDROmorphone (DILAUDID) tablet 6 mgJump to med 6 mg, Oral, EVERY 4 HOURS PRN, Starting Thu09/17/18 at 0956, Until 09/20/18 at 1914, Pain, for severe pain (7-10)
May give an additional 2 mg once if pain not relieved in 30-60 minutes.
Routine documented in this encounter Care Teams Media Promoter Relationship Specialty Start Date End Date None PCP - General 09/14/18 09/30/18 None documented as of this encounter
--- OUTSIDE RECORDS SUMMARY | 2022-02-13 17:05 | XMS_ITS | Encounter Summary ---
:1965 Author Organization [place] [address] Care Team Providers Name Role Phone Yamile De Leon APRN Primary Care Provider Encounter Details Date Type Department Care Team Description 10/08/2018 Office Visit Orthopaedics at [facility] [place] [address] Social History Tobacco Use Types Packs/Day [...] Sign Reading Time Taken Comments Blood Pressure 131/74 10/08/2018 10:48 AM EDT Pulse 85 10/08/2018 10:48 AM EDT Temperature 36.4 ??C (97.6 ??F) 10/08/2018 10:48 AM EDT Respiratory Rate - - Oxygen Saturation - - Inhaled Oxygen Concentration - - Weight - - Height - - Body Mass Index - - documented in this encounter Progress Notes Olivia Salinas - 10/08/2018 10:45 AM EDT Jenae La presents to the clinic today for a cast change due to discomfort. Patient reports her Right cast never loosened and feels tight. The patient's cast was removed by JESSICA Olivarez. The patient's pins are intact. The patient was discussed and seen by Mary Ellison PA-C. The pins were re-padded and a new well padded fiberglass short leg cast with a slight plantar extension was applied on the right side. The patient tolerated the procedure well. The patient was given instruction for cast care and was given instruction to call the clinic with any questions or concerns. documented in this encounter Plan of Treatment Not on filedocumented as of this encounter Visit Diagnoses Diagnosis Cast discomfort Other orthopedic aftercare documented in this encounter Care Teams Aviation Mechanic Relationship Specialty Start Date End Date Yamile De Leon APRN PCP - General Family Medicine 10/01/18 [address] [place] [address] documented as of this encounter
--- OUTSIDE RECORDS SUMMARY | 2022-02-13 17:05 | XMS_ITS | Encounter Summary ---
:1965 Author Organization [facility] [place] [address] Care Team Providers Name Role Phone None Primary Care Provider Unavailable Reason for Visit Auth/Cert Specialty Diagnoses / Procedures Referred By Contact Refer red To Contact Diagnoses Fracture of unspecified tarsal bone(s) of unspecified foot, initial encounter for closed fracture CLOSED HEAD INJURY, FOOT BONE FX'S -CONFUSED Procedures EMERGENCY IPI Referral ID Status Reason Start Date Expiration Date Visits Requ ested Visits Authorized [id number] 1 1 Encounter Details Date Type Department Care Team Description 09/14/2018 - Hospital Encounter 3 [facility] Javad Urban, S/P DEVANTE F bilateral 09/20/2018 [facility] foot fractures, [facility] 09/16/18 (Gitajn) [facility] [address] ORTHOPAEDIC [place], [place] SURGERY [address] [place], [place] [phone] [id number] Social History Tobacco Use Types Packs/Day Years Used Date Former Smoker Sex Assigned at Date Recorded Not on file documented as of this encounter Last Filed Vital Signs Vital Sign Reading Time Taken Comments Blood Pressure 140/78 09/20/2018 11:33 AM EDT Pulse 77 09/20/2018 11:33 AM EDT Temperature 37.5 ??C (99.5 ??F) 09/20/2018 11:33 AM EDT Respiratory Rate 22 09/20/2018 11:33 [...] Jenae La Patient Age: 53 y.o. Language: Djiboutian Race: White Ethnicity: Not nor Admit date: 09/14/2018 Discharge date and time: 09/20/2018 Attending Physician: Javad Urban MD Discharge Physician: Javad Urban MD Follow-up Recommendations for Providers: See discharge instructions for additional details. Future Appointments Date Time Provider Department Center 10/01/2018 10:00 AM [facility] DX ROOM 1 Xray Le[facility] Rad Clin 10/01/2018 11:00 AM Mary Ellison PA Leb Ortho 3C [facility] 11/08/2018 1:00 PM Abdirahman Enamorado MD Leb Neuro [facility] Inpatient Provider Contact Information: Javad Urban MD Orthopedics: [phone] After hours and weekends, call [facility] [employer], , and have the Orthopedic resident paged. [...] the orthopaedics service as a transfer from [facility] for operative management of bilateral [...] multiple times, leading her to present to [facility] on 09/12/2018 for evaluation. ?? Initial work-up at [facility] revealed sepsis secondary to suspected community- acquired pneumonia, mild acute exacerbation of COPD, a closed head injury with postconcussive syndrome, multiple bilateral foot fractures, and MANUEL, resulting in hospital admission. Upon presentation to the [facility] ED, her and her reported instances [...] no active bleeding observed. General Surgery at [facility] evaluated the patient, and felt no further action was required besides outpatient follow up. ?? Upon arrival to [facility], Mrs. La reports moderate pain in her [...] Orthopedic Surgery Service as a transfer from [facility] for definitive operative management of bilateral [...] demonstrated seizure-like activity during her presentation at [facility], thus would recommend consulting Neurology to determine??the need for an EEG to rule out sub-clinical seizure and determine the need to continue keppra. The patient's revised cardiac risk index is a Class I risk (0 points) with a 3.9% 30 day risk of , ID, or cardiac arrest. No further cardiac work [...] as a transferto the orthopedic service from [facility] for bilateral complex foot fractures. ?? [...] Weight: Wt Readings from Last 1 Encounters: 04/24/19 83 kg (183 lb) Height: Ht Readings [...] this report, please contact the number below. Xr Foot Min 3 Views Bilat (generic) [...] this report, please contact the number below. Pending Studies and Lab Data at Discharge: * No orders in the log * Transfusions: No Discharge Conditions/Prognosis: Stable, awake, and alert. Mobilizing as noted above, pain controlledon oral medications. Discharge to: Home HOME HEALTH CARE AGENCY: ??[facility] ?? PHONE: [phone] FAX: [phone] Updated Allergies/ADRs: Allergies Allergen Reactions ??? Sulfa [...] Details ADVAIR DISKUS INHL Refills: 0 BASAGLAR KWIKPEN U-100 INSULIN 100 unit/mL (3 [...] bowel movement. You can also take an jjym-fof-dcaggnc medication, Miralax if needed to combat constipation. [...] skin and wound problems. Call your doctor ([phone]) if you develop: 1. Fever greater than [...] your intake of calcium should be at [id number] a day and your vitamin D intake [...] 1. You will have follow-up appointments at [facility] as indicated in Future Appointment and Orders. Youwill have an xray prior to those appointments so please come to Radiology, desk 3T, 1 hour BEFORE your appointment for those x-rays. Future Appointments Date Time Provider Department Center 10/01/2018 10:00 AM [facility] DX ROOM 1 Xray Leb Rad Clin 10/01/2018 11:00 AM Mary Ellison PA Leb Ortho 3C [facility] 11/08/2018 1:00 PM Abdirahman Enamorado MD Leb Neuro [facility] If you have questions or concerns: [...] Provider Department Dept Phone 10/01/2018 10:00 AM [facility] DX ROOM 1 XRay at [place] Arrive at: Coverage Specialist Rn Area 3T [phone] Please go to Coverage Specialist Rn Area 3T ([place] Location). 10/01/2018 11:00 AM Mary Ellison PA Orthopaedics at [place] Arrive at: [facility] Specialist Rn Area 3C [phone] 11/08/2018 1:00 PM Abdirahman Enamorado MD Neurology at [place] Arrive at: Coverage Specialist Rn Area 3C [phone] Future Orders Complete By Expires Durable Medical [...] board Size requested: Standard Vendor Name/Contact information: [employer] Durable Medical Equipment Order [EQ148 Custom] As directed Process Instructions: Scheduling Instructions: Comments: Jenae La [address] [place] [address] [facility] [phone] ([facility]) No relevant phone numbers on file. Diagnosis:Bilateral fractures both feet requiring surgery Non weight barring Patient's: Hgt: 5'1 Wgt: 183 VENDOR: [employer] Ordering: Drop arm commode needed ARABELLA is required for discharge Questions: Name/Description of requested item: Drop arm Commode Size requested: Standard Vendor Name/Contact information: [employer] Referral to Home Health - at DISCHARGE [MRC8618 CPT(R)] As directed Process Instructions: Scheduling Instructions: Comments: DOCUMENTATION FOR VNA SERVICES (INCLUDING THOSE PATIENTS WITH MEDICARE COVERAGE REQUIRING HOME VNA SERVICES AND/OR HOSPICE SERVICES) PATIENT'S LOCATION: Jenae Jessica [address] [id number] (home) Cell: No relevant phone numbers on file. Supervisor Production's Name: herself with 's assist In discussion with the attending physician, it is certified that this patient is under their care and that they, or a Nurse Practitioner,Clinical Nurse specialist or Physician Health Specialist who is working directly with them, had [...] continue rehab for managing ADL's. Eval for COMMUNITY AFFAIRS MANAGER: HOME HEALTH CARE AGENCY: [facility]. PHONE: [phone] FAX: [phone] Start of care: 09/21/18 FOR MEDICARE ONLY: [...] from this patient'sPCP: LILLY Gaitan [address] / [facility] [address] All VNA agencies which cover the area of patient's residence have been reviewed, either verbally or in writing, and patient/family have chosen the home health care agency noted Questions: Agency name and contact information: [facility] Patient location post discharge: home What [...] information: Harriet Primary Care Provider: LILLY Gaitan [phone] Discharge References/Attachments None documented in this encounter Discharge Instructions Patient InstructionsYvonne LILLY Rodriguez - 09/17/2018 6:58 AM EDT Orthopedic Surgery [...] bowel movement. You can also take an ronp-wdz-oahlwti medication, Miralax if needed to combat constipation. [...] skin and wound problems. Call your doctor ([phone]) if you develop: 1. Fever greater than [...] your intake of calcium should be at [id number] a day and your vitamin D intake [...] 1. You will have follow-up appointments at [facility] as indicated in Future Appointment and Orders. Youwill have an xray prior to those appointments so please come to Radiology, desk 3T, 1 hour BEFORE your appointment for those x-rays. Future Appointments Date Time Provider Department Center 10/01/2018 10:00 AM [facility] DX ROOM 1 Xray Le[facility] Rad Clin 10/01/2018 11:00 AM Mary Ellison PA Leb Ortho 3[facility] 11/08/2018 1:00 PM Abdirahman Enamorado MD Leb Neuro [facility] If you have questions or concerns: Thursday through Thursday, 8 AM - 5 PM, please call Javad Urban MD, 's office at . If it is after [...] ) Service Ortho Pager # Check daily [facility] is unable to supply the commode and the slide board . This personal lines underwriter called several places and found slide board at [facility] and [facility] well that is being serviced . [...] discharge planning. Ivette Álvarez RN CM Pager [phone] Ivette Álvarez RN - 09/20/2018 12:52 PM EDT The patient/claims customer service representative has been provided a list of /DME vendors which serve their preferred geographic area. A letter describing our affiliations was reviewed with them and they were educated abouttheir right to choose where referrals are placed. Patient requests referral to [facility] Expected date of discharge: 09/20/18 Referral routed to the Dry Cure Worker for matching with agency/vendor and to provide any required information. Ivette Álvarez [facility] Beeper #[phone] Ivette Álvarez RN - 09/20/2018 11:14 AM EDT Office of Care Managment (OCM /Caremanger (CM)/ Discharge planning ) Service Ortho Pager # check daily Patient is medically ready to go . Made call to [facility] to verify delivery of Wheelchair , slide board and drop arm commode for today (family said they can pick the items up on the way home ) Thalia from [facility] is checking with [facility] office to make sure items are available for them. Plan: CM will continue to follow for coordination of care and to facilitate discharge planning. ? Ivette Álvarez RN CM Pager [phone] Ori Santos MD - 09/20/2018 5:39 AM [...] likely today, dependent on DME delivery to [facility]'s home. Activity: NWB BLE. Strict elevation in splints. Closure: Sutures (remove 10-14 days) Dressing: DSD, splints. Drain: None Anticoagulation: Lovenox for 30 days Antibiotics: Empiric Ceftriaxone/Azithromycin for suspected CAP Consults: Medicine, Neuro Dispo: Like home today Follow-up: As scheduled Ori Santos MD 09/20/2018 Future Appointments Date Time Provider Department Center 10/01/2018 10:00 AM [facility] DX ROOM 1 Xray Leb Rad [...] with Med Team re pt DC today( [id number]). Pt to dc Thursday Sanket Freeman MD - 09/19/2018 5:51 AM EDT [...] Time Provider Department Center 10/01/2018 10:00 AM [facility] DX ROOM 1 Xray Leb Rad [...] BMI: Weight: 83 kg (183 lb) (09/15/18 09) BMI (Calculated): 34.57 BMI Classification: Obese Body [...] as a transferto the orthopedic service from [facility] for bilateral complex foot fractures. INTERVAL [...] L Elbow flexion 5/5 R, 5/5 L Patents Examiner LE: Deferred due to her pain Sensation: [...] as a transferto the orthopedic service from [facility] for bilateral complex foot fractures. Patient [...] - PGY-3 General Neurology Consults Team Pager #[phone] 09/17/18 Associated attestation - Jose Swan MD - 09/17/2018 4:41 PM EDT I have seen and examined Jenae La with the neurology team on 09/17/2018 and agree with the assessment and plan as below. Face twitching. 53 Y F with history of DJD spine, DM, fibromyalgia being seen by Neurologist at [facility] Episodes of left sided facial twitching Stopped taking gabapentin recently due to side effects. Low suspicion for these being seizures. AEDs not needed at this time Recommended lower doses of gabapentin which she doesn't wish to take. Outpatient neurology followup Jose Swan MD Department of Neurology [facility] Sanket Freeman MD - 09/17/2018 6:04 AM [...] Medicine, Neuro Dispo: rehab Follow-up: TBD. Sanket Freeman MD 09/17/2018 No future appointments. Associated attestation [...] SUBJECTIVE / INTERVAL HISTORY: Ms. La is doing well post op. Patient offers [...] 8:31 AM EDT Internal Medicine Consult Note (#[id number]) Progress Note Patient info: Name: Jenae La : 1965 PCP: LILLY Gaitan PCP phone number: [phone] Date of Admission: 09/14/2018 ( Hospital Day [...] the Orthopedic [facility] complex [...] ??? [Jul] acetaminophen 1,000 mg Oral Q8H DAYANA ### ??? [Jul] levETIRAcetam 1 g Intravenous [...] in the last 7068 hours. Invalid input(s): [id number] Heme: No results for input(s): LDH, HAPTOGLOBIN, URICACID in the last 168 hours. ABG: ABG (Arterial Blood Gas) No results found for: PHART, PO2ART, SRQ0EVD, TJZ6ZTM Microbiology: Site Date and Time Obtained Result [...] Orthopedic Surgery Service as a transfer from [facility] for definitive operative management of bilateral [...] demonstrated seizure-like activity during her presentation at [facility], thus would recommend consulting Neurology to determine the need for an EEG to rule out sub-clinical seizure and determine the need to continue keppra. The patient's revised cardiac risk index is a Class I risk (0 points) with a 3.9% 30 day risk of , ID, or cardiac arrest. No further cardiac work [...] Lyon MD, PGY-3 09/16/2018 Medicine Consult # [id number] Associated attestation - Chris Stahl DO - [...] possible EEG. Pain control per primary team Chris Stahl DO Internal Medicine 09/16/2018 4:10 PM [...] today vs tomorrow pending scheduling availability. Appreciate [facility] medicine recs. - Neuro consult today - Remain NPO for possible OR today - UA today - NWB B/l LE - Pain control: Oral multimodal pain medication - Discharge planning: likely rehab per PT - F/u TBD Sanket Freeman MD PGY-2 Orthopaedics Davin Ann COMPANY CONTROLLER - 09/15/2018 11:00 PM EDT Pt had Nausea, NIV held this evening. Kathrin Madsen RN - 09/15/2018 2:05 PM EDT Based on discussions with the multi-disciplinary healthcare team, the patient would benefit from snf/swing/acute level of care at discharge. ?? I have met with the patient/claims customer service representative to discuss discharge planning needs. I have provided the [facility], Office of Care Management letter from the Internal Sales Engineer pertaining to rehab referrals. I have also provided a letter describing our affiliations within the [facility] and educated them about their right to choose where referrals are placed. ?? I reviewed the different levels of rehab including SNF, swing, acute and LTAC with the patient/claims customer service representative. ?? The patient/claims customer service representative has been provided a list of facilities within their preferred geographic area. ?? I have requested that the patient/claims customer service representative provide at least three choices for referral. ?? The patient/claims customer service representative have requested referrals to: 2.[facility] [address] [place] [address] ?? [phone] 1. [facility] [address] [address] ?? [phone] ?? Expected date of discharge: 09/17/18 Note routed to Dry Cure Worker who will communicate referrals to facilities and [...] % Laboratory: No results found for: PHART, ZEE7OJV, PO2ART, UFH4WHL, BEART Assessment: Called to set pt up [...] to room with call valderrama within reach. Masrosalee Henry MD notified. Will continueto monitor. documented [...] Urban PCP: LILLY Gaitan PCP phone #: [phone] Chief Complaint: Foot pain History of Present Illness: Jenae La is a 53 y.o woman with HTN, HLD, Type II DM, LORRI on CPAP, fibromyalgia with chronic opioid use, and GERD who was admitted to the Orthopedic Surgery Service as a transfer from [facility] for operative management of bilateral complex foot fractures s/p trauma (dropping firewood on her feet) on the evening of 09/11/18 causing bilateral immediate pain, swelling, and bruising making it difficult to ambulate and leading to falls c/b striking her head multiple times. It was with these symptoms that she presented to [facility] on 09/12/18. During her initial presentation in the [facility] ED, the patient reported instances of [...] negative, CSF cultures were reportedly negative. At [facility], she was found to have post-concussive [...] hours of admission. She was admitted to [facility] from 09/12/18 - 09/14/18. Upon arrival at [facility] on 09/15/18, the patient noted moderate bilateral [...] in the last 7068 hours. Invalid input(s): XUTEIERYLVL5M Heme: No results for input(s): LDH, HAPTOGLOBIN, [...] Orthopedic Surgery Service as a transfer from [facility] for definitive operative management of bilateral [...] demonstrated seizure-like activity during her presentation at [facility], thus would recommend consulting Neurology to determine the need for an EEG to rule out sub- clinical seizure and determine the need to continue keppra. The patient's other chronic medical conditions remains stable at this time. See rest of plan below: The patient's revised cardiac risk index is a Class I risk (0 points) with a 3.9% 30 day risk of , ID, or cardiac arrest. No further cardiac work [...] Internal Medicine, PGY- 3 Medicine Consult Pager #[phone] Associated attestation - Chris Stahl DO - [...] assessment and plan include the following: Ms. Jenae La is a 53-year-old female who presented as a transfer from [facility] for operative management of the complex foot fractures due to trauma on 09/11/2018. Her hospital course at [facility] was complicated by an ICU admission due to community-acquired pneumonia, as well as possible focal seizures and postconcussive syndrome. Here at [facility] patient has been clinically stable from pulmonary [...] the orthopaedics service as a transfer from [facility] for operative management of bilateral [...] multiple times, leading her to present to [facility] on 09/12/2018 for evaluation. Initial work-up at [facility] revealed sepsis secondary to suspected community- acquired pneumonia, mild acute exacerbation of COPD, a closed head injury with postconcussive syndrome, multiple bilateral foot fractures, and MANUEL, resulting in hospital admission. Upon presentation to the [facility] ED, her and her reported instances [...] no active bleeding observed. General Surgery at [facility] evaluated the patient, and felt no further action was required besides outpatient follow up. Upon arrival to [facility], Mrs. La reports moderate pain in her [...] Situation: Lives with and multiple pets in [place], [place]. Review of Systems: As per HPI, [...] direct admit to the Orthopaedics service from [facility] for definitive management of bilateral complex [...] AM EDTAssociated Order(s): EEG AWAKE, ASLEEP, DROWSY [facility] Department of Neurology Inpatient EEG Report Name of the Patient: Jenae La Date of : 1965 Date of Service: 09/17/2018 Referring physician: Dr. Abdirahman Enamorado BRIEF HISTORY: Jenae La is a 53 y.o. patient with episodes of tremors at home and witnessed facial and arm twitching at [facility] (witnessed by nursing). Also has hit [...] PRN Sanket Freeman MD 1 Cartridge at 09/17/18351 ??? polyethylene glycol (MIRALAX) packet 17 g 17 g Oral BID Sanket Freeman MD 17 g at 09/15/18818 ??? senna-docusate (PERICOLACE) 8.6-50 mg per tablet [...] injection 10 mg 10 mg Intravenous Q6H PRSanket Friedman MD 10 mg at 09/15/182050 METHODS: A 21 channel digitized electroencephalogram was performed in the [facility] Clinical Neurophysiology Laboratory. The 10/20 international system of electrode placement was used and bipolar and referential electrode montages were recorded. In addition to EEG the patient was monitored for EKG and lateral/vertical eye movements. Video was recorded during the session. The duration of the recording was 30 minutes. PRIMER PRESS OPERATOR'S REPORT: Performed by: RR/CM Patient was not [...] Angel MD Clinical Neurophysiology Fellow Personal Pager #[phone] Epilepsy Neurology #[phone] Neurology Attending I have personally reviewed the EEG, and I agree with the details as written. The above report was formulated in discussion with me at the time of EEG reading, and I agree with it as documented. Jose Singer MD [place] [address] Pager: [phone], #[phone] Email: [email or web address] documented in this encounter Miscellaneous Notes Consult [...] quit. She is not interested in receiving [facility] Tobacco Cessation packet. A: Pt refused consult. P: Encouraged patient to reach out to PCP for nicotine inhaler prescription. Dimitrios Valle MSN, RN-, [facility] Tobacco Special Effects Artist [facility] Pager #[phone] Plan of Care - Stacey Duenas RN [...] ADLs]: Hands on Surveillance [continuous indirect monitoring]: aureliano Goodrichful rounding and nurse knowledge exchange Patient-specific fall [...] on, eyes on. Surveillance [continuous indirect monitoring]: aureliano Goodrichful rounding. Patient-specific fall prevention interventions for sensory [...] assistance with ADL's Surveillance [continuous indirect monitoring]: Masimo, Purposeful Rounding, Bedside Report Patient-specific fall [...] Handling Outcome: Ongoing (Interventions Implemented as Appropriate) 09/17/1884209/17/181957 Burks Fall Risk History of Falling -- [...] to build it this weekend. Pt requests [facility] for her DME. I have spoken with Thalia from the [place] office and she states she cannot get this DME on a Thu afternoon for Sat am but can do this for a Mon d/c. Pt states there is a branch in [facility] that she has used in the past. Pt requests a referral to [facility] for anRN for skilled assessments, PT, OT, and steve for COMMUNITY AFFAIRS MANAGER. Pt requests Of[facility] if possible. I [...] NO xxx Lauren Perales, PT, DPT Pager: [phone] Inpatient Physical Therapy 2017 PT Evaluation Code [...] (Group);Wheelchair Training/Management (Group) Bed Mobility Assessment/Treatment Scoot/Bridge [place] (Bed Mobility) conditional independence Tvwzej-zx-Ndx [place] (Bed Mobility) conditional independence Jqq-gd-Ykhnbb [place] (Bed Mobility) conditional independence Safety Issues (Bed Mobility) decreased use of legs for bridging/pushing Impairments (Bed Mobility) pain;ROM (range of motion) decreased Comment (Bed Mobility) incr time/effort to/from EOB but no physical assistance, NWB maintained throughout, good SLR b/l LEs Transfer Assessment/Treatment Bed-Chair [place] (Transfers) supervision required;conditional independence (initial supervision progressing to ind) Xge-Crhwk-Aux Assistive Device (Transfers) slide board [place] (Toilet Transfers) supervision required;conditional independence Assistive Device [...] with assist, home with home health(PT) Pager: [phone] Ori Bates, OT 09/17/2018 Occupational Therapy Rehabilitation [...] Problem S/P ORIF bilateral foot fractures, 09/16/18 (Gitajrachael) Hearing Precautions/Limitations WFL Precautions/Restrictions fall;weight bearing Precautions [...] pain;ROM (range of motion) decreased;strength decreased Scoot/Bridge [place] (Bed Mobility) conditional independence Txrgbj-ca-Rpk [place] (Bed Mobility) conditional independence Qig-pj-Fceuaj [place] (Bed Mobility) conditional independence Comment (Bed Mobility) Pt performeed bed mobility w/ increased time and pain. Transfer Assessment/Treatment [place] (Toilet Transfers) supervision required;conditional independence Impairments (Transfers) pain;ROM (range of motion) decreased;strength decreased Mdf-Lerop-Nju Assistive Device (Transfers) slide board Bed-Chair [place] (Transfers) supervision required;contact guard assist Comment (Transfers) [...] Body Dressing Assessment/Training Assistive Devices (LB Dressing) bistro attendant Position (LB Dressing) sitting [place] Level (LB Dressing) conditional independence Impairments (LB Dressing) pain;ROM (range of motion) decreased;strength decreased Comment (LB Dressing) Pt donned pants independently, w/ slight increase in time. Toileting Assessment/Training Position (Toileting) sitting [place] Level (Toileting) conditional independence Impairments (Toileting) ROM [...] as Appropriate) 09/15/18 0522 Discharge Needs Assessment Equipment Needed After Discharge [...] as a transferto the orthopedic service from [facility] for bilateral complex foot fractures. Per discussion with the consulting provider, patient was initially admitted to [facility] for bilateral foot fractures. This was in the setting of multiple falls in the previous days leading up to her admission. She was also noted to strike her head multiple times during these falls. In conversation with the patient's at [facility], there was some discussion of some trembling, [...] L Elbow flexion 5/5 R, 5/5 L Patents Examiner LE: Deferred due to her pain Sensation: [...] Negative mcL Appearance UA Clear Clear Spec [place] UA 1.012 1.002 - 1.030 Color UA [...] as a transferto the orthopedic service from [facility] for bilateral complex foot fractures. Discussion with Jenae and her significant other about her initial presentation makes us less concerned for seizure activity. However, it is hard to say what the nurses at [facility] actually saw but they describe twitching [...] about when patient is to be discharged Abdriahman Enamorado MD Neurology Resident - PGY-3 General Neurology Consults Team Pager #[phone] 09/16/18 Associated attestation - German Gu III, [...] as documented. German Gu III, MD Pager: [phone] 7:42 AM 09/17/2018 Op Note - Aparna Reed MD - 09/16/2018 2:02 PM EDT [facility] Operative Note Patient Name: Jenae La : [id number] MR#: [id number] Case Date: 09/16/2018 Surgeon: Surgeon(s) and Role: [...] the second tarsometatarsal joint. We used a ygbws-ta-gtvdh clamp to reduce it, and then fixed [...] the articular surface. We then used a [place] to bring the impacted articular surface down [...] Reed MD - 09/16/2018 1:54 PM EDT [facility] Operative Note- Left foot This patient underwent bilateral procedures. This operative note is for the left foot. Patient Name: Jenae La : [id number] MR#: [id number] Case Date: 09/16/2018 Surgeon: Surgeon(s) and Role: [...] fractures and dislocations. She was seen at [facility] and transferred to [facility] for further care. We discussed the risks [...] third metatarsal fracture was exposed using a [place]. A wbcqi-qp-nwceq clamp was used to control the distal [...] toe extensors. Fracture was exposed using a [place]. A rnntg-cs-mckrb clamp was used to control the distal [...] Implant Name Type Inv. Item Serial No. Electrical Plumbing Supervisor Lot No. LRB No. Used Action PIN,KWIRE,TROC 1 ED,NS,[id number] ([id number]) (AutoReq) - [id number] IMPLANTS PIN,KWIRE,TROC 1 ED,NS,[id number] ([id number]) (AutoReq) [facility] Right 1 Implanted and Explanted SCREW,CRTX,STAP,T8,2.4X16MM ([id number]) - [id number] IMPLANTS SCREW,CRTX,STAP,T8,2.4X16MM ([id number]) [facility] Right 1 Implanted SCREW,CRTX,STAP,T8,2.4X26MM (1985254) - [id number] IMPLANTS SCREW,CRTX,STAP,T8,2.4X26MM ([id number]) [facility] Right 1 Implanted SCREW,CRTX,STAP,T8,2.4X22MM ([id number]) - [id number] IMPLANTS SCREW,CRTX,STAP,T8,2.4X22MM ([id number]) [facility] Right 1 Implanted SCREW,SLFTP,LCK,STAR,2.4X12MM ([id number]) - [id number] IMPLANTS SCREW,SLFTP,LCK,STAR,2.4X12MM ([id number]) [facility] Right 1 Implanted SCREW,LCK,STAP,STAR,2.4X6MM (7563479) - [id number] IMPLANTS SCREW,LCK,STAP,STAR,2.4X6MM (4084591) [facility] Right 1 Implanted SCREW,LCK,STAP,STAR,2.4X18MM (8423381) - [id number] IMPLANTS SCREW,LCK,STAP,STAR,2.4X18MM (8930558) [facility] Right 1 Implanted SCREW,CRTX,STAP,STRDRV,2X9MM (8944229) - [id number] IMPLANTS SCREW,CRTX,STAP,STRDRV,2X9MM (3065926) [facility] Right 1 Implanted SCREW,CRTX,STAP,STAR,2X24MM (0910428) - [id number] IMPLANTS SCREW,CRTX,STAP,STAR,2X24MM (8972323) [facility] Right 1 Wasted SCREW,CRTX,STAP,STAR,2X28MM (0438019) - [id number] IMPLANTS SCREW,CRTX,STAP,STAR,2X28MM (1349397) [facility] Right 1 Implanted SCREW,CRTX,STAP,STAR,2X18MM (3575982) - [id number] IMPLANTS SCREW,CRTX,STAP,STAR,2X18MM (5430145) [facility] Right 1 Implanted SCREW,LCK,STAP,STAR,2X14MM (7422999) - [id number] IMPLANTS SCREW,LCK,STAP,STAR,2X14MM ([id number]) [facility] Right 1 Implanted SCREW,LCK,STAP,STAR,2X18MM (9299445) - [id number] IMPLANTS SCREW,LCK,STAP,STAR,2X18MM (3907828) [facility] Right 1 Implanted PLATE,LCP,7H,2.0X52MM (0589100) - [id number] IMPLANTS PLATE,LCP,7H,2.0X52MM (3053754) [facility]; [facility] Right 1 Implanted PLATE,CNDYLR,LCP,7H,2.4MM (1036880) (AutoReq) - [id number] IMPLANTS PLATE,CNDYLR,LCP,7H,2.4MM ([id number]) (AutoReq) [facility] Right 1 Implanted BONE,CRUSHED,CANCELLOUS,10CC (3178050) (AutoReq) - [id number] IMPLANTS BONE,CRUSHED,CANCELLOUS,10CC (5336616) (AutoReq) [facility] [id number] Right 1 Implanted PIN,KWIRE,TROC 1ED,NS,[id number] ([id number]) - [id number] IMPLANTS PIN,KWIRE,TROC 1ED,NS,[id number] (9829143) [facility] Right 2 Implanted and Explanted PIN,KWIRE,PLAIN,2,0.051P2UP,NS ([id number]) - [id number] IMPLANTS PIN,KWIRE,PLAIN,2,0.001I1EI,NS (5469647) [employer] Left 3 Implanted PLATE,LCP,CNDYLR,7H-SHFT,2MM (0961571) - [id number] IMPLANTS PLATE,LCP,CNDYLR,7H-SHFT,2MM (8040068) [facility] Left 1 Implanted SCREW,LCK,STAP,STAR,2X12MM (6830025) - [id number] IMPLANTS SCREW,LCK,STAP,STAR,2X12MM (6000517) [facility] Left 1 Implanted SCREW,LCK,STAP,STAR,2X10MM (4095945) - [id number] IMPLANTS SCREW,LCK,STAP,STAR,2X10MM (3969536) [facility] Left 1 Implanted SCREW,CRTX,STAP,STAR,2X12MM (5913952) - [id number] IMPLANTS SCREW,CRTX,STAP,STAR,2X12MM (0567336) [facility] Left 1 Implanted SCREW,CRTX,STAP,STAR,2X14MM (9020936) - [id number] IMPLANTS SCREW,CRTX,STAP,STAR,2X14MM (4844801) [facility] Left 1 Implanted SCREW,CRTX,STAP,STAR,2X14MM (1754335) - [id number] IMPLANTS SCREW,CRTX,STAP,STAR,2X14MM (5540349) [facility] Right 1 Implanted SCREW,VA,LCK,SLFTP,T6,2X22MM (2684494) - [id number] IMPLANTS SCREW,VA,LCK,SLFTP,T6,2X22MM (6985597) [employer] Right 1 Implanted SCREW,VA,LCK,SLFTP,T6,2X18MM ([id number]) - [id number] IMPLANTS SCREW,VA,LCK,SLFTP,T6,2X18MM (1376301) [employer] Right 1 Implanted SCREW,VA,LCK,SLFTP,T6,2X16MM (2937030) - [id number] IMPLANTS SCREW,VA,LCK,SLFTP,T6,2X16MM (2334701) [facility] Right 1 Implanted SCREW,CRTX,STAP,STAR,2X16MM (2817518) - [id number] IMPLANTS SCREW,CRTX,STAP,STAR,2X16MM (7115805) [facility] Right 1 Implanted SCREW,CRTX,STAP,STAR,2X12MM ([id number]) - [id number] IMPLANTS SCREW,CRTX,STAP,STAR,2X12MM (1061851) [facility] Right 1 Implanted SCREW,CRTX,STAP,STRDRV,2X10MM (9411661) - [id number] IMPLANTS SCREW,CRTX,STAP,STRDRV,2X10MM (4747383) [facility] Left 1 Implanted GUIDEW,THRD,1.3M829TZ (4294452) - [id number] IMPLANTS GUIDEW,THRD,1.8U664LA (4233999) [facility] Right 3 Implanted Number of fracture regions: [...] or concerns. Lauren Perales PT, DPT Pager: [phone] 09/16/18 Inpatient Rehabilitation Department Plan of Care [...] ADLs]: Eyes on Surveillance [continuous indirect monitoring]: Masimo, purposeful [...] needed during ADLs Surveillance [continuous indirect monitoring]: AYNDY GoodrichE at bedside, purposeful rounding, patient instructed to ring for nurse assist via call valderrama Patient-specific fall prevention interventions for sensory deficits provided, if applicable: [X] Yes CPG GOAL OUTCOME EVALUATION: Goal: Fall Prevention-Safe Patient Handling Outcome: Ongoing (Interventions Implemented as Appropriate) 09/14/18 2152 09/15/18 0830 09/15/18 1403 [place] Fall Risk History [...] Conf Outcome: Ongoing (Interventions Implemented as Appropriate) 09/15/18521 Interdisciplinary Rounds/Family Conf Participants nursing;patient;physician;respiratory therapy Problem: Skin Integrity Impairment, Risk/Actual (Adult) Goal: Identify Related Risk Factors and Signs and Symptoms Related risk factors and signs and symptoms are identified upon initiation of Human Response Clinical Practice Guideline (CPG) Outcome: Ongoing (Interventions Implemented as Appropriate) 09/15/18 05 Skin Integrity Impairment, Risk/Actual Skin Integrity Impairment, [...] OT will follow uppost up as able/appropriate. Ori Valencia OT Pager: [phone] Initial Assessments - Kathrin Madsen RN - [...] driving. Home Environment: lives with her , Kacey. 2 story home, 2 steps to enter. Social & Family Supports/Community Resources: pt states her is very supportive. Behavioral Health History: none noted Substance Use/Abuse: none noted Other Pertinent/Service Specific Information: Health/Prescription Coverage: Primary Insurance: MEDICARE Secondary Insurance: MEDICAID [place] Prescription Coverage: Preferred Pharmacy: [facility] Other: Primary Care Provider: LILLY Gaitan [phone] Patient/Caregiver Goals of Treatment: agreed to go [...] kind. She agrees to snf referrals, #1 [facility], [facility]. Referral submitted. Plan: snf vs swing vs acute. A member of the Care Management team will continue to monitor progress, follow for continuity of care and assist with transition of care planning. Kathrin Madsen RN Pager: [phone] Plan of Care - Horace Beckman PT [...] controlled with scheduled and PRN medication, see MAR. Splint and maricruz wrap to bilateral feet, [...] section. TYPE AND SCREEN Routine 09/15/2018 3:44 ([facility]/IVANIA) AM EDT BASIC METABOLIC PANEL Routine 09/15/2018 [...] Signature POC Glucose 139 65 - 199 [facility] mg/dL [facility] Comment: Supplemental ranges: <140 mg/dL before meals <180 mg/dL all other times of the day Specimen Anatomical Collection Method Collection Time Receive d Time (Source) Location / / Volume Laterality Blood specimen 09/20/2018 11:29 9 (specimen) AM EDT 11:29 AM EDT Javad Urban MD POINT OF CARE TEST ORDERABLE S Performing Organization Address City/State/[place] [address] POCT Glucose (09/20/2018 8:02 AM EDT) athologist Signature POC Glucose 167 65 - 199 [facility] mg/dL [facility] Comment: Supplemental ranges: <140 mg/dL before meals <180 mg/dL all other times of the day Specimen Anatomical Collection Method Collection Time Receive d Time (Source) Location / / Volume Laterality Blood specimen 09/20/2018 8:02 AM 019 8:02 (specimen) EDT AM EDT Javad Urban MD POINT OF CARE TEST ORDERABLE S Performing Organization Address City/State/ZIP Code Phon e Number [address] POCT Glucose (09/20/2018 4:03 AM EDT) athologist Signature POC Glucose 127 65 - 199 [place] mg/dL [facility] Comment: Supplemental ranges: <140 mg/dL before meals <180 mg/dL all other times of the day Specimen Anatomical Collection Method Collection Time Receive d Time (Source) Location / / Volume Laterality Blood specimen 09/20/2018 4:03 AM 019 4:03 (specimen) EDT AM EDT Javad Urban MD POINT OF CARE TEST ORDERABLE S Performing Organization Address City/[facility]/[place]IP [place] [address] POCT Glucose (09/19/2018 11:45 PM EDT) athologist Signature POC Glucose 146 65 - 199 [place] mg/dL [facility] Comment: Supplemental ranges: <140 mg/dL before meals <180 mg/dL all other times of the day Specimen Anatomical Collection Method Collection Time Receive d Time (Source) Location / / Volume Laterality Blood specimen 09/19/2018 11:45 9 (specimen) PM EDT 11:45 PM EDT Javad Urban MD POINT OF CARE TEST ORDERABLE S Performing Organization Address City/State/ZIP Code Phon e Number [address] POCT Glucose (09/19/2018 7:26 PM EDT) athologist Signature POC Glucose 149 65 - 199 [place] mg/dL [facility] Comment: Supplemental ranges: <140 mg/dL before meals <180 mg/dL all other times of the day Specimen Anatomical Collection Method Collection Time Receive d Time (Source) Location / / Volume Laterality Blood specimen 09/19/2018 7:26 PM 019 7:26 (specimen) EDT PM EDT Javad Urban MD POINT OF CARE TEST ORDERABLE S Performing Organization Address City/State/[place] [address] POCT Glucose (09/19/2018 4:14 PM EDT) athologist Signature POC Glucose 144 65 - 199 [place] mg/dL [facility] Comment: Supplemental ranges: <140 mg/dL before meals <180 mg/dL all other times of the day Specimen Anatomical Collection Method Collection Time Receive d Time (Source) Location / / Volume Laterality Blood specimen 09/19/2018 4:14 PM 019 4:14 (specimen) EDT PM EDT Javad Urban MD POINT OF CARE TEST ORDERABLE S Performing Organization Address City/[facility]/[place] [address] POCT Glucose (09/19/2018 11:28 AM EDT) athologist Signature POC Glucose 170 65 - 199 [place] mg/dL [facility] Comment: Supplemental ranges: <140 mg/dL before meals <180 mg/dL all other times of the day Specimen Anatomical Collection Method Collection Time Receive d Time (Source) Location / / Volume Laterality Blood specimen 09/19/2018 11:28 9 (specimen) AM EDT 11:28 AM EDT Javad Urban MD POINT OF CARE TEST ORDERABLE S Performing Organization Address City/State/[place] [address] POCT Glucose (09/19/2018 7:54 AM EDT) athologist Signature POC Glucose 120 65 - 199 [place] mg/dL [facility] Comment: Supplemental ranges: <140 mg/dL before meals <180 mg/dL all other times of the day Specimen Anatomical Collection Method Collection Time Receive d Time (Source) Location / / Volume Laterality Blood specimen 09/19/2018 7:54 AM 019 7:54 (specimen) EDT AM EDT Javad Urban MD POINT OF CARE TEST ORDERABLE S Performing Organization Address City/State/ZIP Code Phon e Number [address] POCT Glucose (09/19/2018 3:42 AM EDT) athologist Signature POC Glucose 105 65 - 199 [facility] Comment: Supplemental ranges: <140 mg/dL before meals <180 mg/dL all other times of the day Specimen Anatomical Collection Method Collection Time Receive d Time (Source) Location / / Volume Laterality Blood specimen 09/19/2018 3:42 AM 019 3:42 (specimen) EDT AM EDT Javad Urban MD POINT OF CARE TEST ORDERABLE S Performing Organization Address City/[facility]/[place] [address] Magnesium (09/19/2018 3:40 AM EDT) athologist Signature Magnesium 0.74 0.69 - 1.07 [facility] mmol/L [facility] Specimen Anatomical Collection Method Collection Time Receive d Time (Source) Location / / Volume Laterality Blood specimen Venous Draw / 09/19/2018 3:40 AM 2018 4:40 (specimen) Unknown EDT AM EDT Resulting Agency Comment Spec In Lab Buffy CARR CHEMISTRY ORDERABLES Performing Organization Address City/[facility]/[place] [address] (ABNORMAL) Basic Metabolic Panel (non-fasting) (09/19/2018 3:40 AM EDT) athologist Signature Glucose Lvl 111 65 - 199 [facility]dL [facility] Comment: Diabetes: >=200 mg/dL plus symp toms BUN 11 8 - 18 mg/dL [facility] Creatinine 0.64 (L) 0.70 - 1.20 mg/dL [facility] Sodium 140 135 - 145 mmol/L [facility] Potassium 4.0 3.5 - 5.0 mmol/L [facility] Comment: Please note: ??Patients with WBC >100,00 0 may have falsely elevated Potassium levels. ??For accurate Potassium quantif ication in these patients send serum separator tube (gold top) for subsequent determinations. ??Contact the Clinical Chemistry Laboratory if there are any qu estions. Chloride 104 98 - 107 mmol/L [facility] CO2 27 22 - 31 mmol/L [facility] Anion Gap 9 5 - 15 mmol/L [facility] Calcium 8.9 8.5 - 10.5 mg/dL [facility] Estimated GFR 103 >=60 mL/min/1.73 m?? [facility] Comment: The eGFR was calculated using the CKD-EP I equation. As with all creatinine based estimates of kidney function, eGFR values calculated with the CKD-EPI equation are not accurate in patients wi th acute kidney failure, extremes of body mass or the acutely ill. [email or web address] eGFR 120 >=60 mL/min/1.73 m?? [facility] Comment: The eGFR was calculated using the CKD-EP I equation. As with all creatinine based estimates of kidney function, eGFR values calculated with the CKD-EPI equation are not accurate in patients wi th acute kidney failure, extremes of body mass or the acutely ill. [email or web address] Specimen Anatomical Collection Method Collection Time Receive d Time (Source) Location / / Volume Laterality Blood specimen 09/19/2018 3:40 AM 019 3:53 (specimen) EDT AM EDT Resulting Agency Comment Spec In Lab Trina Loo APRN CHEMISTRY ORDERABLES Performing Organization Address City/State/[place] [address] POCT Glucose (09/18/2018 11:20 PM EDT) P athologist Signature POC Glucose 150 65 - 199 [facility] mg/dL [facility] Comment: Supplemental ranges: <140 mg/dL before meals <180 mg/dL all other times of the day Specimen Anatomical Collection Method Collection Time Receive d Time (Source) Location / / Volume Laterality Blood specimen 09/18/2018 11:20 9 (specimen) PM EDT 11:20 PM EDT Javad Urban MD POINT OF CARE TEST ORDERABLE S Performing Organization Address City/State/ZIP Code Phon e Number [address] POCT Glucose (09/18/2018 7:57 PM EDT) athologist Signature POC Glucose 103 65 - 199 [place] mg/dL [facility] Comment: Supplemental ranges: <140 mg/dL before meals <180 mg/dL all other times of the day Specimen Anatomical Collection Method Collection Time Receive d Time (Source) Location / / Volume Laterality Blood specimen 09/18/2018 7:57 PM 019 7:57 (specimen) EDT PM EDT Javad Urban MD POINT OF CARE TEST ORDERBERNARDO S Performing Organization Address City/State/ZIP Code Phon e Number [address] POCT Glucose (09/18/2018 4:56 PM EDT) athologist Signature POC Glucose 142 65 - 199 [place] mg/dL [facility] Comment: Supplemental ranges: <140 mg/dL before meals <180 mg/dL all other times of the day Specimen Anatomical Collection Method Collection Time Receive d Time (Source) Location / / Volume Laterality Blood specimen 09/18/2018 4:56 PM 019 4:56 (specimen) EDT PM EDT Javad Urban MD POINT OF CARE TEST ORDERABLE S Performing Organization Address City/State/[place] [address] POCT Glucose (09/18/2018 11:59 AM EDT) athologist Signature POC Glucose 160 65 - 199 [place] mg/dL [facility] Comment: Supplemental ranges: <140 mg/dL before meals <180 mg/dL all other times of the day Specimen Anatomical Collection Method Collection Time Receive d Time (Source) Location / / Volume Laterality Blood specimen 09/18/2018 11:59 9 (specimen) AM EDT 11:59 AM EDT Javad Urban MD POINT OF CARE TEST ORDERABLE S Performing Organization Address City/[facility]/ZIP Code Phon e Number [address] POCT Glucose (09/18/2018 7:55 AM EDT) athologist Signature POC Glucose 126 65 - 199 [place] mg/dL [facility] Comment: Supplemental ranges: <140 mg/dL before meals <180 mg/dL all other times of the day Specimen Anatomical Collection Method Collection Time Receive d Time (Source) Location / / Volume Laterality Blood specimen 09/18/2018 7:55 AM 019 7:55 (specimen) EDT AM EDT Javad Urban MD POINT OF CARE TEST ORDERABLE S Performing Organization Address City/[facility]/ZIP Code Phon e Number [address] POCT Glucose (09/18/2018 3:58 AM EDT) athologist Signature POC Glucose 125 65 - 199 [facility] Comment: Supplemental ranges: <140 mg/dL before meals <180 mg/dL all other times of the day Specimen Anatomical Collection Method Collection Time Receive d Time (Source) Location / / Volume Laterality Blood specimen 09/18/2018 3:58 AM 019 3:58 (specimen) EDT AM EDT Javad Urban MD POINT OF CARE TEST ORDERABLE S Performing Organization Address City/State/ZIP Code Phon e Number [address] (ABNORMAL) Magnesium (09/18/2018 3:37 AM EDT) athologist Signature Magnesium 0.67 (L) 0.69 - 1.07 [facility] mmol/L [facility] Specimen Anatomical Collection Method Collection Time Receive d Time (Source) Location / / Volume Laterality Blood specimen Venous Draw / 09/18/2018 3:37 AM 2018 4:55 (specimen) Unknown EDT AM EDT Resulting Agency Comment Spec In Lab Trina Loo CARLOS CHEMISTRY ORDERABLES Performing Organization Address City/State/[place] [address] (ABNORMAL) Basic Metabolic Panel (non-fasting) (09/18/2018 3:37 AM EDT) athologist Signature Glucose Lvl 106 65 - 199 [facility] mg/dL [facility] Comment: Diabetes: >=200 mg/dL plus symp toms BUN 7 (L) 8 - 18 mg/dL [facility] Creatinine 0.62 (L) 0.70 - 1.20 mg/dL [facility] Sodium 143 135 - 145 mmol/L [facility] Potassium 3.1 (L) 3.5 - 5.0 mmol/L [facility] Comment: Please note: ??Patients with WBC >100,00 0 may have falsely elevated Potassium levels. ??For accurate Potassium quantif ication in these patients send serum separator tube (gold top) for subsequent determinations. ??Contact the Clinical Chemistry Laboratory if there are any qu estions. Chloride 106 98 - 107 mmol/L [facility] CO2 26 22 - 31 mmol/L [facility] Anion Gap 11 5 - 15 mmol/L [facility] Calcium 8.5 8.5 - 10.5 mg/dL [facility] Estimated GFR 104 >=60 mL/min/1.73 m?? [facility] LABORATORY Comment: The eGFR was calculated using the CKD-EP I equation. As with all creatinine based estimates of kidney function, eGFR values calculated with the CKD-EPI equation are not accurate in patients wi th acute kidney failure, extremes of body mass or the acutely ill. [email or web address] eGFR 121 >=60 mL/min/1.73 m?? [facility] LABORATORY Comment: The eGFR was calculated using the CKD-EP I equation. As with all creatinine based estimates of kidney function, eGFR values calculated with the CKD-EPI equation are not accurate in patients wi th acute kidney failure, extremes of body mass or the acutely ill. [email or web address] Specimen Anatomical Collection Method Collection Time Receive d Time (Source) Location / / Volume Laterality Blood specimen 09/18/2018 3:37 AM 019 3:59 (specimen) EDT AM EDT Resulting Agency Comment Spec In Lab Trina Loo APRN CHEMISTRY ORDERABLES Performing Organization Address City/[facility]/ZIP Code Phon e Number [address] POCT Glucose (09/17/2018 11:33 PM EDT) athologist Signature POC Glucose 145 65 - 199 [facility] LABORATORY Comment: Supplemental ranges: <140 mg/dL before meals <180 mg/dL all other times of the day Specimen Anatomical Collection Method Collection Time Receive d Time (Source) Location / / Volume Laterality Blood specimen 09/17/2018 11:33 9 (specimen) PM EDT 11:33 PM EDT Javad Urban MD POINT OF CARE TEST ORDERABLE S Performing Organization Address City/[facility]/[place]IP [place] [address] (ABNORMAL) POCT Glucose (09/17/2018 7:24 PM EDT) athologist Signature POC Glucose 200 (H) 65 - 199 [facility] mg/dL [facility] LABORATORY Comment: Supplemental ranges: <140 mg/dL before meals <180 mg/dL all other times of the day Specimen Anatomical Collection Method Collection Time Receive d Time (Source) Location / / Volume Laterality Blood specimen 09/17/2018 7:24 PM 019 7:24 (specimen) EDT PM EDT Javad Urban MD POINT OF CARE TEST ORDERABLE S Performing Organization Address City/[facility]/ZIP Code Phon e Number [address] POCT Glucose (09/17/2018 3:16 PM EDT) athologist Signature POC Glucose 180 65 - 199 [facility] LABORATORY Comment: Supplemental ranges: <140 mg/dL before meals <180 mg/dL all other times of the day Specimen Anatomical Collection Method Collection Time Receive d Time (Source) Location / / Volume Laterality Blood specimen 09/17/2018 3:16 PM 019 3:16 (specimen) EDT PM EDT Javad Urban MD POINT OF CARE TEST ORDERABLE S Performing Organization Address City/[facility]/[place] [address] POCT Glucose (09/17/2018 12:01 PM EDT) athologist Signature POC Glucose 137 65 - 199 [facility] mg/dL [facility] LABORATORY Comment: Supplemental ranges: <140 mg/dL before meals <180 mg/dL all other times of the day Specimen Anatomical Collection Method Collection Time Receive d Time (Source) Location / / Volume Laterality Blood specimen 09/17/2018 12:01 9 (specimen) PM EDT 12:01 PM EDT Javad Urban MD POINT OF CARE TEST ORDERABLE S Performing Organization Address City/[facility]/[place] [address] EEG awake, asleep, drowsy, routine (09/17/2018 9:30 AM EDT) Narrative Jose Singer MD - 09/17/2018 9:30 A M EDT Jose Singer MD ? 09/21/2018 10:14 AM [facility] Department of Neurology Inpatient EEG Report Name of the Patient: ??Jenae La Date of : ?1965 Date of Service: ?09/17/2018 Referring physician: ?Dr. Abdirahman Potter in[place] BRIEF HISTORY: Jenae La is a 53 y.o. patient wit h episodes of tremors at home and witnessed facial and arm twitch ing at [facility] (witnessed by nursing). Also has hit [...] Sanket Freeman MD ?? 15 mg at 09/17/18843 ? ? potassium chloride (K-DUR/KLOR-CON) extended release tablet 20 mEq ??20 mEq Oral Q4H Sanket Freeman MD ?? 20 mEq at 09/17/1836 ? ? cholecalciferol (Vitamin D3) tablet 1,000 Units ??1,000 Units Oral Daily Buffy Russell PA ?? 1,0 00 Units at 09/17/1843 ? ? calcium citrate (CALCITRATE) tablet 950 [...] Sanket Freeman MD ?? 2 tablet at 09/17/18843 ? ? sodium chloride 0.9% infusion ??1,000 mL Intravenous Continuous Sanket Freeman MD 100 mL/hr at 1999 1,000 mL at 09/16/181999 ? ? acetaminophen (TYLENOL) tablet 1,000 mg ??1,000 mg Oral Q8H Sanket Jamison MD ?? 1,000 mg at 08/24 11/10 0525 ? ? ipratropium-albuterol (DUONEB) 0.5 mg-3 mg(2.5 mg base)/3 mL nebulizer solution 3 mL ??3 mL Nebulizat ion Q4H PRSanket Friedman MD ? simvastatin (ZOCOR) tablet 20 mg ??20 mg Oral QPM Sanket Freeman MD ?? 20 mg at 09/16/181651 ? ? glucose (GLUTOSE) 40% oral gel ??15-30 g Buccal Q30 Min PRSanket Friedman MD ? Or ? ? dextrose 50% intravenous solution 25-50 mL ??12.5-25 g Intravenous Q1H PRN Sanket Freeman MD ? Or ? ? glucagon (human [...] PRSanket Friedman MD ?? 10 mg at 09/15/182050 METHODS: A 21 channel digitized electroencephalog trena was performed in the [facility] Clinical Neurophysiology Laboratory. The 10/20 international system of electrode placement was used and bipolar and referential electrode montag es were recorded. ??In addition to EEG the patient was monitore d for EKG and lateral/vertical eye movements. Video wa s recorded during the session. The duration of the recording w as 30 minutes. PRIMER PRESS OPERATOR'S REPORT:Performed by: RR/CM Patient was not sleep deprived. [...] Angel MD Clinical Neurophysiology Fellow Personal Pager #[phone] Epilepsy Neurology #[phone] Neurology Attending I have personally reviewed the EEG, and I agree with the details as written. ?? The above report was form ulated in discussion with me at the time of EEG reading, and I agr ee with it as documented. Jose Singer MD [place] [address] Pager: [phone], #[phone] Email: [email or web address] Javad Urban MD NEUROLOGY ORDERABLES (ABNORMAL) Basic Metabolic Panel (non-fasting) (09/17/2018 9:02 AM EDT) athologist Signature Glucose Lvl 121 65 - 199 [facility] mg/dL [facility] LABORATORY Comment: Diabetes: >=200 mg/dL plus symp toms BUN 9 8 - 18 mg/dL [facility]ORATORY Creatinine 0.59 (L) 0.70 - 1.20 mg/dL [facility] LABORATORY Sodium 144 135 - 145 mmol/L [facility] LABORAT[facility] Potassium 2.9 (Critical) 3.5 - 5.0 mmol/L [facility] LABORATORY Comment: Called by: maged/sb, Read back by: Aruna Calvo, Date/Time:09/17/18 10:19. Please note: ??Patients with WBC >100,00 0 may have falsely elevated Potassium levels. ??For accurate Potassium quantif ication in these patients send serum separator tube (gold top) for subsequent determinations. ??Contact the Clinical Chemistry Laboratory if there are any qu estions. Chloride 108 (H) 98 - 107 mmol/L [facility]ORAT[facility] CO2 25 22 - 31 mmol/L [facility] Anion Gap 11 5 - 15 mmol/L [facility] LABORATORY Calcium 8.0 (L) 8.5 - 10.5 mg/dL [facility] LABORATORY Estimated GFR 106 >=60 mL/min/1.73 m?? [facility] LABOR[facility] Comment: The eGFR was calculated using the CKD-EP I equation. As with all creatinine based estimates of kidney function, eGFR values calculated with the CKD-EPI equation are not accurate in patients wi th acute kidney failure, extremes of body mass or the acutely ill. [email or web address] eGFR 123 >=60 mL/min/1.73 m?? [facility] Comment: The eGFR was calculated using the CKD-EP I equation. As with all creatinine based estimates of kidney function, eGFR values calculated with the CKD-EPI equation are not accurate in patients wi th acute kidney failure, extremes of body mass or the acutely ill. [email or web address] Specimen Anatomical Collection Method Collection Time Receive d Time (Source) Location / / Volume Laterality Blood specimen 09/17/2018 9:02 AM 019 9:17 (specimen) EDT AM EDT Resulting Agency Comment Spec In Lab Javad Urban MD CHEMISTRY ORDERABLES Performing Organization Address City/State/ZIP Code Phon e Number [address] POCT Glucose (09/17/2018 7:33 AM EDT) athologist Signature POC Glucose 136 65 - 199 [facility]/dL [facility] LABOR[facility] Comment: Supplemental ranges: <140 mg/dL before meals <180 mg/dL all other times of the day Specimen Anatomical Collection Method Collection Time Receive d Time (Source) Location / / Volume Laterality Blood specimen 09/17/2018 7:33 AM 019 7:33 (specimen) EDT AM EDT Javad Urban MD POINT OF CARE TEST ORDERABLE S Performing Organization Address City/[facility]/ZIP Code Phon e Number [address] POCT Glucose (09/17/2018 3:29 AM EDT) athologist Signature POC Glucose 126 65 - 199 [facility] mg/dL [facility] Comment: Supplemental ranges: <140 mg/dL before meals <180 mg/dL all other times of the day Specimen Anatomical Collection Method Collection Time Receive d Time (Source) Location / / Volume Laterality Blood specimen 09/17/2018 3:29 AM 019 3:29 (specimen) EDT AM EDT Javad Urban MD POINT OF CARE TEST ORDERABLE S Performing Organization Address City/[facility]/ZIP Code Phon e Number [address] POCT Glucose (09/16/2018 11:25 PM EDT) athologist Signature POC Glucose 123 65 - 199 [facility] mg/dL [facility] Comment: Supplemental ranges: <140 mg/dL before meals <180 mg/dL all other times of the day Specimen Anatomical Collection Method Collection Time Receive d Time (Source) Location / / Volume Laterality Blood specimen 09/16/2018 11:25 04 9 (specimen) PM EDT 11:25 PM EDT Javad Urban MD POINT OF CARE TEST ORDERABLE S Performing Organization Address City/State/ZIP Code Phon e Number [address] POCT Glucose (09/16/2018 8:29 PM EDT) athologist Signature POC Glucose 114 65 - 199 [facility] mg/dL [facility] Comment: Supplemental ranges: <140 mg/dL before meals <180 mg/dL all other times of the day Specimen Anatomical Collection Method Collection Time Receive d Time (Source) Location / / Volume Laterality Blood specimen 09/16/2018 8:29 PM 019 8:29 (specimen) EDT PM EDT Javad Urban MD POINT OF CARE TEST ORDERABLE S Performing Organization Address City/State/[place] [address] POCT Glucose (09/16/2018 3:35 PM EDT) athologist Signature POC Glucose 106 65 - 199 [facility] mg/dL [facility] Comment: Supplemental ranges: <140 mg/dL before meals <180 mg/dL all other times of the day Specimen Anatomical Collection Method Collection Time Receive d Time (Source) Location / / Volume Laterality Blood specimen 09/16/2018 3:35 PM 019 3:35 (specimen) EDT PM EDT Javad Urban MD POINT OF CARE TEST ORDERABLE S Performing Organization Address City/State/[place] [address] (ABNORMAL) Basic Metabolic Panel (non-fasting) (09/16/2018 3:33 PM EDT) athologist Signature Glucose Lvl 106 65 - 199 [facility] mg/dL [facility] Comment: Diabetes: >=200 mg/dL plus symp toms BUN 13 8 - 18 mg/dL [facility]ORAT[facility] Creatinine 0.62 (L) 0.70 - 1.20 mg/dL [facility]OR[facility] Sodium 147 (H) 135 - 145 mmol/L [facility] Potassium 3.2 (L) 3.5 - 5.0 mmol/L [facility] LABORAT[facility] Comment: Please note: ??Patients with WBC >100,00 0 may have falsely elevated Potassium levels. ??For accurate Potassium quantif ication in these patients send serum separator tube (gold top) for subsequent determinations. ??Contact the Clinical Chemistry Laboratory if there are any qu estions. Chloride 112 (H) 98 - 107 mmol/L [facility] CO2 22 22 - 31 mmol/L [facility] Anion Gap 13 5 - 15 mmol/L [facility]ORATORY Calcium 8.1 (L) 8.5 - 10.5 mg/dL [facility]OR[facility] Estimated GFR 104 >=60 mL/min/1.73 m?? [facility] Comment: The eGFR was calculated using the CKD-EP I equation. As with all creatinine based estimates of kidney function, eGFR values calculated with the CKD-EPI equation are not accurate in patients wi th acute kidney failure, extremes of body mass or the acutely ill. [email or web address] [email or web address] eGFR 121 >=60 mL/min/1.73 m?? [facility] Comment: The eGFR was calculated using the CKD-EP I equation. As with all creatinine based estimates of kidney function, eGFR values calculated with the CKD-EPI equation are not accurate in patients wi th acute kidney failure, extremes of body mass or the acutely ill. [email or web address] [email or web address] Specimen Anatomical Collection Method Collection Time Receive d Time (Source) Location / / Volume Laterality Blood specimen 09/16/2018 3:33 PM 019 3:49 (specimen) EDT PM EDT Resulting Agency Comment Spec In Lab Javad Urban MD CHEMISTRY ORDERABLES Performing Organization Address City/State/[place] [address] Hemoglobin A1c (09/16/2018 3:33 PM EDT) athologist Signature Hemoglobin A1C 5.5 4.3 - 5.6 [facility] LABORATORY Comment: Reference Range: 4.3 - [...] Mellitus, Diabetes Care 2013; 36: Suppl. 1, V87-64 Est Avg Gluc 111 mg/dL [facility]ORATORY Comment: eAG equivalents for HbA1c percentages: HbA1c(%) ?eAG(mg/dL) 6.0 ?126 6.5 ?140 7.0 ?154 7.5 ?169 8.0 ?183 8.5 ?197 9.0 ?212 9.5 ?226 10.0 ? 240 Limitations: The eAG calculation has not been validated on women, individuals below 18 years old and above 70 years old, and individuals with hemoglobinopathies. Additional resources are available on ADA website. Ari ROMERO, Carissa J, Jacqueline R, et al. ??Tr anslating the A1C assay into estimated average glucose values. ??Diabetes Care 2008:31(8):0499-9033. Specimen Anatomical Collection Method Collection Time Receive d Time (Source) Location / / Volume Laterality Blood specimen 09/16/2018 3:33 PM 019 3:49 (specimen) EDT PM EDT Resulting Agency Comment Spec In Lab Javad Urban MD CHEMISTRY ORDERABLES Performing Organization Address City/State/ZIP Code Phon e Number [place] [id number] XR Foot Min 3 [...] For questions regarding this report, please contact [facility] number below. ? Narrative 09/16/2018 3:47 PM EDT EXAMINATION: XR [...] this report, please contact e number below. Javad Urban MD IMG DX ORDERABLES POCT Glucose (09/16/2018 1:56 PM EDT) athologist Signature POC Glucose 126 65 - 199 [facility] mg/dL [facility] Comment: Supplemental ranges: <140 mg/dL before meals <180 mg/dL all other times of the day Specimen Anatomical Collection Method Collection Time Receive d Time (Source) Location / / Volume Laterality Blood specimen 09/16/2018 1:56 PM 019 1:56 (specimen) EDT PM EDT Javad Urban MD POINT OF CARE TEST ORDERABLE S Performing Organization Address City/State/[place] [address] XR Fluoro No Rad [...] Phon e Number DH RAD DH RAD [place], [place] POCT Glucose (09/16/2018 7:46 AM EDT) athologist Signature POC Glucose 131 65 - 199 [facility] mg/dL [facility] Comment: Supplemental ranges: <140 mg/dL before meals <180 mg/dL all other times of the day Specimen Anatomical Collection Method Collection Time Receive d Time (Source) Location / / Volume Laterality Blood specimen 09/16/2018 7:46 AM 019 7:46 (specimen) EDT AM EDT Javad Urban MD POINT OF CARE TEST ORDERABLE S Performing Organization Address City/[facility]/[place]IP [place] [address] Urine Hold (09/16/2018 6:07 AM EDT) athologist Signature Urine Hold Sample in [facility]. [facility] Specimen Anatomical Collection Method Collection Time Receive d Time (Source) Location / / Volume Laterality Urine specimen Urine / Unknown 09/16/2018 6:07 AM 08/24 6:54 (specimen) EDT AM EDT Sanket Freeman MD URINE ORDERABLES Performing Organization Address City/[facility]/[place] [address] (ABNORMAL) Urinalysis with reflex Culture (09/16/2018 6:07 AM EDT) [facility] Method Time Signature Glucose UA Negative Negative [facility] mg/dL [facility] Protein UA Negative Negative [facility] Bilirubin UA Negative Negative [facility] Comment: Clinical correlation required for positi ve Urine Bilirubin results as false positive may occur with some drugs and d rug related products. If a false positive is suspected a serum total bili kyle should be considered if clinically indicated. Urobilinogen UA Normal Normal mg/dL [facility] pH UA 6.0 5.0 - 8.0 [facility] Blood UA Negative Negative mg/dL [facility] Ketones UA 5 (A) Negative mg/dL [facility] Nitrite UA Negative Negative [facility] Leukocytes UA Negative Negative [facility] LABORATORY Appearance UA Clear Clear [facility]OR[facility] Spec [place] UA 1.012 1.002 - 1.030 [facility] LAB[facility] Color UA Straw Yellow [facility] Culture Reflexed No [facility] Specimen Anatomical Collection Method Collection Time Receive d Time (Source) Location / / Volume Laterality Urine specimen 09/16/2018 6:07 AM 019 6:52 (specimen) EDT AM EDT Resulting Agency Comment Spec In Lab Javad Urban MD URINE ORDERABLES Performing Organization Address City/[facility]/ZIP Code Phon e Number [address] POCT Glucose (09/16/2018 3:30 AM EDT) P athologist Signature POC Glucose 126 65 - 199 [facility] Comment: Supplemental ranges: <140 mg/dL before meals <180 mg/dL all other times of the day Specimen Anatomical Collection Method Collection Time Receive d Time (Source) Location / / Volume Laterality Blood specimen 09/16/2018 3:30 AM 019 3:30 (specimen) EDT AM EDT Javad Urban MD POINT OF CARE TEST ORDERABLE S Performing Organization Address City/[facility]/ZIP Code Phon e Number [address] POCT Glucose (09/15/2018 10:59 PM EDT) athologist Signature POC Glucose 143 65 - 199 [facility] mg/dL [facility] Comment: Supplemental ranges: <140 mg/dL before meals <180 mg/dL all other times of the day Specimen Anatomical Collection Method Collection Time Receive d Time (Source) Location / / Volume Laterality Blood specimen 09/15/2018 10:59 9 (specimen) PM EDT 10:59 PM EDT Javad Urban MD POINT OF CARE TEST ORDERABLE S Performing Organization Address City/State/ZIP Code Phon e Number [address] POCT Glucose (09/15/2018 8:10 PM EDT) athologist Signature POC Glucose 100 65 - 199 [facility] mg/dL [facility] Comment: Supplemental ranges: <140 mg/dL before meals <180 mg/dL all other times of the day Specimen Anatomical Collection Method Collection Time Receive d Time (Source) Location / / Volume Laterality Blood specimen 09/15/2018 8:10 PM 019 8:10 (specimen) EDT PM EDT Javad Urban MD POINT OF CARE TEST ORDERABLE S Performing Organization Address City/State/ZIP Code Phon e Number [address] POCT Glucose (09/15/2018 3:43 PM EDT) athologist Signature POC Glucose 173 65 - 199 [facility] mg/dL [facility] Comment: Supplemental ranges: <140 mg/dL before meals <180 mg/dL all other times of the day Specimen Anatomical Collection Method Collection Time Receive d Time (Source) Location / / Volume Laterality Blood specimen 09/15/2018 3:43 PM 019 3:43 (specimen) EDT PM EDT Javad Urban MD POINT OF CARE TEST ORDERABLE S Performing Organization Address City/State/[place] [address] POCT Glucose (09/15/2018 12:05 PM EDT) athologist Signature POC Glucose 177 65 - 199 [facility] mg/dL [facility] Comment: Supplemental ranges: <140 mg/dL before meals <180 mg/dL all other times of the day Specimen Anatomical Collection Method Collection Time Receive d Time (Source) Location / / Volume Laterality Blood specimen 09/15/2018 12:05 9 (specimen) PM EDT 12:05 PM EDT Javad Urban MD POINT OF CARE TEST ORDERABLE S Performing Organization Address City/State/[place] [address] (ABNORMAL) POCT Glucose (09/15/2018 7:39 AM EDT) athologist Signature POC Glucose 206 (H) 65 - 199 [facility] mg/dL [facility] Comment: Supplemental ranges: <140 mg/dL before meals <180 mg/dL all other times of the day Specimen Anatomical Collection Method Collection Time Receive d Time (Source) Location / / Volume Laterality Blood specimen 09/15/2018 7:39 AM 019 7:39 (specimen) EDT AM EDT Javad Urban MD POINT OF CARE TEST ORDERABLE S Performing Organization Address City/State/ZIP Code Phon e Number [address] POCT Glucose (09/15/2018 4:12 AM EDT) athologist Signature POC Glucose 141 65 - 199 [facility] mg/dL [facility] Comment: Supplemental ranges: <140 mg/dL before meals <180 mg/dL all other times of the day Specimen Anatomical Collection Method Collection Time Receive d Time (Source) Location / / Volume Laterality Blood specimen 09/15/2018 4:12 AM 019 4:12 (specimen) EDT AM EDT Javad Urban MD POINT OF CARE TEST ORDERABLE S Performing Organization Address City/State/[place] [address] ABORH Recheck Status (09/15/2018 3:44 AM EDT) [facility] Method Time Signature ABORH Recheck Order Placed [facility] LABORATORY ABORH Type Complete [facility] LABORATORY Specimen Anatomical Collection Method Collection Time Receive d Time (Source) Location / / Volume Laterality Blood specimen 09/15/2018 3:44 AM 019 3:59 (specimen) EDT AM EDT Resulting Agency Comment Spec In Lab Ori Santos MD BLOOD BANK ORDERABLES Performing Organization Address City/State/ZIP Code Phon e Number [address] Antibody screen (09/15/2018 3:44 AM EDT) [facility] Signature Ab Screen Negative [facility] LABORATORY Expires at 09/18/2018 [facility] [id number] on: [facility] LABORATORY Specimen Anatomical Collection Method Collection Time Receive d Time (Source) Location / / Volume Laterality Blood specimen 09/15/2018 3:44 AM 019 3:59 (specimen) EDT AM EDT Resulting Agency Comment Spec In Lab Ori Santos MD BLOOD BANK ORDERABLES Performing Organization Address City/State/[place] [address] ABO/Rh Typing (09/15/2018 3:44 AM EDT) P athologist Signature ABORh Type A Pos [facility] LABORATORY Specimen Anatomical Collection Method Collection Time Receive d Time (Source) Location / / Volume Laterality Blood specimen 09/15/2018 3:44 AM 019 3:59 (specimen) EDT AM EDT Resulting Agency Comment Spec In Lab Ori Santos MD BLOOD BANK ORDERABLES Performing Organization Address City/[facility]/ZIP Code Phon e Number [address] (ABNORMAL) Differential, Automated (09/15/2018 3:44 AM EDT) [facility] Method Time Signature Neutrophils % 64.7 % [facility] LABORATORY Neutr Abs (ANC) 7.24 (H) 1.70 - [facility] 6[facility]10 [facility] x10(3)/[facility] L LABORATORY Lymphocytes % 21.6 % [facility] LABORATORY Lymphocytes Abs 2.4 0.9 - 3.2 [facility] x10(3)/[facility] LABORATORY Monocytes % 10.8 % [facility] LABORATORY Monocyte Abs 1.2 (H) 0.3 - 0.9 [facility] x10(3)/[facility] LABORATORY Eosinophils % 0.2 % [facility] LABORATORY Eosinophils Abs 0.0 0.0 - 0.4 [facility] x10(3)/[facility] LABORATORY Basophils % 0.4 % [facility] LABORATORY Basophils Abs 0.0 0.0 - 0.1 [facility] x10(3)/[facility] LABORATORY Immature Gran % 2.30 % [facility] LABORATORY Comment: Immature granulocytes(IG's)percentage an d absolute count will include metamyelocytes, myelocytes, and promyelo cytes. Blood smears from CBCs yielding IG's will be scanned manually for concor dance. If this scan disagrees with the automated IG or if promyelocytes are not ed, a manual differential will be performed. Johana Gran Abs 0.26 (H) 0.00 - 0.04 x10(3)/[facility] LABORATORY Specimen Anatomical Collection Method Collection Time Receive d Time (Source) Location / / Volume Laterality Blood specimen 09/15/2018 3:44 AM 019 4:18 (specimen) EDT AM EDT Resulting Agency Comment Spec In Lab Ori Santos MD HEMATOLOGY ORDERABLES Performing Organization Address City/State/[place] [address] (ABNORMAL) Hemogram (09/15/2018 3:44 AM EDT) Analysis Performed At Patho logist Time Signature WBC 11.2 (H) 4.0 - 9.5 [facility] x10(3)/[facility] LABORATORY RBC 3.05 (L) 4.00 - [facility] 5.21 [facility] x10(6)/[facility] LABORATORY Hemoglobin 9.6 (L) 11.7 - [facility] [place] 15.5 gm/dL [facility] LABORATORY Hematocrit 29.5 (L) 35.7 - [facility] [place] 45.8 % [facility] LABORATORY MCV 96.7 (H) 82.6 - [facility] [address] [facility] LABORATORY MCH 31.5 27.1 - [place] [place] 32.0 pg [facility] LABORATORY MCHC 32.5 31.7 - [facility] 35.0 gm/dL [facility] LABORATORY Platelets 244 145 - 357 [facility] x10(3)/[facility] LABORATORY RDWSD 50.8 (H) 37.0 - [facility] LABORATORY RDWCV 14.3 (H) 11.5 - [facility] 14.1 % [facility] LABORATORY MPV 10.9 7.6 - 12.9 [facility] nRBC % Auto 0.0 % [facility] LABORATORY nRBC Abs Auto 0.000 0.000 - [facility] 0.000 [facility] x10(3)/[facility] LABORATORY Specimen Anatomical Collection Method Collection Time Receive d Time (Source) Location / / Volume Laterality Blood specimen 09/15/2018 3:44 AM 019 4:18 (specimen) EDT AM EDT Resulting Agency Comment Spec In Lab Ori Santos MD HEMATOLOGY ORDERABLES Performing Organization Address City/State/[place] [address] Prothrombin Time (09/15/2018 3:44 AM EDT) P athologist Signature PT 12.0 9.4 - 12.5 [facility] LABORATORY INR 1.0 [facility] LABORATORY Comment: An INR <2.0 indicates adequate [...] Organization Address City/State/[place] [address] (ABNORMAL) Basic Metabolic Panel (non-fasting) (09/15/2018 3:44 AM EDT) athologist Signature Glucose Lvl 135 65 - 199 [facility] mg/dL [facility] LABORATORY Comment: Diabetes: >=200 mg/dL plus symp toms BUN 18 8 - 18 mg/dL [facility] LABORATORY Creatinine 0.74 0.70 - 1.20 mg/dL [facility] LABORATORY Sodium 142 135 - 145 mmol/L [facility] LABORATORY Potassium 3.6 3.5 - 5.0 mmol/L [facility] LABORATORY Comment: Please note: ??Patients with WBC >100,00 0 may have falsely elevated Potassium levels. ??For accurate Potassium quantif ication in these patients send serum separator tube (gold top) for subsequent determinations. ??Contact the Clinical Chemistry Laboratory if there are any qu estions. Chloride 113 (H) 98 - 107 mmol/L [facility] LABORATORY CO2 20 (L) 22 - 31 mmol/L [facility] LABORATORY Anion Gap 9 5 - 15 mmol/L [facility] LABORATORY Calcium 7.9 (L) 8.5 - 10.5 mg/dL [facility] LABORATORY Estimated GFR 94 >=60 mL/min/1.73 m?? [facility] LABORATORY Comment: The eGFR was calculated using the CKD-EP I equation. As with all creatinine based estimates of kidney function, eGFR values calculated with the CKD-EPI equation are not accurate in patients wi th acute kidney failure, extremes of body mass or the acutely ill. [email or web address].com/DHnkf eGFR 109 >=60 mL/min/1.73 m?? [facility] LABORATORY Comment: The eGFR was calculated using the CKD-EP I equation. As with all creatinine based estimates of kidney function, eGFR values calculated with the CKD-EPI equation are not accurate in patients wi th acute kidney failure, extremes of body mass or the acutely ill. [email or web address]/DHMCnkf Specimen Anatomical Collection Method Collection Time Receive d Time (Source) Location / / Volume Laterality Blood specimen 09/15/2018 3:44 AM 019 4:18 (specimen) EDT AM EDT Resulting Agency Comment Spec In Lab Javad Urban MD CHEMISTRY ORDERABLES Performing Organization Address City/[facility]/ZIP Code Phon e Number [address] POCT Glucose (09/14/2018 9:52 PM EDT) athologist Signature POC Glucose 124 65 - 199 [facility] mg/dL [facility] LABORATORY Comment: Supplemental ranges: <140 mg/dL before meals <180 mg/dL all other times of the day Specimen Anatomical Collection Method Collection Time Receive d Time (Source) Location / / Volume Laterality Blood specimen 09/14/2018 9:52 PM 019 9:52 (specimen) EDT PM EDT Javad Urban MD POINT OF CARE TEST ORDERABLE S Performing Organization Address City/[facility] [place] [address] Film Library- Storage Only MR Head (09/13/2018 12:10 AM EDT) Specimen (Source) Anatomical Location Collection Method / Collectio n Time Received Time / Laterality Volume Narrative [facility] - 09/15/2018 10:49 AM EDT This exam is auto-finalizing. It's purpo se is for storage only. Javad Urban MD IMG FILM LIBRARY ORDERABLES Performing Organization Address City/[facility]/ZIP Code Phon e Number [place], [place] Film Library- Storage Only Ultrasound Study (09/13/2018 12:05 AM EDT) Specimen (Source) Anatomical Location Collection Method / Collectio n Time Received Time / Laterality Volume Narrative [facility] - 09/15/2018 10:47 AM EDT This exam is auto-finalizing. It's purpo se is for storage only. Javad Urban MD IM FILM LIBRARY ORDERABLES Performing Organization Address City/State/ZIP Code Phon e Number [place], [place] Film Library- Storage Only DX Chest (09/13/2018 12:00 AM EDT) Specimen (Source) Anatomical Location Collection Method / Collectio n Time Received Time / Laterality Volume Narrative [facility] - 09/15/2018 10:46 AM EDT This exam is auto-finalizing. It's purpo se is for storage only. Javad Urban MD [facility] FILM LIBRARY ORDERABLES Performing Organization Address City/State/ZIP Code Phon e Number [place], [place] documented in this encounter Visit Diagnoses Diagnosis S/P ORIF bilateral foot fractures, (Gitajn) - Primary documented in this encounter Admitting Diagnoses Diagnosis Fracture [...] Given 09/19/2018 8:25 PM EDT 1,000 mg acetaminophen (TYLENOL) tablet 1,000 mg Given 09/14/2018 9:52 PM EDT 1,000 mg 1,000 mg, Oral, EVERY 6 HOURS SCHEDULED, First dose on Thu09/14/18 at 2145, Until Discontinued, Maximum dose of acetaminophen is 4000 mg from all sources in 24 hours., Routine aspirin EC tablet 81 mg Given 09/16/2018 8:07 AM EDT 81 mg 81 mg, Oral, 2 TIMES DAILY, First dose (after last modification) on Thu09/15/18 at 0900, Until Discontinued, Routine Given 09/15/2018 8:15 PM EDT 81 mg Given 09/15/2018 8:18 AM EDT 81 mg azithromycin (ZITHROMAX) 500 mg New Bag 09/16/2018 11:31 PM ED T 500 mg 255.1 mL/hr in sodium chloride 0.9% 255 mL 500 mg, Intravenous, EVERY 24 HOURS, 3 doses, First dose on Thu09/14/18 at 2315, Last dose on Thu09/16/18 at 2315, Administer over 60 Minutes, Indication for (Active or Suspected): Pneumonia (Community) New Bag 09/15/2018 10:56 PM EDT 500 mg 255.1 mL/hr New Bag 09/15/2018 1:55 AM EDT 500 mg 255.1 mL/hr calcium citrate (CALCITRATE) tablet 950 mg Given 09/20/2018 9:04 AM EDT 950 mg 950 mg, Oral, DAILY, First dose on Thu09/17/18 at 0900, Until Discontinued, Routine Given 09/19/2018 9:22 AM EDT 950 mg Given 09/18/2018 9:31 AM EDT 950 mg cefTRIAXone (ROCEPHIN) 1 g vial attach New Bag 09/16/2018 4:52 PM EDT 1 g 100 mL/hr to sodium chloride 0.9% 50 mL Mini-Bag Plus 1 g, Intravenous, EVERY 24 HOURS, 2 doses, First dose on Thu09/15/18 at 1600, Last dose on Thu09/16/18 at 1600, Administer over 30 Minutes, Indication for (Active or Suspected): Pneumonia (Community) New Bag 09/15/2018 4:21 PM EDT 1 g 100 mL/hr cholecalciferol (Vitamin D3) tablet Given 09/20/2018 9:04 [...] S tarting on Thu09/14/18 at 2058, Until 09/20/18 at 1914, Low blood sugar, F or [...] 40 mg, Subcutaneous, NIGHTLY, First dose on Gloria 09/16/18 at 2100, Until Discontinued, Routine Given 09/18/2018 8:15 PM EDT 40 mg Given 09/17/2018 9:38 PM EDT 40 mg fentaNYL (PF) 50mcg/mL injection Given 09/16/2018 9:15 AM EDT 25 mcg 50 mcg, Intravenous, EVERY 5 MIN PRN, Starting on Gloria 09/16/18 at 0836, Until Golria 09/16/18 at 0925, Pain, or prior to injection of local anesthetic., Hold for respiratory rate less than 8 breaths per minute. (maximum dose 200 mcg), Day of Surgery (Day of Procedure), Routine Given 09/16/2018 9:00 AM EDT 50 mcg gabapentin (NEURONTIN) capsule 300 mg Given 09/20/2018 [...] on 08/24 at 2057, Until Thu09/20/18 at 191, Low blood sugar, For BG 50-70 mg/d [...] tube = 37.5 grams., Routine HYDROmorphone (DILAUDID) injection 0.2-0 .6 mg Given 09/16/2018 2:13 PM EDT 0.2 mg 0.2-0.6 mg, Intravenous, EVERY 5 MIN PRN, Starting on Gloria 09/16/18 at 1318, Until Gloria 09/16/18 at 1502, Pain, Give 0.2 mg every 5 minutes PRN for mild to moderate pain (1-5) Give 0.4 mg every 5 minutes PRN for moderate to severe pain (6-10). Hold for respiratory rate less than 10 per minute. Maximum dose 4 mg over one hour. If multiple pain medications are ordered, start with hydromorphone or morphine and use fentanyl for breakthrough pain., PACU Recovery, Routine HYDROmorphone (DILAUDID) injection 0.4 m g Given 09/17/2018 6:37 AM EDT 0.4 mg 0.4 mg, Intravenous, ONCE, 1 dose, On Thu09/17/18 at 0630, STAT HYDROmorphone (DILAUDID) tablet 2 mg 2 mg, Oral, EVERY 4 HOURS PRN, Starting on Thu09/17/18 at 0956, Until 09/20/18 at 1914, Pain, for mild pain (1-3), May give an additional 2 mg once if pain not relieved in 30-60 minutes., Routine HYDROmorphone (DILAUDID) tablet 4 mg 4 mg, Oral, EVERY 4 HOURS PRN, Starting on Thu09/17/18 at 0956, Until Thu09/20/18 at 1914, Pain, for moderate pain (4-6), May give an additional 2 mg once if pain not relieved in 30-60 minutes., Routine HYDROmorphone (DILAUDID) tablet 6 mg Given 09/20/2018 12:10 PM EDT 6 mg 6 mg, Oral, EVERY 4 HOURS PRN, Starting on Thu09/17/18 at 0956, Until Thu09/20/18 at 1914, Pain, for severe pain (7-10), [...] Given 09/19/2018 8:19 PM EDT 1 Units levETIRAcetam (KEPPRA) 1,000 mg in Given 09/15/2018 8:15 PM EDT 1,000 mg 400 mL/hr sodium chloride (ISO-OSM) 100 mL 1,000 mg (1 g), Intravenous, at 400 mL/hr, EVERY 12 HOURS SCHEDULED (2 times per day), First dose on Thu09/14/18 at 2315, Until Discontinued, Routine Given 09/15/2018 8:21 AM EDT 1,000 mg 400 mL/hr Given 09/15/2018 12:57 AM EDT 1,000 mg 400 mL/hr lidocaine (LIDODERM) 5 Patch Applied 09/20/2018 12:12 [...] magnesium sulfate 2 g in sterile water New Bag 09/18/2018 9:34 AM EDT 2 g 25 mL/hr 50 mL 2 g, Intravenous, ONCE, 1 dose, On 09/18/18 at 0845, Administer over 120 Minutes methylPREDNISolone sodium succinate (PF) Given 09/15/2018 8:17 A M EDT 40 mg (SOLU-Medrol) injection 40 mg 40 mg, Intravenous, 2 TIMES DAILY, First dose on Thu09/14/18 at 2345, Until Discontinued Given 09/15/2018 12:57 AM EDT 40 mg midazolam (PF) (VERSED) injection 1 mg Given 09/16/2018 9:00 AM EDT 1 mg 1 mg, Intravenous, EVERY 5 MIN PRN, Starting on Thu09/16/18 at 0836, Until Thu09/16/18 at 0925, Sleep, or prior to injection of local anesthetic, Hold for delirium/agitation. (Maximum dose 5 mg)., Day of Surgery (Day of Procedure), Routine Nicotine inhalation system (Nicotrol Given 09/19/2018 9:26 AM ED T 1 Cartridge Inhaler) 1 cartridge 1-4 Cartridge, Inhalation, EVERY 4 HOURS PRN, Starting on Thu09/15/18 at 1640, Until 09/20/18 at 1914, smoking cessation, Start with 1 cartridge. May use additional cartridges based on patient request up to a max of 4 cartridges every 4 hours. Given 09/19/2018 4:49 AM EDT 1 Cartridge Given 09/18/2018 8:14 PM EDT 1 Cartridge ondansetron (ZOFRAN) injection 4 mg Given 09/16/2018 7:21 AM EDT 4 mg 4 mg, Intravenous, EVERY 8 HOURS PRN, Starting on Thu09/14/18 at 2125, Until Thu09/20/18 at 1914, Nausea Given 09/15/2018 9:10 AM EDT 4 mg Given 09/14/2018 9:53 PM EDT 4 mg oxyCODONE (ROXICODONE) immediate release Given 09/17/2018 8:44 A M EDT 15 mg tablet 15 mg 15 mg, Oral, EVERY 3 HOURS PRN, Starting on Thu09/17/18 at 0830, Until Thu09/17/18 at 0958, Pain, severe pain or opiate tolerant patient (7-10), Do not start patient with 15 mg dose. Do not give 15 mg if patient is opiate niave., Routine oxyCODONE (ROXICODONE) immediate release tablet Given 09/17/2018 5:34 AM EDT 5 mg 5 mg 5 mg, Oral, ONCE, 1 dose, On Thu09/17/18 at 0545, Routine oxyCODONE (ROXICODONE) immediate release Given 09/16/2018 10:32 PM EDT 10 mg tablet 5-10 mg 5-10 mg, Oral, EVERY 4 HOURS PRN, Starting on Thu09/14/18 at 2257, Until Thu09/17/18 at 0221, Give 5 mg for mild-moderate pain (3-7/10) or 10 mg for severe pain (>7/10)., Routine Given 09/16/2018 6:30 PM EDT 10 mg Given 09/16/2018 2:39 PM EDT 5 mg oxyCODONE (ROXICODONE) immediate release Given 09/17/2018 5:29 A M EDT 10 mg tablet 5-10 mg 5-10 mg, Oral, EVERY 3 HOURS PRN, Starting on Thu09/17/18 at 0230, Until Thu09/17/18 at 0601, Give 5 mg for mild-moderate pain (3-7/10) or 10 mg for severe pain (>7/10)., Routine Given 09/17/2018 2:29 AM EDT 10 mg polyethylene glycol (MIRALAX) packet 17 g Given 09/15/2018 8:19 AM EDT 17 g 17 g, Oral, 2 TIMES DAILY, First dose on Thu09/14/18 at 2315, Until Discontinued, Routine potassium chloride (K-DUR/KLOR-CON) extended Given 3:30 PM EDT 20 mEq release tablet 20 mEq 20 mEq, Oral, EVERY 4 HOURS, 3 doses, First dose on Thu09/17/18 at 0630, Last dose on Thu09/17/18 at 1430, Routine Given 09/17/2018 10:30 AM EDT 20 mEq Given 09/17/2018 6:36 AM EDT 20 mEq potassium chloride (K-DUR/KLOR-CON) extended Given 3:20 PM EDT 40 mEq release tablet 40 mEq 40 mEq, Oral, EVERY 4 HOURS, 3 doses, First dose on Thu09/18/18 at 0700, Last dose on Thu09/18/18 at 1500, Routine Given 09/18/2018 11:57 AM EDT 40 mEq Given 09/18/2018 6:51 AM EDT 40 mEq prochlorperazine (COMPAZINE) injection 1 0 mg Given [...] Fely Freeman RN)1226 (Given - Provider: Mai Bose RN)202 (Given - Provider: Stacey Duenas RN) 05 (Given - Provider: Stacey breaux RN)1210 (Given - Provider: Tiana Lujan, JULI) 1,000 mg, Oral, EVERY 8 HOURS SCHEDULED, [...] mg 0501 ( Given - Provider: Fely Freeman RN)1157 (Given - Provider: Mai Bose RN)1809 (Given - Provider: Mai Bose RN)2327 (Given - Provider: Fely Freeman RN) 0514 (Given - Provider: Fely Freeman RN)1306 (Given - Provider: Mai Bose RN)1820 (Given - Provider: Mai Bose RN)2357 (Given - Provider: Stacey Duenas RN) 0522 (Given - Provider: Stacey breaux RN)1209 (Given - Provider: Tiana Lujan RN) 10 mg, Oral, EVERY 6 HOURS SCHEDULED, Fi rst dose on Thu09/17/18 at 1200, Until Discontinued, Routine enoxaparin (LOVENOX) injection 40 mg 2014 (Given - Pro vider: Fely Freeman RN) 2025 (Given - Provider: Stacey Duenas RN) 40 mg, Subcutaneous, NIGHTLY, First dose on Thu09/16/18 at 2100, Until Discontinued, Routine gabapentin (NEURONTIN) capsule 300 mg 09 (Given - Pr ovider: Mai Bose RN)152 (Given - Provider: Mai Bose RN)2013 (Given - Provider: Fely Freeman RN) 0922 (Given - Provider: Mai austin RN)1513 (Given - Provider: Mai Bose RN)202 (Given - Provider: Stacey Duenas RN) 0904 (Given - Provider: Tiana miller RN)1500 (Due) [...] Order parameters not met)1226 (Given - Provider: Mia Bose RN) 0405 (Not Given - Provider: Stacey Duenas RN - Reason: Order parameters not met)0859 (Given - Provider: Tiana Lujan, JULI)1200 (Not Given - Provider: Tiana Lujan, JULI - Reason: Order parameters not met)1600 (Due - Provider: Admin Adt) 1-4 Units, Subcutaneous, EVERY 4 HOURS S CHEDULED, First dose on Thu09/14/18 at 2200, Until Discontinued, CORRECTION BOLUS Sensitive to insulin lean patient or total daily dose of all insulin needed 1709 (Given - Provider: Mai Bose RN)2000 (Not Given - Provider: Fely Freeman RN - Reason: Order parameters not met - Comment: FSBS 103)2327 (Given - Provider: Fely Freeman RN) 1708 (Given - Provider: Mai austin RN)2019 (Given - Provider: Stacey Duenas, JULI)2357 (Given - Provider: Stacey Duenas, JULI) to achieve glycemic control less than 30 [...] Comment: pt did not have patch on) 2200 (Patch Removed - Provider: Stacey Duenas, JULI) Transdermal, EVERY 24 HOURS, First dose on Thu09/17/18 at 2200, Until Discontinued, Remove lidocaine 5 %(700 mg/patch) patch magnesium sulfate 2 g in sterile water 50 mL (COMPLETE D) 0934 (New Bag - Provider: Mai Bose, JULI)1134 (Stopped - Provider: Mai Bose RN) 2 g, Intravenous, ONCE, 1 dose, Sat 09/18 at 0845, Administer over 120 Minutes polyethylene glycol (MIRALAX) packet 17 g 0932 (Not Gi lita - Provider: Mai Bose RN - Reason: Patient/family refused - Comment: pt requesting Dulcolax supp.)2100 (Not Given - Provider: Fely Freeman RN - Reason: Patient/family refused) 0900 (Not Given - Provider: Mai smith RN - Reason: Patient/family refused)2026 (Not Given - Provider: Stacey Duenas, JULI - Reason: Patient/family refused) 0900 (Not Given - Provider: Tiana hoang, JULI - Reason: Patient/family refused) 17 g, Oral, 2 TIMES DAILY, First dose on Thu09/14/18 at 2315, Until Discontinued, Routine potassium chloride (K-DUR/KLOR-CON) extended release t ablet 40 mEq (COMPLETED) 0651 (Given - Provider: Fely Freeman, JULI)1157 (Given - Provider: Mai Bose, JULI)1520 (Given - Provider: Mai Bose RN) 40 mEq, Oral, EVERY 4 HOURS, 3 doses, Fi rst dose on 09/18/18 at 0700, Last dose on 09/18/18 at 1500, Routine senna-docusate (PERICOLACE) 8.6-50 mg per tablet 2 tab let 0932 (Given - Provider: Mai Bose, JULI)2013 (Given - Provider: Fely Freeman, RN) 921 (Given - Provider: Mai Bose, JULI)2026 (Given - Provider: Stacey Duenas, JULI) 903 (Given - Provider: Tiana miller RN) 2 tablet, Oral, 2 TIMES DAILY, First dos e on Thu09/14/18 at 2315, Until Discontinued, Routine simvastatin (ZOCOR) tablet 20 mg 180 (Given - Provide r: Mai Bose RN) 170 (Given - Provider: Mai Bose RN) 1700 [...] Starting Thu09/14/18 at 2058, Until Thu09/20/18 at 191, Low blood sugar, [...] 1 HOUR PRN, S tarting Thu09/14/18 at 2057, Until Thu09/20/18 at 191, Low blood sugar, [...] 30 MIN PRN, Start ing Thu09/14/18 at 2057, Until Thu09/20/18 at 1914, [...] Bose, JULI)1520 (See Alternative - Provider: Mai Bose RN) 0007 (See Alternative - Provider: Fely Freeman RN)0413 (See Alternative - Provider: Fely Freeman RN)0922 (See Alternative - Provider: Mai Bose, JULI)1318 (See Alternative - Provider: Mai Bose RN) 0257 (See Alternative - Provider: Stacey Duenas, JULI)0743 (See Alternative - Provider: Stacey Duenas, RN)1210 (See Alternative - Provider: Tiana Lujan, RN) 2 mg, Oral, EVERY 4 HOURS PRN, Starting Thu09/17/18 at 0956, Until Thu09/20/18 at 1914, Pain, for mild pain (1-3), May give an additional 2 mg once if pain not relieved in 30-60 minutes., Routine 2013 (See Alternative - Provider: Fely Freeman RN) 1819 (See Alternative - Provider: Marti Cordoba RN)2232 (See Alternative - Provider: Stacey Duenas, JULI) [...] Freeman RN)0922 (See Alternative - Provider: Mai Bose, JULI)1318 (See Alternative - Provider: Mai Bose, JULI) 0257 (See Alternative - Provider: Stacey Duenas, JULI)0743 (See Alternative - Provider: Stacey Duenas, JULI)1210 (See Alternative - Provider: Tiana Lujan, JULI) 4 mg, Oral, EVERY 4 HOURS PRN, Starting 09/17/18 at 0956, Until 09/20/18 at 1914, Pain, for moderate pain (4-6), May give an additional 2 mg once if pain not relieved in 30-60 minutes., Routine 2013 (See Alternative - Provider: Fely Freeman RN) 1819 (See Alternative - Provider: Marti Cordoba RN)2232 (See Alternative - Provider: Stacey Duenas, JULI) HYDROmorphone (DILAUDID) tablet 6 mg(Linked Group 4) 0 223 (Given - Provider: Fely Freeman RN)0623 (Given - Provider: Fely Freeman RN)1026 (Given - Provider: Mai Bose RN)1520 (Given - Provider: Mai Bose, JULI)2013 (Given - Provider: Fely Freeman RN) 0007 (Given - Provider: Fely Freeman, JULI)0413 (Given - Provider: Fely Freeman, RN)0922 (Given - Provider: Mai Bose, JULI)1318 (Given - Provider: Mai Bose, JULI)1820 (Given - Provider: Mai Bose, JULI) 0257 (Given - Provider: Stacey Duenas, RN)0743 (Given - Provider: Stacey Duenas, RN)1210 (Given - Provider: Tiana Lujan, JULI) 6 mg, Oral, EVERY 4 HOURS PRN, Starting Thu09/17/18 at 0956, Until Thu09/20/18 at 1914, Pain, for severe pain (7-10), May give an additional 2 mg once if pain not relieved in 30-60 minutes., Routine 3 (Given - Provider: Stacey Duenas, JULI) ipratropium-albuterol (DUONEB) 0.5 mg-3 mg(2.5 mg base)/3 mL nebulizer solution 3 mL 3 mL, Nebulization, EVERY 4 HOURS PRN, S tarting Thu09/14/18 at 2257, Until Thu09/20/18 at 1914, Wheezing, shortness of breath, Routine Nicotine inhalation system (Nicotrol Inhaler) 1 cartri dge 1109 (Given - Provider: Mai Bose, JULI)1527 (Given - Provider: Mai Bose, JULI)2014 (Given - Provider: Fely Freeman, JULI) 0449 (Given - Provider: Fely Freeman, JULI)0926 [...] 30 MIN PRN, Start ing Thu09/14/18 at 2057, Until Thu09/20/18 at 1914, Low blood sugar
[...] EVERY 1 HOUR PRN, Starting Thu09/14/18 at 2057, Until Thu09/20/18 at 1914, Low blood sugar
[...] Intramuscular, EVERY 1 HOUR PRN, S tarting 09/14/18 at 2057, Until 09/20/18 at 191, Low blood sugar
For BG 50-70 mg/dL: [...] 09/20/18 at 1914, Pain, for mild pain (1-3)
May give an additional 2 mg once if pain not relieved in 30-60 minutes.
Routine Or HYDROmorphone (DILAUDID) tablet 4 mgJump to med 4 mg, Oral, EVERY 4 HOURS PRN, Starting Thu09/17/18 at 0956, Until 09/20/18 at 191, Pain, for moderate pain (4-6)
[...]
Routine documented in this encounter Care Teams Concaving Machine Operator Relationship Specialty Start Date End Date None PCP - General 09/14/18 09/30/18 None documented as of this encounter
--- OUTSIDE RECORDS SUMMARY | 2022-02-13 17:05 | XMS_ITS | Encounter Summary ---
:1965 Author Organization [facility] Address [address] [place] [address] Care Team Providers Name Role Phone Unavailable Primary Care Provider Unavailable Encounter Details Date Type Department Care Team Description 09/13/2018 Ancillary Procedure [place] [phone] Social History Tobacco Use Types Packs/Day Years Used Date Former Smoker Sex Assigned at Date Recorded Not on file documented as of this encounter Plan of Treatment Not on filedocumented as of this encounter Procedures Procedure Name Priority Date/Time Associated Diagnosis Comme nts FILM LIBRARY Routine 09/13/2018 12:10 AM Results for this STORAGE ONLY MR EDT procedure ar e in HEAD the results section. documented in this encounter Results Film Library- Storage Only MR Head (09/13/2018 12:10 AM EDT) Specimen (Source) Anatomical Location Collection Method / Collectio n Time Received Time / Laterality Volume Narrative [facility] - 09/15/2018 10:49 AM EDT This exam is auto-finalizing. It's purpo se is for storage only. Javad Urban MD IMG FILM LIBRARY ORDERABLES Performing Organization Address City/State/ZIP Code Phon e Number [place], [place] documented in this encounter Visit Diagnoses Not on filedocumented in this encounter
--- OUTSIDE RECORDS SUMMARY | 2022-02-13 17:05 | XMS_ITS | Encounter Summary ---
:1965 Author Organization [facility] Address [facility] [place] [address] Care Team Providers Name Role Phone Yamile De Leon APRN Primary Care Provider Reason for Visit Reason Onset Date Comments Medication Problem 10/12/2018 ? Lovenox discontinu ation date Encounter Details Date Type Department Care Team Description 10/12/2018 Telephone Orthopaedics at [facility] Daja Gregorio Medication Problem (? [facility] JULI Sky Lovenox d [address] [place]) [place] [phone] Social History Tobacco Use Types Packs/Day [...] this encounter Miscellaneous Notes Telephone Encounter - Daja Gregorio RN - 10/14/2018 4:33 PM EDT Response from LILLY Eden: She can discontinue the lovanox on the original 10/15/18 date. At that point she should return to whatever she was previously taking for cardiac health. TC to Jenae - advised of response from LILLY Eden. Jenae stated that she will finish the Lovenox tomorrow and then will resume taking Aspirin as she had been taking prior to her surgery. Telephone Encounter - Daja Gregorio RN - 10/12/2018 2:24 PM EDT TC from Jenae - question about which date the Lovenox should be discontinued. 09/16/18 - S/P ORIF bilateral foot fractures [facility] on 10/01/18 - RTC on 10/08/18 for cast change due to discomfort. Lovenox 40 mg/0.4ml sc nightly for 26 doses - ordered on 09/20/18 (due to finish on 10/15/18) Jenae is asking if th Lovenox needs to be extended because her follow up appointment has been changed from 10/15/18 to 10/25/18 because of cast change for discomfort. If more Lovenox is needed, a prescription will need to be sent to [facility] in [place], [place] Concerns communicated to LILLY Eden via In Basket. documented in this encounter Plan of Treatment Not on filedocumented as of this encounter Visit Diagnoses Not on filedocumented in this encounter Care Teams Acid Pump Operator Relationship Specialty Start Date End Date Yamile De Leon APRN PCP - General Family Medicine 10/01/18 [address] [place] [address] documented as of this encounter
--- OUTSIDE RECORDS SUMMARY | 2022-02-13 17:05 | XMS_ITS | Encounter Summary ---
:1965 Author Organization [facility] [place] [address] Care Team Providers Name Role Phone None Primary Care Provider Unavailable Encounter Details Date Type Department Care Team Description 09/14/2018 Telephone Orthopaedics at [facility] Josseline Macedo MD [facility] [place] [phone] ORTHOPAEDIC SURGERY [phone] [place], [place] [address] (Wo rk) Social History Tobacco Use Types Packs/Day Years Used Date Former Smoker Sex Assigned at Date Recorded Not on file documented as of this encounter Miscellaneous Notes Telephone Encounter - Josseline Macedo MD - 09/14/2018 12:58 PM EDT Received transfer center phone call from Dr. Florentino at [facility] regarding patient who is an inpatient there. Per report the patient states that she was holding a lot of firewood on 11 September when she droppedthe wood onto her feet. She noted immediate right greater than left foot pain. Per report the patient then decided to go to a recliner where she sat for a number of hours. Overnight she went to get up to the bathroom and per report fell. The patient denied any syncope but could not remember recall details. She did also report an episode of fecal incontinence as well as twitching. The provider at the outside hospital notes that she endorses a history of some twitching episodes. Patient then crawled to a chair and her then helped her as he had heard her fall. The patient was brought to the hospital on 09/12/18 where she is now admitted to the hospital medicine service. In discussion with the provider at the outside hospital the patient was found to have bilateral footfractures. These are reportedly closed fractures that she does have an abrasion on the medial aspectof her right foot. She is splinted bilaterally for these. Additionally the have neurology consulted for question of syncope versus seizure disorder given the patient's history. The provider reports that neurology has a low suspicion for seizure but she is empirically on Keppra. The plan is for an EEG that has not been completed yet. Additionally the patient is being treated for a question of pneumonia due to CT findings of groundglass opacities. I do not have the CT imaging to review. She is currently on azithromycin and Rocephin as well as a steroid taper. Additionally the patient was found to have a positive Hemoccult. Therefore they have held on DVT prophylaxis for the patient and her hemoglobin has remained stable. Finally the provider notes that upon presentation the patient was acting with some altered mental status and thought to be postconcussive. She did have a head CT again which we donot have in our system but per report was negative. She does have abrasions on her head. Dr. Peña and orthopedic provider at [facility] reports that he has taken care of the patient on an outpatient basis and that she is now back to her baseline. Patient's past medical history is notable for COPD, LORRI on CPAP, diabetes on insulin, chronic opioiduse currently on [place] per report, fibromyalgia Patient is not on any anticoagulation and as stated above they are holding DVT prophylaxis at the outside hospital due to a positive Hemoccult Orthopaedic injuries: Right foot: 1. Displaced intra-articular fracture of [...] fractures of the medial and intermediate cuneiforms Left foot: 1. Displaced fractures of the second and third metatarsal necks 2. Comminuted displaced fracture of the base of the fourth metatarsal 3. Fifth distal phalanx fracture 4. Lateral cuboid fracture 5. Lateral cuneiform fracture Other problems/workup: 1. Multiple reported falls - syncope vs seizure- on empiric keppra per [facility] neurology 2. PNA - per report CT chest w/ concern, currently on steroid taper and abx 3. + hemoccult Plan for admission to orthopedic surgery service with consult from internal medicine and possibly neurology. Will keep n.p.o. past midnight for operative fixation of bilateral feet. documented in this encounter Plan of Treatment Not on filedocumented as of this encounter Visit Diagnoses Not on filedocumented in this encounter Care Teams Surgical Territory Manager Relationship Specialty Start Date End Date None PCP - General 09/14/18 09/30/18 None documented as of this encounter
--- OUTSIDE RECORDS SUMMARY | 2022-02-13 17:05 | XMS_ITS | Encounter Summary ---
:1965 Author Organization [facility] [place] [address] Care Team Providers Name Role Phone Haley Yamile Lexi GONZALEZ Primary Care Provider Encounter Details Date Type Department Care Team Description 10/08/2018 Notes Only Orthopaedics at [facility] Mary Ellison PA [facility] [place] [address] ORTHOPAEDIC SURGERY [phone] [place], [place] [address] (Wo rk) Social History Tobacco [...] on file documented as of this encounter Progress Notes Mary Ellison PA - 10/08/2018 10:24 AM EDT Images from the original note were not included. PATIENT NAME: Jenae La AGE: 53 y.o. MR#: [id number] DATE OF VISIT: 10/08/2018 CHIEF COMPLAINT: Hospital check post ORIF of bilateral foot fractures: 09/16/18 RIGHT 1st TMT (lisfranc) fracture dislocation, plate and screw fixation 2nd TMT fracture dislocation, plate and screw fixation 3rd TMT fracture dislocation, k wire 4th TMT fracture dislocation, k wire 5th TMT fracture dislocation, k wire great toe phalanx fracture, plate and screw 2nd toe phalanx fracture, non op cuboid fracture, distal fibula fracture, LEFT 2nd metatarsal fracture, with perc pinning 3rd metatarsal fracture, 4th metatarsal fracture, cuboid fracture. Procedure(s) (LRB): ORIF METATARSAL FX, [...] treatment right fibula Closed treatment left cuboid HISTORY OF PRESENT ILLNESS: Ms. La is a 53 y.o. female who comes into clinic today for cast change. I was contacted by a Nurse Practitoner regarding Jenae La . Jenae was reporting increased pain and swelling of the right foot. She has been taking her antibiotics and will take the last dose today. She denies fever, chills, drenching night sweats. Past medical history: Patient Active Problem List Diagnosis Date Noted ??? Hypertension 09/15/2018 ??? Hyperlipidemia 09/15/2018 ??? Type 2 diabetes mellitus without complication, with long-term current use of insulin 09/15/2018 ??? Chronic pain 09/15/2018 ??? LORRI on CPAP 09/15/2018 ??? Gastroesophageal reflux 09/15/2018 ??? S/P ORIF bilateral foot fractures, 09/16/18 (Gitajn) 09/14/2018 ??? 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 HYDROcodone-acetaminophen (NORCO) 5-325 mg Tablet ??? ranitidine (ZANTAC) 150 mg Tablet ??? ibuprofen (ADVIL;MOTRIN) 600 mg Tablet ??? cephalexin (KEFLEX) 500 mg Tablet ??? acetaminophen (TYLENOL) 500 mg Tablet ??? enoxaparin (LOVENOX) 40 mg/0.4 mL Syringe ??? HYDROmorphone (DILAUDID) 2 mg Tablet ??? polyethylene glycol (MIRALAX) 17 gram Powder in Packet ??? senna-docusate (PERICOLACE) 8.6-50 mg Tablet ??? gabapentin (NEURONTIN) 300 mg Capsule ??? BASAGLAR KWIKPEN U-100 INSULIN 100 unit/mL (3 mL) pen ??? metFORMIN (GLUCOPHAGE) 500 mg Tablet ??? ondansetron (ZOFRAN) 4 mg Tablet ??? pantoprazole (PROTONIX) 40 mg Tablet, Delayed Release (E.C.) ??? simvastatin (ZOCOR) 20 mg Tablet ??? CIS Free Text Med - Albuterol ??? FLUTICASONE/SALMETEROL (ADVAIR DISKUS INHL) ??? MEPERIDINE HCL (DEMEROL ORAL) Allergies: Allergies Allergen Reactions ??? Sulfa (Sulfonamide Antibiotics) ??? Tape, Occlusive Adhesive Social history: Social History Tobacco Use ??? Smoking status: Former Smoker Substance Use Topics ??? Alcohol use: Not Currently Comment: a sip once a year Review of systems: No chest pain or shortness of breath No fevers, night sweats or chills Vital signs: 131/74 85 HR 97.6 Temp Physical exam: Ms. La is a 53 y.o. female who is alert and oriented. She is in no acute discomfort and is resting comfortably in the exam room. Right foot: Mild edema Pins protruding dorsally. Mild josiane-incisional erythema noted. No bogginess to palpation Skin feels no warmer than surrounding tissue Steri strips were removed today in clinic Assessment and plan:: 53 y.o. year-old female 3 weeks out post bilateral foot fracture dislocations post ORIF with some erythema about the dorsal pins. We had a long discussion regarding the nature of Jenae La's chief complaint. Photographs wereremoved with Dr. Reed. These are looking good. It is not uncommon for a pt to have some discomfortabout the pins from irritation. Steri strips were removed from the right foot today in clinic. She has very mild josiane incisional erythema about the dorsal pins. We discussed that she will need to remain nonweightbearing. We will place her in a short leg nonweightbearing fiberglass cast today. This plan was discussed with the patient and they are in agreement. All of the patient's questions were answered. The patient understand to contact us if they have any other questions or concerns. FU: October 25 [facility], repeat XR of bilateral feet Mary Ellison PA-C The above dictation was made with voice recogonition software documented in this encounter Plan of Treatment Not on filedocumented as of this encounter Visit Diagnoses Not on filedocumented in this encounter Care Teams Nursing Clinical Director Relationship Specialty Start Date End Date Yamile De Leon APRN PCP - General Family Medicine 10/01/18 [address] [place] [address] documented as of this encounter
--- OUTSIDE RECORDS SUMMARY | 2022-02-13 17:05 | XMS_ITS | Encounter Summary ---
:1965 Author Organization [facility] [place] [address] Care Team Providers Name Role Phone None Primary Care Provider Unavailable Encounter Details Date Type Department Care Team Description 09/14/2018 Orders Only Orthopaedics at [facility] HellenJosseline Multiple closed fractures of left foot, initial encounter; [facility] MD Catalino Multiple closed fractures of foot, [place] [phone] ORTHOPAEDIC SURGERY [place], [place] [address] Social History Tobacco Use Types Packs/Day Years Used Date Former Smoker Sex Assigned at Date Recorded Not on file documented as of this encounter Plan of Treatment Not on filedocumented as of this encounter Results Request For 2nd Read CT Lower Extremity (09/14/2018 2:31 PM EDT) Anatomical Region Laterality Modality Hip, Leg, Knee, Thigh, Ankle, Foot SO Specimen (Source) Anatomical Location Collection Method / Collectio n Time Received Time / Laterality Volume Addenda Addendum by Sheila Joaquin MD on 11/2018 4:36 PM EDT --------ADDENDUM #1-------- TECHNIQUE: 1 mm non-contrast axial CT im ages of the right foot were acquired. Sagittal and coronal reformats [and 3D m odels] were created. Thank you for letting us participate in the care of this patient. For questions regarding this report, please contact e number below. ? --------ORIGINAL REPORT -------- EXAMINATION: REQUEST FOR 2ND READ CT LOW ER EXTREMITY CLINICAL HISTORY: assess multiple fractu res; location of fractures/dislocations; What Modality is the exam? CT Scan; Body Part (please add comments as necessary): bilateral feet; I believe a reinterpretation of this exam may alter care of Patient. Yes, entered by [employer] service TECHNIQUE: 1 mm non-contrast axial CT im ages of the [ ] were acquired. Sagittal and coronal reformats [and 3D models] we re created. COMPARISON: None FINDINGS: OSSEOUS STRUCTURES: 1. ??Lateral malleolus-distal fibular fr acture Motley A 2. ??Anterior malleolus-nondisplaced sma ll comminuted intra-articular fracture resembles a chaput fragment. 3. ??Cuboid-comminuted displaced fractur e of the lateral cortex. 4. ??Lisfranc injury-fracture subluxatio n of 1-4 TMT joints. There are multiple displaced fracture fragments and malalig nment. 5. ??Naviculocuneiform joints-normal. 6. ??1 and 2 proximal phalanges [PP]-com minuted intra-articular fracture with a large bone defect at phalangeal articula r surface. 7. ??1 metatarsal-comminuted impaction o f medial first metatarsal head. 8. ??2-4 metatarsal bases-multiple tiny comminuted fracture fragments at base with malalignment of tarsometatarsal holly nts 9. ??3 cuneiforms-multiple intra-articul ar displaced fractures with malalignment. JOINTS: Lisfranc joint-dorsal and lateral sublux ation of 2-4 TMT joints. TENDONS: No displaced tendons. MUSCLES: No fatty atrophy. SOFT TISSUES: Diffuse subcutaneous edema most pronounc ed at the dorsum IMPRESSION: 1. ??Lisfranc fracture dislocation at mu ltiple locations. 2. ??Additional fractures of the 1 and 2 PP and 1 metatarsal heads. 3. ??Motley A fracture of the lateral mal leolus 4. ??Nondisplaced intra-articular fractu re of the anterior tibia/malleolus. Thank you for letting us participate in the care of this patient. For questions regarding this report, please contact e number below. ? Impressions 09/14/2018 4:41 PM EDT 1. ??Lisfranc fracture dislocation at multiple locations. 2. ??Additional fractures of the 1 and 2 PP and 1 metatarsal heads. 3. ??Motley A fracture of the lateral mal leolus 4. ??Nondisplaced intra-articular fractu re of the anterior tibia/malleolus. Thank you for letting us participate in the care of this patient. For questions regarding this report, please contact e number below. ? Narrative 09/14/2018 4:41 PM EDT EXAMINATION: REQUEST FOR 2ND READ CT LOWER EXTREMITY CLINICAL HISTORY: assess multiple fractu res; location of fractures/dislocations; What Modality is the exam? CT Scan; Body Part (please add comments as necessary): bilateral feet; I believe a reinterpretation of this exam may alter care of Patient. Yes, entered by [employer] service TECHNIQUE: 1 mm non-contrast axial CT im ages of the [ ] were acquired. Sagittal and coronal reformats [and 3D models] we re created. COMPARISON: None FINDINGS: OSSEOUS STRUCTURES: 1. ??Lateral malleolus-distal fibular fr acture Motley A 2. ??Anterior malleolus-nondisplaced sma ll comminuted intra-articular fracture resembles a chaput fragment. 3. ??Cuboid-comminuted displaced fractur e of the lateral cortex. 4. ??Lisfranc injury-fracture subluxatio n of 1-4 TMT joints. There are multiple displaced fracture fragments and malalig nment. 5. ??Naviculocuneiform joints-normal. 6. ??1 and 2 proximal phalanges [PP]-com minuted intra-articular fracture with a large bone defect at phalangeal articula r surface. 7. ??1 metatarsal-comminuted impaction o f medial first metatarsal head. 8. ??2-4 metatarsal bases-multiple tiny comminuted fracture fragments at base with malalignment of tarsometatarsal holly nts 9. ??3 cuneiforms-multiple intra-articul ar displaced fractures with malalignment. JOINTS: Lisfranc joint-dorsal and lateral sublux ation of 2-4 TMT joints. TENDONS: No displaced tendons. MUSCLES: No fatty atrophy. SOFT TISSUES: Diffuse subcutaneous edema most pronounc ed at the dorsum Procedure Note Sheila Joaquin MD - 09/14/2018Formatt ing of this note might be different from the original. EXAMINATION: REQUEST FOR 2ND READ CT LOW ER EXTREMITY CLINICAL HISTORY: assess multiple fractu res; location of fractures/dislocations; What Modality is the exam? CT Scan; Body Part (please add comments as necessary): bilateral feet; I believe a reinterpretation of this exam may alter care of Patient. Yes, entered by [employer] service TECHNIQUE: 1 mm non-contrast axial CT im ages of the [ ] were acquired. Sagittal and coronal reformats [and 3D models] we re created. COMPARISON: None FINDINGS: OSSEOUS STRUCTURES: 1. Lateral malleolus-distal fibular frac ture Motley A 2. Anterior malleolus-nondisplaced small comminuted intra-articular fracture resembles a chaput fragment. 3. Cuboid-comminuted displaced fracture of the lateral cortex. 4. Lisfranc injury-fracture subluxation of 1-4 TMT joints. There are multiple displaced fracture fragments and malalig nment. 5. Naviculocuneiform joints-normal. 6. 1 and 2 proximal phalanges [PP]-commi nuted intra-articular fracture with a large bone defect at phalangeal articula r surface. 7. 1 metatarsal-comminuted impaction of medial first metatarsal head. 8. 2-4 metatarsal bases-multiple tiny co mminuted fracture fragments at base with malalignment of tarsometatarsal holly nts 9. 3 cuneiforms-multiple intra-articular displaced fractures with malalignment. JOINTS: Lisfranc joint-dorsal and lateral sublux ation of 2-4 TMT joints. TENDONS: No displaced tendons. MUSCLES: No fatty atrophy. SOFT TISSUES: Diffuse subcutaneous edema most pronounc ed at the dorsum IMPRESSION 1. Lisfranc fracture dislocation at mult iple locations. 2. Additional fractures of the 1 and 2 P P and 1 metatarsal heads. 3. Motley A fracture of the lateral malle olus 4. Nondisplaced intra-articular fracture of the anterior tibia/malleolus. Thank you for letting us participate in the care of this patient. For questions regarding this report, please contact th e number below. Javad Urban MD IMG OUTSIDE INTERPRETATION O RDERABLES documented in this encounter Visit Diagnoses Diagnosis Multiple closed fractures of left foot, initial encounter Multiple closed fractures of foot, initi al encounter documented in this encounter Care Teams Skidder Runner Relationship Specialty Start Date End Date None PCP - General 09/14/18 09/30/18 None documented as of this encounter
--- OUTSIDE RECORDS SUMMARY | 2022-02-13 17:05 | XMS_ITS | Encounter Summary ---
:1965 Author Organization [facility] [place] [address] Care Team Providers Name Role Phone None Primary Care Provider Unavailable Reason for Visit Auth/Cert Specialty Diagnoses / Procedures Referred By Contact Refer red To Contact Diagnoses Fracture of unspecified tarsal bone(s) of unspecified foot, initial encounter for closed fracture CLOSED HEAD INJURY, FOOT BONE FX'S -CONFUSED Procedures EMERGENCY IPI Referral ID Status Reason Start Date Expiration Date Visits Requ ested Visits Authorized [id number] 1 1 Encounter Details Date Type Department Care Team Description 09/16/2018 Anesthesia Event Main Operating Room Ron Muñiz MD [facility] [place] [address] [facility] Chauncey Castro MD [facility] [place] [address] [place] [address] Anesthesia Record Procedure Summary Procedure Name Responsible Anesthesia Start Anesthesia Stop Anesthesiologist Time Time ORIF METATARSAL MICHELLE, Ron Duong MD 09/16/18 1016 08/24 10/10 1347 EACH (WRVU 7.44) (Bilateral Foot) Events Date Time Event Comment 09/16/2018 0852 1016 AN Verify 1016 Start 1018 An Start Data 1023 An Induction 1025 An Intubation 1026 Anesthesia Ready 1048 An Tourn Inflated Right thigh 25 0 mmHg 1051 Procedure Start 1154 An Tourn Inflated Left thigh 250 mmHg 1205 An Tourn Deflated Right side def lated 1320 An Tourn Deflated Left side 1336 Extubation/LMA Out 1339 an stop data 1343 Recovery or ICU Handoff Patient care was transferred to the destination unit staff after review of the patient's medica l history, current anesthetic/surgi toy status and plan, according to the Provider Handoff Checklist. 1347 Stop Name Total BUpivacaine 0.25% 40 mL fentaNYL 200 mcg IV Lidocaine 30 mg Propofol 200 mg Rocuronium 50 mg ePHEDrine 5 mg Ondansetron 4 mg Neostigmine 4 mg Glycopyrrolate 0.6 mg Propofol INF 680.6 mg Dexmedetomidine 20 mcg ceFAZolin 2 g Lactated Ringers 600 mL Lactated Ringers 1,000 mL Agents Name O2 Air N2O Sevoflurane (et) Blood No blood administrations on file. Lines, Drains, and Airways Type Details Placement Removal PIV 09/15/18; 2255; basilic 09/15/182255 by 1949 by vein (medial side of Mar Montano I, Mar Guthrie I, arm), left; 1 in length, RN 22 gauge; Yobani montano RN, VAS; tolerated well, distraction; 0; leaking; site symptomatic, catheter/device intact; 09/18/18; 1950 ETT Mask Ventilation: Easy 09/16/18 1025 by Vinnie, 1336 by (1); ETT Type: Cuffed, Lisa E, SANJEEV Birmingham, Claudia leah E, HEAVY EQUIPMENT PLUMBING SUPERVISOR Oral; ETT Size: 7 mm; Mac Blade: 3; Notes: Asleep, Pre-O2, Stylette; Attempts: 1; Laryngoscopy Grade: 1; ETT Placement Verified By: Auscultation, Capnometry, Visual; Secured at Teeth: 21 cm; Inserted by: Lisa Birmingham HEAVY EQUIPMENT PLUMBING SUPERVISOR Urethral Catheter 09/16/18; 1030; Surgery 09/16/18 1030 by 09/17 0859 by longer than 2 hours; Lucina Escalante, Rhona Monreal, Physician order; RN indwelling double lumen catheter; latex; 14; inserted at this facility (by Lucina Escalante per protocol, clear yellow urine seen); 1; 5; 10; none; drainage bag to dependent drainage; 09/17/18; 0859 PIV 09/16/18; 1032; 09/16/18 1032 by Vinnie, 09/18/18 1120 by metacarpal vein (top of SANJEEV Garcia, Emma De Los Santos RN hand), left; bqio-fjo-vymteu catheter system; 20 gauge; Ron Duong; removed per policy/procedure, site symptomatic, catheter/device intact; 09/18/18; 1120 Incision 09/16/18; 1049; foot; 09/16/18 1049 by 01/20/22 1715 by 01/20/22 (LDA cleanup Lucina Escalante, JULI Hylton, Dierdre L utility RA#[id number]); 1715 (LDA cleanup utility RA#[id number]) Incision 09/16/18; 1049; foot; 09/16/18 1049 by 01/20/22 1715 by 01/20/22 (LDA cleanup Lucina Escalante, JULI Hylton, Dierdre L utility RA#[id number]); 1715 (LDA cleanup utility RA#[id number]) Incision 09/16/18; 1210; first 09/16/18 1210 by 01/20/22 1715 by toe; 3 kwires implanted Lucina Escalante RN Mulle r, Dierdre L into tops of toes; 01/20/22 (LDA cleanup utility RA#[id number]); 1715 (LDA cleanup utility RA#[id number]) Incision 09/16/18; 1210; first 09/16/18 1210 by 01/20/22 1715 by toe; 3 kwires inserted Lucina Escalante RN Muller , Dierdre L into tops of toes ; 01/20/22 (LDA cleanup utility RA#[id number]); 1715 (LDA cleanup utility RA#[id number]) documented in this encounter Social History Tobacco Use Types Packs/Day Years Used Date Former Smoker Sex Assigned at Date Recorded Not on file documented as of this encounter OR Notes Anesthesia Postprocedure Evaluation - Ron Duong MD - 09/16/2018 4:11 PM EDT [facility] Department of Anesthesiology Post-procedure Note Patient: Jenae La Procedure Summary Date: 09/16/18 Room / Location: [facility] Anesthesia Start: 1016 Anesthesia Stop: 1347 Procedures: ORIF METATARSAL FX, EACH (WRVU 7.44) (Bilateral Foot) MODIFIER LOCKING SMALL FRAGMENT SYNTHES (N/A ) MODIFIER 4.0 CANNULATED SCREW SYNTHES (N/A ) MODIFIER LOCKING MINI FRAGMENT SYNTHES (N/A ) OPEN TREAMENT TARSOMETATARSAL JOINT DISLOCATION (WRVU 10.7) (Right Ankle) PERCUTANEOUS PINNING, TARSOMETATARSAL JOINT DISLOCATION (WRVU 5.09) (Right Foot) PERCUTANEOUS PINNING, METATARSAL FX, EA. (WRVU 3.6) (Left Ankle) ORIF GREAT TOE (WRVU 7.44) (Right ) CLOSED REDUCTION TARSAL BONE FX (WRVU 3.24) (Left Foot) Diagnosis: (Bilateral complex foot fractures and dislocations) Surgeon: Aparna Reed MD Responsible Provider: Ron Duong MD Anesthesia Type: general ASA Status: 2 All Anesthesia Providers: Anesthesiologist: Ron Duong MD [employer] PLUMBING SUPERVISOR: Lisa Birmingham CRNA Vitals Value Taken Time BP 135/75 09/16/2018 2:39 PM Temp 36.2 ??C (97.2 ??F) 09/16/2018 2:39 PM Pulse 61 09/16/2018 2:41 PM Resp 15 09/16/2018 2:41 PM SpO2 97 % 09/16/2018 2:56 PM Pain Level 9 09/16/2018 2:39 PM Vitals shown include unvalidated device data. Patient Location: PACU/[facility] Level of Consciousness: Awake and Alert Pain Management: Satisfactory Analgesia PONV: None Cardiovascular Status: At Baseline and Hemodynamically Stable Respiratory Status: At Baseline and Room Air Postoperative Fluid Status: Intravascular EUvolemia Possible Anesthetic Complications: NONE apparent at time of evaluation Final Primary Anesthesia Type: General (The anesthetic type performed was the same as planned.) Comments: Ron Duong MD Anesthesia Procedure Notes - Delvin Byrd MD - 09/16/2018 9:50 AM EDT Associated Order(s): Anesthesia Block Anesthesia Block Date/Time: 09/16/2018 9:15 AM Performed by: Delvin Byrd MD Authorized by: Ron Duong MD Start Time: 09/16/2018 9:00 AM End Time: 09/16/2018 9:10 AM Patient Location: Block Room The patient was greeted; the risks and benefits of the procedure were reviewed. Indication: Post-op Pain Control Post-op pain management at the request of surgeon. Block Type: Adductor canal block and sciatic sciatic/ popliteal nerve block Laterality: Bilateral Position: Supine Prep: Chlorhexidine Skin Anesthetic: Lidocaine 1% dose: 6 [id number]-[id number] 21 10 cm Ultrasound Guided: Live and in-plane Ultrasound guidance was used to identify the targeted neuronal structure. Ultrasound was also used to identify needle position and to identify tissue (bone, muscle, and blood vessels) to prevent inadvertent intraneural or intravascular needle placement and injection. The spread of local anesthetic was confirmed with live ultrasound imaging. Single-Shot: Single-shot BUpivacaine 0.25%, 40 mL no complications Resident/HEAVY EQUIPMENT PLUMBING SUPERVISOR:: Delvin Byrd MD Fellow:: Chauncey Castro MD Attending Physician:: Ron Duong MD 20mL's each side Anesthesia Preprocedure Evaluation - Ron Duong MD - 09/16/2018 7:51 AM EDT Pre-Anesthesia Evaluation for: Jenae La a 53 y.o. female. Procedure(s): ORIF METATARSAL FX, EACH (WRVU 7.44) MODIFIER LOCKING SMALL FRAGMENT SYNTHES MODIFIER 4.0 CANNULATED SCREW SYNTHES MODIFIER LOCKING MINI FRAGMENT SYNTHES Patient Active Problem List Diagnosis ??? Hypertension ??? Hyperlipidemia ??? Type 2 diabetes mellitus without complication, with long-term current use of insulin ??? Chronic pain ??? LORRI on CPAP ??? Gastroesophageal reflux ??? Fracture of unspecified tarsal bone(s) of unspecified foot, initial encounter for closed fracture ??? Psoriasiform dermatitis Past Medical History: Diagnosis Date ??? Arthritis ??? Chronic pain 09/15/2018 ??? Gastroesophageal reflux 09/15/2018 ??? Hyperlipidemia 09/15/2018 ??? Hypertension 09/15/2018 ??? LORRI on CPAP 09/15/2018 ??? Type 2 diabetes mellitus without complication, with long-term current use of insulin 09/15/2018 Past Surgical History: Procedure Laterality Date ??? KNEE ARTHROSCOPY Bilateral ??? SHOULDER ARTHROSCOPY Bilateral Social History Tobacco Use ??? Smoking status: Former Smoker Substance Use Topics ??? Alcohol use: Not on file Social History Substance and Sexual Activity Drug Use Not on file Allergies Allergen Reactions ??? Sulfa (Sulfonamide Antibiotics) ??? Tape, Occlusive Adhesive Medications: MAR and/or home medications have been reviewed. Physical Exam: Most Recent Vitals: 09/16/18 0728 BP: 148/82 Pulse: Resp: 18 Temp: 37.2 ??C (99 ??F) SpO2: 94% Body mass index is 34.58 kg/m??. Height: 154.9 cm (5' 1) Weight: 83 kg (183 lb) Airway Assessment: Mallampati: II TM distance: >3 FB Neck ROM: full Cardiovascular Assessment: Pulmonary Assessment: Dental Assessment: (+) upper dentures Misc Assessment: Anesthesia Plan: ASA 2 general, with a(n) intravenous induction Jenae La is a 53 y.o. female (BMI 34) with a hx significant for bilateral foot fractures presenting for ORIF with Dr. Reed. Transferred from OSH for operative management. Her PMHx: IDDM2, HTN, HLD, LORRI on CPAP, GERD NPO adequate. Meds: ASA, levetiracetam, ceftriaxone, azithromycin, ISS, simvastatin, oxycodone prn, duoneb Allergies: Sulfa, tape occlusive/adhesive Anesthesia Hx: none on record *Pt denies any complications from anesthesia and any Fhx of complications with anesthesia. Lab Results Component Value Date WBC 11.2 (H) 09/15/2018 HGB 9.6 (L) 09/15/2018 HCT 29.5 (L) 09/15/2018 MCV 96.7 (H) 09/15/2018 PLATELET 244 09/15/2018 Lab Results Component Value Date NA 142 09/15/2018 K 3.6 09/15/2018 CL 113 (H) 09/15/2018 CO2 20 (L) 09/15/2018 BUN 18 09/15/2018 CREATININE 0.74 09/15/2018 GLUCOSE 135 09/15/2018 CALCIUM 7.9 (L) 09/15/2018 ESTGFR 94 09/15/2018 No results found for: ALT, AST, GGT, ALKPHOS, BILITOT, BILIDIR, ALBUMIN, PROT Lab Results Component Value Date PT 12.0 09/15/2018 No results found for: TSH, [id number], TT4, THYROIDAB No results found for: HA1C Plan is for GA with ETT, standard ASA monitors, and adequate IV access. Bilateral pop-sciatic, saphenous nerve blocks for post op pain control Region - Other Informed Consent: Anesthetic plan and risks discussed with patient. Use of blood products discussed with patient who consented to blood products. Plan discussed with HEAVY EQUIPMENT PLUMBING SUPERVISOR and attending. PAT Clinic Note documented in this encounter Plan of Treatment Not on filedocumented as of this encounter Procedures Procedure Name Priority Date/Time Associated Diagnosis Comme nts ANESTHESIA BLOCK Routine 09/16/2018 9:50 AM Resul ts for this EDT procedure are i n the results section. documented in this encounter Results Anesthesia Block (09/16/2018 9:50 AM EDT) Narrative Ron Duong MD - 09/16/2018 9:5 0 AM EDT Delvin Byrd MD ? 09/16/2018 ??9:52 AM Anesthesia Block Date/Time: 09/16/2018 9:15 AM Performed by: Delvin Byrd MD Authorized by: Ron Duong MD Start Time: ??09/16/2018 9:00 AM End Time: ??09/16/2018 9:10 AM Patient Location: ??Block Room The patient was greeted; the risks and b enefits of the procedure were reviewed. ?? Indication: ??Post-op Pain Control Post-op pain management at the request o f surgeon. ?? Block Type: ??Adductor canal block and s ciatic sciatic/ popliteal nerve block Laterality: ??Bilateral Position: ??Supine Prep: ??Chlorhexidine Skin Anesthetic: ??Lidocaine 1% dose: ??6 [id number]-kkyvr-zmqrx 21 10 cm Ultrasound Guided: ??Live and in-plane Ultrasound guidance was used to identify the targeted neuronal structure. Ultrasound was also used to identify nee dle position and to identify tissue (bone, muscle, and blood vessels) to prevent inadvertent intraneural or intravascular needle plac ement and injection. The spread of local anesthetic was confirmed with live ultrasound imaging. ?? Single-Shot: ??Single-shot BUpivacaine 0.25%, 40 mL no complications ?? Resident/HEAVY EQUIPMENT PLUMBING SUPERVISOR:: ??Delvin Byrd MD Fellow:: ??Chauncey Castro MD Attending Physician:: ??Dae Duong MD 20mL's each side Ron Duong MD FEATURE WRITER CHGS documented in this encounter Visit Diagnoses Not on filedocumented in this encounter Administered Medications Inactive Administered Medications - up to 3 most recent administrations Medication Order MAR Action Action Date Dose Rate Site BUpivacaine (MARACAINE) 0.25% Given 09/16/2018 9:15 AM EDT 40 mL s bolus injection (Anesthesia) Epidural, Starting on Gloria 09/16/18 at 0915, Until Gloria 09/16/18 at 0915, Anesthesia Intra-op, Routine ceFAZolin (ANCEF) 1g in dextrose 5% 50mL Given 09/16/2018 10:49 AM EDT 2 g PRN, Starting on Gloria 09/16/18 at 1049, Until Gloria 09/16/18 at 1351, Administer over 30 Minutes, Anesthesia Intra-op dexmedetomidine (PRECEDEX) injection Given 09/16/2018 11:59 AM EDT 12 mcg PRN, Starting on Gloria 09/16/18 at 1046, Until Gloria 09/16/18 at 1351, Anesthesia Intra-op, Routine Given 09/16/2018 10:46 AM EDT 8 mcg ePHEDrine 5 mg/mL multi-dose injection Given 09/16/2018 11:16 AM EDT 5 mg PRN, Starting on Gloria 09/16/18 at 1116, Until Gloria 09/16/18 at 1351, Anesthesia Intra-op, Routine fentaNYL 50 mcg/mL multi-dose injection Given 09/16/2018 1:06 PM EDT 50 mcg PRN, Starting on Gloria 09/16/18 at 1027, Until Gloria 09/16/18 at 1351, Anesthesia Intra-op, Routine Given 09/16/2018 12:02 PM EDT 50 mcg Given 09/16/2018 10:31 AM EDT 50 mcg glycopyrrolate (ROBINUL) multi-dose Given 09/16/2018 11:55 AM ED T 0.6 mg injection PRN, Starting on Gloria 09/16/18 at 1155, Until Gloria 09/16/18 at 1351, Anesthesia Intra-op, Routine lactated ringers infusion New Bag 09/16/2018 10:16 AM EDT CONTINUOUS PRN, Starting on Gloria 09/16/18 at 1016, Until Gloria 09/16/18 at 1351, Anesthesia Intra-op lactated ringers infusion New Bag 09/16/2018 10:36 AM EDT CONTINUOUS PRN, Starting on Gloria 09/16/18 at 1036, Until Gloria 09/16/18 at 1351, Anesthesia Intra-op lidocaine (PF) (XYLOCAINE) 100 mg/5 mL (2 %) Given 10:23 AM EDT 30 mg injection PRN, Starting on Gloria 09/16/18 at 1023, Until Gloria 09/16/18 at 1351, Anesthesia Intra-op, Routine neostigmine (BLOXIVERZ) injection Given 09/16/2018 11:55 AM EDT 4 mg PRN, Starting on Gloria 09/16/18 at 1155, Until Gloria 09/16/18 at 1351, Anesthesia Intra-op, Routine ondansetron (ZOFRAN) injection Given 09/16/2018 1:01 PM EDT 4 mg PRN, Starting on Gloria 09/16/18 at 1301, Until Gloria 09/16/18 at 1351, Anesthesia Intra-op, Routine propofol (DIPRIVAN) 10 mg/mL bolus injection Given 10:31 AM EDT 50 mg (Anesthesia) PRN, Starting on Gloria 09/16/18 at 1023, Until Gloria 09/16/18 at 1351, Anesthesia Intra-op Given 09/16/2018 10:23 AM EDT 150 mg propofol (DIPRIVAN) Rate/Dose 09/16/2018 1:01 30 mcg/kg/min 14.9 mL/ hr infusion Change PM EDT CONTINUOUS PRN, Starting on Gloria 09/16/18 at 1032, Until Gloria 09/16/18 at 1351, Anesthesia Intra-op, Routine New Bag 09/16/2018 10:32 AM EDT 50 mcg/kg/min 24.9 mL/hr rocuronium (ZEMURON) multi-dose injectio n Given 09/16/2018 10:23 AM EDT 50 mg PRN, Starting on Gloria 09/16/18 at 1023, Until Gloria 09/16/18 at 1351, Anesthesia Intra-op, Routine documented in this encounter Care Teams Road Service Locksmith Relationship Specialty Start Date End Date None PCP - General 09/14/18 09/30/18 None documented as of this encounter
--- OUTSIDE RECORDS SUMMARY | 2022-02-13 17:05 | XMS_ITS | Encounter Summary ---
:1965 [place] [address] Care Team Providers Name Role Phone None Primary Care Provider Unavailable Encounter Details Date Type Department Care Team Description 09/14/2018 Ancillary Procedure Radiology Library Javad Urban M ultipalec closed at [facility] fractures of foot, [facility] initial encounter [facility] [address] [place] [id number] SURGERY [phone] [place] [address] Social History Tobacco Use Types Packs/Day Years Used Date Former Smoker Sex Assigned at Date Recorded Not on file documented as of this encounter Plan of Treatment Not on filedocumented as of this encounter Procedures Procedure Name Priority Date/Time Associated Diagnosis Comme nts REQUEST FOR 2ND Routine 09/14/2018 2:31 PM Multiple closed Res ults for this READ CT LOWER EDT fractures of foot, procedur e are in EXTREMITY initial encounter the result s section. documented in this encounter Results Request For 2nd Read [...] e number below. ? Electronically signed by: Sheila Joaquin [facility] ([phone]), at 09/14/2018 4:41 PM Impressions 09/14/2018 4:41 PM EDT 1. ??Lisfranc [...] number below. ? Electronically signed by: TAMMIE Mackay [facility] ([phone]), at 09/14/2018 4:41 PM Narrative 09/14/2018 4:41 PM EDT EXAMINATION: REQUEST FOR 2ND READ CT LOWER EXTREMITY CLINICAL HISTORY: assess multiple fractu res; location of fractures/dislocations; What Modality is the exam? CT Scan; Body Part (please add comments as necessary): bilateral feet; I believe a reinterpretation of this exam may alter care of Patient. Yes, entered by gerry g service TECHNIQUE: 1 mm non-contrast axial CT [...] contact e number below. Electronically signed by: Sheila Joaquin [facility] ([phone]), at 09/14/2018 4:41 PM Javad Urban MD IMG OUTSIDE INTERPRETATION O RDERABLES documented in this encounter Visit Diagnoses Diagnosis Multiple closed fractures of foot, initi al encounter documented in this encounter Care Teams Oil Burner Relationship Specialty Start Date End Date None PCP - General 09/14/18 09/30/18 None documented as of this encounter
--- OUTSIDE RECORDS SUMMARY | 2022-02-13 17:05 | XMS_ITS | Encounter Summary ---
:1965 Author Organization [facility] [address] Care Team Providers Name Role Phone Yamile De Leon APRN Primary Care Provider Reason for Visit Reason Comments Follow Up Surgery ORIF bilat foot fx, DOS 09.16 Encounter Details Date Type Department Care Team Description 10/01/2018 Office Visit Orthopaedics at [facility] [place] Mary Ellison S/P ORIF bilateral [facility] LILLY Bae foot fractures, Drive [facility] 09/16/18 ([place]) [place] [address] CENTER [phone] ORTHOPAEDIC SURGERY [place] [id number] Social History Tobacco Use Types Packs/Day Years [...] Sign Reading Time Taken Comments Blood Pressure 110/70 10/01/2018 10:59 AM EDT Pulse 91 10/01/2018 10:59 AM EDT Temperature 36.6 ??C (97.8 ??F) 10/01/2018 10:59 AM EDT Respiratory Rate - - Oxygen Saturation - - Inhaled Oxygen Concentration - - Weight - - Height - - Body Mass Index - - documented in this encounter Progress Notes Mary Ellison PA - 10/01/2018 11:00 AM EDT PATIENT NAME: Jenae La AGE: 53 y.o. MR#: [id number] DATE OF VISIT: 10/01/2018 CHIEF COMPLAINT: Hospital check post ORIF of bilateral foot fractures: RIGHT 1st TMT (lisfranc) fracture dislocation, plate [...] female who comes into clinic today for evaluation of the bilateral feet. She reports feeling well. She denies fever, chills, drenching night sweats.She has been using Newton for pain relief and using Lovenox for DVT prophylaxis. She does complain oflow level nausea since the surgery. She has been able to eat and drink. She has been compliant with her NWB status. Past medical history: Patient Active Problem List [...] ??? ibuprofen (ADVIL;MOTRIN) 600 mg Tablet ??? enoxaparin (LOVENOX) 40 mg/0.4 mL Syringe ??? BASAGLAR KWIKPEN U-100 INSULIN 100 unit/mL (3 mL) pen ??? metFORMIN (GLUCOPHAGE) 500 mg Tablet ??? ondansetron (ZOFRAN) 4 mg Tablet ??? pantoprazole (PROTONIX) 40 mg Tablet, Delayed Release (E.C.) ??? simvastatin (ZOCOR) 20 mg Tablet ??? CIS Free Text Med - Albuterol ??? FLUTICASONE/SALMETEROL (ADVAIR DISKUS INHL) ??? acetaminophen (TYLENOL) 500 mg Tablet ??? HYDROmorphone (DILAUDID) 2 mg Tablet ??? polyethylene glycol (MIRALAX) 17 gram Powder in Packet ??? senna-docusate (PERICOLACE) 8.6-50 mg Tablet ??? gabapentin (NEURONTIN) 300 mg Capsule ??? MEPERIDINE HCL (DEMEROL ORAL) Allergies: Allergies Allergen Reactions ??? Sulfa (Sulfonamide Antibiotics) ??? Tape, Occlusive Adhesive Social history: Social History Tobacco Use ??? Smoking status: Former Smoker Substance Use Topics ??? Alcohol use: Not Currently Comment: a sip once a year Review of systems: No chest pain or shortness of breath No fevers, night sweats or chills Vital signs: Most Recent Vitals: 10/01/18 1059 BP: 110/70 Pulse: 91 Temp: 36.6 ??C (97.8 ??F) Physical exam: Ms. La is a 53 y.o. female who is alert and oriented. She is in no acute discomfort and is resting comfortably in the exam room. Right foot: Global 1+ edema about the foot Pins protruding dorsally. Mild josiane-incisional erythema noted. No bogginess to palpation Skin feels somewhat warmer than surrounding tissue I am not able to part the skin with gentle palpation Left foot: Global 1+ edema about the foot Pins protruding plantarly Mild josiane-incisional erythema noted. No bogginess to palpation No bogginess or drainage to palpation about the incision Skin feels no warmer than surrounding tissue I am not able to part the skin with gentle palpation Imaging studies: Right foot: Lisfranc fracture dislocation. Wires across third fourth and fifth metatarsal phalangeal joint whichprotrude dorsally. Plate and screw fixation of the second tarsometatarsal joint. Plate and screw fixation of the first tarsometatarsal joint. Screws in the cuneiforms. Plate and screw fixation of the proximal phalanx of the great toe. Left foot: Fracture in the next of the second and third metatarsals and in the proximal phalanx of the fifth toe. Pins have been placed across the second, third, fourth metatarsal phalangeal joints protruding plantarly Assessment and plan:: 53 y.o. year-old female 2 weeks out post bilateral foot fracture dislocations post ORIF doing well. We had a long discussion regarding the nature of Jenae La's chief complaint. We reviewed the imaging together which is described above Sutures were removed today in clinic. Steri strips need to remain in place for at least one week. Showers are ok, however please do not submerge the incision until the scabs have been replaced by scars. The dorsal incision is somewhat erythematous and painful to touch. We will wait to remove the sutures for another 2 weeks. I have also called in a prescriptionfor Keflex. We discussed that she will need to take this and completion. During suture removal the pt became diaphoretic and felt unwell. Her glucose was checked and was within normal limets. We gave her some water, juice and crackers and she began feeling better. We were able to remove the remainder of the sutures We discussed that she will need to remain nonweightbearing. The will place her in a short leg nonweightbearing fiberglass cast today. This plan was discussed with the patient and they are in agreement. All of the patient's questions were answered. The patient understand to contact us if they have any other questions or concerns. FU: 2 weeks wound cast off wound check. No XR needed. Mary Ellison PA-C The above dictation was made with voice recogonition software Olivia Salinas - 10/01/2018 11:00 AM EDT Jenae La presents to the cast room for bilateral casts on per Mary Ellison PA-C. The patient's pin sites were intact and padded with felt and webril. The patient is going into bilateral well padded fiberglass short leg nonweightbearing casts. The patient tolerated the procedure well. The patient was given instructions for cast care and was given instruction to call the clinic with any questions or concerns. documented in this encounter Plan of Treatment Not on filedocumented as of this encounter Visit Diagnoses Diagnosis S/P ORIF bilateral foot fractures, (Gitajn) documented in this encounter Care Teams Chain Dyer Relationship Specialty Start Date End Date Yamile De Leon APRN PCP - General Family Medicine 10/01/18 [address] [place] [address] documented as of this encounter
--- OUTSIDE RECORDS SUMMARY | 2022-02-13 17:06 | XMS_ITS | Encounter Summary ---
:1965 Author Organization [facility] [place] [address] Care Team Providers Name Role Phone Emma Miramontes APRN Primary Care Provider Reason for Visit Reason Comments Skin Problem Encounter Details Date Type Department Care Team Description 09/24/2011 Office Visit Dermatology Hammad Fields, Psoriasiform [address] [facility] dermatitis (Primary [address]) [place], [place] DERMATOLOGY [id number] [place] [address] [phone] (Wo rk) Social History Tobacco Use Types Packs/Day Years Used Date Former Smoker Sex Assigned at Date Recorded Not on file documented as of this encounter Progress Notes Hammad Fields MD - 09/24/2011 5:09 PM EDT Problem: Skin rash. Jenae is a 46-year-old woman who for the last five years has been having increasing problems with dermatitis on her hands, feet, and elbows. They are often irritated. Also, she has had a lot of itching of her scalp. She states that she has used different medicated shampoos with only partial improvement, Lac-Hydrin 12% lotion with really no improvement and things are still getting worse. She is referred today in consultation by Emma Miramontes from the [facility]. The patient states that her daughter has psoriasis on her elbows and knees but that she herself has never been diagnosed with this. She becomes particularly symptomatic at times when the thickened skin of her palms and soles cracks and bleeds. Physical examination reveals a pleasant 46-year-old woman who has today actually no dermatologic findings of the palmar hands. There is no pitting of her nails. She has some erythema and slight hyperkeratosis of her left elbow, really none on her right, and mild diffuse seborrheic dermatitis of the scalp but without diagnosable psoriasis. She has no umbilical rash nor on her back. She has moderate xerosis approaching but really not consistent with ichthyosis of the bilateral lower calves. She has mild to moderate hyperkeratosis of the heels of her feet and a little bit on the lateral aspects of the medial halluces bilaterally. Assessment and Plan: Palmar plantar hyperkeratosis. a. Not diagnosable today as psoriasis but certainly suspicious for that. b. Recommended good emollient therapy with CeraVe cream. c. Prescription given for Betamethasone Dipropionate cream 45 g with three refills applied b.i.d. here if and when she becomes symptomatic again on the hands and may use on her feet as well. d. For scalp itching and involvement, recommend using a medicated shampoo such as T/Gel or generic tar shampoo alternating with for instance T/Carlos. Lather for two or three minutes before rinsing out. For scalp involvement also begin using clobetasol scalp solution applying on an at-bedtime basis p.r.n. to affected scalp 50 mL dispensed with p.r.n. refills. e. Return to clinic here at the point of diminishing returns. Copy: Emma Miramontes APRN documented in this encounter Plan of Treatment Not on filedocumented as of this encounter Visit Diagnoses Diagnosis Psoriasiform dermatitis - Primary Other psoriasis and similar disorders documented in this encounter Care Teams Track Inspecting Supervisor Relationship Specialty Start Date End Date Emma Miramontes APRN PCP - General 04/16/10 12/10/17 documented as of this encounter
--- OUTSIDE RECORDS SUMMARY | 2022-02-13 17:06 | XMS_ITS | Encounter Summary ---
:1965 Author Organization [facility] [place] [address] Care Team Providers Name Role Phone Unavailable Primary Care Provider Unavailable Encounter Details Date Type Department Care Team Description 09/13/2018 Ancillary Procedure [place] [address] Social History Tobacco Use Types Packs/Day Years Used Date Former Smoker Sex Assigned at Date Recorded Not on file documented as of this encounter Plan of Treatment Not on filedocumented as of this encounter Procedures Procedure Name Priority Date/Time Associated Diagnosis Comme nts FILM LIBRARY Routine 09/13/2018 12:00 AM Results for this STORAGE ONLY DX EDT procedure ar e in CHEST the results section. documented in this encounter Results Film Library- Storage Only DX Chest (09/13/2018 12:00 AM EDT) Specimen (Source) Anatomical Location Collection Method / Collectio n Time Received Time / Laterality Volume Narrative [facility] - 09/15/2018 10:46 AM EDT This exam is auto-finalizing. It's purpo se is for storage only. Javad Urban MD IMG FILM LIBRARY ORDERABLES Performing Organization Address City/State/ZIP Code Phon e Number RAD [place], [place] documented in this encounter Visit Diagnoses Not on filedocumented in this encounter
--- OUTSIDE RECORDS SUMMARY | 2022-02-13 17:06 | XMS_ITS | Encounter Summary ---
:1965 [place] [address] Care Team Providers Name Role Phone Unavailable Primary Care Provider Unavailable Encounter Details Date Type Department Care Team Description 09/12/2018 Ancillary Procedure Radiology Library at Aparna Reed ea, [facility] [facility] [place] [address] ORTHOPAEDIC SURGERY [phone] [place], [place] [address] (Wo rk) Social History Tobacco Use Types Packs/Day Years Used Date Former Smoker Sex Assigned at Date Recorded Not on file documented as of this encounter Plan of Treatment Not on filedocumented as of this encounter Procedures Procedure Name Priority Date/Time Associated Diagnosis Comme nts FILM LIBRARY Routine 09/12/2018 12:05 AM Results for this STORAGE ONLY DX EDT procedure ar e in FOOT the results section. documented in this encounter Results Film Library- Storage Only DX Foot (09/12/2018 12:05 AM EDT) Specimen (Source) Anatomical Location Collection Method / Collectio n Time Received Time / Laterality Volume Narrative RAD - 09/13/2018 12:55 PM EDT This exam is auto-finalizing. It's purpo se is for storage only. Aparna [place] MD [facility] [place]M LIBRARY ORDERABLES Performing Organization Address City/State/ZIP Code Phon e Number [place], [place] documented in this encounter Visit Diagnoses Not on filedocumented in this encounter
== END 2022-02-13 17:02 | disposition home or self-care (01) ==
LOC: NCHCN 17:01
PROVIDERS: PCP Nurse Practitioner Family; Visit Provider Nurse Practitioner Family
DX: I10 Essential (primary) hypertension (principal); E11.9 Type 2 diabetes mellitus without complications
CPT/HCPCS: 80053; 82550; 83721; 83718

== ENCOUNTER → 2022-03-18 12:55 | Outpatient (CLI) | payer MEDICARE, MEDICAID, SELFPAY ==
--- NOTE | 2022-03-18 | DI.RAD_ITS ---
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 TECHNIQUE: 2D digital imaging was performed. COMPARISON: No exams were available for comparison FINDINGS: Five views: No evidence of fracture, listhesis, nor pars defects. No significant disc space narrowing although t here is multilevel anterior osseous lipping noted. No scoliosis. Minimal facet joint degenerative c hanges. Sacroiliac joints unremarkable. No osseous lesions. IMPRESSION: Minimal radiographic findings the lumbosacral spine. DATA REPOSITORY: RADIATION DOSE DELIVERED:
== END ==
PROVIDERS: PCP Nurse Practitioner Family; Visit Provider Nurse Practitioner Family
DX: M54.59 Other low back pain (principal)
CPT/HCPCS: 72110

== ENCOUNTER 2022-05-28 12:59 | Outpatient (REF) | payer MEDICARE, MEDICAID, SELFPAY ==
[2022-05-29 22:07] LABS: Influenza A RNA Result Negative (Negative); Influenza B RNA Result Negative (Negative); RSV RNA Result Negative (Negative)
== END 2022-05-28 13:00 | disposition home or self-care (01) ==
LOC: NCHCN 12:59
PROVIDERS: PCP Nurse Practitioner Family; Visit Provider Nurse Practitioner Family
DX: R05.1 Acute cough (principal); N39.0 Urinary tract infection, site not specified
CPT/HCPCS: 87631; 87086

== ENCOUNTER 2022-06-26 16:16 | Outpatient (REF) | payer MEDICARE, MEDICAID, SELFPAY ==
[2022-06-28 12:16] LABS: O-desmethyltramadol 3797 ng/mL (Cutoff:25); Tramadol 6144 ng/mL (Cutoff:25)
== END 2022-06-26 16:17 | disposition home or self-care (01) ==
LOC: NCHCN 16:16
PROVIDERS: PCP Nurse Practitioner Family; Visit Provider Nurse Practitioner Family
DX: M54.59 Other low back pain (principal)
CPT/HCPCS: 80373

== ENCOUNTER 2022-06-30 11:23 | Outpatient (REF) | payer MEDICARE, MEDICAID, SELFPAY ==
[2022-06-30 13:03] LABS: Bilirubin Color Interference (Negative); Blood Color Interference (Negative); Clarity Cloudy (Clear); Glucose Color Interference mg/dL (Negative); Ketones Color Interference mg/dL (Negative); Leukocyte Esterase Color Interference (Negative); Nitrite Color Interference (Negative); Specific Gravity 1.015 (1.005-1.025); Urobilinogen Color Interference EU/dL (Up TO 0.2)
[2022-06-30 13:09] LABS: Bacteria Rare HPF (Negative); C & S Indicated? Yes; Casts Negative LPF (Negative); Crystals Negative HPF (Negative); Epithelial Cells Rare HPF (Negative); Mucus Negative (Negative); RBC >50 HPF (0-2)
[2022-06-30 20:51] LABS: Abs Immature Grans 0.02 10^3/uL (0.0-0.06); Absolute Basophil Count 0.07 10^3/uL (0.0-0.2); Absolute Eosinophil Count 0.11 10^3/uL (0.0-0.7); Absolute Lymphocyte Count 2.36 10^3/uL (1.2-3.4); Absolute Monocyte Count 0.63 10^3/uL (0.1-0.8); Absolute Neutrophil Count 7.44 10^3/uL (1.2-6.7); Basophils % 0.7; HGB 14.5 g/dL (11.2-15.7); Immature Grans % 0.2; Lymphocytes % 22.2; MCH 31.7 pg (27.0-33.0); MCHC 33.7 % (32.0-36.0); MCV 94 fL (80-95); Monocytes % 5.9; Platelet Count 290 10^3/uL (130-400); RBC 4.58 10^6/uL (3.93-5.22); RDW 12.3 % (11.7-14.6); RDW-SD 42.4 fL; WBC 10.63 10^3/uL (4.4-10.8)
[2022-06-30 21:08] LABS: Anion Gap 9.9 mmol/L (3-11); BUN 11 mg/dL (7-18); CO2 27.1 mmol/L (21.0-32.0); CREATININE 0.9 mg/dL (0.55-1.02); Calcium 9.2 mg/dL (8.5-10.1); Chloride 104 mmol/L (98-107); Estimated GFR 75.97 (mL/min/1.73m2); Glucose 315 mg/dL (74-106); Potassium 4.1 mmol/L (3.5-5.1); Sodium 141 mmol/L (136-145)
== END 2022-06-30 11:24 | disposition home or self-care (01) ==
LOC: LBN 11:23
PROVIDERS: PCP Nurse Practitioner Family; Visit Provider Nurse Practitioner Family
DX: R39.9 Unspecified symptoms and signs involving the genitourinary system (principal); R30.0 Dysuria; R31.9 Hematuria, unspecified
CPT/HCPCS: 80048; 81003; 81015; 85025; 87086

== ENCOUNTER 2022-09-22 18:17 | Outpatient (REF) | payer MEDICARE, MEDICAID, SELFPAY ==
[2022-09-22 18:58] LABS: Hemoglobin A1C 6.9 % (<5.7)
== END 2022-09-22 18:18 | disposition home or self-care (01) ==
LOC: NCHCN 18:17
PROVIDERS: PCP Nurse Practitioner Family; Visit Provider Nurse Practitioner Family
DX: E11.9 Type 2 diabetes mellitus without complications (principal)
CPT/HCPCS: 83036

== ENCOUNTER 2022-11-05 02:40 | Outpatient (CLI) | payer MEDICARE, MEDICAID, SELFPAY ==
--- NOTE | 2022-11-05 | DI.MAMMO_ITS ---
Exam(s) MAMMO SCREENING EXAM: MAMMO SCREENING CLINICAL HISTORY: SCREENING, Z12.39. TECHNIQUE: Bilateral full field digital CC and MLO mammographic images were obtained with 3D tomosyn thesis and utilizing computer aided detection (CAD). COMPARISON: Prior mammograms were reviewed. FINDINGS: No new right breast findings. The previously described finding in medial aspect of the right breast has decreased in size, further evidence that it is benign finding, most probably an element of fat ne crosis. In the left breast there is a lobulated noncalcified nodular density evident located 6 cm in from the nipple on the MLO view and measuring approximately 8 x 8 mm. It is medial of center on the CC view. This is more evident than on prior mammograms. There are no malignant-appearing microcalcification groups in this region or elsewhere in either breast. There is no significant architectural distortion nor skin thickening-retraction. IMPRESSION: 1. No radiographic evidence of malignancy in the right breast. 2. Left breast nodule now evident which requires spot compression views and ultrasound. BI-RADS Category 0 - Assessment Incomplete: Need additional imaging evaluation Breast Density - Category B - Scattered areas of fibroglandular density Breast density Category C or D implies that the patient has dense breast tissue. Dense breast tissue can make it harder to find cancer on a mammogram. Dense breast tissue is also associated with an incr eased risk of breast cancer. This information about the result of the mammogram report was provided to the patient to raise their awareness. Use this report when you speak with the patient about their risks for breast cancer, which includes their family history. At that time, you may recommend additional screening tests (Ultrasoun d or MRI) as these tests may add significant information. A negative radiographic report should not delay biopsy if a dominant or clinically suspicious mass is present. Up to ten percent of cancers are not identified on mammography. A negative report may reinforce clinical impression. Adenosis and dense breasts may obscure an underlying neoplasm. False positive reports average 6 to 10%. Patient will receive a letter notifying them of these results.
--- NOTE | 2022-11-05 07:31 | DI.US_ITS ---
APPROVED REPORT EXAM: Comprehensive 2D, Doppler, and color-flow Echocardiogram Patient Location: Out-Patient Oil Speculator: Davin Wolfe RDMS, RVT Indications: systolic heart murmur Other Information Study Quality: Adequate Conclusion Normal left ventricular wall thickness and chamber size. Ejection fraction is 55%. Wall motion is n ormal Normal right ventricular size and systolic function Both atria are normal in size Aortic valve is trileaflet and minimally sclerotic with trace regurgitation There is no additional structural or hemodynamically significant valvular disease Estimated right ventricular systolic pressure is 26 mmHg Wall motion Left Ventricle The left ventricle is normal size. The left ventricular systolic function is normal. The left ventric ular ejection fraction is within the normal range. There is normal left ventricular wall thickness. T here is normal LV segmental wall motion. There is no ventricular septal defect visualized. LVEF is 55 %. Right Ventricle The right ventricle is normal size. The right ventricular systolic function is normal. The RVSP is 26 .0 mmHg. Atria The left atrium size is normal. The right atrium size is normal. The interatrial septum is intact wit h no evidence for an atrial septal defect. Aortic Valve The aortic valve is minimally sclerotic Aortic valve is trileaflet. There is no aortic valvular steno sis. Trace aortic regurgitation. Mitral Valve The mitral valve is normal in structure. No evidence of mitral valve stenosis. Trace mitral regurgita tion. Tricuspid Valve The tricuspid valve is normal in structure. There is no tricuspid valve stenosis. Trace tricuspid reg urgitation. Pulmonic Valve Pulmonic valve is not well visualized. There is no pulmonic valvular stenosis. There is no pulmonic v alvular regurgitation. Great Vessels The aortic root is normal in size. The ascending aorta is normal in size. Aortic arch is normal in ca liber. IVC is normal in size and collapses >50% with inspiration. Pericardium There is no pericardial effusion. 2D Dimensions IVSD d PLAX 0.55 cm F: 0.6-1.0 LV Vol A2C d MOD 128.6 mL LVPW d PLAX 0.56 cm F: 0.6 - 1.0 LV Vol A4C d MOD 128.1 mL LVID d PLAX 4.64 cm F: 3.8 - 5.2 LA vol/ BSA A4C s A-L 26.3 mL/m2 LVDs 3.30 cm F: 2.2 - 3.5 LA Area A4C s MOD 16.18 cm2 Ao Root d 2.85 cm F: 2.7 - 3.3 LV EF A4C MOD 52.8 % Ao Asc Diam d 2.61 cm F: 2.3 - 3.1 LV EF A2C MOD 52.6 % LV EF Teichholz 55.1 % LV EF Biplane MOD 52.8 % LVEF (Milton's) 52.76 % F: 54 - 74 SV 68.33 mL LV Volume 101.59 mL F: 46 - 106 SV Index 38.86 mL/m2 LV Volume Index 57.72 mL/m2 F: 29 - 61 LV Vol Biplane MOD 129.5 mL FS 28.55 % M-Mode TAPSE 2.28 cm (M/F) >1.7 LV Diastology MV E' medial 0.154 (>0.07 m/s) E/A Ratio 0.9 LV E/e MED 5.90 (<14) MV E Vmax 0.91 (0.4-1.3 m/s) MV E' lateral 0.134 (>0.1 m/s) MV A Vmax 1.00 (0.4-1.3 m/s) LV E/e LAT 6.80 (<14) MV E/A Ratio 0.90 MV E/E' medial 5.91 MV E/E' lateral 6.81 Aortic Valve LVOT Area 2.85 cm2 AoV Area Vmax 1.92 cm2 LVOT Vmax 1.02 m/s AoV Area/ BSA (Vmax) 1.09 cm2/m2 LVOT Mean Toro. 0.61 m/s ISAK Mean Toro. 1.75 cm2 LVOT Peak Grad 4.2 mmHg ISAK Mean Toro. Index 1.00 cm2/m2 LVOT Mean Grad 1.8 mmHg AR DT 1455 msec LVOT VTI 0.188 m AR PHT 422 msec LVOT Diam s 1.90 cm AoV Vmax 1.52 m/s Velocity Ratio 0.67 AoV Mean Toro. 0.99 m/s AoV Peak Grad 9.2 mmHg LVOT SV 53.49 mL AoV Mean Grad 4.6 mmHg AoV VTI 0.267 m AoV Area VTI 2.01 cm2 AoV Area/ BSA (VTI) 1.14 cm/m2 Mitral Valve MV DT 236 (160-240 msec) MV PHT 68 msec MV Area PHT 3.21 cm2 MV VTI 0.286 m MV Area VTI 1.87 (4.0-6.0 cm2) Pulmonary Valve PV Vmax 0.85 (0.5-1.5 m/s) RVOT Peak Gr. 0.82 mmHg PV Peak Grad 2.9 mmHg RVOT Mean Gr. 0.55 mmHg PV Mean Grad 1.6 mmHg RVOT VTI 0.114 m PV VTI 0.188 m RVOT Vmax 0.45 m/s Tricuspid Valve TR Peak Grad 22.9 mmHg TR Vmax 2.40 m/s RA Pressure 3.00 mmHg RVSP (TR) 26.0 mmHg
== END 2022-11-05 03:00 ==
LOC: DI 02:40
PROVIDERS: PCP Nurse Practitioner Family; Visit Provider Nurse Practitioner Family
DX: R01.1 Cardiac murmur, unspecified (principal); Z12.31 Encounter for screening mammogram for malignant neoplasm of breast
CPT/HCPCS: 77063; 77067; 93306

== ENCOUNTER 2022-11-14 00:37 | Outpatient (CLI) | payer MEDICARE, MEDICAID, SELFPAY ==
--- NOTE | 2022-11-14 | DI.US_ITS ---
Exam(s) MG MAMMO SCREEN CALL BACK UNI US BREAST LT LIMITED EXAM: MG MAMMO SCREEN CALL BACK UNI and U/S breast LT limited CLINICAL HISTORY: LT BREAST NODULE NOW EVIDENT, R92.8. TECHNIQUE: Craniocaudal and mediolateral oblique Full Field Digital Mammography views of the left br east with Computer Aided Diagnosis followed by Tomosynthesis and left breast ultrasound. COMPARISON: Comparison is made with prior examinations. FINDINGS: Mammography/Tomosynthesis: Masses/Architectural Distortion: The lobulated nodule in the lower inner quadrant of the left breast is again seen. It appears stable when compared to prior examinations. No areas of architectural dis tortion are present. Microcalcifictions: No suspicious pleomorphic-type are seen. Skin Thickening/Nipple Retraction: None. Limited left breast US: Echotexture: Normal appearance of the glandular tissue. Shadowing: No suspicious foci. Cyst: There is a cluster of cysts at the 7 o'clock position of the left breast 4 cm from the nipple. This would appear to correspond to the mammographic abnormality. Solid lesions: None seen. Ductal dilation: None. IMPRESSION: 1. No evidence of malignancy is noted. 2. Unless there is more urgent need, follow-up screening mammography is recommended, as per [employer] [place] [employer] guidelines. 3. The findings were discussed with the patient on the date of the examination. BI-RADS Category 2 - Benign Findings Breast Density - Category B - Scattered areas of fibroglandular density Breast density Category C or D implies that the patient has dense breast tissue. Dense breast tissue can make it harder to find cancer on a mammogram. Dense breast tissue is also associated with an incr eased risk of breast cancer. This information about the result of the mammogram report was provided to the patient to raise their awareness. Use this report when you speak with the patient about their risks for breast cancer, which includes their family history. At that time, you may recommend additional screening tests (Ultrasoun d or MRI) as these tests may add significant information. A negative radiographic report should not delay biopsy if a dominant or clinically suspicious mass is present. Up to ten percent of cancers are not identified on mammography. A negative report may reinforce clinical impression. Adenosis and dense breasts may obscure an underlying neoplasm. False positive reports average 6 to 10%. Patient will receive a letter notifying them of these results.
== END 2022-11-14 00:57 ==
LOC: DI 00:38
PROVIDERS: PCP Nurse Practitioner Family; Visit Provider Nurse Practitioner Family
DX: R92.8 Other abnormal and inconclusive findings on diagnostic imaging of breast (principal); Z12.31 Encounter for screening mammogram for malignant neoplasm of breast
CPT/HCPCS: 76642; 77063; 77067

== ENCOUNTER 2022-12-22 15:31 | Outpatient (CLI) | payer MEDICARE, MEDICAID, SELFPAY ==
--- NOTE | 2022-12-22 15:15 | DI.RAD_ITS ---
Exam(s) XR FOOT RT COMPLETE EXAM: XR FOOT RT COMPLETE CLINICAL HISTORY: RIGHT FOOT PAIN. TECHNIQUE: 2D digital imaging was performed. Three views. COMPARISON: CR XR foot RT complete from 01/27/2019 FINDINGS: BONES: No acute fracture is present. No bony destructive lesion is seen. There has been removal of t he previously noted hardware in the proximal phalanx of the great toe and the majority of the hardwar e seen at the 1st and 2nd tarsal metatarsal joints. A small fragment of screw remains present at the base of the 2nd metatarsal. Enthesophyte at Achilles insertion calcaneus. JOINTS: No dislocation present. Severe degenerative changes at the 1st MTP joint. No hallux valgus. Degenerative changes also present at the tarsal metatarsal joints. SOFT TISSUE: Normal. IMPRESSION: Degenerative changes. Removal previously noted hardware. DATA REPOSITORY: RADIATION DOSE DELIVERED:
--- NOTE | 2022-12-22 15:30 | DI.RAD_ITS ---
Exam(s) XR FOOT LT COMPLETE EXAM: XR FOOT LT COMPLETE CLINICAL HISTORY: HX LIS FRANC FX. TECHNIQUE: 2D digital imaging was performed. Three views. COMPARISON: CR XR foot RT complete from 01/27/2019 CR XR foot LT complete from 01/27/2019 CR XR FOOT RT COMPLETE from 12/22/2022 FINDINGS: BONES: No acute fracture is present. Previously noted fractures have healed. No bony destructive le helene is seen. Bones appear osteopenic. A fixation plate is again noted at the 4th metatarsal. Ent hesophyte at Achilles insertion on calcaneus. JOINTS: No dislocation present. There are advanced degenerative changes at the tarsal metatarsal josette ints. SOFT TISSUE: Normal. IMPRESSION: Degenerative and postsurgical changes. DATA REPOSITORY: RADIATION DOSE DELIVERED:
== END 2022-12-22 15:32 | disposition home or self-care (01) ==
PROVIDERS: PCP Nurse Practitioner Family; Referring Provider Nurse Practitioner Family; Visit Provider Student in an Organized Health Care Education/Training Program
DX: T84.84XA Pain due to internal orthopedic prosthetic devices, implants and grafts, initial encounter (principal); M19.071 Primary osteoarthritis, right ankle and foot; M19.072 Primary osteoarthritis, left ankle and foot
CPT/HCPCS: 99215; 73630

== ENCOUNTER 2022-12-29 01:24 | Outpatient (CLI) | payer MEDICARE, MEDICAID, SELFPAY ==
--- NOTE | 2022-12-29 08:15 | DI.CT_ITS ---
Exam(s) CT LOWER EXTREMITY LT WO EXAM: CT LOWER EXTREMITY LT WO CLINICAL HISTORY: evaluate the three-dimensional anatomy of the midfeet,arthritis,m19.072. TECHNIQUE: Imaging Protocol: Axial computed tomography images with coronal and sagittal reformatted images were created and reviewed. CONTRAST MATERIAL: None COMPARISON: CT CT LOWER EXTREMITY LT WO from 09/12/2018 CR XR FOOT LT COMPLETE from 12/22/2022 FINDINGS: Bones: A fixation plate is noted in the 4th metatarsal. There are moderate degenerative changes at t arsal metatarsal joints, greatest at the 1st tarsal metatarsal joint. Mild degenerative changes of t he intertarsal joints. No significant MTP degenerative changes. Small ossicles adjacent to the cubo id and navicular. Enthesophyte at Achilles insertion. Tibiotalar joint is unremarkable. No talar d ome defect. Soft Tissues: Normal. IMPRESSION: Postsurgical and degenerative changes. RADIATION DOSE DELIVERED: 185.71mGy.cm Total DLP DATA REPOSITORY: All CT scans at this facility are submitted to the National Radiology Data Registry (NRDR) Dose Index Registry (DIR) with the [employer] (A[employer]). RADIATION OPTIMIZATION: All CT scans at this facility use at least one of these dose optimization te chniques: automated exposure control; mA and/or kV adjustment per patient size (includes targeted exa ms where dose is matched to clinical indication); or iterative reconstruction.
--- NOTE | 2022-12-29 08:15 | DI.CT_ITS ---
Exam(s) CT LOWER EXTREMITY RT WO EXAM: CT LOWER EXTREMITY RT WO CLINICAL HISTORY: evaluate the three-dimensional anatomy of feet,arthriits,m19.071. TECHNIQUE: Imaging Protocol: Axial computed tomography images with coronal and sagittal reformatted images were created and reviewed. CONTRAST MATERIAL: Intravenous: Omnipaque 350 Contrast volume:structured data in ml Contrast route:IV - COMPARISON: CR XR FOOT RT COMPLETE from 12/22/2022 FINDINGS: Bones: Enthesophyte at Achilles insertion at calcaneus. Small screw seen at base 2nd metatarsal. Celeste re degenerative changes 1st MTP joint. Chronic appearing deformity at the proximal phalanx. Mild dental assistant kalia appearing deformity at base of 2nd proximal phalanx. Mild intertarsal degenerative changes. Mild degenerative changes tibiotalar joint. Advanced degenerative changes at tarsal metatarsal joints. Sca ttered small adjacent bony densities. Small ossicle adjacent to medial aspect of the navicular. Bones appear osteopenic. No evidence of fracture. Soft Tissues: Normal. IMPRESSION: Degenerative changes greatest at 1st MTP joint. RADIATION DOSE DELIVERED: 255.81mGy.cm Total DLP DATA REPOSITORY: All CT scans at this facility are submitted to the National Radiology Data Registry (NRDR) Dose Index Registry (DIR) with the [employer] (ACR). RADIATION OPTIMIZATION: All CT scans at this facility use at least one of these dose optimization te chniques: automated exposure control; mA and/or kV adjustment per patient size (includes targeted exa ms where dose is matched to clinical indication); or iterative reconstruction.
== END 2022-12-29 01:44 ==
LOC: DI 01:24
PROVIDERS: PCP Nurse Practitioner Family; Visit Provider Student in an Organized Health Care Education/Training Program
DX: M19.071 Primary osteoarthritis, right ankle and foot (principal); M19.072 Primary osteoarthritis, left ankle and foot; Z98.890 Other specified postprocedural states
CPT/HCPCS: 73700

== ENCOUNTER 2023-01-20 14:03 | Outpatient (REF) | payer MEDICARE, MEDICAID, SELFPAY ==
[2023-01-20 16:51] LABS: ALT 21 U/L (14-59); AST 13 U/L (15-37); HDL Cholesterol 39 mg/dL (40-60); LDL CHOLESTEROL 85 mg/dL (<100)
[2023-01-20 17:58] LABS: Hemoglobin A1C 5.7 % (<5.7)
[2023-01-20 18:06] LABS: Creatine Kinase 38 U/L (26-192)
== END 2023-01-20 14:04 | disposition home or self-care (01) ==
LOC: NCHCN 14:03
PROVIDERS: PCP Nurse Practitioner Family; Visit Provider Nurse Practitioner Family
DX: I10 Essential (primary) hypertension (principal); E11.9 Type 2 diabetes mellitus without complications
CPT/HCPCS: 82550; 83721; 83036; 83718; 84450; 84460

== ENCOUNTER → 2023-01-30 10:40 | Outpatient (BNVA) | payer MEDICARE, MEDICAID, SELFPAY | PROVIDERS: PCP Nurse Practitioner Family; Referring Provider Nurse Practitioner Family | DX: Z01.818 Encounter for other preprocedural examination (principal); M19.071 Primary osteoarthritis, right ankle and foot ==

== ENCOUNTER 2023-02-12 12:47 | Observation (INO) | payer MEDICARE, MEDICAID, SELFPAY ==
[2023-02-12] VITALS (12 sets, daily range): BP systolic 109–164; BP diastolic 56–98; PULSE 65–86; RESP 12–20; TEMP 36–36.5; O2SAT 94–98; BMI 30.8
--- NOTE | 2023-02-12 07:32 | ANES.PREOP_ITS ---
General Info Date of Service Date Performed: 02/12/23 Height: 5 ft 1 in Weight: 73.936 kg Body Mass Index (BMI): 30.8 Surgical Procedure: Operation Date: 02/12/23 12:10 Proposed Procedure Side Surgeon p Mid-Foot Fusion Right Delvin Peña MD Meds Allergies and Home Medications Allergies Allergy/AdvReac Type Severity Reaction Status Date / Time adhesive tape Allergy Intermediate Hives Verified 02/12/23 10:40 venom-honey bee Allergy Intermediate severe Verified 02/12/23 10:40 local reaction venom-wasp Allergy Intermediate severe Verified 02/12/23 10:40 local reaction doxycycline Allergy Mild Verified 02/12/23 10:40 Sulfa (Sulfonamide Allergy Mild Skin Rash Verified 02/12/23 10:40 Antibiotics) gabapentin AdvReac Unknown Other (See Verified 02/12/23 10:40 Comment) Antibiotics AdvReac Mild Other (See Uncoded 02/12/23 10:40 Comment) Home Medication Medication Instructions Recorded epinephrine 0.3 mg/0.3 mL 1 dis.syr .Route DIRECTED 04/13/17 injection, auto-injector (EpiPen 2-Leonidas) walker #1 ea 04/29/18 albuterol sulfate 90 mcg/actuation 2 inh inhalation Q4H PRN 06/14/18 aerosol inhaler ondansetron HCl 4 mg tablet 4 mg PO QID PRN nausea and 08/22/18 (Zofran) vomiting #6 tabs docusate sodium 100 mg capsule 100 mg PO BID #0 caps 09/14/18 (Colace) ipratropium 0.5 mg-albuterol 3 mg 3 ml UPD Q6H PRN PRN #0 mL 09/14/18 (2.5 mg base)/3 mL nebulization soln nicotine 10 mg inhalation 10 mg inhalation Q2H PRN PRN #0 ea 09/14/18 cartridge (Nicotrol) montelukast 10 mg tablet 10 mg PO DAILY 03/09/19 zolpidem 10 mg tablet 10 mg PO QHS PRN 03/09/19 ascorbate calcium (vitamin C) 500 500 mg PO DAILY 05/16/19 mg tablet estradiol 10 mcg vaginal tablet 10 mcg vaginal DAILY 2 weeks #24 06/19/20 (Vagifem) tabs insulin glargine 100 unit/mL (3 5 unit subcut QAM 09/21/20 mL) subcutaneous pen (Basaglar TienPen U-100 Insulin) simvastatin 20 mg tablet 40 mg PO QPM 10/11/20 acetaminophen 500 mg tablet 500 mg PO Q6H PRN #90 tabs 10/31/20 (Tylenol Extra Strength) amlodipine 2.5 mg tablet 2.5 mg PO DAILY 05/31/21 baclofen 10 mg tablet 10 mg PO TID 05/31/21 biotin 5 mg capsule 5 mg PO DAILY 05/31/21 budesonide-formoterol HFA 80 2 puff inhalation BID 05/31/21 mcg-4.5 mcg/actuation aerosol inhaler (Symbicort) camphor-menthol 0.5 %-0.5 % lotion 1 applic topical BID-QID PRN 05/31/21 (Sarna Original) cholecalciferol (vitamin D3) 25 25 mcg PO DAILY 05/31/21 mcg (1,000 unit) capsule doxepin 10 mg capsule 10 mg PO QHS 05/31/21 famotidine 20 mg tablet (Acid 20 mg PO QHS 05/31/21 Accounts Receivable Collector (famotidine)) fluticasone propionate 50 1 spray intranasal DAILY 05/31/21 mcg/actuation nasal spray,suspension loperamide 2 mg capsule 2 mg PO Q6H PRN 05/31/21 mupirocin 2 % topical ointment 1 applic topical BID 05/31/21 omeprazole 20 mg capsule,delayed 20 mg PO DAILY 05/31/21 release tramadol 50 mg tablet 50 mg PO TID PRN 05/31/21 triamcinolone acetonide 0.1 % 1 applic topical BID 05/31/21 topical cream venlafaxine 75 mg capsule,extended 75 mg PO DAILY 05/31/21 release 24 hr cetirizine 10 mg capsule (All Day 10 mg PO DAILY Prurigo Nodularis, 07/04/21 Allergy (cetirizine)) severe skin itching #30 caps losartan 50 mg tablet 100 mg PO DAILY 03/20/22 nystatin 100,000 unit/gram topical 1 applic topical TID #60 grams 03/20/22 powder phenazopyridine 100 mg tablet 100 mg PO TID PRN pain 6 doses #6 06/30/22 (Pyridium) tabs meloxicam 15 mg tablet 15 mg PO DAILY 01/30/23 pantoprazole 40 mg tablet,delayed 20 mg PO DAILY 01/30/23 release (Protonix) semaglutide 0.25 mg or 0.5 mg (2 0.25 mg subcut QWEEK 01/30/23 mg/3 mL) subcutaneous pen injector (Ozempic) Current Visit Medications: Current Medications Generic Name Dose Route Start Last Admin Trade Name Freq PRN Reason Stop Dose Admin Acetaminophen 1,000 mg 02/12/23 06:00 Acetaminophen 500 Mg Tab PO 02/12/23 18:00 PREOP DAYANA Celecoxib 400 mg 02/12/23 06:00 Celecoxib 200 Mg Cap PO 02/12/23 18:00 PREOP DAYANA Tranexamic Acid 1,000 mg/ 60 mls @ 360 mls/hr 02/12/23 06:00 Sodium Chloride IV 02/12/23 18:00 PREOP DAYANA Ringer's Solution 1,000 mls @ 80 mls/hr 02/12/23 06:00 IV 03/13/23 23:59 INFUSION DAYANA Cefazolin Sodium/Dextrose 2 gm in 50 mls @ 100 mls/hr 02/12/23 06:00 Ancef Duplex IVPB 02/12/23 16:00 PREOP DAYANA IV Miscellaneous Supplies 1 each 02/12/23 06:00 Iv Access IV 03/13/23 23:59 DIRECTED DAYANA Sodium Chloride 0 ml 02/12/23 06:00 Normal Saline Flush 10 Ml Syr IV 03/13/23 23:59 PRN PRN Sodium Chloride 0 ml 02/12/23 06:00 Normal Saline 10 Ml Vial IJ 03/13/23 23:59 DIRECTED PRN Sterile Water 0 ml 02/12/23 06:00 Water,Injection,Sterile 10 Ml Vial IJ 03/13/23 23:59 DIRECTED PRN PFSH Active Problems Active Problems: Problem Status Onset Code Arthritis of first metatarsophalangeal (MTP) joint of right foot M19.071 Arthritis of left midfoot M19.072 Arthritis of right midfoot M19.071 Visit for wound check Z51.89 Prurigo nodularis L28.1 Skin lesion of breast L98.8 Breast lesion N64.9 Obstructive sleep apnea (adult) (pediatric) 09/12/13 G47.33 Tobacco use disorder 05/09/13 F17.200 COPD with acute exacerbation J44.1 GI bleed due to NSAIDs K92.2, T39.395A Encephalopathy acute G93.40 LORRI (obstructive sleep apnea) G47.33 Tobacco abuse Z72.0 IDDM (insulin dependent diabetes mellitus) E11.9, Z79.4 Medical History Medical History Acquired deviated nasal septum (09/12/13) MANUEL (acute kidney injury) Allergic rhinitis (09/26/13) Ambulatory dysfunction Arthritis of left acromioclavicular joint (01/05/17) Asthma CAP (community acquired pneumonia) Cephalalgia (05/09/13) Chronic low back pain with right-sided sciatica Chronic pain Closed head injury Depression Diarrhea Dislocation of tarsometatarsal joint of right foot Dry skin DVT prophylaxis Fibromyalgia Foot fracture, left Foot fracture, right Generalized anxiety disorder GERD (gastroesophageal reflux disease) Headache Heel pain, bilateral Hematuria Hyperlipidemia Hypertension Hypertrophy of nasal turbinates (09/12/13) Hypotension pt. stated this is related to her medication, and her BP fluctuates Impingement syndrome, shoulder, left Lateral epicondylitis of right elbow Long-term insulin use Lumbar back pain Lung nodule Lymphocytic colitis (11/06/17) Macrocytic anemia Macrocytosis Menopause syndrome Narcotic drug use pt. denies this Neuropathy of right lower extremity Nonhealing surgical wound Obesity Obstructive sleep apnea CPAP Occult blood positive stool Osteoarthritis of right knee Postnasal drip (05/09/13) Rhinitis (09/12/13) Right lumbosacral radiculopathy Sepsis Skin rash Tendinitis of left rotator cuff (01/05/17) Tendinitis of right rotator cuff Tobacco use Traumatic arthritis of right foot Twitching Unwitnessed fall Urinary frequency Surgical History Surgical History Colonoscopy - MAC (11/06/17) H/O carpal tunnel repair Bilateral H/O elbow surgery H/O thumb surgery Bilateral H/O: hysterectomy History of total right knee replacement Hx of foot surgery bilateral Painful orthopaedic hardware Right foot s/p removal 03/08/2019 S/P arthroscopy of left shoulder 03/2017 S/P left knee arthroscopy S/P right knee arthroscopy ~2011 Tobacco Smoking/Tobacco Use Status: Current every day Tobacco Type: cigarettes Smoking cigarettes per day: 3 Alcohol Alcohol Intake: former Substance Use Substance use: Never Substance use type: does not use Vital Signs and Lab Results Vital Signs Most Recent Vital Signs in EMR: Temp Pulse Resp BP Pulse Ox 36.4 C L 86 18 164/98 H 98 02/12/23 10:25 02/12/23 10:25 02/12/23 10:25 02/12/23 10:02/12/23 10:25 Lab Results Blood Type / Crossmatch: No Data to Display Complete Blood Count: No Data to Display Complete Metabolic Panel: Hemoglobin A1c 5.7 % (<5.7) 01/20/23 11:20 Liver Function Panel: Alanine Aminotransferase (ALT/SGPT) 21 U/L (14-59) 01/20/23 11: 20 Aspartate Amino Transf (AST/SGOT) 13 U/L (15-37) L 01/20/23 11: 20 Coagulation Panel: No Data to Display Cardiac Panel: Creatine Kinase 38 U/L (26-192) 01/20/23 Arterial Blood Gas: No Data to Display Venous Blood Gas: No Data to Display Pancreas Panel: No Data to Display Thyroid Panel: No Data to Display Infectious Disease: No Data to Display Blood Cultures: No Data to Display Toxicology Panel: No Data to Display Imaging and Studies Imaging and Studies Study information below may be from another EMR and interpreted by another provider. Please see original notes in EMR for more complete details. Echocardiogram Summary: 11/14: LVEF 55%, trace AR. RVSP 26 mmhg. Carotid Artery Summary:: Date: 09/12/18 IMPRESSION: No significant internal carotid artery stenosis or plaque. Anesthesia Assessment and Plan Anesthesia History Personal History: No History of Anesthesia Complications Family History: No Family History of Anesthesia Complications Exercise Tolerance Exercise Tolerance: Metabolic Equivalents>4 Cardiac & Pulmonary Exam Cardiac Exam: Normal S1/S2 Heart Sounds Pulmonary Exam: Clear Bilateral Breath Sounds Implantable Cardiac Device Does patient have a Pacemaker or an ICD?: No Airway Exam Known Difficult Airway: No Mallampati Class: 2 Mouth Opening: Normal (> 3cm) Thyromental Distance: Greater than 3 cm Neck Range of Motion: Full ROM Neck Circumference: Normal Teeth Condition: Other ASA Classification ASA Score: ASA 3 Emergency Case?: No NPO Status NPO Status: NPO Clears >2 hours, Solids >8 hours Anesthesia Plan Resuscitation Status: Full Code Anesthesia Technique: General Anesthesia Airway Planned: Endotracheal Tube Monitors Used: Standard Monitors Preoperative Comments:: 57 yo female for mid foot fusion. Sig PMHx: HTN (amlodipine, losartan), LORRI (does use CPAP), COPD/asthma (symbicort, albuterol, ipratropium listed, breathing feel good today), GERD (PPI, currently having symptoms, sleeps with HOB elevated. poorly controlled), DM (last a1c 5.7, ozempic (last dose 01/27), glargine 5 units - none today), depression, fibromyalgia, neuropathy in right LE. Previous Anes: - TKA, spinal, prop sedation, no issues. - hardware removal, LMA 5, no issues. - colo, prop, natural airway, no issues. - shoulder, mac 3 grade 1, easy mask. Discussed spinal vs general - not interested in spinal at all. Discussed nerve block (risk of nerve injury being higher given surgry, neuropathy, and DM) - not at all interested as she has numbness associated with previous TKA. Plan: DARRELL
[2023-02-12] MEDS: Acetaminophen 500 MG TAB 1000 MG PO ×3 (11:05→20:05)
[2023-02-12] MEDS: Celecoxib 200 MG CAP 400 MG PO (11:06)
[2023-02-12] MEDS: Lactated Ringers 1,000 ML 80 ML IV ×2 (11:30→23:42)
[2023-02-12] MEDS: ceFAZolin 2 GM/50 ML BAG IVPB (12:34)
--- NOTE | 2023-02-12 15:53 | DI.RAD_ITS ---
Exam(s) XR FOOT RT LIMITED EXAM: XR FOOT RT LIMITED CLINICAL HISTORY: Arthritis of first metatarsophalangeal (MTP) joint of right foot. TECHNIQUE: 2D and realtime digital imaging was performed. COMPARISON: CR XR FOOT RT COMPLETE from 12/22/2022 FINDINGS: Hard copy images show placement fixation plates across the 1st, 2nd and 3rd MTP joints. Please see procedure note for details. Fluoro time: 48seconds RADIATION DOSE DELIVERED: adrianna Robins=1.57 mGy
--- NOTE | 2023-02-12 16:09 | ROE_ITS ---
Date of service: 02/12/23 Time of Service: 16:00 Operative Note Operative Note DATE OF PROCEDURE: 02/12/23 PRE-OP DIAGNOSIS: Right Post-traumatic Midfoot Arthritis POST-OP DIAGNOSIS: same PROCEDURE: Right 1st, 2nd, 3rd Tarsometatarsal Fusion SURGEON: Delvin Peña PEST CONTROL TECHNICIAN: Krystal Villatoro ANESTHESIA TYPE: General LMA/ETT Refer to Anesthesia Record ESTIMATED BLOOD LOSS: 100 PATHOLOGY: none sent TOURNIQUET TIME: 115 COMPLICATIONS: None Patient was transported to: PACU Patient's condition: stable Indications: Jenae is a 57-year-old female who suffered a fall resulting in bilateral Lisfranc fractures. She is treated with open reduction internal fixation at [facility]. She went on to have some prominent hardware which was removed. However, she continued to have pain and was found to have notable arthritis about the midfoot, particular the first and second TMT joints. Given her pain with weightbearing and the failure of other nonoperative options she elected to proceed with midfoot fusion involving the first, second, and third tarsometatarsal joints. I reviewed the surgery with her in the office and on the day of surgery. I discussed the risk to include bleeding, infection, pain, stiffness, hardware prominence, hardware failure, damage to nerves and vessels, damage to muscle and tendons, nonunion, blood clot. Despite these risk, she elects to proceed. Findings: There is notable arthritis seen within the first TMT joint. There is arthrosis of the second TMT joint with deformity at the base of the second metatarsal with some loose bony fragments and notable fibrous deposition around the medial aspect of the second TMT joint. The third TMT joint had a large dorsal osteophyte and arthrosis seen over the dorsal extent primarily. Each joint was prepared to promote union and secured with a plate from the 2.7 mm VA locking forefoot plate system by [employer]. Procedure Description: Jenae was greeted in the preoperative holding area. Her identity was confirmed the correct site was identified and marked. The consent was reviewed with the patient and signed. She was taken to the operating room placed in supine position. A bump was placed underneath the right hip. The right leg was prepped ChloraPrep draped in a standard fashion. A nonsterile was placed previously high up on the right thigh. A timeout was performed for safe surgery. Prophylactic antibiotics in the form of cefazolin were administered. The previous incision over the medial aspect the forefoot was utilized and extended proximally distally by about 1 cm. This incision was taken down sharply the skin. The deep tissues were dissected with blunt dissection techniques to reach the periosteum of the first TMT joint. The medial and lateral aspects of the EHL tendon were freed for visualization and for mobilization of the tendon and access to the first and second TMT joints. Starting with the first TMT joint the periosteum was incised about the first TMT capsule and this was elevated subperiosteally onto the medial cuneiform as well as the base of the first metatarsal. There is notable irregularity of the first TMT joint. A rongeur and osteotome were utilized to remove dorsal osteophytes and prominence from the TMT joint. The joint was then visualized. There is no significant cartilage left within the TMT joint except deep. The capsule was released and a small joint distractor was placed to gain visualization of the first TMT joint. With this distracted I remove the cartilaginous surfaces with a curette and a rongeur. I then prepared the joint by fish scaling the subcho ndral surface with a small osteotome as well as a 2.0 mm drill. A small amount of BMP material was then placed within the first TMT joint. This was then reduced with excellent compression and held with a K wire. X-ray confirmed appropriate positioning of the first TMT joint. I then placed a 2.7 mm cortex screw using lag technique to compress the joint. With the joint compressed a first TMT fusion plate was positioned dorsomedially. It was contoured and held on the bone with a K wire. X-ray showed appropriate positioning. This was then secured to the bone using nonlocking screws and finally with locking screws. X- ray once again showed appropriate position of the plate and screws. The second TMT joint was then visualized from this same interval but working lateral to the EHL tendon. There is notable irregularity at the base of the second metatarsal. There is also significant fibrous tissue and nonunion fragments. These were removed with a rongeur. The joint was able to be a ppreciated. Using the small distractor is able to open up the joint and remove any remnant fibrous tissue. There is no significant cartilage left. Utilizing a rongeur and a curette I removed any remnant fibrous material from within the joint and was able to easily visualize the distal extent of the lateral aspect of the medial cuneiform. I was able to fully free up the second TMT joint. The lateral aspect of the second TMT joint was mostly visualized from this area. However, to be complete, I made a longitudinal incision at the medial border of the fourth metatarsal joint. This was taken out sharply the skin. Branches of superficial nerves were protected and dissected away. Extensor tendons were also mobilized and the capsule of the third TMT joint was identified. This deep layer was entered and I was able to work over to the second to the joint. The lateral aspect of the second TMT joint was identified and was made sure to be fully released and prepared for fusion. Moving back to the medial based incisio, BMP was placed within the wound. A clamp was placed from medial to lateral and bringing the second metatarsal medially abutting the lateral border of the medial cuneiform. AT style TMT plate was then placed with 2 olive K wires. X-ray showed. Positioning of the bone and of the plate. I then used the compression device within the plating system to compress the second TMT joint. A nonlocking screw was placed distally in the shaft. The remainder of the holes were filled with locking screws. The compression device was removed and x-ray once again showed appropriate position of the plate and the screws and compression of the joint. Attention was then turned to the third TMT joint. Similarly, the capsule periosteum was elevated off the third TMT joint. There is a large dorsal osteophyte which was removed with a rongeur. An ostium was also used to help smooth the surface. There is some arthrosis seen in the dorsal aspect of the third TMT joint. A small joint distractor was placed in order to distract the joint and gain better visualization. Any remnant cartilage was removed with a curette. I used a small osteotome to fish scaled the surfaces to promote bony union. A small amount of BMP was placed within the third TMT joint and this was reduced. A similar to the style TMT plate was placed and secured with olive wires. X-rays used out position the plate appropriately. Compression was then applied through the K wires and the plate was secured with 2 locking screws on either side of the TMT joint. The K wires were removed. Final x-rays were obtained. This showed appropriate position of the plates and screws. The tourniquet was released after 115 minutes. There is no significant bleeding. Small venous structures or bleeding from the lateral which were cauterized. The wounds were thoroughly irrigated. Deep and subcutaneous tissues were injected with a mixture of 0.25% ropivacaine, epinephrine, clonidine, and ketorolac. Deep tissues were closed with a 2-0 Vicryl. The skin was closed with 4-0 nylon. The wounds were dressed with Xeroform, 4 x 4's, ABD, short leg splint.
[2023-02-12] MEDS: HYDROmorphone 2 MG/ML SYR IVP ×2 (16:16→16:36)
--- NOTE | 2023-02-12 16:42 | W.ANESPOSTOP ---
Postoperative Evaluation Date, Time and Location Date Performed: 02/12/23 Time Performed: 16:43 Patient Location: PACU Vital Signs Most Recent Imported Vital Signs: Most Recent Vital Signs Temp Pulse Resp BP Pulse Ox 36.5 C 66 18 109/61 96 02/12/23 16:33 02/12/23 16:33 02/12/23 16:33 02/12/23 16:33 02/12/23 16:33 Pain Score Most Recent Pain Score: Most Recent Pain Score Pain Level 6 02/12/23 16:33 Assessment Mental Status: Awake (Alert & Oriented to Patient Baseline) Airway and Respiratory Function: Patent airway with normal (patient baseline) respiratory exam Cardiovascular Function: Hemodynamically Stable Hydration Status: Adequately Hydrated Nausea & Vomiting: No Nausea or Vomiting Pain: Pain is Moderate or Severe Postoperative Pain Management: Ongoing pain, patient will be managed as an inpatient Peripheral Nerve Block: Patient did not receive a nerve block
[2023-02-12] MEDS: oxyCODONE 5 MG TAB PO (17:44)
[2023-02-12] MEDS: Ketorolac 15 MG/ML VIAL IVP ×2 (17:44→23:06)
--- NOTE | 2023-02-12 18:20 | RESPIRATORY ---
RT spoke with patient concerning her history of LORRI in her chart and if she uses a machine. Patient stated she does have a machine through [facility] but did not bring it into the hospital as she feels she will be fine without it tonight. Patient stated she feels with her head elevated in the bed she will be fine tonight without it. RT informed patient that if she needs to stay tomorrow night, that we encourage patients to bring their home units in to be used.
[2023-02-12] MEDS: Simvastatin 20 MG TAB 40 MG PO (20:05)
[2023-02-12] MEDS: Baclofen 10 MG TAB PO (20:06)
[2023-02-12] MEDS: Doxepin 10 MG CAP PO (21:55)
[2023-02-12] MEDS: Famotidine 20 MG TAB PO (21:55)
[2023-02-12] MEDS: Normal Saline Flush 10 ML SYR IV (23:06)
[2023-02-13] MEDS: oxyCODONE 5 MG TAB PO ×2 (01:53→08:25)
[2023-02-13 03:34] VITALS: BP 124/68; PULSE 68; RESP 17; TEMP 35.1; O2SAT 97
[2023-02-13] MEDS: Ketorolac 15 MG/ML VIAL IVP (05:44)
[2023-02-13] MEDS: Normal Saline Flush 10 ML SYR IV (05:45)
[2023-02-13 07:14] VITALS: BP 170/70; PULSE 78; RESP 18; TEMP 34.3; O2SAT 97
--- NOTE | 2023-02-13 07:36 | DSE_ITS ---
Date of service: 02/13/23 Time of Service: 07:36 DS: Diagnosis Discharge Diagnosis (1) Arthritis of first metatarsophalangeal (MTP) joint of right foot: Status: Chronic (2) Arthritis of right midfoot: Status: Chronic Discharge Plan Disposition Patient Disposition: Home Condition: Good Discharge Details Reason For Visit: Right Midfoot Arthritis Admit Date/Time: 02/12/23 12:47 Admit Provider: Delvin Peña Attending Provider: Delvin Peña Primary Care Provider: Yamile De Leon Hospital Course Hospital Course: Jenae was admitted to the medical/surgical floor following the procedure. The surgery was tolerated well without any notable medical, surgical, or anesthetic complications. Mobilization began postoperatively. She was voiding spontaneously. Vitals were stable. No acute medical issues. Pain was controlled on oral regimen. Home Meds and New Rx's Prescriptions: New aspirin 81 mg tablet,delayed release (DR/EC) 81 mg PO BID Qty: 30 0RF oxycodone 5 mg tablet 5 mg PO Q4H PRN (Reason: pain) Qty: 12 0RF [facility] See Dose Instructions .ROUTE .MEDSUPPLY Qty: 1 0RF Dose Instruction: As directed Rx Instructions: As directed; rolling walker with seat & hand brakes; Ht= 60in estradiol [Vagifem] 10 mcg tablet 10 mcg vaginal DAILY 14 Days Qty: 24 4RF Rx Instructions: use one tab in vagina daily at bedtime for 2 weeks then twice weekly nystatin 100,000 unit/gram powder 1 applic topical TID Qty: 60 0RF ascorbate calcium (vitamin C) 500 mg tablet 500 mg PO DAILY All Day Allergy (cetirizine) 10 mg capsule 10 mg PO DAILY Qty: 30 0RF phenazopyridine [Pyridium] 100 mg tablet 100 mg PO TID PRN (Reason: pain) Qty: 6 0RF pantoprazole [Protonix] 40 mg tablet,delayed release (DR/EC) 20 mg PO DAILY Ozempic 0.25 mg or 0.5 mg (2 mg/3 mL) pen injector 0.25 mg subcut QWEEK Rx Instructions: for 4 weeks cholecalciferol (vitamin D3) 25 mcg (1,000 unit) capsule 25 mcg PO DAILY biotin 5 mg capsule 5 mg PO DAILY doxepin 10 mg capsule 10 mg PO QHS budesonide-formoterol [Symbicort] 80-4.5 mcg/actuation HFA aerosol inhaler 2 puff inhalation BID loperamide 2 mg capsule 2 mg PO Q6H PRN Sarna Original 0.5-0.5 % lotion 1 applic topical BID-QID PRN mupirocin 2 % ointment 1 applic topical BID venlafaxine 75 mg capsule,extended release 24hr 75 mg PO DAILY famotidine [Acid Pipe Stem Sawyer (famotidine)] 20 mg tablet 20 mg PO QHS omeprazole 20 mg capsule,delayed release(DR/EC) 20 mg PO DAILY baclofen 10 mg tablet 10 mg PO TID amlodipine 2.5 mg tablet 2.5 mg PO DAILY triamcinolone acetonide 0.1 % cream 1 applic topical BID fluticasone propionate 50 mcg/actuation spray,suspension 1 spray intranasal DAILY Rx Instructions: administer into each nostril losartan 50 mg tablet 100 mg PO DAILY albuterol sulfate 90 mcg/actuation HFA aerosol inhaler 2 inh Inhalation Q4H PRN zolpidem 10 mg Tablet 10 mg PO QHS PRN montelukast 10 mg Tablet 10 mg PO DAILY insulin glargine [Basaglar KwikPen U-100 Insulin] 100 unit/mL (3 mL) insulin pen 5 unit SUBCUT QAM epinephrine [EpiPen 2-Leonidas] 0.3 MG/0.3 ML auto-injector 1 dis.syr .Route DIRECTED Patient Comments: 04/13/17 pt did not mention taking this med, this updated med list came after pt left DCW simvastatin 20 mg tablet 40 mg PO QPM ondansetron HCl [Zofran] 4 mg tablet 4 mg PO QID PRN (Reason: nausea and vomiting) Qty: 6 0RF ipratropium-albuterol 0.5 mg-3 mg(2.5 mg base)/3 mL Solution For Nebulization 3 ml UPD Q6H PRN PRNQty: 0 0RF Nicotrol 10 mg Cartridge 10 mg Inhalation Q2H PRN PRNQty: 0 0RF docusate sodium [Colace] 100 mg Capsule 100 mg PO BID Qty: 0 0RF meloxicam 15 mg tablet 15 mg PO DAILY Qty: 30 0RF acetaminophen [Tylenol Extra Strength] 500 mg tablet 500 mg PO Q6H PRNQty: 90 0RF Discontinued tramadol 50 mg tablet 50 mg PO TID PRN Discharge Instructions Additional Instructions: Midfoot Fusion Discharge Instructions Activity: You are NON WEIGHT BEARING. You should keep the leg elevated as much as possible. You may wiggle your toes and move your hip and knee. Dressings: You should keep your splint clean and dry. Do NOT get wet or dirty. If you have issues with your splint, please call the office at [phone] or the hospital after hours. Medications: - You should take Tylenol and Meloxicam around the clock for baseline pain. - You have been prescribed a stronger narcotic, Oxycodone, for breakthrough pain. - You should take a Baby Aspirin (81mg) twice a day for blood clot prevention. Follow-up: 2 weeks Referrals: Delvin Peña MD [ [facility] STAFF PHYSICIAN] - Activity:: Activity as Tolerated Equipment/Supplies:: Walker Diet:: Carb Counting Discharge Orders Discharge Orders: Discharge Order (Routine); Ordered 02/13/23 Ordered By: Delvin Peña DS: Summary Time Spent with Patient providing and/or coordinating discharge services: Less than 30 minutes Status at Discharge Functional status at discharge: uses cane/walker Overall status at discharge: patient is progressing back to baseline Mental Status: mental status grossly normal Speech and Movement: speech and movement normal Mood: congruent mood Affect: normal affect Exam Narrative Exam Narrative: Sitting up in hospital bed. No acute distress. Alert and orient x3. Right lower extremity is in a splint. She is able to demonstrate some flexion extension of the toes. Cap refill less than 3 seconds. Psych Mental Status: mental status grossly normal Speech and Movement: speech and movement normal Mood: congruent mood Affect: normal affect DS: Data Vitals/I&O Vitals and I&O: Vital Signs Temperature 34.3 C L 02/13/23 07:14 Temperature Source Tympanic 02/13/23 07:14 Pulse 78 02/13/23 07:14 Pulse Rhythm Regular 02/13/23 02:03 Respiratory Rate 18 02/13/23 07:14 Respiratory Effort Normal 02/13/23 02:03 Respiratory Depth Normal 02/13/23 02:03 Respiratory Pattern Normal 02/13/23 02:03 Blood Pressure 170/70 H 02/13/23 07:14 Pulse Oximetry 97 02/13/23 07:14 Respiratory End-tidal CO2 36 02/12/23 16:33 Oxygen Delivery Method Room Air 02/13/23 07:14 Oxygen Flow Rate 0 02/13/23 07:14 Pain Level 2 02/13/23 07:14 Comment bp called over radio 02/13/23 07:14 Intake & Output 02/12/23 02/12/23 02/13/23 11:59 23:59 11:59 Intake Total 1170 / 1170 Output Total 700 / 700 800 / 800 Balance 470 / 470 -800 / -800 Weight 74.7 kg Intake: IV 1070 / 1070 Oral 100 / 100 Output: Urine 500 / 500 800 / 800 Emesis 100 / 100 Estimated Blood Loss 100 / 100 Other: Urine Color Yellow Yellow Urine Appearance Clear Clear Urine Odor Normal Normal Emesis Description None Voiding Methods Bedside Commode Toilet [facility] All Active Problems 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) Arthritis of left midfoot (Acute) Arthritis of right midfoot (Chronic) Visit for wound check (Acute) Prurigo nodularis (Acute) Skin lesion of breast (Acute) Breast lesion (Acute) Obstructive sleep apnea (adult) (pediatric) (Acute 09/12/13) Tobacco use disorder (Acute 05/09/13) COPD with acute exacerbation (Acute) GI bleed due to NSAIDs (Acute) LORRI (obstructive sleep apnea) (Chronic) Tobacco abuse (Acute) IDDM (insulin dependent diabetes mellitus) (Chronic) Medical History Acquired deviated nasal septum (09/12/13) MANUEL (acute kidney injury) Allergic rhinitis (09/26/13) Ambulatory dysfunction Arthritis of left acromioclavicular joint (01/05/17) Asthma CAP (community acquired pneumonia) Cephalalgia (05/09/13) Chronic low back pain with right-sided sciatica Chronic pain Closed head injury Depression Diarrhea Dislocation of tarsometatarsal joint of right foot Dry skin DVT prophylaxis Fibromyalgia Foot fracture, left Foot fracture, right Generalized anxiety disorder GERD (gastroesophageal reflux disease) Headache Heel pain, bilateral Hematuria Hyperlipidemia Hypertension Hypertrophy of nasal turbinates (09/12/13) Hypotension pt. stated this is related to her medication, and her BP fluctuates Impingement syndrome, shoulder, left Lateral epicondylitis of right elbow Long-term insulin use Lumbar back pain Lung nodule Lymphocytic colitis (11/06/17) Macrocytic anemia Macrocytosis Menopause syndrome Narcotic drug use pt. denies this Neuropathy of right lower extremity Nonhealing surgical wound Obesity Obstructive sleep apnea CPAP Occult blood positive stool Osteoarthritis of right knee Postnasal drip (05/09/13) Rhinitis (09/12/13) Right lumbosacral radiculopathy Sepsis Skin rash Tendinitis of left rotator cuff (01/05/17) Tendinitis of right rotator cuff Tobacco use Traumatic arthritis of right foot Twitching Unwitnessed fall Urinary frequency Surgical History Colonoscopy - MAC (11/06/17) H/O carpal tunnel repair Bilateral H/O elbow surgery H/O thumb surgery Bilateral H/O: hysterectomy History of total right knee replacement Hx of foot surgery bilateral Painful orthopaedic hardware Right foot s/p removal 03/08/2019 S/P arthroscopy of left shoulder 03/2017 S/P left knee arthroscopy S/P right knee arthroscopy ~2011 Family History Mother Diabetes Other Fibromyalgia Social History Smoking/Tobacco Use Status: Current every day Tobacco Type: cigarettes Smoking risk assessment performed?: Yes Alcohol Intake: former Drug use: Never Substance use type: does not use Household members: spouse Housing: house Number of Children: 1 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
[2023-02-13] MEDS: Losartan 50 MG TAB 100 MG PO (08:24)
[2023-02-13] MEDS: Venlafaxine 75 MG CAPCR PO (08:24)
[2023-02-13] MEDS: Acetaminophen 500 MG TAB 1000 MG PO (08:24)
[2023-02-13] MEDS: amLODIPine 2.5 MG TAB PO (08:24)
[2023-02-13] MEDS: Baclofen 10 MG TAB PO (08:24)
[2023-02-13] MEDS: Aspirin E.C. 81 MG TABEC PO (08:25)
[2023-02-13] MEDS: Montelukast 10 MG TAB PO (08:25)
[2023-02-13] MEDS: Insulin Glargine 300 UNITS/3 ML PEN SC (08:25)
== END 2023-02-13 10:31 | disposition home or self-care (01) ==
LOC: MS 16:52
PROVIDERS: Admitting Provider Student in an Organized Health Care Education/Training Program; PCP Nurse Practitioner Family; Visit Provider Student in an Organized Health Care Education/Training Program
PROC: (CPT 28740; principal; 2023-02-12 12:00)
DX: M19.171 Post-traumatic osteoarthritis, right ankle and foot (principal); E11.9 Type 2 diabetes mellitus without complications; F17.210 Nicotine dependence, cigarettes, uncomplicated; J44.9 Chronic obstructive pulmonary disease, unspecified; G47.33 Obstructive sleep apnea (adult) (pediatric); Z79.4 Long term (current) use of insulin
CPT/HCPCS: 28730; 73620; G0378; J0690; J1100; J1170; J1885; J2001; J2250; J2405

== ENCOUNTER 2023-02-23 13:57 | Outpatient (CLI) | payer MEDICARE, MEDICAID, SELFPAY ==
--- NOTE | 2023-02-23 13:45 | DI.RAD_ITS ---
Exam(s) XR FOOT RT COMPLETE EXAM: XR FOOT RT COMPLETE CLINICAL HISTORY: right foot surgery. TECHNIQUE: 2D digital imaging was performed. COMPARISON: CR XR FOOT LT COMPLETE from 12/22/2022 CR XR FOOT RT COMPLETE from 12/22/2022 FINDINGS: 3 views Compared to 12/22/2022 there is been surgery at the level of the 1st 3 tarsometatarsal Lisfranc joint s with placement fusion plates across the 1st 3 tarsometatarsal joints supported by multiple screws. There also independent screws at these articulations. There is overlying soft tissue swelling. No evidence of obvious hardware loosening nor hardware fracture. No evidence of osteomyelitis. Advanced degenerative changes are noted in the great toe metatarsophalangeal joint. IMPRESSION: Recently placed hardware at the level the 1st 3 tarsometatarsal joints. Overlying soft tissue [employer] DATA REPOSITORY: RADIATION DOSE DELIVERED:
== END 2023-02-23 13:58 | disposition home or self-care (01) ==
LOC: DIORS 13:57
PROVIDERS: PCP Nurse Practitioner Family; Referring Provider Nurse Practitioner Family; Visit Provider Physician Assistant
DX: M19.071 Primary osteoarthritis, right ankle and foot (principal); Z47.89 Encounter for other orthopedic aftercare
CPT/HCPCS: 73630

== ENCOUNTER 2023-03-23 14:00 | Outpatient (CLI) | payer MEDICARE, MEDICAID, SELFPAY ==
--- NOTE | 2023-03-23 13:45 | DI.RAD_ITS ---
Exam(s) XR FOOT RT COMPLETE EXAM: XR FOOT RT COMPLETE CLINICAL HISTORY: S/P METATARSAL FUSION. TECHNIQUE: 2D digital imaging was performed. Three views. COMPARISON: CR XR FOOT RT COMPLETE from 02/23/2023 FINDINGS: BONES: Bones appear osteopenic. No acute fracture is present. No bony destructive lesion is seen. N o change in hardware spanning the 1st through 3rd tarsal metatarsal joints. JOINTS: No dislocation present. Advanced degenerative changes at 1st tarsal metatarsal joint. SOFT TISSUE: Normal. IMPRESSION: Stable postsurgical changes. DATA REPOSITORY: RADIATION DOSE DELIVERED:
== END 2023-03-23 14:01 | disposition home or self-care (01) ==
LOC: DIORS 14:00
PROVIDERS: PCP Nurse Practitioner Family; Referring Provider Nurse Practitioner Family; Visit Provider Student in an Organized Health Care Education/Training Program
DX: Z48.89 Encounter for other specified surgical aftercare (principal); T81.89XS Other complications of procedures, not elsewhere classified, sequela; M19.071 Primary osteoarthritis, right ankle and foot
CPT/HCPCS: 73630

== ENCOUNTER 2023-03-25 11:58 | Day surgery (SDC) | payer MEDICARE, MEDICAID, SELFPAY ==
[2023-03-25 12:05] VITALS: BP 134/79; PULSE 85; RESP 18; TEMP 36.4; O2SAT 97
[2023-03-25] MEDS: Lactated Ringers 1,000 ML 80 ML IV (12:40)
--- NOTE | 2023-03-25 13:02 | W.ANESPRE ---
General Info Date of Service Date Performed: 03/25/23 Height: 5 ft 1.5 in Weight: 72.7 kg Body Mass Index (BMI): 29.7 Surgical Procedure: Operation Date: 03/25/23 14:25 Proposed Procedure Side Surgeon p I&D Foot & Secondary Wound Closure Right Delvin Peña MD Meds Allergies and Home Medications Allergies Allergy/AdvReac Type Severity Reaction Status Date / Time adhesive tape Allergy Intermediate Hives Verified 03/25/23 12:24 venom-honey bee Allergy Intermediate severe Verified 03/25/23 12:24 local reaction venom-wasp Allergy Intermediate severe Verified 03/25/23 12:24 local reaction doxycycline Allergy Mild Verified 03/25/23 12:24 Sulfa (Sulfonamide Allergy Mild Skin Rash Verified 03/25/23 12:24 Antibiotics) gabapentin AdvReac Unknown Other (See Verified 03/25/23 12:24 Comment) Antibiotics AdvReac Mild Other (See Uncoded 03/25/23 12:24 Comment) Home Medication Medication Instructions Recorded epinephrine 0.3 mg/0.3 mL 1 dis.syr .Route DIRECTED 04/13/17 injection, auto-injector (EpiPen 2-Leonidas) walker #1 ea 04/29/18 albuterol sulfate 90 mcg/actuation 2 inh inhalation Q4H PRN 06/14/18 aerosol inhaler ondansetron HCl 4 mg tablet 4 mg PO QID PRN nausea and 08/22/18 (Zofran) vomiting #6 tabs docusate sodium 100 mg capsule 100 mg PO BID #0 caps 09/14/18 (Colace) ipratropium 0.5 mg-albuterol 3 mg 3 ml UPD Q6H PRN PRN #0 mL 09/14/18 (2.5 mg base)/3 mL nebulization soln nicotine 10 mg inhalation 10 mg inhalation Q2H PRN PRN #0 ea 09/14/18 cartridge (Nicotrol) montelukast 10 mg tablet 10 mg PO DAILY 03/09/19 zolpidem 10 mg tablet 10 mg PO QHS PRN 03/09/19 ascorbate calcium (vitamin C) 500 500 mg PO DAILY 05/16/19 mg tablet estradiol 10 mcg vaginal tablet 10 mcg vaginal DAILY 2 weeks #24 06/19/20 (Vagifem) tabs insulin glargine 100 unit/mL (3 5 unit subcut QAM 09/21/20 mL) subcutaneous pen ([place] Alisha U-100 Insulin) simvastatin 20 mg tablet 40 mg PO QPM 10/11/20 amlodipine 2.5 mg tablet 2.5 mg PO DAILY 05/31/21 baclofen 10 mg tablet 10 mg PO TID 05/31/21 biotin 5 mg capsule 5 mg PO DAILY 05/31/21 budesonide-formoterol HFA 80 2 puff inhalation BID 05/31/21 mcg-4.5 mcg/actuation aerosol inhaler (Symbicort) cholecalciferol (vitamin D3) 25 25 mcg PO DAILY 05/31/21 mcg (1,000 unit) capsule doxepin 10 mg capsule 10 mg PO QHS 05/31/21 famotidine 20 mg tablet (Acid 20 mg PO QHS 05/31/21 Project Scheduler (famotidine)) fluticasone propionate 50 1 spray intranasal DAILY 05/31/21 mcg/actuation nasal spray,suspension loperamide 2 mg capsule 2 mg PO Q6H PRN 05/31/21 omeprazole 20 mg capsule,delayed 20 mg PO DAILY 05/31/21 release venlafaxine 75 mg capsule,extended 75 mg PO DAILY 05/31/21 release 24 hr losartan 50 mg tablet 100 mg PO DAILY 03/20/22 semaglutide 0.25 mg or 0.5 mg (2 0.25 mg subcut QWEEK 01/30/23 mg/3 mL) subcutaneous pen injector (Ozempic) acetaminophen 500 mg tablet 500 mg PO Q6H PRN #90 tabs 02/13/23 (Tylenol Extra Strength) meloxicam 15 mg tablet 15 mg PO DAILY #30 tabs 02/13/23 KNEE SCOOTER #1 ea 02/23/23 Current Visit Medications: Current Medications Generic Name Dose Route Start Last Admin Trade Name Freq PRN Reason Stop Dose Admin Ringer's Solution 1,000 mls @ 80 mls/hr 03/25/23 06:00 03/25/23 12:40 IV 04/23/23 23:59 80 mls/hr INFUSION DAYANA Administration Cefazolin Sodium/Dextrose 2 gm in 50 mls @ 100 mls/hr 03/25/23 06:00 Ancef Duplex IVPB 04/23/23 23:59 PREOP DAYANA IV Miscellaneous Supplies 1 each 03/25/23 06:00 Iv Access IV 04/23/23 23:59 DIRECTED DAYANA Sodium Chloride 0 ml 03/25/23 06:00 Normal Saline Flush 10 Ml Syr IV 04/23/23 23:59 PRN PRN Sodium Chloride 0 ml 03/25/23 06:00 Normal Saline 10 Ml Vial IJ 04/23/23 23:59 DIRECTED PRN Sterile Water 0 ml 03/25/23 06:00 Water,Injection,Sterile 10 Ml Vial IJ 04/23/23 23:59 DIRECTED PRN PFSH Active Problems Active Problems: Problem Status Onset Code Arthritis of first metatarsophalangeal (MTP) joint of right foot M19.071 Arthritis of left midfoot M19.072 Arthritis of right midfoot M19.071 Visit for wound check Z51.89 Prurigo nodularis L28.1 Skin lesion of breast L98.8 Breast lesion N64.9 Nonhealing surgical wound T81.89XA IDDM (insulin dependent diabetes mellitus) E11.9, Z79.4 Tobacco abuse Z72.0 LORRI (obstructive sleep apnea) G47.33 Encephalopathy acute G93.40 GI bleed due to NSAIDs K92.2, T39.395A COPD with acute exacerbation J44.1 Tobacco use disorder 05/09/13 F17.200 Obstructive sleep apnea (adult) (pediatric) 09/12/13 G47.33 Medical History Medical History Traumatic arthritis of right foot Lateral epicondylitis of right elbow Unwitnessed fall Closed head injury Twitching Dislocation of tarsometatarsal joint of right foot Occult blood positive stool DVT prophylaxis MANUEL (acute kidney injury) Macrocytosis Lung nodule Foot fracture, left Foot fracture, right Ambulatory dysfunction Macrocytic anemia Sepsis CAP (community acquired pneumonia) Osteoarthritis of right knee Hypotension pt. stated this is related to her medication, and her BP fluctuates Chronic low back pain with right-sided sciatica Right lumbosacral radiculopathy Neuropathy of right lower extremity Tendinitis of right rotator cuff Rhinitis (09/12/13) Tendinitis of left rotator cuff (01/05/17) Postnasal drip (05/09/13) Lymphocytic colitis (11/06/17) Hypertrophy of nasal turbinates (09/12/13) Cephalalgia (05/09/13) Arthritis of left acromioclavicular joint (01/05/17) Allergic rhinitis (09/26/13) Acquired deviated nasal septum (09/12/13) Asthma Obesity Hypertension GERD (gastroesophageal reflux disease) Tobacco use Lumbar back pain Menopause syndrome Hyperlipidemia Headache Heel pain, bilateral Fibromyalgia Skin rash Diarrhea Depression pt. denies Urinary frequency Dry skin Chronic pain Narcotic drug use pt. denies this Hematuria Impingement syndrome, shoulder, left Long-term insulin use Generalized anxiety disorder Obstructive sleep apnea CPAP Surgical History Surgical History History of total right knee replacement Hx of foot surgery bilateral Painful orthopaedic hardware Right foot s/p removal 03/08/2019 H/O thumb surgery Bilateral H/O carpal tunnel repair Bilateral H/O elbow surgery S/P left knee arthroscopy S/P right knee arthroscopy ~2011 H/O: hysterectomy S/P arthroscopy of left shoulder 03/2017 Colonoscopy - MAC (11/06/17) Tobacco Smoking/Tobacco Use Status: Current every day Tobacco Type: cigarettes Smoking cigarettes per day: 3 Alcohol Alcohol Intake: former Substance Use Substance use: Never Substance use type: does not use Vital Signs and Lab Results Vital Signs Most Recent Vital Signs in EMR: Most Recent Vital Signs Temp Pulse Resp BP Pulse Ox 36.4 C L 85 18 134/79 97 03/25/23 12:05 03/25/23 12:05 03/25/23 12:05 03/25/23 12:05 03/25/23 12:05 Lab Results Blood Type / Crossmatch: No Data to Display Complete Blood Count: No Data to Display Complete Metabolic Panel: No Data to Display Liver Function Panel: No Data to Display Coagulation Panel: No Data to Display Cardiac Panel: No Data to Display Arterial Blood Gas: No Data to Display Venous Blood Gas: No Data to Display Pancreas Panel: No Data to Display Thyroid Panel: No Data to Display Infectious Disease: No Data to Display Blood Cultures: No Data to Display Toxicology Panel: No Data to Display Imaging and Studies Imaging and Studies Study information below may be from another EMR and interpreted by another provider. Please see original notes in EMR for more complete details. Echocardiogram Summary: 11/14: LVEF 55%, trace AR. RVSP 26 mmhg. Carotid Artery Summary:: Date: 09/12/18 IMPRESSION: No significant internal carotid artery stenosis or plaque. Anesthesia Assessment and Plan Anesthesia History Personal History: No History of Anesthesia Complications Family History: No Family History of Anesthesia Complications Exercise Tolerance Exercise Tolerance: Metabolic Equivalents>4 Pertinent Negatives Pertinent Negatives: No Symptoms of GERD and No Major Cardiovascular Symptoms or Complaints Cardiac & Pulmonary Exam Cardiac Exam: Normal S1/S2 Heart Sounds Pulmonary Exam: Clear Bilateral Breath Sounds Implantable Cardiac Device Does patient have a Pacemaker or an ICD?: No Airway Exam Known Difficult Airway: No Mallampati Class: 2 Mouth Opening: Normal (> 3cm) Thyromental Distance: Greater than 3 cm Neck Range of Motion: Full ROM Neck Circumference: Normal Teeth Condition: Removable Dentures/Plates Upper ASA Classification ASA Score: ASA 3 Emergency Case?: No NPO Status NPO Status: NPO Clears >2 hours, Solids >8 hours Anesthesia Plan Resuscitation Status: Full Code Anesthesia Technique: MAC Anesthesia Airway Planned: Natural Airway Monitors Used: Standard Monitors
[2023-03-25 13:03] VITALS: BMI 29.7
--- NOTE | 2023-03-25 14:54 | W.PM.DSUDISC ---
Date of service: 03/25/23 Time of Service: 14:56 Discharge Plan Disposition Patient Disposition: Home Condition: Good Discharge Details Reason For Visit: Wound Closure R foot Attending Provider: Delvin Peña Primary Care Provider: Yamile De Leon Home Meds and New Rx's Prescriptions: New acetaminophen 500 mg tablet 1,000 mg PO TID Qty: 90 0RF ibuprofen 600 mg tablet 600 mg PO TID PRN (Reason: pain) Qty: 90 0RF Continued (DME) walker misc See Dose Instructions .ROUTE .MEDSUPPLY Qty: 1 0RF Dose Instruction: As directed Rx Instructions: As directed; rolling walker with seat & hand brakes; Ht= 60in estradiol [Vagifem] 10 mcg tablet 10 mcg vaginal DAILY 14 Days Qty: 24 4RF Rx Instructions: use one tab in vagina daily at bedtime for 2 weeks then twice weekly (DME) KNEE SCOOTER See Rx Instructions .Route .MEDSUPPLY Qty: 1 0RF Rx Instructions: As directed ascorbate calcium (vitamin C) 500 mg tablet 500 mg PO DAILY Ozempic 0.25 mg or 0.5 mg (2 mg/3 mL) pen injector 0.25 mg subcut QWEEK Rx Instructions: for 4 weeks cholecalciferol (vitamin D3) 25 mcg (1,000 unit) capsule 25 mcg PO DAILY biotin 5 mg capsule 5 mg PO DAILY doxepin 10 mg capsule 10 mg PO QHS budesonide-formoterol [Symbicort] 80-4.5 mcg/actuation HFA aerosol inhaler 2 puff inhalation BID loperamide 2 mg capsule 2 mg PO Q6H PRN venlafaxine 75 mg capsule,extended release 24hr 75 mg PO DAILY famotidine [Acid Chip Loft Worker (famotidine)] 20 mg tablet 20 mg PO QHS omeprazole 20 mg capsule,delayed release(DR/EC) 20 mg PO DAILY baclofen 10 mg tablet 10 mg PO TID amlodipine 2.5 mg tablet 2.5 mg PO DAILY fluticasone propionate 50 mcg/actuation spray,suspension 1 spray intranasal DAILY Rx Instructions: administer into each nostril losartan 50 mg tablet 100 mg PO DAILY albuterol sulfate 90 mcg/actuation HFA aerosol inhaler 2 inh Inhalation Q4H PRN zolpidem 10 mg Tablet 10 mg PO QHS PRN montelukast 10 mg Tablet 10 mg PO DAILY insulin glargine [Basaglar KwikPen U-100 Insulin] 100 unit/mL (3 mL) insulin pen 5 unit SUBCUT QAM epinephrine [EpiPen 2-Leonidas] 0.3 MG/0.3 ML auto-injector 1 dis.syr .Route DIRECTED Patient Comments: 04/13/17 pt did not mention taking this med, this updated med list came after pt left DCW simvastatin 20 mg tablet 40 mg PO QPM ondansetron HCl [Zofran] 4 mg tablet 4 mg PO QID PRN (Reason: nausea and vomiting) Qty: 6 0RF ipratropium-albuterol 0.5 mg-3 mg(2.5 mg base)/3 mL Solution For Nebulization 3 ml UPD Q6H PRN PRNQty: 0 0RF Nicotrol 10 mg Cartridge 10 mg Inhalation Q2H PRN PRNQty: 0 0RF docusate sodium [Colace] 100 mg Capsule 100 mg PO BID Qty: 0 0RF meloxicam 15 mg tablet 15 mg PO DAILY Qty: 30 0RF Discontinued acetaminophen [Tylenol Extra Strength] 500 mg tablet 500 mg PO Q6H PRNQty: 90 0RF Discharge Instructions Additional Instructions: Wound Closure Foot Discharge Instructions Activity: You may weight bear as tolerated. You should keep the leg elevated as much as possible. You may wear a regular shoe. Dressings: You should keep the initial dressing on for at least 1 week. You may shower after three days but keep the dressing dry. Medications: - You should take Tylenol and Ibuprofen around the clock for pain. Follow-up: 2 weeks Referrals: Delvin Peña MD [ [facility] STAFF PHYSICIAN] - Equipment/Supplies: Partial Weight Bearing Crutches Activity:: Activity as Tolerated Remove Dressings/Wound Care:: 72 hours Shower/Bathe:: 72 hours Diet:: As Tolerated Discharge Orders Discharge Orders: Discharge Order (Routine); Ordered 03/25/23 Ordered By: Morgan Gutierrez DS: Diagnosis Discharge Diagnosis (1) Nonhealing surgical wound: Status: Acute
[2023-03-25] MEDS: ceFAZolin 2 GM/50 ML BAG IVPB (15:15)
[2023-03-25] MEDS: Bupivacaine 0.25% Pres-Free 30 ML VIAL (15:37)
[2023-03-25] MEDS: Lidocaine 1% Multi-Dose 10 ML VIAL (15:37)
[2023-03-25] MEDS: Sodium Bicarbonate 50 MEQ/50 ML VIAL (15:37)
[2023-03-25 15:50] VITALS: BP 128/75; PULSE 71; RESP 18; TEMP 36.3; O2SAT 96
[2023-03-25 16:15] VITALS: BP 133/89; PULSE 66; RESP 16; TEMP 36.3; O2SAT 97
--- NOTE | 2023-03-25 16:26 | W.ANESPOSTOP ---
Postoperative Evaluation Date, Time and Location Date Performed: 03/25/23 Time Performed: 15:50 Patient Location: Day Surgery Unit Vital Signs Most Recent Imported Vital Signs: Most Recent Vital Signs Temp Pulse Resp BP Pulse Ox 36.3 C L 71 18 128/75 96 03/25/23 15:50 03/25/23 15:50 03/25/23 15:50 03/25/23 15:50 03/25/23 15:50 Pain Score Most Recent Pain Score: Most Recent Pain Score Pain Level 0 03/25/23 15:50 Assessment Mental Status: Awake (Alert & Oriented to Patient Baseline) Airway and Respiratory Function: Patent airway with normal (patient baseline) respiratory exam Cardiovascular Function: Hemodynamically Stable Hydration Status: Adequately Hydrated Nausea & Vomiting: No Nausea or Vomiting Pain: Pt. Denies Any Pain Peripheral Nerve Block: Patient did not receive a nerve block
--- NOTE | 2023-03-25 18:27 | W.PM.OP ---
Date of service: 03/25/23 Time of Service: 15:00 Operative Note Operative Note DATE OF PROCEDURE: 03/25/23 PRE-OP DIAGNOSIS: Left Surgical Wound Dehisence POST-OP DIAGNOSIS: same PROCEDURE: I&D and secondary wound closure - Left Foot SURGEON: Delvin Peña ANESTHESIA TYPE: MAC Refer to Anesthesia Record ESTIMATED BLOOD LOSS: 5 PATHOLOGY: none sent TOURNIQUET TIME: 0 COMPLICATIONS: None Patient was transported to: same day Patient's condition: stable Indications: Jenae is a 57-year-old who is almost 6 weeks status post left midfoot fusion. She reports be doing well but she was found to have an opening of her wound medially, likely from skin edge necrosis. There is exposed tendon bed and therefore recommended we perform I&D and closure to help cover the tendon. I discussed the surgery with her. I reviewed the risk to include bleeding, infection, pain, stiffness, damage to nerves and vessels, recurrence. Despite these risk, she elected to proceed. Findings: There is notable adherence of the skin to the deeper layers. This was elevated and the skin was mobilized. Central defect, Whitis at baseline was hard to fully close completely but was able to get skin edges together. Procedure Description: Jenae was greeted in the preoperative holding area. Her identity was confirmed the correct site was identified and marked. The consent was reviewed with the patient and signed. She was then taken back to the operating room. The right foot was placed onto a bump. MAC anesthetic was administered. Prophylactic antibiotics in the form of cefazolin were given. A timeout is performed for safe surgery. The right foot was prepped with Betadine. It was draped in a sterile fashion. The wound and proposed surgical site was then injected with a mixture of 1% lidocaine with 0.25% bupivacaine. Previous incision site was slightly open proximally and distally from the current opening. The skin and soft tissues were notably adherent. These were elevated off the deeper layer. I was able to mobilize the skin quite well except for the very central aspect of the wound. The EHL tendon was at the base of the wound appeared healthy with a thin covering of soft tissue overlying it. The wound was then debrided of any fibrous material which appeared to be unhealthy. The wound was thoroughly irrigated. I then used a 3-0 nylon in a vertical mattress position to help bring the skin edges together without tension on the skin edges themselves. This reapproximated the wound nearly completely except for the central area. 2 interrupted 4-0 nylon sutures were used to help bring these edges back together. This was dressed with a Mepilex dressing followed by an Blanco wrap. At the end the case all counts were correct. She is transferred back to day surgery unit in a stable condition.
== END 2023-03-25 16:30 | disposition home or self-care (01) ==
PROVIDERS: PCP Nurse Practitioner Family; Visit Provider Student in an Organized Health Care Education/Training Program
PROC: (CPT 13160; principal; 2023-03-25 14:15)
DX: T81.31XA Disruption of external operation (surgical) wound, not elsewhere classified, initial encounter (principal); Z98.1 Arthrodesis status; E11.9 Type 2 diabetes mellitus without complications; F17.210 Nicotine dependence, cigarettes, uncomplicated; J44.9 Chronic obstructive pulmonary disease, unspecified; G47.33 Obstructive sleep apnea (adult) (pediatric)
CPT/HCPCS: 13160; J0690; J2250; J2405; J3010

== ENCOUNTER → 2023-04-06 13:45 | Outpatient (BNVA) | payer MEDICARE, MEDICAID, SELFPAY | PROVIDERS: PCP Nurse Practitioner Family; Referring Provider Nurse Practitioner Family | DX: M19.072 Primary osteoarthritis, left ankle and foot (principal); T81.89XD Other complications of procedures, not elsewhere classified, subsequent encounter ==

== ENCOUNTER → 2023-04-23 10:29 | Outpatient (BNVA) | payer MEDICARE, MEDICAID, SELFPAY | PROVIDERS: PCP Nurse Practitioner Family; Referring Provider Nurse Practitioner Family; Visit Provider Student in an Organized Health Care Education/Training Program | DX: Z47.89 Encounter for other orthopedic aftercare (principal); M19.071 Primary osteoarthritis, right ankle and foot; T81.89XS Other complications of procedures, not elsewhere classified, sequela ==

== ENCOUNTER → 2023-04-24 10:08 | Outpatient (BNVA) | payer MEDICARE, MEDICAID, SELFPAY | PROVIDERS: PCP Nurse Practitioner Family; Referring Provider Physician Assistant; Visit Provider Physical Therapy Assistant | DX: T81.89XD Other complications of procedures, not elsewhere classified, subsequent encounter (principal) | CPT/HCPCS: 11042 ==

== ENCOUNTER → 2023-04-30 08:40 | Outpatient (BNVA) | payer MEDICARE, MEDICAID, SELFPAY | PROVIDERS: PCP Nurse Practitioner Family; Referring Provider Nurse Practitioner Family; Visit Provider Physical Therapy Assistant | DX: Z51.89 Encounter for other specified aftercare (principal); T81.89XD Other complications of procedures, not elsewhere classified, subsequent encounter | CPT/HCPCS: 99214 ==

== ENCOUNTER → 2023-05-07 14:16 | Outpatient (BNVA) | payer MEDICARE, MEDICAID, SELFPAY | PROVIDERS: PCP Nurse Practitioner Family; Referring Provider Nurse Practitioner Family; Visit Provider Physical Therapy Assistant | DX: T81.89XD Other complications of procedures, not elsewhere classified, subsequent encounter (principal) | CPT/HCPCS: 99213 ==

== ENCOUNTER → 2023-05-21 09:29 | Outpatient (BNVA) | payer MEDICARE, MEDICAID, SELFPAY | PROVIDERS: PCP Nurse Practitioner Family; Referring Provider Nurse Practitioner Family; Visit Provider Physical Therapy Assistant | DX: T81.89XD Other complications of procedures, not elsewhere classified, subsequent encounter (principal) | CPT/HCPCS: 99212 ==

== ENCOUNTER → 2023-06-18 10:23 | Outpatient (BNVA) | payer MEDICARE, MEDICAID, SELFPAY | PROVIDERS: PCP Nurse Practitioner Family; Referring Provider Nurse Practitioner Family; Visit Provider Physical Therapy Assistant | DX: S81.801D Unspecified open wound, right lower leg, subsequent encounter (principal); X58.XXXD Exposure to other specified factors, subsequent encounter | CPT/HCPCS: 99212 ==

== ENCOUNTER 2023-11-04 13:39 | Outpatient (REF) | payer MEDICARE, MEDICAID, SELFPAY ==
[2023-11-04 16:51] LABS: Hemoglobin A1C 5.9 % (<5.7)
[2023-11-04 17:12] LABS: ALT 27 U/L (14-59); AST 18 U/L (15-37); Albumin 3.9 g/dL (3.4-5.0); Alkaline Phosphatase 81 U/L (46-116); Anion Gap 10.5 mmol/L (3-11); BUN 17 mg/dL (7-18); Bilirubin, Total 0.3 mg/dL (0.2-1.0); CO2 24.5 mmol/L (21.0-32.0); Calcium 8.9 mg/dL (8.5-10.1); Calculated LDL 159 mg/dL (<100); Chloride 106 mmol/L (98-107); Cholesterol 239 mg/dL (<200); Estimated GFR 66.12 (mL/min/1.73m2); Glucose 112 mg/dL (74-106); HDL Cholesterol 47 mg/dL (40-60); Potassium 3.6 mmol/L (3.5-5.1); Sodium 141 mmol/L (136-145); Total Protein 7.3 g/dL (6.4-8.2); Triglyceride 169 mg/dL (<150)
== END 2023-11-04 13:40 | disposition home or self-care (01) ==
LOC: NCHCN 13:39
PROVIDERS: PCP Nurse Practitioner Family; Visit Provider Physician Assistant Medical
DX: E11.9 Type 2 diabetes mellitus without complications (principal); E78.5 Hyperlipidemia, unspecified
CPT/HCPCS: 80053; 80061; 83036

== ENCOUNTER 2023-11-13 16:54 | Outpatient (REF) | payer MEDICARE, MEDICAID, SELFPAY | END 2023-11-13 16:55 | disposition home or self-care (01) | LOC: LBN 16:54 | PROVIDERS: PCP Nurse Practitioner Family; Visit Provider Nurse Practitioner Family | DX: K04.7 Periapical abscess without sinus (principal) | CPT/HCPCS: 87077; 87070; 87205 ==

== ENCOUNTER 2023-12-21 01:40 | Outpatient (RCR) | payer MEDICARE, MEDICAID, SELFPAY ==
[2023-11-30] MEDS: Normal Saline Flush 10 ML SYR IVP (14:54)
[2023-11-30 16:21] LABS: Abs Immature Grans 0.04 10^3/uL (0.0-0.06); Absolute Basophil Count 0.03 10^3/uL (0.0-0.2); Absolute Eosinophil Count 0.19 10^3/uL (0.0-0.7); Absolute Lymphocyte Count 3.12 10^3/uL (1.2-3.4); Absolute Monocyte Count 0.71 10^3/uL (0.1-0.8); Absolute Neutrophil Count 5.59 10^3/uL (1.2-6.7); Basophils % 0.3 %; HCT 39.5 % (36.0-46.0); HGB 13.2 g/dL (11.2-15.7); Immature Grans % 0.4 %; Lymphocytes % 32.2 %; MCHC 33.4 % (32.0-36.0); MCV 96 fL (80-95); MPV 10.8 fL (8.0-11.0); Monocytes % 7.3 %; Neutrophils % 57.8 %; Platelet Count 287 10^3/uL (130-400); RBC 4.12 10^6/uL (3.93-5.22); RDW 13.1 % (11.7-14.6); RDW-SD 45.9 fL; WBC 9.68 10^3/uL (4.4-10.8)
[2023-11-30 16:34] LABS: ALT 28 U/L (14-59); AST 19 U/L (15-37); Albumin 3.6 g/dL (3.4-5.0); Alkaline Phosphatase 82 U/L (46-116); Anion Gap 9.8 mmol/L (3-11); BUN 14 mg/dL (7-18); Bilirubin, Total 0.32 mg/dL (0.2-1.0); C-Reactive Protein 1.02 mg/dL (<or=0.5); CO2 23.2 mmol/L (21.0-32.0); CREATININE 0.8 mg/dL (0.55-1.02); Calcium 8.7 mg/dL (8.5-10.1); Chloride 110 mmol/L (98-107); Estimated GFR 86.42 (mL/min/1.73m2); Glucose 95 mg/dL (74-106); Potassium 3.2 mmol/L (3.5-5.1); Sodium 143 mmol/L (136-145); Total Protein 7.2 g/dL (6.4-8.2)
[2023-12-07] MEDS: Normal Saline Flush 10 ML SYR IVP (14:48)
[2023-12-07 14:55] LABS: Abs Immature Grans 0.04 10^3/uL (0.0-0.06); Absolute Basophil Count 0.05 10^3/uL (0.0-0.2); Absolute Eosinophil Count 0.27 10^3/uL (0.0-0.7); Absolute Lymphocyte Count 3.28 10^3/uL (1.2-3.4); Absolute Monocyte Count 0.71 10^3/uL (0.1-0.8); Absolute Neutrophil Count 5.25 10^3/uL (1.2-6.7); Basophils % 0.5 %; Eosinophils % 2.8 %; HCT 37.9 % (36.0-46.0); HGB 12.8 g/dL (11.2-15.7); Immature Grans % 0.4 %; Lymphocytes % 34.2 %; MCH 32.4 pg (27.0-33.0); MCHC 33.8 % (32.0-36.0); MCV 96 fL (80-95); Monocytes % 7.4 %; Neutrophils % 54.7 %; Platelet Count 300 10^3/uL (130-400); RBC 3.95 10^6/uL (3.93-5.22); RDW 13.6 % (11.7-14.6); RDW-SD 47.7 fL
[2023-12-07 15:17] LABS: ALT 17 U/L (14-59); AST 12 U/L (15-37); Albumin 3.4 g/dL (3.4-5.0); Alkaline Phosphatase 74 U/L (46-116); BUN 11 mg/dL (7-18); Bilirubin, Total 0.33 mg/dL (0.2-1.0); C-Reactive Protein 3.13 mg/dL (<or=0.5); CREATININE 0.9 mg/dL (0.55-1.02); Calcium 9.1 mg/dL (8.5-10.1); Chloride 112 mmol/L (98-107); Estimated GFR 75.03 (mL/min/1.73m2); Glucose 102 mg/dL (74-106); Potassium 3.6 mmol/L (3.5-5.1); Sodium 145 mmol/L (136-145); Total Protein 6.7 g/dL (6.4-8.2)
[2023-12-14] MEDS: Normal Saline Flush 10 ML SYR IVP (13:00)
[2023-12-14 13:15] LABS: Abs Immature Grans 0.02 10^3/uL (0.0-0.06); Absolute Basophil Count 0.03 10^3/uL (0.0-0.2); Absolute Eosinophil Count 0.45 10^3/uL (0.0-0.7); Absolute Lymphocyte Count 2.25 10^3/uL (1.2-3.4); Absolute Monocyte Count 0.76 10^3/uL (0.1-0.8); Absolute Neutrophil Count 5.36 10^3/uL (1.2-6.7); Basophils % 0.3 %; Eosinophils % 5.1 %; HCT 38.7 % (36.0-46.0); HGB 12.9 g/dL (11.2-15.7); Immature Grans % 0.2 %; Lymphocytes % 25.4 %; MCH 31.9 pg (27.0-33.0); MCHC 33.3 % (32.0-36.0); MCV 96 fL (80-95); MPV 10.5 fL (8.0-11.0); Monocytes % 8.6 %; Neutrophils % 60.4 %; Platelet Count 280 10^3/uL (130-400); RBC 4.05 10^6/uL (3.93-5.22); RDW 13.3 % (11.7-14.6); RDW-SD 47.7 fL; WBC 8.87 10^3/uL (4.4-10.8)
[2023-12-14 13:30] LABS: ALT 19 U/L (14-59); AST 9 U/L (15-37); Albumin 3.6 g/dL (3.4-5.0); Alkaline Phosphatase 79 U/L (46-116); Anion Gap 10.6 mmol/L (3-11); BUN 15 mg/dL (7-18); Bilirubin, Total 0.21 mg/dL (0.2-1.0); CO2 24.4 mmol/L (21.0-32.0); CREATININE 0.8 mg/dL (0.55-1.02); Calcium 9.1 mg/dL (8.5-10.1); Chloride 110 mmol/L (98-107); Estimated GFR 86.42 (mL/min/1.73m2); Glucose 191 mg/dL (74-106); Potassium 3.1 mmol/L (3.5-5.1); Sodium 145 mmol/L (136-145); Total Protein 6.8 g/dL (6.4-8.2)
[2023-12-14 13:31] LABS: C-Reactive Protein < 0.50 mg/dL (<or=0.5)
[2023-12-21] MEDS: Normal Saline Flush 10 ML SYR IVP (12:59)
[2023-12-21 13:25] LABS: Abs Immature Grans 0.03 10^3/uL (0.0-0.06); Absolute Basophil Count 0.05 10^3/uL (0.0-0.2); Absolute Eosinophil Count 0.34 10^3/uL (0.0-0.7); Absolute Lymphocyte Count 2.93 10^3/uL (1.2-3.4); Absolute Monocyte Count 0.62 10^3/uL (0.1-0.8); Absolute Neutrophil Count 6.16 10^3/uL (1.2-6.7); Basophils % 0.5 %; Eosinophils % 3.4 %; HGB 12.2 g/dL (11.2-15.7); Immature Grans % 0.3 %; Lymphocytes % 28.9 %; MCH 31.9 pg (27.0-33.0); MCV 97 fL (80-95); MPV 10.6 fL (8.0-11.0); Monocytes % 6.1 %; Neutrophils % 60.8 %; Platelet Count 263 10^3/uL (130-400); RBC 3.82 10^6/uL (3.93-5.22); RDW 13.2 % (11.7-14.6); RDW-SD 47.4 fL; WBC 10.13 10^3/uL (4.4-10.8)
[2023-12-21 13:44] LABS: ALT 23 U/L (14-59); AST 12 U/L (15-37); Albumin 3.7 g/dL (3.4-5.0); Alkaline Phosphatase 77 U/L (46-116); Anion Gap 9.7 mmol/L (3-11); BUN 14 mg/dL (7-18); Bilirubin, Total 0.35 mg/dL (0.2-1.0); C-Reactive Protein 0.52 mg/dL (<or=0.5); CO2 26.3 mmol/L (21.0-32.0); CREATININE 0.9 mg/dL (0.55-1.02); Calcium 8.4 mg/dL (8.5-10.1); Chloride 111 mmol/L (98-107); Estimated GFR 75.03 (mL/min/1.73m2); Glucose 89 mg/dL (74-106); Potassium 3.4 mmol/L (3.5-5.1); Sodium 147 mmol/L (136-145); Total Protein 6.7 g/dL (6.4-8.2)
== END 2023-12-23 23:59 | disposition home or self-care (01) ==
LOC: INF 01:40
PROVIDERS: PCP Nurse Practitioner Family; Visit Provider Internal Medicine Addiction Medicine
DX: Z79.2 Long term (current) use of antibiotics (principal); D16.5 Benign neoplasm of lower jaw bone; Z45.2 Encounter for adjustment and management of vascular access device
CPT/HCPCS: 36592; 80053; 85025; 86140

== ENCOUNTER 2024-02-09 14:51 | Outpatient (REF) | payer MEDICARE, MEDICAID, SELFPAY ==
--- OUTSIDE RECORDS SUMMARY | 2024-02-09 14:55 | XMS_ITS | Encounter Summary ---
Author Organization [facility] Address [address] [place] [address] Care Team Providers Care Boil Off Worker Name Role Phone Unavailable Primary Care Provider Unavailabl e Encounter Details Date Type Department Care Team (Late st Contact Info) Description 10/16/2003 Results Only [facility] - Maple conversion [address] [place] [address] Doris Tay MD [address] [place], [place] [id number] Social History Tobacco Use Types Packs/Day Years Used Date Smoking Tobacco: Never Assessed Sex and Gender Information Value Date Recorded Sex Assigned at Not on file Gender Identity Not on file Sexual Orientation Not on file documented as of this encounter Plan of Treatment Not on file documented as of this encounter Procedures Procedure Name Priority Date/Time Associated Diagnosis Comments CYTOPATHOLOGY Routine 10/16/2003 0:00 EDT documented in this encounter Results * CYTOPATHOLOGY (10/16/2003 0:00 EDT) Pathology Report: CYTOPATHOLOGY REPORT Reports generated via electronic interface contain original data; however they are lacking the format of the original report. Caution should be taken when reading/interpreti ng unformatted reports. Name: ? ERICKSON LA ? Accession #: ? [id number] : ? 1965 (Age: 38) ??F ?Collect Date: ? 10/16/2003 Location: ? [facility] ? Receive Date: ? 10/18/2003 Provider: ?DORIS TAY MD Copy to: ? Specimen/Source: ?ThinPrep Pap Test, Cervix/Endocervix Last Menstrual Period: ? 10/03/03 Hormonal/Contracep tive Status: ? Yes: OrthoNovum ? SPECIMEN ADEQUACY ? Satisfactory for Evaluation - transformation zone component present GENERAL CATEGORIZATION ? Negative for Intraepithelial Lesion or Malignancy INTERPRETATION ? Shift in shala present suggestive of bacterial vaginosis. ? Document reviewed and electronically signed by: ? Tomas Palma, VALENTINA(ASCP) ? Report Date: ??10/24/2003 11:43 End of Report RO HOLLAND 10/16/2003 10/18/2003 Doris Tay MD PATHOLOGY ORDERABLES [facility] [address] [place] [address] documented in this encounter Visit Diagnoses Not on filedocumented in this encounter
--- OUTSIDE RECORDS SUMMARY | 2024-02-09 14:55 | XMS_ITS | Encounter Summary ---
Author Organization [facility] Address [address] [place] [address] Care Team Providers Care Spreading Machine Operator Name Role Phone Una Dickinson Primary Care Provider + Encounter Details Date Type Department Care Team (Late st Contact Info) Description 01/03/2021 Lab Requisition [facility] Pathology & Laboratory Medicine - [facility] [address] [place] [address] Outr Resulting Lab, Provider Social History Tobacco Use Types Packs/Day Years Used Date Smoking Tobacco: Never Assessed Interpersonal Safety Answer Date Record ed Physically Hurt Never 12/25/2019 Verbally Threaten Not on file 12/25/2019 Sex and Gender Information Value Date Recorded Sex Assigned at Not on file Gender Identity Not on file Sexual Orientation Not on file documented as of this encounter Plan of Treatment Not on file documented as of this encounter Procedures Procedure Name Priority Date/Time Associated Diagnosis Comments VARICELLA ZOSTER VIRUS MOLECULAR DETECTION, PCR Routine 01/02/2021 11:15 EDT HSV (HERPES SIMPLEX VIRUS) MOLECULAR DETECTION, PCR Routine 01/02/2021 11:15 EDT documented in this encounter Results * VARICELLA ZOSTER VIRUS MOLECULAR DETECTION, PCR (01/02/2021 11:15 EDT) VARICELLA ZOSTER VIRUS MOLECULAR DETECTION, PCR Negative Negative 01/04/2021 11:31 EDT [facility] Comment:This test was develo ped and its performance characteristics determined by [facility]. It has not been cleared or approved by the US Food and Drug Administration. FDA does not require this test to go through premarket FDA review. This test is used for clinical purposes. It should not be regarded as investigational or research. This laboratory is certified under the Clinical Laboratory Improvement Amendments (CLIA) as qualified to perform high complexity clinical laboratory testing. Swab ENTIRE BUTTOCK / Unknown 01/02/2021 11:15 EDT 01/03/2021 17:26 EDT Provider Outr Resulting Lab MICROBIOLOGY - GENERAL ORDERABLES Performing Organization Address City/[facility] Co de Phone Number [facility] [address] [place] [address] * HERPES SIMPLEX VIRUS MOLECULAR DETECTION, PCR (01/02/2021 11:15 EDT) Herpes Simplex Virus Molecular Detection 1, PCR Negative Negative 01/04/2021 11:32 EDT [facility] Herpes Simplex Virus Molecular Detection 2, PCR Negative Negative 01/04/2021 11:32 EDT [facility] Swab ENTIRE BUTTOCK / Unknown 01/02/2021 11:15 EDT 01/03/2021 17:26 EDT Provider Outr Resulting Lab MICROBIOLOGY - GENERAL ORDERABLES Performing Organization Address City/[facility] Co de Phone Number [facility] [address] [place] [address] documented in this encounter Visit Diagnoses Not on filedocumented in this encounter Care Teams Spreading Machine Operator Relationship Specialty Start Date End Date Una Dickinson PA PCP - General 11/10/17 documented as of this encounter
--- OUTSIDE RECORDS SUMMARY | 2024-02-09 14:55 | XMS_ITS | Encounter Summary ---
Author Organization [facility] Address [address] [place] [address] Care Team Providers Care Patrol Community Service Officer Name Role Phone Una Dickinson Primary Care Provider + Encounter Details Date Type Department Care Team (Late st Contact Info) Description 05/28/2022 Lab Requisition [facility] Pathology & Laboratory Medicine - [facility] [address] [place] [address] Outr Resulting Lab, Provider Social History Tobacco [...] Procedure Name Priority Date/Time Associated Diagnosis Comments ZZHN INFLUENZA A AND B, RSV PCR Routine 05/28/2022 11:00 EST documented in this encounter Results * INFLUENZA A AND B,RSV PCR (05/28/2022 11:00 EST) FLU A RNA Result (FLARES) Negative Negative 05/29/2022 22:01 EST [facility] FLU B RNA Result (FLBRES) Negative Negative 05/29/2022 22:01 EST [facility] RSV RNA Result (RSVRES) Negative Negative 05/29/2022 22:01 EST [facility] Swab ENTIRE NASOPHARYNX / Unknown 05/28/2022 11:00 EST 05/29/2022 17:48 EST Provider Outr Resulting Lab MICROBIOLOGY - GENERAL ORDERABLES [facility] [address] [place] [address] documented in this encounter Visit Diagnoses Not on filedocumented in this encounter Care Teams Patrol Community Service Officer Relationship Specialty Start Date End Date Una Dickinson PA PCP - General 11/10/17 documented as of this encounter
--- OUTSIDE RECORDS SUMMARY | 2024-02-09 14:55 | XMS_ITS | Encounter Summary ---
Author Organization [facility] Address [address] [place] [address] Care Team Providers Care Photo Booth Operator Name Role Phone Unavailable Primary Care Provider Unavailabl e Encounter Details Date Type Department Care Team (Late st Contact Info) Description 09/23/2005 Results Only [facility] - Maple conversion [address] [place] [address] Abdirashid Parmar, DO [address] [facility] [address] [place], [place] [id number] Social History Tobacco Use Types Packs/Day Years Used Date Smoking Tobacco: Never Assessed Sex and Gender Information Value Date Recorded Sex Assigned at Not on file Gender Identity Not on file Sexual Orientation Not on file documented as of this encounter Plan of Treatment Not on file documented as of this encounter Procedures Procedure Name Priority Date/Time Associated Diagnosis Comments SURGICAL PATHOLOGY Routine 09/23/2005 0:00 EDT documented in this encounter Results * SURGICAL PATHOLOGY (09/23/2005 0:00 EDT) Pathology Report: SURGICAL PATHOLOGY REPORT Reports generated via electronic interface contain original data; however they are lacking the format of the original report. Caution should be taken when reading/interpreti ng unformatted reports. Name: ? ERICKSON LA ? Accession #: ? [id number] ? : ? 1965 (Age: 40) ??F ? Collect Date: ? 09/23/2005 ? Location: ? [facility] ? Receive Date: ? 09/23/2005 ? Provider: ABDIRASHID PARMAR DO Copy to: GRADY ROSA MD ? Final Pathologic Diagnosis: A. ?Stomach, antrum, biopsy: 1. ?No specific pathologic features. B. ?Esophagus, distal, biopsy: 1. ?Mild reflux changes. 2. ?No Helicobacter-pylor i-like organisms visible on H&E. ??See comment. C. ?Esophagus, mid, biopsy: 1. ?No specific pathologic features. ?? See comment. D. ?Esophagus, upper, biopsy: ? 1. ?No specific pathologic features. Comment: ? No eosinophilic infiltrate noted in any of the esophageal biopsies. /[facility] Document reviewed and electronically signed by: JAVIER LENNON MD Report ??Date: 09/25/2005 17:29 By the signature above, the attending physician certifies that he/she has personally conducted a gross and/or microscopic examination of the described specimens and rendered or confirmed the above diagnosis. Specimen(s) Received: A. ?Bx antrum (#1) B. ?Bx distal esophagus (#2) C. ?Bx mid esophagus (#3) D. ?Bx upper esophagus (#4) Clinical History: ? Reflux, esophageal motility disorder Gross Description: ? Received in Hollande's fixative labelled Abhinav and bx antrum is a 0.5 x 0.3 x 0.2 cm fragment of soft tissue, which is entirely submitted as (A). Received in Hollande's fixative labelled Abhinav and #2 ??bx distal esophagus are two fragments of soft tissue measuring 0.4 x 0.2 x 0.2 cm and 0.4 x 0.3 x 0.2 cm, which are entirely submitted as (B). Received in Hollande's fixative labelled Abhinav and #3 ??bx mid esophagus is a 0.3 x 0.2 x 0.2 cm fragment of soft tissue, entirely submitted as (C). Received in Hollande's fixative labelled Abhinav and #4 ??bx upper esophagus is a 0.4 x 0.3 x 0.3 cm fragment of soft tissue, entirely submitted as (D). ??(Nieves Davila)/[facility] End of Report RO HOLLAND 09/23/2005 09/23/2005 15: 31 EDT Abdirashid Parmar DO PATHOLOGY ORDER MADHAVI [facility] [address] [place] [address] documented in this encounter Visit Diagnoses Not on filedocumented in this encounter
--- OUTSIDE RECORDS SUMMARY | 2024-02-09 14:55 | XMS_ITS | Encounter Summary ---
Author Organization [facility] Address [address] [place] [address] Care Team Providers Care Twine Winder Name Role Phone Carlos Hyde MD Primary Care Provider [phone] Encounter Details Date Type Department Care Team (Latest Contact Info) Description 11/06/2017 13:27 EDT - 11/06/2017 23:59 EDT Hospital Encounter [address] [address] Unknown, Provider, Discharge Disposition: Home or Self Care Social History Tobacco Use Types Packs/Day Years Used Date Smoking Tobacco: Never Assessed Sex and Gender Information Value Date Recorded Sex Assigned at Not on file Gender Identity Not on file Sexual Orientation Not on file documented as of this encounter Discharge Disposition Disposition Code Departure Means Destination Home or Self [facility] documented in this encounter Plan of Treatment Not on file documented as of this encounter Visit Diagnoses Not on filedocumented in this encounter Care Teams Twine Winder Relationship Specialty Start Date End Date Carlos Hyde MD PCP - General 03/31/15 11/09/17 documented as of this encounter
--- OUTSIDE RECORDS SUMMARY | 2024-02-09 14:55 | XMS_ITS | Encounter Summary ---
Author Organization [facility] Address [address] [place] [address] Care Team Providers Care Operations Supervisor 2Nd Shift Name Role Phone Una Dickinson Primary Care Provider + Encounter Details Date Type Department Care Team (Late st Contact Info) Description 10/05/2019 Lab Requisition [facility] Pathology & Laboratory Medicine - [facility] [address] [place] [address] Outr Resulting Lab, Provider Social History Tobacco [...] Procedure Name Priority Date/Time Associated Diagnosis Comments FECAL BACTERIAL PATHOGENS BY PCR Routine 10/04/2019 8:00 EDT documented in this encounter Results * FECAL BACTERIAL PATHOGENS BY PCR (10/04/2019 8:00 EDT) Salmonella PCR Negative Negative 10/06/2019 12:12 EDT [facility] Shigella/Enteroin vasive E. coli Negative Negative 10/06/2019 12:12 EDT [facility] HN LAB CAMPYLOBACTER PCR Negative Negative 10/06/2019 12:12 EDT [facility] Shiga Toxin PCR Negative Negative 0 12:12 EDT [facility] Feces SPECIMEN FROM RECTUM / Unknown 10/04/2019 8:00 EDT 10/05/2019 16:56 EDT Provider Outr Resulting Lab MICROBIOLOGY - GENERAL ORDERABLES [facility] [address] [place] [address] documented in this encounter Visit Diagnoses Not on filedocumented in this encounter Care Teams Operations Supervisor 2Nd Shift Relationship Specialty Start Date End Date Una Dickinson PA PCP - General 11/10/17 documented as of this encounter
--- OUTSIDE RECORDS SUMMARY | 2024-02-09 14:55 | XMS_ITS | Encounter Summary ---
Author Organization [facility] Address [address] [place] [address] Care Team Providers Care Waiter/Waitress Captain Name Role Phone Unavailable Primary Care Provider Unavailabl e Encounter Details Date Type Department Care Team (Late st Contact Info) Description 08/12/2002 Results Only [facility] - Map conversion [address] [place] [address] Unknown, Provider, Social History Tobacco Use Types Packs/Day Years Used Date Smoking Tobacco: Never Assessed Sex and Gender Information Value Date Recorded Sex Assigned at Not on file Gender Identity Not on file Sexual Orientation Not on file documented as of this encounter Plan of Treatment Not on file documented as of this encounter Procedures Procedure Name Priority Date/Time Associated Diagnosis Comments CYTOPATHOLOGY Routine 08/12/2002 0:00 EST documented in this encounter Results * CYTOPATHOLOGY (08/12/2002 0:00 EST) Pathology Report: CYTOPATHOLOGY REPORT Reports generated via electronic interface contain original data; however they are lacking the format of the original report. Caution should be taken when reading/interpreti ng unformatted reports. Name: ? ERICKSON LA ? Accession #: ? [id number] : ? 1965 (Age: 37) ??F ?Collect Date: ? 08/12/2002 Location: ? [facility] ? Receive Date: ? 2002 Provider: ?DORIS TAY MD Copy to: ? Specimen/Source: ?ThinPrep Pap Test, Cervix/Endocervix Last Menstrual Period: ? 08/01/02 ? SPECIMEN ADEQUACY ? Satisfactory for Evaluation - transformation zone component present GENERAL CATEGORIZATION ? Negative for Intraepithelial Lesion or Malignancy ? Document reviewed and electronically signed by: ? Emma Tran, SCT(ASCP) ? Report Date: ??08/18/2002 08:32 End of Report RO [facility]LLAND 08/12/2002 2002 Provider Unknown PATHOLOGY ORDERABLES [facility] [address] [place] [address] documented in this encounter Visit Diagnoses Not on filedocumented in this encounter
--- OUTSIDE RECORDS SUMMARY | 2024-02-09 14:55 | XMS_ITS | Encounter Summary ---
Author Organization [facility] Address [address] [place] [address] Care Team Providers Care Primer Boxer Name Role Phone Una Dickinson Primary Care Provider + Encounter Details Date Type Department Care Team (Late st Contact Info) Description 10/05/2019 Lab Requisition [facility] Pathology & Laboratory Medicine - [facility] [address] [place] [address] Outr Resulting Lab, Provider Social History Tobacco [...] Procedure Name Priority Date/Time Associated Diagnosis Comments GIARDIA AND CRYPTOSPORIDIUM ANTIGENS Routine 10/04/2019 8:00 EDT OVA/PARASITE EXAM Routine 10/04/2019 8:0 0 EDT documented in this encounter Results * GIARDIA AND CRYPTOSPORIDIUM ANTIGENS (10/04/2019 8:00 EDT) Giardia and Cryptosporidium Cryptosporidium Antigen Neg and Giardia Antigen Neg Cryptosporidium Antigen Neg and Giardia Antigen Neg 0 10:41 EDT [facility] Feces SPECIMEN FROM RECTUM / Unknown 10/04/2019 8:00 EDT 10/05/2019 16:55 EDT Provider Outr Resulting Lab MICROBIOLOGY - GENERAL ORDERABLES [facility] [address] [place] [address] * OVA/PARASITE EXAM (10/04/2019 8:00 EDT) Parasite No ova and parasites seen. 10/06/2019 13:58 EDT [facility] Feces SPECIMEN FROM RECTUM / Unknown 10/04/2019 8:00 EDT 10/05/2019 16:55 EDT Narrative [facility] - 10/06/2019 13:58 EDT (If Cryptosporidium, Cyclospora, or Microsporidium are suspected, specific tests must be requested.) Single negative specimen does not rule out the possibility of a parasitic infection. Provider Outr Resulting Lab MICROBIOLOGY - GENERAL ORDERABLES [facility] [address] [place] [address] documented in this encounter Visit Diagnoses Not on filedocumented in this encounter Care Teams Primer Boxer Relationship Specialty Start Date End Date Una Dickinson PA PCP - General 11/10/17 documented as of this encounter
--- OUTSIDE RECORDS SUMMARY | 2024-02-09 14:55 | XMS_ITS | Encounter Summary ---
Author Organization [facility] Address [address] [place] [address] Care Team Providers Care Leveler Helper Name Role Phone Una Dickinson Primary Care Provider + Encounter Details Date Type Department Care Team (Late st Contact Info) Description 09/28/2019 Lab Requisition [facility] Pathology & Laboratory Medicine - [facility] [address] [place] [address] Outr Resulting Lab, Provider Social History Tobacco [...] Procedure Name Priority Date/Time Associated Diagnosis Comments DO NOT ORDER STANDALONE - SANDRA COVID TESTING Today 09/28/2019 14:15 EDT COVID-19 TESTING Routine 09/28/2019 14:1 5 EDT documented in this encounter Results * DO NOT ORDER STANDALONE - SANDRA COVID TESTING (09/28/2019 14:15 EDT) COVID-19 rt-PCR Result Not Detected Not Detected 09/29/2019 15:20 EDT [facility] Comment: This test has not been FDA cleared or approved. This test has been authorized by FDA under an EUA for use by authorized laboratories. ??This test has been authorized only for the detection of nucleic acid from SARS-CoV-2, not for any other viruses or pathogens. ??This test is only authorized for the duration of the declaration that circumstances exist justifying the authorization of emergency use of in vitro diagnostic tests for detection and/or diagnosis of COVID-19 under Section 564(b)(1) of the Act, 21 U.S.C. ?? 360bbb-3(b)(1), unless the authorization is terminated or revoked sooner. ??Factsheets for healthcare providers: ??https://www.fda.gov/media/234728/download Factsheets for patients: https://www.fda.gov/media/652989/download Negative results do not preclude infection with SARS-CoV-2 virus, and should not be the sole basis of a patient management decision. Swab ENTIRE NASOPHARYNX / Unknown 09/28/2019 14:15 EDT 09/28/2019 20:25 EDT Provider Outr Resulting Lab MICROBIOLOGY - GENERAL ORDERABLES Performing Organization Address City/State/[facility] Co de Phone Number [facility] [address] [place] [address] * COVID-19 TESTING (09/28/2019 14:15 EDT) COVID-19 rt-PCR Result Not Detected Not Detected 09/29/2019 15:37 EDT [facility] Comment: This test has not been FDA cleared or approved. This test has been authorized by FDA under an EUA for use by authorized laboratories. ??This test has been authorized only for the detection of nucleic acid from SARS-CoV-2, not for any other viruses or pathogens. ??This test is only authorized for the duration of the declaration that circumstances exist justifying the authorization of emergency use of in vitro diagnostic tests for detection and/or diagnosis of COVID-19 under Section 564(b)(1) of the Act, 21 U.S.C. ?? 360bbb-3(b)(1), unless the authorization is terminated or revoked sooner. ??Factsheets for healthcare providers: ??https://www.fda.gov/media/278103/download Factsheets for patients: https://www.fda.gov/media/987450/download Negative results do not preclude infection with SARS-CoV-2 virus, and should not be the sole basis of a patient management decision. Performing Lab [facility] 09/29/2019 15:37 EDT [facility] Swab ENTIRE NASOPHARYNX / Unknown 09/28/2019 14:15 EDT 09/28/2019 20:25 EDT Provider Outr Resulting Lab MICROBIOLOGY - GENERAL ORDERABLES [facility] [address] LABORATORY [address] [place] [address] documented in this encounter Visit Diagnoses Not on filedocumented in this encounter Care Teams Leveler Helper Relationship Specialty Start Date End Date Una Dickinson PA PCP - General 11/10/17 documented as of this encounter
--- OUTSIDE RECORDS SUMMARY | 2024-02-09 14:55 | XMS_ITS | Encounter Summary ---
Author Organization [facility] Address [address] [place] [address] Care Team Providers Care Casting Carrier Name Role Phone Una Dickinson Primary Care Provider + Encounter Details Date Type Department Care Team (Late st Contact Info) Description 10/06/2019 Lab Requisition [facility] Pathology & Laboratory Medicine - [address] [address] Outr Resulting Lab, Provider Social History Tobacco [...] Procedure Name Priority Date/Time Associated Diagnosis Comments C. DIFFICILE PCR Routine 10/04/2019 8:00 EDT documented in this encounter Results * C. DIFFICILE PCR (10/04/2019 8:00 EDT) C. difficile PCR Negative Negative 10/06/2019 14:43 EDT [facility] Feces SPECIMEN FROM RECTUM / Unknown 10/04/2019 8:00 EDT 10/06/2019 9:51 EDT Provider Outr Resulting Lab MICROBIOLOGY - GENERAL ORDERABLES [facility] [address] [place] [address] documented in this encounter Visit Diagnoses Not on filedocumented in this encounter Care Teams Casting Carrier Relationship Specialty Start Date End Date Una Dickinson PA PCP - General 11/10/17 documented as of this encounter
--- OUTSIDE RECORDS SUMMARY | 2024-02-09 14:55 | XMS_ITS | Clinical Summary ---
Author Organization [facility] Address [address] [place] [address] Care Team Providers Care Site Surveyor Name Role Phone Una Dickinson Primary Care Provider + Social History Tobacco Use Types Packs/Day Years Used Date Smoking Tobacco: Never Assessed Interpersonal Safety Answer Date Record ed Physically Hurt Never 12/25/2019 Verbally Threaten Not on file 12/25/2019 Sex and Gender Information Value Date Recorded Sex Assigned at Not on file Gender Identity Not on file Sexual Orientation Not on file Plan of Treatment Health Maintenance Due Date Last Done Comments Hepatitis C Screen 1965 Hepatitis B Vaccine (1 of 3 - 19+ 3-dose series) 08/15 COVID-19 Vaccine ( season) 2023 Care Teams Site Surveyor Relationship Specialty Start Date End Date Una Dickinson PA PCP - General 11/10/17
--- OUTSIDE RECORDS SUMMARY | 2024-02-09 14:55 | XMS_ITS | Encounter Summary ---
Author Organization [facility] Address [address] [place] [address] Care Team Providers Care Bander And Cellophaner Helper Machine Name Role Phone Una Dickinson Primary Care Provider + Encounter Details Date Type Department Care Team (Late st Contact Info) Description 01/09/2021 Lab Requisition [facility] Pathology & Laboratory Medicine - [facility] [address] [place] [address] Outr Resulting Lab, Provider Social History Tobacco [...] Procedure Name Priority Date/Time Associated Diagnosis Comments CELIAC DISEASE PANEL Routine 01/08/2021 12:10 EDT documented in this encounter Results * (ABNORMAL) CELIAC DISEASE PANEL (01/08/2021 12:10 EDT) Tissue Transglutaminase Antibody IGA <1.2 <4.0 U/mL 01/14/2021 12:53 EDT [facility] Comment: A negative result may be due to IgA deficiency and does not rule out celiac disease. ? Negative: ??<4.0 U/mL ? Weak Positive: ??4.0 - 10.0 U/mL ? Positive: ??>10.0 U/mL Results were obtained with the [employer] QUANTA Lite R h-tTG IgA DANYELLE assay on the [employer] DSX. IgA 80(L) 85 - 499 mg/dL 01/14/2021 12:53 EDT [facility] Celiac Disease Interpretation Low total serum IgA. Recommend referral to gastroenterology specialist for additional evaluation. 01/14/2021 12:53 EDT [facility] Blood VENOUS BLOOD / Unknown 01/08/2021 12:10 EDT 01/09/2021 16:17 EDT Provider Outr Resulting Lab IMMUNOLOGY A ND SEROLOGY ORDERABLES Performing Organization Address City/State/[facility] Co de Phone Number [facility] [address] [place] [address] documented in this encounter Visit Diagnoses Not on filedocumented in this encounter Care Teams Bander And Cellophaner Helper Machine Relationship Specialty Start Date End Date Una Dickinson PA PCP - General 11/10/17 documented as of this encounter
--- OUTSIDE RECORDS SUMMARY | 2024-02-09 14:55 | XMS_ITS | Encounter Summary ---
Author Organization [facility] Address [address] [place] [address] Care Team Providers Care New Product Trainer Name Role Phone Carlos Hyde MD Primary Care Provider [phone] Encounter Details Date Type Department Care Team (Late st Contact Info) Description 11/06/2017 Results Only [facility] [phone] Carolyn Ferrara, DO [address] [place] [address] Social History Tobacco Use Types Packs/Day Years Used Date Smoking Tobacco: Never Assessed Sex and Gender Information Value Date Recorded Sex Assigned at Not on file Gender Identity Not on file Sexual Orientation Not on file documented as of this encounter Plan of Treatment Not on file documented as of this encounter Procedures Procedure Name Priority Date/Time Associated Diagnosis Comments SURGICAL PATHOLOGY Routine 11/06/2017 23 :44 EDT documented in this encounter Results * SURGICAL PATHOLOGY (11/06/2017 23:44 EDT) Pathology Report: SURGICAL PATHOLOGY REPORT Reports generated via electronic interface contain original data; however they are lacking the format of the original report. Caution should be taken when reading/interpreti ng unformatted reports. Name: ? ERICKSON LA ? Accession #: ? [id number] ? : ? 1965 (Age: 52) ??F ? Collect Date: ? 11/06/2017 ? Location: ? [facility] ? Receive Date: ? 11/06/2017 ? Provider: CAROLYN FERRARA DO Copy to: CHAPO CARR ? Final Pathologic Diagnosis: A. TERMINAL ILEUM, BIOPSY: - Small bowel mucosa with intraepithelial lymphocytosis. - See comment. B. COLON, RANDOM, BIOPSY: - Lymphocytic colitis. - See comment. C. RECTUM, RANDOM, BIOPSY: - Lymphocytic colitis. Comment: Given the presence of microscopic colitis in the colon and the histologic features of the terminal ileum biopsy (A) serologic testing to rule out celiac disease may be warranted in the correct clinical setting. Document reviewed and electronically signed by: WESLEY RONDON MD Report ??Date: 11/11/2017 10:04 By the signature above, the attending physician certifies that he/she has personally conducted a gross and/or microscopic examination of the described specimens and rendered or confirmed the above diagnosis. Specimen(s) Received: A. ??Terminal ileum biopsy B. ??Random colon biopsies C. ??Random rectum bxs Clinical History: Normal appearing colon; clinical diagnosis code: ??Z12.11 Gross Description: A. ?Received in formalin labelled with proper patient identification (initials J, W) and terminal ileum are four light angel tissues ranging in size from 0.2 x 0.2 x 0.1 cm to 0.4 x 0.2 x 0.1 cm. Submitted intact in blocks A1 and A2 B. ?Received in formalin labelled with proper patient identification (initials J, W) and random colon biopsies are 12 light angel biopsies ranging in size from 0.2 x 0.2 x 0.1 cm to 0.7 x 0.2 x 0.1 cm. Submitted intact in blocks B1-B4. C. ?Received in formalin labelled with proper patient identification (initials J, W) and rectum random biopsies are eight light angel biopsies ranging in size from 0.2 x 0.2 x 0.1 cm to 0.7 x 0.2 x 0.1 cm. Submitted intact in blocks C1-C3. LILLY Child (ASCP) 11/09/2017 7:44 AM End of Report [facility] 11/06/2017 23:4 4 EDT 11/06/2017 23:44 EDT Carolyn Ferrara DO PATHOLOGY ORDERABLES [facility] [address] [place] [address] documented in this encounter Visit Diagnoses Not on filedocumented in this encounter Care Teams New Product Trainer Relationship Specialty Start Date End Date Carlos Hyde MD PCP - General 03/31/15 11/09/17 documented as of this encounter
--- OUTSIDE RECORDS SUMMARY | 2024-02-09 14:55 | XMS_ITS | Encounter Summary ---
Author Organization [facility] Address [address] [place] [address] Care Team Providers Care Medical Staff Services Coordinator Name Role Phone Unavailable Primary Care Provider Unavailabl e Encounter Details Date Type Department Care Team (Late st Contact Info) Description 05/02/2008 Before PRISM Converted Visit (Map[facility]) [facility] - [facility] conversion [address] [place] [address] Emma Zapata, ROASTER SUPERVISOR [facility] [address] [place], [place] [id number] Social History Tobacco Use Types Packs/Day Years Used Date Smoking Tobacco: Never Assessed Sex and Gender Information Value Date Recorded Sex Assigned at Not on file Gender Identity Not on file Sexual Orientation Not on file documented as of this encounter Plan of Treatment Not on file documented as of this encounter Procedures Procedure Name Priority Date/Time Associated Diagnosis Comments CYTOPATHOLOGY Routine 05/02/2008 0:00 EST documented in this encounter Results * CYTOPATHOLOGY (05/02/2008 0:00 EST) Pathology Report: CYTOPATHOLOGY REPORT ? Reports generated via electronic interface contain original data; ? however they are lacking the format of the original report. ? Caution should be taken when reading/interpreti ng unformatted reports. ? Name: ? ERICKSON LA ? Accession #: ? [id number] ? : ? 1965 (Age: 42) ??F ?Collect Date: ? 05/02/2008 ? Location: ? [facility] ? Receive Date: ? 05/03/2008 ? Provider: ?EMMA ZAPATA NP ? Copy to: ? Specimen/Source: ?Pap Test, Vagina/Cervix Cuff, ThinPrep Imaging System ?? with manual evaluation ? Last Menstrual Period: ? 4 years ? Treatment History: ? Hysterectomy ? SPECIMEN ADEQUACY ? Satisfactory for Evaluation ? - transformation zone component absent ? GENERAL CATEGORIZATION ? Negative for Intraepithelial Lesion or Malignancy ? Document reviewed and electronically signed by: ? Lynan Atul, CT(ASCP) ? Report Date: ??05/04/2008 13:52 ? End of Report ? [facility] 05/02/2008 05/03/2008 Emma Zapata NP PATHOLOGY ORDERABLES [facility] [address] [place] [address] documented in this encounter Visit Diagnoses Not on filedocumented in this encounter
--- OUTSIDE RECORDS SUMMARY | 2024-02-09 14:55 | XMS_ITS | Encounter Summary ---
Author Organization [facility] Address [address] [place] [address] Care Team Providers Care Rail Switch Operator Name Role Phone Unavailable Primary Care Provider Unavailabl e Encounter Details Date Type Department Care Team (Latest Contact Info) Description 11/16/2000 15:32 EDT Hospital Encounter [facility] Emergency Department - [facility] [address] [place], [place] [address] Emergency, Default, MD Discharge Disposition: Home or Self Care Social [...] Procedure Name Priority Date/Time Associated Diagnosis Comments FINGER 2 OR MORE VIEWS Routine 11/16/2000 16:26 EDT WRIST 3 OR MORE VIEWS Routine 11/16/2000 16:26 EDT documented in this encounter Results * FINGER 2 OR MORE VIEWS (11/16/2000 16:26 EDT) Anatomical Region Laterality Modality Other 11/16/2000 16:2 6 EDT Narrative 04/13/2009 0:12 EST fell on rt. hand ,pain in wrist ,snuff box area - rt, thumb r/o fx + RIGHT THUMB AND RIGHT WRIST: 11/16/00. HISTORY: Fell. Pain in wrist. Rule out fracture. FINDINGS: Four views of the right wrist including a scaphoid view, and three views of the right thumb were obtained. There is soft tissue swelling at the base of the palm. There is no evidence [...] There is soft tissue swelling at the base of the palm. There is no evidence of fracture or dislocation. /tns Raya Millan PA-C [facility] ING ORDERABLES * WRIST 3 OR MORE VIEWS (11/16/2000 16:26 EDT) Anatomical Region Laterality Modality Other 11/16/2000 16:2 6 EDT Narrative 04/13/2009 0:12 EST fell on rt. hand ,pain in wrist ,snuff box area - rt, thumb r/o fx + Procedure Note [facility] MD - 04/13/2009 fell on rt. hand ,pain in wrist ,snuff box area - rt, thumb r/o fx + Raya Millan PA-C [facility] ING ORDERABLES documented in this encounter Visit Diagnoses Not on filedocumented in this encounter
--- OUTSIDE RECORDS SUMMARY | 2024-02-09 14:55 | XMS_ITS | Referral Summary ---
Author Organization [facility] Address [address] [place] [address] Care Team Providers Care Education Administrative Assistant Name Role Phone Una Dickinson Primary Care [...] Orientation Not on file Plan of Treatment Not on file Care Teams Education Administrative Assistant Relationship Specialty Start Date End Date Una Dickinson PA PCP - General 11/10/17
--- OUTSIDE RECORDS SUMMARY | 2024-02-09 14:55 | XMS_ITS | Encounter Summary ---
Author Organization [facility] Address [address] [place] [address] Care Team Providers Care Soil Fertility Extension Specialist Name Role Phone Unavailable Primary Care Provider Unavailabl e Encounter Details Date Type Department Care Team (Late st Contact Info) Description 04/14/2003 Results Only [facility] - [facility] conversion [address] [place] [address] Maria E Esquivel MD [address] [place] [address] [place] [address] Social History Tobacco Use Types Packs/Day Years Used Date Smoking Tobacco: Never Assessed Sex and Gender Information Value Date Recorded Sex Assigned at Not on file Gender Identity Not on file Sexual Orientation Not on file documented as of this encounter Plan of Treatment Not on file documented as of this encounter Procedures Procedure Name Priority Date/Time Associated Diagnosis Comments SURGICAL PATHOLOGY Routine 04/14/2003 0:00 EST documented in this encounter Results * SURGICAL PATHOLOGY (04/14/2003 0:00 EST) Pathology Report: SURGICAL PATHOLOGY REPORT Reports generated via electronic interface contain original data; however they are lacking the format of the original report. Caution should be taken when reading/interpreti ng unformatted reports. Name: ? ERICKOSN LA ? Accession #: ? [id number] ? : ? 1965 (Age: 37) ??F ? Collect Date: ? 04/14/2003 ? Location: ? [facility] ? Receive Date: ? 04/14/2003 ? Provider: MARIA E ESQUIVEL MD Copy to: DORIS TAY MD [...] or confirmed the above diagnosis. Specimen(s) Received: ? L tube; L hydrosalpinx Clinical History: ? L adnexal mass Gross Description: ? Received in normal saline labeled Abhinav is a fallopian tube that is fragmented into two portions, and has an overall measurement of 6.5 cm in length, and varies in diameter from 0.4 to 3.0 cm. ??Serial sectioning reveals a markedly dilated portion of the fallopian tube with a wall thickness of 0.1 cm. The less dilated portion of the fallopian tube has a wall thickness of 0.2 cm. No are identified. ??Three admissions representative sections of normal-appearing fallopian tube are submitted as (A1), and two admissions representative sections of the dilated portion are submitted as (A2). ??(Dr. Beverly)/[facility] End of Report [facility] 04/14/2003 04/14/2003 15: 13 EST Maria E Esquivel MD PATHOLOGY ORDERABLES [facility] [address] [place] [address] documented in this encounter Visit Diagnoses Not on filedocumented in this encounter
--- OUTSIDE RECORDS SUMMARY | 2024-02-09 14:55 | XMS_ITS | Encounter Summary ---
Author Organization [facility] Address [address] [place] [address] Care Team Providers Care Senior Interactive Developer Name Role Phone Una Dickinson Primary Care Provider + Encounter Details Date Type Department Care Team (Late st Contact Info) Description 06/06/2021 Lab Requisition [facility] Pathology & Laboratory Medicine - [facility] [address] [place] [address] Alejandra Norris PA-C [address] [place] [phone] Encounter for other general examination Social History Tobacco Use Types Packs/Day Years [...] Priority Date/Time Associated Diagnosis Comments SURGICAL PATHOLOGY Today 06/06/2021 15 :15 EST Encounter for other general examination documented in this encounter Results * SURGICAL PATHOLOGY (06/06/2021 15:15 EST) Note to Patient The following pathology results have been interpreted by your pathologist and may be available to you before your health provider has had the opportunity to review them. Please allow time for your provider to receive these results and explore management options, if applicable. 06/10/2021 11:19 EST [facility] Final Diagnosis A. SKIN OF BREAST, RIGHT, SUPERIOR/MEDIAL, BIOPSY: - Most suggestive of prurigo nodularis. See microscopic. B. SKIN OF BREAST, RIGHT, LATERAL, EXCISION: - Epidermal ulceration with dermal reactive change. See microscopic. 06/10/2021 11:19 [facility] Attestation By the signature below, the attending physician certifies that they have 1) personally conducted a gross and/or microscopic examination of the described specimen(s), and/or personally interpreted the results of laboratory testing of the described specimen(s), and 2) personally rendered or confirmed the above diagnosis. 06/10/2021 11:19 [facility] at [address] Microscopic Description Part a: The biopsy shows irregular epidermal hyperplasia with neutrophilic and serum crust. Parakeratosis and hyper orthokeratosis are noted. Reactive cytologic atypia is seen within the squamous epithelium. The dermis shows fibrosis and increased numbers of vessels with admixed chronic inflammation. Clinical correlation is recommended. Part B: Sections show epidermal ulceration with partial re-epithelializat ion and adjacent reactive change. Neutrophilic and serum crust is noted. The dermis shows fibrosis with vertically oriented vessels and patchy chronic inflammation consistent with scar. A neoplasm is not identified in the sections examined. Clinical correlation is recommended. 06/10/2021 11:19 [facility] Clinical History Skin lesions right breast 06/10/2021 11:19 [facility] Gross Description A. Received in formalin labelled with proper patient identification (initials J, W) and right breast: Superior/medial skin lesion are three rubbery irregular tissue fragments ranging from 0.5 x 0.3 x 0.2 cm to 0.7 x 0.4 x 0.3 cm. The surfaces are granular angel to angel-brown. Orientation is not obvious. Entirely submitted in A1. B. Received in formalin labelled with proper patient identification (initials J, W) and right breast: Lateral skin lesion is an irregular skin excision, 1.0 x 0.6 cm and excised to a depth of 0.5 cm. The central skin surface shows an area of ulceration, 0.5 cm in greatest dimension. The margin is inked. Serially sectioned and entirely submitted as follows: BLOCK CALL B1- tips, reverse en face B2- 2 central sections LILLY FARRAR(ASCP) 06/07/2021 7:46 06/10/2021 11:19 EST [facility] Performing Lab [facility] 06/10/2021 11:19 EST [facility] Scanned Images 06/10/2021 11:19 EST [facility] Tissue TISSUE SPECIMEN FROM SKIN / Unknown 06/06/2021 15:15 EST 06/06/2021 23:44 EST Tissue specimen (specimen) SPECIMEN FROM SKIN / Unknown 06/06/2021 15:15 EST 06/06/2021 23:44 EST Alejandra Norris PA-C PATHOLOGY ORDERABL ES [facility] [address] [place] [address] documented in this encounter Visit Diagnoses Diagnosis Encounter for other general examination documented in this encounter Care Teams Senior Interactive Developer Relationship Specialty Start Date End Date Una Dickinson PA PCP - General 11/10/17 documented as of this encounter
--- OUTSIDE RECORDS SUMMARY | 2024-02-09 14:55 | XMS_ITS | Encounter Summary ---
Author Organization [facility] Address [address] [place] [address] Care Team Providers Care Supervisor Poultry Processing Name Role Phone Una Dickinson Primary Care Provider + Encounter Details Date Type Department Care Team (Late st Contact Info) Description 10/12/2019 Lab Requisition [facility] Pathology & Laboratory Medicine - [address] [phone] Outr Resulting Lab, Provider Social History Tobacco [...] Procedure Name Priority Date/Time Associated Diagnosis Comments IGA Routine 10/11/2019 11:50 EDT documented in this encounter Results * (ABNORMAL) IGA (10/11/2019 11:50 EDT) IgA 71(L) 85 - 499 mg/dL 10/13/2019 10:53 EDT [facility] Blood VENOUS BLOOD / Unknown 10/11/2019 11:50 EDT 10/12/2019 15:42 EDT Provider Outr Resulting Lab CHEMISTRY & BLOOD GAS ORDERABLES [facility] [address] [place] [address] documented in this encounter Visit Diagnoses Not on filedocumented in this encounter Care Teams Supervisor Poultry Processing Relationship Specialty Start Date End Date Una Dickinson PA PCP - General 11/10/17 documented as of this encounter
--- OUTSIDE RECORDS SUMMARY | 2024-02-09 14:55 | XMS_ITS | Encounter Summary ---
Author Organization [facility] Address [address] [place] [address] Care Team Providers Care Lace Pinner Name Role Phone Unavailable Primary Care Provider Unavailabl e Encounter Details Date Type Department Care Team (Late st Contact Info) Description 05/15/2004 Results Only [facility] - Map conversion [address] [place] [address] Ld Yanez MD [address] [place], [place] [id number] Social History Tobacco Use Types Packs/Day Years Used Date Smoking Tobacco: Never Assessed Sex and Gender Information Value Date Recorded Sex Assigned at Not on file Gender Identity Not on file Sexual Orientation Not on file documented as of this encounter Plan of Treatment Not on file documented as of this encounter Procedures Procedure Name Priority Date/Time Associated Diagnosis Comments SURGICAL PATHOLOGY Routine 05/15/2004 0:00 EST documented in this encounter Results * SURGICAL PATHOLOGY (05/15/2004 0:00 EST) Pathology Report: SURGICAL PATHOLOGY REPORT Reports generated via electronic interface contain original data; however they are lacking the format of the original report. Caution should be taken when reading/interpreti ng unformatted reports. Name: ? ERICKSON LA ? Accession #: ? [id number] ? : ? 1965 (Age: 38) ??F ? Collect Date: ? 05/15/2004 ? Location: ? [facility] ? Receive Date: ? 05/16/2004 ? Provider: LD YANEZ MD Copy to: ? Final Pathologic Diagnosis: A. ?Uterosacral ligament, left, excision: 1. ?Fibroconnective tissue with no specific pathologic features. B. ?Uterus, cervix, bilateral ovaries, and right tube, hysterectomy, and bilateral oophorectomy and right salpingectomy: 1. ?Cervix: ? - ??Squamous metaplasia. - ??Atypia of endocervical glands. 2. ?Endomyometrium: ? - ??Proliferative endometrium. - ??Multiple leiomyomas, subserosal and intramural (largest is 1.0 cm). 3. ?Ovaries: ? - [...] confirmed the above diagnosis. Specimen(s) Received: A. ?Left uterosacral B. ?Uterus, cervix, colleen ovaries, R tube Clinical History: ? Chronic PID, recurrent progressive pelvic pain, dyspareunia, abnormal bleeding; LMP: 05/03/04 Gross Description: ? Received in formalin labelled Abhinav and #1 left uterosacral is a 0.3 x 0.4 x 0.2 cm fragment of angel-brown soft tissue. ??The specimen is entirely submitted as (A). ?? Received in formalin labelled Abhinav and uterus, cervix, colleen ovaries, right tube is the product of a hysterectomy and bilateral oophorectomy and unilateral salpingectomy. ??The uterus and cervix weighs 50 grams post-fixation and measures corpus to fundus 7.0 cm, cornu to cornu 4.0 cm and anterior to posterior 3.0 cm. There is an attached right ovary and right fallopian tube and an attached left ovary. ??On the serosa of the anterior uterus is a 1.0 x 0.7 x 0.7 cm angel whorled nodule. ??The endometrium measures 0.2 cm in thickness and the myometrium is 1.2 cm in thickness. ??On cut section, there are multiple subserosal, intramural angel whorled nodules which measure the greatest dimension of 1.0 cm. ??The endo-ectocervix is unremarkable and the squamocolumnar junction is discernible. The right fallopian tube measures 8.0 cm in length by 0.5 cm. ??The serosa is pink-angel and unremarkable. ??Serial sectioning reveals a angel muscular wall with no discrete lesions. ??The right ovary measures 2.5 x 2.5 x 2.0 cm. ??The surface is lobulated and hahn without any distinct lesions. ??Attached to the surface of the right ovary is a 0.8 x 0.5 x 0.2 cm angel nodule. ??This nodule is submitted with the ovarian section. ??The left ovary measures 3.5 x 2.0 x 1.5 cm. ??It has a angel lobulated surface. ??Cut sectioning reveals an unremarkable ovarian stroma. ?? BLOCK CALL B1 ?Anterior full thickness endomyometrium B2 ?Anterior cervix B3 ?Posterior endomyometrium B4 ?Posterior cervix B5 ?Two auto claim representative sections of right fallopian tube and one auto claim representative section of right ? ovary with angel nodule B6 ?Statistical Financial Analyst section of left ovary (Dr. Ledbetter-)/tmg End of Report [facility] 05/15/2004 05/16/2004 8:1 7 EST Ld Yanez MD PATHOLOGY ORDERABLES Performing Organization Address City/State/[facility] Co de Phone Number [facility] [address] [place] [address] documented in this encounter Visit Diagnoses Not on filedocumented in this encounter
--- OUTSIDE RECORDS SUMMARY | 2024-02-09 14:56 | XMS_ITS | Encounter Summary ---
Author Organization [facility] [place] [address] Care Team Providers Care Health Equipment Servicer Name Role Phone None Primary Care Provider Unavailabl e Encounter Details Date Type Department Care Team (Late st Contact Info) Description 12/01/2023 3:44 PM EDT Anesthesia Event [place] [phone] Delvin Crystal MD Novak, Nathaniel, MD [facility] [place] [address] Anesthesia Record Procedure Summary Procedure Name Responsible Anesthesiologist Anesthesia Start Time Anesthesia Stop Time EXCISION BENIGN TUMOR OR CYST, MANDIBLE (WRVU 4.91) (Midline: Face) Delvin Crystal MD 12/01/23 1544 12/01/23 1709 Events Date Time Event Comment 12/01/2023 1528 1544 AN Verify 1544 Start 1544 An Start Data 1552 An Induction 1559 An Intubation 1602 Anesthesia Ready 1655 Extubation/LMA Out 1709 Stop 1710 an stop data 1710 Recovery or ICU Handoff Libra ent care was transferred to the destination unit staff after review of the patient's medical history, current anesthetic/surgical status and plan, according to the Provider Handoff Checklist. Meds Name Total midazolam 2 mg fentaNYL 100 mcg propofoL 200 mg rocuronium 30 mg PHENYLephrine 480 mcg ondansetron 4 mg dexAMETHasone 8 mg neostigmine 2 mg glycopyrrolate 0.4 mg dexmedeTOMIDine 4 mcg/mL 12 mcg cefTRIAXone 1 g ketorolac 30 mg albuterol inhaler 6 puff lactated ringers 700 mL * Agents Name O2 * Blood No blood administrations on file. Lines, Drains, and Airways Type Details Placement Removal Wound 11/19/23; 1407; Y; R ight, lower; jaw; abscess 11/19/23 1407 by Jamee Chi RN Incision 12/01/23; 1610; midl ine, lower; jaw 12/01/23 1610 by Mily Tompkins RN PICC Line 11/25/23; 1021; Sing le Lumen; pressure injectable catheter; 4 Fr; basilic vein (medial side of arm), right; 2 cm; 35 cm; 37 cm; 30; placement verified by x-ray; caval atrial junction; intradermal injection; 0; removed inadvertently, removed per patient; 12/23/23 (per pt report) 11/25/23 1021 by Fidel Jimenez RN 12/23/23 0000 by Cindy Lizama RN ETT Mask Ventilation: Ea sy (1); ETT Type: Cuffed, Nasal; ETT Size: 7 mm; Mac Blade: 3; Notes: Asleep, Pre-O2; Attempts: 1; Laryngoscopy Grade: 1; ETT Placement Verified By: Auscultation, Capnometry; Removal Date: 12/01/23; Removal Time: 1655 12/01/23 1604 by Sudhir Canales MD 12/01/23 1655 by Kyler Prieto DO documented in this encounter Social History Tobacco Use Types Packs/Day Years Used Date Smoking Tobacco: Every Day Cigarettes 1 28 Smokeless Tobacco: Never Comments:Currently using kalia otine inhaler to help herself quit (11/08/18) Alcohol Use Standard Drinks/Week Comments Not Currently 0 (1 standard drink = 0.6 oz pur e alcohol) [facility] Utilities Answer Date Recorded In the past 12 months has [employer], gas, oil, or water [employer] threatened to shut off services in your home? No 11/20/2023 Hunger Vital Sign Answer Date Recorded Within the past 12 months, y ou worried that your food would run out before you got the money to buy more. Never true 11/20/19 24 Within the past 12 months, t he food you bought just didn't last and you didn't have money to get more. Never true 11/20/2023 PRAPARE - Transportation Answer Date Re corded In the past 12 months, has l ack of transportation kept you from medical appointments or from getting medications? No 10/24 In the past 12 months, has l ack of transportation kept you from meetings, work, or from getting things needed for daily living? No 11/20/2023 Housing Stability Vital Sign Answer Rajesh e Recorded In the last 12 months, was t here a time when you were not able to pay the mortgage or rent on time? No 11/20/2023 In the past 12 months, how m any times have you moved where you were living? 1 11/20/2023 At any time in the past 12 m [facility], were you homeless or living in a long-term (including now)? No 11/20/2023 DH IPV Inpatient Questions Answer Date Recorded Does Anyone Try to Keep You From Having Contact with Others or Doing Things Outside Your Home? no 12/01/2023 Feels Threatened by Someone no 01/2024 Feels Unsafe at Home or Work/School no 12/01/2023 Physical Signs of Abuse Present no 12/01/2023 Sex and Gender Information Value Date Recorded Sex Assigned at Not on file Gender Identity Not on file Sexual Orientation Not on file documented as of this encounter OR Notes * Anesthesia Postprocedure Evaluation - Delvin Crystal MD - 12/01/2023 5:09 PM EDT Department of Anesthesiology Post-procedure Note Patient: Jenae La Procedure Summary Date: 12/01/23 Room / Location: [address] MAIN OR Anesthesia Start: 1543 Anesthesia Stop: 1708 Procedure: EXCISION BENIGN TUMOR OR CYST, MANDIBLE (WRVU 4.91) (Midline: Face) Diagnosis: Osteomyelitis of other site, unspecified type (Erosive lesion of the mandible) Surgeons: Fidel Naranjo MD Responsible Provider: Delvin Crystal MD Anesthesia Type: general ASA Status: 3 All Anesthesia Providers: Anesthesiologist: Delvin Crystal MD Field Staff Manager: Kyler Prieto DO; Sudhir Canales MD Vitals Value Taken Time BP 114/69 12/01/23 1704 Temp Pulse 74 12/01/23 1709 Resp 15 12/01/23 1709 SpO2 97 % 07/09/24 1709 Pain Level Vitals shown include unfiled device data. Patient Location: PACU/SDP Level of Consciousness: Awake and Alert Pain Management: Satisfactory Analgesia PONV: None Cardiovascular Status: At Baseline and Hemodynamically Stable Respiratory Status: Stable Respiratory Status and Supplemental O2 (NC or FM) Postoperative Fluid Status: Intravascular EUvolemia Possible Anesthetic Complications: NONE apparent at time of evaluation Final Primary Anesthesia Type: General (The anesthetic type performed was the same as planned.) Comments: Kyler Prieto DO * Anesthesia Preprocedure Evaluation - Delvin Crystal MD - 12/01/2023 3:11 PM EDT Pre-Anesthesia Evaluation for: Jenae La a 58 y.o. female. Procedure(s): EXCISION BENIGN TUMOR OR CYST, MANDIBLE (WRVU 4.91) Patient Active Problem List Diagnosis Date Noted ??? Osteomyelitis of anterior right mandible 11/19/2023 ??? Hot flashes 11/19/2023 ??? Hypertension 09/15/2018 ??? Hyperlipidemia 09/15/2018 ??? Type 2 diabetes mellitus without complication, with long-term current use of insulin 09/15/2018 ??? Chronic pain 09/15/2018 ??? LORRI on CPAP 09/15/2018 ??? Gastroesophageal reflux 09/15/2018 ??? S/P ORIF bilateral foot fractures, 09/16/18 (Brianna) 09/14/2018 ??? Psoriasiform dermatitis 09/24/2011 Past Medical History: Diagnosis Date ??? Arthritis [...] 3.24) performed by Aparna Reed MD at [facility] MAIN OR ??? PRO OPEN TREATMENT METATARSAL FRACTURE EACH Bilateral 09/16/2018 ORIF METATARSAL FX, EACH (WRVU 7.44) performed by Aparna Reed MD at [facility] MAIN OR ??? PRO OPEN TREATMENT TARSOMETATARSAL JOINT DISLOCATION Right 09/16/2018 OPEN TREAMENT TARSOMETATARSAL JOINT DISLOCATION (WRVU 10.7) performed by Aparna Reed MD at [facility] MAIN OR ??? PRO OPEN TX FRACTURE GREAT TOE/PHALANX/PHALANGES Right 09/16/2018 ORIF GREAT TOE (WRVU 7.44) performed by Aparna Reed MD at [facility] MAIN OR ??? PRO PERCUT TREAT METATARSAL FX Left 09/16/2018 PERCUTANEOUS PINNING, METATARSAL FX, EA. (WRVU 3.6) performed by Aparna Reed MD at [facility] MAIN OR ??? PRO PERCUT TREAT TAR-METATAR FOOT DISLOC Right 09/16/2018 PERCUTANEOUS PINNING, TARSOMETATARSAL JOINT DISLOCATION (WRVU 5.09) performed by Aparna Reed MD at [facility] MAIN OR ??? SHOULDER ARTHROSCOPY Bilateral Social History Tobacco Use ??? Smoking status: Every Day Current packs/day: 1.00 Average packs/day: 1 pack/day for 28.0 years (28.0 ttl pk-yrs) Types: Cigarettes ??? Smokeless tobacco: Never ??? Tobacco comments: Currently using nicotine inhaler to help herself quit (11/08/18) Substance Use Topics ??? Alcohol use: Not Currently Social History Substance and Sexual Activity Drug Use Never Allergies Allergen Reactions ??? Bee Sting [Hymenoptera Allergenic Extract] Other (See Comments) Swelling ??? Sulfa (Sulfonamide Antibiotics) ??? Tape, Occlusive Adhesive Medications: MAR and/or home medications have been reviewed. Physical Exam: Preprocedure Vitals Current as of 11/30/23 1734 No BP, pulse, respiration, SpO2, or temperature recorded. Height: Weight: BMI: IBW: Airway Assessment: Mallampati: II TM distance: >3 FB Neck ROM: full Cardiovascular Assessment: Rhythm: regular Rate: normal Pulmonary Assessment: unlabored breathing Dental Assessment: (+) edentulous [facility] [place]: IV access: Peripheral line Last Filed Perioperative Cognitive Screening None Anesthesia Plan: ASA 3 general, with a(n) intravenous induction Jenae La is a 58 y.o. female (BMI 30) with a hx significant for osteomyelitis of the mandible presenting for mandibular debridement with Dr. Naranjo. PMHx: DMII HTN HLD LORRI on CPAP GERD Chronic pain Smoker 1/2 ppd NPO adequate. Activity prior to surgery: METS>4. Meds: Ceftriaxone Celecoxib Baclofen Clonidine Doxepin Ezetimibe Famotidine Ibuprofen Losartan Meloxicam Montelukast Omeprazole Ozempic Simvastatin Tramadol Venlafaxine Zolpidem Allergies -- Bee Sting [Hymenoptera Allergenic Extract] -- Other (See Comments) -- Swelling -- Sulfa (Sulfonamide Antibiotics) -- Tape, Occlusive Adhesive Anesthesia Hx: *Pt denies any complications from anesthesia and any Fhx of complications with anesthesia. GA 2019. Proven airway, grade 1 view with Mac 3 ECHO: 11/20/23 Interpretation Summary 1. Left ventricle is of normal size. Wall thickness is normal. Left ventricular size and systolic function are normal. The left ventricular ejection fraction is 61% by 3D volumetric assessment. There are no segmental wall motion abnormalities. 2. The right ventricle is of normal size. Right ventricular systolic function is normal. 3. There is mild to moderate aortic regurgitation. 4. No prior study available for comparison. Labs: 11/21/23 11/20/23 11/19/23 0525 0142 1115 WBC 7.0 8.6 14.9* HGB 11.5* 10.9* 12.8 HCT 34.7* 32.8* 38.7 PLATELET 247 260 326 11/21/23 11/20/23 11/19/23 0525 0142 1115 NA 143 142 143 K 3.6 3.2* 3.8 CL 111* 113* 111* CO2 22 18* 20* BUN 15 12 18 CREATININE 0.93 0.83 0.90 Pertinent Imaging: CT face 11/19/23 IMPRESSION Advanced osteomyelitis of the anterior RIGHT mandible. Plan is for GA with nasal ETT, standard ASA monitors, and adequate IV access. Region - Other Informed Consent: Anesthetic plan and risks discussed with patient. Use of blood products discussed with patient who consented to blood products. Plan discussed with resident and attending. Anesthesia Screening documented in this encounter Plan of Treatment Not on file documented as of this encounter Visit Diagnoses Not on filedocumented in this encounter Administered Medications Inactive Administered Medications - up to 3 most recent administrations Medication Order MAR Action Action Date Dose Rate Site albuteroL 90 mcg/actuation inhaler Inhalation, PRN, Starting on Thu12/01/23 at 1657, Until Thu12/01/23 at 1709, Anesthesia Intra-op, Routine Given 12/01/2023 4:57 PM EDT 6 puffs cefTRIAXone (Rocephin) injection Intravenous, PRN, Starting on Thu12/01/23 at 1602, Until Thu12/01/23 at 1709, Anesthesia Intra-op, Routine Given 12/01/2023 4:02 PM EDT 1 g dexAMETHasone (Decadron) injection Intravenous, PRN, Starting on Thu12/01/23 at 1602, Until Thu12/01/23 at 1709, Anesthesia Intra-op, Routine Given 12/01/2023 4:02 PM EDT 8 mg dexmedeTOMIDine (Precedex) (4 mcg/mL) bolus injection (Anesthsia) Intravenous, PRN, Starting on Thu12/01/23 at 1547, Until Thu12/01/23 at 1709, Anesthesia Intra-op, Routine Given 12/01/2023 3:47 PM EDT 12 mcg fentaNYL (pf) (50 mcg/mL) multi-dose injection Intravenous, PRN, Starting on Thu12/01/23 at 1547, Until Thu12/01/23 at 1709, Anesthesia Intra-op, Routine Given 12/01/2023 4:24 PM EDT 50 mcg Given 12/01/2023 3:47 PM EDT 50 mcg glycopyrrolate (Robinul) (0.2 mg/mL) multi-dose injection Intravenous, PRN, Starting on Thu12/01/23 at 1653, Until Thu12/01/23 at 1709, Anesthesia Intra-op, Routine Given 12/01/2023 4:53 PM EDT 0.4 mg ketorolac (Toradol) (30 mg/mL) injection Intravenous, PRN, Starting on Thu12/01/23 at 1657, Until Thu12/01/23 at 1709, Anesthesia Intra-op, Routine Given 12/01/2023 4:57 PM EDT 30 mg lactated ringers infusion Intravenous, CONTINUOUS PRN, Starting on Thu12/01/23 at 1544, Until Thu12/01/23 at 1709, Anesthesia Intra-op New Bag 12/01/2023 3:44 PM EDT midazolam (pf) (Versed) (1 mg/mL) multi-dose injection Intravenous, PRN, Starting on Thu12/01/23 at 1544, Until Thu12/01/23 at 1709, Anesthesia Intra-op, Routine Given 12/01/2023 3:44 PM EDT 2 mg neostigmine (Bloxiver) (1 mg/mL) injection Intravenous, PRN, Starting on Thu12/01/23 at 1653, Until Thu12/01/23 at 1709, Anesthesia Intra-op, Routine Given 12/01/2023 4:53 PM EDT 2 mg ondansetron (pf) (Zofran) (2 mg/mL) injection Intravenous, PRN, Starting on Thu12/01/23 at 1653, Until Thu12/01/23 at 1709, Anesthesia Intra-op, Routine Given 12/01/2023 4:53 PM EDT 4 mg PHENYLephrine in NS (PF) (TOMAS-SYNEPHRINE) 0.8 mg/10 mL (80 mcg/mL) multi-dose injection Syringe Intravenous, PRN, Starting on Thu12/01/23 at 1608, Until Thu12/01/23 at 1709, Anesthesia Intra-op, Routine Given 12/01/2023 4:46 PM EDT 80 mcg Given 12/01/2023 4:43 PM EDT 80 mcg Given 12/01/2023 4:40 PM EDT 80 mcg propofoL (Diprivan) 10 mg/mL bolus injection (Anesthesia) Intravenous, PRN, Starting on Thu12/01/23 at 1552, Until Thu12/01/23 at 1709, Anesthesia Intra-op Given 12/01/2023 3:57 PM EDT 50 mg Given 12/01/2023 3:55 PM EDT 50 mg Given 12/01/2023 3:52 PM EDT 100 mg rocuronium (Zemuron) (10 mg/mL) multi-dose injection Intravenous, PRN, Starting on Thu12/01/23 at 1553, Until Thu12/01/23 at 1709, Anesthesia Intra-op, Routine Given 12/01/2023 3:53 PM EDT 30 mg documented in this encounter Care Teams Health Equipment Servicer Relationship Specialty Start Date End Date None None PCP - General 12/01/23 documented as of this encounter
--- OUTSIDE RECORDS SUMMARY | 2024-02-09 14:56 | XMS_ITS | Encounter Summary ---
Author Organization [facility] [place] [address] Care Team Providers Care Accounts Receivable Assistant Name Role Phone None Primary Care Provider Unavailabl e Encounter Details Date Type Department Care Team (Late st Contact Info) Description 12/08/2023 Telephone [place] [phone] Alea Bailey APRN [facility] [place] [address] Social History Tobacco Use Types Packs/Day Years Used Date Smoking Tobacco: Every Day Cigarettes 1 28 Smokeless Tobacco: Never Comments:Currently using kalia otine inhaler to help herself quit (11/08/18) Alcohol Use Standard Drinks/Week Comments Not Currently 0 (1 standard drink = 0.6 oz pur e alcohol) [facility] Utilities Answer Date Recorded In the past 12 months has e electric, gas, oil, or water company threatened to shut off services in your [...] any time in the past 12 m [facility], were you homeless or living in a [facility]p (including now)? No 11/20/2023 [facility] IPV Inpatient [...] on filedocumented in this encounter Care Teams Accounts Receivable Assistant Relationship Specialty Start Date End Date None None PCP - General 12/01/23 documented as of this encounter
--- OUTSIDE RECORDS SUMMARY | 2024-02-09 14:56 | XMS_ITS | Encounter Summary ---
Author Organization [facility] Address [facility] [place] [address] Care Team Providers Care Cupola Repairer Name Role Phone Unknown Primary Care Provider Unavailabl e Reason for Visit * Reason Onset Date Comments Follow-up 11/23/2023 F/U to schedule outpatient OPAT Encounter Details Date Type Department Care Team (Late st Contact Info) Description 11/23/2023 Telephone Infectious Disease at [facility] [place] [phone] Cindy Lizama, RN Follow-up (F/U to schedule outpatient OPAT) Social History Tobacco Use Types Packs/Day Years Used Date Smoking Tobacco: Every Day Cigarettes 1 28 Smokeless Tobacco: Never Comments:Currently using kalia otine inhaler to help herself quit (11/08/18) Alcohol Use Standard Drinks/Week Comments Not Currently 0 (1 standard drink = 0.6 oz pur e alcohol) [facility] Utilities Answer Date Recorded In the past 12 months has e [employer], gas, oil, or water [employer] threatened to shut off services in your [...] any time in the past 12 m onths, were you homeless or living in a senior care (including now)? No 11/20/2023 DH IPV Inpatient Questions Answer Date Recorded Does Anyone Try to Keep You From Having Contact with Others or Doing Things Outside Your Home? no 11/20/2023 Feels Threatened by Someone no 10/24 Feels Unsafe at Home or Work/School no 11/20/2023 Physical Signs of Abuse Present no 11/20/2023 Sex and Gender Information Value Date Recorded Sex Assigned at Not on file Gender Identity Not on file Sexual Orientation Not on file documented as of this encounter Miscellaneous Notes * Telephone Encounter - Cindy Lizama RN - 11/23/2023 11:52 AM EDT Called pt and left message to call back with RN direct line for initiation of outpatient IV ABX forTx of mandibular OM. Will try again later today if pt does not return call sooner. documented in this encounter Plan of Treatment Not on file documented as of this encounter Visit Diagnoses Not on filedocumented in this encounter Care Teams Cupola Repairer Relationship Specialty Start Date End Date Unknown None PCP - General 11/20/23 11/30/23 documented as of this encounter
--- OUTSIDE RECORDS SUMMARY | 2024-02-09 14:56 | XMS_ITS | Encounter Summary ---
Author Organization [facility] Address [facility] [place] [address] Care Team Providers Care Oracle Technical Architect Name Role Phone None Primary Care Provider Unavailabl e Reason for Referral * Consultation (Routine) - Closed Specialty Diagnoses / Procedures Referred By Contac t Referred To Contact Infectious Diseases Diagnoses 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 shelter current use of antibiotics Juan Yo MD [facility] [address] [facility] Infectious [facility] [address] [place] [address] Referral ID Status Reason Start Date Expiration Date V isits Requested Visits Authorized [id number] Closed Assume Subset of Care 11/24/2023 11/23/2024 1 1 Encounter Details Date Type Department Care Team (Late st Contact Info) Description 11/23/2023 Orders Only [place] [id number] Juan Yo MD [facility] [address] 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; [facility]aker current use of antibiotics Social History Tobacco Use Types Packs/Day Years Used Date Smoking Tobacco: Every Day Cigarettes 1 28 Smokeless Tobacco: Never Comments:Currently using kalia otine inhaler to help herself quit (11/08/18) Alcohol Use Standard Drinks/Week Comments Not Currently 0 (1 standard drink = 0.6 oz pur e alcohol) [facility] Utilities Answer Date Recorded In the past 12 months has th e electric, gas, oil, or water company [...] any time in the past 12 m [facility], were you homeless or living in a [...] of this encounter Plan of Treatment Scheduled Orders Name Type Priority Associated Diagnoses Orde r Schedule CBC (with Diff) Lab Routine 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 shelter current use of antibiotics Once a week for 6 Occurrences starting 11/24/2023 until 01/24/2024 Comprehensive metabolic panel (non-fasting) Lab Routine 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 [facility]termaker current use of antibiotics Once a week for 6 Occurrences starting 11/24/2023 until 01/24/2024 CRP, acute inflammation Lab Routine 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 shelter current use of antibiotics Once a week for 6 Occurrences starting 11/24/2023 until 01/24/2024 Scheduled Referrals Name Type Priority Associated Diagnoses Order Schedule OPAT: Order / Recommendation for Post Discharge IV Antibiotic Management Outpatient Referral Routine 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 buttermaker current use of antibiotics Ordered: 11/24/2023 documented as of this encounter Visit Diagnoses Diagnosis 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 buttermaker current use of antibiotics Encounter for long-term (current) use of antibiotics documented in this encounter Care Teams Oracle Technical Architect Relationship Specialty Start Date End Date None None PCP - General 12/01/23 documented as of this encounter
--- OUTSIDE RECORDS SUMMARY | 2024-02-09 14:56 | XMS_ITS | Encounter Summary ---
Author Organization [facility] Address [facility] [place] [address] Care Team Providers Care Steam Bone Press Tender Name Role Phone Unknown Primary Care Provider Unavailabl e Encounter Details Date Type Department Care Team (Late st Contact Info) Description 11/25/2023 Notes Only Infectious Disease at [facility] [place] [address] Cindy Lizama RN Social History Tobacco Use Types Packs/Day Years Used Date Smoking Tobacco: Every Day Cigarettes 1 28 Smokeless Tobacco: Never Comments:Currently using kalia otine inhaler to help herself quit (11/08/18) Alcohol Use Standard Drinks/Week Comments Not Currently 0 (1 standard drink = 0.6 oz pur e alcohol) [facility] Utilities Answer Date Recorded In the [...] any time in the past 12 m [facility], were you homeless or living in a group home (including now)? No 11/20/2023 [facility] Inpatient Questions Answer Date Recorded Does Anyone [...] documented as of this encounter Progress Notes * Cindy Lizama RN - 11/25/2023 12:03 PM EDT Infectious Disease/OPAT Program Progress Note Outpatient start for IV ABX on 11/25/2023 Schedule: 1000 PICC line insertion at 3T 1100 First infusion at 3-D Infusion Suite at [facility] Labs to be drawn at [facility] today (11/24) and at [facility] Infusion Suite each Thursday at 1300. Orders/referrals completed: PICC, OPAT, labs, therapy plan, STAFF DEVELOPMENT COORDINATOR referral Referrals made to: STAFF DEVELOPMENT COORDINATOR: N/A Infusion vendor: [facility] Infusion suite: [facility] ID physician and patient aware of schedule. Infectious Disease/OPAT Program Teaching Visit/ID Clinic 5C Met with patient and her in clinic to discuss home on IV ABX. Patient given and reviewed OPAT package including OPAT order, PICC line care including dressing changes weekly & prn, weekly & prn labs, potential issues, what they might mean and who to contact. Reviewed roles and responsibilities of STAFF DEVELOPMENT COORDINATOR and infusion vendor. Contact information for ID team/clinic, STAFF DEVELOPMENT COORDINATOR and infusion vendor given to pt. Discussed f/u appointments in ID 5C clinic, telephone and tele health. Pt verbalized understanding. All questions answered. Pt forgot 3-D Infusion appt at 1100. Will go directly from OPAT teach to receive 1st dose of ABX. IV & PO ABX Medications: ID Diagnosis: Mandibular osteomyelitis Microorganisms being treated: Strep spp. Antibiotic: Ceftriaxone 2G IV Q24H Start date: 11/19/2023 Anticipated stop date: 12/31/2023 STAFF DEVELOPMENT COORDINATOR: N/A Pt scheduled to go to [facility] Infusion Suite for weekly labs and PICC care Infusion vendor: [facility] IV Access: A 4 Fr. single lumen Bard Power catheter was placed into the right basilic vein over a 0.018 inch guidewire using modified seldinger technique and fluoroscopy. Arm circumference was 30 cm at 2 cm above the insertion site. Final catheter length (with trimming): 37 cm Internal: 35 cm External: 2 cm Placed on: 11/25/2023 F/u: Labs: Q Thursday: CBC/Diff, CMP at [facility] Labs: Q Thursday Inflammatory CRP at [facility] Attending Responsible for IV Antimicrobials: Juan Bennett MD ID F/U appts to be scheduled documented in this encounter Plan of Treatment Not on file documented as of this encounter Visit Diagnoses Not on filedocumented in this encounter Care Teams Steam Bone Press Tender Relationship Specialty Start Date End Date Unknown None PCP - General 11/20/23 11/30/23 documented as of this encounter
--- OUTSIDE RECORDS SUMMARY | 2024-02-09 14:56 | XMS_ITS | Encounter Summary ---
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 Discharge Disposition: Home Social History Tobacco Use Types Packs/Day Years Used Date Smoking Tobacco: Every Day Cigarettes 1 28 Smokeless Tobacco: Never Comments:Currently using kalia otine inhaler to help herself quit (11/08/18) Alcohol Use Standard Drinks/Week Comments Not Currently 0 (1 standard drink = 0.6 oz pur e alcohol) [facility] Utilities Answer Date Recorded In the past 12 months has [employer], [employer], oil, or water [employer] threatened to shut off services in your [...] any time in the past 12 m [facility], were you homeless or living in a [...] Dispensed Refills Start Date End Date acetaminophen (Tylenol) 500 mg tablet Take 1,000 mg by mouth every 6 hours as needed for Pain. AMLODIPINE BESYLATE, BULK, MISC 2.5 mg by Misc.(Non-Drug; Combo Route) route daily. chlorhexidine (Peridex) 0.12 % Mouthwash Use 15 mL every day in the AM after waking up, before bedtime in the PM and after each meal. 473 mL 12/01/2023 morphine IR (MS IR) 15 mg IR tablet Take 0.5 tablets by mouth every 4 hours as needed for Pain. 25 tablet 11/21/2023 celecoxib (CeleBREX) 100 mg capsule Take 100 mg by mouth 2 times daily. 11/15/2023 cloNIDine (Catapres) 0.1 mg tabletIndications:va somotor symptoms associated with menopause Take 0.05 mg by mouth daily. Indications: change of life signs 10/05/2023 doxepin (SINEquan) 10 mg capsule Take 10 mg by mouth nightly. 11/03/2023 ezetimibe (Zetia) 10 mg tablet Take 10 mg by mouth daily. 10/27/2023 famotidine (Pepcid) 20 mg tablet Take 20 mg by mouth nightly. 08/24/2023 losartan (Cozaar) 50 mg tablet Take 100 mg by mouth daily. 10/30/2023 meclizine (Antivert) 25 mg tabletIndications:pr evention of motion sickness Take 1 tablet by mouth 3 times daily as needed for Nausea. Indications: prevention of motion sickness 08/07/2023 montelukast (Singulair) 10 mg tablet Take 10 mg by mouth daily. 10/23/2023 omeprazole (PriLOSEC) [address] capsule Take 20 mg by mouth every morning. 09/09/2023 Ozempic 0.25 mg or 0.5 mg (2 mg/3 mL) Pen Injector Inject 0.25 mg subcutaneously once a week. 10/11/2023 simvastatin (Zocor) 40 mg tablet Take 1 tablet by mouth daily. 09/09/2023 traMADoL (Ultram) 50 mg tablet Take 50 mg by mouth every 8 hours as needed for Pain. 10/14/2023 zolpidem (Ambien) 10 mg tablet Take 10 mg by mouth nightly as needed for Sleep. 10/13/2023 baclofen (Lioresal) 10 mg tablet Take 1 tablet by mouth Three Times Daily for DHE. 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 Estimated EOT 12/31/2023 72 each 11/25/2023 12/30/2023 sodium chloride 0.9 %, flush, (BD PosiFlush Normal Saline 0.9) SyringeIndications:O steoma of mandibular condyle,intermediate designer current use of antibiotics Inject 10 mLs into the vein as needed (For Line Patency - See Instructions). FLUSH PROTOCOL WITH MEDICATIONS (SASH): Before med infusion: flush with NS 10 mL. After med infusion: flush with NS 10 mL then heparin (10 units/mL) 3 mL. Additional Lumens: flush twice daily & PRN with NS 10 mL and then heparin (10 units/mL) 3 mL. // WITH BLOOD WITHDRAWAL: Before blood draw: flush with NS 10 mL. After blood draw: flush with NS 20 mL and then heparin (10 units/mL) 3 mL. 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 FLUSH PROTOCOL WITH MEDICATIONS (SASH): Before med infusion: flush with NS 10 mL. After med infusion: flush with NS 10 mL then heparin (10 units/mL) 3 mL. Additional Lumens: flush twice daily & PRN with NS 10 mL and then heparin (10 units/mL) 3 mL. // WITH BLOOD WITHDRAWAL: Before blood draw: flush with NS 10 mL. After blood draw: flush with NS 20 mL and then heparin (10 units/mL) 3 mL. // FLUSH WITHOUT MEDICATION: Twice Daily & PRN: flush with NS 10 mL and then heparin (10 units/mL) 3 mL 100 each 11/24/2023 12/30/2023 alteplase (Cathflo) 2 mg Recon SolnIndications:Oste cris of mandibular condyle,intermediate designer current use of antibiotics Instill reconstituted alteplase (Cathflo) 2 mg per instillation (based on volume of lumen). May repeat x1 per occlusion 1 each 11/24/2023 12/30/2023 amoxicillin-clavulan ate (Augmentin) 875-125 mg tablet Take 1 tablet by mouth 2 times daily for 14 days. 28 tablet 11/21/2023 12/05/2023 documented as of this encounter Procedure Notes * Fidel Jimenez RN - 11/25/2023 10:18 AM EDT PICC/Midline Insertion Procedure Note Indications: Medication Administration This insertion was not to replace a malfunctioning catheter. This insertion was not due to a suspected line-associated infection. Location of Procedure: X-Ray Room 11 Risks and Benefits: The risks and benefits of this procedure were reviewed and informed consent was obtained obtained. Time Out: Prior to the start of the procedure, the patient's identity, intended procedure, site/side, correctpatient positioning and presence of the site jonathan was confirmed as applicable. The medical history and chart were reviewed to rule out potential contraindications to the planned procedure. Hand Hygiene: The lead auditor did perform hand hygiene prior to line insertion. Catheter type: PICC Lot number: [id number] Procedure Technique: Skin was prepped with chlorhexidine. Skin preparation agent was completely dry at the time of first skin puncture. The following barrier precaution methods were used:large sterile drape, maske/eye shield, large sterile gown, sterile gloves, and cap. 3 ml of 1% Lidocaine was used for skin wheal. Ultrasound was used for guidance. Radiographic contrast agent was not injected for vein identification. Procedure Details: Order received for catheter placement. A 4 Fr. single lumen Bard Power catheter was placed into theright basilic vein over a 0.018 inch guidewire using modified seldinger technique and fluoroscopy. Arm circumference was 30 cm at 2 cm above the insertion site. Final catheter length (with trimming): 37 cm Internal: 35 cm External: 2 cm Tip in SVC per [place]. The line was not placed over a guidewire. Post Procedure: Diagnosis: osteo Blood return noted on aspiration of line after placement confirmed. 3 mls of normal saline infused free flowing to gravity via PICC after insertion. Sterile dressing applied: CHG Impregnated Tegaderm. Findings: The patient did tolerate the procedure well. No Complications. 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 I have personally reviewed the image(s) and the resident's interpretation and agree with the findings, Blaze Don MD at 11/25/2023 11:40 AM Thank you for letting us participate in the care of this patient. ??If you are a health care provider and have any questions regarding this report, please contact the number below. ??For patients who have questions please contact the health client care specialist that requested your imaging first. ? Electronically signed by: Blaze Don MD, [facility] ??([phone]), at 11/25/2023 11:40 AM Narrative 11/25/2023 11:40 AM EDT EXAMINATION: XR PICC PLACEMENT OVER 5 YEARS WITH IMAGING GUIDANCE (IV TEAM) CLINICAL HISTORY: Confirmation of PICC placement; IV Antibiotic Therapy TECHNIQUE: C-arm placement of PICC. Limited view of the line tip only. COMPARISON: Chest radiograph 09/13/2018 FINDINGS: Intraprocedural frontal radiograph of the mediastinum demonstrates a right PICC, with the catheter tip projected at the superior cavoatrial junction. Procedure Note Blaze Don MD - 11/25/2023 EXAMINATION: XR PICC PLACEMENT OVER 5 YEARS WITH IMAGING GUIDANCE (IVTEAM) CLINICAL HISTORY: Confirmation of PICC placement; IV Antibiotic Therapy TECHNIQUE: C-arm placement of PICC. Limited view of the line tip only. COMPARISON: Chest radiograph 09/13/2018 FINDINGS: Intraprocedural frontal radiograph of the mediastinumdemonstrates a right PICC, with the catheter tip projected at the superior cavoatrialjunction. IMPRESSION Satisfactory position of right PICC. I have personally reviewed the image(s) and the resident's interpretationand agree with the findings, Blaze Don MD at 11/25/2023 11:40 AM Thank you for letting us participate in the care of this patient. If youare a health care provider and have any questions regarding this report,please contact the number below. For patients who have questions please contactthe health client care specialist that requested your imaging first. 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
--- OUTSIDE RECORDS SUMMARY | 2024-02-09 14:56 | XMS_ITS | Encounter Summary ---
Author Organization [facility] Address [facility] [place] [address] Care Team Providers Care Director Telehealth Name Role Phone None Primary Care Provider Unavailabl e Encounter Details Date Type Department Care Team (Late st Contact Info) Description 12/01/2023 3:38 PM EDT - 12/01/2023 5:23 PM EDT Surgery [place] [id number] Fidel Naranjo MD [facility] [place] [address] EXCISION BENIGN TUMOR OR CYST, MANDIBLE (WRVU 4.91) Social History Tobacco Use Types Packs/Day Years Used Date Smoking Tobacco: Every Day Cigarettes 1 28 Smokeless Tobacco: Never Tobacco Cessation:Ready to Q uit: Not Asked; Counseling Given: Not Answered Comments:Currently using nicotine inhaler to help herself quit (11/08/18) Alcohol Use Standard Drinks/Week Comments Not Currently 0 (1 standard drink = 0.6 oz pur e alcohol) [facility] Utilities Answer Date Recorded In the past 12 months has e [employer], gas, oil, or water [employer] threatened to shut off services in your [...] any time in the past 12 m [facility], were you homeless or living in a penitentiary (including now)? No 11/20/2023 DH IPV Inpatient [...] Sign Reading Time Taken Comments Blood Pressure 138/75 12/01/2023 5:15 PM EDT Pulse 88 12/01/2023 5:15 PM EDT Temperature 36.6 ??C (97.9 ??F) 12/01/2023 5:05 PM ED T Respiratory Rate 16 12/01/2023 5:15 PM EDT Oxygen Saturation 97% 12/01/2023 5:15 PM EDT Inhaled Oxygen Concentration - - Weight 70.8 kg (156 lb) 12/01/2023 3:27 PM EDT Height 156.2 cm (5' 1.5) 12/01/2023 3:27 PM EDT Body Mass Index 29 12/01/2023 3:27 PM EDT documented in this encounter Discharge Instructions * Patient Instructions* Dariana Jane MD - 11/25/2023 9:06 AM EDT Phone call to patient to review the following instructions. Please hold Ozempic for 7 days before surgery. Last dose on 11/18. Please start clear liquid only diet on 11/29. No solid foods. Continue this diet until midnight on 11/29. Clear liquid diet reviewed with patient. The patient acknowledged an understanding of the instructions. Instructions for Patient at Discharge: What to expect: You will have soreness which will improve over the next several days. The area around the incision may be numb. This should recover over the next few months. You may notice a bit of blood in your saliva. That is normal. If you notice oozing from the surgical site, place gauze in that area and bite down for 5 minutes. If bleeding persists present to ED. Medications: Antibiotics - Continue to work with infectious disease regarding your antibiotic plan. If you are having issues with your PICC line please call Infectious Disease: [phone]. Pain Control - use acetaminophen (Tylenol) and/or ibuprofen (Motrin, Advil) as needed. You can take 500 mg to 650 mg of Tylenol every 4-6 hours as needed. Do not exceed 4g acetaminophen per day and do not drink alcohol while taking tylenol. You can also take 400 to 600 mg of Ibuprofen (Motrin,Advil) every 6 hours as needed. Oral Care: For all patients who had major oral surgery, you will be given a script for Peridex Rinse your mouth out well with water after eating, then use the prescription mouthwash (Peridex/Chlorhexidine) every time after eating. You should also use this mouthwash first thing in the morning and just before be dtime. You can get Peridex on the $4 list at [facility]. Activity: A good rule of thumb is if it hurts don't do it. Keep your head elevated when lying flat. No heavy lifting or straining for the next week. No smoking, this is important for wound healing. Diet: Continue to follow a soft diet until follow up. Do not wear your dentures. You should call your doctor if you develop: -Increasing pain and redness -Increasing drainage from the wound -Fever > 38.5Celsius or 101 Fahrenheit -Bleeding Contact: -You can reach [place] [facility] [place] at [phone] for appointment questions. Follow Up: You will need to follow up with Dr. Naranjo. This appointment has been requested. You will be notified once it is scheduled, if you do not already see it below. If you do not hear from us in a timely manner, please call [phone] to receive your date and time. Currently Scheduled Appointments: Future Appointments and Orders Future Appointments and Orders Future Appointments Provider Department Dept Phone 12/08/2023 3:00 PM Alea Bailey APRN Infectious Disease at [facility] Arrive at: Home [phone] Please do not come in for this visit. Your provider will call you at the number you provided. 12/28/2023 2:00 PM Stephenie Moya MD Infectious Disease at [facility] Arrive at: [employer] [facility] [phone] documented in this encounter Medications at Time [...] 1 gram injection solutionIndications: 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,oil heaterman current use of antibiotics Inject 2 g into the vein daily for 36 days. Estimated EOT 12/31/2023 72 each 11/25/2023 12/30/2023 sodium chloride 0.9 %, flush, (BD PosiFlush Normal Saline 0.9) SyringeIndications:O steoma of mandibular condyle,FDC current use of antibiotics Inject 10 mLs into the vein as needed (For Line Patency - See Instructions). FLUSH PROTOCOL WITH MEDICATIONS ([facility]): Before med infusion: flush with NS 10 [...] porcine, 10 unit/mL SolutionIndications: 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,oil heaterman current use of antibiotics Inject 3 mLs [...] 2 mg Recon SolnIndications:Oste cris of mandibular condyle,FDC current use of antibiotics Instill reconstituted alteplase (Cathflo) 2 mg per instillation (based on volume of lumen). May repeat x1 per occlusion 1 each 11/24/2023 12/30/2023 amoxicillin-clavulan ate (Augmentin) 875-125 mg tablet Take 1 tablet by mouth 2 times daily for 14 days. 28 tablet 11/21/2023 12/05/2023 documented as of this encounter H&P Notes * Fidel Naranjo MD - 12/01/2023 2:28 PM EDT OTOLARYNGOLOGY - HEAD & NECK SURGERY INTERVAL H&P NOTE Name: Jenae La Age/Sex: 58 y.o. female Attending: Fidel Naranjo MD Hospital Day: 1 Interval History Jenae La has clinical and radiographic evidence of destructive mandibular process concerningfor osteomyelitis with abscess vs keratocyst vs ameloblastoma. There have been no changes to her history. Physical Exam No data found. Gen: No acute distress, alert and answers questions appropriately CV: Regular rate Pulm: Unlabored breathing Abd: Abdomen soft and non-tender Ext: No peripheral edema ASSESSMENT & PLAN Plan for OR for debridement of mandibular lesion, with cultures, and histologic review. Consent signed, dated, placed in chart. We reviewed the risks, benefits and alternatives to the procedure at length and the patient expressed understanding and agreed to proceed. Ok to proceed with scheduled operation. Dariana Jane MD, PGY4 12/01/2023 2:28 PM Pager #[phone] ENT Team Pager: [phone] Evaluated patient at bedside and agree with note above. Plan will be to debride and removed anterior mandibular lesion. Fidel Naranjo MD documented in this encounter Miscellaneous Notes * Op Note - Fidel Naranjo MD - 12/01/2023 4:10 PM EDT [facility] Operative Note Patient Name: Jenae La : [id number] MR#: [id number] Case Date: 12/01/2023 Preop Diagnosis: Cystic erosive process of anterior mandible Postop Diagnosis: Same Procedure: Debridement of mandibular lesion Surgeon: OZIEL Bell MD Anesthesia: General via nasal endotracheal tube Estimated Blood Loss: 20 mL HPI/Surgical Indications: Jenae La is a 58 y.o. female who presents with clinical and radiographic evidence of cystic lesion involving her anterior mandible thought to be either abscess ISO osteomyelitis vs keratocyst vs ameloblastoma. Plan for debridement of lesion for culture and histopathreview. Findings: Granulation tissue of midline/RIGHT anterior mandibular alveolar ridge overlying area of necrotic bone. Cystic cavity lined with granulation tissue most consistent with periapical granuloma which hasbeen chronically infected ISO dental disease. Debrided down to healthy bleeding bone and soft tissue. Closed with Chromic and Vicryl. Necrotic bone visualized within granulation Specimens removed during surgery: Order Name Source Comment Collection Info Order Time SPECIMEN TO PATHOLOGY Erosive lesion of the mandible Right anterior mandibular lesion excision 12/01/2023 4:30 PM Time specimen removed from patient: 4:29 PM Number of tissue samples (in container) 1 Procedure Description: Patient was brought to the operating room and identified. Time out was performed. Anesthesia was introduced via nasal neda tube. The oropharynx was suctioned and throat pack was placed and was removed at the end of the case. 1% lidocaine with epinephrine 1:100,000 was used for bilateral mandibular block and infiltration and then at the end of the case an additional 10cc of quarter percent Marcaine with without epinephrine was used for bilateral mandibular block and local infiltration. An incision was made with a 15 blade along the RIGHT alveolar ridge around the area of granulation tissue with care to incise healthier appearing mucosa extending over to the the left side with vertical releasing incision in a mental nerve sparing fashion. The mucosa was elevated off of mandible using periosteal elevators. The necrotic cystic area was encountered and debrided with Rongeurs as well as curettes. Granulation tissue was sent for histologic and microbiology review. Debridement was performed down to healthy bleeding tissue. The wound was irrigated with betadine and normal saline and then packed with GelFoam. The incision was reapproximated with interrupted 4-0 vicryl and then a running 3-0 chromic. Patient was turned back to anesthesia. All counts were correct. The patient was awakened, extubatedand brought to the recovery room in satisfactory condition having tolerated the procedure well withminimal blood loss. Dariana Jane MD, PGY4 12/01/2023 4:58 PM Pager #[phone] I was present for the entire procedure and agree with the note above. Fidel Naranjo MD documented in this encounter Plan of Treatment Not on file documented as of this encounter Procedures Procedure Name Priority Date/Time Associated Diagnosis Comments ANAEROBIC CULTURE Routine 12/01/2023 4:3 0 PM EDT HC TISSUE CULTURE Routine 12/01/2023 4:3 0 PM EDT TISSUE CULTURE Routine 12/01/2023 4:30 PM EDT SPECIMEN TO PATHOLOGY Routine 12/01/2023 4:30 PM EDT SURGICAL PATHOLOGY REPORT Routine 12/01/2023 4:29 PM EDT Excision, Benign Tumor, Mandible ([id number]) Yes 12/01/2023 3:43 PM EDT Osteomyelitis of other site, unspecified type EXCISION BENIGN TUMOR OR CYST,MANDIBLE Routine 12/01/2023 2:44 PM EDT Osteomyelitis of other site, unspecified type documented in this encounter Results * Anaerobic Culture (12/01/2023 4:30 PM EDT) Anaerobic Culture No anaerobic organisms isolated [facility] Mandible 12/01/2023 4:30 PM EDT 12/01/2023 5:55 PM EDT Comment:Right anterior camacho bular lesion Narrative Resulting Agency Comment Spec In Lab Fidel Naranjo MD MICROBIOLOGY - GENER AL ORDERABLES Performing Organization Address [facility] de Phone Number [facility] [place] [address] * Tissue culture (12/01/2023 4:30 PM EDT) Tissue Culture No growth [facility] Gram Stain Few Neutrophils seen No microorganisms seen. [facility] Mandible 12/01/2023 4:30 PM EDT 12/01/2023 5:55 PM EDT Comment:Right anterior camacho bular lesion Narrative Resulting Agency Comment Spec In Lab Fidel Naranjo MD MICROBIOLOGY - GENER AL ORDERABLES Performing Organization Address [facility] de Phone Number [facility] [place] [address] * Specimen to Pathology (12/01/2023 4:30 PM EDT) AP Specimen 12/01/2023 4:30 PM EDT 12/01/2023 4:30 PM EDT Narrative [facility] - 12/01/2023 4:30 PM EDT Specimen requisition ordered. ??Separate Pathology report to follow Fidel Naranjo MD PATHOLOGY/CYTOLOGY O RDERABLES Performing Organization Address [facility] [place] [address] * Surgical Pathology Report (12/01/2023 4:29 PM EDT) Surgical Pathology Report [id number] ? Location: [facility]; [id number]; A The signing pathologist has (i) examined the relevant preparation(s) for the specimen(s) and (ii) rendered or confirmed the diagnosis(es). . ?Surgical Pathology DIAGNOSIS A - Right anterior mandibular lesion, excision: - Reactive gingival-type mucosa with granulation tissue. - Osteomyelitis. Electronically signed by: ?Donny Godwin MD Verified: ??12/08/2023 15:59 ??Pathologist Performed at: ??-[facility] Dept. of Pathology, [place] [address] Clerical Aide Teacher: Iman Sutton MD, [facility], ??CLIA Certificate: [id number] DISCUSSION Multiple additional sections were examined. No diagnostic feature of odontogenic keratocyst or ameloblastoma is seen. Selected slides were reviewed and discussed on head/neck pathology consensus conference on 12/08/2023. ADDITIONAL STUDIES GMS stain (histochemical study with appropriate controls) is negative for fungal organisms. SPECIMEN(S) SUBMITTED A - Right anterior mandibular lesion, excision (1) CLINICAL INFORMATION Erosive lesion of the mandible SPECIMEN PROCESSING A - Labeled/Fixative: Right anterior mandibular lesion, fresh. Quantity/Size: Multiple, 2.0 x 2.0 x 0.5 cm. Tissue Description: Aggregate of rubbery pink-white tissue fragments admixed with bone. Sections/Processi ng: Blocks submitted for decalcification: A3. Entirely submitted in 3 cassettes labeled A1-A3. ??sns [facility] 12/01/2023 4:29 PM EDT Fidel Naranjo MD PATHOLOGY/CYTOLOGY O JONY [facility] [place] [address] documented in this encounter Visit Diagnoses Diagnosis Osteomyelitis of other site, unspecified type Osteomyelitis of other site, unspecified type documented in this encounter Administered Medications Inactive Administered Medications - up to 3 most recent administrations Medication Order MAR Action Action Date Dose Rate Site acetaminophen (Tylenol) tablet 975 mg 975 mg, Oral, ONCE, 1 dose, On Thu12/01/23 at 1545, Administer with a SIP of water only. Maximum dose of acetaminophen is 4,000 mg from all sources in 24 hours., Day of Surgery (Day of Procedure), Routine Given 12/01/2023 3:35 PM EDT 975 mg gelatin compressed (Gelfoam) sponge PRN, Starting on Thu12/01/23 at 1644, Until Thu12/01/23 at 2032, Intra-Operative (Intra-Procedure) Given 12/01/2023 4:44 PM EDT 100 cm 19- Surgical Site HYDROmorphone (Dilaudid) (0.2 mg/1 mL) injection syringe 0.4 mg 0.4 mg, Intravenous, EVERY 10 MIN PRN, Starting on Thu12/01/23 at 1708, Until Thu12/01/23 at 1833, Pain, For Moderate to Severe Pain (6-10 out of 10), Hold for respiratory rate less than 10 per minute. Maximum dose 3 mg over one hour including administrations in the OR. If multiple pain medications are ordered, start with HYDROmorphone or morphine and use fentaNYL for breakthrough pain., PACU Recovery, Routine Given 12/01/2023 5:26 PM EDT 0.4 mg lidocaine-EPINEPHrine (1% - 1:100,000) injection PRN, Starting on Thu12/01/23 at 1612, Until Thu12/01/23 at 2032, Intra-Operative (Intra-Procedure), Routine Given 12/01/2023 4:12 PM EDT 7 mLs 19- Surgical Site oxyCODONE (Roxicodone) tablet 5-10 mg 5-10 mg, Oral, EVERY 3 HOURS PRN, Starting on Thu12/01/23 at 1701, Until Thu12/01/23 at 2032, Pain, Give 5 mg for pain 1-5; Give 10 mg for pain 6-10, Routine documented in this encounter Active and Recently Administered Medications Times are shown in EDT. Scheduled Medication Order 11/29/2023 11/30/2023 12/01/2023 acetaminophen (Tylenol) tablet 975 mg (COMPLETED) 975 mg, Oral, ONCE, 1 dose, On Thu12/01/23 at 1545, Administer with a SIP of water only. Maximum dose of acetaminophen is 4,000 mg from all sources in 24 hours., Day of Surgery (Day of Procedure), Routine 1535 (Given - Provid er: Radha iBrmingham RN) PRN Medication Order 11/29/2023 11/30/2023 12/01/2023 gelatin compressed (Gelfoam) sponge (CANCELED) PRN, Starting on Thu12/01/23 at 1644, Until Thu12/01/23 at 2032, Intra-Operative (Intra-Procedure) 1644 (Given - Provid er: Fidel Naranjo MD - Comment: small piece applied at surgical site) HYDROmorphone (Dilaudid) (0.2 mg/1 mL) injection syringe 0.4 mg (CANCELED)(Linked Group 1) 0.4 mg, Intravenous, EVERY 10 MIN PRN, Starting on Thu12/01/23 at 1708, Until Thu12/01/23 at 1833, Pain, For Moderate to Severe Pain (6-10 out of 10), Hold for respiratory rate less than 10 per minute. Maximum dose 3 mg over one hour including administrations in the OR. If multiple pain medications are ordered, start with HYDROmorphone or morphine and use fentaNYL for breakthrough pain., PACU Recovery, Routine 1726 (Given - Provid er: Kyler Silva RN) lidocaine-EPINEPHrine (1% - 1:100,000) injection (CANCELED) PRN, Starting on Thu12/01/23 at 1612, Until Thu12/01/23 at 2032, Intra-Operative (Intra-Procedure), Routine 161 (Given - Provid er: Dariana Jane MD) oxyCODONE (Roxicodone) tablet 5-10 mg 5-10 mg, Oral, EVERY 3 HOURS PRN, Starting on Thu12/01/23 at 1701, Until Thu12/01/23 at 2032, Pain, Give 5 mg for pain 1-5; Give 10 mg for pain 6-10, Routine Linked Groups Order Group 1: HYDROmorphone (Dilaudid) (0.2 mg/1 mL) injection syringe 0.2 mg (CANCELED) 0.2 mg, Intravenous, EVERY 10 MIN PRN, Starting on Thu12/01/23 at 1708, Until Thu12/01/23 at 1833, Pain, For Mild to Moderate Pain (1-5 out of 10), Hold for respiratory rate less than 10 per minute. Maximum dose 3 mg over one hour including administrations in the OR. If multiple pain medications are ordered, start with HYDROmorphone or morphine and use fentaNYL for breakthrough pain., PACU Recovery, Routine Or HYDROmorphone (Dilaudid) (0.2 mg/1 mL) injection syringe 0.4 mg (CANCELED)Jump to med 0.4 mg, Intravenous, EVERY 10 MIN PRN, Starting on Thu12/01/23 at 1708, Until Thu12/01/23 at 1833, Pain, For Moderate to Severe Pain (6-10 out of 10), Hold for respiratory rate less than 10 per minute. Maximum dose 3 mg over one hour including administrations in the OR. If multiple pain medications are ordered, start with HYDROmorphone or morphine and use fentaNYL for breakthrough pain., PACU Recovery, Routine documented in this encounter Care Teams Director Telehealth Relationship Specialty Start Date End Date None None PCP - General 12/01/23 documented as of this encounter
--- OUTSIDE RECORDS SUMMARY | 2024-02-09 14:56 | XMS_ITS | Encounter Summary ---
Author Organization [facility] Address [facility] [place] [address] Care Team Providers Care It Specialist Name Role Phone Unknown Primary Care Provider Unavailabl e Encounter Details Date Type Department Care Team (Late st Contact Info) Description 11/24/2023 Telephone [place] [address] Andra Grady Social History Tobacco Use Types Packs/Day Years Used Date Smoking Tobacco: Every Day Cigarettes 1 Smokeless Tobacco: Never Comments:Currently using kalia otine inhaler to help herself quit (11/08/18) Alcohol Use Standard Drinks/Week Comments Not Currently 0 (1 standard drink = 0.6 oz pur e alcohol) [facility] Utilities Answer Date Recorded In the past 12 months has th e [employer], gas, oil, or water [employer] threatened to shut off services in your [...] any time in the past 12 m [facility], were you homeless or living in [...] encounter Miscellaneous Notes * Telephone Encounter - Andra Grady - 11/24/2023 12:59 PM EDT Livierjanet, Patient is scheduled to have surgery on 12/01/2023 . Follow up appointment is as follows: No follow up indicated in case. Thank you!! documented in this encounter Plan of Treatment Not on file documented as of this encounter Visit Diagnoses Not on filedocumented in this encounter Care Teams It Specialist Relationship Specialty Start Date End Date Unknown None PCP - General 11/20/23 11/30/23 documented as of this encounter
--- OUTSIDE RECORDS SUMMARY | 2024-02-09 14:56 | XMS_ITS | Encounter Summary ---
Author Organization [facility] Address [facility] [place] [address] Care Team Providers Care Quality Systems Engineer Name Role Phone None Primary Care Provider Unavailabl e Encounter Details Date Type Department Care Team (Late st Contact Info) Description 12/28/2023 Notes Only [place] [address] Cindy Lizama RN Social History Tobacco Use Types Packs/Day Years Used Date Smoking Tobacco: Every Day Cigarettes 1 28 Smokeless Tobacco: Never Comments:Currently using kalia otine inhaler to help herself quit (11/08/18) Alcohol Use Standard Drinks/Week Comments Not Currently 0 (1 standard drink = 0.6 oz pur e alcohol) [facility] Utilities Answer Date Recorded In the [...] any time in the past 12 m [facility], were you homeless or living in a halfway (including now)? No 11/20/2023 DH IPV Inpatient [...] Progress Notes * Cindy Lizama RN - 12/28/2023 9:20 AM EDT Infectious Disease/OPAT Program Telephone Note OPAT order: ID Diagnosis: Mandibular osteomyelitis Microorganisms being treated: Strep spp. Antibiotic: Ceftriaxone 2G IV Q24H Start date: 11/19/2023 Anticipated stop date: 12/31/2023 Labs: Q Thursday: CBC/Diff, CMP Labs: Q Thursday Inflammatory CRP Review/Pertinent information: Pt called stating that she cannot make her EOT appt scheduled for 12/[address] Nita Mcnamara/Onofre of money for gas. Pt also reports that her PICC fell out on 12/22 while she was at home. Denies any concerns about previous PICC site, states that it is healing well and barely bled when it was inadvertently removed. Pt reports that she has been taking an old ABX prescription of amox-clav 875/125 MG BID since 12/23 as she was unable to do her IV ABX. States that she has no infection in her mouth per her oral surgery F/U visit on 12/16. F/u: Spoke with Dr. Moya who agreed to see pt vis telehealth. Appt switched and pt was updated. If unable to reach pt, pt requests that her be called at [phone] as she does not have great service where she lives. documented in this encounter Plan of Treatment Not on file documented as of this encounter Visit Diagnoses Not on filedocumented in this encounter Care Teams Quality Systems Engineer Relationship Specialty Start Date End Date None None PCP - General 12/01/23 documented as of this encounter
--- OUTSIDE RECORDS SUMMARY | 2024-02-09 14:56 | XMS_ITS | Encounter Summary ---
Author Organization [facility] Address [facility] [place] [address] Care Team Providers Care Hearing Care Professional Name Role Phone None Primary Care Provider Unavailabl e Encounter Details Date Type Department Care Team (Latest Contact Info) Description 12/28/2023 2:00 PM EDT TH Visit (TeleHealth) Infectious Disease at [facility] [place] [phone] Stephenie Moya MD [facility] [place] [address] 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; senior care current use of antibiotics Social History Tobacco Use Types Packs/Day Years Used Date Smoking Tobacco: Every Day Cigarettes 1 28 Smokeless Tobacco: Never Comments:Currently using kalia otine inhaler to help herself quit (11/08/18) Alcohol Use Standard Drinks/Week Comments Not Currently 0 (1 standard drink = 0.6 oz pur e alcohol) [facility] Utilities Answer Date Recorded In the past 12 months has e [employer], gas, oil, or water [employer] threatened to shut off services in your [...] any time in the past 12 m [facility], were you homeless or living in a nursing home (including now)? No 11/20/2023 DH IPV Inpatient [...] as of this encounter Progress Notes * Stephenie Moya MD - 12/28/2023 2:00 PM EDT INFECTIOUS DISEASE CLINIC NOTE CC: OPAT EOT Interval/Subjective: 58 y.o. female with a history of HTN, chronic back pain, LORRI, DM, tobacco use who prsented on 11/18 due to jaw pain. From initial H&P: This began after treatment for a dental infection in July. After an antibiotic course [amoxicilin], she was referred to a dentist for extraction and ended up having multiple lower teeth removed. Shedeveloped pain in one specific socket and was treated for dry socket after being evaluated at an [facility] site. She had two additional antibiotics courses [augmentin, clindamycin] for non-resolving right lower jaw pain and purulence into her mouth. Ultimately underwent CT scan last Thursday, which was reviewed earlier this week. She was advised that she would probably need to come here for management as I gather this was showing evidence of osteomyelitis. No one was able to arrange for timelyoutpatient facial surgeon evaluation, earliest appt as late November but others were into March. Thus she was advised to come here today for evaluation. VS have been unremarkable but labs notable for WBC 14.[address] face CT was concerning for advanced osteomyelitis of the anterior right mandible. She was evaluated by ENT who recommended IV antibiotics. Labs on admission showed leukocytosis 14,000, creatinine 1.90. She was afebrile and hemodynamicallystable. She was started pip-tazo. She had a swab obtained from expressed fluid which shows GPC's onGram stain. She was subsequently transitioned to ceftriaxone. Due to difficulty with scheduling, patient was discharged on amoxicillin until she received her first dose of ceftriaxone. On 12/27, she called the [facility] office stating that she was not able to make her into therapy appointment due to lack of money for gas. She states that her PICC line fell out on 12/22 and had been taking her old prescription of Augmentin. Appointment via telephone given technology issues. She corroborates what she told the [facility] nurses, she states that she has been tolerating the ceftriaxone other than having some loose stools. She denies any nausea, vomiting, abdominal pain. She states that she had an oral surgery appointment on 12/16 and they noted she had no further infection or purulence during that visit. They recommended to continue her antimicrobial therapy until the end of therapy 12/30. She reports that she is taking the amoxicillin that she was prescribed when she was discharged, and she has been taking it twice daily. She otherwise has no issues. She states that her mouth is feeling much better and she does not note the purulence in her mouth that she had previously described. 10-point review of system: Negative except which is stated above. Medications and Allergies: reviewed and updated in EMR Objective: No physical exam done given telephone visit. Pertinent labs, microbiology, imaging and procedures were reviewed. 11/18 fluid culture Peptostreptococcus micros and strep Milleri Assessment/Plan: 1. 58-year-old female currently on OPAT for osteomyelitis of the right jaw. She has been on ceftriaxone, however has been taking Augmentin since 12/23 given inadvertent removal of her PICC line. Her cultures have now grown Peptostreptococcus and strep, ceftriaxone would not have covered anaerobes, ho wever patient reports improvement in her symptoms and her laboratory studies have been normal, withher CRP normalizing. She will follow-up with oral surgery in a few months following the end of therapy for further evaluation. -Continue amoxicillin/clavulanate 875/125 twice daily until end of therapy 12/30 -Follow-up with oral surgery as scheduled -No need for ID follow-up, can reach out with any questions or concerns Discussed with attending, Dr. Robby Moya MD, MPH Fellow, Infectious Disease * Olga Bustamante MD - 12/28/2023 2:00 PM EDT I personally accompanied Dr. Stephenie Moya as she performed a telemedicine visit with Ms. La. ID Attending I have seen reviewed the fellow's history in her note from 12/29/23 and I agree with the details as written. The assessment and plan were formulated in discussion with me, and I agree with them as documented. DATA REVIEW Category 1: I have reviewed Labs: Lab Results Component Value Date WBC 7.0 11/21/2023 RBC 3.67 (L) 11/21/2023 HGB 11.5 (L) 11/21/2023 HCT 34.7 (L) 11/21/2023 MCV 94.6 (H) 11/21/2023 MCH 31.3 11/21/2023 MCHC 33.1 11/21/2023 PLATELET 247 11/21/2023 RDWCV 12.5 11/21/2023 Micro: reviewed EKG/echo: na Imaging: reviwed External records in - Epic: reviewed - HIGH RISK PROBLEM: Acute or chronic illness or injury that poses a threat to life or bodily function (mandibular osteomyelitis) HIGH RISK MANAGEMENT OPTION: Drug therapy requiring intensive monitoring for toxicity (Ceftriaxone - monitoring drug levels for toxicity, monitoring weekly CBC with differential and CMP) Additional comments: completed therapy without complications. PIC line is out. 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
--- OUTSIDE RECORDS SUMMARY | 2024-02-09 14:56 | XMS_ITS | Encounter Summary ---
Author Organization [facility] Address [facility] [place] [address] Care Team Providers Care Armored Service Technician Name Role Phone Unknown Primary Care Provider Unavailabl e Encounter Details Date Type Department Care Team (Late st Contact Info) Description 11/23/2023 Orders [place] [phone] Dariana Jane MD [facility] [place] [address] Osteomyelitis of other site, unspecified type Social History Tobacco Use Types Packs/Day Years Used Date Smoking Tobacco: Every Day Cigarettes 1 28 Smokeless Tobacco: Never Comments:Currently using kalia otine inhaler to help herself quit (11/08/18) Alcohol Use Standard Drinks/Week Comments Not Currently 0 (1 standard drink = 0.6 oz pur e alcohol) [facility] Utilities Answer Date Recorded In the past 12 months has e [employer], gas, oil, or water [employer] threatened to shut off services in your [...] any time in the past 12 m [facility], were you homeless or living in a prison (including now)? No 11/20/2023 DH IPV Inpatient [...] as of this encounter Visit Diagnoses Diagnosis Osteomyelitis of other site, unspecified type documented in this encounter Care Teams Armored Service Technician Relationship Specialty Start Date End Date Unknown None PCP - General 11/20/23 11/30/23 documented as of this encounter
--- OUTSIDE RECORDS SUMMARY | 2024-02-09 14:56 | XMS_ITS | Encounter Summary ---
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 No 11/20/2023 DH IPV Inpatient [...] on file documented as of this encounter Results * XR PICC Placement Over 5 Years with Imaging Guidance (IV Team) (11/25/2023 9:58 AM EDT) ScriptPad Signature WORKSTATION ID [id number] RAD Anatomical Region Laterality Modality N/A Radio [...] who have questions please contact the health home care music therapist that requested your imaging first. ? Electronically signed by: Blaze Don MD, [facility] ??([phone]), at 11/25/2023 11:40 AM Narrative 11/25/2023 11:40 [...] patients who have questions please contactthe health home care music therapist that requested your imaging first. Juan Yo MD IMG FLUORO ORDERABL ES documented in this encounter Visit Diagnoses Diagnosis 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 [facility] current use of antibiotics Encounter for long-term (current) use of antibiotics 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 [facility] current use of antibiotics Encounter for long-term (current) use of antibiotics documented in this encounter Care Teams Energy Advisor Relationship Specialty Start Date End Date None None PCP - General 12/01/23 documented as of this encounter
--- OUTSIDE RECORDS SUMMARY | 2024-02-09 14:56 | XMS_ITS | Encounter Summary ---
Author Organization [facility] Address [facility] [place] [address] Care Team Providers Care Internet Marketing Manager Name Role Phone Unknown Primary Care Provider Unavailabl e Encounter Details Date Type Department Care Team (Latest Contact Info) Description 11/25/2023 Travel Social History Tobacco Use Types Packs/Day Years Used Date Smoking Tobacco: Every Day Cigarettes 1 28 Smokeless Tobacco: Never Comments:Currently using kalia otine inhaler to help herself quit (11/08/18) Alcohol Use Standard Drinks/Week Comments Not Currently 0 (1 standard drink = 0.6 oz pur e alcohol) [facility] Utilities Answer Date Recorded In [...] time in the past 12 m [facility], were you homeless or living in a assisted (including now)? No 11/20/2023 DH IPV Inpatient [...] on filedocumented in this encounter Care Teams Internet Marketing Manager Relationship Specialty Start Date End Date Unknown None PCP - General 11/20/23 11/30/23 documented as of this encounter
--- OUTSIDE RECORDS SUMMARY | 2024-02-09 14:56 | XMS_ITS | Encounter Summary ---
Author Organization [facility] [place] [address] Care Team Providers Care Wall Scraper Name Role Phone None Primary Care Provider Unavailabl e Encounter Details Date Type Department Care Team (Late st Contact Info) Description 12/10/2023 Telephone [place] [address] Juliann Patino Social History Tobacco Use Types Packs/Day Years Used Date Smoking Tobacco: Every Day Cigarettes 1 Smokeless Tobacco: Never Comments:Currently using kalia otine inhaler to help herself quit (11/08/18) Alcohol Use Standard Drinks/Week Comments Not Currently 0 (1 standard drink = 0.6 oz pur e alcohol) [facility] Utilities Answer Date Recorded In the past 12 months has th e [employer], gas, oil, or water [email or web address] threatened to shut off services in your [...] any time in the past 12 m [facility], were you homeless or living in a [...] on filedocumented in this encounter Care Teams Wall Scraper Relationship Specialty Start Date End Date None None PCP - General 12/01/23 documented as of this encounter
--- OUTSIDE RECORDS SUMMARY | 2024-02-09 14:56 | XMS_ITS | Encounter Summary ---
Author Organization [facility] Address [facility] [place] [address] Care Team Providers Care Script Girl Name Role Phone Unknown Primary Care Provider Unavailabl e Encounter Details Date Type Department Care Team (Late st Contact Info) Description 11/23/2023 Notes Only Infectious Disease [facility] [place] [address] Stephenie Moya MD [facility] [place] [address] Social History Tobacco Use Types Packs/Day Years Used Date Smoking Tobacco: Every Day Cigarettes 1 28 Smokeless Tobacco: Never Comments:Currently using kalia otine inhaler to help herself quit (11/08/18) Alcohol Use Standard Drinks/Week Comments Not Currently 0 (1 standard drink = 0.6 oz pur e alcohol) [facility] Utilities Answer Date Recorded In the [...] were you homeless or living in a snf (including now)? No 11/20/2023 IPV Inpatient Questions Answer Date Recorded Does [...] Progress Notes * Stephenie Moya MD - 11/23/2023 11:52 AM EDT OPAT INTAKE: mandibular osteomyelitis. Antibiotic Type: IV, Organism(s): Strep species, Antibiotic(s) being taken: Ceftriaxone (2g q24hr) With a start date of 11/19/2023, and anticipated end date of 12/31/2023. Desired labs: CBC w/diff, CMP and CRP. Lab frequency: Weekly Other: Desired timing of end of therapy appointment: Week of: 12/28/2023. Preferred provider for end of therapy visit: [facility], or any available documented in this encounter Plan of Treatment Not on file documented as of this encounter Visit Diagnoses Not on filedocumented in this encounter Care Teams Script Girl Relationship Specialty Start Date End Date Unknown None PCP - General 11/20/23 11/30/23 documented as of this encounter
--- OUTSIDE RECORDS SUMMARY | 2024-02-09 14:56 | XMS_ITS | Encounter Summary ---
Author Organization [facility] Address [facility] [place] [address] Care Team Providers Care General Road Foreman Name Role Phone Unknown Primary Care Provider Unavailabl e Encounter Details Date Type Department Care Team (Late st Contact Info) Description 11/25/2023 11:30 AM EDT Clinical Support [place] [address] Social History Tobacco Use Types Packs/Day Years Used Date Smoking Tobacco: Every Day Cigarettes 1 28 Smokeless Tobacco: Never Comments:Currently using kalia otine inhaler to help herself quit (11/08/18) Alcohol Use Standard Drinks/Week Comments Not Currently 0 (1 standard drink = 0.6 oz pur e alcohol) [facility] Utilities Answer Date Recorded In the past 12 months has th e [employer], gas, oil, or water [employer] threatened to shut off services in your [...] time in the past 12 m [facility], were you homeless or living in a fdc (including now)? No 11/20/2023 DH IPV Inpatient [...] on filedocumented in this encounter Care Teams General Road Foreman Relationship Specialty Start Date End Date Unknown None PCP - General 11/20/23 11/30/23 documented as of this encounter
--- OUTSIDE RECORDS SUMMARY | 2024-02-09 14:56 | XMS_ITS | Encounter Summary ---
Author Organization [facility] Address [facility] [place] [address] Care Team Providers Care Qa Tester Name Role Phone Unknown Primary Care Provider Unavailabl e Encounter Details Date Type Department Care Team (Late st Contact Info) Description 11/23/2023 Orders [place] [address] [facility] [place] [address] Social History Tobacco Use Types Packs/Day Years Used Date Smoking Tobacco: Every Day Cigarettes 1 28 Smokeless Tobacco: Never Comments:Currently using kalia otine inhaler to help herself quit (11/08/18) Alcohol Use Standard Drinks/Week Comments Not Currently 0 (1 standard drink = 0.6 oz pur e alcohol) [facility] Utilities Answer Date Recorded In the past [...] any time in the past 12 m [facility], were you homeless or living in a residential (including now)? No 11/20/2023 DH IPV Inpatient [...] on filedocumented in this encounter Care Teams Qa Tester Relationship Specialty Start Date End Date Unknown None PCP - General 11/20/23 11/30/23 documented as of this encounter
--- OUTSIDE RECORDS SUMMARY | 2024-02-09 14:56 | XMS_ITS | Encounter Summary ---
Author Organization [facility] [place] [address] Care Team Providers Care Adjunct Instructor Name Role Phone None Primary Care Provider Unavailabl e Encounter Details Date Type Department Care Team (Late st Contact Info) Description 12/22/2023 Telephone [place] [address] Juliann Patino Social History Tobacco Use Types Packs/Day Years Used Date Smoking Tobacco: Every Day Cigarettes 1 Smokeless Tobacco: Never Comments:Currently using kalia otine inhaler to help herself quit (11/08/18) Alcohol Use Standard Drinks/Week Comments Not Currently 0 (1 standard drink = 0.6 oz pur e alcohol) [facility] Utilities Answer Date Recorded In the past 12 months has th e [employer], gas, oil, or water [employer] threatened to shut off services in your [...] any time in the past 12 m [facility], were you homeless or living in [...] on filedocumented in this encounter Care Teams Adjunct Instructor Relationship Specialty Start Date End Date None None PCP - General 12/01/23 documented as of this encounter
--- OUTSIDE RECORDS SUMMARY | 2024-02-09 14:56 | XMS_ITS | Encounter Summary ---
Author Organization [facility] Address [facility] [place] [address] Care Team Providers Care Furniture Rental Consultant Name Role Phone None Primary Care Provider Unavailabl e Encounter Details Date Type Department Care Team (Late st Contact Info) Description 12/09/2023 1:00 PM EDT TH Visit (TeleHealth) Infectious Disease at [facility] [place] [phone] Alea Bailey APRN [facility] [place] [address] Osteomyelitis of mandible; 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; 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 No 11/20/2023 IPV Inpatient Questions [...] as of this encounter Progress Notes * Alea Bailey, TAP GRINDER - 12/09/2023 1:00 PM EDTSummary: ID OPAT interim visit ..INFECTIOUS DISEASE CLINIC - OUTPATIENT FOLLOW UP Chief Complaint: Mandibular Osteomyelitis Microorganism(s): Streptococcus milleri Antimicrobial Therapy: Ceftriaxone 2 gm IV daily History of Present Illness: Jenae La is a 58 y.o. female smoker with PMH of HTN, chronic back pain, LORRI, T2DM, and tobacco use disorder who was admitted 11/19 - 11/21/2023 for mandibular Osteomyelitis. Per chart, CT face w/contrast done 11/19/2023 showed advanced Osteomyelitis of the anterior R mandible. Cultures from expressed fluid 11/19/2023 grew Streptococcus milleri. ID was consulted for antibiotic guidance and management and recommended a 6-week course of IV parenteral therapy with Ceftriaxone 2 gm IV daily. Patient was pending discharge, thus was bridged with Amoxicillin/clavulanate 875/125 mg PO bid until PICC line placement GABRIELA and initiation of IV therapy 11/25/2023. Patient presents today, via Telephone, for her ID interim visit to evaluate her progress and response to long-term IV antimicrobial therapy. A Telehealth visit was planned, however, patient does not have the technology to support that today. ROS: Patient states she is doing, o.k., since discharge DH. My mouth is really sore. Patient states she is using tea bags and rinsing her mouth with the medicated mouthwash in addition to taking Tylenol 3-4 x per day. It hurts to yawn. Patient states she has occasional bleeding and some swelling. She states she has follow up with her surgeon next week. Patient states she is actually eating well, chewing on the L side of her mouth only. She also states she is drinking plenty of fluids. Ms. La reports her PICC line GABRIELA is working well and there are no issues with medication infusions. She denies redness, swelling, pain, or discharge at the PICC site. In addition, patient: Denies fevers, chills, night sweats, headache, dizziness Denies chest pain, palpitations Denies shortness of breath, cough Denies abdominal pain, nausea/vomiting, constipation/diarrhea Denies hematuria, dysuria Denies rash Medications: Current Outpatient Medications Medication Sig Note Dispense Refill acetaminophen (Tylenol) 500 mg tablet Take 1,000 mg by mouth every 6 hours as needed for Pain. AMLODIPINE BESYLATE, BULK, MISC 2.5 mg by Misc.(Non-Drug; Combo Route) route daily. chlorhexidine (Peridex) 0.12 % Mouthwash Use 15 mL every day in the AM after waking up, before bedtime in the PM and after each meal. 473 mL 0 cefTRIAXone (Rocephin) 1 gram injection solution Inject 2 g into the vein daily for 36 days. Estimated EOT 12/31/2023 72 each 0 sodium chloride 0.9 %, flush, (BD PosiFlush Normal Saline 0.9) Syringe Inject 10 mLs into the vein as [...] FLUSH WITHOUT MEDICATION: Twice Daily & PRN: flushwith NS 10 mL and then heparin (10 units/mL) 3 mL 100 each PRN heparin flush, porcine, 10 unit/mL Solution Inject 3 mLs into the vein as needed (For Line Patency - See Instructions). FLUSH PROTOCOL WITH MEDICATIONS (SASH): Before med infusion: flush with NS 10 mL. After med infusion: flush with NS 10 mL then heparin (10 units/mL) 3 mL. Additional Lumens: flushtwice daily & PRN with NS 10 mL and then heparin (10 units/mL) 3 mL. // WITH BLOOD WITHDRAWAL: B efore blood draw: flush with NS 10 mL. After blood draw: flush with NS 20 mL and then heparin (10 units/mL) 3 mL. // FLUSH WITHOUT MEDICATION: Twice Daily & PRN: flush with NS 10 mL and then heparin (10 units/mL) 3 mL 100 each PRN alteplase (Cathflo) 2 mg Recon Soln Instill reconstituted alteplase (Cathflo) 2 mg per instillation(based on volume of lumen). May repeat x1 per occlusion 1 each PRN morphine IR (MS IR) 15 mg IR tablet Take 0.5 tablets by mouth every 4 hours as needed for Pain. (Patient not taking: Reported on 12/17/2023) 25 tablet 0 celecoxib (CeleBREX) 100 mg capsule Take 100 mg by mouth 2 times daily. cloNIDine (Catapres) 0.1 mg tablet Take 0.05 mg by mouth daily. Indications: change of life signs doxepin (SINEquan) 10 mg capsule Take 10 mg by mouth nightly. ezetimibe (Zetia) 10 mg tablet Take 10 mg by mouth daily. famotidine (Pepcid) 20 mg tablet Take 20 mg by mouth nightly. losartan (Cozaar) 50 mg tablet Take 100 mg by mouth daily. meclizine (Antivert) 25 mg tablet Take 1 tablet by mouth 3 times daily as needed for Nausea. Indications: prevention of motion sickness montelukast (Singulair) 10 mg tablet Take 10 mg by mouth daily. omeprazole (PriLOSEC) [address] capsule Take 20 mg by mouth every morning. Ozempic 0.25 mg or 0.5 mg (2 mg/3 mL) Pen Injector Inject 0.25 mg subcutaneously once a week. 11/25/2023: Takes on simvastatin (Zocor) 40 mg tablet Take 1 tablet by mouth daily. traMADoL (Ultram) 50 mg tablet Take 50 mg by mouth every 8 hours as needed for Pain. zolpidem (Ambien) 10 mg tablet Take 10 mg by mouth nightly as needed for Sleep. baclofen (Lioresal) 10 mg tablet Take 1 tablet by mouth Three Times Daily for DHE. Allergies: Allergies Allergen Reactions Bee Sting [Hymenoptera Allergenic Extract] Other (See Comments) Swelling Sulfa (Sulfonamide Antibiotics) Tape, Occlusive Adhesive Past Medical History: Diagnosis Date Arthritis Chronic pain 09/15/2018 Gastroesophageal reflux 09/15/2018 Hyperlipidemia 09/15/2018 Hypertension 09/15/2018 LORRI on CPAP 09/15/2018 Type 2 diabetes mellitus without complication, with long-term current use of insulin 09/15/2018 Physical Exam: General: Patient evaluated via Telephone in no distress. Alert and oriented, pleasant Pulmonary: Non-labored respirations. No audible wheezing Neuro: Alert and oriented to person, place, time, and situation. No dysarthria Psych: Normal affect Labs: 11/30/2023: WBC = 9.68, Hb = 13.2, Plts = 287 BUN = 14, creatinine = 0.8 ALT = 28, AST = 19 CRP = 10.2 mg/L Lab Results Component Value Date WBC 7.0 11/21/2023 HGB 11.5 (L) 11/21/2023 HCT 34.7 (L) 11/21/2023 MCV 94.6 (H) 11/21/2023 PLATELET 247 11/21/2023 Lab Results Component Value Date NA 143 11/21/2023 K 3.6 11/21/2023 CL 111 (H) 11/21/2023 CO2 22 11/21/2023 BUN 15 11/21/2023 CREATININE 0.93 11/21/2023 GLUCOSE 113 11/21/2023 CALCIUM 8.4 (L) 11/21/2023 ESTGFR 72 11/21/2023 Microbiology: Reviewed Imaging: Reviewed Assessment: From an ID perspective, the patient is doing well AEB no s/s infection (F/C, night sweats, headaches, dizziness, poor appetite, malaise, etc), no leukocytosis, and CRP = 10.2 mg/L this week. In addition, patient is tolerating long-term IV antimicrobial therapy well AEB no SEs and stable lab work. Patient has an EOT appointment scheduled with ID Fellow, Dr. Moya, 12/28/2023. Projected end date for IV antibiotic therapy is 12/31/2023. Plan: Continue Ceftriaxone 2 gm IV daily Continue weekly lab work: CBC w/diff, CMP, and CRP EOT visit is scheduled Patient's ID Attending, Dr. Yo, apprised of above I spent a total of 30 minutes with the patient, including my review of medical records prior to thevisit, clinical decision making, coordination of care and documentation. 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
--- OUTSIDE RECORDS SUMMARY | 2024-02-09 14:56 | XMS_ITS | Encounter Summary ---
Author Organization [facility], [facility]1983 Address [facility] [place] [address] Care Team Providers Care Competitive Intelligence Manager Name Role Phone None Primary Care Provider Unavailabl e Encounter Details Date Type Department Care Team (Latest Contact Info) Description 12/01/2023 2:08 PM EDT - 12/01/2023 6:33 PM EDT Hospital En[place] [phone] Fidel Naranjo MD [facility] [place] [address] Osteomyelitis of other site, unspecified type Discharge Disposition: Home Social History Tobacco Use Types Packs/Day Years Used Date Smoking Tobacco: Every Day Cigarettes 1 28 Smokeless Tobacco: Never Tobacco Cessation:Ready to Q uit: Not Asked; Counseling Given: Not Answered Comments:Currently using nicotine inhaler to help herself quit (11/08/18) Alcohol Use Standard Drinks/Week Comments Not Currently 0 (1 standard drink = 0.6 oz pur e alcohol) [facility] Utilities Answer Date Recorded In the past 12 months has e [employer], gas, oil, or water [employer] threatened to shut off services in [...] any time in the past 12 m [facility], were you homeless or living in a custodial (including now)? No 11/20/2023 DH IPV Inpatient [...] Sign Reading Time Taken Comments Blood Pressure 126/73 12/01/2023 6:10 PM EDT Pulse 76 12/01/2023 5:45 PM EDT Temperature 36.3 ??C (97.3 ??F) 12/01/2023 6:10 PM ED T Respiratory Rate 15 12/01/2023 5:45 PM EDT Oxygen Saturation 96% 12/01/2023 6:10 PM EDT Inhaled Oxygen Concentration - - [...] your PICC line please call Infectious Disease: [phone]. Pain Control - use acetaminophen (Tylenol) and/or [...] get Peridex on the $[address] [facility] [place]. Activity: A good rule of thumb is [...] Fahrenheit -Bleeding Contact: -You can reach the [facility] clinic at [phone] for appointment questions. Follow Up: You will need to follow up with Dr. Naranjo. This appointment has been requested. You will be notified once it is scheduled, if you do not already see it below. If you do not hear from us in a timely manner, please call to receive your date and time. Currently Scheduled Appointments: Future Appointments and Orders Future Appointments and Orders Future Appointments Provider Department Dept Phone 12/08/2023 3:00 PM Alea Bailey APRN Infectious Disease at [facility] [place] [place] Arrive at: Home [phone] Please do not come in for this visit. Your provider will call you at the number you provided. 12/28/2023 2:00 PM Stephenie Moya MD Infectious Disease at [facility] [place] [place] Arrive at: [place] [phone] documented in this encounter Medications at Time [...] 1 gram injection solutionIndications: 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,snf current use of antibiotics Inject 2 g into the vein daily for 36 days. Estimated EOT 12/31/2023 72 each 11/25/2023 12/30/2023 sodium chloride 0.9 %, flush, (BD PosiFlush Normal Saline 0.9) SyringeIndications:O steoma of mandibular condyle,snf current use of antibiotics Inject 10 mLs into the vein as needed (For Line Patency - See Instructions). 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 Plan will be to debride and removed anterior mandibular lesion. Fidel Naranjo MD documented in this encounter Miscellaneous Notes * Op Note - Fidel Naranjo MD - 12/01/2023 4:10 PM EDT [facility] [place] [place] Operative Note Patient Name: Jenae La : [id number] MR#: [id number] Case Date: 12/01/2023 Preop Diagnosis: Cystic erosive [...] Jane MD, PGY4 12/01/2023 4:58 PM Pager #[phone] I was present for the entire procedure [...] 4:29 PM EDT Excision, Benign Tumor, Mandible ([id number]) Yes 12/01/2023 3:43 PM EDT Osteomyelitis of other site, unspecified type EXCISION BENIGN TUMOR OR CYST,MANDIBLE Routine 12/01/2023 2:44 PM EDT Osteomyelitis of other site, unspecified type documented in this encounter Results * Anaerobic Culture (12/01/2023 4:30 PM EDT) Anaerobic Culture No anaerobic organisms isolated [facility] Mandible 12/01/2023 4:30 PM EDT 12/01/2023 5:55 PM EDT Comment:Right anterior camacho bular lesion Narrative Resulting Agency Comment Spec In Lab Fidel Naranjo MD MICROBIOLOGY - GENER AL ORDERABLES Performing Organization Address [facility] de Phone Number [facility] [place] [address] * Tissue culture (12/01/2023 4:30 PM EDT) Tissue Culture No growth [facility] Gram Stain Few Neutrophils seen No microorganisms seen. [facility] Mandible 12/01/2023 4:30 PM EDT 12/01/2023 5:55 PM EDT Comment:Right anterior camacho bular lesion Narrative Resulting Agency Comment Spec In Lab Fidel Naranjo MD MICROBIOLOGY - GENER AL ORDERABLES Performing Organization Address [facility] de Phone Number [facility] [place] [address] * Specimen to Pathology (12/01/2023 4:30 PM EDT) AP Specimen 12/01/2023 4:30 PM EDT 12/01/2023 4:30 PM EDT Narrative [facility] - 12/01/2023 4:30 PM EDT Specimen requisition ordered. ??Separate Pathology report to follow Fidel Naranjo MD PATHOLOGY/CYTOLOGY O RDERABLES Performing Organization Address [facility] [address] * Surgical Pathology Report (12/01/2023 4:29 PM EDT) Surgical Pathology Report [id number] ? Location: [facility]; SD41; A The signing pathologist has (i) examined the relevant preparation(s) for the specimen(s) and (ii) rendered or confirmed the diagnosis(es). . ?Surgical Pathology DIAGNOSIS A - Right anterior mandibular lesion, excision: - Reactive gingival-type mucosa with granulation tissue. - Osteomyelitis. Electronically signed by: ?Donny Godwin MD Verified: ??12/08/2023 15:59 ??Pathologist Performed at: ??-[facility] [place] [place] Dept. of Pathology, [place] [address] Hospital Corpsman: Iman Sutton MD, AP, ??CLIA Certificate: [id number] DISCUSSION Multiple additional sections were examined. No [...] submitted in 3 cassettes labeled A1-A3. ??sns [facility] 12/01/2023 4:29 PM EDT Fidel Naranjo MD PATHOLOGY/CYTOLOGY O JONY [facility] [place] [address] documented in this encounter Visit Diagnoses Diagnosis [...] Given 12/01/2023 3:35 PM EDT 975 mg HYDROmorphone (Dilaudid) (0.2 mg/1 mL) injection syringe [...] Given 12/01/2023 5:26 PM EDT 0.4 mg oxyCODONE (Roxicodone) tablet 5-10 mg 5-10 mg, Oral, EVERY 3 HOURS PRN, Starting on Thu12/01/23 at 1701, Until Thu12/01/23 at 203, Pain, Give 5 mg for pain 1-5; [...] Routine 1535 (Given - Provid er: Radha Birmingham RN) PRN Medication Order 11/29/2023 11/30/2023 12/01/2023 gelatin compressed (Gelfoam) sponge (CANCELED) PRN, Starting on Thu12/01/23 at 1644, Until Thu12/01/23 at 2033, Intra-Operative (Intra-Procedure) 1644 (Given - Provid er: [...] on Thu12/01/23 at 1612, Until Thu12/01/23 at 2033, Intra-Operative (Intra-Procedure), Routine 1612 (Given - Provid er: Dariana Jane MD) oxyCODONE (Roxicodone) tablet 5-10 mg 5-10 mg, Oral, EVERY 3 HOURS PRN, Starting on Thu12/01/23 at 1701, Until Thu12/01/23 at 2033, Pain, Give 5 mg for pain 1-5; [...] Routine documented in this encounter Care Teams Competitive Intelligence Manager Relationship Specialty Start Date End Date None None PCP - General 12/01/23 documented as of this encounter
--- OUTSIDE RECORDS SUMMARY | 2024-02-09 14:56 | XMS_ITS | Encounter Summary ---
Author Organization [facility] [place] [address] Care Team Providers Care Division Manager Name Role Phone None Primary Care Provider Unavailabl e Encounter Details Date Type Department Care Team (Late st Contact Info) Description 12/24/2023 Telephone [place] [phone] Fabiana Bates LNA Social History Tobacco Use Types Packs/Day Years Used Date Smoking Tobacco: Every Day Cigarettes 1 28 Smokeless Tobacco: Never Comments:Currently using kalia otine inhaler to help herself quit (11/08/18) Alcohol Use Standard Drinks/Week Comments Not Currently 0 (1 standard drink = 0.6 oz pur e alcohol) [facility] Utilities Answer Date Recorded In the past 12 months has th e electric, gas, oil, or water [employer] threatened to shut off services in your [...] any time in the past 12 m [facility], were you homeless or living in [...] on filedocumented in this encounter Care Teams Division Manager Relationship Specialty Start Date End Date None None PCP - General 12/01/23 documented as of this encounter
--- OUTSIDE RECORDS SUMMARY | 2024-02-09 14:56 | XMS_ITS | Encounter Summary ---
Author Organization [facility] [place] [address] Care Team Providers Care Coal Handling Supervisor Name Role Phone Unknown Primary Care Provider Unavailabl e Reason for Visit * Treatment/Therapy Plan Authorization (Routine) - Authorized Specialty Diagnoses / Procedures Referred By Contac t Referred To Contact Diagnoses Osteomyelitis, unspecified site, unspecified type Procedures TC CEFTRIAXONE, 250MG, INJECTION (ROCEPHIN) Juan Yo MD [facility] [place] [address] [facility] Med Infusion [address] [place] [phone] Referral ID Status Reason Start Date Expiration Date V isits Requested Visits Authorized [id number] Authorized 11/23/2023 11/22/2024 99 99 Encounter Details Date Type Department Care Team (Latest Contact Info) Description 11/25/2023 11:50 AM EDT - 11/25/2023 11:59 PM EDT Hospital En[place] [address] Osteomyelitis, unspecified site, unspecified type Discharge Disposition: Home Social History Tobacco Use Types Packs/Day Years Used Date Smoking Tobacco: Every Day Cigarettes 06 21 Smokeless Tobacco: Never Comments:Currently using kalia otine inhaler to help herself quit (11/08/18) Alcohol Use Standard Drinks/Week Comments Not Currently 0 (1 standard drink = 0.6 oz pur e alcohol) [facility] Utilities Answer Date Recorded In the past 12 months has [employer], gas, oil, or water company threatened [...] Sign Reading Time Taken Comments Blood Pressure 132/73 11/25/2023 11:57 AM EDT Pulse 68 11/25/2023 11:57 AM EDT Temperature 36.1 ??C (97 ??F) 11/25/2023 11: 57 AM EDT Respiratory Rate 16 11/25/2023 11:5 7 AM EDT Oxygen Saturation 100% 11/25/2023 11: 57 AM EDT Inhaled Oxygen Concentration - - Weight 71.6 kg (157 lb 12.8 oz) 024 11:57 AM EDT Height - - Body Mass Index 29.83 11/20/2023 3:00 AM EDT documented in this encounter Medications at Time [...] 1 gram injection solutionIndications: 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,residential current use of antibiotics Inject 2 g into the vein daily for 36 days. 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 FLUSH PROTOCOL WITH MEDICATIONS ([facility]): Before med infusion: flush with NS 10 [...] porcine, 10 unit/mL SolutionIndications: 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,residential current use of antibiotics Inject 3 mLs into the vein as needed (For Line Patency - See Instructions). FLUSH PROTOCOL WITH MEDICATIONS ([facility]): Before med infusion: flush with NS 10 [...] 2 mg Recon SolnIndications:Oste cris of mandibular condyle,long term care phlebotomist current use of antibiotics Instill reconstituted alteplase (Cathflo) 2 mg per instillation (based on volume of lumen). May repeat x1 per occlusion 1 each 11/24/2023 12/30/2023 amoxicillin-clavulan ate (Augmentin) 875-125 mg tablet Take 1 tablet by mouth 2 times daily for 14 days. 28 tablet 11/21/2023 12/05/2023 documented as of this encounter Progress Notes * Raquel Carreon, RN - 11/25/2023 12:20 PM EDT INFUISION THERAPY ADMINISTRATION NOTES DIAGNOSIS: The encounter diagnosis was Osteomyelitis, unspecified site, unspecified type. REASON FOR VISIT: Ceftriaxone (initial dose) Allergies Allergen Reactions Bee Sting [Hymenoptera Allergenic Extract] Other (See Comments) Swelling Sulfa (Sulfonamide Antibiotics) Tape, Occlusive Adhesive SUBJECTIVE: Jenae offers no complaints. OBJECTIVE: Jenae has received this drug in the past without issue. [facility] here for teaching with patient and . VITAL SIGNS: BP 132/73 (BP Location (NBP): Left arm, Patient Position: Sitting, BP Cuff Sizes: Adult (25-34 cm)) Pulse 68 Temp 36.1 ??C (97 ??F) (Temporal) Resp 16 Wt 71.6 kg (157 lb 12.8 oz) SpO2 100% BMI 29.83 kg/m?? IF PAIN >5, INTERVENTION AND EFFECTIVENESS: N/A LAB DATA: No results found for this or any previous visit (from the past 24 hour(s)). IV ACCESS: PICC Line 11/25/23 1021 Single Lumen 4 Fr basilic vein (medial side of arm), right (Active) External Catheter Length (cm) 2 11/25/23 1021 Site Preparation/Maintenance site cleansed: chlorhexidine solution;dressing: dry and intact;dressing: CHG gel;dressing: transparent semipermeable applied 11/25/23 1021 Dressing change due 12/02/23 11/25/23 1021 Securement catheter stabilization device, secured with 11/25/23 1021 Patency/Maintenance flushed without difficulty;alcohol impregnated cap applied;blood return, able to obtain 11/25/23 1021 Phlebitis 0-->no symptoms 11/25/23 1021 Infiltration 0-->no symptoms 11/25/23 1021 HYDRATION: RATE, START TIME, STOP TIME N/A Patient identification and orders checked against actual dose given at bedside by Raquel Carreon,CUSTOM DESIGNER/TREATMENT: DOSE, ROUTE, START TIME, STOP TIME: cefTRIAXone 2 g Intravenous Once ### Administration times: 1214 to 1244 REACTIONS (DESCRIPTION, TIME, INTERVENTION AND EFFECTIVENESS): None. ASSESSMENT: Awake and alert - tolerated treatment well. PLAN: [facility] nurse Miguel here and provided teaching to Jenae and spouse. Will be continuing antibiotics at home. documented in this encounter Plan of Treatment Not on file documented as of this encounter Visit Diagnoses Diagnosis Osteomyelitis, unspecified site, unspecified type documented in this encounter Administered Medications Inactive Administered Medications - up to 3 most recent administrations Medication Order MAR Action Action Date Dose Rate Site cefTRIAXone (Rocephin) 2 g vial attach to sodium chloride 0.9% 50 mL Mini-Bag Plus 2 g, Intravenous, ONCE, 1 dose, On Thu11/25/23 at 1100, Administer over 30 Minutes, Indication for (Active or Suspected): Bone/Joint New Bag 11/25/2023 12:14 PM EDT 2 g 100 mL/ hr documented in this encounter Care Teams Coal Handling Supervisor Relationship Specialty Start Date End Date Unknown None PCP - General 11/20/23 11/30/23 documented as of this encounter
--- OUTSIDE RECORDS SUMMARY | 2024-02-09 14:56 | XMS_ITS | Encounter Summary ---
Author Organization [facility] Address [facility] [place] [address] Care Team Providers Care Shrink Pit Supervisor Name Role Phone None Primary Care Provider Unavailabl e Encounter Details Date Type Department Care Team (Late st Contact Info) Description 12/17/2023 8:00 AM EDT Office Visit [place] [phone] Delvin Church PA [facility] [place] [address] Osteomyelitis, unspecified site, unspecified type Social History Tobacco Use Types Packs/Day Years Used Date Smoking Tobacco: Every Day Cigarettes 1 28 Smokeless Tobacco: Never Comments:Currently using kalia otine inhaler to help herself quit (11/08/18) Alcohol Use Standard Drinks/Week Comments Not Currently 0 (1 standard drink = 0.6 oz pur e alcohol) [facility] Utilities Answer Date Recorded In the past 12 months has e [employer], gas, oil, or water [employer] threatened to shut off services in your [...] any time in the past 12 m [facility], were you homeless or living in [...] as of this encounter Progress Notes * Delvin Church PA - 12/17/2023 8:00 AM EDT Images from the original note were not included. [facility] OUTPATIENT CLINIC FOLLOW-UP VISIT Name: Jenae La Age/Sex: 58 y.o. female History of Present Illness Jenae La is a 58 y.o. female seen for follow-up s/p debridement of erosive lesion of the mandible 12/01/23 Prior procedure/biopsy/surgery and date(s): 12/01/23 Pertinent pathology results: A complete history of Jenae paredes symptoms and physical signs were reviewed with attention to initial findings and interval progression, pain, bleeding, swelling, lumps, bumps, drainage, dysphagia, odynophagia, paresthesia, dysarthria, and systemic effects. 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 S/P ORIF bilateral foot fractures, 09/16/18 (Gitajn) S92.209A Hypertension I10 Hyperlipidemia E78.5 Type 2 diabetes mellitus without complication, with long-term current use of insulin E11.9, Z79.4 Chronic pain G89.29 LORRI on CPAP G47.33 Gastroesophageal reflux K21.9 Osteomyelitis of anterior right mandible M86.9 Hot flashes R23.2 Social History Tobacco Use Smoking status: Every Day Current packs/day: 1.00 Average packs/day: 1 pack/day for 28.0 years (28.0 ttl pk-yrs) Types: Cigarettes Smokeless tobacco: Never Tobacco comments: Currently using nicotine inhaler to help herself quit (11/08/18) Substance Use Topics Alcohol use: Not Currently acetaminophen (Tylenol) 500 mg tablet AMLODIPINE BESYLATE, BULK, MISC chlorhexidine (Peridex) 0.12 % Mouthwash cefTRIAXone (Rocephin) 1 gram injection solution sodium chloride 0.9 %, flush, (BD PosiFlush Normal Saline 0.9) Syringe heparin flush, porcine, 10 unit/mL Solution alteplase (Cathflo) 2 mg Recon Soln morphine IR (MS IR) 15 mg IR tablet celecoxib (CeleBREX) 100 mg capsule cloNIDine (Catapres) 0.1 mg tablet doxepin (SINEquan) 10 mg capsule ezetimibe (Zetia) 10 mg tablet famotidine (Pepcid) 20 mg tablet losartan (Cozaar) 50 mg tablet meclizine (Antivert) 25 mg tablet montelukast (Singulair) 10 mg tablet omeprazole (PriLOSEC) [address] capsule Ozempic 0.25 mg or 0.5 mg (2 mg/3 mL) Pen Injector simvastatin (Zocor) 40 mg tablet traMADoL (Ultram) 50 mg tablet zolpidem (Ambien) 10 mg tablet baclofen (Lioresal) 10 mg tablet Allergies Allergen Reactions Bee Sting [Hymenoptera Allergenic Extract] Other (See Comments) Swelling Sulfa (Sulfonamide Antibiotics) Tape, Occlusive Adhesive Review of Systems Pertinent positive and negative findings discussed above. ROS with attention to cardiac, pulmonary,hepatic, renal, neurologic and dermatologic systems reviewed with relevant findings as noted. Physical Exam Vitals: There were no vitals taken for this visit. There is no height or weight on file to calculate BMI. Extraoral exam conducted including facial symmetry, sensory and motor function, alertness and appropriateness to questions and commands, range of jaw motion, TMJ function and skeletal architecture. Neck exam conducted with attention to normal musculature, vasculature and potential adenopathy. Intraoral exam including evaluation of tongue surface and consistency, floor of mouth, buccal and labial mucosa as well as maxillary and mandibular vestibules, hard and soft palate including soft palate elevation and oropharynx as well as dentition, dental arches, occlusion and salivary flow. General: No acute distress, pleasant Head: normocephalic, external ears unremarkable Nose: external exam unremarkable, patent nares Focused oral exam: No trismus Anterior mandible without exposed bone, gingiva healing well, no erythema, edema, or drainage Neuro: alert and oriented Neck: soft, supple CV: no cyanosis or pallor Respiratory: no increased work of breathing. 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 Will see how the bone consolidates in a few months. Recommendations/plan: Finish course of OPAT Follow-up in 4-6 months for repeat panorex, call sooner with concerns. We appreciate the opportunity to be involved in Ms. La's care. LILLY Foster 12/11/2023 8:21 AM documented in this encounter Plan of Treatment Not on file documented as of this encounter Visit Diagnoses Diagnosis Osteomyelitis, unspecified site, unspecified type documented in this encounter Care Teams Shrink Pit Supervisor Relationship Specialty Start Date End Date None None PCP - General 12/01/23 documented as of this encounter
--- OUTSIDE RECORDS SUMMARY | 2024-02-09 14:56 | XMS_ITS | Clinical Summary ---
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 11/15/2023 Active cloNIDine (Catapres) 0.1 mg tabletIndications :vasomotor symptoms associated with menopause Take 0.05 mg by mouth daily. Indications: change of life signs 10/05/2023 Active doxepin (SINEquan) 10 mg capsule Take 10 mg by mouth nightly. 11/03/2023 Active ezetimibe (Zetia) 10 mg tablet Take 10 mg by mouth daily. 10/27/2023 Active famotidine (Pepcid) 20 mg tablet Take 20 mg by mouth nightly. 08/24/2023 Active losartan (Cozaar) 50 mg tablet Take 100 mg by mouth daily. 10/30/2023 Active meclizine (Antivert) 25 mg tabletIndications :prevention of motion sickness Take 1 tablet by mouth 3 times daily as needed for Nausea. Indications: prevention of motion sickness 08/07/2023 Active montelukast (Singulair) 10 mg tablet Take 10 mg by mouth daily. 10/23/2023 Active omeprazole (PriLOSEC) [address] capsule Take 20 mg by mouth every morning. 09/09/2023 Active Ozempic 0.25 mg or 0.5 mg (2 mg/3 mL) Pen Injector Inject 0.25 mg subcutaneously once a week. 10/11/2023 Active simvastatin (Zocor) 40 mg tablet Take 1 tablet by mouth daily. 09/09/2023 Active traMADoL (Ultram) 50 mg tablet Take 50 mg by mouth every 8 hours as needed for Pain. 10/14/2023 Active zolpidem (Ambien) 10 mg tablet Take 10 mg by mouth nightly as needed for Sleep. 10/13/2023 Active baclofen (Lioresal) 10 mg tablet Take 1 tablet by mouth Three Times Daily for DHE. 10/07/2023 Active morphine IR (MS IR) 15 mg IR tablet Take 0.5 tablets by mouth every 4 hours as needed for Pain. 25 tablet 11/21/2023 Active Additional Information Patient not taking.Reported on 12/17/2023 acetaminophen (Tylenol) 500 mg tablet Take 1,000 mg by mouth every 6 hours as needed for Pain. Active AMLODIPINE BESYLATE, BULK, MISC 2.5 mg by Misc.(Non-Drug; Combo Route) route daily. Active chlorhexidine (Peridex) 0.12 % Mouthwash Use 15 mL every day in the AM after waking up, before bedtime in the PM and after each meal. 473 mL 12/01/2023 Active Active Problems Problem Noted Date Diagnosed Date Osteomyelitis of anterior right mandible 024 Assessment & Plan (11/19/2023 5:40 PM EDT): Presumably a consequence of her dental infection(s) in the setting of unclear long-term diabetes control. Appreciate ENT evaluation and following; for now, medical management will continue. - continue pip-tazo IV - ENT recs - diabetes mgmt as below - pain mgmt as below - consider PICC in anticipation of prolonged IV abx, unclear if step-down oral therapy will be acceptable ultimately Hot flashes 11/19/2023 Assessment & Plan (11/19/2023 5:40 PM EDT): - home clonidine Hypertension 09/15/2018 Assessment & Plan (11/19/2023 5:40 PM EDT): - home losartan with hold parameters Hyperlipidemia 09/15/2018 Type 2 diabetes mellitus wit hout complication, with long-term current use of insulin 09/15/2018 Assessment & Plan (11/19/2023 5:40 PM EDT): Patient stated she would not give up regular soda long-term but would try to stop it while being treated for this potentially very morbid infection. She is concerned about the headaches/migraines she gets when not drinking the soda, but she could be offered caffeine in others forms in the meantime. She also essentially stated she cannot adhere to a restrictive diet while here though I encouraged her to try since poor glucose control will negatively impact her ability to overcome this infection. She was also reluctant to have finger stick glucose checks though unfortunately we cannot manage her DM from her CGM. I did make several compromises since it appears she may not be able to tolerate hospitalization otherwise. - holding home semaglutide - carb count diet no limit - TID checks with sensitive scale and mealtime carb count coverage Chronic pain 09/15/2018 Assessment & Plan (11/19/2023 6:24 PM EDT): High concern for serotonin syndrome with home regimen doxepin, tramadol, zofran. Concern for NSAID toxicity on home celecoxib + other agents. - scheduled APAP Q8 - stop home tramadol for MSIR 7.5 mg PO Q4 (slightly higher potency and higher frequency than home dosing of tramadol) - stop home celecoxib scheduled BID for PRN toradol (can go back to home med after 5 days of toradol) LORRI on CPAP 09/15/2018 Assessment & Plan (11/19/2023 5:40 PM EDT): Doesn't use ~90% of the time, has nasal CPAP but finds even this to be claustrophobic. 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 Encounters Date Type Department Care Team Description 12/28/2023 2:00 PM EDT TH Visit (TeleHealth) [place] [address] Stephenie Moya MD 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; retirement current use of antibiotics 12/28/2023 Notes [place] [address] Cindy Lizama RN 12/24/2023 Telephone [place] [address] Fabiana Bates LNA 12/22/2023 Telephone [place] [address] Juliann Patino 12/17/2023 8:00 AM EDT Office Visit [place] [address] Delvin Church PA Osteomyelitis, unspecified site, unspecified type 12/17/2023 Interpretation Only Radiology [address] [place] [address] [place] [address] Unknown 12/17/2023 Travel 12/10/2023 Telephone [place] [address] Juliann Patino 12/09/2023 1:00 PM EDT TH Visit (TeleHealth) [place] [address] Alea Bailey APRN Osteomyelitis of mandible; 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; 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 12/08/2023 Telephone [place] [address] Alea Bailey APRN 12/01/2023 3:44 PM EDT Anesthesia [place] [address] Delvin Crystal MD Novak, Nathaniel, MD 12/01/2023 3:38 PM EDT - 12/01/2023 5:23 PM EDT Surgery Main Operating Room [place] [phone] Fidel Naranjo MD EXCISION BENIGN TUMOR OR CYST, MANDIBLE (WRVU 4.91) 12/01/2023 2:08 PM EDT - 12/01/2023 6:33 PM EDT Hospital Encounter Same Day Program at [place] [phone] Fidel Naranjo MD Osteomyelitis of other site, unspecified type Discharge Disposition: Home 11/25/2023 11:50 AM EDT - 11/25/2023 11:59 PM EDT Hospital Encounter Med Infusion at [place] [phone] Osteomyelitis, unspecified site, unspecified type Discharge Disposition: Home 11/25/2023 11:30 AM EDT Clinical Support Infectious Disease at [place] [phone] 11/25/2023 9:21 AM EDT - 11/25/2023 11:49 AM EDT Hospital Encounter XRay at [address] [place] [address] Juan Yo MD 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; 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 Discharge Disposition: Home 11/25/2023 Notes Only Infectious Disease at [place] [phone] Cindy Lizama RN 11/25/2023 Travel 11/24/2023 Telephone [place] [address] Andra Grady 11/23/2023 Orders [place] [address] Juan Yo MD 11/23/2023 Orders [place] [address] Juan Yo MD 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; 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 11/23/2023 Orders [place] [phone] Juan Yo MD 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; retirement current use of antibiotics 11/23/2023 Telephone [place] [phone] Cindy Lizama RN Follow-up (F/U to schedule outpatient OPAT) 11/23/2023 Notes Only Infectious Disease [place] [phone] Stephenie Moya MD 11/23/2023 Orders [place] [phone] Dariana Jane MD Osteomyelitis of other site, unspecified type 11/19/2023 10:47 AM EDT - 11/21/2023 2:10 PM EDT Hospital Encounter Medical Specialites Unit Level 1 [place] [phone] Miguel Benson MD Marshall, Alison G, MD Krawitt, Brian J, MD Friedman, Harley P, MD Hypertension, unspecified type; Osteomyelitis, jaw acute; Osteomyelitis, unspecified site, unspecified type Discharge Disposition: Home 11/19/2023 Travel from Last 3 Months Social History Tobacco [...] e alcohol) [facility] Utilities Answer Date Recorded In the past 12 months has e [employer], gas, oil, or water [employer] threatened to shut off services in your [...] any time in the past 12 m [facility], were you homeless or living in a snf (including now)? No 11/20/2023 DH IPV Inpatient [...] on file Sexual Orientation Not on file Last Filed Vital Signs [...] Mass Index 29 12/01/2023 3:27 PM EDT Plan of Treatment Health Maintenance Due Date Last Done Comments CT Colonography 1967 Colonoscopy 1967 Colorectal Cancer Screening 1967 FIT DNA 1967 FIT 1967 Sigmoidoscopy (10 year) with FIT yearly 1967 Sigmoidoscopy 1967 Pneumococcal Vaccine: At-Ris k 5-64yrs (1 of 2 - PCV) 08/15/1973 DM Opthalmology Exam 08/15/1977 DM Urine Microalbumin yearly 08/15/1977 HIV screen 08/15/1985 Hepatitis C Screening 08/15/1985 Hepatitis B vaccine (0-59 yrs) (1) 08/15/1986 Tdap adult 08/15/1986 Tetanus vaccine 08/15/1986 HPV test 08/15/1997 PAP Smear 08/15/1997 Breast Cancer Share Decision Needed 2007 Breast Cancer screening 2007 Zoster vaccine (1 of 2) 08/15/2017 DM Hemoglobin A1c 12/16/2018 09/16/2018 Advance Directive 08/15/2022 Covid-19 Vaccine (1 - 2022-2 4 season) 2024 Influenza (Flu) vaccine (1 o f 1 - Influenza standard series) 01/24/2024 DM Creatinine yearly 11/20/2024 11/21/2023, 11/20/2023, 11/19/2023, Additional history exists Medical Devices Implanted Type Area Ship Boss Device Identifier Shelf Expiration Date Model / Serial / Lot Screw,Crtx,Sta p,Star,2x18mm ([id number]) - [id number] Implanted:Qty: 1 on 09/16/2018 by Aparna Reed MD at [facility] IMPLANTS Right: Foot ALEENA [employer] - ALEENA SALVATORE 201.368.97 / / Screw,Lck,Stap ,Star,2x14mm ([id number]) - [id number] Implanted:Qty: 1 on 09/16/2018 by Aparna Reed MD at [facility] IMPLANTS Right: Foot ALEENA [employer] - ALEENA SALVATORE 201.884 / / Screw,Lck,Stap ,Star,2x18mm ([id number]) - [id number] Implanted:Qty: 1 on 09/16/2018 by Aparna Reed MD at [facility] IMPLANTS Right: Foot ALEENA [employer] - ALEENA SALVATORE 201.888 / / Plate,Lcp,7h,2 .0x52mm ([id number]) - [id number] Implanted:Qty: 1 on 09/16/2018 by Aparna Reed MD at [facility] IMPLANTS Right: Foot ALEENA & [employer] - ALEENA SALVATORE 247.347 / / Plate,Cndylr,L cp,7h,2.4mm ([id number]) ([employer]oreq) - [id number] Implanted:Qty: 1 on 09/16/2018 by Aparna Reed MD at [facility] IMPLANTS Right: Foot ALEENA [employer] - ALEENA SALVATORE 249.679 / / Bone,Crushed,C ancellous,10cc ([id number]) ([employer]oreq) - [id number] Implanted:Qty: 1 on 09/16/2018 by Aparna Reed MD at [facility] IMPLANTS Right: Foot [facility]23 [facility] / / [id number] Pin,Kwire,Plai n,2,0.904q2eo, Ns ([id number]) - [id number] Implanted:Qty: 3 on 09/16/2018 by Aparna Reed MD at [facility] IMPLANTS Left: Foot [employer] - MICRO[employer]RE [phone] / / Plate,Lcp,Cndy lr,7h-Shft,2mm (6981533) - [id number] Implanted:Qty: 1 on 09/16/2018 by Aparna Reed MD at [facility] IMPLANTS Left: Foot [employer] - ALEENA SALVATORE 247.349 / / Screw,Lck,Stap ,Star,2x12mm ([id number]) - [id number] Implanted:Qty: 1 on 09/16/2018 by Aparna Reed MD at [facility] IMPLANTS Left: Foot [employer] - ALEENA SALVATORE 201.882 / / Screw,Crtx,Sta p,T8,2.4x16mm ([id number]) - [id number] Implanted:Qty: 1 on 09/16/2018 by Aparna Reed MD at [facility] IMPLANTS Right: Foot [employer] - ALEENA SALVATORE 201.766 / / Screw,Lck,Stap ,Star,2x10mm ([id number]) - [id number] Implanted:Qty: 1 on 09/16/2018 by Aparna Reed MD at [facility] IMPLANTS Left: Foot ALEENA & [facility] - ALEENA SALVATORE 201.880 / / Screw,Crtx,Sta p,Star,2x12mm ([id number]) - [id number] Implanted:Qty: 1 on 09/16/2018 by Aparna Reed MD at [facility] IMPLANTS Left: Foot ALEENA & [facility] - ALEENA SALVATORE 201.362.97 / / Screw,Crtx,Sta p,Star,2x14mm (0978529) - [id number] Implanted:Qty: 1 on 09/16/2018 by Aparna Reed MD at [facility] IMPLANTS Left: Foot ALEENA & [facility] - ALEENA SALVATORE 201.364.97 / / Screw,Crtx,Sta p,Star,2x14mm ([id number]) - [id number] Implanted:Qty: 1 on 09/16/2018 by Aparna Reed MD at [facility] IMPLANTS Right: Foot ALEENA & ALEENA [employer] - ALEENA SALVATORE 201.364.97 / / Screw,Va,Lck,S lftp,T6,2x22mm ([id number]) - [id number] Implanted:Qty: 1 on 09/16/2018 by Aparna Reed MD at [facility] IMPLANTS Right: Foot [employer] - DEPUY SYNT 02.130.322 / / Screw,Crtx,Sta p,Star,2x12mm ([id number]) - [id number] Implanted:Qty: 1 on 09/16/2018 by Aparna Reed MD at [facility] IMPLANTS Right: Foot ALEENA & [employer] - ALEENA SALVATORE 201.362.97 / / Screw,Va,Lck,S lftp,T6,2x18mm ([id number]) - [id number] Implanted:Qty: 1 on 09/16/2018 by Aparna eRed MD at [facility] IMPLANTS Right: Foot DEPUY [employer] - DEPUY SYNT 02.130.318 / / Screw,Va,Lck,S lftp,T6,2x16mm ([id number]) - [id number] Implanted:Qty: 1 on 09/16/2018 by Aparna Reed MD at [facility] IMPLANTS Right: Foot ALEENA & [facility] - ALEENA SALVATORE 02.130.316 / / Screw,Crtx,Sta p,Star,2x16mm ([id number]) - [id number] Implanted:Qty: 1 on 09/16/2018 by Aparna Reed MD at [facility] IMPLANTS Right: Foot ALEENA & [facility] - ALEENA SALVATORE 201.366.97 / / Screw,Crtx,Sta p,Strdrv,2x10m m ([id number]) - [id number] Implanted:Qty: 1 on 09/16/2018 by Aparna Reed MD at [facility] IMPLANTS Left: Foot ALEENA & [facility] - ALEENA SALVATORE 201.360.97 / / Screw,Crtx,Sta p,T8,2.4x26mm (0092265) - [id number] Implanted:Qty: 1 on 09/16/2018 by Aparna Reed MD at [facility] IMPLANTS Right: Foot ALEENA & [facility] - ALEENA SALVATORE 201.776 / / Guidew,Thrd,1. [id number] ([id number]) - [id number] Implanted:Qty: 3 on 09/16/2018 by Aparna Reed MD at [facility] IMPLANTS Right: Foot ALEENA & [facility] - ALEENA SALVATORE 292.727 / / Screw,Crtx,Sta p,T8,2.4x22mm (0525525) - [id number] Implanted:Qty: 1 on 09/16/2018 by Aparna Reed MD at [facility] IMPLANTS Right: Foot ALEENA & [facility] - ALEENA SALVATORE 201.772 / / Screw,Slftp,Lc k,Star,2.4x12m m ([id number]) - [id number] Implanted:Qty: 1 on 09/16/2018 by Aparna Reed MD at [facility] IMPLANTS Right: Foot ALEENA & [facility] - ALEENA SALVATORE 212.812 / / Screw,Lck,Stap ,Star,2.4x6mm (4013278) - [id number] Implanted:Qty: 1 on 09/16/2018 by Aparna Reed MD at [facility] IMPLANTS Right: Foot ALEENA & [facility] - ALEENA SALVATORE 212.806 / / Screw,Lck,Stap ,Star,2.4x18mm ([id number]) - [id number] Implanted:Qty: 1 on 09/16/2018 by Aparna Reed MD at [facility] IMPLANTS Right: Foot ALEENA & [facility] - ALEENA SALVATORE 212.818 / / Screw,Crtx,Sta p,Strdrv,2x9mm ([id number]) - [id number] Implanted:Qty: 1 on 09/16/2018 by Aparna Reed MD at [facility] IMPLANTS Right: Foot ALEENA & [facility] - ALEENA SALVATORE 201.359.97 / / Screw,Crtx,Sta p,Star,2x28mm ([id number]) - [id number] Implanted:Qty: 1 on 09/16/2018 by Aparna Reed MD at [facility] IMPLANTS Right: Foot ALEENA & [facility] - ALEENA SALVATORE 201.376.97 / / Explanted Type Area Ship Boss Device Identifier Shelf Expiration Date Model / Serial / Lot Pin,Kwire,Troc 1 Ed,Ns,[id number] ([id number]) (Autoreq) - [id number] Explanted:Qty: 1 on 09/16/2018 by Aparna Reed MD at [facility] IMPLANTS Right: Foot ALEENA & [facility] - ALEEAN SALVATORE 292.20 / / Pin,Kwire,Troc 1ed,Ns,[id number] ([id number]) - [id number] Explanted:Qty: 2 on 09/16/2018 by Aparna Reed MD at [facility] IMPLANTS Right: Foot ALEENA & [facility] - ALEENA SALVATORE 292.10 / / Procedures Procedure Name Priority Date/Time Associated Diagnosis Comments LAB SCAN 12/23/2023 12:00 AM EDT LAB SCAN 12/21/2023 12:[address] FACIAL (CONEBEAM/PANOREX) Routine 12/17/2023 LAB SCAN 12/16/2023 12:00 AM EDT LAB SCAN 12/14/2023 12:00 AM EDT LAB SCAN 12/14/2023 12:00 AM EDT LAB SCAN 12/07/2023 12:00 AM EDT LAB SCAN 12/02/2023 12:00 AM EDT SPECIMEN TO PATHOLOGY Routine 12/01/2023 4:30 PM EDT ANAEROBIC CULTURE Routine 12/01/2023 4:3 0 PM EDT TISSUE CULTURE Routine 12/01/2023 4:30 PM EDT HC TISSUE CULTURE Routine 12/01/2023 4:3 0 PM EDT SURGICAL PATHOLOGY REPORT Routine 12/01/2023 4:29 PM EDT Excision, Benign Tumor, Mandible ([id number]) Yes 12/01/2023 3:43 PM EDT Osteomyelitis of other site, unspecified type EXCISION BENIGN TUMOR OR CYST,MANDIBLE Routine 12/01/2023 2:44 PM EDT Osteomyelitis of other site, unspecified type LAB SCAN 12/01/2023 12:00 AM EDT XR PICC PLACEMENT OVER 5 YEARS (IV TEAM) Routine 11/25/2023 9:58 AM EDT 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 POCT GLUCOSE Routine 11/21/2023 11:27 AM EDT POCT GLUCOSE Routine 11/21/2023 6:29 AM EDT DIFFERENTIAL, AUTOMATED Routine 11/21/2023 5:25 AM EDT HEMOGRAM Routine 11/21/2023 5:25 AM EDT BASIC METABOLIC PANEL Routine 11/21/2023 5:25 AM EDT CBC (WITH DIFF) Routine 11/21/2023 5:25 AM EDT POCT GLUCOSE Routine 11/20/2023 9:45 PM EDT POCT GLUCOSE Routine 11/20/2023 7:01 PM EDT POCT GLUCOSE Routine 11/20/2023 4:44 PM EDT ECHO COMPLETE Routine 11/20/2023 4:03 PM EDT Osteomyelitis, jaw acute MRSA PCR SCREEN STAT 11/20/2023 12:27 PM EDT BLOOD CULTURE STAT 11/20/2023 11:49 AM EDT POCT GLUCOSE Routine 11/20/2023 11:36 AM EDT URINALYSIS MICROSCOPIC EXAM Routine 11/20/2023 7:22 AM EDT URINALYSIS WITH REFLEX CULTURE Routine 11/20/2023 7:22 AM EDT URINE CULTURE Routine 11/20/2023 7:22 AM EDT POCT GLUCOSE Routine 11/20/2023 6:21 AM EDT POCT GLUCOSE Routine 11/20/2023 3:10 AM EDT DIFFERENTIAL, AUTOMATED Routine 11/20/2023 1:42 AM EDT HEMOGRAM Routine 11/20/2023 1:42 AM EDT BASIC METABOLIC PANEL Routine 11/20/2023 1:42 AM EDT CBC (WITH DIFF) Routine 11/20/2023 1:42 AM EDT POCT GLUCOSE Routine 11/19/2023 7:19 PM EDT ANAEROBIC CULTURE Routine 11/19/2023 4:4 3 PM EDT ABSCESS/WOUND ASPIRATE CULTURE Routine 11/19/2023 4:43 PM EDT HC WOUND/ABSCESS CX Routine 11/19/2023 4 :[address] FACIAL BONES W CONTRAST STAT 11/19/2023 12:37 PM EDT GOLD TUBE HOLD STAT 11/19/2023 11:15 AM EDT BLUE TUBE HOLD STAT 11/19/2023 11:15 AM EDT DIFFERENTIAL, AUTOMATED STAT 11/19/2023 11:15 AM EDT HEMOGRAM STAT 11/19/2023 11:15 AM EDT BASIC METABOLIC PANEL STAT 11/19/2023 11:15 AM EDT CBC (WITH DIFF) STAT 11/19/2023 11:15 AM EDT HEMOGLOBIN A1C Routine 09/16/2018 3:33 PM EDT from Last 3 Months or Most Recently Relevant to Health Maintenance Results * Scan Doc: Lab (12/23/2023 12:00 AM EDT) Only the most recent of8 resultswithin the time period is included. Narrative 12/23/2023 12:00 AM EDT Ordered by an unspecified provider. Scanning Provider MEDIA MGR SCAN EXT O RDR/RSLT * CT/DX Facial/Oral (ConeBeam/Panorex) (12/17/2023) Anatomical Region Laterality Modality Other 12/17/2023 Narrative 12/17/2023 12:00 AM EDT Photographs - Images Procedure Note Unknown - 12/17/2023 Photographs - Images Unknown EA IMAGES * Anaerobic Culture (12/01/2023 4:30 PM EDT) Only the most recent of2 resultswithin the time period is included. Anaerobic Culture No anaerobic organisms isolated [facility] Mandible 12/01/2023 4:30 PM EDT 12/01/2023 5:55 PM EDT Comment:Right anterior camacho bular lesion Narrative Resulting Agency Comment Spec In Lab Fidel Naranjo MD MICROBIOLOGY - GENER AL ORDERABLES Performing Organization Address [facility] Co de Phone Number [facility] [place] [address] * Tissue culture (12/01/2023 4:30 PM EDT) Tissue Culture No growth [facility] Gram Stain Few Neutrophils seen No microorganisms seen. [facility] [place] 12/01/2023 4:30 PM EDT 12/01/2023 5:55 PM EDT Comment:Right anterior camacho bular lesion Narrative Resulting Agency Comment Spec In Lab Fidel Naranjo MD MICROBIOLOGY - GENER AL ORDERABLES Performing Organization Address [facility] de Phone Number [facility] [place] [address] * Specimen to Pathology (12/01/2023 4:30 PM EDT) AP Specimen 12/01/2023 4:30 PM EDT 12/01/2023 4:30 PM EDT Narrative [facility] - 12/01/2023 4:30 PM EDT Specimen requisition ordered. ??Separate Pathology report to follow Fidel Naranjo MD PATHOLOGY/CYTOLOGY O RDERABLES Performing Organization Address [facility] Co de Phone Number [facility] [place] [address] * Surgical Pathology Report (12/01/2023 4:29 PM EDT) Surgical Pathology Report [id number] ? Location: SDP; SD41; A The signing pathologist has (i) examined the relevant preparation(s) for the specimen(s) and (ii) rendered or confirmed the diagnosis(es). . ?Surgical Pathology DIAGNOSIS A - Right anterior mandibular lesion, excision: - Reactive gingival-type mucosa with granulation tissue. - Osteomyelitis. Electronically signed by: ?Donny Godwin MD Verified: ??12/08/2023 15:59 ??Pathologist Performed at: ??-[facility] Dept. of Pathology, [place] [address] Orthopaedic General: Iman Sutton MD, FCAP, ??CLIA Certificate: [id number] DISCUSSION Multiple additional sections were examined. No [...] submitted in 3 cassettes labeled A1-A3. ??sns [facility] 12/01/2023 4:29 PM EDT Fidel Naranjo MD PATHOLOGY/CYTOLOGY O RDERABLES [facility] [place] [address] * XR PICC Placement Over 5 Years with Imaging Guidance (IV Team) (11/25/2023 9:58 AM EDT) WORKSTATION ID [id number] RAD Anatomical Region Laterality Modality N/A Radio [...] who have questions please contact the health attending ambulatory care that requested your imaging first. ? Narrative 11/25/2023 11:40 AM EDT EXAMINATION: XR [...] patients who have questions please contactthe health attending ambulatory care that requested your imaging first. Juan Yo MD IMG FLUORO ORDERABL ES * POCT Glucose (11/21/2023 11:27 AM EDT) Only the most recent of9 resultswithin the time period is included. Glucose, POC 154 65 - 199 mg/dL [facility] Comment: Supplemental ranges: <140 mg/dL before meals <180 mg/dL all other times of the day Blood 11/21/2023 11:2 7 AM EDT 11/21/2023 11:27 AM EDT Ernesto Rodriguez MD POINT OF CARE TEST ORDERABLES [facility] [place] [address] * (ABNORMAL) Hemogram (11/21/2023 5:25 AM EDT) Only the most recent of3 resultswithin the time period is included. White Blood Cell 7.0 4.0 - 9.5 x10(3)/mc L [facility] Red Blood Cell 3.67(L) 4.00 - 5.21 x10(6)/mc L [facility] Hemoglobin 11.5(L) 11.7 - 15.5 g/dL [facility] Hematocrit 34.7(L) 35.7 - 45.8 % [facility] LABORATORY Mean Cell Volume 94.6(H) 82.6 - 94.4 fL [facility] Mean Cell Hemoglobin 31.3 27.1 - 32.0 pg [facility] Mean Cell Hemoglobin Concentration 33.1 31.7 - 35.0 g/dL [facility] Platelet 247 145 - 357 x10(3)/mc L [facility] RDW Standard Deviation 43.3 37.0 - 46.0 fL [facility] RDW coefficient of variation 12.5 11.5 - 14.1 % [facility] Mean Platelet Volume 9.7 7.6 - 12.9 fL [facility] NRBC% auto 0.0 % [facility] NRBC Absolute 0.000 0.000 - 0.000 x10(3)/mc L [facility] Blood 11/21/2023 5:25 AM EDT 11/21/2023 5:32 AM EDT Narrative Resulting Agency Comment Spec In Lab Misael Joaquin MD HEMATOLOGY ORDERABLE S [facility] [place] [address] * Differential, Automated (11/21/2023 5:25 AM EDT) Only the most recent of3 resultswithin the time period is included. Neutrophil % 49.4 % [facility] Neutrophil Absolute 3.46 1.70 - 6.10 x10(3)/[facility] Lymph % 41.6 % [facility] Lymphocytes Abs 2.9 0.9 - 3.2 x10(3)/[facility] Monocyte % 7.1 % [facility] Monocyte Abs 0.5 0.3 - 0.9 x10(3)/[facility] Eos % 1.4 % [facility] Eosinophils Abs 0.1 0.0 - 0.4 x10(3)/[facility] Basophil % 0.4 % [facility] Baso Absolute 0.0 0.0 - 0.1 x10(3)/[facility] Immature Gran % 0.10 % [facility] Comment: Immature granulocytes(IG's)percentage and absolute count will include metamyelocytes, myelocytes, and promyelocytes. Blood smears from CBCs yielding IG's will be scanned manually for concordance. If this scan disagrees with the automated IG or if promyelocytes are noted, a manual differential will be performed. Immature Gran Absolute 0.01 0.00 - 0.04 x10(3)/[facility] Blood 11/21/2023 5:25 AM EDT 11/21/2023 5:32 AM EDT Narrative Resulting Agency Comment Spec In Lab Misael Joaquin MD HEMATOLOGY ORDERABLE S [facility] [place] [address] * (ABNORMAL) Basic Metabolic Panel (non-fasting) (11/21/2023 5:25 AM EDT) Only the most recent of3 resultswithin the time period is included. Glucose 113 65 - 199 mg/dL [facility] Comment:Diabetes: >=200 mg/d L plus symptoms Blood Urea Nitrogen 15 8 - 18 mg/dL [facility] Creatinine 0.93 0.70 - 1.20 mg/dL [facility] Sodium 143 135 - 145 mmol/L [facility] Potassium 3.6 3.5 - 5.0 mmol/L [facility] Comment: Please note: ??Patients with WBC >100,000 may have falsely elevated Potassium levels. ??For accurate Potassium quantification in these patients send serum separator tube (gold top) for subsequent determinations. ??Contact the Clinical Chemistry Laboratory if there are any questions. Chloride 111(H) 98 - 107 mmol/L [facility] Carbon Dioxide 22 22 - 31 mmol/L [facility] Anion Gap 10 5 - 15 mmol/L [facility] Calcium 8.4(L) 8.5 - 10.5 mg/dL [facility] Est Glomerular Filtration Rate 72 >=60 mL/min/1. 73 m?? [facility] Comment: This patient's estimated GFR was calculated using the 2020 CKD-EPI equation. The estimated GFR can vary from the measured GFR by up to 30% in the absence of rapidly changing kidney function. Assessment of the estimated GFR is not appropriate when creatinine concentrations are rapidly changing. For clinical situations in which a more precise estimate of GFR is necessary, consider alternative methods of GFR estimation such as a 24-hour urine creatinine clearance. Assignment of CKD stage 1-5 for patients with an eGFR near the transition point between stages may be based on clinical assessment of muscle mass and symptoms in addition to eGFR. Blood 11/21/2023 5:25 AM EDT 11/21/2023 5:32 AM EDT Narrative Resulting Agency Comment Spec In Lab Misael Joaquin MD CHEMISTRY ORDERABLES [facility] [place] [address] * ECHO COMPLETE (11/20/2023 4:03 PM EDT) Anatomical Region Laterality Modality Cardiac Other 11/20/2023 3:17 PM EDT Narrative 11/20/2023 4:13 PM EDT [address] [place] [id number] ? Echocardiogram Report Name: ERICKSON LA ?Study Date: 11/20/2023 03:17 PM ? Patient Location: [facility] 0[address] A : 1965 ? Height: 155 cm ? Account: [id number] Age: 58 yrs ? Weight: 70 kg Gender: Female ?BSA: 1.7 m2 Ordering Physician: WALT SEWELL Referring Physician: NONE Performed By: Kiana Andrade RDCS Reason For Study: Osteomyelitis Exam Location: [facility]. Interpretation Summary 1. Left ventricle is of [...] 4. No prior study available for comparison. Procedure Complete-[id number]. Satisfactory quality. Left Ventricle Left ventricle is of normal size. Wall thickness is normal. Left ventricular size and systolic function are normal. The left ventricular ejection fraction is 61% by 3D volumetric assessment. There are no segmental wall motion abnormalities. Right Ventricle The right ventricle is of normal size. Right ventricular systolic function is normal. Left Atrium The left atrium is normal. No abnormality of the interatrial septum is identified. Right Atrium The right atrium is normal. Aortic Valve The aortic valve is structurally and functionally normal. There is no aortic stenosis. There is mild to moderate aortic regurgitation. Mitral Valve The mitral valve is structurally and functionally normal. There is no mitral stenosis. There is trace mitral regurgitation. Tricuspid Valve The tricuspid valve is structurally and functionally normal. There is no tricuspid stenosis. There is mild tricuspid regurgitation. Pulmonic Valve The pulmonic valve is not well visualized. Great Arteries The aortic root is of normal size. No abnormalities are identified. Venous Inferior vena cava is normal in size. Inferior vena cava collapse greater than 50% with respiration. Pericardium/Pleural There is no pericardial effusion. Hemodynamics The estimated right atrial pressure is 3mmHg. The peak right ventricular systolic pressure is 25 mmHg. Left ventricular diastolic function is normal. Ejection Fraction ?2D Measurements ? Volumes EF (HM)_phl: 61.0 % ? IVSd: 0.85 cm ?LAV(MOD-bp) Indexed: ?LVIDd: 4.8 cm ?LVIDs: 3.2 cm ?24.7 ml/m2 ?LVPWd: 0.83 cm ? RA A4Cs_phl: 11.3 cm2 ? EDV(HM) Indexed: ?RWT: 0.35 {ratio} ?LV mass(C)d: 134.8 grams ? 74.3 ml/m2 ?LV mass(C)dI: 79.5 grams/m2 ?ESV(HM) Indexed: ?Ao root diam: 3.0 cm ? 28.9 ml/m2 ?Ao root diam index: 1.8 ?SV(LVOT): 67.1 ml ?LVOT diam: 2.1 cm ?TAPSE_phl: 1.9 cm ?SI(LVOT): 39.6 ml/m2 Doppler LV V1 VTI: 19.4 cm Ao V2 VTI: 27.5 cm Ao Max: 150.6 cm/sec Ao valve max: 9.1 mmHg Ao valve mean: 4.1 mmHg MV E max toro: 84.1 cm/sec MV A max toro: 81.3 cm/sec MV E/A: 1.0 MV dec time: 0.21 sec Lat Peak E' Toro: 10.8 cm/sec E/e' (lat): 7.8 Med Peak E' Toro: 7.9 cm/sec E/e' (med): 10.6 E/e' Average: 9.2 ISAK(I,D): 2.4 cm2 Dimensionless index Aov: 0.71 TR max toro: 236.1 cm/sec I ?WMSI = 1.00 ? % Normal = 100 ?Segments ??Size X - Cannot ?2 - ?4 - ?1-2 ? small Interpret ?1 - Normal ?? Hypokinetic 3 - Akinetic Dyskinetic ?? 3-5 ? moderate 5 - ? 6-14 ?large Aneurysmal ?15-16 ?? diffuse Procedure Note Michael Acharya MD - 11/20/2023 [address] [place] [address] Echocardiogram Report Name: ERICKSON LA Study Date: 403:17 PM Patient Location: [address] : 1965 Height: 155 cm Account: [id number] Age: 58 yrs Weight: 70 kg Gender: Female BSA: 1.7 m2 Ordering Physician: WALT SEWELL Referring Physician: NONE Performed By: Kiana Andrade RDCS Reason For Study: Osteomyelitis Exam Location: [facility]. Interpretation Summary 1. Left ventricle is of normal size. Wall thickness is normal. Leftventricular size and systolic function are normal. The left ventricular ejectionfraction is 61% by 3D volumetric assessment. There are no segmental wall motionabnormalities. 2. The right ventricle is of normal size. Right ventricular systolicfunction is normal. 3. There is mild to moderate aortic regurgitation. 4. No prior study available for comparison. Procedure Complete-[id number]. Satisfactory quality. Left Ventricle Left ventricle is of normal size. Wall thickness is normal. Leftventricular size and systolic function are normal. The left ventricular ejection fractionis 61% by 3D volumetric assessment. There are no segmental wall motionabnormalities. Right Ventricle The right ventricle is of normal size. Right ventricular systolic functionis normal. Left Atrium The left atrium is normal. No abnormality of the interatrial septum isidentified. Right Atrium The right atrium is normal. Aortic Valve The aortic valve is structurally and functionally normal. There is noaortic stenosis. There is mild to moderate aortic regurgitation. Mitral Valve The mitral valve is structurally and functionally normal. There is nomitral stenosis. There is trace mitral regurgitation. Tricuspid Valve The tricuspid valve is structurally and functionally normal. There is notricuspid stenosis. There is mild tricuspid regurgitation. Pulmonic Valve The pulmonic valve is not well visualized. Great Arteries The aortic root is of normal size. No abnormalities are identified. Venous Inferior vena cava is normal in size. Inferior vena cava collapse greaterthan 50% with respiration. Pericardium/Pleural There is no pericardial effusion. Hemodynamics The estimated right atrial pressure is 3mmHg. The peak right ventricularsystolic pressure is 25 mmHg. Left ventricular diastolic function is normal. Ejection Fraction 2D Measurements Volumes EF (HM)_phl: 61.0 % IVSd: 0.85 cm LAV(MOD-bp)Indexed: LVIDd: 4.8 cm LVIDs: 3.2 cm 24.7 ml/m2 LVPWd: 0.83 cm RA A4Cs_phl: 11.3cm2 EDV()Indexed: RWT: 0.35 {ratio} LV mass(C)d: 134.8 grams 74.3 ml/m2 LV mass(C)dI: 79.5 grams/m2 ESV(HM)Indexed: Ao root diam: 3.0 cm 28.9 ml/m2 Ao root diam index: 1.8 SV(LVOT): 67.1ml LVOT diam: 2.1 cm TAPSE_phl: 1.9 cm SI(LVOT): 39.6ml/m2 Doppler LV V1 VTI: 19.4 cm Ao V2 VTI: 27.5 cm Ao Max: 150.6 cm/sec Ao valve max: 9.1 mmHg Ao valve mean: 4.1 mmHg MV E max toro: 84.1 cm/sec MV A max toro: 81.3 cm/sec MV E/A: 1.0 MV dec time: 0.21 sec Lat Peak E' Toro: 10.8 cm/sec E/e' (lat): 7.8 Med Peak E' Toro: 7.9 cm/sec E/e' (med): 10.6 E/e' Average: 9.2 ISAK(I,D): 2.4 cm2 Dimensionless index Aov: 0.71 TR max toro: 236.1 cm/sec I WMSI = 1.00 % Normal = 100 SegmentsSize X - Cannot 2 - 4 - 1-2small Interpret 1 - Normal Hypokinetic 3 - Akinetic Dyskinetic 3-5moderate 5 - 6-14large Aneurysmal 15-16diffuse Walt Sewell MD ECHO ORDERABLES * MRSA PCR Screen ([facility]/CGP/APD/NLH) (11/20/2023 12:27 PM EDT) MRSA PCR Negative Negative [facility] MRSA (Interp) Methicillin-resist ant Staphylococcus aureus (MRSA) is NOT DETECTED The MRSA target DNA sequences (mec and SCC) were not detected within the acceptable ranges using the Xpert MRSA NxG on the GeneXpert Dx System ([employer]). This suggests the absence of MRSA in the patient specimen submitted for testing. This test is cleared by the U.S. Food and Drug Administration for clinical use and its performance characteristics have been verified by the [facility] at [facility]. This result does not rule out the presence of any other organisms. Rare false negative results may occur if MRSA is present at low concentrations with much higher concentrations of other organisms including MRSE or S. aureus with an empty SCC cassette. [facility] Comment: [VERIFIED DATE]11.21.23 Verified By:Kathy Nation (Electronic Signature) Swab 11/20/2023 12:2 7 PM EDT 11/20/2023 2:35 PM EDT Comment:Swab pus/exudate fro m tooth hole Narrative Resulting Agency Comment Spec In Lab Walt Sewell MD MOLECULAR ORDERABLES [facility] [place] [address] * Blood culture (11/20/2023 11:49 AM EDT) Blood Culture No growth at 5 days. [facility] Blood STRUCTURE OF RIGHT HAND / Unknown 11/20/2023 11:49 AM EDT 11/20/2023 12:15 PM EDT Narrative Resulting Agency Comment Spec In Lab Walt Sewell MD MICROBIOLOGY - BLOOD ORDERABLES Performing Organization Address City/[facility]/ZIP Co de Phone Number [facility] [place] [address] * (ABNORMAL) Urinalysis Microscopic Exam (11/20/2023 7:22 AM EDT) RBC, Urine >100(H) 0 - 4 /HPF [facility] WBC, Urine 25(H) 0 - 5 /HPF [facility] Squamous Epithelial Cells Raw Data, Urine 2 <=4 /HPF [facility] Hyaline Casts, Urine 2 0 - 2 /LPF [facility] First Catch Urine 11/20/2023 7:22 AM EDT 11/20/2023 7:54 AM EDT Narrative Resulting Agency Comment Spec In Lab Sherri Esquivel MD URINE ORDERABLES Performing Organization Address City/[facility]/ZIP Co de Phone Number [facility] [place] [address] * (ABNORMAL) Urinalysis with reflex Culture (11/20/2023 7:22 AM EDT) Glucose, Urine Dipstick Negative Negative mg/dL [facility] Protein, Urine Dipstick 30(A) Negative mg/dL [facility] Bilirubin, Urine Dipstick Negative Negative mg/dL [facility] Comment: Clinical correlation required for positive Urine Bilirubin results as false positive may occur with some drugs and drug related products. If a false positive is suspected a serum total bilirubin should be considered if clinically indicated. Urobilinogen, Urine Dipstick Normal Normal mg/dL [facility] pH, Urn (dipstick) 6.0 5.0 - 8.0 [facility] Blood, Urine Dipstick Large(A) Negative mg/dL [facility] Ketone, Urine Dipstick Negative Negative mg/dL [facility] Nitrite, Urine Dipstick Negative Negative [facility] Leukocytes, Urine Dipstick Small(A) Negative [facility] Appearance, Urine Dipstick Clear Clear [facility] Specific [place] Urine Automated 1.020 1.005 - 1.030 [facility] Color, Urine Dipstick Boundary(A) Yellow [facility] Reflex to Culture Yes [facility] First Catch Urine 11/20/2023 7:22 AM EDT 11/20/2023 7:54 AM EDT Narrative Resulting Agency Comment Spec In Lab Sherri Esquivel MD URINE ORDERABLES [facility] [place] [address] * Urine culture (11/20/2023 7:22 AM EDT) Urine Culture No growth (Less than 1,000 cfu/ml). [facility] First Catch Urine 11/20/2023 7:22 AM EDT 11/20/2023 9:09 AM EDT Narrative Resulting Agency Comment Spec In Lab Sherri Esquivel MD MICROBIOLOGY - GENE RAL ORDERABLES Performing Organization Address [facility] Co de Phone Number [facility] [place] [address] * (ABNORMAL) Abscess/Wound Aspirate Culture (11/19/2023 4:43 PM EDT) Abscess/Wound Aspirate Culture Moderate Streptococcus milleri, anginosis group Rare normal oropharyngeal shala (A) [facility] Gram Stain Many Neutrophils seen Rare Gram Positive Cocci seen (A) [facility] Organism Streptococcus milleri, anginosis group(A) [facility] Organism Gram Positive Cocci(A) [facility] Fluid TOPOGRAPHY UNKNOWN / Unknown 11/19/2023 4:43 PM EDT 11/19/2023 7:14 PM EDT Comment:Mandible Narrative Resulting Agency Comment Spec In Lab Dariana Jane MD MICROBIOLOGY - GENER AL ORDERABLES Performing Organization Address [facility] Co de Phone Number [facility] [place] [address] * CT Face w Contrast (11/19/2023 12:37 PM EDT) WORKSTATION ID [id number] RAD Anatomical Region Laterality Modality Head Computed Tomogra phy Impressions 11/19/2023 1:18 PM EDT Advanced osteomyelitis of the anterior RIGHT mandible. I have personally reviewed the image(s) and the resident's interpretation and agree with the findings, Marilou Perez MD at 11/19/2023 1:18 PM Thank you for letting us participate in the care of this patient. ??If you are a health care provider and have any questions regarding this report, please contact the number below. ??For patients who have questions please contact the health attending ambulatory care that requested your imaging first. ? Narrative 11/19/2023 1:18 PM EDT EXAMINATION: CT FACE W CONTRAST CLINICAL HISTORY: Mandibular swelling and pain with purulent discharge. Recent out of hospital CT with jaw infection TECHNIQUE: CT face performed after the intravenous administration of contrast. Administered 109.0 ml of OMNIPAQUE 350.00 mg/ml. COMPARISON: MRI brain 09/13/2018 FINDINGS: Patient is edentulous. Centered within the right anterior mandible, there is osteolytic/lucent destruction and surrounding sclerotic, reactive bone formation, with lucency measuring 1.4 x 1 x 2 cm. Is extensive inflammation of the overlying superficial soft tissues. There is no coalescent, peripherally enhancing fluid attenuating collection identified. Obstructive process involving the visualized maxillary air segment bones. The paranasal sinuses are mostly clear. Intraorbital contents are grossly normal.. Procedure Note Marilou Perez MD - 11/19/2023 EXAMINATION: CT FACE W CONTRAST CLINICAL HISTORY: Mandibular swelling and pain with purulent discharge.Recent out of hospital CT with jaw infection TECHNIQUE: CT face performed after the intravenous administration of contrast.Administered 109.0 ml of OMNIPAQUE 350.00 mg/ml. COMPARISON: MRI brain 09/13/2018 FINDINGS: Patient is edentulous. Centered within the right anterior mandible, there is osteolytic/lucent destruction and surrounding sclerotic, reactive bone formation, withlucency measuring 1.4 x 1 x 2 cm. Is extensive inflammation of the overlyingsuperficial soft tissues. There is no coalescent, peripherally enhancing fluidattenuating collection identified. Obstructive process involving the visualized maxillary air segmentbones. The paranasal sinuses are mostly clear. Intraorbital contents aregrossly normal.. IMPRESSION Advanced osteomyelitis of the anterior RIGHT mandible. I have personally reviewed the image(s) and the resident's interpretationand agree with the findings, Marilou Perez MD at 11/19/2023 1:18 PM Thank you for letting us participate in the care of this patient. If youare a health care provider and have any questions regarding this report,please contact the number below. For patients who have questions please contactthe health attending ambulatory care that requested your imaging first. Titus South MD IMG CT ORDERABLES * Gold Tube HOLD (11/19/2023 11:15 AM EDT) Gold Hold Sample in lab. [facility] Blood Venous Draw / Unknown 11/19/2023 11:15 AM EDT 11/19/2023 11:26 AM EDT Osorio CARR CHEMISTRY ORDERABLES Performing Organization Address City/[facility]/ZIP Co de Phone Number [facility] [place] [address] * Blue Tube HOLD (11/19/2023 11:15 AM EDT) Blue Hold Sample in lab. [facility] Blood Venous Draw / Unknown 11/19/2023 11:15 AM EDT 11/19/2023 11:26 AM EDT Osorio CARR HEMATOLOGY ORDERABLE S [facility] [place] [address] * Hemoglobin A1c (09/16/2018 3:33 PM EDT) Hemoglobin A1c 5.5 4.3 - 5.6 % [facility] Comment: Reference Range: 4.3 - 5.6% 5.7 - 6.4% - Increased Risk of Developing Diabetes Mellitus >= 6.5% - Consistent with diagnosis of Diabetes Mellitus In the absence of hyperglycemia (i.e. plasma glucose > 200 mg/dL) or classic symptoms of hyperglycemia a repeat measurement of HbA1c should be performed on a separate sample to confirm the diagnosis. Diagnosis and Classification of Diabetes Mellitus, Diabetes Care 2013; 36: Suppl. 1, E47-43 Estimated Average Glucose 111 mg/dL [facility] Comment: eAG equivalents for HbA1c percentages: HbA1c(%) ?eAG(mg/dL) 6.0 ?126 6.5 ?140 7.0 ?154 7.5 ?169 8.0 ?183 8.5 ?197 9.0 ?212 9.5 ?226 10.0 ? 240 Limitations: The eAG calculation has not been validated on women, individuals below 18 years old and above 70 years old, and individuals with hemoglobinopathies. Additional resources are available on the ADA website. Ari ROMERO, Carissa J, Jacqueline R, et al. ??Translating the A1C assay into estimated average glucose values. ??Diabetes Care 2008:31(8):9661-6966. Blood specimen (specimen) 09/16/2018 3:33 PM EDT 09/16/2018 3:49 PM EDT Narrative Resulting Agency Comment Spec In Lab Javad Urban MD CHEMISTRY ORDERABLES [facility] [place] [address] from Last 3 Months or Most Recently Relevant to Health Maintenance Advance Directives * Attempt Cardiopulmonary Resuscitation - Inpatient (Latest Code Status on File) Date Activated Date Inactivated Comments 11/19/2023 4:35 PM 11/21/2023 4:16 PM Question Answer Comments Code Status decision made by: Patient * Full Code Date Activated Date Inactivated Comments 09/14/2018 8:58 PM 09/20/2018 7:19 PM Question Answer Comments Does patient have capacity to make decision: Yes Care Teams Plumbing Technician Relationship Specialty Start Date End Date None None PCP - General 12/01/23
--- OUTSIDE RECORDS SUMMARY | 2024-02-09 14:56 | XMS_ITS | Encounter Summary ---
Author Organization [facility] Address [address] [facility] [place] [address] Care Team Providers Care Gamemaster Name Role Phone None Primary Care Provider Unavailabl e Encounter Details Date Type Department Care Team (Late st Contact Info) Description 12/17/2023 Interpretation Only Radiology [address] [facility] [place] [id number] Unknown None Social History Tobacco Use Types Packs/Day Years Used Date Smoking Tobacco: Every Day Cigarettes 06 21 Smokeless Tobacco: Never Comments:Currently using kalia otine inhaler to help herself quit (11/08/18) Alcohol Use Standard Drinks/Week Comments Not Currently 0 (1 standard drink = 0.6 oz pur e alcohol) [facility] Utilities Answer Date Recorded In [...] any time in the past 12 m [facility], were you homeless or living [...] Procedure Name Priority Date/Time Associated Diagnosis Comments CT FACIAL (CONEBEAM/PANOREX) Routine 12/17/2023 documented in this encounter Results * CT/DX Facial/Oral (ConeBeam/Panorex) (12/17/2023) Anatomical Region Laterality Modality Other 12/17/2023 Narrative 12/17/2023 12:00 AM EDT Photographs - Images Procedure Note Unknown - 12/17/2023 Photographs - Images Unknown EA IMAGES documented in this encounter Visit Diagnoses Not on filedocumented in this encounter Care Teams Gamemaster Relationship Specialty Start Date End Date None None PCP - General 12/01/23 documented as of this encounter
--- OUTSIDE RECORDS SUMMARY | 2024-02-09 14:56 | XMS_ITS | Encounter Summary ---
Author Organization [facility] Address [facility] [place] [address] Care Team Providers Care Bilingual Medical Receptionist Name Role Phone None Primary Care Provider Unavailabl e Encounter Details Date Type Department Care Team (Latest Contact Info) Description 12/17/2023 Travel Social History Tobacco Use Types Packs/Day Years Used Date Smoking Tobacco: Every Day Cigarettes 1 28 Smokeless Tobacco: Never Comments:Currently using kalia otine inhaler to help herself quit (11/08/18) Alcohol Use Standard Drinks/Week Comments Not Currently 0 (1 standard drink = 0.6 oz pur e alcohol) [facility] Utilities Answer Date Recorded In [...] any time in the past 12 m [facility], were you homeless or living in a [...] on filedocumented in this encounter Care Teams Bilingual Medical Receptionist Relationship Specialty Start Date End Date None None PCP - General 12/01/23 documented as of this encounter
--- OUTSIDE RECORDS SUMMARY | 2024-02-09 14:57 | XMS_ITS | Encounter Summary ---
Author Organization [facility] [place] [address] Care Team Providers Care Turntable Worker Name Role Phone Yamile De Leon APRN Primary Care Provider [phone] Reason for Referral * Consultation (Routine) - Closed Specialty Diagnoses / Procedures Referred By Bruce galo Referred To Contact Dermatology Diagnoses Breast lesion Yamile De Leon APRN [address] [place] [address] [facility] Dermatology [address] [place] [address] Referral ID Status Reason Start Date Expiration Date V isits Requested Visits Authorized [id number] Closed Consult, Test & Treat PCP Updated and/or Approved 10/11/2021 10/11/2022 6 6 Encounter Details Date Type Department Care Team (Late st Contact Info) Description 10/11/2021 Transcribe Orders eDH Incoming Referrals [phone] Yamile De Leon APRN [address], [place] [id number] Breast lesion Social History Tobacco Use Types Packs/Day Years Used Date Smoking Tobacco: Every Day Cigarettes 1 28 Smokeless Tobacco: Never Comments:Currently using kalia otine inhaler to help herself quit (11/08/18) Alcohol Use Standard Drinks/Week Comments Not Currently 0 (1 standard drink = 0.6 oz pur e alcohol) Sex and Gender Information Value Date Recorded Sex Assigned at Not on file Gender Identity Not on file Sexual Orientation Not on file documented as of this encounter Plan of Treatment Scheduled Referrals Name Type Priority Associated Diagnoses Order Schedule Referral to Dermatology Outpatient Referral Routine Breast lesion Ordered: 10/11/2021 documented as of this encounter Visit Diagnoses Diagnosis Breast lesion Unspecified breast disorder documented in this encounter Care Teams Turntable Worker Relationship Specialty Start Date End Date Yamile De Leon APRN PCP - General Family Medicine 10/01/18 11/19/23 documented as of this encounter
--- OUTSIDE RECORDS SUMMARY | 2024-02-09 14:57 | XMS_ITS | Encounter Summary ---
Author Organization [facility] Address [facility] [place] [address] Care Team Providers Care Certified Alcohol And Drug Counselor Name Role Phone None Primary Care Provider Unavailabl e Encounter Details Date Type Department Care Team (Late st Contact Info) Description 09/20/2018 Orders [place] [address] Buffy Comer PA [facility] [address] [place] [address] S/P ORIF bilateral foot fractures, 09/16/18 (Gitajn) Social History Tobacco Use Types Packs/Day Years Used Date Smoking Tobacco: Former Sex and Gender Information Value Date Recorded Sex Assigned at Not on file Gender Identity Not on file Sexual Orientation Not on file documented as of this encounter Plan of Treatment Not on file documented as of this encounter Results * XR Foot Min 3 views Bilat (Generic) (10/01/2018 9:16 AM EDT) Anatomical Region Laterality Modality Foot Bilateral Digital Radiogra phy Impressions 10/01/2018 9:51 AM EDT Fixation of bilateral complex foot fractures. There is no change in appearance since the prior study. Thank you for letting us participate in the care of this patient. For questions regarding this report, please contact the number below. ? Narrative 10/01/2018 9:51 AM EDT EXAMINATION: XR FOOT MIN 3 VIEWS BILAT (GENERIC) CLINICAL HISTORY: s/p bilateral foot ORIF TECHNIQUE: 3 views BILATERAL feet COMPARISON: September 16, 2018 September 12, 2018 FINDINGS: Right foot A cast is present and obscures fine bone detail. There has been a Lisfranc fracture dislocation. Repair has been performed with placement of three wires across the third, fourth and fifth metatarsal-phalangeal joints. There is plate and screw fixation of the second tarsal metatarsal joint. There is plate and screw fixation of the first tarsal metatarsal joint. Screws are also present in the cuneiforms. ??There has also been plate and screw fixation of a fracture of the proximal phalanx of the great toe. The appearance of the foot is unchanged since the prior study. Left foot A cast is present and obscures fine bone detail. There has been a fracture dislocation of the Lisfranc joint. Fractures are also seen in the necks of the second and third metatarsals and in the proximal phalanx of the fifth toe. Pins have been placed across the second, third and fourth metatarsophalangeal joints. The appearance of the foot is unchanged since prior study. Procedure Note Dileep Saunders MD - 10/01/2018 EXAMINATION: XR FOOT MIN 3 VIEWS BILAT (GENERIC) CLINICAL HISTORY: s/p bilateral foot ORIF TECHNIQUE: 3 views BILATERAL feet COMPARISON: September 16, 2018 September 12, 2018 FINDINGS: Right foot A cast is present and obscures fine bone detail. There has been a Lisfranc fracture dislocation. Repair has been performedwith placement of three wires across the third, fourth and fifth metatarsal-phalangeal joints. There is plate and screw fixation of thesecond tarsal metatarsal joint. There is plate and screw fixation of the firsttarsal metatarsal joint. Screws are also present in the cuneiforms. There hasalso been plate and screw fixation of a fracture of the proximal phalanx of thegreat toe. The appearance of the foot is unchanged since the prior study. Left foot A cast is present and obscures fine bone detail. There has been a fracture dislocation of the Lisfranc joint. Fractures arealso seen in the necks of the second and third metatarsals and in theproximal phalanx of the fifth toe. Pins have been placed across the second, thirdand fourth metatarsophalangeal joints. The appearance of the foot is unchangedsince prior study. IMPRESSION Fixation of bilateral complex foot fractures. There is no change inappearance since the prior study. Thank you for letting us participate in the care of this patient. Forquestions regarding this report, please contact the number below. Javad Urban MD IMG DX ORDERABLES documented in this encounter Visit Diagnoses Diagnosis S/P ORIF bilateral foot fractures, 09/16/18 (Gitajn) S/P ORIF bilateral foot fractures, 09/16/18 (Gitajn) documented in this encounter Care Teams Certified Alcohol And Drug Counselor Relationship Specialty Start Date End Date None None PCP - General 09/14/18 09/30/18 documented as of this encounter
--- OUTSIDE RECORDS SUMMARY | 2024-02-09 14:57 | XMS_ITS | Encounter Summary ---
Author Organization [facility] Address [facility] [place] [address] Care Team Providers Care Piece Worker Name Role Phone Yamile De Leon APRN Primary Care Provider [phone] Reason for Visit * Reason Comments Follow-up Encounter Details Date Type Department Care Team (Late st Contact Info) Description 11/08/2018 1:00 PM EDT [place] [address] German Gu III, MD [facility] [place] [address] Abdirahman Enamorado MD [facility] [place] [address] Hospital discharge follow-up Social History Tobacco Use Types Packs/Day Years Used Date Smoking Tobacco: Every Day Cigarettes 1 28 Smokeless Tobacco: Never Tobacco Cessation:Ready to Q uit: Yes; Counseling Given: Yes Comments:Currently using nicotine inhaler to help herself [...] - Weight 83 kg (183 lb) 11/08/2018 12:39 PM EDT unable to get on scale Height 154.9 cm (5' 1) 11/08/2018 12:3 9 PM EDT reported Body Mass Index 34.58 11/08/2018 12:39 PM EDT documented in this encounter Progress Notes * Abdirahman Enamorado MD - 11/08/2018 1:00 PM EDT NEUROLOGY CLINIC [facility] [place] [address] Facsimile: Neurology Initial Visit: 11/08/2018 Patient name: Jenae La Date of : 1965 CC: Post hospital follow-up for possible seizure-like activity Jenae La is seen today for follow-up regarding possible seizure-like activity [facility]. HPI: Jenae La is a 53 y.o. female with past medical history significant for type 2 diabetes, fibromyalgia, chronic opiate use, obstructive sleep apnea (on CPAP at home) who was seen by the neurology consult service in August 2018 for possible seizure-like activity. Patient was admitted to the orthopedic service after transfer from [facility] for bilateral ankle fractures. Per description of her presentation to [facility] patient possibly had seizure-like activity and wasstarted on Keppra prior to neurology's evaluation. Patient also had EEG obtained on 09/17/2018 whichdid not have any epileptiform activity noted. Discussion was had with the patient about continuing Keppra and at the time of our evaluation we did not believe that she had seizure activity and recommended against continuing on Keppra at that time. Patient [...] well. She is open to transition to bootsin the near future. In regards to her seizure-like activity, she notes that she has not had any further episodes such as she did that led her to the hospital. She also notes that since she left the hospital she has beencompletely off of her gabapentin (was on 900 [...] does not remember much of the initial partsof her hospitalization. However she feels as though her mentation is back to baseline and may be attimes even better. She once again attributes this [...] file Gets together: Not on file Attends jew service: Not on file Active member of [...] TABLET BY MOUTH THREE TIMES A DAY ASNEEDED FOR SEVERE BACK PAIN 0 ??? ranitidine (ZANTAC) 150 mg Tablet TAKE ONE TABLET BY MOUTH AT BEDTIME 2 ??? ibuprofen (ADVIL;MOTRIN) 600 mg Tablet TAKE ONE TABLET BY MOUTH THREE TIMES A DAY NEEDED FORPAIN 3 ??? acetaminophen (TYLENOL) 500 mg Tablet Take 2 tablets by mouth every 8 hours as needed for Pain.30 tablet 1 ??? BASAGLAR KWIKPEN U-100 INSULIN [...] papilledema, no meningismus, no pharyngeal erythema or exudates,no conjunctival injection, oral mucosa moist, no thrush, no carotid bruits, no thyromegaly, no lymphadenopathy CV: Regular rate, no murmur, gallops, rubs; no carotid bruit appreciated Resp: CTAB, good respiratory effort Abd: Soft, nontender, nondistended, normal bowel sounds Musculoskeletal: Normal bulk and tone. 5/5 strength in bilateral upper and lower extremities, normal gait, no atrophy or fasciculations Skin: Multiple tattoos [...] Her feet are still in casts but shewas given a good report the last time [...] since discharge and this is reassuring as herMRI during that presentation was also normal. She does have a history of migraines but believes that these are actually under better control at this time and did not want any adjustments in regards to the potential symptom management. She does not believe that she needs a neurologist at this time but notes that if she does have a new symptom she will likely call us at that [...] MD Neurology Resident - PGY-3 Personal Pager: [phone] 11/08/2018 Neurology Attending Attestation I saw and evaluated Jenae La with Dr. Wolfgang-Codie, neurology resident. I have reviewed themedical records and the patient's history during the visit and I agree with the details as written.My physical examination confirms the findings. ?? The assessment and plan were formulated in discussion with me at the time of the visit and I agree with them as documented. German Gu III, MD Pager: [phone] 3:14 PM 11/08/2018 documented in this encounter Plan of Treatment Not on file documented as of this encounter Visit Diagnoses Diagnosis Hospital discharge follow-up Other follow-up examination documented in this encounter Care Teams Piece Worker Relationship Specialty Start Date End Date Yamile De Leon APRN PCP - General Family Medicine 10/01/18 11/19/23 documented as of this encounter
--- OUTSIDE RECORDS SUMMARY | 2024-02-09 14:57 | XMS_ITS | Encounter Summary ---
Author Organization [facility] Address [facility] [place] [address] Care Team Providers Care Pants Presser Automatic Name Role Phone Yamile De Leon APRN Primary Care Provider [phone] Encounter Details Date Type Department Care Team (Late st Contact Info) Description 12/20/2018 Ancillary Procedure Radiology Library at [facility] [place] [address] Aparna Reed MD [facility] [place] [address] Social History Tobacco Use Types Packs/Day Years [...] Procedure Name Priority Date/Time Associated Diagnosis Comments FILM LIBRARY STORAGE ONLY DX FOOT Routine 12/20/2018 12:00 AM EDT documented in this encounter Results * Film Library- Storage Only DX Foot (12/20/2018 12:00 AM EDT) Narrative RAD - 01/27/2019 6:11 PM EDT This exam is auto-finalizing. It's purpose is for storage only. Aparna Reed MD IMG FILM LIBRARY ORD ERABLES [facility] [place], [place] documented in this encounter Visit Diagnoses Not on filedocumented in this encounter Care Teams Pants Presser Automatic Relationship Specialty Start Date End Date Yamile De Leon APRN PCP - General Family Medicine 10/01/18 11/19/23 documented as of this encounter
--- OUTSIDE RECORDS SUMMARY | 2024-02-09 14:57 | XMS_ITS | Encounter Summary ---
Author [facility] [place] [address] Care Team Providers Care Desulfurizer Machine Name Role Phone Yamile De Leon APRN Primary Care Provider [phone] Encounter Details Date Type Department Care Team (Late st Contact Info) Description 10/08/2018 10:45 AM EDT [place] [address] Cast discomfort Social History Tobacco Use Types Packs/Day Years Used Date Smoking Tobacco: Former Alcohol Use Standard Drinks/Week Comments Not Currently 0 (1 standard drink = 0.6 oz pur e alcohol) a sip once a year Sex and Gender Information Value Date Recorded Sex Assigned at Not on file Gender Identity Not on file Sexual Orientation Not on file documented as of this encounter Last Filed Vital Signs Vital Sign Reading Time Taken Comments Blood Pressure 131/74 10/08/2018 10:48 AM EDT Pulse 85 10/08/2018 10:48 AM EDT Temperature 36.4 ??C (97.6 ??F) 10/08/2018 10:48 AM E DT Respiratory Rate - - Oxygen Saturation - - Inhaled Oxygen Concentration - - Weight - - Height - - Body Mass Index - - documented in this encounter Progress Notes * Olivia Salinas - 10/08/2018 10:45 AM EDT Jenae La presents to the clinic today for a cast change due to discomfort. Patient reports her Right cast never loosened and feels tight. The patient's cast was removed by JESSICA Olivarez. The patient's pins are intact. The patient was discussed and seen by Mary Ellison PA-C. The pins werere-padded and a new well padded fiberglass short [...] aftercare documented in this encounter Care Teams Desulfurizer Machine Relationship Specialty Start Date End Date Yamile De Leon APRN PCP - General Family Medicine 10/01/18 11/19/23 documented as of this encounter
--- OUTSIDE RECORDS SUMMARY | 2024-02-09 14:57 | XMS_ITS | Encounter Summary ---
[place] [address] Care Team Providers Care Associate Professor Of Literacy Name Role Phone Yamile De Leon APRN Primary Care Provider [phone] Reason for Visit * Reason Onset Date Comments Medication Problem 10/12/2018 ? Lovenox dis continuation date Encounter Details Date Type Department Care Team (Late st Contact Info) Description 10/12/2018 Telephone [place] [address] Daja Gregorio RN Medication Problem (? Lovenox discontinuation date) Social History Tobacco Use Types Packs/Day Years [...] encounter Miscellaneous Notes * Telephone Encounter - Daja Gregorio RN - 10/14/2018 4:33 PM EDT Response from LILLY Eden: She can discontinue the lovanox on the original 10/15/18 date. Atthat point she should return to whatever she was previously taking for cardiac health. TC to Jenae - advised of response from LILLY Eden. Jenae stated that she will finish the Lovenox tomorrow and then will resume taking Aspirin as she had been taking prior to her surgery. * Telephone Encounter - Daja Gregorio RN - [...] to be sent to [facility] Smith in [place], [place] Concerns communicated to LILLY Eden via In Basket. documented in this encounter Plan of Treatment Not on file documented as of this encounter Visit Diagnoses Not on filedocumented in this encounter Care Teams Associate Professor Of Literacy Relationship Specialty Start Date End Date Yamile DeL eon APRN PCP - General Family Medicine 10/01/18 11/19/23 documented as of this encounter
--- OUTSIDE RECORDS SUMMARY | 2024-02-09 14:57 | XMS_ITS | Encounter Summary ---
[place] [address] Care Team Providers Care Poultry Hatchery Supervisor Name Role Phone Yamile De Leon APRN Primary Care Provider [phone] Encounter Details Date Type Department Care Team (Latest Contact Info) Description 06/24/2022 Travel Social History Tobacco Use Types Packs/Day [...] on filedocumented in this encounter Care Teams Poultry Hatchery Supervisor Relationship Specialty Start Date End Date Yamile De Leon APRN PCP - General Family Medicine 10/01/18 11/19/23 documented as of this encounter
--- OUTSIDE RECORDS SUMMARY | 2024-02-09 14:57 | XMS_ITS | Encounter Summary ---
Author Organization [facility] Address [facility] [place] [address] Care Team Providers Care Veterinary Anatomist Name Role Phone Yamile De Leon APRN Primary Care Provider [phone] Reason for Visit * Reason Comments Follow Up Surgery ORIF bilat foot fx, DOS 09.16.18 Encounter Details Date Type Department Care Team (Late st Contact Info) Description 10/01/2018 11:00 AM EDT Office [place] [phone] Mary Ellison PA [facility] DR ORTHOPAEDIC SURGERY [place] [id number] S/P ORIF bilateral foot fractures, 09/16/18 (Gitajn) [...] 36.6 ??C (97.8 ??F) 10/01/2018 10:59 AM E DT Respiratory Rate - - Oxygen Saturation - - Inhaled Oxygen Concentration - - Weight - - Height - - Body Mass Index - - documented in this encounter Progress Notes * Mary Ellison PA - 10/01/2018 11:00 AM EDT PATIENT NAME: Jenae La AGE: 53 y.o. MR#: [id number] DATE OF VISIT: 10/01/2018 CHIEF COMPLAINT: Hospital [...] well. She denies fever, chills, drenching night sweats. She has been using [place] for pain relief and using Lovenox for DVT prophylaxis. She does complainof low level nausea since the surgery. She has [...] third fourth and fifth metatarsal phalangeal joint which protrude dorsally. Plate and screw fixation of the [...] of Jenae La's chief complaint. We reviewed theimaging together which is described above Sutures were removed today in clinic. Steri strips need to remain in place for at least one week. Showers are ok, however please do not submerge the incisionuntil the scabs have been replaced by scars. The dorsal incision is somewhat erythematous and painful to touch. We will wait to remove the sutures for another 2 weeks. I have also called in a prescription for Keflex. We discussed that she will need to take this and completion. During suture removal the pt became diaphoretic and felt unwell. Her glucose was checked and was within normal limets. We gave her some water, juice and crackers and she began feeling better. We wereable to remove the remainder of the sutures [...] dictation was made with voice recogonition software * Olivia Salinas - 10/01/2018 11:00 AM EDT [...] (Gitajn) documented in this encounter Care Teams Veterinary Anatomist Relationship Specialty Start Date End Date Yamile De Leon APRN PCP - General Family Medicine 10/01/18 11/19/23 documented as of this encounter
--- OUTSIDE RECORDS SUMMARY | 2024-02-09 14:57 | XMS_ITS | Encounter Summary ---
Author Organization [facility] [place] [address] Care Team Providers Care Flour Broker Name Role Phone Yamile De Leon CARLOS Primary Care Provider [phone] Reason for Referral * Consultation (Routine) - Closed Specialty Diagnoses / Procedures Referred By Bruce t Referred To Contact Dermatology Diagnoses Breast lesion Whitney Vanegas PA [address] [place] [address] [facility] Dermatology [address] [place] [address] Referral ID Status Reason Start Date Expiration Date V isits Requested Visits Authorized [id number] Closed Consult, Test & Treat PCP Updated and/or Approved 01/02/2022 01/02/2023 12 12 Encounter Details Date Type Department Care Team (Late st Contact Info) Description 01/02/2022 Transcribe Orders eDH Incoming Referrals [phone] Whitney Vanegas PA [address] [place], [place] [address] Breast lesion Social History Tobacco Use Types [...] Dermatology Outpatient Referral Routine Breast lesion Ordered: 01/02/2022 documented as of this encounter Visit Diagnoses Diagnosis Breast lesion Unspecified breast disorder documented in this encounter Care Teams Flour Broker Relationship Specialty Start Date End Date Yamile De Leon APRN PCP - General Family Medicine 10/01/18 11/19/23 documented as of this encounter
--- OUTSIDE RECORDS SUMMARY | 2024-02-09 14:57 | XMS_ITS | Encounter Summary ---
Author Organization [facility] Address [facility] [address] Care Team Providers Care Singer Songwriter Name Role Phone Yamile De Leon APRN Primary Care Provider [phone] Reason for Visit * Reason Comments Foot Injury XR, ORIF Bilateral F oot Fx 09/16/18 (Lanettejrachael) Encounter Details Date Type Department Care Team (Late st Contact Info) Description 10/25/2018 11:30 AM EDT Office [place] [address] Aparna Reed MD [facility] [place] [address] S/P ORIF bilateral foot fractures, 09/16/18 (Kamilaajrachael) Social History Tobacco Use Types Packs/Day Years Used Date Smoking Tobacco: Never Smokeless Tobacco: Never Alcohol Use Standard Drinks/Week Comments Not Currently [...] encounter Progress Notes * Olivia Salinas - 10/25/2018 11:30 AM EDT Jenae La presents to the clinic for a cast off per Dr. Reed. The casts were intact upon arrival. The patient was explained how the cast saw works and the casts were removed. The patient tolerated this procedure well. The patient's pins were intact.The patient was then sent to x-ray. * Aparna Reed MD - 10/25/2018 11:30 AM EDT Jenae La returns in follow-up 6 weeks s/p ORIF of bilateral crushed feet. She reports she isdoing well. Her pain is well controlled. She has been doing well at home, non-weight bearing. [facility] FollowUp 10/01/2018 Health in general Good [...] to proceed with. In the interim, she would prefer to follow-up with Dr. Peña, closer to home. Plan for short leg casts for another 4-6weeks, then transition to aicast boots and weight bear as tolerated starting in 6 weeks. She will follow-up with me in about 5 months to discuss hardware removal. Michelle Reed MD Department of Orthopaedic Surgery 10/25/18 * Olivia Salinas - 10/25/2018 11:30 AM EDT [...] Diagnosis S/P ORIF bilateral foot fractures, 09/16/18 (Brianna) documented in this encounter Care Teams Singer Songwriter Relationship Specialty Start Date End Date Yamile De Leon APRN PCP - General Family Medicine 10/01/18 11/19/23 documented as of this encounter
--- OUTSIDE RECORDS SUMMARY | 2024-02-09 14:57 | XMS_ITS | Encounter Summary ---
Author Organization [facility] [place] [address] Care Team Providers Care Knurling Machine Tender Name Role Phone Yamile De Leon BATTER SCALER Primary Care Provider [phone] Reason for Visit * Reason Comments Foot Pain ORIF METATARSAL FX, EACH (WRVU 7.44) (Bilateral DOS 09/16/2018 Encounter Details Date Type Department Care Team (Late st Contact Info) Description 11/08/2018 2:30 PM EDT Office [place] [address] Cast discomfort Social History Tobacco Use Types [...] 154.9 cm (5' 0.98) 11/08/2018 3:52 PM ED T Body Mass Index 34.6 11/08/2018 3:52 PM EDT documented in this encounter Progress Notes * Chad Campo MD - 11/08/2018 2:30 PM EDT Orthopaedic Surgery Consult Note Attending: Dr. Reed Chief Complaint: Bilateral cast discomfort History of Present Illness: Jenae La is a 53 y.o. female who is approximately 8 weeks s/p ORIF of bilateral feet. She reports she is doing well and her pain is well controlled, but she is having some discomfort with her casts as her VNA [...] 3.24) performed by Aparna Reed MD at [facility] MAIN OR ??? PRO OPEN TREATMENT METATARSAL FRACTURE EACH Bilateral 09/16/2018 ORIF METATARSAL FX, EACH (WRVU 7.44) performed by Aparna Reed MD at [facility] MAIN OR ??? PRO OPEN TREATMENT TARSOMETATARSAL JOINT DISLOCATION Right 09/16/2018 OPEN TREAMENT TARSOMETATARSAL JOINT DISLOCATION (WRVU 10.7) performed by Aparna Reed MD at [facility] MAIN OR ??? PRO OPEN TX FRACTURE GREAT TOE/PHALANX/PHALANGES Right 09/16/2018 ORIF GREAT TOE (WRVU 7.44) performed by Aparna Reed MD at [facility] MAIN OR ??? PRO PERCUT TREAT METATARSAL FX Left 09/16/2018 PERCUTANEOUS PINNING, METATARSAL FX, EA. (WRVU 3.6) performed by Aparna Reed MD at [facility] MAIN OR ??? PRO PERCUT TREAT TAR-METATAR FOOT DISLOC Right 09/16/2018 PERCUTANEOUS PINNING, TARSOMETATARSAL JOINT DISLOCATION (WRVU 5.09) performed by Aparna Reed MD at [facility] MAIN OR ??? SHOULDER ARTHROSCOPY Bilateral Allergies [...] Disk with Device Inhale 1 puff into thelungs every 12 hours. ??? pantoprazole (PROTONIX) 20 [...] ONE TABLET BY MOUTH EVERY NIGHT AT BEDTIME3 ??? [DISCONTINUED] CIS Free Text Med - [...] file Gets together: Not on file Attends oriental orthodox service: Not on file Active member of [...] weeks s/p surgery. She did report to cast tech room today as she is having some discomfort with her casts and would like better access to her feet to ensure she is not getting infected wounds due to her diabetes (no signs of infection on this visit). Adjusted b/l short leg casts to allow for brief removal of dorsal shell for wound inspection. Otherwise, she will remain in b/l short leg [...] ?? Chad Campo MD Orthopaedic Surgery Pager: [phone] ? * Leta Mitchell Jessica - 11/08/2018 2:30 PM EDT Jenae La presents to the clinic today for removal of bilateral leg casts, lining and reapplication . The patient's casts were removed. The patient had a deep scab on the dorsum of her right foot. There is no redness, swelling or erythema, no indications for infection. The casts were re-linedand reapplied. The patient tolerated the procedure well. The patient was given instruction for castcare and was given instruction to call the clinic with any questions or concerns. documented in this encounter Plan of Treatment Not on file documented as of this encounter Visit Diagnoses Diagnosis Cast discomfort Other orthopedic aftercare documented in this encounter Care Teams Knurling Machine Tender Relationship Specialty Start Date End Date Yamile De Leon APRN PCP - General Family Medicine 10/01/18 11/19/23 documented as of this encounter
--- OUTSIDE RECORDS SUMMARY | 2024-02-09 14:57 | XMS_ITS | Encounter Summary ---
Author Organization [facility] Address [facility] [place] [address] Care Team Providers Care Sign Maker Name Role Phone Yamile De Leon APRN Primary Care Provider [phone] Encounter Details Date Type Department Care Team (Late st Contact Info) Description 11/22/2018 Ancillary Procedure Radiology Library at [facility] [place] [address] Aparna Reed MD [facility] [place] [address] Social History Tobacco Use Types Packs/Day Years [...] FILM LIBRARY STORAGE ONLY DX FOOT Routine 11/22/2018 12:00 AM EDT documented in this encounter Results * Film Library- Storage Only DX Foot (11/22/2018 12:00 AM EDT) Narrative RAD - 01/27/2019 6:09 PM EDT This exam is auto-finalizing. It's purpose is for storage only. Aparna Reed MD IMG FILM LIBRARY ORD ERABLES [facility] [place], [place] documented in this encounter Visit Diagnoses Not on filedocumented in this encounter Care Teams Sign Maker Relationship Specialty Start Date End Date Yamile De Leon APRN PCP - General Family Medicine 10/01/18 11/19/23 documented as of this encounter
--- OUTSIDE RECORDS SUMMARY | 2024-02-09 14:57 | XMS_ITS | Encounter Summary ---
Author Organization [facility] Address [facility] [place] [address] Care Team Providers Care Rapier Insertion Loom Fixer Name Role Phone Yamile De Leon APRN Primary Care Provider [phone] Encounter Details Date Type Department Care Team (Late st Contact Info) Description 10/08/2018 Notes [place] [address] Mary Ellison PA [facility] DR ORTHOPAEDIC SURGERY [place] [id number] Social History Tobacco Use Types Packs/Day Years [...] as of this encounter Progress Notes * Mary Ellison PA - 10/08/2018 10:24 AM EDT Images from the original note were not included. PATIENT NAME: Jenae aL AGE: 53 y.o. MR#: [id number] DATE OF VISIT: 10/08/2018 CHIEF COMPLAINT: Hospital [...] nature of Jenae La's chief complaint. Photographs were removed with Dr. Reed. These are looking good. It is not uncommon for a pt to have some discomfort about the pins from irritation. Steri strips were [...] other questions or concerns. [facility] Mary Ellison PA-C The above dictation was made with voice recogonition software documented in this encounter Plan of Treatment Not on file documented as of this encounter Visit Diagnoses Not on filedocumented in this encounter Care Teams Rapier Insertion Loom Fixer Relationship Specialty Start Date End Date Yamile De Leon APRN PCP - General Family Medicine 10/01/18 11/19/23 documented as of this encounter
--- OUTSIDE RECORDS SUMMARY | 2024-02-09 14:57 | XMS_ITS | Encounter Summary ---
Author Organization [facility] Address [facility] [place] [address] Care Team Providers Care Bailiff Name Role Phone Yamile De Leon APRN Primary Care Provider [phone] Encounter Details Date Type Department Care Team (Late st Contact Info) Description 10/21/2018 Orders [place] [address] Aparna Reed MD [facility] [place] [address] S/P ORIF bilateral foot fractures, 09/16/18 (Brianna) Social History Tobacco Use Types Packs/Day Years [...] Modality Foot Bilateral Digital Radiogra phy Impressions 10/25/2018 3:36 PM EDT Progressive interval healing of multiple bilateral foot fractures, status post ORIF of bilateral Lisfranc fracture-dislocations as well as ORIF of a right first proximal phalangeal base fracture and left second and third metatarsal neck fractures, in unchanged alignment, without evidence of complication. I have personally reviewed the image(s) and the residents interpretation and agree with the findings, Gretchen Odell at 10/25/2018 3:36 PM Thank you for letting us participate in the care of this patient. For questions regarding this report, please contact the number below. ? Electronically signed by: Gretchen Odlel [facility] ([phone]), at 10/25/2018 3:36 PM Narrative 10/25/2018 3:36 PM EDT EXAMINATION: XR FOOT MIN 3 VIEWS BILAT (GENERIC) CLINICAL HISTORY: Bilateral foot fractures. TECHNIQUE: 3 views BILATERAL feet Lateral, oblique, and AP views of the bilateral feet were obtained with the patient nonweightbearing COMPARISON: Fluoroscopic images dated 09/16/2018 Foot radiographs dated 09/16/2018 and 10/01/2018 CT images of the bilateral feet dated 09/12/2018. FINDINGS: Right foot: Status post open reduction and internal fixation of a Lisfranc fracture-dislocation with mtdfk-cwy-dyfyn constructs traversing the first and second tarsometatarsal joints and 3 Yaw wires traversing the third through fifth tarsometatarsal joints. Also status post blctdclne-etf-rfddy fixation of an intra-articular first proximal phalangeal base fracture. No significant change in the appearance of the hardware. Fracture alignment appears intact and unchanged. There is slight interval increase in callus and bony bridging at the fracture sites compatible with progressive interval healing. There also appears to be progressive interval healing of the previously described intra-articular second proximal phalangeal base fracture, which is also in unchanged anatomic alignment. Left foot: Status post open reduction and internal fixation of second and third metatarsal neck fractures and a Lisfranc fracture-dislocation with a llwhe-jiw-blwgi construct traversing the fourth metatarsal base fracture and Yaw wires traversing the second and third metatarsal necks and the fourth tarsometatarsal joint. No significant change in the appearance of the hardware. Fracture alignment appears intact and unchanged. There is slight interval increase in callus and bony bridging at the fracture sites compatible with progressive interval healing. Procedure Note Gretchen Odell MD - 10/25/2018 EXAMINATION: XR FOOT MIN 3 VIEWS BILAT (GENERIC) CLINICAL HISTORY: Bilateral foot fractures. TECHNIQUE: 3 views BILATERAL feet Lateral, oblique, and AP views of the bilateral feet were obtained withthe patient nonweightbearing COMPARISON: Fluoroscopic images dated 09/16/2018 Foot radiographs dated 09/16/2018 and 10/01/2018 CT images of the bilateral feet dated 09/12/2018. FINDINGS: Right foot: Status post open reduction and internal fixation of a Lisfranc fracture-dislocation with qpjfo-jxh-kusxu constructs traversing the firstand second tarsometatarsal joints and 3 Yaw wires traversing the thirdthrough fifth tarsometatarsal joints. Also status post qgvyajjpe-rzj-injejpdehtxbn of an intra-articular first proximal phalangeal base fracture. Nosignificant change in the appearance of the hardware. Fracture alignment appearsintact and unchanged. There is slight interval increase in callus and bony bridgingat the fracture sites compatible with progressive interval healing. There alsoappears to be progressive interval healing of the previously describedintra-articular second proximal phalangeal base fracture, which is also in unchangedanatomic alignment. Left foot: Status post open reduction and internal fixation of second and thirdmetatarsal neck fractures and a Lisfranc fracture-dislocation with xhtvuj-sae-scjkt construct traversing the fourth metatarsal base fracture and Kirschnerwires traversing the second and third metatarsal necks and the fourthtarsometatarsal joint. No significant change in the appearance of the hardware. Fracture alignment appears intact and unchanged. There is slight interval increasein callus and bony bridging at the fracture sites compatible withprogressive interval healing. IMPRESSION Progressive interval healing of multiple bilateral foot fractures, statuspost ORIF of bilateral Lisfranc fracture-dislocations as well as ORIF of aright first proximal phalangeal base fracture and left second and thirdmetatarsal neck fractures, in unchanged alignment, without evidence ofcomplication. I have personally reviewed the image(s) and the residents interpretationand agree with the findings, Gretchen Odell at 10/25/2018 3:36 PM Thank you for letting us participate in the care of this patient. Forquestions regarding this report, please contact the number below. Electronically signed by: Gretchen Odell [facility] ([phone]),at 10/25/2018 3:36 PM Aparna Reed MD IMG DX ORDERABLES documented in this encounter Visit Diagnoses Diagnosis S/P ORIF bilateral foot fractures, 09/16/18 (Brianna) S/P ORIF bilateral foot fractures, 09/16/18 (Brianna) documented in this encounter Care Teams Bailiff Relationship Specialty Start Date End Date Yamile De Leon APRN PCP - General Family Medicine 10/01/18 11/19/23 documented as of this encounter
--- OUTSIDE RECORDS SUMMARY | 2024-02-09 14:57 | XMS_ITS | Encounter Summary ---
Author Organization [facility] Address [facility] [place] [address] Care Team Providers Care Assistant Women'S Tennis Coach Name Role Phone Yamile De Leon APRN Primary Care Provider [phone] Encounter Details Date Type Department Care Team (Late st Contact Info) Description 03/30/2019 Telephone [place] [phone] Javad Urban MD [facility] DR ORTHOPAEDIC SURGERY [place] [phone] Social History Tobacco Use Types Packs/Day Years [...] encounter Miscellaneous Notes * Telephone Encounter - Kinga Palacios - 03/30/2019 8:25 AM EST Received a call from Stacey requesting a signed order from Dr. Urban for Jenae, as it is for their billing. She has faxed over the paperwork multiple times and on multiple dates. The patient is also a patient of Dr. Andino. I will review this with Dr. Urban and Dr. Reed to see who is still continuing care. Will fax signed paperwork back to [phone]. documented in this encounter Plan of Treatment Not on file documented as of this encounter Visit Diagnoses Not on filedocumented in this encounter Care Teams Assistant Women'S Tennis Coach Relationship Specialty Start Date End Date Yamile De Leon APRN PCP - General Family Medicine 10/01/18 11/19/23 documented as of this encounter
--- OUTSIDE RECORDS SUMMARY | 2024-02-09 14:57 | XMS_ITS | Encounter Summary ---
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 Name Role Phone Unknown Primary Care Provider Unavailabl e Reason for Referral * Consultation (Routine) - Authorized Specialty Diagnoses / Procedures Referred By Contac t Referred To Contact Infectious Diseases Diagnoses Osteomyelitis, unspecified site, unspecified [place] [address] [facility] [address] [place] [phone] Referral ID Status Reason Start Date Expiration Date Visits Requested Visits Authorized [id number] Authorized Specialty Service Requested 11/21/2023 11/20/2024 1 1 Reason for Visit * Reason Comments Dental Pain * Auth/Cert (Routine) Specialty Diagnoses / Procedures Referred By Contac t Referred To Contact Diagnoses Osteomyelitis [place] [address] [facility] [place] Referral ID Status Reason Start Date Expiration Date Visits Re quested Visits Authorized [id number] 1 1 Encounter Details Date Type Department Care Team (Latest Contact Info) Description 11/19/2023 10:47 AM EDT - 11/21/2023 2:10 PM EDT Hospital Encounter Medical Specialites Unit Level 1 [place] [address] [place] [address] Chiquita Azul MD [facility] [place] [address] [place] [address] [place] [address] Hypertension, unspecified type; Osteomyelitis, jaw acute; Osteomyelitis, [...] th e electric, gas, oil, or water [employer] threatened to shut off services in your [...] any time in the past [facility], were you homeless or living in a long term (including now)? No 11/20/2023 DH IPV Inpatient [...] Sign Reading Time Taken Comments Blood Pressure 144/83 11/21/2023 8:02 AM EDT Pulse 74 11/20/2023 11:40 AM EDT Temperature 36.9 ??C (98.4 ??F) 11/21/2023 8:02 AM ED T Respiratory Rate 16 11/21/2023 8:02 AM EDT Oxygen Saturation 98% 11/21/2023 11:27 AM EDT Inhaled Oxygen Concentration - - Weight 70.3 kg (155 lb) 11/19/2023 10:37 AM EDT Height 154.9 cm (5' 0.98) 11/20/2023 3:00 AM ED T Body Mass Index 29.3 11/19/2023 10:37 AM EDT documented in this encounter Discharge Summaries * Jeramie Rodriguez MD - 11/21/2023 1:45 PM EDT Images from the original note were not included. Discharge Summary Patient Name: Erickson La Patient Age: 58 y.o. Language: Citizen Of [place] Race: White Ethnicity: Not nor Admit date: 11/19/2023 Discharge date and time: 11/21/2023 1:45 PM Attending Physician: Jeramie Rodriguez MD Discharge Physician: JERAMIE RODRIGUEZ MD Follow-up Recommendations for Providers: Pt needs ID follow up next week to further define the plan for her mandibular osteomyelitis, current treatment with Augmentin is unlikely to be curative. Inpatient Provider Contact Information: For questions regarding this document or issues relating to this hospitalization on the Medical Service, please contact your inpatient physician through the [facility] Store Team Member . Issues afterhours and on weekends will be handled by the Hospitalist staff on-call. Discharge Diagnoses (Hospital Problems) and Secondary Diagnoses (Chronic Problems): Active Hospital Problems Diagnosis Osteomyelitis of anterior right mandible Hot flashes LORRI on CPAP Gastroesophageal reflux Hypertension Type 2 diabetes mellitus without complication, with long-term current use of insulin Chronic pain Resolved Hospital Problems No resolved problems to display. Active Non-Hospital Problems Diagnosis Hyperlipidemia S/P ORIF bilateral foot fractures, 09/16/18 (Gitajn) Psoriasiform dermatitis History of Presentation: This is a 58 y.o. female smoker with a history of hypertension, chronic back pain, severe hot flashes, LORRI generally not using home CPAP, and non-insulin dependent diabetes mellitus who presents withjaw pain. This began after treatment for a dental infection in July. After an antibiotic course, she was referred to a dentist for extraction and ended up having multiple lower teeth removed. She developed pain in one specific socket and was treated for dry socket after being evaluated at an [facility] site. She had two additional antibiotics courses for non-resolving right lower jaw pain and purulence into her mouth. Ultimately underwent CT scan last Thursday, which was reviewed earlier this week. She was advised that she would probably need to come here for management as I gather this was showing evidence of osteomyelitis. No one was able to arrange for timely outpatient facial surgeon evaluation,earliest appt was late November but others were into March. Thus she was advised to come here today for evaluation. VS have been unremarkable but labs notable for WBC 14.[address] face CT was concerning for advanced osteomyelitis of the anterior right mandible. She was evaluated by ENT who recommended IV antibiotics. Of note, patient reports getting yeast infections even after just a day or two of antibiotics. She drinks unregulated amounts of regular sugar Pepsi and is very anxious about having to follow any kind of restrictive diet. She reports her recent HbA1c was < 7% though the records are not availableto me. She wears a CGM and notes rarely being > 200 despite her diet. No alcohol or illicit drug use. Smokes 0.5 ppd since age 15. Hospital Course: The patient was admitted to the hospital medicine service for mandibular osteomyelitis due to dental infection The patient was evaluated by ENT service, who obtained cultures from the draining tooth socket. Further surgical exploration would need to be performed by the oral surgery team, which was unavailableduring her hospital stay. She was treated with intravenous pip-tazo, and had a marked decrease in her drainage and pain. Infectious disease was consulted, and felt that long-term IV antibiotics was likely to be needed. Her culture results were growing gram-positive cocci at the time of discharge, further identification is likely in the next several days. Given the unavailability of oral surgery, the decision was made to discharge her on Augmentin and await final culture results. Infectious disease will follow-up with her next week to determine next steps, which might include placement of a PICC and IV antibiotics versus an oral regimen depending onher culture results. Further surgical exploration with oral surgery is also a possibility upon their availability. Her diabetes was controlled with just sliding scale insulin, of which she needed relatively minimalamounts. Her pain responded well to morphine IR 7.5 mg, and she will be discharged with a small prescription for this as her osteomyelitis heals. Vital Signs at Discharge: BP: 144/83, Heart Rate: 74, Temp: 36.9 ??C (98.4 ??F), Resp: 16, Height: 154.9 cm (5' 0.98) (11/20/23 0300) Weight: 70.3 kg (155 lb) (11/19/23 1037) Important Studies and Lab Data: Labs: Recent Labs 11/21/23 0525 11/20/23 0142 11/19/23 1115 WBC 7.0 8.6 14.9* HGB 11.5* 10.9* 12.8 HCT 34.7* 32.8* 38.7 PLATELET 247 260 326 Recent Labs 11/21/23 0525 11/20/23 0142 11/19/23 1115 NA 143 142 143 K 3.6 3.2* 3.8 CL 111* 113* 111* CO2 22 18* 20* BUN 15 12 18 CREATININE 0.93 0.83 0.90 No results for input(s): AST, ALT, ALKPHOS, BILITOT, BILIDIR in the last 168 hours. Recent Labs 11/21/23 0525 11/20/23 0142 11/19/23 1115 CALCIUM 8.4* 7.9* 9.5 Microbiology Results (Last 30 days) Procedure Component Value Units Date/Time Urine culture [[id number]] Collected: 11/20/23 0722 Lab Status: Final result Specimen: First Catch Urine Updated: 11/21/23 0752 Urine Culture No growth (Less than 1,000 cfu/ml). Abscess/Wound Asp Culture, Aerobic and Anaerobic Fluid; Other [[id number]] (Abnormal) Collected: 11/19/23 1643 Lab Status: Preliminary result Specimen: Fluid from Other Updated: 11/21/23 1302 Abscess/Wound Aspirate Culture [[id number]] (Abnormal) Collected: 11/19/23 164 Lab Status: Preliminary result Specimen: Fluid from Other Updated: 11/21/23 1302 Abscess/Wound Aspirate Culture -- Moderate Streptococcus milleri, anginosis group Rare normal oropharyngeal shala Gram Stain -- Many Neutrophils seen Rare Gram Positive Cocci seen Anaerobic Culture [[id number]] Collected: 11/19/23 164 Lab Status: Preliminary result Specimen: Fluid from Other Updated: 11/20/23 1417 Anaerobic Culture No anaerobic organisms isolated to date Studies: Results for orders placed or performed during the hospital encounter of 11/19/23 CT Face w Contrast (Exam End: 11/19/2023 12:37 PM) Result Value WORKSTATION ID [id number] Impression Advanced osteomyelitis of the anterior RIGHT mandible. I have personally reviewed the image(s) and the resident's interpretation and agree with the findings, Marilou Perez MD at 11/19/2023 1:18 PM Thank you for letting us participate in the care of this patient. If you are a health care provider and have any questions regarding this report, please contact the number below. For patients who have questions please contact the health health care legal assistant that requested your imaging first. Electronically signed by: Marilou Perez MD, [facility] ([phone]), at 11/19/2023 1:18 PM Updated Allergies/ADRs: Allergies Allergen Reactions Bee Sting [Hymenoptera Allergenic Extract] Other (See Comments) Swelling Sulfa (Sulfonamide Antibiotics) Tape, Occlusive Adhesive Immunizations Given this Hospitalization: There is no immunization history on file for this patient. Discharge Medications: Your Medications New Medications Dose Details amoxicillin-clavulanate 875-125 mg tablet Commonly known as: Augmentin Take 1 tablet by mouth 2 times daily for 14 days. 1 tablet Quantity: 28 tablet Refills: 0 morphine IR 15 mg IR tablet Commonly known as: MS IR Take 0.5 tablets by mouth every 4 hours as needed for Pain. 7.5 mg Quantity: 25 tablet Refills: 0 Continued medications, unchanged Dose Details baclofen 10 mg tablet Commonly known as: Lioresal Take 1 tablet by mouth Three Times Daily for DHE. 1 tablet Refills: 0 celecoxib 100 mg capsule Commonly known as: CeleBREX Take 100 mg by mouth 2 times daily. 100 mg Refills: 0 cloNIDine 0.1 mg tablet Commonly known as: Catapres Take 0.05 mg by mouth daily. Indications: change of life signs 0.05 mg Refills: 0 doxepin 10 mg capsule Commonly known as: SINEquan Take 10 mg by mouth nightly. 10 mg Refills: 0 ezetimibe 10 mg tablet Commonly known as: Zetia Take 10 mg by mouth daily. 10 mg Refills: 0 famotidine 20 mg tablet Commonly known as: Pepcid Take 20 mg by mouth nightly. 20 mg Refills: 0 losartan 50 mg tablet Commonly known as: Cozaar Take 100 mg by mouth daily. 100 mg Refills: 0 meclizine 25 mg tablet Commonly known as: Antivert Take 1 tablet by mouth 3 times daily as needed for Nausea. Indications: prevention of motion sickness 1 tablet Refills: 0 montelukast 10 mg tablet Commonly known as: Singulair Take 10 mg by mouth daily. 10 mg Refills: [address] capsule Commonly known as: PriLOSEC Take 20 mg by mouth every morning. 20 mg Refills: 0 Ozempic 0.25 mg or 0.5 mg (2 mg/3 mL) Pen Injector Inject 0.25 mg subcutaneously once a week. Generic drug: semaglutide 0.25 mg Refills: 0 simvastatin 40 mg tablet Commonly known as: Zocor Take 1 tablet by mouth daily. 1 tablet Refills: 0 traMADoL 50 mg tablet Commonly known as: Ultram Take 50 mg by mouth every 8 hours as needed for Pain. 50 mg Refills: 0 zolpidem 10 mg tablet Commonly known as: Ambien Take 10 mg by mouth nightly as needed for Sleep. 10 mg Refills: 0 STOPPED Medications acetaminophen 500 mg tablet Commonly known as: Tylenol albuteroL (2.5 mg/3 mL) (0.083 %) Solution for Nebulization Commonly known as: Proventil, Ventolin albuteroL 90 mcg/actuation inhaler (HFA) clobetasoL 0.05 % Ointment Commonly known as: Temovate fluconazole 150 mg tablet Commonly known as: Diflucan fluticasone propionate-salmeteroL 250-50 mcg/dose inhaler (DPI) Commonly known as: Advair Diskus HYDROcodone-acetaminophen 5-325 mg tablet Commonly known as: [place] ibuprofen 600 mg tablet Commonly known as: Advil Insulin Basaglar KwikPen U-100 100 unit/mL (3 mL) pen Generic drug: insulin glargine Magnesium Oxide 250 mg magnesium Tablet meloxicam 15 mg tablet Commonly known as: Mobic metFORMIN 500 mg tablet Commonly known as: Glucophage mupirocin 2 % Ointment Commonly known as: Bactroban ondansetron 4 mg tablet Commonly known as: Zofran Protonix [address] tablet Generic drug: pantoprazole EC ranitidine 150 mg tablet Commonly known as: Zantac venlafaxine 150 mg ER 24 hr capsule Commonly known as: Effexor-XR Smoking Status at Discharge: Social History Tobacco Use Smoking Status Every Day Current packs/day: 1.00 Average packs/day: 1 pack/day for 28.0 years (28.0 ttl pk-yrs) Types: Cigarettes Smokeless Tobacco Never Tobacco Comments Currently using nicotine inhaler to help herself quit (11/08/18) Instructions Given to Patient at Discharge: Patient Instructions Instruction after leaving the hospital Why you were hospitalized: Infection in your jaw Call your doctor or seek medical attention if you develop the following: Fevers, increased drainage, increased pain Activity level: As tolerated Diet: No restrictions Driving: No driving if using pain medication General Instructions None Future Appointments and Orders Future Orders Complete By Expires Referral to Infectious Disease and International Health [REF37 Custom] As directed Process Instructions: If no progress note charted, please enter Clinical details in comments. Scheduling Instructions: Comments: Pt seen by ID team as inpatient. Needs outpatient follow up for jaw osteomyeltitis. Likely referralto OPAT Questions: My question or request is: See comment Discharge References/Attachments None documented in this encounter Discharge Instructions * Patient Instructions* Jeramie Rodriguez MD - 11/21/2023 1:32 PM EDT Instruction after leaving the hospital Why you were hospitalized: Infection in your jaw Call your doctor or seek medical attention if you develop the following: Fevers, increased drainage, increased pain Activity level: As tolerated Diet: No restrictions Driving: No driving if using pain medication documented in this encounter Medications at Time of Discharge Medication Sig Dispensed Refills Start Date End Date morphine IR (MS IR) 15 mg IR [...] mouth Three Times Daily for DHE. 10/07/2023 amoxicillin-clavulan ate (Augmentin) 875-125 mg tablet Take 1 tablet by mouth 2 times daily for 14 days. 28 tablet 11/21/2023 12/05/2023 documented as of this encounter Progress Notes * Jeramie Rodrigeuz MD - 11/21/2023 2:02 PM EDT Hospital Medicine - Attending Day of Discharge Documentation Discharge diagnosis Active Hospital Problems Diagnosis Osteomyelitis of anterior right mandible Hot flashes LORRI on CPAP Gastroesophageal reflux Hypertension Type 2 diabetes mellitus without complication, with long-term current use of insulin Chronic pain Resolved Hospital Problems No resolved problems to display. Secondary Issues Active Non-Hospital Problems Diagnosis Hyperlipidemia S/P ORIF bilateral foot fractures, 09/16/18 (Gitajn) Psoriasiform dermatitis I have personally seen and examined the patient and they are ready for discharge. I spent >30 minutes (Day of Discharge Code 64824) involved in the final examination of the patient, discussion of the hospital stay, instructions for continuing care to all relevant caregivers, and preparation of discharge records, prescriptions and referral forms. Dicussed with ID. They are OK with discharge on PO Augmentin for now. They will follow up cultures,I have ordered an ID referral for follow up. Small prescription for morphine IR given as her osteo heals. Plans Discharge to Home Follow-up scheduled with ID Please see the Discharge Summary for complete details of any medication changes and additional plans. * Walt Sewell MD - 11/20/2023 4:16 PM EDT Hospital Medicine Attending Daily Progress Note Admit Date: 11/19/2023 Hospital Day 1 day Active Hospital Problems Diagnosis Osteomyelitis of anterior right mandible Hot flashes LORRI on CPAP Gastroesophageal reflux Hypertension Type 2 diabetes mellitus without complication, with long-term current use of insulin Chronic pain Resolved Hospital Problems No resolved problems to display. PMH Active Non-Hospital Problems Diagnosis Hyperlipidemia S/P ORIF bilateral foot fractures, 09/16/18 (Gitajn) Psoriasiform dermatitis Inpatient Medications: Scheduled cloNIDine 0.05 mg Oral Daily doxepin 10 mg Oral Nightly ezetimibe 10 mg Oral Daily famotidine 20 mg Oral Nightly losartan 100 mg Oral Daily montelukast 10 mg Oral Daily pantoprazole EC 40 mg Oral Daily before breakfast pravastatin 40 mg Oral QPM acetaminophen 975 mg Oral Q8H DAYANA sodium chloride 0.9 % (flush) 5 mL Intravenous BID insulin lispro 1-4 Units Subcutaneous TID AC insulin lispro 0-10 Units Subcutaneous TID WC enoxaparin 40 mg Subcutaneous Nightly piperacillin-tazobactam 3.375 g Intravenous Q8H DAYANA Continuous infusions: PRN: zolpidem, sodium chloride 0.9 % (flush), lidocaine, glucose 40% oral geL OR dextrose OR glucagon, polyethylene glycoL (MIRALAX) oral powder AND bisacodyL AND bisacodyl EC ANDlactulose AND lactulose AND magnesium citrate AND Tap water enema, morphine IR, ketorolac, baclofen Interval History: admitted ROS: Pain in her jaw with drainage, o/w 10 point ros reviewed and negative. Physical Exam Vitals Range last 24 hrs Temperature Temp: [36.3 ??C (97.3 ??F)-36.6 ??C (97.9 ??F)] Heart Rate Heart Rate: [64-84] Blood Pressure BP: (110-146)/(64-93) Respiratory Rate Resp: [15-18] SpO2 SpO2: [94 %-99 %] Intake/Output Summary (Last 24 hours) at 11/20/2023 1616 Last data filed at 11/20/2023 1200 Gross per 24 hour Intake 760 ml Output 200 ml Net 560 ml Patient Vitals for the past 168 hrs: Weight 11/19/23 1037 70.3 kg (155 lb) Body mass index is 29.3 kg/m??. Physical Exam Constitutional: General: She is not in acute distress. HENT: Mouth/Throat: Comments: Edentoulous, with actively expressing pus for left lower jaw region. Eyes: Extraocular Movements: Extraocular movements intact. Cardiovascular: Rate and Rhythm: Normal rate. Heart sounds: Murmur heard. Pulmonary: Effort: Pulmonary effort is normal. Breath sounds: Normal breath sounds. Abdominal: Palpations: Abdomen is soft. Tenderness: There is no abdominal tenderness. Genitourinary: General: Normal vulva. Musculoskeletal: Cervical back: Normal range of motion. Skin: General: Skin is warm and dry. Neurological: General: No focal deficit present. Mental Status: She is alert. Cranial Nerves: No cranial nerve deficit. Psychiatric: Mood and Affect: Mood normal. Studies reviewed in eDH. Remarkable for the following: LABS: Last 3 wbc, hgb, hct plt Recent Labs 11/20/23 0142 11/19/23 1115 WBC 8.6 14.9* HGB 10.9* 12.8 HCT 32.8* 38.7 PLATELET 260 326 Last 3 Lytes Recent Labs 11/20/23 0142 11/19/23 1115 NA 142 143 K 3.2* 3.8 CL 113* 111* CO2 18* 20* BUN 12 18 CREATININE 0.83 0.90 Last 3 LFTs No results for input(s): AST, ALT, ALKPHOS, BILITOT, BILIDIR in the last 7068hours. Last Ca, Mg, Phos Recent Labs 11/20/23 0142 CALCIUM 7.9* Last 3 Coags No results for input(s): PT, INR, PTT in the last 168 hours. Last 3 Lipids No results for input(s): CHLPL, HDL, LDLCHOL, LDLDIRECT, TRIG in the last 7068 hours. Last 3 HgbA1C No results for input(s): HA1C in the last 7068 hours. Last CRP, SEDRATENo results for input(s): CRP, SEDRATE in the last 7068 hours. FSBG Trend Recent Labs 11/20/23 1136 11/20/23 0621 11/20/23 0310 11/19/23 1919 POCGLU 132 100 108 92 MICRO: No results for input(s): URINECULTURE in the last 720 hours. Recent Labs 11/19/23 1643 GRAMSTAIN Many Neutrophils seen Rare Gram Positive Cocci seen * No results for input(s): BLOODCX in the last 720 hours. ECG: No results for input(s): DIAGLINE, QTCCALC in the last 720 hours. VASCULAR: No results for input(s): VBTEXTRPT in the last 720 hours. IMAGING: Advanced Osteomyelitis of the R Mandible TTE- Nl EF, no WMA, mild regurg, and no vegetations noted. Assessment: Osteomyelitis of anterior right mandible Presumably a consequence of her dental infection(s) in the setting of unclear long-term diabetes control. Appreciate ENT evaluation and following; for now, medical management will continue. - continue pip-tazo IV, MRSA swab pending tailor as needed. - consider PICC in anticipation of prolonged IV abx, unclear if step-down oral therapy will be acceptable ultimately - ID consult -TTE obtained with Nl EF and no vegetations seen Type 2 diabetes mellitus without complication, with long-term current use of insulin Patient will not give up regular soda long-term but would try to stop it while being treated for this potentially very morbid infection. She is concerned about the headaches/migraines she gets when not drinking the soda, but she could be offered caffeine in others forms in the meantime. She also essentially stated she cannot adhere to a restrictive diet while here though, but understands will improve wound healing. She was also reluctant to have finger stick glucose checks though unfortunately we cannot manage her DM from her CGM. I - holding home semaglutide - carb count diet no limit - TID checks with sensitive scale and mealtime carb count coverage Chronic pain concern for serotonin syndrome with home regimen [...] home med after 5 days of toradol) Hypertension - home losartan with hold parameters Hot flashes - home clonidine Gastroesophageal reflux - home famotidine QHS - Formulary change home PPI QAM--> pantoprazole LORRI on CPAP Doesn't use ~90% of the time, has nasal CPAP but finds even this to be claustrophobic. # Other -Code status: Attempt Cardiopulmonary Resuscitation - Inpatient -VTE ppx: enoxparin -PCP: Yamile De Leon APRN [phone] Attestation: IPI Certification I certify that I am a [facility] credentialed attending provider with admitting privileges and that the patient meets or has met medical necessity to require an inpatient IPI level of care meeting a minimumof two midnights or is on the [facility] inpatient only procedure list (status C) due to: Osteomyleitis ofthe jaw. WALT SEWELL MD 11/20/2023 * Olivia Hand - 11/20/2023 6:28 AM EDT Images from the original note were not included. Inpatient Hospital Medicine Progress Note 11/20/2023 Patient Name: ERICKSON LA Date of : 1965 Age: 58 y.o. Hospital Admit Date: 11/19/2023 Hospital Day: 1 Inpatient Attending: No att. providers found PCP: Yamile De Leon APRN ([phone]) Chief Complaint Patient presents with Dental Pain ID: Erickson La is a 58 y.o. female w/ PMH of hypertension, chronic back pain, severe hot flashes, LORRI generally not using home CPAP, and non-insulin dependent diabetes mellitus, who was [facility] (now on Hospital Day #1) for jaw pain concerning for osteomyelitis after dental infection in July. Brief Hx: -dental infection in July, antibiotic course. Ended up having multiple lower teeth removed -pain in socket, treated for dry socket at urgent care -two additional ab courses for continued right lower jaw pain and purulence in mouth -CT last Thursday reviewed this week, evidence of osteomyelitis -advised to come here for antibiotics -white count 14.9, repeat face CT concerning for advanced osteo. -smokes 0.5PPD since 15yo -no illicit drug use or alcohol 24 HOUR EVENTS & SUBJECTIVE: Yesterday: - in ED, started on IV pip-tazo Overnight: - NAEO Today AM: pt reports the following: This morning, she reports that she is feeling overall well. Her pain is 8/10 but she is due for medication and says it has been otherwise well controlled. We reviewed her HPI. She says that her jaw pain first started after a dental procedure in July, and all her bottom teeth were removed. She was having worsening pain since then associated with exudate from her lower dental cavity. She has had multiple courses of PO antibiotics prescribed at urgent care and by PCP, which she believes were all the same. She has also tried antibiotic mouthwash. She denies systemic symptoms such as fever, though endorses intermittent chills and had an episode of vomiting a few days ago after swallowing some pus. She has been able to eat (chews on opposite side of mouth). Has been taking ibuprofen and tylenol consistently which helps a little. Of note, she drinks a liter of sugared soda every three days. She was also found to have blood in urine on presentation, which she says she has sometimes associated with UTIs. She reports frequent UTI's and yeast infections that are not usually associated with urinary symptoms. She has urinated five times this morning. She had a hysterectomy many years ago and thus does not menstruate. She denies chest pain or shortness of breath. OBJECTIVE: Vitals: Last value Range last 24 hrs Temperature Temp: 36.3 ??C (97.3 ??F) Temp: [36.3 ??C (97.3 ??F)-37 ??C (98.6 ??F)] Heart Rate Heart Rate: 66 Heart Rate: [64-77] Blood Pressure BP: 119/69 BP: (110-148)/(64-74) Art Line BP BP (Arterial Line): -- MAP (NBP): [75 mmHg-94 mmHg] Respiratory Rate Resp: 15 Resp: [14-17] SpO2 SpO2: 99 % SpO2: [94 %-99 %] Oxygen Delivery Oxygen Therapy O2 Device: Nasal cannula Intake/Output Summary (Last 24 hours) at 11/20/2023 0625 Last data filed at 11/20/2023 0337 Gross per 24 hour Intake 510 ml Output 200 ml Net 310 ml No intake/output data recorded. Body mass index is 29.3 kg/m??. Patient Vitals for the past 168 hrs: Weight 11/19/23 1037 70.3 kg (155 lb) Admit wt: 70.31 kg Physical Exam: GENERAL: Awake, alert, no acute distress HEENT: Anicteric, no conjunctival injection. Erythematous area in lower dental cavity with white exudate that she is able to milk from the cavity. No external skin changes. Tender to palpation of jaw. CV: RRR. Systolic murmur best heard at right sternal border. 2+ radial/DP pulses. No janeway lesions or scruggs spots. PULM: Normal respiratory effort, CTA with good air entry bilaterally, no rales/rhonchi/wheezes ABDOMEN: Soft, non-tender, non-distended, no masses, no guarding EXTREMITIES: No lower extremity edema. No clubbing or cyanosis PSYCH/NEURO: Appropriate affect and cognition SKIN: Warm, dry, no rashes. No evidence of yeast infection in skin folds of groin and pannus. CBC: Recent Labs 11/20/23 0142 11/19/23 1115 WBC 8.6 14.9* HGB 10.9* 12.8 HCT 32.8* 38.7 PLATELET 260 326 NEUTROABS 4.48 11.11* Chemistry: Recent Labs 11/20/23 0142 11/19/23 1115 NA 142 143 K 3.2* 3.8 CL 113* 111* CO2 18* 20* BUN 12 18 CREATININE 0.83 0.90 GLUCOSE 76 140 ANIONGAP 11 12 Recent Labs 11/20/23 0142 11/19/23 1115 CALCIUM 7.9* 9.5 Microbiology: Date Type Result 11/19/23 Wound culture Neutrophils, gram pos cocci No results found for: URINECULTURE Lab Results Component Value Date/Time GRAMSTAIN (A) 11/19/2023 164 Many Neutrophils seen Rare Gram Positive Cocci seen No results found for: BLOODCX Microbiology Results (Last 30 days) Procedure Component Value Units Date/Time Abscess/Wound Aspirate Culture [[id number]] (Abnormal) Collected: 11/19/23 1643 Lab Status: Preliminary result Specimen: Fluid from Other Updated: 11/19/232044 Gram Stain -- Many Neutrophils seen Rare Gram Positive Cocci seen Imaging/Diagnostics: Results for orders placed or performed during the hospital encounter of 11/19/23 (from the past 48 hour(s)) CT Face w Contrast (Exam End: 11/19/2023 12:37 PM) Result Value WORKSTATION ID [id number] Impression Advanced osteomyelitis of the anterior RIGHT mandible. I have personally reviewed the image(s) and the resident's interpretation and agree with the findings, Marilou Perez MD at 11/19/2023 1:18 PM Thank you for letting us participate in the care of this patient. If you are a health care provider and have any questions regarding this report, please contact the number below. For patients who have questions please contact the health health care legal assistant that requested your imaging first. Electronically signed by: Marilou Perez MD, [facility] ([phone]), at 11/19/2023 1:18 PM Medications: Scheduled: cloNIDine 0.05 mg Oral Daily doxepin 10 mg Oral Nightly ezetimibe 10 mg Oral Daily famotidine 20 mg Oral Nightly losartan 100 mg Oral Daily montelukast 10 mg Oral Daily pantoprazole EC 40 mg Oral Daily before breakfast pravastatin 40 mg Oral QPM acetaminophen 975 mg Oral Q8H DAYANA sodium chloride 0.9 % (flush) 5 mL Intravenous BID insulin lispro 1-4 Units Subcutaneous TID AC insulin lispro 0-10 Units Subcutaneous TID WC enoxaparin 40 mg Subcutaneous Nightly piperacillin-tazobactam 3.375 g Intravenous Q8H DAYANA Continuous: PRN: zolpidem, sodium chloride 0.9 % (flush), lidocaine, glucose 40% oral geL OR dextrose OR glucagon, polyethylene glycoL (MIRALAX) oral powder AND bisacodyL AND bisacodyl EC ANDlactulose AND lactulose AND magnesium citrate AND Tap water enema, morphine IR, ketorolac, baclofen ASSESSMENT and PLAN: Erickson La is a 58 y.o. female w/ PMH of hypertension, chronic back pain, severe hot flashes, LORRI generally not using home CPAP, and non-insulin dependent diabetes mellitus , [facility]now on Hospital Day #1) for jaw pain with exudate from dental cavity, osteomyelitis based on CT. Today's plan: #Osteomyelitis of anterior right mandible Presumably a consequence of her dental infection(s) in the setting of unclear long-term diabetes control and smoking history impacting proper healing. Because she has murmur without comparison to determine if new, endocarditis should be on the differential given her dental infection. - continue pip-tazo IV, can taper based on culture results. She is afebrile and her white count hasdecreased and is now WNL. - obtain blood cultures - obtain MRSA swab of exudate -TTE with concern for endocarditis - Per ENT recs, continue medical mgmt but may need debridement further down the road. - diabetes mgmt as below - pain mgmt as below - consider PICC in anticipation of prolonged IV abx, unclear if step-down oral therapy will be acceptable ultimately #Hematuria -Repeat urinalysis showed blood but no evidence for acute infection. May require cystoscopy as outpatient. Awaiting reflex culture from urinalysis. #Type 2 diabetes mellitus without complication, with long-term current use of insulin Patient stated she would not give up regular soda long-term but would try to stop it while being treated for this potentially very morbid infection. - holding home semaglutide - carb count diet no limit - TID checks with sensitive scale and mealtime carb count coverage #Chronic pain High concern for serotonin syndrome with home [...] home med after 5 days of toradol) #Hypertension - home losartan with hold parameters #Hot flashes - home clonidine #Gastroesophageal reflux - home famotidine QHS - Formulary change home PPI QAM--> pantoprazole #LORRI on CPAP Doesn't use ~90% of the time, has nasal CPAP but finds even this to be claustrophobic. #Housekeeping: DVT PPx: LMWH GI PPx: Diet: Carbohydrate Counting - No Limit Lines: PIV 11/19/23 1114 22 gauge median cubital vein (antecubital fossa), right (Active) Number of days: 0 D/c planning: Pending clinical course. May need PICC Code status: Attempt Cardiopulmonary Resuscitation - Inpatient Olivia Hand MS4 11/20/23 * Chen Hickman LPN - 11/20/2023 6:27 AM EDT Patient is AOX4. Just arrived on 1C @ 0306. VSS on RA. BG checked 108. Meds given as ordered. 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 IV ABX tolerates without any complaints. Pt is aware a UA is needed, a hat is in place. Bed in low position, call jane and personal things within reach. Will continue to monitor. Will make RN and MD aware of any changes. * Paulino Li RN - 11/20/2023 3:46 AM EDT 0300- pt arrived to [facility] from ED. Pt oriented to room and instructed how to use call jane for assistance. Bed in low position, locked w/ bed alarm on. Pt AAOx4. VSS on RA. C/o right jaw pain 9/10, PRN morphine given. Denied CP, SOB, N/V, dizziness. * Riddhi Babcock RN - 11/20/2023 3:00 AM EDT Pt transferred to unit in wheelchair with belongings. Report given to floor RN. * Cammie Jim RN - 11/19/2023 10:06 PM EDT EKG completed at the bedside documented in this encounter H&P Notes * Misael Joaquin MD - 11/19/2023 5:16 PM EDT Hospital Medicine - Admission Note HPI This is a 58 y.o. female smoker with a history of hypertension, chronic back pain, severe hot flashes, LORRI generally not using home CPAP, and non-insulin dependent diabetes mellitus who presents withjaw pain. This began after treatment for a dental infection in July. After an antibiotic course, she was referred to a dentist for extraction and ended up having multiple lower teeth removed. She developed pain in one specific socket and was treated for dry socket after being evaluated at an [facility] site. She had two additional antibiotics courses for non-resolving right lower jaw pain and purulence into her mouth. Ultimately underwent CT scan last Thursday, which was reviewed earlier this week. She was advised that she would probably need to come here for management as I gather this was showing evidence of osteomyelitis. No one was able to arrange for timely outpatient facial surgeon evaluation,earliest appt was late November but others were into March. Thus she was advised to come here today for evaluation. VS have been unremarkable but labs notable for WBC 14.[address] was concerning for advanced osteomyelitis of the anterior right mandible. She was evaluated by ENT who recommended IV antibiotics. Of note, patient reports getting yeast infections even after just a day or two of antibiotics. She drinks unregulated amounts of regular sugar Pepsi and is very anxious about having to follow any kind of restrictive diet. She reports her recent HbA1c was < 7% though the records are not availableto me. She wears a CGM and notes rarely being > 200 despite her diet. No alcohol or illicit drug use. Smokes 0.5 ppd since age 15. Home Meds No current facility-administered medications on file prior to encounter. Current Outpatient Medications on File Prior to Encounter Medication Sig Dispense Refill celecoxib (CeleBREX) 100 mg capsule Take 100 [...] Inject 0.25 mg subcutaneously once a week. simvastatin (Zocor) 40 mg tablet Take 1 tablet by mouth daily. traMADoL (Ultram) 50 mg tablet Take 50 mg by mouth every 8 hours as needed for Pain. zolpidem (Ambien) 10 mg tablet Take 10 mg by mouth nightly as needed for Sleep. fluconazole (Diflucan) 150 mg tablet TAKE 1 TABLET BY MOUTH A SINGLE DOSE AND REPEAT IN 3 DAYS [DISCONTINUED] meloxicam (Mobic) 15 mg tablet Take 15 mg by mouth daily as needed for Pain. [DISCONTINUED] venlafaxine (Effexor-XR) 150 mg ER 24 hr capsule Take 150 mg by mouth daily. [DISCONTINUED] mupirocin (Bactroban) 2 % Ointment Apply topically twice a day to the opened lesionson the breast until they heal over. 22 g 3 [DISCONTINUED] clobetasoL (Temovate) 0.05 % Ointment Apply topically twice a day to the healed lesions on the breast for up to two weeks, then take one week off. Repeat this cycle as needed. 30 g 1 [DISCONTINUED] albuterol (PROVENTIL) 2.5 mg /3 mL (0.083 %) Solution for Nebulization Take 2.5 mg by nebulization every 4 hours as needed for Wheezing. [DISCONTINUED] albuterol 90 mcg/actuation HFA Aerosol Inhaler Inhale 2 puffs into the lungs every 4hours as needed for Wheezing. Use with spacer [DISCONTINUED] fluticasone propion-salmeterol (ADVAIR) 250-50 mcg/dose Disk with Device Inhale 1 puff into the lungs every 12 hours. [DISCONTINUED] pantoprazole (PROTONIX) 20 mg Tablet, Delayed Release (E.C.) Take 10 mg by mouth daily. [DISCONTINUED] Magnesium Oxide 250 mg magnesium Tablet Take 250 mg by mouth daily. Indications: Take with protonix [DISCONTINUED] HYDROcodone-acetaminophen (NORCO) 5-325 mg Tablet TAKE ONE TABLET BY MOUTH THREE TIMES A DAY NEEDED FOR SEVERE BACK PAIN 0 [DISCONTINUED] ranitidine (ZANTAC) 150 mg Tablet TAKE ONE TABLET BY MOUTH AT BEDTIME 2 [DISCONTINUED] ibuprofen (ADVIL;MOTRIN) 600 mg Tablet TAKE ONE TABLET BY MOUTH THREE TIMES A DAY ASNEEDED FOR PAIN 3 [DISCONTINUED] acetaminophen (TYLENOL) 500 mg Tablet Take 2 tablets by mouth every 8 hours as needed for Pain. 30 tablet 1 [DISCONTINUED] BASAGLAR KWIKPEN U-100 INSULIN 100 unit/mL (3 mL) pen INJECT 18 UNITS SUBCUTANEOUSLYEVERY MORNING 3 [DISCONTINUED] metFORMIN (GLUCOPHAGE) 500 mg Tablet TAKE ONE TABLET BY MOUTH TWICE A DAY 3 [DISCONTINUED] ondansetron (ZOFRAN) 4 mg Tablet TAKE 1 TABLET BY MOUTH EVERY 6 HOURS NEEDED FOR NAUSEA 0 Objective BP 148/73 Pulse 77 Temp 37 ??C (98.6 ??F) (Oral) Resp 14 Wt 70.3 kg (155 lb) SpO2 99% BMI 29.30 kg/m?? Physical Exam Non-toxic, anxious and tearful when discussing plans to monitor her blood glucose closely Appears older than stated age RRR Clear lungs No current purulence expressing from jaw, poor dentition. Mild external swelling not significant warmth or erythema of face. Tender along right mandible. Labs I personally reviewed these tests from this visit: CBC Lab Results Component Value Date WBC 14.9 (H) 11/19/2023 HGB 12.8 11/19/2023 PLATELET 326 11/19/2023 BMP Lab Results Component Value Date NA 143 11/19/2023 K 3.8 11/19/2023 CL 111 (H) 11/19/2023 CO2 20 (L) 11/19/2023 BUN 18 11/19/2023 CREATININE 0.90 11/19/2023 MAGNESIUM 0.74 09/19/2018 Imaging Results for orders placed or performed during the hospital encounter of 11/19/23 CT Face w Contrast (Exam End: 11/19/2023 12:37 PM) Result Value WORKSTATION ID [id number] Impression Advanced osteomyelitis of the anterior RIGHT mandible. I have personally reviewed the image(s) and the resident's interpretation and agree with the findings, Marilou Perez MD at 11/19/2023 1:18 PM Thank you for letting us participate in the care of this patient. If you are a health care provider and have any questions regarding this report, please contact the number below. For patients who have questions please contact the health health care legal assistant that requested your imaging first. Electronically signed by: Marilou Perez MD, [facility] ([phone]), at 11/19/2023 1:18 PM Assessment & Plan Osteomyelitis of anterior right mandible Presumably a consequence of her dental infection(s) in the setting of unclear long-term diabetes control. Appreciate ENT evaluation and following; for now, medical management will continue. - continue pip-tazo IV - ENT recs - diabetes mgmt as below - pain mgmt as below - consider PICC in anticipation of prolonged IV abx, unclear if step-down oral therapy will be acceptable ultimately Type 2 diabetes mellitus without complication, with long-term current use of insulin Patient stated she would not give up regular soda long-term but would try to stop it while being treated for this potentially very morbid infection. She is concerned about the headaches/migraines shegets when not drinking the soda, but she could be offered caffeine in others forms in the meantime.She also essentially stated she cannot adhere to a restrictive diet while here though I encouraged her to try since poor glucose control will negatively impact her ability to overcome this infection.She was also reluctant to have finger stick glucose checks though unfortunately we cannot manage her DM from her CGM. I did make several compromises since it appears she may not be able to tolerate ho spitalization otherwise. - holding home semaglutide - carb count diet no limit - TID checks with sensitive scale and mealtime carb count coverage Chronic pain High concern for serotonin syndrome with home [...] home med after 5 days of toradol) Hypertension - home losartan with hold parameters Hot flashes - home clonidine Gastroesophageal reflux - home famotidine QHS - Formulary change home PPI QAM--> pantoprazole LORRI on CPAP Doesn't use ~90% of the time, has nasal CPAP but finds even this to be claustrophobic. # Other - Code status: Attempt Cardiopulmonary Resuscitation - Inpatient - VTE ppx: enoxparin - PCP: Yamile De Leon, [employer] [phone] Misael Joaquin Pager #[phone] [facility] Medicine documented in this encounter ED Notes * Osorio Fairchild PA - 11/19/2023 1:50 PM EDT ED Provider Note HPI: Erickson La is a 58 y.o. female with past medical history of HTN, HLD, insulin dependant Type 2diabetes, and GERD who presents to the Emergency Department who presents with jaw pain and swellingpost total teeth extraction. Pt was seen by her PCP in July with dental infection, treated with abx. She was then seen by an medical assistant prn who removed all of her teeth on August 10. Following this she was seen twice this month for purulent discharge of the bottom right of her mouth, resulting in two more episodes of antibiotic treatment. She was not improving, was seen by her dentist where they performed both an xray and CT scan which both showed evidence of R anterior mandibular osteomyelitis. Earlier this week she was instructed to go to [facility] ER to see an oral surgeon. She currently states that the pain is still located in the R lower jaw, 12/10, worse when moving her mouth, with associated purulent discharge from this area. She also endorses subjective chills without fevers and nausea with vomiting due to the purulent discharge. She denies trismus, change in phonation, chest pain, SOB, abdominal pain, or any other associated symptoms. ROS as per HPI Vitals: ED Triage Vitals [11/19/23 1037] BP: 148/73 Heart Rate: 77 Resp: 14 Temp: 37 ??C (98.6 ??F) Temp src: Oral SpO2: 99 % O2 Device: RA O2 Flow Rate (L/min): n/a Physical Exam Constitutional: Appearance: Normal appearance. HENT: Head: Normocephalic and atraumatic. Mouth/Throat: Dentition: Abnormal dentition. Gingival swelling and gum lesions present. Tongue: No lesions. Palate: No mass. Pharynx: Oropharynx is clear. Comments: Post surgical removal of all teeth. Tenderness of the R mandible in the area of the 28/27teeth. In this same area there is erythema, swelling, and tenderness of the gingiva. No trismus noted. No swelling of the neck proximal to this area. Cardiovascular: Rate and Rhythm: Normal rate and regular rhythm. Pulmonary: Effort: Pulmonary effort is normal. Breath sounds: Normal breath sounds. Musculoskeletal: Cervical back: Normal range of motion and neck supple. Lymphadenopathy: Cervical: Cervical adenopathy present. Skin: General: Skin is warm and dry. Capillary Refill: Capillary refill takes less than 2 seconds. Neurological: Mental Status: She is alert and oriented to person, place, and time. Psychiatric: Mood and Affect: Mood normal. ED Course: I have reviewed labs and imaging, images and available reports, and they are significant for: Bloodwork shows a leukocytosis with borderline left shift, no anemia, BMP shows normal renal function with no metabolic abnormalities. CT scan remarkable for signs of R sided osteomyelitis with no appreciable drainable fluid interpreted by both myself and radiology. CT Face w Contrast Final Result Advanced osteomyelitis of the anterior RIGHT mandible. I have personally reviewed the image(s) and the resident's interpretation and agree with the findings, Marilou Perez MD at 11/19/2023 1:18 PM Thank you for letting us participate in the care of this patient. If you are a health care provider and have any questions regarding this report, please contact the number below. For patients who have questions please contact the health health care legal assistant that requested your imaging first. Electronically signed by: Marilou Perez MD, [facility] ([phone]), at 11/19/2023 1:18 PM Procedures Assessment and Plan: 58 y.o. female with past medical history of HTN, HLD, insulin dependant Type 2 diabetes, and GERD who presents to the Emergency Department who presents with jaw pain and swelling post total teeth extraction in July with failed outpatient management of dental/jaw infection with antibiotics x4. Her exam shows no signs of airway compromise but does show mandibular tenderness and swelling along withpurulent discharge on the apical side of her internal mouth, VS are stable, and she does not appeartoxic or septic. Bloodwork shows signs of infection with leukocytosis of 14.5 with borderline left shift and CT findings of R mandibular advanced osteomyelitis. Pt was started on Zosyn 4.5g IV as sheis poorly controlled diabetic with failed outpatient antibiotics as well as Toradol 30 mg IV for her pain. Consulted with ENT and they do not believe that she requires any immediate surgical intervention but recommend admission to medicine with abx. They will be evaluating and following patient. Believe that pt requires this admission as she has failed outpatient treatment. Admission requested tospital medicine. Did this case involve critical care? No The visit findings, diagnosis, and care plan were discussed with the patient. Osorio Fairchild PA 11/19/23 1458 documented in this encounter Miscellaneous Notes * Plan of Care - Jamee Chi RN - 11/21/2023 2:10 PM EDT Refer to previous care plan. Problem: Adult Inpatient Plan of Care Goal: Plan of Care Review 11/21/20231415 by Jamee Chi RN Outcome: Outcome (s) achieved 11/21/2023 075 by Jamee Chi RN Outcome: Ongoing (Interventions Implemented as Appropriate) Goal: Patient-Specific Goal (Individualized) 11/21/2023 1416 by Jamee Chi RN Outcome: Outcome (s) achieved 11/21/2023 0755 by Jamee Chi RN Outcome: Ongoing (Interventions Implemented as Appropriate) Goal: Absence of Hospital-Acquired Illness or Injury 11/21/2023 141 by Jamee Chi RN Outcome: Outcome (s) achieved 11/21/2023 075 by Jamee Chi RN Outcome: Ongoing (Interventions Implemented as Appropriate) Goal: Optimal Comfort and Wellbeing 11/21/2023 1416 by Jamee Chi RN Outcome: Outcome (s) achieved 11/21/2023 0755 by Jamee Chi RN Outcome: Ongoing (Interventions Implemented as Appropriate) Goal: Readiness for Transition of Care 11/21/2023 1416 by Jamee Chi RN Outcome: Outcome (s) achieved 11/21/2023 0755 by Jamee Chi RN Outcome: Ongoing (Interventions Implemented as Appropriate) Problem: Fall Injury Risk Goal: Absence of Fall and Fall-Related Injury 11/21/2023 1416 by Jamee Chi RN Outcome: Outcome (s) achieved 11/21/2023 0755 by Jamee Chi RN Outcome: Ongoing (Interventions Implemented as Appropriate) Problem: Pain Acute Goal: Acceptable Pain Control and Functional Ability 11/21/2023 1416 by Jamee Chi RN Outcome: Outcome (s) achieved 11/21/2023 0755 by Jamee Chi RN Outcome: Ongoing (Interventions Implemented as Appropriate) Problem: Infection Goal: Absence of Infection Signs and Symptoms 11/21/2023 1416 by Jamee Chi RN Outcome: Outcome (s) achieved 11/21/2023 0755 by Jamee Chi RN Outcome: Ongoing (Interventions Implemented as Appropriate) * Consult Note - Stephenie Moya MD - 11/21/2023 9:53 AM EDT INFECTIOUS DISEASE CONSULTATION NOTE Reason for Consult: osteomyelitis of jaw - Consulting Service: Medicine Consulting Attending: Walt Sewell MD Admission Date: 11/19/2023 History of Present Illness: Pt is a 58 y.o. female with a history of [...] dry socket after being evaluated at an [facility] care site. She had two additional antibiotics courses [...] expressed fluid which shows GPC's onGram stain. On evaluation, patient reports doing well. She states that she had multiple rounds of antibiotics that did not improve her symptoms. She states that she was told that she would come into the hospitaland get debridement as well as biopsy infection. She is eager to go home and would like to be discharged today. She denies any mouth pain and states that she mainly has indigestion due to her pain medications. Review of Systems: Pertinent positives and negatives noted in HPI. 14 point ROS otherwise negative except noted in HPI. Past Medical History: Past Medical History: Diagnosis Date Arthritis Chronic pain 09/15/2018 Gastroesophageal reflux 09/15/2018 Hyperlipidemia 09/15/2018 Hypertension 09/15/2018 LORRI on CPAP 09/15/2018 Type 2 diabetes mellitus without complication, with long-term current use of insulin 09/15/2018 Past Surgical History: Past Surgical History: Procedure Laterality Date KNEE ARTHROSCOPY Bilateral PRO CLOSED TREAT TARSAL FX, MANIP, EACH Left 09/16/2018 CLOSED REDUCTION TARSAL BONE FX (WRVU 3.24) performed by Aparna Reed MD at [facility] MAIN OR PRO OPEN TREATMENT METATARSAL FRACTURE EACH Bilateral 09/16/2018 ORIF METATARSAL FX, EACH (WRVU 7.44) performed by Aparna Reed MD at [facility] MAIN OR PRO OPEN TREATMENT TARSOMETATARSAL JOINT DISLOCATION Right 09/16/2018 OPEN TREAMENT TARSOMETATARSAL JOINT DISLOCATION (WRVU 10.7) performed by Aparna Reed MD at [facility] MAIN OR PRO OPEN TX FRACTURE GREAT TOE/PHALANX/PHALANGES Right 09/16/2018 ORIF GREAT TOE (WRVU 7.44) performed by Aparna Reed MD at [facility] MAIN OR PRO PERCUT TREAT METATARSAL FX Left 09/16/2018 PERCUTANEOUS PINNING, METATARSAL FX, EA. (WRVU 3.6) performed by Aparna Reed MD at [facility] MAIN OR PRO PERCUT TREAT TAR-METATAR FOOT DISLOC Right 09/16/2018 PERCUTANEOUS PINNING, TARSOMETATARSAL JOINT DISLOCATION (WRVU 5.09) performed by Aparna Rede MD at [facility] MAIN OR SHOULDER ARTHROSCOPY Bilateral Medications: Scheduled Meds: cloNIDine 0.05 mg Oral Daily doxepin 10 mg Oral Nightly ezetimibe 10 mg Oral Daily famotidine 20 mg Oral Nightly losartan 100 mg Oral Daily montelukast 10 mg Oral Daily pantoprazole EC 40 mg Oral Daily before breakfast pravastatin 40 mg Oral QPM acetaminophen 975 mg Oral Q8H DAYANA sodium chloride 0.9 % (flush) 5 mL Intravenous BID insulin lispro 1-4 Units Subcutaneous TID AC insulin lispro 0-10 Units Subcutaneous TID WC enoxaparin 40 mg Subcutaneous Nightly piperacillin-tazobactam 3.375 g Intravenous Q8H DAYANA Continuous Infusions: PRN Meds:.zolpidem, sodium chloride 0.9 % (flush), lidocaine, glucose 40% oral geL OR dextrose OR glucagon, polyethylene glycoL (MIRALAX) oral powder AND bisacodyL AND bisacodyl EC AND lactulose AND lactulose AND magnesium citrate AND Tap water enema, morphine IR, ketorolac, baclofen Allergies/Adverse drug reactions: Allergies Allergen Reactions Bee Sting [Hymenoptera Allergenic Extract] Other (See Comments) Swelling Sulfa (Sulfonamide Antibiotics) Tape, Occlusive Adhesive Family History: Family History No data available Social History: Social History Tobacco Use Smoking status: Every Day Current packs/day: 1.00 Average packs/day: 1 pack/day for 28.0 years (28.0 ttl pk-yrs) Types: Cigarettes Smokeless tobacco: Never Tobacco comments: Currently using nicotine inhaler to help herself quit (11/08/18) Vaping Use Vaping status: Never Used Substance Use Topics Alcohol use: Not Currently Drug use: Never Social History Social History Narrative Not on file Physical Exam: Last value Range last 24 hrs Temperature Temp: 36.6 ??C (97.9 ??F) Temp: [36.3 ??C (97.3 ??F)-36.6 ??C (97.9 ??F)] Heart Rate Heart Rate: 74 Heart Rate: [64-84] Blood Pressure BP: 138/75 BP: (110-146)/(64-93) Respiratory Rate Resp: 18 Resp: [15-18] SpO2 SpO2: 97 % SpO2: [94 %-99 %] General: no acute distress Head: normocephalic, atraumatic EENT: No conjunctival petechiae, lower dental cavity is erythematous with white exudate, tender to palpation Cardiovascular: RRR, systolic murmur Pulmonary: Lungs clear to auscultation bilaterally; no wheezing, rhonchi, or rales Abdomen: Soft, non-tender, non-distended Ext: No deformity Skin: No rash on visible skin Neuro: A&O, moves all 4 extremities spontaneously Psych: Euthymic, pleasant I have reviewed the pertinent laboratory, microbiology, and diagnostic/radiology/procedure results: Recent Labs 11/21/23 0525 11/20/23 0142 11/19/23 1115 WBC 7.0 8.6 14.9* HGB 11.5* 10.9* 12.8 HCT 34.7* 32.8* 38.7 PLATELET 247 260 326 Recent Labs 11/21/23 0525 11/20/23 0142 11/19/23 1115 NA 143 142 143 K 3.6 3.2* 3.8 CL 111* 113* 111* CO2 22 18* 20* BUN 15 12 18 CREATININE 0.93 0.83 0.90 No results for input(s): AST, ALT, ALKPHOS, BILITOT, BILIDIR in the last 168 hours. No results for input(s): SEDRATE in the last 168 hours. No results for input(s): CRP in the last 168 hours. 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 female with a history of HTN, chronic back pain, LORRI, DM, tobacco admitted for mandibular osteomyelitis. Cultures from expressed fluid growing Strep milleri. ENT evaluated patient for mandibular osteomyelitis, recommended IV antibiotics and follow-up with OFMS. Ideally would likely need some amount of debridement, however based on cultures and imaging, will treat for 6 weeks. Patient is pending discharge, so would recommend amox-clav PO for now and we will coordinate PICC and initiation of IV ceftriaxone as outpatient. RECOMMENDATIONS: -Amox-clav 875-125 mg twice daily for now, will have patient follow-up with ID clinic as an outpatient for coordination of OPAT (plan for ceftriaxone 2g q24hr IV with start day of therapy 11/18) -At least weekly CBCD, CMP, CRP while on antimicrobial therapy -Rest of care per primary team Patient discussed with ID attending Dr. Yo. Thank you for the consult. ID consult service will continue to follow. Stephenie Moya MD, MPH Fellow, Infectious Disease Pager: [phone] Epic Chat 11/20/2023 Associated attestation - Juan Yo MD - 11/22/2023 1:10 PM EDT I have seen and examined the patient and discussed the assessment and plan with the fellow. I reviewed the fellow's note and I agree with the documented findings and recommendations. Juan Yo MD ID Staff Physician * Plan of Care - Jamee Chi RN - 11/21/2023 7:55 AM EDT OUTCOME EVALUATION NOTE: OUTCOME SUMMARY: Patient alert and oriented x4. Patient called for pain meds at change of shift. The patient complained of back pain. The patient requested a medication for loose stools. notified and imodium was ordered. Patient did not want to have carb coverage for noon. She stated she does not take insulin athome unless her blood glucose finger stick is over 200. Education provided on the importance of controlling blood sugar. MD notified. Patient called me over to her room to show me a napkin with scantpurulent drainage and min sanguineous drainage that was from her infected gums. MD stated patient being discharged when orders placed will discharge patient. at bedside. Patient will be seeing ID outpatient to start IV antibiotics. IV removed. D/C paperwork explained and handed to patient. This RN explained to call on Thursday to set up an appointment with ID and home health nurses. Patientwalked independently accompanied by on the way out of hospital. All belongings returned. PLAN MOVING FORWARD: Blood glucose monitoring, antibiotic tx, discharge INDIVIDUALIZED FALL PREVENTION INTERVENTIONS: Patient-specific fall risk factors per assessment: [current deficits]: Assistance [level of assistance required for transfers and ambulation]: Supervision [direct monitoring required during toileting and ADLs]: Surveillance [continuous indirect monitoring]: Patient-specific fall prevention interventions for sensory deficits provided, if applicable: [X] Yes CARE PLAN GOAL OUTCOME EVALUATION: Problem: Adult Inpatient Plan of Care Goal: Plan of Care Review Outcome: Ongoing (Interventions Implemented as Appropriate) Goal: Patient-Specific Goal (Individualized) Outcome: Ongoing (Interventions Implemented as Appropriate) Goal: Absence of Hospital-Acquired Illness or Injury Outcome: Ongoing (Interventions Implemented as Appropriate) Goal: Optimal Comfort and Wellbeing Outcome: Ongoing (Interventions Implemented as Appropriate) Goal: Readiness for Transition of Care Outcome: Ongoing (Interventions Implemented as Appropriate) Problem: Fall Injury Risk Goal: Absence of Fall and Fall-Related Injury Outcome: Ongoing (Interventions Implemented as Appropriate) Problem: Pain Acute Goal: Acceptable Pain Control and Functional Ability Outcome: Ongoing (Interventions Implemented as Appropriate) Problem: Infection Goal: Absence of Infection Signs and Symptoms Outcome: Ongoing (Interventions Implemented as Appropriate) * Plan of Care - Paulino Li RN - 11/21/2023 3:28 AM EDT OUTCOME EVALUATION NOTE: OUTCOME SUMMARY: Pt AAOx4. VSS on RA. C/o 7/10 right jaw pain, scheduled pain med and PRN morphine given x1 w/ moderate effect. Denied CP, SOB, N/V, dizziness. The infected tooth socket still putting out pus. Up to BR independently. Refused bed alarm, see refusal note. Voiding w/o issue, reported yellow urine. No BM. Meds given per JUL. IV abx continues. Safety maintained. NAEO. PLAN MOVING FORWARD: VS Q6h BG QID Pain management IV abx MRSA and blood cx f/u INDIVIDUALIZED FALL PREVENTION INTERVENTIONS: Patient-specific fall risk factors per assessment: [current deficits]: medical equipment, hx of falls Assistance [level of assistance required for transfers and ambulation]: IND or SBA Supervision [direct monitoring required during toileting and ADLs]: hands/eyes on Surveillance [continuous indirect monitoring]: call jane in reach, masimo, purposeful rounding, room close to nurses station Patient-specific fall prevention interventions for sensory deficits provided, if applicable: [X] N/A CARE PLAN GOAL OUTCOME EVALUATION: Problem: Adult Inpatient Plan of Care Goal: Plan of Care Review Outcome: Ongoing (Interventions Implemented as Appropriate) Goal: Patient-Specific Goal (Individualized) Outcome: Ongoing (Interventions Implemented as Appropriate) Goal: Absence of Hospital-Acquired Illness or Injury Outcome: Ongoing (Interventions Implemented as Appropriate) Goal: Optimal Comfort and Wellbeing Outcome: Ongoing (Interventions Implemented as Appropriate) Goal: Readiness for Transition of Care Outcome: Ongoing (Interventions Implemented as Appropriate) Problem: Fall Injury Risk Goal: Absence of Fall and Fall-Related Injury Outcome: Ongoing (Interventions Implemented as Appropriate) Problem: Pain Acute Goal: Acceptable Pain Control and Functional Ability Outcome: Ongoing (Interventions Implemented as Appropriate) Problem: Infection Goal: Absence of Infection Signs and Symptoms Outcome: Ongoing (Interventions Implemented as Appropriate) * Patient Refusal of Care - Paulino Li RN - 11/20/2023 9:49 PM EDT Patient refusing to have bed alarm. The reason pt gave for this refusal was I don't need it. I'll let you know if I need your help. Nursing actions taken during this shift to address patient???s refusal included Education about importance of care Plan to address patient???s refusal include Nursing leadership notified and Complex Care Rounds to be planned * Initial Assessments - Marley Bledsoe RN - 11/20/2023 1:26 PM EDT Office of Care Management Initial Assessment Marley Bledsoe RN reviewed record and discussed patient with Care Team. Source of Information: Team, bedside nurse, medical record, and Patient, Chart Review. Introduced self/reviewed role; services accepted. Patient interviewed at the bedside. Reviewed what OPAT plan would look like should she need that. Her would be willing to assist, and her [id number] is nearby and available as well. She has good dexterity. Admitted From: Home Reason for Hospitalization: infected jaw Past medical History: Past Medical History: Diagnosis Date Arthritis Chronic pain 09/15/2018 Gastroesophageal reflux 09/15/2018 Hyperlipidemia 09/15/2018 Hypertension 09/15/2018 LORRI on CPAP 09/15/2018 Type 2 diabetes mellitus without complication, with long-term current use of insulin 09/15/2018 Hospitalizations Within the Past 30 Days: no previous admission in last 30 days Current Decision-Making Capacity: Self If AD's have not been completed the following surrogate would be surrogate decision maker per [place] surrogate decision making law. (Only good for 180 days) Any patient receiving care in [place] must abide by [place] law. The hierarchy for surrogate decision making is: (a) Patient???s spouse or civil union partner unless there is a divorce proceeding, separation agreement, or restraining order limiting that person???s relationship with the patient. - Taylor La (Spouse) (b) Any adult son or daughter of the patient. (c) Either parent of the patient. (d) Any adult brother or sister of the patient. (e) Any adult grandchild of the patient. (f) Any grandparent of the patient. (g) Any adult aunt, uncle, niece, or nephew of the patient. (h) A close friend of the patient. (i) The agent with financial power of trust and estates attorney or a conservator appointed in accordance with RSA 464-A. (j) The guardian of the patient???s estate. Advance Care Planning: Attempt Cardiopulmonary Resuscitation - Inpatient <no information> -Advanced Directive: No, declines Current Coping/Education/Information Needs: answered questions about home IV antibiotics and VNA Current Functional Ability: Independent Functional Status Prior to Admission: Independent Prior ADLs & IADLs: Independent with all ADLs & IADLs (increased time due to fibromyalgia pain) Home Environment: Others in the home: spouse, pet(s) (2 dogs and a cat). Current Living Arrangements: home/apartment/condo. Accessibility Concerns:single floor living, with loft. 2 steps to enter.. In the last 12 months, was there a time when you were not able to pay the mortgage or rent on time?: No In the past 12 months, how many times have you moved where you were living?: 1 At any time in the past 12 months, were you homeless or living in a long term (including now)?: No In the past 12 months has the iMER, gas, oil, or water Web[employer] threatened to shut off services in your home?: No Within the past 12 months, you worried that your food would run out before you got the money to buymore.: Never true (takes advantage of food shelf) Within the past 12 months, the food you bought just didn't last and you didn't have money to get more.: Never true Resource / Environmental Concerns: Resource/Environmental Concerns: none In the past 12 months, has lack of transportation kept you from medical appointments or from getting medications?: No In the past 12 months, has lack of transportation kept you from meetings, work, or from getting things needed for daily living?: No Current DME: cane - straight (in the winter) Home Address confirmed as: [address] [place] [address] Social & Family Supports: All names listed below confirmed with patient as current and correct Extended Emergency Contact Information Primary Emergency Contact: Taylor La [address]: [address] [place] [address] [place] of [place] Mobile Relation: Spouse Secondary Emergency Contact: Syeda Martinez Relation: Friend Current Care Provided by: self Provides Primary Care For: no one Caregiver if needed: spouse Quality of Family relationships: helpful, involved, supportive Community Resources being provided currently: none Behavioral Health History: Coping adequateley Substance Use/Abuse confirmed: Social History Tobacco Use Smoking Status Every Day Current packs/day: 1.00 Average packs/day: 1 pack/day for 28.0 years (28.0 ttl pk-yrs) Types: Cigarettes Smokeless Tobacco Never Tobacco Comments Currently using nicotine inhaler to help herself quit (11/08/18) In the past year have you used an illegal drug or used a prescription medication for non-medical reasons?: No 0 No problems reported 1-2 Low level 3-5 Moderate level 6-8 Substantial level 9- 10 Severe level In the past year have you had 4 or more drinks a day containing alcohol?: No 0 to 7 points: Low risk 8 to 15 points: Medium risk 16 to 19 points: High risk 20 to 40 points: Addiction likely Other Pertinent/Service Specific Information: IV ABX Health/Prescription Coverage: Primary Insurance: MEDICARE Payor: MEDICARE / Plan: MEDICARE PART A & B / Product Type: *No Product type* / Secondary Insurance: MEDICAID [place] ONLY if patient has Medicare A&B - Does this patient have secondary insurance?: Yes ; Prescription Coverage: Yes Preferred Pharmacy: [facility] [address] [address] Status: Patient is a : No Primary Care Provider confirmed: Unknown None-goes to [facility] but is unsure of providers name Patient/Caregiver Goals of Treatment: to return home [place] once plan is determined. She doesnt want to hold a bed for someone else who may need it Potential Needs for Transition of Care: home health care, outpatient care Agency Referrals: I have met with the patient to: discuss discharge planning needs. provide the [facility], Office of Care Management letter from the [employer] pertaining to rehab referrals. provide a letter describing our affiliations within the [facility] and educate about their right to choose where referrals are sent. provide a list of Home Health Agencies / Durable Medical Equipment vendors which serve their preferred geographic area. provided patient with [facility] Star Quality Rating handout. They have requested referrals to: [facility] [address] [place] [address] [place], [place] [address], [place] [id number] [place] [address] or Note routed to a Sheet Roller Operator who will communicate referrals to facilities and provide any required information. Transportation: no concerns Transportation Anticipated: family or friend will provide Concerns to be Addressed: denies needs/concerns at this time Assessment: Patient is admitted to hospital medicine service for jaw pain, unable to arrange for timely outpatient facial surgeon evaluation, earliest appt was late November but others were into March. Plan going forward: Patient is independent at home. Good support from and brother in law. Will route above referrals to start OPAT process pending medical progression. Care Management team will continue to follow and assist with discharge planing and coordination of care as indicated. Marley Bledsoe RN, CM Pager #: [phone] * Plan of Care - Slime Gilliam RN - 11/20/2023 9:01 AM EDT PT IS A/O X4, RA, VSS. UA SENT THIS AM URINE NOTED TO BE PINK/RED TINGED. PT REPORTS HAVING UTI'S WITHOUT SYMPTOMS. PT IS CURRENTLY BEING TREATED FOR OSTEOMYLITIS FROM JULY DENTAL SURGERY WELL ASGRAM + BLOOD CUTLURES. ID AND OTOLARYNGOLOGY HAVE BEEN CONSULTED. AFEBRILE, INDEPENDENTLY AMBULATORY. Problem: Adult Inpatient Plan of Care Goal: Plan of Care Review Outcome: Ongoing (Interventions Implemented as Appropriate) Goal: Patient-Specific Goal (Individualized) Outcome: Ongoing (Interventions Implemented as Appropriate) Goal: Absence of Hospital-Acquired Illness or Injury Outcome: Ongoing (Interventions Implemented as Appropriate) Goal: Optimal Comfort and Wellbeing Outcome: Ongoing (Interventions Implemented as Appropriate) Goal: Readiness for Transition of Care Outcome: Ongoing (Interventions Implemented as Appropriate) Problem: Fall Injury Risk Goal: Absence of Fall and Fall-Related Injury Outcome: Ongoing (Interventions Implemented as Appropriate) Problem: Pain Acute Goal: Acceptable Pain Control and Functional Ability Outcome: Ongoing (Interventions Implemented as Appropriate) Problem: Infection Goal: Absence of Infection Signs and Symptoms Outcome: Ongoing (Interventions Implemented as Appropriate) * Plan of Care - Jen, Paulino Patterson RN - 11/20/2023 6:07 AM EDT OUTCOME EVALUATION NOTE: OUTCOME SUMMARY: Chen Hickman LPN provided most of pt care. Please see [employer]'s note for further shift details. Additionally, Pt AAOx4. VSS on RA. C/o 02/01 right jaw pain relieved with PRN pain meds. Had a toothsocket putting out pus, and pt report to drain it by self. Had red pink tinged urine, no clot, see I/O, pt reported this new episode since in ED, no c/o pain/burning void or dizziness, VSS, MD Alvin notified and said to monitor CBC and UA. UA ordered andpended to collect. Denied CP, SOB, N/V, dizziness. IV abx given. Assessment as filed. Safety maintained. NAEO. PLAN MOVING FORWARD: VS Q6h BG QID Pain management IV abx UA collection Monitor labs INDIVIDUALIZED FALL PREVENTION INTERVENTIONS: Patient-specific fall risk factors per assessment: [current deficits]: medical equipment, hx of falls Assistance [level of assistance required for transfers and ambulation]: 1A FWW Supervision [direct monitoring required during toileting and ADLs]: hands/eyes on Surveillance [continuous indirect monitoring]: bed alarm, call jane in reach, masimo, purposeful rounding, room close to nurses station Patient-specific fall prevention interventions for sensory deficits provided, if applicable: [X] N/A CARE PLAN GOAL OUTCOME EVALUATION: Problem: Adult Inpatient Plan of Care Goal: Plan of Care Review Outcome: Ongoing (Interventions Implemented as Appropriate) Goal: Patient-Specific Goal (Individualized) Outcome: Ongoing (Interventions Implemented as Appropriate) Goal: Absence of Hospital-Acquired Illness or Injury Outcome: Ongoing (Interventions Implemented as Appropriate) Goal: Optimal Comfort and Wellbeing Outcome: Ongoing (Interventions Implemented as Appropriate) Goal: Readiness for Transition of Care Outcome: Ongoing (Interventions Implemented as Appropriate) Problem: Fall Injury Risk Goal: Absence of Fall and Fall-Related Injury Outcome: Ongoing (Interventions Implemented as Appropriate) Problem: Pain Acute Goal: Acceptable Pain Control and Functional Ability Outcome: Ongoing (Interventions Implemented as Appropriate) Problem: Infection Goal: Absence of Infection Signs and Symptoms Outcome: Ongoing (Interventions Implemented as Appropriate) * Assessment & Plan Note - Misael Joaquin MD - 11/19/2023 6:24 PM EDT Associated Problem(s): Chronic pain High concern for serotonin syndrome with home [...] home med after 5 days of toradol) * Assessment & Plan Note - Misael Joaquin MD - 11/19/2023 5:40 PM EDT Associated Problem(s): Hypertension - home losartan with hold parameters * Assessment & Plan Note - Misael Joaquin MD - 11/19/2023 5:40 PM EDT Associated Problem(s): Type 2 diabetes mellitus without complication, with long-term current use ofinsulin Patient stated she would not give up regular soda long-term but would try to stop it while being treated for this potentially very morbid infection. She is concerned about the headaches/migraines shegets when not drinking the soda, but she could be offered caffeine in others forms in the meantime.She also essentially stated she cannot adhere to a restrictive diet while here though I encouraged her to try since poor glucose control will negatively impact her ability to overcome this infection.She was also reluctant to have finger stick glucose checks though unfortunately we cannot manage her DM from her CGM. I did make several compromises since it appears she may not be able to tolerate ho spitalization otherwise. - holding home semaglutide - carb count diet no limit - TID checks with sensitive scale and mealtime carb count coverage * Assessment & Plan Note - Misael Joaquin MD - 11/19/2023 5:40 PM EDT Associated Problem(s): LORRI on CPAP Doesn't use ~90% of the time, has nasal CPAP but finds even this to be claustrophobic. * Assessment & Plan Note - Misael Joaquin MD - 11/19/2023 5:40 PM EDT Associated Problem(s): Gastroesophageal reflux - home famotidine QHS - Formulary change home PPI QAM--> pantoprazole * Assessment & Plan Note - Misael Joaquin MD - 11/19/2023 5:40 PM EDT Associated Problem(s): Osteomyelitis of anterior right mandible Presumably a consequence of her dental infection(s) in the setting of unclear long-term diabetes control. Appreciate ENT evaluation and following; for now, medical management will continue. - continue pip-tazo IV - ENT recs - diabetes mgmt as below - pain mgmt as below - consider PICC in anticipation of prolonged IV abx, unclear if step-down oral therapy will be acceptable ultimately * Assessment & Plan Note - Misael Joaquin MD - 11/19/2023 5:40 PM EDT Associated Problem(s): Hot flashes - home clonidine * Consult Note - Dariana Jane MD - 11/19/2023 5:05 PM EDT Images from the original note were not included. OTOLARYNGOLOGY - HEAD & NECK SURGERY CONSULT NOTE Name: Erickson La Age/Sex: 58 y.o. female ENT Attending: [facility] Day: 2 History of Present Illness We are seeing Erickson La today at the request of Dr. Walt Sewell MD regarding RIGHT neck swelling. Erickson La is a 58 y.o. female with PMH HTN, HLD, T2DM, tobacco use (1/2ppd x ~30yrs) and GERDwho presents to the ED today with jaw pain and swelling. Patient reports she underwent extractions of mandibular teeth in July after having several dental caries. This was performed in [facility]. Since extractions she has had intermittent swelling and purulent drainage from her extraction site. She was started on now ?7 courses of antibiotics since July with intermittent improvement in symptoms which unfortunately have returned. She was again started on Clindamycin last and notessome initial improvement but this has progressed. She was told earlier this week [facility]. Patient denies any fevers, or chills, no chest pain. She denies any recent trauma to the area. She has not worn dentures recently due to pain. She Denies any blood in her saliva. She does not have history of osteoporosis and does not take any bisphosphonate medications. Review of Systems Pertinent positive findings discussed above. No other findings on review of constitutional, visual,cardiovascular, respiratory, gastrointestinal, genitourinary, musculoskeletal, dermatologic, neurological, psychiatric, endocrine, hematologic or immunologic systems. 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 S/P ORIF bilateral foot fractures, 09/16/18 (Gitajn) S92.209A Hypertension I10 Hyperlipidemia E78.5 Type 2 diabetes mellitus without complication, with long-term current use of insulin E11.9, Z79.4 Chronic pain G89.29 LORRI on CPAP G47.33 Gastroesophageal reflux K21.9 Osteomyelitis of anterior right mandible M86.9 Hot flashes R23.2 Past Medical History Past Medical History: Diagnosis Date Arthritis Chronic pain 09/15/2018 Gastroesophageal reflux 09/15/2018 Hyperlipidemia 09/15/2018 Hypertension 09/15/2018 LORRI on CPAP 09/15/2018 Type 2 diabetes mellitus without complication, with long-term current use of insulin 09/15/2018 Past Surgical History Past Surgical History: Procedure Laterality Date KNEE ARTHROSCOPY Bilateral PRO CLOSED TREAT TARSAL FX, MANIP, EACH Left 09/16/2018 CLOSED REDUCTION TARSAL BONE FX (WRVU 3.24) performed by Aparna Reed MD at [facility] MAIN OR PRO OPEN TREATMENT METATARSAL FRACTURE EACH Bilateral 09/16/2018 ORIF METATARSAL FX, EACH (WRVU 7.44) performed by Aparna Reed MD at [facility] MAIN OR PRO OPEN TREATMENT TARSOMETATARSAL JOINT DISLOCATION Right 09/16/2018 OPEN TREAMENT TARSOMETATARSAL JOINT DISLOCATION (WRVU 10.7) performed by Aparna Rede MD at [facility] MAIN OR PRO OPEN TX FRACTURE GREAT TOE/PHALANX/PHALANGES Right 09/16/2018 ORIF GREAT TOE (WRVU 7.44) performed by Aparna Reed MD at [facility] OR PRO PERCUT TREAT METATARSAL FX Left 09/16/2018 PERCUTANEOUS PINNING, METATARSAL FX, EA. (WRVU 3.6) performed by Aparna Reed MD at [facility] MAIN OR PRO PERCUT TREAT TAR-METATAR FOOT DISLOC Right 09/16/2018 PERCUTANEOUS PINNING, TARSOMETATARSAL JOINT DISLOCATION (WRVU 5.09) performed by Aparna Reed MD at [facility] MAIN OR SHOULDER ARTHROSCOPY Bilateral Medications & Allergies No current facility-administered medications on file prior to encounter. Current Outpatient Medications on File Prior to Encounter Medication Sig Dispense Refill celecoxib (CeleBREX) 100 mg capsule Take 100 [...] Inject 0.25 mg subcutaneously once a week. simvastatin (Zocor) 40 mg tablet Take 1 tablet by mouth daily. traMADoL (Ultram) 50 mg tablet Take 50 mg by mouth every 8 hours as needed for Pain. zolpidem (Ambien) 10 mg tablet Take 10 mg by mouth nightly as needed for Sleep. fluconazole (Diflucan) 150 mg tablet TAKE 1 TABLET BY MOUTH A SINGLE DOSE AND REPEAT IN 3 DAYS baclofen (Lioresal) 10 mg tablet Take 1 tablet by mouth Three Times Daily for DHE. Bee sting [hymenoptera allergenic extract]; Sulfa (sulfonamide antibiotics); and Tape, occlusive adhesive Social History Lives in [place] [address] Social History Socioeconomic History Marital status: Spouse name: Not on file Number of children: Not on file Years of education: Not on file Highest education level: Not on file Occupational History Not on file Tobacco Use Smoking status: Every Day Current packs/day: 1.00 Average packs/day: 1 pack/day for 28.0 years (28.0 ttl pk-yrs) Types: Cigarettes Smokeless tobacco: Never Tobacco comments: Currently using nicotine inhaler to help herself quit (11/08/18) Vaping Use Vaping status: Never Used Substance and Sexual Activity Alcohol use: Not Currently Drug use: Never Sexual activity: Not on file Other Topics Concern Not on file Social History Narrative Not on file Social Determinants of Health Financial Resource Strain: Not on file Food Insecurity: No Food Insecurity (11/20/2023) Hunger Vital Sign Worried About Running Out of Food in the Last Year: Never true Ran Out of Food in the Last Year: Never true Transportation Needs: No Transportation Needs (11/20/2023) PRAPARE - Transportation Lack of Transportation (Medical): No Lack of Transportation (Non-Medical): No Physical Activity: Not on file Intimate Partner Violence: Not At Risk (11/20/2023) IPV Inpatient Questions Prevent Contact with Others: no Feels Threatened by Someone: no Feels Unsafe at Home: no Physical Signs of Abuse Present: no Housing Stability: Low Risk (11/20/2023) Housing Stability Vital Sign Unable to Pay for Housing in the Last Year: No Number of Times Moved in the Last Year: 1 Homeless in the Last Year: No Family History No family history on file. Vitals Last value 24hr Range Temperature: 36.6 ??C (97.9 ??F) Temp: [36.3 ??C (97.3 ??F)-36.6 ??C (97.9 ??F)] Heart Rate: 74 Heart Rate: [64-84] Blood Pressure: 138/75 BP: (110-146)/(64-93) Respiratory Rate: 18 Resp: [15-18] SpO2: 97 % SpO2: [94 %-99 %] Physical Exam General: NAD, non-ill appearing Face: Symmetric without dysmorphic features Eyes: EOMI, conjunctiva healthy Ears: Auricles symmetric, no lesions Nose: Patent nares, grossly normal appearance Oral Cavity/Pharynx: Mucosa is pink, there is an area of leukoplakia along LEFT gingiva which does not appear ulcerative. There is slight heaping of mucosa overlying mandibular extraction site just to the RIGHT of mandibular symphysis. With firm pressure in submandibular region a small amount of purulence can be expressed. Neck: Soft, trachea midline, no significant adenopathy Chest: Unlabored breathing, regular rate Neuro: Alert & oriented, moving extremities x 4 Media Information Document Information Photographic Image: Photographs - Images 11/19/2023 16:39 Attached To: Hospital Encounter on 11/19/23 Source Information Dariana Jane MD [facility] Ed Document History Procedures - Labs Recent Labs 11/20/23 0142 11/19/23 1115 WBC 8.6 14.9* HGB 10.9* 12.8 HCT 32.8* 38.7 PLATELET 260 326 NA 142 143 K 3.2* 3.8 CL 113* 111* CO2 18* 20* BUN 12 18 CREATININE 0.83 0.90 GLUCOSE 76 140 CALCIUM 7.9* 9.5 Imaging FINDINGS: Patient is edentulous. Centered within the [...] mostly clear. Intraorbital contents are grossly normal.. IMPRESSION Advanced osteomyelitis of the anterior RIGHT mandible. *Personally reviewed and evaluated ASSESSMENT & RECOMMENDATIONS Erickson La is a 58 y.o. female with clinical and radiographic evidence of osteomyelitis of themandible ISO recent dental extractions and T2DM. Patient reports blood glucose has been well controlled and A1C has been <7. I have sent cultures from the purulent mandibular drainage, but agree with empiric antibiotics (consider Unasyn). I have reviewed this case with our oral surgeons who are unfortunately not in house next week. Reactive changes in mandible and lack of mucosal changes are most suspicious for osteomyelitis, however,given risk factor of tobacco use cannot rule out malignancy. Although slow progression and lack of mucosal ulceration or change makes malignancy unlikely. Recommending continued antibiotics per ID. However, we will arrange outpatient evaluation and consider debridement when our OMFS team returns. Please reengage ENT if patient's clinical course changes. __ Dariana Jane MD, PGY4 11/20/2023 3:54 PM Pager #[phone] ENT Team Pager: [phone] documented in this encounter Plan of Treatment Scheduled Orders Name Type Priority Associated Diagnoses Orde r Schedule EKG 12 Lead ECG STAT Hypertension, unspecified type One Time for 1 Occurrences starting 11/19/2023 until 11/19/2023 Scheduled Referrals Name Type Priority Associated Diagnoses Order Schedule Referral to [facility] Outpatient Referral Routine Osteomyelitis, unspecified site, unspecified type Ordered: 11/21/2023 documented as of this encounter Procedures Procedure Name Priority Date/Time Associated Diagnosis Comments POCT GLUCOSE Routine 11/21/2023 11:27 AM EDT POCT GLUCOSE Routine 11/21/2023 6:29 AM EDT HEMOGRAM Routine 11/21/2023 5:25 AM EDT DIFFERENTIAL, AUTOMATED Routine 11/21/2023 5:25 AM EDT CBC (WITH DIFF) Routine 11/21/2023 5:25 AM EDT BASIC METABOLIC PANEL Routine 11/21/2023 5:25 AM EDT POCT GLUCOSE [...] POCT GLUCOSE Routine 11/20/2023 3:10 AM EDT HEMOGRAM Routine 11/20/2023 1:42 AM EDT DIFFERENTIAL, AUTOMATED Routine 11/20/2023 1:42 AM EDT CBC (WITH DIFF) Routine 11/20/2023 1:42 AM EDT BASIC METABOLIC PANEL Routine 11/20/2023 1:42 AM EDT POCT GLUCOSE Routine 11/19/2023 7:19 PM EDT ANAEROBIC CULTURE Routine 11/19/2023 4:4 3 PM EDT HC WOUND/ABSCESS CX Routine 11/19/2023 4 :43 PM EDT ABSCESS/WOUND ASPIRATE CULTURE Routine 11/19/2023 4:[address] FACIAL BONES W CONTRAST STAT 11/19/2023 12:37 PM EDT HEMOGRAM STAT 11/19/2023 11:15 AM EDT DIFFERENTIAL, AUTOMATED STAT 11/19/2023 11:15 AM EDT GOLD TUBE HOLD STAT 11/19/2023 11:15 AM EDT BLUE TUBE HOLD STAT 11/19/2023 11:15 AM EDT CBC (WITH DIFF) STAT 11/19/2023 11:15 AM EDT BASIC METABOLIC PANEL STAT 11/19/2023 11:15 AM EDT documented in this encounter Results * POCT Glucose (11/21/2023 11:27 AM EDT) Glucose, POC 154 65 - 199 mg/dL [facility] Comment: Supplemental ranges: <140 mg/dL before meals <180 mg/dL all other times of the day Blood 11/21/2023 11:2 7 AM EDT 11/21/2023 11:27 AM EDT Jeramie Rodriguez MD POINT OF CARE TEST ORDERABLES [facility] [place] [address] * POCT Glucose (11/21/2023 6:29 AM EDT) Pathologist [facility] Glucose, POC 120 65 - 199 mg/dL [facility] Comment: Supplemental ranges: <140 mg/dL before meals <180 mg/dL all other times of the day Blood 11/21/2023 6:29 AM EDT 11/21/2023 6:29 AM EDT Walt Sewell MD POINT OF CARE TEST O RDERABLES [facility] [place] [address] * Differential, Automated (11/21/2023 5:25 AM EDT) [facility] Neutrophil % 49.4 % [facility] Neutrophil Absolute 3.46 1.70 - 6.10 x10(3)/[facility] Lymph % 41.6 % [facility] Lymphocytes Abs 2.9 0.9 - 3.2 x10(3)/[facility] Monocyte % 7.1 % [facility] Monocyte Abs 0.5 0.3 - 0.9 x10(3)/[facility] Eos % 1.4 % [facility] Eosinophils Abs 0.1 0.0 - 0.4 x10(3)/[facility] Basophil % 0.4 % [facility] Baso Absolute 0.0 0.0 - 0.1 x10(3)/[facility] Immature Gran % 0.10 % [facility] Comment: Immature granulocytes(IG's)percentage and absolute count will include metamyelocytes, myelocytes, and promyelocytes. Blood smears from CBCs yielding IG's will be scanned manually for concordance. If this scan disagrees with the automated IG or if promyelocytes are noted, a manual differential will be performed. Immature Gran Absolute 0.01 0.00 - 0.04 x10(3)/[facility] Blood 11/21/2023 5:25 AM EDT 11/21/2023 5:32 AM EDT Narrative Resulting Agency Comment Spec In Lab Misael Joaquin MD HEMATOLOGY ORDERABLE S Performing Organization Address City/State/[facility] Co de Phone Number [facility] [place] [address] * (ABNORMAL) Hemogram (11/21/2023 5:25 AM EDT) White Blood Cell 7.0 4.0 - 9.5 x10(3)/mc L [facility] Red Blood Cell 3.67(L) 4.00 - 5.21 x10(6)/mc L [facility] Hemoglobin 11.5(L) 11.7 - 15.5 g/dL [facility] Hematocrit 34.7(L) 35.7 - 45.8 % [facility] Mean Cell Volume 94.6(H) 82.6 - 94.4 fL [facility] Mean Cell Hemoglobin 31.3 27.1 - 32.0 pg [facility] Mean Cell Hemoglobin Concentration 33.1 31.7 - 35.0 g/dL [facility] Platelet 247 145 - 357 x10(3)/mc L [facility] RDW Standard Deviation 43.3 37.0 - 46.0 [facility] RDW coefficient of variation 12.5 11.5 - 14.1 % [facility] Mean Platelet Volume 9.7 7.6 - 12.9 fL [facility] NRBC% auto 0.0 % [facility] NRBC Absolute 0.000 0.000 - 0.000 x10(3)/mc L [facility] Blood 11/21/2023 5:25 AM EDT 11/21/2023 5:32 AM EDT Narrative Resulting Agency Comment Spec In Lab Misael Joaquin MD HEMATOLOGY ORDERABLE S [facility] [place] [address] * (ABNORMAL) Basic Metabolic Panel (non-fasting) (11/21/2023 5:25 AM EDT) Glucose 113 65 - 199 mg/dL [facility] Comment:Diabetes: >=200 mg/d L plus symptoms Blood Urea Nitrogen 15 8 - 18 mg/dL [facility] Creatinine 0.93 0.70 - 1.20 mg/dL [facility] Sodium 143 135 - 145 mmol/L [facility] Potassium 3.6 3.5 - 5.0 mmol/L [facility] Comment: Please note: ??Patients with WBC >100,000 may have falsely elevated Potassium levels. ??For accurate Potassium quantification in these patients send serum separator tube (gold top) for subsequent determinations. ??Contact the Clinical Chemistry Laboratory if there are any questions. Chloride 111(H) 98 - 107 mmol/L [facility] Carbon Dioxide 22 22 - 31 mmol/L [facility] Anion Gap 10 5 - 15 mmol/L [facility] Calcium 8.4(L) 8.5 - 10.5 mg/dL [facility] Est Glomerular Filtration Rate 72 >=60 mL/min/1. 73 m?? [facility] Comment: This patient's estimated GFR was [...] In Lab Misael Joaquin MD CHEMISTRY ORDERABLES Performing Organization Address [facility]/ZIP Co de Phone Number [facility] [place] [address] * POCT Glucose (11/20/2023 9:45 PM EDT) Glucose, POC 131 65 - 199 mg/dL [facility] Comment: Supplemental ranges: <140 mg/dL before meals <180 mg/dL all other times of the day Blood 11/20/2023 9:45 PM EDT 11/20/2023 9:45 PM EDT Walt Sewell MD POINT OF CARE TEST O RDERABLES Performing Organization Address [facility] Co de Phone Number [facility] [place] [address] * POCT Glucose (11/20/2023 7:01 PM EDT) Glucose, POC 162 65 - 199 mg/dL [facility] Comment: Supplemental ranges: <140 mg/dL before meals <180 mg/dL all other times of the day Blood 11/20/2023 7:01 PM EDT 11/20/2023 7:01 PM EDT Walt Sewell MD POINT OF CARE TEST O JONY Performing Organization Address City/[facility]/ZIP Co de Phone Number [facility] [place] [address] * (ABNORMAL) POCT Glucose (11/20/2023 4:44 PM EDT) Glucose, POC 262(H) 65 - 199 mg/dL [facility] Comment: Supplemental ranges: <140 mg/dL before meals <180 mg/dL all other times of the day Blood 11/20/2023 4:44 PM EDT 11/20/2023 4:44 PM EDT Walt Sewell MD POINT OF CARE TEST O RDERABLES [facility] [place] [address] * ECHO COMPLETE (11/20/2023 4:03 PM EDT) Anatomical Region Laterality Modality Cardiac Other 11/20/2023 3:17 PM EDT Narrative 11/20/2023 4:13 PM EDT [address] [place] [id number] ? Echocardiogram Report Name: ERICKSON LA Jessica ?Study Date: 11/20/2023 03:17 PM ? Patient Location: [id number] A : 1965 ? Height: 155 cm ? Account: [id number] Age: 58 yrs ? Weight: 70 kg Gender: Female ?BSA: 1.7 m2 Ordering Physician: WALT SEWELL Referring Physician: NONE Performed By: Kiana Andrade RDCS Reason For Study: Osteomyelitis Exam Location: [facility]. Interpretation Summary 1. Left ventricle is of [...] No prior study available for comparison. Procedure Complete-33308. Satisfactory quality. Left Ventricle Left ventricle is [...] Note Michael Acharya MD - 11/20/2023 [address] [place] [address] Echocardiogram Report Name: ERICKSON LA Study Date: 403:17 PM Patient Location: [id number] A : 1965 Height: 155 cm Account: [id number] Age: 58 yrs Weight: 70 kg Gender: Female BSA: 1.7 m2 Ordering Physician: WALT SEWELL Referring Physician: NONE Performed By: Kiana Andrade RDCS Reason For Study: Osteomyelitis Exam Location: [facility]. Interpretation Summary 1. Left ventricle is of [...] No prior study available for comparison. Procedure Complete-63354. Satisfactory quality. Left Ventricle Left ventricle is [...] grams 74.3 ml/m2 LV mass(C)dI: 79.5 grams/m2 ESV()Indexed: Ao root diam: 3.0 cm 28.9 ml/m2 [...] MD ECHO ORDERABLES * MRSA PCR Screen ([facility]/CGP/APD/NLH) (11/20/2023 12:27 PM EDT) MRSA PCR Negative Negative [facility] MRSA (Interp) Methicillin-resist ant Staphylococcus aureus (MRSA) is NOT DETECTED The MRSA target DNA sequences (mec and SCC) were not detected within the acceptable ranges using the Xpert MRSA NxG on the GeneXpert Dx System (Component[employer]). This suggests the absence of MRSA in the patient specimen submitted for testing. This test is cleared by the U.S. Food and Drug Administration for clinical use and its performance characteristics have been verified by the [facility] at [facility]. This result does not rule out the presence of any other organisms. Rare false negative results may occur if MRSA is present at low concentrations with much higher concentrations of other organisms including MRSE or S. aureus with an empty SCC cassette. [facility] Comment: [VERIFIED DATE]11.21.23 Verified By:Kathy Nation (Electronic Signature) Swab 11/20/2023 12:2 7 PM EDT 11/20/2023 2:35 PM EDT Comment:Swab pus/exudate fro m tooth hole Narrative Resulting Agency Comment Spec In Lab Walt Sewell MD MOLECULAR ORDERABLES [facility] [place] [address] * Blood culture (11/20/2023 11:49 AM EDT) Blood Culture No growth at 5 days. [facility] Blood STRUCTURE OF RIGHT HAND / Unknown 11/20/2023 11:49 AM EDT 11/20/2023 12:15 PM EDT Narrative Resulting Agency Comment Spec In Lab Walt Sewell MD MICROBIOLOGY - BLOOD ORDERABLES Performing Organization Address [facility]/ZIP Co de Phone Number [facility] [place] [address] * POCT Glucose (11/20/2023 11:36 AM EDT) Glucose, POC 132 65 - 199 mg/dL [facility] Comment: Supplemental ranges: <140 mg/dL before meals <180 mg/dL all other times of the day Blood 11/20/2023 11:3 6 AM EDT 11/20/2023 11:36 AM EDT Walt Sewell MD POINT OF CARE TEST O RDERABLES Performing Organization Address [facility] Co de Phone Number [facility] [place] [address] * Urine culture (11/20/2023 7:22 AM EDT) [facility] Urine Culture No growth (Less than 1,000 cfu/ml). [facility] First Catch Urine 11/20/2023 7:22 AM EDT 11/20/2023 9:09 AM EDT Narrative Resulting Agency Comment Spec In Lab Sherri Esquivel MD MICROBIOLOGY - GENE RAL ORDERABLES Performing Organization Address [facility]/ZIP Co de Phone Number [facility] [place] [address] * (ABNORMAL) Urinalysis Microscopic Exam (11/20/2023 7:22 AM EDT) RBC, Urine >100(H) 0 - 4 /HPF [facility] WBC, Urine 25(H) 0 - 5 /HPF [facility] Squamous Epithelial Cells Raw Data, Urine 2 <=4 /HPF [facility] Hyaline Casts, Urine 2 0 - 2 /LPF [facility] First Catch Urine 11/20/2023 7:22 AM EDT 11/20/2023 7:54 AM EDT Narrative Resulting Agency Comment Spec In Lab Sherri Esquivel MD URINE ORDERABLES Performing Organization Address City/[facility]/ZIP Co de Phone Number [facility] [place] [address] * (ABNORMAL) Urinalysis with reflex Culture (11/20/2023 7:22 AM EDT) Glucose, Urine Dipstick Negative Negative mg/dL [facility] Protein, Urine Dipstick 30(A) Negative mg/dL [facility] Bilirubin, Urine Dipstick Negative Negative mg/dL [facility] Comment: Clinical correlation required for positive Urine Bilirubin results as false positive may occur with some drugs and drug related products. If a false positive is suspected a serum total bilirubin should be considered if clinically indicated. Urobilinogen, Urine Dipstick Normal Normal mg/dL [facility] pH, Urn (dipstick) 6.0 5.0 - 8.0 [facility] Blood, Urine Dipstick Large(A) Negative mg/dL [facility] Ketone, Urine Dipstick Negative Negative mg/dL [facility] Nitrite, Urine Dipstick Negative Negative [facility] Leukocytes, Urine Dipstick Small(A) Negative [facility] Appearance, Urine Dipstick Clear Clear [facility] Specific [place] Urine Automated 1.020 1.005 - 1.030 [facility] Color, Urine Dipstick [place](A) Yellow [facility] Reflex to Culture Yes [facility] First Catch Urine 11/20/2023 7:22 AM EDT 11/20/2023 7:54 AM EDT Narrative Resulting Agency Comment Spec In Lab Sherri Esquivel MD URINE ORDERABLES Performing Organization Address City/[facility]/ZIP Co de Phone Number [facility] [place] [address] * POCT Glucose (11/20/2023 6:21 AM EDT) Glucose, POC 100 65 - 199 mg/dL [facility] Comment: Supplemental ranges: <140 mg/dL before meals <180 mg/dL all other times of the day Blood 11/20/2023 6:21 AM EDT 11/20/2023 6:21 AM EDT Chiquita Azul MD POINT OF CARE TEST ORDERABLES [facility] [place] [address] * POCT Glucose (11/20/2023 3:10 AM EDT) Glucose, POC 108 65 - 199 mg/dL [facility] Comment: Supplemental ranges: <140 mg/dL before meals <180 mg/dL all other times of the day Blood 11/20/2023 3:10 AM EDT 11/20/2023 3:10 AM EDT Chiquita Azul MD POINT OF CARE TEST ORDERABLES Performing Organization Address City/[facility]/ZIP Co de Phone Number [facility] [place] [address] * (ABNORMAL) Differential, Automated (11/20/2023 1:42 AM EDT) Neutrophil % 51.9 % [facility] Neutrophil Absolute 4.48 1.70 - 6.10 x10(3)/mc L [facility] Lymph % 38.6 % [facility] Lymphocytes Abs 3.3(H) 0.9 - 3.2 x10(3)/mc L [facility] Monocyte % 7.5 % [facility] Monocyte Abs 0.6 0.3 - 0.9 x10(3)/mc L [facility] Eos % 1.4 % [facility] Eosinophils Abs 0.1 0.0 - 0.4 x10(3)/ L [facility] Basophil % 0.3 % [facility] Baso Absolute 0.0 0.0 - 0.1 x10(3)/[facility] Immature Gran % 0.30 % [facility] Comment: Immature granulocytes(IG's)percentage and absolute count will include metamyelocytes, myelocytes, and promyelocytes. Blood smears from CBCs yielding IG's will be scanned manually for concordance. If this scan disagrees with the automated IG or if promyelocytes are noted, a manual differential will be performed. Immature Gran Absolute 0.03 0.00 - 0.04 x10(3)/[facility] Blood 11/20/2023 1:42 AM EDT 11/20/2023 1:48 AM EDT Narrative Resulting Agency Comment Spec In Lab Misael Joaquin MD HEMATOLOGY ORDERABLE S [facility] [place] [address] * (ABNORMAL) Hemogram (11/20/2023 1:42 AM EDT) White Blood Cell 8.6 4.0 - 9.5 x10(3)/ L [facility] Red Blood Cell 3.46(L) 4.00 - 5.21 x10(6)/ L [facility] Hemoglobin 10.9(L) 11.7 - 15.5 g/dL [facility] Hematocrit 32.8(L) 35.7 - 45.8 % [facility] Mean Cell Volume 94.8(H) 82.6 - 94.4 fL [facility] Mean Cell Hemoglobin 31.5 27.1 - 32.0 pg [facility] Mean Cell Hemoglobin Concentration 33.2 31.7 - 35.0 g/dL [facility] Platelet 260 145 - 357 x10(3)/ L [facility] RDW Standard Deviation 43.5 37.0 - 46.0 [facility] RDW coefficient of variation 12.5 11.5 - 14.1 % [facility] Mean Platelet Volume 9.9 7.6 - 12.9 [facility]ORY NRBC% auto 0.0 % [facility] NRBC Absolute 0.000 0.000 - 0.000 x10(3)/mc L [facility] Blood 11/20/2023 1:42 AM EDT 11/20/2023 1:48 AM EDT Narrative Resulting Agency Comment Spec In Lab Misael Joaquin MD HEMATOLOGY ORDERABLE S [facility] [place] [address] * (ABNORMAL) Basic Metabolic Panel (non-fasting) (11/20/2023 1:42 AM EDT) Glucose 76 65 - 199 mg/dL [facility] Comment:Diabetes: >=200 mg/d L plus symptoms Blood Urea Nitrogen 12 8 - 18 mg/dL [facility] Creatinine 0.83 0.70 - 1.20 mg/dL [facility] Sodium 142 135 - 145 mmol/L [facility] Potassium 3.2(L) 3.5 - 5.0 mmol/L [facility] Comment: Please note: ??Patients with WBC >100,000 may have falsely elevated Potassium levels. ??For accurate Potassium quantification in these patients send serum separator tube (gold top) for subsequent determinations. ??Contact the Clinical Chemistry Laboratory if there are any questions. Chloride 113(H) 98 - 107 mmol/L [facility] Carbon Dioxide 18(L) 22 - 31 mmol/L [facility] Anion Gap 11 5 - 15 mmol/L [facility] Calcium 7.9(L) 8.5 - 10.5 mg/dL [facility] Comment:result rechecked-HN Est Glomerular Filtration Rate 83 >=60 mL/min/1. 73 m?? [facility] Comment: This patient's estimated GFR was [...] and symptoms in addition to eGFR. Blood 11/20/2023 1:42 AM EDT 11/20/2023 1:48 AM EDT Narrative Resulting Agency Comment Spec In Lab Misael Joaquin MD CHEMISTRY ORDERABLES Performing Organization Address [facility]/ZIP Co de Phone Number [facility] [place] [address] * POCT Glucose (11/19/2023 7:19 PM EDT) Glucose, POC 92 65 - 199 mg/dL [facility] Comment: Supplemental ranges: <140 mg/dL before meals <180 mg/dL all other times of the day Blood 11/19/2023 7:19 PM EDT 11/19/2023 7:19 PM EDT Miguel Benson MD POINT OF CARE TEST O RDERABLES [facility] [place] [address] * (ABNORMAL) Anaerobic Culture (11/19/2023 4:43 PM EDT) Anaerobic Culture Many Parvimonas micra (Peptostreptoc occus micros)(A) [facility] Organism Parvimonas micra (Peptostreptoc occus micros)(A) [facility] Fluid TOPOGRAPHY UNKNOWN / Unknown 11/19/2023 4:43 PM EDT 11/19/2023 7:14 PM EDT Comment:Mandible Narrative Resulting Agency Comment Spec In Lab Dariana Jane MD MICROBIOLOGY - GENER AL ORDERABLES Performing Organization Address [facility] Co de Phone Number [facility] [place] [address] * (ABNORMAL) Abscess/Wound Aspirate Culture (11/19/2023 4:43 PM EDT) Abscess/Wound Aspirate Culture Moderate Streptococcus milleri, anginosis group Rare normal oropharyngeal shala (A) [facility] Gram Stain Many Neutrophils seen Rare Gram Positive Cocci seen (A) [facility] Organism Streptococcus milleri, anginosis group(A) [facility] Organism Gram Positive Cocci(A) [facility] Fluid TOPOGRAPHY UNKNOWN / Unknown 11/19/2023 4:43 PM EDT 11/19/2023 7:14 PM EDT Comment:Mandible Narrative Resulting Agency Comment Spec In Lab Dariana Jane MD MICROBIOLOGY - GENER AL ORDERABLES Performing Organization Address [facility] Co de Phone Number [facility] [place] [address] * CT Face w Contrast (11/19/2023 12:37 PM EDT) WORKSTATION ID [id number] RAD Anatomical Region Laterality Modality Head Computed [...] who have questions please contact the health health care legal assistant that requested your imaging first. ? Electronically signed by: Marilou Perez MD, [facility] ([phone]), at 11/19/2023 1:18 PM Narrative 11/19/2023 1:18 PM EDT EXAMINATION: CT [...] patients who have questions please contactthe health health care legal assistant that requested your imaging first. Titus South MD IMG CT ORDERABLES * Gold Tube HOLD (11/19/2023 11:15 AM EDT) Gold Hold Sample in lab. [facility] Blood Venous Draw / Unknown 11/19/2023 11:15 AM EDT 11/19/2023 11:26 AM EDT Osorio CARR CHEMISTRY ORDERABLES Performing Organization Address City/[facility]/ZIP Co de Phone Number [facility] [place] [address] * Blue Tube HOLD (11/19/2023 11:15 AM EDT) Blue Hold Sample in lab. [facility] Blood Venous Draw / Unknown 11/19/2023 11:15 AM EDT 11/19/2023 11:26 AM EDT Osorio CARR HEMATOLOGY ORDERABLE S [facility] [place] [address] * (ABNORMAL) Differential, Automated (11/19/2023 11:15 AM EDT) Neutrophil % 74.6 % [facility] Neutrophil Absolute 11.11(H) 1.70 - 6.10 x10(3)/[facility] Lymph % 16.8 % [facility] Lymphocytes Abs 2.5 0.9 - 3.2 x10(3)/[facility] Monocyte % 7.0 % [facility] Monocyte Abs 1.0(H) 0.3 - 0.9 x10(3)/[facility] Eos % 0.9 % [facility] Eosinophils Abs 0.1 0.0 - 0.4 x10(3)/[facility] Basophil % 0.3 % [facility] Baso Absolute 0.0 0.0 - 0.1 x10(3)/[facility] Immature Gran % 0.40 % [facility] Comment: Immature granulocytes(IG's)percentage and absolute count will include metamyelocytes, myelocytes, and promyelocytes. Blood smears from CBCs yielding IG's will be scanned manually for concordance. If this scan disagrees with the automated IG or if promyelocytes are noted, a manual differential will be performed. Immature Gran Absolute 0.06(H) 0.00 - 0.04 x10(3)/[facility] Blood 11/19/2023 11:1 5 AM EDT 11/19/2023 11:25 AM EDT Narrative Resulting Agency Comment Spec In Lab Osorio CARR HEMATOLOGY ORDERABLE S [facility] [place] [address] * (ABNORMAL) Hemogram (11/19/2023 11:15 AM EDT) White Blood Cell 14.9(H) 4.0 - 9.5 x10(3)/[facility]AT[facility] Red Blood Cell 4.03 4.00 - 5.21 x10(6)/[facility] Hemoglobin 12.8 11.7 - 15.5 g/dL [facility] Hematocrit 38.7 35.7 - 45.8 % [facility] Mean Cell Volume 96.0(H) 82.6 - 94.4 fL [facility] Mean Cell Hemoglobin 31.8 27.1 - 32.0 pg [facility] Mean Cell Hemoglobin Concentration 33.1 31.7 - 35.0 g/dL [facility] Platelet 326 145 - 357 x10(3)/mc L [facility] RDW Standard Deviation 44.2 37.0 - 46.0 fL [facility] RDW coefficient of variation 12.5 11.5 - 14.1 % [facility] Mean Platelet Volume 10.0 7.6 - 12.9 fL [facility] NRBC% auto 0.0 % [facility] NRBC Absolute 0.000 0.000 - 0.000 x10(3)/mc L [facility] Blood 11/19/2023 11:1 5 AM EDT 11/19/2023 11:25 AM EDT Narrative Resulting Agency Comment Spec In Lab Osorio CARR HEMATOLOGY ORDERABLE S [facility] [place] [address] * (ABNORMAL) Basic Metabolic Panel (non-fasting) (11/19/2023 11:15 AM EDT) Glucose 140 65 - 199 mg/dL [facility] Comment:Diabetes: >=200 mg/d L plus symptoms Blood Urea Nitrogen 18 8 - 18 mg/dL [facility] Creatinine 0.90 0.70 - 1.20 mg/dL [facility] Sodium 143 135 - 145 mmol/L [facility] Potassium 3.8 3.5 - 5.0 mmol/L [facility] Comment: Please note: ??Patients with WBC >100,000 may have falsely elevated Potassium levels. ??For accurate Potassium quantification in these patients send serum separator tube (gold top) for subsequent determinations. ??Contact the Clinical Chemistry Laboratory if there are any questions. Chloride 111(H) 98 - 107 mmol/L [facility] Carbon Dioxide 20(L) 22 - 31 mmol/L [facility] Anion Gap 12 5 - 15 mmol/L [facility] Calcium 9.5 8.5 - 10.5 mg/dL [facility] Est Glomerular Filtration Rate 75 >=60 mL/min/1. 73 m?? [facility] Comment: This patient's estimated GFR was [...] and symptoms in addition to eGFR. Blood 11/19/2023 11:1 5 AM EDT 11/19/2023 11:25 AM EDT Narrative Resulting Agency Comment Spec In Lab Titus South MD CHEMISTRY ORDERAB LES Performing Organization Address City/State/[facility] Co de Phone Number [facility] [place] [address] documented in this encounter Visit Diagnoses Diagnosis Osteomyelitis of anterior right mandible- Primary Unspecified osteomyelitis, site unspecified Hypertension, unspecified type Osteomyelitis, jaw acute Inflammatory conditions of jaw Osteomyelitis, unspecified site, unspecified type LORRI on CPAP Obstructive sleep apnea (adult) (pediatric) Gastroesophageal reflux Esophageal reflux Hypertension Unspecified essential hypertension Type 2 diabetes mellitus without complication, with long-term current use of insulin Chronic pain Other chronic pain Hot flashes Symptomatic menopausal or female climacteric states documented in this encounter Admitting Diagnoses Diagnosis Osteomyelitis Unspecified osteomyelitis, site unspecified documented in this encounter Administered Medications Inactive Administered Medications - up to 3 most recent administrations Medication Order MAR Action Action Date Dose Rate Site acetaminophen (Tylenol) tablet 975 mg 975 mg (rounded from 1,000 mg), Oral, EVERY 8 HOURS SCHEDULED, First dose on Thu11/19/23 at 2200, Until Discontinued, Routine Given 11/21/2023 5:33 AM EDT 975 mg Given 11/20/2023 9:47 PM EDT 975 mg Given 11/20/2023 2:16 PM EDT 975 mg baclofen (Lioresal) tablet 10 mg 10 mg, Oral, 3 TIMES DAILY PRN, Starting on Gloria 11/19/23 at 2101, Until 11/21/23 at 1611, Muscle spasms, Routine Given 11/21/2023 7:34 AM EDT 10 mg Given 11/19/2023 9:41 PM EDT 10 mg bisacodyL (Dulcolax) suppository 10 mg 10 mg, Rectal, DAILY PRN, Starting on Gloria 11/19/23 at 1937, Until 11/21/23 at 1611, Constipation, Give if no BM within last 24 hr and rectal fullness is reported or assessed. Give concomitantly with any scheduled bowel medications ordered. , Routine bisacodyl EC (Dulcolax) tablet 10 mg 10 mg, Oral, 2 TIMES DAILY PRN, Starting on Gloria 11/19/23 at 1937, Until 11/21/23 at 1611, Constipation, Give if no BM after 24 hr after prior interventions. BM expected in 6-8 hours. If BM desired sooner, use next ordered agent. Give concomitantly with any scheduled bowel medications ordered., Routine cloNIDine (Catapres) tablet 0.05 mg 0.05 mg, Oral, DAILY, First dose on Thu11/20/23 at 0900, Until Discontinued, HOLD for SBP <120, Routine Given 11/21/2023 8:27 AM EDT 0.05 mg Given 11/20/2023 8:37 AM EDT 0.05 mg dextrose 10% infusion 250 mL, at 1,000 mL/hr, Intravenous, EVERY 15 MIN PRN, Starting on Gloria 11/19/23 at 1937, Until 11/21/23 at 1611, For BG 50-70 mg/dL: Oral treatment preferred: If able to drink, give 120 mL juice or regular (not diet) soda OR if NPO, give 15 gram glucose 40% oral gel massaged into buccal mucosa OR if unconscious or uncooperative, give 25 gram (250 mL) dextrose 10% IV over 15 minutes per protocol OR, if no IV access, 1 mg glucagon IM. For BG less than 50 mg/dL: Oral treatment preferred: If able to drink, give 240 mL juice or regular (not diet) soda OR if NPO, give 30 gram glucose 40% oral gel massaged in buccal mucosa OR if unconscious or uncooperative, give 25 gram (250 mL) dextrose 10% IV over 15 minutes per protocol OR, if no IV access, 1 mg glucagon IM. Recheck BG in 15 minutes. May repeat juice/soda, gel, dextrose or glucagon once per episode. Notify provider if hypoglycemia does not resolve after two treatments. Providers should consider the following: administering longer-acting treatments for the duration of active insulin or hypoglycemia agent for persistent hypoglycemia and re-evaluating active insulin orders before administering the next dose. doxepin (SINEquan) capsule 10 mg 10 mg, Oral, NIGHTLY, First dose on Thu11/19/23 at 2200, Until Discontinued, Routine Given 11/20/2023 9:47 PM EDT 10 mg Given 11/19/2023 9:46 PM EDT 10 mg enoxaparin (Lovenox) (40 mg/0.4 mL) subcutaneous injection 40 mg 40 mg, Subcutaneous, NIGHTLY, First dose on Thu11/19/23 at 2100, Until Discontinued, Routine Given 11/20/2023 9:47 PM EDT 40 mg Given 11/19/2023 9:33 PM EDT 40 mg ezetimibe (Zetia) tablet 10 mg 10 mg, Oral, DAILY, First dose on Thu11/20/23 at 0900, Until Discontinued, Routine Given 11/21/2023 8:27 AM EDT 10 mg Given 11/20/2023 8:36 AM EDT 10 mg famotidine (Pepcid) tablet 20 mg 20 mg, Oral, NIGHTLY, First dose on Thu11/19/23 at 2100, Until Discontinued, Routine Given 11/20/2023 9:47 PM EDT 20 mg glucagon (Glucagen) (1 mg/mL) injection solution 1 mg 1 mg, Intramuscular, EVERY 15 MIN PRN, Starting on Thu11/19/23 at 1937, Until 11/21/23 at 1611, Low blood sugar, For BG 50-70 mg/dL: Oral treatment preferred: If able to drink, give 120 mL juice or regular (not diet) soda OR if NPO, give 15 gram glucose 40% oral gel massaged into buccal mucosa OR if unconscious or uncooperative, give 25 gram (250 mL) dextrose 10% IV over 15 minutes per protocol OR, if no IV access, 1 mg glucagon IM. For BG less than 50 mg/dL: Oral treatment preferred: If able to drink, give 240 mL juice or regular (not diet) soda OR if NPO, give 30 gram glucose 40% oral gel massaged in buccal mucosa OR if unconscious or uncooperative, give 25 gram (250 mL) dextrose 10% IV over 15 minutes per protocol OR, if no IV access, 1 mg glucagon IM. Recheck BG in 15 minutes. May repeat juice/soda, gel, dextrose or glucagon once per episode. Notify provider if hypoglycemia does not resolve after two treatments. Providers should consider the following: administering longer-acting treatments for the duration of active insulin or hypoglycemia agent for persistent hypoglycemia and re-evaluating active insulin orders before administering the next dose. , Routine glucose (Glutose) 40% oral geL 15-30 g of glucose, Buccal, EVERY 15 MIN PRN, Starting on Gloria 11/19/23 at 1937, Until 11/21/23 at 1611, Low blood sugar, For BG 50-70 mg/dL: Oral treatment preferred: If able to drink, give 120 mL juice or regular (not diet) soda OR if NPO, give 15 gram glucose 40% oral gel massaged into buccal mucosa OR if unconscious or uncooperative, give 25 gram (250 mL) dextrose 10% IV over 15 minutes per protocol OR, if no IV access, 1 mg glucagon IM. For BG less than 50 mg/dL: Oral treatment preferred: If able to drink, give 240 mL juice or regular (not diet) soda OR if NPO, give 30 gram glucose 40% oral gel massaged in buccal mucosa OR if unconscious or uncooperative, give 25 gram (250 mL) dextrose 10% IV over 15 minutes per protocol OR, if no IV access, 1 mg glucagon IM. Recheck BG in 15 minutes. May repeat juice/soda, gel, dextrose or glucagon once per episode. Notify provider if hypoglycemia does not resolve after two treatments. Providers should consider the following: administering longer-acting treatments for the duration of active insulin or hypoglycemia agent for persistent hypoglycemia and re-evaluating active insulin orders before administering the next dose. 1 tube of Glutose-15 contains 15 grams of glucose (net weight of tube = 37.5 grams.), Routine insulin lispro (HumaLOG;Admelog) (100 unit/mL) subcutaneous injection vial 0-10 Units 0-10 Units, Subcutaneous, 3 TIMES DAILY WITH MEALS, First dose on Thu11/20/23 at 0800, Until Discontinued, [employer] Give 1 unit for every 10 grams carbohydrate. Hold if not eating or if BG less than 70 mg/dL. , Routine Given 11/21/2023 7:34 AM EDT 6 Units insulin lispro (HumaLOG;Admelog) (100 unit/mL) subcutaneous injection vial 1-4 Units 1-4 Units, Subcutaneous, 3 TIMES DAILY BEFORE MEALS, First dose on Thu11/20/23 at 0730, Until Discontinued, CORRECTION BOLUS [1-4 Units] Sensitive Sliding Scale (BG in mg/dL): Correction factor 40 (1 unit of insulin is expected to drop the glucose 40 mg/dL) ?? BG 160 - 200 Give 1 unit BG 201 - 240 Give 2 units BG 241 - 280 Give 3 units and recheck BG in 2 hours. BG greater than 280, give 4 units and recheck BG in 2 hours. - If recheck BG is LESS than 280, give no insulin and resume schedule - If recheck BG is GREATER than or EQUAL to 280, give 4 units and repeat BG in 2 hours & call for new insulin orders. DO NOT hold if NPO, unless specifically told to do so. ?? Per Inpatient Subcutaneous Insulin Policy, recheck a BG of greater than 240 mg/dL in 2 hours., Routine Given 11/20/2023 4:48 PM EDT 3 Units iohexoL (Omnipaque) (350 mg/mL) solution 0-200 mL 0-200 mL, Intravenous, ONCE PRN, 1 dose, Starting on Gloria 11/19/23 at 1224, Until Thu11/19/23 at 1228, Per Protocol, Warning Vesicant/Irritant Medication , Radiology Contrast, Routine Given 11/19/2023 12:28 PM EDT 110 mLs ketorolac (Toradol) (15 mg/mL) injection 15 mg 15 mg, Intravenous, EVERY 6 HOURS PRN, Starting on Gloria 11/19/23 at 1937, Until 11/21/23 at 1611, Pain, Severe pain not controlled by oral medications, or if patient unable to take oral medications, Routine Given 11/21/2023 7:34 AM EDT 15 mg ketorolac (Toradol) (15 mg/mL) injection 30 mg 30 mg, Intravenous, ONCE, 1 dose, On Gloria 11/19/23 at 1418, STAT Given 11/19/2023 2:53 PM EDT 30 mg lactulose (Chronulac) (0.67 gram/mL) oral liquid 20 g 20 g, Oral, DAILY PRN, Starting on Gloria 11/19/23 at 1937, Until 11/21/23 at 1611, Constipation, Give if no BM 24 hr after prior interventions or if BM is desired within 2 hr. Give concomitantly with any scheduled bowel medications ordered, Routine lactulose (Chronulac) (0.67 gram/mL) oral liquid 20 g 20 g, Oral, DAILY PRN, Starting on Gloria 11/19/23 at 1937, Until 11/21/23 at 1611, Constipation, Give an additional (2nd) dose of lactulose 2 hr after 1st dose if still no BM. Disregard if 1st dose of lactulose not ordered. Give concomitantly with any scheduled bowel medications ordered. , Routine loperamide (Imodium A-D) capsule 2 mg 2 mg, Oral, 4 TIMES DAILY PRN, Starting on 11/21/23 at 0931, Until 11/21/23 at 1611, Diarrhea, Do not exceed 16 mg/day., Routine Given 11/21/2023 11:59 AM EDT 2 mg losartan (Cozaar) tablet 100 mg 100 mg, Oral, DAILY, First dose on Thu11/20/23 at 0900, Until Discontinued, HOLD for SBP < 120, Routine Given 11/21/2023 8:27 AM EDT 100 mg Given 11/20/2023 8:36 AM EDT 100 mg magnesium citrate oral liquid 296 mL 296 mL, Oral, ONCE PRN, 1 dose, Starting on Gloria 11/19/23 at 1937, Until 11/21/23 at 1611, Constipation, Give if no BM 2 hr after previous interventions. If 2 hr after mag citrate there is still no BM, see order for tap water enema, if placed. Give concomitantly with any scheduled bowel medications ordered., Routine montelukast (Singulair) tablet 10 mg 10 mg, Oral, DAILY, First dose on Thu11/20/23 at 0900, Until Discontinued, Routine Given 11/21/2023 8:27 AM EDT 10 mg Given 11/20/2023 8:36 AM EDT 10 mg morphine IR (MS IR) tablet 7.5 mg 7.5 mg, Oral, EVERY 4 HOURS PRN, Starting on Thu11/19/23 at 1937, Until 11/21/23 at 1611, Pain, Routine Given 11/21/2023 5:34 AM EDT 7.5 mg Given 11/20/2023 11:41 PM EDT 7.5 mg Given 11/20/2023 6:59 PM EDT 7.5 mg pantoprazole EC (Protonix) tablet 40 mg 40 mg, Oral, DAILY BEFORE BREAKFAST, First dose on Thu11/20/23 at 0800, Until Discontinued, DO NOT CRUSH OR OPEN Given 11/21/2023 7:34 AM EDT 40 mg Given 11/20/2023 8:36 AM EDT 40 mg piperacillin-tazobactam (Zosyn) 3.375 g vial attach to sodium chloride 0.9% 50 mL Mini-Bag Plus 3.375 g, Intravenous, EVERY 8 HOURS SCHEDULED, First dose on Thu11/19/23 at 2200, Until Discontinued, Administer over 4 Hours, Warning Vesicant/Irritant Medication Per specialties operator labeling, do not administer or Y-site with lactated ringers., Indication for (Active or Suspected): Bone/Joint New Bag 11/21/2023 5:34 AM EDT 3.375 g 12.5 mL/hr New Bag 11/20/2023 9:48 PM EDT 3.375 g 12.5 mL/hr New Bag 11/20/2023 2:16 PM EDT 3.375 g 12.5 mL/hr piperacillin-tazobactam (Zosyn) 4.5 g vial attach to sodium chloride 0.9% 100 mL Mini-Bag Plus 4.5 g, Intravenous, ONCE, 1 dose, On Gloria 11/19/23 at 1418, Administer over 0.5 Hours, Warning Vesicant/Irritant Medication Per specialties operator labeling, do not administer or Y-site with lactated ringers., Indication for (Active or Suspected): Bone/Joint New Bag 11/19/2023 2:53 PM EDT 4.5 g 200 mL/h r polyethylene glycoL (Miralax) packet 17 g 17 g, Oral, DAILY PRN, Starting on Gloria 11/19/23 at 1937, Until 11/21/23 at 1611, Constipation, Give if no BM within last 24 hr. Give concomitantly with any scheduled bowel medications ordered. , Routine pravastatin (Pravachol) tablet 40 mg 40 mg, Oral, EVERY EVENING, First dose on Thu11/20/23 at 1700, Until Discontinued Given 11/20/2023 4:43 PM EDT 40 mg sodium chloride 0.9 % (flush) (BD PosiFlush Normal Saline 0.9) flush 5 mL 5 mL, Intravenous, 2 TIMES DAILY, First dose on Gloria 11/19/23 at 2100, Until Discontinued, Routine Given 11/21/2023 10:46 AM EDT 5 mLs Given 11/20/2023 9:48 PM EDT 5 mLs Given 11/20/2023 11:33 AM EDT 5 mLs documented in this encounter Active and Recently Administered Medications Times are shown in EDT. Scheduled Medication Order 11/19/2023 11/20/2023 11/21/2023 acetaminophen (Tylenol) tablet 975 mg 975 mg (rounded from 1,000 mg), Oral, EVERY 8 HOURS SCHEDULED, First dose on Gloria 11/19/23 at 2200, Until Discontinued, Routine 2132 (Given - Provider: Cammie Jim RN) 0501 (Given - Provider: Chen Hickman LPN)1416 (Given - Provider: Rach Alcantara LPN)2147 (Given - Provider: Paulino Li RN) 0533 (Given - Provider: Paulino Li RN)1400 (Due) cloNIDine (Catapres) tablet 0.05 mg 0.05 mg, Oral, DAILY, First dose on Thu11/20/23 at 0900, Until Discontinued, HOLD for SBP <120, Routine 0837 (Given - Provider: Rach Alcantara LPN) 826 (Given - Provider: Jamee Chi, JULI) doxepin (SINEquan) capsule 10 mg 10 mg, Oral, NIGHTLY, First dose on Thu11/19/23 at 2200, Until Discontinued, Routine 2145 (Given - Provider: Cammie Jim RN) 2146 (Given - Provider: Paulino Li RN) enoxaparin (Lovenox) (40 mg/0.4 mL) subcutaneous injection 40 mg 40 mg, Subcutaneous, NIGHTLY, First dose on Thu11/19/23 at 2100, Until Discontinued, Routine 2132 (Given - Provider: Cammie Jim RN) 2146 (Given - Provider: Paulino Li RN) ezetimibe (Zetia) tablet 10 mg 10 mg, Oral, DAILY, First dose on Thu11/20/23 at 0900, Until Discontinued, Routine 0836 (Given - Provider: Rach Alcantara LPN) 826 (Given - Provider: Jamee Chi, JULI) famotidine (Pepcid) tablet 20 mg 20 mg, Oral, NIGHTLY, First dose on Thu11/19/23 at 2100, Until Discontinued, Routine 2099 (Not Given - Provider: Riddhi Babcock RN - Reason: Patient/family refused) 2146 (Given - Provider: Paulino Li RN) insulin lispro (HumaLOG;Admelog) (100 unit/mL) subcutaneous injection vial 0-10 Units 0-10 Units, Subcutaneous, 3 TIMES DAILY WITH MEALS, First dose on Thu11/20/23 at 0800, Until Discontinued, MEAL ASSOCIATED Give 1 unit for every 10 grams carbohydrate. Hold if not eating or if BG less than 70 mg/dL. , Routine 0800 (Not Given - Provider: Rach Alcantara LPN - Reason: Patient/family refused)1200 (Not Given - Provider: Rach Alcantara LPN - Reason: Patient/family refused)1700 (Not Given - Provider: Rach Alcantara LPN - Reason: See comment) 0734 (Given - Provider: Jamee Chi RN)1200 (Not Given - Provider: Jamee Chi RN - Reason: Patient/family refused - Comment: MD aware) insulin lispro (HumaLOG;Admelog) (100 unit/mL) subcutaneous injection vial 1-4 Units(Linked Group 1) 1-4 Units, Subcutaneous, 3 TIMES DAILY BEFORE MEALS, First dose on Thu11/20/23 at 0730, Until Discontinued, CORRECTION BOLUS [1-4 Units] Sensitive Sliding Scale (BG in mg/dL): Correction factor 40 (1 unit of insulin is expected to drop the glucose 40 mg/dL) ?? BG 160 - 200 Give 1 unit BG 201 - 240 Give 2 units BG 241 - 280 Give 3 units and recheck BG in 2 hours. BG greater than 280, give 4 units and recheck BG in 2 hours. - If recheck BG is LESS than 280, give no insulin and resume schedule - If recheck BG is GREATER than or EQUAL to 280, give 4 units and repeat BG in 2 hours & call for new insulin orders. DO NOT hold if NPO, unless specifically told to do so. ?? Per Inpatient Subcutaneous Insulin Policy, recheck a BG of greater than 240 mg/dL in 2 hours., Routine 0730 (Not Given - Provider: Chen Hickman LPN - Reason: Order parameters not met - Comment: bg 100)1130 (Not Given - Provider: Rach Alcantara LPN - Reason: Order parameters not met)1648 (Given - Provider: Rach Alcantara LPN - Comment: 262) 0730 (Not Given - Provider: Paulino Li RN - Reason: Order parameters not met - Comment: bg 120)1130 (Not Given - Provider: Jamee Chi RN - Reason: Order parameters not met) ketorolac (Toradol) (15 mg/mL) injection 30 mg (COMPLETED) 30 mg, Intravenous, ONCE, 1 dose, On Gloria 11/19/23 at 1418, STAT 1453 (Given - Provider: Renee Saunders LPN) losartan (Cozaar) tablet 100 mg 100 mg, Oral, DAILY, First dose on Thu11/20/23 at 0900, Until Discontinued, HOLD for SBP < 120, Routine 0836 (Given - Provider: Rach Alcantara LPN) 0827 (Given - Provider: Jamee Chi, JULI) montelukast (Singulair) tablet 10 mg 10 mg, Oral, DAILY, First dose on Thu11/20/23 at 0900, Until Discontinued, Routine 0836 (Given - Provider: Rach Alcantara LPN) 0827 (Given - Provider: Jamee Chi, JULI) pantoprazole EC (Protonix) tablet 40 mg 40 mg, Oral, DAILY BEFORE BREAKFAST, First dose on Thu11/20/23 at 0800, Until Discontinued, DO NOT CRUSH OR OPEN 0836 (Given - Provider: Rach Alcantara LPN) 0734 (Given - Provider: Jamee Chi, JULI) piperacillin-tazobactam (Zosyn) 3.375 g vial attach to sodium chloride 0.9% 50 mL Mini-Bag Plus 3.375 g, Intravenous, EVERY 8 HOURS SCHEDULED, First dose on Thu11/19/23 at 2200, Until Discontinued, Administer over 4 Hours, Warning Vesicant/Irritant Medication Per specialties operator labeling, do not administer or Y-site with lactated ringers., Indication for (Active or Suspected): Bone/Joint 2134 (New Bag - Provider: Cammie Jim RN) 0108 (Stopped - Provider: Riddhi Babcock RN)0500 (New Bag - Provider: Chen Hickman LPN)0900 (Stopped - Provider: Slime Gilliam RN)1416 (New Bag - Provider: Rach Alcantara LPN)1816 (Stopped - Provider: Rach Alcantara LPN)2148 (New Bag - Provider: Paulino Li RN) 0148 (Stopped - Provider: Paulino Li RN)0534 (New Bag - Provider: Paulino Li RN)0934 (Stopped - Provider: Jamee Chi RN)1400 (Due) piperacillin-tazobactam (Zosyn) 4.5 g vial attach to sodium chloride 0.9% 100 mL Mini-Bag Plus (COMPLETED) 4.5 g, Intravenous, ONCE, 1 dose, On Thu11/19/23 at 1418, Administer over 0.5 Hours, Warning Vesicant/Irritant Medication Per specialties operator labeling, do not administer or Y-site with lactated ringers., Indication for (Active or Suspected): Bone/Joint 1453 (New Bag - Provider: Renee Sanuders LPN)1523 (Stopped - Provider: Riddhi Babcock RN) pravastatin (Pravachol) tablet 40 mg 40 mg, Oral, EVERY EVENING, First dose on Thu11/20/23 at 1700, Until Discontinued 1643 (Given - Provider: Rach Alcantara LPN) sodium chloride 0.9 % (flush) (BD PosiFlush Normal Saline 0.9) flush 5 mL 5 mL, Intravenous, 2 TIMES DAILY, First dose on Thu11/19/23 at 2100, Until Discontinued, Routine 2100 (Given - Provider: Cammie Jim RN) 1133 (Given - Provider: Rach Alcantara LPN)214 (Given - Provider: Paulino Li RN) 1046 (Given - Provider: Jamee Chi, JULI) PRN Medication Order 11/19/2023 11/20/2023 11/21/2023 baclofen (Lioresal) tablet 10 mg 10 mg, Oral, 3 TIMES DAILY PRN, Starting on Gloria 11/19/23 at 2101, Until 11/21/23 at 1611, Muscle spasms, Routine 2140 (Given - Provider: Cammie Jim RN) 0734 (Given - Provider: Jamee Chi, JULI) bisacodyL (Dulcolax) suppository 10 mg(Linked Group 2) 10 mg, Rectal, DAILY PRN, Starting on Gloria 11/19/23 at 1937, Until 11/21/23 at 1611, Constipation, Give if no BM within last 24 hr and rectal fullness is reported or assessed. Give concomitantly with any scheduled bowel medications ordered. , Routine bisacodyl EC (Dulcolax) tablet 10 mg(Linked Group 2) 10 mg, Oral, 2 TIMES DAILY PRN, Starting on Gloria 11/19/23 at 1937, Until 11/21/23 at 1611, Constipation, Give if no BM after 24 hr after prior interventions. BM expected in 6-8 hours. If BM desired sooner, use next ordered agent. Give concomitantly with any scheduled bowel medications ordered., Routine dextrose 10% infusion(Linked Group 3) 250 mL, at 1,000 mL/hr, Intravenous, EVERY 15 MIN PRN, Starting on Gloria 11/19/23 at 1937, Until 11/21/23 at 1611, For BG 50-70 mg/dL: Oral treatment preferred: If able to drink, give 120 mL juice or regular (not diet) soda OR if NPO, give 15 gram glucose 40% oral gel massaged into buccal mucosa OR if unconscious or uncooperative, give 25 gram (250 mL) dextrose 10% IV over 15 minutes per protocol OR, if no IV access, 1 mg glucagon IM. For BG less than 50 mg/dL: Oral treatment preferred: If able to drink, give 240 mL juice or regular (not diet) soda OR if NPO, give 30 gram glucose 40% oral gel massaged in buccal mucosa OR if unconscious or uncooperative, give 25 gram (250 mL) dextrose 10% IV over 15 minutes per protocol OR, if no IV access, 1 mg glucagon IM. Recheck BG in 15 minutes. May repeat juice/soda, gel, dextrose or glucagon once per episode. Notify provider if hypoglycemia does not resolve after two treatments. Providers should consider the following: administering longer-acting treatments for the duration of active insulin or hypoglycemia agent for persistent hypoglycemia and re-evaluating active insulin orders before administering the next dose. glucagon (Glucagen) (1 mg/mL) injection solution 1 mg(Linked Group 3) 1 mg, Intramuscular, EVERY 15 MIN PRN, Starting on Gloria 11/19/23 at 1937, Until 11/21/23 at 1611, Low blood sugar, For BG 50-70 mg/dL: Oral treatment preferred: If able to drink, give 120 mL juice or regular (not diet) soda OR if NPO, give 15 gram glucose 40% oral gel massaged into buccal mucosa OR if unconscious or uncooperative, give 25 gram (250 mL) dextrose 10% IV over 15 minutes per protocol OR, if no IV access, 1 mg glucagon IM. For BG less than 50 mg/dL: Oral treatment preferred: If able to drink, give 240 mL juice or regular (not diet) soda OR if NPO, give 30 gram glucose 40% oral gel massaged in buccal mucosa OR if unconscious or uncooperative, give 25 gram (250 mL) dextrose 10% IV over 15 minutes per protocol OR, if no IV access, 1 mg glucagon IM. Recheck BG in 15 minutes. May repeat juice/soda, gel, dextrose or glucagon once per episode. Notify provider if hypoglycemia does not resolve after two treatments. Providers should consider the following: administering longer-acting treatments for the duration of active insulin or hypoglycemia agent for persistent hypoglycemia and re-evaluating active insulin orders before administering the next dose. , Routine glucose (Glutose) 40% oral geL(Linked Group 3) 15-30 g of glucose, Buccal, EVERY 15 MIN PRN, Starting on Gloria 11/19/23 at 1937, Until 11/21/23 at 1611, Low blood sugar, For BG 50-70 mg/dL: Oral treatment preferred: If able to drink, give 120 mL juice or regular (not diet) soda OR if NPO, give 15 gram glucose 40% oral gel massaged into buccal mucosa OR if unconscious or uncooperative, give 25 gram (250 mL) dextrose 10% IV over 15 minutes per protocol OR, if no IV access, 1 mg glucagon IM. For BG less than 50 mg/dL: Oral treatment preferred: If able to drink, give 240 mL juice or regular (not diet) soda OR if NPO, give 30 gram glucose 40% oral gel massaged in buccal mucosa OR if unconscious or uncooperative, give 25 gram (250 mL) dextrose 10% IV over 15 minutes per protocol OR, if no IV access, 1 mg glucagon IM. Recheck BG in 15 minutes. May repeat juice/soda, gel, dextrose or glucagon once per episode. Notify provider if hypoglycemia does not resolve after two treatments. Providers should consider the following: administering longer-acting treatments for the duration of active insulin or hypoglycemia agent for persistent hypoglycemia and re-evaluating active insulin orders before administering the next dose. 1 tube of Glutose-15 contains 15 grams of glucose (net weight of tube = 37.5 grams.), Routine iohexoL (Omnipaque) (350 mg/mL) solution 0-200 mL (COMPLETED) 0-200 mL, Intravenous, ONCE PRN, 1 dose, Starting on Gloria 11/19/23 at 1224, Until Gloria 11/19/23 at 1228, Per Protocol, Warning Vesicant/Irritant Medication , Radiology Contrast, Routine 1228 (Given - Provider: Mar Dimas) ketorolac (Toradol) (15 mg/mL) injection 15 mg 15 mg, Intravenous, EVERY 6 HOURS PRN, Starting on Gloria 11/19/23 at 1937, Until 11/21/23 at 1611, Pain, Severe pain not controlled by oral medications, or if patient unable to take oral medications, Routine 0734 (Given - Provider: Jamee Chi, JULI) lactulose (Chronulac) (0.67 gram/mL) oral liquid 20 g(Linked Group 2) 20 g, Oral, DAILY PRN, Starting on Gloria 11/19/23 at 1937, Until 11/21/23 at 1611, Constipation, Give if no BM 24 hr after prior interventions or if BM is desired within 2 hr. Give concomitantly with any scheduled bowel medications ordered, Routine lactulose (Chronulac) (0.67 gram/mL) oral liquid 20 g(Linked Group 2) 20 g, Oral, DAILY PRN, Starting on Gloria 11/19/23 at 1937, Until 11/21/23 at 1611, Constipation, Give an additional (2nd) dose of lactulose 2 hr after 1st dose if still no BM. Disregard if 1st dose of lactulose not ordered. Give concomitantly with any scheduled bowel medications ordered. , Routine lidocaine (Xylocaine) 1% (10 mg/mL) injection 3 mg 3 mg (0.3 mL), Subcutaneous, ONCE PRN, 1 dose, Starting on Gloria 11/19/23 at 1937, Until 11/21/23 at 1611, for discomfort with PIV insertion, Routine loperamide (Imodium A-D) capsule 2 mg 2 mg, Oral, 4 TIMES DAILY PRN, Starting on 11/21/23 at 0931, Until 11/21/23 at 1611, Diarrhea, Do not exceed 16 mg/day., Routine 1159 (Given - Provider: Jamee Chi, JULI) magnesium citrate oral liquid 296 mL(Linked Group 2) 296 mL, Oral, ONCE PRN, 1 dose, Starting on Gloria 11/19/23 at 1937, Until 11/21/23 at 1611, Constipation, Give if no BM 2 hr after previous interventions. If 2 hr after mag citrate there is still no BM, see order for tap water enema, if placed. Give concomitantly with any scheduled bowel medications ordered., Routine morphine IR (MS IR) tablet 7.5 mg 7.5 mg, Oral, EVERY 4 HOURS PRN, Starting on Gloria 11/19/23 at 1937, Until 11/21/23 at 1611, Pain, Routine 2132 (Given - Provider: Cammie Jim RN) 032 (Given - Provider: Chen Hickman LPN)1859 (Given - Provider: Rach Alcantara LPN)2341 (Given - Provider: Paulino Li RN) 0534 (Given - Provider: Paulino Li RN) polyethylene glycoL (Miralax) packet 17 g(Linked Group 2) 17 g, Oral, DAILY PRN, Starting on Gloria 11/19/23 at 1937, Until 11/21/23 at 1611, Constipation, Give if no BM within last 24 hr. Give concomitantly with any scheduled bowel medications ordered. , Routine sodium chloride 0.9 % (flush) (BD PosiFlush Normal Saline 0.9) flush 5-20 mL 5-20 mL, Intravenous, EVERY 1 MIN PRN, Starting on Gloria 11/19/23 at 1937, Until 11/21/23 at 1611, flush, Flush pertains to all indwelling lines. Flush per protocol found in the job aid using the link provided on this medication record., Routine zolpidem (Ambien) tablet 10 mg 10 mg, Oral, NIGHTLY PRN, Starting on Gloria 11/19/23 at 1937, Until 11/21/23 at 1611, Sleep, Routine Linked Groups Order Group 1: POCT Fingerstick Glucose (CANCELED) Routine, 4 TIMES DAILY BEFORE MEALS & AT BEDTIME, First occurrence on Gloria 11/19/23 at 2200, Until Specified, Consider choosing FOUR TIMES A DAY BEFORE MEALS AND AT BEDTIME as frequency for: Patients who have good hypoglycemia awareness: -Patients who are eating meals during the day and sleeping at night -Patients who are otherwise stable And insulin lispro (HumaLOG;Admelog) (100 unit/mL) subcutaneous injection vial 1-4 UnitsJump to med 1-4 Units, Subcutaneous, 3 TIMES DAILY BEFORE MEALS, First dose on Thu11/20/23 at 0730, Until Discontinued, CORRECTION BOLUS [1-4 Units] Sensitive Sliding Scale (BG in mg/dL): Correction factor 40 (1 unit of insulin is expected to drop the glucose 40 mg/dL) ?? BG 160 - 200 Give 1 unit BG 201 - 240 Give 2 units BG 241 - 280 Give 3 units and recheck BG in 2 hours. BG greater than 280, give 4 units and recheck BG in 2 hours. - If recheck BG is LESS than 280, give no insulin and resume schedule - If recheck BG is GREATER than or EQUAL to 280, give 4 units and repeat BG in 2 hours & call for new insulin orders. DO NOT hold if NPO, unless specifically told to do so. ?? Per Inpatient Subcutaneous Insulin Policy, recheck a BG of greater than 240 mg/dL in 2 hours., Routine Group 2: polyethylene glycoL (Miralax) packet 17 gJump to med 17 g, Oral, DAILY PRN, Starting on Gloria 11/19/23 at 1937, Until 11/21/23 at 1611, Constipation, Give if no BM within last 24 hr. Give concomitantly with any scheduled bowel medications ordered. , Routine And bisacodyL (Dulcolax) suppository 10 mgJump to med 10 mg, Rectal, DAILY PRN, Starting on Gloria 11/19/23 at 1937, Until 11/21/23 at 1611, Constipation, Give if no BM within last 24 hr and rectal fullness is reported or assessed. Give concomitantly with any scheduled bowel medications ordered. , Routine And bisacodyl EC (Dulcolax) tablet 10 mgJump to med 10 mg, Oral, 2 TIMES DAILY PRN, Starting on Gloria 11/19/23 at 1937, Until 11/21/23 at 1611, Constipation, Give if no BM after 24 hr after prior interventions. BM expected in 6-8 hours. If BM desired sooner, use next ordered agent. Give concomitantly with any scheduled bowel medications ordered., Routine And lactulose (Chronulac) (0.67 gram/mL) oral liquid 20 gJump to med 20 g, Oral, DAILY PRN, Starting on Gloria 11/19/23 at 1937, Until 11/21/23 at 1611, Constipation, Give if no BM 24 hr after prior interventions or if BM is desired within 2 hr. Give concomitantly with any scheduled bowel medications ordered, Routine And lactulose (Chronulac) (0.67 gram/mL) oral liquid 20 gJump to med 20 g, Oral, DAILY PRN, Starting on Gloria 11/19/23 at 1937, Until 11/21/23 at 1611, Constipation, Give an additional (2nd) dose of lactulose 2 hr after 1st dose if still no BM. Disregard if 1st dose of lactulose not ordered. Give concomitantly with any scheduled bowel medications ordered. , Routine And magnesium citrate oral liquid 296 mLJump to med 296 mL, Oral, ONCE PRN, 1 dose, Starting on Gloria 11/19/23 at 1937, Until 11/21/23 at 1611, Constipation, Give if no BM 2 hr after previous interventions. If 2 hr after mag citrate there is still no BM, see order for tap water enema, if placed. Give concomitantly with any scheduled bowel medications ordered., Routine And Tap water enema (CANCELED) Routine, DAILY PRN, Starting on Gloria 11/19/23 at 1937, Until Specified, Give if no BM in at least 24 hr and all other ordered bowel regimen medications have been unsuccessful. Give concomitantly with any scheduled bowel medications ordered. Group 3: glucose (Glutose) 40% oral geLJump to med 15-30 g of glucose, Buccal, EVERY 15 MIN PRN, Starting on Gloria 11/19/23 at 1937, Until 11/21/23 at 1611, Low blood sugar, For BG 50-70 mg/dL: Oral treatment preferred: If able to drink, give 120 mL juice or regular (not diet) soda OR if NPO, give 15 gram glucose 40% oral gel massaged into buccal mucosa OR if unconscious or uncooperative, give 25 gram (250 mL) dextrose 10% IV over 15 minutes per protocol OR, if no IV access, 1 mg glucagon IM. For BG less than 50 mg/dL: Oral treatment preferred: If able to drink, give 240 mL juice or regular (not diet) soda OR if NPO, give 30 gram glucose 40% oral gel massaged in buccal mucosa OR if unconscious or uncooperative, give 25 gram (250 mL) dextrose 10% IV over 15 minutes per protocol OR, if no IV access, 1 mg glucagon IM. Recheck BG in 15 minutes. May repeat juice/soda, gel, dextrose or glucagon once per episode. Notify provider if hypoglycemia does not resolve after two treatments. Providers should consider the following: administering longer-acting treatments for the duration of active insulin or hypoglycemia agent for persistent hypoglycemia and re-evaluating active insulin orders before administering the next dose. 1 tube of Glutose-15 contains 15 grams of glucose (net weight of tube = 37.5 grams.), Routine Or dextrose 10% infusionJump to med 250 mL, at 1,000 mL/hr, Intravenous, EVERY 15 MIN PRN, Starting on Gloria 11/19/23 at 1937, Until 11/21/23 at 1611, For BG 50-70 mg/dL: Oral treatment preferred: If able to drink, give 120 mL juice or regular (not diet) soda OR if NPO, give 15 gram glucose 40% oral gel massaged into buccal mucosa OR if unconscious or uncooperative, give 25 gram (250 mL) dextrose 10% IV over 15 minutes per protocol OR, if no IV access, 1 mg glucagon IM. For BG less than 50 mg/dL: Oral treatment preferred: If able to drink, give 240 mL juice or regular (not diet) soda OR if NPO, give 30 gram glucose 40% oral gel massaged in buccal mucosa OR if unconscious or uncooperative, give 25 gram (250 mL) dextrose 10% IV over 15 minutes per protocol OR, if no IV access, 1 mg glucagon IM. Recheck BG in 15 minutes. May repeat juice/soda, gel, dextrose or glucagon once per episode. Notify provider if hypoglycemia does not resolve after two treatments. Providers should consider the following: administering longer-acting treatments for the duration of active insulin or hypoglycemia agent for persistent hypoglycemia and re-evaluating active insulin orders before administering the next dose. Or glucagon (Glucagen) (1 mg/mL) injection solution 1 mgJump to med 1 mg, Intramuscular, EVERY 15 MIN PRN, Starting on Gloria 11/19/23 at 1937, Until 11/21/23 at 1611, Low blood sugar, For BG 50-70 mg/dL: Oral treatment preferred: If able to drink, give 120 mL juice or regular (not diet) soda OR if NPO, give 15 gram glucose 40% oral gel massaged into buccal mucosa OR if unconscious or uncooperative, give 25 gram (250 mL) dextrose 10% IV over 15 minutes per protocol OR, if no IV access, 1 mg glucagon IM. For BG less than 50 mg/dL: Oral treatment preferred: If able to drink, give 240 mL juice or regular (not diet) soda OR if NPO, give 30 gram glucose 40% oral gel massaged in buccal mucosa OR if unconscious or uncooperative, give 25 gram (250 mL) dextrose 10% IV over 15 minutes per protocol OR, if no IV access, 1 mg glucagon IM. Recheck BG in 15 minutes. May repeat juice/soda, gel, dextrose or glucagon once per episode. Notify provider if hypoglycemia does not resolve after two treatments. Providers should consider the following: administering longer-acting treatments for the duration of active insulin or hypoglycemia agent for persistent hypoglycemia and re-evaluating active insulin orders before administering the next dose. , Routine documented in this encounter Care Teams Manifold Operator Relationship Specialty Start Date End Date Unknown None PCP - General 11/20/23 11/30/23 documented as of this encounter
--- OUTSIDE RECORDS SUMMARY | 2024-02-09 14:57 | XMS_ITS | Encounter Summary ---
Author Organization [facility] Address [facility] [place] [address] Care Team Providers Care Bus Operator Name Role Phone Yamile De Leon APRN Primary Care Provider [phone] Encounter Details Date Type Department Care Team (Late st Contact Info) Description 01/27/2019 6:20 PM EDT Ancillary Procedure Radiology Library at [facility] ([place] [address] Aparna Reed MD [facility] [place] [address] Social History Tobacco Use Types Packs/Day Years [...] FILM LIBRARY STORAGE ONLY DX FOOT Routine 01/27/2019 6:19 PM EDT documented in this encounter Results * Film Library- Storage Only DX Foot (01/27/2019 6:19 PM EDT) Narrative RAD - 01/27/2019 6:19 PM EDT This exam is auto-finalizing. It's purpose is for storage only. Aparna Reed MD IMG FILM LIBRARY ORD ERABLES [facility] [place], [place] documented in this encounter Visit Diagnoses Not on filedocumented in this encounter Care Teams Bus Operator Relationship Specialty Start Date End Date Yamile De Leon APRN PCP - General Family Medicine 10/01/18 11/19/23 documented as of this encounter
--- OUTSIDE RECORDS SUMMARY | 2024-02-09 14:57 | XMS_ITS | Encounter Summary ---
Author Organization [facility] Address [facility] [place] [address] Care Team Providers Care Electric Melt Operator Name Role Phone Yamile De Leon CARLOS Primary Care Provider [phone] Encounter Details Date Type Department Care Team (Latest Contact Info) Description 10/01/2018 8:59 AM EDT - 10/01/2018 11:59 PM EDT Hospital Encounter XRay at [address] [place] [address] Javad Urban MD [facility] [place] [address] S/P ORIF bilateral foot fractures, 09/16/18 (Gitajn) Discharge Disposition: Home Social History Tobacco Use [...] Sig Dispensed Refills Start Date End Date cephalexin (KEFLEX) 500 mg Tablet Take 1 tablet by mouth 4 times daily for 7 days. 28 tablet 10/01/2018 10/08/2018 HYDROcodone-acetami nophen (NORCO) 5-325 mg Tablet TAKE ONE TABLET BY MOUTH THREE TIMES A DAY NEEDED FOR SEVERE BACK PAIN 0 09/29/2018 11/19/2023 ranitidine (ZANTAC) 150 mg Tablet TAKE ONE TABLET BY MOUTH AT BEDTIME 2 09/28/2018 11/19/2023 ibuprofen (ADVIL;MOTRIN) 600 mg Tablet TAKE ONE TABLET BY MOUTH THREE TIMES A DAY NEEDED FOR PAIN 3 09/22/2018 11/19/2023 enoxaparin (LOVENOX) 40 mg/0.4 mL Syringe Inject 0.4 mLs subcutaneously nightly for 26 days. 26 Syringe 09/20/2018 10/16/2018 acetaminophen (TYLENOL) 500 mg Tablet Take 2 tablets by mouth every 8 hours as needed for Pain. 30 tablet 1 09/20/2018 11/19/2023 HYDROmorphone (DILAUDID) 2 mg Tablet Take 1 tablet by mouth every 4 hours as needed for Pain. Resume your home pain medication once this script is complete 40 tablet 09/20/2018 10/25/2018 polyethylene glycol (MIRALAX) 17 gram Powder in Packet Take 17 g by mouth 2 times daily. 14 each 09/20/2018 10/25/2018 senna-docusate (PERICOLACE) 8.6-50 mg Tablet Take 2 tablets by mouth 2 times daily. 60 tablet 09/20/2018 10/25/2018 gabapentin (NEURONTIN) 300 mg Capsule TAKE 1 CAPSULE ORALLY AT BEDTIME FOR 1 WEEK THEN INCREASE TO 2 CAPSULES THEREAFTER 5 09/05/2018 10/25/2018 JYOTI TRACY U-100 INSULIN 100 unit/mL (3 mL) pen INJECT 18 UNITS SUBCUTANEOUSLY EVERY MORNING 3 08/29/2018 11/19/2023 metFORMIN (GLUCOPHAGE) 500 mg Tablet TAKE ONE TABLET BY MOUTH TWICE A DAY 3 06/05/2018 11/19/2023 ondansetron (ZOFRAN) 4 mg Tablet TAKE 1 TABLET BY MOUTH EVERY 6 HOURS NEEDED FOR NAUSEA 0 08/30/2018 11/19/2023 pantoprazole (PROTONIX) 40 mg Tablet, Delayed Release (E.C.) TAKE ONE TABLET BY MOUTH DAILY IN THE MORNING 3 07/13/2018 11/08/2018 simvastatin (ZOCOR) 20 mg Tablet TAKE ONE TABLET BY MOUTH EVERY NIGHT AT BEDTIME 3 03/25/2018 11/08/2018 CIS Free Text Med - Albuterol 04/12/2009 11/08/2018 FLUTICASONE/SALMETE ROL (ADVAIR DISKUS INHL) 04/12/2009 11/08/2018 MEPERIDINE HCL (DEMEROL ORAL) 04/12/2009 10/25/2018 documented as of this encounter Plan of Treatment Not on file documented as of this encounter Procedures Procedure Name Priority Date/Time Associated Diagnosis Comments XR FOOT MIN 3 VIEWS BILAT Routine 10/01/2018 9:16 AM EDT S/P ORIF bilateral foot fractures, 09/16/18 (Gitajn) documented in this encounter Results * XR Foot Min [...] (Gitajn) documented in this encounter Care Teams Electric Melt Operator Relationship Specialty Start Date End Date Yamile De Leon CARLOS PCP - General Family Medicine 10/01/18 11/19/23 documented as of this encounter
--- OUTSIDE RECORDS SUMMARY | 2024-02-09 14:57 | XMS_ITS | Encounter Summary ---
Author Organization [facility] Address [facility] [place] [address] Care Team Providers Care Horseradish Grinder Name Role Phone Yamile De Leon APRN Primary Care Provider [phone] Reason for Visit * Reason Comments Medication Refill Encounter Details Date Type Department Care Team (Late st Contact Info) Description 07/13/2022 Refill Dermatology at [facility] [address] [place] [address] Charlie Bowser MD [facility] [place] [address] Prurigo nodularis Social History Tobacco Use Types Packs/Day Years [...] as of this encounter Visit Diagnoses Diagnosis 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
--- OUTSIDE RECORDS SUMMARY | 2024-02-09 14:57 | XMS_ITS | Encounter Summary ---
Author Organization [facility] Address [facility] [place] [address] Care Team Providers Care Printing Manager Name Role Phone Yamile De Leon APRN Primary Care Provider [phone] Encounter Details Date Type Department Care Team (Latest Contact Info) Description 10/25/2018 9:58 AM EDT - 10/25/2018 11:59 PM EDT Hospital Encounter XRay at [address] [place] [address] Aparna Reed MD [facility] [place] [address] S/P ORIF bilateral foot fractures, 09/16/18 (Brianna) Discharge Disposition: Home Social History Tobacco Use [...] Sig Dispensed Refills Start Date End Date HYDROcodone-acetamin ophen (NORCO) 5-325 mg Tablet TAKE ONE TABLET BY MOUTH THREE TIMES A DAY NEEDED FOR SEVERE BACK PAIN 0 09/29/2018 11/19/2023 ranitidine (ZANTAC) 150 mg Tablet TAKE ONE TABLET BY MOUTH AT BEDTIME 2 09/28/2018 11/19/2023 ibuprofen (ADVIL;MOTRIN) 600 mg Tablet TAKE ONE TABLET BY MOUTH THREE TIMES A DAY NEEDED FOR PAIN 3 09/22/2018 11/19/2023 acetaminophen (TYLENOL) 500 mg Tablet Take 2 tablets by mouth every 8 hours as needed for Pain. 30 tablet 1 09/20/2018 11/19/2023 JYOTI TRACY U-100 INSULIN 100 unit/mL (3 [...] Free Text Med - Albuterol 04/12/2009 11/08/2018 FLUTICASONE/SALMETER OL (ADVAIR DISKUS INHL) 04/12/2009 11/08/2018 documented as of this encounter Plan of Treatment Not on file documented as of this encounter Procedures Procedure Name Priority Date/Time Associated Diagnosis Comments XR FOOT MIN 3 VIEWS BILAT Routine 10/25/2018 10:26 AM EDT S/P ORIF bilateral foot fractures, [...] the number below. ? Electronically signed by: TAMMIE Dailey [facility] ([phone]), at 10/25/2018 3:36 PM Narrative 10/25/2018 3:36 [...] internal fixation of a Lisfranc fracture-dislocation with ptwhb-wis-bmckw constructs traversing the first and second tarsometatarsal joints and 3 Yaw wires traversing the third through fifth tarsometatarsal joints. Also status post gexondlyj-swr-gkyll fixation of an intra-articular first proximal phalangeal [...] fractures and a Lisfranc fracture-dislocation with a fkikv-bvv-zfwfm construct traversing the fourth metatarsal base fracture [...] internal fixation of a Lisfranc fracture-dislocation with sybit-jaz-oepva constructs traversing the firstand second tarsometatarsal joints and 3 Yaw wires traversing the thirdthrough fifth tarsometatarsal joints. Also status post ggwsuckpr-sgk-bjxpngobubbfb of an intra-articular first proximal phalangeal base [...] neck fractures and a Lisfranc fracture-dislocation with ywhhmi-jrx-rnhjd construct traversing the fourth metatarsal base fracture [...] number below. Electronically signed by: Gretchen [facility] ([phone]),at 10/25/2018 3:36 PM Aparna Reed MD IMG DX ORDERABLES documented in this encounter Visit Diagnoses Diagnosis S/P ORIF bilateral foot fractures, 09/16/18 (Brianna) documented in this encounter Care Teams Printing Manager Relationship Specialty Start Date End Date Yamile De Leon APRN PCP - General Family Medicine 10/01/18 11/19/23 documented as of this encounter
--- OUTSIDE RECORDS SUMMARY | 2024-02-09 14:57 | XMS_ITS | Encounter Summary ---
Author Organization [facility] Address [facility] [place] [address] Care Team Providers Care Construction Engineer Name Role Phone Yamile De Leon APRN Primary Care Provider [phone] Reason for Visit * Reason Onset Date Comments Questions 10/27/2018 Encounter Details Date Type Department Care Team (Late st Contact Info) Description 10/27/2018 Tele[place] [phone] Aparna Reed MD [facility] [place] [address] Questions Social History Tobacco Use Types Packs/Day Years [...] encounter Miscellaneous Notes * Telephone Encounter - Yue Baker - 10/27/2018 4:04 PM EDT Who is calling: Jenae Was this a new injury? No new injury Have you had Surgery? yes If so when? 4.23.19 Who was the Surgeon?Brianna Best call back number: [phone] Best time to call back between 8:00 am & 5:00 pm: anytime Can we leave a message? yes What is the question: questions about her cast? Can she go into an air cast now? The cast she is innow are too heavy. She would like to transfer of care to [facility] sooner rather than later due to transportation issues. documented in this encounter Plan of Treatment Not on file documented as of this encounter Visit Diagnoses Not on filedocumented in this encounter Care Teams Construction Engineer Relationship Specialty Start Date End Date Yamile De Leon APRN PCP - General Family Medicine 10/01/18 11/19/23 documented as of this encounter
--- OUTSIDE RECORDS SUMMARY | 2024-02-09 14:57 | XMS_ITS | Encounter Summary ---
Author Organization [facility] Address [facility] [place] [address] Care Team Providers Care Mobile Manager Name Role Phone Yamile De Leon CARLOS Primary Care Provider Reason for Visit * Consultation (Routine) - Closed Specialty Diagnoses / Procedures Referred By Bruce galo Referred To Contact Dermatology Diagnoses Breast lesion Whitney Vanegas PA [address] [place] [address] [facility] Dermatology [address] [place] [address] Referral ID Status Reason Start Date Expiration Date V isits Requested Visits Authorized [id number] Closed Consult, Test & Treat PCP Updated and/or Approved 01/02/2022 01/02/2023 12 12 Encounter Details Date Type Department Care Team (Late st Contact Info) Description 06/24/2022 4:00 PM EST Office Visit Dermatology at [facility] [address] [place] [phone] Charlie Bowser MD [facility] [place] [address] Prurigo nodularis (Primary Dx) Social History Tobacco Use Types Packs/Day Years [...] as of this encounter Progress Notes * Charlie Bowser MD - 06/24/2022 4:00 PM EST Images from the original note were not included. DEPARTMENT OF DERMATOLOGY Medical Dermatology Clinic Note Provider: Charlie Bowser MD Patient's preferred name Jenae Preferred contact method for results [x]Phone []myD-H [x]Letter Detailed phone message OK? yes Are there any other people with whom we may discuss your care? Piyush La Past Medical History Date, location, treatment Melanoma no Dysplastic nevi no SCC no BCC no AKs no UV Exposure & Protection Other relevant past medical history HBP Diabetes Asthma Family History Details Melanoma unknown NMSC unknown Other relevant family history Social History Occupation: Hobbies: Other: Pre-Procedure Questions Details Allergy to lidocaine, epinephrine, Dermabond, chlorhexidine, or adhesives no Bleeding disorder or blood thinners no Implanted devices (Pacemaker, defibrillator, deep brain stimulator, cochlear implant) no History of Present Illness: Jenae La is a 56 y.o. Patient is referred to the clinic at the request of Whitney Vanegas for an evaluation of a lesions located on the right breast. Patient reports that in October 2019, she noticed redness across the breast and went to urgent care. She states that one of the blisters popped and she noticed more spots/blisters appearing. She states that the spots are only on the right breast. She states that the spots are very itchy and sometimes painful. Shewas previously seen in by [facility] and had two lesions biopsied, both were benign and consistent with prurigo nodularis (see biopsy results below, available in media tab). Has tried various creams and barrier protection with no relief so far Biopsy proven A. SKIN OF BREAST, RIGHT, SUPERIOR/MEDIAL, BIOPSY: - Most suggestive of prurigo nodularis. See microscopic. ?? B. SKIN OF BREAST, RIGHT, LATERAL, EXCISION: - Epidermal ulceration with dermal reactive change. See microscopic. Review of Systems: General: Feeling well. Skin: No other skin concerns. Medications: Reviewed in eD-H Allergies: Reviewed in eD-H Skin Examination: Focused skin examination of the breast was normal with the exception of the findings below. Assessment/Plan #. Prurigo Nodularis #. C/b Impetigo EXAM: - several clustered indurated pink papules with overlying angulated superficial erosions and honey-colored crust along with areas of well-defined hypopigmented atrophic papules c/w scars - Reviewed biopsy results 06/06/22, both from right breast, copied below: - Part a: - Most suggestive of prurigo nodularis. See microscopic. The biopsy shows irregular epidermal hyperplasia with neutrophilic and serum crust. Parakeratosis and hyper orthokeratosis are noted. Reactive cytologic atypia is seen within the squamous epithelium. The dermis shows fibrosis and increased numbers of vessels with admixed chronic inflammation. Clinical correlation is recommended. ?? - Part B: - Epidermal ulceration with dermal reactive change. See microscopic. Sections show epidermal ulceration with partial re- epithelialization and adjacent reactive change. Neutrophilic and serum crust is noted. The dermis shows fibrosis with vertically oriented vessels and patchy chronic inflammation consistent with scar. A neoplasm is not identified in the sections examined. Clinical correlation is Recommended. - Discussed in detail with the patient that these lesions are triggered by repetitive rubbing and scratching on the skin overlying this area - Commonly, this is triggered by atopic dermatitis, xerosis, or other skin dermatitis - Per patient history, animals frequently resting on chest with known allergy to animals, which could be culprit in these lesions - Discussed with patient avoiding contact with animals on chest when possible - Discussed switching to all sensitive skin care products, reviewed in detail - Several of the lesions are impetiginized and discussed using mupirocin to open lesions, then switching to topical steroid when healed - Discussed barrier protection such as zinc oxide to cover the skin and cover with non-allergenic dressing, provided telfa and medipore tape in clinic Plan: - start Rx Mupirocin ointment BID to the open lesions, once lesions are healed, stop and switch to topical steroids. - start Rx Clobetasol ointment to the healed over lesions on the breast, BID x 2 weeks, then take 1week off, repeat PRN - Apply barrier protect such as zinc oxide - Cover with bandage to avoid itching - Avoid animals on chest - Sensitive skin care products - F/u 3-4 months for prurigo f/u, can consider steroid injection if no improvement Figure 1 Photo(s) taken and charted with patient's verbal consent. Other: ??? OTC skin products discussed RTC: In August for prurigo nodularis follow up []Note routed to structural layout worker []Recall placed in scheduling system [x]Appointment scheduled at checkout Scribe attestation: TARI Felton has performed the documentation for this encounter in thepresence of and acting as a scribe for Charlie Bowser MD. I performed the above scribed service and agree with the accuracy of the documentation in this encounter. Reviewed and signed by: Charlie Bowser MD [facility] Patient seen and evaluated with staff legal administrative assistant: Kirsten Lantigua MD Department of Dermatology [facility] * Kirsten Lantigua MD - 06/24/2022 4:00 PM EST I directly supervised Dr. Bowser during this office visit. Dr. Bowser presented the history and physical exam to me. I, then, saw and examined this patient with Dr. Bowser. We reviewed the history and pertinent details and I confirmed the physical findings. I agree with the details of the history and physical exam as documented in Dr. Solorzano's note. Kirsten Lantigua MD Staff Physician documented in this encounter Plan of Treatment Not on file documented as of this encounter Visit Diagnoses Diagnosis Prurigo nodularis- Primary Lichenification and lichen simplex chronicus documented in this encounter Care Teams Mobile Manager Relationship Specialty Start Date End Date Yamile De Leon APRN PCP - General Family Medicine 10/01/18 11/19/23 documented as of this encounter
--- OUTSIDE RECORDS SUMMARY | 2024-02-09 14:57 | XMS_ITS | Encounter Summary ---
Author Organization [facility] Address [facility] [place] [address] Care Team Providers Care Assembly Leader Name Role Phone Yamile De Leon APRN Primary Care Provider [phone] Encounter Details Date Type Department Care Team (Latest Contact Info) Description 11/19/2023 Travel Social History Tobacco Use Types Packs/Day Years Used Date Smoking Tobacco: Every Day Cigarettes 1 28 Smokeless Tobacco: Never Comments:Currently using kalia otine inhaler to help herself quit (11/08/18) Alcohol Use Standard Drinks/Week Comments Not Currently 0 (1 standard drink = 0.6 oz pur e alcohol) [facility] Utilities Answer Date Recorded In the [...] any time in the past 12 m [facility], were you homeless or living in a correction (including now)? No 11/20/2023 DH IPV Inpatient [...] on filedocumented in this encounter Care Teams Assembly Leader Relationship Specialty Start Date End Date Yamile De Leon APRN PCP - General Family Medicine 10/01/18 11/19/23 documented as of this encounter
--- OUTSIDE RECORDS SUMMARY | 2024-02-09 14:57 | XMS_ITS | Encounter Summary ---
Author Organization [facility] [place] [address] Care Team Providers Care Locket Maker Name Role Phone Yamile De Leon APRN Primary Care Provider [phone] Reason for Visit * Reason Onset Date Comments Other 02/03/2019 Home Health Encounter Details Date Type Department Care Team (Late st Contact Info) Description 02/03/2019 Telephone [place] [phone] Crista Warner RN Other (Home Health) Social History Tobacco Use Types Packs/Day Years [...] encounter Miscellaneous Notes * Telephone Encounter - Crista Warner RN - 02/03/2019 8:22 AM EDT Treatment order signed by provider and faxed back to [facility] ( ). Form in Scan Doc. documented in this encounter Plan of Treatment Not on file documented as of this encounter Visit Diagnoses Not on filedocumented in this encounter Care Teams Locket Maker Relationship Specialty Start Date End Date Yamile De Leon APRN PCP - General Family Medicine 10/01/18 11/19/23 documented as of this encounter
--- OUTSIDE RECORDS SUMMARY | 2024-02-09 14:58 | XMS_ITS | Encounter Summary ---
Author Organization [facility] [place] [facility] [place] [address] Care Team Providers Care Continuous Pillowcase Cutter Name Role Phone Unavailable Primary Care Provider Unavailabl e Encounter Details Date Type Department Care Team (Late st Contact Info) Description 09/13/2018 Ancillary Procedure Radiology Library at [facility] [place] [address] Social History Tobacco Use Types Packs/Day Years [...] Diagnosis Comments FILM LIBRARY STORAGE ONLY DX CHEST Routine 09/13/2018 12:00 AM EDT documented in this encounter Results * Film Library- Storage Only DX Chest (09/13/2018 12:00 AM EDT) Narrative RAD - 09/15/2018 10:46 AM EDT This exam is auto-finalizing. It's purpose is for storage only. Javad Urban MD IMG FILM LIBRARY ORD ERABLES [facility] Faustino PA documented in this encounter Visit Diagnoses Not on filedocumented in this encounter
--- OUTSIDE RECORDS SUMMARY | 2024-02-09 14:58 | XMS_ITS | Encounter Summary ---
Author Organization [facility] [place] [address] Care Team Providers Care Switch Tender Name Role Phone Unavailable Primary Care Provider Unavailabl e Encounter Details Date Type Department Care Team (Late st Contact Info) Description 09/12/2018 Ancillary Procedure Radiology Library at [facility] [place] [address] Aparna Reed MD [facility] [place] [address] Social History Tobacco Use Types Packs/Day Years Used Date Smoking Tobacco: Former Sex and Gender Information Value Date Recorded Sex Assigned at Not on file Gender Identity Not on file Sexual Orientation Not on file documented as of this encounter Plan of Treatment Not on file documented as of this encounter Procedures Procedure Name Priority Date/Time Associated Diagnosis Comments FILM LIBRARY STORAGE ONLY CT LOWER EXTREMITY Routine 09/12/2018 12:00 AM EDT documented in this encounter Results * Film Library- Storage Only CT Lower Extremity (09/12/2018 12:00 AM EDT) Narrative RAD - 09/13/2018 12:54 PM EDT This exam is auto-finalizing. It's purpose is for storage only. Aparna Reed MD IMG FILM LIBRARY ORD ERABLES [place], [place] documented in this encounter Visit Diagnoses Not on filedocumented in this encounter
--- OUTSIDE RECORDS SUMMARY | 2024-02-09 14:58 | XMS_ITS | Encounter Summary ---
Author Organization [facility] [place] [address] Care Team Providers Care Operator Vacuum Name Role Phone None Primary Care Provider Unavailabl e Encounter Details Date Type Department Care Team (Late st Contact Info) Description 09/14/2018 Telephone [place] [phone] Josseline Macedo MD [facility] [place] [address] Social History Tobacco Use Types Packs/Day Years Used Date Smoking Tobacco: Former Sex and Gender Information Value Date Recorded Sex Assigned at Not on file Gender Identity Not on file Sexual Orientation Not on file documented as of this encounter Miscellaneous Notes * Telephone Encounter - Josseline Macedo MD - 09/14/2018 12:58 PM EDT Received transfer center phone call from Dr. Florentino at [facility] regarding patient who is an inpatient there. Per report the patient states that she was holding a lot of firewood on 11 September when she dropped the wood onto her feet. She noted immediate right greater than left foot pain. Per report the patient then decided to go to a recliner where she sat for a number of hours. Overnight she went to getup to the bathroom and per report fell. [...] the patient was found to have bilateral foot fractures. These are reportedly closed fractures that she does have an abrasion on the medial aspect of her right foot. She is splinted bilaterally for these. Additionally the have neurology consulted for question of syncope versus seizure disorder given the patient's history. The provider reportsthat neurology has a low suspicion for seizure but she is empirically on Keppra. The plan is for anEEG that has not been completed yet. Additionally [...] She did have a head CT again w [facility] we do not have in our system but per report was negative. She does have abrasions on her head.Dr. Peña and orthopedic provider at [facility] reports that he has taken care of the patient on an outpatient basis and that she is now back to her baseline. Patient's past medical history is notable for COPD, LORRI on CPAP, diabetes on insulin, chronic opioid use currently on [place] per report, fibromyalgia Patient is not on [...] syncope vs seizure- on empiric keppra per [facility] neurology 2. PNA - per report CT [...] on filedocumented in this encounter Care Teams Operator Vacuum Relationship Specialty Start Date End Date None None PCP - General 09/14/18 09/30/18 documented as of this encounter
--- OUTSIDE RECORDS SUMMARY | 2024-02-09 14:58 | XMS_ITS | Encounter Summary ---
Author Organization Formerly [facility] [place] [address] Care Team Providers Care Negative Checker Name Role Phone Unavailable Primary Care Provider Unavailabl e Encounter Details Date Type Department Care Team (Late st Contact Info) Description 09/13/2018 12:10 AM EDT Ancillary Procedure Radiology Library at [facility] [place] [id number] Social History Tobacco Use Types Packs/Day Years Used Date Smoking Tobacco: Former Sex and Gender Information Value Date Recorded Sex Assigned at Not on file Gender Identity Not on file Sexual Orientation Not on file documented as of this encounter Plan of Treatment Not on file documented as of this encounter Procedures Procedure Name Priority Date/Time Associated Diagnosis Comments FILM LIBRARY STORAGE ONLY MR HEAD Routine 09/13/2018 12:10 AM EDT documented in this encounter Results * Film Library- Storage Only MR Head (09/13/2018 12:10 AM EDT) Narrative RAD - 09/15/2018 10:49 AM EDT This exam is auto-finalizing. It's purpose is for storage only. Javad Urban MD IMG FILM LIBRARY ORD ERABLES BRYAN Rivas documented in this encounter Visit Diagnoses Not on filedocumented in this encounter
--- OUTSIDE RECORDS SUMMARY | 2024-02-09 14:58 | XMS_ITS | Encounter Summary ---
[place] [address] Care Team Providers Care Technician Name Role Phone Emma Miramontes APRN Primary Care Provider [phone] Reason for Visit * Reason Comments Skin Problem Encounter Details Date Type Department Care Team (Late st Contact Info) Description 09/24/2011 4:15 PM EDT Office Visit Dermatology [address] [place] [address] [address] [place] [address] Hammad Fields MD [address] [facility] [place] [address] Psoriasiform dermatitis (Primary Dx) Social History Tobacco Use Types Packs/Day Years Used Date Smoking Tobacco: Former Sex and Gender Information Value Date Recorded Sex Assigned at Not on file Gender Identity Not on file Sexual Orientation Not on file documented as of this encounter Progress Notes * Hammad Fields MD - 09/24/2011 5:09 PM [...] in consultation by Emma Miramontes from the [facility]. The patient states that her daughter has [...] of this encounter Visit Diagnoses Diagnosis Psoriasiform dermatitis- Primary Other psoriasis and similar disorders documented in this encounter Care Teams Technician Relationship Specialty Start Date End Date Emma Miramontes APRN PCP - General 04/16/10 12/10/17 documented as of this encounter
--- OUTSIDE RECORDS SUMMARY | 2024-02-09 14:58 | XMS_ITS | Encounter Summary ---
Author Organization [facility] Address [facility] Marizol xochiltbernard [place] [address] Care Team Providers Care Social Service Assistant Name Role Phone None Primary Care Provider Unavailabl e Encounter Details Date Type Department Care Team (Latest Contact Info) Description 09/14/2018 2:45 PM EDT Ancillary Procedure Radiology Library at [facility] [place] [address] Javad Urban MD [facility] [place] [address] Multiple closed fractures of foot, initial encounter Social History Tobacco Use Types Packs/Day Years Used Date Smoking Tobacco: Former Sex and Gender Information Value Date Recorded Sex Assigned at Not on file Gender Identity Not on file Sexual Orientation Not on file documented as of this encounter Plan of Treatment Not on file documented as of this encounter Procedures Procedure Name Priority Date/Time Associated Diagnosis Comments REQUEST FOR 2ND READ CT LOWER EXTREMITY Routine 09/14/2018 2:31 PM EDT Multiple closed fractures of foot, initial encounter documented in this encounter Results * Request For 2nd Read CT Lower Extremity (09/14/2018 2:31 PM EDT) Anatomical Region Laterality Modality Hip, Leg, Knee, Thigh, Ankle, Foot SO Addenda Addendum by Sheila Joaquin MD on 09/28/2018 4:36 PM EDT --------ADDENDUM #1-------- TECHNIQUE: 1 mm non-contrast axial CT images of the right foot were acquired. Sagittal and coronal reformats [and 3D models] were created. Thank you for letting us participate in the care of this patient. For questions regarding this report, please contact the number below. ? --------ORIGINAL REPORT -------- EXAMINATION: REQUEST FOR 2ND READ CT LOWER [...] FINDINGS: OSSEOUS STRUCTURES: 1. ??Lateral malleolus-distal fibular fracture Motley A 2. ??Anterior malleolus-nondisplaced small comminuted intra-articular fracture resembles a chaput fragment. 3. ??Cuboid-comminuted displaced fracture of the lateral cortex. 4. ??Lisfranc injury-fracture subluxation of 1-4 TMT joints. There are multiple displaced fracture fragments and malalignment. 5. ??Naviculocuneiform joints-normal. 6. ??1 and 2 proximal phalanges [PP]-comminuted intra-articular fracture with a large bone defect at phalangeal articular surface. 7. ??1 metatarsal-comminuted impaction of medial first metatarsal head. 8. ??2-4 metatarsal bases-multiple tiny comminuted fracture fragments at base with malalignment of tarsometatarsal joints 9. ??3 cuneiforms-multiple intra-articular displaced fractures with malalignment. JOINTS: Lisfranc joint-dorsal and lateral subluxation of 2-4 TMT joints. TENDONS: No displaced tendons. MUSCLES: No fatty atrophy. SOFT TISSUES: Diffuse subcutaneous edema most pronounced at the dorsum IMPRESSION: 1. ??Lisfranc fracture dislocation at multiple locations. 2. ??Additional fractures of the 1 and 2 PP and 1 metatarsal heads. 3. ??Motley A fracture of the lateral malleolus 4. ??Nondisplaced intra-articular fracture of the anterior tibia/malleolus. Thank you for letting us participate in the care of this patient. For questions regarding this report, please contact the number below. ? Impressions 09/14/2018 4:41 PM EDT 1. ??Lisfranc fracture dislocation at multiple locations. 2. ??Additional fractures of the 1 and 2 PP and 1 metatarsal heads. 3. ??Motley A fracture of the lateral malleolus 4. ??Nondisplaced intra-articular fracture of the anterior tibia/malleolus. Thank you for letting us participate in the care of this patient. For questions regarding this report, please contact the number below. ? Narrative 09/14/2018 4:41 PM [...] FINDINGS: OSSEOUS STRUCTURES: 1. ??Lateral malleolus-distal fibular fracture Motley A 2. ??Anterior malleolus-nondisplaced small comminuted intra-articular fracture resembles a chaput fragment. 3. ??Cuboid-comminuted displaced fracture of the lateral cortex. 4. ??Lisfranc injury-fracture subluxation of 1-4 TMT joints. There are multiple displaced fracture fragments and malalignment. 5. ??Naviculocuneiform joints-normal. 6. ??1 and 2 proximal phalanges [PP]-comminuted intra-articular fracture with a large bone defect at phalangeal articular surface. 7. ??1 metatarsal-comminuted impaction of medial first metatarsal head. 8. ??2-4 metatarsal bases-multiple tiny comminuted fracture fragments at base with malalignment of tarsometatarsal joints 9. ??3 cuneiforms-multiple intra-articular displaced fractures with malalignment. JOINTS: Lisfranc joint-dorsal and lateral subluxation of 2-4 TMT joints. TENDONS: No displaced tendons. MUSCLES: No fatty atrophy. SOFT TISSUES: Diffuse subcutaneous edema most pronounced at the dorsum Procedure Note Sheila Joaquin MD - 09/14/2018 EXAMINATION: REQUEST FOR 2ND READ CT LOWER EXTREMITY CLINICAL HISTORY: assess multiple fractures; location offractures/dislocations; What Modality is the exam? CT Scan; Body Part (please add comments as necessary): bilateral feet; I believe a reinterpretation of this exam mayalter care of Patient. Yes, entered by ordering service TECHNIQUE: 1 mm non-contrast axial CT images of the [ ] were acquired.Sagittal and coronal reformats [and 3D models] were created. COMPARISON: None FINDINGS: OSSEOUS STRUCTURES: 1. Lateral malleolus-distal fibular fracture Motley A 2. Anterior malleolus-nondisplaced small comminuted intra-articularfracture resembles a chaput fragment. 3. Cuboid-comminuted displaced fracture of the lateral cortex. 4. Lisfranc injury-fracture subluxation of 1-4 TMT joints. There aremultiple displaced fracture fragments and malalignment. 5. Naviculocuneiform joints-normal. 6. 1 and 2 proximal phalanges [PP]-comminuted intra-articular fracturewith a large bone defect at phalangeal articular surface. 7. 1 metatarsal-comminuted impaction of medial first metatarsal head. 8. 2-4 metatarsal bases-multiple tiny comminuted fracture fragments atbase with malalignment of tarsometatarsal joints 9. 3 cuneiforms-multiple intra-articular displaced fractures withmalalignment. JOINTS: Lisfranc joint-dorsal and lateral subluxation of 2-4 TMT joints. TENDONS: No displaced tendons. MUSCLES: No fatty atrophy. SOFT TISSUES: Diffuse subcutaneous edema most pronounced at the dorsum IMPRESSION 1. Lisfranc fracture dislocation at multiple locations. 2. Additional fractures of the 1 and 2 PP and 1 metatarsal heads. 3. Motley A fracture of the lateral malleolus 4. Nondisplaced intra-articular fracture of the anteriortibia/malleolus. Thank you for letting us participate in the care of this patient. Forquestions regarding this report, please contact the number below. Javad Urban MD IMG OUTSIDE [facility] TATION ORDERABLES documented in this encounter Visit Diagnoses Diagnosis Multiple closed fractures of foot, initial encounter documented in this encounter Care Teams Social Service Assistant Relationship Specialty Start Date End Date None None PCP - General 09/14/18 09/30/18 documented as of this encounter
--- OUTSIDE RECORDS SUMMARY | 2024-02-09 14:58 | XMS_ITS | Encounter Summary ---
Author Organization [facility] Address [facility] [place] [address] Care Team Providers Care Director Vaccine Name Role Phone None Primary Care Provider Unavailabl e Reason for Visit * Auth/Cert Specialty Diagnoses / Procedures Referred By Contac t Referred To Contact Diagnoses Fracture of unspecified tarsal bone(s) of unspecified foot, initial encounter for closed fracture CLOSED HEAD INJURY, FOOT BONE FX'S -CONFUSED Procedures EMERGENCY IPI Referral ID Status Reason Start Date Expiration Date Visits Re quested Visits Authorized [id number] 1 1 Encounter Details Date Type Department Care Team (Late st Contact Info) Description 09/16/2018 9:58 AM EDT - 09/16/2018 12:57 PM EDT Surgery [place] [id number] Aparna Reed MD [facility] [place] [address] ORIF METATARSAL FX, EACH (WRVU 7.44) Social History Tobacco Use Types Packs/Day Years [...] documented in this encounter Discharge Summaries * Buffy Russell PA - 09/20/2018 7:01 AM EDT Discharge Summary Patient Name: Jenae La Patient Age: 53 y.o. Language: Swedish Race: White Ethnicity: Not nor Admit date: 09/14/2018 Discharge date and time: 09/20/2018 Attending Physician: Javad Urban MD Discharge Physician: Javad Urban MD Follow-up Recommendations for Providers: See discharge instructions for additional details. Future Appointments Date Time Provider Department Center 10/01/2018 10:00 AM [facility] DX ROOM 1 Xray [facility] 10/01/2018 11:00 AM Mary Ellison PA [facility] Ortho 3C [facility] 11/08/2018 1:00 PM Abdirahman Enamorado MD [facility] Neuro [facility] Inpatient Provider Contact Information: Javad Urban MD Orthopedics: [phone] After hours and weekends, call [facility] Circuits Engineer, , and have the Orthopedic resident paged. [...] the orthopaedics service as a transfer from [facility] for operative management of bilateral complex foot fractures. Mrs. La reports dropping a piece of firewood on her feet on the evening of 09/11/2018. This resulted in immediate pain in both of her feet, later accompanied by swelling and bruising. Over the next day she had multiple falls that she attributes to significant foot pain with ambulation. She struck her head multiple times, leading her to present to [facility] on 09/12/2018 for evaluation. ?? Initial work-up at [facility] revealed sepsis secondary to suspected community- acquired pneumonia, mild acute exacerbation of COPD, a closed head injury with postconcussive syndrome, multiple bilateral foot fractures, and MANUEL, resulting in hospital admission. Upon presentation to the [facility] ED, her and herjake reported instances of trembling and fecal incontinence. She was observed to be confused andhave unilateral arm and lip twitching in the ED. A lumbar puncture was performed for suspicion of meningitis, but this was reported to be negative. Mrs. La was admitted to the ICU, where empiricazithromycin and Rocephin, IV steroids, nebulizer treatments, empiric [...] no active bleeding observed. General Surgery at [facility] evaluated the patient, and felt no further action was required besides outpatient follow up. ?? Upon arrival to [facility], Mrs. La reports moderate pain in her feet, right worse than left. Her pain is no worse than it has been the preceding few days. She denies having pain in any other location. She endorses shortness of breath when lying flat and denies having any chest pain, nausea, vomiting, fevers, chills, tingling or numbness. On arrival a Coppola catheter was in place and bilateral posterior slab splints were on the lower extremities. Hospital Course: Jenae La was admitted from the Emergency Department for evaluation and treatment of the above injury. She was cleared by Hospital Medicine for surgical intervention of her bilateral foot fractures on HD#2. On HD#3 she was taken to surgery for the above procedure. She tolerated the procedure and did well post- operatively. On POD#1 the patient was started on oral pain medications. The patient was referred to PT for mobility training - non-weight bearing of bilateral legs. The coppola was removed and the patient was voiding spontaneously in good amounts. Per Neurology Keppra was stopped andEEG was negative for any seizure activity. Recommend outpatient follow up. POD#2-4 were uneventful as the patient continued with her rehabilitation. She did have a bowel movement prior to discharge and was passing flatus and was taking po without difficulty. On POD#4 the patient was medically clearwith stable vital signs and determined safe for discharge to home. Hospital Medicine Consult: ASSESSMENT/PLAN: Jenae La is a 53 y.o woman with HTN, HLD, Type II DM, LORRI on CPAP, fibromyalgia with chronic opioid use, and GERD who was admitted to the Orthopedic Surgery Service as a transfer from [facility] for definitive operative management of bilateral complex foot fractures s/p trauma on the evening of 09/11/18.??Medicine was consulted for CAP management.??The patient is also suffering from community acquired pneumonia without a confirmed diagnosis of COPD (no known pulmonary function tests within the chart) for which we will recommend completing a total 5 day course of antibiotics (to complete today)?? with discontinuation of her stress dose steroids (stopped yesterday). She has no O2 requirement, noSOB, reports improved cough which is non-productive. The patient has no neurologic deficits and it is unclear if she demonstrated seizure-like activity during her presentation at [facility], thus would recommend consulting Neurology to determine??the need for an EEG to rule out sub-clinical seizure and determine the need to continue keppra. The patient's revised cardiac risk index is a Class I risk (0 points) with a 3.9% 30 day risk of , [place], or cardiac arrest. No further cardiac work up is recommended prior to surgical intervention. The patient's ACS NSQIP Surgical Risk Calculator demonstrates the patient has a 7.9% (below average) risk of serious complication, a 9.7% (below average) [...] Consult Attending. Further adjustments to the plan will be reflected in their addendum. ? Consult service [...] CPAP at home) who presents as a transfer to the orthopedic service from [facility] for bilateral complex foot fractures. ?? Patient had routine EEG completed today that did not show any epileptiform activity. I think at this time it is still difficult to say for [...] prolonged ambulatory EEG at that time and discuss other anti-seizure medications. ?? She is safe [...] Patient mobilizing with Wheelchair, cognitively intact at baselinemental status at time of discharge. Important Lab [...] Lisfranc injury-fracture subluxation of 1-4 TMT joints. Thereare multiple displaced fracture fragments and malalignment. 5. [...] us participate in the care of this pa tient. For questions regarding this report, please contact [...] and 2 TMT joint-dorsal plate and screw fix ation across metatarsals and cuneiforms. Lisfranc joints: The [...] and alert. Mobilizing as noted above, pain controlled on oral medications. Discharge to: Home HOME HEALTH CARE AGENCY: ??[facility] ?? PHONE: [phone] FAX: [phone] Updated Allergies/ADRs: Allergies Allergen Reactions ??? Sulfa [...] Pain. Resume your home pain medication once thisscript is complete 2 mg Quantity: 40 tablet Refills: 0 polyethylene glycol 17 gram Pwpk Commonly known as: MIRALAX Take 17 g by mouth 2 times daily. 17 g Quantity: 14 each Refills: 0 senna-docusate 8.6-50 mg Tab Commonly known as: PERICOLACE Take 2 tablets by mouth 2 times daily. 2 tablet Quantity: 60 tablet Refills: 0 Continued medications, unchanged Dose Details ANISHA WU INHL Refills: 0 BASAGLEZEQUIEL TRACY U-100 INSULIN 100 unit/mL (3 mL) [...] much as possible to decrease swelling and control pain. 4. If possible, you should wear DOLORES hose until you are seen in follow-up. These should be removed at least once per day to inspect your skin. [...] increase your intake of high protein foods andfluids. Driving: None until you are cleared to do so by your Orthopedic surgeon. You should not drive whileyou are on narcotic pain meds as they can affect your judgment and reaction time. Call your surgeonwith any questions/concerns. Medications: 1. The pain medication you are on can cause constipation so increase your intake of fluids and fiber while you are on them. The stool softener, Pericolace, that has been prescribed can also be taken to facilitate a bowel movement. You can also take an nrnk-ffg-gfmxoyk medication, Miralax if needed to combat constipation. 2. If you need a renewal on your narcotic pain medication, you need to give the Orthopedic clinic enough time to process your request. This can take up to three days, so plan accordingly. 3. Continue acetaminophen (Tylenol) 1,000mg every 8 hours as needed for pain. This can be effectivein controlling pain along with your other medications. [...] A dry dressing after this may protect yourclothing or decrease wound sensitivity. Cast/Splint Care: Keep the cast or splint in place until your follow-up with Orthopedics. Keep the cast/splint clean and dry. It is easiest to sponge bathe, but if you must bathe, protect the cast/splint with a plastic bag high above the cast or splint and secure with adhesive tape. Do not submergethe cast in water at anytime. If the cast accidently gets wet, call the office immediately to have it replaced. A wet cast can cause severe skin and wound problems. Call your doctor ([phone]) if you develop: 1. Fever greater than [...] your intake of calcium should be at least 1200mg a day and your vitamin D intake should be at least 800 IU per day. 4. You should meet with your primary care provider in the next month to discuss the possibility that you may have osteoporosis. Contact your PCP for an appointment to discuss this as well as possibletreatment for this condition. Orthopedic Recommendations for secondary prevention of fragility fractures based on the National Osteoporosis Foundation guidelines (to be discussed with your PCP) 1. Consider Bone mineral density testing (DEXA) to confirm diagnosis of osteoporosis and determine disease severity and monitor response to treatment in appropriate patients after discharge (patientsover the age of 75 with multiple osteoporosis risk factors warrant treatment without BMD testing). 2. Do not start any bisphosphonate therapy for at least 6 months after your surgery. FOLLOW-UP APPOINTMENTS: 1. You will have follow-up appointments at [facility] as indicated in Future Appointment and Orders. You will have an xray prior to those appointments so please come to Radiology, desk 3T, 1 hour BEFORE your appointment for those x-rays. Future Appointments Date Time Provider Department Center 10/01/2018 10:00 AM [facility] DX ROOM 1 Xray [facility] 10/01/2018 11:00 AM Mary Ellison PA [facility] 3[facility] 11/08/2018 1:00 PM Abdirahman Enamorado MD Leb Neuro [facility] If you have questions or concerns: [...] Provider Department Dept Phone 10/01/2018 10:00 AM [facility] DX ROOM 1 XRay at [place] Arrive at: [facility] [phone] Please go to [facility] ([place] Location). 10/01/2018 11:00 AM Mary Ellison PA Orthopaedics at [place] Arrive at: [facility] [phone] 11/08/2018 1:00 PM Abdirahman Enamorado MD Neurology at [place] Arrive at: [facility] [phone] Future Orders Complete By Expires Durable Medical Equipment Order [EQ148 Custom] As directed Process Instructions: Scheduling Instructions: Comments: Non weight bearing bilateraly Questions: Name/Description of requested item: Drop arm commode Size requested: 20 Vendor Name/Contact information: [facility] Durable Medical Equipment Order [EQ148 Custom] As directed Process Instructions: Scheduling Instructions: Comments: Necessary for slide board transfer to wheelchair - non-weight bearing bilateral lower extremities bilat ORIF bilat foot fractures 09/16/2018 Questions: Name/Description of requested item: [facility] - Slideboard Size requested: 83 kg, 154 cm, Vendor Name/Contact information: Slideboard for transfers Durable Medical Equipment Order [EQ148 Custom] As directed Process Instructions: Scheduling Instructions: Comments: Needs ARABELLA required for discharge Questions: Name/Description of requested item: Slide board Size requested: Standard Vendor Name/Contact information: [facility] Durable Medical Equipment Order [EQ148 Custom] As directed Process Instructions: Scheduling Instructions: Comments: [address] [facility] [phone] (home) No relevant phone numbers on file. Diagnosis:Bilateral fractures both feet requiring surgery Non weight barring Patient's: Hgt: 5'1 Wgt: 183 VENDOR: [facility] [employer] Ordering: Drop arm commode needed ARABELLA is required for discharge Questions: Name/Description of requested item: Drop arm Commode Size requested: Standard Vendor Name/Contact information: [facility] Referral to Home Health - at DISCHARGE [[id number] CPT(R)] As directed Process Instructions: Scheduling Instructions: Comments: DOCUMENTATION FOR VNA SERVICES (INCLUDING THOSE PATIENTS WITH MEDICARE COVERAGE REQUIRING HOME VNA SERVICES AND/OR HOSPICE SERVICES) PATIENT'S LOCATION: [address] [facility] [address] (home) Cell: No relevant phone numbers on file. Mixer Operator Vacuum Pan Salt's Name: herself with 's assist In discussion with the attending physician, it is certified that this patient is under their care and that they, or a Nurse Practitioner,Clinical Nurse specialist or Physician City Clerk who is working directly with them, had a face to face encounter that meets the physician face to face encounter requirements with this patient on 09/17/18 The encounter with the patient was in whole, or in part, for the following medical condition, whichis the primary reason for home health care services: Bilat Foot Fx's In discussion with the provider, it is certified that, based on their findings, the following services are medically necessary for home health services. To provide the following care/treatments with the clinical findings supporting the need for services as follows: HOME CARE ORDERS: RN ORDERS:Assess pain control,skin integrity, vital signs, neurovascular status,cardiopulmonary status, nutrition, hydration, elimination, meds effectiveness and management; reinforce education re health issues, coping, sleep Anticoagulation: Lovenox 40 SQ daily for 30 days - reinforce teaching if necessary. Keep bilat lower extremity splints/dressings in place until Ortho f/u 10/01. Sutures to be removed by Ortho at f/u. PT ORDERS: Continue rehab for endurance, strength with mobility and transfers. Home safety evaluation. Home exercise program if appropriate. OT: assess and continue rehab for managing ADL's. Eval for PLANT CONTROL OPERATOR: HOME HEALTH CARE AGENCY: [facility] PHONE: [phone] FAX: [phone] Start of care: 09/21/18 FOR MEDICARE ONLY: (please delete this section if not Medicare) In discussion with the attending physician, it is certified that the clinical findings support thatthis patient is homebound because absences from home require considerable and taxing effort due to:decreased strength and endurance over all and non-wt bearing bilat LE's requiring use of assistive device(slide board, w/c, and drop arm commode. Please note that any additional orders needs or changes will need to be obtained from this patient's PCP: LILLY Gaitan [address] [facility] [id number] All A agencies which cover the area of patient's residence have been reviewed, either verbally irasema writing, and patient/family have chosen the home health care agency noted Questions: Agency name and contact information: [facility] Patient location post discharge: home What services [...] sufficiently resolved by the use of an appropriatelyfitted cane or walker. C) The patient's home provides adequate access between rooms, maneuvering space and surfaces for use of the manual wheelchair that is provided. D) [...] in the home during a typical day or the patient has a caregiver who is available, willing and able to provide assistance with the wheelchair. G) The beneficiary has a caregiver who is available, willing and able to provide assistance with the wheelchair. Questions: Vendor Name/Contact information: [facility] Primary Care Provider: LILLY Gaitan [phone] Discharge References/Attachments None documented in this encounter Discharge Instructions * Patient Instructions* Buffy Russell PA - 09/17/2018 6:58 AM EDT Orthopedic Surgery Discharge Instructions Activity level: 1. You are Non-weight bearing on your Bilateral leg. 2. Remember to use the walker or crutches at all times for protection and balance. 3. Remember to keep your Bilateral leg elevated as much as possible to decrease swelling and control pain. 4. If possible, you should wear DOLORES hose until you are seen in follow-up. These should be removed at least once per day to inspect your skin. [...] increase your intake of high protein foods andfluids. Driving: None until you are cleared to do so by your Orthopedic surgeon. You should not drive whileyou are on narcotic pain meds as they can affect your judgment and reaction time. Call your surgeonwith any questions/concerns. Medications: 1. The pain medication you are on can cause constipation so increase your intake of fluids and fiber while you are on them. The stool softener, Pericolace, that has been prescribed can also be taken to facilitate a bowel movement. You can also take an rgdd-ypb-aizhjus medication, Miralax if needed to combat constipation. 2. If you need a renewal on your narcotic pain medication, you need to give the Orthopedic clinic enough time to process your request. This can take up to three days, so plan accordingly. 3. Continue acetaminophen (Tylenol) 1,000mg every 8 hours as needed for pain. This can be effectivein controlling pain along with your other medications. [...] A dry dressing after this may protect yourclothing or decrease wound sensitivity. Cast/Splint Care: Keep the cast or splint in place until your follow-up with Orthopedics. Keep the cast/splint clean and dry. It is easiest to sponge bathe, but if you must bathe, protect the cast/splint with a plastic bag high above the cast or splint and secure with adhesive tape. Do not submergethe cast in water at anytime. If the cast accidently gets wet, call the office immediately to have it replaced. A wet cast can cause severe skin and wound problems. Call your doctor ([phone]) if you develop: 1. Fever greater than [...] your intake of calcium should be at least 1200mg a day and your vitamin D intake should be at least 800 IU per day. 4. You should meet with your primary care provider in the next month to discuss the possibility that you may have osteoporosis. Contact your PCP for an appointment to discuss this as well as possibletreatment for this condition. Orthopedic Recommendations for secondary prevention of fragility fractures based on the National Osteoporosis Foundation guidelines (to be discussed with your PCP) 1. Consider Bone mineral density testing (DEXA) to confirm diagnosis of osteoporosis and determine disease severity and monitor response to treatment in appropriate patients after discharge (patientsover the age of 75 with multiple osteoporosis risk factors warrant treatment without BMD testing). 2. Do not start any bisphosphonate therapy for at least 6 months after your surgery. FOLLOW-UP APPOINTMENTS: 1. You will have follow-up appointments at [facility] as indicated in Future Appointment and Orders. You will have an xray prior to those appointments so please come to Radiology, desk 3T, 1 hour BEFORE your appointment for those x-rays. Future Appointments Date Time Provider Department Center 10/01/2018 10:00 AM [facility] DX ROOM 1 Xray Le[facility] Rad [...] Sig Dispensed Refills Start Date End Date enoxaparin (LOVENOX) 40 mg/0.4 mL Syringe Inject [...] TO 2 CAPSULES THEREAFTER 5 09/05/2018 10/25/2018 GENNYAGLEZEQUIEL LOPEZLEO U-100 INSULIN 100 unit/mL (3 mL) pen [...] 04/12/2009 10/25/2018 documented as of this encounter Progress Notes * Tiana Lujan RN - 09/20/2018 3:13 PM EDT Patient discharged to home with VNA services. IV removed, site benign. My assessment remains unchanged from my previous assessment. Patient denies chest pain and shortness of breath. Discussed pain management with patient, pain tolerable. Patient medicated prior to discharge. Patient has all belongings. Patient received discharge summary and prescriptions. These were reviewed. All questions answered. Patient encouraged to call with questions or concerns. Patient discharged to home with family. Discharge Summary was faxed, RN called report to A. * Ivette Álvarez RN - 09/20/2018 1:10 PM EDT Office of Care Managment (OCM /Caremanger (CM)/ Discharge planning ) Service Ortho Pager # Check daily [facility] is unable to supply the commode and the slide board . This investment underwriter called several places andfound slide board at [facility] and [facility] as well that is being serviced . [...] discharge planning. Ivette Álvarez RN CM Pager [phone] * Ivette Álvarez RN - 09/20/2018 12:52 PM EDT The patient/inbound customer service representative has been provided a list of /DME vendors which serve their preferred geographic area. A letter describing our affiliations was reviewed with them and they were educated about their right to choose where referrals are placed. Patient requests referral to [facility] Expected date of discharge: 09/20/18 Referral routed to the Grain Broker for matching with agency/vendor and to provide any required information. Ivette Álvarez [facility] Beeper #[phone] * Ivette Álvarez RN - 09/20/2018 11:14 AM EDT Office of Care Managment (OCM /Caremanger (CM)/ Discharge planning ) Service Ortho Pager # check daily Patient is medically ready to go . Made call to [facility] to verify delivery of Wheelchair , slide board and drop arm commode for today (family said they can pick the items up on the way home ) Thalia from [facility] is checking with [facility] office to make sure items are available for them. Plan: CM will continue to follow for coordination of care and to facilitate discharge planning. ? Ivette Álvarez RN CM Pager [phone] * Ori Santos MD - 09/20/2018 5:39 AM [...] 50% intravenous solution 25- 50 mL OR glucagon (human recombinant) injection SolR 1 mg ??? POCT [...] Pain well controlled. Plan to discharge home [facility] per PT recommendations. Discharge likely today, dependent on DME delivery to [facility]. Activity: NWB BLE. Strict elevation in splints. Closure: Sutures (remove 10-14 days) Dressing: DSD, splints. Drain: None Anticoagulation: Lovenox for 30 days Antibiotics: Empiric Ceftriaxone/Azithromycin for suspected CAP Consults: Medicine, Neuro Dispo: Like home today Follow-up: As scheduled Ori Santos MD 09/20/2018 Future Appointments Date Time Provider Department Center 10/01/2018 10:00 AM [facility] DX ROOM 1 Xray [facility] 10/01/2018 11:00 AM Mary Ellison PA Leb Ortho 3C [facility] Associated attestation - Aparna Reed MD - 09/22/2018 6:08 AM EDT Agree with resident note. NWB BLE, slideboard transfers only. Michelle Reed MD Department of Orthopaedics 09/22/18 * Alea Cruz RN - 09/19/2018 12:08 PM EDT 0930a CM spoke with Med Team re pt DC today( [id number]). Pt to dc Thursday * Sanket Freeman MD - 09/19/2018 5:51 AM [...] 50% intravenous solution 25- 50 mL OR glucagon (human recombinant) injection SolR 1 mg ??? POCT [...] Time Provider Department Center 10/01/2018 10:00 AM [facility] DX ROOM 1 Xray [facility] 10/01/2018 11:00 AM Mary Ellison PA [facility] [address] [place] [address] CLIN Associated attestation - Aparna Reed MD - 09/22/2018 6:08 AM EDT Agree with resident note. NWB BLE, slideboard transfers only. Michelle Reed MD Department of Orthopaedics 09/22/18 * Anusha Olsen RCP - 09/18/2018 10:56 PM EDT Patient refused NIV tonight. This is the 5th night in a row she has refused her NIV for LORRI. Machine was removed from her room at this time. * Danielle Grove MD - 09/18/2018 6:02 AM EDT ORTHOPAEDIC SURGERY INPATIENT PROGRESS NOTE Patient Name: Jenae La Age: 53 y.o. Surgery/Issue: ORIF of bilateral foot fractures Attending: Dr. Reed Date of surgery: 09/16/2018 SUBJECTIVE / INTERVAL HISTORY: No acute events, afebrile. Was able to complete slide board transfers with PT yesterday. Pain underbetter control over past 24 hours. Urinating on [...] 50% intravenous solution 25- 50 mL OR glucagon (human recombinant) injection SolR 1 mg ??? POCT [...] Medicine, Neuro Dispo: rehab Follow-up: TBD. DANIELLE GROVE MD 09/18/2018 No future appointments. Associated attestation - Aparna Reed MD - 09/22/2018 6:08 AM EDT Agree with resident note. NWB BLE, slideboard transfers only. 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 Patient had routine EEG completed today that did not show any epileptiform activity. I think at this time it is still difficult to say for [...] prolonged ambulatory EEG at that time and discuss other anti-seizure medications. She is safe to [...] - PGY-3 General Neurology Consults Team Pager #[phone] 09/17/18 Associated attestation - Jose Swan MD - 09/17/2018 4:41 PM EDT I have seen and examined Jenae La with the neurology team on 09/17/2018 and agree with the assessment and plan as below. Face twitching. 53 Y F with history of DJD spine, DM, fibromyalgia being seen by Neurologist at [facility] Episodes of left sided facial twitching Stopped taking gabapentin recently due to side effects. Low suspicion for these being seizures. AEDs not needed at this time Recommended lower doses of gabapentin which she doesn't wish to take. Outpatient neurology followup Jose Swan MD Department of Neurology [facility] * Sanket Freeman MD - 09/17/2018 6:04 AM [...] 50% intravenous solution 25- 50 mL OR glucagon (human recombinant) injection SolR 1 mg ??? POCT [...] Michelle Reed MD Department of Orthopaedics 09/17/18 * Davin Ann, ENGLISH AS A SECOND LANGUAGE INSTRUCTOR - 09/16/2018 11:22 PM EDT Pt refused NIV this evening. * Chad Campo MD - 09/16/2018 4:48 PM [...] 50% intravenous solution 25- 50 mL OR glucagon (human recombinant) injection SolR 1 mg ??? POCT [...] Michelle Reed MD Department of Orthopaedics 09/17/18 * Aruna Calvo RN - 09/16/2018 3:21 PM EDT Pt arrived to floor from PACU after ORIF bilateral feet. Pt alert and oriented x4. Pt reports pain 08/01. Pt denies any chest pain, shortness of breath, dizziness or nausea. Refer to doc flow sheets for full assessment. Les in room at bedside. Patient oriented to room with call valderrama within reach. Will continue to monitor. * Lucina Escalante RN - 09/16/2018 10:57 AM EDT Images from the original note were not included. Patient Name: Jenae La Patient Age: 53 y.o. Birthdate: 1965 Admit date: 09/14/2018 Attending Physician: Javad Urban MD .. Skin: * Aries Lyon MD - 09/16/2018 8:31 AM EDT Internal Medicine Consult Note (#[id number]) Progress Note Patient info: Name: Jenae La : 1965 PCP: LILLY Gaitan PCP phone number: [phone] Date of Admission: 09/14/2018 ( Hospital Day [...] Orthopedic Surgery Service as a transfer from [facility] for operative management of [...] drainage;no streak formation;no palpable cord;no pain;no warmth;no redness;no swelling 09/15/2018 10:57 PM Number of days: 0 Medications: ??? [Jul] aspirin 81 mg Oral BID ### ??? [Jul] polyethylene glycol 17 g Oral BID ### ??? [Jul] senna-docusate 2 tablet Oral BID ### ??? [Jul] acetaminophen 1,000 mg Oral Q8H [facility] ### ??? [Jul] levETIRAcetam 1 g Intravenous 2 times per day ### ??? [Jul] cefTRIAXone 1 g Intravenous Q24H ### ??? [Jul] azithromycin 500 mg Intravenous Q24H ### ??? [Jul] simvastatin 20 mg Oral QPM ### ??? [Jul] insulin lispro 1-4 Units Subcutaneous Q4H DAYANA ### [Jul] Medication Non-Formulary Request, [Jul] oxyCODONE, [Jul] ipratropium-albuterol, [Jul] Glucose 40% oral gel OR [Jul] dextrose OR [Jul] glucagon (human recombinant), [Jul] ondansetron, [Jul] prochlorperazine ??? [MAR Hold] sodium chloride 0.9% 1,000 mL (09/15/18 1410) Anti-Infectives Dose Route Start Date Notes Labs: CBC: Recent Labs 09/15/18 034 WBC 11.2* HGB 9.6* HCT 29.5* PLATELET 244 NEUTROABS 7.24* Chemistry: Recent Labs 09/15/18 034 NA 142 K 3.6 CL 113* CO2 20* BUN 18 CREATININE 0.74 GLUCOSE 135 ANIONGAP 9 Recent Labs 09/15/18343 CALCIUM 7.9* LFT's: No results for input(s): BILITOT, BILIDIR, ALBUMIN, ALKPHOS, ALT, AST in the last 7068 hours. Coags: Recent Labs 09/15/18343 PT 12.0 INR 1.0 Cardiac enzymes: No results for input(s): TROPONINT, CK, PROBNP in the last 7068 hours. Endocrine: No results for input(s): TSH, CORTISOL in the last 7068 hours. Invalid input(s): LNUIFLQCHOH8B Heme: No results for input(s): LDH, HAPTOGLOBIN, URICACID in the last 168 hours. ABG: ABG (Arterial Blood Gas) No results found for: PHART, PO2ART, XCB7FGE, FBQ8DCS Microbiology: Site Date and Time Obtained Result [...] Orthopedic Surgery Service as a transfer from [facility] for definitive operative management [...] day course of antibiotics (to complete today) wit h discontinuation of her stress dose steroids (stopped yesterday). She has no O2 requirement, no SOB, reports improved cough which is non-productive. The patient has no neurologic deficits and it is unclear if she demonstrated seizure-like activity during her presentation at [facility], thus would recommend consulting Neurology to determine the need ace EEG to rule out sub-clinical seizure and determine the need to continue keppra. The patient's revised cardiac risk index is a Class I risk (0 points) with a 3.9% 30 day risk of , KS, or cardiac arrest. No further cardiac work up is recommended prior to surgical intervention. The patient's ACS NSQIP Surgical Risk Calculator demonstrates the patient has a 7.9% (below average) risk of serious complication, a 9.7% (below average) [...] Consult Attending. Further adjustments to the plan will be reflected in their addendum. Consult service will continue to follow patient. X?? Recommendations are above, please page if further consultation required. Aries Lyon MD, PGY-3 09/16/2018 Medicine Consult # [id number] Associated attestation - Chris Stahl DO - 09/16/2018 4:10 PM EDT Attending staff follow-up documentation Please see Dr. Lyon's note for details of the 24hr events, current issues and clinical course. I have discussed, reviewed and agree with the documented history , physical findings, Assessment and Plan of care. I have [...] Stahl DO Internal Medicine 09/16/2018 4:10 PM * Sanket Freeman MD - 09/16/2018 5:55 AM [...] feet. Did have some nausea after taking anti-epilepticmedication. Has been voiding very frequently, though denies [...] female with complex bilateral foot injuries. Plan forOR today vs tomorrow pending scheduling availability. [facility] - Neuro consult today - Remain NPO for possible OR today - UA today - NWB B/l LE - Pain control: Oral multimodal pain medication - Discharge planning: likely rehab per PT - F/u TBD Sanket Freeman MD PGY-2 Orthopaedics * Davin Ann, ENGLISH AS A SECOND LANGUAGE INSTRUCTOR - 09/15/2018 11:00 PM EDT Pt had Nausea, NIV held this evening. * Kathrin Madsen RN - 09/15/2018 2:05 PM EDT Based on discussions with the multi-disciplinary healthcare team, the patient would benefit from snf/swing/acute level of care at discharge. ?? I have met with the patient/inbound customer service representative to discuss discharge planning needs. I have provided the [facility], Office of Care Management letter from the [employer] pertaining to rehab referrals. I have also provided a letter describing our affiliations within the [facility] and educated them about their right to choose where referrals are placed. ?? I reviewed the different levels of rehab including SNF, swing, acute and LTAC with the patient/inbound customer service representative. ?? The patient/inbound customer service representative has been provided a list of facilities within their preferred geographic area. ?? I have requested that the patient/inbound customer service representative provide at least three choices for referral. ?? The patient/inbound customer service representative have requested referrals to: 2.[facility] [address] [place] [address] ?? [phone] 1. [facility] [address] [place] [address] ?? [phone] ?? Expected date of discharge: 09/17/18 Note routed to [employer] who will communicate referrals to facilities and provide any required information. * Noy Zamora - 09/15/2018 6:14 AM EDT ORTHOPAEDIC INPATIENT [...] female with complex bilateral foot injuries. She would benefit from operative intervention of her b/l feet. Plan for OR today v. Tomorrow. - NWB B/l LE - Pain control: Oral multimodal pain medication - Discharge planning: home vs rehab per PT - F/u TBD NOY ZAMORA MD PGY-4 Orthopaedics * Clotilde Godinez RCP - 09/15/2018 4:15 AM EDT Respiratory Therapy NIV Note NIV Settings: Resmed Vauto Resp: 18 SpO2: 95 % Laboratory: No results found for: PHART, ECD9QQX, PO2ART, KXT8YJG, BEART Assessment: Called to set pt up on NIV this evening. Pt set up on NIV via Vauto titrating mode. Pt did not use NIV due to feeling nauseas overnight. Pt remained on RA with an SpO2 of 95-97%. Plan: Encourage pt to use NIV for nocturnal use as tolerated. CLOTILDE GODINEZ RCP * Nell Fitch RN - 09/14/2018 7:05 PM EDT Pt arrived to floor from outside hospital. Pt alert and oriented x4. Pt reports pain 7/10. Pt denies any chest pain, shortness of breath, dizziness or nausea. Refer to doc flow sheets for full assessment. Patient oriented to room with call valderrama within reach. Kp mahajan. Carl GLYNN notified. Will continue to monitor. documented in this encounter H&P Notes * Sanket Freeman MD - 09/16/2018 8:42 AM EDT 24-HOUR UPDATE Jenae La's history and physical exam have been reviewed and completed. There has been no interval change from that of the pre-operative history and physical exam done within the last 30 days. Proceed with ORIF bilateral foot fractures Sanket Freeman MD PGY-2 P. [phone] 09/16/18 8:42 AM * Renata Hill MD - 09/15/2018 8:49 AM EDT Internal Medicine Consult Note Patient Name: Jenae La Service: Orthopedic Surgery Responsible Attending: Dr. Urban PCP: LILLY Gaitan PCP phone #: [phone] Chief Complaint: Foot pain History of Present Illness: Jenae La is a 53 y.o woman with HTN, HLD, Type II DM, LORRI on CPAP,fibromyalgia with chronic opioid use, and GERD who was admitted to the Orthopedic Surgery Service as a transfer from [facility] for operative management of bilateral complex foot fractures s/p trauma (dropping firewood on her feet) on the evening of 09/11/18 causing bilateral immediate pain, swelling, andbruising making it difficult to ambulate and leading to falls c/b striking her head multiple times.It was with these symptoms that she presented to [facility] on 09/12/18. During her initial presentation in the [facility] ED, the patient reported instances of trembling and fecal incontinence. She was noted to be confused with lip and unilateral arm twitching. CT head was negative. CT C-spine was negative. CTchest demonstrated 6.8mm ground glass nodule in the RUL and b/l ground glass opacities. An LP was performed for suspicion of meningitis that was reportedly negative, CSF cultures were reportedly negative. At [facility], she was found to [...] transfer) and multiple bilateral foot fractures for whichOrthopedic Surgery was consulted. Her mental status reportedly returned to her baseline within 24 hours of admission. She was admitted to [facility] from 09/12/18 - 09/14/18. Upon arrival at [facility] on 09/15/18,the patient noted moderate bilateral pain in her [...] Illicits: Denies Living Situation: Lives with in [place] Vitals: Last value Range last 24 hrs [...] no petechiae Laboratory: CBC: Recent Labs 09/15/18 034 WBC 11.2* HGB 9.6* PLATELET 244 Chemistry: Recent Labs 09/15/18 034 NA 142 K 3.6 CL 113* CO2 20* BUN 18 CREATININE 0.74 GLUCOSE 135 Recent Labs 09/15/18 034 CALCIUM 7.9* LFT's: No results for input(s): BILITOT, BILIDIR, ALBUMIN, ALKPHOS, ALT, AST in the last 7068 hours. Coags: Recent Labs 09/15/18343 PT 12.0 INR 1.0 Cardiac enzymes: No results for input(s): TROPONINT, CK in the last 7068 hours. Endocrine: No results for input(s): TSH, CORTISOL in the last 7068 hours. Invalid input(s): [id number] Heme: No results for input(s): LDH, HAPTOGLOBIN, [...] Orthopedic Surgery Service as a transfer from [facility] for definitive operative management [...] demonstrated seizure-like activity during her presentation at [facility], thus would recommend consulting [...] a 3.9% 30 day risk of , KS, or cardiac arrest. No further cardiac work up is recommended prior to surgical intervention. The patient's ACS NSQIP Surgical Risk Calculator demonstrates the patient has a 7.9% (below average) risk of serious complication, a 9.7% (below average) [...] on bilateral lower extremities, maintain strict elevation, posterior slab splints in place - Patient is NPO [...] Consult Attending. Further adjustments to the plan will be reflected in their addendum. The Medicine Service will continue to follow the patient Renata Hill MD Internal Medicine, PGY- 3 Medicine Consult Pager #[phone] Associated attestation - Chris Stahl DO - [...] Plan of care. I have examined the patientmyself and reviewed all labs and studies personally. Additions to the history, physical, assessment and plan include the following: Ms. Jenae La is a 53-year-old female who presented as a transfer from [facility] for operative management of the complex foot fractures due to trauma on 09/11/2018. Her hospital course at [facility] was complicated by an ICU admission due to community-acquired pneumonia, as well as possible focal seizures and postconcussive syndrome. Here at [facility] patient has been clinically stable from pulmonary [...] to follow along with you. Chris Stahl, Internal Medicine 09/15/2018 3:25 PM * Noy Zamora - 09/15/2018 6:27 AM EDT The patient's history and physical exam have been reviewed and completed. There has been no interval change from that of the pre-operative history and physical exam done within the last 30 days. NOY ZAMORA MD * Javad Urban MD - 09/15/2018 1:35 AM [...] the orthopaedics service as a transfer from [facility] for operative management of bilateral complex foot fractures. Mrs. La reports dropping a piece of firewood on her feet on the evening of 09/11/2018. This resulted in immediate pain in both of her feet, later accompanied by swelling and bruising. Over the next day she had multiple falls that she attributes to significant foot pain with ambulation. She struck her head multiple times, leading her to present to [facility] on 09/12/2018 for evaluation. Initial work-up at [facility] revealed sepsis secondary to suspected community- acquired pneumonia, mild acute exacerbation of COPD, a closed head injury with postconcussive syndrome, multiple bilateral foot fractures, and MANUEL, resulting in hospital admission. Upon presentation to the [facility] ED, her and cristian reported instances of trembling and fecal incontinence. She was observed to be confused andhave unilateral arm and lip twitching in the ED. A lumbar puncture was performed for suspicion of meningitis, but this was reported to be negative. Mrs. La was admitted to the ICU, where empiricazithromycin and Rocephin, IV steroids, nebulizer treatments, empiric [...] no active bleeding observed. General Surgery at [facility] evaluated the patient, and felt no further action was required besides outpatient follow up. Upon arrival to [facility], Mrs. La reports moderate pain in her feet, right worse than left. Her pain is no worse than it has been the preceding few days. She denies having pain in any other location. She endorses shortness of breath when lying flat and denies having any chest pain, nausea, vomiting, fevers, chills, tingling or numbness. On arrival a Coppola catheter was in place and bilateral posterior [...] Situation: Lives with and multiple pets in [place], [place]. Review of Systems: As per HPI, [...] including IDDM type 2, LORRI on CPAP, andfibromyalgia on chronic opiates presents as a direct admit to the Orthopaedics service from [facility] for definitive management of bilateral complex foot fractures after dropping log on 09/11/18. Patent's condition further complicated by diagnosis of community acquired pneumonia, COPD exacerbation, question of seizure activity, and hemoccult positivity. Patient stable and comfortable on arrival. Bilateral posterior slab splints replaced to lower extremities. Feet elevated on multiple pillows and iced in attempt to reduce swelling. Empiric Azithromycin and Ceftriaxone continued for suspected CAP. Steroids continued [...] care with the primary author and reviewed the accompanying imaging. I have reviewed and agree with [...] Surgery documented in this encounter Procedure Notes * Jose Singer MD - 09/17/2018 9:30 AM EDTAssociated Order(s): EEG AWAKE, ASLEEP, DROWSY [facility] Department of Neurology Inpatient EEG Report Name of the Patient: Jenae La Date of : 1965 Date of Service: 09/17/2018 Referring physician: Dr. Abdirahman Enamorado BRIEF HISTORY: Jenae La is a 53 y.o. patient with episodes of tremors at home and witnessed facial and arm twitching at [facility] (witnessed by nursing). Also [...] mg Oral Q3H PRN Sanket Freeman MD 15 mg at 09/17/18 0844 ??? potassium chloride (K-DUR/KLOR-CON) [...] tablet 2 tablet Oral BID Sanket Freeman MD 2 tablet at 09/17/18 0844 ??? sodium chloride 0.9% infusion 1,000 mL Intravenous Continuous Sanket Freeman MD 100 mL/hr at09/16/181999 1,000 mL at 09/16/181999 ??? acetaminophen (TYLENOL) tablet 1,000 mg 1,000 mg Oral Q8H DAYANA Sanket Freeman MD 1,000 mg at 09/17/18 0525 ??? [...] injection 1-4 Units 1-4 Units Subcutaneous Q4H Giana Jamison MD 1 Units at 09/15/18 2305 ??? ondansetron (ZOFRAN) injection 4 mg 4 mg Intravenous Q8H PRN Sanket Freeman MD 4 mg at 09/16/18 0721 ??? prochlorperazine (COMPAZINE) injection 10 mg 10 mg Intravenous Q6H PRN Sanket Freeman MD 10 mg at 09/15/18 2051 METHODS: A 21 channel digitized electroencephalogram was performed in the [facility] Clinical Neurophysiology Laboratory. The 10/20 international system of electrode placement was used and bipolar and referential electrode montages were recorded. In addition to EEG the patient was monitored for EKGand lateral/vertical eye movements. Video was recorded during the session. The duration of the recording was 30 minutes. SIGN POSTER'S REPORT: Performed by: RR/CM Patient was not [...] theta range frequencies. There were no significant asymmetries of background activity noted. [...] Angel MD Clinical Neurophysiology Fellow Personal Pager #[phone] Epilepsy Neurology #[phone] Neurology Attending I have personally reviewed the EEG, and I agree with the details as written. The above report was formulated in discussion with me at the time of EEG reading, and I agree with it as documented. Jose Singer MD [place] [address] Pager: [phone], #[phone] Email: [email or web address] documented in this encounter Miscellaneous Notes * Consult Note - Dimitrios Valle RN - 09/20/2018 11:55 AM EDT TOBACCO DEPENDENCE TREATMENT NOTE DATE: 09/20/2018 NAME: Jenae La : 1965 S: I don't need anything from you. The only thing that works for me is this [nicotine inhaler] andyou won't give me one, so I'm done. I'll ask my doctor to get them for me. I'm leaving today. O: Referral received. Attempted to meet with patient to discuss her tobacco use and assess her readiness to quit. She is not interested in receiving [facility] Tobacco Cessation packet. A: Pt refused consult. P: Encouraged patient to reach out to PCP for nicotine inhaler prescription. Dimitrios Valle, MSN, RN-, [facility] Tobacco Navy Material Inspector [facility] Pager #[phone] * Plan of Care - Stacey Duenas RN [...] provided, if applicable: CPG GOAL OUTCOME EVALUATION: * Plan of Care - Mai Bose RN [...] on, eyes on. Surveillance [continuous indirect monitoring]: Masimo, purposeful rounding. Patient-specific fall prevention interventions for sensory deficits provided, if applicable: [X] Yes, glasses. * Plan of Care - Fely Freeman RN [...] Pt sliding from chair, to commode, to bed, etc. Tolerating well. Pt had BM x2. Pt on and off bed silva throughout the night. Pain controlled with around the clock dosing and ice. Pt rested for a few hours during the night. Pt educated about lovenox injection. Feet elevated throughout the night. Possible d/c today. Patient progressing towardsd/c goals appropriately at this time. Patients pain [...] Handling Outcome: Ongoing (Interventions Implemented as Appropriate) 09/18/18 1848 09/18/182013 Restraint Interventions Safety Promotion/Fall Prevention -- activity [...] (CPG) Outcome: Ongoing (Interventions Implemented as Appropriate) 09/18/18 1821 Skin Integrity Impairment, Risk/Actual Skin Integrity Impairment, Risk/Actual: Related Risk Factors surgery/procedure;edema;immobility Signs and Symptoms (Skin Integrity Impairment) edema Goal: Skin Integrity/Wound Healing Patient will demonstrate the desired outcomes by discharge/transition of care. Outcome: Ongoing (Interventions Implemented as Appropriate) 09/18/18 1821 Skin Integrity Impairment, Risk/Actual (Adult) Skin Integrity/Wound Healing making progress toward outcome * Plan of Care - Mai Bose RN [...] with PO Dilaudid. Assisted OOB to chair with supervision while pt used slide and maintained NWB to BLE. Pt voiced she uses insulin pen at home and she has the knowledge on how to administer subcutaneous injections, reviewed with pt how to selfadministered her insulin at lunch and dinner, pt [...] on, eyes on. Surveillance [continuous indirect monitoring]: Masimo, purposeful rounding. Patient-specific fall prevention interventions for sensory deficits provided, if applicable: Yes, glasses. * Plan of Care - Fely Freeman RN [...] Skin Integrity/Wound Healing making progress toward outcome * Plan of Care - Dede Lindsay - 09/17/2018 6:59 PM EDT Problem: Patient Care Overview Goal: Plan of Care Review 09/17/18 1838 Coping/Psychosocial Plan Of Care Reviewed With patient Plan of Care Review Progress improving OUTCOME EVALUATION NOTE: OUTCOME SUMMARY: Patient resting between care, alert and oriented x 4, Patient denies chest pain and SOB. Complainedof pain 10/10 in right grand toe and foot, controlled with PRN PO Dilaudid see MAR. Patient has BLEace wrap dressings, clean dry and intact. Denies numbness and tingling. Patient urinated multiple times 100-200ml with Highest PVR of 763. Patient was straight cath x2 per orders, 700ml, 800ml. VSS, will continue to monitor. PLAN MOVING FORWARD: D/C planning, pain management, continue voiding INDIVIDUALIZED FALL PREVENTION INTERVENTIONS: Patient-specific fall risk factors per assessment: [current deficits]: Generalized weakness, Non-weight bearing BLE Assistance [level of assistance required for transfers and ambulation]: Bedrest,Slide board to chair and comode, 2 assist Supervision [direct monitoring required during toileting and ADLs]: SBA Surveillance [continuous indirect monitoring]: Kp Patient-specific fall prevention interventions for sensory deficits provided, if applicable: [X] Yes * Care Management - Dimitrios Moser RN - 09/17/2018 12:31 PM EDT Chart reviewed and met with pt and . Pt looks askew in bed with bilomar LE's elevated on pillows. I offered to reposition her and she said she was actually comfortable and waiting to get on the bedpan again. Pr worked with MARIE Aguilar and PAT Olivares this am and did well with her transfers on and off the drop arm commode and W/C with elevating legs using a slide board. Pt also needs a ramp builtto get her up the two steps into her house and her is going to build it this weekend. Pt requests [facility] for her DME. I have spoken with Thalia from the [place] office and she states shecannot get this DME on a Thu afternoon for Sat am but can do this for a Mon d/c. Pt states there jessy branch in [facility] that she has used in the past. 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 Pt requests [facility] if possible. I advised pt to call in all the favors with her friends to visit and bring lunch! Or dinner! * Plan of Care - Lauren Perales PT - 09/17/2018 11:44 AM EDT Physical [...] NO xxx Lauren Perales, PT, DPT Pager: [phone] Inpatient Physical Therapy 2017 PT Evaluation Code Rationale: ?? Diagnosis & Pertinent Co-Morbidities, personal factors, and present illness affecting Plan of Care: Patient Active Problem List Diagnosis Code ??? [...] complexity based on pt's functional performance as outlinedin this evaluation. 09/17/18 1144 Rehab Evaluation Document Type evaluation Total Evaluation Minutes, Physical Therapy 50 (x1 Mod Eval, x1 TEF) Patient Effort excellent Symptoms Noted During/After Treatment increased pain General Information Patient Profile Review yes Patient/Family/Caregiver Comments/Observations I'm in 03/03 pain they need to do something General [...] home. 2 MELISSA w/ out rails but husbandwill be installing ramp today/tomorrow. Shower stall with [...] WFLS except LEs not formally assessed 2/2 splinting. Able to wiggle toes b/l with L > R General Assessment General Manual Muscle Testing Assessment no strength deficits identified Mobility Assessment/Training Additional Documentation Bed Mobility Assessment/Treatment (Group);Transfer Assessment/Treatment (Group);Wheelchair Training/Management (Group) Bed Mobility Assessment/Treatment Scoot/Bridge [place] (Bed Mobility) conditional independence Mehwot-wd-Cjh [place] (Bed Mobility) conditional independence Piu-ur-Onwqoh [place] (Bed Mobility) conditional independence Safety Issues (Bed Mobility) decreased use of legs for bridging/pushing Impairments (Bed Mobility) pain;ROM (range of motion) decreased Comment (Bed Mobility) incr time/effort to/from EOB but no physical assistance, NWB maintained throughout, good SLR b/l LEs Transfer Assessment/Treatment Bed-Chair [place] (Transfers) supervision required;conditional independence (initial supervision progressing to ind) Fic-Vmnpu-Sgb Assistive Device (Transfers) slide board [place] (Toilet Transfers) supervision required;conditional independence Assistive Device [...] Disposition home with home health;home with assist * Plan of Care - Ori Bates, OT - 09/17/2018 11:43 AM EDT Occupational [...] and participation restrictions in the following areas ofoccupation: dressing, bathing, grooming, toileting, mobility, transferring, rest/sleep, home management, roles/routines, leisure, driving, community mobility, and social participation. However, despite the deficits listed above pt demonstrates the ability to perform bed mobility, toileting, LB dressing, and funcitonal mobility w/ the use of slide board, bedside commode, and a wheelchair w/ elevating leg rests. Pt educated on DME needed for safe discharge home, modified technique LB dressing, safety, and bathing. Anticipate that pt will return home with [...] with assist, home with home health(PT) Pager: [phone] Ori Bates OT 09/17/2018 Occupational Therapy Rehabilitation Department 2017 [...] moderate complexity using standardized patient assessment instrument and measurable assessment of functional outcome. 09/17/18 1143 Rehab [...] Problem S/P ORIF bilateral foot fractures, 09/16/18 (Brianna) Hearing Precautions/Limitations WFL Precautions/Restrictions fall;weight bearing Precautions Comments NWB BLE Treatment Number OT 1 Living Environment Patient population Adult Living Environment Living Environment Comment Pt lives w/ her in a home w/ 2 MELISSA however her will be building a ramp tonight. 1 level once in, bathroom no handicap accesible. Pt plans to sleep in flat bed vs recliner love seat. works however 15/12 assist [...] pain;ROM (range of motion) decreased;strength decreased Scoot/Bridge [place] (Bed Mobility) conditional independence Qoddnf-mm-Unt [place] (Bed Mobility) conditional independence Iqd-ns-Xdlizj [place] (Bed Mobility) conditional independence Comment (Bed Mobility) Pt performeed bed mobility w/ increased time and pain. 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 Toileting Assessment/Training Position (Toileting) sitting [place] Level (Toileting) conditional independence Impairments (Toileting) ROM [...] home with assist;home with home health (PT) * Plan of Care - Fely Freeman RN [...] cast+MARICRUZ wrap to BLE's, elevated on pillows. Coppola remains in tact and draining adequately. Pain [...] assistance with ADL's Surveillance [continuous indirect monitoring]: Coppola output, Masimo, Purposeful Rounding, Bedside Report Patient-specific [...] Skin Integrity/Wound Healing making progress toward outcome * Consult Note - Abdirahman Enamorado MD - [...] CPAP at home) who presents as a transfer to the orthopedic service from [facility] for bilateral complex foot fractures. Per discussion with the consulting provider, patient was initially admitted to [facility] for bilateral foot fractures. This was in the setting of multiple falls in the previous days leading up to her admission. She was also noted to strike her head multiple times during these falls. 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 Discussion with Jenae and her significant other about her initial presentation makes us less concerned for seizure activity. However, it is hard to say what the nurses at [facility] actually saw but they describe twitching of the jaw and hand (they do not note if it was unilateral or contralateral to each other). She is on a rather large dose of keppra for someone who was newly diagnosed with seizure activity. In her case we believe we can hold her Keppra, starting tomorrow morning (09/17) and place her on EEG (likely routine if she is to be [...] - PGY-3 General Neurology Consults Team Pager #[phone] 09/16/18 Associated attestation - German Gu III, MD - 09/17/2018 7:43 AM EDT Neurology Attending Attestation I saw and evaluated Jenae La with Dr. Enamorado, neurology resident. I have reviewed themedical records and the patient's history and I agree with the details as written. My physical examination confirms the findings. The assessment and plan were formulated in discussion with me and I agree with them as documented. German Gu III, MD Pager: [phone] 7:42 AM 09/17/2018 * Op Note - Aparna Reed MD - 09/16/2018 2:02 PM EDT [facility] Operative Note Patient Name: Jenae La : [id number] MR#: [id number] Case Date: 09/16/2018 Surgeon: Surgeon(s) and Role: [...] 2nd metatarsal fracture, left 3rd metatarsal fracture, tazg1am metatarsal fracture, left cuboid fracture. Procedure(s) (LRB): ORIF [...] 53-year-old lady with bilateral foot injuries. Please see previously dictated operative note for further indication details on the left foot procedure details. Procedure Description: Preoperative steps as described in previously dictated note. We placed a thigh tourniquet, and elevated to 250 mmHg. He remained there for 78 minutes. To address the right footfractures, we began with the Lisfranc injury. We made an incision between the first and second metatarsal bases, dissecting down to the joint. At the first tarsometatarsal joint, the joint was subluxed laterally. This was reduced, and fixed with a K wire. We then addressed the second tarsometatarsal joint. We used a snoes-en-pedtf clamp to reduce it, and then fixed this reduction with a K wire. We assessed our reduction of the first and second tarsometatarsal joints, and found the reduction to be adequate under fluoroscopy. We then placed a cortical screw in a dorsal to plantar approach to secure the dorsal tarsometatarsal ligament, which had avulsed from the [...] to open up the fracture by lifting apiece of the articular surface. We then used a [place] to bring the impacted articular surface down to an appropriate position. This was secured with a K wire. Bone graft was then placed into the void.The removed bone piece from before was placed back into position and secured with a K wire. A 2.0 mm locking plate was placed over this fracture, and position confirmed with fluoroscopy. The K wires were removed, and incision was irrigated and closed in [...] and closing). ?? Aparna Reed MD 09/17/18 * Op Note - Aparna Reed MD - 09/16/2018 1:54 PM EDT [facility] Operative Note- Left foot This patient underwent bilateral procedures. This operative note is for the left foot. Patient Name: Jenae La : [id number] MR#: [id number] Case Date: 09/16/2018 Surgeon: Surgeon(s) and Role: [...] 2nd metatarsal fracture, left 3rd metatarsal fracture, tzbr4yh metatarsal fracture, left cuboid fracture. ?? Procedure(s) (LRB): [...] fractures and dislocations. She was seen at [facility] and transferred to [facility] for further care. We discussed the risks [...] agreed to proceed. Patient received preoperative IV antibioticsfor prophylaxis. See separately dictated operative note for right foot procedures. On the left foot, we began by making a 2 cm incision between the second and third metatarsals distally. We continued through subcutaneous tissues using tenotomy scissors. The second toe extensor tendons were identified and mobilized. We approach the third metatarsal from the lateral aspect of the ex tensors. The third metatarsal fracture was exposed using a [place]. A ovfmj-do-zlqdr clamp was used to control the distal fragment. A K wire was passed in an antegrade fashion through the second metatarsal head and out through the skin. The fracture was then reduced under direct visualization and thesame K wire was advanced in a retrograde fashion down the intramedullary canal of the third metatarsal. X-rays confirmed appropriate alignment. The wire was cut near the skin. Attention was then turned to the second metatarsal fracture. We approach this to the medial side of the second toe extensors. Fracture was exposed using a [place]. A rxqgi-rt-xdimm clamp was used to control the distal [...] Vicryl was used to close the subcutaneous tissue.Nylon was used to close the skin. Due [...] metatarsal. We made a 4 cm incision startingover the fourth TMT joint and extending distally [...] cortical screws into the metatarsal shaft. We c onfirmed the alignment radiographically and were happy. Even after fixation of the fracture, the fourth TMT joint remained unstable. Given this, we elected to [...] case. The wounds were dressed with Xeroform, gauze, ABDs. Pins were wrapped with Xeroform and covered with gauze. A well-padded splint was placed. Thetourniquet was let down. The patient was transferred to the hospital bed and transferred to the recovery room having suffered no apparent untoward event. Post-operative plan: Nonweightbearing bilateral lower extremities. Lovenox for DVT prophylaxis. Work with PT/OT and likely rehab planning. Infection Bundle used? N/A Implant Name Type Inv. Item Serial No. Scale Balancer Lot No. LRB No. Used Action PIN,KWIRE,TROC 1 ED,NS,[id number] ([id number]) (AutoReq) - [id number] IMPLANTS PIN,KWIRE,TROC 1 ED,NS,[id number] ([id number]) (AutoReq) [facility] [place] 1 Implanted and Explanted SCREW,CRTX,STAP,T8,2.4X16MM ([id number]) - [id number] IMPLANTS SCREW,CRTX,STAP,T8,2.4X16MM ([id number]) [facility] [place] 1 Implanted SCREW,CRTX,STAP,T8,2.4X26MM ([id number]) - [id number] IMPLANTS SCREW,CRTX,STAP,T8,2.4X26MM ([id number]) [facility] [place] 1 Implanted SCREW,CRTX,STAP,T8,2.4X22MM ([id number]) - [id number] IMPLANTS SCREW,CRTX,STAP,T8,2.4X22MM ([id number]) [facility] [place] 1 Implanted SCREW,SLFTP,LCK,STAR,2.4X12MM ([id number]) - [id number] IMPLANTS SCREW,SLFTP,LCK,STAR,2.4X12MM ([id number]) [facility] [place] 1 Implanted SCREW,LCK,STAP,STAR,2.4X6MM (3668496) - [id number] IMPLANTS SCREW,LCK,STAP,STAR,2.4X6MM (6822183) [facility] [place] 1 Implanted SCREW,LCK,STAP,STAR,2.4X18MM ([id number]) - [id number] IMPLANTS SCREW,LCK,STAP,STAR,2.4X18MM ([id number])[facility] [place] 1 Implanted SCREW,CRTX,STAP,STRDRV,2X9MM (2488009) - [id number] IMPLANTS SCREW,CRTX,STAP,STRDRV,2X9MM ([id number])[facility] [place] 1 Implanted SCREW,CRTX,STAP,STAR,2X24MM (2985365) - [id number] IMPLANTS SCREW,CRTX,STAP,STAR,2X24MM (9630408) [facility] [place] 1 Wasted SCREW,CRTX,STAP,STAR,2X28MM (0821808) - [id number] IMPLANTS SCREW,CRTX,STAP,STAR,2X28MM (9469102) [facility] [place] 1 Implanted SCREW,CRTX,STAP,STAR,2X18MM ([id number]) - [id number] IMPLANTS SCREW,CRTX,STAP,STAR,2X18MM (6030411) [facility] [place] 1 Implanted SCREW,LCK,STAP,STAR,2X14MM (5674435) - [id number] IMPLANTS SCREW,LCK,STAP,STAR,2X14MM ([id number]) [facility] [place] 1 Implanted SCREW,LCK,STAP,STAR,2X18MM ([id number]) - [id number] IMPLANTS SCREW,LCK,STAP,STAR,2X18MM (9481744) [facility] [place] Right 1 Implanted PLATE,LCP,7H,2.0X52MM (3496558) - [id number] IMPLANTS PLATE,LCP,7H,2.0X52MM (5245655) [facility] Right 1 Implanted PLATE,CNDYLR,LCP,7H,2.4MM (7151046) (AutoReq) - [id number] IMPLANTS PLATE,CNDYLR,LCP,7H,2.4MM (5666529) (AutoReq) [facility] [place] 1 Implanted BONE,CRUSHED,CANCELLOUS,10CC (4532953) (AutoReq) - [id number] IMPLANTS BONE,CRUSHED,CANCELLOUS,10CC(0833714) (AutoReq) [facility] [id number] Right 1 Implanted PIN,KWIRE,TROC 1ED,NS,4L666IH (2194667) - [id number] IMPLANTS PIN,KWIRE,TROC 1ED,NS,3N203AL (9528529) [facility] [place] 2 Implanted and Explanted PIN,KWIRE,PLAIN,2,0.893O4FB,NS (6355108) - [id number] IMPLANTS PIN,KWIRE,PLAIN,2,0.726L2CM,NS (2097892) [employer] [facility] Left 3 Implanted PLATE,LCP,CNDYLR,7H-SHFT,2MM (8522386) - [id number] IMPLANTS PLATE,LCP,CNDYLR,7H-SHFT,2MM (0723485)[facility] [place] [facility] [place] 1 Implanted SCREW,LCK,STAP,STAR,2X12MM (7465315) - [id number] IMPLANTS SCREW,LCK,STAP,STAR,2X12MM (2432148) [facility] [place] 1 Implanted SCREW,LCK,STAP,STAR,2X10MM (7038143) - [id number] IMPLANTS SCREW,LCK,STAP,STAR,2X10MM (1330537) [facility] [place] [facility] [place] 1 Implanted SCREW,CRTX,STAP,STAR,2X12MM (7632695) - [id number] IMPLANTS SCREW,CRTX,STAP,STAR,2X12MM (0524271) [facility] [place] 1 Implanted SCREW,CRTX,STAP,STAR,2X14MM ([id number]) - [id number] IMPLANTS SCREW,CRTX,STAP,STAR,2X14MM (7794561) [facility] [place] 1 Implanted SCREW,CRTX,STAP,STAR,2X14MM (8393587) - [id number] IMPLANTS SCREW,CRTX,STAP,STAR,2X14MM (9218563) [facility] [place] 1 Implanted SCREW,VA,LCK,SLFTP,T6,2X22MM (7208386) - [id number] IMPLANTS SCREW,VA,LCK,SLFTP,T6,2X22MM (0969923)[employer] Right 1 Implanted SCREW,VA,LCK,SLFTP,T6,2X18MM (5286467) - [id number] IMPLANTS SCREW,VA,LCK,SLFTP,T6,2X18MM (3992724)[employer] - [employer] Right 1 Implanted SCREW,VA,LCK,SLFTP,T6,2X16MM (2712269) - [id number] IMPLANTS SCREW,VA,LCK,SLFTP,T6,2X16MM (0319314)[facility] [place] 1 Implanted SCREW,CRTX,STAP,STAR,2X16MM (7233430) - [id number] IMPLANTS SCREW,CRTX,STAP,STAR,2X16MM (4494497) [facility] [place] 1 Implanted SCREW,CRTX,STAP,STAR,2X12MM (6459426) - [id number] IMPLANTS SCREW,CRTX,STAP,STAR,2X12MM (8686685) [facility] [place] 1 Implanted SCREW,CRTX,STAP,STRDRV,2X10MM (6568895) - [id number] IMPLANTS SCREW,CRTX,STAP,STRDRV,2X10MM (5286369) [facility] [place] [facility] [place] Left 1 Implanted GUIDEW,THRD,1.1B898GD (2041079) - [id number] IMPLANTS GUIDEW,THRD,1.6I187BU (6462832) [facility]; [facility] Right 3 Implanted Number of fracture [...] and closing). ?? Aparna Reed MD 09/17/18 * Plan of Care - Lauren Perales PT - 09/16/2018 8:40 AM EDT Physical Therapy Contact Note Patient to OR today. Will follow up for PT evaluation post operatively pending updated WB/activity orders. Will continue to follow up as appropriate during hospital course. Please page with any questions or concerns. Lauren Perales, PT, DPT Pager: [phone] 09/16/18 Inpatient Rehabilitation Department * Plan of Care - Nell Fitch RN [...] IV Keppra, PRN antiemetics given, see MAR. Willdiscuss with team during rounding. Maricruz wraps to [...] sensory deficits provided, if applicable: [X] Yes glasses CPG GOAL OUTCOME EVALUATION: * Plan of Care - Bandar Sahu RN [...] controlled with scheduled and PRN pain medications (see MAR). Splints and maricruz wrap soft casts to BLE remain c/d/i. +CMS. Patient utilized slide board to the chair without difficulty today. Patient remains NWB to BLE. Patient voiding without difficulty (see I&O flowsheet). BG coverage provided as needed (see MAR). Patient's non-formulary medication brought to pharmacy for verification. Patient NPO at [...] needed during ADLs Surveillance [continuous indirect monitoring]: Masimo, NKE at bedside, purposeful rounding, patientinstructed to ring for nurse assist via call valderrama Patient-specific fall prevention interventions for sensory deficits provided, if applicable: [X] Yes CPG GOAL OUTCOME EVALUATION: Goal: Fall Prevention-Safe Patient Handling Outcome: Ongoing (Interventions Implemented as Appropriate) 09/14/18215109/15/1882909/15/18 1403 Kimmie Fall Risk History of Falling -- 27 [...] Control Outcome: Ongoing (Interventions Implemented as Appropriate) 09/15/18829 Safety Interventions Isolation Precautions standard precautions maintained [...] Skin Integrity/Wound Healing making progress toward outcome * Plan of Care - Ori Bates OT - 09/15/2018 3:13 PM EDT OCCUPATIONAL THERAPY Order received and chart reviewed. Pt is pending surgery for bilat foot fractures, OT will follow up post up as able/appropriate. Ori Valencia OT Pager: [phone] * Initial Assessments - Kathrin Madsen RN - [...] wyman Other: Primary Care Provider: LILLY Gaitan [phone] Patient/Caregiver Goals of Treatment: agreed to go to snf for str. PT to eval after surgery which is planned for tomorrow. Referred to snfs. Cont to [...] kind. She agrees to snf referrals, #1 [facility], [facility]. Referral submitted. Plan: snf vs swing vs acute. A member of the Care Management team will continue to monitor progress, follow for continuity of care and assist with transition of care planning. Kathrin Madsen RN Pager: [phone] * Plan of Care - Horace Beckman - 09/15/2018 12:40 PM EDT 09/15/18 0900 Rehab Evaluation Document Type contact Evaluation Not Performed Comment PT orders received pre op. Per notes pt is pending surgery for bilat foot fractures. Will initiate PT after surgery. * Plan of Care - Nell Fitch RN - 09/15/2018 5:22 AM EDT Problem: Patient Care Overview Goal: Plan of Care Review Outcome: Ongoing (Interventions Implemented as Appropriate) OUTCOME EVALUATION NOTE: OUTCOME SUMMARY: Patient resting between care overnight. Patient arrived from outside hospital, bedrest. intermittent nausea overnight, no emesis, PRN medications given. Pain controlled with scheduled and PRN medication, see MAR. Splint and maricruz wrap to bilateral feet, remains clean, dry and intact, + CSMT. NPO at 0000 for possible OR today. Will continue to monitor and assist patient to reach discharge goals. PLAN MOVING FORWARD: OR Pain control Bedrest Glucose monitoring INDIVIDUALIZED FALL PREVENTION INTERVENTIONS: Patient-specific fall risk factors per assessment: [current deficits]: Bilateral fractures to feet,pain, hospital environment and invasive lines Assistance [level of assistance required for transfers and ambulation]: Bedrest Supervision [direct monitoring required during toileting and ADLs]: Hands on, bedpan Surveillance [continuous indirect monitoring]: Masimo, purposeful rounding and nurse knowledge exchange Patient-specific fall prevention interventions for sensory deficits provided, if applicable: [X] Yes glasses on CPG GOAL OUTCOME EVALUATION: documented in this encounter Plan of Treatment Scheduled Orders Name Type Priority Associated Diagnoses Order Schedule Film Library- Storage Only DX Chest Imaging Storage Only Routine Once PRN (for Radiant use) for 1 Occurrences starting 09/15/2018 until 09/15/2018, 1 completed Film Library- Storage Only Ultrasound Study Imaging Storage Only Routine Once PRN (for Radiant use) for 1 Occurrences starting 09/15/2018 until 09/15/2018, 1 completed Film Library- Storage Only MR Head Imaging Storage Only Routine Once PRN (for Radiant use) for 1 Occurrences starting 09/15/2018 until 09/15/2018, 1 completed documented as of this encounter Procedures Procedure Name Priority Date/Time Associated Diagnosis Comments POCT GLUCOSE Routine 09/20/2018 11:29 AM EDT POCT GLUCOSE Routine 09/20/2018 8:02 AM EDT POCT GLUCOSE Routine 09/20/2018 4:03 AM EDT POCT GLUCOSE Routine 09/19/2018 11:45 PM EDT POCT GLUCOSE Routine 09/19/2018 7:26 PM EDT POCT GLUCOSE Routine 09/19/2018 4:14 PM EDT POCT GLUCOSE Routine 09/19/2018 11:28 AM EDT POCT GLUCOSE Routine 09/19/2018 7:54 AM EDT POCT GLUCOSE Routine 09/19/2018 3:42 AM EDT MAGNESIUM Routine 09/19/2018 3:40 AM EDT BASIC METABOLIC PANEL Routine 09/19/2018 3:40 AM EDT POCT GLUCOSE Routine 09/18/2018 11:20 PM EDT POCT GLUCOSE Routine 09/18/2018 7:57 PM EDT POCT GLUCOSE Routine 09/18/2018 4:56 PM EDT POCT GLUCOSE Routine 09/18/2018 11:59 AM EDT POCT GLUCOSE Routine 09/18/2018 7:55 AM EDT POCT GLUCOSE Routine 09/18/2018 3:58 AM EDT MAGNESIUM Routine 09/18/2018 3:37 AM EDT BASIC METABOLIC PANEL Routine 09/18/2018 3:37 AM EDT POCT GLUCOSE Routine 09/17/2018 11:33 PM EDT POCT GLUCOSE Routine 09/17/2018 7:24 PM EDT POCT GLUCOSE Routine 09/17/2018 3:16 PM EDT POCT GLUCOSE Routine 09/17/2018 12:01 PM EDT ZEEG AWAKE, ASLEEP, DROWSY Routine 09/17/2018 9:30 AM EDT BASIC METABOLIC PANEL Routine 09/17/2018 9:02 AM EDT POCT GLUCOSE Routine 09/17/2018 7:33 AM EDT POCT GLUCOSE Routine 09/17/2018 3:29 AM EDT POCT GLUCOSE Routine 09/16/2018 11:25 PM EDT POCT GLUCOSE Routine 09/16/2018 8:29 PM EDT POCT GLUCOSE Routine 09/16/2018 3:35 PM EDT HEMOGLOBIN A1C Routine 09/16/2018 3:33 PM EDT BASIC METABOLIC PANEL Routine 09/16/2018 3:33 PM EDT XR FOOT MIN 3 VIEWS BILAT Routine 09/16/2018 3:16 PM EDT POCT GLUCOSE Routine 09/16/2018 1:56 PM EDT XR FLUORO NO RAD <1HR - OR USE Routine 09/16/2018 1:10 PM EDT OPEN TREAMENT TARSOMETATARSAL JOINT DISLOCATION Routine 09/16/2018 1:08 PM EDT PERCUTANEOUS PINNING, TARSOMETATARSAL JOINT DISLOCATION Routine 09/16/2018 1:08 PM EDT ORIF GREAT TOE Routine 09/16/2018 1:08 PM EDT PERCUTANEOUS PINNING, METATARSAL FX, EA. Routine 09/16/2018 1:08 PM EDT CLOSED REDUCTION TARSAL BONE FX Routine 09/16/2018 1:08 PM EDT CLOSED REDUCTION TARSAL BONE FX (WRVU 3.24) 09/16/2018 10:17 AM EDT Bilateral complex foot fractures and dislocations ORIF GREAT TOE (WRVU 7.44) 09/16/2018 10:17 AM EDT Bilateral complex foot fractures and dislocations PERCUTANEOUS PINNING, METATARSAL FX, EA. (WRVU 3.6) 09/16/2018 10:17 AM EDT Bilateral complex foot fractures and dislocations PERCUTANEOUS PINNING, TARSOMETATARSAL JOINT DISLOCATION (WRVU 5.09) 09/16/2018 10:17 AM EDT Bilateral complex foot fractures and dislocations OPEN TREAMENT TARSOMETATARSAL JOINT DISLOCATION (WRVU 10.7) 09/16/2018 10:17 AM EDT Bilateral complex foot fractures and dislocations MODIFIER LOCKING MINI FRAGMENT SYNTHES 09/16/2018 10:17 AM EDT Bilateral complex foot fractures and dislocations MODIFIER 4.0 CANNULATED SCREW SYNTHES 09/16/2018 10:17 AM EDT Bilateral complex foot fractures and dislocations MODIFIER LOCKING SMALL FRAGMENT SYNTHES 09/16/2018 10:17 AM EDT Bilateral complex foot fractures and dislocations ORIF METATARSAL FX, EACH (WRVU 7.44) 09/16/2018 10:17 AM EDT Bilateral complex foot fractures and dislocations POCT GLUCOSE Routine 09/16/2018 7:46 AM EDT URINE HOLD Routine 09/16/2018 6:07 AM EDT URINALYSIS WITH REFLEX CULTURE Routine 09/16/2018 6:07 AM EDT POCT GLUCOSE Routine 09/16/2018 3:30 AM EDT POCT GLUCOSE Routine 09/15/2018 10:59 PM EDT POCT GLUCOSE Routine 09/15/2018 8:10 PM EDT POCT GLUCOSE Routine 09/15/2018 3:43 PM EDT POCT GLUCOSE Routine 09/15/2018 12:05 PM EDT POCT GLUCOSE Routine 09/15/2018 7:39 AM EDT POCT GLUCOSE Routine 09/15/2018 4:12 AM EDT ABORH RECHECK STATUS Routine 09/15/2018 3:44 AM EDT HEMOGRAM Routine 09/15/2018 3:44 AM EDT DIFFERENTIAL, AUTOMATED Routine 09/16/19 3:44 AM EDT ABO/RH TYPING Routine 09/15/2018 3:44 AM EDT PROTHROMBIN TIME Routine 09/15/2018 3:44 AM EDT CBC (WITH DIFF) Routine 09/15/2018 3:44 AM EDT ANTIBODY SCREEN Routine 09/15/2018 3:44 AM EDT TYPE AND SCREEN ([facility]/IVANIA) Routine 09/15/2018 3:44 AM EDT BASIC METABOLIC PANEL Routine 09/15/2018 3:44 AM EDT ORIF METATARSAL FX, EACH Routine 09/15/2018 2:17 AM EDT POCT GLUCOSE Routine 09/14/2018 9:52 PM EDT FILM LIBRARY STORAGE ONLY MR HEAD Routine 09/13/2018 12:10 AM EDT FILM LIBRARY STORAGE ONLY ULTRASOUND STUDY Routine 09/13/2018 12:05 AM EDT FILM LIBRARY STORAGE ONLY DX CHEST Routine 09/13/2018 12:00 AM EDT documented in this encounter Results * POCT Glucose (09/20/2018 11:29 AM EDT) Glucose, POC 139 65 - 199 mg/dL [facility] Comment: Supplemental ranges: <140 mg/dL before meals <180 mg/dL all other times of the day Blood specimen (specimen) 09/20/2018 11:29 AM EDT 09/20/2018 11:29 AM EDT Javad Urban MD POINT OF CARE TEST O RDERABLES [facility] [place] [address] * POCT Glucose (09/20/2018 8:02 AM EDT) Glucose, POC 167 65 - 199 mg/dL [facility] Comment: Supplemental ranges: <140 mg/dL before meals <180 mg/dL all other times of the day Blood specimen (specimen) 09/20/2018 8:02 AM EDT 09/20/2018 8:02 AM EDT Javad Urban MD POINT OF CARE TEST O JONY Performing Organization Address [facility]/ZIP Co de Phone Number [facility] [place] [address] * POCT Glucose (09/20/2018 4:03 AM EDT) Glucose, POC 127 65 - 199 mg/dL [facility] Comment: Supplemental ranges: <140 mg/dL before meals <180 mg/dL all other times of the day Blood specimen (specimen) 09/20/2018 4:03 AM EDT 09/20/2018 4:03 AM EDT Javad Urban MD POINT OF CARE TEST O JONY Performing Organization Address [facility] Co de Phone Number [facility] [place] [address] * POCT Glucose (09/19/2018 11:45 PM EDT) Glucose, POC 146 65 - 199 mg/dL [facility] Comment: Supplemental ranges: <140 mg/dL before meals <180 mg/dL all other times of the day Blood specimen (specimen) 09/19/2018 11:45 PM EDT 09/19/2018 11:45 PM EDT Javad Urban MD POINT OF CARE TEST O JONY Performing Organization Address [facility] Co de Phone Number [facility] [place] [address] * POCT Glucose (09/19/2018 7:26 PM EDT) Glucose, POC 149 65 - 199 mg/dL [facility] Comment: Supplemental ranges: <140 mg/dL before meals <180 mg/dL all other times of the day Blood specimen (specimen) 09/19/2018 7:26 PM EDT 09/19/2018 7:26 PM EDT Javad Urban MD POINT OF CARE TEST O RDERALISSETT Performing Organization Address City/[facility] Co de Phone Number [facility] [place] [address] * POCT Glucose (09/19/2018 4:14 PM EDT) Glucose, POC 144 65 - 199 mg/dL [facility] Comment: Supplemental ranges: <140 mg/dL before meals <180 mg/dL all other times of the day Blood specimen (specimen) 09/19/2018 4:14 PM EDT 09/19/2018 4:14 PM EDT Javad Urban MD POINT OF CARE TEST O RDERALISSETT Performing Organization Address [facility] Co de Phone Number [facility] [place] [address] * POCT Glucose (09/19/2018 11:28 AM EDT) Glucose, POC 170 65 - 199 mg/dL [facility] Comment: Supplemental ranges: <140 mg/dL before meals <180 mg/dL all other times of the day Blood specimen (specimen) 09/19/2018 11:28 AM EDT 09/19/2018 11:28 AM EDT Javad Urban MD POINT OF CARE TEST O RDERALISSETT Performing Organization Address City/[facility]/ZIP Co de Phone Number [facility] [place] [address] * POCT Glucose (09/19/2018 7:54 AM EDT) Glucose, POC 120 65 - 199 mg/dL [facility] Comment: Supplemental ranges: <140 mg/dL before meals <180 mg/dL all other times of the day Blood specimen (specimen) 09/19/2018 7:54 AM EDT 09/19/2018 7:54 AM EDT Javad Urban MD POINT OF CARE TEST O JONY Performing Organization Address [facility] Co de Phone Number [facility] [place] [address] * POCT Glucose (09/19/2018 3:42 AM EDT) Glucose, POC 105 65 - 199 mg/dL [facility] Comment: Supplemental ranges: <140 mg/dL before meals <180 mg/dL all other times of the day Blood specimen (specimen) 09/19/2018 3:42 AM EDT 09/19/2018 3:42 AM EDT Javad Urban MD POINT OF CARE TEST O JONY Performing Organization Address [facility] Co de Phone Number [facility] [place] [address] * Magnesium (09/19/2018 3:40 AM EDT) Magnesium 0.74 0.69 - 1.07 mmol/L [facility] Blood specimen (specimen) Venous Draw / Unknown 09/19/2018 3:40 AM EDT 09/19/2018 4:40 AM EDT Narrative Resulting Agency Comment Spec In Lab Buffy CARR CHEMISTRY ORDERAB LES Performing Organization Address [facility] Co de Phone Number [facility] [place] [address] * (ABNORMAL) Basic Metabolic Panel (non-fasting) (09/19/2018 3:40 AM EDT) Glucose 111 65 - 199 mg/dL [facility] Comment:Diabetes: >=200 mg/d L plus symptoms Blood Urea Nitrogen 11 8 - 18 mg/dL [facility] Creatinine 0.64(L) 0.70 - 1.20 mg/dL [facility] Sodium 140 135 - 145 mmol/L [facility] Potassium 4.0 3.5 - 5.0 mmol/L [facility] Comment: Please note: ??Patients with WBC >100,000 may have falsely elevated Potassium levels. ??For accurate Potassium quantification in these patients send serum separator tube (gold top) for subsequent determinations. ??Contact the Clinical Chemistry Laboratory if there are any questions. Chloride 104 98 - 107 mmol/L [facility] Carbon Dioxide 27 22 - 31 mmol/L [facility] Anion Gap 9 5 - 15 mmol/L [facility] Calcium 8.9 8.5 - 10.5 mg/dL [facility] Est Glomerular Filtration Rate 103 >=60 mL/min/1. 73 m?? [facility] Comment: The eGFR was calculated using the CKD-EPI equation. As with all creatinine based estimates of kidney function, eGFR values calculated with the CKD-EPI equation are not accurate in patients with acute kidney failure, extremes of body mass or the acutely ill. [email or web address] eGFR 120 >=60 mL/min/1. 73 m?? [facility] Comment: The eGFR was calculated using the CKD-EPI equation. As with all creatinine based estimates of kidney function, eGFR values calculated with the CKD-EPI equation are not accurate in patients with acute kidney failure, extremes of body mass or the acutely ill. [email or web address] Blood specimen (specimen) 09/19/2018 3:40 AM EDT 09/19/2018 3:53 AM EDT Narrative Resulting Agency Comment Spec In Lab Trina Loo APRN CHEMISTRY ORDERABLE S [facility] [place] [address] * POCT Glucose (09/18/2018 11:20 PM EDT) Glucose, POC 150 65 - 199 mg/dL [facility] Comment: Supplemental ranges: <140 mg/dL before meals <180 mg/dL all other times of the day Blood specimen (specimen) 09/18/2018 11:20 PM EDT 09/18/2018 11:20 PM EDT Javad Urban MD POINT OF CARE TEST O RDERALISSETT Performing Organization Address City/[facility] Co de Phone Number [facility] [place] [address] * POCT Glucose (09/18/2018 7:57 PM EDT) Glucose, POC 103 65 - 199 mg/dL [facility] Comment: Supplemental ranges: <140 mg/dL before meals <180 mg/dL all other times of the day Blood specimen (specimen) 09/18/2018 7:57 PM EDT 09/18/2018 7:57 PM EDT Javad Urban MD POINT OF CARE TEST O JONY Performing Organization Address [facility] Co de Phone Number [facility] [place] [address] * POCT Glucose (09/18/2018 4:56 PM EDT) Glucose, POC 142 65 - 199 mg/dL [facility] Comment: Supplemental ranges: <140 mg/dL before meals <180 mg/dL all other times of the day Blood specimen (specimen) 09/18/2018 4:56 PM EDT 09/18/2018 4:56 PM EDT Javda Urban MD POINT OF CARE TEST O RDERALISSETT Performing Organization Address [facility] Co de Phone Number [facility] [place] [address] * POCT Glucose (09/18/2018 11:59 AM EDT) Glucose, POC 160 65 - 199 mg/dL [facility] Comment: Supplemental ranges: <140 mg/dL before meals <180 mg/dL all other times of the day Blood specimen (specimen) 09/18/2018 11:59 AM EDT 09/18/2018 11:59 AM EDT Javad Urban MD POINT OF CARE TEST O JONY Performing Organization Address [facility] Co de Phone Number [facility] [place] [address] * POCT Glucose (09/18/2018 7:55 AM EDT) Glucose, POC 126 65 - 199 mg/dL [facility] Comment: Supplemental ranges: <140 mg/dL before meals <180 mg/dL all other times of the day Blood specimen (specimen) 09/18/2018 7:55 AM EDT 09/18/2018 7:55 AM EDT Javad Urban MD POINT OF CARE TEST O JONY Performing Organization Address [facility] Co de Phone Number [facility] [place] [address] * POCT Glucose (09/18/2018 3:58 AM EDT) Glucose, POC 125 65 - 199 mg/dL [facility] Comment: Supplemental ranges: <140 mg/dL before meals <180 mg/dL all other times of the day Blood specimen (specimen) 09/18/2018 3:58 AM EDT 09/18/2018 3:58 AM EDT Javad Urban MD POINT OF CARE TEST O JONY Performing Organization Address [facility] Co de Phone Number [facility] [place] [address] * (ABNORMAL) Magnesium (09/18/2018 3:37 AM EDT) Magnesium 0.67(L) 0.69 - 1.07 mmol/L [facility] Blood specimen (specimen) Venous Draw / Unknown 09/18/2018 3:37 AM EDT 09/18/2018 4:55 AM EDT Narrative Resulting Agency Comment Spec In Lab Trina Loo CARLOS CHEMISTRY ORDERABLE S [facility] [place] [address] * (ABNORMAL) Basic Metabolic Panel (non-fasting) (09/18/2018 3:37 AM EDT) Glucose 106 65 - 199 mg/dL [facility] Comment:Diabetes: >=200 mg/d L plus symptoms Blood Urea Nitrogen 7(L) 8 - 18 mg/dL [facility] Creatinine 0.62(L) 0.70 - 1.20 mg/dL [facility] Sodium 143 135 - 145 mmol/L [facility] Potassium 3.1(L) 3.5 - 5.0 mmol/L [facility] Comment: Please note: ??Patients with WBC >100,000 may have falsely elevated Potassium levels. ??For accurate Potassium quantification in these patients send serum separator tube (gold top) for subsequent determinations. ??Contact the Clinical Chemistry Laboratory if there are any questions. Chloride 106 98 - 107 mmol/L [facility] Carbon Dioxide 26 22 - 31 mmol/L [facility] Anion Gap 11 5 - 15 mmol/L [facility] Calcium 8.5 8.5 - 10.5 mg/dL [facility] Est Glomerular Filtration Rate 104 >=60 mL/min/1. 73 m?? [facility] Comment: The eGFR was calculated using the CKD-EPI equation. As with all creatinine based estimates of kidney function, eGFR values calculated with the CKD-EPI equation are not accurate in patients with acute kidney failure, extremes of body mass or the acutely ill. [email or web address] eGFR 121 >=60 mL/min/1. 73 m?? [facility] Comment: The eGFR was calculated using the CKD-EPI equation. As with all creatinine based estimates of kidney function, eGFR values calculated with the CKD-EPI equation are not accurate in patients with acute kidney failure, extremes of body mass or the acutely ill. [email or web address] Blood specimen (specimen) 09/18/2018 3:37 AM EDT 09/18/2018 3:59 AM EDT Narrative Resulting Agency Comment Spec In Lab Trina Loo APRN CHEMISTRY ORDERABLE S Performing Organization Address [facility] Co de Phone Number [facility] [place] [address] * POCT Glucose (09/17/2018 11:33 PM EDT) Glucose, POC 145 65 - 199 mg/dL [facility] Comment: Supplemental ranges: <140 mg/dL before meals <180 mg/dL all other times of the day Blood specimen (specimen) 09/17/2018 11:33 PM EDT 09/17/2018 11:33 PM EDT Javad Urban MD POINT OF CARE TEST O RDERABLES Performing Organization Address [facility] Co de Phone Number [facility] [place] [address] * (ABNORMAL) POCT Glucose (09/17/2018 7:24 PM EDT) Glucose, POC 200(H) 65 - 199 mg/dL [facility] Comment: Supplemental ranges: <140 mg/dL before meals <180 mg/dL all other times of the day Blood specimen (specimen) 09/17/2018 7:24 PM EDT 09/17/2018 7:24 PM EDT Javad Urban MD POINT OF CARE TEST O RDERALISSETT Performing Organization Address [facility] Co de Phone Number [facility] [place] [address] * POCT Glucose (09/17/2018 3:16 PM EDT) Glucose, POC 180 65 - 199 mg/dL [facility] Comment: Supplemental ranges: <140 mg/dL before meals <180 mg/dL all other times of the day Blood specimen (specimen) 09/17/2018 3:16 PM EDT 09/17/2018 3:16 PM EDT Javad Urban MD POINT OF CARE TEST O JONY Performing Organization Address [facility] Co de Phone Number [facility] [place] [address] * POCT Glucose (09/17/2018 12:01 PM EDT) Glucose, POC 137 65 - 199 mg/dL [facility] Comment: Supplemental ranges: <140 mg/dL before meals <180 mg/dL all other times of the day Blood specimen (specimen) 09/17/2018 12:01 PM EDT 09/17/2018 12:01 PM EDT Javad Urban MD POINT OF CARE TEST O JONY Performing Organization Address [facility] de Phone Number [facility] [place] [address] * EEG awake, asleep, drowsy, routine (09/17/2018 9:30 AM EDT) Narrative Jose Singer MD - 09/17/2018 9:30 AM EDT Jose Singer MD ? 09/21/2018 10:14 AM [facility] Department of Neurology Inpatient EEG Report Name of the Patient: ??Jenae La Date of : ?1965 Date of Service: ?09/17/2018 Referring physician: ?Dr. Abdirahman Enamorado BRIEF HISTORY: Jenae La is a 53 y.o. patient with episodes of tremors at home and witnessed facial and arm twitching at [facility] (witnessed by nursing). Also [...] Units Oral Daily Buffy Russell PA ?? 1,000 Units at 09/17/1843 ? ? calcium citrate (CALCITRATE) tablet 950 mg ??950 mg Oral Daily Buffy Russell PA ?? 950 mg at 09/17/1844 ? ? enoxaparin (LOVENOX) injection 40 mg ??40 mg Subcutaneous Nightly Sanket Freeman MD ?? 40 mg at 09/16/182010 ? ? Nicotine inhalation system (Nicotrol Inhaler) 1 cartridge ??1-4 Cartridge Inhalation Q4H PRN Sanket Freeman MD ?? 1 Cartridge at 09/17/18351 [...] mL/hr at 09/16/181999 1,000 mL at 09/16/181999 ? ? acetaminophen (TYLENOL) tablet 1,000 mg ??1,000 mg Oral Q8H Sanket Jamison MD ?? 1,000 mg at 09/17/18 0525 ? ? ipratropium-albuterol (DUONEB) 0.5 mg-3 mg(2.5 mg base)/3 mL nebulizer solution 3 mL ??3 mL Nebulization Q4H PRSanket Friedman MD ? simvastatin (ZOCOR) [...] Units ??1-4 Units Subcutaneous Q4H Sanket Jamison MD ?? 1 Units at 09/15/18 2305 ? [...] bipolar and referential electrode montages were recorded. ??In addition to EEG the patient was monitored for EKG and lateral/vertical eye movements. Video was recorded during the session. The duration of the recording was 30 minutes. SIGN POSTER'S REPORT:Performed by: RR/GERHARD Patient was not sleep [...] theta range frequencies. There were no significant asymmetries of background activity noted. [...] Angel MD Clinical Neurophysiology Fellow Personal Pager #[phone] Epilepsy Neurology #[phone] Neurology Attending I have personally reviewed the EEG, and I agree with the details as written. ?? The above report was formulated in discussion with me at the time of EEG reading, and I agree with it as documented. Jose Singer MD [place] [address] Pager: [phone], #[phone] Email: [email or web address] Javad Urban MD NEUROLOGY ORDERABLES * (ABNORMAL) Basic Metabolic Panel (non-fasting) (09/17/2018 9:02 AM EDT) Glucose 121 65 - 199 mg/dL [facility] Comment:Diabetes: >=200 mg/d L plus symptoms Blood Urea Nitrogen 9 8 - 18 mg/dL [facility] Creatinine 0.59(L) 0.70 - 1.20 mg/dL [facility] Sodium 144 135 - 145 mmol/L [facility] Potassium 2.9(Criti toy) 3.5 - 5.0 mmol/L [facility] Comment: Called by: maged/sb, Read back by: Aruna Calvo, Date/Time:09/17/18 10:19. Please note: ??Patients with WBC >100,000 may have falsely elevated Potassium levels. ??For accurate Potassium quantification in these patients send serum separator tube (gold top) for subsequent determinations. ??Contact the Clinical Chemistry Laboratory if there are any questions. Chloride 108(H) 98 - 107 mmol/L [facility] Carbon Dioxide 25 22 - 31 mmol/L [facility] Anion Gap 11 5 - 15 mmol/L [facility] Calcium 8.0(L) 8.5 - 10.5 mg/dL [facility] Est Glomerular Filtration Rate 106 >=60 mL/min/1. 73 m?? [facility] Comment: The eGFR was calculated using the CKD-EPI equation. As with all creatinine based estimates of kidney function, eGFR values calculated with the CKD-EPI equation are not accurate in patients with acute kidney failure, extremes of body mass or the acutely ill. [email or web address] eGFR 123 >=60 mL/min/1. 73 m?? [facility] Comment: The eGFR was calculated using the CKD-EPI equation. As with all creatinine based estimates of kidney function, eGFR values calculated with the CKD-EPI equation are not accurate in patients with acute kidney failure, extremes of body mass or the acutely ill. [email or web address] Blood specimen (specimen) 09/17/2018 9:02 AM EDT 09/17/2018 9:17 AM EDT Narrative Resulting Agency Comment Spec In Lab Javad Urban MD CHEMISTRY ORDERABLES Performing Organization Address [facility]/ZIP Co de Phone Number [facility] [place] [address] * POCT Glucose (09/17/2018 7:33 AM EDT) Glucose, POC 136 65 - 199 mg/dL [facility] Comment: Supplemental ranges: <140 mg/dL before meals <180 mg/dL all other times of the day Blood specimen (specimen) 09/17/2018 7:33 AM EDT 09/17/2018 7:33 AM EDT Javad Urban MD POINT OF CARE TEST O RDERABLES Performing Organization Address [facility] Co de Phone Number [facility] [place] [address] * POCT Glucose (09/17/2018 3:29 AM EDT) Glucose, POC 126 65 - 199 mg/dL [facility] Comment: Supplemental ranges: <140 mg/dL before meals <180 mg/dL all other times of the day Blood specimen (specimen) 09/17/2018 3:29 AM EDT 09/17/2018 3:29 AM EDT Javad Urban MD POINT OF CARE TEST O RDSILVIO Performing Organization Address [facility] Co de Phone Number [facility] [place] [address] * POCT Glucose (09/16/2018 11:25 PM EDT) Glucose, POC 123 65 - 199 mg/dL [facility] Comment: Supplemental ranges: <140 mg/dL before meals <180 mg/dL all other times of the day Blood specimen (specimen) 09/16/2018 11:25 PM EDT 09/16/2018 11:25 PM EDT Javad Urban MD POINT OF CARE TEST O JONY Performing Organization Address [facility] Co de Phone Number [facility] [place] [address] * POCT Glucose (09/16/2018 8:29 PM EDT) Glucose, POC 114 65 - 199 mg/dL [facility] Comment: Supplemental ranges: <140 mg/dL before meals <180 mg/dL all other times of the day Blood specimen (specimen) 09/16/2018 8:29 PM EDT 09/16/2018 8:29 PM EDT Javad Urban MD POINT OF CARE TEST Rosie BORGES Performing Organization Address [facility] Co de Phone Number [facility] [place] [address] * POCT Glucose (09/16/2018 3:35 PM EDT) Glucose, POC 106 65 - 199 mg/dL [facility] Comment: Supplemental ranges: <140 mg/dL before meals <180 mg/dL all other times of the day Blood specimen (specimen) 09/16/2018 3:35 PM EDT 09/16/2018 3:35 PM EDT Javad Urban MD POINT OF CARE TEST Rosie BORGES Performing Organization Address [facility] Co de Phone Number [facility] [place] [address] * (ABNORMAL) Basic Metabolic Panel (non-fasting) (09/16/2018 3:33 PM EDT) Glucose 106 65 - 199 mg/dL [facility] Comment:Diabetes: >=200 mg/d L plus symptoms Blood Urea Nitrogen 13 8 - 18 mg/dL [facility] Creatinine 0.62(L) 0.70 - 1.20 mg/dL [facility] Sodium 147(H) 135 - 145 mmol/L [facility] Potassium 3.2(L) 3.5 - 5.0 mmol/L [facility] Comment: Please note: ??Patients with WBC >100,000 may have falsely elevated Potassium levels. ??For accurate Potassium quantification in these patients send serum separator tube (gold top) for subsequent determinations. ??Contact the Clinical Chemistry Laboratory if there are any questions. Chloride 112(H) 98 - 107 mmol/L [facility] Carbon Dioxide 22 22 - 31 mmol/L [facility] Anion Gap 13 5 - 15 mmol/L [facility] Calcium 8.1(L) 8.5 - 10.5 mg/dL [facility] Est Glomerular Filtration Rate 104 >=60 mL/min/1. 73 m?? [facility] Comment: The eGFR was calculated using the CKD-EPI equation. As with all creatinine based estimates of kidney function, eGFR values calculated with the CKD-EPI equation are not accurate in patients with acute kidney failure, extremes of body mass or the acutely ill. [email or web address] eGFR 121 >=60 mL/min/1. 73 m?? [facility] Comment: The eGFR was calculated using the CKD-EPI equation. As with all creatinine based estimates of kidney function, eGFR values calculated with the CKD-EPI equation are not accurate in patients with acute kidney failure, extremes of body mass or the acutely ill. [email or web address] Blood specimen (specimen) 09/16/2018 3:33 PM EDT 09/16/2018 3:49 PM EDT Narrative Resulting Agency Comment Spec In Lab Javad Urban MD CHEMISTRY ORDERABLES [facility] [place] [address] * Hemoglobin A1c (09/16/2018 3:33 PM EDT) Hemoglobin A1c 5.5 4.3 - 5.6 % [facility] Comment: Reference Range: 4.3 - [...] Mellitus, Diabetes Care 2013; 36: Suppl. 1, S67-08 Estimated Average Glucose 111 mg/dL [facility] Comment: eAG equivalents for HbA1c [...] into estimated average glucose values. ??Diabetes Care 2008:31(8):6519-8777. Blood specimen (specimen) 09/16/2018 3:33 PM EDT 09/16/2018 3:49 PM EDT Narrative Resulting Agency Comment Spec In Lab Javad Urban MD CHEMISTRY ORDERABLES [facility] [place] [address] * XR Foot Min 3 views Bilat (Generic) (09/16/2018 3:16 PM EDT) Anatomical Region Laterality Modality Foot Bilateral Digital Radiogra phy Impressions 09/16/2018 3:47 PM EDT ORIF of bilateral complex foot fracture and dislocations. Thank you for letting us participate in the care of this patient. For questions regarding this report, please contact the number below. ? Narrative 09/16/2018 3:47 PM EDT EXAMINATION: XR FOOT MIN 3 VIEWS BILAT (GENERIC) CLINICAL HISTORY: s/p ORIF bilateral foot fractures, , ??entered by ordering service TECHNIQUE: [...] malalignment at bilateral Lisfranc joint is reduced. Procedure Note Sheila Joaquin MD - 09/16/2018 EXAMINATION: XR FOOT MIN 3 VIEWS BILAT (GENERIC) CLINICAL HISTORY: s/p ORIF bilateral foot fractures, , entered byordering service TECHNIQUE: 3 views each foot COMPARISON: CT scan from August 2018. FINDINGS: Cast material obscures evaluation of bone and soft tissue details. ORIF of bilateral complex foot fractures and dislocations. Bones: The fracture lines are mostly obscured by overlying cast. Left K wires traversing 2, 3 and 4 metatarsals. Additional dorsal fixationplate at base of 4 metatarsal. Right 1. 1 proximal phalanx-plate and screw fixation of comminutedintra-articular fracture. 2. 3-5 metatarsals-K wires at bases of metatarsals. 3. 1 and 2 TMT joint-dorsal plate and screw fixation across metatarsalsand cuneiforms. Lisfranc joints: The malalignment at bilateral Lisfranc joint is reduced. IMPRESSION ORIF of bilateral complex foot fracture and dislocations. Thank you for letting us participate in the care of this patient. Forquestions regarding this report, please contact the number below. Javad Urban MD IMG DX ORDERABLES * POCT Glucose (09/16/2018 1:56 PM EDT) Glucose, POC 126 65 - 199 mg/dL [facility] Comment: Supplemental ranges: <140 mg/dL before meals <180 mg/dL all other times of the day Blood specimen (specimen) 09/16/2018 1:56 PM EDT 09/16/2018 1:56 PM EDT Javad Urban MD POINT OF CARE TEST O RDERABLES [facility] [place] [address] * XR Fluoro No Rad <1Hr - OR Use (09/16/2018 1:10 PM EDT) Narrative RAD - 09/16/2018 1:11 PM EDT This order does not need a radiologist interpretation. ?? Javad Urban MD IMG FLUORO ORDERABLE S Performing Organization Address [facility] Co de Phone Number [place], [place] * POCT Glucose (09/16/2018 7:46 AM EDT) Glucose, POC 131 65 - 199 mg/dL [facility] Comment: Supplemental ranges: <140 mg/dL before meals <180 mg/dL all other times of the day Blood specimen (specimen) 09/16/2018 7:46 AM EDT 09/16/2018 7:46 AM EDT Javad Urban MD POINT OF CARE TEST O RDERABLES Performing Organization Address [facility] Co de Phone Number [facility] [place] [address] * Urine Hold (09/16/2018 6:07 AM EDT) Hold, Urine Sample in lab. [facility] Urine specimen (specimen) Urine / Unknown 09/16/2018 6:07 AM EDT 09/16/2018 6:54 AM EDT Sanket Freeman MD URINE ORDERABLES Performing Organization Address [facility] Co de Phone Number [facility] [place] [address] * (ABNORMAL) Urinalysis with reflex Culture (09/16/2018 6:07 AM EDT) Glucose, Urine Dipstick Negative Negative mg/dL [facility] Protein, Urine Dipstick Negative Negative mg/dL [facility] Bilirubin, Urine Dipstick Negative Negative mg/dL [facility] Comment: Clinical correlation required for positive Urine Bilirubin results as false positive may occur with some drugs and drug related products. If a false positive is suspected a serum total bilirubin should be considered if clinically indicated. Urobilinogen, Urine Dipstick Normal Normal mg/dL [facility] pH, Urn (dipstick) 6.0 5.0 - 8.0 [facility] Blood, Urine Dipstick Negative Negative mg/dL [facility] Ketone, Urine Dipstick 5(A) Negative mg/dL [facility] Nitrite, Urine Dipstick Negative Negative [facility] Leukocytes, Urine Dipstick Negative Negative [facility] Appearance, Urine Dipstick Clear Clear [facility] Specific [place] Urine Automated 1.012 1.002 - 1.030 [facility] Color, Urine Dipstick Straw Yellow [facility] Reflex to Culture No [facility] Urine specimen (specimen) 09/16/2018 6:07 AM EDT 09/16/2018 6:52 AM EDT Narrative Resulting Agency Comment Spec In Lab Javad Urban MD URINE ORDERABLES Performing Organization Address [facility] Co de Phone Number [facility] [place] [address] * POCT Glucose (09/16/2018 3:30 AM EDT) Glucose, POC 126 65 - 199 mg/dL [facility] Comment: Supplemental ranges: <140 mg/dL before meals <180 mg/dL all other times of the day Blood specimen (specimen) 09/16/2018 3:30 AM EDT 09/16/2018 3:30 AM EDT Javad Urban MD POINT OF CARE TEST O RDERABLES Performing Organization Address [facility]/ZIP Co de Phone Number [facility] [place] [address] * POCT Glucose (09/15/2018 10:59 PM EDT) Glucose, POC 143 65 - 199 mg/dL [facility] Comment: Supplemental ranges: <140 mg/dL before meals <180 mg/dL all other times of the day Blood specimen (specimen) 09/15/2018 10:59 PM EDT 09/15/2018 10:59 PM EDT Javad Urban MD POINT OF CARE TEST O JONY Performing Organization Address [facility] Co de Phone Number [facility] [place] [address] * POCT Glucose (09/15/2018 8:10 PM EDT) Glucose, POC 100 65 - 199 mg/dL [facility] Comment: Supplemental ranges: <140 mg/dL before meals <180 mg/dL all other times of the day Blood specimen (specimen) 09/15/2018 8:10 PM EDT 09/15/2018 8:10 PM EDT Javad Urban MD POINT OF CARE TEST Rosie BORGES Performing Organization Address [facility] Co de Phone Number [facility] [place] [address] * POCT Glucose (09/15/2018 3:43 PM EDT) Glucose, POC 173 65 - 199 mg/dL [facility] Comment: Supplemental ranges: <140 mg/dL before meals <180 mg/dL all other times of the day Blood specimen (specimen) 09/15/2018 3:43 PM EDT 09/15/2018 3:43 PM EDT Javad Urban MD POINT OF CARE TEST O JONY Performing Organization Address [facility] Co de Phone Number [facility] [place] [address] * POCT Glucose (09/15/2018 12:05 PM EDT) Glucose, POC 177 65 - 199 mg/dL [facility] Comment: Supplemental ranges: <140 mg/dL before meals <180 mg/dL all other times of the day Blood specimen (specimen) 09/15/2018 12:05 PM EDT 09/15/2018 12:05 PM EDT Javad Urban MD POINT OF CARE TEST O JONY Performing Organization Address [facility] de Phone Number [facility] [place] [address] * (ABNORMAL) POCT Glucose (09/15/2018 7:39 AM EDT) Glucose, POC 206(H) 65 - 199 mg/dL [facility] Comment: Supplemental ranges: <140 mg/dL before meals <180 mg/dL all other times of the day Blood specimen (specimen) 09/15/2018 7:39 AM EDT 09/15/2018 7:39 AM EDT Javad Urban MD POINT OF CARE TEST O JONY Performing Organization Address [facility] de Phone Number [facility] [place] [address] * POCT Glucose (09/15/2018 4:12 AM EDT) Glucose, POC 141 65 - 199 mg/dL [facility] Comment: Supplemental ranges: <140 mg/dL before meals <180 mg/dL all other times of the day Blood specimen (specimen) 09/15/2018 4:12 AM EDT 09/15/2018 4:12 AM EDT Javad Urban MD POINT OF CARE TEST O JONY Performing Organization Address [facility] Co de Phone Number [facility] [place] [address] * ABORH Recheck Status (09/15/2018 3:44 AM EDT) ABORH Recheck Order Order Placed [facility] ABORH Type Recheck Complete [facility] Blood specimen (specimen) 09/15/2018 3:44 AM EDT 09/15/2018 3:59 AM EDT Narrative Resulting Agency Comment Spec In Lab Ori Santos MD BLOOD BANK LAB ORDER MADHAVI Performing Organization Address City/[facility]/ZIP Co de Phone Number [facility] [place] [address] * Antibody screen (09/15/2018 3:44 AM EDT) Ab Screen Interp Negative [facility] Expires at [id number] on: 09/18/2018 [facility] Blood specimen (specimen) 09/15/2018 3:44 AM EDT 09/15/2018 3:59 AM EDT Narrative Resulting Agency Comment Spec In Lab Ori Santos MD BLOOD BANK LAB ORDER MADHAVI Performing Organization Address [facility] Co de Phone Number [facility] [place] [address] * ABO/Rh Typing (09/15/2018 3:44 AM EDT) Pathologist [facility] ABORH Type A Pos [facility] Blood specimen (specimen) 09/15/2018 3:44 AM EDT 09/15/2018 3:59 AM EDT Narrative Resulting Agency Comment Spec In Lab Ori Santos MD BLOOD BANK LAB ORDER MADHAVI Performing Organization Address City/[facility]/ZIP Co de Phone Number [facility] [place] [address] * (ABNORMAL) Differential, Automated (09/15/2018 3:44 AM EDT) Neutrophil % 64.7 % [facility] Neutrophil Absolute 7.24(H) 1.70 - 6.10 x10(3)/mc L [facility] Lymph % 21.6 % [facility] Lymphocytes Abs 2.4 0.9 - 3.2 x10(3)/mc L [facility] Monocyte % 10.8 % [facility] Monocyte Abs 1.2(H) 0.3 - 0.9 x10(3)/[facility] LABOR[facility] Eos % 0.2 % [facility] Eosinophils Abs 0.0 0.0 - 0.4 x10(3)/[facility] Basophil % 0.4 % [facility] Baso Absolute 0.0 0.0 - 0.1 x10(3)/[facility] Immature Gran % 2.30 % [facility] Comment: Immature granulocytes(IG's)percentage and absolute count will include metamyelocytes, myelocytes, and promyelocytes. Blood smears from CBCs yielding IG's will be scanned manually for concordance. If this scan disagrees with the automated IG or if promyelocytes are noted, a manual differential will be performed. Immature Gran Absolute 0.26(H) 0.00 - 0.04 x10(3)/[facility] Blood specimen (specimen) 09/15/2018 3:44 AM EDT 09/15/2018 4:18 AM EDT Narrative Resulting Agency Comment Spec In Lab Ori Santos MD HEMATOLOGY ORDERABLE S [facility] [place] [address] * (ABNORMAL) Hemogram (09/15/2018 3:44 AM EDT) White Blood Cell 11.2(H) 4.0 - 9.5 x10(3)/[facility] LAB[facility]AT[facility] Red Blood Cell 3.05(L) 4.00 - 5.21 x10(6)/[facility] Hemoglobin 9.6(L) 11.7 - 15.5 gm/dL [facility] Hematocrit 29.5(L) 35.7 - 45.8 % [facility] Mean Cell Volume 96.7(H) 82.6 - 94.4 fL [facility] Mean Cell Hemoglobin 31.5 27.1 - 32.0 pg [facility] Mean Cell Hemoglobin Concentration 32.5 31.7 - 35.0 gm/dL [facility] Platelet 244 145 - 357 x10(3)/mc L [facility] RDW Standard Deviation 50.8(H) 37.0 - 46.0 fL [facility] RDW coefficient of variation 14.3(H) 11.5 - 14.1 % [facility] Mean Platelet Volume 10.9 7.6 - 12.9 fL [facility] NRBC% auto 0.0 % [facility] NRBC Absolute 0.000 0.000 - 0.000 x10(3)/mc L [facility] Blood specimen (specimen) 09/15/2018 3:44 AM EDT 09/15/2018 4:18 AM EDT Narrative Resulting Agency Comment Spec In Lab Ori Santos MD HEMATOLOGY ORDERABLE S Performing Organization Address City/[facility]/ZIP Co de Phone Number [facility] [place] [address] * Prothrombin Time (09/15/2018 3:44 AM EDT) Prothrombin Time 12.0 9.4 - 12.5 sec [facility] International Normalization Ratio 1.0 [facility] Comment: An INR <2.0 indicates adequate procoagulant activity for hemostasis in most patients without underlying bleeding disorders, though the INR may not adequately reflect hemostatic capacity in patients with liver disease and synthetic impairment. The recommended target INR range for therapeutic anticoagulation is 2.0 ? 3.0 for most applications, though lower and higher ranges may be appropriate depending on clinical circumstances. Blood specimen (specimen) 09/15/2018 3:44 AM EDT 09/15/2018 4:18 AM EDT Narrative Resulting Agency Comment Spec In Lab Javad Urban MD HEMATOLOGY ORDERABLE S Performing Organization Address City/[facility]/ZIP Co de Phone Number [facility] [place] [address] * (ABNORMAL) Basic Metabolic Panel (non-fasting) (09/15/2018 3:44 AM EDT) Glucose 135 65 - 199 mg/dL [facility] Comment:Diabetes: >=200 mg/d L plus symptoms Blood Urea Nitrogen 18 8 - 18 mg/dL [facility] Creatinine 0.74 0.70 - 1.20 mg/dL [facility] Sodium 142 135 - 145 mmol/L [facility] Potassium 3.6 3.5 - 5.0 mmol/L [facility] Comment: Please note: ??Patients with WBC >100,000 may have falsely elevated Potassium levels. ??For accurate Potassium quantification in these patients send serum separator tube (gold top) for subsequent determinations. ??Contact the Clinical Chemistry Laboratory if there are any questions. Chloride 113(H) 98 - 107 mmol/L [facility] Carbon Dioxide 20(L) 22 - 31 mmol/L [facility] Anion Gap 9 5 - 15 mmol/L [facility] Calcium 7.9(L) 8.5 - 10.5 mg/dL [facility] Est Glomerular Filtration Rate 94 >=60 mL/min/1. 73 m?? [facility] Comment: The eGFR was calculated using the CKD-EPI equation. As with all creatinine based estimates of kidney function, eGFR values calculated with the CKD-EPI equation are not accurate in patients with acute kidney failure, extremes of body mass or the acutely ill. [email or web address] eGFR 109 >=60 mL/min/1. 73 m?? [facility] Comment: The eGFR was calculated using the CKD-EPI equation. As with all creatinine based estimates of kidney function, eGFR values calculated with the CKD-EPI equation are not accurate in patients with acute kidney failure, extremes of body mass or the acutely ill. [email or web address] Blood specimen (specimen) 09/15/2018 3:44 AM EDT 09/15/2018 4:18 AM EDT Narrative Resulting Agency Comment Spec In Lab Javad Urban MD CHEMISTRY ORDERABLES Performing Organization Address [facility] Co de Phone Number [facility] [place] [address] * POCT Glucose (09/14/2018 9:52 PM EDT) Glucose, POC 124 65 - 199 mg/dL [facility] Comment: Supplemental ranges: <140 mg/dL before meals <180 mg/dL all other times of the day Blood specimen (specimen) 09/14/2018 9:52 PM EDT 09/14/2018 9:52 PM EDT Javad Urban MD POINT OF CARE TEST O RDERABLES Performing Organization Address [facility] de Phone Number [facility] [place] [address] * Film Library- Storage Only MR Head (09/13/2018 12:10 AM EDT) Narrative [facility] - 09/15/2018 10:49 AM EDT This exam is auto-finalizing. It's purpose is for storage only. Javad Urban MD IMG FILM LIBRARY ORD ERABLES Performing Organization Address [facility] de Phone Number [place], [place] * Film Library- Storage Only Ultrasound Study (09/13/2018 12:05 AM EDT) Narrative [facility] - 09/15/2018 10:47 AM EDT This exam is auto-finalizing. It's purpose is for storage only. Javad CHIN FILM LIBRARY ORD ERABLES Performing Organization Address [facility] de Phone Number [place], [place] * Film Library- Storage Only DX Chest (09/13/2018 12:00 AM EDT) Narrative [facility] - 09/15/2018 10:46 AM EDT This exam is auto-finalizing. It's purpose is for storage only. Javad Urban MD IMG FILM LIBRARY ORD ERABLES [facility] [place], [place] documented in this encounter Visit Diagnoses Not on filedocumented in this encounter Admitting Diagnoses Diagnosis Fracture of unspecified tarsal bone(s) of unspecified foot, initial encounter for closed fracture documented in this encounter Administered Medications Inactive Administered Medications - up to 3 most recent administrations Medication Order MAR Action Action Date Dose Rate Site acetaminophen (TYLENOL) tablet 1,000 mg 1,000 mg, Oral, EVERY 8 HOURS SCHEDULED, First dose on Thu09/14/18 at 2315, Until Discontinued, Maximum dose of acetaminophen is 4000 mg from all sources in 24 hours., Routine Given 09/20/2018 12:10 PM EDT 1,000 mg Given 09/20/2018 5:22 AM EDT 1,000 mg Given 09/19/2018 8:25 PM EDT 1,000 mg calcium citrate (CALCITRATE) tablet 950 mg 950 mg, Oral, DAILY, First dose on Thu09/17/18 at 0900, Until Discontinued, Routine Given 09/20/2018 9:04 AM EDT 950 mg Given 09/19/2018 9:22 AM EDT 950 mg Given 09/18/2018 9:31 AM EDT 950 mg cholecalciferol (Vitamin D3) tablet 1,000 Units 1,000 Units, Oral, DAILY, First dose on Thu09/17/18 at 0900, Until Discontinued, Routine Given 09/20/2018 9:04 AM EDT 1,000 Units Given 09/19/2018 9:22 AM EDT 1,000 Units Given 09/18/2018 9:32 AM EDT 1,000 Units Dextromethorphan HBr 5 mg/5 mL oral syrup 10 mg 10 mg, Oral, EVERY 6 HOURS SCHEDULED, First dose on Thu09/17/18 at 1200, Until Discontinued Given 09/20/2018 12:09 PM EDT 10 mg Given 09/20/2018 5:22 AM EDT 10 mg Given 09/19/2018 11:57 PM EDT 10 mg dextrose 50% intravenous solution 25-50 mL 25-50 mL (12.5-25 g), Intravenous, EVERY 1 HOUR PRN, Starting on Thu09/14/18 at 2058, Until Thu09/20/18 at [...] insulin., Routine enoxaparin (LOVENOX) injection 40 mg 40 mg, Subcutaneous, NIGHTLY, First dose on Thu09/16/18 at 2100, Until Discontinued, Routine Given 09/19/2018 8:26 PM EDT 40 mg Given 09/18/2018 8:15 PM EDT 40 mg Given 09/17/2018 9:38 PM EDT 40 mg gabapentin (NEURONTIN) capsule 300 mg 300 mg, Oral, 3 TIMES DAILY, First dose on Thu09/17/18 at 1015, Until Discontinued, Routine Given 09/20/2018 9:04 AM EDT 300 mg Given 09/19/2018 8:26 PM EDT 300 mg Given 09/19/2018 3:13 PM EDT 300 mg glucagon (human recombinant) injection SolR 1 mg 1 mg, Intramuscular, EVERY 1 HOUR PRN, Starting on Thu09/14/18 at 2058, Until Thu09/20/18 at [...] Buccal, EVERY 30 MIN PRN, Starting on Thu09/14/18 at 2058, Until Thu09/20/18 at [...] minutes., Routine HYDROmorphone (DILAUDID) tablet 6 mg 6 mg, Oral, EVERY 4 HOURS PRN, Starting on Thu09/17/18 at 0956, Until Thu09/20/18 at 1914, Pain, for severe pain (7-10), May give an additional 2 mg once if pain not relieved in 30-60 minutes., Routine Given 09/20/2018 12:10 PM EDT 6 mg Given 09/20/2018 7:43 AM EDT 6 mg Given 09/20/2018 2:57 AM EDT 6 mg insulin lispro (HumaLOG) VIAL injection 1-4 Units 1-4 Units, Subcutaneous, EVERY 4 HOURS [...] specifically told to do so., Routine Given 09/20/2018 8:59 AM EDT 2 Units Given 09/19/2018 11:57 PM EDT 1 Units Given 09/19/2018 8:19 PM EDT 1 Units lidocaine (LIDODERM) 5 % patch 3 patch 3 patch, Transdermal, EVERY 24 HOURS, First dose on Thu09/17/18 at 1015, Until Discontinued, Apply patch(es) for 12 hours, and then remove for 12 hours, Routine Patch Applied 09/20/2018 12:12 PM EDT 3 patches 16- Thigh Anterior (Right) Patch Applied 09/19/2018 12:29 PM EDT 3 patches 20-Other (document in comment section) Patch Applied 09/17/2018 10:28 AM EDT 3 patches 16- Thigh Anterior (Right) lidocaine (LIDODERM) patch REMOVAL Transdermal, EVERY 24 HOURS, First dose on Thu09/17/18 at 2200, Until Discontinued, Remove lidocaine 5 %(700 mg/patch) patch Nicotine inhalation system (Nicotrol Inhaler) 1 cartridge 1-4 Cartridge, Inhalation, EVERY 4 HOURS PRN, Starting on Thu09/15/18 at 1640, Until Thu09/20/18 at 1914, smoking cessation, Start with 1 cartridge. May use additional cartridges based on patient request up to a max of 4 cartridges every 4 hours. Given 09/19/2018 9:26 AM EDT 1 Cartridge Given 09/19/2018 4:49 AM EDT 1 Cartridge Given 09/18/2018 8:14 PM EDT 1 Cartridge ondansetron (ZOFRAN) injection 4 mg 4 mg, Intravenous, EVERY 8 HOURS PRN, Starting on Thu09/14/18 at 2125, Until Thu09/20/18 at 1914, Nausea Given 09/16/2018 7:21 AM EDT 4 mg Given 09/15/2018 9:10 AM EDT 4 mg Given 09/14/2018 9:53 PM EDT 4 mg polyethylene glycol (MIRALAX) packet 17 g 17 g, Oral, 2 TIMES DAILY, First dose on Thu09/14/18 at 2315, Until Discontinued, Routine Given 09/15/2018 8:19 AM EDT 17 g prochlorperazine (COMPAZINE) injection 10 mg 10 mg, Intravenous, EVERY 6 HOURS PRN, Starting on Thu09/14/18 at 2329, Until Thu09/20/18 at 1914, Nausea, Routine Given 09/15/2018 8:51 PM EDT 10 mg Given 09/14/2018 11:58 PM EDT 10 mg senna-docusate (PERICOLACE) 8.6-50 mg per tablet 2 tablet 2 tablet, Oral, 2 TIMES DAILY, First dose on Thu09/14/18 at 2315, Until Discontinued, Routine Given 09/20/2018 9:04 AM EDT 2 tablets Given 09/19/2018 8:27 PM EDT 2 tablets Given 09/19/2018 9:22 AM EDT 2 tablets simvastatin (ZOCOR) tablet 20 mg 20 mg, Oral, EVERY EVENING, First dose on Thu09/14/18 at 2315, Until Discontinued, Routine Given 09/19/2018 5:09 PM EDT 20 mg Given 09/18/2018 6:09 PM EDT 20 mg Given 09/17/2018 6:22 PM EDT 20 mg sodium chloride 0.9% infusion 1,000 mL, at 100 mL/hr, Intravenous, CONTINUOUS, Starting on Thu09/14/18 at 2315, Until Thu09/20/18 at 1914 New Bag 09/16/2018 8:00 PM EDT 1,000 mLs 100 m L/hr New Bag 09/15/2018 2:10 PM EDT 1,000 mLs 100 mL/hr New Bag 09/15/2018 12:58 AM EDT 1,000 mLs 100 mL/hr documented in this encounter Active and Recently Administered Medications Times are shown in EDT. Scheduled Medication Order 09/18/2018 09/19/2018 09/20/2018 acetaminophen (TYLENOL) tablet 1,000 mg 1,000 mg, Oral, EVERY 8 HOURS SCHEDULED, First dose on Thu09/14/18 at 2315, Until Discontinued, Maximum dose of acetaminophen is 4000 mg from all sources in 24 hours., Routine 0501 (Given - Provider: Fely Freeman RN)1327 (Given - Provider: Mai Bose, JULI)2013 (Given - Provider: Fely Freeman RN) 0413 (Given - Provider: Fely Freeman, JULI)1226 (Given - Provider: Mai Bose RN)2024 (Given - Provider: Stacey Duenas, JULI) 0522 (Given - Provider: Stacey Duenas, JULI)1210 (Given - Provider: Tiana Lujan, JULI) calcium citrate (CALCITRATE) tablet 950 mg 950 mg, Oral, DAILY, First dose on Thu09/17/18 at 0900, Until Discontinued, Routine 0931 (Given - Provider: Mai Bose RN) 0922 (Given - Provider: Mai Bose RN) 0904 (Given - Provider: Tiana Lujan, JULI) cholecalciferol (Vitamin D3) tablet 1,000 Units 1,000 Units, Oral, DAILY, First dose on Thu09/17/18 at 0900, Until Discontinued, Routine 0932 (Given - Provider: Mai Bose RN) 0922 (Given - Provider: Mai Bose RN) 0904 (Given - Provider: Tiana Lujan, JULI) Dextromethorphan HBr 5 mg/5 mL oral syrup 10 mg 10 mg, Oral, EVERY 6 HOURS SCHEDULED, First dose on Thu09/17/18 at 1200, Until Discontinued 0501 (Given - Provider: Fely Freeman RN)1157 (Given - Provider: Mai Bose RN)1809 (Given - Provider: Mai Bose RN)2327 (Given - Provider: Fely Freeman RN) 0514 (Given - Provider: Fely Freeman, JULI)1306 (Given - Provider: Mai Bose RN)1820 (Given - Provider: Mai Bose RN)2357 (Given - Provider: Stacey Duenas, JULI) 0522 (Given - Provider: Stacey Duenas, JULI)1209 (Given - Provider: Tiana Lujan, JULI) enoxaparin (LOVENOX) injection 40 mg 40 mg, Subcutaneous, NIGHTLY, First dose on Thu09/16/18 at 2100, Until Discontinued, Routine 2014 (Given - Provider: Fely Freeman RN) 2025 (Given - Provider: Stacey Duenas, JULI) gabapentin (NEURONTIN) capsule 300 mg 300 mg, Oral, 3 TIMES DAILY, First dose on Thu09/17/18 at 1015, Until Discontinued, Routine 0932 (Given - Provider: Mai Bose RN)1523 (Given - Provider: Mai Bose RN)2014 (Given - Provider: Fely Freeman RN) 0922 (Given - Provider: Mai Bose RN)1513 (Given - Provider: Mai Bose, JULI)202 (Given - Provider: Stacey Duenas, JULI) 0904 (Given - Provider: Tiana Lujan, RN)1500 (Due) insulin lispro (HumaLOG) VIAL injection 1-4 Units(Linked Group 1) 1-4 Units, Subcutaneous, EVERY 4 HOURS SCHEDULED, [...] unless specifically told to do so., Routine 0400 (Not Given - Provider: Fely Freeman RN - Reason: Order parameters not met - Comment: FSBS 125)0800 (Not Given - Provider: Mai Bose RN - Reason: Order parameters not met)1210 (Given - Provider: Mai Bose RN)1709 (Given - Provider: Mai Bose RN)2000 (Not Given - Provider: Fely Freeman RN - Reason: Order parameters not met - Comment: FSBS 103)2327 (Given - Provider: Fely Freeman RN) 0400 (Not Given - Provider: Fely Freeman RN - Reason: Order parameters not met - Comment: FSBS 105)0800 (Not Given - Provider: Mai Bose RN - Reason: Order parameters not met)1226 (Given - Provider: Mai Bose RN)1708 (Given - Provider: Mai Bose RN)2019 (Given - Provider: Stacey Duenas, JULI)2357 (Given - Provider: Stacey Duenas, JULI) 0405 (Not Given - Provider: Stacey Duenas RN - Reason: Order parameters not met)0859 (Given - Provider: Tiana Lujan, RN)1200 (Not Given - Provider: Tiana Lujan, JULI - Reason: Order parameters not met)1600 (Due - Provider: Admin Adt) lidocaine (LIDODERM) 5 % patch 3 patch(Linked Group 2) 3 patch, Transdermal, EVERY 24 HOURS, First dose on Thu09/17/18 at 1015, Until Discontinued, Apply patch(es) for 12 hours, and then remove for 12 hours, Routine 0935 (Not Given - Provider: Mai Bose RN - Reason: Patient/family refused - Comment: pt reports these patched don't work, only the Dilaudid works) 1229 (Patch Applied - Provider: Mai Bose RN - Comment: R leg) 1212 (Patch Applied - Provider: Tiana Lujan, RN) lidocaine (LIDODERM) patch REMOVAL(Linked Group 2) Transdermal, EVERY 24 HOURS, First dose on Thu09/17/18 at 2200, Until Discontinued, Remove lidocaine 5 %(700 mg/patch) patch 2200 (Patch Not Removed (add comment) - Provider: Fely Freeman RN - Comment: pt did not have patch on) 2200 (Patch Removed - Provider: Stacey Duenas RN) magnesium sulfate 2 g in sterile water 50 mL (COMPLETED) 2 g, Intravenous, ONCE, 1 dose, On Thu09/18/18 at 0845, Administer over 120 Minutes 0934 (New Bag - Provider: Mai Bose RN)1134 (Stopped - Provider: Mai Bose RN) polyethylene glycol (MIRALAX) packet 17 g 17 g, Oral, 2 TIMES DAILY, First dose on Thu09/14/18 at 2315, Until Discontinued, Routine 0932 (Not Given - Provider: Mai Bose RN - Reason: Patient/family refused - Comment: pt requesting Dulcolax supp.)2100 (Not Given - Provider: Fely Freeman RN - Reason: Patient/family refused) 0900 (Not Given - Provider: Mai Bose RN - Reason: Patient/family refused)202 (Not Given - Provider: Stacey Duenas RN - Reason: Patient/family refused) 0900 (Not Given - Provider: Tiana Lujan, JULI - Reason: Patient/family refused) potassium chloride (K-DUR/KLOR-CON) extended release tablet 40 mEq (COMPLETED) 40 mEq, Oral, EVERY 4 HOURS, 3 doses, First dose on Thu09/18/18 at 0700, Last dose on Thu09/18/18 at 1500, Routine 0651 (Given - Provider: Fely Freeman RN)1157 (Given - Provider: Mai Bose, JULI)1520 (Given - Provider: Mai Bose, JULI) senna-docusate (PERICOLACE) 8.6-50 mg per tablet 2 tablet 2 tablet, Oral, 2 TIMES DAILY, First dose on Thu09/14/18 at 2315, Until Discontinued, Routine 0932 (Given - Provider: Mai Bose RN)2013 (Given - Provider: Fely Freeman RN) 0922 (Given - Provider: Mai Bose RN)2026 (Given - Provider: Stacey Duenas, JULI) 0904 (Given - Provider: Tiana Lujan, JULI) simvastatin (ZOCOR) tablet 20 mg 20 mg, Oral, EVERY EVENING, First dose on Thu09/14/18 at 2315, Until Discontinued, Routine 1809 (Given - Provider: Mai Bose RN) 1709 (Given - Provider: Mai Bose RN) 1700 (Due - Provider: Admin Adt) Continuous Medication Order 09/18/2018 09/19/2018 09/20/2018 sodium chloride 0.9% infusion 1,000 mL, at 100 mL/hr, Intravenous, CONTINUOUS, Starting on Thu09/14/18 at 2315, Until Thu09/20/18 at 1914 PRN Medication Order 09/18/2018 09/19/2018 09/20/2018 dextrose 50% intravenous solution 25-50 mL(Linked Group 3) 25-50 mL (12.5-25 g), Intravenous, EVERY 1 HOUR PRN, Starting on Thu09/14/18 at 2058, Until Thu09/20/18 at [...] 1 mg, Intramuscular, EVERY 1 HOUR PRN, Starting on Thu09/14/18 at 2057, Until Thu09/20/18 at 191, [...] Buccal, EVERY 30 MIN PRN, Starting on Thu09/14/18 at 2058, Until Thu09/20/18 at [...] HYDROmorphone (DILAUDID) tablet 2 mg(Linked Group 4) 2 mg, Oral, EVERY 4 HOURS PRN, Starting on Thu09/17/18 at 0956, Until 09/20/18 at 1914, Pain, for mild pain (1-3), May give an additional 2 mg once if pain not relieved in 30-60 minutes., Routine 0223 (See Alternative - Provider: Fely Freeman, JULI)0623 (See Alternative - Provider: Fely Freeman, JULI)1026 (See Alternative - Provider: Mai Bose RN)1520 (See Alternative - Provider: Mai Bose, JULI)2013 (See Alternative - Provider: Fely Freeman RN) 000 (See Alternative - Provider: Fely Freeman RN)0413 (See Alternative - Provider: Fely Freeman RN)0922 (See Alternative - Provider: Mai Bose RN)1318 (See Alternative - Provider: Mai Bose, JULI)1820 (See Alternative - Provider: Mai Bose RN)2233 (See Alternative - Provider: Stacey Duenas RN) 0257 (See Alternative - Provider: Stacey Duenas, JULI)0743 (See Alternative - Provider: Stacey Duenas, JULI)1210 (See Alternative - Provider: Tiana Lujan, JULI) HYDROmorphone (DILAUDID) tablet 4 mg(Linked Group 4) 4 mg, Oral, EVERY 4 HOURS PRN, Starting on Thu09/17/18 at 0956, Until Thu09/20/18 at 1914, Pain, for moderate pain (4-6), May give an additional 2 mg once if pain not relieved in 30-60 minutes., Routine 0223 (See Alternative - Provider: Fely Freeman RN)0623 (See Alternative - Provider: Fely Freeman RN)1026 (See Alternative - Provider: Mai Bose RN)1520 (See Alternative - Provider: Mai Bose RN)2013 (See Alternative - Provider: Fely Freeman RN) 6 (See Alternative - Provider: Fely Freeman RN)412 (See Alternative - Provider: Fely Freeman RN)0922 (See Alternative - Provider: Mai Bose, JULI)1318 (See Alternative - Provider: Mai Bose, JULI)1820 (See Alternative - Provider: Mai Bose RN)2233 (See Alternative - Provider: Stacey Duenas RN) 0257 (See Alternative - Provider: Stacey Duenas, JULI)0743 (See Alternative - Provider: Stacey Duenas, JULI)1210 (See Alternative - Provider: Tiana Lujan, JULI) HYDROmorphone (DILAUDID) tablet 6 mg(Linked Group 4) 6 mg, Oral, EVERY 4 HOURS PRN, Starting on Thu09/17/18 at 0956, Until Thu09/20/18 at 1914, Pain, for severe pain (7-10), May give an additional 2 mg once if pain not relieved in 30-60 minutes., Routine 0223 (Given - Provider: Fely Freeman RN)0623 (Given - Provider: Fely Freeman RN)1026 (Given - Provider: Mai Bose RN)1520 (Given - Provider: Mai Bose RN)2014 (Given - Provider: Fely Freeman RN) 0007 (Given - Provider: Fely Freeman RN)0413 (Given - Provider: Fely Freeman RN)0922 (Given - Provider: Mai Bose RN)1318 (Given - Provider: Mai Bose RN)1820 (Given - Provider: Mai Bose RN)2233 (Given - Provider: Stacey Duenas, JULI) 0257 (Given - Provider: Stacey Duenas, JULI)0743 (Given - Provider: Stacey Duenas, JULI)1210 (Given - Provider: Tiana Lujan, JULI) ipratropium-albuterol (DUONEB) 0.5 mg-3 mg(2.5 mg base)/3 mL nebulizer solution 3 mL 3 mL, Nebulization, EVERY 4 HOURS PRN, Starting on Thu09/14/18 at 2257, Until Thu09/20/18 at 1914, Wheezing, shortness of breath, Routine Nicotine inhalation system (Nicotrol Inhaler) 1 cartridge 1-4 Cartridge, Inhalation, EVERY 4 HOURS PRN, Starting on Thu09/15/18 at 1640, Until Thu09/20/18 at 1914, smoking cessation, Start with 1 cartridge. May use additional cartridges based on patient request up to a max of 4 cartridges every 4 hours. 1109 (Given - Provider: Mai Bose RN)1527 (Given - Provider: Mai Bose RN)2013 (Given - Provider: Fely Freeman RN) 0449 (Given - Provider: Fely Freeman RN)8295 (Given - Provider: Mai Bose, JULI) ondansetron (ZOFRAN) injection 4 mg 4 mg, [...] First occurrence on Thu09/15/18 at 0000, Until Specified, Consider choosing EVERY 4 HOURS as frequency for: - Type 1 Diabetes - At least 24 hours after coming off an insulin drip - At least 24 hours after admission for DKA - Hypoglycemia unawareness - Patients who are otherwise unstable Select the same frequency for the correction bolus insulin order And insulin lispro (HumaLOG) VIAL injection 1-4 UnitsJump to med 1-4 Units, Subcutaneous, EVERY 4 HOURS SCHEDULED, [...] unless specifically told to do so., Routine Group 2: lidocaine (LIDODERM) 5 % patch 3 patchJump to med 3 patch, Transdermal, EVERY 24 HOURS, First dose on Thu09/17/18 at 1015, Until Discontinued, Apply patch(es) for 12 hours, and then remove for 12 hours, Routine And lidocaine (LIDODERM) patch REMOVALJump to med Transdermal, EVERY 24 HOURS, First dose on Thu09/17/18 at 2200, Until Discontinued, Remove lidocaine 5 %(700 mg/patch) patch Group 3: glucose (GLUTOSE) 40% oral gelJump to med 15-30 g, Buccal, EVERY 30 MIN PRN, Starting on Thu09/14/18 at 2057, Until Thu09/20/18 at 1913, Low blood sugar, For BG 50-70 mg/dL: [...] a central line. For persistent hypoglycemia, consider longer- acting treatment for the duration of the active insulin. 1 tube contains 15 grams of glucose (net weight of tube = 37.5 grams., Routine Or dextrose 50% intravenous solution 25-50 mLJump to med 25-50 mL (12.5-25 g), Intravenous, EVERY 1 HOUR PRN, Starting on Thu09/14/18 at 2057, Until Thu09/20/18 at 1913, Low blood sugar, For BG 50-70 mg/dL: [...] the duration of the active insulin., Routine Or glucagon (human recombinant) injection SolR 1 mgJump to med 1 mg, Intramuscular, EVERY 1 HOUR PRN, Starting on Thu09/14/18 at 2058, Until Thu09/20/18 at 191, [...] the duration of the active insulin., Routine Group 4: HYDROmorphone (DILAUDID) tablet 2 mgJump to med 2 mg, Oral, EVERY 4 HOURS PRN, Starting on Thu09/17/18 at 0956, Until Thu09/20/18 at 1914, Pain, for mild pain (1-3), May give an additional 2 mg once if pain not relieved in 30-60 minutes., Routine Or HYDROmorphone (DILAUDID) tablet 4 mgJump to med 4 mg, Oral, EVERY 4 HOURS PRN, Starting on Thu09/17/18 at 0956, Until 09/20/18 at 191, Pain, for moderate pain (4-6), May give an additional 2 mg once if pain not relieved in 30-60 minutes., Routine Or HYDROmorphone (DILAUDID) tablet 6 mgJump to med 6 mg, Oral, EVERY 4 HOURS PRN, Starting on Thu09/17/18 at 0956, Until Thu09/20/18 at 191, Pain, for severe pain (7-10), May give an additional 2 mg once if pain not relieved in 30-60 minutes., Routine documented in this encounter Care Teams Director Vaccine Relationship Specialty Start Date End Date None None PCP - General 09/14/18 09/30/18 documented as of this encounter
--- OUTSIDE RECORDS SUMMARY | 2024-02-09 14:58 | XMS_ITS | Encounter Summary ---
Author Organization [facility] Address [facility] [place] [address] Care Team Providers Care Yarding Supervisor Name Role Phone None Primary Care Provider Unavailabl e Reason for Visit * Auth/Cert Specialty Diagnoses / Procedures Referred By Contac t Referred To Contact Diagnoses Fracture of unspecified tarsal bone(s) of unspecified foot, initial encounter for closed fracture CLOSED HEAD INJURY, FOOT BONE FX'S -CONFUSED Procedures EMERGENCY IPI Referral ID Status Reason Start Date Expiration Date Visits Re quested Visits Authorized [id number] 1 1 Encounter Details Date Type Department Care Team (Late st Contact Info) Description 09/16/2018 10:16 AM EDT Anesthesia Event [place] [address] Ron Duong MD [facility] [address] [place] [address] Chauncey Castro MD [facility] [place] [address] Anesthesia Record Procedure Summary Procedure Name Responsible Anesthesiologist Anesthesia Start Time Anesthesia Stop Time ORIF METATARSAL FX, EACH (WRVU 7.44) (Bilateral: Foot) Ron Duong MD 09/16/18 1016 09/16/18 1347 Events Date Time Event Comment 09/16/2018 0852 1016 AN Verify 1016 Start 1018 An Start Data 1023 An Induction 1025 An Intubation 1026 Anesthesia Ready 1048 An Tourn Inflated Right thig h 250 mmHg 1051 Procedure Start 1154 An Tourn Inflated Left thigh 250 mmHg 1205 An Tourn Deflated Right side deflated 1320 An Tourn Deflated Left side 1336 Extubation/LMA Out 1339 an stop data 1343 Recovery or ICU Handoff Libra ent care was transferred to the destination unit staff after review of the patient's medical history, current anesthetic/surgical status and plan, according to the Provider Handoff Checklist. 1347 Stop Meds Name Total BUpivacaine 0.25% 40 mL fentaNYL 200 mcg IV Lidocaine 30 mg Propofol 200 mg Rocuronium 50 mg ePHEDrine 5 mg Ondansetron 4 mg Neostigmine 4 mg Glycopyrrolate 0.6 mg Propofol INF 680.6 mg Dexmedetomidine 20 mcg ceFAZolin 2 g Lactated Ringers 600 mL Lactated Ringers 1,000 mL * Agents Name O2 Air N2O Sevoflurane (et) * Blood No blood administrations on file. Lines, Drains, and Airways Type Details Placement Removal (RETIRED) Peripheral IV Line - Single Lumen 09/15/18; 2255; basilic vein (medial side of arm), left; 1 in length, 22 gauge; Yobani montano RN, VAS; tolerated well, distraction; 0; leaking; site symptomatic, catheter/device intact; 09/18/18; 194909/15/182255 by Mar Montano RN 09/18/181949 by Mar Montano RN ETT Mask Ventilation: Ea sy (1); ETT Type: Cuffed, Oral; ETT Size: 7 mm; Mac Blade: 3; Notes: Asleep, Pre-O2, Stylette; Attempts: 1; Laryngoscopy Grade: 1; ETT Placement Verified By: Auscultation, Capnometry, Visual; Secured at Teeth: 21 cm; Inserted by: Lisa Birmingham CRNA; Removal Date: 09/16/18; Removal Time: 133509/16/18 1025 by Lisa Birmingham CRNA 09/16/18 1336 by Lisa Birmingham CRNA Urethral Catheter 09/16/18; 1030; Surg lizette longer than 2 hours; Physician order; indwelling double lumen catheter; latex; 14; inserted at this facility (by Lucina Escalante per protocol, clear yellow urine seen); 1; 5; 10; none; drainage bag to dependent drainage; 09/17/18; 0859 09/16/18 1030 by Lucina Escalante RN 09/17/18 0859 by Rhona Toro RN (RETIRED) Peripheral IV Line - Single Lumen 09/16/18; 1032; metacarpal vein (top of hand), left; [id number] catheter system; 20 gauge; Ron Duong; removed per policy/procedure, site symptomatic, catheter/device intact; 09/18/18; 1120 09/16/18 1032 by Lisa Birmingham CRNA 09/18/18 1120 by Emma Roth RN Incision 09/16/18; 1049; foot ; 01/20/22 (LDA cleanup utility RA#[id number]); 1715 (LDA cleanup utility RA#[id number]) 09/16/18 1049 by Lucina Escalante RN 01/20/22 1715 by Yadiel Hylton Incision 09/16/18; 1049; foot ; 01/20/22 (LDA cleanup utility RA#[id number]); 1715 (LDA cleanup utility RA#[id number]) 09/16/18 1049 by Lucina Escalante RN 01/20/22 1715 by Yadiel Hylton Incision 09/16/18; 1210; firs t toe; 3 kwires implanted into tops of toes; 01/20/22 (LDA cleanup utility RA#[id number]); 1715 (LDA cleanup utility RA#[id number]) 09/16/18 1210 by Lucina Escalante RN 01/20/22 1715 by Yadiel Hylton Incision 09/16/18; 1210; firs t toe; 3 kwires inserted into tops of toes ; 01/20/22 (LDA cleanup utility RA#[id number]); 1715 (LDA cleanup utility RA#[id number]) 09/16/18 1210 by Lucina Escalante RN 01/20/22 1715 by Yadiel Hylton documented in this encounter Social History Tobacco Use Types Packs/Day Years Used Date Smoking Tobacco: Former Sex and Gender Information Value Date Recorded Sex Assigned at Not on file Gender Identity Not on file Sexual Orientation Not on file documented as of this encounter OR Notes * Anesthesia Postprocedure Evaluation - Ron Duong MD - 09/16/2018 4:11 PM ED[place] [facility] [place]hesiology Post-procedure Note Patient: Jenae La Procedure Summary Date: 09/16/18 Room / Location: [facility] OR [facility] MAIN OR Anesthesia Start: 1016 Anesthesia Stop: [...] All Anesthesia Providers: Anesthesiologist: Ron Duong MD MARKETING FINANCIAL ANALYST: Lisa Birmingham CRNA Vitals Value Taken Time BP 135/75 09/16/2018 2:39 PM Temp 36.2 ??C (97.2 ??F) 09/16/2018 2:39 PM Pulse 61 09/16/2018 2:41 PM Resp 15 09/16/2018 2:41 PM SpO2 97 % 09/16/2018 2:56 PM Pain Level 9 09/16/2018 2:39 PM Vitals shown include unvalidated device data. Patient Location: PACU/[facility] Level of Consciousness: Awake and Alert Pain Management: Satisfactory Analgesia PONV: None Cardiovascular Status: At Baseline and Hemodynamically Stable Respiratory Status: At Baseline and Room Air Postoperative Fluid Status: Intravascular EUvolemia Possible Anesthetic Complications: NONE apparent at time of evaluation Final Primary Anesthesia Type: General (The anesthetic type performed was the same as planned.) Comments: Ron Duong MD * Anesthesia Procedure Notes - Delvin Byrd MD [...] Chlorhexidine Skin Anesthetic: Lidocaine 1% dose: 6 [id number]-[id number] 21 10 cm Ultrasound Guided: Live and [...] Single-shot BUpivacaine 0.25%, 40 mL no complications Resident/MARKETING FINANCIAL ANALYST:: Delvin Byrd MD Fellow:: Chauncey Castro MD Attending Physician:: Ron Duong MD 20mL's each side * Anesthesia Preprocedure Evaluation - Ron Duong MD [...] 12.0 09/15/2018 No results found for: TSH, U5ESQBB, TT4, THYROIDAB No results found for: HA1C Plan is for GA with ETT, standard ASA monitors, and adequate IV access. Bilateral pop-sciatic, saphenous nerve blocks for post op pain control Region - Other Informed Consent: Anesthetic plan and risks discussed with patient. Use of blood products discussed with patient who consented to blood products. Plan discussed with MARKETING FINANCIAL ANALYST and attending. PAT Clinic Note documented in this encounter Plan of Treatment Not on file documented as of this encounter Procedures Procedure Name Priority Date/Time Associated Diagnosis Comments ANESTHESIA BLOCK Routine 09/16/2018 9:50 AM EDT documented in this encounter Results * Anesthesia Block (09/16/2018 9:50 AM EDT) Narrative Ron Duong MD - 09/16/2018 9:50 AM EDT Delvin Byrd MD ? 09/16/2018 ??9:52 AM Anesthesia Block Date/Time: 09/16/2018 9:15 AM Performed by: Delvin Byrd MD Authorized by: Ron Duong MD Start Time: ??09/16/2018 9:00 AM End Time: ??09/16/2018 9:10 AM Patient Location: ??Block Room The patient was greeted; the risks and benefits of the procedure were reviewed. ?? Indication: ??Post-op Pain Control Post-op pain management at the request of surgeon. ?? Block Type: ??Adductor canal block and sciatic sciatic/ popliteal nerve block Laterality: ??Bilateral Position: ??Supine Prep: ??Chlorhexidine Skin Anesthetic: ??Lidocaine 1% dose: ??6 I-xbjrc-icxsh 21 10 cm Ultrasound Guided: ??Live and [...] BUpivacaine 0.25%, 40 mL no complications ?? Resident/MARKETING FINANCIAL ANALYST:: ??Delvin Byrd MD Fellow:: ??Chauncey Castro MD Attending Physician:: ??Ron Duong MD 20mL's each side Ron Duong MD [employer] documented in this encounter Visit Diagnoses Not on filedocumented in this encounter Administered Medications Inactive Administered Medications - up to 3 most recent administrations Medication Order MAR Action Action Date Dose Rate Site BUpivacaine (MARACAINE) 0.25% bolus injection (Anesthesia) Epidural, Starting on Gloria 09/16/18 at 0915, Until Gloria 09/16/18 at 0915, Anesthesia Intra-op, Routine Given 09/16/2018 9:15 AM EDT 40 mLs ceFAZolin (ANCEF) 1g in dextrose 5% 50mL PRN, Starting on Gloria 09/16/18 at 1049, Until Gloria 09/16/18 at 1351, Administer over 30 Minutes, Anesthesia Intra-op Given 09/16/2018 10:49 AM EDT 2 g dexmedetomidine (PRECEDEX) injection PRN, Starting on Gloria 09/16/18 at 1046, Until Glroia 09/16/18 at 1351, Anesthesia Intra-op, Routine Given 09/16/2018 11:59 AM EDT 12 mcg Given 09/16/2018 10:46 AM EDT 8 mcg ePHEDrine 5 mg/mL multi-dose injection PRN, Starting on Gloria 09/16/18 at 1116, Until Gloria 09/16/18 at 1351, Anesthesia Intra-op, Routine Given 09/16/2018 11:16 AM EDT 5 mg fentaNYL 50 mcg/mL multi-dose injection PRN, Starting on Gloria 09/16/18 at 1027, Until Gloria 09/16/18 at 1351, Anesthesia Intra-op, Routine Given 09/16/2018 1:06 PM EDT 50 mcg Given 09/16/2018 12:02 PM EDT 50 mcg Given 09/16/2018 10:31 AM EDT 50 mcg glycopyrrolate (ROBINUL) multi-dose injection PRN, Starting on Gloria 09/16/18 at 1155, Until Gloria 09/16/18 at 1351, Anesthesia Intra-op, Routine Given 09/16/2018 11:55 AM EDT 0.6 mg lactated ringers infusion CONTINUOUS PRN, Starting on Gloria 09/16/18 at 1016, Until Gloria 09/16/18 at 1351, Anesthesia Intra-op New Bag 09/16/2018 10:16 AM EDT lactated ringers infusion CONTINUOUS PRN, Starting on Gloria 09/16/18 at 1036, Until Gloria 09/16/18 at 1351, Anesthesia Intra-op New Bag 09/16/2018 10:36 AM EDT lidocaine (PF) (XYLOCAINE) 100 mg/5 mL (2 %) injection PRN, Starting on Gloria 09/16/18 at 1023, Until Gloria 09/16/18 at 1351, Anesthesia Intra-op, Routine Given 09/16/2018 10:23 AM EDT 30 mg neostigmine (BLOXIVERZ) injection PRN, Starting on Gloria 09/16/18 at 1155, Until Gloria 09/16/18 at 1351, Anesthesia Intra-op, Routine Given 09/16/2018 11:55 AM EDT 4 mg ondansetron (ZOFRAN) injection PRN, Starting on Gloria 09/16/18 at 1301, Until Gloria 09/16/18 at 1351, Anesthesia Intra-op, Routine Given 09/16/2018 1:01 PM EDT 4 mg propofol (DIPRIVAN) 10 mg/mL bolus injection (Anesthesia) PRN, Starting on Gloria 09/16/18 at 1023, Until Gloria 09/16/18 at 1351, Anesthesia Intra-op Given 09/16/2018 10:31 AM EDT 50 mg Given 09/16/2018 10:23 AM EDT 150 mg propofol (DIPRIVAN) infusion CONTINUOUS PRN, Starting on Gloria 09/16/18 at 1032, Until Gloria 09/16/18 at 1351, Anesthesia Intra-op, Routine Rate/Dose Change 09/16/2018 1:01 PM EDT 30 mcg/kg/min 14.9 mL/hr New Bag 09/16/2018 10:32 AM EDT 50 mcg/kg/min 24.9 mL/h r rocuronium (ZEMURON) multi-dose injection PRN, Starting on Gloria 09/16/18 at 1023, Until Gloria 09/16/18 at 1351, Anesthesia Intra-op, Routine Given 09/16/2018 10:23 AM EDT 50 mg documented in this encounter Care Teams Yarding Supervisor Relationship Specialty Start Date End Date None None PCP - General 09/14/18 09/30/18 documented as of this encounter
--- OUTSIDE RECORDS SUMMARY | 2024-02-09 14:58 | XMS_ITS | Encounter Summary ---
Author Organization [facility] [place] [address] Care Team Providers Care Business Unit Director Name Role Phone None Primary Care Provider Unavailabl e Reason for Visit * Auth/Cert Specialty Diagnoses / Procedures Referred By Contac t Referred To Contact Diagnoses Fracture of unspecified tarsal bone(s) of unspecified foot, initial encounter for closed fracture CLOSED HEAD INJURY, FOOT BONE FX'S -CONFUSED Procedures EMERGENCY IPI Referral ID Status Reason Start Date Expiration Date Visits Re quested Visits Authorized [id number] 1 1 Encounter Details Date Type Department Care Team (Latest Contact Info) Description 09/14/2018 7:05 PM EDT - 09/20/2018 5:09 PM EDT Hospital Encounter 3 [place] [id number] Javad Urban MD [facility] [place] [address] S/P ORIF bilateral foot fractures, 09/16/18 (Gitajn) Discharge Disposition: Home with VNA Social History Tobacco Use Types Packs/Day Years [...] 37.5 ??C (99.5 ??F) 09/20/2018 11:33 AM E DT Respiratory Rate 22 09/20/2018 11:33 AM EDT [...] Jenae La Patient Age: 53 y.o. Language: Mongolian Race: White Ethnicity: Not nor Admit date: 09/14/2018 Discharge date and time: 09/20/2018 Attending Physician: Javad Urban MD Discharge Physician: Javad Urban MD Follow-up Recommendations for Providers: See discharge instructions for additional details. Future Appointments Date Time Provider Department Center 10/01/2018 10:00 AM [facility] DX ROOM 1 Xray Leb Rad Clin 10/01/2018 11:00 AM Mary Ellison PA Leb Ortho 3C [facility] 11/08/2018 1:00 PM Abdirahman Enamorado MD Leb Neuro [facility] Inpatient Provider Contact Information: Javad Urban MD Orthopedics: [phone] After hours and weekends, call [facility] Regional Education Manager, , and have the Orthopedic resident paged. [...] the orthopaedics service as a transfer from [facility] for operative management of bilateral complex [...] multiple times, leading her to present to [facility] on 09/12/2018 for evaluation. ?? Initial work-up at [facility] revealed sepsis secondary to suspected community- acquired pneumonia, mild acute exacerbation of COPD, a closed head injury with postconcussive syndrome, multiple bilateral foot fractures, and MANUEL, resulting in hospital admission. Upon presentation to the [facility] ED, her and herjake reported instances of [...] no active bleeding observed. General Surgery at [facility] evaluated the patient, and felt no further action was required besides outpatient follow up. ?? Upon arrival to [facility], Mrs. La reports moderate pain in her [...] Orthopedic Surgery Service as a transfer from [facility] for definitive operative management of bilateral complex [...] demonstrated seizure-like activity during her presentation at [facility], thus would recommend consulting Neurology to determine??the [...] a transfer to the orthopedic service from [facility] for bilateral complex foot fractures. ?? Patient [...] Discharge to: Home HOME HEALTH CARE AGENCY: ??[facility] ?? PHONE: [phone] FAX: [phone] Updated Allergies/ADRs: Allergies Allergen Reactions ??? Sulfa [...] Dose Details ANISHA WU INHL Refills: 0 BASAGLAR KWIKPEN U-100 INSULIN [...] bowel movement. You can also take an rnjw-opz-zynhlzg medication, Miralax if needed to combat constipation. [...] skin and wound problems. Call your doctor ([phone]) if you develop: 1. Fever greater than [...] 1. You will have follow-up appointments at [facility] as indicated in Future Appointment and Orders. You will have an xray prior to those appointments so please come to Radiology, desk 3T, 1 hour BEFORE your appointment for those x-rays. Future Appointments Date Time Provider Department Center 10/01/2018 10:00 AM [facility] DX ROOM 1 Xray Leb [facility] Clin 10/01/2018 11:00 AM Mary Ellison PA Leb Ortho 3[facility] 11/08/2018 1:00 PM Abdirahman Enamorado MD Leb Neuro [facility] If you have questions or concerns: [...] Provider Department Dept Phone 10/01/2018 10:00 AM [facility] DX ROOM 1 XRay at [place] Arrive at: [place] [facility] [phone] Please go to [facility] [place] [facility] 3T ([place] Location). 10/01/2018 11:00 AM Mary Ellison PA Orthopaedics at [place] Arrive at: [place] [facility] 3C [phone] 11/08/2018 1:00 PM Abdirahman Enamorado MD Neurology at [place] Arrive at: [place] [facility] 3C [phone] Future Orders Complete By Expires Durable Medical Equipment Order [EQ148 Custom] As directed Process Instructions: Scheduling Instructions: Comments: Non weight bearing bilateraly Questions: Name/Description of requested item: Drop arm commode Size requested: 20 Vendor Name/Contact information: [facility] Durable Medical Equipment Order [EQ148 Custom] As [...] board Size requested: Standard Vendor Name/Contact information: [employer] Durable Medical Equipment Order [EQ148 Custom] As directed Process Instructions: Scheduling Instructions: Comments: Jenae Nick[address] [facility] [phone] (home) No relevant phone numbers on file. Diagnosis:Bilateral fractures both feet requiring surgery Non weight barring Patient's: Hgt: 5'1 Wgt: 183 VENDOR: [employer] Ordering: Drop arm commode needed ARABELLA is required for discharge Questions: Name/Description of requested item: Drop arm Commode Size requested: Standard Vendor Name/Contact information: [employer] Referral to Home Health - at DISCHARGE [OFT4792 CPT(R)] As directed Process Instructions: Scheduling Instructions: Comments: DOCUMENTATION FOR VNA SERVICES (INCLUDING THOSE PATIENTS WITH MEDICARE COVERAGE REQUIRING HOME VNA SERVICES AND/OR HOSPICE SERVICES) PATIENT'S LOCATION: Jenae Nickerson [facility]. [facility] [address] (home) Cell: No relevant phone numbers on file. Solar Pool Heating Installer's Name: herself with 's assist In discussion with the attending physician, it is certified that this patient is under their care and that they, or a Nurse Practitioner,Clinical Nurse specialist or Physician Insole And Outsole Splitter who is working directly with them, had [...] extremity splints/dressings in place until Ortho f/u 5/10. Sutures to be removed by Ortho at f/u. PT ORDERS: Continue rehab for endurance, strength with mobility and transfers. Home safety evaluation. Home exercise program if appropriate. OT: assess and continue rehab for managing ADL's. Eval for TOBACCO SWEEPER: HOME HEALTH CARE AGENCY: [facility] PHONE: [phone] FAX: [phone] Start of care: 09/21/18 FOR MEDICARE ONLY: [...] this patient's PCP: LILLY Gaitan [address] / [place] [address] All A agencies which cover the area of patient's residence have been reviewed, either verbally irasema writing, and patient/family have chosen the home health care agency noted Questions: Agency name and contact information: [facility] Patient location post discharge: home What [...] with the wheelchair. Questions: Vendor Name/Contact information: [facility] Primary Care Provider: LILLY Gaitan [phone] Discharge References/Attachments None documented in this encounter [...] bowel movement. You can also take an xpit-pmh-bzgacmy medication, Miralax if needed to combat constipation. [...] skin and wound problems. Call your doctor ([phone]) if you develop: 1. Fever greater than [...] 1. You will have follow-up appointments at [facility] as indicated in Future Appointment and Orders. You will have an xray prior to those appointments so please come to Radiology, desk 3T, 1 hour BEFORE your appointment for those x-rays. Future Appointments Date Time Provider Department Center 10/01/2018 10:00 AM [facility] DX ROOM 1 Xray Leb Rad [...] TO 2 CAPSULES THEREAFTER 5 09/05/2018 10/25/2018 BASAGLEZEQUIEL MELONIEYANET U-100 INSULIN 100 unit/mL (3 mL) pen [...] ) Service Ortho Pager # Check daily [facility] is unable to supply the commode and the slide board . This keno writer/runner called several places andfound slide board at [facility] and [facility] as well that is being serviced . [...] discharge planning. Ivette Álvarez RN CM Pager [phone] * Ivette Álvarez RN - 09/20/2018 12:52 PM EDT The patient/resources representative has been provided a list of /DME vendors which serve their preferred geographic area. A letter describing our affiliations was reviewed with them and they were educated about their right to choose where referrals are placed. Patient requests referral to [facility] Expected date of discharge: 09/20/18 Referral routed to the Encoding Clerk for matching with agency/vendor and to provide any required information. Ivette Álvarez [facility] Beeper #[phone] * Ivette Álvarez RN - 09/20/2018 11:14 AM EDT Office of Care Managment (OCM /Caremanger (CM)/ Discharge planning ) Service Ortho Pager # check daily Patient is medically ready to go . Made call to [facility] to verify delivery of Wheelchair , slide board and drop arm commode for today (family said they can pick the items up on the way home ) Thalia from [facility] is checking with [facility] office to make sure items are available for them. Plan: CM will continue to follow for coordination of care and to facilitate discharge planning. ? Ivette Álvarez RN CM Pager [phone] * Ori Santos MD - 09/20/2018 5:39 [...] Pain well controlled. [facility]. Discharge likely today, dependent on DME delivery to [facility] home. Activity: NWB BLE. Strict elevation in splints. Closure: Sutures (remove 10-14 days) Dressing: DSD, splints. Drain: None Anticoagulation: Lovenox for 30 days Antibiotics: Empiric Ceftriaxone/Azithromycin for suspected CAP Consults: Medicine, Neuro Dispo: Like home today Follow-up: As scheduled Ori Santos MD 09/20/2018 Future Appointments Date Time Provider Department Center 10/01/2018 10:00 AM [facility] DX ROOM 1 Xray Leb Rad [...] with Med Team re pt DC today( [id number]). Pt to dc Thursday * Sanket Freeman [...] Time Provider Department Center 10/01/2018 10:00 AM [facility] DX ROOM 1 Xray Leb Rad [...] a transfer to the orthopedic service from [facility] for bilateral complex foot fractures. 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 Patient had [...] - PGY-3 General Neurology Consults Team Pager #[phone] 09/17/18 Associated attestation - Jose Swan MD - 09/17/2018 4:41 PM EDT I have seen and examined Jenae La with the neurology team on 09/17/2018 and agree with the assessment and plan as below. Face twitching. 53 Y F with history of DJD spine, DM, fibromyalgia being seen by Neurologist at [facility] Episodes of left sided facial twitching Stopped taking gabapentin recently due to side effects. Low suspicion for these being seizures. AEDs not needed at this time Recommended lower doses of gabapentin which she doesn't wish to take. Outpatient neurology followup Jose Swan MD Department of Neurology [facility] * Sanket Freeman MD - 09/17/2018 6:04 [...] Department of Orthopaedics 09/17/18 * Davin Ann, SPEEDOMETER MECHANIC - 09/16/2018 11:22 PM EDT Pt refused [...] 8:31 AM EDT Internal Medicine Consult Note (#[id number]) Progress Note Patient info: Name: Jenae La : 1965 PCP: LILLY Gaitan PCP phone number: [phone] Date of Admission: 09/14/2018 ( Hospital Day [...] Orthopedic Surgery Service as a transfer from [facility] for operative management of bilateral complex foot [...] GLUCOSE 135 ANIONGAP 9 Recent Labs 09/15/18 034 CALCIUM 7.9* LFT's: No results for input(s): BILITOT, BILIDIR, ALBUMIN, ALKPHOS, ALT, AST in the last 7068 hours. Coags: Recent Labs 09/15/18343 PT 12.0 INR 1.0 Cardiac enzymes: No results for input(s): TROPONINT, CK, PROBNP in the last 7068 hours. Endocrine: No results for input(s): TSH, CORTISOL in the last 7068 hours. Invalid input(s): [id number] Heme: No results for input(s): LDH, HAPTOGLOBIN, URICACID in the last 168 hours. ABG: ABG (Arterial Blood Gas) No results found for: PHART, PO2ART, BOW3CPI, YRK3EBA Microbiology: Site Date and Time Obtained Result [...] Orthopedic Surgery Service as a transfer from [facility] for definitive operative management of bilateral complex [...] demonstrated seizure-like activity during her presentation at [facility], thus would recommend consulting Neurology to determine [...] Lyon MD, PGY-3 09/16/2018 Medicine Consult # [id number] Associated attestation - Chris Stahl DO - [...] today vs tomorrow pending scheduling availability. Appreciate [facility] medicine recs. - Neuro consult today - Remain NPO for possible OR today - UA today - NWB B/l LE - Pain control: Oral multimodal pain medication - Discharge planning: likely rehab per PT - F/u TBD Sanket Freeman MD PGY-2 Orthopaedics * Davin Ann, SPEEDOMETER MECHANIC - 09/15/2018 11:00 PM EDT Pt had Nausea, NIV held this evening. * Kathrin Madsen RN - 09/15/2018 2:05 PM EDT Based on discussions with the multi-disciplinary healthcare team, the patient would benefit from snf/swing/acute level of care at discharge. ?? I have met with the patient/resources representative to discuss discharge planning needs. I have provided the [facility], Office of Care Management letter from the Radiology Interventional Physician pertaining to rehab referrals. I have also provided a letter describing our affiliations within the [facility] and educated them about their right to choose where referrals are placed. ?? I reviewed the different levels of rehab including SNF, swing, acute and LTAC with the patient/resources representative. ?? The patient/resources representative has been provided a list of facilities within their preferred geographic area. ?? I have requested that the patient/resources representative provide at least three choices for referral. ?? The patient/resources representative have requested referrals to: 2.[facility] [address] [place] [id number] ?? [phone] 1. [facility] [address] [place] [address] ?? [phone] ?? Expected date of discharge: 09/17/18 Note routed to Encoding Clerk who will communicate referrals to facilities and [...] refill at toes Labs: Recent Labs 09/15/18 034 NA 142 K 3.6 CL 113* CO2 20* BUN 18 CREATININE 0.74 GLUCOSE 135 CALCIUM 7.9* Recent Labs 09/15/18343 WBC 11.2* HGB 9.6* HCT 29.5* MCV 96.7* PLATELET 244 Recent Labs 09/15/18 034 PT 12.0 INR 1.0 Imagin09/12/18 CT of [...] % Laboratory: No results found for: PHART, ULU7ITE, PO2ART, ZHU9JZX, BEART Assessment: Called to set pt up [...] alert and oriented x4. Pt reports pain /. Pt denies any chest pain, shortness of [...] Urban PCP: LILLY Gaitan PCP phone #: [phone] Chief Complaint: Foot pain History of Present Illness: Jenae La is a 53 y.o woman with HTN, HLD, Type II DM, LORRI on CPAP,fibromyalgia with chronic opioid use, and GERD who was admitted to the Orthopedic Surgery Service as a transfer from [facility] for operative management of bilateral complex foot fractures s/p trauma (dropping firewood on her feet) on the evening of 09/11/18 causing bilateral immediate pain, swelling, andbruising making it difficult to ambulate and leading to falls c/b striking her head multiple times.It was with these symptoms that she presented to [facility] on 09/12/18. During her initial presentation in the [facility] ED, the patient reported instances of trembling and fecal incontinence. She was noted to be confused with lip and unilateral arm twitching. CT head was negative. CT C-spine was negative. CTchest demonstrated 6.8mm ground glass nodule in the RUL and b/l ground glass opacities. An LP was performed for suspicion of meningitis that was reportedly negative, CSF cultures were reportedly negative. At [facility], she was found to have post-concussive syndrome [...] hours of admission. She was admitted to [facility] from 09/12/18 - 09/14/18. Upon arrival at [facility] on 09/15/18,the patient noted moderate bilateral pain [...] Illicits: Denies Living Situation: Lives with in [place] Vitals: Last value Range last 24 hrs [...] lesions, no petechiae Laboratory: CBC: Recent Labs 09/15/18343 WBC 11.2* HGB 9.6* PLATELET 244 Chemistry: Recent Labs 09/15/18343 NA 142 K 3.6 CL 113* CO2 20* BUN 18 CREATININE 0.74 GLUCOSE 135 Recent Labs 09/15/18343 CALCIUM 7.9* LFT's: No results for input(s): BILITOT, BILIDIR, ALBUMIN, ALKPHOS, ALT, AST in the last 7068 hours. Coags: Recent Labs 09/15/18343 PT 12.0 INR 1.0 Cardiac enzymes: No results for input(s): TROPONINT, CK in the last 7068 hours. Endocrine: No results for input(s): TSH, CORTISOL in the last 7068 hours. Invalid input(s): [id number] Heme: No results for input(s): LDH, HAPTOGLOBIN, [...] Orthopedic Surgery Service as a transfer from [facility] for definitive operative management of bilateral complex [...] demonstrated seizure-like activity during her presentation at [facility], thus would recommend consulting Neurology to determine [...] Internal Medicine, PGY- 3 Medicine Consult Pager #[phone] Associated attestation - Chris Stahl DO - [...] female who presented as a transfer from [facility] for operative management of the complex foot fractures due to trauma on 09/11/2018. Her hospital course at [facility] was complicated by an ICU admission due to community-acquired pneumonia, as well as possible focal seizures and postconcussive syndrome. Here at [facility] patient has been clinically stable from pulmonary [...] Stahl, DO Internal Medicine 09/15/2018 3:25 PM * Noy [...] the orthopaedics service as a transfer from [facility] for operative management of bilateral complex [...] multiple times, leading her to present to [facility] on 09/12/2018 for evaluation. Initial work-up at [facility] revealed sepsis secondary to suspected community- acquired pneumonia, mild acute exacerbation of COPD, a closed head injury with postconcussive syndrome, multiple bilateral foot fractures, and MANUEL, resulting in hospital admission. Upon presentation to the [facility] ED, her and cristian reported instances of [...] no active bleeding observed. General Surgery at [facility] evaluated the patient, and felt no further action was required besides outpatient follow up. Upon arrival to [facility], Mrs. La reports moderate pain in her [...] Situation: Lives with and multiple pets in [place], [place]. Review of Systems: As per HPI, [...] direct admit to the Orthopaedics service from [facility] for definitive management of bilateral complex foot [...] AM EDTAssociated Order(s): EEG AWAKE, ASLEEP, DROWSY [facility] Department of Neurology Inpatient EEG Report Name of the Patient: Jenae La Date of : 1965 Date of Service: 09/17/2018 Referring physician: Dr. Abdirahman Enamorado BRIEF HISTORY: Jenae La is a 53 y.o. patient with episodes of tremors at home and witnessed facial and arm twitching at [facility] (witnessed by nursing). Also has hit head [...] PRN Sanket Freeman MD 1 Cartridge at 04/26/19 0352 ??? polyethylene glycol (MIRALAX) packet 17 [...] tablet 1,000 mg 1,000 mg Oral Q8H [facility] Sanket Freeman MD 1,000 mg at 09/17/18 0525 ??? ipratropium-albuterol (DUONEB) 0.5 mg-3 mg(2.5 mg base)/3 mL nebulizer solution 3 mL 3 mL Nebulization Q4H PRN Sanket Freeman MD ??? simvastatin (ZOCOR) tablet 20 mg 20 mg Oral QPM Sanket Freeman MD 20 mg at 09/16/18 165 ??? glucose (GLUTOSE) 40% oral gel 15-30 [...] channel digitized electroencephalogram was performed in the [facility] Clinical Neurophysiology Laboratory. The 10/20 international system of electrode placement was used and bipolar and referential electrode montages were recorded. In addition to EEG the patient was monitored for EKGand lateral/vertical eye movements. Video was recorded during the session. The duration of the recording was 30 minutes. SLAG DUMPER'S REPORT: Performed by: RR/GERHADR Patient was not sleep deprived. Sleep was [...] Angel MD Clinical Neurophysiology Fellow Personal Pager #[phone] Epilepsy Neurology #[phone] Neurology Attending I have personally reviewed the EEG, and I agree with the details as written. The above report was formulated in discussion with me at the time of EEG reading, and I agree with it as documented. Jose Singer MD Department [place] [address] Pager: [phone], #[phone] Email: [email or web address] documented in this encounter Miscellaneous Notes * Consult Note - Dimitrios Valle RN - 09/20/2018 11:55 AM EDT TOBACCO DEPENDENCE TREATMENT NOTE DATE: 09/20/2018 NAME: Jneae La : 1965 S: I don't need [...] quit. She is not interested in receiving [facility] Tobacco Cessation packet. A: Pt refused consult. P: Encouraged patient to reach out to PCP for nicotine inhaler prescription. Dimitrios Valle, MSN, RN-, [facility] Tobacco Commodities Clerk [facility] Pager #[phone] * Plan of Care - Stacey Duenas [...] Outcome: Ongoing (Interventions Implemented as Appropriate) 09/18/18 182 Skin Integrity Impairment, Risk/Actual Skin Integrity Impairment, Risk/Actual: Related Risk Factors surgery/procedure;edema;immobility Signs and Symptoms (Skin Integrity Impairment) edema Goal: Skin Integrity/Wound Healing Patient will demonstrate the desired outcomes by discharge/transition of care. Outcome: Ongoing (Interventions Implemented as Appropriate) 09/18/181820 Skin Integrity Impairment, Risk/Actual (Adult) Skin Integrity/Wound [...] [X] Yes * Care Management - Dimitrios Moser, RN - 09/17/2018 12:31 PM EDT Chart reviewed and met with pt and . Pt looks askew in bed with madi SCHULZ's elevated on pillows. I offered to reposition her and she said she was actually comfortable and waiting to get on the bedpan again. Pr worked with MARIE Aguilar and [facility] OT this am and did well with her transfers on and off the drop arm commode and W/C with elevating legs using a slide board. Pt also needs a ramp builtto get her up the two steps into her house and her is going to build it this weekend. Pt requests [facility] for her DME. I have spoken with Tahlia from the [place] office and she states shecannot get this DME on a Thu afternoon for Sat am but can do this for a Mon d/c. Pt states there jessy branch in [facility] that she has used in the past. Pt requests a referral to [facility] for an RN for skilled assessments, PT, OT, and steve for TOBACCO SWEEPER. Pt requests Ofelia Barger if possible. I [...] NO xxx Lauren Perales, PT, DPT Pager: [phone] Inpatient Physical Therapy 2017 PT Evaluation Code [...] (Group);Wheelchair Training/Management (Group) Bed Mobility Assessment/Treatment Scoot/Bridge Lynn (Bed Mobility) conditional independence Msgzuk-xv-Bfw Lynn (Bed Mobility) conditional independence Kbv-jz-Qfqrpu Lynn (Bed Mobility) conditional independence Safety Issues (Bed Mobility) decreased use of legs for bridging/pushing Impairments (Bed Mobility) pain;ROM (range of motion) decreased Comment (Bed Mobility) incr time/effort to/from EOB but no physical assistance, NWB maintained throughout, good SLR b/l LEs Transfer Assessment/Treatment Bed-Chair Lynn (Transfers) supervision required;conditional independence (initial supervision progressing to ind) Qdi-Rcdat-Tdh Assistive Device (Transfers) slide board Lynn (Toilet Transfers) supervision required;conditional independence Assistive Device [...] with assist, home with home health(PT) Pager: [phone] Ori Bates OT 09/17/2018 Occupational Therapy Rehabilitation [...] Problem S/P ORIF bilateral foot fractures, 09/16/18 ([place]) Hearing Precautions/Limitations WFL Precautions/Restrictions fall;weight bearing Precautions [...] pain;ROM (range of motion) decreased;strength decreased Scoot/Bridge Lynn (Bed Mobility) conditional independence Ldoivt-op-Gna Lynn (Bed Mobility) conditional independence Fwv-wi-Vnponp Lynn (Bed Mobility) conditional independence Comment (Bed Mobility) Pt performeed bed mobility w/ increased time and pain. Transfer Assessment/Treatment Lynn (Toilet Transfers) supervision required;conditional independence Impairments (Transfers) pain;ROM (range of motion) decreased;strength decreased Dvb-Khrpz-Rfb Assistive Device (Transfers) slide board Bed-Chair Lynn (Transfers) supervision required;contact guard assist Comment (Transfers) [...] Body Dressing Assessment/Training Assistive Devices (LB Dressing) salon receptionist Position (LB Dressing) sitting Lynn Level (LB Dressing) conditional independence Impairments (LB Dressing) pain;ROM (range of motion) decreased;strength decreased Comment (LB Dressing) Pt donned pants independently, w/ slight increase in time. Toileting Assessment/Training Position (Toileting) sitting Lynn Level (Toileting) conditional independence Impairments (Toileting) ROM [...] a transfer to the orthopedic service from [facility] for bilateral complex foot fractures. Per discussion with the consulting provider, patient was initially admitted to [facility] for bilateral foot fractures. This was in the setting of multiple falls in the previous days leading up to her admission. She was also noted to strike her head multiple times during these falls. 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 Discussion with Jenae and her significant other about her initial presentation makes us less concerned for seizure activity. However, it is hard to say what the nurses at [facility] actually saw but they describe twitching of [...] - PGY-3 General Neurology Consults Team Pager #[phone] 09/16/18 Associated attestation - German Gu III, [...] as documented. German Gu III, MD Pager: [phone] 7:42 AM 09/17/2018 * Op Note - Aparna Reed MD - 09/16/2018 2:02 PM EDT [facility] [place] Patient Name: Jenae La : [id number] MR#: [id number] Case Date: 09/16/2018 Surgeon: Surgeon(s) and Role: [...] 2nd metatarsal fracture, left 3rd metatarsal fracture, uubc1zw metatarsal fracture, left cuboid fracture. Procedure(s) (LRB): [...] the second tarsometatarsal joint. We used a hokef-vk-yxcxt clamp to reduce it, and then fixed [...] the articular surface. We then used a [place] to bring the impacted articular surface down [...] Reed MD - 09/16/2018 1:54 PM EDT [facility] Operative Note- Left foot This patient underwent bilateral procedures. This operative note is for the left foot. Patient Name: Jenae La : [id number] MR#: [id number] Case Date: 09/16/2018 Surgeon: Surgeon(s) and Role: [...] 2nd metatarsal fracture, left 3rd metatarsal fracture, gljr0rr metatarsal fracture, left cuboid fracture. ?? Procedure(s) [...] at [facility] and transferred to [facility] for further care. We discussed the risks [...] third metatarsal fracture was exposed using a [place]. A uczgh-uf-lpgdw clamp was used to control the distal [...] toe extensors. Fracture was exposed using a [place]. A topsx-mk-vlouj clamp was used to control the distal [...] Implant Name Type Inv. Item Serial No. Contracting Specialist Lot No. LRB No. Used Action PIN,KWIRE,TROC 1 ED,NS,[id number] ([id number]) (AutoReq) - [id number] IMPLANTS PIN,KWIRE,TROC 1 ED,NS,[id number] ([id number]) (AutoReq) [facility] Right 1 Implanted and Explanted SCREW,CRTX,STAP,T8,2.4X16MM ([id number]) - [id number] IMPLANTS SCREW,CRTX,STAP,T8,2.4X16MM ([id number]) [facility] Right 1 Implanted SCREW,CRTX,STAP,T8,2.4X26MM ([id number]) - [id number] IMPLANTS SCREW,CRTX,STAP,T8,2.4X26MM ([id number]) [facility] Right 1 Implanted SCREW,CRTX,STAP,T8,2.4X22MM ([id number]) - [id number] IMPLANTS SCREW,CRTX,STAP,T8,2.4X22MM ([id number]) [facility] Right 1 Implanted SCREW,SLFTP,LCK,STAR,2.4X12MM ([id number]) - [id number] IMPLANTS SCREW,SLFTP,LCK,STAR,2.4X12MM ([id number]) [facility] Right 1 Implanted SCREW,LCK,STAP,STAR,2.4X6MM ([id number]) - [id number] IMPLANTS SCREW,LCK,STAP,STAR,2.4X6MM ([id number]) [facility] Right 1 Implanted SCREW,LCK,STAP,STAR,2.4X18MM ([id number]) - [id number] IMPLANTS SCREW,LCK,STAP,STAR,2.4X18MM (0292384)[facility] Right 1 Implanted SCREW,CRTX,STAP,STRDRV,2X9MM ([id number]) - [id number] IMPLANTS SCREW,CRTX,STAP,STRDRV,2X9MM (5369445)[facility] Right 1 Implanted SCREW,CRTX,STAP,STAR,2X24MM ([id number]) - [id number] IMPLANTS SCREW,CRTX,STAP,STAR,2X24MM ([id number]) [facility] Right 1 Wasted SCREW,CRTX,STAP,STAR,2X28MM ([id number]) - [id number] IMPLANTS SCREW,CRTX,STAP,STAR,2X28MM (5680770) [facility] Right 1 Implanted SCREW,CRTX,STAP,STAR,2X18MM (6063713) - [id number] IMPLANTS SCREW,CRTX,STAP,STAR,2X18MM (9943542) [facility] Right 1 Implanted SCREW,LCK,STAP,STAR,2X14MM (5951156) - [id number] IMPLANTS SCREW,LCK,STAP,STAR,2X14MM (8787032) [facility] Right 1 Implanted SCREW,LCK,STAP,STAR,2X18MM (7321300) - [id number] IMPLANTS SCREW,LCK,STAP,STAR,2X18MM ([id number]) [facility] Right 1 Implanted PLATE,LCP,7H,2.0X52MM ([id number]) - [id number] IMPLANTS PLATE,LCP,7H,2.0X52MM (5072811) [facility] Right 1 Implanted PLATE,CNDYLR,LCP,7H,2.4MM (5487868) (AutoReq) - [id number] IMPLANTS PLATE,CNDYLR,LCP,7H,2.4MM (5687044) (AutoReq) [facility] Right 1 Implanted BONE,CRUSHED,CANCELLOUS,10CC ([id number]) (AutoReq) - [id number] IMPLANTS BONE,CRUSHED,CANCELLOUS,10CC(4996447) (AutoReq) [facility] [id number] Right 1 Implanted PIN,KWIRE,TROC 1ED,NS,8C135XB ([id number]) - [id number] IMPLANTS PIN,KWIRE,TROC 1ED,NS,4X121XE ([id number]) [facility] Right 2 Implanted and Explanted PIN,KWIRE,PLAIN,2,0.030Z6YZ,NS (5621366) - [id number] IMPLANTS PIN,KWIRE,PLAIN,2,0.282T0HG,NS (8133251) [employer] [facility] [place] Left 3 Implanted PLATE,LCP,CNDYLR,7H-SHFT,2MM (4443080) - [id number] IMPLANTS PLATE,LCP,CNDYLR,7H-SHFT,2MM (9067499)[facility] Left 1 Implanted SCREW,LCK,STAP,STAR,2X12MM (2576513) - [id number] IMPLANTS SCREW,LCK,STAP,STAR,2X12MM ([id number]) [facility] Left 1 Implanted SCREW,LCK,STAP,STAR,2X10MM ([id number]) - [id number] IMPLANTS SCREW,LCK,STAP,STAR,2X10MM ([id number]) [facility] Left 1 Implanted SCREW,CRTX,STAP,STAR,2X12MM ([id number]) - [id number] IMPLANTS SCREW,CRTX,STAP,STAR,2X12MM ([id number]) [facility] Left 1 Implanted SCREW,CRTX,STAP,STAR,2X14MM (2502570) - [id number] IMPLANTS SCREW,CRTX,STAP,STAR,2X14MM ([id number]) [facility] Left 1 Implanted SCREW,CRTX,STAP,STAR,2X14MM ([id number]) - [id number] IMPLANTS SCREW,CRTX,STAP,STAR,2X14MM ([id number]) [facility] Right 1 Implanted SCREW,VA,LCK,SLFTP,T6,2X22MM (6756438) - [id number] IMPLANTS SCREW,VA,LCK,SLFTP,T6,2X22MM ([id number])[employer] Right 1 Implanted SCREW,VA,LCK,SLFTP,T6,2X18MM (9361431) - [id number] IMPLANTS SCREW,VA,LCK,SLFTP,T6,2X18MM ([id number])[employer] Right 1 Implanted SCREW,VA,LCK,SLFTP,T6,2X16MM ([id number]) - [id number] IMPLANTS SCREW,VA,LCK,SLFTP,T6,2X16MM (9288881)[facility] Right 1 Implanted SCREW,CRTX,STAP,STAR,2X16MM (3344511) - [id number] IMPLANTS SCREW,CRTX,STAP,STAR,2X16MM (7323665) [facility] Right 1 Implanted SCREW,CRTX,STAP,STAR,2X12MM ([id number]) - [id number] IMPLANTS SCREW,CRTX,STAP,STAR,2X12MM ([id number]) [facility] Right 1 Implanted SCREW,CRTX,STAP,STRDRV,2X10MM ([id number]) - [id number] IMPLANTS SCREW,CRTX,STAP,STRDRV,2X10MM ([id number]) [facility] Left 1 Implanted GUIDEW,THRD,1.1C904NF (0600994) - [id number] IMPLANTS GUIDEW,THRD,1.1H604WJ (4326891) [facility]; [facility] Right 3 Implanted Number of fracture [...] or concerns. Lauren Perales PT, DPT Pager: [phone] 09/16/18 Inpatient Rehabilitation Department * Plan of [...] monitoring]: Kp NKE at bedside, purposeful rounding, patientinstructed to ring for nurse assist via call valderrama Patient-specific fall prevention interventions for sensory deficits provided, if applicable: [X] Yes CPG GOAL OUTCOME EVALUATION: Goal: Fall Prevention-Safe Patient Handling Outcome: Ongoing (Interventions Implemented as Appropriate) 09/14/[id number]/15/1882909/15/18 1403 [place]ks Fall Risk History of Falling [...] up as able/appropriate. Ori Valencia OT Pager: [phone] * Initial Assessments - Kathrin Madsen RN [...] MEDICAID [place] Prescription Coverage: [facility] Other: Primary Care Provider: LILLY Gaitan [phone] Patient/Caregiver Goals of Treatment: agreed to go [...] #1 [facility], [facility]. Referral submitted. Plan: snf vs swing vs acute. A member of the Care Management team will continue to monitor progress, follow for continuity of care and assist with transition of care planning. Kathrin Madsen RN Pager: [phone] * Plan of Care - Horace Beckman [...] 3:44 AM EDT DIFFERENTIAL, AUTOMATED Routine 09/16/19 19 3:44 AM EDT ABO/RH TYPING Routine 09/15/2018 [...] Glucose, POC 139 65 - 199 mg/dL [facility] Comment: Supplemental ranges: <140 mg/dL before meals <180 mg/dL all other times of the day Blood specimen (specimen) 09/20/2018 11:29 AM EDT 09/20/2018 11:29 AM EDT Javad Urban MD POINT OF CARE TEST O RDERABLES [facility] [place] [address] * POCT Glucose (09/20/2018 8:02 AM EDT) Glucose, POC 167 65 - 199 mg/dL [facility] Comment: Supplemental ranges: <140 mg/dL before meals <180 mg/dL all other times of the day Blood specimen (specimen) 09/20/2018 8:02 AM EDT 09/20/2018 8:02 AM EDT Javad Urban MD POINT OF CARE TEST O RDERALISSETT Performing Organization Address [facility] Co de Phone Number [facility] [place] [address] * POCT Glucose (09/20/2018 4:03 AM EDT) Glucose, POC 127 65 - 199 mg/dL [facility] Comment: Supplemental ranges: <140 mg/dL before meals <180 mg/dL all other times of the day Blood specimen (specimen) 09/20/2018 4:03 AM EDT 09/20/2018 4:03 AM EDT Javad Urban MD POINT OF CARE TEST O JONY Performing Organization Address [facility] Co de Phone Number [facility] [place] [address] * POCT Glucose (09/19/2018 11:45 PM EDT) Glucose, POC 146 65 - 199 mg/dL [facility] Comment: Supplemental ranges: <140 mg/dL before meals <180 mg/dL all other times of the day Blood specimen (specimen) 09/19/2018 11:45 PM EDT 09/19/2018 11:45 PM EDT Javad Urban MD POINT OF CARE TEST O RDERALISSETT Performing Organization Address [facility] Co de Phone Number [facility] [place] [address] * POCT Glucose (09/19/2018 7:26 PM EDT) Glucose, POC 149 65 - 199 mg/dL [facility] Comment: Supplemental ranges: <140 mg/dL before meals <180 mg/dL all other times of the day Blood specimen (specimen) 09/19/2018 7:26 PM EDT 09/19/2018 7:26 PM EDT Javad Urban MD POINT OF CARE TEST O RDSILVIO Performing Organization Address City/[facility]/ZIP Co de Phone Number [facility] [place] [address] * POCT Glucose (09/19/2018 4:14 PM EDT) Glucose, POC 144 65 - 199 mg/dL [facility] Comment: Supplemental ranges: <140 mg/dL before meals <180 mg/dL all other times of the day Blood specimen (specimen) 09/19/2018 4:14 PM EDT 09/19/2018 4:14 PM EDT Javad Urban MD POINT OF CARE TEST O JONY Performing Organization Address [facility]/ZIP Co de Phone Number [facility] [place] [address] * POCT Glucose (09/19/2018 11:28 AM EDT) Glucose, POC 170 65 - 199 mg/dL [facility] Comment: Supplemental ranges: <140 mg/dL before meals <180 mg/dL all other times of the day Blood specimen (specimen) 09/19/2018 11:28 AM EDT 09/19/2018 11:28 AM EDT Javad Urban MD POINT OF CARE TEST O JONY Performing Organization Address City/[facility]/ZIP Co de Phone Number [facility] [place] [address] * POCT Glucose (09/19/2018 7:54 AM EDT) Glucose, POC 120 65 - 199 mg/dL [facility] Comment: Supplemental ranges: <140 mg/dL before meals <180 mg/dL all other times of the day Blood specimen (specimen) 09/19/2018 7:54 AM EDT 09/19/2018 7:54 AM EDT Javad Urban MD POINT OF CARE TEST O RDERABLES Performing Organization Address [facility] Co de Phone Number [facility] [place] [address] * POCT Glucose (09/19/2018 3:42 AM EDT) Glucose, POC 105 65 - 199 mg/dL [facility] Comment: Supplemental ranges: <140 mg/dL before meals <180 mg/dL all other times of the day Blood specimen (specimen) 09/19/2018 3:42 AM EDT 09/19/2018 3:42 AM EDT Javad Urban MD POINT OF CARE TEST O RDERALISSETT Performing Organization Address [facility] Co de Phone Number [facility] [place] [address] * Magnesium (09/19/2018 3:40 AM EDT) [facility] Signature Magnesium 0.74 0.69 - 1.07 mmol/L [facility] Blood specimen (specimen) Venous Draw / Unknown 09/19/2018 3:40 AM EDT 09/19/2018 4:40 AM EDT Narrative Resulting Agency Comment Spec In Lab Buffy CARR CHEMISTRY ORDERAB LES Performing Organization Address [facility] Co de Phone Number [facility] [place] [address] * (ABNORMAL) Basic Metabolic Panel (non-fasting) (09/19/2018 3:40 AM EDT) Glucose 111 65 - 199 mg/dL [facility] Comment:Diabetes: >=200 mg/d L plus symptoms Blood Urea Nitrogen 11 8 - 18 mg/dL [facility] Creatinine 0.64(L) 0.70 - 1.20 mg/dL [facility] Sodium 140 135 - 145 mmol/L [facility] Potassium 4.0 3.5 - 5.0 mmol/L [facility] Comment: Please note: ??Patients with WBC >100,000 may have falsely elevated Potassium levels. ??For accurate Potassium quantification in these patients send serum separator tube (gold top) for subsequent determinations. ??Contact the Clinical Chemistry Laboratory if there are any questions. Chloride 104 98 - 107 mmol/L [facility] Carbon Dioxide 27 22 - 31 mmol/L [facility] Anion Gap 9 5 - 15 mmol/L [facility] Calcium 8.9 8.5 - 10.5 mg/dL [facility] Est Glomerular Filtration Rate 103 >=60 mL/min/1. 73 m?? [facility] Comment: The eGFR was calculated using the CKD-EPI equation. As with all creatinine based estimates of kidney function, eGFR values calculated with the CKD-EPI equation are not accurate in patients with acute kidney failure, extremes of body mass or the acutely ill. [email or web address] eGFR 120 >=60 mL/min/1. 73 m?? [facility] Comment: The eGFR was calculated using the CKD-EPI equation. As with all creatinine based estimates of kidney function, eGFR values calculated with the CKD-EPI equation are not accurate in patients with acute kidney failure, extremes of body mass or the acutely ill. [email or web address] Blood specimen (specimen) 09/19/2018 3:40 AM EDT 09/19/2018 3:53 AM EDT Narrative Resulting Agency Comment Spec In Lab Trina Loo APRN CHEMISTRY ORDERABLE S [facility] [place] [address] * POCT Glucose (09/18/2018 11:20 PM EDT) Glucose, POC 150 65 - 199 mg/dL [facility] Comment: Supplemental ranges: <140 mg/dL before meals <180 mg/dL all other times of the day Blood specimen (specimen) 09/18/2018 11:20 PM EDT 09/18/2018 11:20 PM EDT Javad Urban MD POINT OF CARE TEST O JONY Performing Organization Address City/[facility]/ZIP Co de Phone Number [facility] [place] [address] * POCT Glucose (09/18/2018 7:57 PM EDT) Glucose, POC 103 65 - 199 mg/dL [facility] Comment: Supplemental ranges: <140 mg/dL before meals <180 mg/dL all other times of the day Blood specimen (specimen) 09/18/2018 7:57 PM EDT 09/18/2018 7:57 PM EDT Javad Urban MD POINT OF CARE TEST O JONY Performing Organization Address [facility] Co de Phone Number [facility] [place] [address] * POCT Glucose (09/18/2018 4:56 PM EDT) Glucose, POC 142 65 - 199 mg/dL [facility] Comment: Supplemental ranges: <140 mg/dL before meals <180 mg/dL all other times of the day Blood specimen (specimen) 09/18/2018 4:56 PM EDT 09/18/2018 4:56 PM EDT Javad Urban MD POINT OF CARE TEST O JONY Performing Organization Address City/[facility] Co de Phone Number [facility] [place] [address] * POCT Glucose (09/18/2018 11:59 AM EDT) Glucose, POC 160 65 - 199 mg/dL [facility] Comment: Supplemental ranges: <140 mg/dL before meals <180 mg/dL all other times of the day Blood specimen (specimen) 09/18/2018 11:59 AM EDT 09/18/2018 11:59 AM EDT Javad Urban MD POINT OF CARE TEST O JONY Performing Organization Address [facility] Co de Phone Number [facility] [place] [address] * POCT Glucose (09/18/2018 7:55 AM EDT) Glucose, POC 126 65 - 199 mg/dL [facility] Comment: Supplemental ranges: <140 mg/dL before meals <180 mg/dL all other times of the day Blood specimen (specimen) 09/18/2018 7:55 AM EDT 09/18/2018 7:55 AM EDT Javad Urban MD POINT OF CARE TEST O JONY Performing Organization Address [facility] de Phone Number [facility] [place] [address] * POCT Glucose (09/18/2018 3:58 AM EDT) Glucose, POC 125 65 - 199 mg/dL [facility] Comment: Supplemental ranges: <140 mg/dL before meals <180 mg/dL all other times of the day Blood specimen (specimen) 09/18/2018 3:58 AM EDT 09/18/2018 3:58 AM EDT Javad Urban MD POINT OF CARE TEST O RDERALISSETT Performing Organization Address [facility] de Phone Number [facility] [place] [address] * (ABNORMAL) Magnesium (09/18/2018 3:37 AM EDT) Magnesium 0.67(L) 0.69 - 1.07 mmol/L [facility] Blood specimen (specimen) Venous Draw / Unknown 09/18/2018 3:37 AM EDT 09/18/2018 4:55 AM EDT Narrative Resulting Agency Comment Spec In Lab Trina Mueller Eze CARLOS CHEMISTRY ORDERABLE S [facility] [place] [address] * (ABNORMAL) Basic Metabolic Panel (non-fasting) (09/18/2018 3:37 AM EDT) Glucose 106 65 - 199 mg/dL [facility] Comment:Diabetes: >=200 mg/d L plus symptoms Blood Urea Nitrogen 7(L) 8 - 18 mg/dL [facility] Creatinine 0.62(L) 0.70 - 1.20 mg/dL [facility] Sodium 143 135 - 145 mmol/L [facility] Potassium 3.1(L) 3.5 - 5.0 mmol/L [facility] Comment: Please note: ??Patients with WBC >100,000 may have falsely elevated Potassium levels. ??For accurate Potassium quantification in these patients send serum separator tube (gold top) for subsequent determinations. ??Contact the Clinical Chemistry Laboratory if there are any questions. Chloride 106 98 - 107 mmol/L [facility] Carbon Dioxide 26 22 - 31 mmol/L [facility] Anion Gap 11 5 - 15 mmol/L [facility] Calcium 8.5 8.5 - 10.5 mg/dL [facility] Est Glomerular Filtration Rate 104 >=60 mL/min/1. 73 m?? [facility] Comment: The eGFR was calculated using the CKD-EPI equation. As with all creatinine based estimates of kidney function, eGFR values calculated with the CKD-EPI equation are not accurate in patients with acute kidney failure, extremes of body mass or the acutely ill. [email or web address] eGFR 121 >=60 mL/min/1. 73 m?? [facility] Comment: The eGFR was calculated using the CKD-EPI equation. As with all creatinine based estimates of kidney function, eGFR values calculated with the CKD-EPI equation are not accurate in patients with acute kidney failure, extremes of body mass or the acutely ill. [email or web address] Blood specimen (specimen) 09/18/2018 3:37 AM EDT 09/18/2018 3:59 AM EDT Narrative Resulting Agency Comment Spec In Lab Trina Loo APRN CHEMISTRY ORDERABLE S Performing Organization Address [facility] Co de Phone Number [facility] [place] [address] * POCT Glucose (09/17/2018 11:33 PM EDT) Glucose, POC 145 65 - 199 mg/dL [facility] Comment: Supplemental ranges: <140 mg/dL before meals <180 mg/dL all other times of the day Blood specimen (specimen) 09/17/2018 11:33 PM EDT 09/17/2018 11:33 PM EDT Javad Urban MD POINT OF CARE TEST O RDERABLES Performing Organization Address [facility] Co de Phone Number [facility] [place] [address] * (ABNORMAL) POCT Glucose (09/17/2018 7:24 PM EDT) Glucose, POC 200(H) 65 - 199 mg/dL [facility] Comment: Supplemental ranges: <140 mg/dL before meals <180 mg/dL all other times of the day Blood specimen (specimen) 09/17/2018 7:24 PM EDT 09/17/2018 7:24 PM EDT Javad Urban MD POINT OF CARE TEST O RDERABLES Performing Organization Address [facility] Co de Phone Number [facility] [place] [address] * POCT Glucose (09/17/2018 3:16 PM EDT) Glucose, POC 180 65 - 199 mg/dL [facility] Comment: Supplemental ranges: <140 mg/dL before meals <180 mg/dL all other times of the day Blood specimen (specimen) 09/17/2018 3:16 PM EDT 09/17/2018 3:16 PM EDT Javad Urban MD POINT OF CARE TEST O RDSILVIO Performing Organization Address [facility] Co de Phone Number [facility] [place] [address] * POCT Glucose (09/17/2018 12:01 PM EDT) Glucose, POC 137 65 - 199 mg/dL [facility] Comment: Supplemental ranges: <140 mg/dL before meals <180 mg/dL all other times of the day Blood specimen (specimen) 09/17/2018 12:01 PM EDT 09/17/2018 12:01 PM EDT Javad Urban MD POINT OF CARE TEST O JONY Performing Organization Address [facility] Co de Phone Number [facility] [place] [address] * EEG awake, asleep, drowsy, routine (09/17/2018 9:30 AM EDT) Narrative Jose Singer MD - 09/17/2018 9:30 AM EDT Jose Singer MD ? 09/21/2018 10:14 AM [facility] Department of Neurology Inpatient EEG Report Name of the Patient: ??Jenae La Date of : ?1965 Date of Service: ?09/17/2018 Referring physician: ?Dr. Abdirahman Enamorado BRIEF HISTORY: Jenae La is a 53 y.o. patient with episodes of tremors at home and witnessed facial and arm twitching at [facility] (witnessed by nursing). Also has hit head [...] Buffy Russell PA ?? 950 mg at 09/17/18843 ? ? enoxaparin (LOVENOX) injection 40 mg ??40 mg Subcutaneous Nightly Sanket Freeman MD ?? 40 mg at 09/16/182010 ? ? Nicotine inhalation system (Nicotrol Inhaler) 1 cartridge ??1-4 Cartridge Inhalation Q4H PRN Sanket Freeman MD ?? 1 Cartridge at 09/17/18351 ? ? polyethylene glycol (MIRALAX) packet 17 g ??17 g Oral BID Sanket Freeamn MD ?? 17 g at 09/15/18818 ? ? senna-docusate (PERICOLACE) 8.6-50 mg per tablet 2 tablet ??2 tablet Oral BID Sanket Freeman MD ?? 2 tablet at 09/17/18843 ? ? sodium chloride 0.9% infusion ??1,000 mL Intravenous Continuous Sanket Freeman MD 100 mL/hr at 09/16/181999 1,000 mL at 09/16/181999 ? ? acetaminophen (TYLENOL) tablet 1,000 mg ??1,000 mg Oral Q8H [facility] Sanket Freeman MD ?? 1,000 mg at 09/17/18 0525 [...] injection 1-4 Units ??1-4 Units Subcutaneous Q4H [facility] Sanket Freeman MD ?? 1 Units at 09/15/18 2305 ? ? ondansetron (ZOFRAN) injection 4 mg ??4 mg Intravenous Q8H PRSanket Friedman MD ?? 4 mg at 09/16/18 0721 ? ? prochlorperazine (COMPAZINE) injection 10 mg ??10 mg Intravenous Q6H PRSanket Friedman MD ?? 10 mg at 09/15/18 2051 METHODS: A 21 channel digitized electroencephalogram was performed in the [facility] Clinical Neurophysiology Laboratory. The 10/20 international system of electrode placement was used and bipolar and referential electrode montages were recorded. ??In addition to EEG the patient was monitored for EKG and lateral/vertical eye movements. Video was recorded during the session. The duration of the recording was 30 minutes. SLAG DUMPER'S REPORT:Performed by: RR/CM Patient was not sleep [...] Angel MD Clinical Neurophysiology Fellow Personal Pager #[phone] Epilepsy Neurology #[phone] Neurology Attending I have personally reviewed the EEG, and I agree with the details as written. ?? The above report was formulated in discussion with me at the time of EEG reading, and I agree with it as documented. Jose Singer MD Department [place] [address] Pager: [phone], #[phone] Email: [email or web address] Javad Urban MD NEUROLOGY ORDERABLES * (ABNORMAL) Basic Metabolic Panel (non-fasting) (09/17/2018 9:02 AM EDT) Glucose 121 65 - 199 mg/dL [facility] Comment:Diabetes: >=200 mg/d L plus symptoms Blood Urea Nitrogen 9 8 - 18 mg/dL [facility] Creatinine 0.59(L) 0.70 - 1.20 mg/dL [facility] Sodium 144 135 - 145 mmol/L [facility] Potassium 2.9(Criti toy) 3.5 - 5.0 mmol/L [facility] Comment: Called by: [email or web address], Read back by: Aruna Calvo, Date/Time:09/17/18 10:19. Please note: ??Patients with WBC >100,000 may have falsely elevated Potassium levels. ??For accurate Potassium quantification in these patients send serum separator tube (gold top) for subsequent determinations. ??Contact the Clinical Chemistry Laboratory if there are any questions. Chloride 108(H) 98 - 107 mmol/L [facility] Carbon Dioxide 25 22 - 31 mmol/L [facility] Anion Gap 11 5 - 15 mmol/L [facility] Calcium 8.0(L) 8.5 - 10.5 mg/dL [facility] Est Glomerular Filtration Rate 106 >=60 mL/min/1. 73 m?? [facility] Comment: The eGFR was calculated using the CKD-EPI equation. As with all creatinine based estimates of kidney function, eGFR values calculated with the CKD-EPI equation are not accurate in patients with acute kidney failure, extremes of body mass or the acutely ill. http://[email or web address] eGFR 123 >=60 mL/min/1. 73 m?? [facility] Comment: The eGFR was calculated using the CKD-EPI equation. As with all creatinine based estimates of kidney function, eGFR values calculated with the CKD-EPI equation are not accurate in patients with acute kidney failure, extremes of body mass or the acutely ill. [email or web address] Blood specimen (specimen) 09/17/2018 9:02 AM EDT 09/17/2018 9:17 AM EDT Narrative Resulting Agency Comment Spec In Lab Javad Urban MD CHEMISTRY ORDERABLES Performing Organization Address [facility] Co de Phone Number [facility] [place] [address] * POCT Glucose (09/17/2018 7:33 AM EDT) Glucose, POC 136 65 - 199 mg/dL [facility] Comment: Supplemental ranges: <140 mg/dL before meals <180 mg/dL all other times of the day Blood specimen (specimen) 09/17/2018 7:33 AM EDT 09/17/2018 7:33 AM EDT Javad Urban MD POINT OF CARE TEST O RDERABLES Performing Organization Address [facility] Co de Phone Number [facility] [place] [address] * POCT Glucose (09/17/2018 3:29 AM EDT) Glucose, POC 126 65 - 199 mg/dL [facility] Comment: Supplemental ranges: <140 mg/dL before meals <180 mg/dL all other times of the day Blood specimen (specimen) 09/17/2018 3:29 AM EDT 09/17/2018 3:29 AM EDT Javad Urban MD POINT OF CARE TEST O RDERABLES Performing Organization Address [facility] Co de Phone Number [facility] [place] [address] * POCT Glucose (09/16/2018 11:25 PM EDT) Glucose, POC 123 65 - 199 mg/dL [facility] Comment: Supplemental ranges: <140 mg/dL before meals <180 mg/dL all other times of the day Blood specimen (specimen) 09/16/2018 11:25 PM EDT 09/16/2018 11:25 PM EDT Javad Urban MD POINT OF CARE TEST O JONY Performing Organization Address [facility]/ZIP Co de Phone Number [facility] [place] [address] * POCT Glucose (09/16/2018 8:29 PM EDT) Glucose, POC 114 65 - 199 mg/dL [facility] Comment: Supplemental ranges: <140 mg/dL before meals <180 mg/dL all other times of the day Blood specimen (specimen) 09/16/2018 8:29 PM EDT 09/16/2018 8:29 PM EDT Javad Urban MD POINT OF CARE TEST O JONY Performing Organization Address [facility]/ZIP Co de Phone Number [facility] [place] [address] * POCT Glucose (09/16/2018 3:35 PM EDT) Glucose, POC 106 65 - 199 mg/dL [facility] Comment: Supplemental ranges: <140 mg/dL before meals <180 mg/dL all other times of the day Blood specimen (specimen) 09/16/2018 3:35 PM EDT 09/16/2018 3:35 PM EDT Javad Urban MD POINT OF CARE TEST O JONY Performing Organization Address [facility]/ZIP Co de Phone Number [facility] [place] [address] * (ABNORMAL) Basic Metabolic Panel (non-fasting) (09/16/2018 3:33 PM EDT) Glucose 106 65 - 199 mg/dL [facility] Comment:Diabetes: >=200 mg/d L plus symptoms Blood Urea Nitrogen 13 8 - 18 mg/dL [facility] Creatinine 0.62(L) 0.70 - 1.20 mg/dL [facility] Sodium 147(H) 135 - 145 mmol/L [facility] Potassium 3.2(L) 3.5 - 5.0 mmol/L [facility] Comment: Please note: ??Patients with WBC >100,000 may have falsely elevated Potassium levels. ??For accurate Potassium quantification in these patients send serum separator tube (gold top) for subsequent determinations. ??Contact the Clinical Chemistry Laboratory if there are any questions. Chloride 112(H) 98 - 107 mmol/L [facility] Carbon Dioxide 22 22 - 31 mmol/L [facility] Anion Gap 13 5 - 15 mmol/L [facility] Calcium 8.1(L) 8.5 - 10.5 mg/dL [facility] Est Glomerular Filtration Rate 104 >=60 mL/min/1. 73 m?? [facility] Comment: The eGFR was calculated using the CKD-EPI equation. As with all creatinine based estimates of kidney function, eGFR values calculated with the CKD-EPI equation are not accurate in patients with acute kidney failure, extremes of body mass or the acutely ill. http://[email or web address] eGFR 121 >=60 mL/min/1. 73 m?? [facility] Comment: The eGFR was calculated using the CKD-EPI equation. As with all creatinine based estimates of kidney function, eGFR values calculated with the CKD-EPI equation are not accurate in patients with acute kidney failure, extremes of body mass or the acutely ill. [email or web address] Blood specimen (specimen) 09/16/2018 3:33 PM EDT 09/16/2018 3:49 PM EDT Narrative Resulting Agency Comment Spec In Lab Javad Urban MD CHEMISTRY ORDERABLES [facility] [place] [address] * Hemoglobin A1c (09/16/2018 3:33 PM EDT) Hemoglobin A1c 5.5 4.3 - 5.6 % [facility] Comment: Reference Range: 4.3 - 5.6% [...] Mellitus, Diabetes Care 2013; 36: Suppl. 1, S67-74 Estimated Average Glucose 111 mg/dL [facility] Comment: eAG equivalents [...] into estimated average glucose values. ??Diabetes Care 2008:31(8):6465-2620. Blood specimen (specimen) 09/16/2018 3:33 PM EDT 09/16/2018 3:49 PM EDT Narrative Resulting Agency Comment Spec In Lab Javad Urban MD CHEMISTRY ORDERABLES [facility] [place] [address] * XR Foot Min 3 views Bilat [...] report, please contact the number below. Javad Ubran MD IMG DX ORDERABLES * POCT Glucose (09/16/2018 1:56 PM EDT) Glucose, POC 126 65 - 199 mg/dL [facility] Comment: Supplemental ranges: <140 mg/dL before meals <180 mg/dL all other times of the day Blood specimen (specimen) 09/16/2018 1:56 PM EDT 09/16/2018 1:56 PM EDT Javad Urban MD POINT OF CARE TEST O RDERABLES [facility] [place] [address] * XR Fluoro No Rad <1Hr - OR Use (09/16/2018 1:10 PM EDT) Narrative RAD - 09/16/2018 1:11 PM EDT This order does not need a radiologist interpretation. ?? Javad Urban MD IMG FLUORO ORDERABLE S Performing Organization Address [facility] Co de Phone Number [place], [place] * POCT Glucose (09/16/2018 7:46 AM EDT) Glucose, POC 131 65 - 199 mg/dL [facility] Comment: Supplemental ranges: <140 mg/dL before meals <180 mg/dL all other times of the day Blood specimen (specimen) 09/16/2018 7:46 AM EDT 09/16/2018 7:46 AM EDT Javad Urban MD POINT OF CARE TEST O RDERABLES Performing Organization Address [facility] Co de Phone Number [facility] [place] [address] * Urine Hold (09/16/2018 6:07 AM EDT) Hold, Urine Sample in lab. [facility] Urine specimen (specimen) Urine / Unknown 09/16/2018 6:07 AM EDT 09/16/2018 6:54 AM EDT Sanket Freeman MD URINE ORDERABLES Performing Organization Address [facility] Co de Phone Number [facility] [place] [address] * (ABNORMAL) Urinalysis with reflex Culture (09/16/2018 6:07 AM EDT) Glucose, Urine Dipstick Negative Negative mg/dL [facility] Protein, Urine Dipstick Negative Negative mg/dL [facility] Bilirubin, Urine Dipstick Negative Negative mg/dL [facility] Comment: Clinical correlation required for positive Urine Bilirubin results as false positive may occur with some drugs and drug related products. If a false positive is suspected a serum total bilirubin should be considered if clinically indicated. Urobilinogen, Urine Dipstick Normal Normal mg/dL [facility] pH, Urn (dipstick) 6.0 5.0 - 8.0 [facility] Blood, Urine Dipstick Negative Negative mg/dL [facility] Ketone, Urine Dipstick 5(A) Negative mg/dL [facility] Nitrite, Urine Dipstick Negative Negative [facility] Leukocytes, Urine Dipstick Negative Negative [facility] Appearance, Urine Dipstick Clear Clear [facility] Specific [place] Urine Automated 1.012 1.002 - 1.030 [facility] Color, Urine Dipstick Straw Yellow [facility] Reflex to Culture No [facility] Urine specimen (specimen) 09/16/2018 6:07 AM EDT 09/16/2018 6:52 AM EDT Narrative Resulting Agency Comment Spec In Lab Javad Urban MD URINE ORDERABLES Performing Organization Address City/[facility]/ZIP Co de Phone Number [facility] [place] [address] * POCT Glucose (09/16/2018 3:30 AM EDT) Glucose, POC 126 65 - 199 mg/dL [facility] Comment: Supplemental ranges: <140 mg/dL before meals <180 mg/dL all other times of the day Blood specimen (specimen) 09/16/2018 3:30 AM EDT 09/16/2018 3:30 AM EDT Javad Urban MD POINT OF CARE TEST O RDERABLES Performing Organization Address City/[facility]/ZIP Co de Phone Number [facility] [place] [address] * POCT Glucose (09/15/2018 10:59 PM EDT) Glucose, POC 143 65 - 199 mg/dL [facility] Comment: Supplemental ranges: <140 mg/dL before meals <180 mg/dL all other times of the day Blood specimen (specimen) 09/15/2018 10:59 PM EDT 09/15/2018 10:59 PM EDT Javad Urban MD POINT OF CARE TEST O JONY Performing Organization Address [facility]/[place] Co de Phone Number [facility] [place] [address] * POCT Glucose (09/15/2018 8:10 PM EDT) Glucose, POC 100 65 - 199 mg/dL [facility] Comment: Supplemental ranges: <140 mg/dL before meals <180 mg/dL all other times of the day Blood specimen (specimen) 09/15/2018 8:10 PM EDT 09/15/2018 8:10 PM EDT Javad Urban MD POINT OF CARE TEST Rosie BORGES Performing Organization Address [facility]/[place] Co de Phone Number [facility] [place] [address] * POCT Glucose (09/15/2018 3:43 PM EDT) Glucose, POC 173 65 - 199 mg/dL [facility] Comment: Supplemental ranges: <140 mg/dL before meals <180 mg/dL all other times of the day Blood specimen (specimen) 09/15/2018 3:43 PM EDT 09/15/2018 3:43 PM EDT Javad Urban MD POINT OF CARE TEST O JONY Performing Organization Address City/[facility]/[place] Co de Phone Number [facility] [place] [address] * POCT Glucose (09/15/2018 12:05 PM EDT) Glucose, POC 177 65 - 199 mg/dL [facility] Comment: Supplemental ranges: <140 mg/dL before meals <180 mg/dL all other times of the day Blood specimen (specimen) 09/15/2018 12:05 PM EDT 09/15/2018 12:05 PM EDT Javad Urban MD POINT OF CARE TEST O JONY Performing Organization Address [facility] de Phone Number [facility] [place] [address] * (ABNORMAL) POCT Glucose (09/15/2018 7:39 AM EDT) Glucose, POC 206(H) 65 - 199 mg/dL [facility] Comment: Supplemental ranges: <140 mg/dL before meals <180 mg/dL all other times of the day Blood specimen (specimen) 09/15/2018 7:39 AM EDT 09/15/2018 7:39 AM EDT Javad Urban MD POINT OF CARE TEST O JONY Performing Organization Address [facility] de Phone Number [facility] [place] [address] * POCT Glucose (09/15/2018 4:12 AM EDT) Glucose, POC 141 65 - 199 mg/dL [facility] Comment: Supplemental ranges: <140 mg/dL before meals <180 mg/dL all other times of the day Blood specimen (specimen) 09/15/2018 4:12 AM EDT 09/15/2018 4:12 AM EDT Javad Urban MD POINT OF CARE TEST O JONY Performing Organization Address [facility]/[place] Co de Phone Number [facility] [place] [address] * ABORH Recheck Status (09/15/2018 3:44 AM EDT) ABORH Recheck Order Order Placed [facility] ABORH Type Recheck Complete [facility] Blood specimen (specimen) 09/15/2018 3:44 AM EDT 09/15/2018 3:59 AM EDT Narrative Resulting Agency Comment Spec In Lab Ori Santos MD BLOOD BANK LAB ORDER MADHAVI Performing Organization Address City/[facility]/ZIP Co de Phone Number [facility] [place] [address] * Antibody screen (09/15/2018 3:44 AM EDT) Ab Screen Interp Negative [facility] Expires at [id number] on: 09/18/2018 [facility] Blood specimen (specimen) 09/15/2018 3:44 AM EDT 09/15/2018 3:59 AM EDT Narrative Resulting Agency Comment Spec In Lab Ori Santos MD BLOOD BANK LAB ORDER MADHAVI Performing Organization Address City/[facility]/[place] Co de Phone Number [facility] [place] [address] * ABO/Rh Typing (09/15/2018 3:44 AM EDT) ABORH Type A Pos [facility] Blood specimen (specimen) 09/15/2018 3:44 AM EDT 09/15/2018 3:59 AM EDT Narrative Resulting Agency Comment Spec In Lab Ori Santos MD BLOOD BANK LAB ORDER MADHAVI Performing Organization Address City/[facility]/ZIP Co de Phone Number [facility] [place] [address] * (ABNORMAL) Differential, Automated (09/15/2018 3:44 AM EDT) Neutrophil % 64.7 % [facility] Neutrophil Absolute 7.24(H) 1.70 - 6.10 x10(3)/mc L [facility] Lymph % 21.6 % [facility] Lymphocytes Abs 2.4 0.9 - 3.2 x10(3)/mc L [facility] Monocyte % 10.8 % [facility] Monocyte Abs 1.2(H) 0.3 - 0.9 x10(3)/[facility] Eos % 0.2 % [facility] Eosinophils Abs 0.0 0.0 - 0.4 x10(3)/[facility] Basophil % 0.4 % [facility] Baso Absolute 0.0 0.0 - 0.1 x10(3)/[facility] Immature Gran % 2.30 % [facility] Comment: Immature granulocytes(IG's)percentage and absolute count will include metamyelocytes, myelocytes, and promyelocytes. Blood smears from CBCs yielding IG's will be scanned manually for concordance. If this scan disagrees with the automated IG or if promyelocytes are noted, a manual differential will be performed. Immature Gran Absolute 0.26(H) 0.00 - 0.04 x10(3)/[facility] Blood specimen (specimen) 09/15/2018 3:44 AM EDT 09/15/2018 4:18 AM EDT Narrative Resulting Agency Comment Spec In Lab Ori Santos MD HEMATOLOGY ORDERABLE S [facility] [place] [address] * (ABNORMAL) Hemogram (09/15/2018 3:44 AM EDT) White Blood Cell 11.2(H) 4.0 - 9.5 x10(3)/[facility] Red Blood Cell 3.05(L) 4.00 - 5.21 x10(6)/[facility] Hemoglobin 9.6(L) 11.7 - 15.5 gm/dL [facility] Hematocrit 29.5(L) 35.7 - 45.8 % [facility] Mean Cell Volume 96.7(H) 82.6 - 94.4 fL [facility] Mean Cell Hemoglobin 31.5 27.1 - 32.0 pg [facility] Mean Cell Hemoglobin Concentration 32.5 31.7 - 35.0 gm/dL [facility] Platelet 244 145 - 357 x10(3)/mc L [facility] RDW Standard Deviation 50.8(H) 37.0 - 46.0 fL [facility] RDW coefficient of variation 14.3(H) 11.5 - 14.1 % [facility] Mean Platelet Volume 10.9 7.6 - 12.9 fL [facility] NRBC% auto 0.0 % [facility] NRBC Absolute 0.000 0.000 - 0.000 x10(3)/mc L [facility] Blood specimen (specimen) 09/15/2018 3:44 AM EDT 09/15/2018 4:18 AM EDT Narrative Resulting Agency Comment Spec In Lab Ori Santos MD HEMATOLOGY ORDERABLE S Performing Organization Address City/[facility]/ZIP Co de Phone Number [facility] [place] [address] * Prothrombin Time (09/15/2018 3:44 AM EDT) Prothrombin Time 12.0 9.4 - 12.5 sec [facility] International Normalization Ratio 1.0 [facility] Comment: An INR <2.0 [...] MD HEMATOLOGY ORDERABLE S Performing Organization Address City/[facility]/ZIP Co de Phone Number [facility] [place] [address] * (ABNORMAL) Basic Metabolic Panel (non-fasting) (09/15/2018 3:44 AM EDT) Glucose 135 65 - 199 mg/dL [facility] Comment:Diabetes: >=200 mg/d L plus symptoms Blood Urea Nitrogen 18 8 - 18 mg/dL [facility] Creatinine 0.74 0.70 - 1.20 mg/dL [facility] Sodium 142 135 - 145 mmol/L [facility] Potassium 3.6 3.5 - 5.0 mmol/L [facility] Comment: Please note: ??Patients with WBC >100,000 may have falsely elevated Potassium levels. ??For accurate Potassium quantification in these patients send serum separator tube (gold top) for subsequent determinations. ??Contact the Clinical Chemistry Laboratory if there are any questions. Chloride 113(H) 98 - 107 mmol/L [facility] Carbon Dioxide 20(L) 22 - 31 mmol/L [facility] Anion Gap 9 5 - 15 mmol/L [facility] Calcium 7.9(L) 8.5 - 10.5 mg/dL [facility] Est Glomerular Filtration Rate 94 >=60 mL/min/1. 73 m?? [facility] Comment: The eGFR was calculated using the CKD-EPI equation. As with all creatinine based estimates of kidney function, eGFR values calculated with the CKD-EPI equation are not accurate in patients with acute kidney failure, extremes of body mass or the acutely ill. [email or web address]/[facility] eGFR 109 >=60 mL/min/1. 73 m?? [facility] Comment: The eGFR was calculated using the CKD-EPI equation. As with all creatinine based estimates of kidney function, eGFR values calculated with the CKD-EPI equation are not accurate in patients with acute kidney failure, extremes of body mass or the acutely ill. http://[employer]/[facility] Blood specimen (specimen) 09/15/2018 3:44 AM EDT 09/15/2018 4:18 AM EDT Narrative Resulting Agency Comment Spec In Lab Javad Urban MD CHEMISTRY ORDERABLES Performing Organization Address [facility] de Phone Number [facility] [place] [address] * POCT Glucose (09/14/2018 9:52 PM EDT) Glucose, POC 124 65 - 199 mg/dL [facility] Comment: Supplemental ranges: <140 mg/dL before meals <180 mg/dL all other times of the day Blood specimen (specimen) 09/14/2018 9:52 PM EDT 09/14/2018 9:52 PM EDT Javad Urban MD POINT OF CARE TEST O RDERABLES Performing Organization Address [facility] de Phone Number [facility] [place] [address] * Film Library- Storage Only MR Head (09/13/2018 12:10 AM EDT) Narrative [facility] - 09/15/2018 10:49 AM EDT This exam is auto-finalizing. It's purpose is for storage only. Javad Urban MD IMG FILM LIBRARY ORD ERABLES Performing Organization Address [facility] de Phone Number [place], [place] * Film Library- Storage Only Ultrasound Study (09/13/2018 12:05 AM EDT) Narrative [facility] - 09/15/2018 10:47 AM EDT This exam is auto-finalizing. It's purpose is for storage only. Javad KINGG FILM LIBRARY ORD ERABLES Performing Organization Address [facility] de Phone Number [place], [place] * Film Library- Storage Only DX Chest (09/13/2018 12:00 AM EDT) Narrative [facility] - 09/15/2018 10:46 AM EDT This exam is auto-finalizing. It's purpose is for storage only. Javad Urban MD IMG FILM LIBRARY ORD ERABLES [place], [place] documented in this encounter Visit Diagnoses Diagnosis S/P ORIF bilateral foot fractures, 09/16/18 (Gitajn)- Primary S/P ORIF bilateral foot fractures, 09/16/18 (Gitajn) documented in this encounter Admitting Diagnoses Diagnosis [...] 1,000 mg acetaminophen (TYLENOL) tablet 1,000 mg 1,000 mg, Oral, EVERY 6 HOURS SCHEDULED, First dose on Thu09/14/18 at 2145, Until Discontinued, Maximum dose of acetaminophen is 4000 mg from all sources in 24 hours., Routine Given 09/14/2018 9:52 PM EDT 1,000 mg aspirin EC tablet 81 mg 81 mg, Oral, 2 TIMES DAILY, First dose (after last modification) on Thu09/15/18 at 0900, Until Discontinued, Routine Given 09/16/2018 8:07 AM EDT 81 mg Given 09/15/2018 8:15 PM EDT 81 mg Given 09/15/2018 8:18 AM EDT 81 mg azithromycin (ZITHROMAX) 500 mg in sodium chloride 0.9% 255 mL 500 mg, Intravenous, EVERY 24 HOURS, 3 doses, First dose on Thu09/14/18 at 2315, Last dose on Thu09/16/18 at 2315, Administer over 60 Minutes, Indication for (Active or Suspected): Pneumonia (Community) New Bag 09/16/2018 11:31 PM EDT 500 mg 255.1 mL/hr New Bag 09/15/2018 10:56 PM EDT 500 mg 255.1 mL/hr New Bag 09/15/2018 1:55 AM EDT 500 mg 255.1 mL/hr calcium citrate (CALCITRATE) tablet 950 mg 950 mg, Oral, DAILY, First dose on Thu09/17/18 at 0900, Until Discontinued, Routine Given 09/20/2018 9:04 AM EDT 950 mg Given 09/19/2018 9:22 AM EDT 950 mg Given 09/18/2018 9:31 AM EDT 950 mg cefTRIAXone (ROCEPHIN) 1 g vial attach to sodium chloride 0.9% 50 mL Mini-Bag Plus 1 g, Intravenous, EVERY 24 HOURS, 2 doses, First dose on Thu09/15/18 at 1600, Last dose on Thu09/16/18 at 1600, Administer over 30 Minutes, Indication for (Active or Suspected): Pneumonia (Community) New Bag 09/16/2018 4:52 PM EDT 1 g 100 mL/hr New Bag 09/15/2018 4:21 PM EDT 1 g 100 mL/hr cholecalciferol (Vitamin D3) tablet 1,000 Units 1,000 [...] EDT 40 mg fentaNYL (PF) 50mcg/mL injection 50 mcg, Intravenous, EVERY 5 MIN PRN, Starting on Thu09/16/18 at 0836, Until Thu09/16/18 at 0925, Pain, or prior to injection of local anesthetic., Hold for respiratory rate less than 8 breaths per minute. (maximum dose 200 mcg), Day of Surgery (Day of Procedure), Routine Given 09/16/2018 9:15 AM EDT 25 mcg Given 09/16/2018 9:00 AM EDT 50 mcg gabapentin (NEURONTIN) capsule 300 mg 300 mg, [...] = 37.5 grams., Routine HYDROmorphone (DILAUDID) injection 0.2-0.6 mg 0.2-0.6 mg, Intravenous, EVERY 5 MIN [...] fentanyl for breakthrough pain., PACU Recovery, Routine Given 09/16/2018 2:13 PM EDT 0.2 mg HYDROmorphone (DILAUDID) injection 0.4 mg 0.4 mg, Intravenous, ONCE, 1 dose, On Thu09/17/18 at 0630, STAT Given 09/17/2018 6:37 AM EDT 0.4 mg HYDROmorphone (DILAUDID) tablet 2 mg 2 mg, [...] 1 Units levETIRAcetam (KEPPRA) 1,000 mg in sodium chloride (ISO-OSM) 100 mL 1,000 mg (1 g), Intravenous, at 400 mL/hr, EVERY 12 HOURS SCHEDULED (2 times per day), First dose on Thu09/14/18 at 2315, Until Discontinued, Routine Given 09/15/2018 8:15 PM EDT 1,000 mg 400 mL/hr Given 09/15/2018 8:21 AM EDT 1,000 mg 400 mL/hr Given 09/15/2018 12:57 AM EDT 1,000 mg 400 mL/hr lidocaine (LIDODERM) 5 % patch 3 patch [...] 2 g in sterile water 50 mL 2 g, Intravenous, ONCE, 1 dose, On 09/18/18 at 0845, Administer over 120 Minutes New Bag 09/18/2018 9:34 AM EDT 2 g 25 mL/hr methylPREDNISolone sodium succinate (PF) (SOLU-Medrol) injection 40 mg 40 mg, Intravenous, 2 TIMES DAILY, First dose on Thu09/14/18 at 2345, Until Discontinued Given 09/15/2018 8:17 AM EDT 40 mg Given 09/15/2018 12:57 AM EDT 40 mg midazolam (PF) (VERSED) injection 1 mg 1 mg, Intravenous, EVERY 5 MIN PRN, Starting on Gloria 09/16/18 at 0836, Until Gloria 09/16/18 at 0925, Sleep, or prior to injection of local anesthetic, Hold for delirium/agitation. (Maximum dose 5 mg)., Day of Surgery (Day of Procedure), Routine Given 09/16/2018 9:00 AM EDT 1 mg Nicotine inhalation system (Nicotrol Inhaler) 1 cartridge [...] EDT 4 mg oxyCODONE (ROXICODONE) immediate release tablet 15 mg 15 mg, Oral, EVERY 3 HOURS PRN, Starting on Thu09/17/18 at 0830, Until Thu09/17/18 at 0958, Pain, severe pain or opiate tolerant patient (7-10), Do not start patient with 15 mg dose. Do not give 15 mg if patient is opiate niave., Routine Given 09/17/2018 8:44 AM EDT 15 mg oxyCODONE (ROXICODONE) immediate release tablet 5 mg 5 mg, Oral, ONCE, 1 dose, On Thu09/17/18 at 0545, Routine Given 09/17/2018 5:34 AM EDT 5 mg oxyCODONE (ROXICODONE) immediate release tablet 5-10 mg 5-10 mg, Oral, EVERY 4 HOURS PRN, Starting on Thu09/14/18 at 2257, Until Thu09/17/18 at 0221, Give 5 mg for mild-moderate pain (3-7/10) or 10 mg for severe pain (>7/10)., Routine Given 09/16/2018 10:32 PM EDT 10 mg Given 09/16/2018 6:30 PM EDT 10 mg Given 09/16/2018 2:39 PM EDT 5 mg oxyCODONE (ROXICODONE) immediate release tablet 5-10 mg 5-10 mg, Oral, EVERY 3 HOURS PRN, Starting on Thu09/17/18 at 0230, Until Thu09/17/18 at 0601, Give 5 mg for mild-moderate pain (3-7/10) or 10 mg for severe pain (>7/10)., Routine Given 09/17/2018 5:29 AM EDT 10 mg Given 09/17/2018 2:29 AM EDT 10 mg polyethylene glycol (MIRALAX) packet 17 g 17 g, Oral, 2 TIMES DAILY, First dose on Thu09/14/18 at 2315, Until Discontinued, Routine Given 09/15/2018 8:19 AM EDT 17 g potassium chloride (K-DUR/KLOR-CON) extended release tablet 20 mEq 20 mEq, Oral, EVERY 4 HOURS, 3 doses, First dose on Thu09/17/18 at 0630, Last dose on Thu09/17/18 at 1430, Routine Given 09/17/2018 3:30 PM EDT 20 mEq Given 09/17/2018 10:30 AM EDT 20 mEq Given 09/17/2018 6:36 AM EDT 20 mEq potassium chloride (K-DUR/KLOR-CON) extended release tablet 40 mEq 40 mEq, Oral, EVERY 4 HOURS, 3 doses, First dose on Thu09/18/18 at 0700, Last dose on Thu09/18/18 at 1500, Routine Given 09/18/2018 3:20 PM EDT 40 mEq Given 09/18/2018 11:57 AM EDT 40 mEq Given 09/18/2018 6:51 AM EDT 40 mEq prochlorperazine (COMPAZINE) injection 10 mg 10 mg, [...] Freeman RN)1327 (Given - Provider: Mai Bose, JULI)2014 (Given - Provider: Fely Freeman RN) 0413 (Given - Provider: Fely Freeman RN)1226 (Given - Provider: Mai Bose, JULI)202 (Given - Provider: Stacey Duenas, JULI) 0522 [...] Bose RN) 0904 (Given - Provider: Tiana Lujan RN) Dextromethorphan HBr 5 mg/5 mL oral syrup 10 mg 10 mg, Oral, EVERY 6 HOURS SCHEDULED, First dose on Thu09/17/18 at 1200, Until Discontinued 0501 (Given - Provider: Fely Freeman RN)1157 (Given - Provider: Mai Bose RN)1809 (Given - Provider: Mai Bose, JULI)2327 (Given - Provider: Fely Freeman RN) 0514 (Given - Provider: Fely Freeman RN)1306 (Given - Provider: Mai Bose RN)1820 (Given - Provider: Mai Bose RN)2357 (Given - Provider: Stacey Duenas, JULI) 0522 (Given - Provider: Stacey Duenas, JULI)1209 (Given - Provider: Tiana Lujan, RN) enoxaparin (LOVENOX) injection 40 mg 40 mg, Subcutaneous, NIGHTLY, First dose on Thu09/16/18 at 2100, Until Discontinued, Routine 2014 (Given - Provider: Fely Freeman RN) 2025 (Given - Provider: Stacey Duenas, JULI) gabapentin (NEURONTIN) capsule 300 mg 300 mg, Oral, 3 TIMES DAILY, First dose on Thu09/17/18 at 1015, Until Discontinued, Routine 09 (Given - Provider: Mai Bose RN)1523 (Given - Provider: Mai Bose, JULI)2013 (Given - Provider: Fely Freeman RN) 0922 (Given - Provider: Mai Bose RN)1513 (Given - Provider: Mai Bose, JULI)2025 (Given - Provider: Stacey Duenas, JULI) 0904 (Given - Provider: Tiana Lujan, JULI)1500 (Due) insulin lispro (HumaLOG) VIAL injection 1-4 [...] Comment: [phone] (Given - Provider: Fely Freeman, RN) 0400 (Not Given - Provider: Fely [...] (Patch Applied - Provider: Tiana Lujan, JULI) lidocaine (LIDODERM) patch REMOVAL(Linked Group 2) Transdermal, EVERY 24 HOURS, First dose on Thu09/17/18 at 2200, Until Discontinued, Remove lidocaine 5 %(700 mg/patch) patch 2200 (Patch Not Removed (add comment) - Provider: Fely Freeman RN - Comment: pt did not have patch on) 2200 (Patch Removed - Provider: Stacey Duenas, JULI) magnesium sulfate 2 g in sterile water 50 mL (COMPLETED) 2 g, Intravenous, ONCE, 1 dose, On Thu09/18/18 at 0845, Administer over 120 Minutes 0934 (New Bag - Provider: Mai Bose RN)1134 (Stopped - Provider: Mai Bose, JULI) polyethylene glycol (MIRALAX) packet 17 g 17 g, Oral, 2 TIMES DAILY, First dose on Thu09/14/18 at 2315, Until Discontinued, Routine 0932 (Not Given - Provider: Mai Bose RN - Reason: Patient/family refused - Comment: pt requesting Dulcolax supp.)2100 (Not Given - Provider: Fely Freeman RN - Reason: Patient/family refused) 0900 (Not Given - Provider: Mai Bose RN - Reason: Patient/family refused)2026 (Not Given [...] Freeman RN)1157 (Given - Provider: Mai Bose RN)1520 (Given - Provider: Mai Bose RN) senna-docusate (PERICOLACE) 8.6-50 mg per tablet 2 tablet 2 tablet, Oral, 2 TIMES DAILY, First dose on Thu09/14/18 at 2315, Until Discontinued, Routine 0932 (Given - Provider: Mai Bose RN)2014 (Given - Provider: Fely Freeman RN) 0922 (Given - Provider: Mai Bose, JULI)2026 (Given - Provider: Stacey Duenas RN) 0904 (Given - Provider: Tiana LujanJULI) simvastatin (ZOCOR) tablet 20 mg 20 mg, Oral, EVERY EVENING, First dose on Thu09/14/18 at 2315, Until Discontinued, Routine 180 (Given - Provider: Mai Bose RN) 1709 [...] RN)1520 (See Alternative - Provider: Mai Bose, JULI)2014 (See Alternative - Provider: Fely Freeman RN) 0007 (See Alternative - Provider: Fely Freeman RN)0413 (See Alternative - Provider: Fely Freeman, JULI)0922 (See Alternative - Provider: Mai Bose, JULI)1318 (See Alternative - Provider: Mai Bose, JULI)1820 (See Alternative - Provider: Mai Bose, JULI)2233 (See Alternative - Provider: Stacey Duenas, JULI) 0257 (See Alternative - Provider: Stacey Duenas, JULI)0743 (See Alternative - Provider: Stacey Duenas, RN)1210 (See Alternative - Provider: Tiana Lujan, JULI) [...] JULI)1520 (See Alternative - Provider: Mai Bose, JULI)2013 (See Alternative - Provider: Fely Freeman RN) 000 (See Alternative - Provider: Fely Freeman RN)0413 (See Alternative - Provider: Fely Freeman RN)0922 (See Alternative - Provider: Mai Bose RN)1318 (See Alternative - Provider: Mai Bose, JULI)1820 (See Alternative - Provider: Mai Bose, JULI)223 (See Alternative - Provider: Stacey Duenas, JULI) 0257 (See Alternative - Provider: Stacey Duenas, JULI)0743 (See Alternative - Provider: Stacey Duenas RN)1210 (See Alternative - Provider: Tiana Lujan, JULI) [...] Bose RN)1520 (Given - Provider: Mai Bose RN)2013 (Given - Provider: Fely Freeman RN) 6 (Given - Provider: Fely Freeman RN)0413 (Given - Provider: Fely Freeman, JULI)0922 (Given - Provider: Mai Bose, JULI)1318 (Given - Provider: Mai Bose, JULI)1820 (Given - Provider: Mai Bose, JULI)2233 (Given - Provider: Stacey Duenas, JULI) 0257 (Given - Provider: Stacey Duenas, JULI)0743 (Given - Provider: Stacey Duenas RN)1210 (Given - Provider: Tiana Lujan, JULI) ipratropium-albuterol [...] 4 hours. 1109 (Given - Provider: Mai Bose, JULI)1527 (Given - Provider: Mai Bose, JULI)2014 (Given - Provider: Fely Freeman, JULI) 0449 (Given - Provider: Fely Freeman, JULI)0926 (Given - Provider: Mai Bose, JULI) ondansetron [...] Routine documented in this encounter Care Teams Business Unit Director Relationship Specialty Start Date End Date None None PCP - General 09/14/18 09/30/18 documented as of this encounter
--- OUTSIDE RECORDS SUMMARY | 2024-02-09 14:58 | XMS_ITS | Encounter Summary ---
Author Organization [facility] [place] [address] Care Team Providers Care Horser Up Name Role Phone Unavailable Primary Care Provider Unavailabl e Encounter Details Date Type Department Care Team (Late st Contact Info) Description 09/13/2018 12:05 AM EDT Ancillary Procedure Radiology Library at [facility] [place] [place] [phone] Social History Tobacco Use Types Packs/Day Years Used Date Smoking Tobacco: Former Sex and Gender Information Value Date Recorded Sex Assigned at Not on file Gender Identity Not on file Sexual Orientation Not on file documented as of this encounter Plan of Treatment Not on file documented as of this encounter Procedures Procedure Name Priority Date/Time Associated Diagnosis Comments FILM LIBRARY STORAGE ONLY ULTRASOUND STUDY Routine 09/13/2018 12:05 AM EDT documented in this encounter Results * Film Library- Storage Only Ultrasound Study (09/13/2018 12:05 AM EDT) Narrative RAD - 09/15/2018 10:47 AM EDT This exam is auto-finalizing. It's purpose is for storage only. Javad Urban MD IMG FILM LIBRARY ORD ERABLES BRYAN R[place] documented in this encounter Visit Diagnoses Not on filedocumented in this encounter
--- OUTSIDE RECORDS SUMMARY | 2024-02-09 14:58 | XMS_ITS | Encounter Summary ---
Author Organization [facility] Address [facility] [place] [address] Care Team Providers Care Computational Scientist Name Role Phone None Primary Care Provider Unavailabl e Encounter Details Date Type Department Care Team (Late st Contact Info) Description 09/14/2018 Orders [place] [address] Josseline Macedo MD [facility] [address] [place] [address] Multiple closed fractures of left foot, initial encounter; Multiple closed fractures of foot, initial encounter Social History Tobacco Use Types Packs/Day Years Used Date Smoking Tobacco: Former Sex and Gender Information Value Date Recorded Sex Assigned at Not on file Gender Identity Not on file Sexual Orientation Not on file documented as of this encounter Plan of Treatment Not on file documented as of this encounter Results * Request For 2nd [...] below. ? Electronically signed by: TAMMIE Mackay [facility] ([phone]), at 09/28/2018 4:31 PM --------ORIGINAL REPORT -------- EXAMINATION: REQUEST FOR 2ND [...] the number below. ? Electronically signed by: Sheila Joaquin [facility] ([phone]), at 09/14/2018 4:41 PM Impressions 09/14/2018 4:41 [...] the number below. ? Electronically signed by: Sheila Joaquin [facility] ([phone]), at 09/14/2018 4:41 PM Narrative 09/14/2018 4:41 [...] number below. Javad Urban MD IMG OUTSIDE [facility] T[facility] ORDERABLES documented in this encounter Visit Diagnoses Diagnosis Multiple closed fractures of left foot, initial encounter Multiple closed fractures of foot, initial encounter documented in this encounter Care Teams Computational Scientist Relationship Specialty Start Date End Date None None PCP - General 09/14/18 09/30/18 documented as of this encounter
--- OUTSIDE RECORDS SUMMARY | 2024-02-09 14:58 | XMS_ITS | Encounter Summary ---
Author Organization [facility] Address [facility] [place] [address] Care Team Providers Care Subject Scientific Research Name Role Phone Unavailable Primary Care Provider Unavailabl e Encounter Details Date Type Department Care Team (Late st Contact Info) Description 09/12/2018 12:05 AM EDT Ancillary Procedure Radiology Library at [facility] [place] [phone] Aparna Reed MD [facility] [place] [address] Social History Tobacco Use Types Packs/Day Years [...] FILM LIBRARY STORAGE ONLY DX FOOT Routine 09/12/2018 12:05 AM EDT documented in this encounter Results * Film Library- Storage Only DX Foot (09/12/2018 12:05 AM EDT) Narrative RAD - 09/13/2018 12:55 PM EDT This exam is auto-finalizing. It's purpose is for storage only. Aparna Reed MD IMG FILM LIBRARY ORD ERABLES [facility] [address] [place] documented in this encounter Visit Diagnoses Not on filedocumented in this encounter
[2024-02-09 16:43] LABS: ALT 19 U/L (14-59); AST 14 U/L (15-37); Albumin 3.9 g/dL (3.4-5.0); Alkaline Phosphatase 94 U/L (46-116); Anion Gap 10.2 mmol/L (3-11); BUN 15 mg/dL (7-18); Bilirubin, Total 0.27 mg/dL (0.2-1.0); CO2 23.8 mmol/L (21.0-32.0); Calcium 8.8 mg/dL (8.5-10.1); Calculated LDL 158 mg/dL (<100); Chloride 107 mmol/L (98-107); Cholesterol 244 mg/dL (<200); Estimated GFR 66.12 (mL/min/1.73m2); Glucose 144 mg/dL (74-106); HDL Cholesterol 43 mg/dL (40-60); Potassium 4.1 mmol/L (3.5-5.1); Sodium 141 mmol/L (136-145); Total Protein 7.2 g/dL (6.4-8.2); Triglyceride 216 mg/dL (<150)
[2024-02-09 17:26] LABS: Hemoglobin A1C 6.1 % (<5.7)
[2024-02-15 10:47] LABS: O-desmethyltramadol 12800 ng/mL (Cutoff:25); Tramadol 22045 ng/mL (Cutoff:25)
== END 2024-02-09 14:52 | disposition home or self-care (01) ==
LOC: NCHCN 14:51
PROVIDERS: PCP Nurse Practitioner Family; Visit Provider Physician Assistant Medical
DX: E11.9 Type 2 diabetes mellitus without complications (principal); G89.4 Chronic pain syndrome; E87.6 Hypokalemia; E78.5 Hyperlipidemia, unspecified
CPT/HCPCS: 80053; 80061; 80373; 83036

== ENCOUNTER 2024-05-10 15:49 | Outpatient (REF) | payer MEDICARE, MEDICAID, SELFPAY ==
--- OUTSIDE RECORDS SUMMARY | 2024-05-10 15:51 | XMS_ITS | Clinical Summary ---
Author Organization [facility] Address [address] [place] [address] Care Team Providers Care Professional Skater Name Role Phone Una Dickinson Primary Care Provider + Social History Tobacco Use Types Packs/Day Years Used Date Smoking Tobacco: Never Assessed Interpersonal Safety Answer Date Record ed Physically Hurt Never 12/25/2019 Verbally Threaten Not on file 12/25/2019 Comments Unknown Sex and Gender Information Value Date Recorded Sex Assigned at Not on file Legal Sex Female 18:27 EST Gender Identity Not on file Sexual Orientation Not on file Plan of Treatment Health Maintenance Due Date Last Done Comments Hepatitis C Screen 1965 Hepatitis B Vaccine (1 of 3 - 19+ 3-dose series) 08/15 COVID-19 Vaccine ( season) 2024 Insurance MEDICAID [place] MEDICARE Care Teams Professional Skater Relationship Specialty Start Date End Date Una Dickinson PA PCP - General 11/10/17
--- OUTSIDE RECORDS SUMMARY | 2024-05-10 15:51 | XMS_ITS | Encounter Summary ---
Author Organization [facility] Address [address] [place] [address] Care Team Providers Care Lead Esthetician Name Role Phone Una Dickinson Primary Care Provider + Encounter Details Date Type Department Care Team (Late st Contact Info) Description 10/05/2019 Lab Requisition [facility] Pathology & Laboratory Medicine - [facility] [address] [place], [place] [id number] Outr Resulting Lab, Provider Social History Tobacco Use Types Packs/Day Years Used Date Smoking Tobacco: Never Assessed Comments Unknown Sex and Gender Information Value [...] Salmonella PCR Negative Negative 10/06/2019 12:12 EDT [facility] Shigella/Enteroin vasive E. coli Negative Negative 10/06/2019 12:12 EDT [facility] HN LAB CAMPYLOBACTER PCR Negative Negative 10/06/2019 12:12 EDT [facility] Shiga Toxin PCR Negative Negative 0 12:12 EDT [facility] Feces SPECIMEN FROM RECTUM / Unknown 10/04/2019 8:00 EDT 10/05/2019 16:56 EDT us Provider Outr Resulting Lab MICROBIOLOGY - GENER AL ORDERABLES Final Result [facility] [address] [place] [address] documented in this encounter Visit Diagnoses Not on filedocumented in this encounter Care Teams Lead Esthetician Relationship Specialty Start Date End Date Una Dickinson PA PCP - General 11/10/17 documented as of this encounter
--- OUTSIDE RECORDS SUMMARY | 2024-05-10 15:51 | XMS_ITS | Encounter Summary ---
Author Organization [facility] Address [address] [place] [address] Care Team Providers Care Cnc Operator Name Role Phone Unavailable Primary Care Provider Unavailabl e Encounter Details Date Type Department Care Team (Late st Contact Info) Description 09/23/2005 Results Only [facility] conversion [address] [place] [address] Abdirashid Parmar, DO [address] [facility] [address] [place], [place] [id number] Social History Tobacco Use Types Packs/Day Years [...] ? [place] ? Accession #: ? [id number] ? : ? 1965 (Age: 40) ??F [...] noted in any of the esophageal biopsies. /[facility] Document reviewed and electronically signed by: JAVIER [...] soft tissue, entirely submitted as (D). ??(Nieves Davila)/[facility] End of Report [facility] 09/23/2005 09/23/2005 15: 31 EDT us Abdirashid Parmar DO PATHOLOGY ORDERABLES Fi nal Result [facility] [address] [place] [address] documented in this encounter Visit Diagnoses Not on filedocumented in this encounter
--- OUTSIDE RECORDS SUMMARY | 2024-05-10 15:51 | XMS_ITS | Referral Summary ---
Author Organization [facility] Address [address] [place] [address] Care Team Providers Care Human Resources Hr Generalist Name Role Phone Una Dickinson Primary Care [...] file Plan of Treatment Not on file Insurance [place]ID [place]ARE Care Teams Human Resources Hr Generalist Relationship Specialty Start Date End Date Una Dickinson PA PCP - General 11/10/17
--- OUTSIDE RECORDS SUMMARY | 2024-05-10 15:51 | XMS_ITS | Encounter Summary ---
Author Organization [facility] Address [address] [place] [address] Care Team Providers Care Filling And Stapling Machine Operator Name Role Phone Una Dickinson Primary Care Provider + Encounter Details Date Type Department Care Team (Late st Contact Info) Description 01/09/2021 Lab Requisition [facility] Pathology & Laboratory Medicine - [facility] [address] [place] [address] Outr Resulting Lab, Provider Social History Tobacco [...] IGA <1.2 <4.0 U/mL 01/14/2021 12:53 EDT [facility] Comment: A negative result may be due to IgA deficiency and does not rule out celiac disease. ? Negative: ??<4.0 U/mL ? Weak Positive: ??4.0 - 10.0 U/mL ? Positive: ??>10.0 U/mL Results were obtained with the [employer] QUANTA Lite R h-tTG IgA DANYELLE assay on the [employer] DSX. IgA 80(L) 85 - 499 mg/dL 01/14/2021 12:53 EDT [facility] Celiac Disease Interpretation Low total serum IgA. Recommend referral to gastroenterology specialist for additional evaluation. 01/14/2021 12:53 EDT [facility] Blood VENOUS BLOOD / Unknown 01/08/2021 12:10 EDT 01/09/2021 16:17 EDT us Provider Outr Resulting Lab IMMUNOLOGY AND SEROL OGY ORDERABLES Final Result Performing Organization Address City/State/[facility] Co de Phone Number [facility] [address] [place] [address] documented in this encounter Visit Diagnoses Not on filedocumented in this encounter Care Teams Filling And Stapling Machine Operator Relationship Specialty Start Date End Date Una Dickinson PA PCP - General 11/10/17 documented as of this encounter
--- OUTSIDE RECORDS SUMMARY | 2024-05-10 15:51 | XMS_ITS | Encounter Summary ---
Author Organization [facility] Address [address] [place] [address] Care Team Providers Care Spinner Hydraulic Name Role Phone Unavailable Primary Care Provider Unavailabl e Encounter Details Date Type Department Care Team (Late st Contact Info) Description 10/16/2003 Results Only [facility] conversion [address] [place] [address] Doris Tay MD [address] [place], [place] [id number] Social History Tobacco Use Types Packs/Day Years [...] ? [place]ICKSON [place] ? Accession #: ? [id number] : ? 1965 (Age: 38) ??F ?Collect [...] End of Report RO [facility] 10/16/2003 10/18/2003 us Doris Tay MD PATHOLOGY ORDERABLES Final Resul t Performing Organization Address City/State/[facility] Co de Phone Number [facility] [address] [place] [address] documented in this encounter Visit Diagnoses Not on filedocumented in this encounter
--- OUTSIDE RECORDS SUMMARY | 2024-05-10 15:51 | XMS_ITS | Encounter Summary ---
Author Organization [facility] Address [address] [place] [address] Care Team Providers Care Prenatal Genetic Counselor Name Role Phone Una Dickinson Primary Care Provider + Encounter Details Date Type Department Care Team (Late st Contact Info) Description 10/12/2019 Lab Requisition [facility] Pathology & Laboratory Medicine - [facility] [address] [place], [place] [address] Outr Resulting Lab, Provider Social History Tobacco [...] 85 - 499 mg/dL 10/13/2019 10:53 EDT [facility] Blood VENOUS BLOOD / Unknown 10/11/2019 11:50 EDT 10/12/2019 15:42 EDT us Provider Outr Resulting Lab CHEMISTRY & BLOOD GA S ORDERABLES Final Result [facility] [address] [place] [address] documented in this encounter Visit Diagnoses Not on filedocumented in this encounter Care Teams Prenatal Genetic Counselor Relationship Specialty Start Date End Date Una Dickinson PA PCP - General 11/10/17 documented as of this encounter
--- OUTSIDE RECORDS SUMMARY | 2024-05-10 15:51 | XMS_ITS | Encounter Summary ---
Author Organization [facility] Address [facility] [place] [address] Care Team Providers Care Electrocardiographic Technician Name Role Phone None Primary Care Provider Unavailabl e Encounter Details Date Type Department Care Team (Latest Contact Info) Description 12/28/2023 2:00 PM EDT TH Visit (TeleHealth) Infectious Disease at [facility] [place] [id number] Stephenie Moya MD [facility] [place] [address] 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; penitentiary current use of antibiotics Social History Tobacco Use Types Packs/Day Years Used Date Smoking Tobacco: Every Day Cigarettes 1 28 Smokeless Tobacco: Never Comments:Currently using kalia otine inhaler to help herself quit (11/08/18) Alcohol Use Standard Drinks/Week Comments Not Currently 0 (1 standard drink = 0.6 oz pur e alcohol) [facility] Utilities Answer Date Recorded In the past 12 months has e [employer], gas, oil, or water [facility] threatened to shut off services in your [...] any time in the past 12 m [facility], were you homeless or living [...] dry socket after being evaluated at an [facility]. She had two additional antibiotics [...] of ceftriaxone. On 12/27, she called the [facility] office stating that she was not able to make her into therapy appointment due to lack of money for gas. She states that her PICC line fell out on 12/22 and had been taking her old prescription of Augmentin. Appointment via telephone given technology issues. 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
--- OUTSIDE RECORDS SUMMARY | 2024-05-10 15:51 | XMS_ITS | Encounter Summary ---
Author Organization [facility] Address [address] [place] [address] Care Team Providers Care Jeep Mechanic Name Role Phone Unavailable Primary Care Provider Unavailabl e Encounter Details Date Type Department Care Team (Latest Contact Info) Description 11/16/2000 15:32 EDT Hospital Encounter [facility] Emergency Department - [facility] [address] [place], [place] [id number] Emergency, Default, MD Discharge Disposition: Home or [...] is no evidence of fracture or dislocation. /wades Raya Millan PA-C [facility] ORDE RABLES Final Result * WRIST 3 OR MORE VIEWS (11/16/2000 [...] thumb r/o fx + Raya Millan PA-C [facility] ORDE RABLES Final Result documented in this encounter Visit Diagnoses Not on filedocumented in this encounter
--- OUTSIDE RECORDS SUMMARY | 2024-05-10 15:51 | XMS_ITS | Encounter Summary ---
Author Organization [facility] Address [address] [place] [address] Care Team Providers Care Heavy Duty Mechanic Farm Equipment Name Role Phone Una Dickinson Primary Care Provider + Encounter Details Date Type Department Care Team (Late st Contact Info) Description 01/03/2021 Lab Requisition [facility] Pathology & Laboratory Medicine - [facility] [address] [place], [place] [address] Outr Resulting Lab, Provider Social History Tobacco [...] DETECTION, PCR Negative Negative 01/04/2021 11:31 EDT [facility] Comment:This test was maame alfredo and its performance characteristics determined by [facility]. It has not been cleared or [...] Unknown 01/02/2021 11:15 EDT 01/03/2021 17:26 EDT us Provider Outr Resulting Lab MICROBIOLOGY - GENER AL ORDERABLES Final Result Performing Organization Address City/[facility] Co de Phone Number [facility] [address] [place] [address] * HERPES SIMPLEX VIRUS MOLECULAR DETECTION, PCR (01/02/2021 11:15 EDT) Herpes Simplex Virus Molecular Detection 1, PCR Negative Negative 01/04/2021 11:32 EDT [facility] Herpes Simplex Virus Molecular Detection 2, PCR Negative Negative 01/04/2021 11:32 EDT [facility] Swab ENTIRE BUTTOCK / Unknown 01/02/2021 11:15 EDT 01/03/2021 17:26 EDT us Provider Outr Resulting Lab MICROBIOLOGY - GENER AL ORDERABLES Final Result Performing Organization Address City/[facility] Co de Phone Number [facility] [address] [place] [address] documented in this encounter Visit Diagnoses Not on filedocumented in this encounter Care Teams Heavy Duty Mechanic Farm Equipment Relationship Specialty Start Date End Date Una Dickinson PA PCP - General 11/10/17 documented as of this encounter
--- OUTSIDE RECORDS SUMMARY | 2024-05-10 15:51 | XMS_ITS | Encounter Summary ---
Author Organization [facility] Address [address] [place] [address] Care Team Providers Care Actuary Manager Name Role Phone Una Dickinson Primary Care Provider + Encounter Details Date Type Department Care Team (Late st Contact Info) Description 10/05/2019 Lab Requisition [facility] Pathology & Laboratory Medicine - [facility] [address] [place], [place] [address] Outr Resulting Lab, Provider Social History Tobacco [...] and Giardia Antigen Neg 0 10:41 EDT [facility] Feces SPECIMEN FROM RECTUM / Unknown 10/04/2019 8:00 EDT 10/05/2019 16:55 EDT us Provider Outr Resulting Lab MICROBIOLOGY - GENER AL ORDERABLES Final Result Performing Organization Address [facility] Co de Phone Number [facility] [address] [place] [address] * OVA/PARASITE EXAM (10/04/2019 8:00 EDT) Parasite No ova and parasites seen. 10/06/2019 13:58 EDT [facility] Feces SPECIMEN FROM RECTUM / Unknown 10/04/2019 8:00 EDT 10/05/2019 16:55 EDT Narrative [facility] - 10/06/2019 13:58 EDT (If Cryptosporidium, Cyclospora, or Microsporidium are suspected, specific tests must be requested.) Single negative specimen does not rule out the possibility of a parasitic infection. us Provider Outr Resulting Lab MICROBIOLOGY - GENER AL ORDERABLES Final Result Performing Organization Address [facility] Co de Phone Number [facility] [address] [place] [address] documented in this encounter Visit Diagnoses Not on filedocumented in this encounter Care Teams Actuary Manager Relationship Specialty Start Date End Date Una Dickinson PA PCP - General 11/10/17 documented as of this encounter
--- OUTSIDE RECORDS SUMMARY | 2024-05-10 15:51 | XMS_ITS | Encounter Summary ---
Author Organization [facility] Address [address] [place] [address] Care Team Providers Care Otr Owner Operator Truck Driver Name Role Phone Unavailable Primary Care Provider Unavailabl e Encounter Details Date Type Department Care Team (Late st Contact Info) Description 05/02/2008 Before PRISM Converted Visit (Maple) [facility] conversion [address] [place] [address] Emma Zapata, SUPERVISOR [employer] [facility] [address] [place], [place] [id number] Social History Tobacco Use Types Packs/Day Years [...] ? [place] ? Accession #: ? [id number] ? : ? 1965 (Age: 42) ??F [...] of Report ? RO [facility] 05/02/2008 05/03/2008 us Emma Zapata SUPERVISOR [employer] PATHOLOGY ORDERABLES Final Resu lt RO [facility] [address] [place] [address] documented in this encounter Visit Diagnoses Not on filedocumented in this encounter
--- OUTSIDE RECORDS SUMMARY | 2024-05-10 15:51 | XMS_ITS | Encounter Summary ---
Author Organization [facility] Address [address] [place] [address] Care Team Providers Care Dessert Cup Machine Feeder Name Role Phone Una Dickinson Primary Care Provider + Encounter Details Date Type Department Care Team (Late st Contact Info) Description 09/28/2019 Lab Requisition [facility] Pathology & Laboratory Medicine - [facility] [address] [place], [place] [address] Outr Resulting Lab, Provider Social History Tobacco [...] Not Detected Not Detected 09/29/2019 15:20 EDT [facility] Comment: This test has not been [...] or revoked sooner. ??Factsheets for healthcare providers: ??https://www.fda.gov/media/879753/download Factsheets for patients: https://www.fda.gov/media/070872/download Negative results do not preclude infection with SARS-CoV-2 virus, and should not be the sole basis of a patient management decision. Swab ENTIRE NASOPHARYNX / Unknown 09/28/2019 14:15 EDT 09/28/2019 20:25 EDT us Provider Outr Resulting Lab MICROBIOLOGY - GENER AL ORDERABLES Final Result Performing Organization Address City/State/[facility] Co de Phone Number [facility] [address] [place] [address] * COVID-19 TESTING (09/28/2019 14:15 EDT) COVID-19 rt-PCR Result Not Detected Not Detected 09/29/2019 15:37 EDT [facility] Comment: This test has not been [...] or revoked sooner. ??Factsheets for healthcare providers: ??https://www.fda.gov/media/886176/download Factsheets for patients: https://www.fda.gov/media/437143/download Negative results do not preclude infection with SARS-CoV-2 virus, and should not be the sole basis of a patient management decision. Performing Lab [facility] 09/29/2019 15:37 EDT [facility] Swab ENTIRE NASOPHARYNX / Unknown 09/28/2019 14:15 EDT 09/28/2019 20:25 EDT us Provider Outr Resulting Lab MICROBIOLOGY - GENER AL ORDERABLES Final Result [facility] [address] LABORATORY [address] [place] [address] documented in this encounter Visit Diagnoses Not on filedocumented in this encounter Care Teams Dessert Cup Machine Feeder Relationship Specialty Start Date End Date Una Dickinson PA PCP - General 11/10/17 documented as of this encounter
--- OUTSIDE RECORDS SUMMARY | 2024-05-10 15:51 | XMS_ITS | Encounter Summary ---
Author Organization [facility] Address [address] [place] [address] Care Team Providers Care Lawn Care Professional Name Role Phone Carlos Hyde MD Primary Care Provider [phone] Encounter Details Date Type Department Care Team (Latest Contact Info) Description 11/06/2017 13:27 EDT - 11/06/2017 23:59 EDT Hospital Encounter [address] [address] Unknown, Provider, MD Discharge Disposition: Home or Self Care [...] Code Departure Means Destination Home or Self [facility] documented in this encounter Plan of Treatment Not on file documented as of this encounter Visit Diagnoses Not on filedocumented in this encounter Care Teams Lawn Care Professional Relationship Specialty Start Date End Date Carlos Hyde MD PCP - General 03/31/15 11/09/17 documented as of this encounter
--- OUTSIDE RECORDS SUMMARY | 2024-05-10 15:51 | XMS_ITS | Encounter Summary ---
Author Organization [facility] Address [address] [place] [address] Care Team Providers Care Tester Regulator Name Role Phone Una Dickinson Primary Care Provider + Encounter Details Date Type Department Care Team (Late st Contact Info) Description 10/06/2019 Lab Requisition [facility] Pathology & Laboratory Medicine - [facility] [address] [place], [place] [address] Outr Resulting Lab, Provider Social History Tobacco [...] difficile PCR Negative Negative 10/06/2019 14:43 EDT [facility] Feces SPECIMEN FROM RECTUM / Unknown 10/04/2019 8:00 EDT 10/06/2019 9:51 EDT us Provider Outr Resulting Lab MICROBIOLOGY - GENER AL ORDERABLES Final Result [facility] [address] [place] [address] documented in this encounter Visit Diagnoses Not on filedocumented in this encounter Care Teams Tester Regulator Relationship Specialty Start Date End Date Una Dickinson PA PCP - General 11/10/17 documented as of this encounter
--- OUTSIDE RECORDS SUMMARY | 2024-05-10 15:51 | XMS_ITS | Encounter Summary ---
Author Organization [facility] Address [address] [place] [address] Care Team Providers Care Proof Load Mechanic Name Role Phone Una Dickinson Primary Care Provider + Encounter Details Date Type Department Care Team (Late st Contact Info) Description 05/28/2022 Lab Requisition [facility] Pathology & Laboratory Medicine - [facility] [address] [place], [place] [address] Outr Resulting Lab, Provider Social History Tobacco [...] Procedure Name Priority Date/Time Associated Diagnosis Comments AMADO INFLUENZA A AND B, RSV PCR Routine 05/28/2022 11:00 EST documented in this encounter Results * INFLUENZA A AND B,RSV PCR (05/28/2022 11:00 EST) FLU A RNA Result (FLARES) Negative Negative 05/29/2022 22:01 EST [facility] FLU B RNA Result (FLBRES) Negative Negative 05/29/2022 22:01 EST [facility] RSV RNA Result (RSVRES) Negative Negative 05/29/2022 22:01 EST [facility] Swab ENTIRE NASOPHARYNX / Unknown 05/28/2022 11:00 EST 05/29/2022 17:48 EST us Provider Outr Resulting Lab MICROBIOLOGY - GENER AL ORDERABLES Final Result Performing Organization Address City/State/[facility] Co de Phone Number [facility] [address] [place] [address] documented in this encounter Visit Diagnoses Not on filedocumented in this encounter Care Teams Proof Load Mechanic Relationship Specialty Start Date End Date Una Dickinson PA PCP - General 11/10/17 documented as of this encounter
--- OUTSIDE RECORDS SUMMARY | 2024-05-10 15:51 | XMS_ITS | Encounter Summary ---
Author Organization [facility] Address [address] [place] [address] Care Team Providers Care Tie Maker Name Role Phone Unavailable Primary Care Provider Unavailabl e Encounter Details Date Type Department Care Team (Late st Contact Info) Description 08/12/2002 Results Only [facility] conversion [address] [place] [address] Unknown, Provider, Social History Tobacco Use Types [...] ? ERICKSON [place] ? Accession #: ? [id number] : ? 1965 (Age: 37) ??F ?Collect [...] Report Date: ??08/18/2002 08:32 End of Report [place] [facility] 08/12/2002 2002 us Provider Unknown PATHOLOGY ORDERABLES Final R esult [facility] [address] [place] [address] documented in this encounter Visit Diagnoses Not on filedocumented in this encounter
--- OUTSIDE RECORDS SUMMARY | 2024-05-10 15:51 | XMS_ITS | Encounter Summary ---
Author Organization [facility] Address [address] [place] [address] Care Team Providers Care Hog Feeder Name Role Phone Unavailable Primary Care Provider Unavailabl e Encounter Details Date Type Department Care Team (Late st Contact Info) Description 05/15/2004 Results Only [facility] conversion [address] [place] [address] Ld Yanez MD [address] [place], [place] [id number] Social History Tobacco Use Types Packs/Day Years [...] reading/interpreti ng unformatted reports. Name: ? ERICKSON [place] ? Accession #: ? [id number] ? : ? 1965 (Age: 38) ??F [...] submitted as (A). ?? Received in formalin [facility] and uterus, cervix, colleen ovaries, right tube [...] ?Posterior endomyometrium B4 ?Posterior cervix B5 ?Two district representative sections of right fallopian tube and one district representative section of right ? ovary with angel nodule B6 ?Residential Electrician section of left ovary (Dr. Ledbetter-AF)/tmg End of Report [facility] 05/15/2004 05/16/2004 8:1 7 EST us Ld Yanez MD PATHOLOGY ORDERABLES Final Resul t [facility] [address] [place] [address] documented in this encounter Visit Diagnoses Not on filedocumented in this encounter
--- OUTSIDE RECORDS SUMMARY | 2024-05-10 15:51 | XMS_ITS | Encounter Summary ---
Author Organization [facility] Address [address] [place] [address] Care Team Providers Care Roundhouse Firer/Fireman Name Role Phone Unavailable Primary Care Provider Unavailabl e Encounter Details Date Type Department Care Team (Late st Contact Info) Description 04/14/2003 Results Only [facility] conversion [address] [place] [address] Maria E Esquivel MD [address] [place] [address] [place] [address] Social History Tobacco Use Types Packs/Day Years [...] ? ERICKSON [place] ? Accession #: ? [id number] ? : ? 1965 (Age: 37) ??F [...] of 0.2 cm. No are identified. ??Three sales representative sections of normal-appearing fallopian tube are submitted as (A1), and two sales representative sections of the dilated portion are submitted as (A2). ??(Dr. Beverly)/[facility] End of Report RO HOLLAND 04/14/2003 04/14/2003 15: 13 EST us Maria E Esquivel MD PATHOLOGY ORDERABLES Final Resu lt [facility] [address] [place] [address] documented in this encounter Visit Diagnoses Not on filedocumented in this encounter
--- OUTSIDE RECORDS SUMMARY | 2024-05-10 15:51 | XMS_ITS | Encounter Summary ---
Author Organization [facility] Address [address] [place] [address] Care Team Providers Care Restrike Hammer Operator Name Role Phone Una Dickinson Primary Care Provider + Encounter Details Date Type Department Care Team (Late st Contact Info) Description 06/06/2021 Lab Requisition [facility] Pathology & Laboratory Medicine - [facility] [address] [place] [address] Alejandra Norris PA-C [address] [place] [address] Encounter for other general examination Social History [...] management options, if applicable. 06/10/2021 11:19 EST [facility] Final Diagnosis A. SKIN OF BREAST, RIGHT, SUPERIOR/MEDIAL, BIOPSY: - Most suggestive of prurigo nodularis. See microscopic. B. SKIN OF BREAST, RIGHT, LATERAL, EXCISION: - Epidermal ulceration with dermal reactive change. See microscopic. 06/10/2021 11:19 [facility] Attestation By the signature below, the attending physician certifies that they have 1) personally conducted a gross and/or microscopic examination of the described specimen(s), and/or personally interpreted the results of laboratory testing of the described specimen(s), and 2) personally rendered or confirmed the above diagnosis. 06/10/2021 11:19 [facility] at [address] Microscopic Description [...] examined. Clinical correlation is recommended. 06/10/2021 11:19 [facility] Clinical History Skin lesions right breast 06/10/2021 11:19 [facility] Gross Description A. Received [...] LILLY FARRAR(ASCP) 06/07/2021 7:46 06/10/2021 11:19 EST [facility] Performing Lab [facility] 06/10/2021 11:19 EST [facility] Scanned Images 06/10/2021 11:19 EST [facility] Tissue TISSUE SPECIMEN FROM SKIN / Unknown 06/06/2021 15:15 EST 06/06/2021 23:44 EST Tissue specimen (specimen) SPECIMEN FROM SKIN / Unknown 06/06/2021 15:15 EST 06/06/2021 23:44 EST us Alejandra Norris PA-C PATHOLOGY ORDERABLES Final Result [facility] [address] [place] [address] documented in this encounter Visit Diagnoses Diagnosis Encounter for other general examination documented in this encounter Care Teams Restrike Hammer Operator Relationship Specialty Start Date End Date Una Dickinson PA PCP - General 11/10/17 documented as of this encounter
--- OUTSIDE RECORDS SUMMARY | 2024-05-10 15:51 | XMS_ITS | Encounter Summary ---
Author Organization [facility] Address [address] [place] [address] Care Team Providers Care Senior Patrol Agent Name Role Phone Carlos Hyde MD Primary Care Provider [phone] Encounter Details Date Type Department Care Team (Late st Contact Info) Description 11/06/2017 Results Only [facility] [phone] Carolyn Ferrara, DO [address] [place] [address] Social History Tobacco Use Types [...] ? [place] ? Accession #: ? [id number] ? : ? 1965 (Age: 52) ??F [...] (ASCP) 11/09/2017 7:44 AM End of Report [facility] 11/06/2017 23:4 4 EDT 11/06/2017 23:44 EDT us Carolyn Ferrara DO PATHOLOGY ORDERABLES Final Res ult [facility] [address] [place] [address] documented in this encounter Visit Diagnoses Not on filedocumented in this encounter Care Teams Senior Patrol Agent Relationship Specialty Start Date End Date Carlos Hyde MD PCP - General 03/31/15 11/09/17 documented as of this encounter
--- OUTSIDE RECORDS SUMMARY | 2024-05-10 15:51 | XMS_ITS | Clinical Summary ---
Author Organization [facility] Address 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 No 11/20/2023 IPV Inpatient Questions [...] Hepatitis B vaccine (0-59 yrs) (1) 08/15/1986 Tetanus/Diphtheria/Pertussis Vaccines (1 - Tdap) 08/15/1986 HPV test 08/15/1997 PAP Smear 08/15/1997 Breast Cancer Share Decision Needed 2007 Breast Cancer screening 2007 Zoster vaccine (1 of 2) 08/15/2017 DM Hemoglobin A1c 12/16/2018 09/16/2018 Advance Directive 08/15/2022 Covid-19 Vaccine (1 - 2023-2 5 season) 2024 Influenza (Flu) vaccine (1 o f 1 - Influenza standard series) 01/24/2024 DM Creatinine yearly 11/20/2024 11/21/2023, 11/20/2023, 11/19/2023, Additional history exists Medical Devices Implanted Type Area Process Technician Device Identifier Shelf Expiration Date Model / Serial / Lot Screw,Crtx,Sta p,Star,2x18mm ([id number]) - [id number] Implanted:Qty: 1 on 09/16/2018 by Aparna Reed MD at [facility] IMPLANTS Right: Foot [employer] - [employer]ENA [employer] 201.368.97 / / Screw,Lck,Stap ,Star,2x14mm ([id number]) - [id number] Implanted:Qty: 1 on 09/16/2018 by Aparna Reed MD at [facility] IMPLANTS Right: Foot [employer] [facility] - [employer]ENA [employer] 201.884 / / Screw,Lck,Stap ,Star,2x18mm ([id number]) - [id number] Implanted:Qty: 1 on 09/16/2018 by Aparna Reed MD at [facility] IMPLANTS Right: Foot [employer] - ALEENA SALVATORE 201.888 / / Plate,Lcp,7h,2 .0x52mm ([id number]) - [id number] Implanted:Qty: 1 on 09/16/2018 by Aparna Reed MD at [facility] IMPLANTS Right: Foot [email or web address] - ALEENA SALVATORE 247.347 / / Plate,Cndylr,L cp,7h,2.4mm ([id number]) ([employer]ore[employer]) - [id number] Implanted:Qty: 1 on 09/16/2018 by Aparna Reed MD at [facility] IMPLANTS Right: Foot [email or web address] - [employer]LEENA [employer]ORE 249.679 / / Bone,Crushed,C ancellous,10cc ([id number]) ([employer]oreq) - [id number] Implanted:Qty: 1 on 09/16/2018 by Aparna Reed MD at [facility] IMPLANTS Right: Foot [facility] 05/30/2023 [facility] / / [id number] Pin,Kwire,Plai n,2,0.563b5kr, Ns ([id number]) - [id number] Implanted:Qty: 3 on 09/16/2018 by Aparna Reed MD at [facility] IMPLANTS Left: Foot [employer] - [employer] [id number] / / Plate,Lcp,Cndy lr,7h-Shft,2mm ([id number]) - [id number] Implanted:Qty: 1 on 09/16/2018 by Aparna Reed MD at [facility] IMPLANTS Left: Foot [email or web address] - [employer]LEENA [employer] 247.349 / / Screw,Lck,Stap ,Star,2x12mm ([id number]) - [id number] Implanted:Qty: 1 on 09/16/2018 by Aparna Reed MD at [facility] IMPLANTS Left: Foot [employer] - ALEENA [employer]ORE 201.882 / / Screw,Crtx,Sta p,T8,2.4x16mm ([id number]) - [id number] Implanted:Qty: 1 on 09/16/2018 by Aparna Reed MD at [facility] IMPLANTS Right: Foot [employer] - [employer]ENA [employer] 201.766 / / Screw,Lck,Stap ,Star,2x10mm ([id number]) - [id number] Implanted:Qty: 1 on 09/16/2018 by Aparna Reed MD at [facility] IMPLANTS Left: Foot [employer] - [employer]ENA [employer] 201.880 / / Screw,Crtx,Sta p,Star,2x12mm ([id number]) - [id number] Implanted:Qty: 1 on 09/16/2018 by Aparna Reed MD at [facility] IMPLANTS Left: Foot [employer] - [employer] 201.362.97 / / Screw,Crtx,Sta p,Star,2x14mm (5506916) - [id number] Implanted:Qty: 1 on 09/16/2018 by Aparna Reed MD at [facility] IMPLANTS Left: Foot [employer] - [employer]ENA [employer] 201.364.97 / / Screw,Crtx,Sta p,Star,2x14mm ([id number]) - [id number] Implanted:Qty: 1 on 09/16/2018 by Aparna Reed MD at [facility] IMPLANTS Right: Foot [email or web address] - [employer]ENA [employer] 201.364.97 / / Screw,Va,Lck,S lftp,T6,2x22mm ([id number]) - [id number] Implanted:Qty: 1 on 09/16/2018 by Aparna Reed MD at [facility] IMPLANTS Right: Foot [employer] - [employer] 02.130.322 / / Screw,Crtx,Sta p,Star,2x12mm ([id number]) - [id number] Implanted:Qty: 1 on 09/16/2018 by Aparna Reed MD at [facility] IMPLANTS Right: Foot [employer] [facility] - [employer] 201.362.97 / / Screw,Va,Lck,S lftp,T6,2x18mm ([id number]) - [id number] Implanted:Qty: 1 on 09/16/2018 by Aparna Reed MD at [facility] IMPLANTS Right: Foot [employer] - [employer] 02.130.318 / / Screw,Va,Lck,S lftp,T6,2x16mm ([id number]) - [id number] Implanted:Qty: 1 on 09/16/2018 by Aparna Reed MD at [facility] IMPLANTS Right: Foot [employer] [facility] - [employer] 02.130.316 / / Screw,Crtx,Sta p,Star,2x16mm ([id number]) - [id number] Implanted:Qty: 1 on 09/16/2018 by Aparna Reed MD at [facility] IMPLANTS Right: Foot [employer] [facility] - [employer] 201.366.97 / / Screw,Crtx,Sta p,Strdrv,2x10m m ([id number]) - [id number] Implanted:Qty: 1 on 09/16/2018 by Aparna Reed MD at [facility] IMPLANTS Left: Foot [employer] [facility] - [employer] 201.360.97 / / Screw,Crtx,Sta p,T8,2.4x26mm ([id number]) - [id number] Implanted:Qty: 1 on 09/16/2018 by Aparna Reed MD at [facility] IMPLANTS Right: Foot [employer] [facility] - [employer] 201.776 / / Guidew,Thrd,1. 1w362xl (6840291) - [id number] Implanted:Qty: 3 on 09/16/2018 by Aparna Reed MD at [facility] IMPLANTS Right: Foot [employer] [facility] - [employer] 292.727 / / Screw,Crtx,Sta p,T8,2.4x22mm (5728063) - [id number] Implanted:Qty: 1 on 09/16/2018 by Aparna Reed MD at [facility] IMPLANTS Right: Foot [employer] [facility] - [employer] 201.772 / / Screw,Slftp,Lc k,Star,2.4x12m m (3364996) - [id number] Implanted:Qty: 1 on 09/16/2018 by Aparna Reed MD at [facility] IMPLANTS Right: Foot [employer] [facility] - [employer] 212.812 / / Screw,Lck,Stap ,Star,2.4x6mm (8471169) - [id number] Implanted:Qty: 1 on 09/16/2018 by Aparna Reed MD at [facility] IMPLANTS Right: Foot [employer] [facility] - [employer] 212.806 / / Screw,Lck,Stap ,Star,2.4x18mm ([id number]) - [id number] Implanted:Qty: 1 on 09/16/2018 by Aparna Reed MD at [facility] IMPLANTS Right: Foot [employer] [facility] - [employer] 212.818 / / Screw,Crtx,Sta p,Strdrv,2x9mm (2082782) - [id number] Implanted:Qty: 1 on 09/16/2018 by Aparna Reed MD at [facility] IMPLANTS Right: Foot [employer] [facility] - [employer] 201.359.97 / / Screw,Crtx,Sta p,Star,2x28mm (4390182) - [id number] Implanted:Qty: 1 on 09/16/2018 by Aparna Reed MD at [facility] IMPLANTS Right: Foot [employer] [facility] - [employer] 201.376.97 / / Explanted Type Area Process Technician Device Identifier Shelf Expiration Date Model / Serial / Lot PinKwire,Troc 1 Ed,Ns,[id number] ([id number]) (Autoreq) - [id number] Explanted:Qty: 1 on 09/16/2018 by Aparna Reed MD at [facility] IMPLANTS Right: Foot [employer] - ALEENA [employer]ORE 292.20 / / PinKwire,Troc 1ed,Ns,0b988ao ([id number]) - [id number] Explanted:Qty: 2 on 09/16/2018 by Aparna Reed MD at [facility] IMPLANTS Right: Foot [email or web address] - ALEENA SALVATORE 292.10 / / Procedures Procedure Name Priority Date/Time Associated Diagnosis Comments BASIC METABOLIC PANEL Routine 11/21/2023 5:25 AM EDT HEMOGLOBIN A1C Routine 09/16/2018 3:33 PM EDT from Last 3 Months or Most Recently Relevant to Health Maintenance Results * (ABNORMAL) Basic Metabolic Panel (non-fasting) (11/21/2023 5:25 AM EDT) Glucose 113 65 - 199 mg/dL [facility] Comment:Diabetes: >=200 mg/d L plus symptoms Blood Urea Nitrogen 15 8 - 18 mg/dL [facility] Creatinine 0.93 0.70 - 1.20 mg/dL [facility] Sodium 143 135 - 145 mmol/L [facility] Potassium 3.6 3.5 - 5.0 mmol/L [facility] Comment: Please note: ??Patients with WBC >100,000 may have falsely elevated Potassium levels. ??For accurate Potassium quantification in these patients send serum separator tube (gold top) for subsequent determinations. ??Contact the Clinical Chemistry Laboratory if there are any questions. Chloride 111(H) 98 - 107 mmol/L [facility] Carbon Dioxide 22 22 - 31 mmol/L [facility] Anion Gap 10 5 - 15 mmol/L [facility] Calcium 8.4(L) 8.5 - 10.5 mg/dL [facility] Est Glomerular Filtration Rate 72 >=60 mL/min/1. 73 m?? [facility] Comment: This patient's estimated [...] In Lab Misael Joaquin MD CHEMISTRY ORDERABLES [facility] [place] [place] [address] * Hemoglobin A1c (09/16/2018 3:33 PM EDT) Hemoglobin A1c 5.5 4.3 - 5.6 % [facility] Comment: Reference Range: 4.3 [...] Mellitus, Diabetes Care 2013; 36: Suppl. 1, S67-60 Estimated Average Glucose 111 mg/dL [facility] Comment: eAG equivalents for HbA1c percentages: HbA1c(%) ?eAG(mg/dL) 6.0 ?126 6.5 ?140 7.0 ?154 7.5 ?169 8.0 ?183 8.5 ?197 9.0 ?212 9.5 ?226 10.0 ? 240 Limitations: The eAG calculation has not been validated on women, individuals below 18 years old and above 70 years old, and individuals with hemoglobinopathies. Additional resources are available on the ADA website. Ari DM, Carissa J, Jacqueline R, et al. ??Translating the A1C assay into estimated average glucose values. ??Diabetes Care 2008:31(8):6674-6717. Blood specimen (specimen) 09/16/2018 3:33 PM EDT 09/16/2018 3:49 PM EDT Narrative Resulting Agency Comment Spec In Lab Javad Urban MD CHEMISTRY ORDERABLES [facility] [place] [address] from Last 3 Months or Most Recently [...] capacity to make decision: Yes Care Teams Supply Chain Design Manager Relationship Specialty Start Date End Date None None PCP - General 12/01/23
--- OUTSIDE RECORDS SUMMARY | 2024-05-10 15:52 | XMS_ITS | Encounter Summary ---
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 Juan Yo MD [facility] [place] [address] [facility] [address] [place] [address] Referral ID Status Reason Start Date Expiration Date V isits Requested Visits Authorized [id number] Closed Assume Subset of Care 11/24/2023 11/23/2024 1 1 Encounter Details Date Type Department Care Team (Late st Contact Info) Description 11/23/2023 Orders Only [place] [id number] Juan Yo MD [facility] [place] [address] 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; 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
--- OUTSIDE RECORDS SUMMARY | 2024-05-10 15:52 | XMS_ITS | Encounter Summary ---
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 Discharge Disposition: Home Social History Tobacco Use Types Packs/Day Years Used Date Smoking Tobacco: Every Day Cigarettes 1 28 Smokeless Tobacco: Never Comments:Currently using kalia otine inhaler to help herself quit (11/08/18) Alcohol Use Standard Drinks/Week Comments Not Currently 0 (1 standard drink = 0.6 oz pur e alcohol) [facility] Utilities Answer Date Recorded In the past 12 months has [employer], [employer], oil, or water [employer] threatened to shut off services in your [...] any time in the past 12 m [facility], were you homeless or living in a care home (including now)? No 11/20/2023 DH IPV [...] 1 gram injection solutionIndications: 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,parts counterman current use of antibiotics Inject 2 g into the vein daily for 36 days. Estimated EOT 12/31/2023 72 each 11/25/2023 12/30/2023 sodium chloride 0.9 %, flush, (BD PosiFlush Normal Saline 0.9) SyringeIndications:O steoma of mandibular condyle,parts counterman current use of antibiotics Inject 10 mLs [...] porcine, 10 unit/mL SolutionIndications: 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,care home current use of antibiotics Inject 3 mLs [...] 2 mg Recon SolnIndications:Oste cris of mandibular condyle,parts counterman current use of antibiotics Instill reconstituted alteplase [...] to the planned procedure. Hand Hygiene: The oil burner technician did perform hand hygiene prior to line insertion. Catheter type: PICC Lot number: [id number] Procedure Technique: Skin was prepped with chlorhexidine. 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 ? Narrative [...] patients who have questions please contactthe health care assistant that requested your imaging first. Juan Yo MD IMG FLUORO ORDERABL ES documented in this encounter Visit Diagnoses Diagnosis 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 care home current use of antibiotics Encounter for long-term (current) use of antibiotics documented in this encounter Care Teams Security Operations Analyst Relationship Specialty Start Date End Date Unknown None PCP - General 11/20/23 11/30/23 documented as of this encounter
--- OUTSIDE RECORDS SUMMARY | 2024-05-10 15:52 | XMS_ITS | Encounter Summary ---
Author Organization [facility] [place] [address] Care Team Providers Care Provider Network Mgr Name Role Phone None Primary Care Provider Unavailabl e Encounter Details Date Type Department Care Team (Late st Contact Info) Description 12/22/2023 Telephone [place] [address] Juliann Patino Social History Tobacco Use Types Packs/Day Years Used Date Smoking Tobacco: Every Day Cigarettes 1 Smokeless Tobacco: Never Comments:Currently using kalia otine inhaler to help herself quit (11/08/18) Alcohol Use Standard Drinks/Week Comments Not Currently 0 (1 standard drink = 0.6 oz pur e alcohol) [facility] Utilities Answer Date Recorded In the past 12 months has th e [employer], gas, oil, or water [employer] threatened to shut off services in your [...] were you homeless or living in a retirement (including now)? No 11/20/2023 DH IPV Inpatient [...] on filedocumented in this encounter Care Teams Provider Network Mgr Relationship Specialty Start Date End Date None None PCP - General 12/01/23 documented as of this encounter
--- OUTSIDE RECORDS SUMMARY | 2024-05-10 15:52 | XMS_ITS | Encounter Summary ---
Author Organization [facility] Address [facility] [place] [address] Care Team Providers Care Dietetic Intern Name Role Phone Unknown Primary Care Provider Unavailabl e Encounter Details Date Type Department Care Team (Late st Contact Info) Description 11/23/2023 Orders [place] [address] Juan Yo MD [facility] DR [place] [address] Social History Tobacco Use Types Packs/Day Years Used Date Smoking Tobacco: Every Day Cigarettes 1 28 Smokeless Tobacco: Never Comments:Currently using kalia otine inhaler to help herself quit (11/08/18) Alcohol Use Standard Drinks/Week Comments Not Currently 0 (1 standard drink = 0.6 oz pur e alcohol) [facility] Utilities Answer Date Recorded [...] in the past 12 m [facility], were you homeless or living in a [...] on filedocumented in this encounter Care Teams Dietetic Intern Relationship Specialty Start Date End Date Unknown None PCP - General 11/20/23 11/30/23 documented as of this encounter
--- OUTSIDE RECORDS SUMMARY | 2024-05-10 15:52 | XMS_ITS | Encounter Summary ---
Author Organization [facility] [place] [address] Care Team Providers Care Hse Coordinator Name Role Phone None Primary Care Provider Unavailabl e Encounter Details Date Type Department Care Team (Late st Contact Info) Description 12/10/2023 Telephone Infectious [place] [address] Juliann Patino Social History Tobacco Use Types Packs/Day Years Used Date Smoking Tobacco: Every Day Cigarettes 1 Smokeless Tobacco: Never Comments:Currently using kalia otine inhaler to help herself quit (11/08/18) Alcohol Use Standard Drinks/Week Comments Not Currently 0 (1 standard drink = 0.6 oz pur e alcohol) [facility] Utilities Answer Date Recorded In the past 12 months has th e [employer], gas, oil, or water [employer] threatened to shut off services in your [...] any time in the past 12 m [facility], were you homeless or living in [...] on filedocumented in this encounter Care Teams Hse Coordinator Relationship Specialty Start Date End Date None None PCP - General 12/01/23 documented as of this encounter
--- OUTSIDE RECORDS SUMMARY | 2024-05-10 15:52 | XMS_ITS | Encounter Summary ---
Author Organization [facility] Address [facility] [place] [address] Care Team Providers Care Curing Finisher Name Role Phone None Primary Care Provider Unavailabl e Encounter Details Date Type Department Care Team (Late st Contact Info) Description 12/01/2023 3:38 PM EDT - 12/01/2023 5:23 PM EDT [place] [phone] Fidel Naranjo MD [facility] [place] [address] EXCISION BENIGN TUMOR OR CYST, MANDIBLE (WRVU [...] In the past 12 months has e [employer], gas, oil, or water [employer] threatened to shut off services in your [...] any time in the past 12 m [facility], were you homeless or living [...] your PICC line please call Infectious Disease: [phone]. Pain Control - use acetaminophen (Tylenol) and/or [...] get Peridex on the $4 list at [facility]. Activity: A good rule of thumb is [...] Fahrenheit -Bleeding Contact: -You can reach the [facility] clinic at [phone] for appointment questions. Follow Up: You will [...] PM Alea Bailey APRN Infectious Disease at [facility] Arrive at: Home [phone] Please do not come in for this visit. Your provider will call you at the number you provided. 12/28/2023 2:00 PM Stephenie Moya MD Infectious Disease at [facility] Arrive at: Recreation Activities Coordinator Area [phone] documented in this encounter Medications at Time [...] 1 gram injection solutionIndications: 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,half-way current use of antibiotics Inject 2 g into the vein daily for 36 days. 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 Plan will be to debride and removed anterior mandibular lesion. Fidel Naranjo MD documented in this encounter Miscellaneous Notes * Op Note - Fidel Naranjo MD - 12/01/2023 4:10 PM EDT [facility] Operative Note Patient Name: Jenae La : [id number] MR#: [id number] Case Date: 12/01/2023 Preop Diagnosis: Cystic erosive [...] Jane MD, PGY4 12/01/2023 4:58 PM Pager #[phone] I was present for the entire procedure [...] 4:29 PM EDT Excision, Benign Tumor, Mandible ([id number]) Yes 12/01/2023 3:43 PM EDT Osteomyelitis of other site, unspecified type EXCISION BENIGN TUMOR OR CYST,MANDIBLE Routine 12/01/2023 2:44 PM EDT Osteomyelitis of other site, unspecified type documented in this encounter Results * Anaerobic Culture (12/01/2023 4:30 PM EDT) Anaerobic Culture No anaerobic organisms isolated [facility] Mandible 12/01/2023 4:30 PM EDT 12/01/2023 5:55 PM EDT Comment:Right anterior camacho bular lesion Narrative Resulting Agency Comment Spec In Lab Fidel Naranjo MD MICROBIOLOGY - GENER AL ORDERABLES Performing Organization Address [facility] de Phone Number [facility] [place] [address] * Tissue culture (12/01/2023 4:30 PM EDT) Tissue Culture No growth [facility] Gram Stain Few Neutrophils seen No microorganisms seen. [facility] Mandible 12/01/2023 4:30 PM EDT 12/01/2023 5:55 PM EDT Comment:Right anterior camacho bular lesion Narrative Resulting Agency Comment Spec In Lab Fidel Naranjo MD MICROBIOLOGY - GENER AL ORDERABLES Performing Organization Address [facility] de Phone Number [facility] [place] [address] * Specimen to Pathology (12/01/2023 4:30 PM EDT) AP Specimen 12/01/2023 4:30 PM EDT 12/01/2023 4:30 PM EDT Narrative [facility] - 12/01/2023 4:30 PM EDT Specimen requisition ordered. ??Separate Pathology report to follow Fidel Naranjo MD PATHOLOGY/CYTOLOGY O RDERABLES Performing Organization Address [facility] [place] [address] * Surgical Pathology Report (12/01/2023 4:29 PM EDT) Final Diagnosis [id number] ? Location: [facility]; WA41; A The signing pathologist has (i) examined the relevant preparation(s) for the specimen(s) and (ii) rendered or confirmed the diagnosis(es). . ?Surgical Pathology DIAGNOSIS A - Right anterior mandibular lesion, excision: - Reactive gingival-type mucosa with granulation tissue. - Osteomyelitis. Electronically signed by: ?Donny Godwin MD Verified: ??12/08/2023 15:59 ??Pathologist Performed at: ??-[facility] Dept. of Pathology, [place] [address] Conveyor Belt Installer: Iman Sutton MD, AP, ??CLIA Certificate: [id number] DISCUSSION Multiple additional sections were examined. No [...] submitted in 3 cassettes labeled A1-A3. ??sns 12/08/2023 3:59 PM EDT [facility] SOFT TISSUE MASS / Unknown 12/01/2023 4:29 PM EDT 12/01/2023 4:29 PM EDT Fidel Naranjo MD PATHOLOGY/CYTOLOGY O RDERABLES [facility] [place] [phone] documented in this encounter Visit Diagnoses Diagnosis [...] Until Thu12/01/23 at 2032, Intra-Operative (Intra-Procedure), Routine 1612 (Given - Provid [...] Routine documented in this encounter Care Teams Curing Finisher Relationship Specialty Start Date End Date None None PCP - General 12/01/23 documented as of this encounter
--- OUTSIDE RECORDS SUMMARY | 2024-05-10 15:52 | XMS_ITS | Encounter Summary ---
Author Organization [facility] Address [facility] [place] [address] Care Team Providers Care Hardwood Faller Name Role Phone Unknown Primary Care Provider [...] = 0.6 oz pur e alcohol) [facility] Utilities Answer Date Recorded In the [...] any time in the past 12 m [facility], were you homeless or living in a [...] on filedocumented in this encounter Care Teams Hardwood Faller Relationship Specialty Start Date End Date Unknown None PCP - General 11/20/23 11/30/23 documented as of this encounter
--- OUTSIDE RECORDS SUMMARY | 2024-05-10 15:52 | XMS_ITS | Encounter Summary ---
Author Organization [facility] Address [facility] [place] [address] Care Team Providers Care Dental Insurance Coordinator Name Role Phone Unknown Primary Care Provider Unavailabl e Reason for Visit * Reason Onset Date Comments Follow-up 11/23/2023 F/U to schedule outpatient OPAT Encounter Details Date Type Department Care Team (Late st Contact Info) Description 11/23/2023 Telephone Infectious Disease at [facility] [place] [phone] Cindy Lizama, RN Follow-up (F/U to schedule outpatient OPAT) Social History Tobacco Use Types Packs/Day Years Used Date Smoking Tobacco: Every Day Cigarettes 1 28 Smokeless Tobacco: Never Comments:Currently using kalia otine inhaler to help herself quit (11/08/18) Alcohol Use Standard Drinks/Week Comments Not Currently 0 (1 standard drink = 0.6 oz pur e alcohol) [facility] Utilities Answer Date Recorded In the past 12 months has e [employer], gas, oil, or water [employer] threatened to shut off services in your [...] were you homeless or living in a intermediate (including now)? No 11/20/2023 DH IPV Inpatient [...] on filedocumented in this encounter Care Teams Dental Insurance Coordinator Relationship Specialty Start Date End Date Unknown None PCP - General 11/20/23 11/30/23 documented as of this encounter
--- OUTSIDE RECORDS SUMMARY | 2024-05-10 15:52 | XMS_ITS | Encounter Summary ---
Author Organization [facility] [place] [address] Care Team Providers Care Bpm Developer Name Role Phone None Primary Care Provider Unavailabl e Encounter Details Date Type Department Care Team (Late st Contact Info) Description 12/01/2023 3:44 PM EDT Anesthesia [place] [phone] Delvin Crystal MD Novak, Nathaniel, MD [facility] [place] [address] Anesthesia Record Procedure Summary Procedure Name Responsible [...] drink = 0.6 oz pur e alcohol) [facility] Utilities Answer Date Recorded In the past 12 months has [employer], gas, oil, or water [employer] threatened to shut off services in your [...] any time in the past 12 m [facility], were you homeless or living [...] Procedure Summary Date: 12/01/23 Room / Location: [address] MAIN OR Anesthesia Start: 1543 Anesthesia Stop: 1708 Procedure: EXCISION BENIGN TUMOR OR CYST, MANDIBLE (WRVU 4.91) (Midline: Face) Diagnosis: Osteomyelitis of other site, unspecified type (Erosive lesion of the mandible) Surgeons: Fidel Naranjo MD Responsible Provider: Delvin Crystal MD Anesthesia Type: general ASA Status: 3 All Anesthesia Providers: Anesthesiologist: Delvin Crystal MD Manager Data Center: Kyler Prieto DO; Sudhir Canales MD Vitals [...] 3.24) performed by Aparna Reed MD at [facility] MAIN OR ??? PRO OPEN TREATMENT METATARSAL FRACTURE EACH Bilateral 09/16/2018 ORIF METATARSAL FX, EACH (WRVU 7.44) performed by Aparna Reed MD at [facility] MAIN OR ??? PRO OPEN TREATMENT TARSOMETATARSAL JOINT DISLOCATION Right 09/16/2018 OPEN TREAMENT TARSOMETATARSAL JOINT DISLOCATION (WRVU 10.7) performed by Aparna Reed MD at [facility] MAIN OR ??? PRO OPEN TX FRACTURE GREAT TOE/PHALANX/PHALANGES Right 09/16/2018 ORIF GREAT TOE (WRVU 7.44) performed by Aparna Reed MD at [facility] MAIN OR ??? PRO PERCUT TREAT METATARSAL FX Left 09/16/2018 PERCUTANEOUS PINNING, METATARSAL FX, EA. (WRVU 3.6) performed by Aparna Reed MD at [facility] MAIN OR ??? PRO PERCUT TREAT TAR-METATAR FOOT DISLOC Right 09/16/2018 PERCUTANEOUS PINNING, TARSOMETATARSAL JOINT DISLOCATION (WRVU 5.09) performed by Aparna Reed MD at [facility] MAIN OR ??? SHOULDER ARTHROSCOPY Bilateral Social [...] Assessment: unlabored breathing Dental Assessment: (+) edentulous [facility] Assessment: IV access: Peripheral line Last Filed [...] mg documented in this encounter Care Teams Bpm Developer Relationship Specialty Start Date End Date None None PCP - General 12/01/23 documented as of this encounter
--- OUTSIDE RECORDS SUMMARY | 2024-05-10 15:52 | XMS_ITS | Encounter Summary ---
Author Organization [facility] [place] [address] Care Team Providers Care Shredded Filler Machine Wrapper Layer Name Role Phone None Primary Care Provider Unavailabl e Reason for Visit * Consultation (Routine) - Closed Specialty Diagnoses / Procedures Referred By Contac t Referred To Contact Infectious Diseases Diagnoses Osteomyelitis, unspecified site, unspecified type Ernesto Rodriguez MD [facility] [place] [address] [facility] [address] [place] [phone] Referral ID Status Reason Start Date Expiration Date V isits Requested Visits Authorized [id number] Closed Specialty Service Requested 11/21/2023 11/20/2024 1 1 Encounter Details Date Type Department Care Team (Late st Contact Info) Description 12/09/2023 1:00 PM EDT TH Visit (TeleHealth) [place] [phone] Alea Bailey APRN [facility] [place] [address] Osteomyelitis of mandible; 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; salvage determiner current use of antibiotics Social History Tobacco [...] in a prison (including now)? No 11/20/2023 IPV Inpatient Questions [...] this encounter Progress Notes * Alea Bailey, RUG BACKING STENCILER - 12/09/2023 1:00 PM EDTSummary: ID OPAT [...] - See Instructions). FLUSH PROTOCOL WITH MEDICATIONS ([facility]): Before med infusion: flush with NS [...] - See Instructions). 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
--- OUTSIDE RECORDS SUMMARY | 2024-05-10 15:52 | XMS_ITS | Encounter Summary ---
Author Organization [facility] [place] [address] Care Team Providers Care Bight Maker Name Role Phone None Primary Care Provider Unavailabl e Encounter Details Date Type Department Care Team (Late st Contact Info) Description 12/24/2023 Telephone [place] [phone] Fabiana Bates LNA Social History Tobacco Use Types Packs/Day Years Used Date Smoking Tobacco: Every Day Cigarettes 1 28 Smokeless Tobacco: Never Comments:Currently using kalia otine inhaler to help herself quit (11/08/18) Alcohol Use Standard Drinks/Week Comments Not Currently 0 (1 standard drink = 0.6 oz pur e alcohol) [facility] Utilities Answer Date Recorded In the past 12 months has th e electric, gas, oil, or water [employer] threatened to shut off services in your [...] any time in the past 12 m [facility], were you homeless or living in a usp (including now)? No 11/20/2023 DH IPV Inpatient [...] on filedocumented in this encounter Care Teams Bight Maker Relationship Specialty Start Date End Date None None PCP - General 12/01/23 documented as of this encounter
--- OUTSIDE RECORDS SUMMARY | 2024-05-10 15:52 | XMS_ITS | Encounter Summary ---
Author Organization [facility] Address [facility] [place] [address] Care Team Providers Care Art Manager Name Role Phone None Primary Care Provider Unavailabl e Encounter Details Date Type Department Care Team (Late st Contact Info) Description 12/28/2023 Notes Only Infectious Disease at [facility] [place] [address] Cindy Lizama RN Social History Tobacco Use Types Packs/Day Years Used Date Smoking Tobacco: Every Day Cigarettes 1 28 Smokeless Tobacco: Never Comments:Currently using kalia otine inhaler to help herself quit (11/08/18) Alcohol Use Standard Drinks/Week Comments Not Currently 0 (1 standard drink = 0.6 oz pur e alcohol) [facility] Utilities Answer Date Recorded In the past [...] any time in the past 12 m [facility], were you homeless or living in a group home (including now)? No 11/20/2023 DH IPV [...] pt requests that her be called at [phone] as she does not have great service where she lives. documented in this encounter Plan of Treatment Not on file documented as of this encounter Visit Diagnoses Not on filedocumented in this encounter Care Teams Art Manager Relationship Specialty Start Date End Date None None PCP - General 12/01/23 documented as of this encounter
--- OUTSIDE RECORDS SUMMARY | 2024-05-10 15:52 | XMS_ITS | Encounter Summary ---
Author Organization [facility] Address [facility] [place] [address] Care Team Providers Care Wrapper Caser Name Role Phone None Primary Care Provider Unavailabl e Encounter Details Date Type Department Care Team (Latest Contact Info) Description 12/01/2023 2:08 PM EDT - 12/01/2023 6:33 PM EDT Hospital Encounter [place] [phone] Fidel Naranjo MD [facility] [place] [address] Osteomyelitis of other site, unspecified type Discharge [...] drink = 0.6 oz pur e alcohol) [facility] Utilities Answer Date Recorded In the past 12 months has e [employer], gas, oil, or water [employer] threatened to shut off services in your [...] any time in the past 12 m [facility], were you homeless or living in a jail (including now)? No 11/20/2023 DH IPV Inpatient [...] your PICC line please call Infectious Disease: [phone]. Pain Control - use acetaminophen (Tylenol) and/or [...] get Peridex on the $4 list at [facility]. Activity: A good rule of thumb is [...] Fahrenheit -Bleeding Contact: -You can reach the [facility] clinic at [phone] for appointment questions. Follow Up: You will [...] PM Alea Bailey APRN Infectious Disease at [facility] Arrive at: Home [phone] Please do not come in for this visit. Your provider will call you at the number you provided. 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 Plan will be to debride and removed anterior mandibular lesion. Fidel Naranjo MD documented in this encounter Miscellaneous Notes * Op Note - Fidel Naranoj MD - 12/01/2023 4:10 PM EDT [facility] Operative Note Patient Name: Jenae La : [id number] MR#: [id number] Case Date: 12/01/2023 Preop Diagnosis: Cystic erosive [...] Jane MD, PGY4 12/01/2023 4:58 PM Pager #[phone] I was present for the entire procedure [...] 4:29 PM EDT Excision, Benign Tumor, Mandible ([id number]) Yes 12/01/2023 3:43 PM EDT Osteomyelitis of other site, unspecified type EXCISION BENIGN TUMOR OR CYST,MANDIBLE Routine 12/01/2023 2:44 PM EDT Osteomyelitis of other site, unspecified type documented in this encounter Results * Anaerobic Culture (12/01/2023 4:30 PM EDT) Anaerobic Culture No anaerobic organisms isolated [facility] Mandible 12/01/2023 4:30 PM EDT 12/01/2023 5:55 PM EDT Comment:Right anterior camacho bular lesion Narrative Resulting Agency Comment Spec In Lab Fidel Naranjo MD MICROBIOLOGY - GENER AL ORDERABLES Performing Organization Address [facility] de Phone Number [facility] [place] [address] * Tissue culture (12/01/2023 4:30 PM EDT) Tissue Culture No growth [facility] Gram Stain Few Neutrophils seen No microorganisms seen. [facility] Mandible 12/01/2023 4:30 PM EDT 12/01/2023 5:55 PM EDT Comment:Right anterior camacho bular lesion Narrative Resulting Agency Comment Spec In Lab Fidel Naranjo MD MICROBIOLOGY - GENER AL ORDERABLES Performing Organization Address [facility] de Phone Number [facility] [place] [address] * Specimen to Pathology (12/01/2023 4:30 PM EDT) AP Specimen 12/01/2023 4:30 PM EDT 12/01/2023 4:30 PM EDT Narrative [facility] - 12/01/2023 4:30 PM EDT Specimen requisition ordered. ??Separate Pathology report to follow Fidel Naranjo MD PATHOLOGY/CYTOLOGY O RDERABLES Performing Organization Address [facility] [place] [address] * Surgical Pathology Report (12/01/2023 4:29 PM EDT) Final Diagnosis [id number] ? Location: [facility]; IA41; A The signing pathologist has (i) examined the relevant preparation(s) for the specimen(s) and (ii) rendered or confirmed the diagnosis(es). . ?Surgical Pathology DIAGNOSIS A - Right anterior mandibular lesion, excision: - Reactive gingival-type mucosa with granulation tissue. - Osteomyelitis. Electronically signed by: ?Donny Godwin MD Verified: ??12/08/2023 15:59 ??Pathologist Performed at: ??-[facility] Dept. of Pathology, [place] [address] Encephalographer: Iman Sutton MD, AP, ??CLIA Certificate: [id number] DISCUSSION Multiple additional sections were examined. No [...] labeled A1-A3. ??sns 12/08/2023 3:59 PM EDT [facility] SOFT TISSUE MASS / Unknown 12/01/2023 4:29 PM EDT 12/01/2023 4:29 PM EDT Fidel Naranjo MD PATHOLOGY/CYTOLOGY O RDERABLES [facility] [place] [address] documented in this encounter Visit Diagnoses Diagnosis [...] Routine documented in this encounter Care Teams Wrapper Caser Relationship Specialty Start Date End Date None None PCP - General 12/01/23 documented as of this encounter
--- OUTSIDE RECORDS SUMMARY | 2024-05-10 15:52 | XMS_ITS | Encounter Summary ---
Author Organization [facility] Address [facility] [place] [address] Care Team Providers Care Haulpak Driver Name Role Phone Unknown Primary Care Provider Unavailabl e Encounter Details Date Type Department Care Team (Late st Contact Info) Description 11/24/2023 Telephone [place] [address] Andra Grady Social History Tobacco Use Types Packs/Day Years Used Date Smoking Tobacco: Every Day Cigarettes 1 Smokeless Tobacco: Never Comments:Currently using kalia otine inhaler to help herself quit (11/08/18) Alcohol Use Standard Drinks/Week Comments Not Currently 0 (1 standard drink = 0.6 oz pur e alcohol) [facility] Utilities Answer Date Recorded In the past 12 months has th e [employer], gas, oil, or water [employer] threatened to shut off services in your [...] any time in the past 12 m [facility], were you homeless or living in a detention (including now)? No 11/20/2023 DH IPV Inpatient [...] on filedocumented in this encounter Care Teams Haulpak Driver Relationship Specialty Start Date End Date Unknown None PCP - General 11/20/23 11/30/23 documented as of this encounter
--- OUTSIDE RECORDS SUMMARY | 2024-05-10 15:52 | XMS_ITS | Encounter Summary ---
Author Organization [facility] [place] [address] Care Team Providers Care Surface Water Technician Name Role Phone None Primary Care Provider Unavailabl e Encounter Details Date Type Department Care Team (Late st Contact Info) Description 12/08/2023 Telephone [place] [id number] Alea Bailey APRN [facility] [place] [address] Social History Tobacco Use Types Packs/Day Years Used Date Smoking Tobacco: Every Day Cigarettes 1 28 Smokeless Tobacco: Never Comments:Currently using kalia otine inhaler to help herself quit (11/08/18) Alcohol Use Standard Drinks/Week Comments Not Currently 0 (1 standard drink = 0.6 oz pur e alcohol) [facility] Utilities Answer Date Recorded In the [...] any time in the past 12 m [facility], were you homeless or living in [...] on filedocumented in this encounter Care Teams Surface Water Technician Relationship Specialty Start Date End Date None None PCP - General 12/01/23 documented as of this encounter
--- OUTSIDE RECORDS SUMMARY | 2024-05-10 15:52 | XMS_ITS | Encounter Summary ---
Author Organization [facility] Address [facility] [place] [address] Care Team Providers Care [place] Dental Lab Technician Name Role Phone Yamile De Leon APRN Primary Care Provider [phone] Encounter Details Date Type Department Care Team (Latest Contact Info) Description 11/19/2023 Travel Social History Tobacco Use Types Packs/Day Years Used Date Smoking Tobacco: Every Day Cigarettes 1 28 Smokeless Tobacco: Never Comments:Currently using kalia otine inhaler to help herself quit (11/08/18) Alcohol Use Standard Drinks/Week Comments Not Currently 0 (1 standard drink = 0.6 oz pur e alcohol) [facility] Utilities Answer Date Recorded In [...] time in the past 12 m [facility], were you homeless or living in [...] on filedocumented in this encounter Care Teams [place] Dental Lab Technician Relationship Specialty Start Date End Date Yamile De Leon APRN PCP - General Family Medicine 10/01/18 11/19/23 documented as of this encounter
--- OUTSIDE RECORDS SUMMARY | 2024-05-10 15:52 | XMS_ITS | Encounter Summary ---
Author Organization [facility] Address [facility] [place] [address] Care Team Providers Care Carpet Inspector Name Role Phone None Primary Care Provider Unavailabl e Encounter Details Date Type Department Care Team (Late st Contact Info) Description 12/17/2023 Interpretation Only Radiology 1 [facility] [place] [phone] Unknown None Social History Tobacco Use Types [...] any time in the past 12 m [facility], were you homeless or living in a [...] on filedocumented in this encounter Care Teams Carpet Inspector Relationship Specialty Start Date End Date None None PCP - General 12/01/23 documented as of this encounter
--- OUTSIDE RECORDS SUMMARY | 2024-05-10 15:52 | XMS_ITS | Encounter Summary ---
Author Organization [facility] Address [facility] [place] [address] Care Team Providers Care Casket Assembler Metal Name Role Phone Unknown Primary Care Provider Unavailabl e Encounter Details Date Type Department Care Team (Late st Contact Info) Description 11/25/2023 Notes Only Infectious Disease at [facility] [place] [address] Cindy Lizama RN Social History Tobacco Use Types Packs/Day Years Used Date Smoking Tobacco: Every Day Cigarettes 1 28 Smokeless Tobacco: Never Comments:Currently using kalia otine inhaler to help herself quit (11/08/18) Alcohol Use Standard Drinks/Week Comments Not Currently 0 (1 standard drink = 0.6 oz pur e alcohol) [facility] Utilities Answer Date Recorded In [...] any time in the past 12 m [facility], were you homeless or living in a retirement (including now)? No 11/20/2023 [facility] Inpatient Questions Answer Date Recorded Does Anyone [...] First infusion at [facility] Infusion Suite at [facility] Labs to be drawn at [facility] today (11/24) and at [facility] Infusion Suite each Thursday at 1300. Orders/referrals completed: PICC, OPAT, labs, therapy plan, BENZOL OPERATOR referral Referrals made to: BENZOL OPERATOR: N/A Infusion vendor: [facility] Infusion suite: [facility] ID physician and patient aware of [...] to contact. Reviewed roles and responsibilities of BENZOL OPERATOR and infusion vendor. Contact information for ID team/clinic, BENZOL OPERATOR and infusion vendor given to pt. Discussed [...] Start date: 11/19/2023 Anticipated stop date: 12/31/2023 BENZOL OPERATOR: N/A Pt scheduled to go to [facility] Infusion Suite for weekly labs and [...] F/u: Labs: Q Thursday: CBC/Diff, CMP at [facility] Labs: Q Thursday Inflammatory CRP at [facility] Attending Responsible for IV Antimicrobials: Juan Bennett MD ID F/U appts to be scheduled documented in this encounter Plan of Treatment Not on file documented as of this encounter Visit Diagnoses Not on filedocumented in this encounter Care Teams Casket Assembler Metal Relationship Specialty Start Date End Date Unknown None PCP - General 11/20/23 11/30/23 documented as of this encounter
--- OUTSIDE RECORDS SUMMARY | 2024-05-10 15:52 | XMS_ITS | Encounter Summary ---
Author Organization [facility] Address [facility] [place] [address] Care Team Providers Care Ict Trainer Name Role Phone None Primary Care Provider Unavailabl e Encounter Details Date Type Department Care Team (Late st Contact Info) Description 11/23/2023 Orders Only Infectious Disease at [facility] [place] [address] Juan Yo MD [facility] [place] [address] 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; FPC current use of antibiotics Social History Tobacco [...] In the past 12 months has e [employer], gas, oil, or water [employer] threatened to shut off services in your [...] you homeless or living in a senior living (including now)? No 11/20/2023 [facility] Inpatient [...] Guidance (IV Team) (11/25/2023 9:58 AM EDT) [employer] Signature WORKSTATION ID [id number] RAD Anatomical Region Laterality Modality N/A Radio [...] who have questions please contact the health urgent care nurse practitioner that requested your imaging first. ? Narrative [...] patients who have questions please contactthe health urgent care nurse practitioner that requested your imaging first. Juan Yo MD IMG FLUORO ORDERABL ES documented in this encounter Visit Diagnoses Diagnosis 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 exterminator current use of antibiotics Encounter for long-term (current) use of antibiotics 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 exterminator current use of antibiotics Encounter for long-term (current) use of antibiotics documented in this encounter Care Teams Ict Trainer Relationship Specialty Start Date End Date None None PCP - General 12/01/23 documented as of this encounter
--- OUTSIDE RECORDS SUMMARY | 2024-05-10 15:52 | XMS_ITS | Encounter Summary ---
Author Organization [facility] [place] [address] Care Team Providers Care Experimental Flight Test Mechanic Name Role Phone Unknown Primary Care Provider Unavailabl e Reason for Visit * Treatment/Therapy Plan Authorization (Routine) - Authorized Specialty Diagnoses / Procedures Referred By Contac t Referred To Contact Diagnoses Osteomyelitis, unspecified site, unspecified type Procedures TC CEFTRIAXONE, 250MG, INJECTION (ROCEPHIN) Juan Yo MD [facility] [place] [address] [facility] Infusion [address] [place] [id number] Referral ID Status Reason Start Date Expiration Date V isits Requested Visits Authorized [id number] Authorized 11/23/2023 11/22/2024 99 99 Encounter Details Date Type Department Care Team (Latest Contact Info) Description 11/25/2023 11:50 AM EDT - 11/25/2023 11:59 PM EDT Hospital [place] [address] Osteomyelitis, unspecified site, unspecified type Discharge Disposition: Home Social History Tobacco Use Types Packs/Day Years Used Date Smoking Tobacco: Every Day Cigarettes 06 21 Smokeless Tobacco: Never Comments:Currently using kalia otine inhaler to help herself quit (11/08/18) Alcohol Use Standard Drinks/Week Comments Not Currently 0 (1 standard drink = 0.6 oz pur e alcohol) [facility] Utilities Answer Date Recorded In the past 12 months has Numerous electric, gas, oil, or water company threatened [...] 1 gram injection solutionIndications: 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,termite inspector current use of antibiotics Inject 2 g into the vein daily for 36 days. Estimated EOT 12/31/2023 72 each 11/25/2023 12/30/2023 sodium chloride 0.9 %, flush, (BD PosiFlush Normal Saline 0.9) SyringeIndications:O steoma of mandibular condyle,detention current use of antibiotics Inject 10 mLs into the vein as needed (For Line Patency - See Instructions). FLUSH PROTOCOL WITH MEDICATIONS ([facility]): Before med infusion: flush with NS [...] 10 unit/mL SolutionIndications: 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,termite inspector current use of antibiotics Inject 3 mLs into the vein as needed (For Line Patency - See Instructions). FLUSH PROTOCOL WITH MEDICATIONS ([facility]): Before med infusion: flush with NS [...] mg Recon SolnIndications:Oste cris of mandibular condyle,termite inspector current use of antibiotics Instill reconstituted alteplase [...] actual dose given at bedside by Raquel Carreon,VICE PRESIDENT OF COMMUNICATIONS/TREATMENT: DOSE, ROUTE, START TIME, STOP TIME: cefTRIAXone 2 g Intravenous Once ### Administration times: 1214 to 1244 REACTIONS (DESCRIPTION, TIME, INTERVENTION AND EFFECTIVENESS): None. ASSESSMENT: Awake and alert - tolerated treatment well. PLAN: [facility] nurse Miguel here and provided teaching to [...] hr documented in this encounter Care Teams Experimental Flight Test Mechanic Relationship Specialty Start Date End Date Unknown None PCP - General 11/20/23 11/30/23 documented as of this encounter
--- OUTSIDE RECORDS SUMMARY | 2024-05-10 15:52 | XMS_ITS | Encounter Summary ---
[place] [address] Care Team Providers Care Quarter Folder Name Role Phone Unknown Primary Care Provider Unavailabl e Reason for Referral * Consultation (Routine) - Closed Specialty Diagnoses / Procedures Referred By Contac t Referred To Contact Infectious Diseases Diagnoses Osteomyelitis, unspecified site, unspecified type [place] [address] [facility] [address] [place] [phone] Referral ID Status Reason Start Date Expiration Date V isits Requested Visits Authorized [id number] Closed Specialty Service Requested 11/21/2023 11/20/2024 1 1 Reason for Visit * Reason Comments Dental Pain * Auth/Cert (Routine) Specialty Diagnoses / Procedures Referred By Contac t Referred To Contact Diagnoses Osteomyelitis [place] [address] [facility] Referral ID Status Reason Start Date Expiration Date Visits Re quested Visits Authorized [id number] 1 1 Encounter Details Date Type Department Care Team (Latest Contact Info) Description 11/19/2023 10:47 AM EDT - 11/21/2023 2:10 PM EDT Hospital Encounter Medical Specialites Unit Level 1 [place] [address] [place] [address] [place] [address] [place] [address] [place] [address] Hypertension, unspecified type; Osteomyelitis, jaw acute; Osteomyelitis, unspecified site, unspecified type Discharge Disposition: Home Social History Tobacco Use Types Packs/Day Years Used Date Smoking Tobacco: Every Day Cigarettes 1 Smokeless Tobacco: Never Comments:Currently using kalia otine inhaler to help herself quit (11/08/18) Alcohol Use Standard Drinks/Week Comments Not Currently 0 (1 standard drink = 0.6 oz pur e alcohol) [facility] Utilities Answer Date Recorded In the past 12 months has th e [employer], gas, oil, or water citizenmade threatened to shut off services in your [...] any time in the past 12 m [facility], were you homeless or living in a [place] health care facility (including now)? No 11/20/2023 DH IPV Inpatient [...] Erickson La Patient Age: 58 y.o. Language: Bangladeshi Race: White Ethnicity: Not nor Admit date: [...] please contact your inpatient physician through the [facility] Field Marketing Specialist . Issues afterhours and on weekends will [...] dry socket after being evaluated at an [facility] site. She had two additional antibiotics courses [...] Procedure Component Value Units Date/Time Urine culture [[id number]] Collected: 11/20/23 0722 Lab Status: Final result Specimen: First Catch Urine Updated: 11/21/23 0752 Urine Culture No growth (Less than 1,000 cfu/ml). Abscess/Wound Asp Culture, Aerobic and Anaerobic Fluid; Other [[id number]] (Abnormal) Collected: 11/19/23 164 Lab Status: Preliminary result Specimen: Fluid from Other Updated: 11/21/23 1302 Abscess/Wound Aspirate Culture [[id number]] (Abnormal) Collected: 11/19/23 164 Lab Status: Preliminary result Specimen: Fluid from Other Updated: 11/21/23 1302 Abscess/Wound Aspirate Culture -- Moderate Streptococcus milleri, anginosis group Rare normal oropharyngeal shala Gram Stain -- Many Neutrophils seen Rare Gram Positive Cocci seen Anaerobic Culture [[id number]] Collected: 11/19/23 164 Lab Status: Preliminary result Specimen: Fluid from Other Updated: 11/20/23 1417 Anaerobic Culture No anaerobic organisms isolated to date Studies: Results for orders placed or performed during the hospital encounter of 11/19/23 CT Face w Contrast (Exam End: 11/19/2023 12:37 PM) Result Value WORKSTATION ID [id number] Impression Advanced osteomyelitis of the anterior RIGHT [...] who have questions please contact the health assistant child care teacher that requested your imaging first. Electronically signed by: Marilou Perez MD, [facility] ([phone]), at 11/19/2023 1:18 PM Updated Allergies/ADRs: Allergies [...] HYDROcodone-acetaminophen 5-325 mg tablet Commonly known as: [place] ibuprofen 600 mg tablet Commonly known as: [...] of this encounter Progress Notes * Jeramie Rodriguez MD - 11/21/2023 2:02 PM EDT Hospital [...] spent >30 minutes (Day of Discharge Code 00022) involved in the final examination of the [...] ppx: enoxparin -PCP: Yamile De Leon APRN [phone] Attestation: IPI Certification I certify that I am a D-H credentialed attending provider with admitting privileges and that the patient meets or has met medical necessity to require an inpatient IPI level of care meeting a minimumof two midnights or is on the [facility] inpatient only procedure list (status C) due to: Osteomyleitis ofthe jaw. WALT SEWELL MD 11/20/2023 * Yazan Olivia A - 11/20/2023 6:28 AM EDT Images from the original note were not included. Inpatient Hospital Medicine Progress Note 11/20/2023 Patient Name: ERICKSON LA Date of : 1965 Age: 58 y.o. Hospital Admit Date: 11/19/2023 Hospital Day: 1 Inpatient Attending: No att. providers found PCP: Yamile De Leon APRN ([phone]) Chief Complaint Patient presents with Dental Pain ID: Erickson La is a 58 y.o. female w/ PMH of hypertension, chronic back pain, severe hot flashes, LORRI generally not using home CPAP, and non-insulin dependent diabetes mellitus, who was [facility] (now on Hospital Day #1) [...] Intake/Output Summary (Last 24 hours) at 11/20/2023 0659 Last data filed at 11/20/2023 0337 Gross [...] Component Value Units Date/Time Abscess/Wound Aspirate Culture [[id number]] (Abnormal) Collected: 11/19/23 1643 Lab Status: Preliminary result Specimen: Fluid from Other Updated: 11/19/232044 Gram Stain -- Many Neutrophils seen Rare Gram Positive Cocci seen Imaging/Diagnostics: Results for orders placed or performed during the hospital encounter of 11/19/23 (from the past 48 hour(s)) CT Face w Contrast (Exam End: 11/19/2023 12:37 PM) Result Value WORKSTATION ID [id number] Impression Advanced osteomyelitis of the anterior RIGHT [...] who have questions please contact the health assistant child care teacher that requested your imaging first. Electronically signed by: Marilou Perez MD, [facility] ([phone]), at 11/19/2023 1:18 PM Medications: Scheduled: cloNIDine [...] dependent diabetes mellitus , [facility] (now on Hospital Day #1) [...] Code status: Attempt Cardiopulmonary Resuscitation - Inpatient Oliviameghann Hand MS4 11/20/23 * Chen Hickman LPN - 11/20/2023 6:27 AM EDT Patient is AOX4. Just arrived on 1C @ 0306. VSS on RA. BG checked 108. Meds given as ordered. Pain meds given once shift stacker. IV ABX tolerates without any complaints. Pt is aware a UA is needed, a hat is in place. Bed in low position, call jane and personal things within reach. Will continue to monitor. Will make RN and MD aware of any changes. * Paulino Li RN - 11/20/2023 3:46 AM EDT 0300- pt arrived to [facility] from ED. Pt oriented to room [...] dry socket after being evaluated at an [facility] site. She had two additional antibiotics courses [...] 11/19/2023 12:37 PM) Result Value WORKSTATION ID [id number] Impression Advanced osteomyelitis of the anterior RIGHT [...] who have questions please contact the health assistant child care teacher that requested your imaging first. Electronically signed by: Marilou Perez MD, [facility] ([phone]), at 11/19/2023 1:18 PM Assessment & Plan [...] ppx: enoxparin - PCP: Yamile De Leon, MOBILE ELECTRONICS INSTALLER [phone] Misael Joaquin Pager #[phone] [facility] Medicine documented in this encounter ED [...] abx. She was then seen by an superintendent custodian janitor who removed all of her teeth on [...] week she was instructed to go to [facility] ER to see an oral surgeon. She [...] who have questions please contact the health assistant child care teacher that requested your imaging first. Electronically signed by: Marilou Perez MD, [facility] ([phone]), at 11/19/2023 1:18 PM Procedures Assessment and [...] as Appropriate) Goal: Patient-Specific Goal (Individualized) 11/21/2023 141 by Jamee Chi RN Outcome: [...] dry socket after being evaluated at an [facility] care site. She had two [...] 3.24) performed by Aparna Reed MD at [facility] MA[facility] OR PRO OPEN TREATMENT METATARSAL FRACTURE EACH Bilateral 09/16/2018 ORIF METATARSAL FX, EACH (WRVU 7.44) performed by Aparna Reed MD at [facility] MA[facility] OR PRO OPEN TREATMENT TARSOMETATARSAL JOINT DISLOCATION Right 09/16/2018 OPEN TREAMENT TARSOMETATARSAL JOINT DISLOCATION (WRVU 10.7) performed by Aparna Reed MD at [facility] MA[facility] OR PRO OPEN TX FRACTURE GREAT TOE/PHALANX/PHALANGES Right 09/16/2018 ORIF GREAT TOE (WRVU 7.44) performed by Aparna Reed MD at [facility] OR PRO PERCUT TREAT METATARSAL FX Left 09/16/2018 PERCUTANEOUS PINNING, METATARSAL FX, EA. (WRVU 3.6) performed by Aparna Reed MD at [facility] OR PRO PERCUT TREAT TAR-METATAR FOOT DISLOC Right 09/16/2018 PERCUTANEOUS PINNING, TARSOMETATARSAL JOINT DISLOCATION (WRVU 5.09) performed by Aparna Reed MD at [facility] OR SHOULDER ARTHROSCOPY Bilateral Medications: Scheduled [...] Moya MD, MPH Fellow, Infectious Disease Pager: [phone] Epic Chat 11/20/2023 Associated attestation - Juan [...] would be willing to assist, and her [id number] is nearby and available as well. She [...] surrogate would be surrogate decision maker per [place] decision making law. (Only good for 180 days) Any patient receiving care in [place] must abide by [place] law. The hierarchy for surrogate decision making [...] (i) The agent with financial power of director trading or a conservator appointed in accordance with [...] were you homeless or living in a [place] health [place] facility (including now)?: No In the past 12 months has the [employer], gas, oil, or water citizenmade threatened to shut off services in your [...] (in the winter) Home Address confirmed as: [address] [place] [address] Social & Family Supports: All names listed below confirmed with patient as current and correct Extended Emergency Contact Information Primary Emergency Contact: Taylor La Address: [address] [place] [address] of [place] Mobile Relation: Spouse Secondary Emergency [...] Yes ; Prescription Coverage: Yes Preferred Pharmacy: [facility] [address] [address] Status: Patient is a : No Primary Care Provider confirmed: Unknown None-goes to [facility] but is unsure of providers name Patient/Caregiver Goals of Treatment: to return home [place] once plan is determined. She doesnt want to hold a bed for someone else who may need it Potential Needs for Transition of Care: home health care, outpatient care Agency Referrals: I have met with the patient to: discuss discharge planning needs. provide the [facility], Office of Care Management letter from the Cake Wringer pertaining to rehab referrals. provide a letter describing our affiliations within the [facility] and educate about their right to choose where referrals are sent. provide a list of Home Health Agencies / Durable Medical Equipment vendors which serve their preferred geographic area. provided patient with [facility] Star Quality Rating handout. They have requested referrals to: [facility] [address] [place] [address] [place], [place] [address], [place] [id number] [place] [address] or Note routed to a Shale Planer Operator Helper who will communicate referrals to facilities and [...] Care - Paulino Li RN - 11/20/2023 6:07 AM EDT OUTCOME EVALUATION NOTE: OUTCOME SUMMARY: Chen Hickman LPN provided most of pt care. Please see MEDICAL AFFAIRS MANAGER's note for further shift details. Additionally, Pt [...] La Age/Sex: 58 y.o. female ENT Attending: [facility] Day: 2 History of Present Illness [...] several dental caries. This was performed in [facility]. Since extractions she has had intermittent swelling and purulent drainage from her extraction site. She was started on now ?7 courses of antibiotics since July with intermittent improvement in symptoms which unfortunately have returned. She was again started on Clindamycin last and notessome initial improvement but this has progressed. She was told earlier this week [facility]. Patient [...] 3.24) performed by Aparna Reed MD at [facility] OR PRO OPEN TREATMENT METATARSAL FRACTURE EACH Bilateral 09/16/2018 ORIF METATARSAL FX, EACH (WRVU 7.44) performed by Aparna Reed MD at [facility] MA[facility] OR PRO OPEN TREATMENT TARSOMETATARSAL JOINT DISLOCATION Right 09/16/2018 OPEN TREAMENT TARSOMETATARSAL JOINT DISLOCATION (WRVU 10.7) performed by Aparna Reed MD at [facility] MA[facility] OR PRO OPEN TX FRACTURE GREAT TOE/PHALANX/PHALANGES Right 09/16/2018 ORIF GREAT TOE (WRVU 7.44) performed by Aparna Reed MD at [facility] OR PRO PERCUT TREAT METATARSAL FX Left 09/16/2018 PERCUTANEOUS PINNING, METATARSAL FX, EA. (WRVU 3.6) performed by Aparna Reed MD at [facility] OR PRO PERCUT TREAT TAR-METATAR FOOT DISLOC Right 09/16/2018 PERCUTANEOUS PINNING, TARSOMETATARSAL JOINT DISLOCATION (WRVU 5.09) performed by Aparna Reed MD at [facility] OR SHOULDER ARTHROSCOPY Bilateral Medications & [...] Tape, occlusive adhesive Social History [place] in [place] [address] Social History Socioeconomic History Marital status: Spouse [...] on 11/19/23 Source Information Dariana Jane MD [facility] Ed Document History Procedures - Labs [...] Jane MD, PGY4 11/20/2023 3:54 PM Pager #[phone] ENT Team Pager: [phone] documented in this encounter Plan of Treatment [...] OF CARE TEST ORDERABLES [facility] [place] [address] * POCT Glucose (11/21/2023 6:29 AM EDT) Pathologist [facility] Glucose, POC 120 65 - 199 mg/dL [facility] Comment: Supplemental ranges: <140 mg/dL before meals <180 mg/dL all other times of the day Blood 11/21/2023 6:29 AM EDT 11/21/2023 6:29 AM EDT Walt Sewell MD POINT OF CARE TEST O RDERABLES [facility] [place] [address] * Differential, Automated (11/21/2023 5:25 AM EDT) [facility] Neutrophil % 49.4 % [facility] Neutrophil Absolute 3.46 1.70 - 6.10 x10(3)/[facility] LABORATORY Lymph % 41.6 % [facility] Lymphocytes Abs 2.9 0.9 - 3.2 x10(3)/[facility] LABORATORY Monocyte % 7.1 % [facility] Monocyte Abs 0.5 0.3 - 0.9 x10(3)/[facility] LABORATORY Eos % 1.4 % [facility] Eosinophils Abs 0.1 0.0 - 0.4 x10(3)/[facility] LABORATORY Basophil % 0.4 % [facility] Baso Absolute 0.0 0.0 - 0.1 x10(3)/[facility] LABORATORY Immature Gran % 0.10 % [facility] Comment: Immature granulocytes(IG's)percentage and absolute count will include metamyelocytes, myelocytes, and promyelocytes. Blood smears from CBCs yielding IG's will be scanned manually for concordance. If this scan disagrees with the automated IG or if promyelocytes are noted, a manual differential will be performed. Immature Gran Absolute 0.01 0.00 - 0.04 x10(3)/[facility] LABORATORY Blood 11/21/2023 5:25 AM EDT 11/21/2023 5:32 AM EDT Narrative Resulting Agency Comment Spec In Lab Misael Joaquin MD HEMATOLOGY ORDERABLE S [facility] [place] [address] * (ABNORMAL) Hemogram (11/21/2023 5:25 AM EDT) [...] [facility] NRBC% auto 0.0 % [facility] NRBC Absolute 0.000 0.000 - 0.000 x10(3)/mc L [facility] Blood 11/21/2023 5:25 AM EDT 11/21/2023 5:32 AM EDT Narrative Resulting Agency Comment Spec In Lab Misael Joaquin MD HEMATOLOGY ORDERABLE S [facility] [place] [address] * (ABNORMAL) Basic Metabolic Panel (non-fasting) (11/21/2023 5:25 AM EDT) Glucose 113 65 - 199 mg/dL [facility] [...] Joaquin MD CHEMISTRY ORDERABLES Performing Organization Address City/[facility]/ZIP Co de Phone Number [facility] [place] [address] * POCT Glucose (11/20/2023 9:45 PM EDT) Glucose, POC 131 65 - 199 mg/dL [facility] Comment: Supplemental ranges: <140 mg/dL before meals <180 mg/dL all other times of the day Blood 11/20/2023 9:45 PM EDT 11/20/2023 9:45 PM EDT Walt Sewell MD POINT OF CARE TEST O RDERABLES Performing Organization Address [facility]/ZIP Co de Phone Number [facility] [place] [address] * POCT Glucose (11/20/2023 7:01 PM EDT) Glucose, POC 162 65 - 199 mg/dL [facility] Comment: Supplemental ranges: <140 mg/dL before meals <180 mg/dL all other times of the day Blood 11/20/2023 7:01 PM EDT 11/20/2023 7:01 PM EDT Walt Sewell MD POINT OF CARE TEST O JONY Performing Organization Address City/[facility]/ZIP Co de Phone Number [facility] [place] [address] * (ABNORMAL) POCT Glucose (11/20/2023 4:44 PM EDT) Glucose, POC 262(H) 65 - 199 mg/dL [facility] Comment: Supplemental ranges: <140 mg/dL before meals <180 mg/dL all other times of the day Blood 11/20/2023 4:44 PM EDT 11/20/2023 4:44 PM EDT Walt Sewell MD POINT OF CARE TEST O RDERABLES [facility] [place] [address] * ECHO COMPLETE (11/20/2023 4:03 PM EDT) Anatomical Region Laterality Modality Cardiac Other 11/20/2023 3:17 PM EDT Narrative 11/20/2023 4:13 PM EDT [address] [place] [id number] ? Echocardiogram Report Name: ERICKSON LA Jessica ?Study Date: 11/20/2023 03:17 PM ? Patient Location: [id number] A : 1965 ? Height: 155 cm ? Account: [id number] Age: 58 yrs ? Weight: 70 kg Gender: Female ?BSA: 1.7 m2 Ordering Physician: WALT SEWELL Referring Physician: NONE Performed By: Kiana Andrade RDCS Reason For Study: Osteomyelitis Exam Location: [facility]. Interpretation Summary 1. Left ventricle is of [...] No prior study available for comparison. Procedure Complete-[id number]. Satisfactory quality. Left Ventricle Left ventricle is [...] Note Michael Acharya MD - 11/20/2023 [address] [place] [address] Echocardiogram Report Name: ERICKSON LA Jessica Study Date: 403:17 PM Patient Location: [id number] A : 1965 Height: 155 cm Account: [id number] Age: 58 yrs Weight: 70 kg Gender: Female BSA: 1.7 m2 Ordering Physician: WALT SEWELL Referring Physician: NONE Performed By: Kiana Andrade RDCS Reason For Study: Osteomyelitis Exam Location: [facility]. Interpretation Summary 1. Left ventricle is of [...] No prior study available for comparison. Procedure Complete-[id number]. Satisfactory quality. Left Ventricle Left ventricle is [...] MD ECHO ORDERABLES * MRSA PCR Screen ([facility]/CGP/APD/[facility]H) (11/20/2023 12:27 PM EDT) MRSA PCR Negative Negative [facility] MRSA (Interp) Methicillin-resist ant Staphylococcus aureus (MRSA) is NOT DETECTED The MRSA target DNA sequences (mec and SCC) were not detected within the acceptable ranges using the Xpert MRSA NxG on the GeneXpert Dx System (baixing.com). This suggests the absence of MRSA in the patient specimen submitted for testing. This test is cleared by the U.S. Food and Drug Administration for clinical use and its performance characteristics have been verified by the [facility] Gen[facility] Laboratory at [facility]. This result does not rule out [...] Sewell MD MOLECULAR ORDERABLES [facility] [place] [address] * Blood culture (11/20/2023 11:49 AM EDT) Blood Culture No growth at 5 days. [facility] Blood STRUCTURE OF RIGHT HAND / Unknown 11/20/2023 11:49 AM EDT 11/20/2023 12:15 PM EDT Narrative Resulting Agency Comment Spec In Lab Walt Sewell MD MICROBIOLOGY - BLOOD ORDERABLES Performing Organization Address City/[facility]/ZIP Co de Phone Number [facility] [place] [address] * POCT Glucose (11/20/2023 11:36 AM EDT) Glucose, POC 132 65 - 199 mg/dL [facility] Comment: Supplemental ranges: <140 mg/dL before meals <180 mg/dL all other times of the day Blood 11/20/2023 11:3 6 AM EDT 11/20/2023 11:36 AM EDT Walt Sewell MD POINT OF CARE TEST O RDERABLES Performing Organization Address [facility] Co de Phone Number [facility] [place] [address] * Urine culture (11/20/2023 7:22 AM EDT) Pathologist [facility] Urine Culture No growth (Less than 1,000 cfu/ml). [facility] First Catch Urine 11/20/2023 7:22 AM EDT 11/20/2023 9:09 AM EDT Narrative Resulting Agency Comment Spec In Lab Sherri Esquivel MD MICROBIOLOGY - GENE RAL ORDERABLES Performing Organization Address City/[facility]/ZIP Co de Phone Number [facility] [place] [address] * (ABNORMAL) Urinalysis Microscopic Exam (11/20/2023 7:22 AM EDT) RBC, Urine >100(H) 0 - 4 /HPF [facility] WBC, Urine 25(H) 0 - 5 /HPF [facility] Squamous Epithelial Cells Raw Data, Urine 2 <=4 /HPF [facility] Hyaline Casts, Urine 2 0 - 2 /LPF [facility] First Catch Urine 11/20/2023 7:22 AM EDT 11/20/2023 7:54 AM EDT Narrative Resulting Agency Comment Spec In Lab Sherri Esquivel MD URINE ORDERABLES Performing Organization Address City/[facility]/ZIP Co de Phone Number [facility] [place] [address] * (ABNORMAL) Urinalysis with reflex Culture (11/20/2023 [...] HOSPITAL LABORATORY Leukocytes, Urine Dipstick Small(A) Negative [facility] LABORATORY Appearance, Urine Dipstick Clear Clear [facility] Specific [place] Urine Automated 1.020 1.005 - 1.030 [facility] Color, Urine Dipstick Bath(A) Yellow [facility] Reflex to Culture Yes [facility] First Catch Urine 11/20/2023 7:22 AM EDT 11/20/2023 7:54 AM EDT Narrative Resulting Agency Comment Spec In Lab Sherri Esquivel MD URINE ORDERABLES Performing Organization Address City/[facility]/ZIP Co de Phone Number [facility] [place] [address] * POCT Glucose (11/20/2023 6:21 AM EDT) Glucose, POC 100 65 - 199 mg/dL [facility] Comment: Supplemental ranges: <140 mg/dL before meals <180 mg/dL all other times of the day Blood 11/20/2023 6:21 AM EDT 11/20/2023 6:21 AM EDT Chiquita Azul MD POINT OF CARE TEST ORDERABLES Performing Organization Address City/[facility]/ZIP Co de Phone Number [facility] [place] [address] * POCT Glucose (11/20/2023 3:10 AM EDT) Glucose, POC 108 65 - 199 mg/dL [facility] Comment: Supplemental ranges: <140 mg/dL before meals <180 mg/dL all other times of the day Blood 11/20/2023 3:10 AM EDT 11/20/2023 3:10 AM EDT Chiquita Azul MD POINT OF CARE TEST ORDERABLES Performing Organization Address City/[facility]/ZIP Co de Phone Number [facility] [place] [address] * (ABNORMAL) Differential, Automated (11/20/2023 1:42 AM EDT) Neutrophil % 51.9 % [facility] Neutrophil Absolute 4.48 1.70 - 6.10 x10(3)/mc L [facility] Lymph % 38.6 % [facility] Lymphocytes Abs 3.3(H) 0.9 - 3.2 x10(3)/mc L [facility] Monocyte % 7.5 % [facility] Monocyte Abs 0.6 0.3 - 0.9 x10(3)/mc L [facility] Eos % 1.4 % [facility] Eosinophils Abs 0.1 0.0 - 0.4 x10(3)/ L [facility] Basophil % 0.3 % [facility] Baso Absolute 0.0 0.0 - 0.1 x10(3)/[facility] Immature Gran % 0.30 % [facility] Comment: Immature granulocytes(IG's)percentage and absolute count will include metamyelocytes, myelocytes, and promyelocytes. Blood smears from CBCs yielding IG's will be scanned manually for concordance. If this scan disagrees with the automated IG or if promyelocytes are noted, a manual differential will be performed. Immature Gran Absolute 0.03 0.00 - 0.04 x10(3)/[facility] Blood 11/20/2023 1:42 AM EDT 11/20/2023 1:48 AM EDT Narrative Resulting Agency Comment Spec In Lab Misael Joaquin MD HEMATOLOGY ORDERABLE S [facility] [place] [address] * (ABNORMAL) Hemogram (11/20/2023 1:42 AM EDT) White Blood Cell 8.6 4.0 - 9.5 x10(3)/ L [facility] Red Blood Cell 3.46(L) 4.00 - 5.21 x10(6)/ L [facility] Hemoglobin 10.9(L) 11.7 - 15.5 g/dL [facility] Hematocrit 32.8(L) 35.7 - 45.8 % [facility] Mean Cell Volume 94.8(H) 82.6 - 94.4 fL [facility] Mean Cell Hemoglobin 31.5 27.1 - 32.0 pg [facility] Mean Cell Hemoglobin Concentration 33.2 31.7 - 35.0 g/dL [facility] Platelet 260 145 - 357 x10(3)/[facility] RDW Standard Deviation 43.5 37.0 - 46.0 fL [facility] RDW coefficient of variation 12.5 11.5 - 14.1 % [facility] Mean Platelet Volume 9.9 7.6 - 12.9 [facility] NRBC% auto 0.0 % [facility] NRBC Absolute 0.000 0.000 - 0.000 x10(3)/mc L [facility] Blood 11/20/2023 1:42 AM EDT 11/20/2023 1:48 AM EDT Narrative Resulting Agency Comment Spec In Lab Misael Joaquin MD HEMATOLOGY ORDERABLE S [facility] [place] [address] * (ABNORMAL) Basic Metabolic Panel (non-fasting) (11/20/2023 1:42 AM EDT) Glucose 76 65 - 199 mg/dL [facility] Comment:Diabetes: >=200 mg/d L plus symptoms Blood Urea Nitrogen 12 8 - 18 mg/dL [facility] Creatinine 0.83 0.70 - 1.20 mg/dL [facility] Sodium 142 135 - 145 mmol/L [facility] Potassium 3.2(L) 3.5 - 5.0 mmol/L [facility] Comment: Please note: ??Patients with WBC >100,000 may have falsely elevated Potassium levels. ??For accurate Potassium quantification in these patients send serum separator tube (gold top) for subsequent determinations. ??Contact the Clinical Chemistry Laboratory if there are any questions. Chloride 113(H) 98 - 107 mmol/L [facility] Carbon Dioxide 18(L) 22 - 31 mmol/L [facility] Anion Gap 11 5 - 15 mmol/L [facility] Calcium 7.9(L) 8.5 - 10.5 mg/dL [facility] Comment:result rechecked-HN Est Glomerular Filtration Rate 83 >=60 mL/min/1. 73 m?? [facility] [...] Joaquin MD CHEMISTRY ORDERABLES Performing Organization Address [facility]/ZIP Co de Phone Number [facility] [place] [address] * POCT Glucose (11/19/2023 7:19 PM EDT) Glucose, POC 92 65 - 199 mg/dL [facility] Comment: Supplemental ranges: <140 mg/dL before meals <180 mg/dL all other times of the day Blood 11/19/2023 7:19 PM EDT 11/19/2023 7:19 PM EDT Miguel Benson MD POINT OF CARE TEST O RDERABLES [facility] [place] [address] * (ABNORMAL) Anaerobic Culture (11/19/2023 4:43 PM EDT) Anaerobic Culture Many Parvimonas micra (Peptostreptoc occus micros)(A) [facility] Organism Parvimonas micra (Peptostreptoc occus micros)(A) [facility] Fluid TOPOGRAPHY UNKNOWN / Unknown 11/19/2023 4:43 PM EDT 11/19/2023 7:14 PM EDT Comment:Mandible Narrative Resulting Agency Comment Spec In Lab Dariana Jane MD MICROBIOLOGY - GENER AL ORDERABLES Performing Organization Address [facility] de Phone Number [facility] [place] [address] * (ABNORMAL) Abscess/Wound Aspirate Culture (11/19/2023 4:43 [...] - GENER AL ORDERABLES Performing Organization Address [facility] de Phone Number [facility] [place] [address] * CT Face w Contrast (11/19/2023 12:37 PM EDT) WORKSTATION ID [id number] RAD Anatomical Region Laterality Modality Head Computed [...] who have questions please contact the health assistant child care teacher that requested your imaging first. ? Electronically signed by: Marilou Perez MD, [facility] ([phone]), at 11/19/2023 1:18 PM Narrative 11/19/2023 1:18 [...] patients who have questions please contactthe health assistant child care teacher that requested your imaging first. Titus South MD IMG CT ORDERABLES * Gold Tube HOLD (11/19/2023 11:15 AM EDT) Gold Hold Sample in lab. [facility] Blood Venous Draw / Unknown 11/19/2023 11:15 AM EDT 11/19/2023 11:26 AM EDT Osorio CARR CHEMISTRY ORDERABLES Performing Organization Address [facility]/ZIP Co de Phone Number [facility] [place] [address] * Blue Tube HOLD (11/19/2023 11:15 AM EDT) Blue Hold Sample in lab. [facility] Blood Venous Draw / Unknown 11/19/2023 11:15 AM EDT 11/19/2023 11:26 AM EDT Osorio CARR HEMATOLOGY ORDERABLE S Performing Organization Address City/[facility]/ZIP Co de Phone Number [facility] [place] [address] * (ABNORMAL) Differential, Automated (11/19/2023 11:15 AM EDT) Neutrophil % 74.6 % [facility] Neutrophil Absolute 11.11(H) 1.70 - 6.10 x10(3)/[facility] Lymph % 16.8 % [facility] Lymphocytes Abs 2.5 0.9 - 3.2 x10(3)/[facility] Monocyte % 7.0 % [facility] Monocyte Abs 1.0(H) 0.3 - 0.9 x10(3)/[facility] Eos % 0.9 % [facility] Eosinophils Abs 0.1 0.0 - 0.4 x10(3)/[facility] Basophil % 0.3 % [facility] Baso Absolute 0.0 0.0 - 0.1 x10(3)/[facility] Immature Gran % 0.40 % [facility] Comment: Immature granulocytes(IG's)percentage and absolute count will include metamyelocytes, myelocytes, and promyelocytes. Blood smears from CBCs yielding IG's will be scanned manually for concordance. If this scan disagrees with the automated IG or if promyelocytes are noted, a manual differential will be performed. Immature Gran Absolute 0.06(H) 0.00 - 0.04 x10(3)/[facility] Blood 11/19/2023 11:1 5 AM EDT 11/19/2023 11:25 AM EDT Narrative Resulting Agency Comment Spec In Lab Osorio CARR HEMATOLOGY ORDERABLE S [facility] [place] [address] * (ABNORMAL) Hemogram (11/19/2023 11:15 AM EDT) White Blood Cell 14.9(H) 4.0 - 9.5 x10(3)/[facility] Red Blood Cell 4.03 4.00 - 5.21 x10(6)/[facility] Hemoglobin 12.8 11.7 - 15.5 g/dL [facility] Hematocrit 38.7 35.7 - 45.8 % [facility] Mean Cell Volume 96.0(H) 82.6 - 94.4 fL [facility] Mean Cell Hemoglobin 31.8 27.1 - 32.0 pg [facility] Mean Cell Hemoglobin Concentration 33.1 31.7 - 35.0 g/dL [facility] Platelet 326 145 - 357 x10(3)/mc L [facility] RDW Standard Deviation 44.2 37.0 - 46.0 [facility] RDW coefficient of variation 12.5 11.5 - 14.1 % [facility] Mean Platelet Volume 10.0 7.6 - 12.9 [facility] NRBC% auto 0.0 % [facility] NRBC Absolute 0.000 0.000 - 0.000 x10(3)/mc L [facility] Blood 11/19/2023 11:1 5 AM EDT 11/19/2023 11:25 AM EDT Narrative Resulting Agency Comment Spec In Lab Osorio CARR HEMATOLOGY ORDERABLE S [facility] [place] [address] * (ABNORMAL) Basic Metabolic Panel (non-fasting) (11/19/2023 11:15 AM EDT) Glucose 140 65 - 199 mg/dL [facility] Comment:Diabetes: >=200 mg/d L plus symptoms Blood Urea Nitrogen 18 8 - 18 mg/dL [facility] Creatinine 0.90 0.70 - 1.20 mg/dL [facility] Sodium 143 135 - 145 mmol/L [facility] Potassium 3.8 3.5 - 5.0 mmol/L [facility] Comment: Please note: ??Patients with WBC >100,000 may have falsely elevated Potassium levels. ??For accurate Potassium quantification in these patients send serum separator tube (gold top) for subsequent determinations. ??Contact the Clinical Chemistry Laboratory if there are any questions. Chloride 111(H) 98 - 107 mmol/L [facility] Carbon Dioxide 20(L) 22 - 31 mmol/L [facility] Anion Gap 12 5 - 15 mmol/L [facility] Calcium 9.5 8.5 - 10.5 mg/dL [facility] Est Glomerular Filtration Rate 75 >=60 mL/min/1. 73 m?? [facility] [...] Lab Titus South MD CHEMISTRY ORDERAB LES [facility] [place] [address] documented in this encounter Visit Diagnoses Diagnosis [...] over 4 Hours, Warning Vesicant/Irritant Medication Per supervisor sewer system labeling, do not administer or Y-site with [...] over 0.5 Hours, Warning Vesicant/Irritant Medication Per supervisor sewer system labeling, do not administer or Y-site with lactated ringers., Indication for (Active or Suspected): Bone/Joint New Bag 11/19/2023 2:53 PM EDT 4.5 g 200 mL/h r polyethylene glycoL (Miralax) packet 17 g 17 g, Oral, DAILY PRN, Starting on Glroia 11/19/23 at 1937, Until 11/21/23 at 1611, [...] 0837 (Given - Provider: Rach Alcantara LPN) 08 (Given - Provider: Jamee Chi, JULI) doxepin [...] Alcantara LPN) 826 (Given - Provider: Jamee Chi RN) famotidine (Pepcid) tablet 20 mg 20 mg, [...] 1418, STAT 1453 (Given - Provider: Renee Saundesr LPN) losartan (Cozaar) tablet 100 mg 100 [...] over 4 Hours, Warning Vesicant/Irritant Medication Per supervisor sewer system labeling, do not administer or Y-site with [...] over 0.5 Hours, Warning Vesicant/Irritant Medication Per supervisor sewer system labeling, do not administer or Y-site with lactated ringers., Indication for (Active or Suspected): Bone/Joint 1453 (New Bag - Provider: Renee Saunders LPN)1523 (Stopped - Provider: Riddhi Babcock RN) [...] RN) 1133 (Given - Provider: Rach Alcantara LPN)2148 (Given - Provider: Paulino Li RN) 1046 (Given - Provider: Jamee Chi, JULI) PRN Medication Order 11/19/2023 11/20/2023 11/21/2023 baclofen (Lioresal) tablet 10 mg 10 mg, Oral, 3 TIMES DAILY PRN, Starting on Thu11/19/23 at 2101, Until 11/21/23 at 1611, Muscle [...] Intravenous, EVERY 15 MIN PRN, Starting on Lgoria 11/19/23 at 1937, Until 11/21/23 at 1611, [...] ONCE PRN, 1 dose, Starting on Gloria 6/27/24 at 1937, Until 11/21/23 at 1611, Constipation, [...] 17 g, Oral, DAILY PRN, Starting on Thu11/19/23 at 1937, Until 11/21/23 at 1611, Constipation, Give if no BM within last 24 hr. Give concomitantly with any scheduled bowel medications ordered. , Routine And bisacodyL (Dulcolax) suppository 10 mgJump to med 10 mg, Rectal, DAILY PRN, Starting on Thu11/19/23 at 1937, Until 11/21/23 at 1611, Constipation, [...] Routine documented in this encounter Care Teams Quarter Folder Relationship Specialty Start Date End Date Unknown None PCP - General 11/20/23 11/30/23 documented as of this encounter
--- OUTSIDE RECORDS SUMMARY | 2024-05-10 15:52 | XMS_ITS | Encounter Summary ---
Author Organization [facility] Address [facility] [place] [address] Care Team Providers Care Engine Inspector Name Role Phone Unknown Primary Care Provider Unavailabl e Encounter Details Date Type Department Care Team (Late st Contact Info) Description 11/23/2023 Orders [place] [phone] Dariana Jane MD [facility] [place] [address] Osteomyelitis of other site, unspecified type Social History Tobacco Use Types Packs/Day Years Used Date Smoking Tobacco: Every Day Cigarettes 1 28 Smokeless Tobacco: Never Comments:Currently using klaia otine inhaler to help herself quit (11/08/18) Alcohol Use Standard Drinks/Week Comments Not Currently 0 (1 standard drink = 0.6 oz pur e alcohol) [facility] Utilities Answer Date Recorded In the past 12 months has e [employer], gas, oil, or water [employer] threatened to shut off services in your [...] any time in the past 12 m [facility], were you homeless or [...] type documented in this encounter Care Teams Engine Inspector Relationship Specialty Start Date End Date Unknown None PCP - General 11/20/23 11/30/23 documented as of this encounter
--- OUTSIDE RECORDS SUMMARY | 2024-05-10 15:52 | XMS_ITS | Encounter Summary ---
Author Organization [facility] Address [facility] [place] [address] Care Team Providers Care Exerciser Name Role Phone None Primary Care Provider Unavailabl e Encounter Details Date Type Department Care Team (Late st Contact Info) Description 12/17/2023 8:00 AM EDT Office Visit [place] [phone] Delvin Church PA [facility] [place] [address] Osteomyelitis, unspecified site, unspecified type Social History Tobacco Use Types Packs/Day Years Used Date Smoking Tobacco: Every Day Cigarettes 1 28 Smokeless Tobacco: Never Comments:Currently using kalia otine inhaler to help herself quit (11/08/18) Alcohol Use Standard Drinks/Week Comments Not Currently 0 (1 standard drink = 0.6 oz pur e alcohol) [facility] Utilities Answer Date Recorded In the past 12 months has e [employer], gas, oil, or water [employer] threatened to shut off services in your [...] time in the past 12 m [facility], were you homeless or living in [...] 58 y.o. female History of Present Illness Jenea La is a 58 y.o. female seen [...] type documented in this encounter Care Teams Exerciser Relationship Specialty Start Date End Date None None PCP - General 12/01/23 documented as of this encounter
--- OUTSIDE RECORDS SUMMARY | 2024-05-10 15:52 | XMS_ITS | Encounter Summary ---
Author Organization [facility] Address [facility] [place] [address] Care Team Providers Care Infrastructure Administrator Name Role Phone None Primary Care Provider [...] drink = 0.6 oz pur e alcohol) [facility] Utilities Answer Date Recorded In [...] any time in the past 12 m [facility], were you homeless or living in a fpc (including now)? No 11/20/2023 [facility] Inpatient [...] on filedocumented in this encounter Care Teams Infrastructure Administrator Relationship Specialty Start Date End Date None None PCP - General 12/01/23 documented as of this encounter
--- OUTSIDE RECORDS SUMMARY | 2024-05-10 15:52 | XMS_ITS | Encounter Summary ---
Author Organization [facility] Address [facility] [place] [address] Care Team Providers Care Restaurant Area Manager Name Role Phone Unknown Primary Care Provider Unavailabl e Encounter Details Date Type Department Care Team (Late st Contact Info) Description 11/23/2023 Notes Only Infectious Disease [facility] [place] [address] Stephenie Moya MD [facility] [place] [address] Social History Tobacco Use Types Packs/Day Years [...] on filedocumented in this encounter Care Teams Restaurant Area Manager Relationship Specialty Start Date End Date Unknown None PCP - General 11/20/23 11/30/23 documented as of this encounter
--- OUTSIDE RECORDS SUMMARY | 2024-05-10 15:53 | XMS_ITS | Encounter Summary ---
Author Organization [facility] [place] [address] Care Team Providers Care Recovery Room Rn Name Role Phone Yamile De Leon CARLOS Primary Care Provider [phone] Reason for Referral * Consultation (Routine) - Closed Specialty Diagnoses / Procedures Referred By Bruce t Referred To Contact Dermatology Diagnoses Breast lesion Whitney Vanegas PA [address] [place] [address] [facility] Dermatology [address] [place] [address] Referral ID Status Reason Start Date Expiration Date V isits Requested Visits Authorized [id number] Closed Consult, Test & Treat PCP Updated and/or Approved 01/02/2022 01/02/2023 12 12 Encounter Details Date Type Department Care Team (Late st Contact Info) Description 01/02/2022 Transcribe Orders eDH Incoming Referrals [phone] Whitney Vanegas PA [address] [place], [place] [address] Breast lesion Social History Tobacco Use Types [...] disorder documented in this encounter Care Teams Recovery Room Rn Relationship Specialty Start Date End Date Yamile De Leon APRN PCP - General Family Medicine 10/01/18 11/19/23 documented as of this encounter
--- OUTSIDE RECORDS SUMMARY | 2024-05-10 15:53 | XMS_ITS | Encounter Summary ---
Author Organization [facility] Address [facility] [place] [address] Care Team Providers Care Information Systems Specialist Name Role Phone None Primary Care Provider Unavailabl e Reason for Visit * Auth/Cert Specialty Diagnoses / Procedures Referred By Contac t Referred To Contact Diagnoses Fracture of unspecified tarsal bone(s) of unspecified foot, initial encounter for closed fracture CLOSED HEAD INJURY, FOOT BONE FX'S -CONFUSED Procedures EMERGENCY IPI Referral ID Status Reason Start Date Expiration Date Visits Re quested Visits Authorized [id number] 1 1 Encounter Details Date Type Department Care Team (Latest Contact Info) Description 09/14/2018 7:05 PM EDT - 09/20/2018 5:09 PM EDT Hospital Encounter [address] [place] [id number] Javad Urban MD [facility] [place] [address] S/P ORIF bilateral foot fractures, 09/16/18 (Gitajn) [...] Jenae La Patient Age: 53 y.o. Language: Macedonian Race: White Ethnicity: Not nor Admit date: 09/14/2018 Discharge date and time: 09/20/2018 Attending Physician: Javad Urban MD Discharge Physician: Javad Urban MD Follow-up Recommendations for Providers: See discharge instructions for additional details. Future Appointments Date Time Provider Department Center 10/01/2018 10:00 AM [facility] DX ROOM 1 Xray Leb Rad Clin 10/01/2018 11:00 AM Mary Ellison PA Leb Ortho 3C [facility] 11/08/2018 1:00 PM Abdirahman Enamorado MD Leb Neuro [facility] Inpatient Provider Contact Information: Javad Urban MD Orthopedics: [phone] After hours and weekends, call [facility] Risk Control Manager, , and have the Orthopedic resident [...] the orthopaedics service as a transfer from [facility] for operative management of bilateral complex [...] multiple times, leading her to present to [facility] on 09/12/2018 for evaluation. ?? Initial work-up at [facility] revealed sepsis secondary to suspected community- acquired pneumonia, mild acute exacerbation of COPD, a closed head injury with postconcussive syndrome, multiple bilateral foot fractures, and MANUEL, resulting in hospital admission. Upon presentation to the [facility] ED, her and herjake reported instances [...] no active bleeding observed. General Surgery at [facility] evaluated the patient, and felt no further action was required besides outpatient follow up. ?? Upon arrival to [facility], Mrs. La reports moderate pain in her [...] Orthopedic Surgery Service as a transfer from [facility] for definitive operative management of bilateral [...] demonstrated seizure-like activity during her presentation at [facility], thus would recommend consulting Neurology to determine??the need for an EEG to rule out sub-clinical seizure and determine the need to continue keppra. The patient's revised cardiac risk index is a Class I risk (0 points) with a 3.9% 30 day risk of , MO, or cardiac arrest. No further cardiac work [...] a transfer to the orthopedic service from [facility] for bilateral complex foot fractures. ?? [...] to: Home HOME HEALTH CARE AGENCY: ??[facility] ?? PHONE: [phone] FAX: [phone] Updated Allergies/ADRs: Allergies Allergen Reactions ??? Sulfa [...] bowel movement. You can also take an kvrn-rfr-knuijnt medication, Miralax if needed to combat constipation. [...] skin and wound problems. Call your doctor ([phone]) if you develop: 1. Fever greater than [...] 1. You will have follow-up appointments at [facility] as indicated in Future Appointment and Orders. You will have an xray prior to those appointments so please come to Radiology, desk 3T, 1 hour BEFORE your appointment for those x-rays. Future Appointments Date Time Provider Department Center 10/01/2018 10:00 AM [facility] DX ROOM 1 Xray [facility] Clin 10/01/2018 11:00 AM Mary Ellison PA Leb Ortho [facility] 11/08/2018 1:00 PM Abdirahman Enamorado MD Leb Neuro [facility] If you have questions or concerns: [...] Provider Department Dept Phone 10/01/2018 10:00 AM [facility] DX ROOM 1 XRay at [place] Arrive at: [facility] Flotation Operator Area [phone] Please go to [facility] Area 3T ([place] Location). 10/01/2018 11:00 AM Mary Ellison PA Orthopaedics at [place] Arrive at: [facility] Area 3C [phone] 11/08/2018 1:00 PM Abdirahman Enamorado MD Neurology at [place] Arrive at: [facility] Area 3C [phone] Future Orders Complete By Expires Durable Medical Equipment Order [EQ148 Custom] As directed Process Instructions: Scheduling Instructions: Comments: Non weight bearing bilateraly Questions: Name/Description of requested item: Drop arm commode Size requested: 20 Vendor Name/Contact information: [facility] Durable Medical Equipment Order [EQ148 Custom] As [...] Process Instructions: Scheduling Instructions: Comments: Jenae [address] [facility] [phone] (home) No relevant phone numbers on file. Diagnosis:Bilateral fractures both feet requiring surgery Non weight barring Patient's: Hgt: 5'1 Wgt: 183 VENDOR: [employer] Ordering: Drop arm commode needed ARABELLA is required for discharge Questions: Name/Description of requested item: Drop arm Commode Size requested: Standard Vendor Name/Contact information: [employer] Referral to Home Health - at DISCHARGE [[id number] CPT(R)] As directed Process Instructions: Scheduling Instructions: Comments: DOCUMENTATION FOR VNA SERVICES (INCLUDING THOSE PATIENTS WITH MEDICARE COVERAGE REQUIRING HOME VNA SERVICES AND/OR HOSPICE SERVICES) PATIENT'S LOCATION: Jenae Nickerson [facility]. [facility] [address] (home) Cell: No relevant phone numbers on file. Burlap Man's Name: herself with 's assist In discussion with the attending physician, it is certified that this patient is under their care and that they, or a Nurse Practitioner,Clinical Nurse specialist or Physician Bird Cage Assembler who is working directly with them, had [...] continue rehab for managing ADL's. Eval for INSTRUCTIONAL TECHNOLOGY FACILITATOR: HOME HEALTH CARE AGENCY: [facility] PHONE: [phone] FAX: [phone] Start of care: 09/21/18 FOR MEDICARE ONLY: [...] this patient's PCP: LILLY Gaitan [address] [facility] / [place] [address] All A agencies which cover the area of patient's residence have been reviewed, either verbally irasema writing, and patient/family have chosen the home health care agency noted Questions: Agency name and contact information: [facility] Patient location post discharge: home What [...] information: Harriet Primary Care Provider: LILLY Gaitan [phone] Discharge References/Attachments None documented in this encounter [...] bowel movement. You can also take an thvp-xxl-tlfbwty medication, Miralax if needed to combat constipation. [...] skin and wound problems. Call your doctor ([phone]) if you develop: 1. Fever greater than [...] 1. You will have follow-up appointments at [facility] as indicated in Future Appointment and Orders. You will have an xray prior to those appointments so please come to Radiology, desk 3T, 1 hour BEFORE your appointment for those x-rays. Future Appointments Date Time Provider Department Center 10/01/2018 10:00 AM [facility] DX ROOM 1 Xray Leb Rad [...] ) Service Ortho Pager # Check daily [facility] is unable to supply the commode and the slide board . This headline writer called several places andfound slide board at [facility] and [facility] as well that is being serviced [...] discharge planning. 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 A letter describing our affiliations was reviewed with them and they were educated about their right to choose where referrals are placed. Patient requests referral to [facility] Expected date of discharge: 09/20/18 Referral routed to the Brain Surgeon for matching with agency/vendor and to provide any required information. Ivette Álvarez [facility] Beeper #[phone] * Ivette Álvarez RN - 09/20/2018 11:14 AM EDT Office of Care Managment (OCM /Caremanger (CM)/ Discharge planning ) Service Ortho Pager # check daily Patient is medically ready to go . Made call to [facility] to verify delivery of Wheelchair , slide board and drop arm commode for today (family said they can pick the items up on the way home ) Thalia from [facility] is checking with [facility] office to make sure items are available for them. Plan: CM will continue to follow for coordination of care and to facilitate discharge planning. ? Ivette Álvarez RN CM Pager [phone] * Ori Santos MD - 09/20/2018 5:39 [...] Pain well controlled. [facility]. Discharge likely today, dependent on DME delivery to [facility]. Activity: NWB BLE. Strict elevation in splints. Closure: Sutures (remove 10-14 days) Dressing: DSD, splints. Drain: None Anticoagulation: Lovenox for 30 days Antibiotics: Empiric Ceftriaxone/Azithromycin for suspected CAP Consults: Medicine, Neuro Dispo: Like home today Follow-up: As scheduled Ori Santos MD 09/20/2018 Future Appointments Date Time Provider Department Center 10/01/2018 10:00 AM [facility] DX ROOM 1 Xray Leb Rad [...] with Med Team re pt DC today( [id number]). Pt to dc Thursday * Sanket Freeman [...] Time Provider Department Center 10/01/2018 10:00 AM [facility] DX ROOM 1 Xray Leb Rad [...] a transfer to the orthopedic service from [facility] for bilateral complex foot fractures. INTERVAL [...] L Elbow flexion 5/5 R, 5/5 L Private Duty Lpn LE: Deferred due to her pain Sensation: [...] a transfer to the orthopedic service from [facility] for bilateral complex foot fractures. Patient [...] - PGY-3 General Neurology Consults Team Pager #[phone] 09/17/18 Associated attestation - Jose Swan MD - 09/17/2018 4:41 PM EDT I have seen and examined Jenae La with the neurology team on 09/17/2018 and agree with the assessment and plan as below. Face twitching. 53 Y F with history of DJD spine, DM, fibromyalgia being seen by Neurologist at [facility] Episodes of left sided facial twitching Stopped taking gabapentin recently due to side effects. Low suspicion for these being seizures. AEDs not needed at this time Recommended lower doses of gabapentin which she doesn't wish to take. Outpatient neurology followup Jose Swan MD Department of Neurology [facility] * Sanket Freeman MD - 09/17/2018 [...] Department of Orthopaedics 09/17/18 * Davin Ann, MOLECULAR PHYSICIST - 09/16/2018 11:22 PM EDT Pt refused [...] 8:31 AM EDT Internal Medicine Consult Note (#[id number]) Progress Note Patient info: Name: Jenae La : 1965 PCP: LILLY Gaitan PCP phone number: [phone] Date of Admission: 09/14/2018 ( Hospital Day [...] Orthopedic Surgery Service as a transfer from [facility] for operative management of bilateral complex [...] in the last 7068 hours. Invalid input(s): [id number] Heme: No results for input(s): LDH, HAPTOGLOBIN, URICACID in the last 168 hours. ABG: ABG (Arterial Blood Gas) No results found for: PHART, PO2ART, SBJ6GHA, QKB9EDG Microbiology: Site Date and Time Obtained Result [...] Orthopedic Surgery Service as a transfer from [facility] for definitive operative management of bilateral [...] demonstrated seizure-like activity during her presentation at [facility], thus would recommend consulting Neurology to determine the need ace EEG to rule out sub-clinical seizure and determine the need to continue keppra. The patient's revised cardiac risk index is a Class I risk (0 points) with a 3.9% 30 day risk of , MO, or cardiac arrest. No further cardiac work [...] Lyon MD, PGY-3 09/16/2018 Medicine Consult # [id number] Associated attestation - Chris Stahl DO - [...] today vs tomorrow pending scheduling availability. Appreciate [facility] medicine recs. - Neuro consult today - Remain NPO for possible OR today - UA today - NWB B/l LE - Pain control: Oral multimodal pain medication - Discharge planning: likely rehab per PT - F/u TBD Sanket Freeman MD PGY-2 Orthopaedics * Davin Ann, MOLECULAR PHYSICIST - 09/15/2018 11:00 PM EDT Pt had Nausea, NIV held this evening. * Kathrin Madsen RN - 09/15/2018 2:05 PM EDT Based on discussions with the multi-disciplinary healthcare team, the patient would benefit from snf/swing/acute level of care at discharge. ?? I have met with the patient/agricultural sales representative to discuss discharge planning needs. I have provided the [facility], Office of Care Management letter from the Mobile Phlebotomist pertaining to rehab referrals. I have also provided a letter describing our affiliations within the [facility] and educated them about their right to choose where referrals are placed. ?? I reviewed the different levels of rehab including SNF, swing, acute and LTAC with the patient/agricultural sales representative. ?? The patient/agricultural sales representative has been provided a list of facilities within their preferred geographic area. ?? I have requested that the patient/agricultural sales representative provide at least three choices for referral. ?? The patient/agricultural sales representative have requested referrals to: 2.[facility] [address] [place] [id number] ?? [phone] 1. [facility] [address] [place] [address] ?? [phone] ?? Expected date of discharge: 09/17/18 Note routed to Brain Surgeon who will communicate referrals to facilities and [...] % Laboratory: No results found for: PHART, EJK4MOH, PO2ART, AMP9DCN, BEART Assessment: Called to set pt up [...] Urban PCP: LILLY Gaitan PCP phone #: [phone] Chief Complaint: Foot pain History of Present Illness: Jenae La is a 53 y.o woman with HTN, HLD, Type II DM, LORRI on CPAP,fibromyalgia with chronic opioid use, and GERD who was admitted to the Orthopedic Surgery Service as a transfer from [facility] for operative management of bilateral complex foot fractures s/p trauma (dropping firewood on her feet) on the evening of 09/11/18 causing bilateral immediate pain, swelling, andbruising making it difficult to ambulate and leading to falls c/b striking her head multiple times.It was with these symptoms that she presented to [facility] on 09/12/18. During her initial presentation in the [facility] ED, the patient reported instances of trembling and fecal incontinence. She was noted to be confused with lip and unilateral arm twitching. CT head was negative. CT C-spine was negative. CTchest demonstrated 6.8mm ground glass nodule in the RUL and b/l ground glass opacities. An LP was performed for suspicion of meningitis that was reportedly negative, CSF cultures were reportedly negative. At [facility], she was found to have post-concussive [...] hours of admission. She was admitted to [facility] from 09/12/18 - 09/14/18. Upon arrival at [facility] on 09/15/18,the patient noted moderate bilateral pain [...] Illicits: Denies Living Situation: Lives with in [place] Vitals: Last value Range last 24 hrs [...] in the last 7068 hours. Invalid input(s): ZCXIGARTISE1H Heme: No results for input(s): LDH, HAPTOGLOBIN, [...] Orthopedic Surgery Service as a transfer from [facility] for definitive operative management of bilateral [...] demonstrated seizure-like activity during her presentation at [facility], thus would recommend consulting Neurology to determine the need for an EEG to rule out sub- clinical seizure and determine the need to continue keppra. The patient's other chronic medical conditions remains stable at this time. See rest of plan below: The patient's revised cardiac risk index is a Class I risk (0 points) with a 3.9% 30 day risk of , MO, or cardiac arrest. No further cardiac work [...] Internal Medicine, PGY- 3 Medicine Consult Pager #[phone] Associated attestation - Chris Stahl DO - [...] female who presented as a transfer from [facility] for operative management of the complex foot fractures due to trauma on 09/11/2018. Her hospital course at [facility] was complicated by an ICU admission due to community-acquired pneumonia, as well as possible focal seizures and postconcussive syndrome. Here at [facility] patient has been clinically stable from pulmonary [...] the orthopaedics service as a transfer from [facility] for operative management of bilateral complex [...] multiple times, leading her to present to [facility] on 09/12/2018 for evaluation. Initial work-up at [facility] revealed sepsis secondary to suspected community- acquired pneumonia, mild acute exacerbation of COPD, a closed head injury with postconcussive syndrome, multiple bilateral foot fractures, and MANUEL, resulting in hospital admission. Upon presentation to the [facility] ED, her and cristian reported instances [...] no active bleeding observed. General Surgery at [facility] evaluated the patient, and felt no further action was required besides outpatient follow up. Upon arrival to [facility], Mrs. La reports moderate pain in her [...] Situation: Lives with and multiple pets in [place], [place]. Review of Systems: As per HPI, [...] direct admit to the Orthopaedics service from [facility] for definitive management of bilateral complex [...] and witnessed facial and arm twitching at [facility] (witnessed by nursing). Also has hit [...] tablet 1,000 mg 1,000 mg Oral Q8H [facility] Sanket Freeman MD 1,000 mg at 09/17/18 [...] channel digitized electroencephalogram was performed in the [facility] Clinical Neurophysiology Laboratory. The 10/20 international system of electrode placement was used and bipolar and referential electrode montages were recorded. In addition to EEG the patient was monitored for EKGand lateral/vertical eye movements. Video was recorded during the session. The duration of the recording was 30 minutes. PROFESSIONAL ADVISOR'S REPORT: Performed by: RR/GERHARD Patient was not sleep deprived. [...] Angel MD Clinical Neurophysiology Fellow Personal Pager #[phone] Epilepsy Neurology #[phone] Neurology Attending I have personally reviewed the EEG, and I agree with the details as written. The above report was formulated in discussion with me at the time of EEG reading, and I agree with it as documented. Jose Singer [place] [address] Pager: [phone], #[phone] Email: [email or web address] documented in this encounter Miscellaneous Notes * [...] quit. She is not interested in receiving [facility] Tobacco Cessation packet. A: Pt refused consult. P: Encouraged patient to reach out to PCP for nicotine inhaler prescription. Dimitrios Valle, MSN, RN-, [facility] Tobacco Woodworker [facility] Pager #[phone] * Plan of Care - Stacey Duenas [...] I have spoken with Thalia from the [place] office and she states shecannot get this DME on a Thu afternoon for Sat am but can do this for a Mon d/c. Pt states there jessy branch in [facility] that she has used in the past. Pt requests a referral to [facility] for an RN for skilled assessments, PT, OT, and steve for INSTRUCTIONAL TECHNOLOGY FACILITATOR. Pt requests Ofelia Barger if possible. I [...] NO xxx Lauren Perales, PT, DPT Pager: [phone] Inpatient Physical Therapy 2017 PT Evaluation Code [...] (Group);Wheelchair Training/Management (Group) Bed Mobility Assessment/Treatment Scoot/Bridge Oceana (Bed Mobility) conditional independence Uopkkp-py-Qci Oceana (Bed Mobility) conditional independence Ave-uh-Levuve Oceana (Bed Mobility) conditional independence Safety Issues (Bed Mobility) decreased use of legs for bridging/pushing Impairments (Bed Mobility) pain;ROM (range of motion) decreased Comment (Bed Mobility) incr time/effort to/from EOB but no physical assistance, NWB maintained throughout, good SLR b/l LEs Transfer Assessment/Treatment Bed-Chair [place]ana (Transfers) supervision required;conditional independence (initial supervision progressing to ind) Byh-Fjyzw-Guj Assistive Device (Transfers) slide board [place] (Toilet Transfers) supervision required;conditional independence Assistive Device [...] with assist, home with home health(PT) Pager: [phone] Ori Bates OT 09/17/2018 Occupational Therapy Rehabilitation [...] pain;ROM (range of motion) decreased;strength decreased Scoot/Bridge Oceana (Bed Mobility) conditional independence Pdnwvp-ch-Akt Oceana (Bed Mobility) conditional independence Taw-ap-Ztgucr Oceana (Bed Mobility) conditional independence Comment (Bed Mobility) Pt performeed bed mobility w/ increased time and pain. Transfer Assessment/Treatment Oceana (Toilet Transfers) supervision required;conditional independence Impairments (Transfers) pain;ROM (range of motion) decreased;strength decreased Blf-Ifbtq-Yju Assistive Device (Transfers) slide board Bed-Chair Oceana (Transfers) supervision required;contact guard assist Comment (Transfers) [...] Body Dressing Assessment/Training Assistive Devices (LB Dressing) comptometrist Position (LB Dressing) sitting Oceana Level (LB Dressing) conditional independence Impairments (LB Dressing) pain;ROM (range of motion) decreased;strength decreased Comment (LB Dressing) Pt donned pants independently, w/ slight increase in time. Toileting Assessment/Training Position (Toileting) sitting Oceana Level (Toileting) conditional independence Impairments (Toileting) ROM [...] a transfer to the orthopedic service from [facility] for bilateral complex foot fractures. Per discussion with the consulting provider, patient was initially admitted to [facility] for bilateral foot fractures. This was in the setting of multiple falls in the previous days leading up to her admission. She was also noted to strike her head multiple times during these falls. In conversation withthe patient's at [facility], there was some discussion of some trembling, [...] L Elbow flexion 5/5 R, 5/5 L Private Duty Lpn LE: Deferred due to her pain Sensation: [...] Negative mcL Appearance UA Clear Clear Spec [place]aston UA 1.012 1.002 - 1.030 Color UA [...] a transfer to the orthopedic service from [facility] for bilateral complex foot fractures. Discussion with Jenae and her significant other about her initial presentation makes us less concerned for seizure activity. However, it is hard to say what the nurses at [facility] actually saw but they describe twitching [...] - PGY-3 General Neurology Consults Team Pager #[phone] 09/16/18 Associated attestation - German Gu III, [...] as documented. German Gu III, MD Pager: [phone] 7:42 AM 09/17/2018 * Op Note - Aparna Reed MD - 09/16/2018 2:02 PM EDT [facility] Operative Note Patient Name: Jenae La : [id number] MR#: [id number] Case Date: 09/16/2018 Surgeon: Surgeon(s) and Role: [...] 2nd metatarsal fracture, left 3rd metatarsal fracture, qmtx9ml metatarsal fracture, left cuboid fracture. Procedure(s) (LRB): [...] the second tarsometatarsal joint. We used a dttvt-gf-pmoaw clamp to reduce it, and then fixed [...] the articular surface. We then used a [place] to bring the impacted articular surface down [...] Reed MD - 09/16/2018 1:54 PM EDT [facility] Operative Note- Left foot This patient underwent bilateral procedures. This operative note is for the left foot. Patient Name: Jenae La : [id number] MR#: [id number] Case Date: 09/16/2018 Surgeon: Surgeon(s) and Role: [...] 2nd metatarsal fracture, left 3rd metatarsal fracture, [id number] metatarsal fracture, left cuboid fracture. ?? Procedure(s) [...] fractures and dislocations. She was seen at [facility] and transferred to [facility] for further care. We discussed the risks [...] third metatarsal fracture was exposed using a [place]. A mecza-cl-wzzrl clamp was used to control the distal [...] toe extensors. Fracture was exposed using a [place]. A blipn-xj-vqihi clamp was used to control the distal [...] Implant Name Type Inv. Item Serial No. Front Desk Receptionist Lot No. LRB No. Used Action PIN,KWIRE,TROC 1 ED,NS,[id number] ([id number]) (AutoReq) - [id number] IMPLANTS PIN,KWIRE,TROC 1 ED,NS,[id number] ([id number]) (AutoReq) [facility] Right 1 Implanted and Explanted SCREW,CRTX,STAP,T8,2.4X16MM ([id number]) - [id number] IMPLANTS SCREW,CRTX,STAP,T8,2.4X16MM ([id number]) [facility] Right 1 Implanted SCREW,CRTX,STAP,T8,2.4X26MM ([id number]) - [id number] IMPLANTS SCREW,CRTX,STAP,T8,2.4X26MM ([id number]) [facility] Right 1 Implanted SCREW,CRTX,STAP,T8,2.4X22MM ([id number]) - [id number] IMPLANTS SCREW,CRTX,STAP,T8,2.4X22MM ([id number]) [facility] Right 1 Implanted SCREW,SLFTP,LCK,STAR,2.4X12MM ([id number]) - [id number] IMPLANTS SCREW,SLFTP,LCK,STAR,2.4X12MM ([id number]) [facility] Right 1 Implanted SCREW,LCK,STAP,STAR,2.4X6MM ([id number]) - [id number] IMPLANTS SCREW,LCK,STAP,STAR,2.4X6MM ([id number]) [facility] Right 1 Implanted SCREW,LCK,STAP,STAR,2.4X18MM ([id number]) - [id number] IMPLANTS SCREW,LCK,STAP,STAR,2.4X18MM ([id number])[facility] Right 1 Implanted SCREW,CRTX,STAP,STRDRV,2X9MM ([id number]) - [id number] IMPLANTS SCREW,CRTX,STAP,STRDRV,2X9MM ([id number])[facility] Right 1 Implanted SCREW,CRTX,STAP,STAR,2X24MM ([id number]) - [id number] IMPLANTS SCREW,CRTX,STAP,STAR,2X24MM ([id number]) [facility] Right 1 Wasted SCREW,CRTX,STAP,STAR,2X28MM ([id number]) - [id number] IMPLANTS SCREW,CRTX,STAP,STAR,2X28MM (6592664) [facility] Right 1 Implanted SCREW,CRTX,STAP,STAR,2X18MM ([id number]) - [id number] IMPLANTS SCREW,CRTX,STAP,STAR,2X18MM ([id number]) [facility] Right 1 Implanted SCREW,LCK,STAP,STAR,2X14MM ([id number]) - [id number] IMPLANTS SCREW,LCK,STAP,STAR,2X14MM ([id number]) [facility] Right 1 Implanted SCREW,LCK,STAP,STAR,2X18MM ([id number]) - [id number] IMPLANTS SCREW,LCK,STAP,STAR,2X18MM (3853239) [facility] Right 1 Implanted PLATE,LCP,7H,2.0X52MM ([id number]) - [id number] IMPLANTS PLATE,LCP,7H,2.0X52MM ([id number]) [facility] Right 1 Implanted PLATE,CNDYLR,LCP,7H,2.4MM ([id number]) (AutoReq) - [id number] IMPLANTS PLATE,CNDYLR,LCP,7H,2.4MM (3432138) (AutoReq) [facility] Right 1 Implanted BONE,CRUSHED,CANCELLOUS,10CC ([id number]) (AutoReq) - [id number] IMPLANTS BONE,CRUSHED,CANCELLOUS,10CC([id number]) (AutoReq) [facility] [id number] Right 1 Implanted PIN,KWIRE,TROC 1ED,NS,6M817SW ([id number]) - [id number] IMPLANTS PIN,KWIRE,TROC 1ED,NS,0D201JZ (7089981) [facility] Right 2 Implanted and Explanted PIN,KWIRE,PLAIN,2,0.565O5OV,NS ([id number]) - [id number] IMPLANTS PIN,KWIRE,PLAIN,2,0.032F4VW,NS (8155487) [employer] Left 3 Implanted PLATE,LCP,CNDYLR,7H-SHFT,2MM ([id number]) - [id number] IMPLANTS PLATE,LCP,CNDYLR,7H-SHFT,2MM ([id number])[facility] Left 1 Implanted SCREW,LCK,STAP,STAR,2X12MM ([id number]) - [id number] IMPLANTS SCREW,LCK,STAP,STAR,2X12MM ([id number]) [facility] Left 1 Implanted SCREW,LCK,STAP,STAR,2X10MM ([id number]) - [id number] IMPLANTS SCREW,LCK,STAP,STAR,2X10MM ([id number]) [facility] Left 1 Implanted SCREW,CRTX,STAP,STAR,2X12MM ([id number]) - [id number] IMPLANTS SCREW,CRTX,STAP,STAR,2X12MM ([id number]) [facility] Left 1 Implanted SCREW,CRTX,STAP,STAR,2X14MM ([id number]) - [id number] IMPLANTS SCREW,CRTX,STAP,STAR,2X14MM ([id number]) [facility] Left 1 Implanted SCREW,CRTX,STAP,STAR,2X14MM ([id number]) - [id number] IMPLANTS SCREW,CRTX,STAP,STAR,2X14MM ([id number]) [facility] Right 1 Implanted SCREW,VA,LCK,SLFTP,T6,2X22MM ([id number]) - [id number] IMPLANTS SCREW,VA,LCK,SLFTP,T6,2X22MM (3569349)[employer] Right 1 Implanted SCREW,VA,LCK,SLFTP,T6,2X18MM ([id number]) - [id number] IMPLANTS SCREW,VA,LCK,SLFTP,T6,2X18MM ([id number])[employer] Right 1 Implanted SCREW,VA,LCK,SLFTP,T6,2X16MM ([id number]) - [id number] IMPLANTS SCREW,VA,LCK,SLFTP,T6,2X16MM ([id number])[facility] Right 1 Implanted SCREW,CRTX,STAP,STAR,2X16MM ([id number]) - [id number] IMPLANTS SCREW,CRTX,STAP,STAR,2X16MM ([id number]) [facility] Right 1 Implanted SCREW,CRTX,STAP,STAR,2X12MM (5813944) - [id number] IMPLANTS SCREW,CRTX,STAP,STAR,2X12MM ([id number]) [facility] Right 1 Implanted SCREW,CRTX,STAP,STRDRV,2X10MM ([id number]) - [id number] IMPLANTS SCREW,CRTX,STAP,STRDRV,2X10MM ([id number]) [facility] Left 1 Implanted GUIDEW,THRD,1.1L266TR ([id number]) - [id number] IMPLANTS GUIDEW,THRD,1.3V401QQ ([id number]) [facility]; [facility] Right 3 Implanted Number of fracture regions: [...] or concerns. Lauren Perales PT, DPT Pager: [phone] 09/16/18 Inpatient Rehabilitation Department * Plan of [...] toward outcome * Plan of Care - rOi Bates OT - 09/15/2018 3:13 PM EDT OCCUPATIONAL THERAPY Order received and chart reviewed. Pt is pending surgery for bilat foot fractures, OT will follow up post up as able/appropriate. Ori Valencia OT Pager: [phone] * Initial Assessments - Kathrin Madsen RN [...] MEDICAID [place] Prescription Coverage: [facility] Other: Primary Care Provider: LILLY Gaitan [phone] Patient/Caregiver Goals of Treatment: agreed to go [...] kind. She agrees to snf referrals, #1 [facility], [facility]. Referral submitted. Plan: snf vs swing vs acute. A member of the Care Management team will continue to monitor progress, follow for continuity of care and assist with transition of care planning. Kathrin Madsen RN Pager: [phone] * Plan of Care - Horace Beckman [...] Glucose, POC 139 65 - 199 mg/dL [facility] Comment: Supplemental ranges: <140 mg/dL before meals <180 mg/dL all other times of the day Blood specimen (specimen) 09/20/2018 11:29 AM EDT 09/20/2018 11:29 AM EDT Javad Urban MD POINT OF CARE TEST O RDERABLES [facility] [place] [address] * POCT Glucose (09/20/2018 8:02 AM EDT) Glucose, POC 167 65 - 199 mg/dL [facility] Comment: Supplemental ranges: <140 mg/dL before meals <180 mg/dL all other times of the day Blood specimen (specimen) 09/20/2018 8:02 AM EDT 09/20/2018 8:02 AM EDT Javad Urban MD POINT OF CARE TEST O RDERALISSETT Performing Organization Address [facility] Co de Phone Number [facility] [place] [address] * POCT Glucose (09/20/2018 4:03 AM EDT) Glucose, POC 127 65 - 199 mg/dL [facility] Comment: Supplemental ranges: <140 mg/dL before meals <180 mg/dL all other times of the day Blood specimen (specimen) 09/20/2018 4:03 AM EDT 09/20/2018 4:03 AM EDT Javad Urban MD POINT OF CARE TEST O JONY Performing Organization Address [facility] Co de Phone Number [facility] [place] [address] * POCT Glucose (09/19/2018 11:45 PM EDT) Glucose, POC 146 65 - 199 mg/dL [facility] Comment: Supplemental ranges: <140 mg/dL before meals <180 mg/dL all other times of the day Blood specimen (specimen) 09/19/2018 11:45 PM EDT 09/19/2018 11:45 PM EDT Javad Urban MD POINT OF CARE TEST O RDERALISSETT Performing Organization Address [facility] Co de Phone Number [facility] [place] [address] * POCT Glucose (09/19/2018 7:26 PM EDT) Glucose, POC 149 65 - 199 mg/dL [facility] Comment: Supplemental ranges: <140 mg/dL before meals <180 mg/dL all other times of the day Blood specimen (specimen) 09/19/2018 7:26 PM EDT 09/19/2018 7:26 PM EDT Javad Urban MD POINT OF CARE TEST O RDSILVIO Performing Organization Address City/[facility]/ZIP Co de Phone Number [facility] [place] [address] * POCT Glucose (09/19/2018 4:14 PM EDT) Glucose, POC 144 65 - 199 mg/dL [facility] Comment: Supplemental ranges: <140 mg/dL before meals <180 mg/dL all other times of the day Blood specimen (specimen) 09/19/2018 4:14 PM EDT 09/19/2018 4:14 PM EDT Javad Urban MD POINT OF CARE TEST O JONY Performing Organization Address [facility]/ZIP Co de Phone Number [facility] [place] [address] * POCT Glucose (09/19/2018 11:28 AM EDT) Glucose, POC 170 65 - 199 mg/dL [facility] Comment: Supplemental ranges: <140 mg/dL before meals <180 mg/dL all other times of the day Blood specimen (specimen) 09/19/2018 11:28 AM EDT 09/19/2018 11:28 AM EDT Javad Urban MD POINT OF CARE TEST O JONY Performing Organization Address City/[facility]/ZIP Co de Phone Number [facility] [place] [address] * POCT Glucose (09/19/2018 7:54 AM EDT) Glucose, POC 120 65 - 199 mg/dL [facility] Comment: Supplemental ranges: <140 mg/dL before meals <180 mg/dL all other times of the day Blood specimen (specimen) 09/19/2018 7:54 AM EDT 09/19/2018 7:54 AM EDT Javad Urban MD POINT OF CARE TEST O RDERABLES Performing Organization Address [facility] Co de Phone Number [facility] [place] [address] * POCT Glucose (09/19/2018 3:42 AM EDT) Glucose, POC 105 65 - 199 mg/dL [facility] Comment: Supplemental ranges: <140 mg/dL before meals <180 mg/dL all other times of the day Blood specimen (specimen) 09/19/2018 3:42 AM EDT 09/19/2018 3:42 AM EDT Javad Urban MD POINT OF CARE TEST O RDERALISSETT Performing Organization Address [facility] Co de Phone Number [facility] [place] [address] * Magnesium (09/19/2018 3:40 AM EDT) [facility] Signature Magnesium 0.74 0.69 - 1.07 mmol/L [facility] Blood specimen (specimen) Venous Draw / Unknown 09/19/2018 3:40 AM EDT 09/19/2018 4:40 AM EDT Narrative Resulting Agency Comment Spec In Lab Buffy CARR CHEMISTRY ORDERAB LES Performing Organization Address [facility] Co de Phone Number [facility] [place] [address] * (ABNORMAL) Basic Metabolic Panel (non-fasting) (09/19/2018 3:40 AM EDT) Glucose 111 65 - 199 mg/dL [facility] Comment:Diabetes: >=200 mg/d L plus symptoms Blood Urea Nitrogen 11 8 - 18 mg/dL [facility] Creatinine 0.64(L) 0.70 - 1.20 mg/dL [facility] Sodium 140 135 - 145 mmol/L [facility] Potassium 4.0 3.5 - 5.0 mmol/L [facility] Comment: Please note: ??Patients with WBC >100,000 may have falsely elevated Potassium levels. ??For accurate Potassium quantification in these patients send serum separator tube (gold top) for subsequent determinations. ??Contact the Clinical Chemistry Laboratory if there are any questions. Chloride 104 98 - 107 mmol/L [facility] Carbon Dioxide 27 22 - 31 mmol/L [facility] Anion Gap 9 5 - 15 mmol/L [facility] Calcium 8.9 8.5 - 10.5 mg/dL [facility] Est Glomerular Filtration Rate 103 >=60 mL/min/1. 73 m?? [facility] Comment: The eGFR was calculated using the CKD-EPI equation. As with all creatinine based estimates of kidney function, eGFR values calculated with the CKD-EPI equation are not accurate in patients with acute kidney failure, extremes of body mass or the acutely ill. [email or web address] eGFR 120 >=60 mL/min/1. 73 m?? [facility] Comment: The eGFR was calculated using the CKD-EPI equation. As with all creatinine based estimates of kidney function, eGFR values calculated with the CKD-EPI equation are not accurate in patients with acute kidney failure, extremes of body mass or the acutely ill. [email or web address] Blood specimen (specimen) 09/19/2018 3:40 AM EDT 09/19/2018 3:53 AM EDT Narrative Resulting Agency Comment Spec In Lab Trina Loo APRN CHEMISTRY ORDERABLE S [facility] [place] [address] * POCT Glucose (09/18/2018 11:20 PM EDT) Glucose, POC 150 65 - 199 mg/dL [facility] Comment: Supplemental ranges: <140 mg/dL before meals <180 mg/dL all other times of the day Blood specimen (specimen) 09/18/2018 11:20 PM EDT 09/18/2018 11:20 PM EDT Javad Urban MD POINT OF CARE TEST O JONY Performing Organization Address City/[facility]/ZIP Co de Phone Number [facility] [place] [address] * POCT Glucose (09/18/2018 7:57 PM EDT) Glucose, POC 103 65 - 199 mg/dL [facility] Comment: Supplemental ranges: <140 mg/dL before meals <180 mg/dL all other times of the day Blood specimen (specimen) 09/18/2018 7:57 PM EDT 09/18/2018 7:57 PM EDT Javad Urban MD POINT OF CARE TEST O JONY Performing Organization Address [facility] Co de Phone Number [facility] [place] [address] * POCT Glucose (09/18/2018 4:56 PM EDT) Glucose, POC 142 65 - 199 mg/dL [facility] Comment: Supplemental ranges: <140 mg/dL before meals <180 mg/dL all other times of the day Blood specimen (specimen) 09/18/2018 4:56 PM EDT 09/18/2018 4:56 PM EDT Javad Urban MD POINT OF CARE TEST O JONY Performing Organization Address City/[facility] Co de Phone Number [facility] [place] [address] * POCT Glucose (09/18/2018 11:59 AM EDT) Glucose, POC 160 65 - 199 mg/dL [facility] Comment: Supplemental ranges: <140 mg/dL before meals <180 mg/dL all other times of the day Blood specimen (specimen) 09/18/2018 11:59 AM EDT 09/18/2018 11:59 AM EDT Javad Urban MD POINT OF CARE TEST O JONY Performing Organization Address [facility] Co de Phone Number [facility] [place] [address] * POCT Glucose (09/18/2018 7:55 AM EDT) Glucose, POC 126 65 - 199 mg/dL [facility] Comment: Supplemental ranges: <140 mg/dL before meals <180 mg/dL all other times of the day Blood specimen (specimen) 09/18/2018 7:55 AM EDT 09/18/2018 7:55 AM EDT Javad Urban MD POINT OF CARE TEST O JONY Performing Organization Address [facility] de Phone Number [facility] [place] [address] * POCT Glucose (09/18/2018 3:58 AM EDT) Glucose, POC 125 65 - 199 mg/dL [facility] Comment: Supplemental ranges: <140 mg/dL before meals <180 mg/dL all other times of the day Blood specimen (specimen) 09/18/2018 3:58 AM EDT 09/18/2018 3:58 AM EDT Javad Urban MD POINT OF CARE TEST O RDERALISSETT Performing Organization Address [facility] de Phone Number [facility] [place] [address] * (ABNORMAL) Magnesium (09/18/2018 3:37 AM EDT) Magnesium 0.67(L) 0.69 - 1.07 mmol/L [facility] Blood specimen (specimen) Venous Draw / Unknown 09/18/2018 3:37 AM EDT 09/18/2018 4:55 AM EDT Narrative Resulting Agency Comment Spec In Lab Trina Mueller Eze CARLOS CHEMISTRY ORDERABLE S [facility] [place] [address] * (ABNORMAL) Basic Metabolic Panel (non-fasting) (09/18/2018 3:37 AM EDT) Glucose 106 65 - 199 mg/dL [facility] Comment:Diabetes: >=200 mg/d L plus symptoms Blood Urea Nitrogen 7(L) 8 - 18 mg/dL [facility] Creatinine 0.62(L) 0.70 - 1.20 mg/dL [facility] Sodium 143 135 - 145 mmol/L [facility] Potassium 3.1(L) 3.5 - 5.0 mmol/L [facility] Comment: Please note: ??Patients with WBC >100,000 may have falsely elevated Potassium levels. ??For accurate Potassium quantification in these patients send serum separator tube (gold top) for subsequent determinations. ??Contact the Clinical Chemistry Laboratory if there are any questions. Chloride 106 98 - 107 mmol/L [facility] Carbon Dioxide 26 22 - 31 mmol/L [facility] Anion Gap 11 5 - 15 mmol/L [facility] Calcium 8.5 8.5 - 10.5 mg/dL [facility] Est Glomerular Filtration Rate 104 >=60 mL/min/1. 73 m?? [facility] Comment: The eGFR was calculated using the CKD-EPI equation. As with all creatinine based estimates of kidney function, eGFR values calculated with the CKD-EPI equation are not accurate in patients with acute kidney failure, extremes of body mass or the acutely ill. [email or web address] eGFR 121 >=60 mL/min/1. 73 m?? [facility] Comment: The eGFR was calculated using the CKD-EPI equation. As with all creatinine based estimates of kidney function, eGFR values calculated with the CKD-EPI equation are not accurate in patients with acute kidney failure, extremes of body mass or the acutely ill. [email or web address] Blood specimen (specimen) 09/18/2018 3:37 AM EDT 09/18/2018 3:59 AM EDT Narrative Resulting Agency Comment Spec In Lab Trina Loo APRN CHEMISTRY ORDERABLE S Performing Organization Address [facility] Co de Phone Number [facility] [place] [address] * POCT Glucose (09/17/2018 11:33 PM EDT) Glucose, POC 145 65 - 199 mg/dL [facility] Comment: Supplemental ranges: <140 mg/dL before meals <180 mg/dL all other times of the day Blood specimen (specimen) 09/17/2018 11:33 PM EDT 09/17/2018 11:33 PM EDT Javad Urban MD POINT OF CARE TEST O RDERABLES Performing Organization Address [facility] Co de Phone Number [facility] [place] [address] * (ABNORMAL) POCT Glucose (09/17/2018 7:24 PM EDT) Glucose, POC 200(H) 65 - 199 mg/dL [facility] Comment: Supplemental ranges: <140 mg/dL before meals <180 mg/dL all other times of the day Blood specimen (specimen) 09/17/2018 7:24 PM EDT 09/17/2018 7:24 PM EDT Javad Urban MD POINT OF CARE TEST O RDERABLES Performing Organization Address [facility] Co de Phone Number [facility] [place] [address] * POCT Glucose (09/17/2018 3:16 PM EDT) Glucose, POC 180 65 - 199 mg/dL [facility] Comment: Supplemental ranges: <140 mg/dL before meals <180 mg/dL all other times of the day Blood specimen (specimen) 09/17/2018 3:16 PM EDT 09/17/2018 3:16 PM EDT Javad Urban MD POINT OF CARE TEST O RDSILVIO Performing Organization Address [facility] Co de Phone Number [facility] [place] [address] * POCT Glucose (09/17/2018 12:01 PM EDT) Glucose, POC 137 65 - 199 mg/dL [facility] Comment: Supplemental ranges: <140 mg/dL before meals <180 mg/dL all other times of the day Blood specimen (specimen) 09/17/2018 12:01 PM EDT 09/17/2018 12:01 PM EDT Javad Urban MD POINT OF CARE TEST O JONY Performing Organization Address [facility] Co de Phone Number [facility] [place] [address] * EEG awake, asleep, drowsy, routine (09/17/2018 [...] and witnessed facial and arm twitching at [facility] (witnessed by nursing). Also has hit [...] tablet 1,000 mg ??1,000 mg Oral Q8H [facility] Sanket Freeman MD ?? 1,000 mg at [...] injection 1-4 Units ??1-4 Units Subcutaneous Q4H [facility] Sanket Freeman MD ?? 1 Units at 09/15/18 2305 ? ? ondansetron (ZOFRAN) injection 4 mg ??4 mg Intravenous Q8H PRSanket Friedman MD ?? 4 mg at 09/16/18 0721 ? ? prochlorperazine (COMPAZINE) injection 10 mg ??10 mg Intravenous Q6H PRSanket Friedman MD ?? 10 mg at 09/15/18 2051 METHODS: A 21 channel digitized electroencephalogram was performed in the [facility] Clinical [facility]. The 10/20 international system of electrode placement was used and bipolar and referential electrode montages were recorded. ??In addition to EEG the patient was monitored for EKG and lateral/vertical eye movements. Video was recorded during the session. The duration of the recording was 30 minutes. PROFESSIONAL ADVISOR'S REPORT:Performed by: RR/CM Patient was not sleep [...] Angel MD Clinical Neurophysiology Fellow Personal Pager #[phone] Epilepsy Neurology #[id number] Neurology Attending I have personally reviewed the EEG, and I agree with the details as written. ?? The above report was formulated in discussion with me at the time of EEG reading, and I agree with it as documented. Jose Singer [place] [address] Pager: [phone], #[phone] Email: [email or web address] Javad Urban MD NEUROLOGY ORDERABLES * (ABNORMAL) Basic Metabolic Panel (non-fasting) (09/17/2018 9:02 AM EDT) Glucose 121 65 - 199 mg/dL [facility] Comment:Diabetes: >=200 mg/d L plus symptoms Blood Urea Nitrogen 9 8 - 18 mg/dL [facility] Creatinine 0.59(L) 0.70 - 1.20 mg/dL [facility] Sodium 144 135 - 145 mmol/L [facility] Potassium 2.9(Criti toy) 3.5 - 5.0 mmol/L [facility] Comment: Called by: maged/neda, Read back by: Aruna Calvo, Date/Time:09/17/18 10:19. Please note: ??Patients with WBC >100,000 may have falsely elevated Potassium levels. ??For accurate Potassium quantification in these patients send serum separator tube (gold top) for subsequent determinations. ??Contact the Clinical Chemistry Laboratory if there are any questions. Chloride 108(H) 98 - 107 mmol/L [facility] Carbon Dioxide 25 22 - 31 mmol/L [facility] Anion Gap 11 5 - 15 mmol/L [facility] Calcium 8.0(L) 8.5 - 10.5 mg/dL [facility] Est Glomerular Filtration Rate 106 >=60 mL/min/1. 73 m?? [facility] Comment: The eGFR was calculated using the CKD-EPI equation. As with all creatinine based estimates of kidney function, eGFR values calculated with the CKD-EPI equation are not accurate in patients with acute kidney failure, extremes of body mass or the acutely ill. [email or web address] eGFR 123 >=60 mL/min/1. 73 m?? [facility] Comment: The eGFR was calculated using the CKD-EPI equation. As with all creatinine based estimates of kidney function, eGFR values calculated with the CKD-EPI equation are not accurate in patients with acute kidney failure, extremes of body mass or the acutely ill. [email or web address] Blood specimen (specimen) 09/17/2018 9:02 AM EDT 09/17/2018 9:17 AM EDT Narrative Resulting Agency Comment Spec In Lab Javad Urban MD CHEMISTRY ORDERABLES Performing Organization Address [facility] Co de Phone Number [facility] [place] [address] * POCT Glucose (09/17/2018 7:33 AM EDT) Glucose, POC 136 65 - 199 mg/dL [facility] Comment: Supplemental ranges: <140 mg/dL before meals <180 mg/dL all other times of the day Blood specimen (specimen) 09/17/2018 7:33 AM EDT 09/17/2018 7:33 AM EDT Javad Urban MD POINT OF CARE TEST O RDERABLES Performing Organization Address [facility] Co de Phone Number [facility] [place] [address] * POCT Glucose (09/17/2018 3:29 AM EDT) Glucose, POC 126 65 - 199 mg/dL [facility] Comment: Supplemental ranges: <140 mg/dL before meals <180 mg/dL all other times of the day Blood specimen (specimen) 09/17/2018 3:29 AM EDT 09/17/2018 3:29 AM EDT Javad Urban MD POINT OF CARE TEST O RDERABLES Performing Organization Address [facility] Co de Phone Number [facility] [place] [address] * POCT Glucose (09/16/2018 11:25 PM EDT) Glucose, POC 123 65 - 199 mg/dL [facility] Comment: Supplemental ranges: <140 mg/dL before meals <180 mg/dL all other times of the day Blood specimen (specimen) 09/16/2018 11:25 PM EDT 09/16/2018 11:25 PM EDT Javad Urban MD POINT OF CARE TEST O JONY Performing Organization Address [facility]/ZIP Co de Phone Number [facility] [place] [address] * POCT Glucose (09/16/2018 8:29 PM EDT) Glucose, POC 114 65 - 199 mg/dL [facility] Comment: Supplemental ranges: <140 mg/dL before meals <180 mg/dL all other times of the day Blood specimen (specimen) 09/16/2018 8:29 PM EDT 09/16/2018 8:29 PM EDT Javad Urban MD POINT OF CARE TEST O JONY Performing Organization Address [facility]/ZIP Co de Phone Number [facility] [place] [address] * POCT Glucose (09/16/2018 3:35 PM EDT) Glucose, POC 106 65 - 199 mg/dL [facility] Comment: Supplemental ranges: <140 mg/dL before meals <180 mg/dL all other times of the day Blood specimen (specimen) 09/16/2018 3:35 PM EDT 09/16/2018 3:35 PM EDT Javad Urban MD POINT OF CARE TEST O JONY Performing Organization Address [facility]/ZIP Co de Phone Number [facility] [place] [address] * (ABNORMAL) Basic Metabolic Panel (non-fasting) (09/16/2018 3:33 PM EDT) Glucose 106 65 - 199 mg/dL [facility] Comment:Diabetes: >=200 mg/d L plus symptoms Blood Urea Nitrogen 13 8 - 18 mg/dL [facility] Creatinine 0.62(L) 0.70 - 1.20 mg/dL [facility] Sodium 147(H) 135 - 145 mmol/L [facility] Potassium 3.2(L) 3.5 - 5.0 mmol/L [facility] Comment: Please note: ??Patients with WBC >100,000 may have falsely elevated Potassium levels. ??For accurate Potassium quantification in these patients send serum separator tube (gold top) for subsequent determinations. ??Contact the Clinical Chemistry Laboratory if there are any questions. Chloride 112(H) 98 - 107 mmol/L [facility] Carbon Dioxide 22 22 - 31 mmol/L [facility] Anion Gap 13 5 - 15 mmol/L [facility] Calcium 8.1(L) 8.5 - 10.5 mg/dL [facility] Est Glomerular Filtration Rate 104 >=60 mL/min/1. 73 m?? [facility] Comment: The eGFR was calculated using the CKD-EPI equation. As with all creatinine based estimates of kidney function, eGFR values calculated with the CKD-EPI equation are not accurate in patients with acute kidney failure, extremes of body mass or the acutely ill. [email or web address] eGFR 121 >=60 mL/min/1. 73 m?? [facility] Comment: The eGFR was calculated using the CKD-EPI equation. As with all creatinine based estimates of kidney function, eGFR values calculated with the CKD-EPI equation are not accurate in patients with acute kidney failure, extremes of body mass or the acutely ill. [email or web address] Blood specimen (specimen) 09/16/2018 3:33 PM EDT 09/16/2018 3:49 PM EDT Narrative Resulting Agency Comment Spec In Lab Javad Urban MD CHEMISTRY ORDERABLES [facility] [place] [address] * Hemoglobin A1c (09/16/2018 3:33 PM EDT) Hemoglobin A1c 5.5 4.3 - 5.6 % [facility] Comment: Reference Range: 4.3 - [...] 1, S67-74 Estimated Average Glucose 111 mg/dL [facility] Comment: eAG equivalents for HbA1c [...] into estimated average glucose values. ??Diabetes Care 2008:31(8):3757-0285. Blood specimen (specimen) 09/16/2018 3:33 PM EDT 09/16/2018 3:49 PM EDT Narrative Resulting Agency Comment Spec In Lab Javad Urban MD CHEMISTRY ORDERABLES [facility] [place] [address] * XR Foot Min 3 views Bilat [...] contact the number below. Electronically signed by: TAMMIE Mackay [facility]([phone]), at 09/16/2018 3:47 PM Javad Urban MD IMG DX ORDERABLES * POCT Glucose (09/16/2018 1:56 PM EDT) Glucose, POC 126 65 - 199 mg/dL [facility] Comment: Supplemental ranges: <140 mg/dL before meals <180 mg/dL all other times of the day Blood specimen (specimen) 09/16/2018 1:56 PM EDT 09/16/2018 1:56 PM EDT Javad Urban MD POINT OF CARE TEST O RDERABLES [facility] [place] [address] * XR Fluoro No Rad <1Hr - OR Use (09/16/2018 1:10 PM EDT) Narrative RAD - 09/16/2018 1:11 PM EDT This order does not need a radiologist interpretation. ?? Javad Urban MD IMG FLUORO ORDERABLE S Performing Organization Address [facility] Co de Phone Number [place], [place] * POCT Glucose (09/16/2018 7:46 AM EDT) Glucose, POC 131 65 - 199 mg/dL [facility] Comment: Supplemental ranges: <140 mg/dL before meals <180 mg/dL all other times of the day Blood specimen (specimen) 09/16/2018 7:46 AM EDT 09/16/2018 7:46 AM EDT Javad Urban MD POINT OF CARE TEST O RDERABLES Performing Organization Address [facility] Co de Phone Number [facility] [place] [address] * Urine Hold (09/16/2018 6:07 AM EDT) Hold, Urine Sample in lab. [facility] Urine specimen (specimen) Urine / Unknown 09/16/2018 6:07 AM EDT 09/16/2018 6:54 AM EDT Sanket Freeman MD URINE ORDERABLES Performing Organization Address [facility] Co de Phone Number [facility] [place] [address] * (ABNORMAL) Urinalysis with reflex Culture (09/16/2018 6:07 AM EDT) Glucose, Urine Dipstick Negative Negative mg/dL [facility] Protein, Urine Dipstick Negative Negative mg/dL [facility] Bilirubin, Urine Dipstick Negative Negative mg/dL [facility] Comment: Clinical correlation required for positive Urine Bilirubin results as false positive may occur with some drugs and drug related products. If a false positive is suspected a serum total bilirubin should be considered if clinically indicated. Urobilinogen, Urine Dipstick Normal Normal mg/dL [facility] pH, Urn (dipstick) 6.0 5.0 - 8.0 [facility] Blood, Urine Dipstick Negative Negative mg/dL [facility] Ketone, Urine Dipstick 5(A) Negative mg/dL [facility] Nitrite, Urine Dipstick Negative Negative [facility] Leukocytes, Urine Dipstick Negative Negative [facility] Appearance, Urine Dipstick Clear Clear [facility] Specific [place] Urine Automated 1.012 1.002 - 1.030 [facility] Color, Urine Dipstick Straw Yellow [facility] Reflex to Culture No [facility] Urine specimen (specimen) 09/16/2018 6:07 AM EDT 09/16/2018 6:52 AM EDT Narrative Resulting Agency Comment Spec In Lab Javad Urban MD URINE ORDERABLES Performing Organization Address City/[facility]/ZIP Co de Phone Number [facility] [place] [address] * POCT Glucose (09/16/2018 3:30 AM EDT) Glucose, POC 126 65 - 199 mg/dL [facility] Comment: Supplemental ranges: <140 mg/dL before meals <180 mg/dL all other times of the day Blood specimen (specimen) 09/16/2018 3:30 AM EDT 09/16/2018 3:30 AM EDT Javad Urban MD POINT OF CARE TEST O RDERABLES Performing Organization Address City/[facility]/ZIP Co de Phone Number [facility] [place] [address] * POCT Glucose (09/15/2018 10:59 PM EDT) Glucose, POC 143 65 - 199 mg/dL [facility] Comment: Supplemental ranges: <140 mg/dL before meals <180 mg/dL all other times of the day Blood specimen (specimen) 09/15/2018 10:59 PM EDT 09/15/2018 10:59 PM EDT Javad Urban MD POINT OF CARE TEST O JONY Performing Organization Address [facility] Co de Phone Number [facility] [place] [address] * POCT Glucose (09/15/2018 8:10 PM EDT) Glucose, POC 100 65 - 199 mg/dL [facility] Comment: Supplemental ranges: <140 mg/dL before meals <180 mg/dL all other times of the day Blood specimen (specimen) 09/15/2018 8:10 PM EDT 09/15/2018 8:10 PM EDT Javad Urban MD POINT OF CARE TEST Rosie BORGES Performing Organization Address [facility] Co de Phone Number [facility] [place] [address] * POCT Glucose (09/15/2018 3:43 PM EDT) Glucose, POC 173 65 - 199 mg/dL [facility] Comment: Supplemental ranges: <140 mg/dL before meals <180 mg/dL all other times of the day Blood specimen (specimen) 09/15/2018 3:43 PM EDT 09/15/2018 3:43 PM EDT Javad Urban MD POINT OF CARE TEST O JONY Performing Organization Address City/[facility] Co de Phone Number [facility] [place] [address] * POCT Glucose (09/15/2018 12:05 PM EDT) Glucose, POC 177 65 - 199 mg/dL [facility] Comment: Supplemental ranges: <140 mg/dL before meals <180 mg/dL all other times of the day Blood specimen (specimen) 09/15/2018 12:05 PM EDT 09/15/2018 12:05 PM EDT Javad Urban MD POINT OF CARE TEST O JONY Performing Organization Address [facility] de Phone Number [facility] [place] [address] * (ABNORMAL) POCT Glucose (09/15/2018 7:39 AM EDT) Glucose, POC 206(H) 65 - 199 mg/dL [facility] Comment: Supplemental ranges: <140 mg/dL before meals <180 mg/dL all other times of the day Blood specimen (specimen) 09/15/2018 7:39 AM EDT 09/15/2018 7:39 AM EDT Javad Urban MD POINT OF CARE TEST O JONY Performing Organization Address [facility] de Phone Number [facility] [place] [address] * POCT Glucose (09/15/2018 4:12 AM EDT) Glucose, POC 141 65 - 199 mg/dL [facility] Comment: Supplemental ranges: <140 mg/dL before meals <180 mg/dL all other times of the day Blood specimen (specimen) 09/15/2018 4:12 AM EDT 09/15/2018 4:12 AM EDT Javad Urbna MD POINT OF CARE TEST O JONY Performing Organization Address [facility] Co de Phone Number [facility] [place] [address] * ABORH Recheck Status (09/15/2018 3:44 AM EDT) ABORH Recheck Order Order Placed [facility] ABORH Type Recheck Complete [facility] Blood specimen (specimen) 09/15/2018 3:44 AM EDT 09/15/2018 3:59 AM EDT Narrative Resulting Agency Comment Spec In Lab Ori Santos MD BLOOD BANK LAB ORDER MADHAVI Performing Organization Address City/[facility]/ZIP Co de Phone Number [facility] [place] [address] * Antibody screen (09/15/2018 3:44 AM EDT) Ab Screen Interp Negative [facility] Expires at [id number] on: 09/18/2018 [facility] Blood specimen (specimen) 09/15/2018 3:44 AM EDT 09/15/2018 3:59 AM EDT Narrative Resulting Agency Comment Spec In Lab Ori Santos MD BLOOD BANK LAB ORDER MADHAVI Performing Organization Address City/[facility] Co de Phone Number [facility] [place] [address] * ABO/Rh Typing (09/15/2018 3:44 AM EDT) ABORH Type A Pos [facility] Blood specimen (specimen) 09/15/2018 3:44 AM EDT 09/15/2018 3:59 AM EDT Narrative Resulting Agency Comment Spec In Lab Ori Santos MD BLOOD BANK LAB ORDER MADHAVI Performing Organization Address City/[facility]/ZIP Co de Phone Number [facility] [place] [address] * (ABNORMAL) Differential, Automated (09/15/2018 3:44 AM EDT) Neutrophil % 64.7 % [facility] Neutrophil Absolute 7.24(H) 1.70 - 6.10 x10(3)/mc L [facility] Lymph % 21.6 % [facility] Lymphocytes Abs 2.4 0.9 - 3.2 x10(3)/mc L [facility] Monocyte % 10.8 % [facility] Monocyte Abs 1.2(H) 0.3 - 0.9 x10(3)/[facility] Eos % 0.2 % [facility] Eosinophils Abs 0.0 0.0 - 0.4 x10(3)/[facility] Basophil % 0.4 % [facility] Baso Absolute 0.0 0.0 - 0.1 x10(3)/[facility] Immature Gran % 2.30 % [facility] Comment: Immature granulocytes(IG's)percentage and absolute count will include metamyelocytes, myelocytes, and promyelocytes. Blood smears from CBCs yielding IG's will be scanned manually for concordance. If this scan disagrees with the automated IG or if promyelocytes are noted, a manual differential will be performed. Immature Gran Absolute 0.26(H) 0.00 - 0.04 x10(3)/[facility] Blood specimen (specimen) 09/15/2018 3:44 AM EDT 09/15/2018 4:18 AM EDT Narrative Resulting Agency Comment Spec In Lab Ori Santos MD HEMATOLOGY ORDERABLE S [facility] [place] [place] [address] * (ABNORMAL) Hemogram (09/15/2018 3:44 AM EDT) White Blood Cell 11.2(H) 4.0 - 9.5 x10(3)/[facility] Red Blood Cell 3.05(L) 4.00 - 5.21 x10(6)/[facility] Hemoglobin 9.6(L) 11.7 - 15.5 gm/dL [facility] Hematocrit 29.5(L) 35.7 - 45.8 % [facility] Mean Cell Volume 96.7(H) 82.6 - 94.4 fL [facility] Mean Cell Hemoglobin 31.5 27.1 - 32.0 pg [facility] Mean Cell Hemoglobin Concentration 32.5 31.7 - 35.0 gm/dL [facility] Platelet 244 145 - 357 x10(3)/mc L [facility] RDW Standard Deviation 50.8(H) 37.0 - 46.0 fL [facility] RDW coefficient of variation 14.3(H) 11.5 - 14.1 % [facility] Mean Platelet Volume 10.9 7.6 - 12.9 fL [facility] NRBC% auto 0.0 % [facility] NRBC Absolute 0.000 0.000 - 0.000 x10(3)/mc L [facility] Blood specimen (specimen) 09/15/2018 3:44 AM EDT 09/15/2018 4:18 AM EDT Narrative Resulting Agency Comment Spec In Lab Ori Santos MD HEMATOLOGY ORDERABLE S Performing Organization Address City/[facility]/ZIP Co de Phone Number [facility] [place] [address] * Prothrombin Time (09/15/2018 3:44 AM EDT) Prothrombin Time 12.0 9.4 - 12.5 sec [facility] International Normalization Ratio 1.0 [facility] Comment: An INR <2.0 indicates [...] MD HEMATOLOGY ORDERABLE S Performing Organization Address City/[facility]/ZIP Co de Phone Number [facility] [place] [address] * (ABNORMAL) Basic Metabolic Panel (non-fasting) (09/15/2018 3:44 AM EDT) Glucose 135 65 - 199 mg/dL [facility] Comment:Diabetes: >=200 mg/d L plus symptoms Blood Urea Nitrogen 18 8 - 18 mg/dL [facility] Creatinine 0.74 0.70 - 1.20 mg/dL [facility] Sodium 142 135 - 145 mmol/L [facility] Potassium 3.6 3.5 - 5.0 mmol/L [facility] Comment: Please note: ??Patients with WBC >100,000 may have falsely elevated Potassium levels. ??For accurate Potassium quantification in these patients send serum separator tube (gold top) for subsequent determinations. ??Contact the Clinical Chemistry Laboratory if there are any questions. Chloride 113(H) 98 - 107 mmol/L [facility] Carbon Dioxide 20(L) 22 - 31 mmol/L [facility] Anion Gap 9 5 - 15 mmol/L [facility] Calcium 7.9(L) 8.5 - 10.5 mg/dL [facility] Est Glomerular Filtration Rate 94 >=60 mL/min/1. 73 m?? [facility] Comment: The eGFR was calculated using the CKD-EPI equation. As with all creatinine based estimates of kidney function, eGFR values calculated with the CKD-EPI equation are not accurate in patients with acute kidney failure, extremes of body mass or the acutely ill. [email or web address] eGFR 109 >=60 mL/min/1. 73 m?? [facility] Comment: The eGFR was calculated using the CKD-EPI equation. As with all creatinine based estimates of kidney function, eGFR values calculated with the CKD-EPI equation are not accurate in patients with acute kidney failure, extremes of body mass or the acutely ill. [email or web address] [email or web address] Blood specimen (specimen) 09/15/2018 3:44 AM EDT 09/15/2018 4:18 AM EDT Narrative Resulting Agency Comment Spec In Lab Javad Urban MD CHEMISTRY ORDERABLES Performing Organization Address [facility] de Phone Number [facility] [place] [address] * POCT Glucose (09/14/2018 9:52 PM EDT) Glucose, POC 124 65 - 199 mg/dL [facility] Comment: Supplemental ranges: <140 mg/dL before meals <180 mg/dL all other times of the day Blood specimen (specimen) 09/14/2018 9:52 PM EDT 09/14/2018 9:52 PM EDT Javad Urban MD POINT OF CARE TEST O RDERABLES Performing Organization Address [facility] de Phone Number [facility] [place] [address] * Film Library- Storage Only MR Head (09/13/2018 12:10 AM EDT) Narrative [facility] - 09/15/2018 10:49 AM EDT This exam is auto-finalizing. It's purpose is for storage only. Jvaad Urban MD IMG FILM LIBRARY ORD ERABLES Performing Organization Address [facility] de Phone Number [place], [place] * Film Library- Storage Only Ultrasound Study (09/13/2018 12:05 AM EDT) Narrative [facility] - 09/15/2018 10:47 AM EDT This exam is auto-finalizing. It's purpose is for storage only. Javad KINGG FILM LIBRARY ORD ERABLES Performing Organization Address [facility] de Phone Number [place], [place] * Film Library- Storage Only DX Chest (09/13/2018 12:00 AM EDT) Narrative [facility] - 09/15/2018 10:46 AM EDT This exam is auto-finalizing. It's purpose is for storage only. Javad Urban MD IMG FILM LIBRARY ORD ERABLES [facility] [place] documented in this encounter Visit Diagnoses [...] Until Discontinued 0501 (Given - Provider: Fely Fremean RN)1157 (Given - Provider: Mai Bose RN)[id number] [...] Duenas RN) 0904 (Given - Provider: Tiana LujanUJLI) simvastatin (ZOCOR) tablet 20 mg 20 mg, [...] Routine documented in this encounter Care Teams Information Systems Specialist Relationship Specialty Start Date End Date None None PCP - General 09/14/18 09/30/18 documented as of this encounter
--- OUTSIDE RECORDS SUMMARY | 2024-05-10 15:53 | XMS_ITS | Encounter Summary ---
Author Organization [facility] [place] [address] Care Team Providers Care Silo Painter Name Role Phone Yamile De Leon PLUMBING ENGINEER Primary Care Provider [phone] Reason for Visit * Reason Comments Foot Pain ORIF METATARSAL FX, EACH (WRVU 7.44) (Bilateral DOS 09/16/2018 Encounter Details Date Type Department Care Team (Late st Contact Info) Description 11/08/2018 2:30 PM EDT [place] [address] Cast discomfort Social History Tobacco Use Types [...] 3.24) performed by Aparna Reed MD at [facility] MAIN OR ??? PRO OPEN TREATMENT METATARSAL FRACTURE EACH Bilateral 09/16/2018 ORIF METATARSAL FX, EACH (WRVU 7.44) performed by Aparna Reed MD at [facility] MAIN OR ??? PRO OPEN TREATMENT TARSOMETATARSAL JOINT DISLOCATION Right 09/16/2018 OPEN TREAMENT TARSOMETATARSAL JOINT DISLOCATION (WRVU 10.7) performed by Aparna Reed MD at [facility] MAIN OR ??? PRO OPEN TX FRACTURE GREAT TOE/PHALANX/PHALANGES Right 09/16/2018 ORIF GREAT TOE (WRVU 7.44) performed by Aparna Reed MD at [facility] MAIN OR ??? PRO PERCUT TREAT METATARSAL FX Left 09/16/2018 PERCUTANEOUS PINNING, METATARSAL FX, EA. (WRVU 3.6) performed by Aparna Reed MD at [facility] MAIN OR ??? PRO PERCUT TREAT TAR-METATAR FOOT DISLOC Right 09/16/2018 PERCUTANEOUS PINNING, TARSOMETATARSAL JOINT DISLOCATION (WRVU 5.09) performed by Aparna Reed MD at [facility] MAIN OR ??? SHOULDER ARTHROSCOPY Bilateral [...] file Gets together: Not on file Attends jewish service: Not on file Active member of [...] ?? Chad Campo MD Orthopaedic Surgery Pager: [phone] ? * Leta Mitchell Jessica - 11/08/2018 [...] aftercare documented in this encounter Care Teams Silo Painter Relationship Specialty Start Date End Date Yamile De Leon APRN PCP - General Family Medicine 10/01/18 11/19/23 documented as of this encounter
--- OUTSIDE RECORDS SUMMARY | 2024-05-10 15:53 | XMS_ITS | Encounter Summary ---
Author Organization [facility] Address [facility] [place] [address] Care Team Providers Care Edge Stitcher Name Role Phone Yamile De Leon APRN Primary Care Provider [phone] Encounter Details Date Type Department Care Team (Late st Contact Info) Description 12/20/2018 Ancillary Procedure Radiology Library at [facility] [place] [address] Aparna Reed MD [facility] [place] [address] Social History Tobacco Use Types Packs/Day Years [...] MD IMG FILM LIBRARY ORD ERABLES DH [place], [place] documented in this encounter Visit Diagnoses Not on filedocumented in this encounter Care Teams Edge Stitcher Relationship Specialty Start Date End Date Yamile De Leon APRN PCP - General Family Medicine 10/01/18 11/19/23 documented as of this encounter
--- OUTSIDE RECORDS SUMMARY | 2024-05-10 15:53 | XMS_ITS | Encounter Summary ---
Author Organization [facility] [place] [address] Care Team Providers Care Health Club Attendant Name Role Phone Yamile De Leon APRN Primary Care Provider [phone] Reason for Referral * Consultation (Routine) - Closed Specialty Diagnoses / Procedures Referred By Bruce galo Referred To Contact Dermatology Diagnoses Breast lesion Yamile De Leon APRN [address] [place] [address] [facility] Dermatology [address] [place] [address] Referral ID Status Reason Start Date Expiration Date V isits Requested Visits Authorized [id number] Closed Consult, Test & Treat PCP Updated and/or Approved 10/11/2021 10/11/2022 6 6 Encounter Details Date Type Department Care Team (Late st Contact Info) Description 10/11/2021 Transcribe Orders eDH Incoming Referrals [phone] Yamile De Leon APRN [address], [place] [id number] Breast lesion Social History Tobacco Use Types [...] disorder documented in this encounter Care Teams Health Club Attendant Relationship Specialty Start Date End Date Yamile De Leon APRN PCP - General Family Medicine 10/01/18 11/19/23 documented as of this encounter
--- OUTSIDE RECORDS SUMMARY | 2024-05-10 15:53 | XMS_ITS | Encounter Summary ---
Author Organization [facility] Address [facility] [place] [address] Care Team Providers Care Hospital Fellow Name Role Phone None Primary Care Provider Unavailabl e Encounter Details Date Type Department Care Team (Late st Contact Info) Description 09/20/2018 Orders [place] [address] Buffy Comer PA [facility] [place] [address] S/P ORIF bilateral foot fractures, 09/16/18 (Gitajn) [...] (Gitajn) documented in this encounter Care Teams Hospital Fellow Relationship Specialty Start Date End Date None None PCP - General 09/14/18 09/30/18 documented as of this encounter
--- OUTSIDE RECORDS SUMMARY | 2024-05-10 15:53 | XMS_ITS | Encounter Summary ---
Author Organization [facility] Address [facility] [place] [address] Care Team Providers Care Account Installation Specialist Name Role Phone Yamile De Leon APRN Primary Care Provider [phone] Encounter Details Date Type Department Care Team (Late st Contact Info) Description 10/08/2018 Notes [place] [address] Mary Ellison PA [facility] DR ORTHOPAEDIC SURGERY [place] [id number] Social History Tobacco Use Types Packs/Day Years [...] NAME: Jenae La AGE: 53 y.o. MR#: [id number] DATE OF VISIT: 10/08/2018 CHIEF COMPLAINT: Hospital [...] other questions or concerns. [facility] Mary Ellison PA-C The above dictation was made with voice recogonition software documented in this encounter Plan of Treatment Not on file documented as of this encounter Visit Diagnoses Not on filedocumented in this encounter Care Teams Account Installation Specialist Relationship Specialty Start Date End Date Yamile De Leon APRN PCP - General Family Medicine 10/01/18 11/19/23 documented as of this encounter
--- OUTSIDE RECORDS SUMMARY | 2024-05-10 15:53 | XMS_ITS | Encounter Summary ---
Author Organization [facility] Address [facility] [place] [address] Care Team Providers Care Public Opinion Survey Taker Name Role Phone Yamile De Leon APRN Primary Care Provider [phone] Reason for Visit * Reason Comments Medication Refill Encounter Details Date Type Department Care Team (Late st Contact Info) Description 07/13/2022 Refill Dermatology at [facility] [address] [place] [address] Charlie Bowser MD [facility] [address] [place] [address] Prurigo nodularis Social History Tobacco Use Types [...] chronicus documented in this encounter Care Teams Public Opinion Survey Taker Relationship Specialty Start Date End Date Yamile De Leon APRN PCP - General Family Medicine 10/01/18 11/19/23 documented as of this encounter
--- OUTSIDE RECORDS SUMMARY | 2024-05-10 15:53 | XMS_ITS | Encounter Summary ---
[place] [address] Care Team Providers Care Sheet Pile Driver Operator Name Role Phone Yamile De Leon APRN Primary Care Provider [phone] Encounter Details Date Type Department Care Team [...] on filedocumented in this encounter Care Teams Sheet Pile Driver Operator Relationship Specialty Start Date End Date Yamile De Leon APRN PCP - General Family Medicine 10/01/18 11/19/23 documented as of this encounter
--- OUTSIDE RECORDS SUMMARY | 2024-05-10 15:53 | XMS_ITS | Encounter Summary ---
Author Organization [facility] [address] Care Team Providers Care Prison Guard Name Role Phone Yamile De Leon APRN Primary Care Provider [phone] Encounter Details Date Type Department Care Team (Late st Contact Info) Description 10/08/2018 10:45 AM EDT Office Visit [place] [address] Cast discomfort Social History Tobacco Use Types [...] aftercare documented in this encounter Care Teams Prison Guard Relationship Specialty Start Date End Date Yamile De Leon APRN PCP - General Family Medicine 10/01/18 11/19/23 documented as of this encounter
--- OUTSIDE RECORDS SUMMARY | 2024-05-10 15:53 | XMS_ITS | Encounter Summary ---
Author Organization [facility] Address [facility] [place] [address] Care Team Providers Care Artist Suspect Name Role Phone Yamile De Leon APRN Primary Care Provider [phone] Encounter Details Date Type Department Care Team (Late st Contact Info) Description 03/30/2019 Telephone [place] [address] Javad Urban MD [facility] DR ORTHOPAEDIC SURGERY [place] [phone] Social History Tobacco Use Types Packs/Day Years [...] care. Will fax signed paperwork back to [phone]. documented in this encounter Plan of Treatment Not on file documented as of this encounter Visit Diagnoses Not on filedocumented in this encounter Care Teams Artist Suspect Relationship Specialty Start Date End Date Yamile De Leon APRN PCP - General Family Medicine 10/01/18 11/19/23 documented as of this encounter
--- OUTSIDE RECORDS SUMMARY | 2024-05-10 15:53 | XMS_ITS | Encounter Summary ---
Author Organization [facility] Address [facility] [place] [address] Care Team Providers Care Educational Coordinator Name Role Phone Yamile De Leon APRN Primary Care Provider [phone] Reason for Visit * Reason Comments Foot Injury XR, ORIF Bilateral F oot Fx 09/16/18 (Lanettejrachael) Encounter Details Date Type Department Care Team (Late st Contact Info) Description 10/25/2018 11:30 AM EDT Office [place] [address] Aparna Reed MD [facility] [address] [place] [address] S/P ORIF bilateral foot fractures, 09/16/18 (Kamilaajrachael) [...] been doing well at home, non-weight bearing. [facility] FollowUp 10/01/2018 Health in general Good Quality [...] (Brianna) documented in this encounter Care Teams Educational Coordinator Relationship Specialty Start Date End Date Yamile De Leon APRN PCP - General Family Medicine 10/01/18 11/19/23 documented as of this encounter
--- OUTSIDE RECORDS SUMMARY | 2024-05-10 15:53 | XMS_ITS | Encounter Summary ---
Author Organization [facility] Address [facility] [place] [address] Care Team Providers Care Ekg/Ecg Technician Name Role Phone Yamile De Leon CARLOS Primary Care Provider [phone] Reason for Visit * Consultation (Routine) - Closed Specialty Diagnoses / Procedures Referred By Bruce galo Referred To Contact Dermatology Diagnoses Breast lesion Whitney Vanegas PA [address] [place] [address] [facility] Dermatology [address] [place] [address] Referral ID Status Reason Start Date Expiration Date V isits Requested Visits Authorized [id number] Closed Consult, Test & Treat PCP Updated and/or Approved 01/02/2022 01/02/2023 12 12 Encounter Details Date Type Department Care Team (Late st Contact Info) Description 06/24/2022 4:00 PM EST Office Visit Dermatology at [facility] [address] [place] [address] Charlie Bowser MD [facility] [place] [address] Prurigo nodularis (Primary Dx) Social History Tobacco [...] prurigo nodularis follow up []Note routed to clean rice broker []Recall placed in scheduling system [x]Appointment scheduled at checkout Scribe attestation: TARI Felton has performed the documentation for this encounter in thepresence of and acting as a scribe for Charlie Bowser MD. I performed the above scribed service and agree with the accuracy of the documentation in this encounter. Reviewed and signed by: Charlie Bowser MD Dermatology [facility] Patient seen and evaluated with staff consumer education specialist: Kirsten Lantigua MD Department of Dermatology [facility] * Kirsten Lantigua MD - 06/24/2022 4:00 [...] chronicus documented in this encounter Care Teams Ekg/Ecg Technician Relationship Specialty Start Date End Date Yamile De Leon APRN PCP - General Family Medicine 10/01/18 11/19/23 documented as of this encounter
--- OUTSIDE RECORDS SUMMARY | 2024-05-10 15:53 | XMS_ITS | Encounter Summary ---
Author Organization [facility] Address [facility] [place] [address] Care Team Providers Care Logistics Vice President Name Role Phone Yamile De Leon APRN Primary Care Provider [phone] Reason for Visit * Reason Onset Date Comments Questions 10/27/2018 Encounter Details Date Type Department Care Team (Late st Contact Info) Description 10/27/2018 Telephone [place] [address] Aparna Reed MD [facility] [place] [address] Questions Social History Tobacco Use Types Packs/Day [...] was the Surgeon?Brianna Best call back number: [phone] Best time to call back between 8:00 am & 5:00 pm: anytime Can we leave a message? yes What is the question: questions about her cast? Can she go into an air cast now? The cast she is innow are too heavy. She would like to transfer of care to [facility] sooner rather than later due to transportation issues. documented in this encounter Plan of Treatment Not on file documented as of this encounter Visit Diagnoses Not on filedocumented in this encounter Care Teams Logistics Vice President Relationship Specialty Start Date End Date Yamile De Leon APRN PCP - General Family Medicine 10/01/18 11/19/23 documented as of this encounter
--- OUTSIDE RECORDS SUMMARY | 2024-05-10 15:53 | XMS_ITS | Encounter Summary ---
Author Organization [facility] Address [facility] [place] [address] Care Team Providers Care Manager Financial Reporting Name Role Phone Yamile De Leon APRN Primary Care Provider [phone] Encounter Details Date Type Department Care Team (Late st Contact Info) Description 10/21/2018 Orders [place] [address] Aparna Reed MD [facility] [place] [address] S/P ORIF bilateral foot fractures, 09/16/18 (Brianna) [...] number below. ? Electronically signed by: Gretchen Odell [facility] ([phone]), at 10/25/2018 3:36 PM Narrative 10/25/2018 3:36 [...] internal fixation of a Lisfranc fracture-dislocation with usftw-osr-kboil constructs traversing the first and second tarsometatarsal joints and 3 Yaw wires traversing the third through fifth tarsometatarsal joints. Also status post dlcmhlfga-dpr-cwzlu fixation of an intra-articular first proximal phalangeal [...] fractures and a Lisfranc fracture-dislocation with a qtlxh-dsp-kfblv construct traversing the fourth metatarsal base fracture [...] internal fixation of a Lisfranc fracture-dislocation with knkvy-hyp-iiylm constructs traversing the firstand second tarsometatarsal joints and 3 Yaw wires traversing the thirdthrough fifth tarsometatarsal joints. Also status post szspmidxf-ltu-jovxvxswdisto of an intra-articular first proximal phalangeal base [...] neck fractures and a Lisfranc fracture-dislocation with zahtzi-dnr-egnbx construct traversing the fourth metatarsal base fracture [...] number below. Electronically signed by: Gretchen Odell [facility] ([phone]),at 10/25/2018 3:36 PM Aparna Reed MD IMG DX ORDERABLES documented in this encounter Visit Diagnoses Diagnosis S/P ORIF bilateral foot fractures, 09/16/18 (Brianna) S/P ORIF bilateral foot fractures, 09/16/18 (Brianna) documented in this encounter Care Teams Manager Financial Reporting Relationship Specialty Start Date End Date Yamile De Leon APRN PCP - General Family Medicine 10/01/18 11/19/23 documented as of this encounter
--- OUTSIDE RECORDS SUMMARY | 2024-05-10 15:53 | XMS_ITS | Encounter Summary ---
Author Organization [facility] Address [facility] [place] [address] Care Team Providers Care Global Product Manager Name Role Phone Yamile De Leon APRN Primary Care Provider [phone] Reason for Visit * Reason Comments Follow-up Encounter Details Date Type Department Care Team (Late st Contact Info) Description 11/08/2018 1:00 PM EDT Office [place] [address] German Gu III, MD [facility] [place] [address] Abdirahman Enamorado MD [facility] [place] [address] Hospital discharge follow-up Social History Tobacco Use [...] - 11/08/2018 1:00 PM EDT NEUROLOGY CLINIC [facility] [place] [address] Facsimile: Neurology Initial Visit: 11/08/2018 Patient name: Jenae La Date of : 1965 CC: Post hospital follow-up for possible seizure-like activity Jenae La is seen today for follow-up regarding possible seizure-like activity while [facility]. HPI: Jenae La is a 53 y.o. female with past medical history significant for type 2 diabetes, fibromyalgia, chronic opiate use, obstructive sleep apnea (on CPAP at home) who was seen by the neurology consult service in August 2018 for possible seizure-like activity. Patient was admitted to the orthopedic service after transfer from [facility] for bilateral ankle fractures. Per description of her presentation to [facility] patient possibly had seizure-like activity and wasstarted [...] file Gets together: Not on file Attends sabianism service: Not on file Active member of [...] MD Neurology Resident - PGY-3 Personal Pager: [phone] 11/08/2018 Neurology Attending Attestation I saw and [...] as documented. German Gu III, MD Pager: [phone] 3:14 PM 11/08/2018 documented in this encounter Plan of Treatment Not on file documented as of this encounter Visit Diagnoses Diagnosis Hospital discharge follow-up Other follow-up examination documented in this encounter Care Teams Global Product Manager Relationship Specialty Start Date End Date Yamile De Leon APRN PCP - General Family Medicine 10/01/18 11/19/23 documented as of this encounter
--- OUTSIDE RECORDS SUMMARY | 2024-05-10 15:53 | XMS_ITS | Encounter Summary ---
Author Organization [facility] Address [facility] [place] [address] Care Team Providers Care Cash Posting Specialist Name Role Phone Yamile De Leon APRN Primary Care Provider [phone] Encounter Details Date Type Department Care Team (Late st Contact Info) Description 01/27/2019 6:20 PM EDT Ancillary Procedure Radiology Library at [facility] [place] [address] Aparna Reed MD [facility] [address] Social History Tobacco Use Types Packs/Day Years [...] IMG FILM LIBRARY ORD ERABLES DH RAD [place], [place] documented in this encounter Visit Diagnoses Not on filedocumented in this encounter Care Teams Cash Posting Specialist Relationship Specialty Start Date End Date Yamile De Leon APRN PCP - General Family Medicine 10/01/18 11/19/23 documented as of this encounter
--- OUTSIDE RECORDS SUMMARY | 2024-05-10 15:53 | XMS_ITS | Encounter Summary ---
Author Organization [facility] Address [facility] [place] [address] Care Team Providers Care Furnace Clerk Name Role Phone Yamile De Leon APRN Primary Care Provider [phone] Reason for Visit * Reason Comments Follow Up Surgery ORIF bilat foot fx, DOS 09.16.18 Encounter Details Date Type Department Care Team (Late st Contact Info) Description 10/01/2018 11:00 AM EDT Office [place] [address] Mary Ellison PA [facility] DR ORTHOPAEDIC SURGERY [place] [id number] S/P ORIF bilateral foot fractures, 09/16/18 (Gitajn) [...] NAME: Jenae La AGE: 53 y.o. MR#: [id number] DATE OF VISIT: 10/01/2018 CHIEF COMPLAINT: Hospital [...] drenching night sweats. She has been using Raymond for pain relief and using Lovenox for [...] (Gitajn) documented in this encounter Care Teams Furnace Clerk Relationship Specialty Start Date End Date Yamile De Leon APRN PCP - General Family Medicine 10/01/18 11/19/23 documented as of this encounter
--- OUTSIDE RECORDS SUMMARY | 2024-05-10 15:53 | XMS_ITS | Encounter Summary ---
Author Organization [facility] Address [facility] [place] [address] Care Team Providers Care Project Geophysicist Name Role Phone Yamile De Leon APRN Primary Care Provider [phone] Encounter Details Date Type Department Care Team (Latest Contact Info) Description 10/25/2018 9:58 AM EDT - 10/25/2018 11:59 PM EDT Hospital Encounter XRay at [address] [place] [address] Aparna Reed MD [facility] [place] [address] S/P ORIF bilateral foot fractures, 09/16/18 (Brianna) [...] please contact the number below. ? Narrative 10/25/2018 3:36 PM EDT EXAMINATION: XR [...] internal fixation of a Lisfranc fracture-dislocation with gunvk-kdh-hewtd constructs traversing the first and second tarsometatarsal joints and 3 Yaw wires traversing the third through fifth tarsometatarsal joints. Also status post rdxqhfbdh-qmo-ficha fixation of an intra-articular first proximal phalangeal [...] fractures and a Lisfranc fracture-dislocation with a zsmlb-vqi-qhcjl construct traversing the fourth metatarsal base fracture [...] internal fixation of a Lisfranc fracture-dislocation with wyjfg-zvv-qfvyd constructs traversing the firstand second tarsometatarsal joints and 3 Yaw wires traversing the thirdthrough fifth tarsometatarsal joints. Also status post rlqxausjp-sfn-ignjbhrbwxuzb of an intra-articular first proximal phalangeal base [...] neck fractures and a Lisfranc fracture-dislocation with xmrgde-nso-fgsgv construct traversing the fourth metatarsal base fracture [...] number below. Electronically signed by: Gretchen Odell [facility] ([phone]),at 10/25/2018 3:36 PM Aparna Reed MD IMG DX ORDERABLES documented in this encounter Visit Diagnoses Diagnosis S/P ORIF bilateral foot fractures, 09/16/18 (Brianna) documented in this encounter Care Teams Project Geophysicist Relationship Specialty Start Date End Date Yamile De Leon APRN PCP - General Family Medicine 10/01/18 11/19/23 documented as of this encounter
--- OUTSIDE RECORDS SUMMARY | 2024-05-10 15:53 | XMS_ITS | Encounter Summary ---
Author Organization [facility] Address [facility] [place] [address] Care Team Providers Care Nascar Pit Crew Person Name Role Phone Yamile De Leon APRN Primary Care Provider [phone] Encounter Details Date Type Department Care Team (Late st Contact Info) Description 11/22/2018 Ancillary Procedure Radiology Library at [facility] [place] [address] Aparna Reed MD [facility] [place] [address] Social History Tobacco Use Types Packs/Day Years [...] MD IMG FILM LIBRARY ORD ERABLES DH [place], [place] documented in this encounter Visit Diagnoses Not on filedocumented in this encounter Care Teams Nascar Pit Crew Person Relationship Specialty Start Date End Date Yamile De Leon APRN PCP - General Family Medicine 10/01/18 11/19/23 documented as of this encounter
--- OUTSIDE RECORDS SUMMARY | 2024-05-10 15:53 | XMS_ITS | Encounter Summary ---
[place] [address] Care Team Providers Care Hot Shot Name Role Phone Yamile De Leon APRN Primary Care Provider [phone] Reason for Visit * Reason Onset Date Comments Medication Problem 10/12/2018 ? Lovenox dis continuation date Encounter Details Date Type Department Care Team (Late st Contact Info) Description 10/12/2018 Telephone [place] [phone] Daja Gregorio RN Medication Problem (? Lovenox [...] to be sent to Saniya Smith in [place], [place] Concerns communicated to LILLY Eden via In Basket. documented in this encounter Plan of Treatment Not on file documented as of this encounter Visit Diagnoses Not on filedocumented in this encounter Care Teams Hot Shot Relationship Specialty Start Date End Date Yamile De Leon APRN PCP - General Family Medicine 10/01/18 11/19/23 documented as of this encounter
--- OUTSIDE RECORDS SUMMARY | 2024-05-10 15:53 | XMS_ITS | Encounter Summary ---
Author Organization [facility] Address [facility] [place] [address] Care Team Providers Care Configuration Management Consultant Name Role Phone Yamile De Leon CARLOS Primary Care Provider [phone] Encounter Details Date Type Department Care Team (Latest Contact Info) Description 10/01/2018 8:59 AM EDT - 10/01/2018 11:59 PM EDT Hospital Encounter XRay at [address] [place] [address] Javad Urban MD [facility] [place] [address] S/P ORIF bilateral foot fractures, 09/16/18 (Gitajn) [...] (Gitajn) documented in this encounter Care Teams Configuration Management Consultant Relationship Specialty Start Date End Date Yamile De Leon CARLOS PCP - General Family Medicine 10/01/18 11/19/23 documented as of this encounter
--- OUTSIDE RECORDS SUMMARY | 2024-05-10 15:53 | XMS_ITS | Encounter Summary ---
Author Organization [facility] [place] [address] Care Team Providers Care Evening Or Night Nurse Supervisor Name Role Phone Yamile De Leon APRN Primary Care Provider [phone] Reason for Visit * Reason Onset Date Comments Other 02/03/2019 Home Health Encounter Details Date Type Department Care Team (Late st Contact Info) Description 02/03/2019 [place] [phone] Crista Warner RN Other (Home Health) Social [...] signed by provider and faxed back to [facility] ( ). Form in Scan Doc. documented in this encounter Plan of Treatment Not on file documented as of this encounter Visit Diagnoses Not on filedocumented in this encounter Care Teams Evening Or Night Nurse Supervisor Relationship Specialty Start Date End Date Yamile De Leon APRN PCP - General Family Medicine 10/01/18 11/19/23 documented as of this encounter
--- OUTSIDE RECORDS SUMMARY | 2024-05-10 15:54 | XMS_ITS | Encounter Summary ---
Author Organization [facility] [place] [address] Care Team Providers Care Certified Wellness Program Coordinator Name Role Phone Unavailable Primary Care Provider Unavailabl e Encounter Details Date Type Department Care Team (Late st Contact Info) Description 09/13/2018 12:10 AM EDT Ancillary Procedure Radiology Library at [facility] [place] [phone] Social History Tobacco Use Types Packs/Day Years [...]
--- OUTSIDE RECORDS SUMMARY | 2024-05-10 15:54 | XMS_ITS | Encounter Summary ---
Author Organization [facility] Address [facility] [place] [address] Care Team Providers Care Wheel Alignment Technician Name Role Phone Unavailable Primary Care Provider Unavailabl e Encounter Details Date Type Department Care Team (Late st Contact Info) Description 09/12/2018 12:05 AM EDT Ancillary Procedure Radiology Library at [facility] [place] [phone] Aparna Reed MD [facility] [place] [address] Social History Tobacco Use Types Packs/Day Years [...] Reed MD IMG FILM LIBRARY ORD ERABLES [facility] [place] documented in this encounter Visit Diagnoses Not on filedocumented in this encounter
--- OUTSIDE RECORDS SUMMARY | 2024-05-10 15:54 | XMS_ITS | Encounter Summary ---
Author Organization [facility] Address [facility] [place] [address] Care Team Providers Care Pharmacy Picking Tech Name Role Phone None Primary Care Provider Unavailabl e Reason for Visit * Auth/Cert Specialty Diagnoses / Procedures Referred By Contac t Referred To Contact Diagnoses Fracture of unspecified tarsal bone(s) of unspecified foot, initial encounter for closed fracture CLOSED HEAD INJURY, FOOT BONE FX'S -CONFUSED Procedures EMERGENCY IPI Referral ID Status Reason Start Date Expiration Date Visits Re quested Visits Authorized [id number] 1 1 Encounter Details Date Type Department Care Team (Late st Contact Info) Description 09/16/2018 9:58 AM EDT - 09/16/2018 12:57 PM EDT [place] [id number] Aparna Reed MD [facility] [place] [address] ORIF METATARSAL FX, EACH (WRVU 7.44) Social [...] Jenae La Patient Age: 53 y.o. Language: Sri Lankan Race: White Ethnicity: Not nor Admit date: 09/14/2018 Discharge date and time: 09/20/2018 Attending Physician: Javad Urban MD Discharge Physician: Javad Urban MD Follow-up Recommendations for Providers: See discharge instructions for additional details. Future Appointments Date Time Provider Department Center 10/01/2018 10:00 AM [facility] DX ROOM 1 Xray [facility] 10/01/2018 11:00 AM Mary Ellison PA [facility] Ortho 3C [facility] 11/08/2018 1:00 PM Abdirahman Enamorado MD [facility] Neuro [facility] Inpatient Provider Contact Information: Javad Urban MD Orthopedics: [phone] After hours and weekends, call [facility] Inspector And Adjuster [employer] [place], , and have the Orthopedic resident paged. [...] the orthopaedics service as a transfer from [facility] for operative management of bilateral complex [...] multiple times, leading her to present to [facility] on 09/12/2018 for evaluation. ?? Initial work-up at [facility] revealed sepsis secondary to suspected community- acquired pneumonia, mild acute exacerbation of COPD, a closed head injury with postconcussive syndrome, multiple bilateral foot fractures, and MANUEL, resulting in hospital admission. Upon presentation to the [facility] ED, her and herjake reported [...] no active bleeding observed. General Surgery at [facility] evaluated the patient, and felt no further action was required besides outpatient follow up. ?? Upon arrival to [facility], Mrs. La reports moderate pain in her [...] Orthopedic Surgery Service as a transfer from [facility] for definitive operative management of [...] demonstrated seizure-like activity during her presentation at [facility], thus would recommend consulting Neurology to determine??the need for an EEG to rule out sub-clinical seizure and determine the need to continue keppra. The patient's revised cardiac risk index is a Class I risk (0 points) with a 3.9% 30 day risk of , AR, or cardiac arrest. No further cardiac work [...] a transfer to the orthopedic service from [facility] for bilateral complex foot fractures. [...] number below. Electronically signed by: TAMMIE Mackay [facility] ([phone]), at 09/14/2018 4:41 PM Xr Foot Min [...] Discharge to: Home HOME HEALTH CARE AGENCY: ??[facility] ?? PHONE: [phone] FAX: [phone] Updated Allergies/ADRs: Allergies Allergen Reactions ??? Sulfa [...] bowel movement. You can also take an fjal-yjh-cvybejp medication, Miralax if needed to combat constipation. [...] skin and wound problems. Call your doctor ([phone]) if you develop: 1. Fever greater than [...] 1. You will have follow-up appointments at [facility] as indicated in Future Appointment and Orders. You will have an xray prior to those appointments so please come to Radiology, desk 3T, 1 hour BEFORE your appointment for those x-rays. Future Appointments Date Time Provider Department Center 10/01/2018 10:00 AM [facility] DX ROOM 1 Xray [facility] 10/01/2018 11:00 AM Mary Ellison PA Le[facility] Ortho 3C [facility] 11/08/2018 1:00 PM Abdirahman Enamorado MD Leb Neuro [facility] If you have questions or concerns: [...] Provider Department Dept Phone 10/01/2018 10:00 AM [facility] DX ROOM 1 XRay at [place] Arrive at: [facility] Area [phone] Please go to [facility] 3T ([place] Location). 10/01/2018 11:00 AM Mary Ellison PA Orthopaedics at [place] Arrive at: [facility] 3C [phone] 11/08/2018 1:00 PM Abdirahman Enamorado MD Neurology at [place] Arrive at: [facility] [phone] Future Orders Complete By Expires Durable Medical Equipment Order [EQ148 Custom] As directed Process Instructions: Scheduling Instructions: Comments: Non weight bearing bilateraly Questions: Name/Description of requested item: Drop arm commode Size requested: 20 Vendor Name/Contact information: [facility] Durable Medical Equipment Order [EQ148 Custom] As [...] Instructions: Scheduling Instructions: Comments: [address] [facility] [phone] (home) No relevant phone numbers on file. Diagnosis:Bilateral fractures both feet requiring surgery Non weight barring Patient's: Hgt: 5'1 Wgt: 183 VENDOR: [employer] Ordering: Drop arm commode needed ARABELLA is required for discharge Questions: Name/Description of requested item: Drop arm Commode Size requested: Standard Vendor Name/Contact information: [employer] Referral to Home Health - at DISCHARGE [[id number] CPT(R)] As directed Process Instructions: Scheduling Instructions: Comments: DOCUMENTATION FOR VNA SERVICES (INCLUDING THOSE PATIENTS WITH MEDICARE COVERAGE REQUIRING HOME VNA SERVICES AND/OR HOSPICE SERVICES) PATIENT'S LOCATION: [address] [facility] [address] (home) Cell: No relevant phone numbers on file. Production Machine Computer Operator's Name: herself with 's assist In discussion with the attending physician, it is certified that this patient is under their care and that they, or a Nurse Practitioner,Clinical Nurse specialist or Physician Geological Engineering Teacher who is working directly with them, had [...] continue rehab for managing ADL's. Eval for ASSISTANT GUEST SERVICES MANAGER: HOME HEALTH CARE AGENCY: [facility] PHONE: [phone] FAX: [phone] Start of care: 09/21/18 FOR MEDICARE ONLY: [...] this patient's PCP: LILLY Gaitan [address] [facility] / REPLACED BY [facility] [address] All A agencies which cover the area of patient's residence have been reviewed, either verbally irasema writing, and patient/family have chosen the home health care agency noted Questions: Agency name and contact information: [facility] Patient location post discharge: home What services [...] with the wheelchair. Questions: Vendor Name/Contact information: [facility] Primary Care Provider: LILLY Gaitan [phone] Discharge References/Attachments None documented in this encounter [...] bowel movement. You can also take an efrr-oao-psrgfgc medication, Miralax if needed to combat constipation. [...] skin and wound problems. Call your doctor ([phone]) if you develop: 1. Fever greater than [...] 1. You will have follow-up appointments at [facility] as indicated in Future Appointment and Orders. You will have an xray prior to those appointments so please come to Radiology, desk 3T, 1 hour BEFORE your appointment for those x-rays. Future Appointments Date Time Provider Department Center 10/01/2018 10:00 AM [facility] DX ROOM 1 Xray [facility] Rad [facility] [...] ) Service Ortho Pager # Check daily [facility] is unable to supply the commode and the slide board . This commercial underwriter called several places andfound slide board at [facility] and [facility] as well that is being serviced [...] discharge planning. Ivette Álvarez RN CM Pager [phone] * Ivette Álvarez RN - 09/20/2018 12:52 PM EDT The patient/freight representative has been provided a list of /DME vendors which serve their preferred geographic area. A letter describing our affiliations was reviewed with them and they were educated about their right to choose where referrals are placed. Patient requests referral to [facility] Expected date of discharge: 09/20/18 Referral routed to the Manager Military for matching with agency/vendor and to provide any required information. Ivette Álvarez [facility] Beeper #[phone] * Ivette Álvarez RN - 09/20/2018 11:14 AM EDT Office of Care Managment (OCM /Caremanger (CM)/ Discharge planning ) Service Ortho Pager # check daily Patient is medically ready to go . Made call to [facility] to verify delivery of Wheelchair , slide board and drop arm commode for today (family said they can pick the items up on the way home ) Thalia from [facility] is checking with [facility] office to make sure items are available for them. Plan: CM will continue to follow for coordination of care and to facilitate discharge planning. ? Ivette Álvarez RN CM Pager [phone] * Ori Santos MD - 09/20/2018 5:39 AM EDT ORTHOPAEDIC SURGERY INPATIENT PROGRESS NOTE Patient Name: Jeane La Age: 53 y.o. Surgery/Issue: ORIF of [...] Pain well controlled. Plan to discharge home [facility] per PT recommendations. Discharge likely today, dependent on DME delivery to [facility]. Activity: NWB BLE. Strict elevation in splints. Closure: Sutures (remove 10-14 days) Dressing: DSD, splints. Drain: None Anticoagulation: Lovenox for 30 days Antibiotics: Empiric Ceftriaxone/Azithromycin for suspected CAP Consults: Medicine, Neuro Dispo: Like home today Follow-up: As scheduled Ori Santos MD 09/20/2018 Future Appointments Date Time Provider Department Center 10/01/2018 10:00 AM [facility] DX ROOM 1 Xray [facility] Rad Clin [...] with Med Team re pt DC today( [id number]). Pt to dc Thursday * Sanket Freeman [...] Time Provider Department Center 10/01/2018 10:00 AM [facility] DX ROOM 1 Xray [facility] Rad Clin 10/01/2018 11:00 AM Mary Ellison PA Leb Ortho [address] [place] [address] CLIN Associated attestation - Aparna Reed MD [...] a transfer to the orthopedic service from [facility] for bilateral complex foot fractures. [...] L Elbow flexion 5/5 R, 5/5 L Investigative Assistant LE: Deferred due to her pain Sensation: [...] a transfer to the orthopedic service from [facility] for bilateral complex foot fractures. [...] - PGY-3 General Neurology Consults Team Pager #[phone] 09/17/18 Associated attestation - Jose Swan MD - 09/17/2018 4:41 PM EDT I have seen and examined Jneae La with the neurology team on 09/17/2018 and agree with the assessment and plan as below. Face twitching. 53 Y F with history of DJD spine, DM, fibromyalgia being seen by Neurologist at [facility] Episodes of left sided facial twitching Stopped taking gabapentin recently due to side effects. Low suspicion for these being seizures. AEDs not needed at this time Recommended lower doses of gabapentin which she doesn't wish to take. Outpatient neurology followup Jose Swan MD Department of Neurology [facility] * Sanket Freeman MD - 09/17/2018 [...] Department of Orthopaedics 09/17/18 * Davin Ann, NAIL KEGGER - 09/16/2018 11:22 PM EDT Pt refused [...] 8:31 AM EDT Internal Medicine Consult Note (#[id number]) Progress Note Patient info: Name: Jenae La : 1965 PCP: LILLY Gaitan PCP phone number: [phone] Date of Admission: 09/14/2018 ( Hospital Day [...] Orthopedic Surgery Service as a transfer from [facility] for operative management of bilateral [...] ??? [Jul] acetaminophen 1,000 mg Oral Q8H [facility] ### ??? [Jul] levETIRAcetam 1 g Intravenous [...] in the last 7068 hours. Invalid input(s): [id number] Heme: No results for input(s): LDH, HAPTOGLOBIN, URICACID in the last 168 hours. ABG: ABG (Arterial Blood Gas) No results found for: PHART, PO2ART, WBV1JXQ, LUI6BIQ Microbiology: Site Date and Time Obtained Result [...] Orthopedic Surgery Service as a transfer from [facility] for definitive operative management of [...] demonstrated seizure-like activity during her presentation at [facility], thus would recommend consulting Neurology to determine the need ace EEG to rule out sub-clinical seizure and determine the need to continue keppra. The patient's revised cardiac risk index is a Class I risk (0 points) with a 3.9% 30 day risk of , AR, or cardiac arrest. No further cardiac work [...] Lyon MD, PGY-3 09/16/2018 Medicine Consult # [id number] Associated attestation - Chris Stahl DO - [...] today vs tomorrow pending scheduling availability. Appreciate [facility] medicine recs. - Neuro consult today - Remain NPO for possible OR today - UA today - NWB B/l LE - Pain control: Oral multimodal pain medication - Discharge planning: likely rehab per PT - F/u TBD Sanket Freeman MD PGY-2 Orthopaedics * Davin Ann, NAIL KEGGER - 09/15/2018 11:00 PM EDT Pt had Nausea, NIV held this evening. * Kathrin Madsen RN - 09/15/2018 2:05 PM EDT Based on discussions with the multi-disciplinary healthcare team, the patient would benefit from snf/swing/acute level of care at discharge. ?? I have met with the patient/freight representative to discuss discharge planning needs. I have provided the [facility], Office of Care Management letter from the [facility] pertaining to rehab referrals. I have also provided a letter describing our affiliations within the [facility] and educated them about their right to choose where referrals are placed. ?? I reviewed the different levels of rehab including SNF, swing, acute and LTAC with the patient/freight representative. ?? The patient/freight representative has been provided a list of facilities within their preferred geographic area. ?? I have requested that the patient/freight representative provide at least three choices for referral. ?? The patient/freight representative have requested referrals to: 2.[facility] [address] [place] [address] ?? [phone] [facility] [address] [place] [address] ?? [phone] ?? Expected date of discharge: 09/17/18 Note routed to Manager Military who will communicate referrals to facilities and [...] % Laboratory: No results found for: PHART, MNE8XNP, PO2ART, ODK7QRE, BEART Assessment: Called to set pt up [...] Urban PCP: LILLY Gaitan PCP phone #: [phone] Chief Complaint: Foot pain History of Present Illness: Jenae La is a 53 y.o woman with HTN, HLD, Type II DM, LORRI on CPAP,fibromyalgia with chronic opioid use, and GERD who was admitted to the Orthopedic Surgery Service as a transfer from [facility] for operative management of bilateral complex foot fractures s/p trauma (dropping firewood on her feet) on the evening of 09/11/18 causing bilateral immediate pain, swelling, andbruising making it difficult to ambulate and leading to falls c/b striking her head multiple times.It was with these symptoms that she presented to [facility] on 09/12/18. During her initial presentation in the [facility] ED, the patient reported instances [...] negative, CSF cultures were reportedly negative. At [facility], she was found to have [...] hours of admission. She was admitted to [facility] from 09/12/18 - 09/14/18. Upon arrival at [facility] on 09/15/18,the patient noted moderate bilateral pain [...] Illicits: Denies Living Situation: Lives with in MD Vitals: Last value Range last 24 hrs [...] in the last 7068 hours. Invalid input(s): [id number] Heme: No results for input(s): LDH, HAPTOGLOBIN, [...] Orthopedic Surgery Service as a transfer from [facility] for definitive operative management of [...] demonstrated seizure-like activity during her presentation at [facility], thus would recommend consulting Neurology [...] a 3.9% 30 day risk of , AR, or cardiac arrest. No further cardiac work [...] Internal Medicine, PGY- 3 Medicine Consult Pager #[phone] Associated attestation - Chris Stahl DO - [...] female who presented as a transfer from [facility] for operative management of the complex foot fractures due to trauma on 09/11/2018. Her hospital course at [facility] was complicated by an ICU admission due to community-acquired pneumonia, as well as possible focal seizures and postconcussive syndrome. Here at [facility] patient has been clinically stable from pulmonary [...] the orthopaedics service as a transfer from [facility] for operative management of bilateral complex [...] multiple times, leading her to present to [facility] on 09/12/2018 for evaluation. Initial work-up at [facility] revealed sepsis secondary to suspected community- acquired pneumonia, mild acute exacerbation of COPD, a closed head injury with postconcussive syndrome, multiple bilateral foot fractures, and MANUEL, resulting in hospital admission. Upon presentation to the [facility] ED, her and cristian reported [...] no active bleeding observed. General Surgery at [facility] evaluated the patient, and felt no further action was required besides outpatient follow up. Upon arrival to [facility], Mrs. La reports moderate pain in her [...] Situation: Lives with and multiple pets in [place], [place]. Review of Systems: As per HPI, [...] direct admit to the Orthopaedics service from [facility] for definitive management of bilateral [...] AM EDTAssociated Order(s): EEG AWAKE, ASLEEP, DROWSY [facility] Department of Neurology Inpatient EEG Report Name of the Patient: Jenae La Date of : 1965 Date of Service: 09/17/2018 Referring physician: Dr. Abdirahman Enamorado BRIEF HISTORY: Jenae La is a 53 y.o. patient with episodes of tremors at home and witnessed facial and arm twitching at [facility] (witnessed by nursing). Also has [...] channel digitized electroencephalogram was performed in the [facility] Clinical Neurophysiology Laboratory. The 10/20 international system of electrode placement was used and bipolar and referential electrode montages were recorded. In addition to EEG the patient was monitored for EKGand lateral/vertical eye movements. Video was recorded during the session. The duration of the recording was 30 minutes. FURNACE MAINTENANCE'S REPORT: Performed by: RR/CM Patient was not [...] Angel MD Clinical Neurophysiology Fellow Personal Pager #[phone] Epilepsy Neurology #[phone] Neurology Attending I have personally reviewed the EEG, and I agree with the details as written. The above report was formulated in discussion with me at the time of EEG reading, and I agree with it as documented. Jose Singer MD [place] [address] Pager: [phone], #[phone] Email: [email or web address] documented in this encounter Miscellaneous Notes * [...] quit. She is not interested in receiving [facility] Tobacco Cessation packet. A: Pt refused consult. P: Encouraged patient to reach out to PCP for nicotine inhaler prescription. Dimitrios Valle, MSN, RN-, [facility] Tobacco Screw Driver Operator [facility] Pager #[phone] * Plan of Care - Stacey Duenas [...] I have spoken with Thalia from the [place] office and she states shecannot get this DME on a Thu afternoon for Sat am but can do this for a Mon d/c. Pt states there jessy branch in [facility] that she has used in the past. Pt requests a referral to [facility] for an RN for skilled assessments, PT, OT, and steve for ASSISTANT GUEST SERVICES MANAGER. Pt requests Ofelia Barger if possible. [...] NO xxx Lauren Perales, PT, DPT Pager: [phone] Inpatient Physical Therapy 2017 PT Evaluation Code [...] (Group);Wheelchair Training/Management (Group) Bed Mobility Assessment/Treatment Scoot/Bridge [place] (Bed Mobility) conditional independence Rgppmf-wy-Aje [place] (Bed Mobility) conditional independence Bye-nb-Dwqayy [place] (Bed Mobility) conditional independence Safety Issues (Bed Mobility) decreased use of legs for bridging/pushing Impairments (Bed Mobility) pain;ROM (range of motion) decreased Comment (Bed Mobility) incr time/effort to/from EOB but no physical assistance, NWB maintained throughout, good SLR b/l LEs Transfer Assessment/Treatment Bed-Chair [place] (Transfers) supervision required;conditional independence (initial supervision progressing to ind) Ryf-Skvim-Rqd Assistive Device (Transfers) slide board [place] (Toilet Transfers) supervision required;conditional independence Assistive Device [...] with assist, home with home health(PT) Pager: [phone] Ori Bates OT 09/17/2018 Occupational Therapy Rehabilitation [...] pain;ROM (range of motion) decreased;strength decreased Scoot/Bridge [place] (Bed Mobility) conditional independence Mloquh-kd-Kzy [place] (Bed Mobility) conditional independence Lci-mi-Ouyxby [place] (Bed Mobility) conditional independence Comment (Bed Mobility) Pt performeed bed mobility w/ increased time and pain. Transfer Assessment/Treatment [place] (Toilet Transfers) supervision required;conditional independence Impairments (Transfers) pain;ROM (range of motion) decreased;strength decreased Wtr-Cffag-Ijj Assistive Device (Transfers) slide board Bed-Chair [place] (Transfers) supervision required;contact guard assist Comment (Transfers) [...] Body Dressing Assessment/Training Assistive Devices (LB Dressing) hotel superintendent Position (LB Dressing) sitting [place] Level (LB Dressing) conditional independence Impairments (LB Dressing) pain;ROM (range of motion) decreased;strength decreased Comment (LB Dressing) Pt donned pants independently, w/ slight increase in time. Toileting Assessment/Training Position (Toileting) sitting [place] Level (Toileting) conditional independence Impairments (Toileting) ROM [...] a transfer to the orthopedic service from [facility] for bilateral complex foot fractures. Per discussion with the consulting provider, patient was initially admitted to [facility] for bilateral foot fractures. This was in the setting of multiple falls in the previous days leading up to her admission. She was also noted to strike her head multiple times during these falls. In conversation withthe patient's at [facility], there was some discussion of some trembling, [...] L Elbow flexion 5/5 R, 5/5 L Investigative Assistant LE: Deferred due to her pain Sensation: [...] Negative mcL Appearance UA Clear Clear Spec [place] UA 1.012 1.002 - 1.030 Color UA [...] a transfer to the orthopedic service from [facility] for bilateral complex foot fractures. Discussion with Jenae and her significant other about her initial presentation makes us less concerned for seizure activity. However, it is hard to say what the nurses at [facility] actually saw but they describe [...] - PGY-3 General Neurology Consults Team Pager #[phone] 09/16/18 Associated attestation - German Gu III, [...] as documented. German Gu III, MD Pager: [phone] 7:42 AM 09/17/2018 * Op Note - Aparna Reed MD - 09/16/2018 2:02 PM EDT [facility] Operative Note Patient Name: Jenae La : [id number] MR#: [id number] Case Date: 09/16/2018 Surgeon: Surgeon(s) and Role: [...] 2nd metatarsal fracture, left 3rd metatarsal fracture, [id number] metatarsal fracture, left cuboid fracture. Procedure(s) (LRB): [...] the second tarsometatarsal joint. We used a yjuvv-rw-kqckp clamp to reduce it, and then fixed [...] the articular surface. We then used a Maria Stein to bring the impacted articular surface down [...] Reed MD - 09/16/2018 1:54 PM EDT [facility] Operative Note- Left foot This patient underwent bilateral procedures. This operative note is for the left foot. Patient Name: Jenae La : [id number] MR#: [id number] Case Date: 09/16/2018 Surgeon: Surgeon(s) and Role: [...] 2nd metatarsal fracture, left 3rd metatarsal fracture, [id number] metatarsal fracture, left cuboid fracture. ?? Procedure(s) [...] fractures and dislocations. She was seen at [facility] and transferred to [facility] for further care. We discussed the risks [...] third metatarsal fracture was exposed using a Maria Stein. A eizgh-di-lggtr clamp was used to control the distal [...] toe extensors. Fracture was exposed using a Maria Stein. A jcihw-ka-wueig clamp was used to control the distal [...] Implant Name Type Inv. Item Serial No. Gate Mortiser Operator Lot No. LRB No. Used Action PIN,KWIRE,TROC 1 ED,NS,[id number] ([id number]) (AutoReq) - [id number] IMPLANTS PIN,KWIRE,TROC 1 ED,NS,[id number] ([id number]) (AutoReq) [facility] Right 1 Implanted and Explanted SCREW,CRTX,STAP,T8,2.4X16MM ([id number]) - [id number] IMPLANTS SCREW,CRTX,STAP,T8,2.4X16MM ([id number]) [facility] Right 1 Implanted SCREW,CRTX,STAP,T8,2.4X26MM ([id number]) - [id number] IMPLANTS SCREW,CRTX,STAP,T8,2.4X26MM ([id number]) [facility] Right 1 Implanted SCREW,CRTX,STAP,T8,2.4X22MM ([id number]) - [id number] IMPLANTS SCREW,CRTX,STAP,T8,2.4X22MM ([id number]) [facility] Right 1 Implanted SCREW,SLFTP,LCK,STAR,2.4X12MM ([id number]) - [id number] IMPLANTS SCREW,SLFTP,LCK,STAR,2.4X12MM ([id number]) [facility] Right 1 Implanted SCREW,LCK,STAP,STAR,2.4X6MM ([id number]) - [id number] IMPLANTS SCREW,LCK,STAP,STAR,2.4X6MM ([id number]) [facility] Right 1 Implanted SCREW,LCK,STAP,STAR,2.4X18MM ([id number]) - [id number] IMPLANTS SCREW,LCK,STAP,STAR,2.4X18MM ([id number])[facility] Right 1 Implanted SCREW,CRTX,STAP,STRDRV,2X9MM ([id number]) - [id number] IMPLANTS SCREW,CRTX,STAP,STRDRV,2X9MM ([id number])[facility] Right 1 Implanted SCREW,CRTX,STAP,STAR,2X24MM ([id number]) - [id number] IMPLANTS SCREW,CRTX,STAP,STAR,2X24MM ([id number]) [facility] Right 1 Wasted SCREW,CRTX,STAP,STAR,2X28MM ([id number]) - [id number] IMPLANTS SCREW,CRTX,STAP,STAR,2X28MM ([id number]) [facility] Right 1 Implanted SCREW,CRTX,STAP,STAR,2X18MM ([id number]) - [id number] IMPLANTS SCREW,CRTX,STAP,STAR,2X18MM ([id number]) [facility] Right 1 Implanted SCREW,LCK,STAP,STAR,2X14MM ([id number]) - [id number] IMPLANTS SCREW,LCK,STAP,STAR,2X14MM ([id number]) [facility] Right 1 Implanted SCREW,LCK,STAP,STAR,2X18MM ([id number]) - [id number] IMPLANTS SCREW,LCK,STAP,STAR,2X18MM (3913258) [facility] Right 1 Implanted PLATE,LCP,7H,2.0X52MM ([id number]) - [id number] IMPLANTS PLATE,LCP,7H,2.0X52MM (2152371) [facility] Right 1 Implanted PLATE,CNDYLR,LCP,7H,2.4MM ([id number]) (AutoReq) - [id number] IMPLANTS PLATE,CNDYLR,LCP,7H,2.4MM (6778501) (AutoReq) [facility] Right 1 Implanted BONE,CRUSHED,CANCELLOUS,10CC ([id number]) (AutoReq) - [id number] IMPLANTS BONE,CRUSHED,CANCELLOUS,10CC([id number]) (AutoReq) [facility] [id number] Right 1 Implanted PIN,KWIRE,TROC 1ED,NS,[id number] ([id number]) - [id number] IMPLANTS PIN,KWIRE,TROC 1ED,NS,4Y668ED ([id number]) [facility] Right 2 Implanted and Explanted PIN,KWIRE,PLAIN,2,0.368Q9NO,NS ([id number]) - [id number] IMPLANTS PIN,KWIRE,PLAIN,2,0.093Z4CZ,NS (3305467) [employer] [facility] Left 3 Implanted PLATE,LCP,CNDYLR,7H-SHFT,2MM ([id number]) - [id number] IMPLANTS PLATE,LCP,CNDYLR,7H-SHFT,2MM (1201790)[facility] Left 1 Implanted SCREW,LCK,STAP,STAR,2X12MM ([id number]) - [id number] IMPLANTS SCREW,LCK,STAP,STAR,2X12MM (8326921) [facility] Left 1 Implanted SCREW,LCK,STAP,STAR,2X10MM (1151363) - [id number] IMPLANTS SCREW,LCK,STAP,STAR,2X10MM (3227319) [facility] Left 1 Implanted SCREW,CRTX,STAP,STAR,2X12MM (5353423) - [id number] IMPLANTS SCREW,CRTX,STAP,STAR,2X12MM ([id number]) [facility] Left 1 Implanted SCREW,CRTX,STAP,STAR,2X14MM ([id number]) - [id number] IMPLANTS SCREW,CRTX,STAP,STAR,2X14MM (3889909) [facility] Left 1 Implanted SCREW,CRTX,STAP,STAR,2X14MM ([id number]) - [id number] IMPLANTS SCREW,CRTX,STAP,STAR,2X14MM ([id number]) [facility] Right 1 Implanted SCREW,VA,LCK,SLFTP,T6,2X22MM ([id number]) - [id number] IMPLANTS SCREW,VA,LCK,SLFTP,T6,2X22MM ([id number])[employer] Right 1 Implanted SCREW,VA,LCK,SLFTP,T6,2X18MM ([id number]) - [id number] IMPLANTS SCREW,VA,LCK,SLFTP,T6,2X18MM ([id number])[employer] Right 1 Implanted SCREW,VA,LCK,SLFTP,T6,2X16MM ([id number]) - [id number] IMPLANTS SCREW,VA,LCK,SLFTP,T6,2X16MM ([id number])[facility] Right 1 Implanted SCREW,CRTX,STAP,STAR,2X16MM ([id number]) - [id number] IMPLANTS SCREW,CRTX,STAP,STAR,2X16MM (3625721) [facility] Right 1 Implanted SCREW,CRTX,STAP,STAR,2X12MM ([id number]) - [id number] IMPLANTS SCREW,CRTX,STAP,STAR,2X12MM ([id number]) [facility] Right 1 Implanted SCREW,CRTX,STAP,STRDRV,2X10MM ([id number]) - [id number] IMPLANTS SCREW,CRTX,STAP,STRDRV,2X10MM (0931385) [facility] Left 1 Implanted GUIDEW,THRD,1.8W922AV ([id number]) - [id number] IMPLANTS GUIDEW,THRD,1.6E575YF ([id number]) [facility]; [facility] Right 3 Implanted Number of [...] or concerns. Lauren Perales, PT, DPT Pager: [phone] 09/16/18 Inpatient Rehabilitation Department * Plan of [...] up as able/appropriate. Ori Valencia OT Pager: [phone] * Initial Assessments - Kathrin Madsen RN [...] wyman Other: Primary Care Provider: LILLY Gaitan [phone] Patient/Caregiver Goals of Treatment: agreed to go [...] kind. She agrees to snf referrals, #1 [facility], [facility]. Referral submitted. Plan: snf vs swing vs acute. A member of the Care Management team will continue to monitor progress, follow for continuity of care and assist with transition of care planning. Kathrin Madsen RN Pager: [phone] * Plan of Care - Horace Beckman [...] Glucose, POC 139 65 - 199 mg/dL [facility] Comment: Supplemental ranges: <140 mg/dL before meals <180 mg/dL all other times of the day Blood specimen (specimen) 09/20/2018 11:29 AM EDT 09/20/2018 11:29 AM EDT Javad Urban MD POINT OF CARE TEST O RDERABLES [facility] [place] [address] * POCT Glucose (09/20/2018 8:02 AM EDT) Glucose, POC 167 65 - 199 mg/dL [facility] Comment: Supplemental ranges: <140 mg/dL before meals <180 mg/dL all other times of the day Blood specimen (specimen) 09/20/2018 8:02 AM EDT 09/20/2018 8:02 AM EDT Javad Urban MD POINT OF CARE TEST O JONY Performing Organization Address [facility]/ZIP Co de Phone Number [facility] [place] [address] * POCT Glucose (09/20/2018 4:03 AM EDT) Glucose, POC 127 65 - 199 mg/dL [facility] Comment: Supplemental ranges: <140 mg/dL before meals <180 mg/dL all other times of the day Blood specimen (specimen) 09/20/2018 4:03 AM EDT 09/20/2018 4:03 AM EDT Javad Urban MD POINT OF CARE TEST O JONY Performing Organization Address [facility] Co de Phone Number [facility] [place] [address] * POCT Glucose (09/19/2018 11:45 PM EDT) Glucose, POC 146 65 - 199 mg/dL [facility] Comment: Supplemental ranges: <140 mg/dL before meals <180 mg/dL all other times of the day Blood specimen (specimen) 09/19/2018 11:45 PM EDT 09/19/2018 11:45 PM EDT Javad Urban MD POINT OF CARE TEST O JONY Performing Organization Address [facility] Co de Phone Number [facility] [place] [address] * POCT Glucose (09/19/2018 7:26 PM EDT) Glucose, POC 149 65 - 199 mg/dL [facility] Comment: Supplemental ranges: <140 mg/dL before meals <180 mg/dL all other times of the day Blood specimen (specimen) 09/19/2018 7:26 PM EDT 09/19/2018 7:26 PM EDT Javad Urban MD POINT OF CARE TEST O RDERALISSETT Performing Organization Address City/[facility] Co de Phone Number [facility] [place] [address] * POCT Glucose (09/19/2018 4:14 PM EDT) Glucose, POC 144 65 - 199 mg/dL [facility] Comment: Supplemental ranges: <140 mg/dL before meals <180 mg/dL all other times of the day Blood specimen (specimen) 09/19/2018 4:14 PM EDT 09/19/2018 4:14 PM EDT Javad Urban MD POINT OF CARE TEST O RDERALISSETT Performing Organization Address [facility] Co de Phone Number [facility] [place] [address] * POCT Glucose (09/19/2018 11:28 AM EDT) Glucose, POC 170 65 - 199 mg/dL [facility] Comment: Supplemental ranges: <140 mg/dL before meals <180 mg/dL all other times of the day Blood specimen (specimen) 09/19/2018 11:28 AM EDT 09/19/2018 11:28 AM EDT Javad Urban MD POINT OF CARE TEST O RDERALISSETT Performing Organization Address City/[facility]/ZIP Co de Phone Number [facility] [place] [address] * POCT Glucose (09/19/2018 7:54 AM EDT) Glucose, POC 120 65 - 199 mg/dL [facility] Comment: Supplemental ranges: <140 mg/dL before meals <180 mg/dL all other times of the day Blood specimen (specimen) 09/19/2018 7:54 AM EDT 09/19/2018 7:54 AM EDT Javad Urban MD POINT OF CARE TEST O JONY Performing Organization Address [facility] Co de Phone Number [facility] [place] [address] * POCT Glucose (09/19/2018 3:42 AM EDT) Glucose, POC 105 65 - 199 mg/dL [facility] Comment: Supplemental ranges: <140 mg/dL before meals <180 mg/dL all other times of the day Blood specimen (specimen) 09/19/2018 3:42 AM EDT 09/19/2018 3:42 AM EDT Javad Urban MD POINT OF CARE TEST O JONY Performing Organization Address [facility] Co de Phone Number [facility] [place] [address] * Magnesium (09/19/2018 3:40 AM EDT) Magnesium 0.74 0.69 - 1.07 mmol/L [facility] Blood specimen (specimen) Venous Draw / Unknown 09/19/2018 3:40 AM EDT 09/19/2018 4:40 AM EDT Narrative Resulting Agency Comment Spec In Lab Buffy CARR CHEMISTRY ORDERAB LES Performing Organization Address [facility] Co de Phone Number [facility] [place] [address] * (ABNORMAL) Basic Metabolic Panel (non-fasting) (09/19/2018 3:40 AM EDT) Glucose 111 65 - 199 mg/dL [facility] Comment:Diabetes: >=200 mg/d L plus symptoms Blood Urea Nitrogen 11 8 - 18 mg/dL [facility] Creatinine 0.64(L) 0.70 - 1.20 mg/dL [facility] Sodium 140 135 - 145 mmol/L [facility] Potassium 4.0 3.5 - 5.0 mmol/L [facility] Comment: Please note: ??Patients with WBC >100,000 may have falsely elevated Potassium levels. ??For accurate Potassium quantification in these patients send serum separator tube (gold top) for subsequent determinations. ??Contact the Clinical Chemistry Laboratory if there are any questions. Chloride 104 98 - 107 mmol/L [facility] Carbon Dioxide 27 22 - 31 mmol/L [facility] Anion Gap 9 5 - 15 mmol/L [facility] Calcium 8.9 8.5 - 10.5 mg/dL [facility] Est Glomerular Filtration Rate 103 >=60 mL/min/1. 73 m?? [facility] Comment: The eGFR was calculated using the CKD-EPI equation. As with all creatinine based estimates of kidney function, eGFR values calculated with the CKD-EPI equation are not accurate in patients with acute kidney failure, extremes of body mass or the acutely ill. [email or web address] eGFR 120 >=60 mL/min/1. 73 m?? [facility] Comment: The eGFR was calculated using the CKD-EPI equation. As with all creatinine based estimates of kidney function, eGFR values calculated with the CKD-EPI equation are not accurate in patients with acute kidney failure, extremes of body mass or the acutely ill. [email or web address] Blood specimen (specimen) 09/19/2018 3:40 AM EDT 09/19/2018 3:53 AM EDT Narrative Resulting Agency Comment Spec In Lab Trina Loo APRN CHEMISTRY ORDERABLE S [facility] [place] [address] * POCT Glucose (09/18/2018 11:20 PM EDT) Glucose, POC 150 65 - 199 mg/dL [facility] Comment: Supplemental ranges: <140 mg/dL before meals <180 mg/dL all other times of the day Blood specimen (specimen) 09/18/2018 11:20 PM EDT 09/18/2018 11:20 PM EDT Javad Urban MD POINT OF CARE TEST O RDERALISSETT Performing Organization Address City/[facility] Co de Phone Number [facility] [place] [address] * POCT Glucose (09/18/2018 7:57 PM EDT) Glucose, POC 103 65 - 199 mg/dL [facility] Comment: Supplemental ranges: <140 mg/dL before meals <180 mg/dL all other times of the day Blood specimen (specimen) 09/18/2018 7:57 PM EDT 09/18/2018 7:57 PM EDT Javad Urban MD POINT OF CARE TEST O JONY Performing Organization Address [facility] Co de Phone Number [facility] [place] [address] * POCT Glucose (09/18/2018 4:56 PM EDT) Glucose, POC 142 65 - 199 mg/dL [facility] Comment: Supplemental ranges: <140 mg/dL before meals <180 mg/dL all other times of the day Blood specimen (specimen) 09/18/2018 4:56 PM EDT 09/18/2018 4:56 PM EDT Javad Urban MD POINT OF CARE TEST O RDERALISSETT Performing Organization Address [facility] Co de Phone Number [facility] [place] [address] * POCT Glucose (09/18/2018 11:59 AM EDT) Glucose, POC 160 65 - 199 mg/dL [facility] Comment: Supplemental ranges: <140 mg/dL before meals <180 mg/dL all other times of the day Blood specimen (specimen) 09/18/2018 11:59 AM EDT 09/18/2018 11:59 AM EDT Javad Urban MD POINT OF CARE TEST O JONY Performing Organization Address [facility] Co de Phone Number [facility] [place] [address] * POCT Glucose (09/18/2018 7:55 AM EDT) Glucose, POC 126 65 - 199 mg/dL [facility] Comment: Supplemental ranges: <140 mg/dL before meals <180 mg/dL all other times of the day Blood specimen (specimen) 09/18/2018 7:55 AM EDT 09/18/2018 7:55 AM EDT Javad Urban MD POINT OF CARE TEST O JONY Performing Organization Address [facility] Co de Phone Number [facility] [place] [address] * POCT Glucose (09/18/2018 3:58 AM EDT) Glucose, POC 125 65 - 199 mg/dL [facility] Comment: Supplemental ranges: <140 mg/dL before meals <180 mg/dL all other times of the day Blood specimen (specimen) 09/18/2018 3:58 AM EDT 09/18/2018 3:58 AM EDT Javad Urban MD POINT OF CARE TEST O JONY Performing Organization Address [facility] Co de Phone Number [facility] [place] [address] * (ABNORMAL) Magnesium (09/18/2018 3:37 AM EDT) Magnesium 0.67(L) 0.69 - 1.07 mmol/L [facility] Blood specimen (specimen) Venous Draw / Unknown 09/18/2018 3:37 AM EDT 09/18/2018 4:55 AM EDT Narrative Resulting Agency Comment Spec In Lab Trina Loo CARLOS CHEMISTRY ORDERABLE S [facility] [place] [address] * (ABNORMAL) Basic Metabolic Panel (non-fasting) (09/18/2018 3:37 AM EDT) Glucose 106 65 - 199 mg/dL [facility] Comment:Diabetes: >=200 mg/d L plus symptoms Blood Urea Nitrogen 7(L) 8 - 18 mg/dL [facility] Creatinine 0.62(L) 0.70 - 1.20 mg/dL [facility] Sodium 143 135 - 145 mmol/L [facility] Potassium 3.1(L) 3.5 - 5.0 mmol/L [facility] Comment: Please note: ??Patients with WBC >100,000 may have falsely elevated Potassium levels. ??For accurate Potassium quantification in these patients send serum separator tube (gold top) for subsequent determinations. ??Contact the Clinical Chemistry Laboratory if there are any questions. Chloride 106 98 - 107 mmol/L [facility] Carbon Dioxide 26 22 - 31 mmol/L [facility] Anion Gap 11 5 - 15 mmol/L [facility] Calcium 8.5 8.5 - 10.5 mg/dL [facility] Est Glomerular Filtration Rate 104 >=60 mL/min/1. 73 m?? [facility] Comment: The eGFR was calculated using the CKD-EPI equation. As with all creatinine based estimates of kidney function, eGFR values calculated with the CKD-EPI equation are not accurate in patients with acute kidney failure, extremes of body mass or the acutely ill. [email or web address] eGFR 121 >=60 mL/min/1. 73 m?? [facility] Comment: The eGFR was calculated using the CKD-EPI equation. As with all creatinine based estimates of kidney function, eGFR values calculated with the CKD-EPI equation are not accurate in patients with acute kidney failure, extremes of body mass or the acutely ill. [email or web address] Blood specimen (specimen) 09/18/2018 3:37 AM EDT 09/18/2018 3:59 AM EDT Narrative Resulting Agency Comment Spec In Lab Trina Loo APRN CHEMISTRY ORDERABLE S Performing Organization Address [facility] Co de Phone Number [facility] [place] [address] * POCT Glucose (09/17/2018 11:33 PM EDT) Glucose, POC 145 65 - 199 mg/dL [facility] Comment: Supplemental ranges: <140 mg/dL before meals <180 mg/dL all other times of the day Blood specimen (specimen) 09/17/2018 11:33 PM EDT 09/17/2018 11:33 PM EDT Javad Urban MD POINT OF CARE TEST O RDERABLES Performing Organization Address [facility] Co de Phone Number [facility] [place] [address] * (ABNORMAL) POCT Glucose (09/17/2018 7:24 PM EDT) Glucose, POC 200(H) 65 - 199 mg/dL [facility] Comment: Supplemental ranges: <140 mg/dL before meals <180 mg/dL all other times of the day Blood specimen (specimen) 09/17/2018 7:24 PM EDT 09/17/2018 7:24 PM EDT Javad Urban MD POINT OF CARE TEST O RDERALISSETT Performing Organization Address [facility] Co de Phone Number [facility] [place] [address] * POCT Glucose (09/17/2018 3:16 PM EDT) Glucose, POC 180 65 - 199 mg/dL [facility] Comment: Supplemental ranges: <140 mg/dL before meals <180 mg/dL all other times of the day Blood specimen (specimen) 09/17/2018 3:16 PM EDT 09/17/2018 3:16 PM EDT Javad Urban MD POINT OF CARE TEST O JONY Performing Organization Address [facility] Co de Phone Number [facility] [place] [address] * POCT Glucose (09/17/2018 12:01 PM EDT) Glucose, POC 137 65 - 199 mg/dL [facility] Comment: Supplemental ranges: <140 mg/dL before meals <180 mg/dL all other times of the day Blood specimen (specimen) 09/17/2018 12:01 PM EDT 09/17/2018 12:01 PM EDT Javad Urban MD POINT OF CARE TEST O JONY Performing Organization Address [facility] de Phone Number [facility] [place] [address] * EEG awake, asleep, drowsy, routine (09/17/2018 9:30 AM EDT) Narrative Jose Singer MD - 09/17/2018 9:30 AM EDT Jose Singer MD ? 09/21/2018 10:[address] [facility] Department of Neurology Inpatient EEG Report Name of the Patient: ??Jenae La Date of : ?1965 Date of Service: ?09/17/2018 Referring physician: ?Dr. Abdirahman Enamorado BRIEF HISTORY: Jenae La is a 53 y.o. patient with episodes of tremors at home and witnessed facial and arm twitching at [facility] (witnessed by nursing). Also has [...] channel digitized electroencephalogram was performed in the [facility] Clinical Neurophysiology Laboratory. The 10/20 international system of electrode placement was used and bipolar and referential electrode montages were recorded. ??In addition to EEG the patient was monitored for EKG and lateral/vertical eye movements. Video was recorded during the session. The duration of the recording was 30 minutes. FURNACE MAINTENANCE'S REPORT:Performed by: RR/GERHARD Patient was not sleep [...] Angel MD Clinical Neurophysiology Fellow Personal Pager #[phone] Epilepsy Neurology #[id number] Neurology Attending I have personally reviewed the EEG, and I agree with the details as written. ?? The above report was formulated in discussion with me at the time of EEG reading, and I agree with it as documented. Jose Singer MD [place] [address] Pager: [phone], #[phone] Email: [email or web address] Javad Urban MD NEUROLOGY ORDERABLES * (ABNORMAL) Basic Metabolic Panel (non-fasting) (09/17/2018 9:02 AM EDT) Glucose 121 65 - 199 mg/dL [facility] Comment:Diabetes: >=200 mg/d L plus symptoms Blood Urea Nitrogen 9 8 - 18 mg/dL [facility] Creatinine 0.59(L) 0.70 - 1.20 mg/dL [facility] Sodium 144 135 - 145 mmol/L [facility] Potassium 2.9(Criti toy) 3.5 - 5.0 mmol/L [facility] Comment: Called by: maged/sb, Read back by: Aruna Calvo, Date/Time:09/17/18 10:19. Please note: ??Patients with WBC >100,000 may have falsely elevated Potassium levels. ??For accurate Potassium quantification in these patients send serum separator tube (gold top) for subsequent determinations. ??Contact the Clinical Chemistry Laboratory if there are any questions. Chloride 108(H) 98 - 107 mmol/L [facility] Carbon Dioxide 25 22 - 31 mmol/L [facility] Anion Gap 11 5 - 15 mmol/L [facility] Calcium 8.0(L) 8.5 - 10.5 mg/dL [facility] Est Glomerular Filtration Rate 106 >=60 mL/min/1. 73 m?? [facility] LABORATORY Comment: The eGFR was calculated using the CKD-EPI equation. As with all creatinine based estimates of kidney function, eGFR values calculated with the CKD-EPI equation are not accurate in patients with acute kidney failure, extremes of body mass or the acutely ill. [email or web address]/[email or web address]ULSAnkf eGFR 123 >=60 mL/min/1. 73 m?? [facility] Comment: The eGFR was calculated using the CKD-EPI equation. As with all creatinine based estimates of kidney function, eGFR values calculated with the CKD-EPI equation are not accurate in patients with acute kidney failure, extremes of body mass or the acutely ill. [email or web address]/[email or web address]ULSAnkf Blood specimen (specimen) 09/17/2018 9:02 AM EDT 09/17/2018 9:17 AM EDT Narrative Resulting Agency Comment Spec In Lab Javad Urban MD CHEMISTRY ORDERABLES Performing Organization Address [facility]/ZIP Co de Phone Number [facility] [place] [address] * POCT Glucose (09/17/2018 7:33 AM EDT) Glucose, POC 136 65 - 199 mg/dL [facility] Comment: Supplemental ranges: <140 mg/dL before meals <180 mg/dL all other times of the day Blood specimen (specimen) 09/17/2018 7:33 AM EDT 09/17/2018 7:33 AM EDT Javad Urban MD POINT OF CARE TEST O RDERABLES Performing Organization Address [facility] Co de Phone Number [facility] [place] [address] * POCT Glucose (09/17/2018 3:29 AM EDT) Glucose, POC 126 65 - 199 mg/dL [facility] Comment: Supplemental ranges: <140 mg/dL before meals <180 mg/dL all other times of the day Blood specimen (specimen) 09/17/2018 3:29 AM EDT 09/17/2018 3:29 AM EDT Javad Urban MD POINT OF CARE TEST O RDSILVIO Performing Organization Address [facility] Co de Phone Number [facility] [place] [address] * POCT Glucose (09/16/2018 11:25 PM EDT) Glucose, POC 123 65 - 199 mg/dL [facility] Comment: Supplemental ranges: <140 mg/dL before meals <180 mg/dL all other times of the day Blood specimen (specimen) 09/16/2018 11:25 PM EDT 09/16/2018 11:25 PM EDT Javad Urban MD POINT OF CARE TEST O JONY Performing Organization Address [facility] Co de Phone Number [facility] [place] [address] * POCT Glucose (09/16/2018 8:29 PM EDT) Glucose, POC 114 65 - 199 mg/dL [facility] Comment: Supplemental ranges: <140 mg/dL before meals <180 mg/dL all other times of the day Blood specimen (specimen) 09/16/2018 8:29 PM EDT 09/16/2018 8:29 PM EDT Javad Urban MD POINT OF CARE TEST Rosie BORGES Performing Organization Address [facility] Co de Phone Number [facility] [place] [address] * POCT Glucose (09/16/2018 3:35 PM EDT) Glucose, POC 106 65 - 199 mg/dL [facility] Comment: Supplemental ranges: <140 mg/dL before meals <180 mg/dL all other times of the day Blood specimen (specimen) 09/16/2018 3:35 PM EDT 09/16/2018 3:35 PM EDT Javad Urban MD POINT OF CARE TEST Rosie BORGES Performing Organization Address [facility] Co de Phone Number [facility] [place] [address] * (ABNORMAL) Basic Metabolic Panel (non-fasting) (09/16/2018 3:33 PM EDT) Glucose 106 65 - 199 mg/dL [facility] Comment:Diabetes: >=200 mg/d L plus symptoms Blood Urea Nitrogen 13 8 - 18 mg/dL [facility] Creatinine 0.62(L) 0.70 - 1.20 mg/dL [facility] Sodium 147(H) 135 - 145 mmol/L [facility] Potassium 3.2(L) 3.5 - 5.0 mmol/L [facility] Comment: Please note: ??Patients with WBC >100,000 may have falsely elevated Potassium levels. ??For accurate Potassium quantification in these patients send serum separator tube (gold top) for subsequent determinations. ??Contact the Clinical Chemistry Laboratory if there are any questions. Chloride 112(H) 98 - 107 mmol/L [facility] Carbon Dioxide 22 22 - 31 mmol/L [facility] Anion Gap 13 5 - 15 mmol/L [facility] Calcium 8.1(L) 8.5 - 10.5 mg/dL [facility] Est Glomerular Filtration Rate 104 >=60 mL/min/1. 73 m?? [facility] Comment: The eGFR was calculated using the CKD-EPI equation. As with all creatinine based estimates of kidney function, eGFR values calculated with the CKD-EPI equation are not accurate in patients with acute kidney failure, extremes of body mass or the acutely ill. [email or web address]/[email or web address]SAnkf eGFR 121 >=60 mL/min/1. 73 m?? [facility] Comment: The eGFR was calculated using the CKD-EPI equation. As with all creatinine based estimates of kidney function, eGFR values calculated with the CKD-EPI equation are not accurate in patients with acute kidney failure, extremes of body mass or the acutely ill. [email or web address] Blood specimen (specimen) 09/16/2018 3:33 PM EDT 09/16/2018 3:49 PM EDT Narrative Resulting Agency Comment Spec In Lab Javad Urban MD CHEMISTRY ORDERABLES [facility] [place] [address] * Hemoglobin A1c (09/16/2018 3:33 PM EDT) Hemoglobin A1c 5.5 4.3 - 5.6 % [facility] Comment: Reference Range: 4.3 - [...] Mellitus, Diabetes Care 2013; 36: Suppl. 1, S67-84 Estimated Average Glucose 111 mg/dL [facility] Comment: eAG equivalents for HbA1c [...] into estimated average glucose values. ??Diabetes Care 2008:31(8):6110-0088. Blood specimen (specimen) 09/16/2018 3:33 PM EDT 09/16/2018 3:49 PM EDT Narrative Resulting Agency Comment Spec In Lab Javad Urban MD CHEMISTRY ORDERABLES [facility] [place] [address] * XR Foot Min 3 views Bilat [...] Glucose, POC 126 65 - 199 mg/dL [facility] Comment: Supplemental ranges: <140 mg/dL before meals <180 mg/dL all other times of the day Blood specimen (specimen) 09/16/2018 1:56 PM EDT 09/16/2018 1:56 PM EDT Javad Urban MD POINT OF CARE TEST O RDERABLES [facility] [place] [address] * XR Fluoro No Rad <1Hr - OR Use (09/16/2018 1:10 PM EDT) Narrative RAD - 09/16/2018 1:11 PM EDT This order does not need a radiologist interpretation. ?? Javad Urban MD IMG FLUORO ORDERABLE S Performing Organization Address [facility] Co de Phone Number [place], [place] * POCT Glucose (09/16/2018 7:46 AM EDT) Glucose, POC 131 65 - 199 mg/dL [facility] Comment: Supplemental ranges: <140 mg/dL before meals <180 mg/dL all other times of the day Blood specimen (specimen) 09/16/2018 7:46 AM EDT 09/16/2018 7:46 AM EDT Javad Urban MD POINT OF CARE TEST O RDERABLES Performing Organization Address [facility] Co de Phone Number [facility] [place] [address] * Urine Hold (09/16/2018 6:07 AM EDT) Hold, Urine Sample in lab. [facility] Urine specimen (specimen) Urine / Unknown 09/16/2018 6:07 AM EDT 09/16/2018 6:54 AM EDT Sanket Freeman MD URINE ORDERABLES Performing Organization Address [facility] Co de Phone Number [facility] [place] [address] * (ABNORMAL) Urinalysis with reflex Culture (09/16/2018 6:07 AM EDT) Glucose, Urine Dipstick Negative Negative mg/dL [facility] Protein, Urine Dipstick Negative Negative mg/dL [facility] Bilirubin, Urine Dipstick Negative Negative mg/dL [facility] Comment: Clinical correlation required for positive Urine Bilirubin results as false positive may occur with some drugs and drug related products. If a false positive is suspected a serum total bilirubin should be considered if clinically indicated. Urobilinogen, Urine Dipstick Normal Normal mg/dL [facility] pH, Urn (dipstick) 6.0 5.0 - 8.0 [facility] Blood, Urine Dipstick Negative Negative mg/dL [facility] Ketone, Urine Dipstick 5(A) Negative mg/dL [facility] Nitrite, Urine Dipstick Negative Negative [facility] Leukocytes, Urine Dipstick Negative Negative [facility] Appearance, Urine Dipstick Clear Clear [facility] Specific [place] Urine Automated 1.012 1.002 - 1.030 [facility] Color, Urine Dipstick Straw Yellow [facility] Reflex to Culture No [facility] Urine specimen (specimen) 09/16/2018 6:07 AM EDT 09/16/2018 6:52 AM EDT Narrative Resulting Agency Comment Spec In Lab Javad Urban MD URINE ORDERABLES Performing Organization Address [facility] Co de Phone Number [facility] [place] [address] * POCT Glucose (09/16/2018 3:30 AM EDT) Glucose, POC 126 65 - 199 mg/dL [facility] Comment: Supplemental ranges: <140 mg/dL before meals <180 mg/dL all other times of the day Blood specimen (specimen) 09/16/2018 3:30 AM EDT 09/16/2018 3:30 AM EDT Javad Urban MD POINT OF CARE TEST O RDERABLES Performing Organization Address [facility]/ZIP Co de Phone Number [facility] [place] [address] * POCT Glucose (09/15/2018 10:59 PM EDT) Glucose, POC 143 65 - 199 mg/dL [facility] Comment: Supplemental ranges: <140 mg/dL before meals <180 mg/dL all other times of the day Blood specimen (specimen) 09/15/2018 10:59 PM EDT 09/15/2018 10:59 PM EDT Javad Urban MD POINT OF CARE TEST O JONY Performing Organization Address [facility] Co de Phone Number [facility] [place] [address] * POCT Glucose (09/15/2018 8:10 PM EDT) Glucose, POC 100 65 - 199 mg/dL [facility] Comment: Supplemental ranges: <140 mg/dL before meals <180 mg/dL all other times of the day Blood specimen (specimen) 09/15/2018 8:10 PM EDT 09/15/2018 8:10 PM EDT Javad Urban MD POINT OF CARE TEST Rosie BORGES Performing Organization Address [facility] Co de Phone Number [facility] [place] [address] * POCT Glucose (09/15/2018 3:43 PM EDT) Glucose, POC 173 65 - 199 mg/dL [facility] Comment: Supplemental ranges: <140 mg/dL before meals <180 mg/dL all other times of the day Blood specimen (specimen) 09/15/2018 3:43 PM EDT 09/15/2018 3:43 PM EDT Javad Urban MD POINT OF CARE TEST O JONY Performing Organization Address [facility] Co de Phone Number [facility] [place] [address] * POCT Glucose (09/15/2018 12:05 PM EDT) Glucose, POC 177 65 - 199 mg/dL [facility] Comment: Supplemental ranges: <140 mg/dL before meals <180 mg/dL all other times of the day Blood specimen (specimen) 09/15/2018 12:05 PM EDT 09/15/2018 12:05 PM EDT Javad Urban MD POINT OF CARE TEST O JONY Performing Organization Address [facility] de Phone Number [facility] [place] [address] * (ABNORMAL) POCT Glucose (09/15/2018 7:39 AM EDT) Glucose, POC 206(H) 65 - 199 mg/dL [facility] Comment: Supplemental ranges: <140 mg/dL before meals <180 mg/dL all other times of the day Blood specimen (specimen) 09/15/2018 7:39 AM EDT 09/15/2018 7:39 AM EDT Javad Urban MD POINT OF CARE TEST O JONY Performing Organization Address [facility] de Phone Number [facility] [place] [address] * POCT Glucose (09/15/2018 4:12 AM EDT) Glucose, POC 141 65 - 199 mg/dL [facility] Comment: Supplemental ranges: <140 mg/dL before meals <180 mg/dL all other times of the day Blood specimen (specimen) 09/15/2018 4:12 AM EDT 09/15/2018 4:12 AM EDT Javad Urban MD POINT OF CARE TEST O JONY Performing Organization Address [facility] Co de Phone Number [facility] [place] [address] * ABORH Recheck Status (09/15/2018 3:44 AM EDT) ABORH Recheck Order Order Placed [facility] ABORH Type Recheck Complete [facility] Blood specimen (specimen) 09/15/2018 3:44 AM EDT 09/15/2018 3:59 AM EDT Narrative Resulting Agency Comment Spec In Lab Ori Santos MD BLOOD BANK LAB ORDER MADHAVI Performing Organization Address City/[facility]/ZIP Co de Phone Number [facility] [place] [address] * Antibody screen (09/15/2018 3:44 AM EDT) Ab Screen Interp Negative [facility] Expires at [id number] on: 09/18/2018 [facility] Blood specimen (specimen) 09/15/2018 3:44 AM EDT 09/15/2018 3:59 AM EDT Narrative Resulting Agency Comment Spec In Lab Ori Santos MD BLOOD BANK LAB ORDER MADHAVI Performing Organization Address City/[facility] Co de Phone Number [facility] [place] [address] * ABO/Rh Typing (09/15/2018 3:44 AM EDT) Pathologist [facility] ABORH Type A Pos [facility] Blood specimen (specimen) 09/15/2018 3:44 AM EDT 09/15/2018 3:59 AM EDT Narrative Resulting Agency Comment Spec In Lab Ori Santos MD BLOOD BANK LAB ORDER MADHAVI Performing Organization Address City/[facility]/ZIP Co de Phone Number [facility] [place] [address] * (ABNORMAL) Differential, Automated (09/15/2018 3:44 AM EDT) Neutrophil % 64.7 % [facility] Neutrophil Absolute 7.24(H) 1.70 - 6.10 x10(3)/mc L [facility] Lymph % 21.6 % [facility] Lymphocytes Abs 2.4 0.9 - 3.2 x10(3)/mc L [facility] Monocyte % 10.8 % [facility] Monocyte Abs 1.2(H) 0.3 - 0.9 x10(3)/[facility] Eos % 0.2 % [facility] Eosinophils Abs 0.0 0.0 - 0.4 x10(3)/[facility] Basophil % 0.4 % [facility] Baso Absolute 0.0 0.0 - 0.1 x10(3)/[facility] Immature Gran % 2.30 % [facility] Comment: Immature granulocytes(IG's)percentage and absolute count will include metamyelocytes, myelocytes, and promyelocytes. Blood smears from CBCs yielding IG's will be scanned manually for concordance. If this scan disagrees with the automated IG or if promyelocytes are noted, a manual differential will be performed. Immature Gran Absolute 0.26(H) 0.00 - 0.04 x10(3)/[facility] Blood specimen (specimen) 09/15/2018 3:44 AM EDT 09/15/2018 4:18 AM EDT Narrative Resulting Agency Comment Spec In Lab Ori Santos MD HEMATOLOGY ORDERABLE S [facility] [place] [address] * (ABNORMAL) Hemogram (09/15/2018 3:44 AM EDT) White Blood Cell 11.2(H) 4.0 - 9.5 x10(3)/[facility] Red Blood Cell 3.05(L) 4.00 - 5.21 x10(6)/[facility] Hemoglobin 9.6(L) 11.7 - 15.5 gm/dL [facility] Hematocrit 29.5(L) 35.7 - 45.8 % [facility] Mean Cell Volume 96.7(H) 82.6 - 94.4 fL [facility] Mean Cell Hemoglobin 31.5 27.1 - 32.0 pg [facility] Mean Cell Hemoglobin Concentration 32.5 31.7 - 35.0 gm/dL [facility] Platelet 244 145 - 357 x10(3)/mc L [facility] RDW Standard Deviation 50.8(H) 37.0 - 46.0 fL [facility] RDW coefficient of variation 14.3(H) 11.5 - 14.1 % [facility] Mean Platelet Volume 10.9 7.6 - 12.9 fL [facility] NRBC% auto 0.0 % [facility] NRBC Absolute 0.000 0.000 - 0.000 x10(3)/mc L [facility] Blood specimen (specimen) 09/15/2018 3:44 AM EDT 09/15/2018 4:18 AM EDT Narrative Resulting Agency Comment Spec In Lab Ori Santos MD HEMATOLOGY ORDERABLE S Performing Organization Address City/[facility]/ZIP Co de Phone Number [facility] [place] [address] * Prothrombin Time (09/15/2018 3:44 AM EDT) Prothrombin Time 12.0 9.4 - 12.5 sec [facility] International Normalization Ratio 1.0 [facility] Comment: An INR <2.0 indicates [...] MD HEMATOLOGY ORDERABLE S Performing Organization Address City/[facility]/ZIP Co de Phone Number [facility] [place] [address] * (ABNORMAL) Basic Metabolic Panel (non-fasting) (09/15/2018 3:44 AM EDT) Glucose 135 65 - 199 mg/dL [facility] Comment:Diabetes: >=200 mg/d L plus symptoms Blood Urea Nitrogen 18 8 - 18 mg/dL [facility] Creatinine 0.74 0.70 - 1.20 mg/dL [facility] Sodium 142 135 - 145 mmol/L [facility] Potassium 3.6 3.5 - 5.0 mmol/L [facility] Comment: Please note: ??Patients with WBC >100,000 may have falsely elevated Potassium levels. ??For accurate Potassium quantification in these patients send serum separator tube (gold top) for subsequent determinations. ??Contact the Clinical Chemistry Laboratory if there are any questions. Chloride 113(H) 98 - 107 mmol/L [facility] Carbon Dioxide 20(L) 22 - 31 mmol/L [facility] Anion Gap 9 5 - 15 mmol/L [facility] Calcium 7.9(L) 8.5 - 10.5 mg/dL [facility] Est Glomerular Filtration Rate 94 >=60 mL/min/1. 73 m?? [facility] Comment: The eGFR was calculated using the CKD-EPI equation. As with all creatinine based estimates of kidney function, eGFR values calculated with the CKD-EPI equation are not accurate in patients with acute kidney failure, extremes of body mass or the acutely ill. [email or web address]/[email or web address]kf eGFR 109 >=60 mL/min/1. 73 m?? [facility] Comment: The eGFR was calculated using the CKD-EPI equation. As with all creatinine based estimates of kidney function, eGFR values calculated with the CKD-EPI equation are not accurate in patients with acute kidney failure, extremes of body mass or the acutely ill. [email or web address] Blood specimen (specimen) 09/15/2018 3:44 AM EDT 09/15/2018 4:18 AM EDT Narrative Resulting Agency Comment Spec In Lab Javad Urban MD CHEMISTRY ORDERABLES Performing Organization Address [facility] Co de Phone Number [facility] [place] [address] * POCT Glucose (09/14/2018 9:52 PM EDT) Glucose, POC 124 65 - 199 mg/dL [facility] Comment: Supplemental ranges: <140 mg/dL before meals <180 mg/dL all other times of the day Blood specimen (specimen) 09/14/2018 9:52 PM EDT 09/14/2018 9:52 PM EDT Javad Urban MD POINT OF CARE TEST O RDERABLES Performing Organization Address [facility] de Phone Number [facility] [place] [address] * Film Library- Storage Only MR Head (09/13/2018 12:10 AM EDT) Narrative [facility] - 09/15/2018 10:49 AM EDT This exam is auto-finalizing. It's purpose is for storage only. Javad Urban MD IMG FILM LIBRARY ORD ERABLES Performing Organization Address [facility] de Phone Number [place], [place] * Film Library- Storage Only Ultrasound Study (09/13/2018 12:05 AM EDT) Narrative [facility] - 09/15/2018 10:47 AM EDT This exam is auto-finalizing. It's purpose is for storage only. Javad CHIN FILM LIBRARY ORD ERABLES Performing Organization Address [facility] de Phone Number [place], [place] * Film Library- Storage Only DX Chest (09/13/2018 12:00 AM EDT) Narrative [facility] - 09/15/2018 10:46 AM EDT This exam is auto-finalizing. It's purpose is for storage only. Javad Urban MD IMG FILM LIBRARY ORD ERABLES [facility] [place], [place] documented in this encounter Visit Diagnoses [...] Fely Freeman, JULI)[id number] (Given - Provider: Mai oBse RN)2024 (Given - Provider: Stacey Duenas, JULI) [...] RN) 0449 (Given - Provider: Fely Freeman RN)8047 (Given - Provider: Mai Bose, JULI) [email or web address] [...] Routine documented in this encounter Care Teams Pharmacy Picking Tech Relationship Specialty Start Date End Date None None PCP - General 09/14/18 09/30/18 documented as of this encounter
--- OUTSIDE RECORDS SUMMARY | 2024-05-10 15:54 | XMS_ITS | Encounter Summary ---
Author Organization [facility] [place] [address] Care Team Providers Care Polyethylene Combiner Name Role Phone Unavailable Primary Care Provider Unavailabl e Encounter Details Date Type Department Care Team (Late st Contact Info) Description 09/13/2018 Ancillary Procedure Radiology Library at [facility] [place] [phone] Social History Tobacco Use Types Packs/Day Years [...] Urban MD IMG FILM LIBRARY ORD ERABLES [facility] [place] documented in this encounter Visit Diagnoses Not on filedocumented in this encounter
--- OUTSIDE RECORDS SUMMARY | 2024-05-10 15:54 | XMS_ITS | Encounter Summary ---
Author Organization [facility] Address [facility] Mraizol [place] [address] Care Team Providers Care Pulmonary Nurse Practitioner Name Role Phone None Primary Care Provider Unavailabl e Encounter Details Date Type Department Care Team (Latest Contact Info) Description 09/14/2018 2:45 PM EDT Ancillary Procedure Radiology Library at [facility] [place] [address] Javad Urban MD [facility] [place] [address] Multiple closed fractures of foot, initial encounter [...] Electronically signed by: Sheila Joaquin [facility] ([phone]), at 09/28/2018 4:31 PM --------ORIGINAL REPORT -------- [...] Electronically signed by: Sheila Joaquin [facility] ([phone]), at 09/14/2018 4:41 PM Impressions 09/14/2018 4:41 [...] Electronically signed by: Sheila Joaquin [facility] ([phone]), at 09/14/2018 4:41 PM Narrative 09/14/2018 4:41 [...] number below. Javad Urban MD IMG OUTSIDE [facility] TATION ORDERABLES documented in this encounter Visit Diagnoses Diagnosis Multiple closed fractures of foot, initial encounter documented in this encounter Care Teams Pulmonary Nurse Practitioner Relationship Specialty Start Date End Date None None PCP - General 09/14/18 09/30/18 documented as of this encounter
--- OUTSIDE RECORDS SUMMARY | 2024-05-10 15:54 | XMS_ITS | Encounter Summary ---
Author Organization [facility] BRYAN [place] [address] Care Team Providers Care Cylinder Die Machine Operator Name Role Phone Unavailable Primary Care Provider Unavailabl e Encounter Details Date Type Department Care Team (Late st Contact Info) Description 09/13/2018 12:05 AM EDT Ancillary Procedure Radiology Library at [facility] [place] [address] Social History Tobacco Use Types Packs/Day Years [...]
--- OUTSIDE RECORDS SUMMARY | 2024-05-10 15:54 | XMS_ITS | Encounter Summary ---
Author Organization [facility] Address [facility] [place] [address] Care Team Providers Care Office Coordinator Name Role Phone None Primary Care Provider Unavailabl e Encounter Details Date Type Department Care Team (Late st Contact Info) Description 09/14/2018 Orders [place] [address] Josseline Macedo MD [facility] [place] [address] Multiple closed fractures of left foot, initial [...] number below. Javad Urban MD IMG OUTSIDE [facility] TATION ORDERABLES documented in this encounter Visit Diagnoses Diagnosis Multiple closed fractures of left foot, initial encounter Multiple closed fractures of foot, initial encounter documented in this encounter Care Teams Office Coordinator Relationship Specialty Start Date End Date None None PCP - General 09/14/18 09/30/18 documented as of this encounter
--- OUTSIDE RECORDS SUMMARY | 2024-05-10 15:54 | XMS_ITS | Encounter Summary ---
[place] [address] Care Team Providers Care Conversion Developer Name Role Phone Emma Miramontes APRN Primary Care Provider [phone] Reason for Visit * Reason Comments Skin Problem Encounter Details Date Type Department Care Team (Late st Contact Info) Description 09/24/2011 4:15 PM EDT Office Visit Dermatology [address] [place] [address] [address] [place] [address] Hammad Fields MD [address] [facility], [place] [address] Psoriasiform dermatitis (Primary Dx) Social History Tobacco [...] in consultation by Emma Miramontes from the [facility]. The patient states that her daughter [...] disorders documented in this encounter Care Teams Conversion Developer Relationship Specialty Start Date End Date Emma Miramontes APRN PCP - General 04/16/10 12/10/17 documented as of this encounter
--- OUTSIDE RECORDS SUMMARY | 2024-05-10 15:54 | XMS_ITS | Encounter Summary ---
Author Organization [facility] [place] [address] Care Team Providers Care Spa Experience Coordinator Name Role Phone Unavailable Primary Care Provider Unavailabl e Encounter Details Date Type Department Care Team (Late st Contact Info) Description 09/12/2018 Ancillary Procedure Radiology Library at [facility] [place] [address] Aparna Reed MD [facility] [place] [address] Social History Tobacco Use Types Packs/Day Years [...] Reed MD IMG FILM LIBRARY ORD ERABLES [place], [place] documented in this encounter Visit Diagnoses Not on filedocumented in this encounter
--- OUTSIDE RECORDS SUMMARY | 2024-05-10 15:54 | XMS_ITS | Encounter Summary ---
Author Organization [facility] Address [facility] [place] [address] Care Team Providers Care Zigzag Stitcher Name Role Phone None Primary Care Provider Unavailabl e Reason for Visit * Auth/Cert Specialty Diagnoses / Procedures Referred By Contac t Referred To Contact Diagnoses Fracture of unspecified tarsal bone(s) of unspecified foot, initial encounter for closed fracture CLOSED HEAD INJURY, FOOT BONE FX'S -CONFUSED Procedures EMERGENCY IPI Referral ID Status Reason Start Date Expiration Date Visits Re quested Visits Authorized [id number] 1 1 Encounter Details Date Type Department Care Team (Late st Contact Info) Description 09/16/2018 10:16 AM EDT Anesthesia [place] [address] Ron Duong MD [facility] [place] [address] Chauncey Castro MD [facility] [place] [address] Anesthesia Record Procedure Summary Procedure Name Responsible [...] 1032; metacarpal vein (top of hand), left; pypw-cuq-ukgufh catheter system; 20 gauge; Ron Duong; removed [...] Duong MD - 09/16/2018 4:11 PM EDT [facility] Department of Anesthesiology Post-procedure Note Patient: Jenae La Procedure Summary Date: 09/16/18 Room / Location: [facility] MAIN OR Anesthesia Start: 1016 Anesthesia Stop: [...] All Anesthesia Providers: Anesthesiologist: Ron Duong MD EQUINE MANAGER: Lisa Birmingham CRNA Vitals Value Taken Time BP 135/75 09/16/2018 2:39 PM Temp 36.2 ??C (97.2 ??F) 09/16/2018 2:39 PM Pulse 61 09/16/2018 2:41 PM Resp 15 09/16/2018 2:41 PM SpO2 97 % 09/16/2018 2:56 PM Pain Level 9 09/16/2018 2:39 PM Vitals shown include unvalidated device data. Patient Location: PACU/[facility] Level of Consciousness: Awake and Alert [...] Chlorhexidine Skin Anesthetic: Lidocaine 1% dose: 6 U-kdtvr-nqxfx 21 10 cm Ultrasound Guided: Live and [...] Single-shot BUpivacaine 0.25%, 40 mL no complications Resident/EQUINE MANAGER:: Delvin Byrd MD Fellow:: Chauncey Castro MD [...] 12.0 09/15/2018 No results found for: TSH, Q1MEGJG, TT4, THYROIDAB No results found for: HA1C Plan is for GA with ETT, standard ASA monitors, and adequate IV access. Bilateral pop-sciatic, saphenous nerve blocks for post op pain control Region - Other Informed Consent: Anesthetic plan and risks discussed with patient. Use of blood products discussed with patient who consented to blood products. Plan discussed with EQUINE MANAGER and attending. PAT Clinic Note documented in [...] ??Chlorhexidine Skin Anesthetic: ??Lidocaine 1% dose: ??6 K-anhbw-kujii 21 10 cm Ultrasound Guided: ??Live and [...] BUpivacaine 0.25%, 40 mL no complications ?? Resident/EQUINE MANAGER:: ??Delvin Byrd MD Fellow:: ??Chauncey Castro MD Attending Physician:: ??Ron Duong MD 20mL's each side Ron Duong MD [facility] D[facility] documented in this encounter Visit Diagnoses [...] mg documented in this encounter Care Teams Zigzag Stitcher Relationship Specialty Start Date End Date None None PCP - General 09/14/18 09/30/18 documented as of this encounter
--- OUTSIDE RECORDS SUMMARY | 2024-05-10 15:54 | XMS_ITS | Encounter Summary ---
Author Organization [facility] [place] [address] Care Team Providers Care Manager Of Marketing Name Role Phone None Primary Care Provider Unavailabl e Encounter Details Date Type Department Care Team (Late st Contact Info) Description 09/14/2018 Telephone [place] [id number] Josseline Macedo MD [facility] DR [place] [address] Social History Tobacco Use Types Packs/Day Years Used Date Smoking Tobacco: Former Sex and Gender Information Value Date Recorded Sex Assigned at Not on file Gender Identity Not on file Sexual Orientation Not on file documented as of this encounter Miscellaneous Notes * Telephone Encounter - Josseline Macedo MD - 09/14/2018 12:58 PM EDT Received transfer center phone call from Dr. Florentino at [facility] regarding patient who is an inpatient there. [...] did have a head CT again w [facility] we do not have in our system but per report was negative. She does have abrasions on her head.Dr. Peña and orthopedic provider at [facility] reports that he has taken care of the patient on an outpatient basis and that she is now back to her baseline. Patient's past medical history is notable for COPD, LORRI on CPAP, diabetes on insulin, chronic opioid use currently on [place] per report, fibromyalgia Patient is not on [...] syncope vs seizure- on empiric keppra per [facility] neurology 2. PNA - per report CT [...] on filedocumented in this encounter Care Teams Manager Of Marketing Relationship Specialty Start Date End Date None None PCP - General 09/14/18 09/30/18 documented as of this encounter
[2024-05-10 16:53] LABS: ALT 25 U/L (14-59); AST 20 U/L (15-37); Alkaline Phosphatase 81 U/L (46-116); Anion Gap 10.5 mmol/L (3-11); BUN 22 mg/dL (7-18); CO2 22.5 mmol/L (21.0-32.0); Calcium 8.9 mg/dL (8.5-10.1); Calculated LDL 154 mg/dL (<100); Chloride 106 mmol/L (98-107); Cholesterol 241 mg/dL (<200); Estimated GFR 66.12 (mL/min/1.73m2); Glucose 225 mg/dL (74-106); HDL Cholesterol 57 mg/dL (40-60); Magnesium 1.8 mg/dL (1.8-2.4); Potassium 3.7 mmol/L (3.5-5.1); Sodium 139 mmol/L (136-145); Total Protein 7.2 g/dL (6.4-8.2); Triglyceride 153 mg/dL (<150)
[2024-05-10 17:27] LABS: Ferritin 112 ng/mL (8-252)
== END 2024-05-10 15:50 | disposition home or self-care (01) ==
LOC: NCHCN 15:49
PROVIDERS: PCP Nurse Practitioner Family; Visit Provider Physician Assistant Medical
DX: E78.5 Hyperlipidemia, unspecified (principal)
CPT/HCPCS: 80053; 80061; 82728; 83735

== ENCOUNTER 2024-06-08 15:04 | Outpatient (REF) | payer MEDICARE, MEDICAID, SELFPAY ==
--- OUTSIDE RECORDS SUMMARY | 2024-06-08 15:11 | XMS_ITS | Encounter Summary ---
Author Organization [facility] Address [address] [place] [address] Care Team Providers Care Customer Support Technician Name Role Phone Una Dickinson Primary Care Provider + Encounter Details Date Type Department Care Team (Late st Contact Info) Description 05/28/2022 Lab Requisition [facility] Pathology & Laboratory Medicine - [facility] [address] [place], [place] [address] Outr Resulting Lab, Provider Social History Tobacco [...] Result (FLARES) Negative Negative 05/29/2022 22:01 EST [facility] FLU B RNA Result (FLBRES) Negative Negative 05/29/2022 22:01 EST [facility] RSV RNA Result (RSVRES) Negative Negative 05/29/2022 22:01 EST [facility] Swab ENTIRE NASOPHARYNX / Unknown 05/28/2022 11:00 EST 05/29/2022 17:48 EST us Provider Outr Resulting Lab MICROBIOLOGY - GENER AL ORDERABLES Final Result Performing Organization Address City/State/[facility] Co de Phone Number [facility] [address] [place] [address] documented in this encounter Visit Diagnoses Not on filedocumented in this encounter Care Teams Customer Support Technician Relationship Specialty Start Date End Date Una Dickinson PA PCP - General 11/10/17 documented as of this encounter
--- OUTSIDE RECORDS SUMMARY | 2024-06-08 15:11 | XMS_ITS | Referral Summary ---
Author Organization [facility] Address [address] [place] [address] Care Team Providers Care Employment Appeals Examiner Name Role Phone Una Dickinson Primary Care [...] file Insurance MEDICAID [place] MEDICARE Care Teams Employment Appeals Examiner Relationship Specialty Start Date End Date Una Dickinson PA PCP - General 11/10/17
--- OUTSIDE RECORDS SUMMARY | 2024-06-08 15:11 | XMS_ITS | Encounter Summary ---
Author Organization [facility] Address [address] [place] [address] Care Team Providers Care Bereavement Counselor Name Role Phone Una Dickinson Primary Care Provider + Encounter Details Date Type Department Care Team (Late st Contact Info) Description 09/28/2019 Lab Requisition [facility] Pathology & Laboratory Medicine - [facility] [address] [place], [place] [address] Outr Resulting Lab, Provider Social History Tobacco [...] Not Detected Not Detected 09/29/2019 15:20 EDT [facility] Comment: This test has not [...] or revoked sooner. ??Factsheets for healthcare providers: ??https://www.fda.gov/media/512839/download Factsheets for patients: https://www.fda.gov/media/841289/download Negative results do not preclude infection with SARS-CoV-2 virus, and should not be the sole basis of a patient management decision. Swab ENTIRE NASOPHARYNX / Unknown 09/28/2019 14:15 EDT 09/28/2019 20:25 EDT us Provider Outr Resulting Lab MICROBIOLOGY - GENER AL ORDERABLES Final Result Performing Organization Address City/State/[facility] [[email or web address]] Co de Phone Number [facility] [address] [place] [address] * COVID-19 TESTING (09/28/2019 14:15 EDT) COVID-19 rt-PCR Result Not Detected Not Detected 09/29/2019 15:37 EDT [facility] Comment: This test has not [...] or revoked sooner. ??Factsheets for healthcare providers: ??https://www.fda.gov/media/543396/download Factsheets for patients: https://www.fda.gov/media/592930/download Negative results do not preclude infection with SARS-CoV-2 virus, and should not be the sole basis of a patient management decision. Performing Lab [facility] 09/29/2019 15:37 EDT [facility] Swab ENTIRE NASOPHARYNX / Unknown 09/28/2019 14:15 EDT 09/28/2019 20:25 EDT us Provider Outr Resulting Lab MICROBIOLOGY - GENER AL ORDERABLES Final Result [facility] [address] LABORATORY [address] [place] [address] documented in this encounter Visit Diagnoses Not on filedocumented in this encounter Care Teams Bereavement Counselor Relationship Specialty Start Date End Date Una Dickinson PA PCP - General 11/10/17 documented as of this encounter
--- OUTSIDE RECORDS SUMMARY | 2024-06-08 15:11 | XMS_ITS | Clinical Summary ---
Author Organization [facility] Address [address] [place] [address] Care Team Providers Care Fulfillment Specialist Name Role Phone Una Dickinson Primary Care [...] Vaccine ( season) 2024 Insurance MEDICAID [place] [facility] Address: [address] [address] MEDICARE Care Teams Fulfillment Specialist Relationship Specialty Start Date End Date Una Dickinson PA PCP - General 11/10/17
--- OUTSIDE RECORDS SUMMARY | 2024-06-08 15:11 | XMS_ITS | Encounter Summary ---
Author Organization [facility] Address [address] [place] [address] Care Team Providers Care Hearing Aid Mechanic Name Role Phone Unavailable Primary Care Provider Unavailabl e Encounter Details Date Type Department Care Team (Late st Contact Info) Description 09/23/2005 Results Only [facility] conversion [address] [place] [address] Abdirashid Parmar, DO [address] [facility] MELISSA [address]INDQUIST [address] [place], [place] [id number] Social History Tobacco Use Types Packs/Day Years [...] ? [place] ? Accession #: ? [id number] ? : ? 1965 (Age: 40) ??F ? Collect Date: ? 09/23/2005 ? Location: ? [facility] ? Receive Date: ? 09/23/2005 ? Provider: ABDIRASHID PARAMR DO Copy to: GRADY ROSA MD ? [...] noted in any of the esophageal biopsies. /[facility] Document reviewed and electronically signed by: [...] soft tissue, entirely submitted as (D). ??(Nieves Davila)/[facility] End of Report [facility] [place] 09/23/2005 09/23/2005 15: 31 EDT us Abdirashid Parmar DO PATHOLOGY ORDERABLES Fi nal Result [facility] [address] [place] [address] documented in this encounter Visit Diagnoses Not on filedocumented in this encounter
--- OUTSIDE RECORDS SUMMARY | 2024-06-08 15:11 | XMS_ITS | Encounter Summary ---
Author Organization [facility] Address [address] [place] [address] Care Team Providers Care Sap Trainer Name Role Phone Unavailable Primary Care Provider Unavailabl e Encounter Details Date Type Department Care Team (Latest Contact Info) Description 11/16/2000 15:32 EDT Hospital Encounter [facility] Emergency Department - [facility] [place] [facility] [address] [place], [place] [id number] Emergency, Default, MD Discharge Disposition: Home or [...] fracture or dislocation. /wades Raya Millan PA-C [facility] ORDE RABLES Final Result * [...] thumb r/o fx + Raya Millan PA-C [facility] ORDE RABLES Final Result documented in this encounter Visit Diagnoses Not on filedocumented in this encounter
--- OUTSIDE RECORDS SUMMARY | 2024-06-08 15:11 | XMS_ITS | Encounter Summary ---
Author Organization [facility] Address [address] [place] [address] Care Team Providers Care Web Merchandiser Name Role Phone Una Dickinson Primary Care Provider + Encounter Details Date Type Department Care Team (Late st Contact Info) Description 10/06/2019 Lab Requisition [facility] Pathology & Laboratory Medicine - [facility] [address] [place], [place] [address] Outr Resulting Lab, Provider Social History Tobacco [...] difficile PCR Negative Negative 10/06/2019 14:[address] [facility] Feces SPECIMEN FROM RECTUM / Unknown 10/04/2019 8:00 EDT 10/06/2019 9:51 EDT us Provider Outr Resulting Lab MICROBIOLOGY - GENER AL ORDERABLES Final Result [facility] [address] [place] [address] documented in this encounter Visit Diagnoses Not on filedocumented in this encounter Care Teams Web Merchandiser Relationship Specialty Start Date End Date Uan Dickinson PA PCP - General 11/10/17 documented as of this encounter
--- OUTSIDE RECORDS SUMMARY | 2024-06-08 15:11 | XMS_ITS | Encounter Summary ---
Author Organization [facility] Address [address] [place] [address] Care Team Providers Care Salesperson Women'S Dresses Name Role Phone Una Dickinson Primary Care Provider + Encounter Details Date Type Department Care Team (Late st Contact Info) Description 10/05/2019 Lab Requisition [facility] Pathology & Laboratory Medicine - [facility] [address] [place], [place] [address] Outr Resulting Lab, Provider Social History Tobacco [...] Salmonella PCR Negative Negative 10/06/2019 12:12 EDT [facility] Shigella/Enteroin vasive E. coli Negative Negative 10/06/2019 12:12 EDT [facility] HN LAB CAMPYLOBACTER PCR Negative Negative 10/06/2019 12:12 EDT [facility] Shiga Toxin PCR Negative Negative 0 12:12 EDT [facility] Feces SPECIMEN FROM RECTUM / Unknown 10/04/2019 8:00 EDT 10/05/2019 16:56 EDT us Provider Outr Resulting Lab MICROBIOLOGY - GENER AL ORDERABLES Final Result [facility] [address] [place] [address] documented in this encounter Visit Diagnoses Not on filedocumented in this encounter Care Teams Salesperson Women'S Dresses Relationship Specialty Start Date End Date Una Dickinson PA PCP - General 11/10/17 documented as of this encounter
--- OUTSIDE RECORDS SUMMARY | 2024-06-08 15:11 | XMS_ITS | Encounter Summary ---
Author Organization [facility] Address [address] [place] [address] Care Team Providers Care Canvas Goods Fabricator Name Role Phone Unavailable Primary Care Provider Unavailabl e Encounter Details Date Type Department Care Team (Late st Contact Info) Description 04/14/2003 Results Only [facility] conversion [address] [place] [address] Maria E Esquivel MD [address] [place] [address] [place] [address] Social History Tobacco Use Types Packs/Day Years [...] ? [place] ? Accession #: ? [id number] ? : ? 1965 (Age: 37) ??F [...] of 0.2 cm. No are identified. ??Three retail service representative sections of normal-appearing fallopian tube are submitted as (A1), and two retail service representative sections of the dilated portion are submitted as (A2). ??(Dr. Beverly)/[facility] End of Report [facility] 04/14/2003 04/14/2003 15: 13 EST us Maria E Esquivel MD PATHOLOGY ORDERABLES Final Resu lt [facility] [address] [place] [address] documented in this encounter Visit Diagnoses Not on filedocumented in this encounter
--- OUTSIDE RECORDS SUMMARY | 2024-06-08 15:11 | XMS_ITS | Encounter Summary ---
Author Organization [facility] Address [address] [place] [address] Care Team Providers Care Release Of Information Clerk Name Role Phone Carlos Hyde MD Primary Care Provider [phone] Encounter Details Date Type Department Care Team (Late st Contact Info) Description 11/06/2017 Results Only [facility] [phone] Carolyn Ferrara, DO [address] [place] [address] Social History Tobacco Use Types [...] ? [place] ? Accession #: ? [id number] ? : ? 1965 (Age: 52) ??F [...] (ASCP) 11/09/2017 7:44 AM End of Report [facility] 11/06/2017 23:4 4 EDT 11/06/2017 23:44 EDT us Carolyn Ferrara DO PATHOLOGY ORDERABLES Final Res ult [facility] [address] [place] [address] documented in this encounter Visit Diagnoses Not on filedocumented in this encounter Care Teams Release Of Information Clerk Relationship Specialty Start Date End Date Carlos Hyde MD PCP - General 03/31/15 11/09/17 documented as of this encounter
--- OUTSIDE RECORDS SUMMARY | 2024-06-08 15:11 | XMS_ITS | Encounter Summary ---
Author Organization [facility] Address [address] [place] [address] Care Team Providers Care Chrome Plater Helper Name Role Phone Una Dickinson Primary Care Provider + Encounter Details Date Type Department Care Team (Late st Contact Info) Description 06/06/2021 Lab Requisition [facility] Pathology & Laboratory Medicine - [facility] [address] [place] [address] Alejandra Norris PA-C [address] [place] [address] Encounter for other general examination [...] management options, if applicable. 06/10/2021 11:19 EST [facility] Final Diagnosis A. SKIN OF BREAST, RIGHT, SUPERIOR/MEDIAL, BIOPSY: - Most suggestive of prurigo nodularis. See microscopic. B. SKIN OF BREAST, RIGHT, LATERAL, EXCISION: - Epidermal ulceration with dermal reactive change. See microscopic. 06/10/2021 11:19 [facility] Attestation By the signature below, the attending physician certifies that they have 1) personally conducted a gross and/or microscopic examination of the described specimen(s), and/or personally interpreted the results of laboratory testing of the described specimen(s), and 2) personally rendered or confirmed the above diagnosis. 06/10/2021 11:19 [facility] at [address] Microscopic Description Part [...] examined. Clinical correlation is recommended. 06/10/2021 11:19 [facility] Clinical History Skin lesions right breast 06/10/2021 11:19 [facility] Gross Description A. Received in [...] LILLY FARRAR(ASCP) 06/07/2021 7:46 06/10/2021 11:19 EST [facility] Performing Lab [facility] 06/10/2021 11:19 EST [facility] Scanned Images 06/10/2021 11:19 EST [facility] Tissue TISSUE SPECIMEN FROM SKIN / Unknown 06/06/2021 15:15 EST 06/06/2021 23:44 EST Tissue specimen (specimen) SPECIMEN FROM SKIN / Unknown 06/06/2021 15:15 EST 06/06/2021 23:44 EST us Alejandra Norris PA-C PATHOLOGY ORDERABLES Final Result [facility] [address] [place] [address] documented in this encounter Visit Diagnoses Diagnosis Encounter for other general examination documented in this encounter Care Teams Chrome Plater Helper Relationship Specialty Start Date End Date Una Dickinson PA PCP - General 11/10/17 documented as of this encounter
--- OUTSIDE RECORDS SUMMARY | 2024-06-08 15:11 | XMS_ITS | Encounter Summary ---
Author Organization [facility] Address [address] [place] [address] Care Team Providers Care Procedures Tech Name Role Phone Unavailable Primary Care Provider Unavailabl e Encounter Details Date Type Department Care Team (Late st Contact Info) Description 10/16/2003 Results Only [facility] conversion [address] [place] [address] Doris Tay MD [address] [place], [place] [id number] Social History Tobacco Use Types Packs/Day Years [...] ? [place] ? Accession #: ? [id number] : ? 1965 (Age: 38) ??F ?Collect [...] ORDERABLES Final Resul t Performing Organization Address City/State/[facility] Co de Phone Number [facility] [address] [place] [address] documented in this encounter Visit Diagnoses Not on filedocumented in this encounter
--- OUTSIDE RECORDS SUMMARY | 2024-06-08 15:11 | XMS_ITS | Encounter Summary ---
Author Organization [facility] Address [address] [place] [address] Care Team Providers Care Trench Pipe Layer Helper Name Role Phone Una Dickinson Primary Care Provider + Encounter Details Date Type Department Care Team (Late st Contact Info) Description 01/09/2021 Lab Requisition [facility] Pathology & Laboratory Medicine - [facility] [address] [place] [address] Outr Resulting Lab, Provider Social History Tobacco [...] IGA <1.2 <4.0 U/mL 01/14/2021 12:53 EDT [facility] Comment: A negative result may be due to IgA deficiency and does not rule out celiac disease. ? Negative: ??<4.0 U/mL ? Weak Positive: ??4.0 - 10.0 U/mL ? Positive: ??>10.0 U/mL Results were obtained with the [employer] QUANTA Lite R h-tTG IgA DANYELLE assay on the [employer] DSX. IgA 80(L) 85 - 499 mg/dL 01/14/2021 12:53 EDT [facility] Celiac Disease Interpretation Low total serum IgA. Recommend referral to gastroenterology specialist for additional evaluation. 01/14/2021 12:53 EDT [facility] Blood VENOUS BLOOD / Unknown 01/08/2021 12:10 EDT 01/09/2021 16:17 EDT us Provider Outr Resulting Lab IMMUNOLOGY AND SEROL OGY ORDERABLES Final Result Performing Organization Address City/State/[facility] Co de Phone Number [facility] [address] [place] [address] documented in this encounter Visit Diagnoses Not on filedocumented in this encounter Care Teams Trench Pipe Layer Helper Relationship Specialty Start Date End Date Una Dickinson PA PCP - General 11/10/17 documented as of this encounter
--- OUTSIDE RECORDS SUMMARY | 2024-06-08 15:11 | XMS_ITS | Encounter Summary ---
Author Organization [facility] Address [address] [place] [address] Care Team Providers Care Growth Media Mixer Mushroom Name Role Phone Unavailable Primary Care Provider Unavailabl e Encounter Details Date Type Department Care Team (Late st Contact Info) Description 05/15/2004 Results Only [facility] conversion [address] [place] [address] Ld Yanez MD [address] [place], [place] [id number] Social History Tobacco Use Types Packs/Day Years [...] ? [place] ? Accession #: ? [id number] ? : ? 1965 (Age: 38) ??F [...] (A). ?? Received in formalin [facility] and uterus, cervix, colleen ovaries, right tube [...] ?Posterior endomyometrium B4 ?Posterior cervix B5 ?Two sales representative health insurance sections of right fallopian tube and one sales representative health insurance section of right ? ovary with angel nodule B6 ?Program Mgr section of left ovary (Dr. Ledbetter-AF)/tmg End of Report [facility] 05/15/2004 05/16/2004 8:1 7 EST us Ld Yanez MD PATHOLOGY ORDERABLES Final Resul t [facility] [address] [place] [address] documented in this encounter Visit Diagnoses Not on filedocumented in this encounter
--- OUTSIDE RECORDS SUMMARY | 2024-06-08 15:11 | XMS_ITS | Encounter Summary ---
Author Organization [facility] Address [address] [place] [address] Care Team Providers Care Field Case Manager Name Role Phone Una Dickinson Primary Care Provider + Encounter Details Date Type Department Care Team (Late st Contact Info) Description 10/05/2019 Lab Requisition [facility] Pathology & Laboratory Medicine - [facility] [address] [place], [place] [address] Outr Resulting Lab, Provider Social History Tobacco [...] and Giardia Antigen Neg 0 10:41 EDT [facility] Feces SPECIMEN FROM RECTUM / Unknown 10/04/2019 8:00 EDT 10/05/2019 16:55 EDT us Provider Outr Resulting Lab MICROBIOLOGY - GENER AL ORDERABLES Final Result Performing Organization Address [facility] Co de Phone Number [facility] [address] [place] [address] * OVA/PARASITE EXAM (10/04/2019 8:00 EDT) Parasite No ova and parasites seen. 10/06/2019 13:58 EDT [facility] Feces SPECIMEN FROM RECTUM / Unknown 10/04/2019 8:00 EDT 10/05/2019 16:55 EDT Narrative [facility] - 10/06/2019 13:58 EDT (If Cryptosporidium, Cyclospora, or Microsporidium are suspected, specific tests must be requested.) Single negative specimen does not rule out the possibility of a parasitic infection. us Provider Outr Resulting Lab MICROBIOLOGY - GENER AL ORDERABLES Final Result Performing Organization Address [facility] Co de Phone Number [facility] [address] [place] [address] documented in this encounter Visit Diagnoses Not on filedocumented in this encounter Care Teams Field Case Manager Relationship Specialty Start Date End Date Una Dickinson PA PCP - General 11/10/17 documented as of this encounter
--- OUTSIDE RECORDS SUMMARY | 2024-06-08 15:11 | XMS_ITS | Encounter Summary ---
Author Organization [facility] Address [address] [place] [address] Care Team Providers Care X Ray Examiner Of Aircraft Name Role Phone Unavailable Primary Care Provider Unavailabl e Encounter Details Date Type Department Care Team (Late st Contact Info) Description 05/02/2008 Before PRISM Converted Visit ([facility]) [facility] conversion [address] [place] [address] Emma Zapata, MEDIA STRATEGIST [facility] [address] [place], [place] [id number] Social History Tobacco Use Types Packs/Day Years [...] ? [place] ? Accession #: ? [id number] ? : ? 1965 (Age: 42) ??F [...] [facility] 05/02/2008 05/03/2008 us Emma Zapata MEDIA STRATEGIST PATHOLOGY ORDERABLES Final Resu lt [facility] [address] [place] [address] documented in this encounter Visit Diagnoses Not on filedocumented in this encounter
--- OUTSIDE RECORDS SUMMARY | 2024-06-08 15:11 | XMS_ITS | Encounter Summary ---
Author Organization [facility] Address [address] [place] [address] Care Team Providers Care Inserter Operator Name Role Phone Una Dickinson Primary Care Provider + Encounter Details Date Type Department Care Team (Late st Contact Info) Description 01/03/2021 Lab Requisition [facility] Pathology & Laboratory Medicine - [facility] [address] [place], [place] [address] Outr Resulting Lab, Provider Social History Tobacco [...] DETECTION, PCR Negative Negative 01/04/2021 11:31 EDT [facility] Comment:This test was maame alfredo and its performance characteristics determined by [facility]. It has not been cleared or [...] AL ORDERABLES Final Result Performing Organization Address City/[facility] Co de Phone Number [facility] [address] [place] [address] * HERPES SIMPLEX VIRUS MOLECULAR DETECTION, PCR (01/02/2021 11:15 EDT) Herpes Simplex Virus Molecular Detection 1, PCR Negative Negative 01/04/2021 11:32 EDT [facility] Herpes Simplex Virus Molecular Detection 2, PCR Negative Negative 01/04/2021 11:32 EDT [facility] Swab ENTIRE BUTTOCK / Unknown 01/02/2021 11:15 EDT 01/03/2021 17:26 EDT us Provider Outr Resulting Lab MICROBIOLOGY - GENER AL ORDERABLES Final Result Performing Organization Address City/[facility] Co de Phone Number [facility] [address] [place] [address] documented in this encounter Visit Diagnoses Not on filedocumented in this encounter Care Teams Inserter Operator Relationship Specialty Start Date End Date Una Dickinson PA PCP - General 11/10/17 documented as of this encounter
--- OUTSIDE RECORDS SUMMARY | 2024-06-08 15:11 | XMS_ITS | Encounter Summary ---
Author Organization [facility] Address [address] [place] [address] Care Team Providers Care Ways Operator Name Role Phone Unavailable Primary Care Provider Unavailabl e Encounter Details Date Type Department Care Team (Late st Contact Info) Description 08/12/2002 Results Only [facility] [address] [place] [address] Sachin Bueno MD Social History Tobacco Use Types Packs/Day Years [...] ? [place] ? Accession #: ? [id number] : ? 1965 (Age: 37) ??F ?Collect [...] End of Report [facility] 08/12/2002 2002 Sachin Bueno MD PATHOLOGY ORDERABLES Final Res ult [facility] [address] [place] [address] documented in this encounter Visit Diagnoses Not on filedocumented in this encounter
--- OUTSIDE RECORDS SUMMARY | 2024-06-08 15:11 | XMS_ITS | Encounter Summary ---
Author Organization [facility] Address [address] [place] [address] Care Team Providers Care Clinical Documentation Consultant Name Role Phone Carlos Hyde MD Primary Care Provider [phone] Encounter Details Date Type Department Care Team (Latest Contact Info) Description 11/06/2017 13:27 EDT - 11/06/2017 23:59 EDT Hospital Encounter [address] [address] [place], MD Sachin Discharge Disposition: Home or Self Care Social [...] Code Departure Means Destination Home or Self Prison documented in this encounter Plan of Treatment Not on file documented as of this encounter Visit Diagnoses Not on filedocumented in this encounter Care Teams Clinical Documentation Consultant Relationship Specialty Start Date End Date Carlos Hyde MD PCP - General 03/31/15 11/09/17 documented as of this encounter
--- OUTSIDE RECORDS SUMMARY | 2024-06-08 15:11 | XMS_ITS | Encounter Summary ---
Author Organization [facility] Address [address] [place] [address] Care Team Providers Care Auto Painter Name Role Phone Una Dickinson Primary Care Provider + Encounter Details Date Type Department Care Team (Late st Contact Info) Description 10/12/2019 Lab Requisition [facility] Pathology & Laboratory Medicine - [facility] [address] [place], [place] [address] Outr Resulting Lab, Provider Social History Tobacco [...] 85 - 499 mg/dL 10/13/2019 10:53 EDT [facility] Blood VENOUS BLOOD / Unknown 10/11/2019 11:50 EDT 10/12/2019 15:42 EDT us Provider Outr Resulting Lab CHEMISTRY & BLOOD GA S ORDERABLES Final Result [facility] [address] [place] [address] documented in this encounter Visit Diagnoses Not on filedocumented in this encounter Care Teams Auto Painter Relationship Specialty Start Date End Date Una Dickinson PA PCP - General 11/10/17 documented as of this encounter
--- OUTSIDE RECORDS SUMMARY | 2024-06-08 15:12 | XMS_ITS | Encounter Summary ---
Author Organization [facility] Address [facility] [place] [address] Care Team Providers Care Cable Coverer Name Role Phone None Primary Care Provider Unavailabl e Reason for Referral * Consultation (Routine) - Closed Specialty Diagnoses / Procedures Referred By Contac t Referred To Contact Infectious Diseases Diagnoses 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 termite exterminator helper current use of antibiotics Juan Yo MD [facility] [place] [address] [facility] Infectious Dis [address] [place] [address] Referral ID Status Reason Start Date Expiration Date V isits Requested Visits Authorized [id number] Closed Assume Subset of Care 11/24/2023 11/23/2024 1 1 Encounter Details Date Type Department Care Team (Late st Contact Info) Description 11/23/2023 Orders Only [place] [id number] Juan Yo MD [facility] [place] [address] 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; [facility] current use of antibiotics Social History Tobacco Use Types Packs/Day Years Used Date Smoking Tobacco: Every Day Cigarettes 1 28 Smokeless Tobacco: Never Comments:Currently using kalia otine inhaler to help herself quit (11/08/18) Alcohol Use Standard Drinks/Week Comments Not Currently 0 (1 standard drink = 0.6 oz pur e alcohol) [facility] Utilities Answer Date Recorded In the [...] Outpatient Referral Routine 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 termite exterminator helper current use of antibiotics Ordered: 11/24/2023 documented as of this encounter Visit Diagnoses Diagnosis 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 [facility] current use of antibiotics Encounter for long-term (current) use of antibiotics documented in this encounter Care Teams Cable Coverer Relationship Specialty Start Date End Date None None PCP - General 12/01/23 documented as of this encounter
--- OUTSIDE RECORDS SUMMARY | 2024-06-08 15:12 | XMS_ITS | Encounter Summary ---
Author Organization [facility] Address [facility] [place] [address] Care Team Providers Care Repairer Veneer Sheet Name Role Phone None Primary Care Provider Unavailabl e Encounter Details Date Type Department Care Team (Late st Contact Info) Description 11/23/2023 Orders Only Infectious Disease at [facility] [place] [address] Juan oY MD [facility] [place] [address] 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; detention current use of antibiotics Social History Tobacco Use Types Packs/Day Years Used Date Smoking Tobacco: Every Day Cigarettes 1 28 Smokeless Tobacco: Never Comments:Currently using kalia otine inhaler to help herself quit (11/08/18) Alcohol Use Standard Drinks/Week Comments Not Currently 0 (1 standard drink = 0.6 oz pur e alcohol) [facility] Utilities Answer Date Recorded In the past 12 months has e [employer], gas, oil, or water [employer] threatened to shut off services in your [...] any time in the past 12 m [facility], were you homeless or living in a [...] Guidance (IV Team) (11/25/2023 9:58 AM EDT) Sell My [employer] NOW Signature WORKSTATION ID [id number] RAD Anatomical Region Laterality Modality N/A Radio [...] who have questions please contact the health acute care registered nurse that requested your imaging first. ? Narrative [...] patients who have questions please contactthe health acute care registered nurse that requested your imaging first. Juan Yo MD IMG FLUORO ORDERABL ES documented in this encounter Visit Diagnoses Diagnosis 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 detention current use of antibiotics Encounter for long-term (current) use of antibiotics 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 detention current use of antibiotics Encounter for long-term (current) use of antibiotics documented in this encounter Care Teams Repairer Veneer Sheet Relationship Specialty Start Date End Date None None PCP - General 12/01/23 documented as of this encounter
--- OUTSIDE RECORDS SUMMARY | 2024-06-08 15:12 | XMS_ITS | Encounter Summary ---
Author Organization [facility] Address [facility] [place] [address] Care Team Providers Care Toll Repairer Central Office Name Role Phone None Primary Care Provider Unavailabl e Encounter Details Date Type Department Care Team (Late st Contact Info) Description 12/01/2023 3:38 PM EDT - 12/01/2023 5:23 PM EDT [place] [phone] Fidel Naranjo MD [facility] [place] [address] EXCISION BENIGN TUMOR OR CYST, MANDIBLE (WRVU [...] In the past 12 months has e [employer], gas, oil, or water [employer] threatened to shut off services in your [...] any time in the past 12 m [facility], were you homeless or living [...] your PICC line please call Infectious Disease: [phone]. Pain Control - use acetaminophen (Tylenol) and/or [...] get Peridex on the $4 list at [facility]. Activity: A good rule of thumb is [...] Fahrenheit -Bleeding Contact: -You can reach the [facility] clinic at [phone] for appointment questions. Follow Up: You will [...] PM Alea Bailey APRN Infectious Disease at [facility] Arrive at: Home [phone] Please do not come in for this visit. Your provider will call you at the number you provided. 12/28/2023 2:00 PM Stephenie Moya MD Infectious Disease at [facility] Arrive at: Regrader Area [phone] documented in this encounter Medications at Time [...] gram injection solutionIndications: 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,intermediate current use of antibiotics Inject 2 g into the vein daily for 36 days. Estimated EOT 12/31/2023 72 each 11/25/2023 12/30/2023 sodium chloride 0.9 %, flush, (BD PosiFlush Normal Saline 0.9) SyringeIndications:O steoma of mandibular condyle,intermediate current use of antibiotics Inject 10 mLs into the vein as needed (For Line Patency - See Instructions). FLUSH PROTOCOL WITH MEDICATIONS ([facility]): Before med infusion: flush with NS 10 [...] porcine, 10 unit/mL SolutionIndications: 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,rn long term care current use of antibiotics Inject 3 mLs [...] 2 mg Recon SolnIndications:Oste cris of mandibular condyle,rn long term care current use of antibiotics Instill reconstituted alteplase [...] Jane MD, PGY4 12/01/2023 2:28 PM Pager #[phone] ENT Team Pager: [phone] Evaluated patient at bedside and agree with note above. Plan will be to debride and removed anterior mandibular lesion. Fidel Naranjo MD documented in this encounter Miscellaneous Notes * Op Note - Fidel Naranjo MD - 12/01/2023 4:10 PM EDT [facility] Operative Note Patient Name: Jenae La : [id number] MR#: [id number] Case Date: 12/01/2023 Preop Diagnosis: Cystic erosive [...] Jane MD, PGY4 12/01/2023 4:58 PM Pager #[phone] I was present for the entire procedure [...] 4:29 PM EDT Excision, Benign Tumor, Mandible ([id number]) Yes 12/01/2023 3:43 PM EDT Osteomyelitis of other site, unspecified type EXCISION BENIGN TUMOR OR CYST,MANDIBLE Routine 12/01/2023 2:44 PM EDT Osteomyelitis of other site, unspecified type documented in this encounter Results * Anaerobic Culture (12/01/2023 4:30 PM EDT) Anaerobic Culture No anaerobic organisms isolated [facility] Mandible 12/01/2023 4:30 PM EDT 12/01/2023 5:55 PM EDT Comment:Right anterior camacho bular lesion Narrative Resulting Agency Comment Spec In Lab Fidel Naranjo MD MICROBIOLOGY - GENER AL ORDERABLES Performing Organization Address [facility] de Phone Number [facility] [place] [address] * Tissue culture (12/01/2023 4:30 PM EDT) Tissue Culture No growth [facility] Gram Stain Few Neutrophils seen No microorganisms seen. [facility] Mandible 12/01/2023 4:30 PM EDT 12/01/2023 5:55 PM EDT Comment:Right anterior camacho bular lesion Narrative Resulting Agency Comment Spec In Lab Fidel Naranjo MD MICROBIOLOGY - GENER AL ORDERABLES Performing Organization Address [facility] de Phone Number [facility] [place] [address] * Specimen to Pathology (12/01/2023 4:30 PM EDT) AP Specimen 12/01/2023 4:30 PM EDT 12/01/2023 4:[address] [facility] - 12/01/2023 4:30 PM EDT Specimen requisition ordered. ??Separate Pathology report to follow Fidel Naranjo MD PATHOLOGY/CYTOLOGY O RDERABLES Performing Organization Address [facility] [place] [address] * Surgical Pathology Report (12/01/2023 4:29 PM EDT) Final Diagnosis [id number] ? Location: [facility]; DC41; A The signing pathologist has (i) examined the relevant preparation(s) for the specimen(s) and (ii) rendered or confirmed the diagnosis(es). . ?Surgical Pathology DIAGNOSIS A - Right anterior mandibular lesion, excision: - Reactive gingival-type mucosa with granulation tissue. - Osteomyelitis. Electronically signed by: ?Donny Godwin MD Verified: ??12/08/2023 15:59 ??Pathologist Performed at: ??-[facility] Dept. of Pathology, [place] [address] Arranger Assembler: Iman Sutton MD, AP, ??CLIA Certificate: [id number] DISCUSSION Multiple additional sections were examined. No [...] labeled A1-A3. ??sns 12/08/2023 3:[address] [facility] SOFT TISSUE MASS / Unknown 12/01/2023 4:29 PM EDT 12/01/2023 4:29 PM EDT Fidel Naranjo MD PATHOLOGY/CYTOLOGY O RDERABLES [facility] [place] [id number] documented in this encounter Visit Diagnoses Diagnosis [...] Routine documented in this encounter Care Teams Toll Repairer Central Office Relationship Specialty Start Date End Date None None PCP - General 12/01/23 documented as of this encounter
--- OUTSIDE RECORDS SUMMARY | 2024-06-08 15:12 | XMS_ITS | Encounter Summary ---
Author Organization [facility] [place] [address] Care Team Providers Care Automotive Service Consultant Name Role Phone None Primary Care Provider Unavailabl e Encounter Details Date Type Department Care Team (Late st Contact Info) Description 12/22/2023 Telephone [place] [address] Juliann Patino Social History Tobacco Use Types Packs/Day Years Used Date Smoking Tobacco: Every Day Cigarettes 1 Smokeless Tobacco: Never Comments:Currently using kalia otine inhaler to help herself quit (11/08/18) Alcohol Use Standard Drinks/Week Comments Not Currently 0 (1 standard drink = 0.6 oz pur e alcohol) [facility] Utilities Answer Date Recorded In the past 12 months has th e [employer], gas, oil, or water [employer] threatened to shut off services in your [...] on filedocumented in this encounter Care Teams Automotive Service Consultant Relationship Specialty Start Date End Date None None PCP - General 12/01/23 documented as of this encounter
--- OUTSIDE RECORDS SUMMARY | 2024-06-08 15:12 | XMS_ITS | Encounter Summary ---
Author Organization [facility] [place] [address] Care Team Providers Care Auto Tech Name Role Phone None Primary Care Provider Unavailabl e Encounter Details Date Type Department Care Team (Late st Contact Info) Description 12/24/2023 Telephone [place] [phone] Fabiana Bates LNA Social History Tobacco Use Types Packs/Day Years Used Date Smoking Tobacco: Every Day Cigarettes 1 28 Smokeless Tobacco: Never Comments:Currently using kalia otine inhaler to help herself quit (11/08/18) Alcohol Use Standard Drinks/Week Comments Not Currently 0 (1 standard drink = 0.6 oz pur e alcohol) [facility] Utilities Answer Date Recorded In the past 12 months has th e electric, gas, oil, or water [employer] threatened to shut off services in your [...] filedocumented in this encounter Care Teams Auto Tech Relationship Specialty Start Date End Date None None PCP - General 12/01/23 documented as of this encounter
--- OUTSIDE RECORDS SUMMARY | 2024-06-08 15:12 | XMS_ITS | Encounter Summary ---
Author Organization [facility] Address [facility] [address] Care Team Providers Care Cork Cutter Name Role Phone Unknown Primary Care Provider Unavailabl e Encounter Details Date Type Department Care Team (Late st Contact Info) Description 11/23/2023 Notes Only Infectious Disease [facility] [place] [address] Stephenie Moya MD [facility] [place] [address] Social History Tobacco Use Types Packs/Day Years Used Date Smoking Tobacco: Every Day Cigarettes 1 28 Smokeless Tobacco: Never Comments:Currently using kalia otine inhaler to help herself quit (11/08/18) Alcohol Use Standard Drinks/Week Comments Not Currently 0 (1 standard drink = 0.6 oz pur e alcohol) [facility] Utilities Answer Date Recorded In [...] in a correction (including now)? No 11/20/2023 IPV Inpatient Questions [...] on filedocumented in this encounter Care Teams Cork Cutter Relationship Specialty Start Date End Date Unknown None PCP - General 11/20/23 11/30/23 documented as of this encounter
--- OUTSIDE RECORDS SUMMARY | 2024-06-08 15:12 | XMS_ITS | Encounter Summary ---
Author Organization [facility] [place] [address] Care Team Providers Care Developer Trading Systems Name Role Phone None Primary Care Provider Unavailabl e Encounter Details Date Type Department Care Team (Late st Contact Info) Description 12/01/2023 3:44 PM EDT Anesthesia Event [place] [phone] Delvin Crystal MD Novak, Nathaniel, MD [facility] [place] [address] Anesthesia Record Procedure Summary Procedure Name Responsible [...] drink = 0.6 oz pur e alcohol) [facility] Utilities Answer Date Recorded In the past 12 months has [employer], gas, oil, or water [employer] threatened to shut off services in your [...] any time in the past 12 m [facility], were you homeless or [...] Procedure Summary Date: 12/01/23 Room / Location: [address] MAIN OR Anesthesia Start: 1543 Anesthesia Stop: 1708 Procedure: EXCISION BENIGN TUMOR OR CYST, MANDIBLE (WRVU 4.91) (Midline: Face) Diagnosis: Osteomyelitis of other site, unspecified type (Erosive lesion of the mandible) Surgeons: Fidel Naranjo MD Responsible Provider: Delvin Crystal MD Anesthesia Type: general ASA Status: 3 All Anesthesia Providers: Anesthesiologist: Delvin Crystal MD Student Worker: Kyler Prieto DO; Sudhir Canales MD Vitals [...] DO * Anesthesia Preprocedure Evaluation - Delvin rCystal MD - 12/01/2023 3:11 PM EDT Pre-Anesthesia [...] 3.24) performed by Aparna Reed MD at [facility] MAIN OR ??? PRO OPEN TREATMENT METATARSAL FRACTURE EACH Bilateral 09/16/2018 ORIF METATARSAL FX, EACH (WRVU 7.44) performed by Aparna Reed MD at [facility] MAIN OR ??? PRO OPEN TREATMENT TARSOMETATARSAL JOINT DISLOCATION Right 09/16/2018 OPEN TREAMENT TARSOMETATARSAL JOINT DISLOCATION (WRVU 10.7) performed by Aparna Reed MD at [facility] MAIN OR ??? PRO OPEN TX FRACTURE GREAT TOE/PHALANX/PHALANGES Right 09/16/2018 ORIF GREAT TOE (WRVU 7.44) performed by Aparna Reed MD at [facility] MAIN OR ??? PRO PERCUT TREAT METATARSAL FX Left 09/16/2018 PERCUTANEOUS PINNING, METATARSAL FX, EA. (WRVU 3.6) performed by Aparna Reed MD at [facility] MAIN OR ??? PRO PERCUT TREAT TAR-METATAR FOOT DISLOC Right 09/16/2018 PERCUTANEOUS PINNING, TARSOMETATARSAL JOINT DISLOCATION (WRVU 5.09) performed by Aparna Reed MD at [facility] MAIN OR ??? SHOULDER ARTHROSCOPY Bilateral Social [...] Assessment: unlabored breathing Dental Assessment: (+) edentulous [facility] Assessment: IV access: Peripheral line [...] mg documented in this encounter Care Teams Developer Trading Systems Relationship Specialty Start Date End Date None None PCP - General 12/01/23 documented as of this encounter
--- OUTSIDE RECORDS SUMMARY | 2024-06-08 15:12 | XMS_ITS | Encounter Summary ---
Author Organization [facility] Address [facility] [place] [address] Care Team Providers Care Payroll Secretary Name Role Phone None Primary Care Provider [...] any time in the past 12 m [facility], were you homeless or living in [...] on filedocumented in this encounter Care Teams Payroll Secretary Relationship Specialty Start Date End Date None None PCP - General 12/01/23 documented as of this encounter
--- OUTSIDE RECORDS SUMMARY | 2024-06-08 15:12 | XMS_ITS | Encounter Summary ---
Author Organization [facility] [place] [address] Care Team Providers Care Planer Operator / Grader Name Role Phone None Primary Care Provider Unavailabl e Encounter Details Date Type Department Care Team (Late st Contact Info) Description 12/08/2023 Telephone [place] [phone] Alea Bailey APRN [facility] DR INFECTIOUS [place] [address] Social History Tobacco Use Types Packs/Day Years Used Date Smoking Tobacco: Every Day Cigarettes 1 28 Smokeless Tobacco: Never Comments:Currently using kalia otine inhaler to help herself quit (11/08/18) Alcohol Use Standard Drinks/Week Comments Not Currently 0 (1 standard drink = 0.6 oz pur e alcohol) [facility] Utilities Answer Date Recorded In the [...] on filedocumented in this encounter Care Teams Planer Operator / Grader Relationship Specialty Start Date End Date None None PCP - General 12/01/23 documented as of this encounter
--- OUTSIDE RECORDS SUMMARY | 2024-06-08 15:12 | XMS_ITS | Encounter Summary ---
Author Organization [facility] Address [facility] [place] [address] Care Team Providers Care Filters Assembler Name Role Phone Unknown Primary Care Provider Unavailabl e Encounter Details Date Type Department Care Team (Late st Contact Info) Description 11/24/2023 Telephone [place] [address] Andra Grady Social History Tobacco Use Types Packs/Day Years Used Date Smoking Tobacco: Every Day Cigarettes 1 Smokeless Tobacco: Never Comments:Currently using kalia otine inhaler to help herself quit (11/08/18) Alcohol Use Standard Drinks/Week Comments Not Currently 0 (1 standard drink = 0.6 oz pur e alcohol) [facility] Utilities Answer Date Recorded In the past 12 months has th e [employer], gas, oil, or water [employer] threatened to shut off services in your [...] on filedocumented in this encounter Care Teams Filters Assembler Relationship Specialty Start Date End Date Unknown None PCP - General 11/20/23 11/30/23 documented as of this encounter
--- OUTSIDE RECORDS SUMMARY | 2024-06-08 15:12 | XMS_ITS | Encounter Summary ---
Author Organization [facility] Address [facility] [place] [address] Care Team Providers Care Oracle Erp Developer Name Role Phone Unknown Primary Care Provider Unavailabl e Reason for Visit * Reason Onset Date Comments Follow-up 11/23/2023 F/U to schedule outpatient OPAT Encounter Details Date Type Department Care Team (Late st Contact Info) Description 11/23/2023 Telephone Infectious Disease at [facility] [place] [phone] Cindy Lizama, RN Follow-up (F/U to schedule outpatient OPAT) Social History Tobacco Use Types Packs/Day Years Used Date Smoking Tobacco: Every Day Cigarettes 1 28 Smokeless Tobacco: Never Comments:Currently using kalia otine inhaler to help herself quit (11/08/18) Alcohol Use Standard Drinks/Week Comments Not Currently 0 (1 standard drink = 0.6 oz pur e alcohol) [facility] Utilities Answer Date Recorded In the past 12 months has e [employer], gas, oil, or water [employer] threatened to shut off services in your [...] on filedocumented in this encounter Care Teams Oracle Erp Developer Relationship Specialty Start Date End Date Unknown None PCP - General 11/20/23 11/30/23 documented as of this encounter
--- OUTSIDE RECORDS SUMMARY | 2024-06-08 15:12 | XMS_ITS | Encounter Summary ---
Author Organization [facility] Address [facility] [place] [address] Care Team Providers Care Proof Passer Name Role Phone None Primary Care Provider Unavailabl e Encounter Details Date Type Department Care Team (Latest Contact Info) Description 12/28/2023 2:00 PM EDT TH Visit (TeleHealth) Infectious Disease at [facility] [place] [phone] Stephenie Moya MD [facility] [place] [address] 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; longterm current use of antibiotics Social History Tobacco Use Types Packs/Day Years Used Date Smoking Tobacco: Every Day Cigarettes 1 28 Smokeless Tobacco: Never Comments:Currently using kalia otine inhaler to help herself quit (11/08/18) Alcohol Use Standard Drinks/Week Comments Not Currently 0 (1 standard drink = 0.6 oz pur e alcohol) [facility] Utilities Answer Date Recorded In the past 12 months has e [employer] gas, oil, or water [employer] threatened to shut off services in your [...] any time in the past [address] [facility], were you homeless or living [...] [facility] evaluated [facility]. She had two additional antibiotics [...] of ceftriaxone. On 12/27, [facility] called [facility] stating that she was not able to make her into therapy appointment due to lack of money for gas. She states that her PICC line fell out on 12/22 and had been taking her old prescription of Augmentin. Appointment via telephone given technology issues. She corroborates what she told the [facility] nurses, she states that she has [...] Visit Diagnoses Diagnosis 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 longterm current use of antibiotics Encounter for long-term (current) use of antibiotics documented in this encounter Care Teams Proof Passer Relationship Specialty Start Date End Date None None PCP - General 12/01/23 documented as of this encounter
--- OUTSIDE RECORDS SUMMARY | 2024-06-08 15:12 | XMS_ITS | Encounter Summary ---
Author Organization [facility] Address [facility] [place] [address] Care Team Providers Care Gas Meter Repair Supervisor Name Role Phone None Primary Care Provider Unavailabl e Encounter Details Date Type Department Care Team (Late st Contact Info) Description 12/28/2023 Notes [place] [address] Cindy Lizama RN Social History Tobacco Use Types Packs/Day Years Used Date Smoking Tobacco: Every Day Cigarettes 1 28 Smokeless Tobacco: Never Comments:Currently using kalia otine inhaler to help herself quit (11/08/18) Alcohol Use Standard Drinks/Week Comments Not Currently 0 (1 standard drink = 0.6 oz pur e alcohol) [facility] Utilities Answer Date Recorded In the [...] any time in the past 12 m [facility], were you homeless or living in a longterm (including now)? No 11/20/2023 DH IPV Inpatient [...] of this encounter Progress Notes * Cindy Liazma RN - 12/28/2023 9:20 AM EDT Infectious [...] pt requests that her be called at [phone] as she does not have great service where she lives. documented in this encounter Plan of Treatment Not on file documented as of this encounter Visit Diagnoses Not on filedocumented in this encounter Care Teams Gas Meter Repair Supervisor Relationship Specialty Start Date End Date None None PCP - General 12/01/23 documented as of this encounter
--- OUTSIDE RECORDS SUMMARY | 2024-06-08 15:12 | XMS_ITS | Encounter Summary ---
Author Organization [facility] Address [facility] [place] [address] Care Team Providers Care Highway Maintainer Name Role Phone Unknown Primary Care Provider Unavailabl e Encounter Details Date Type Department Care Team (Late st Contact Info) Description 11/23/2023 Orders [place] [phone] Dariana Jane MD [facility] [place] [address] Osteomyelitis of other site, unspecified type Social History Tobacco Use Types Packs/Day Years Used Date Smoking Tobacco: Every Day Cigarettes 1 28 Smokeless Tobacco: Never Comments:Currently using kalia otine inhaler to help herself quit (11/08/18) Alcohol Use Standard Drinks/Week Comments Not Currently 0 (1 standard drink = 0.6 oz pur e alcohol) [facility] Utilities Answer Date Recorded In the past 12 months has e [employer], gas, oil, or water [employer] threatened to shut off services in your [...] time in the past 12 m [facility], were you homeless or living in a fci (including now)? No 11/20/2023 DH IPV Inpatient [...] type documented in this encounter Care Teams Highway Maintainer Relationship Specialty Start Date End Date Unknown None PCP - General 11/20/23 11/30/23 documented as of this encounter
--- OUTSIDE RECORDS SUMMARY | 2024-06-08 15:12 | XMS_ITS | Encounter Summary ---
Author Organization [place] [address] Care Team Providers Care Lath Hand Name Role Phone None Primary Care Provider Unavailabl e Reason for Visit * Consultation (Routine) - Closed Specialty Diagnoses / Procedures Referred By Contac t Referred To Contact Infectious Diseases Diagnoses Osteomyelitis, unspecified site, unspecified type Ernesto Rodriguez MD [facility] [place] [address] [facility] [place] Dis [address] [place] [phone] Referral ID Status Reason Start Date Expiration Date V isits Requested Visits Authorized [id number] Closed Specialty Service Requested 11/21/2023 11/20/2024 1 1 Encounter Details Date Type Department Care Team (Late st Contact Info) Description 12/09/2023 1:00 PM EDT TH Visit (TeleHealth) [place] [phone] Alea Bailey APRN [facility] [place] [address] Osteomyelitis of mandible; 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; penitentiary current use of antibiotics Social History Tobacco Use Types Packs/Day Years Used Date Smoking Tobacco: Every Day Cigarettes 1 28 Smokeless Tobacco: Never Comments:Currently using kalia otine inhaler to help herself quit (11/08/18) Alcohol Use Standard Drinks/Week Comments Not Currently 0 (1 standard drink = 0.6 oz pur e alcohol) [facility] Utilities Answer Date Recorded In the [...] time in the past 12 m [facility], were you homeless or living in a half-way (including now)? No 11/20/2023 IPV Inpatient Questions [...] this encounter Progress Notes * Alea Bailey, RADIO INTELLIGENCE OPERATOR - 12/09/2023 1:00 PM EDTSummary: ID OPAT [...] Instructions). FLUSH PROTOCOL WITH MEDICATIONS ([facility]): Before med infusion: flush with NS 10 [...] Instructions). 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
--- OUTSIDE RECORDS SUMMARY | 2024-06-08 15:12 | XMS_ITS | Encounter Summary ---
Author Organization [facility] Address [facility] [place] [address] Care Team Providers Care Vise Hand Name Role Phone Unknown Primary Care Provider Unavailabl e Encounter Details Date Type Department Care Team (Latest Contact Info) Description 11/25/2023 9:21 AM EDT - 11/25/2023 11:49 AM EDT Hospital Encounter XRay at [address] [place] [address] Juan Yo MD [facility] [place] [address] 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; FDC current use of antibiotics Discharge Disposition: Home Social History Tobacco Use Types Packs/Day Years Used Date Smoking Tobacco: Every Day Cigarettes 1 28 Smokeless Tobacco: Never Comments:Currently using kalia otine inhaler to help herself quit (11/08/18) Alcohol Use Standard Drinks/Week Comments Not Currently 0 (1 standard drink = 0.6 oz pur e alcohol) [facility] Utilities Answer Date Recorded In the past 12 months has [employer], [employer], oil, or water [employer] threatened to shut off services in your [...] 1 gram injection solutionIndications: 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,FDC current use of antibiotics Inject 2 g [...] porcine, 10 unit/mL SolutionIndications: 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 Hand Hygiene: The boat buffer plastic did perform hand hygiene prior to line insertion. Catheter type: PICC Lot number: [id number] Procedure Technique: Skin was prepped with chlorhexidine. [...] 9:58 AM EDT 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 FDC current use of antibiotics documented in this encounter Results * XR PICC Placement Over 5 Years with Imaging Guidance (IV Team) (11/25/2023 9:58 AM EDT) [employer] WORKSTATION ID [id number] DH RAD Anatomical Region Laterality Modality N/A [...] questions please contact the health home care rn that requested your imaging first. ? Electronically signed by: Blaze Don MD, [facility] ??([phone]), at 11/25/2023 11:40 AM Narrative 11/25/2023 11:40 [...] the superior cavoatrial junction. Procedure Note Blaze oDn MD - 11/25/2023 EXAMINATION: XR PICC PLACEMENT [...] have questions please contactthe health home care rn that requested your imaging first. Electronically signed by: Blaze Don MD, [facility]([phone]), at 11/25/2023 11:40 AM Juan Yo MD IMG FLUORO ORDERABL ES documented in this encounter Visit Diagnoses Diagnosis 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 FDC current use of antibiotics Encounter for long-term (current) use of antibiotics documented in this encounter Care Teams Vise Hand Relationship Specialty Start Date End Date Unknown None PCP - General 11/20/23 11/30/23 documented as of this encounter
--- OUTSIDE RECORDS SUMMARY | 2024-06-08 15:12 | XMS_ITS | Encounter Summary ---
Author Organization [facility] [place] [address] Care Team Providers Care Coffee Machine Technician Name Role Phone Unknown Primary Care Provider Unavailabl e Reason for Visit * Treatment/Therapy Plan Authorization (Routine) - Authorized Specialty Diagnoses / Procedures Referred By Contac t Referred To Contact Diagnoses Osteomyelitis, unspecified site, unspecified type Procedures TC CEFTRIAXONE, 250MG, INJECTION (ROCEPHIN) Juan Yo MD [facility] [place] [address] [facility] Med Infusion [address] [place] [id number] Referral ID Status Reason Start Date Expiration Date V isits Requested Visits Authorized [id number] Authorized 11/23/2023 11/22/2024 99 99 Encounter Details Date Type Department Care Team (Latest Contact Info) Description 11/25/2023 11:50 AM EDT - 11/25/2023 11:59 PM EDT Hospital Encounter [place] [address] Osteomyelitis, unspecified site, unspecified type Discharge Disposition: Home Social History Tobacco Use Types Packs/Day Years Used Date Smoking Tobacco: Every Day Cigarettes 06 21 Smokeless Tobacco: Never Comments:Currently using kalia otine inhaler to help herself quit (11/08/18) Alcohol Use Standard Drinks/Week Comments Not Currently 0 (1 standard drink = 0.6 oz pur e alcohol) [facility] Utilities Answer Date Recorded In the past 12 months has [employer], gas, oil, or water company threatened [...] time in the [facility] were [facility] or living in [...] gram injection solutionIndications: 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,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 Estimated EOT 12/31/2023 72 each 11/25/2023 12/30/2023 sodium chloride 0.9 %, flush, (BD PosiFlush Normal Saline 0.9) SyringeIndications:O steoma of mandibular condyle,termite exterminator current use of antibiotics Inject 10 mLs into the vein as needed (For Line Patency - See Instructions). FLUSH PROTOCOL WITH MEDICATIONS ([facility]): Before med infusion: flush with NS [...] 10 unit/mL SolutionIndications: 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,termite exterminator current use of antibiotics Inject 3 mLs into the vein as needed (For Line Patency - See Instructions). FLUSH PROTOCOL WITH MEDICATIONS ([facility]): Before med infusion: flush with NS [...] 2 mg Recon SolnIndications:Oste cris of mandibular condyle,custodial current use of antibiotics Instill reconstituted alteplase [...] actual dose given at bedside by Raquel Carreon,CLASSIFIED ADVERTISING SUPERVISOR/TREATMENT: DOSE, ROUTE, START TIME, STOP TIME: cefTRIAXone 2 g Intravenous Once ### Administration times: 1214 to 1244 REACTIONS (DESCRIPTION, TIME, INTERVENTION AND EFFECTIVENESS): None. ASSESSMENT: Awake and alert - tolerated treatment well. PLAN: [facility] nurse Miguel here and provided teaching to [...] hr documented in this encounter Care Teams Coffee Machine Technician Relationship Specialty Start Date End Date Unknown None PCP - General 11/20/23 11/30/23 documented as of this encounter
--- OUTSIDE RECORDS SUMMARY | 2024-06-08 15:12 | XMS_ITS | Encounter Summary ---
Author Organization [facility] Address [facility] [place] [address] Care Team Providers Care Biochemistry Technologist Name Role Phone Unknown Primary Care Provider Unavailabl e Encounter Details Date Type Department Care Team (Late st Contact Info) Description 11/25/2023 Notes Only Infectious Disease at [facility] [place] [place] [address] Cindy Lizama RN Social History Tobacco Use [...] any time in the past 12 m [facility], were you homeless or living in a half-way (including now)? No 11/20/2023 [facility] Inpatient Questions Answer Date Recorded Does Anyone [...] First infusion at [facility] Infusion Suite at [facility] Labs to be drawn at [facility] today (11/24) and at [facility] Infusion Suite each Thursday at 1300. Orders/referrals completed: PICC, OPAT, labs, therapy plan, FISH INSPECTOR referral Referrals made to: FISH INSPECTOR: N/A Infusion vendor: [facility] Infusion suite: [facility] ID physician and patient aware of schedule. [...] to contact. Reviewed roles and responsibilities of FISH INSPECTOR and infusion vendor. Contact information for ID team/clinic, FISH INSPECTOR and infusion vendor given to pt. Discussed [...] Start date: 11/19/2023 Anticipated stop date: 12/31/2023 FISH INSPECTOR: N/A Pt scheduled to go to [facility] Infusion Suite for weekly labs and PICC [...] F/u: Labs: Q Thursday: CBC/Diff, CMP at [facility] Labs: Q Thursday Inflammatory CRP at [facility] Attending Responsible for IV Antimicrobials: Juan Bennett MD ID F/U appts to be scheduled documented in this encounter Plan of Treatment Not on file documented as of this encounter Visit Diagnoses Not on filedocumented in this encounter Care Teams Biochemistry Technologist Relationship Specialty Start Date End Date Unknown None PCP - General 11/20/23 11/30/23 documented as of this encounter
--- OUTSIDE RECORDS SUMMARY | 2024-06-08 15:12 | XMS_ITS | Encounter Summary ---
Author Organization [facility] Address [facility] [place] [address] Care Team Providers Care Locket Maker Name Role Phone None Primary Care Provider Unavailabl e Encounter Details Date Type Department Care Team (Late st Contact Info) Description 12/17/2023 Interpretation Only Radiology [address] [facility] [place] [phone] Unknown None Social History Tobacco Use Types [...] time in the past 12 m [facility], were you homeless or living in [...]
--- OUTSIDE RECORDS SUMMARY | 2024-06-08 15:12 | XMS_ITS | Encounter Summary ---
Author Organization [facility] [place] [address] Care Team Providers Care Sem Manager Name Role Phone None Primary Care Provider Unavailabl e Encounter Details Date Type Department Care Team (Late st Contact Info) Description 12/10/2023 Telephone [place] [address] Juliann Patino Social History Tobacco Use Types Packs/Day Years Used Date Smoking Tobacco: Every Day Cigarettes 1 Smokeless Tobacco: Never Comments:Currently using kalia otine inhaler to help herself quit (11/08/18) Alcohol Use Standard Drinks/Week Comments Not Currently 0 (1 standard drink = 0.6 oz pur e alcohol) [facility] Utilities Answer Date Recorded In the past 12 months has th e [employer], gas, oil, or water [employer] threatened to shut off services in your [...] any time in the past 12 m [facility], were you homeless or [...] on filedocumented in this encounter Care Teams Sem Manager Relationship Specialty Start Date End Date None None PCP - General 12/01/23 documented as of this encounter
--- OUTSIDE RECORDS SUMMARY | 2024-06-08 15:12 | XMS_ITS | Encounter Summary ---
Author Organization [facility] Address [facility] [place] [address] Care Team Providers Care Forging Operator Name Role Phone Unknown Primary Care [...] drink = 0.6 oz pur e alcohol) [facility] Utilities Answer Date Recorded In the [...] on filedocumented in this encounter Care Teams Forging Operator Relationship Specialty Start Date End Date Unknown None PCP - General 11/20/23 11/30/23 documented as of this encounter
--- OUTSIDE RECORDS SUMMARY | 2024-06-08 15:12 | XMS_ITS | Clinical Summary ---
Author Organization [facility] Address [facility] [place] [address] Care Team Providers Care Silverware Assembler Name Role Phone None Primary Care Provider [...] = 0.6 oz pur e alcohol) [facility] Utilities Answer Date Recorded In [...] any time in the past 12 m [facility], were you homeless or living in a longterm (including now)? No 11/20/2023 IPV Inpatient Questions [...] year) with FIT yearly 1967 Sigmoidoscopy 1967 DM Opthalmology Exam 08/15/1977 DM Urine Microalbumin yearly 08/15/1977 HIV screen 08/15/1985 Hepatitis C Screening 08/15/1985 Hepatitis B vaccine (0-59 yrs) (1) 08/15/1986 Pneumococcal Vaccine: At-Ris k 5-49yrs (1 of 2 - PCV) 08/15/1986 Tetanus/Diphtheria/Pertussis Vaccines (1 - Tdap) 08/15/1986 [...] history exists Medical Devices Implanted Type Area Sample Checker Device Identifier Shelf Expiration Date Model / Serial / Lot Screw,Crtx,Sta p,Star,2x18mm ([id number]) - [id number] Implanted:Qty: 1 on 09/16/2018 by Aparna Reed MD at [facility] IMPLANTS Right: Foot [employer] - ALEENA SALVATORE 201.368.97 / / Screw,Lck,Stap ,Star,2x14mm ([id number]) - [id number] Implanted:Qty: 1 on 09/16/2018 by Aparna Reed MD at [facility] IMPLANTS Right: Foot [employer] - ALEENA [employer] 201.884 / / Screw,Lck,Stap ,Star,2x18mm ([id number]) - [id number] Implanted:Qty: 1 on 09/16/2018 by Aparna Reed MD at [facility] IMPLANTS Right: Foot [employer] - ALEENA SALVATORE 201.888 / / Plate,Lcp,7h,2 .0x52mm ([id number]) - [id number] Implanted:Qty: 1 on 09/16/2018 by Aparna Reed MD at [facility] IMPLANTS Right: Foot [employer] - ALEENA SALVATORE 247.347 / / Plate,Cndylr,L cp,7h,2.4mm (2909901) ([employer]ore[employer]) - [id number] Implanted:Qty: 1 on 09/16/2018 by Aparna Reed MD at [facility] IMPLANTS Right: Foot [employer] - ALEENA SALVATORE 249.679 / / Bone,Crushed,C ancellous,10cc (7857950) ([employer]) - [id number] Implanted:Qty: 1 on 09/16/2018 by Aparna Reed MD at [facility] IMPLANTS Right: Foot [facility] 05/30/2023 [facility] / / [id number] Pin,Kwire,Plai n,2,0.324g3uc, Ns ([id number]) - [id number] Implanted:Qty: 3 on 09/16/2018 by Aparna Reed MD at [facility] IMPLANTS Left: Foot [employer] - [employer]CRO[employer]RE 1600-945NS / / Plate,Lcp,Cndy lr,7h-Shft,2mm (0126053) - [id number] Implanted:Qty: 1 on 09/16/2018 by Aparna Reed MD at [facility] IMPLANTS Left: Foot [employer] - ALEENA SALVATORE 247.349 / / Screw,Lck,Stap ,Star,2x12mm (6720133) - [id number] Implanted:Qty: 1 on 09/16/2018 by Aparna Reed MD at [facility] IMPLANTS Left: Foot [employer] - ALEENA SALVATORE 201.882 / / Screw,Crtx,Sta p,T8,2.4x16mm (6216780) - [id number] Implanted:Qty: 1 on 09/16/2018 by Aparna Reed MD at [facility] IMPLANTS Right: Foot [employer] - ALEENA SALVATORE 201.766 / / Screw,Lck,Stap ,Star,2x10mm (0927379) - [id number] Implanted:Qty: 1 on 09/16/2018 by Aparna Reed MD at [facility] IMPLANTS Left: Foot [employer] - ALEENA [employer]ORE 201.880 / / Screw,Crtx,Sta p,Star,2x12mm (3660102) - [id number] Implanted:Qty: 1 on 09/16/2018 by Aparna Reed MD at [facility] IMPLANTS Left: Foot [employer] - ALEENA [employer] 201.362.97 / / Screw,Crtx,Sta p,Star,2x14mm (4882951) - [id number] Implanted:Qty: 1 on 09/16/2018 by Aparna Reed MD at [facility] IMPLANTS Left: Foot [employer] - ALEENA [employer] 201.364.97 / / Screw,Crtx,Sta p,Star,2x14mm (0226197) - [id number] Implanted:Qty: 1 on 09/16/2018 by Aparna Reed MD at [facility] IMPLANTS Right: Foot [employer] - ALEENA [employer]ORE 201.364.97 / / Screw,Va,Lck,S lftp,T6,2x22mm (3949257) - [id number] Implanted:Qty: 1 on 09/16/2018 by Aparna Reed MD at [facility] IMPLANTS Right: Foot [employer] - DEPUY SYNT 02.130.322 / / Screw,Crtx,Sta p,Star,2x12mm (1152137) - [id number] Implanted:Qty: 1 on 09/16/2018 by Aparna Reed MD at [facility] IMPLANTS Right: Foot [employer] [facility] [facility] - [employer]ENA [employer] 201.362.97 / / Screw,Va,Lck,S lftp,T6,2x18mm (7216956) - [id number] Implanted:Qty: 1 on 09/16/2018 by Aparna Reed MD at [facility] IMPLANTS Right: Foot [employer] - DEPUY SYNT 02.130.318 / / Screw,Va,Lck,S lftp,T6,2x16mm (6991257) - [id number] Implanted:Qty: 1 on 09/16/2018 by Aparna Reed MD at [facility] IMPLANTS Right: Foot [employer] [facility] [facility] - [employer]ENA [employer] 02.130.316 / / Screw,Crtx,Sta p,Star,2x16mm (4684484) - [id number] Implanted:Qty: 1 on 09/16/2018 by Aparna Reed MD at [facility] IMPLANTS Right: Foot [employer] [facility] [facility] - ALEENA [employer] 201.366.97 / / Screw,Crtx,Sta p,Strdrv,2x10m m (5919471) - [id number] Implanted:Qty: 1 on 09/16/2018 by Aparna Reed MD at [facility] IMPLANTS Left: Foot [employer] [facility] [facility] - [employer]ENA [employer] 201.360.97 / / Screw,Crtx,Sta p,T8,2.4x26mm (2526427) - [id number] Implanted:Qty: 1 on 09/16/2018 by Aparna Reed MD at [facility] IMPLANTS Right: Foot [employer] [facility] - ALEENA [employer] 201.776 / / Guidew,Thrd,1. 7d961ye (6622386) - [id number] Implanted:Qty: 3 on 09/16/2018 by Aparna Reed MD at [facility] IMPLANTS Right: Foot [employer] [facility] - [employer]ENA [employer] 292.727 / / Screw,Crtx,Sta p,T8,2.4x22mm (7260417) - [id number] Implanted:Qty: 1 on 09/16/2018 by Aparna Reed MD at [facility] IMPLANTS Right: Foot [employer] [facility] [facility] - [employer]LEENA [employer] 201.772 / / Screw,Slftp,Lc k,Star,2.4x12m m (5639705) - [id number] Implanted:Qty: 1 on 09/16/2018 by Aparna Reed MD at [facility] IMPLANTS Right: Foot [employer] [facility] [facility] - [employer]ENA [employer] 212.812 / / Screw,Lck,Stap ,Star,2.4x6mm (0790141) - [id number] Implanted:Qty: 1 on 09/16/2018 by Aparna Reed MD at [facility] IMPLANTS Right: Foot [employer] [facility] [facility] - [employer]ENA [employer] 212.806 / / Screw,Lck,Stap ,Star,2.4x18mm (7229828) - [id number] Implanted:Qty: 1 on 09/16/2018 by Aparna Reed MD at [facility] IMPLANTS Right: Foot [employer] [facility] [facility] - [employer]ENA [employer] 212.818 / / Screw,Crtx,Sta p,Strdrv,2x9mm (6641833) - [id number] Implanted:Qty: 1 on 09/16/2018 by Aparna Reed MD at [facility] IMPLANTS Right: Foot [employer] [facility] [facility] - [employer]ENA [employer] 201.359.97 / / Screw,Crtx,Sta p,Star,2x28mm (1341021) - [id number] Implanted:Qty: 1 on 09/16/2018 by Aparna Reed MD at [facility] IMPLANTS Right: Foot [employer] [facility] [facility] - ALEENA [employer] 201.376.97 / / Explanted Type Area Sample Checker Device Identifier Shelf Expiration Date Model / Serial / Lot PinKwire,Troc 1 Ed,Ns,1p235cn ([id number]) ([employer]oreq) - [id number] Explanted:Qty: 1 on 09/16/2018 by Aparna Reed MD at [facility] IMPLANTS Right: Foot [employer] - ALEENA [employer] 292.20 / / PinKwire,Troc 1ed,Ns,8e171qu ([id number]) - [id number] Explanted:Qty: 2 on 09/16/2018 by Aparna Reed MD at [facility] IMPLANTS Right: Foot [employer] - ALEENA SALVATORE 292.10 / / Procedures Procedure Name Priority Date/Time Associated Diagnosis Comments BASIC METABOLIC PANEL Routine 11/21/2023 5:25 AM EDT HEMOGLOBIN A1C Routine 09/16/2018 3:33 PM EDT from Last 3 Months or Most Recently Relevant to Health Maintenance Results * (ABNORMAL) Basic Metabolic Panel (non-fasting) (11/21/2023 5:25 AM EDT) Glucose 113 65 - 199 mg/dL [facility] Comment:Diabetes: >=200 mg/d L plus symptoms Blood Urea Nitrogen 15 8 - 18 mg/dL [facility] Creatinine 0.93 0.70 - 1.20 mg/dL [facility] Sodium 143 135 - 145 mmol/L [facility] Potassium 3.6 3.5 - 5.0 mmol/L [facility] Comment: Please note: ??Patients with WBC >100,000 may have falsely elevated Potassium levels. ??For accurate Potassium quantification in these patients send serum separator tube (gold top) for subsequent determinations. ??Contact the Clinical Chemistry Laboratory if there are any questions. Chloride 111(H) 98 - 107 mmol/L [facility] Carbon Dioxide 22 22 - 31 mmol/L [facility] Anion Gap 10 5 - 15 mmol/L [facility] Calcium 8.4(L) 8.5 - 10.5 mg/dL [facility] Est Glomerular Filtration Rate 72 >=60 mL/min/1. 73 m?? [facility] Comment: This patient's estimated [...] In Lab Misael Joaquin MD CHEMISTRY ORDERABLES [facility] [place] [address] * Hemoglobin A1c (09/16/2018 3:33 PM EDT) Hemoglobin A1c 5.5 4.3 - 5.6 % [facility] Comment: Reference Range: [...] Mellitus, Diabetes Care 2013; 36: Suppl. 1, S67-27 Estimated Average Glucose 111 mg/dL [facility] [...] into estimated average glucose values. ??Diabetes Care 2008:31(8):4888-3769. Blood specimen (specimen) 09/16/2018 3:33 PM EDT 09/16/2018 3:49 PM EDT Narrative Resulting Agency Comment Spec In Lab Javad Urban MD CHEMISTRY ORDERABLES [facility] [place] [address] from Last 3 Months or Most Recently [...] capacity to make decision: Yes Care Teams Silverware Assembler Relationship Specialty Start Date End Date None None PCP - General 12/01/23
--- OUTSIDE RECORDS SUMMARY | 2024-06-08 15:12 | XMS_ITS | Encounter Summary ---
Author Organization [facility] Address [facility] [place] [address] Care Team Providers Care Deck Supervisor Name Role Phone None Primary Care Provider Unavailabl e Encounter Details Date Type Department Care Team (Latest Contact Info) Description 12/01/2023 2:08 PM EDT - 12/01/2023 6:33 PM EDT Hospital Encounter Same Day Program at [place] [phone] Fidel Naranjo MD [facility] [place] [address] Osteomyelitis of other site, unspecified type Discharge [...] drink = 0.6 oz pur e alcohol) [facility] Utilities Answer Date Recorded In the past 12 months has e [employer], gas, oil, or water [employer] threatened to shut off services in your [...] time in the past 12 m [facility], were you homeless or living in [...] your PICC line please call Infectious Disease: [phone]. Pain Control - use acetaminophen (Tylenol) and/or [...] get Peridex on the $4 list at [facility]. Activity: A good rule of thumb is [...] Fahrenheit -Bleeding Contact: -You can reach the [facility] clinic at [phone] for appointment questions. Follow Up: You will need to follow up with Dr. Naranjo. This appointment has been requested. You will be notified once it is scheduled, if you do not already see it below. If you do not hear from us in a timely manner, please call [phone] to receive your date and time. Currently Scheduled Appointments: Future Appointments and Orders Future Appointments and Orders Future Appointments Provider Department Dept Phone 12/08/2023 3:00 PM Alea Bailey APRN Infectious Disease at [facility] Arrive at: Home [phone] Please do not come in for this visit. Your provider will call you at the number you provided. 12/28/2023 2:00 PM Stephenie Moya MD Infectious Disease at [facility] Arrive at: [employer] Preparer Area [phone] documented in this encounter Medications at Time [...] 1 gram injection solutionIndications: 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,[facility] current use of antibiotics Inject 2 g into the vein daily for 36 days. 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 Plan will be to debride and removed anterior mandibular lesion. Fidel Naranjo MD documented in this encounter Miscellaneous Notes * Op Note - Fidel Naranjo MD - 12/01/2023 4:10 PM EDT [facility] Operative Note Patient Name: Jenae La : [id number] MR#: [id number] Case Date: 12/01/2023 Preop Diagnosis: Cystic erosive [...] Jane MD, PGY4 12/01/2023 4:58 PM Pager #[phone] I was present for the entire procedure [...] 4:29 PM EDT Excision, Benign Tumor, Mandible ([id number]) Yes 12/01/2023 3:43 PM EDT Osteomyelitis of other site, unspecified type EXCISION BENIGN TUMOR OR CYST,MANDIBLE Routine 12/01/2023 2:44 PM EDT Osteomyelitis of other site, unspecified type documented in this encounter Results * Anaerobic Culture (12/01/2023 4:30 PM EDT) Anaerobic Culture No anaerobic organisms isolated [facility] Mandible 12/01/2023 4:30 PM EDT 12/01/2023 5:55 PM EDT Comment:Right anterior camacho bular lesion Narrative Resulting Agency Comment Spec In Lab Fidel Naranjo MD MICROBIOLOGY - GENER AL ORDERABLES Performing Organization Address [facility] de Phone Number [facility] [place] [address] * Tissue culture (12/01/2023 4:30 PM EDT) Tissue Culture No growth [facility] Gram Stain Few Neutrophils seen No microorganisms seen. [facility] Mandible 12/01/2023 4:30 PM EDT 12/01/2023 5:55 PM EDT Comment:Right anterior camacho bular lesion Narrative Resulting Agency Comment Spec In Lab Fidel Naranjo MD MICROBIOLOGY - GENER AL ORDERABLES Performing Organization Address [facility] de Phone Number [facility] [place] [address] * Specimen to Pathology (12/01/2023 4:30 PM EDT) AP Specimen 12/01/2023 4:30 PM EDT 12/01/2023 4:30 PM EDT Narrative [facility] - 12/01/2023 4:30 PM EDT Specimen requisition ordered. ??Separate Pathology report to follow Fidel Naranjo MD PATHOLOGY/CYTOLOGY O RDERABLES Performing Organization Address [facility] [place] [address] * Surgical Pathology Report (12/01/2023 4:29 PM EDT) Final Diagnosis [id number] ? Location: [facility]; MD41; A The signing pathologist has (i) examined the relevant preparation(s) for the specimen(s) and (ii) rendered or confirmed the diagnosis(es). . ?Surgical Pathology DIAGNOSIS A - Right anterior mandibular lesion, excision: - Reactive gingival-type mucosa with granulation tissue. - Osteomyelitis. Electronically signed by: ?Donny Godwin MD Verified: ??12/08/2023 15:59 ??Pathologist Performed at: ??-[facility] Dept. of Pathology, [place] [address] Dry Clipper Tender: Iman Sutton MD, AP, ??CLIA Certificate: [id number] DISCUSSION Multiple additional sections were examined. No [...] A1-A3. ??sns 12/08/2023 3:59 PM EDT [facility] SOFT TISSUE MASS / Unknown 12/01/2023 4:29 PM EDT 12/01/2023 4:29 PM EDT Fidel Naranjo MD PATHOLOGY/CYTOLOGY O RDERABLES [facility] [place] [address] documented in this encounter Visit Diagnoses Diagnosis [...] Routine documented in this encounter Care Teams Deck Supervisor Relationship Specialty Start Date End Date None None PCP - General 12/01/23 documented as of this encounter
--- OUTSIDE RECORDS SUMMARY | 2024-06-08 15:12 | XMS_ITS | Encounter Summary ---
Author Organization [facility] Address [facility] [place] [address] Care Team Providers Care Tyre Fitter Name Role Phone Unknown Primary Care Provider Unavailabl e Encounter Details Date Type Department Care Team (Late st Contact Info) Description 11/23/2023 Orders Only [place] [address] Juan Yo MD [facility] [place] [address] Social History Tobacco Use Types Packs/Day Years Used Date Smoking Tobacco: Every Day Cigarettes 1 28 Smokeless Tobacco: Never Comments:Currently using kalia otine inhaler to help herself quit (11/08/18) Alcohol Use Standard Drinks/Week Comments Not Currently 0 (1 standard drink = 0.6 oz pur e alcohol) [facility] Utilities Answer Date Recorded In [...] any time in the past 12 m [facility], were you homeless or living in [...] on filedocumented in this encounter Care Teams Tyre Fitter Relationship Specialty Start Date End Date Unknown None PCP - General 11/20/23 11/30/23 documented as of this encounter
--- OUTSIDE RECORDS SUMMARY | 2024-06-08 15:12 | XMS_ITS | Encounter Summary ---
Author Organization [facility] Address [facility] [place] [address] Care Team Providers Care Research Associate Policy Name Role Phone None Primary Care Provider Unavailabl e Encounter Details Date Type Department Care Team (Late st Contact Info) Description 12/17/2023 8:00 AM EDT Office Visit [place] [phone] Delvin Church PA [facility] [place] [place] [address] Osteomyelitis, unspecified site, unspecified type Social History Tobacco Use Types Packs/Day Years Used Date Smoking Tobacco: Every Day Cigarettes 1 28 Smokeless Tobacco: Never Comments:Currently using kalia otine inhaler to help herself quit (11/08/18) Alcohol Use Standard Drinks/Week Comments Not Currently 0 (1 standard drink = 0.6 oz pur e alcohol) [facility] Utilities Answer Date Recorded In the past 12 months has e [employer], gas, oil, or water [employer] threatened to shut off services in your [...] type documented in this encounter Care Teams Research Associate Policy Relationship Specialty Start Date End Date None None PCP - General 12/01/23 documented as of this encounter
--- OUTSIDE RECORDS SUMMARY | 2024-06-08 15:13 | XMS_ITS | Encounter Summary ---
Author Organization [facility] [place] [address] Care Team Providers Care Railroad Brake Operator Name Role Phone Yamile De Leon INTERNET SALES REPRESENTATIVE Primary Care Provider [phone] Reason for Visit * Reason Comments Foot Pain ORIF METATARSAL FX, EACH (WRVU 7.44) (Bilateral DOS 09/16/2018 Encounter Details Date Type Department Care Team (Late st Contact Info) Description 11/08/2018 2:30 PM EDT Office Visit [place] [address] Cast discomfort Social History Tobacco Use Types [...] 3.24) performed by Aparna Reed MD at [facility] MAIN OR ??? PRO OPEN TREATMENT METATARSAL FRACTURE EACH Bilateral 09/16/2018 ORIF METATARSAL FX, EACH (WRVU 7.44) performed by Aparna Reed MD at [facility] MAIN OR ??? PRO OPEN TREATMENT TARSOMETATARSAL JOINT DISLOCATION Right 09/16/2018 OPEN TREAMENT TARSOMETATARSAL JOINT DISLOCATION (WRVU 10.7) performed by Aparna Reed MD at [facility] MAIN OR ??? PRO OPEN TX FRACTURE GREAT TOE/PHALANX/PHALANGES Right 09/16/2018 ORIF GREAT TOE (WRVU 7.44) performed by Aparna Reed MD at [facility] MAIN OR ??? PRO PERCUT TREAT METATARSAL FX Left 09/16/2018 PERCUTANEOUS PINNING, METATARSAL FX, EA. (WRVU 3.6) performed by Aparna Reed MD at [facility] MAIN OR ??? PRO PERCUT TREAT TAR-METATAR FOOT DISLOC Right 09/16/2018 PERCUTANEOUS PINNING, TARSOMETATARSAL JOINT DISLOCATION (WRVU 5.09) performed by Aparna Reed MD at [facility] MAIN OR ??? SHOULDER ARTHROSCOPY Bilateral [...] 5 months to discuss hardware removal ?? hCad Campo MD Orthopaedic Surgery Pager: [phone] ? * Leta Mitchell Jessica - 11/08/2018 [...] aftercare documented in this encounter Care Teams Railroad Brake Operator Relationship Specialty Start Date End Date Yamile De Leon APRN PCP - General Family Medicine 10/01/18 11/19/23 documented as of this encounter
--- OUTSIDE RECORDS SUMMARY | 2024-06-08 15:13 | XMS_ITS | Encounter Summary ---
Author Organization [facility] Address [facility] [place] [address] Care Team Providers Care Senior Quality Engineer Name Role Phone Yamile De Leon APRN Primary Care Provider [phone] Reason for Visit * Reason Comments Follow-up Encounter Details Date Type Department Care Team (Late st Contact Info) Description 11/08/2018 1:00 PM EDT Office [place] [phone] German Gu III, MD [facility] [place] [address] Abdirahman Enamorado MD Hospital discharge follow-up Social History Tobacco Use [...] - 11/08/2018 1:00 PM EDT NEUROLOGY CLINIC [facility] [place] [address] Facsimile: Neurology Initial Visit: 11/08/2018 Patient name: Jenae La Date of : 1965 CC: Post hospital follow-up for possible seizure-like activity Jenae La is seen today for follow-up regarding possible seizure-like activity while [facility] August 2018. HPI: Jenae La is a 53 y.o. female with past medical history significant for type 2 diabetes, fibromyalgia, chronic opiate use, obstructive sleep apnea (on CPAP at home) who was seen by the neurology consult service in August 2018 for possible seizure-like activity. Patient was admitted to the orthopedic service after transfer from [facility] for bilateral ankle fractures. Per description of her presentation to [facility] patient possibly had seizure-like activity and [...] file Gets together: Not on file Attends faith service: Not on file Active member of [...] Denies Illicit Drug Use: Denies Living Situation: [place], [place] - lives with , 4 dogs [...] needed for Pain.30 tablet 1 ??? BASAGLAR MELONIEIKPEN U-100 INSULIN 100 unit/mL (3 [...] MD Neurology Resident - PGY-3 Personal Pager: [phone] 11/08/2018 Neurology Attending Attestation I saw and [...] as documented. German Gu III, MD Pager: [phone] 3:14 PM 11/08/2018 documented in this encounter Plan of Treatment Not on file documented as of this encounter Visit Diagnoses Diagnosis Hospital discharge follow-up Other follow-up examination documented in this encounter Care Teams Senior Quality Engineer Relationship Specialty Start Date End Date Yamile De Leon APRN PCP - General Family Medicine 10/01/18 11/19/23 documented as of this encounter
--- OUTSIDE RECORDS SUMMARY | 2024-06-08 15:13 | XMS_ITS | Encounter Summary ---
Author Organization [facility] Address [facility] [place] [address] Care Team Providers Care Instrumentation Engineering Technician Name Role Phone Yamile De Leon APRN Primary Care Provider [phone] Reason for Visit * Reason Onset Date Comments Questions 10/27/2018 Encounter Details Date Type Department Care Team (Late st Contact Info) Description 10/27/2018 Telephone [place] [phone] Aparna Reed MD [facility] [place] [address] Questions Social History Tobacco Use Types Packs/Day [...] was the Surgeon?Brianna Best call back number: [phone] Best time to call back between 8:00 am & 5:00 pm: anytime Can we leave a message? yes What is the question: questions about her cast? Can she go into an air cast now? The cast she is innow are too heavy. She would like to transfer of care to [facility] sooner rather than later due to transportation issues. documented in this encounter Plan of Treatment Not on file documented as of this encounter Visit Diagnoses Not on filedocumented in this encounter Care Teams Instrumentation Engineering Technician Relationship Specialty Start Date End Date Yamile De Leon APRN PCP - General Family Medicine 10/01/18 11/19/23 documented as of this encounter
--- OUTSIDE RECORDS SUMMARY | 2024-06-08 15:13 | XMS_ITS | Encounter Summary ---
Author Organization [facility] [place] [address] Care Team Providers Care Food Storeroom Clerk Name Role Phone Yamile De Leon APRN Primary Care Provider [phone] Reason for Referral * Consultation (Routine) - Closed Specialty Diagnoses / Procedures Referred By Bruce galo Referred To Contact Dermatology Diagnoses Breast lesion Yamile De Leon APRN [address] [place] [address] [facility] [address] [place] [address] Referral ID Status Reason Start Date Expiration Date V isits Requested Visits Authorized [id number] Closed Consult, Test & Treat PCP Updated and/or Approved 10/11/2021 10/11/2022 6 6 Encounter Details Date Type Department Care Team (Late st Contact Info) Description 10/11/2021 Transcribe Orders eDH Incoming Referrals [phone] Yamile De Leon APRN [address], [place] [id number] Breast lesion Social History Tobacco Use Types [...] disorder documented in this encounter Care Teams Food Storeroom Clerk Relationship Specialty Start Date End Date Yamile De Leon APRN PCP - General Family Medicine 10/01/18 11/19/23 documented as of this encounter
--- OUTSIDE RECORDS SUMMARY | 2024-06-08 15:13 | XMS_ITS | Encounter Summary ---
Author Organization [facility] Address [facility] [place] [address] Care Team Providers Care Project Hire Name Role Phone Yamile De Leon APRN Primary Care Provider [phone] Encounter Details Date Type Department Care Team (Latest Contact Info) Description 11/19/2023 Travel Social History Tobacco Use Types Packs/Day Years Used Date Smoking Tobacco: Every Day Cigarettes 1 28 Smokeless Tobacco: Never Comments:Currently using kalia otine inhaler to help herself quit (11/08/18) Alcohol Use Standard Drinks/Week Comments Not Currently 0 (1 standard drink = 0.6 oz pur e alcohol) [facility] Utilities Answer Date Recorded In the [...] any time in the past 12 m [facility], were you homeless or living [...] on filedocumented in this encounter Care Teams Project Hire Relationship Specialty Start Date End Date Yamile De Leon APRN PCP - General Family Medicine 10/01/18 11/19/23 documented as of this encounter
--- OUTSIDE RECORDS SUMMARY | 2024-06-08 15:13 | XMS_ITS | Encounter Summary ---
Author [place] [address] Care Team Providers Care Vehicle Check In Clerk Name Role Phone Yamile De Leon APRN Primary Care Provider [phone] Encounter Details Date Type Department Care Team [...] on filedocumented in this encounter Care Teams Vehicle Check In Clerk Relationship Specialty Start Date End Date Yamile De Leon APRN PCP - General Family Medicine 10/01/18 11/19/23 documented as of this encounter
--- OUTSIDE RECORDS SUMMARY | 2024-06-08 15:13 | XMS_ITS | Encounter Summary ---
Author Organization [facility] Address [facility] [place] [address] Care Team Providers Care Brick And Block Mason Name Role Phone None Primary Care Provider Unavailabl e Reason for Visit * Auth/Cert Specialty Diagnoses / Procedures Referred By Contac t Referred To Contact Diagnoses Fracture of unspecified tarsal bone(s) of unspecified foot, initial encounter for closed fracture CLOSED HEAD INJURY, FOOT BONE FX'S -CONFUSED Procedures EMERGENCY IPI Referral ID Status Reason Start Date Expiration Date Visits Re quested Visits Authorized [id number] 1 1 Encounter Details Date Type Department Care Team (Latest Contact Info) Description 09/14/2018 7:05 PM EDT - 09/20/2018 5:09 PM EDT Hospital Encounter [address] [place] [id number] Javad Urban MD [facility] [place] [address] S/P ORIF bilateral foot fractures, 09/16/18 (Gitajn) [...] Jenae La Patient Age: 53 y.o. Language: Gibraltarian Race: White Ethnicity: Not nor Admit date: 09/14/2018 Discharge date and time: 09/20/2018 Attending Physician: Javad Urban MD Discharge Physician: Javad Urban MD Follow-up Recommendations for Providers: See discharge instructions for additional details. Future Appointments Date Time Provider Department Center 10/01/2018 10:00 AM [facility] DX ROOM 1 Xray Leb Rad Clin 10/01/2018 11:00 AM Mary Ellison PA Leb Ortho 3C [facility] 11/08/2018 1:00 PM Abdirahman Enamorado MD Leb Neuro [facility] Inpatient Provider Contact Information: Javad Urban MD Orthopedics: [phone] After hours and weekends, call [facility] Ultrasound Specialist, , and have the Orthopedic resident paged. [...] the orthopaedics service as a transfer from [facility] for operative management of bilateral [...] multiple times, leading her to present to [facility] on 09/12/2018 for evaluation. ?? Initial work-up at [facility] revealed sepsis secondary to suspected community- acquired pneumonia, mild acute exacerbation of COPD, a closed head injury with postconcussive syndrome, multiple bilateral foot fractures, and MANUEL, resulting in hospital admission. Upon presentation to the [facility] ED, her and herjake reported [...] no active bleeding observed. General Surgery at [facility] evaluated the patient, and felt no further action was required besides outpatient follow up. ?? Upon arrival to [facility], Mrs. La reports moderate pain in her [...] Orthopedic Surgery Service as a transfer from [facility] for definitive operative management of [...] demonstrated seizure-like activity during her presentation at [facility], thus would recommend consulting Neurology to determine??the need for an EEG to rule out sub-clinical seizure and determine the need to continue keppra. The patient's revised cardiac risk index is a Class I risk (0 points) with a 3.9% 30 day risk of , VA, or cardiac arrest. No further cardiac work [...] a transfer to the orthopedic service from [facility] for bilateral complex foot fractures. [...] number below. Electronically signed by: Sheila Joaquin [facility] ([phone]), at 09/14/2018 4:41 PM Xr Foot Min [...] number below. Electronically signed by: Sheila Joaquin [facility] ([phone]), at 09/16/2018 3:47 PM Pending Studies and Lab Data at Discharge: * No orders in the log * Transfusions: No Discharge Conditions/Prognosis: Stable, awake, and alert. Mobilizing as noted above, pain controlled on oral medications. Discharge to: Home HOME HEALTH CARE AGENCY: ??[facility] ?? PHONE: [phone] FAX: [phone] Updated Allergies/ADRs: Allergies Allergen Reactions ??? Sulfa [...] bowel movement. You can also take an knqm-lpy-bvfbfxz medication, Miralax if needed to combat constipation. [...] skin and wound problems. Call your doctor ([phone]) if you develop: 1. Fever greater than [...] 1. You will have follow-up appointments at [facility] as indicated in Future Appointment and Orders. You will have an xray prior to those appointments so please come to Radiology, desk 3T, 1 hour BEFORE your appointment for those x-rays. Future Appointments Date Time Provider Department Center 10/01/2018 10:00 AM [facility] DX ROOM 1 Xray Leb [facility] Clin 10/01/2018 11:00 AM Mary Ellison PA Leb Ortho 3[facility] 11/08/2018 1:00 PM Abdirahman Enamorado MD Leb Neuro [facility] If you have questions or concerns: [...] Provider Department Dept Phone 10/01/2018 10:00 AM [facility] DX ROOM 1 XRay at [place] Arrive at: Marketing Administrative Assistant Area [phone] Please go to Marketing Administrative Assistant Area 3T ([place] Location). 10/01/2018 11:00 AM Mary Ellison PA Orthopaedics at [place] Arrive at: Marketing Administrative Assistant Area 3C [phone] 11/08/2018 1:00 PM Abdirahman Enamorado MD Neurology at [place] Arrive at: Marketing Administrative Assistant Area 3C [phone] Future Orders Complete By Expires Durable Medical Equipment Order [EQ148 Custom] As directed Process Instructions: Scheduling Instructions: Comments: Non weight bearing bilateraly Questions: Name/Description of requested item: Drop arm commode Size requested: 20 Vendor Name/Contact information: [facility] Durable Medical Equipment Order [EQ148 Custom] As [...] Scheduling Instructions: Comments: Jenae [address] [facility] [phone] (home) No relevant phone numbers on file. Diagnosis:Bilateral fractures both feet requiring surgery Non weight barring Patient's: Hgt: 5'1 Wgt: 183 VENDOR: [employer] Ordering: Drop arm commode needed ARABELLA is required for discharge Questions: Name/Description of requested item: Drop arm Commode Size requested: Standard Vendor Name/Contact information: [employer] Referral to Home Health - at DISCHARGE [[id number] CPT(R)] As directed Process Instructions: Scheduling Instructions: Comments: DOCUMENTATION FOR VNA SERVICES (INCLUDING THOSE PATIENTS WITH MEDICARE COVERAGE REQUIRING HOME VNA SERVICES AND/OR HOSPICE SERVICES) PATIENT'S LOCATION: Jenae Nickerson [facility]. [facility] [address] (home) Cell: No relevant phone numbers on file. Diesel Mechanic Construction's Name: herself with 's assist In discussion with the attending physician, it is certified that this patient is under their care and that they, or a Nurse Practitioner,Clinical Nurse specialist or Physician Chaplaincy who is working directly with them, had [...] continue rehab for managing ADL's. Eval for TRUCK MANAGER: HOME HEALTH CARE AGENCY: [facility] PHONE: [phone] FAX: [phone] Start of care: 09/21/18 FOR MEDICARE ONLY: [...] this patient's PCP: LILLY Gaitan [address] [facility] / [place] [address] All A agencies which cover the area of patient's residence have been reviewed, either verbally irasema writing, and patient/family have chosen the home health care agency noted Questions: Agency name and contact information: [facility] Patient location post discharge: home What [...] information: Harriet Primary Care Provider: LILLY Gaitan [phone] Discharge References/Attachments None documented in this encounter [...] bowel movement. You can also take an xbkm-llf-yxzzusd medication, Miralax if needed to combat constipation. [...] skin and wound problems. Call your doctor ([phone]) if you develop: 1. Fever greater than [...] 1. You will have follow-up appointments at [facility] as indicated in Future Appointment and Orders. You will have an xray prior to those appointments so please come to Radiology, desk 3T, 1 hour BEFORE your appointment for those x-rays. Future Appointments Date Time Provider Department Center 10/01/2018 10:00 AM [facility] DX ROOM 1 Xray Leb [...] Service Ortho Pager # Check daily [facility] is unable to supply the commode and the slide board . This assembly instructions writer called several places andfound slide board at [facility] and [facility] as well that is being [...] discharge planning. Ivette Álvarez RN CM Pager [phone] * Ivette Álvarez RN - 09/20/2018 12:52 PM EDT The patient/environmental marketing representative has been provided a list of /DME vendors which serve their preferred geographic area. A letter describing our affiliations was reviewed with them and they were educated about their right to choose where referrals are placed. Patient requests referral to [facility] Expected date of discharge: 09/20/18 Referral routed to the It Teacher for matching with agency/vendor and to provide any required information. Ivette Álvarez [facility] Beeper #[phone] * Ivette Álvarez RN - 09/20/2018 11:14 AM EDT Office of Care Managment (OCM /Caremanger (CM)/ Discharge planning ) Service Ortho Pager # check daily Patient is medically ready to go . Made call to [facility] to verify delivery of Wheelchair , slide board and drop arm commode for today (family said they can pick the items up on the way home ) Thalia from [facility] is checking with [facility] office to make sure items are available for them. Plan: CM will continue to follow for coordination of care and to facilitate discharge planning. ? Ivette Álvarez RN CM Pager [phone] * Ori Santos MD - 09/20/2018 5:39 [...] Pain well controlled. [facility]. Discharge likely today, dependent on DME delivery to [facility]. Activity: NWB BLE. Strict elevation in splints. Closure: Sutures (remove 10-14 days) Dressing: DSD, splints. Drain: None Anticoagulation: Lovenox for 30 days Antibiotics: Empiric Ceftriaxone/Azithromycin for suspected CAP Consults: Medicine, Neuro Dispo: Like home today Follow-up: As scheduled Ori Santos MD 09/20/2018 Future Appointments Date Time Provider Department Center 10/01/2018 10:00 AM [facility] DX ROOM 1 Xray Leb [...] with Med Team re pt DC today( [id number]). Pt to dc Thursday * Sanket Freeman [...] Time Provider Department Center 10/01/2018 10:00 AM [facility] DX ROOM 1 Xray Leb [...] Continue to offer NIV for LORRI * Abdirahamn Enamorado MD - 09/17/2018 11:26 AM EDT [...] a transfer to the orthopedic service from [facility] for bilateral complex foot fractures. [...] L Elbow flexion 5/5 R, 5/5 L Stock Roller LE: Deferred due to her pain Sensation: [...] a transfer to the orthopedic service from [facility] for bilateral complex foot fractures. [...] - PGY-3 General Neurology Consults Team Pager #[phone] 09/17/18 Associated attestation - Jose Swan MD - 09/17/2018 4:41 PM EDT I have seen and examined Jenae La with the neurology team on 09/17/2018 and agree with the assessment and plan as below. Face twitching. 53 Y F with history of DJD spine, DM, fibromyalgia being seen by Neurologist at [facility] Episodes of left sided facial twitching Stopped taking gabapentin recently due to side effects. Low suspicion for these being seizures. AEDs not needed at this time Recommended lower doses of gabapentin which she doesn't wish to take. Outpatient neurology followup Jose Swan MD Department of Neurology [facility] * Sanket Freeman MD - 09/17/2018 [...] Department of Orthopaedics 09/17/18 * Davin Ann, HONING MACHINE OPERATOR PRODUCTION - 09/16/2018 11:22 PM EDT Pt refused [...] 8:31 AM EDT Internal Medicine Consult Note (#[id number]) Progress Note Patient info: Name: Jenae La : 1965 PCP: LILLY Gaitan PCP phone number: [phone] Date of Admission: 09/14/2018 ( Hospital Day [...] Orthopedic Surgery Service as a transfer from [facility] for operative management of bilateral [...] in the last 7068 hours. Invalid input(s): CXFPZOGGHTE3D Heme: No results for input(s): LDH, HAPTOGLOBIN, URICACID in the last 168 hours. ABG: ABG (Arterial Blood Gas) No results found for: PHART, PO2ART, WCZ3LCN, FOO9KYX Microbiology: Site Date and Time Obtained Result [...] Orthopedic Surgery Service as a transfer from [facility] for definitive operative management of [...] demonstrated seizure-like activity during her presentation at [facility], thus would recommend consulting Neurology to determine the need ace EEG to rule out sub-clinical seizure and determine the need to continue keppra. The patient's revised cardiac risk index is a Class I risk (0 points) with a 3.9% 30 day risk of , VA, or cardiac arrest. No further cardiac work [...] Lyon MD, PGY-3 09/16/2018 Medicine Consult # [phone] Associated attestation - Chris Stahl DO - [...] today vs tomorrow pending scheduling availability. Appreciate advanced surgical hospital medicine recs. - Neuro consult today - Remain NPO for possible OR today - UA today - NWB B/l LE - Pain control: Oral multimodal pain medication - Discharge planning: likely rehab per PT - F/u TBD Sanket Freeman MD PGY-2 Orthopaedics * Davin Ann, HONING MACHINE OPERATOR PRODUCTION - 09/15/2018 11:00 PM EDT Pt had Nausea, NIV held this evening. * Kathrin Madsen RN - 09/15/2018 2:05 PM EDT Based on discussions with the multi-disciplinary healthcare team, the patient would benefit from snf/swing/acute level of care at discharge. ?? I have met with the patient/environmental marketing representative to discuss discharge planning needs. I have provided the [facility], Office of Care Management letter from the Script Supervisor pertaining to rehab referrals. I have also provided a letter describing our affiliations within the [facility] and educated them about their right to choose where referrals are placed. ?? I reviewed the different levels of rehab including SNF, swing, acute and LTAC with the patient/environmental marketing representative. ?? The patient/environmental marketing representative has been provided a list of facilities within their preferred geographic area. ?? I have requested that the patient/environmental marketing representative provide at least three choices for referral. ?? The patient/environmental marketing representative have requested referrals to: 2.[facility] [address] [place] [address] ?? [phone] [facility] [address] [place] [address] ?? [phone] ?? Expected date of discharge: 09/17/18 Note routed to It Teacher who will communicate referrals to facilities and [...] % Laboratory: No results found for: PHART, WYZ9JCA, PO2ART, YBX4XFD, BEART Assessment: Called to set pt up [...] Urban PCP: LILLY Gaitan PCP phone #: [phone] Chief Complaint: Foot pain History of Present Illness: Jenae La is a 53 y.o woman with HTN, HLD, Type II DM, LORRI on CPAP,fibromyalgia with chronic opioid use, and GERD who was admitted to the Orthopedic Surgery Service as a transfer from [facility] for operative management of bilateral complex foot fractures s/p trauma (dropping firewood on her feet) on the evening of 09/11/18 causing bilateral immediate pain, swelling, andbruising making it difficult to ambulate and leading to falls c/b striking her head multiple times.It was with these symptoms that she presented to [facility] on 09/12/18. During her initial presentation in the [facility] ED, the patient reported instances [...] negative, CSF cultures were reportedly negative. At [facility], she was found to have [...] hours of admission. She was admitted to [facility] from 09/12/18 - 09/14/18. Upon arrival at [facility] on 09/15/18,the patient noted moderate bilateral pain [...] Illicits: Denies Living Situation: Lives with in [place] Vitals: Last value Range last 24 hrs [...] in the last 7068 hours. Invalid input(s): [id number] Heme: No results for input(s): LDH, HAPTOGLOBIN, [...] Orthopedic Surgery Service as a transfer from [facility] for definitive operative management of [...] demonstrated seizure-like activity during her presentation at [facility], thus would recommend consulting Neurology [...] a 3.9% 30 day risk of , VA, or cardiac arrest. No further cardiac work [...] Internal Medicine, PGY- 3 Medicine Consult Pager #[phone] Associated attestation - Chris Stahl DO - [...] female who presented as a transfer from [facility] for operative management of the complex foot fractures due to trauma on 09/11/2018. Her hospital course at [facility] was complicated by an ICU admission due to community-acquired pneumonia, as well as possible focal seizures and postconcussive syndrome. Here at [facility] patient has been clinically stable from pulmonary [...] the orthopaedics service as a transfer from [facility] for operative management of bilateral [...] multiple times, leading her to present to [facility] on 09/12/2018 for evaluation. Initial work-up at [facility] revealed sepsis secondary to suspected community- acquired pneumonia, mild acute exacerbation of COPD, a closed head injury with postconcussive syndrome, multiple bilateral foot fractures, and MANUEL, resulting in hospital admission. Upon presentation to the [facility] ED, her and cristian reported [...] no active bleeding observed. General Surgery at [facility] evaluated the patient, and felt no further action was required besides outpatient follow up. Upon arrival to [facility], Mrs. La reports moderate pain in her [...] Situation: Lives with and multiple pets in [place], [place]. Review of Systems: As per HPI, [...] direct admit to the Orthopaedics service from [facility] for definitive management of bilateral [...] and witnessed facial and arm twitching at [facility] (witnessed by nursing). Also has [...] channel digitized electroencephalogram was performed in the [facility] Clinical Neurophysiology Laboratory. The 10/20 international system of electrode placement was used and bipolar and referential electrode montages were recorded. In addition to EEG the patient was monitored for EKGand lateral/vertical eye movements. Video was recorded during the session. The duration of the recording was 30 minutes. PROGRAM DIRECTOR AIR TALENT'S REPORT: Performed by: RR/GERHARD Patient was not [...] Angel MD Clinical Neurophysiology Fellow Personal Pager #[phone] Epilepsy Neurology #[phone] Neurology Attending I have personally reviewed the EEG, and I agree with the details as written. The above report was formulated in discussion with me at the time of EEG reading, and I agree with it as documented. Jose Singer MD [place] [address] Pager: [phone], #[phone] Email: [email or web address] documented in this encounter Miscellaneous Notes * [...] quit. She is not interested in receiving [facility] Tobacco Cessation packet. A: Pt refused consult. P: Encouraged patient to reach out to PCP for nicotine inhaler prescription. Dimitrios Valle, MSN, RN-, [facility] Tobacco Ground Crew Lines Person [facility] Pager #[phone] * Plan of Care - Stacey Duenas [...] I have spoken with Thalia from the [place] office and she states shecannot get this DME on a Thu afternoon for Sat am but can do this for a Mon d/c. Pt states there jessy branch in [facility] that she has used in the past. Pt requests a referral to [facility] for an RN for skilled assessments, PT, OT, and steve for TRUCK MANAGER. Pt requests Ofelia Barger if possible. [...] NO xxx Lauren Perales, PT, DPT Pager: [phone] Inpatient Physical Therapy 2017 PT Evaluation Code [...] (Group);Wheelchair Training/Management (Group) Bed Mobility Assessment/Treatment Scoot/Bridge Cuming (Bed Mobility) conditional independence Pggkwq-wa-Cll Cuming (Bed Mobility) conditional independence Rnm-vp-Qarqoc Cuming (Bed Mobility) conditional independence Safety Issues (Bed Mobility) decreased use of legs for bridging/pushing Impairments (Bed Mobility) pain;ROM (range of motion) decreased Comment (Bed Mobility) incr time/effort to/from EOB but no physical assistance, NWB maintained throughout, good SLR b/l LEs Transfer Assessment/Treatment Bed-Chair Cuming (Transfers) supervision required;conditional independence (initial supervision progressing to ind) Vks-Czwpo-Bee Assistive Device (Transfers) slide board Cuming (Toilet Transfers) supervision required;conditional independence Assistive Device [...] with assist, home with home health(PT) Pager: [phone] Ori Bates OT 09/17/2018 Occupational Therapy Rehabilitation [...] pain;ROM (range of motion) decreased;strength decreased Scoot/Bridge Cuming (Bed Mobility) conditional independence Joovme-sc-Pqs Cuming (Bed Mobility) conditional independence Eci-mx-Nevokp Cuming (Bed Mobility) conditional independence Comment (Bed Mobility) Pt performeed bed mobility w/ increased time and pain. Transfer Assessment/Treatment Cuming (Toilet Transfers) supervision required;conditional independence Impairments (Transfers) pain;ROM (range of motion) decreased;strength decreased Ihx-Plszs-Ahd Assistive Device (Transfers) slide board Bed-Chair Cuming (Transfers) supervision required;contact guard assist Comment (Transfers) [...] Body Dressing Assessment/Training Assistive Devices (LB Dressing) adhesive bandage machine operator Position (LB Dressing) sitting Cuming Level (LB Dressing) conditional independence Impairments (LB Dressing) pain;ROM (range of motion) decreased;strength decreased Comment (LB Dressing) Pt donned pants independently, w/ slight increase in time. Toileting Assessment/Training Position (Toileting) sitting Cuming Level (Toileting) conditional independence Impairments (Toileting) ROM [...] a transfer to the orthopedic service from [facility] for bilateral complex foot fractures. Per discussion with the consulting provider, patient was initially admitted to [facility] for bilateral foot fractures. This was in the setting of multiple falls in the previous days leading up to her admission. She was also noted to strike her head multiple times during these falls. In conversation withthe patient's at [facility], there was some discussion of some trembling, [...] L Elbow flexion 5/5 R, 5/5 L Stock Roller LE: Deferred due to her pain Sensation: [...] Negative mcL Appearance UA Clear Clear Spec Cowgill UA 1.012 1.002 - 1.030 Color UA [...] a transfer to the orthopedic service from [facility] for bilateral complex foot fractures. Discussion with Jenae and her significant other about her initial presentation makes us less concerned for seizure activity. However, it is hard to say what the nurses at [facility] actually saw but they describe [...] - PGY-3 General Neurology Consults Team Pager #[phone] 09/16/18 Associated attestation - German Gu III, [...] as documented. German Gu III, MD Pager: [phone] 7:42 AM 09/17/2018 * Op Note - Aparna Reed MD - 09/16/2018 2:02 PM EDT [facility] Operative Note Patient Name: Jenae La : [id number] MR#: [id number] Case Date: 09/16/2018 Surgeon: Surgeon(s) and Role: [...] 2nd metatarsal fracture, left 3rd metatarsal fracture, [id number] metatarsal fracture, left cuboid fracture. Procedure(s) (LRB): [...] the second tarsometatarsal joint. We used a kmajf-kr-rsdyb clamp to reduce it, and then fixed [...] the articular surface. We then used a Tonica to bring the impacted articular surface down [...] Reed MD - 09/16/2018 1:54 PM EDT [facility] Operative Note- Left foot This patient underwent bilateral procedures. This operative note is for the left foot. Patient Name: Jenae La : [id number] MR#: [id number] Case Date: 09/16/2018 Surgeon: Surgeon(s) and Role: [...] 2nd metatarsal fracture, left 3rd metatarsal fracture, [id number] metatarsal fracture, left cuboid fracture. ?? Procedure(s) [...] fractures and dislocations. She was seen at [facility] and transferred to [facility] [place] care. We discussed the risks [...] third metatarsal fracture was exposed using a Tonica. A lnrbt-hv-gqstg clamp was used to control the distal [...] toe extensors. Fracture was exposed using a Tonica. A pnckd-ov-yvuhg clamp was used to control the distal [...] Implant Name Type Inv. Item Serial No. Manager Voice Lot No. LRB No. Used Action PIN,KWIRE,TROC 1 ED,NS,[id number] ([id number]) (AutoReq) - [id number] IMPLANTS PIN,KWIRE,TROC 1 ED,NS,[id number] ([id number]) (AutoReq) [facility] Right 1 Implanted and Explanted SCREW,CRTX,STAP,T8,2.4X16MM ([id number]) - [id number] IMPLANTS SCREW,CRTX,STAP,T8,2.4X16MM ([id number]) [facility] Right 1 Implanted SCREW,CRTX,STAP,T8,2.4X26MM ([id number]) - [id number] IMPLANTS SCREW,CRTX,STAP,T8,2.4X26MM ([id number]) [facility] Right 1 Implanted SCREW,CRTX,STAP,T8,2.4X22MM ([id number]) - [id number] IMPLANTS SCREW,CRTX,STAP,T8,2.4X22MM ([id number]) [facility] Right 1 Implanted SCREW,SLFTP,LCK,STAR,2.4X12MM ([id number]) - [id number] IMPLANTS SCREW,SLFTP,LCK,STAR,2.4X12MM ([id number]) [facility] Right 1 Implanted SCREW,LCK,STAP,STAR,2.4X6MM ([id number]) - [id number] IMPLANTS SCREW,LCK,STAP,STAR,2.4X6MM ([id number]) [facility] Right 1 Implanted SCREW,LCK,STAP,STAR,2.4X18MM ([id number]) - [id number] IMPLANTS SCREW,LCK,STAP,STAR,2.4X18MM ([id number])[facility] Right 1 Implanted SCREW,CRTX,STAP,STRDRV,2X9MM ([id number]) - [id number] IMPLANTS SCREW,CRTX,STAP,STRDRV,2X9MM ([id number])[facility] Right 1 Implanted SCREW,CRTX,STAP,STAR,2X24MM ([id number]) - [id number] IMPLANTS SCREW,CRTX,STAP,STAR,2X24MM (3487393) [facility] Right 1 Wasted SCREW,CRTX,STAP,STAR,2X28MM ([id number]) - [id number] IMPLANTS SCREW,CRTX,STAP,STAR,2X28MM ([id number]) [facility] Right 1 Implanted SCREW,CRTX,STAP,STAR,2X18MM ([id number]) - [id number] IMPLANTS SCREW,CRTX,STAP,STAR,2X18MM ([id number]) [facility] Right 1 Implanted SCREW,LCK,STAP,STAR,2X14MM ([id number]) - [id number] IMPLANTS SCREW,LCK,STAP,STAR,2X14MM ([id number]) [facility] Right 1 Implanted SCREW,LCK,STAP,STAR,2X18MM (5652359) - [id number] IMPLANTS SCREW,LCK,STAP,STAR,2X18MM (8322066) [facility] Right 1 Implanted PLATE,LCP,7H,2.0X52MM ([id number]) - [id number] IMPLANTS PLATE,LCP,7H,2.0X52MM (9983474) [facility] Right 1 Implanted PLATE,CNDYLR,LCP,7H,2.4MM ([id number]) (AutoReq) - [id number] IMPLANTS PLATE,CNDYLR,LCP,7H,2.4MM (0969952) (AutoReq) [facility] Right 1 Implanted BONE,CRUSHED,CANCELLOUS,10CC ([id number]) (AutoReq) - [id number] IMPLANTS BONE,CRUSHED,CANCELLOUS,10CC([id number]) (AutoReq) [facility] [id number] Right 1 Implanted PIN,KWIRE,TROC 1ED,NS,[id number] ([id number]) - [id number] IMPLANTS PIN,KWIRE,TROC 1ED,NS,[id number] ([id number]) [facility] Right 2 Implanted and Explanted PIN,KWIRE,PLAIN,2,0.981Z4RK,NS ([id number]) - [id number] IMPLANTS PIN,KWIRE,PLAIN,2,0.717S2LU,NS ([id number]) [employer] [facility] Left 3 Implanted PLATE,LCP,CNDYLR,7H-SHFT,2MM (0627274) - [id number] IMPLANTS PLATE,LCP,CNDYLR,7H-SHFT,2MM (6035489)[facility] Left 1 Implanted SCREW,LCK,STAP,STAR,2X12MM ([id number]) - [id number] IMPLANTS SCREW,LCK,STAP,STAR,2X12MM (0532945) [facility] Left 1 Implanted SCREW,LCK,STAP,STAR,2X10MM (8583463) - [id number] IMPLANTS SCREW,LCK,STAP,STAR,2X10MM ([id number]) [facility] Left 1 Implanted SCREW,CRTX,STAP,STAR,2X12MM ([id number]) - [id number] IMPLANTS SCREW,CRTX,STAP,STAR,2X12MM (2406474) [facility] Left 1 Implanted SCREW,CRTX,STAP,STAR,2X14MM ([id number]) - [id number] IMPLANTS SCREW,CRTX,STAP,STAR,2X14MM ([id number]) [facility] Left 1 Implanted SCREW,CRTX,STAP,STAR,2X14MM ([id number]) - [id number] IMPLANTS SCREW,CRTX,STAP,STAR,2X14MM ([id number]) [facility] Right 1 Implanted SCREW,VA,LCK,SLFTP,T6,2X22MM ([id number]) - [id number] IMPLANTS SCREW,VA,LCK,SLFTP,T6,2X22MM ([id number])[employer] Right 1 Implanted SCREW,VA,LCK,SLFTP,T6,2X18MM ([id number]) - [id number] IMPLANTS SCREW,VA,LCK,SLFTP,T6,2X18MM ([id number])[employer] Right 1 Implanted SCREW,VA,LCK,SLFTP,T6,2X16MM ([id number]) - [id number] IMPLANTS SCREW,VA,LCK,SLFTP,T6,2X16MM ([id number])[facility] Right 1 Implanted SCREW,CRTX,STAP,STAR,2X16MM ([id number]) - [id number] IMPLANTS SCREW,CRTX,STAP,STAR,2X16MM (6766729) [facility] Right 1 Implanted SCREW,CRTX,STAP,STAR,2X12MM ([id number]) - [id number] IMPLANTS SCREW,CRTX,STAP,STAR,2X12MM ([id number]) [facility] Right 1 Implanted SCREW,CRTX,STAP,STRDRV,2X10MM (6977032) - [id number] IMPLANTS SCREW,CRTX,STAP,STRDRV,2X10MM ([id number]) [facility] Left 1 Implanted GUIDEW,THRD,1.1V470QJ ([id number]) - [id number] IMPLANTS GUIDEW,THRD,1.6F688NS ([id number]) [facility]; [facility] Right 3 Implanted Number of fracture regions: [...] or concerns. Lauren Perales PT, DPT Pager: [phone] 09/16/18 Inpatient Rehabilitation Department * Plan of [...] up as able/appropriate. Ori Valencia OT Pager: [phone] * Initial Assessments - Kathrin Madsen RN [...] MEDICAID [place] Prescription Coverage: [facility] Other: Primary Care Provider: LILLY Gaitan [phone] Patient/Caregiver Goals of Treatment: agreed to go [...] kind. She agrees to snf referrals, [facility], [facility]. Referral submitted. Plan: snf vs swing vs acute. A member of the Care Management team will continue to monitor progress, follow for continuity of care and assist with transition of care planning. Kathrin Madsen RN Pager: [phone] * Plan of Care - Horace Beckman [...] Glucose, POC 139 65 - 199 mg/dL [facility] Comment: Supplemental ranges: <140 mg/dL before meals <180 mg/dL all other times of the day Blood specimen (specimen) 09/20/2018 11:29 AM EDT 09/20/2018 11:29 AM EDT Javad Urban MD POINT OF CARE TEST O RDERABLES [facility] [place] [address] * POCT Glucose (09/20/2018 8:02 AM EDT) Glucose, POC 167 65 - 199 mg/dL [facility] Comment: Supplemental ranges: <140 mg/dL before meals <180 mg/dL all other times of the day Blood specimen (specimen) 09/20/2018 8:02 AM EDT 09/20/2018 8:02 AM EDT Javad Urban MD POINT OF CARE TEST O RDERALISSETT Performing Organization Address [facility] Co de Phone Number [facility] [place] [address] * POCT Glucose (09/20/2018 4:03 AM EDT) Glucose, POC 127 65 - 199 mg/dL [facility] Comment: Supplemental ranges: <140 mg/dL before meals <180 mg/dL all other times of the day Blood specimen (specimen) 09/20/2018 4:03 AM EDT 09/20/2018 4:03 AM EDT Javad Urban MD POINT OF CARE TEST O JONY Performing Organization Address [facility] Co de Phone Number [facility] [place] [address] * POCT Glucose (09/19/2018 11:45 PM EDT) Glucose, POC 146 65 - 199 mg/dL [facility] Comment: Supplemental ranges: <140 mg/dL before meals <180 mg/dL all other times of the day Blood specimen (specimen) 09/19/2018 11:45 PM EDT 09/19/2018 11:45 PM EDT Javad Ubran MD POINT OF CARE TEST O RDERALISSETT Performing Organization Address [facility] Co de Phone Number [facility] [place] [address] * POCT Glucose (09/19/2018 7:26 PM EDT) Glucose, POC 149 65 - 199 mg/dL [facility] Comment: Supplemental ranges: <140 mg/dL before meals <180 mg/dL all other times of the day Blood specimen (specimen) 09/19/2018 7:26 PM EDT 09/19/2018 7:26 PM EDT Javad Urban MD POINT OF CARE TEST O RDSILVIO Performing Organization Address City/[facility]/ZIP Co de Phone Number [facility] [place] [address] * POCT Glucose (09/19/2018 4:14 PM EDT) Glucose, POC 144 65 - 199 mg/dL [facility] Comment: Supplemental ranges: <140 mg/dL before meals <180 mg/dL all other times of the day Blood specimen (specimen) 09/19/2018 4:14 PM EDT 09/19/2018 4:14 PM EDT Javad Urban MD POINT OF CARE TEST O JONY Performing Organization Address [facility]/ZIP Co de Phone Number [facility] [place] [address] * POCT Glucose (09/19/2018 11:28 AM EDT) Glucose, POC 170 65 - 199 mg/dL [facility] Comment: Supplemental ranges: <140 mg/dL before meals <180 mg/dL all other times of the day Blood specimen (specimen) 09/19/2018 11:28 AM EDT 09/19/2018 11:28 AM EDT Javad Urban MD POINT OF CARE TEST O JONY Performing Organization Address City/[facility]/ZIP Co de Phone Number [facility] [place] [address] * POCT Glucose (09/19/2018 7:54 AM EDT) Glucose, POC 120 65 - 199 mg/dL [facility] Comment: Supplemental ranges: <140 mg/dL before meals <180 mg/dL all other times of the day Blood specimen (specimen) 09/19/2018 7:54 AM EDT 09/19/2018 7:54 AM EDT Javad Urban MD POINT OF CARE TEST O RDERABLES Performing Organization Address [facility] Co de Phone Number [facility] [place] [address] * POCT Glucose (09/19/2018 3:42 AM EDT) Glucose, POC 105 65 - 199 mg/dL [facility] Comment: Supplemental ranges: <140 mg/dL before meals <180 mg/dL all other times of the day Blood specimen (specimen) 09/19/2018 3:42 AM EDT 09/19/2018 3:42 AM EDT Javad Urban MD POINT OF CARE TEST O RDERALISSETT Performing Organization Address [facility] Co de Phone Number [facility] [place] [address] * Magnesium (09/19/2018 3:40 AM EDT) [facility] Signature Magnesium 0.74 0.69 - 1.07 mmol/L [facility] Blood specimen (specimen) Venous Draw / Unknown 09/19/2018 3:40 AM EDT 09/19/2018 4:40 AM EDT Narrative Resulting Agency Comment Spec In Lab Buffy CARR CHEMISTRY ORDERAB LES Performing Organization Address [facility] Co de Phone Number [facility] [place] [address] * (ABNORMAL) Basic Metabolic Panel (non-fasting) (09/19/2018 3:40 AM EDT) Glucose 111 65 - 199 mg/dL [facility] Comment:Diabetes: >=200 mg/d L plus symptoms Blood Urea Nitrogen 11 8 - 18 mg/dL [facility] Creatinine 0.64(L) 0.70 - 1.20 mg/dL [facility] Sodium 140 135 - 145 mmol/L [facility] Potassium 4.0 3.5 - 5.0 mmol/L [facility] Comment: Please note: ??Patients with WBC >100,000 may have falsely elevated Potassium levels. ??For accurate Potassium quantification in these patients send serum separator tube (gold top) for subsequent determinations. ??Contact the Clinical Chemistry Laboratory if there are any questions. Chloride 104 98 - 107 mmol/L [facility] Carbon Dioxide 27 22 - 31 mmol/L [facility] Anion Gap 9 5 - 15 mmol/L [facility] Calcium 8.9 8.5 - 10.5 mg/dL [facility] Est Glomerular Filtration Rate 103 >=60 mL/min/1. 73 m?? [facility] Comment: The eGFR was calculated using the CKD-EPI equation. As with all creatinine based estimates of kidney function, eGFR values calculated with the CKD-EPI equation are not accurate in patients with acute kidney failure, extremes of body mass or the acutely ill. [email or web address]/[facility] [place] eGFR 120 >=60 mL/min/1. 73 m?? [facility] Comment: The eGFR was calculated using the CKD-EPI equation. As with all creatinine based estimates of kidney function, eGFR values calculated with the CKD-EPI equation are not accurate in patients with acute kidney failure, extremes of body mass or the acutely ill. [email or web address] Blood specimen (specimen) 09/19/2018 3:40 AM EDT 09/19/2018 3:53 AM EDT Narrative Resulting Agency Comment Spec In Lab Trina Loo APRN CHEMISTRY ORDERABLE S [facility] [place] [address] * POCT Glucose (09/18/2018 11:20 PM EDT) Glucose, POC 150 65 - 199 mg/dL [facility] Comment: Supplemental ranges: <140 mg/dL before meals <180 mg/dL all other times of the day Blood specimen (specimen) 09/18/2018 11:20 PM EDT 09/18/2018 11:20 PM EDT Javad Urban MD POINT OF CARE TEST O JONY Performing Organization Address City/[facility]/ZIP Co de Phone Number [facility] [place] [address] * POCT Glucose (09/18/2018 7:57 PM EDT) Glucose, POC 103 65 - 199 mg/dL [facility] Comment: Supplemental ranges: <140 mg/dL before meals <180 mg/dL all other times of the day Blood specimen (specimen) 09/18/2018 7:57 PM EDT 09/18/2018 7:57 PM EDT Javad Urban MD POINT OF CARE TEST O JONY Performing Organization Address [facility] Co de Phone Number [facility] [place] [address] * POCT Glucose (09/18/2018 4:56 PM EDT) Glucose, POC 142 65 - 199 mg/dL [facility] Comment: Supplemental ranges: <140 mg/dL before meals <180 mg/dL all other times of the day Blood specimen (specimen) 09/18/2018 4:56 PM EDT 09/18/2018 4:56 PM EDT Javad Urban MD POINT OF CARE TEST O JONY Performing Organization Address City/[facility] Co de Phone Number [facility] [place] [address] * POCT Glucose (09/18/2018 11:59 AM EDT) Glucose, POC 160 65 - 199 mg/dL [facility] Comment: Supplemental ranges: <140 mg/dL before meals <180 mg/dL all other times of the day Blood specimen (specimen) 09/18/2018 11:59 AM EDT 09/18/2018 11:59 AM EDT Javad Urban MD POINT OF CARE TEST O JONY Performing Organization Address [facility] Co de Phone Number [facility] [place] [address] * POCT Glucose (09/18/2018 7:55 AM EDT) Glucose, POC 126 65 - 199 mg/dL [facility] Comment: Supplemental ranges: <140 mg/dL before meals <180 mg/dL all other times of the day Blood specimen (specimen) 09/18/2018 7:55 AM EDT 09/18/2018 7:55 AM EDT Javad Urban MD POINT OF CARE TEST O JONY Performing Organization Address [facility] de Phone Number [facility] [place] [address] * POCT Glucose (09/18/2018 3:58 AM EDT) Glucose, POC 125 65 - 199 mg/dL [facility] Comment: Supplemental ranges: <140 mg/dL before meals <180 mg/dL all other times of the day Blood specimen (specimen) 09/18/2018 3:58 AM EDT 09/18/2018 3:58 AM EDT Javad Urban MD POINT OF CARE TEST O RDERALISSETT Performing Organization Address [facility] de Phone Number [facility] [place] [address] * (ABNORMAL) Magnesium (09/18/2018 3:37 AM EDT) Magnesium 0.67(L) 0.69 - 1.07 mmol/L [facility] Blood specimen (specimen) Venous Draw / Unknown 09/18/2018 3:37 AM EDT 09/18/2018 4:55 AM EDT Narrative Resulting Agency Comment Spec In Lab Trina Mueller Eze CARLOS CHEMISTRY ORDERABLE S [facility] [place] [address] * (ABNORMAL) Basic Metabolic Panel (non-fasting) (09/18/2018 3:37 AM EDT) Glucose 106 65 - 199 mg/dL [facility] Comment:Diabetes: >=200 mg/d L plus symptoms Blood Urea Nitrogen 7(L) 8 - 18 mg/dL [facility] Creatinine 0.62(L) 0.70 - 1.20 mg/dL [facility] Sodium 143 135 - 145 mmol/L [facility] Potassium 3.1(L) 3.5 - 5.0 mmol/L [facility] Comment: Please note: ??Patients with WBC >100,000 may have falsely elevated Potassium levels. ??For accurate Potassium quantification in these patients send serum separator tube (gold top) for subsequent determinations. ??Contact the Clinical Chemistry Laboratory if there are any questions. Chloride 106 98 - 107 mmol/L [facility] Carbon Dioxide 26 22 - 31 mmol/L [facility] Anion Gap 11 5 - 15 mmol/L [facility] Calcium 8.5 8.5 - 10.5 mg/dL [facility] Est Glomerular Filtration Rate 104 >=60 mL/min/1. 73 m?? [facility] Comment: The eGFR was calculated using the CKD-EPI equation. As with all creatinine based estimates of kidney function, eGFR values calculated with the CKD-EPI equation are not accurate in patients with acute kidney failure, extremes of body mass or the acutely ill. http://dynaTrace [email or web address] eGFR 121 >=60 mL/min/1. 73 m?? [facility] Comment: The eGFR was calculated using the CKD-EPI equation. As with all creatinine based estimates of kidney function, eGFR values calculated with the CKD-EPI equation are not accurate in patients with acute kidney failure, extremes of body mass or the acutely ill. [email or web address]://dynaTrace [email or web address] Blood specimen (specimen) 09/18/2018 3:37 AM EDT 09/18/2018 3:59 AM EDT Narrative Resulting Agency Comment Spec In Lab Trina Loo APRN CHEMISTRY ORDERABLE S Performing Organization Address [facility] Co de Phone Number [facility] [place] [address] * POCT Glucose (09/17/2018 11:33 PM EDT) Glucose, POC 145 65 - 199 mg/dL [facility] Comment: Supplemental ranges: <140 mg/dL before meals <180 mg/dL all other times of the day Blood specimen (specimen) 09/17/2018 11:33 PM EDT 09/17/2018 11:33 PM EDT Javad Urban MD POINT OF CARE TEST O RDERABLES Performing Organization Address [facility] Co de Phone Number [facility] [place] [address] * (ABNORMAL) POCT Glucose (09/17/2018 7:24 PM EDT) Glucose, POC 200(H) 65 - 199 mg/dL [facility] Comment: Supplemental ranges: <140 mg/dL before meals <180 mg/dL all other times of the day Blood specimen (specimen) 09/17/2018 7:24 PM EDT 09/17/2018 7:24 PM EDT Javad Urban MD POINT OF CARE TEST O RDERABLES Performing Organization Address [facility] Co de Phone Number [facility] [place] [address] * POCT Glucose (09/17/2018 3:16 PM EDT) Glucose, POC 180 65 - 199 mg/dL [facility] Comment: Supplemental ranges: <140 mg/dL before meals <180 mg/dL all other times of the day Blood specimen (specimen) 09/17/2018 3:16 PM EDT 09/17/2018 3:16 PM EDT Javad Urban MD POINT OF CARE TEST O RDSILVIO Performing Organization Address [facility] Co de Phone Number [facility] [place] [address] * POCT Glucose (09/17/2018 12:01 PM EDT) Glucose, POC 137 65 - 199 mg/dL [facility] Comment: Supplemental ranges: <140 mg/dL before meals <180 mg/dL all other times of the day Blood specimen (specimen) 09/17/2018 12:01 PM EDT 09/17/2018 12:01 PM EDT Javad Urban MD POINT OF CARE TEST O JONY Performing Organization Address [facility] Co de Phone Number [facility] [place] [address] * EEG awake, asleep, drowsy, routine (09/17/2018 [...] and witnessed facial and arm twitching at [facility] (witnessed by nursing). Also has [...] tablet 1,000 mg ??1,000 mg Oral Q8H [facility] Sanket Freeman MD ?? [...] injection 1-4 Units ??1-4 Units Subcutaneous Q4H [facility] Sanket Freeman MD ?? 1 Units at 09/15/18 2305 ? ? ondansetron (ZOFRAN) injection 4 mg ??4 mg Intravenous Q8H PRSanket Friedman MD ?? 4 mg at 09/16/18 0721 ? ? prochlorperazine (COMPAZINE) injection 10 mg ??10 mg Intravenous Q6H PRSanket Friedman MD ?? 10 mg at 09/15/18 2051 METHODS: A 21 channel digitized electroencephalogram was performed in the [facility] Clinical Neurophysiology Laboratory. The 10/20 international system of electrode placement was used and bipolar and referential electrode montages were recorded. ??In addition to EEG the patient was monitored for EKG and lateral/vertical eye movements. Video was recorded during the session. The duration of the recording was 30 minutes. PROGRAM DIRECTOR AIR TALENT'S REPORT:Performed by: RR/CM Patient was not sleep [...] Angel MD Clinical Neurophysiology Fellow Personal Pager #[phone] Epilepsy Neurology #[phone] Neurology Attending I have personally reviewed the EEG, and I agree with the details as written. ?? The above report was formulated in discussion with me at the time of EEG reading, and I agree with it as documented. Jose Singer MD Department [place] [address] Pager: [phone], #[phone] Email: [email or web address] Javad Urban MD NEUROLOGY ORDERABLES * (ABNORMAL) Basic Metabolic Panel (non-fasting) (09/17/2018 9:02 AM EDT) Glucose 121 65 - 199 mg/dL [facility] Comment:Diabetes: >=200 mg/d L plus symptoms Blood Urea Nitrogen 9 8 - 18 mg/dL [facility] Creatinine 0.59(L) 0.70 - 1.20 mg/dL [facility] Sodium 144 135 - 145 mmol/L [facility] Potassium 2.9(Criti toy) 3.5 - 5.0 mmol/L [facility] Comment: Called by: maged/neda, Read back by: Aruna Calvo, Date/Time:09/17/18 10:19. Please note: ??Patients with WBC >100,000 may have falsely elevated Potassium levels. ??For accurate Potassium quantification in these patients send serum separator tube (gold top) for subsequent determinations. ??Contact the Clinical Chemistry Laboratory if there are any questions. Chloride 108(H) 98 - 107 mmol/L [facility] Carbon Dioxide 25 22 - 31 mmol/L [facility] Anion Gap 11 5 - 15 mmol/L [facility] Calcium 8.0(L) 8.5 - 10.5 mg/dL [facility] Est Glomerular Filtration Rate 106 >=60 mL/min/1. 73 m?? [facility] Comment: The eGFR was calculated using the CKD-EPI equation. As with all creatinine based estimates of kidney function, eGFR values calculated with the CKD-EPI equation are not accurate in patients with acute kidney failure, extremes of body mass or the acutely ill. http://dynaTrace [email or web address] eGFR 123 >=60 mL/min/1. 73 m?? [facility] Comment: The eGFR was calculated using the CKD-EPI equation. As with all creatinine based estimates of kidney function, eGFR values calculated with the CKD-EPI equation are not accurate in patients with acute kidney failure, extremes of body mass or the acutely ill. [email or web address] Blood specimen (specimen) 09/17/2018 9:02 AM EDT 09/17/2018 9:17 AM EDT Narrative Resulting Agency Comment Spec In Lab Javad Urban MD CHEMISTRY ORDERABLES Performing Organization Address [facility] Co de Phone Number [facility] [place] [address] * POCT Glucose (09/17/2018 7:33 AM EDT) Glucose, POC 136 65 - 199 mg/dL [facility] Comment: Supplemental ranges: <140 mg/dL before meals <180 mg/dL all other times of the day Blood specimen (specimen) 09/17/2018 7:33 AM EDT 09/17/2018 7:33 AM EDT Javad Urban MD POINT OF CARE TEST O RDERABLES Performing Organization Address [facility] Co de Phone Number [facility] [place] [address] * POCT Glucose (09/17/2018 3:29 AM EDT) Glucose, POC 126 65 - 199 mg/dL [facility] Comment: Supplemental ranges: <140 mg/dL before meals <180 mg/dL all other times of the day Blood specimen (specimen) 09/17/2018 3:29 AM EDT 09/17/2018 3:29 AM EDT Javad Urban MD POINT OF CARE TEST O RDERABLES Performing Organization Address [facility] Co de Phone Number [facility] [place] [address] * POCT Glucose (09/16/2018 11:25 PM EDT) Glucose, POC 123 65 - 199 mg/dL [facility] Comment: Supplemental ranges: <140 mg/dL before meals <180 mg/dL all other times of the day Blood specimen (specimen) 09/16/2018 11:25 PM EDT 09/16/2018 11:25 PM EDT Javad Urban MD POINT OF CARE TEST O JONY Performing Organization Address [facility]/ZIP Co de Phone Number [facility] [place] [address] * POCT Glucose (09/16/2018 8:29 PM EDT) Glucose, POC 114 65 - 199 mg/dL [facility] Comment: Supplemental ranges: <140 mg/dL before meals <180 mg/dL all other times of the day Blood specimen (specimen) 09/16/2018 8:29 PM EDT 09/16/2018 8:29 PM EDT Javad Urban MD POINT OF CARE TEST O JONY Performing Organization Address [facility]/ZIP Co de Phone Number [facility] [place] [address] * POCT Glucose (09/16/2018 3:35 PM EDT) Glucose, POC 106 65 - 199 mg/dL [facility] Comment: Supplemental ranges: <140 mg/dL before meals <180 mg/dL all other times of the day Blood specimen (specimen) 09/16/2018 3:35 PM EDT 09/16/2018 3:35 PM EDT Javad Urban MD POINT OF CARE TEST O JONY Performing Organization Address [facility]/ZIP Co de Phone Number [facility] [place] [address] * (ABNORMAL) Basic Metabolic Panel (non-fasting) (09/16/2018 3:33 PM EDT) Glucose 106 65 - 199 mg/dL [facility] Comment:Diabetes: >=200 mg/d L plus symptoms Blood Urea Nitrogen 13 8 - 18 mg/dL [facility] Creatinine 0.62(L) 0.70 - 1.20 mg/dL [facility] Sodium 147(H) 135 - 145 mmol/L [facility] Potassium 3.2(L) 3.5 - 5.0 mmol/L [facility] Comment: Please note: ??Patients with WBC >100,000 may have falsely elevated Potassium levels. ??For accurate Potassium quantification in these patients send serum separator tube (gold top) for subsequent determinations. ??Contact the Clinical Chemistry Laboratory if there are any questions. Chloride 112(H) 98 - 107 mmol/L [facility] Carbon Dioxide 22 22 - 31 mmol/L [facility] Anion Gap 13 5 - 15 mmol/L [facility] Calcium 8.1(L) 8.5 - 10.5 mg/dL [facility] Est Glomerular Filtration Rate 104 >=60 mL/min/1. 73 m?? [facility] Comment: The eGFR was calculated using the CKD-EPI equation. As with all creatinine based estimates of kidney function, eGFR values calculated with the CKD-EPI equation are not accurate in patients with acute kidney failure, extremes of body mass or the acutely ill. http://dynaTrace [email or web address] eGFR 121 >=60 mL/min/1. 73 m?? [facility] Comment: The eGFR was calculated using the CKD-EPI equation. As with all creatinine based estimates of kidney function, eGFR values calculated with the CKD-EPI equation are not accurate in patients with acute kidney failure, extremes of body mass or the acutely ill. http://dynaTrace [email or web address] Blood specimen (specimen) 09/16/2018 3:33 PM EDT 09/16/2018 3:49 PM EDT Narrative Resulting Agency Comment Spec In Lab Javad Urban MD CHEMISTRY ORDERABLES [facility] [place] [address] * Hemoglobin A1c (09/16/2018 3:33 PM EDT) Hemoglobin A1c 5.5 4.3 - 5.6 % [facility] Comment: Reference Range: 4.3 - [...] 1, S67-74 Estimated Average Glucose 111 mg/dL [facility] Comment: eAG equivalents for HbA1c [...] into estimated average glucose values. ??Diabetes Care 2008:31(8):1983-4659. Blood specimen (specimen) 09/16/2018 3:33 PM EDT 09/16/2018 3:49 PM EDT Narrative Resulting Agency Comment Spec In Lab Javad Urban MD CHEMISTRY ORDERABLES [facility] [place] [address] * XR Foot Min 3 views Bilat [...] Glucose, POC 126 65 - 199 mg/dL [facility] Comment: Supplemental ranges: <140 mg/dL before meals <180 mg/dL all other times of the day Blood specimen (specimen) 09/16/2018 1:56 PM EDT 09/16/2018 1:56 PM EDT Javad Urban MD POINT OF CARE TEST O RDERABLES [facility] [place] [address] * XR Fluoro No Rad <1Hr - OR Use (09/16/2018 1:10 PM EDT) Narrative RAD - 09/16/2018 1:11 PM EDT This order does not need a radiologist interpretation. ?? Javad Urban MD IMG FLUORO ORDERABLE S Performing Organization Address [facility] Co de Phone Number [place], [place] * POCT Glucose (09/16/2018 7:46 AM EDT) Glucose, POC 131 65 - 199 mg/dL [facility] Comment: Supplemental ranges: <140 mg/dL before meals <180 mg/dL all other times of the day Blood specimen (specimen) 09/16/2018 7:46 AM EDT 09/16/2018 7:46 AM EDT Javad Urban MD POINT OF CARE TEST O RDERABLES Performing Organization Address [facility] Co de Phone Number [facility] [place] [address] * Urine Hold (09/16/2018 6:07 AM EDT) Hold, Urine Sample in lab. [facility] Urine specimen (specimen) Urine / Unknown 09/16/2018 6:07 AM EDT 09/16/2018 6:54 AM EDT Sanket Freeman MD URINE ORDERABLES Performing Organization Address [facility] Co de Phone Number [facility] [place] [address] * (ABNORMAL) Urinalysis with reflex Culture (09/16/2018 6:07 AM EDT) Glucose, Urine Dipstick Negative Negative mg/dL [facility] Protein, Urine Dipstick Negative Negative mg/dL [facility] Bilirubin, Urine Dipstick Negative Negative mg/dL [facility] Comment: Clinical correlation required for positive Urine Bilirubin results as false positive may occur with some drugs and drug related products. If a false positive is suspected a serum total bilirubin should be considered if clinically indicated. Urobilinogen, Urine Dipstick Normal Normal mg/dL [facility] pH, Urn (dipstick) 6.0 5.0 - 8.0 [facility] Blood, Urine Dipstick Negative Negative mg/dL [facility] Ketone, Urine Dipstick 5(A) Negative mg/dL [facility] Nitrite, Urine Dipstick Negative Negative [facility] Leukocytes, Urine Dipstick Negative Negative [facility] Appearance, Urine Dipstick Clear Clear [facility] Specific [place] Urine Automated 1.012 1.002 - 1.030 [facility] Color, Urine Dipstick Straw Yellow [facility] Reflex to Culture No [facility] Urine specimen (specimen) 09/16/2018 6:07 AM EDT 09/16/2018 6:52 AM EDT Narrative Resulting Agency Comment Spec In Lab Javad Urban MD URINE ORDERABLES Performing Organization Address City/[facility]/ZIP Co de Phone Number [facility] [place] [address] * POCT Glucose (09/16/2018 3:30 AM EDT) Glucose, POC 126 65 - 199 mg/dL [facility] Comment: Supplemental ranges: <140 mg/dL before meals <180 mg/dL all other times of the day Blood specimen (specimen) 09/16/2018 3:30 AM EDT 09/16/2018 3:30 AM EDT Javad Urban MD POINT OF CARE TEST O RDERABLES Performing Organization Address City/[facility]/ZIP Co de Phone Number [facility] [place] [address] * POCT Glucose (09/15/2018 10:59 PM EDT) Glucose, POC 143 65 - 199 mg/dL [facility] Comment: Supplemental ranges: <140 mg/dL before meals <180 mg/dL all other times of the day Blood specimen (specimen) 09/15/2018 10:59 PM EDT 09/15/2018 10:59 PM EDT Javad Urban MD POINT OF CARE TEST O JONY Performing Organization Address [facility] Co de Phone Number [facility] [place] [address] * POCT Glucose (09/15/2018 8:10 PM EDT) Glucose, POC 100 65 - 199 mg/dL [facility] Comment: Supplemental ranges: <140 mg/dL before meals <180 mg/dL all other times of the day Blood specimen (specimen) 09/15/2018 8:10 PM EDT 09/15/2018 8:10 PM EDT Javad Urban MD POINT OF CARE TEST Rosie BORGES Performing Organization Address [facility] Co de Phone Number [facility] [place] [address] * POCT Glucose (09/15/2018 3:43 PM EDT) Glucose, POC 173 65 - 199 mg/dL [facility] Comment: Supplemental ranges: <140 mg/dL before meals <180 mg/dL all other times of the day Blood specimen (specimen) 09/15/2018 3:43 PM EDT 09/15/2018 3:43 PM EDT Javad Urban MD POINT OF CARE TEST O JONY Performing Organization Address City/[facility] Co de Phone Number [facility] [place] [address] * POCT Glucose (09/15/2018 12:05 PM EDT) Glucose, POC 177 65 - 199 mg/dL [facility] Comment: Supplemental ranges: <140 mg/dL before meals <180 mg/dL all other times of the day Blood specimen (specimen) 09/15/2018 12:05 PM EDT 09/15/2018 12:05 PM EDT Javad Urban MD POINT OF CARE TEST O JONY Performing Organization Address [facility] de Phone Number [facility] [place] [address] * (ABNORMAL) POCT Glucose (09/15/2018 7:39 AM EDT) Glucose, POC 206(H) 65 - 199 mg/dL [facility] Comment: Supplemental ranges: <140 mg/dL before meals <180 mg/dL all other times of the day Blood specimen (specimen) 09/15/2018 7:39 AM EDT 09/15/2018 7:39 AM EDT Javad Urban MD POINT OF CARE TEST O JONY Performing Organization Address [facility] de Phone Number [facility] [place] [address] * POCT Glucose (09/15/2018 4:12 AM EDT) Glucose, POC 141 65 - 199 mg/dL [facility] Comment: Supplemental ranges: <140 mg/dL before meals <180 mg/dL all other times of the day Blood specimen (specimen) 09/15/2018 4:12 AM EDT 09/15/2018 4:12 AM EDT Javad Urban MD POINT OF CARE TEST O JONY Performing Organization Address [facility] Co de Phone Number [facility] [place] [address] * ABORH Recheck Status (09/15/2018 3:44 AM EDT) ABORH Recheck Order Order Placed [facility] ABORH Type Recheck Complete [facility] Blood specimen (specimen) 09/15/2018 3:44 AM EDT 09/15/2018 3:59 AM EDT Narrative Resulting Agency Comment Spec In Lab Ori Santos MD BLOOD BANK LAB ORDER MADHAVI Performing Organization Address City/[facility]/ZIP Co de Phone Number [facility] [place] [address] * Antibody screen (09/15/2018 3:44 AM EDT) Ab Screen Interp Negative [facility] Expires at [id number] on: 09/18/2018 [facility] Blood specimen (specimen) 09/15/2018 3:44 AM EDT 09/15/2018 3:59 AM EDT Narrative Resulting Agency Comment Spec In Lab Ori Santos MD BLOOD BANK LAB ORDER MADHAVI Performing Organization Address City/[facility] Co de Phone Number [facility] [place] [address] * ABO/Rh Typing (09/15/2018 3:44 AM EDT) ABORH Type A Pos [facility] Blood specimen (specimen) 09/15/2018 3:44 AM EDT 09/15/2018 3:59 AM EDT Narrative Resulting Agency Comment Spec In Lab Ori Santos MD BLOOD BANK LAB ORDER MADHAVI Performing Organization Address City/[facility]/ZIP Co de Phone Number [facility] [place] [address] * (ABNORMAL) Differential, Automated (09/15/2018 3:44 AM EDT) Neutrophil % 64.7 % [facility] Neutrophil Absolute 7.24(H) 1.70 - 6.10 x10(3)/mc L [facility] Lymph % 21.6 % [facility] Lymphocytes Abs 2.4 0.9 - 3.2 x10(3)/mc L [facility] Monocyte % 10.8 % [facility] Monocyte Abs 1.2(H) 0.3 - 0.9 x10(3)/[facility] Eos % 0.2 % [facility] Eosinophils Abs 0.0 0.0 - 0.4 x10(3)/[facility] Basophil % 0.4 % [facility] Baso Absolute 0.0 0.0 - 0.1 x10(3)/[facility] Immature Gran % 2.30 % [facility] Comment: Immature granulocytes(IG's)percentage and absolute count will include metamyelocytes, myelocytes, and promyelocytes. Blood smears from CBCs yielding IG's will be scanned manually for concordance. If this scan disagrees with the automated IG or if promyelocytes are noted, a manual differential will be performed. Immature Gran Absolute 0.26(H) 0.00 - 0.04 x10(3)/[facility] Blood specimen (specimen) 09/15/2018 3:44 AM EDT 09/15/2018 4:18 AM EDT Narrative Resulting Agency Comment Spec In Lab Ori Santos MD HEMATOLOGY ORDERABLE S [facility] [place] [address] * (ABNORMAL) Hemogram (09/15/2018 3:44 AM EDT) White Blood Cell 11.2(H) 4.0 - 9.5 x10(3)/[facility] Red Blood Cell 3.05(L) 4.00 - 5.21 x10(6)/[facility] Hemoglobin 9.6(L) 11.7 - 15.5 gm/dL [facility] Hematocrit 29.5(L) 35.7 - 45.8 % [facility] Mean Cell Volume 96.7(H) 82.6 - 94.4 fL [facility] Mean Cell Hemoglobin 31.5 27.1 - 32.0 pg [facility] Mean Cell Hemoglobin Concentration 32.5 31.7 - 35.0 gm/dL [facility] Platelet 244 145 - 357 x10(3)/mc L [facility] RDW Standard Deviation 50.8(H) 37.0 - 46.0 fL [facility] RDW coefficient of variation 14.3(H) 11.5 - 14.1 % [facility] Mean Platelet Volume 10.9 7.6 - 12.9 fL [facility] NRBC% auto 0.0 % [facility] NRBC Absolute 0.000 0.000 - 0.000 x10(3)/mc L [facility] Blood specimen (specimen) 09/15/2018 3:44 AM EDT 09/15/2018 4:18 AM EDT Narrative Resulting Agency Comment Spec In Lab Ori Santos MD HEMATOLOGY ORDERABLE S Performing Organization Address City/[facility]/ZIP Co de Phone Number [facility] [place] [address] * Prothrombin Time (09/15/2018 3:44 AM EDT) Prothrombin Time 12.0 9.4 - 12.5 sec [facility] International Normalization Ratio 1.0 [facility] Comment: An INR <2.0 indicates [...] MD HEMATOLOGY ORDERABLE S Performing Organization Address City/[facility]/ZIP Co de Phone Number [facility] [place] [address] * (ABNORMAL) Basic Metabolic Panel (non-fasting) (09/15/2018 3:44 AM EDT) Glucose 135 65 - 199 mg/dL [facility] Comment:Diabetes: >=200 mg/d L plus symptoms Blood Urea Nitrogen 18 8 - 18 mg/dL [facility] Creatinine 0.74 0.70 - 1.20 mg/dL [facility] Sodium 142 135 - 145 mmol/L [facility] Potassium 3.6 3.5 - 5.0 mmol/L [facility] Comment: Please note: ??Patients with WBC >100,000 may have falsely elevated Potassium levels. ??For accurate Potassium quantification in these patients send serum separator tube (gold top) for subsequent determinations. ??Contact the Clinical Chemistry Laboratory if there are any questions. Chloride 113(H) 98 - 107 mmol/L [facility] Carbon Dioxide 20(L) 22 - 31 mmol/L [facility] Anion Gap 9 5 - 15 mmol/L [facility] Calcium 7.9(L) 8.5 - 10.5 mg/dL [facility] Est Glomerular Filtration Rate 94 >=60 mL/min/1. 73 m?? [facility] Comment: The eGFR was calculated using the CKD-EPI equation. As with all creatinine based estimates of kidney function, eGFR values calculated with the CKD-EPI equation are not accurate in patients with acute kidney failure, extremes of body mass or the acutely ill. http://dynaTrace software/[facility] CITYnk[facility] eGFR 109 >=60 mL/min/1. 73 m?? [facility] Comment: The eGFR was calculated using the CKD-EPI equation. As with all creatinine based estimates of kidney function, eGFR values calculated with the CKD-EPI equation are not accurate in patients with acute kidney failure, extremes of body mass or the acutely ill. http://dynaTrace software/[facility] CITYnkf Blood specimen (specimen) 09/15/2018 3:44 AM EDT 09/15/2018 4:18 AM EDT Narrative Resulting Agency Comment Spec In Lab Javad Urban MD CHEMISTRY ORDERABLES Performing Organization Address [facility] de Phone Number [facility] [place] [address] * POCT Glucose (09/14/2018 9:52 PM EDT) Glucose, POC 124 65 - 199 mg/dL [facility] Comment: Supplemental ranges: <140 mg/dL before meals <180 mg/dL all other times of the day Blood specimen (specimen) 09/14/2018 9:52 PM EDT 09/14/2018 9:52 PM EDT Javad Urban MD POINT OF CARE TEST O RDERABLES Performing Organization Address [facility] de Phone Number [facility] [place] [address] * Film Library- Storage Only MR Head (09/13/2018 12:10 AM EDT) Narrative [facility] - 09/15/2018 10:49 AM EDT This exam is auto-finalizing. It's purpose is for storage only. Javad Urban MD IMG FILM LIBRARY ORD ERABLES Performing Organization Address [facility] de Phone Number [place], [place] * Film Library- Storage Only Ultrasound Study (09/13/2018 12:05 AM EDT) Narrative [facility] - 09/15/2018 10:47 AM EDT This exam is auto-finalizing. It's purpose is for storage only. Javad KINGG FILM LIBRARY ORD ERABLES Performing Organization Address [facility] de Phone Number [place], [place] * Film Library- Storage Only DX Chest (09/13/2018 12:00 AM EDT) Narrative [facility] - 09/15/2018 10:46 AM EDT This exam is auto-finalizing. It's purpose is for storage only. Javad Urban MD IMG FILM LIBRARY ORD ERABLES [place], [place] documented in this encounter Visit Diagnoses [...] Stacey Duenas, JULI) 0522 (Given - Provider: tSacey Duenas, JULI)1210 (Given - Provider: Tiana Lujan, [...] parameters not met)1210 (Given - Provider: Mai Boes RN)1709 (Given - Provider: Mai Bose RN)2000 [...] Fely Freeman RN)1026 (See Alternative - Provider: aMi Bose, JULI)1520 (See Alternative - Provider: Mai [...] Mai Bose RN)1520 (Given - Provider: Mai Bsoe RN)2013 (Given - Provider: Fely Freeman RN) [...] Routine documented in this encounter Care Teams [employer] Relationship Specialty Start Date End Date None None PCP - General 09/14/18 09/30/18 documented as of this encounter
--- OUTSIDE RECORDS SUMMARY | 2024-06-08 15:13 | XMS_ITS | Encounter Summary ---
Author Organization [facility] Address [facility] [place] [address] Care Team Providers Care Weatherization Crew Leader Name Role Phone None Primary Care Provider Unavailabl e Encounter Details Date Type Department Care Team (Late st Contact Info) Description 09/20/2018 Orders [place] [address] Buffy Comer PA [facility] [address] [place] [address] S/P ORIF bilateral foot fractures, 09/16/18 (Gitajn) [...] number below. ? Electronically signed by: TAMMIE [facility] ([phone]), at 10/01/2018 9:51 AM Narrative 10/01/2018 9:51 [...] (Gitajn) documented in this encounter Care Teams Weatherization Crew Leader Relationship Specialty Start Date End Date None None PCP - General 09/14/18 09/30/18 documented as of this encounter
--- OUTSIDE RECORDS SUMMARY | 2024-06-08 15:13 | XMS_ITS | Encounter Summary ---
Author Organization [facility] Address [facility] [place] [address] Care Team Providers Care Orchestra Director Name Role Phone Yamile De Leon APRN Primary Care Provider [phone] Encounter Details Date Type Department Care Team (Latest Contact Info) Description 10/25/2018 9:58 AM EDT - 10/25/2018 11:59 PM EDT Hospital Encounter XRay at [address] [place] [address] Aparna Reed MD [facility] [place] [address] S/P ORIF bilateral foot fractures, 09/16/18 (Brianna) [...] below. ? Electronically signed by: TAMMIE Dailey [facility] ([phone]), at 10/25/2018 3:36 PM Narrative 10/25/2018 3:36 [...] internal fixation of a Lisfranc fracture-dislocation with uwtxp-vkd-wblzh constructs traversing the first and second tarsometatarsal joints and 3 Yaw wires traversing the third through fifth tarsometatarsal joints. Also status post wbacvoace-mlz-cyeol fixation of an intra-articular first proximal phalangeal [...] fractures and a Lisfranc fracture-dislocation with a xwvlh-vwx-kslwl construct traversing the fourth metatarsal base fracture [...] internal fixation of a Lisfranc fracture-dislocation with hxqcm-bdt-icuws constructs traversing the firstand second tarsometatarsal joints and 3 Yaw wires traversing the thirdthrough fifth tarsometatarsal joints. Also status post dwuckqkog-vva-wnlycyhxqejmd of an intra-articular first proximal phalangeal base [...] neck fractures and a Lisfranc fracture-dislocation with tjqccf-afm-uijre construct traversing the fourth metatarsal base fracture [...] number below. Electronically signed by: Gretchen Odell [facility] ([phone]),at 10/25/2018 3:36 PM Aparna Reed MD IMG DX ORDERABLES documented in this encounter Visit Diagnoses Diagnosis S/P ORIF bilateral foot fractures, 09/16/18 (Brianna) documented in this encounter Care Teams Orchestra Director Relationship Specialty Start Date End Date Yamile De Leon APRN PCP - General Family Medicine 10/01/18 11/19/23 documented as of this encounter
--- OUTSIDE RECORDS SUMMARY | 2024-06-08 15:13 | XMS_ITS | Encounter Summary ---
Author Organization [facility] Address [facility] [place] [address] Care Team Providers Care Inspector Boiler Name Role Phone Yamile De Leon APRN Primary Care Provider [phone] Encounter Details Date Type Department Care Team (Late st Contact Info) Description 03/30/2019 [place] [id number] Javad Urban MD [facility] DR ORTHOPAEDIC SURGERY [place] [id number] Social History Tobacco Use Types Packs/Day Years [...] care. Will fax signed paperwork back to [phone]. documented in this encounter Plan of Treatment Not on file documented as of this encounter Visit Diagnoses Not on filedocumented in this encounter Care Teams Inspector Boiler Relationship Specialty Start Date End Date Yamile De Leon APRN PCP - General Family Medicine 10/01/18 11/19/23 documented as of this encounter
--- OUTSIDE RECORDS SUMMARY | 2024-06-08 15:13 | XMS_ITS | Encounter Summary ---
Author Organization [facility] Address [facility] [place] [address] Care Team Providers Care Leaf Stripper Name Role Phone Yamile De Leon APRN Primary Care Provider [phone] Encounter Details Date Type Department Care Team (Late st Contact Info) Description 11/22/2018 Ancillary Procedure Radiology Library at [facility] [place] [address] Aparna Reed MD [facility] [place] [address] Social History Tobacco Use Types Packs/Day Years [...] MD IMG FILM LIBRARY ORD ERABLES [facility] [place], [place] documented in this encounter Visit Diagnoses Not on filedocumented in this encounter Care Teams Leaf Stripper Relationship Specialty Start Date End Date Yamile De Leon APRN PCP - General Family Medicine 10/01/18 11/19/23 documented as of this encounter
--- OUTSIDE RECORDS SUMMARY | 2024-06-08 15:13 | XMS_ITS | Encounter Summary ---
Author Organization [facility] Address [facility] [place] [address] Care Team Providers Care Busser Name Role Phone Yamile De Leon APRN Primary Care Provider [phone] Encounter Details Date Type Department Care Team (Late st Contact Info) Description 10/21/2018 [place] [address] Aparna Reed MD [facility] [place] [address] S/P ORIF bilateral foot fractures, 09/16/18 (Brianna) [...] internal fixation of a Lisfranc fracture-dislocation with lpdfy-ixm-tffpj constructs traversing the first and second tarsometatarsal joints and 3 Yaw wires traversing the third through fifth tarsometatarsal joints. Also status post avkkwtqyl-pvl-oeskm fixation of an intra-articular first proximal phalangeal [...] fractures and a Lisfranc fracture-dislocation with a shumt-abw-tdnnv construct traversing the fourth metatarsal base fracture [...] internal fixation of a Lisfranc fracture-dislocation with btyaz-iag-yxxqa constructs traversing the firstand second tarsometatarsal joints and 3 Yaw wires traversing the thirdthrough fifth tarsometatarsal joints. Also status post zilkqkkod-mdi-scfnsyufzbvgi of an intra-articular first proximal phalangeal base [...] neck fractures and a Lisfranc fracture-dislocation with hmmsul-anh-abtnw construct traversing the fourth metatarsal base fracture [...] number below. Electronically signed by: Gretchen [facility] ([phone]),at 10/25/2018 3:36 PM Aparna Reed MD IMG DX ORDERABLES documented in this encounter Visit Diagnoses Diagnosis S/P ORIF bilateral foot fractures, 09/16/18 (Brianna) S/P ORIF bilateral foot fractures, 09/16/18 (Brianna) documented in this encounter Care Teams Busser Relationship Specialty Start Date End Date Yamile De Leon APRN PCP - General Family Medicine 10/01/18 11/19/23 documented as of this encounter
--- OUTSIDE RECORDS SUMMARY | 2024-06-08 15:13 | XMS_ITS | Encounter Summary ---
[place] [address] Care Team Providers Care Roustabout Pusher Name Role Phone Unknown Primary Care Provider Unavailabl e Reason for Referral * Consultation (Routine) - Closed Specialty Diagnoses / Procedures Referred By Contac t Referred To Contact Infectious Diseases Diagnoses Osteomyelitis, unspecified site, unspecified [place] [address] [facility] [address] [place] [phone] Referral ID Status Reason Start Date Expiration Date V isits Requested Visits Authorized [id number] Closed Specialty Service Requested 11/21/2023 11/20/2024 1 1 Reason for Visit * Reason Comments Dental Pain * Auth/Cert (Routine) Specialty Diagnoses / Procedures Referred By Contac t Referred To Contact Diagnoses [place]omyel[place] [address] [facility] Referral ID Status Reason Start Date Expiration Date Visits Re quested Visits Authorized [id number] 1 1 Encounter Details Date Type Department Care Team (Latest Contact Info) Description 11/19/2023 10:47 AM EDT - 11/21/2023 2:10 PM EDT Hospital Encounter Medical Specialites Unit Level 1 [place] [address] [place] [address] [place] [address] [place] [address] [place] [address] Hypertension, unspecified type; Osteomyelitis, jaw acute; Osteomyelitis, unspecified site, unspecified type Discharge Disposition: Home Social History Tobacco Use Types Packs/Day Years Used Date Smoking Tobacco: Every Day Cigarettes 1 Smokeless Tobacco: Never Comments:Currently using kalia otine inhaler to help herself quit (11/08/18) Alcohol Use Standard Drinks/Week Comments Not Currently 0 (1 standard drink = 0.6 oz pur e alcohol) [facility] Utilities Answer Date Recorded In the past 12 months has th e [employer], gas, oil, or water [employer] threatened to shut off services in your [...] any time in the past 12 m [facility], were you homeless [...] Erickson La Patient Age: 58 y.o. Language: Lao Race: White Ethnicity: Not nor Admit date: [...] please contact your inpatient physician through the [facility] Aoc Director Combat Plans Officer . Issues afterhours and on weekends will [...] dry socket after being evaluated at an [facility] site. She had two additional antibiotics [...] Procedure Component Value Units Date/Time Urine culture [[id number]] Collected: 11/20/23 0722 Lab Status: Final result Specimen: First Catch Urine Updated: 11/21/23 0752 Urine Culture No growth (Less than 1,000 cfu/ml). Abscess/Wound Asp Culture, Aerobic and Anaerobic Fluid; Other [[id number]] (Abnormal) Collected: 11/19/23 164 Lab Status: Preliminary result Specimen: Fluid from Other Updated: 11/21/23 1302 Abscess/Wound Aspirate Culture [[id number]] (Abnormal) Collected: 11/19/23 164 Lab Status: Preliminary result Specimen: Fluid from Other Updated: 11/21/23 1302 Abscess/Wound Aspirate Culture -- Moderate Streptococcus milleri, anginosis group Rare normal oropharyngeal shala Gram Stain -- Many Neutrophils seen Rare Gram Positive Cocci seen Anaerobic Culture [[id number]] Collected: 11/19/23 164 Lab Status: Preliminary result Specimen: Fluid from Other Updated: 11/20/23 1417 Anaerobic Culture No anaerobic organisms isolated to date Studies: Results for orders placed or performed during the hospital encounter of 11/19/23 CT Face w Contrast (Exam End: 11/19/2023 12:37 PM) Result Value WORKSTATION ID [id number] Impression Advanced osteomyelitis of the anterior RIGHT [...] who have questions please contact the health director of home care hospice that requested your imaging first. Updated Allergies/ADRs: Allergies Allergen Reactions Bee Sting [...] HYDROcodone-acetaminophen 5-325 mg tablet Commonly known as: Grover ibuprofen 600 mg tablet Commonly known as: [...] spent >30 minutes (Day of Discharge Code 51814) involved in the final examination of the [...] ppx: enoxparin -PCP: Yamile De Leon APRN [phone] Attestation: IPI Certification I certify that I am a D-H credentialed attending provider with admitting privileges and that the patient meets or has met medical necessity to require an inpatient IPI level of care meeting a minimumof two midnights or is on the [facility] inpatient only procedure list (status C) [...] providers found PCP: Yamile De Leon APRN ([phone]) Chief Complaint Patient presents with Dental Pain ID: Erickson La is a 58 y.o. female w/ PMH of hypertension, chronic back pain, severe hot flashes, LORRI generally not using home CPAP, and non-insulin dependent diabetes mellitus, who was [facility] (now on Hospital Day #1) [...] Intake/Output Summary (Last 24 hours) at 11/20/2023 0630 Last data filed at 11/20/2023 0337 Gross [...] Component Value Units Date/Time Abscess/Wound Aspirate Culture [[id number]] (Abnormal) Collected: 11/19/23 1643 Lab Status: Preliminary result Specimen: Fluid from Other Updated: 11/19/232044 Gram Stain -- Many Neutrophils seen Rare Gram Positive Cocci seen Imaging/Diagnostics: Results for orders placed or performed during the hospital encounter of 11/19/23 (from the past 48 hour(s)) CT Face w Contrast (Exam End: 11/19/2023 12:37 PM) Result Value WORKSTATION ID [id number] Impression Advanced osteomyelitis of the anterior RIGHT [...] who have questions please contact the health director of home care hospice that requested your imaging first. Medications: Scheduled: cloNIDine 0.05 mg Oral Daily [...] dependent diabetes mellitus , [facility] ([facility] Hospital Day #1) [...] given as ordered. Pain meds given once night auditor. IV ABX tolerates without any complaints. Pt is aware a UA is needed, a hat is in place. Bed in low position, call jane and personal things within reach. Will continue to monitor. Will make RN and MD aware of any changes. * Paulino Li RN - 11/20/2023 3:46 AM EDT 0300- pt arrived to [facility] from ED. Pt oriented to room and [...] dry socket after being evaluated at an [facility] site. She had two additional antibiotics [...] 11/19/2023 12:37 PM) Result Value WORKSTATION ID [id number] Impression Advanced osteomyelitis of the anterior RIGHT [...] who have questions please contact the health director of home care hospice that requested your imaging first. Assessment & Plan Osteomyelitis of anterior right [...] ppx: enoxparin - PCP: Yamile De Leon, MOLDED RUBBER GOODS CUTTER [phone] Misael Joaquin Pager #[phone] [facility] documented in this encounter ED Notes * Osorio Fairchlid PA - 11/19/2023 1:50 PM EDT ED [...] abx. She was then seen by an processing lead who removed all of her teeth on [...] week she was instructed to go to [facility] ER to see an oral surgeon. She [...] who have questions please contact the health director of home care hospice that requested your imaging first. Procedures Assessment and Plan: 58 y.o. female [...] dry socket after being evaluated at an [facility] care site. She had two additional antibiotics [...] 3.24) performed by Aparna Reed MD at [facility] MAIN OR PRO OPEN TREATMENT METATARSAL FRACTURE EACH Bilateral 09/16/2018 ORIF METATARSAL FX, EACH (WRVU 7.44) performed by Aparna Reed MD at [facility] MAIN OR PRO OPEN TREATMENT TARSOMETATARSAL JOINT DISLOCATION Right 09/16/2018 OPEN TREAMENT TARSOMETATARSAL JOINT DISLOCATION (WRVU 10.7) performed by Aparna Reed MD at [facility] MAIN OR PRO OPEN TX FRACTURE GREAT TOE/PHALANX/PHALANGES Right 09/16/2018 ORIF GREAT TOE (WRVU 7.44) performed by Aparna Reed MD at [facility] MAIN OR PRO PERCUT TREAT METATARSAL FX Left 09/16/2018 PERCUTANEOUS PINNING, METATARSAL FX, EA. (WRVU 3.6) performed by Aparna Reed MD at [facility] MAIN OR PRO PERCUT TREAT TAR-METATAR FOOT DISLOC Right 09/16/2018 PERCUTANEOUS PINNING, TARSOMETATARSAL JOINT DISLOCATION (WRVU 5.09) performed by Aparna Reed MD at [facility] MAIN OR SHOULDER ARTHROSCOPY Bilateral Medications: Scheduled [...] Moya MD, MPH Fellow, Infectious Disease Pager: [phone] Epic Chat 11/20/2023 Associated attestation - Juan [...] would be willing to assist, and her [id number] is nearby and available as well. She [...] surrogate would be surrogate decision maker per [place] surrogate decision making law. (Only good for 180 days) Any patient receiving care in [place] must abide by [place] law. The hierarchy for surrogate decision making [...] (i) The agent with financial power of corporate attorney or a conservator appointed in accordance [...] or living in a senior living (including now)?: No In the past 12 months has the [employer], gas, oil, or water [employer] threatened to shut off services in your [...] (in the winter) Home Address confirmed as: [address] [place] [address] Social & Family Supports: All names listed below confirmed with patient as current and correct Extended Emergency Contact Information Primary Emergency Contact: Taylor La Address: [address] [place] [address] of [place] Mobile Relation: Spouse Secondary Emergency [...] Yes ; Prescription Coverage: Yes Preferred Pharmacy: [facility] [address] [address] Status: Patient is a : No Primary Care Provider confirmed: Unknown None-goes to [facility] but is unsure of providers name Patient/Caregiver Goals of Treatment: to return home [place] once plan is determined. She doesnt want to hold a bed for someone else who may need it Potential Needs for Transition of Care: home health care, outpatient care Agency Referrals: I have met with the patient to: discuss discharge planning needs. provide the [facility], Office of Care Management letter from the Sewage Treatment Plant Operator pertaining to rehab referrals. provide a letter describing our affiliations within the [place] [facility] and educate about their right to choose where referrals are sent. provide a list of Home Health Agencies / Durable Medical Equipment vendors which serve their preferred geographic area. provided patient with [facility] Star Quality Rating handout. They have requested referrals to: [facility] [address] [place] [address] [place], [place] [address], [place] [address] [place] [address] or Note routed to a [employer] who will communicate referrals to facilities and [...] provided most of pt care. Please see HOME CARE LIAISON's note for further shift details. Additionally, Pt [...] La Age/Sex: 58 y.o. female ENT Attending: [facility] Day: 2 History of Present Illness [...] told earlier this week [facility]. Patient [...] 3.24) performed by Aparna Reed MD at [facility] MAIN OR PRO OPEN TREATMENT METATARSAL FRACTURE EACH Bilateral 09/16/2018 ORIF METATARSAL FX, EACH (WRVU 7.44) performed by Aparna Reed MD at [facility] MAIN OR PRO OPEN TREATMENT TARSOMETATARSAL JOINT DISLOCATION Right 09/16/2018 OPEN TREAMENT TARSOMETATARSAL JOINT DISLOCATION (WRVU 10.7) performed by Aparna Reed MD at [facility] MAIN OR PRO OPEN TX FRACTURE GREAT TOE/PHALANX/PHALANGES Right 09/16/2018 ORIF GREAT TOE (WRVU 7.44) performed by Aparna Reed MD at [facility] OR PRO PERCUT TREAT METATARSAL FX Left 09/16/2018 PERCUTANEOUS PINNING, METATARSAL FX, EA. (WRVU 3.6) performed by Aparna Reed MD at [facility] OR PRO PERCUT TREAT TAR-METATAR FOOT DISLOC Right 09/16/2018 PERCUTANEOUS PINNING, TARSOMETATARSAL JOINT DISLOCATION (WRVU 5.09) performed by Aparna Reed MD at [facility] MAIN OR SHOULDER ARTHROSCOPY Bilateral Medications & [...] Tape, occlusive adhesive Social History [place] in [place] [address] Social History Socioeconomic History Marital status: Spouse [...] on 11/19/23 Source Information Dariana Jane MD [facility] Ed Document History Procedures - Labs Recent [...] Jane MD, PGY4 11/20/2023 3:54 PM Pager #[phone] ENT Team Pager: [phone] documented in this encounter Plan of Treatment [...] Glucose, POC 154 65 - 199 mg/dL [facility] Comment: Supplemental ranges: <140 mg/dL before meals <180 mg/dL all other times of the day Blood 11/21/2023 11:2 7 AM EDT 11/21/2023 11:27 AM EDT Jeramie Rodriguez MD POINT OF CARE TEST ORDERABLES [facility] [place] [address] * POCT Glucose (11/21/2023 6:29 AM EDT) Pathologist [facility] Glucose, POC 120 65 - 199 mg/dL [facility] Comment: Supplemental ranges: <140 mg/dL before meals <180 mg/dL all other times of the day Blood 11/21/2023 6:29 AM EDT 11/21/2023 6:29 AM EDT Walt Sewell MD POINT OF CARE TEST O RDERABLES [facility] [place] [address] * Differential, Automated (11/21/2023 5:25 AM EDT) [facility] Neutrophil % 49.4 % [facility] Neutrophil Absolute 3.46 1.70 - 6.10 x10(3)/[facility] Lymph % 41.6 % [facility] Lymphocytes Abs 2.9 0.9 - 3.2 x10(3)/[facility] Monocyte % 7.1 % [facility] Monocyte Abs 0.5 0.3 - 0.9 x10(3)/[facility] Eos % 1.4 % [facility] Eosinophils Abs 0.1 0.0 - 0.4 x10(3)/[facility] Basophil % 0.4 % [facility] Baso Absolute 0.0 0.0 - 0.1 x10(3)/[facility] Immature Gran % 0.10 % [facility] Comment: Immature granulocytes(IG's)percentage and absolute count will include metamyelocytes, myelocytes, and promyelocytes. Blood smears from CBCs yielding IG's will be scanned manually for concordance. If this scan disagrees with the automated IG or if promyelocytes are noted, a manual differential will be performed. Immature Gran Absolute 0.01 0.00 - 0.04 x10(3)/[facility] Blood 11/21/2023 5:25 AM EDT 11/21/2023 5:32 AM EDT Narrative Resulting Agency Comment Spec In Lab Misael Joaquin MD HEMATOLOGY ORDERABLE S [facility] [place] [address] * (ABNORMAL) Hemogram (11/21/2023 5:25 AM EDT) White Blood Cell 7.0 4.0 - 9.5 x10(3)/mc L [facility] Red Blood Cell 3.67(L) 4.00 - 5.21 x10(6)/mc L [facility] Hemoglobin 11.5(L) 11.7 - 15.5 g/dL [facility] Hematocrit 34.7(L) 35.7 - 45.8 % [facility] Mean Cell Volume 94.6(H) 82.6 - 94.4 fL [facility] Mean Cell Hemoglobin 31.3 27.1 - 32.0 pg [facility] Mean Cell Hemoglobin Concentration 33.1 31.7 - 35.0 g/dL [facility] Platelet 247 145 - 357 x10(3)/mc L [facility] RDW Standard Deviation 43.3 37.0 - 46.0 fL [facility] RDW coefficient of variation 12.5 11.5 - 14.1 % [facility] Mean Platelet Volume 9.7 7.6 - 12.9 fL [facility] NRBC% auto 0.0 % [facility] NRBC Absolute 0.000 0.000 - 0.000 x10(3)/mc L [facility] Blood 11/21/2023 5:25 AM EDT 11/21/2023 5:32 AM EDT Narrative Resulting Agency Comment Spec In Lab Misael Joaquin MD HEMATOLOGY ORDERABLE S [facility] [place] [address] * (ABNORMAL) Basic Metabolic Panel (non-fasting) (11/21/2023 5:25 AM EDT) Glucose 113 65 - 199 mg/dL [facility] Comment:Diabetes: >=200 mg/d L plus symptoms Blood Urea Nitrogen 15 8 - 18 mg/dL [facility] Creatinine 0.93 0.70 - 1.20 mg/dL [facility] Sodium 143 135 - 145 mmol/L [facility] Potassium 3.6 3.5 - 5.0 mmol/L [facility] Comment: Please note: ??Patients with WBC >100,000 may have falsely elevated Potassium levels. ??For accurate Potassium quantification in these patients send serum separator tube (gold top) for subsequent determinations. ??Contact the Clinical Chemistry Laboratory if there are any questions. Chloride 111(H) 98 - 107 mmol/L [facility] Carbon Dioxide 22 22 - 31 mmol/L [facility] Anion Gap 10 5 - 15 mmol/L [facility] Calcium 8.4(L) 8.5 - 10.5 mg/dL [facility] Est Glomerular Filtration Rate 72 >=60 mL/min/1. 73 m?? [facility] Comment: This patient's estimated [...] Joaquin MD CHEMISTRY ORDERABLES Performing Organization Address City/[facility]/ZIP Co de Phone Number [facility] [place] [address] * POCT Glucose (11/20/2023 9:45 PM EDT) Glucose, POC 131 65 - 199 mg/dL [facility] Comment: Supplemental ranges: <140 mg/dL before meals <180 mg/dL all other times of the day Blood 11/20/2023 9:45 PM EDT 11/20/2023 9:45 PM EDT Walt Sewell MD POINT OF CARE TEST O RDERABLES Performing Organization Address [facility]/ZIP Co de Phone Number [facility] [place] [address] * POCT Glucose (11/20/2023 7:01 PM EDT) Glucose, POC 162 65 - 199 mg/dL [facility] Comment: Supplemental ranges: <140 mg/dL before meals <180 mg/dL all other times of the day Blood 11/20/2023 7:01 PM EDT 11/20/2023 7:01 PM EDT Walt Sewell MD POINT OF CARE TEST O JONY Performing Organization Address City/[facility]/ZIP Co de Phone Number [facility] [place] [address] * (ABNORMAL) POCT Glucose (11/20/2023 4:44 PM EDT) Glucose, POC 262(H) 65 - 199 mg/dL [facility] Comment: Supplemental ranges: <140 mg/dL before meals <180 mg/dL all other times of the day Blood 11/20/2023 4:44 PM EDT 11/20/2023 4:44 PM EDT Walt Sewell MD POINT OF CARE TEST O RDERABLES [facility] [place] [address] * ECHO COMPLETE (11/20/2023 4:03 PM EDT) Anatomical Region Laterality Modality Cardiac Other 11/20/2023 3:17 PM EDT Narrative 11/20/2023 4:13 PM EDT [address] [place] [address] ? Echocardiogram Report Name: ERICKSON LA Jessica ?Study Date: 11/20/2023 03:17 PM ? Patient Location: [id number] A : 1965 ? Height: 155 cm ? Account: [id number] Age: 58 yrs ? Weight: 70 kg Gender: Female ?BSA: 1.7 m2 Ordering Physician: WALT SEWELL Referring Physician: NONE Performed By: Kiana Andrade RDCS Reason For Study: Osteomyelitis Exam Location: [facility]. Interpretation Summary 1. Left ventricle is [...] No prior study available for comparison. Procedure Complete-[id number]. Satisfactory quality. Left Ventricle Left ventricle is [...] Note Michael Acharya MD - 11/20/2023 [address] [place] [address] Echocardiogram Report Name: ERICKSON LA Jessica Study Date: 403:17 PM Patient Location: [id number] : 1965 Height: 155 cm Account: [id number] Age: 58 yrs Weight: 70 kg Gender: Female BSA: 1.7 m2 Ordering Physician: WALT SEWELL Referring Physician: NONE Performed By: Kiana Andrade RDCS Reason For Study: Osteomyelitis Exam Location: [facility]. Interpretation Summary 1. Left ventricle is [...] No prior study available for comparison. Procedure Complete-[id number]. Satisfactory quality. Left Ventricle Left ventricle is [...] MD ECHO ORDERABLES * MRSA PCR Screen ([facility]/CGP/APD/[facility]H) (11/20/2023 12:27 PM EDT) MRSA PCR Negative Negative [facility] MRSA (Interp) Methicillin-resist ant Staphylococcus aureus (MRSA) is NOT DETECTED The MRSA target DNA sequences (mec and SCC) were not detected within the acceptable ranges using the Xpert MRSA NxG on the GeneXpert Dx System ([employer]). This suggests the absence of MRSA in the patient specimen submitted for testing. This test is cleared by the U.S. Food and Drug Administration for clinical use and its performance characteristics have been verified by the [facility] at [facility]. This result does not rule out the presence of any other organisms. Rare false negative results may occur if MRSA is present at low concentrations with much higher concentrations of other organisms including MRSE or S. aureus with an empty SCC cassette. [facility] Comment: [VERIFIED DATE]11.21.23 Verified By:Kathy Nation (Electronic Signature) Swab 11/20/2023 12:2 7 PM EDT 11/20/2023 2:35 PM EDT Comment:Swab pus/exudate fro m tooth hole Narrative Resulting Agency Comment Spec In Lab Walt Sewell MD MOLECULAR ORDERABLES [facility] [place] [address] * Blood culture (11/20/2023 11:49 AM EDT) Blood Culture No growth at 5 days. [facility] Blood STRUCTURE OF RIGHT HAND / Unknown 11/20/2023 11:49 AM EDT 11/20/2023 12:15 PM EDT Narrative Resulting Agency Comment Spec In Lab Walt Sewell MD MICROBIOLOGY - BLOOD ORDERABLES Performing Organization Address City/[facility]/ZIP Co de Phone Number [facility] [place] [address] * POCT Glucose (11/20/2023 11:36 AM EDT) Glucose, POC 132 65 - 199 mg/dL [facility] Comment: Supplemental ranges: <140 mg/dL before meals <180 mg/dL all other times of the day Blood 11/20/2023 11:3 6 AM EDT 11/20/2023 11:36 AM EDT Walt Sewell MD POINT OF CARE TEST O RDERABLES Performing Organization Address [facility] Co de Phone Number [facility] [place] [address] * Urine culture (11/20/2023 7:22 AM EDT) Pathologist [facility] Urine Culture No growth (Less than 1,000 cfu/ml). [facility] First Catch Urine 11/20/2023 7:22 AM EDT 11/20/2023 9:09 AM EDT Narrative Resulting Agency Comment Spec In Lab Sherri Esquivel MD MICROBIOLOGY - GENE RAL ORDERABLES Performing Organization Address City/[facility]/ZIP Co de Phone Number [facility] [place] [address] * (ABNORMAL) Urinalysis Microscopic Exam (11/20/2023 7:22 AM EDT) RBC, Urine >100(H) 0 - 4 /HPF [facility] WBC, Urine 25(H) 0 - 5 /HPF [facility] Squamous Epithelial Cells Raw Data, Urine 2 <=4 /HPF [facility] Hyaline Casts, Urine 2 0 - 2 /LPF [facility] First Catch Urine 11/20/2023 7:22 AM EDT 11/20/2023 7:54 AM EDT Narrative Resulting Agency Comment Spec In Lab Sherri Esquivel MD URINE ORDERABLES Performing Organization Address City/[facility]/ZIP Co de Phone Number [facility] [place] [address] * (ABNORMAL) Urinalysis with reflex Culture (11/20/2023 7:22 AM EDT) Glucose, Urine Dipstick Negative Negative mg/dL [facility] Protein, Urine Dipstick 30(A) Negative mg/dL [facility] Bilirubin, Urine Dipstick Negative Negative mg/dL [facility] Comment: Clinical correlation required for positive Urine Bilirubin results as false positive may occur with some drugs and drug related products. If a false positive is suspected a serum total bilirubin should be considered if clinically indicated. Urobilinogen, Urine Dipstick Normal Normal mg/dL [facility] pH, Urn (dipstick) 6.0 5.0 - 8.0 [facility] Blood, Urine Dipstick Large(A) Negative mg/dL [facility] Ketone, Urine Dipstick Negative Negative mg/dL [facility] Nitrite, Urine Dipstick Negative Negative [facility] Leukocytes, Urine Dipstick Small(A) Negative [facility] Appearance, Urine Dipstick Clear Clear [facility] Specific [place] Urine Automated 1.020 1.005 - 1.030 [facility] Color, Urine Dipstick [place](A) Yellow [facility] Reflex to Culture Yes [facility] First Catch Urine 11/20/2023 7:22 AM EDT 11/20/2023 7:54 AM EDT Narrative Resulting Agency Comment Spec In Lab Sherri Esquivel MD URINE ORDERABLES Performing Organization Address City/[facility]/ZIP Co de Phone Number [facility] [place] [address] * POCT Glucose (11/20/2023 6:21 AM EDT) Glucose, POC 100 65 - 199 mg/dL [facility] Comment: Supplemental ranges: <140 mg/dL before meals <180 mg/dL all other times of the day Blood 11/20/2023 6:21 AM EDT 11/20/2023 6:21 AM EDT Chiquita Azul MD POINT OF CARE TEST ORDERABLES Performing Organization Address City/[facility]/ZIP Co de Phone Number [facility] [place] [address] * POCT Glucose (11/20/2023 3:10 AM EDT) Glucose, POC 108 65 - 199 mg/dL [facility] Comment: Supplemental ranges: <140 mg/dL before meals <180 mg/dL all other times of the day Blood 11/20/2023 3:10 AM EDT 11/20/2023 3:10 AM EDT Chiquita Azul MD POINT OF CARE TEST ORDERABLES Performing Organization Address City/[facility]/ZIP Co de Phone Number [facility] [place] [address] * (ABNORMAL) Differential, Automated (11/20/2023 1:42 AM EDT) Neutrophil % 51.9 % [facility] Neutrophil Absolute 4.48 1.70 - 6.10 x10(3)/mc L [facility] Lymph % 38.6 % [facility] Lymphocytes Abs 3.3(H) 0.9 - 3.2 x10(3)/mc L [facility] Monocyte % 7.5 % [facility] Monocyte Abs 0.6 0.3 - 0.9 x10(3)/mc L [facility] Eos % 1.4 % [facility] Eosinophils Abs 0.1 0.0 - 0.4 x10(3)/ L [facility] Basophil % 0.3 % [facility] Baso Absolute 0.0 0.0 - 0.1 x10(3)/[facility] Immature Gran % 0.30 % [facility] Comment: Immature granulocytes(IG's)percentage and absolute count will include metamyelocytes, myelocytes, and promyelocytes. Blood smears from CBCs yielding IG's will be scanned manually for concordance. If this scan disagrees with the automated IG or if promyelocytes are noted, a manual differential will be performed. Immature Gran Absolute 0.03 0.00 - 0.04 x10(3)/[facility] Blood 11/20/2023 1:42 AM EDT 11/20/2023 1:48 AM EDT Narrative Resulting Agency Comment Spec In Lab Misael Joaquin MD HEMATOLOGY ORDERABLE S [facility] [place] [address] * (ABNORMAL) Hemogram (11/20/2023 1:42 AM EDT) White Blood Cell 8.6 4.0 - 9.5 x10(3)/ L [facility] Red Blood Cell 3.46(L) 4.00 - 5.21 x10(6)/ L [facility] Hemoglobin 10.9(L) 11.7 - 15.5 g/dL [facility] Hematocrit 32.8(L) 35.7 - 45.8 % [facility] Mean Cell Volume 94.8(H) 82.6 - 94.4 fL [facility] Mean Cell Hemoglobin 31.5 27.1 - 32.0 pg [facility] Mean Cell Hemoglobin Concentration 33.2 31.7 - 35.0 g/dL [facility] Platelet 260 145 - 357 x10(3)/[facility] RDW Standard Deviation 43.5 37.0 - 46.0 fL [facility] RDW coefficient of variation 12.5 11.5 - 14.1 % [facility] Mean Platelet Volume 9.9 7.6 - 12.9 [facility] NRBC% auto 0.0 % [facility] NRBC Absolute 0.000 0.000 - 0.000 x10(3)/mc L [facility] Blood 11/20/2023 1:42 AM EDT 11/20/2023 1:48 AM EDT Narrative Resulting Agency Comment Spec In Lab Misael Joaquin MD HEMATOLOGY ORDERABLE S [facility] [place] [address] * (ABNORMAL) Basic Metabolic Panel (non-fasting) (11/20/2023 1:42 AM EDT) Glucose 76 65 - 199 mg/dL [facility] Comment:Diabetes: >=200 mg/d L plus symptoms Blood Urea Nitrogen 12 8 - 18 mg/dL [facility] Creatinine 0.83 0.70 - 1.20 mg/dL [facility] Sodium 142 135 - 145 mmol/L [facility] Potassium 3.2(L) 3.5 - 5.0 mmol/L [facility] Comment: Please note: ??Patients with WBC >100,000 may have falsely elevated Potassium levels. ??For accurate Potassium quantification in these patients send serum separator tube (gold top) for subsequent determinations. ??Contact the Clinical Chemistry Laboratory if there are any questions. Chloride 113(H) 98 - 107 mmol/L [facility] Carbon Dioxide 18(L) 22 - 31 mmol/L [facility] Anion Gap 11 5 - 15 mmol/L [facility] Calcium 7.9(L) 8.5 - 10.5 mg/dL [facility] Comment:result rechecked-HN Est Glomerular Filtration Rate 83 >=60 mL/min/1. 73 m?? [facility] Comment: This patient's estimated [...] Joaquin MD CHEMISTRY ORDERABLES Performing Organization Address [facility]/ZIP Co de Phone Number [facility] [place] [address] * POCT Glucose (11/19/2023 7:19 PM EDT) Glucose, POC 92 65 - 199 mg/dL [facility] Comment: Supplemental ranges: <140 mg/dL before meals <180 mg/dL all other times of the day Blood 11/19/2023 7:19 PM EDT 11/19/2023 7:19 PM EDT Miguel Benson MD POINT OF CARE TEST O RDERABLES [facility] [place] [address] * (ABNORMAL) Anaerobic Culture (11/19/2023 4:43 PM EDT) Anaerobic Culture Many Parvimonas micra (Peptostreptoc occus micros)(A) [facility] Organism Parvimonas micra (Peptostreptoc occus micros)(A) [facility] Fluid TOPOGRAPHY UNKNOWN / Unknown 11/19/2023 4:43 PM EDT 11/19/2023 7:14 PM EDT Comment:Mandible Narrative Resulting Agency Comment Spec In Lab Dariana Jane MD MICROBIOLOGY - GENER AL ORDERABLES Performing Organization Address [facility] de Phone Number [facility] [place] [address] * (ABNORMAL) Abscess/Wound Aspirate Culture (11/19/2023 4:43 PM EDT) Abscess/Wound Aspirate Culture Moderate Streptococcus milleri, anginosis group Rare normal oropharyngeal shala (A) [facility] Gram Stain Many Neutrophils seen Rare Gram Positive Cocci seen (A) [facility] Organism Streptococcus milleri, anginosis group(A) [facility] Organism Gram Positive Cocci(A) [facility] Fluid TOPOGRAPHY UNKNOWN / Unknown 11/19/2023 4:43 PM EDT 11/19/2023 7:14 PM EDT Comment:Mandible Narrative Resulting Agency Comment Spec In Lab Dariana Jane MD MICROBIOLOGY - GENER AL ORDERABLES Performing Organization Address [facility] de Phone Number [facility] [place] [address] * CT Face w Contrast (11/19/2023 12:37 PM EDT) WORKSTATION ID [id number] RAD Anatomical Region Laterality Modality Head Computed [...] who have questions please contact the health director of home care hospice that requested your imaging first. ? Narrative [...] patients who have questions please contactthe health director of home care hospice that requested your imaging first. Titus South MD IMG CT ORDERABLES * Gold Tube HOLD (11/19/2023 11:15 AM EDT) Gold Hold Sample in lab. [facility] Blood Venous Draw / Unknown 11/19/2023 11:15 AM EDT 11/19/2023 11:26 AM EDT Osorio CARR CHEMISTRY ORDERABLES Performing Organization Address [facility]/ZIP Co de Phone Number [facility] [place] [address] * Blue Tube HOLD (11/19/2023 11:15 AM EDT) Blue Hold Sample in lab. [facility] Blood Venous Draw / Unknown 11/19/2023 11:15 AM EDT 11/19/2023 11:26 AM EDT Osorio CARR HEMATOLOGY ORDERABLE S Performing Organization Address City/[facility]/ZIP Co de Phone Number [facility] [place] [address] * (ABNORMAL) Differential, Automated (11/19/2023 11:15 AM EDT) Neutrophil % 74.6 % [facility] Neutrophil Absolute 11.11(H) 1.70 - 6.10 x10(3)/[facility] Lymph % 16.8 % [facility] Lymphocytes Abs 2.5 0.9 - 3.2 x10(3)/[facility] Monocyte % 7.0 % [facility] Monocyte Abs 1.0(H) 0.3 - 0.9 x10(3)/[facility] Eos % 0.9 % [facility] Eosinophils Abs 0.1 0.0 - 0.4 x10(3)/[facility] Basophil % 0.3 % [facility] Baso Absolute 0.0 0.0 - 0.1 x10(3)/[facility] Immature Gran % 0.40 % [facility] Comment: Immature granulocytes(IG's)percentage and absolute count will include metamyelocytes, myelocytes, and promyelocytes. Blood smears from CBCs yielding IG's will be scanned manually for concordance. If this scan disagrees with the automated IG or if promyelocytes are noted, a manual differential will be performed. Immature Gran Absolute 0.06(H) 0.00 - 0.04 x10(3)/[facility] Blood 11/19/2023 11:1 5 AM EDT 11/19/2023 11:25 AM EDT Narrative Resulting Agency Comment Spec In Lab Osorio CARR HEMATOLOGY ORDERABLE S [facility] [place] [address] * (ABNORMAL) Hemogram (11/19/2023 11:15 AM EDT) White Blood Cell 14.9(H) 4.0 - 9.5 x10(3)/[facility] Red Blood Cell 4.03 4.00 - 5.21 x10(6)/[facility] Hemoglobin 12.8 11.7 - 15.5 g/dL [facility] Hematocrit 38.7 35.7 - 45.8 % [facility] Mean Cell Volume 96.0(H) 82.6 - 94.4 fL [facility] Mean Cell Hemoglobin 31.8 27.1 - 32.0 pg [facility] Mean Cell Hemoglobin Concentration 33.1 31.7 - 35.0 g/dL [facility] Platelet 326 145 - 357 x10(3)/mc L [facility] RDW Standard Deviation 44.2 37.0 - 46.0 [facility] RDW coefficient of variation 12.5 11.5 - 14.1 % [facility] Mean Platelet Volume 10.0 7.6 - 12.9 [facility] NRBC% auto 0.0 % [facility] NRBC Absolute 0.000 0.000 - 0.000 x10(3)/mc L [facility] Blood 11/19/2023 11:1 5 AM EDT 11/19/2023 11:25 AM EDT Narrative Resulting Agency Comment Spec In Lab Osorio CARR HEMATOLOGY ORDERABLE S [facility] [place] [address] * (ABNORMAL) Basic Metabolic Panel (non-fasting) (11/19/2023 11:15 AM EDT) Glucose 140 65 - 199 mg/dL [facility] Comment:Diabetes: >=200 mg/d L plus symptoms Blood Urea Nitrogen 18 8 - 18 mg/dL [facility] Creatinine 0.90 0.70 - 1.20 mg/dL [facility] Sodium 143 135 - 145 mmol/L [facility] Potassium 3.8 3.5 - 5.0 mmol/L [facility] Comment: Please note: ??Patients with WBC >100,000 may have falsely elevated Potassium levels. ??For accurate Potassium quantification in these patients send serum separator tube (gold top) for subsequent determinations. ??Contact the Clinical Chemistry Laboratory if there are any questions. Chloride 111(H) 98 - 107 mmol/L [facility] Carbon Dioxide 20(L) 22 - 31 mmol/L [facility] Anion Gap 12 5 - 15 mmol/L [facility] Calcium 9.5 8.5 - 10.5 mg/dL [facility] Est Glomerular Filtration Rate 75 >=60 mL/min/1. 73 m?? [facility] Comment: This patient's estimated [...] Lab Titus South MD CHEMISTRY ORDERAB LES [facility] [place] [address] documented in this encounter Visit Diagnoses Diagnosis [...] over 4 Hours, Warning Vesicant/Irritant Medication Per emergency crew supervisor labeling, do not administer or Y-site with [...] over 0.5 Hours, Warning Vesicant/Irritant Medication Per emergency crew supervisor labeling, do not administer or Y-site with [...] over 4 Hours, Warning Vesicant/Irritant Medication Per emergency crew supervisor labeling, do not administer or Y-site with [...] Li RN)0534 (New Bag - Provider: Paulino iL RN)0934 (Stopped - Provider: Jamee Chi RN)1400 (Due) piperacillin-tazobactam (Zosyn) 4.5 g vial attach to sodium chloride 0.9% 100 mL Mini-Bag Plus (COMPLETED) 4.5 g, Intravenous, ONCE, 1 dose, On Thu11/19/23 at 1418, Administer over 0.5 Hours, Warning Vesicant/Irritant Medication Per emergency crew supervisor labeling, do not administer or Y-site with [...] Routine documented in this encounter Care Teams Roustabout Pusher Relationship Specialty Start Date End Date Unknown None PCP - General 11/20/23 11/30/23 documented as of this encounter
--- OUTSIDE RECORDS SUMMARY | 2024-06-08 15:13 | XMS_ITS | Encounter Summary ---
Author Organization [facility] Address [facility] [place] [address] Care Team Providers Care Retina Subspecialist Name Role Phone Yamile De Leon APRN Primary Care Provider [phone] Encounter Details Date Type Department Care Team (Late st Contact Info) Description 10/08/2018 Notes [place] [address] Mary Ellison PA [facility] DR ORTHOPAEDIC SURGERY [place] [id number] Social History Tobacco Use Types Packs/Day Years [...] NAME: Jenae La AGE: 53 y.o. MR#: [id number] DATE OF VISIT: 10/08/2018 CHIEF COMPLAINT: Hospital [...] other questions or concerns. [facility] Mary Ellison PA-C The above dictation was made with voice recogonition software documented in this encounter Plan of Treatment Not on file documented as of this encounter Visit Diagnoses Not on filedocumented in this encounter Care Teams Retina Subspecialist Relationship Specialty Start Date End Date Yamile De Leon APRN PCP - General Family Medicine 10/01/18 11/19/23 documented as of this encounter
--- OUTSIDE RECORDS SUMMARY | 2024-06-08 15:13 | XMS_ITS | Encounter Summary ---
Author Organization [facility] Address [facility] [place] [address] Care Team Providers Care Inspector Eyeglass Frames Name Role Phone Yamile De Leon APRN Primary Care Provider [phone] Reason for Visit * Reason Comments Medication Refill Encounter Details Date Type Department Care Team (Late st Contact Info) Description 07/13/2022 Refill Dermatology at [facility] [address] [place] [address] Charlie Bowser MD [facility] DR [facility] [address] Prurigo nodularis Social History Tobacco Use Types [...] chronicus documented in this encounter Care Teams Inspector Eyeglass Frames Relationship Specialty Start Date End Date Yamile De Leon APRN PCP - General Family Medicine 10/01/18 11/19/23 documented as of this encounter
--- OUTSIDE RECORDS SUMMARY | 2024-06-08 15:13 | XMS_ITS | Encounter Summary ---
Author Organization [facility] Address [facility] [place] [address] Care Team Providers Care Knitting Tester Name Role Phone Yamile De Leon APRN Primary Care Provider Encounter Details Date Type Department Care Team (Late st Contact Info) Description 01/27/2019 6:20 PM EDT Ancillary Procedure Radiology Library at [facility] [place] [address] Aparna Reed MD [facility] [place] [address] Social History Tobacco Use Types Packs/Day Years [...] IMG FILM LIBRARY ORD ERABLES DH RAD [place], [place] documented in this encounter Visit Diagnoses Not on filedocumented in this encounter Care Teams Knitting Tester Relationship Specialty Start Date End Date Yamile De Leon APRN PCP - General Family Medicine 10/01/18 11/19/23 documented as of this encounter
--- OUTSIDE RECORDS SUMMARY | 2024-06-08 15:13 | XMS_ITS | Encounter Summary ---
Author Organization [facility] Address [facility] [place] [address] Care Team Providers Care Shell Assembler Name Role Phone Yamile De Leon APRN Primary Care Provider [phone] Encounter Details Date Type Department Care Team (Late st Contact Info) Description 12/20/2018 Ancillary Procedure Radiology Library at [facility] [place] [address] Aparna Reed MD [facility] DR [facility]THOP[facility] [place] [address] Social History Tobacco Use Types Packs/Day Years [...] MD IMG FILM LIBRARY ORD ERABLES DH [place], [place] documented in this encounter Visit Diagnoses Not on filedocumented in this encounter Care Teams Shell Assembler Relationship Specialty Start Date End Date Yamile De Leon APRN PCP - General Family Medicine 10/01/18 11/19/23 documented as of this encounter
--- OUTSIDE RECORDS SUMMARY | 2024-06-08 15:13 | XMS_ITS | Encounter Summary ---
Author Organization [facility] [place] [address] Care Team Providers Care Electrical Intern Name Role Phone Yamile De Leon APRN Primary Care Provider Reason for Visit * Reason Onset Date Comments Other 02/03/2019 Home Health Encounter Details Date Type Department Care Team (Late st Contact Info) Description 02/03/2019 Telephone [place] [phone] Crista Warner RN Other (Home Health) Social [...] signed by provider and faxed back to [facility] ( ). Form in Scan Doc. documented in this encounter Plan of Treatment Not on file documented as of this encounter Visit Diagnoses Not on filedocumented in this encounter Care Teams Electrical Intern Relationship Specialty Start Date End Date Yamile De Leon APRN PCP - General Family Medicine 10/01/18 11/19/23 documented as of this encounter
--- OUTSIDE RECORDS SUMMARY | 2024-06-08 15:13 | XMS_ITS | Encounter Summary ---
Author Organization [facility] [place] [address] Care Team Providers Care Sail Finisher Hand Name Role Phone Yamile De Leon CARLOS Primary Care Provider [phone] Reason for Referral * Consultation (Routine) - Closed Specialty Diagnoses / Procedures Referred By Bruce t Referred To Contact Dermatology Diagnoses Breast lesion Whitney Vanegas PA [address] [place] [address] [facility] Dermatology [address] [place] [address] Referral ID Status Reason Start Date Expiration Date V isits Requested Visits Authorized [id number] Closed Consult, Test & Treat PCP Updated and/or Approved 01/02/2022 01/02/2023 12 12 Encounter Details Date Type Department Care Team (Late st Contact Info) Description 01/02/2022 Transcribe Orders eDH Incoming Referrals [phone] Whitney Vanegas PA [address] [place], [place] [address] Breast lesion Social History Tobacco Use Types [...] disorder documented in this encounter Care Teams Sail Finisher Hand Relationship Specialty Start Date End Date Yamile De Leon APRN PCP - General Family Medicine 10/01/18 11/19/23 documented as of this encounter
--- OUTSIDE RECORDS SUMMARY | 2024-06-08 15:13 | XMS_ITS | Encounter Summary ---
Author Organization [facility] Address [facility] [place] [address] Care Team Providers Care Sales Compensation Analyst Name Role Phone Yamile De Leon CARLOS Primary Care Provider [phone] Encounter Details Date Type Department Care Team (Latest Contact Info) Description 10/01/2018 8:59 AM EDT - 10/01/2018 11:59 PM EDT Hospital Encounter XRay at [address] [place] [address] Javad Urban MD [facility] [place] [address] S/P ORIF bilateral foot fractures, 09/16/18 (Gitajn) [...] the number below. ? Electronically signed by: Dileep Saunders [facility] ([phone]), at 10/01/2018 9:51 AM Narrative 10/01/2018 9:51 [...] contact the number below. Electronically signed by: Dileep Saunders [facility]([phone]), at 10/01/2018 9:51 AM Javad Urban MD IMG DX ORDERABLES documented in this encounter Visit Diagnoses Diagnosis S/P ORIF bilateral foot fractures, 09/16/18 (Gitajn) documented in this encounter Care Teams Sales Compensation Analyst Relationship Specialty Start Date End Date Yamile De Leon CARLOS PCP - General Family Medicine 10/01/18 11/19/23 documented as of this encounter
--- OUTSIDE RECORDS SUMMARY | 2024-06-08 15:13 | XMS_ITS | Encounter Summary ---
Author Organization [facility] Address [facility] [place] [address] Care Team Providers Care Header Boss Name Role Phone Yamile De Leon CARLOS Primary Care Provider [phone] Reason for Visit * Consultation (Routine) - Closed Specialty Diagnoses / Procedures Referred By Bruce galo Referred To Contact Dermatology Diagnoses Breast lesion Whitney Vanegas PA [address] [place] [address] [facility] Dermatology [address] [place] [address] Referral ID Status Reason Start Date Expiration Date V isits Requested Visits Authorized [id number] Closed Consult, Test & Treat PCP Updated and/or Approved 01/02/2022 01/02/2023 12 12 Encounter Details Date Type Department Care Team (Late st Contact Info) Description 06/24/2022 4:00 PM EST Office Visit Dermatology at [facility] [address] [place] [address] Charlie Bowser MD [facility] [place] [address] Prurigo nodularis (Primary Dx) Social History Tobacco [...] prurigo nodularis follow up []Note routed to medical unit secretary []Recall placed in scheduling system [x]Appointment scheduled at checkout Scribe attestation: TARI Felton has performed the documentation for this encounter in thepresence of and acting as a scribe for Charlie Bowser MD. I performed the above scribed service and agree with the accuracy of the documentation in this encounter. Reviewed and signed by: Charlie Bowser MD Dermatology [facility] Patient seen and evaluated with staff hris coordinator: Kirsten Lantigua MD Department of Dermatology [facility] * Kirsten Lantigua MD - 06/24/2022 4:00 [...] chronicus documented in this encounter Care Teams Header Boss Relationship Specialty Start Date End Date Yamile De Leon APRN PCP - General Family Medicine 10/01/18 11/19/23 documented as of this encounter
--- OUTSIDE RECORDS SUMMARY | 2024-06-08 15:13 | XMS_ITS | Encounter Summary ---
Author Organization [facility] [place] [address] Care Team Providers Care Business Analysis Specialist Name Role Phone Yamile De Leon APRN Primary Care Provider [phone] Encounter Details Date Type Department Care Team (Late st Contact Info) Description 10/08/2018 10:45 AM EDT Office [place] [address] Cast discomfort Social History Tobacco Use Types [...] aftercare documented in this encounter Care Teams Business Analysis Specialist Relationship Specialty Start Date End Date Yamile De Leon APRN PCP - General Family Medicine 10/01/18 11/19/23 documented as of this encounter
--- OUTSIDE RECORDS SUMMARY | 2024-06-08 15:13 | XMS_ITS | Encounter Summary ---
Author Organization [facility] Address [facility] [place] [address] Care Team Providers Care Legal Collector Name Role Phone Yamile De Leon APRN Primary Care Provider [phone] Reason for Visit * Reason Comments Follow Up Surgery ORIF bilat foot fx, DOS 09.16.18 Encounter Details Date Type Department Care Team (Late st Contact Info) Description 10/01/2018 11:00 AM EDT Office Visit Orthopaedics at [place] [phone] Mary Ellison PA [facility] DR ORTHOPAEDIC SURGERY [place] [phone] S/P ORIF bilateral foot fractures, 09/16/18 (Gitajn) [...] NAME: Jenae La AGE: 53 y.o. MR#: [id number] DATE OF VISIT: 10/01/2018 CHIEF COMPLAINT: Hospital [...] drenching night sweats. She has been using [place] for pain relief and using Lovenox for [...] (Gitajn) documented in this encounter Care Teams Legal Collector Relationship Specialty Start Date End Date Yamile De Leon APRN PCP - General Family Medicine 10/01/18 11/19/23 documented as of this encounter
--- OUTSIDE RECORDS SUMMARY | 2024-06-08 15:13 | XMS_ITS | Encounter Summary ---
[place] [address] Care Team Providers Care Stamp Press Operator Name Role Phone Yamile De Leon APRN Primary Care Provider [phone] Reason for Visit * Reason Onset Date Comments Medication Problem 10/12/2018 ? Lovenox dis continuation date Encounter Details Date Type Department Care Team (Late st Contact Info) Description 10/12/2018 [place] [phone] Daja Gregorio RN Medication Problem (? Lovenox [...] to be sent to Saniya Smith in [place], [place] Concerns communicated to LILLY Eden via In Basket. documented in this encounter Plan of Treatment Not on file documented as of this encounter Visit Diagnoses Not on filedocumented in this encounter Care Teams Stamp Press Operator Relationship Specialty Start Date End Date Yamile De Leon APRN PCP - General Family Medicine 10/01/18 11/19/23 documented as of this encounter
--- OUTSIDE RECORDS SUMMARY | 2024-06-08 15:13 | XMS_ITS | Encounter Summary ---
Author Organization [facility] Address [facility] [place] [address] Care Team Providers Care Pneumatic Deicer Inspector Name Role Phone Yamile De Leon APRN Primary Care Provider Reason for Visit * Reason Comments Foot Injury XR, ORIF Bilateral F oot Fx 09/16/18 (Lanettejrachael) Encounter Details Date Type Department Care Team (Late st Contact Info) Description 10/25/2018 11:30 AM EDT Office [place] [address] Aparna Reed MD [facility] [place] [address] S/P ORIF bilateral foot fractures, 09/16/18 (Kamilaajrachael) [...] intact. Alignment is maintained. Assessment and Plan- Jneae La is a 53 y.o. female who [...] (Brianna) documented in this encounter Care Teams Pneumatic Deicer Inspector Relationship Specialty Start Date End Date Yamile De Leon APRN PCP - General Family Medicine 10/01/18 11/19/23 documented as of this encounter
--- OUTSIDE RECORDS SUMMARY | 2024-06-08 15:14 | XMS_ITS | Encounter Summary ---
Author Organization [facility] Address [facility] [place] [address] Care Team Providers Care Apartment Leasing Consultant Name Role Phone Unavailable Primary Care Provider Unavailabl e Encounter Details Date Type Department Care Team (Late st Contact Info) Description 09/12/2018 12:05 AM EDT Ancillary Procedure Radiology Library at [facility] [place] [phone] Aparna Reed MD [facility] [place] [address] Social History Tobacco Use Types Packs/Day Years [...]
--- OUTSIDE RECORDS SUMMARY | 2024-06-08 15:14 | XMS_ITS | Encounter Summary ---
Author Organization [facility] [place] [address] Care Team Providers Care Virtual Customer Assistant Name Role Phone None Primary Care Provider Unavailabl e Encounter Details Date Type Department Care Team (Late st Contact Info) Description 09/14/2018 Telephone [place] [phone] Josseline Macedo MD Social History Tobacco Use Types Packs/Day [...] center phone call from Dr. Florentino at [facility] regarding patient who is an inpatient there. [...] did have a head CT again w [facility] we do not have in our system but per report was negative. She does have abrasions on her head.Dr. Peña and orthopedic provider at [facility] reports that he has taken care of the patient on an outpatient basis and that she is now back to her baseline. Patient's past medical history is notable for COPD, LORRI on CPAP, diabetes on insulin, chronic opioid use currently on [place] per report, fibromyalgia Patient is not on [...] syncope vs seizure- on empiric keppra per [facility] neurology 2. PNA - per report CT [...] on filedocumented in this encounter Care Teams Virtual Customer Assistant Relationship Specialty Start Date End Date None None PCP - General 09/14/18 09/30/18 documented as of this encounter
--- OUTSIDE RECORDS SUMMARY | 2024-06-08 15:14 | XMS_ITS | Encounter Summary ---
Author Organization [facility] Address [facility] [place] [address] Care Team Providers Care Bridge Builder Name Role Phone None Primary Care Provider Unavailabl e Encounter Details Date Type Department Care Team (Latest Contact Info) Description 09/14/2018 2:45 PM EDT Ancillary Procedure Radiology Library at [facility] [place] [address] [facility] [place] [address] Multiple closed fractures of foot, initial encounter [...] Electronically signed by: Sheila Joaquin [facility] ([phone]), at 09/28/2018 4:31 PM --------ORIGINAL REPORT -------- [...] Electronically signed by: Sheila Joaquin [facility] ([phone]), at 09/14/2018 4:41 PM Impressions 09/14/2018 4:41 [...] Electronically signed by: Sheila Joaquin [facility] ([phone]), at 09/14/2018 4:41 PM Narrative 09/14/2018 4:41 [...] number below. Electronically signed by: TAMMIE Mackay [facility]([phone]), at 09/14/2018 4:41 PM Javad Urban MD IMG OUTSIDE [facility] TATION ORDERABLES documented in this encounter Visit Diagnoses Diagnosis Multiple closed fractures of foot, initial encounter documented in this encounter Care Teams Bridge Builder Relationship Specialty Start Date End Date None None PCP - General 09/14/18 09/30/18 documented as of this encounter
--- OUTSIDE RECORDS SUMMARY | 2024-06-08 15:14 | XMS_ITS | Encounter Summary ---
Author Organization [facility] [place] [address] Care Team Providers Care Emergency Services Dispatcher Name Role Phone Unavailable Primary Care Provider Unavailabl e Encounter Details Date Type Department Care Team (Late st Contact Info) Description 09/12/2018 Ancillary Procedure Radiology Library at [facility] [place] [address] Aparna Reed MD [facility] [place] [address] Social History Tobacco Use Types Packs/Day Years [...] Reed MD IMG FILM LIBRARY ORD ERABLES [place], [place] documented in this encounter Visit Diagnoses Not on filedocumented in this encounter
--- OUTSIDE RECORDS SUMMARY | 2024-06-08 15:14 | XMS_ITS | Encounter Summary ---
Author Organization [facility] Address [facility] [place] [address] Care Team Providers Care Digital Commentator Name Role Phone None Primary Care Provider Unavailabl e Reason for Visit * Auth/Cert Specialty Diagnoses / Procedures Referred By Contac t Referred To Contact Diagnoses Fracture of unspecified tarsal bone(s) of unspecified foot, initial encounter for closed fracture CLOSED HEAD INJURY, FOOT BONE FX'S -CONFUSED Procedures EMERGENCY IPI Referral ID Status Reason Start Date Expiration Date Visits Re quested Visits Authorized [id number] 1 1 Encounter Details Date Type Department Care Team (Late st Contact Info) Description 09/16/2018 10:16 AM EDT Anesthesia Event [place] [address] Ron Duong MD [facility] [place] [address] Chauncey Castro MD [facility] [place] [address] Anesthesia Record Procedure Summary Procedure Name Responsible [...] 1032; metacarpal vein (top of hand), left; nvay-vhp-cpkgtz catheter system; 20 gauge; Ron Duong; removed [...] Duong MD - 09/16/2018 4:11 PM EDT [facility] Department of Anesthesiology Post-procedure Note Patient: Jenae La Procedure Summary Date: 09/16/18 Room / Location: [facility] MAIN OR Anesthesia Start: 1016 Anesthesia Stop: [...] All Anesthesia Providers: Anesthesiologist: Ron Duong MD ATHLETIC SHOE DESIGNER: Lisa Birmingham CRNA Vitals Value Taken Time BP 135/75 09/16/2018 2:39 PM Temp 36.2 ??C (97.2 ??F) 09/16/2018 2:39 PM Pulse 61 09/16/2018 2:41 PM Resp 15 09/16/2018 2:41 PM SpO2 97 % 09/16/2018 2:56 PM Pain Level 9 09/16/2018 2:39 PM Vitals shown include unvalidated device data. Patient Location: PACU/[facility] Level of Consciousness: Awake and Alert Pain [...] Chlorhexidine Skin Anesthetic: Lidocaine 1% dose: 6 C-[id number]-elmjd 21 10 cm Ultrasound Guided: Live and [...] Single-shot BUpivacaine 0.25%, 40 mL no complications Resident/ATHLETIC SHOE DESIGNER:: Delvin Byrd MD Fellow:: Chauncey Castro MD [...] 12.0 09/15/2018 No results found for: TSH, D8TEVIX, TT4, THYROIDAB No results found for: HA1C Plan is for GA with ETT, standard ASA monitors, and adequate IV access. Bilateral pop-sciatic, saphenous nerve blocks for post op pain control Region - Other Informed Consent: Anesthetic plan and risks discussed with patient. Use of blood products discussed with patient who consented to blood products. Plan discussed with ATHLETIC SHOE DESIGNER and attending. PAT Clinic Note documented in [...] Performed by: Delvin Byrd MD Authorized by: Rno Duong MD Start Time: ??09/16/2018 9:00 AM [...] ??Chlorhexidine Skin Anesthetic: ??Lidocaine 1% dose: ??6 U-qgsdi-vgchq 21 10 cm Ultrasound Guided: ??Live and [...] BUpivacaine 0.25%, 40 mL no complications ?? Resident/ATHLETIC SHOE DESIGNER:: ??Delvin Byrd MD Fellow:: ??Chauncey Castro MD Attending Physician:: ??Ron Duong MD 20mL's each side Ron Duong MD GARBAGE COLLECTOR [facility] documented in this encounter Visit Diagnoses [...] mg documented in this encounter Care Teams Digital Commentator Relationship Specialty Start Date End Date None None PCP - General 09/14/18 09/30/18 documented as of this encounter
--- OUTSIDE RECORDS SUMMARY | 2024-06-08 15:14 | XMS_ITS | Encounter Summary ---
Author Organization [facility] Address [facility] [place] [address] Care Team Providers Care [employer] Professor Name Role Phone None Primary Care Provider Unavailabl e Reason for Visit * Auth/Cert Specialty Diagnoses / Procedures Referred By Contac t Referred To Contact Diagnoses Fracture of unspecified tarsal bone(s) of unspecified foot, initial encounter for closed fracture CLOSED HEAD INJURY, FOOT BONE FX'S -CONFUSED Procedures EMERGENCY IPI Referral ID Status Reason Start Date Expiration Date Visits Re quested Visits Authorized [id number] 1 1 Encounter Details Date Type Department Care Team (Late st Contact Info) Description 09/16/2018 9:58 AM EDT - 09/16/2018 12:57 PM EDT Surgery [place] [id number] Aparna Reed MD [facility] [place] [address] ORIF METATARSAL FX, EACH (WRVU 7.44) Social [...] Jenae La Patient Age: 53 y.o. Language: Liberian Race: White Ethnicity: Not nor Admit date: 09/14/2018 Discharge date and time: 09/20/2018 Attending Physician: Javad Urban MD Discharge Physician: Javad Urban MD Follow-up Recommendations for Providers: See discharge instructions for additional details. Future Appointments Date Time Provider Department Center 10/01/2018 10:00 AM [facility] DX ROOM 1 Xray [facility] Rad Clin 10/01/2018 11:00 AM Mary Ellison PA Leb Ortho 3C [facility] 11/08/2018 1:00 PM Abdirahman Enamorado MD Leb Neuro [facility] Inpatient Provider Contact Information: Javad Urban MD Orthopedics: [phone] After hours and weekends, call [facility] Band Log Mill And Carriage Operator, , and have the Orthopedic resident paged. [...] the orthopaedics service as a transfer from [facility] for operative management of bilateral [...] multiple times, leading her to present to [facility] on 09/12/2018 for evaluation. ?? Initial work-up at [facility] revealed sepsis secondary to suspected community- acquired pneumonia, mild acute exacerbation of COPD, a closed head injury with postconcussive syndrome, multiple bilateral foot fractures, and MANUEL, resulting in hospital admission. Upon presentation to the [facility] ED, her and herjake reported instances of [...] no active bleeding observed. General Surgery at [facility] evaluated the patient, and felt no further action was required besides outpatient follow up. ?? Upon arrival to [facility], Mrs. La reports moderate pain [...] Orthopedic Surgery Service as a transfer from [facility] for definitive operative management of bilateral complex [...] demonstrated seizure-like activity during her presentation at [facility], thus would recommend consulting Neurology to determine??the [...] a transfer to the orthopedic service from [facility] for bilateral complex foot fractures. ?? Patient [...] Discharge to: Home HOME HEALTH CARE AGENCY: ??[facility] ?? PHONE: [phone] FAX: [phone] Updated Allergies/ADRs: Allergies Allergen Reactions ??? Sulfa [...] bowel movement. You can also take an kxud-fqz-xxghjew medication, Miralax if needed to combat constipation. [...] skin and wound problems. Call your doctor ([phone]) if you develop: 1. Fever greater than [...] 1. You will have follow-up appointments at [facility] as indicated in Future Appointment and Orders. You will have an xray prior to those appointments so please come to Radiology, desk 3T, 1 hour BEFORE your appointment for those x-rays. Future Appointments Date Time Provider Department Center 10/01/2018 10:00 AM [facility] DX ROOM 1 [facility] 10/01/2018 11:00 AM Mary Ellison PA Leb Ortho 3C [facility] 11/08/2018 1:00 PM Abdirahman Enamorado MD Leb Neuro [facility] If you have questions or concerns: [...] Provider Department Dept Phone 10/01/2018 10:00 AM [facility] DX ROOM 1 XRay at [place] Arrive at: Social Organization Professor Area [phone] Please go to Social Organization Professor Area 3T ([place] Location). 10/01/2018 11:00 AM Mary Ellison PA Orthopaedics at [place] Arrive at: Social Organization Professor Area 3C [phone] 11/08/2018 1:00 PM Abdirahman Enamorado MD Neurology at [place] Arrive at: Social Organization Professor Area [phone] Future Orders Complete By Expires Durable Medical [...] Instructions: Scheduling Instructions: Comments: [address] [facility] [phone] (home) No relevant phone numbers on file. Diagnosis:Bilateral fractures both feet requiring surgery Non weight barring Patient's: Hgt: 5'1 Wgt: 183 VENDOR: [employer] Ordering: Drop arm commode needed ARABELLA is required for discharge Questions: Name/Description of requested item: Drop arm Commode Size requested: Standard Vendor Name/Contact information: [employer] Referral to Home Health - at DISCHARGE [[id number] CPT(R)] As directed Process Instructions: Scheduling Instructions: Comments: DOCUMENTATION FOR VNA SERVICES (INCLUDING THOSE PATIENTS WITH MEDICARE COVERAGE REQUIRING HOME VNA SERVICES AND/OR HOSPICE SERVICES) PATIENT'S LOCATION: [address] [facility] [address] (home) Cell: No relevant phone numbers on file. Yarn Sorter's Name: herself with 's assist In discussion with the attending physician, it is certified that this patient is under their care and that they, or a Nurse Practitioner,Clinical Nurse specialist or Physician Collection Analyst who is working directly with them, had [...] continue rehab for managing ADL's. Eval for VERIFICATION CLERK: HOME HEALTH CARE AGENCY: [facility] PHONE: [phone] FAX: [phone] Start of care: 09/21/18 FOR MEDICARE ONLY: [...] this patient's PCP: LILLY Gaitan [address] [facility] [address] All A agencies which cover the area of patient's residence have been reviewed, either verbally irasema writing, and patient/family have chosen the home health care agency noted Questions: Agency name and contact information: [facility] Patient location post discharge: home What [...] information: [facility] Primary Care Provider: LILLY Gaitan [phone] Discharge References/Attachments None documented in this encounter [...] bowel movement. You can also take an ngll-qlo-sczjzcz medication, Miralax if needed to combat constipation. [...] skin and wound problems. Call your doctor ([phone]) if you develop: 1. Fever greater than [...] 1. You will have follow-up appointments at [facility] as indicated in Future Appointment and Orders. You will have an xray prior to those appointments so please come to Radiology, desk 3T, 1 hour BEFORE your appointment for those x-rays. Future Appointments Date Time Provider Department Center 10/01/2018 10:00 AM [facility] DX ROOM 1 Xray Leb Rad [...] faxed, RN called report to A. * Ivetet Álvarez RN - 09/20/2018 1:10 PM EDT Office of Care Managment (OCM /Caremanger (CM)/ Discharge planning ) Service Ortho Pager # [phone] daily [facility] is unable to supply the commode and the slide board . This typewriter operator automatic called several places andfound slide board at [facility] and [facility] as well that is being serviced . [...] discharge planning. Ivette Álvarez RN CM Pager [phone] * Ivette Álvarez RN - 09/20/2018 12:52 PM EDT The patient/support representative has been provided a list of /DME vendors which serve their preferred geographic area. A letter describing our affiliations was reviewed with them and they were educated about their right to choose where referrals are placed. Patient requests referral to [facility] Expected date of discharge: 09/20/18 Referral routed to the Credit Assessment Analyst for matching with agency/vendor and to provide any required information. Ivette Álvarez [facility] Beeper #[phone] * Ivette Álvarez RN - 09/20/2018 11:14 [...] ) Thalia from [facility] is checking with [facility] office to make sure items are available for them. Plan: CM will continue to follow for coordination of care and to facilitate discharge planning. ? Ivette Álvarez RN CM Pager [phone] * Ori Santos MD - 09/20/2018 5:39 [...] Pain well controlled. Plan to discharge home [facility] per PT recommendations. Discharge likely today, dependent on DME delivery to [facility]'s home. Activity: NWB BLE. Strict elevation in splints. Closure: Sutures (remove 10-14 days) Dressing: DSD, splints. Drain: None Anticoagulation: Lovenox for 30 days Antibiotics: Empiric Ceftriaxone/Azithromycin for suspected CAP Consults: Medicine, Neuro Dispo: Like home today Follow-up: As scheduled Ori Santos MD 09/20/2018 Future Appointments Date Time Provider Department Center 10/01/2018 10:00 AM [facility] DX ROOM 1 Xray Leb Rad [...] with Med Team re pt DC today( [id number]). Pt to dc Thursday * Sanket Freeman [...] Time Provider Department Center 10/01/2018 10:00 AM [facility] DX ROOM 1 Xray Leb Rad Clin 10/01/2018 11:00 AM Mary Ellison PA Leb Ortho [address] [place] [address] CLIN Associated attestation - Aparna Reed MD [...] a transfer to the orthopedic service from [facility] for bilateral complex foot fractures. 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 Patient had [...] - PGY-3 General Neurology Consults Team Pager #[phone] 09/17/18 Associated attestation - Jose Swan MD - 09/17/2018 4:41 PM EDT I have seen and examined Jenae La with the neurology team on 09/17/2018 and agree with the assessment and plan as below. Face twitching. 53 Y F with history of DJD spine, DM, fibromyalgia being seen by Neurologist at [facility] Episodes of left sided facial twitching Stopped taking gabapentin recently due to side effects. Low suspicion for these being seizures. AEDs not needed at this time Recommended lower doses of gabapentin which she doesn't wish to take. Outpatient neurology followup Jose Swan MD Department of Neurology [facility] * Sanket Freeman MD - 09/17/2018 [...] Department of Orthopaedics 09/17/18 * Davin Ann, ASSEMBLER AND TESTER ELECTRONICS - 09/16/2018 11:22 PM EDT Pt refused [...] 09/16/2018 No future appointments. Associated attestation - Aprana Reed MD - 09/17/2018 6:13 AM EDT [...] note were not included. Patient Name: Jenae aL Patient Age: 53 y.o. Birthdate: 1965 Admit date: 09/14/2018 Attending Physician: Javad Urban MD .. Skin: * Aries Lyon MD - 09/16/2018 8:31 AM EDT Internal Medicine Consult Note (#[id number]) Progress Note Patient info: Name: Jenae La : 1965 PCP: LILLY Gaitan PCP phone number: [phone] Date of Admission: 09/14/2018 ( Hospital Day [...] Orthopedic Surgery Service as a transfer from [facility] for operative management of bilateral complex foot [...] ??? [Jul] acetaminophen 1,000 mg Oral [facility] ### ??? [Jul] levETIRAcetam 1 g [...] in the last 7068 hours. Invalid input(s): [id number] Heme: No results for input(s): LDH, HAPTOGLOBIN, URICACID in the last 168 hours. ABG: ABG (Arterial Blood Gas) No results found for: PHART, PO2ART, LAJ0DRH, NXZ2AMU Microbiology: Site Date and Time Obtained Result [...] Orthopedic Surgery Service as a transfer from [facility] for definitive operative management of bilateral complex [...] demonstrated seizure-like activity during her presentation at [facility], thus would recommend consulting Neurology to determine [...] Lyon MD, PGY-3 09/16/2018 Medicine Consult # [id number] Associated attestation - Chris Stahl DO - [...] today vs tomorrow pending scheduling availability. Appreciate [facility] medicine recs. - Neuro consult today - Remain NPO for possible OR today - UA today - NWB B/l LE - Pain control: Oral multimodal pain medication - Discharge planning: likely rehab per PT - F/u TBD Sanket Freeman MD PGY-2 Orthopaedics * Davin Ann, ASSEMBLER AND TESTER ELECTRONICS - 09/15/2018 11:00 PM EDT Pt had Nausea, NIV held this evening. * Kathrin Madsen RN - 09/15/2018 2:05 PM EDT Based on discussions with the multi-disciplinary healthcare team, the patient would benefit from snf/swing/acute level of care at discharge. ?? I have met with the patient/support representative to discuss discharge planning needs. I have provided the [facility], Office of Care Management letter from the Lightout Examiner pertaining to rehab referrals. I have also provided a letter describing our affiliations within the [facility] and educated them about their right to choose where referrals are placed. ?? I reviewed the different levels of rehab including SNF, swing, acute and LTAC with the patient/support representative. ?? The patient/support representative has been provided a list of facilities within their preferred geographic area. ?? I have requested that the patient/support representative provide at least three choices for referral. ?? The patient/support representative have requested referrals to: 2.[facility] [address] [place] [address] ?? [phone] 1. [facility] [address] [place] [address] ?? [phone] ?? Expected date of discharge: 09/17/18 Note routed to Credit Assessment Analyst who will communicate referrals to facilities and [...] % Laboratory: No results found for: PHART, UZE6PGR, PO2ART, MOB3QAU, BEART Assessment: Called to set pt up [...] Urban PCP: LILLY Gaitan PCP phone #: [phone] Chief Complaint: Foot pain History of Present Illness: Jenae La is a 53 y.o woman with HTN, HLD, Type II DM, LORRI on CPAP,fibromyalgia with chronic opioid use, and GERD who was admitted to the Orthopedic Surgery Service as a transfer from [facility] for operative management of bilateral complex foot fractures s/p trauma (dropping firewood on her feet) on the evening of 09/11/18 causing bilateral immediate pain, swelling, andbruising making it difficult to ambulate and leading to falls c/b striking her head multiple times.It was with these symptoms that she presented to [facility] on 09/12/18. During her initial presentation in the [facility] ED, the patient reported instances of trembling and fecal incontinence. She was noted to be confused with lip and unilateral arm twitching. CT head was negative. CT C-spine was negative. CTchest demonstrated 6.8mm ground glass nodule in the RUL and b/l ground glass opacities. An LP was performed for suspicion of meningitis that was reportedly negative, CSF cultures were reportedly negative. At [facility], she was found to have post-concussive syndrome [...] hours of admission. She was admitted to [facility] from 09/12/18 - 09/14/18. Upon arrival at [facility] on 09/15/18,the patient noted moderate [...] in the last 7068 hours. Invalid input(s): [id number] Heme: No results for input(s): LDH, HAPTOGLOBIN, [...] Orthopedic Surgery Service as a transfer from [facility] for definitive operative management of bilateral complex [...] demonstrated seizure-like activity during her presentation at [facility], thus would recommend consulting Neurology to determine [...] Internal Medicine, PGY- 3 Medicine Consult Pager #[phone] Associated attestation - Chris Stahl DO - [...] female who presented as a transfer from [facility] for operative management of the complex foot fractures due to trauma on 09/11/2018. Her hospital course at [facility] was complicated by an ICU admission due to community-acquired pneumonia, as well as possible focal seizures and postconcussive syndrome. Here at [facility] patient has been clinically stable [...] Internal Medicine 09/15/2018 3:25 PM * Noy Zamroa - 09/15/2018 6:27 AM EDT The patient's [...] the orthopaedics service as a transfer from [facility] for operative management of bilateral [...] multiple times, leading her to present to [facility] on 09/12/2018 for evaluation. Initial work-up at [facility] revealed sepsis secondary to suspected community- acquired pneumonia, mild acute exacerbation of COPD, a closed head injury with postconcussive syndrome, multiple bilateral foot fractures, and MANUEL, resulting in hospital admission. Upon presentation to the [facility] ED, her and cristian reported instances of [...] no active bleeding observed. General Surgery at [facility] evaluated the patient, and felt no further action was required besides outpatient follow up. Upon arrival to [facility], Mrs. La reports moderate pain [...] Situation: Lives with and multiple pets in [place], [place]. Review of Systems: As per HPI, [...] direct admit to the Orthopaedics service from [facility] for definitive management of bilateral complex foot [...] Order(s): EEG AWAKE, ASLEEP, DROWSY [facility] Department of Neurology Inpatient EEG Report Name of the Patient: Jenae La Date of : 1965 Date of Service: 09/17/2018 Referring physician: Dr. Abdirahman Enamorado BRIEF HISTORY: Jenae La is a 53 y.o. patient with episodes of tremors at home and witnessed facial and arm twitching at [facility] (witnessed by nursing). Also has hit head [...] channel digitized electroencephalogram was performed in the [facility] Clinical Neurophysiology Laboratory. The 10/20 international system of electrode placement was used and bipolar and referential electrode montages were recorded. In addition to EEG the patient was monitored for EKGand lateral/vertical eye movements. Video was recorded during the session. The duration of the recording was 30 minutes. WATER SOFTENER INSTALLER'S REPORT: Performed by: RR/CM Patient was not [...] Angel MD Clinical Neurophysiology Fellow Personal Pager #[phone] Epilepsy Neurology #[phone] Neurology Attending I have personally reviewed the EEG, and I agree with the details as written. The above report was formulated in discussion with me at the time of EEG reading, and I agree with it as documented. Jose Singer MD [place] [address] Pager: [phone], #[phone] Email: [email or web address] documented in this encounter [...] quit. She is not interested in receiving [facility] Tobacco Cessation packet. A: Pt refused consult. P: Encouraged patient to reach out to PCP for nicotine inhaler prescription. Dimitrios Valle, MSN, RN-, [facility] Tobacco Material Assembler [facility] Pager #[phone] * Plan of Care - Stacey Duenas [...] I have spoken with Thalia from the [place] office and she states shecannot get this DME on a Thu afternoon for Sat am but can do this for a Mon d/c. Pt states there jessy branch in [facility] that she has used in the past. Pt requests a referral to [facility] for an RN for skilled assessments, PT, OT, and steve for VERIFICATION CLERK. Pt requests Ofelia Barger if possible. I [...] NO xxx Lauren Perales, PT, DPT Pager: [phone] Inpatient Physical Therapy 2017 PT Evaluation Code [...] (Group);Wheelchair Training/Management (Group) Bed Mobility Assessment/Treatment Scoot/Bridge [place] (Bed Mobility) conditional independence Rzaare-el-Oej [place] (Bed Mobility) conditional independence Dbc-fa-Gxuztt [place] (Bed Mobility) conditional independence Safety Issues (Bed Mobility) decreased use of legs for bridging/pushing Impairments (Bed Mobility) pain;ROM (range of motion) decreased Comment (Bed Mobility) incr time/effort to/from EOB but no physical assistance, NWB maintained throughout, good SLR b/l LEs Transfer Assessment/Treatment Bed-Chair [place] (Transfers) supervision required;conditional independence (initial supervision progressing to ind) Ofv-Qxvkz-Fpm Assistive Device (Transfers) slide board [place] (Toilet Transfers) supervision required;conditional independence Assistive Device [...] with assist, home with home health(PT) Pager: [phone] Ori Bates OT 09/17/2018 Occupational Therapy Rehabilitation [...] pain;ROM (range of motion) decreased;strength decreased Scoot/Bridge [place] (Bed Mobility) conditional independence Fbwuvr-wm-Yzq [place] (Bed Mobility) conditional independence Pnr-pc-Rddrre [place] (Bed Mobility) conditional independence Comment (Bed Mobility) Pt performeed bed mobility w/ increased time and pain. Transfer Assessment/Treatment [place] (Toilet Transfers) supervision required;conditional independence Impairments (Transfers) pain;ROM (range of motion) decreased;strength decreased Iie-Uamvg-Gyp Assistive Device (Transfers) slide board Bed-Chair [place] (Transfers) supervision required;contact guard assist Comment (Transfers) [...] Body Dressing Assessment/Training Assistive Devices (LB Dressing) wax machine operator Position (LB Dressing) sitting [place] Level (LB Dressing) conditional independence Impairments (LB Dressing) pain;ROM (range of motion) decreased;strength decreased Comment (LB Dressing) Pt donned pants independently, w/ slight increase in time. Toileting Assessment/Training Position (Toileting) sitting [place] Level (Toileting) conditional independence Impairments (Toileting) ROM [...] a transfer to the orthopedic service from [facility] for bilateral complex foot fractures. Per discussion with the consulting provider, patient was initially admitted to [facility] for bilateral foot fractures. This was in the setting of multiple falls in the previous days leading up to her admission. She was also noted to strike her head multiple times during these falls. 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 Discussion with Jenae and her significant other about her initial presentation makes us less concerned for seizure activity. However, it is hard to say what the nurses at [facility] actually saw but they describe twitching of [...] - PGY-3 General Neurology Consults Team Pager #[phone] 09/16/18 Associated attestation - German Gu III, [...] as documented. German Gu III, MD Pager: [phone] 7:42 AM 09/17/2018 * Op Note - Aparna Reed MD - 09/16/2018 2:02 PM EDT [facility] Operative Note Patient Name: Jenae La : [id number] MR#: [id number] Case Date: 09/16/2018 Surgeon: Surgeon(s) and Role: [...] 2nd metatarsal fracture, left 3rd metatarsal fracture, [id number] metatarsal fracture, left cuboid fracture. Procedure(s) (LRB): [...] the second tarsometatarsal joint. We used a jcipj-lr-bcsks clamp to reduce it, and then fixed [...] the articular surface. We then used a [place] to bring the impacted articular surface down [...] Reed MD - 09/16/2018 1:54 PM EDT [facility] Operative Note- Left foot This patient underwent bilateral procedures. This operative note is for the left foot. Patient Name: Jenae La : [id number] MR#: [id number] Case Date: 09/16/2018 Surgeon: Surgeon(s) and Role: * Aparna Reed MD - Primary * oNy Zamora MD - Resident * Sanket Freeman [...] 2nd metatarsal fracture, left 3rd metatarsal fracture, vizw8wd metatarsal fracture, left cuboid fracture. ?? Procedure(s) [...] seen at [facility] and transferred to [facility] for further care. We discussed [...] third metatarsal fracture was exposed using a [place]. A wypbh-oj-ovjpl clamp was used to control the distal [...] toe extensors. Fracture was exposed using a [place]. A [id number] clamp was used to control the distal [...] Implant Name Type Inv. Item Serial No. Prosthodontist/Educator Lot No. LRB No. Used Action PIN,KWIRE,TROC 1 ED,NS,[id number] ([id number]) (AutoReq) - [id number] IMPLANTS PIN,KWIRE,TROC 1 ED,NS,[id number] ([id number]) (AutoReq) [facility] [place] [facility] [place]ed and Explanted SCREW,CRTX,STAP,T8,2.4X16MM ([id number]) - [id number] IMPLANTS SCREW,CRTX,STAP,T8,2.4X16MM ([id number]) [facility] [place] Im[place]ed SCREW,CRTX,STAP,T8,2.4X26MM ([id number]) - [id number] IMPLANTS SCREW,CRTX,STAP,T8,2.4X26MM ([id number]) [facility] [place] [facility] Im[place]ed SCREW,CRTX,STAP,T8,2.4X22MM ([id number]) - [id number] IMPLANTS SCREW,CRTX,STAP,T8,2.4X22MM ([id number]) [facility] [place] Im[place]ed SCREW,SLFTP,LCK,STAR,2.4X12MM ([id number]) - [id number] IMPLANTS SCREW,SLFTP,LCK,STAR,2.4X12MM ([id number]) [facility] [place] Implanted SCREW,LCK,STAP,STAR,2.4X6MM ([id number]) - [id number] IMPLANTS SCREW,LCK,STAP,STAR,2.4X6MM ([id number]) [facility] [place] Implanted SCREW,LCK,STAP,STAR,2.4X18MM ([id number]) - [id number] IMPLANTS SCREW,LCK,STAP,STAR,2.4X18MM ([id number])[facility] [place] Implanted SCREW,CRTX,STAP,STRDRV,2X9MM ([id number]) - [id number] IMPLANTS SCREW,CRTX,STAP,STRDRV,2X9MM ([id number])[facility] [place] Implanted SCREW,CRTX,STAP,STAR,2X24MM ([id number]) - [id number] IMPLANTS SCREW,CRTX,STAP,STAR,2X24MM ([id number]) [facility] [place] Wasted SCREW,CRTX,STAP,STAR,2X28MM ([id number]) - [id number] IMPLANTS SCREW,CRTX,STAP,STAR,2X28MM ([id number]) [facility] [place] Implanted SCREW,CRTX,STAP,STAR,2X18MM ([id number]) - [id number] IMPLANTS SCREW,CRTX,STAP,STAR,2X18MM ([id number]) [facility] [place] 1 Implanted SCREW,LCK,STAP,STAR,2X14MM (3610653) - [id number] IMPLANTS SCREW,LCK,STAP,STAR,2X14MM (3632984) [facility] [place] 1 Implanted SCREW,LCK,STAP,STAR,2X18MM ([id number]) - [id number] IMPLANTS SCREW,LCK,STAP,STAR,2X18MM (3243293) [facility] [place] 1 Implanted PLATE,LCP,7H,2.0X52MM (9515125) - [id number] IMPLANTS PLATE,LCP,7H,2.0X52MM ([id number]) [facility] Right 1 Implanted PLATE,CNDYLR,LCP,7H,2.4MM ([id number]) (AutoReq) - [id number] IMPLANTS PLATE,CNDYLR,LCP,7H,2.4MM ([id number]) (AutoReq) [facility] [place] Implanted BONE,CRUSHED,CANCELLOUS,10CC ([id number]) (AutoReq) - [id number] IMPLANTS BONE,CRUSHED,CANCELLOUS,10CC(6539960) (AutoReq) [facility] [id number] Right 1 Implanted PIN,KWIRE,TROC 1ED,NS,1T468FS ([id number]) - [id number] IMPLANTS PIN,KWIRE,TROC 1ED,NS,3K677PD ([id number]) [facility] [place] [facility] Implanted and Explanted PIN,KWIRE,PLAIN,2,0.022N5AI,NS ([id number]) - [id number] IMPLANTS PIN,KWIRE,PLAIN,2,0.340Y4HY,NS (3382406) [employer] [facility] [facility] Left 3 Implanted PLATE,LCP,CNDYLR,7H-SHFT,2MM ([id number]) - [id number] IMPLANTS PLATE,LCP,CNDYLR,7H-SHFT,2MM (1534434)[facility] [place] [facility] Implanted SCREW,LCK,STAP,STAR,2X12MM (4777946) - [id number] IMPLANTS SCREW,LCK,STAP,STAR,2X12MM (0161419) [facility] [place] 1 Implanted SCREW,LCK,STAP,STAR,2X10MM ([id number]) - [id number] IMPLANTS SCREW,LCK,STAP,STAR,2X10MM ([id number]) [facility] [place] 1 Implanted SCREW,CRTX,STAP,STAR,2X12MM ([id number]) - [id number] IMPLANTS SCREW,CRTX,STAP,STAR,2X12MM (4982662) [facility] [place] 1 Implanted SCREW,CRTX,STAP,STAR,2X14MM ([id number]) - [id number] IMPLANTS SCREW,CRTX,STAP,STAR,2X14MM (4577429) [facility] [place] 1 Implanted SCREW,CRTX,STAP,STAR,2X14MM (1658127) - [id number] IMPLANTS SCREW,CRTX,STAP,STAR,2X14MM ([id number]) [facility] [place] 1 Implanted SCREW,VA,LCK,SLFTP,T6,2X22MM ([id number]) - [id number] IMPLANTS SCREW,VA,LCK,SLFTP,T6,2X22MM (5087705)[employer] Right 1 Implanted SCREW,VA,LCK,SLFTP,T6,2X18MM ([id number]) - [id number] IMPLANTS SCREW,VA,LCK,SLFTP,T6,2X18MM ([id number])[employer] Right 1 Implanted SCREW,VA,LCK,SLFTP,T6,2X16MM ([id number]) - [id number] IMPLANTS SCREW,VA,LCK,SLFTP,T6,2X16MM ([id number])[facility] [place] 1 Implanted SCREW,CRTX,STAP,STAR,2X16MM ([id number]) - [id number] IMPLANTS SCREW,CRTX,STAP,STAR,2X16MM (5085624) [facility] [place] 1 Implanted SCREW,CRTX,STAP,STAR,2X12MM ([id number]) - [id number] IMPLANTS SCREW,CRTX,STAP,STAR,2X12MM ([id number]) [facility] [place] 1 Implanted SCREW,CRTX,STAP,STRDRV,2X10MM (0930536) - [id number] IMPLANTS SCREW,CRTX,STAP,STRDRV,2X10MM ([id number]) [facility] [place] 1 Implanted GUIDEW,THRD,1.1C045KM ([id number]) - [id number] IMPLANTS GUIDEW,THRD,1.0V995TG (5745759) [facility]; [facility] Right 3 Implanted Number of fracture regions: [...] or concerns. Lauren Perales, PT, DPT Pager: [phone] 09/16/18 Inpatient Rehabilitation Department * Plan of [...] up as able/appropriate. Ori Valencia OT Pager: [phone] * Initial Assessments - Kathrin Madsen RN [...] wyman Other: Primary Care Provider: LILLY Gaitan [phone] Patient/Caregiver Goals of Treatment: agreed to go [...] kind. She agrees to snf referrals, #1 [facility], [facility]. Referral submitted. Plan: snf vs swing vs acute. A member of the Care Management team will continue to monitor progress, follow for continuity of care and assist with transition of care planning. Kathrin Madsen RN Pager: [phone] * Plan of Care - Horace Beckman [...] Glucose, POC 139 65 - 199 mg/dL [facility] Comment: Supplemental ranges: <140 mg/dL before meals <180 mg/dL all other times of the day Blood specimen (specimen) 09/20/2018 11:29 AM EDT 09/20/2018 11:29 AM EDT Javad Urban MD POINT OF CARE TEST O RDERABLES [facility] [place] [address] * POCT Glucose (09/20/2018 8:02 AM EDT) Glucose, POC 167 65 - 199 mg/dL [facility] Comment: Supplemental ranges: <140 mg/dL before meals <180 mg/dL all other times of the day Blood specimen (specimen) 09/20/2018 8:02 AM EDT 09/20/2018 8:02 AM EDT Javad Urban MD POINT OF CARE TEST O JONY Performing Organization Address [facility]/ZIP Co de Phone Number [facility] [place] [address] * POCT Glucose (09/20/2018 4:03 AM EDT) Glucose, POC 127 65 - 199 mg/dL [facility] Comment: Supplemental ranges: <140 mg/dL before meals <180 mg/dL all other times of the day Blood specimen (specimen) 09/20/2018 4:03 AM EDT 09/20/2018 4:03 AM EDT Javad Urban MD POINT OF CARE TEST O JONY Performing Organization Address [facility] Co de Phone Number [facility] [place] [address] * POCT Glucose (09/19/2018 11:45 PM EDT) Glucose, POC 146 65 - 199 mg/dL [facility] Comment: Supplemental ranges: <140 mg/dL before meals <180 mg/dL all other times of the day Blood specimen (specimen) 09/19/2018 11:45 PM EDT 09/19/2018 11:45 PM EDT Javad Urban MD POINT OF CARE TEST O JONY Performing Organization Address [facility] Co de Phone Number [facility] [place] [address] * POCT Glucose (09/19/2018 7:26 PM EDT) Glucose, POC 149 65 - 199 mg/dL [facility] Comment: Supplemental ranges: <140 mg/dL before meals <180 mg/dL all other times of the day Blood specimen (specimen) 09/19/2018 7:26 PM EDT 09/19/2018 7:26 PM EDT Javad Urban MD POINT OF CARE TEST O RDERALISSETT Performing Organization Address City/[facility] Co de Phone Number [facility] [place] [address] * POCT Glucose (09/19/2018 4:14 PM EDT) Glucose, POC 144 65 - 199 mg/dL [facility] Comment: Supplemental ranges: <140 mg/dL before meals <180 mg/dL all other times of the day Blood specimen (specimen) 09/19/2018 4:14 PM EDT 09/19/2018 4:14 PM EDT Javad Urban MD POINT OF CARE TEST O RDERALISSETT Performing Organization Address [facility] Co de Phone Number [facility] [place] [address] * POCT Glucose (09/19/2018 11:28 AM EDT) Glucose, POC 170 65 - 199 mg/dL [facility] Comment: Supplemental ranges: <140 mg/dL before meals <180 mg/dL all other times of the day Blood specimen (specimen) 09/19/2018 11:28 AM EDT 09/19/2018 11:28 AM EDT Javad Urban MD POINT OF CARE TEST O RDERALISSETT Performing Organization Address City/[facility]/ZIP Co de Phone Number [facility] [place] [address] * POCT Glucose (09/19/2018 7:54 AM EDT) Glucose, POC 120 65 - 199 mg/dL [facility] Comment: Supplemental ranges: <140 mg/dL before meals <180 mg/dL all other times of the day Blood specimen (specimen) 09/19/2018 7:54 AM EDT 09/19/2018 7:54 AM EDT Javad rUban MD POINT OF CARE TEST O JONY Performing Organization Address [facility] Co de Phone Number [facility] [place] [address] * POCT Glucose (09/19/2018 3:42 AM EDT) Glucose, POC 105 65 - 199 mg/dL [facility] Comment: Supplemental ranges: <140 mg/dL before meals <180 mg/dL all other times of the day Blood specimen (specimen) 09/19/2018 3:42 AM EDT 09/19/2018 3:42 AM EDT Javad Urban MD POINT OF CARE TEST O JONY Performing Organization Address [facility] Co de Phone Number [facility] [place] [address] * Magnesium (09/19/2018 3:40 AM EDT) Magnesium 0.74 0.69 - 1.07 mmol/L [facility] Blood specimen (specimen) Venous Draw / Unknown 09/19/2018 3:40 AM EDT 09/19/2018 4:40 AM EDT Narrative Resulting Agency Comment Spec In Lab Buffy CARR CHEMISTRY ORDERAB LES Performing Organization Address [facility] Co de Phone Number [facility] [place] [address] * (ABNORMAL) Basic Metabolic Panel (non-fasting) (09/19/2018 3:40 AM EDT) Glucose 111 65 - 199 mg/dL [facility] Comment:Diabetes: >=200 mg/d L plus symptoms Blood Urea Nitrogen 11 8 - 18 mg/dL [facility] Creatinine 0.64(L) 0.70 - 1.20 mg/dL [facility] questions. Chloride 104 98 - 107 mmol/L [facility] Carbon Dioxide 27 22 - 31 mmol/L [facility] Anion Gap 9 5 - 15 mmol/L [facility] Calcium 8.9 8.5 - 10.5 mg/dL [facility] Est Glomerular Filtration Rate 103 >=60 mL/min/1. 73 m?? [facility] Comment: The eGFR was calculated using the CKD-EPI equation. As with all creatinine based estimates of kidney function, eGFR values calculated with the CKD-EPI equation are not accurate in patients with acute kidney failure, extremes of body mass or the acutely ill. [email or web address] eGFR 120 >=60 mL/min/1. 73 m?? [facility] Comment: The eGFR was calculated using the CKD-EPI equation. As with all creatinine based estimates of kidney function, eGFR values calculated with the CKD-EPI equation are not accurate in patients with acute kidney failure, extremes of body mass or the acutely ill. [email or web address] Blood specimen (specimen) 09/19/2018 3:40 AM EDT 09/19/2018 3:53 AM EDT Narrative Resulting Agency Comment Spec In Lab Trina Loo APRN CHEMISTRY ORDERABLE S [facility] [place] [address] * POCT Glucose (09/18/2018 11:20 PM EDT) Glucose, POC 150 65 - 199 mg/dL [facility] Comment: Supplemental ranges: <140 mg/dL before meals <180 mg/dL all other times of the day Blood specimen (specimen) 09/18/2018 11:20 PM EDT 09/18/2018 11:20 PM EDT Javad Urban MD POINT OF CARE TEST O RDERALISSETT Performing Organization Address City/[facility] Co de Phone Number [facility] [place] [address] * POCT Glucose (09/18/2018 7:57 PM EDT) Glucose, POC 103 65 - 199 mg/dL [facility] Comment: Supplemental ranges: <140 mg/dL before meals <180 mg/dL all other times of the day Blood specimen (specimen) 09/18/2018 7:57 PM EDT 09/18/2018 7:57 PM EDT Javad Urban MD POINT OF CARE TEST O JONY Performing Organization Address [facility] Co de Phone Number [facility] [place] [address] * POCT Glucose (09/18/2018 4:56 PM EDT) Glucose, POC 142 65 - 199 mg/dL [facility] Comment: Supplemental ranges: <140 mg/dL before meals <180 mg/dL all other times of the day Blood specimen (specimen) 09/18/2018 4:56 PM EDT 09/18/2018 4:56 PM EDT Javad Urban MD POINT OF CARE TEST O RDERALISSETT Performing Organization Address [facility] Co de Phone Number [facility] [place] [address] * POCT Glucose (09/18/2018 11:59 AM EDT) Glucose, POC 160 65 - 199 mg/dL [facility] Comment: Supplemental ranges: <140 mg/dL before meals <180 mg/dL all other times of the day Blood specimen (specimen) 09/18/2018 11:59 AM EDT 09/18/2018 11:59 AM EDT Javad Urban MD POINT OF CARE TEST O JONY Performing Organization Address [facility] Co de Phone Number [facility] [place] [address] * POCT Glucose (09/18/2018 7:55 AM EDT) Glucose, POC 126 65 - 199 mg/dL [facility] Comment: Supplemental ranges: <140 mg/dL before meals <180 mg/dL all other times of the day Blood specimen (specimen) 09/18/2018 7:55 AM EDT 09/18/2018 7:55 AM EDT Javad Urban MD POINT OF CARE TEST O JONY Performing Organization Address [facility] Co de Phone Number [facility] [place] [address] * POCT Glucose (09/18/2018 3:58 AM EDT) Glucose, POC 125 65 - 199 mg/dL [facility] Comment: Supplemental ranges: <140 mg/dL before meals <180 mg/dL all other times of the day Blood specimen (specimen) 09/18/2018 3:58 AM EDT 09/18/2018 3:58 AM EDT Javad Urban MD POINT OF CARE TEST O JONY Performing Organization Address [facility] Co de Phone Number [facility] [place] [address] * (ABNORMAL) Magnesium (09/18/2018 3:37 AM EDT) Magnesium 0.67(L) 0.69 - 1.07 mmol/L [facility] Blood specimen (specimen) Venous Draw / Unknown 09/18/2018 3:37 AM EDT 09/18/2018 4:55 AM EDT Narrative Resulting Agency Comment Spec In Lab Trina Loo CARLOS CHEMISTRY ORDERABLE S [facility] [place] [address] * (ABNORMAL) Basic Metabolic Panel (non-fasting) (09/18/2018 3:37 AM EDT) Glucose 106 65 - 199 mg/dL [facility] Comment:Diabetes: >=200 mg/d L plus symptoms Blood Urea Nitrogen 7(L) 8 - 18 mg/dL [facility] Creatinine 0.62(L) 0.70 - 1.20 mg/dL [facility] Sodium 143 135 - 145 mmol/L [facility] Potassium 3.1(L) 3.5 - 5.0 mmol/L [facility] Comment: Please note: ??Patients with WBC >100,000 may have falsely elevated Potassium levels. ??For accurate Potassium quantification in these patients send serum separator tube (gold top) for subsequent determinations. ??Contact the Clinical Chemistry Laboratory if there are any questions. Chloride 106 98 - 107 mmol/L [facility] Carbon Dioxide 26 22 - 31 mmol/L [facility] Anion Gap 11 5 - 15 mmol/L [facility] Calcium 8.5 8.5 - 10.5 mg/dL [facility] Est Glomerular Filtration Rate 104 >=60 mL/min/1. 73 m?? [facility] Comment: The eGFR was calculated using the CKD-EPI equation. As with all creatinine based estimates of kidney function, eGFR values calculated with the CKD-EPI equation are not accurate in patients with acute kidney failure, extremes of body mass or the acutely ill. [email or web address] eGFR 121 >=60 mL/min/1. 73 m?? [facility] Comment: The eGFR was calculated using the CKD-EPI equation. As with all creatinine based estimates of kidney function, eGFR values calculated with the CKD-EPI equation are not accurate in patients with acute kidney failure, extremes of body mass or the acutely ill. [email or web address] Blood specimen (specimen) 09/18/2018 3:37 AM EDT 09/18/2018 3:59 AM EDT Narrative Resulting Agency Comment Spec In Lab Trina Loo APRN CHEMISTRY ORDERABLE S Performing Organization Address [facility] Co de Phone Number [facility] [place] [address] * POCT Glucose (09/17/2018 11:33 PM EDT) Glucose, POC 145 65 - 199 mg/dL [facility] Comment: Supplemental ranges: <140 mg/dL before meals <180 mg/dL all other times of the day Blood specimen (specimen) 09/17/2018 11:33 PM EDT 09/17/2018 11:33 PM EDT Javad Urban MD POINT OF CARE TEST O RDERABLES Performing Organization Address [facility] Co de Phone Number [facility] [place] [address] * (ABNORMAL) POCT Glucose (09/17/2018 7:24 PM EDT) Glucose, POC 200(H) 65 - 199 mg/dL [facility] Comment: Supplemental ranges: <140 mg/dL before meals <180 mg/dL all other times of the day Blood specimen (specimen) 09/17/2018 7:24 PM EDT 09/17/2018 7:24 PM EDT Javad Urban MD POINT OF CARE TEST O RDERALISSETT Performing Organization Address [facility] Co de Phone Number [facility] [place] [address] * POCT Glucose (09/17/2018 3:16 PM EDT) Glucose, POC 180 65 - 199 mg/dL [facility] Comment: Supplemental ranges: <140 mg/dL before meals <180 mg/dL all other times of the day Blood specimen (specimen) 09/17/2018 3:16 PM EDT 09/17/2018 3:16 PM EDT Javad Urban MD POINT OF CARE TEST O JONY Performing Organization Address [facility] Co de Phone Number [facility] [place] [address] * POCT Glucose (09/17/2018 12:01 PM EDT) Glucose, POC 137 65 - 199 mg/dL [facility] Comment: Supplemental ranges: <140 mg/dL before meals <180 mg/dL all other times of the day Blood specimen (specimen) 09/17/2018 12:01 PM EDT 09/17/2018 12:01 PM EDT Javad Urban MD POINT OF CARE TEST O JONY Performing Organization Address [facility] de Phone Number [facility] [place] [address] * EEG awake, asleep, drowsy, routine (09/17/2018 9:30 AM EDT) Narrative Jose Singer MD - 09/17/2018 9:30 AM EDT Jose Singer MD ? 09/21/2018 10:14 AM [facility] Department of Neurology Inpatient EEG Report Name of the Patient: ??Jenae La Date of : ?1965 Date of Service: ?09/17/2018 Referring physician: ?Dr. Abdirahman Enamorado BRIEF HISTORY: Jenae La is a 53 y.o. patient with episodes of tremors at home and witnessed facial and arm twitching at [facility] (witnessed by nursing). Also has hit head [...] channel digitized electroencephalogram was performed in the [facility] Clinical Neurophysiology Laboratory. The 10/20 international system of electrode placement was used and bipolar and referential electrode montages were recorded. ??In addition to EEG the patient was monitored for EKG and lateral/vertical eye movements. Video was recorded during the session. The duration of the recording was 30 minutes. WATER SOFTENER INSTALLER'S REPORT:Performed by: RR/GERHARD Patient was not sleep [...] Angel MD Clinical Neurophysiology Fellow Personal Pager #[phone] Epilepsy Neurology #[id number] Neurology Attending I have personally reviewed the EEG, and I agree with the details as written. ?? The above report was formulated in discussion with me at the time of EEG reading, and I agree with it as documented. Jose Singer MD [place] [address] Pager: [phone], #[phone] Email: [email or web address] [place] Javad Urban MD NEUROLOGY ORDERABLES * (ABNORMAL) Basic Metabolic Panel (non-fasting) (09/17/2018 9:02 AM EDT) Glucose 121 65 - 199 mg/dL [facility] Comment:Diabetes: >=200 mg/d L plus symptoms Blood Urea Nitrogen 9 8 - 18 mg/dL [facility] Creatinine 0.59(L) 0.70 - 1.20 mg/dL [facility] Sodium 144 135 - 145 mmol/L [facility] Potassium 2.9(Criti toy) 3.5 - 5.0 mmol/L [facility] Comment: Called by: maged/sb, Read back by: Aruna Calvo, Date/Time:09/17/18 10:19. Please note: ??Patients with WBC >100,000 may have falsely elevated Potassium levels. ??For accurate Potassium quantification in these patients send serum separator tube (gold top) for subsequent determinations. ??Contact the Clinical Chemistry Laboratory if there are any questions. Chloride 108(H) 98 - 107 mmol/L [facility] Carbon Dioxide 25 22 - 31 mmol/L [facility] Anion Gap 11 5 - 15 mmol/L [facility] Calcium 8.0(L) 8.5 - 10.5 mg/dL [facility] Est Glomerular Filtration Rate 106 >=60 mL/min/1. 73 m?? [facility] Comment: The eGFR was calculated using the CKD-EPI equation. As with all creatinine based estimates of kidney function, eGFR values calculated with the CKD-EPI equation are not accurate in patients with acute kidney failure, extremes of body mass or the acutely ill. [email or web address] eGFR 123 >=60 mL/min/1. 73 m?? [facility] Comment: The eGFR was calculated using the CKD-EPI equation. As with all creatinine based estimates of kidney function, eGFR values calculated with the CKD-EPI equation are not accurate in patients with acute kidney failure, extremes of body mass or the acutely ill. [email or web address] Blood specimen (specimen) 09/17/2018 9:02 AM EDT 09/17/2018 9:17 AM EDT Narrative Resulting Agency Comment Spec In Lab Javad Urban MD CHEMISTRY ORDERABLES Performing Organization Address [facility]/ZIP Co de Phone Number [facility] [place] [address] * POCT Glucose (09/17/2018 7:33 AM EDT) Glucose, POC 136 65 - 199 mg/dL [facility] Comment: Supplemental ranges: <140 mg/dL before meals <180 mg/dL all other times of the day Blood specimen (specimen) 09/17/2018 7:33 AM EDT 09/17/2018 7:33 AM EDT Javad Urban MD POINT OF CARE TEST O RDERABLES Performing Organization Address [facility] Co de Phone Number [facility] [place] [address] * POCT Glucose (09/17/2018 3:29 AM EDT) Glucose, POC 126 65 - 199 mg/dL [facility] Comment: Supplemental ranges: <140 mg/dL before meals <180 mg/dL all other times of the day Blood specimen (specimen) 09/17/2018 3:29 AM EDT 09/17/2018 3:29 AM EDT Javad Urban MD POINT OF CARE TEST O RDSILVIO Performing Organization Address [facility] Co de Phone Number [facility] [place] [address] * POCT Glucose (09/16/2018 11:25 PM EDT) Glucose, POC 123 65 - 199 mg/dL [facility] Comment: Supplemental ranges: <140 mg/dL before meals <180 mg/dL all other times of the day Blood specimen (specimen) 09/16/2018 11:25 PM EDT 09/16/2018 11:25 PM EDT Javad Urban MD POINT OF CARE TEST O JONY Performing Organization Address [facility] Co de Phone Number [facility] [place] [address] * POCT Glucose (09/16/2018 8:29 PM EDT) Glucose, POC 114 65 - 199 mg/dL [facility] Comment: Supplemental ranges: <140 mg/dL before meals <180 mg/dL all other times of the day Blood specimen (specimen) 09/16/2018 8:29 PM EDT 09/16/2018 8:29 PM EDT Javad Urban MD POINT OF CARE TEST Rosie BORGES Performing Organization Address [facility] Co de Phone Number [facility] [place] [address] * POCT Glucose (09/16/2018 3:35 PM EDT) Glucose, POC 106 65 - 199 mg/dL [facility] Comment: Supplemental ranges: <140 mg/dL before meals <180 mg/dL all other times of the day Blood specimen (specimen) 09/16/2018 3:35 PM EDT 09/16/2018 3:35 PM EDT Javad Urban MD POINT OF CARE TEST Rosie BORGES Performing Organization Address [facility] Co de Phone Number [facility] [place] [address] * (ABNORMAL) Basic Metabolic Panel (non-fasting) (09/16/2018 3:33 PM EDT) Glucose 106 65 - 199 mg/dL [facility] Comment:Diabetes: >=200 mg/d L plus symptoms Blood Urea Nitrogen 13 8 - 18 mg/dL [facility] Creatinine 0.62(L) 0.70 - 1.20 mg/dL [facility] Sodium 147(H) 135 - 145 mmol/L [facility] Potassium 3.2(L) 3.5 - 5.0 mmol/L [facility] Comment: Please note: ??Patients with WBC >100,000 may have falsely elevated Potassium levels. ??For accurate Potassium quantification in these patients send serum separator tube (gold top) for subsequent determinations. ??Contact the Clinical Chemistry Laboratory if there are any questions. Chloride 112(H) 98 - 107 mmol/L [facility] Carbon Dioxide 22 22 - 31 mmol/L [facility] Anion Gap 13 5 - 15 mmol/L [facility] Calcium 8.1(L) 8.5 - 10.5 mg/dL [facility] Est Glomerular Filtration Rate 104 >=60 mL/min/1. 73 m?? [facility] Comment: The eGFR was calculated using the CKD-EPI equation. As with all creatinine based estimates of kidney function, eGFR values calculated with the CKD-EPI equation are not accurate in patients with acute kidney failure, extremes of body mass or the acutely ill. [email or web address] eGFR 121 >=60 mL/min/1. 73 m?? [facility] Comment: The eGFR was calculated using the CKD-EPI equation. As with all creatinine based estimates of kidney function, eGFR values calculated with the CKD-EPI equation are not accurate in patients with acute kidney failure, extremes of body mass or the acutely ill. [email or web address] Blood specimen (specimen) 09/16/2018 3:33 PM EDT 09/16/2018 3:49 PM EDT Narrative Resulting Agency Comment Spec In Lab Javad Urban MD CHEMISTRY ORDERABLES [facility] [place] [address] * Hemoglobin A1c (09/16/2018 3:33 PM EDT) Hemoglobin A1c 5.5 4.3 - 5.6 % [facility] Comment: Reference Range: 4.3 - [...] Mellitus, Diabetes Care 2013; 36: Suppl. 1, S67-49 Estimated Average Glucose 111 mg/dL [facility] Comment: eAG equivalents for HbA1c [...] into estimated average glucose values. ??Diabetes Care 2008:31(8):1137-9621. Blood specimen (specimen) 09/16/2018 3:33 PM EDT 09/16/2018 3:49 PM EDT Narrative Resulting Agency Comment Spec In Lab Javad Urban MD CHEMISTRY ORDERABLES [facility] [place] [address] * XR Foot Min 3 views Bilat [...] Glucose, POC 126 65 - 199 mg/dL [facility] Comment: Supplemental ranges: <140 mg/dL before meals <180 mg/dL all other times of the day Blood specimen (specimen) 09/16/2018 1:56 PM EDT 09/16/2018 1:56 PM EDT Javad Urban MD POINT OF CARE TEST O RDERABLES [facility] [place] [address] * XR Fluoro No Rad <1Hr - OR Use (09/16/2018 1:10 PM EDT) Narrative RAD - 09/16/2018 1:11 PM EDT This order does not need a radiologist interpretation. ?? Javad Urban MD IMG FLUORO ORDERABLE S Performing Organization Address [facility] Co de Phone Number [place], [place] * POCT Glucose (09/16/2018 7:46 AM EDT) Glucose, POC 131 65 - 199 mg/dL [facility] Comment: Supplemental ranges: <140 mg/dL before meals <180 mg/dL all other times of the day Blood specimen (specimen) 09/16/2018 7:46 AM EDT 09/16/2018 7:46 AM EDT Javad Urban MD POINT OF CARE TEST O RDERABLES Performing Organization Address [facility] Co de Phone Number [facility] [place] [address] * Urine Hold (09/16/2018 6:07 AM EDT) Hold, Urine Sample in lab. [facility] Urine specimen (specimen) Urine / Unknown 09/16/2018 6:07 AM EDT 09/16/2018 6:54 AM EDT Sanket Freeman MD URINE ORDERABLES Performing Organization Address [facility] Co de Phone Number [facility] [place] [address] * (ABNORMAL) Urinalysis with reflex Culture (09/16/2018 6:07 AM EDT) Glucose, Urine Dipstick Negative Negative mg/dL [facility] Protein, Urine Dipstick Negative Negative mg/dL [facility] Bilirubin, Urine Dipstick Negative Negative mg/dL [facility] Comment: Clinical correlation required for positive Urine Bilirubin results as false positive may occur with some drugs and drug related products. If a false positive is suspected a serum total bilirubin should be considered if clinically indicated. Urobilinogen, Urine Dipstick Normal Normal mg/dL [facility] pH, Urn (dipstick) 6.0 5.0 - 8.0 [facility] Blood, Urine Dipstick Negative Negative mg/dL [facility] Ketone, Urine Dipstick 5(A) Negative mg/dL [facility] Nitrite, Urine Dipstick Negative Negative [facility] Leukocytes, Urine Dipstick Negative Negative [facility] Appearance, Urine Dipstick Clear Clear [facility] Specific [place] Urine Automated 1.012 1.002 - 1.030 [facility] Color, Urine Dipstick Straw Yellow [facility] Reflex to Culture No [facility] Urine specimen (specimen) 09/16/2018 6:07 AM EDT 09/16/2018 6:52 AM EDT Narrative Resulting Agency Comment Spec In Lab Javad Urban MD URINE ORDERABLES Performing Organization Address [facility] Co de Phone Number [facility] [place] [address] * POCT Glucose (09/16/2018 3:30 AM EDT) Glucose, POC 126 65 - 199 mg/dL [facility] Comment: Supplemental ranges: <140 mg/dL before meals <180 mg/dL all other times of the day Blood specimen (specimen) 09/16/2018 3:30 AM EDT 09/16/2018 3:30 AM EDT Javad Urban MD POINT OF CARE TEST O RDERABLES Performing Organization Address [facility]/ZIP Co de Phone Number [facility] [place] [address] * POCT Glucose (09/15/2018 10:59 PM EDT) Glucose, POC 143 65 - 199 mg/dL [facility] Comment: Supplemental ranges: <140 mg/dL before meals <180 mg/dL all other times of the day Blood specimen (specimen) 09/15/2018 10:59 PM EDT 09/15/2018 10:59 PM EDT Javad Urban MD POINT OF CARE TEST O JONY Performing Organization Address [facility] Co de Phone Number [facility] [place] [address] * POCT Glucose (09/15/2018 8:10 PM EDT) Glucose, POC 100 65 - 199 mg/dL [facility] Comment: Supplemental ranges: <140 mg/dL before meals <180 mg/dL all other times of the day Blood specimen (specimen) 09/15/2018 8:10 PM EDT 09/15/2018 8:10 PM EDT Javad Urban MD POINT OF CARE TEST Rosie BORGES Performing Organization Address [facility] Co de Phone Number [facility] [place] [address] * POCT Glucose (09/15/2018 3:43 PM EDT) Glucose, POC 173 65 - 199 mg/dL [facility] Comment: Supplemental ranges: <140 mg/dL before meals <180 mg/dL all other times of the day Blood specimen (specimen) 09/15/2018 3:43 PM EDT 09/15/2018 3:43 PM EDT Javad Urban MD POINT OF CARE TEST O JONY Performing Organization Address [facility] Co de Phone Number [facility] [place] [address] * POCT Glucose (09/15/2018 12:05 PM EDT) Glucose, POC 177 65 - 199 mg/dL [facility] Comment: Supplemental ranges: <140 mg/dL before meals <180 mg/dL all other times of the day Blood specimen (specimen) 09/15/2018 12:05 PM EDT 09/15/2018 12:05 PM EDT Javad Urban MD POINT OF CARE TEST O JONY Performing Organization Address [facility] de Phone Number [facility] [place] [address] * (ABNORMAL) POCT Glucose (09/15/2018 7:39 AM EDT) Glucose, POC 206(H) 65 - 199 mg/dL [facility] Comment: Supplemental ranges: <140 mg/dL before meals <180 mg/dL all other times of the day Blood specimen (specimen) 09/15/2018 7:39 AM EDT 09/15/2018 7:39 AM EDT Javad Urban MD POINT OF CARE TEST O JONY Performing Organization Address [facility] de Phone Number [facility] [place] [address] * POCT Glucose (09/15/2018 4:12 AM EDT) Glucose, POC 141 65 - 199 mg/dL [facility] Comment: Supplemental ranges: <140 mg/dL before meals <180 mg/dL all other times of the day Blood specimen (specimen) 09/15/2018 4:12 AM EDT 09/15/2018 4:12 AM EDT Javad Urban MD POINT OF CARE TEST O JONY Performing Organization Address [facility] Co de Phone Number [facility] [place] [address] * ABORH Recheck Status (09/15/2018 3:44 AM EDT) ABORH Recheck Order Order Placed [facility] ABORH Type Recheck Complete [facility] Blood specimen (specimen) 09/15/2018 3:44 AM EDT 09/15/2018 3:59 AM EDT Narrative Resulting Agency Comment Spec In Lab Ori Santos MD BLOOD BANK LAB ORDER MADHAVI Performing Organization Address City/[facility]/ZIP Co de Phone Number [facility] [place] [address] * Antibody screen (09/15/2018 3:44 AM EDT) Ab Screen Interp Negative [facility] Expires at [id number] on: 09/18/2018 [facility] Blood specimen (specimen) 09/15/2018 3:44 AM EDT 09/15/2018 3:59 AM EDT Narrative Resulting Agency Comment Spec In Lab Ori Santos MD BLOOD BANK LAB ORDER MADHAVI Performing Organization Address City/[facility] Co de Phone Number [facility] [place] [address] * ABO/Rh Typing (09/15/2018 3:44 AM EDT) Pathologist [facility] ABORH Type A Pos [facility] Blood specimen (specimen) 09/15/2018 3:44 AM EDT 09/15/2018 3:59 AM EDT Narrative Resulting Agency Comment Spec In Lab Ori Santos MD BLOOD BANK LAB ORDER MADHAVI Performing Organization Address City/[facility]/ZIP Co de Phone Number [facility] [place] [address] * (ABNORMAL) Differential, Automated (09/15/2018 3:44 AM EDT) Neutrophil % 64.7 % [facility] Neutrophil Absolute 7.24(H) 1.70 - 6.10 x10(3)/mc L [facility] Lymph % 21.6 % [facility] Lymphocytes Abs 2.4 0.9 - 3.2 x10(3)/mc L [facility] Monocyte % 10.8 % [facility] Monocyte Abs 1.2(H) 0.3 - 0.9 x10(3)/[facility]OR[facility] Eos % 0.2 % [facility] Eosinophils Abs 0.0 0.0 - 0.4 x10(3)/[facility]OR[facility] Basophil % 0.4 % [facility] Baso Absolute 0.0 0.0 - 0.1 x10(3)/[facility] LABOR[facility] Immature Gran % 2.30 % [facility] Comment: Immature granulocytes(IG's)percentage and absolute count will include metamyelocytes, myelocytes, and promyelocytes. Blood smears from CBCs yielding IG's will be scanned manually for concordance. If this scan disagrees with the automated IG or if promyelocytes are noted, a manual differential will be performed. Immature Gran Absolute 0.26(H) 0.00 - 0.04 x10(3)/[facility] LABORAT[facility] Blood specimen (specimen) 09/15/2018 3:44 AM EDT 09/15/2018 4:18 AM EDT Narrative Resulting Agency Comment Spec In Lab Ori Santos MD HEMATOLOGY ORDERABLE S [facility] [place] [address] * (ABNORMAL) Hemogram (09/15/2018 3:44 AM EDT) White Blood Cell 11.2(H) 4.0 - 9.5 x10(3)/[facility] LAB[facility] Red Blood Cell 3.05(L) 4.00 - 5.21 x10(6)/[facility] Hemoglobin 9.6(L) 11.7 - 15.5 gm/dL [facility] Hematocrit 29.5(L) 35.7 - 45.8 % [facility] Mean Cell Volume 96.7(H) 82.6 - 94.4 fL [facility] Mean Cell Hemoglobin 31.5 27.1 - 32.0 pg [facility] Mean Cell Hemoglobin Concentration 32.5 31.7 - 35.0 gm/dL [facility] Platelet 244 145 - 357 x10(3)/mc L [facility] RDW Standard Deviation 50.8(H) 37.0 - 46.0 fL [facility] RDW coefficient of variation 14.3(H) 11.5 - 14.1 % [facility] Mean Platelet Volume 10.9 7.6 - 12.9 fL [facility] NRBC% auto 0.0 % [facility] NRBC Absolute 0.000 0.000 - 0.000 x10(3)/mc L [facility] Blood specimen (specimen) 09/15/2018 3:44 AM EDT 09/15/2018 4:18 AM EDT Narrative Resulting Agency Comment Spec In Lab Ori Santos MD HEMATOLOGY ORDERABLE S Performing Organization Address City/[facility]/ZIP Co de Phone Number [facility] [place] [address] * Prothrombin Time (09/15/2018 3:44 AM EDT) Prothrombin Time 12.0 9.4 - 12.5 sec [facility] International Normalization Ratio 1.0 [facility] Comment: [...] MD HEMATOLOGY ORDERABLE S Performing Organization Address City/[facility]/ZIP Co de Phone Number [facility] [place] [address] * (ABNORMAL) Basic Metabolic Panel (non-fasting) (09/15/2018 3:44 AM EDT) Glucose 135 65 - 199 mg/dL [facility] Comment:Diabetes: >=200 mg/d L plus symptoms Blood Urea Nitrogen 18 8 - 18 mg/dL [facility] Creatinine 0.74 0.70 - 1.20 [...] questions. Chloride 113(H) 98 - 107 mmol/L [facility] Carbon Dioxide 20(L) 22 - 31 mmol/L [facility] Anion Gap 9 5 - 15 mmol/L [facility] Calcium 7.9(L) 8.5 - 10.5 mg/dL [facility] Est Glomerular Filtration Rate 94 >=60 mL/min/1. 73 m?? [facility] Comment: The eGFR was calculated using the CKD-EPI equation. As with all creatinine based estimates of kidney function, eGFR values calculated with the CKD-EPI equation are not accurate in patients with acute kidney failure, extremes of body mass or the acutely ill. [email or web address] eGFR 109 >=60 mL/min/1. 73 m?? [facility] Comment: The eGFR was calculated using the CKD-EPI equation. As with all creatinine based estimates of kidney function, eGFR values calculated with the CKD-EPI equation are not accurate in patients with acute kidney failure, extremes of body mass or the acutely ill. [email or web address] Blood specimen (specimen) 09/15/2018 3:44 AM EDT 09/15/2018 4:18 AM EDT Narrative Resulting Agency Comment Spec In Lab Javad Urban MD CHEMISTRY ORDERABLES Performing Organization Address [facility] Co de Phone Number [facility] [place] [address] * POCT Glucose (09/14/2018 9:52 PM EDT) Glucose, POC 124 65 - 199 mg/dL [facility] Comment: Supplemental ranges: <140 mg/dL before meals <180 mg/dL all other times of the day Blood specimen (specimen) 09/14/2018 9:52 PM EDT 09/14/2018 9:52 PM EDT Javad Urban MD POINT OF CARE TEST O RDERABLES Performing Organization Address [facility] de Phone Number [facility] [place] [address] * Film Library- Storage Only MR Head (09/13/2018 12:10 AM EDT) Narrative [facility] - 09/15/2018 10:49 AM EDT This exam is auto-finalizing. It's purpose is for storage only. Javad Urban MD IMG FILM LIBRARY ORD ERABLES Performing Organization Address [facility] de Phone Number [place], [place] * Film Library- Storage Only Ultrasound Study (09/13/2018 12:05 AM EDT) Narrative [facility] - 09/15/2018 10:47 AM EDT This exam is auto-finalizing. It's purpose is for storage only. Javad CHIN FILM LIBRARY ORD ERABLES Performing Organization Address [facility] de Phone Number [place], [place] * Film Library- Storage Only DX Chest (09/13/2018 12:00 AM EDT) Narrative [facility] - 09/15/2018 10:46 AM EDT This exam is auto-finalizing. It's purpose is for storage only. Javad Urban MD IMG FILM LIBRARY ORD ERABLES [facility] [place], [place] documented in this encounter Visit Diagnoses [...] RN) [phone] (Given - Provider: Fely Freeman RN)[phone] (Given - Provider: Mai Bose, JULI) [email or web address] [...] Routine documented in this encounter Care Teams [employer] Professor Relationship Specialty Start Date End Date None None PCP - General 09/14/18 09/30/18 documented as of this encounter
--- OUTSIDE RECORDS SUMMARY | 2024-06-08 15:14 | XMS_ITS | Encounter Summary ---
Author Organization [facility] [place] [address] Care Team Providers Care Patternmaker Apprentice Wood Name Role Phone Unavailable Primary Care Provider Unavailabl e Encounter Details Date Type Department Care Team (Late st Contact Info) Description 09/13/2018 12:05 AM EDT Ancillary Procedure Radiology Library at [facility] [place] [phone] Social History Tobacco Use Types Packs/Day Years [...]
--- OUTSIDE RECORDS SUMMARY | 2024-06-08 15:14 | XMS_ITS | Encounter Summary ---
Author Organization [facility] [place] [address] Care Team Providers Care Rn Pediatric Icu Name Role Phone Unavailable Primary Care Provider Unavailabl e Encounter Details Date Type Department Care Team (Late st Contact Info) Description 09/13/2018 12:10 AM EDT Ancillary Procedure Radiology Library at [facility] [place] [phone] Social History Tobacco Use Types Packs/Day Years [...]
--- OUTSIDE RECORDS SUMMARY | 2024-06-08 15:14 | XMS_ITS | Encounter Summary ---
Author Organization [facility] [place] [address] Care Team Providers Care Screwdown Operator Name Role Phone Unavailable Primary Care Provider Unavailabl e Encounter Details Date Type Department Care Team (Late st Contact Info) Description 09/13/2018 Ancillary Procedure Radiology Library at [facility] [place] [phone] Social History Tobacco Use Types Packs/Day Years [...] Urban MD IMG FILM LIBRARY ORD ERABLES [facility] [place] documented in this encounter Visit Diagnoses Not on filedocumented in this encounter
--- OUTSIDE RECORDS SUMMARY | 2024-06-08 15:14 | XMS_ITS | Encounter Summary ---
[place] [address] Care Team Providers Care Informatics Analyst Name Role Phone Emma Miramontes APRN Primary Care Provider [phone] Reason for Visit * Reason Comments Skin Problem Encounter Details Date Type Department Care Team (Late st Contact Info) Description 09/24/2011 4:15 PM EDT Office Visit Dermatology [address] [place] [address] [address] [place] [address] Hammad Fields MD [address] [facility] [place] [address] Psoriasiform dermatitis (Primary Dx) Social History Tobacco [...] in consultation by Emma Miramontes from the [facility]. The patient states that her daughter [...] disorders documented in this encounter Care Teams Informatics Analyst Relationship Specialty Start Date End Date Emma Miramontes APRN PCP - General 04/16/10 12/10/17 documented as of this encounter
--- OUTSIDE RECORDS SUMMARY | 2024-06-08 15:14 | XMS_ITS | Encounter Summary ---
Author Organization [facility] [place] [address] Care Team Providers Care Warehouse Supervisor 3Rd Shift Name Role Phone None Primary Care Provider Unavailabl e Encounter Details Date Type Department Care Team (Late st Contact Info) Description 09/14/2018 [place] [address] Josseline Macedo MD Multiple closed fractures of left foot, initial [...] number below. Javad Urban MD IMG OUTSIDE INTERPRE TATION ORDERABLES documented in this encounter Visit Diagnoses Diagnosis Multiple closed fractures of left foot, initial encounter Multiple closed fractures of foot, initial encounter documented in this encounter Care Teams Warehouse Supervisor 3Rd Shift Relationship Specialty Start Date End Date None None PCP - General 09/14/18 09/30/18 documented as of this encounter
[2024-06-08 15:39] LABS: Anion Gap 8.4 mmol/L (3-11); BUN 13 mg/dL (7-18); CO2 25.6 mmol/L (21.0-32.0); CREATININE 1.1 mg/dL (0.55-1.02); Calcium 9.5 mg/dL (8.5-10.1); Chloride 108 mmol/L (98-107); Estimated GFR 58.97 (mL/min/1.73m2); Glucose 192 mg/dL (74-106); Potassium 4.1 mmol/L (3.5-5.1); Sodium 142 mmol/L (136-145)
== END 2024-06-08 15:05 | disposition home or self-care (01) ==
LOC: NCHCN 15:04
PROVIDERS: Visit Provider Physician Assistant Medical
DX: E11.9 Type 2 diabetes mellitus without complications (principal)
CPT/HCPCS: 80048

== ENCOUNTER 2024-06-15 16:03 | Outpatient (REF) | payer MEDICARE, MEDICAID, SELFPAY ==
--- OUTSIDE RECORDS SUMMARY | 2024-06-15 16:05 | XMS_ITS | Encounter Summary ---
Author Organization [facility] Address [address] [place] [address] Care Team Providers Care Drum Cleaner Name Role Phone Carlos Hyde MD Primary Care Provider [phone] Encounter Details Date Type Department Care Team (Late st Contact Info) Description 11/06/2017 Results Only [facility]- PRISM [phone] Carolyn Frerara, DO [address] [place] [address] Social History Tobacco Use Types [...] ? [place] ? Accession #: ? [id number] ? : ? 1965 (Age: 52) ??F [...] (ASCP) 11/09/2017 7:44 AM End of Report [facility] 11/06/2017 23:4 4 EDT 11/06/2017 23:44 EDT us Carolyn Ferrara DO PATHOLOGY ORDERABLES Final Res ult [facility] [address] [place] [address] documented in this encounter Visit Diagnoses Not on filedocumented in this encounter Care Teams Drum Cleaner Relationship Specialty Start Date End Date Carlos Hyde MD PCP - General 03/31/15 11/09/17 documented as of this encounter
--- OUTSIDE RECORDS SUMMARY | 2024-06-15 16:05 | XMS_ITS | Encounter Summary ---
Author Organization [facility] Address [address] [place] [address] Care Team Providers Care Sales Secretary Name Role Phone Una Dickinson Primary Care Provider + Encounter Details Date Type Department Care Team (Late st Contact Info) Description 10/05/2019 Lab Requisition [facility] Pathology & Laboratory Medicine - [facility] [address] [place], [place] [address] Outr Resulting Lab, Provider Social History Tobacco [...] and Giardia Antigen Neg 0 10:41 EDT [facility] Feces SPECIMEN FROM RECTUM / Unknown 10/04/2019 8:00 EDT 10/05/2019 16:55 EDT us Provider Outr Resulting Lab MICROBIOLOGY - GENER AL ORDERABLES Final Result Performing Organization Address [facility] Co de Phone Number [facility] [address] [place] [address] * OVA/PARASITE EXAM (10/04/2019 8:00 EDT) Parasite No ova and parasites seen. 10/06/2019 13:58 EDT [facility] Feces SPECIMEN FROM RECTUM / Unknown 10/04/2019 8:00 EDT 10/05/2019 16:55 EDT Narrative [facility] - 10/06/2019 13:58 EDT (If Cryptosporidium, Cyclospora, or Microsporidium are suspected, specific tests must be requested.) Single negative specimen does not rule out the possibility of a parasitic infection. us Provider Outr Resulting Lab MICROBIOLOGY - GENER AL ORDERABLES Final Result Performing Organization Address [facility] Co de Phone Number [facility] [address] [place] [address] documented in this encounter Visit Diagnoses Not on filedocumented in this encounter Care Teams Sales Secretary Relationship Specialty Start Date End Date Una Dickinson PA PCP - General 11/10/17 documented as of this encounter
--- OUTSIDE RECORDS SUMMARY | 2024-06-15 16:05 | XMS_ITS | Encounter Summary ---
Author Organization [facility] Address [address] [place] [address] Care Team Providers Care Carpet Floor Layer Apprentice Name Role Phone Una Dickinson Primary Care Provider + Encounter Details Date Type Department Care Team (Late st Contact Info) Description 10/06/2019 Lab Requisition [facility] Pathology & Laboratory Medicine - [facility] [address] [place], [place] [address] Outr Resulting Lab, Provider Social History Tobacco [...] difficile PCR Negative Negative 10/06/2019 14:43 EDT [facility] Feces SPECIMEN FROM RECTUM / Unknown 10/04/2019 8:00 EDT 10/06/2019 9:51 EDT us Provider Outr Resulting Lab MICROBIOLOGY - GENER AL ORDERABLES Final Result [facility] [address] [place] [address] documented in this encounter Visit Diagnoses Not on filedocumented in this encounter Care Teams Carpet Floor Layer Apprentice Relationship Specialty Start Date End Date Una Dickinson PA PCP - General 11/10/17 documented as of this encounter
--- OUTSIDE RECORDS SUMMARY | 2024-06-15 16:05 | XMS_ITS | Encounter Summary ---
Author Organization [facility] Address [address] [place] [address] Care Team Providers Care Computer Installer Name Role Phone Una Dickinson Primary Care Provider + Encounter Details Date Type Department Care Team (Late st Contact Info) Description 01/03/2021 Lab Requisition [facility] Pathology & Laboratory Medicine - [facility] [address] [place], [place] [address] Outr Resulting Lab, Provider Social History Tobacco [...] DETECTION, PCR Negative Negative 01/04/2021 11:[address] [facility] Comment:This test was maame alfredo and its performance characteristics determined by [facility]. It has not been cleared or approved [...] AL ORDERABLES Final Result Performing Organization Address City/[facility] Co de Phone Number [facility] [address] [place] [address] * HERPES SIMPLEX VIRUS MOLECULAR DETECTION, PCR (01/02/2021 11:15 EDT) Herpes Simplex Virus Molecular Detection 1, PCR Negative Negative 01/04/2021 11:[address] [facility] Herpes Simplex Virus Molecular Detection 2, PCR Negative Negative 01/04/2021 11:[address] [facility] Swab ENTIRE BUTTOCK / Unknown 01/02/2021 11:15 EDT 01/03/2021 17:26 EDT us Provider Outr Resulting Lab MICROBIOLOGY - GENER AL ORDERABLES Final Result Performing Organization Address City/[facility] Co de Phone Number [facility] [address] [place] [address] documented in this encounter Visit Diagnoses Not on filedocumented in this encounter Care Teams Computer Installer Relationship Specialty Start Date End Date Una Dickinson PA PCP - General 11/10/17 documented as of this encounter
--- OUTSIDE RECORDS SUMMARY | 2024-06-15 16:05 | XMS_ITS | Encounter Summary ---
Author Organization [facility] Address [address] [place] [address] Care Team Providers Care Slate Splitter Name Role Phone Una Dickinson Primary Care Provider + Encounter Details Date Type Department Care Team (Late st Contact Info) Description 05/28/2022 Lab Requisition [facility] Pathology & Laboratory Medicine - [facility] [address] [place], [place] [address] Outr Resulting Lab, Provider Social History Tobacco [...] Result (FLARES) Negative Negative 05/29/2022 22:01 EST [facility] FLU B RNA Result (FLBRES) Negative Negative 05/29/2022 22:01 EST [facility] RSV RNA Result (RSVRES) Negative Negative 05/29/2022 22:01 EST [facility] Swab ENTIRE NASOPHARYNX / Unknown 05/28/2022 11:00 EST 05/29/2022 17:48 EST us Provider Outr Resulting Lab MICROBIOLOGY - GENER AL ORDERABLES Final Result Performing Organization Address City/State/[facility] Co de Phone Number [facility] [address] [place] [address] documented in this encounter Visit Diagnoses Not on filedocumented in this encounter Care Teams Slate Splitter Relationship Specialty Start Date End Date Una Dickinson PA PCP - General 11/10/17 documented as of this encounter
--- OUTSIDE RECORDS SUMMARY | 2024-06-15 16:05 | XMS_ITS | Encounter Summary ---
Author Organization [facility] Address [address] [place] [address] Care Team Providers Care Endoscopic Technician Name Role Phone Carlos Hyde MD Primary Care Provider [phone] Encounter Details Date Type Department Care Team (Latest Contact Info) Description 11/06/2017 13:27 EDT - 11/06/2017 23:59 EDT Hospital Encounter [address] [address] Unknown, Provider, MD Discharge Disposition: Home or [...] Code Departure Means Destination Home or Self Nursing Home documented in this encounter Plan of Treatment Not on file documented as of this encounter Visit Diagnoses Not on filedocumented in this encounter Care Teams Endoscopic Technician Relationship Specialty Start Date End Date Carlos Hyde MD PCP - General 03/31/15 11/09/17 documented as of this encounter
--- OUTSIDE RECORDS SUMMARY | 2024-06-15 16:05 | XMS_ITS | Encounter Summary ---
Author Organization [facility] Address [address] [place] [address] Care Team Providers Care Prototype Fabricator Name Role Phone Unavailable Primary Care Provider Unavailabl e Encounter Details Date Type Department Care Team (Late st Contact Info) Description 05/02/2008 Before [facility] Converted Visit ([facility] conversion [address] [place] [address] Emma Zapata, MANAGER [facility] [address] [place], [place] [id number] Social History Tobacco Use Types Packs/Day Years [...] ? [place] ? Accession #: ? [id number] ? : ? 1965 (Age: 42) ??F [...] ??05/04/2008 13:52 ? End of Report ? [facility] 05/02/2008 05/03/2008 us Emma Zapata MANAGER [facility] PATHOLOGY ORDERABLES Final Resu lt RO [place] [address] [place] [address] documented in this encounter Visit Diagnoses Not on filedocumented in this encounter
--- OUTSIDE RECORDS SUMMARY | 2024-06-15 16:05 | XMS_ITS | Clinical Summary ---
Author Organization [facility] Address [address] [place] [address] Care Team Providers Care Buttoner Name Role Phone Una Dickinson Primary Care [...] Vaccine ( season) 2024 Insurance MEDICAID [place] [facility] Address: [address] [address] MEDICARE Care Teams Buttoner Relationship Specialty Start Date End Date Una Dickinson PA PCP - General 11/10/17
--- OUTSIDE RECORDS SUMMARY | 2024-06-15 16:05 | XMS_ITS | Encounter Summary ---
Author Organization [facility] Address [address] [place] [address] Care Team Providers Care Archeology Faculty Member Name Role Phone Una Dickinson Primary Care Provider + Encounter Details Date Type Department Care Team (Late st Contact Info) Description 10/12/2019 Lab Requisition [facility] Pathology & Laboratory Medicine - [facility] [address] [place], [place] [address] Outr Resulting Lab, Provider Social History Tobacco [...] 85 - 499 mg/dL 10/13/2019 10:53 EDT [facility] Blood VENOUS BLOOD / Unknown 10/11/2019 11:50 EDT 10/12/2019 15:42 EDT us Provider Outr Resulting Lab CHEMISTRY & BLOOD GA S ORDERABLES Final Result [facility] [address] [place] [address] documented in this encounter Visit Diagnoses Not on filedocumented in this encounter Care Teams Archeology Faculty Member Relationship Specialty Start Date End Date Una Dickinson PA PCP - General 11/10/17 documented as of this encounter
--- OUTSIDE RECORDS SUMMARY | 2024-06-15 16:05 | XMS_ITS | Encounter Summary ---
Author Organization [facility] Address [address] [place] [address] Care Team Providers Care Medical Service Representative Name Role Phone Una Dickinson Primary Care Provider + Encounter Details Date Type Department Care Team (Late st Contact Info) Description 06/06/2021 Lab Requisition [facility] Pathology & Laboratory Medicine - [facility] [address] [place] [address] Alejandra Norris PA-C [address] [place] [address] Encounter for other general examination [...] management options, if applicable. 06/10/2021 11:[address] [facility] Final Diagnosis A. SKIN OF BREAST, RIGHT, SUPERIOR/MEDIAL, BIOPSY: - Most suggestive of prurigo nodularis. See microscopic. B. SKIN OF BREAST, RIGHT, LATERAL, EXCISION: - Epidermal ulceration with dermal reactive change. See microscopic. 06/10/2021 11:19 [facility] Attestation By the signature below, the attending physician certifies that they have 1) personally conducted a gross and/or microscopic examination of the described specimen(s), and/or personally interpreted the results of laboratory testing of the described specimen(s), and 2) personally rendered or confirmed the above diagnosis. 06/10/2021 11:19 [facility] at [address] Microscopic Description Part [...] examined. Clinical correlation is recommended. 06/10/2021 11:19 [facility] Clinical History Skin lesions right breast 06/10/2021 11:19 [facility] Gross Description A. Received in [...] LILLY FARRAR(ASCP) 06/07/2021 7:46 06/10/2021 11:[address] [facility] Performing Lab [facility] 06/10/2021 11:[address] [facility] Scanned Images 06/10/2021 11:[address] [facility] Tissue TISSUE SPECIMEN FROM SKIN / Unknown 06/06/2021 15:15 EST 06/06/2021 23:44 EST Tissue specimen (specimen) SPECIMEN FROM SKIN / Unknown 06/06/2021 15:15 EST 06/06/2021 23:44 EST us Alejandra Norris PA-C PATHOLOGY ORDERABLES Final Result [facility] [address] [place] [address] documented in this encounter Visit Diagnoses Diagnosis Encounter for other general examination documented in this encounter Care Teams Medical Service Representative Relationship Specialty Start Date End Date Una Dickinson PA PCP - General 11/10/17 documented as of this encounter
--- OUTSIDE RECORDS SUMMARY | 2024-06-15 16:05 | XMS_ITS | Encounter Summary ---
Author Organization [facility] Address [address] [place] [address] Care Team Providers Care Certified Nutritionist Name Role Phone Una Dickinson Primary Care Provider + Encounter Details Date Type Department Care Team (Late st Contact Info) Description 10/05/2019 Lab Requisition [facility] Pathology & Laboratory Medicine - [facility] [address] [place], [place] [address] Outr Resulting Lab, Provider Social History Tobacco [...] Salmonella PCR Negative Negative 10/06/2019 12:12 EDT [facility] Shigella/Enteroin vasive E. coli Negative Negative 10/06/2019 12:12 EDT [facility] HN LAB CAMPYLOBACTER PCR Negative Negative 10/06/2019 12:12 EDT [facility] Shiga Toxin PCR Negative Negative 0 12:12 EDT [facility] Feces SPECIMEN FROM RECTUM / Unknown 10/04/2019 8:00 EDT 10/05/2019 16:56 EDT us Provider Outr Resulting Lab MICROBIOLOGY - GENER AL ORDERABLES Final Result [facility] [address] [place] [address] documented in this encounter Visit Diagnoses Not on filedocumented in this encounter Care Teams Certified Nutritionist Relationship Specialty Start Date End Date Una Dickinson PA PCP - General 11/10/17 documented as of this encounter
--- OUTSIDE RECORDS SUMMARY | 2024-06-15 16:05 | XMS_ITS | Encounter Summary ---
Author Organization [facility] Address [address] [place] [address] Care Team Providers Care Metal Patternmaker Apprentice Name Role Phone Una Dickinson Primary Care Provider + Encounter Details Date Type Department Care Team (Late st Contact Info) Description 09/28/2019 Lab Requisition [facility] Pathology & Laboratory Medicine - [facility] [address] [place], [place] [address] Outr Resulting Lab, Provider Social History Tobacco [...] Not Detected Not Detected 09/29/2019 15:[address] [facility] Comment: This test has not been [...] or revoked sooner. ??Factsheets for healthcare providers: ??https://www.fda.gov/media/161365/download Factsheets for patients: https://www.fda.gov/media/788089/download Negative results do not preclude infection with SARS-CoV-2 virus, and should not be the sole basis of a patient management decision. Swab ENTIRE NASOPHARYNX / Unknown 09/28/2019 14:15 EDT 09/28/2019 20:25 EDT us Provider Outr Resulting Lab MICROBIOLOGY - GENER AL ORDERABLES Final Result Performing Organization Address City/State/[facility] [[email or web address]] Co de Phone Number [facility] [address] [place] [address] * COVID-19 TESTING (09/28/2019 14:15 EDT) COVID-19 rt-PCR Result Not Detected Not Detected 09/29/2019 15:[address] [facility] Comment: This test has not been [...] or revoked sooner. ??Factsheets for healthcare providers: ??https://www.fda.gov/media/385219/download Factsheets for patients: https://www.fda.gov/media/446719/download Negative results do not preclude infection with SARS-CoV-2 virus, and should not be the sole basis of a patient management decision. Performing Lab [facility] 09/29/2019 15:37 EDT [facility] Swab ENTIRE NASOPHARYNX / Unknown 09/28/2019 14:15 EDT 09/28/2019 20:25 EDT us Provider Outr Resulting Lab MICROBIOLOGY - GENER AL ORDERABLES Final Result [facility] [address] LABORATORY [address] [place] [address] documented in this encounter Visit Diagnoses Not on filedocumented in this encounter Care Teams Metal Patternmaker Apprentice Relationship Specialty Start Date End Date Una Dickinson PA PCP - General 11/10/17 documented as of this encounter
--- OUTSIDE RECORDS SUMMARY | 2024-06-15 16:05 | XMS_ITS | Encounter Summary ---
Author Organization [facility] Address [address] [place] [address] Care Team Providers Care Dispatch Associate Name Role Phone Una Dickinson Primary Care Provider + Encounter Details Date Type Department Care Team (Late st Contact Info) Description 01/09/2021 Lab Requisition [facility] Pathology & Laboratory Medicine - [facility] [address] [place] [address] Outr Resulting Lab, Provider Social History Tobacco [...] IGA <1.2 <4.0 U/mL 01/14/2021 12:[address] [facility] Comment: A negative result may be due to IgA deficiency and does not rule out celiac disease. ? Negative: ??<4.0 U/mL ? Weak Positive: ??4.0 - 10.0 U/mL ? Positive: ??>10.0 U/mL Results were obtained with the [employer] App QUANTA Lite R h-tTG IgA DANYELLE assay on the [employer]Quest DSX. IgA 80(L) 85 - 499 mg/dL 01/14/2021 12:[address] [facility] Celiac Disease Interpretation Low total serum IgA. Recommend referral to gastroenterology specialist for additional evaluation. 01/14/2021 12:[address] [facility] Blood VENOUS BLOOD / Unknown 01/08/2021 12:10 EDT 01/09/2021 16:17 EDT us Provider Outr Resulting Lab IMMUNOLOGY AND SEROL OGY ORDERABLES Final Result Performing Organization Address City/State/[facility] Co de Phone Number [facility] [address] [place] [address] documented in this encounter Visit Diagnoses Not on filedocumented in this encounter Care Teams Dispatch Associate Relationship Specialty Start Date End Date Una Dickinson PA PCP - General 11/10/17 documented as of this encounter
--- OUTSIDE RECORDS SUMMARY | 2024-06-15 16:05 | XMS_ITS | Referral Summary ---
Author Organization [facility] Address [address] [place] [address] Care Team Providers Care Economic Research Assistant Name Role Phone Una Dickinson Primary [...] file Insurance MEDICAID [place] MEDICARE Care Teams Economic Research Assistant Relationship Specialty Start Date End Date Una Dickinson PA PCP - General 11/10/17
--- OUTSIDE RECORDS SUMMARY | 2024-06-15 16:06 | XMS_ITS | Encounter Summary ---
Author Organization [facility] [address] Care Team Providers Care Electrical Timing Device Calibrator Name Role Phone None Primary Care Provider Unavailabl e Reason for Visit * Consultation (Routine) - Closed Specialty Diagnoses / Procedures Referred By Contac t Referred To Contact Infectious Diseases Diagnoses Osteomyelitis, unspecified site, unspecified type Ernesto Rodriguez MD [facility] [place] [address] [facility] Infectious Dis [address] [place] [phone] Referral ID Status Reason Start Date Expiration Date V isits Requested Visits Authorized [id number] Closed Specialty Service Requested 11/21/2023 11/20/2024 1 1 Encounter Details Date Type Department Care Team (Late st Contact Info) Description 12/09/2023 1:00 PM EDT TH Visit (TeleHealth) [place] [phone] Alea Bailey APRN [facility] [place] [address] Osteomyelitis of mandible; 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; assisted current use of antibiotics Social History Tobacco Use Types Packs/Day Years Used Date Smoking Tobacco: Every Day Cigarettes 1 28 Smokeless Tobacco: Never Comments:Currently using kalia otine inhaler to help herself quit (11/08/18) Alcohol Use Standard Drinks/Week Comments Not Currently 0 (1 standard drink = 0.6 oz pur e alcohol) [facility] Utilities Answer Date Recorded In the [...] any time in the past 12 m [facility], were you homeless or living [...] this encounter Progress Notes * Alea Bailey, PRIMARY HEALTH ORGANISATION MANAGER - 12/09/2023 1:00 PM EDTSummary: ID OPAT [...] conditions of jaw 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
--- OUTSIDE RECORDS SUMMARY | 2024-06-15 16:06 | XMS_ITS | Encounter Summary ---
Author Organization [facility] Address [facility] [place] [address] Care Team Providers Care Car Top Bolter Name Role Phone Unknown Primary Care Provider Unavailabl e Encounter Details Date Type Department Care Team (Late st Contact Info) Description 11/24/2023 Telephone Max[place] [address] Andra Grady Social History Tobacco Use Types Packs/Day Years Used Date Smoking Tobacco: Every Day Cigarettes 1 Smokeless Tobacco: Never Comments:Currently using kalia otine inhaler to help herself quit (11/08/18) Alcohol Use Standard Drinks/Week Comments Not Currently 0 (1 standard drink = 0.6 oz pur e alcohol) [facility] Utilities Answer Date Recorded In the past 12 months has th e [employer] gas, oil, or water [employer] threatened to shut off services in your [...] on filedocumented in this encounter Care Teams Car Top Bolter Relationship Specialty Start Date End Date Unknown None PCP - General 11/20/23 11/30/23 documented as of this encounter
--- OUTSIDE RECORDS SUMMARY | 2024-06-15 16:06 | XMS_ITS | Encounter Summary ---
Author Organization [facility] Address [facility] [place] [address] Care Team Providers Care Aegis Console Operator Track Name Role Phone Unknown Primary Care Provider Unavailabl e Reason for Visit * Reason Onset Date Comments Follow-up 11/23/2023 F/U to schedule outpatient OPAT Encounter Details Date Type Department Care Team (Late st Contact Info) Description 11/23/2023 Telephone Infectious Disease at [facility] [place] [phone] Cindy Lizama, RN Follow-up (F/U to schedule outpatient OPAT) Social History Tobacco Use Types Packs/Day Years Used Date Smoking Tobacco: Every Day Cigarettes 1 28 Smokeless Tobacco: Never Comments:Currently using kalia otine inhaler to help herself quit (11/08/18) Alcohol Use Standard Drinks/Week Comments Not Currently 0 (1 standard drink = 0.6 oz pur e alcohol) [facility] Utilities Answer Date Recorded In the past 12 months has e [employer], gas, oil, or water [employer] threatened to shut off services in your [...] in a half-way (including now)? No 11/20/2023 DH IPV Inpatient [...] on filedocumented in this encounter Care Teams Aegis Console Operator Track Relationship Specialty Start Date End Date Unknown None PCP - General 11/20/23 11/30/23 documented as of this encounter
--- OUTSIDE RECORDS SUMMARY | 2024-06-15 16:06 | XMS_ITS | Encounter Summary ---
Author Organization [facility] Address [facility] [place] [address] Care Team Providers Care Mounting Inspector Name Role Phone None Primary Care Provider Unavailabl e Encounter Details Date Type Department Care Team (Late st Contact Info) Description 12/28/2023 Notes [place] [address] Cindy Lizama RN Social History Tobacco Use Types Packs/Day Years Used Date Smoking Tobacco: Every Day Cigarettes 1 28 Smokeless Tobacco: Never Comments:Currently using kalia otine inhaler to help herself quit (11/08/18) Alcohol Use Standard Drinks/Week Comments Not Currently 0 (1 standard drink = 0.6 oz pur e alcohol) [facility] Utilities Answer Date Recorded In the past [...] pt requests that her be called at [phone] as she does not have great service where she lives. documented in this encounter Plan of Treatment Not on file documented as of this encounter Visit Diagnoses Not on filedocumented in this encounter Care Teams Mounting Inspector Relationship Specialty Start Date End Date None None PCP - General 12/01/23 documented as of this encounter
--- OUTSIDE RECORDS SUMMARY | 2024-06-15 16:06 | XMS_ITS | Encounter Summary ---
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 Juan Yo MD [facility] [place] [address] [facility] [address] [place] [address] Referral ID Status Reason Start Date Expiration Date V isits Requested Visits Authorized [id number] Closed Assume Subset of Care 11/24/2023 11/23/2024 1 1 Encounter Details Date Type Department Care Team (Late st Contact Info) Description 11/23/2023 Orders [place] [phone] Juan Yo MD [facility] [place] [address] 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; residential current use of antibiotics Social History Tobacco [...] were you homeless or living in a skilled nursing (including now)? 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
--- OUTSIDE RECORDS SUMMARY | 2024-06-15 16:06 | XMS_ITS | Encounter Summary ---
Author Organization [facility] [place] [address] Care Team Providers Care Powered Bridge Specialist Name Role Phone None Primary Care Provider Unavailabl e Encounter Details Date Type Department Care Team (Late st Contact Info) Description 12/01/2023 3:44 PM EDT Anesthesia [place] [phone] Delvin Crystal MD Novak, Nathaniel, MD [facility] [place] [address] Anesthesia Record Procedure Summary Procedure Name Responsible [...] drink = 0.6 oz pur e alcohol) [facility] Utilities Answer Date Recorded In the past 12 months has [employer], gas, oil, or water [employer] threatened to shut off services in your [...] any time in the past 12 m [facility], were you homeless or living in a alf (including now)? No 11/20/2023 DH IPV Inpatient [...] Procedure Summary Date: 12/01/23 Room / Location: [address] MAIN OR Anesthesia Start: 1543 Anesthesia Stop: 1708 Procedure: EXCISION BENIGN TUMOR OR CYST, MANDIBLE (WRVU 4.91) (Midline: Face) Diagnosis: Osteomyelitis of other site, unspecified type (Erosive lesion of the mandible) Surgeons: Fidel Naranjo MD Responsible Provider: Delvin Crystal MD Anesthesia Type: general ASA Status: 3 All Anesthesia Providers: Anesthesiologist: Delvin Crystal MD Repair Manager: Kyler Prieto DO; Sudhir Canales MD [...] 3.24) performed by Aparna Reed MD at [facility] MAIN OR ??? PRO OPEN TREATMENT METATARSAL FRACTURE EACH Bilateral 09/16/2018 ORIF METATARSAL FX, EACH (WRVU 7.44) performed by Aparna Reed MD at [facility] MAIN OR ??? PRO OPEN TREATMENT TARSOMETATARSAL JOINT DISLOCATION Right 09/16/2018 OPEN TREAMENT TARSOMETATARSAL JOINT DISLOCATION (WRVU 10.7) performed by Aparna Reed MD at [facility] MAIN OR ??? PRO OPEN TX FRACTURE GREAT TOE/PHALANX/PHALANGES Right 09/16/2018 ORIF GREAT TOE (WRVU 7.44) performed by Aparna Reed MD at [facility] MAIN OR ??? PRO PERCUT TREAT METATARSAL FX Left 09/16/2018 PERCUTANEOUS PINNING, METATARSAL FX, EA. (WRVU 3.6) performed by Aparna Reed MD at [facility] MAIN OR ??? PRO PERCUT TREAT TAR-METATAR FOOT DISLOC Right 09/16/2018 PERCUTANEOUS PINNING, TARSOMETATARSAL JOINT DISLOCATION (WRVU 5.09) performed by Aparna Reed MD at [facility] MAIN OR ??? SHOULDER ARTHROSCOPY [...] Assessment: unlabored breathing Dental Assessment: (+) edentulous [facility] Assessment: IV access: Peripheral line Last Filed [...] mg documented in this encounter Care Teams Powered Bridge Specialist Relationship Specialty Start Date End Date None None PCP - General 12/01/23 documented as of this encounter
--- OUTSIDE RECORDS SUMMARY | 2024-06-15 16:06 | XMS_ITS | Encounter Summary ---
Author Organization [facility] [place] [address] Care Team Providers Care Aboriginal Liaison Officer Name Role Phone None Primary Care Provider Unavailabl e Encounter Details Date Type Department Care Team (Late st Contact Info) Description 12/24/2023 Telephone [place] [phone] Fabiana Bates LNA Social History Tobacco Use Types Packs/Day Years Used Date Smoking Tobacco: Every Day Cigarettes 1 28 Smokeless Tobacco: Never Comments:Currently using kalia otine inhaler to help herself quit (11/08/18) Alcohol Use Standard Drinks/Week Comments Not Currently 0 (1 standard drink = 0.6 oz pur e alcohol) [facility] Utilities Answer Date Recorded In the past 12 months has th e electric, gas, oil, or water [employer] threatened to shut off services in your [...] in the past [address] [facility], were you homeless or living in a [...] on filedocumented in this encounter Care Teams Aboriginal Liaison Officer Relationship Specialty Start Date End Date None None PCP - General 12/01/23 documented as of this encounter
--- OUTSIDE RECORDS SUMMARY | 2024-06-15 16:06 | XMS_ITS | Encounter Summary ---
Author Organization [facility] Address [facility] [place] [address] Care Team Providers Care Science Intern Name Role Phone None Primary Care Provider Unavailabl e Encounter Details Date Type Department Care Team (Late st Contact Info) Description 12/01/2023 3:38 PM EDT - 12/01/2023 5:23 PM EDT Surgery [place] [phone] Fidel Naranjo MD [facility] [place] [address] EXCISION BENIGN TUMOR OR CYST, MANDIBLE (WRVU [...] drink = 0.6 oz pur e alcohol) [facility] Utilities Answer Date Recorded In the past 12 months has e [employer], gas, oil, or water [employer] threatened to shut off services in your [...] your PICC line please call Infectious Disease: [phone]. Pain Control - use acetaminophen (Tylenol) and/or [...] get Peridex on the $4 list at [facility]. Activity: A good rule of thumb is [...] Fahrenheit -Bleeding Contact: -You can reach the [facility] clinic at [phone] for appointment questions. Follow Up: You will [...] PM Alea Bailey APRN Infectious Disease at [facility] Arrive at: Home [phone] Please do not come in for this visit. Your provider will call you at the number you provided. 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 Estimated EOT 12/31/2023 72 each 11/25/2023 12/30/2023 sodium chloride 0.9 %, flush, (BD PosiFlush Normal Saline 0.9) SyringeIndications:O steoma of mandibular condyle,skilled nursing current use of antibiotics Inject 10 mLs into the vein as needed (For Line Patency - See Instructions). FLUSH PROTOCOL WITH MEDICATIONS (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 Plan will be to debride and removed anterior mandibular lesion. Fidel Naranjo MD documented in this encounter Miscellaneous Notes * Op Note - Fidel Naranjo MD - 12/01/2023 4:10 PM EDT [facility] Operative Note Patient Name: Jenae La : [id number] MR#: [id number] Case Date: 12/01/2023 Preop Diagnosis: Cystic erosive [...] Jane MD, PGY4 12/01/2023 4:58 PM Pager #[phone] I was present for the entire procedure [...] 4:29 PM EDT Excision, Benign Tumor, Mandible ([id number]) Yes 12/01/2023 3:43 PM EDT Osteomyelitis of other site, unspecified type EXCISION BENIGN TUMOR OR CYST,MANDIBLE Routine 12/01/2023 2:44 PM EDT Osteomyelitis of other site, unspecified type documented in this encounter Results * Anaerobic Culture (12/01/2023 4:30 PM EDT) Anaerobic Culture No anaerobic organisms isolated [facility] Mandible 12/01/2023 4:30 PM EDT 12/01/2023 5:55 PM EDT Comment:Right anterior camacho bular lesion Narrative Resulting Agency Comment Spec In Lab Fidel Naranjo MD MICROBIOLOGY - GENER AL ORDERABLES Performing Organization Address [facility] de Phone Number [facility] [place] [place] [address] * Tissue culture (12/01/2023 4:30 PM EDT) Tissue Culture No growth [facility] Gram Stain Few Neutrophils seen No microorganisms seen. [facility] Mandible 12/01/2023 4:30 PM EDT 12/01/2023 5:55 PM EDT Comment:Right anterior camacho bular lesion Narrative Resulting Agency Comment Spec In Lab Fidel Naranjo MD MICROBIOLOGY - GENER AL ORDERABLES Performing Organization Address [facility] de Phone Number [facility] [place] [address] * Specimen to Pathology (12/01/2023 4:30 PM EDT) AP Specimen 12/01/2023 4:30 PM EDT 12/01/2023 4:30 PM EDT Narrative [facility] - 12/01/2023 4:30 PM EDT Specimen requisition ordered. ??Separate Pathology report to follow Fidel Naranjo MD PATHOLOGY/CYTOLOGY O RDERABLES Performing Organization Address [facility] [place] [address] * Surgical Pathology Report (12/01/2023 4:29 PM EDT) Final Diagnosis [id number] ? Location: [facility]; DC41; A The signing pathologist has (i) examined the relevant preparation(s) for the specimen(s) and (ii) rendered or confirmed the diagnosis(es). . ?Surgical Pathology DIAGNOSIS A - Right anterior mandibular lesion, excision: - Reactive gingival-type mucosa with granulation tissue. - Osteomyelitis. Electronically signed by: ?Donny Godwin MD Verified: ??12/08/2023 15:59 ??Pathologist Performed at: ??-[facility] Dept. of Pathology, [place] [address] Conservation Officer: Iman Sutton MD, AP, ??CLIA Certificate: [id number] DISCUSSION Multiple additional sections were examined. No [...] labeled A1-A3. ??sns 12/08/2023 3:59 PM EDT [facility] SOFT TISSUE MASS / Unknown 12/01/2023 4:29 PM EDT 12/01/2023 4:29 PM EDT Fidel Naarnjo MD PATHOLOGY/CYTOLOGY O RDERABLES [facility] [place] [phone] documented in this encounter Visit Diagnoses Diagnosis [...] Routine documented in this encounter Care Teams Science Intern Relationship Specialty Start Date End Date None None PCP - General 12/01/23 documented as of this encounter
--- OUTSIDE RECORDS SUMMARY | 2024-06-15 16:06 | XMS_ITS | Encounter Summary ---
Author Organization [facility] Address [facility] [place] [address] Care Team Providers Care Loan Servicing Representative Name Role Phone None Primary Care Provider Unavailabl e Encounter Details Date Type Department Care Team (Latest Contact Info) Description 12/28/2023 2:00 PM EDT TH Visit (TeleHealth) Infectious Disease at [facility] [place] [phone] Stephenie Moya MD [facility] [address] [place] [address] 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; [facility] [...] In the past 12 months has e [employer], gas, oil, or water [employer] threatened to shut off services in your [...] in the past 12 m [facility], were you homeless or living [...] dry socket after being evaluated at an [facility] site. She had two additional antibiotics [...] of ceftriaxone. On 12/27, she called the [facility] office stating that she was not able to make her into therapy appointment due to lack of money for gas. She states that her PICC line fell out on 12/22 and had been taking her old prescription of Augmentin. Appointment via telephone given technology issues. She corroborates what she told the [facility] nurses, she states that she has [...] antibiotics documented in this encounter Care Teams Loan Servicing Representative Relationship Specialty Start Date End Date None None PCP - General 12/01/23 documented as of this encounter
--- OUTSIDE RECORDS SUMMARY | 2024-06-15 16:06 | XMS_ITS | Encounter Summary ---
Author Organization [facility] Address [address] [place] [address] Care Team Providers Care Gum Machine Operator Name Role Phone Unavailable Primary Care Provider Unavailabl e Encounter Details Date Type Department Care Team (Late st Contact Info) Description 08/12/2002 Results Only [facility] [address] [place] [address] Unknown, Provider, Social History Tobacco Use Types [...] ? [place] ? Accession #: ? [id number] : ? 1965 (Age: 37) ??F ?Collect [...] End of Report RO [facility] 08/12/2002 2002 us Provider Unknown PATHOLOGY ORDERABLES Final R esult [facility] [address] [place] [address] documented in this encounter Visit Diagnoses Not on filedocumented in this encounter
--- OUTSIDE RECORDS SUMMARY | 2024-06-15 16:06 | XMS_ITS | Encounter Summary ---
Author Organization [facility] Address [address] [place] [address] Care Team Providers Care Health Social Work Professor Name Role Phone Unavailable Primary Care Provider Unavailabl e Encounter Details Date Type Department Care Team (Latest Contact Info) Description 11/16/2000 15:32 EDT Hospital Encounter [facility] Emergency Department - [facility] [address], [place] [id number] Emergency, Default, MD Discharge Disposition: Home or [...] fracture or dislocation. /wades Raya Millan PA-C [facility] ORDE RABLES Final Result * [...] thumb r/o fx + Raya Millan PA-C [facility] ORDE RABLES Final Result documented in this encounter Visit Diagnoses Not on filedocumented in this encounter
--- OUTSIDE RECORDS SUMMARY | 2024-06-15 16:06 | XMS_ITS | Encounter Summary ---
Author Organization [facility] Address [facility] [place] [address] Care Team Providers Care Advertising Account Manager Name Role Phone Unknown Primary Care [...] drink = 0.6 oz pur e alcohol) [facility] Utilities Answer Date Recorded In [...] time in the past 12 m [facility], were you homeless or living in [...] on filedocumented in this encounter Care Teams Advertising Account Manager Relationship Specialty Start Date End Date Unknown None PCP - General 11/20/23 11/30/23 documented as of this encounter
--- OUTSIDE RECORDS SUMMARY | 2024-06-15 16:06 | XMS_ITS | Encounter Summary ---
Author Organization [facility] [place] [address] Care Team Providers Care Freelance Patternmaker Name Role Phone Unknown Primary Care Provider Unavailabl e Reason for Visit * Treatment/Therapy Plan Authorization (Routine) - Authorized Specialty Diagnoses / Procedures Referred By Contac t Referred To Contact Diagnoses Osteomyelitis, unspecified site, unspecified type Procedures TC CEFTRIAXONE, 250MG, INJECTION (ROCEPHIN) Juan Yo MD [facility] [place] [address] [facility] Med Infusion [address] [place] [phone] Referral ID Status Reason Start Date Expiration Date V isits Requested Visits Authorized [id number] Authorized 11/23/2023 11/22/2024 99 99 Encounter Details Date Type Department Care Team (Latest Contact Info) Description 11/25/2023 11:50 AM EDT - 11/25/2023 11:59 PM EDT Hospital En[place] [address] Osteomyelitis, unspecified site, unspecified type Discharge Disposition: Home Social History Tobacco Use Types Packs/Day Years Used Date Smoking Tobacco: Every Day Cigarettes 06 21 Smokeless Tobacco: Never Comments:Currently using kalia otine inhaler to help herself quit (11/08/18) Alcohol Use Standard Drinks/Week Comments Not Currently 0 (1 standard drink = 0.6 oz pur e alcohol) [facility] Utilities Answer Date Recorded In the past 12 months has [employer], gas, oil, or water company threatened [...] 1 gram injection solutionIndications: 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,tank terminal gauger current use of antibiotics Inject 2 g into the vein daily for 36 days. Estimated EOT 12/31/2023 72 each 11/25/2023 12/30/2023 sodium chloride 0.9 %, flush, (BD PosiFlush Normal Saline 0.9) SyringeIndications:O steoma of mandibular condyle,tank terminal gauger current use of antibiotics Inject 10 mLs into the vein as needed (For Line Patency - See Instructions). FLUSH PROTOCOL WITH MEDICATIONS ([facility]): Before med infusion: flush with NS 10 [...] porcine, 10 unit/mL SolutionIndications: 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,tank terminal gauger current use of antibiotics Inject 3 mLs into the vein as needed (For Line Patency - See Instructions). FLUSH PROTOCOL WITH MEDICATIONS ([facility]): Before med infusion: flush with NS 10 [...] 2 mg Recon SolnIndications:Oste cris of mandibular condyle,detention current use of antibiotics Instill reconstituted alteplase [...] actual dose given at bedside by Raquel Carreon,HOUSING ASSISTANT PROPERTY MANAGER/TREATMENT: DOSE, ROUTE, START TIME, STOP TIME: cefTRIAXone 2 g Intravenous Once ### Administration times: 1214 to 1244 REACTIONS (DESCRIPTION, TIME, INTERVENTION AND EFFECTIVENESS): None. ASSESSMENT: Awake and alert - tolerated treatment well. PLAN: [facility] nurse Miguel here and provided teaching [...] hr documented in this encounter Care Teams Freelance Patternmaker Relationship Specialty Start Date End Date Unknown None PCP - General 11/20/23 11/30/23 documented as of this encounter
--- OUTSIDE RECORDS SUMMARY | 2024-06-15 16:06 | XMS_ITS | Encounter Summary ---
Author Organization [facility] Address [facility] [place] [address] Care Team Providers Care Hazardous Substances Engineer Name Role Phone Unknown Primary Care Provider Unavailabl e Encounter Details Date Type Department Care Team (Late st Contact Info) Description 11/23/2023 Orders [place] [address] Juan Yo MD [facility] [place] [address] Social History Tobacco Use Types Packs/Day Years [...] on filedocumented in this encounter Care Teams Hazardous Substances Engineer Relationship Specialty Start Date End Date Unknown None PCP - General 11/20/23 11/30/23 documented as of this encounter
--- OUTSIDE RECORDS SUMMARY | 2024-06-15 16:06 | XMS_ITS | Encounter Summary ---
Author Organization [facility] [place] [address] Care Team Providers Care Jet Aircraft Servicer Name Role Phone None Primary Care Provider Unavailabl e Encounter Details Date Type Department Care Team (Late st Contact Info) Description 12/08/2023 Telephone [place] [phone] Alea Bailey APRN [facility] [place] [address] Social History Tobacco Use Types Packs/Day Years Used Date Smoking Tobacco: Every Day Cigarettes 1 28 Smokeless Tobacco: Never Comments:Currently using kalia otine inhaler to help herself quit (11/08/18) Alcohol Use Standard Drinks/Week Comments Not Currently 0 (1 standard drink = 0.6 oz pur e alcohol) [facility] Utilities Answer Date Recorded [...] time in the past 12 m [facility], were you homeless or living in a [...] on filedocumented in this encounter Care Teams Jet Aircraft Servicer Relationship Specialty Start Date End Date None None PCP - General 12/01/23 documented as of this encounter
--- OUTSIDE RECORDS SUMMARY | 2024-06-15 16:06 | XMS_ITS | Encounter Summary ---
Author Organization [facility] Address [facility] [place] [address] Care Team Providers Care Underlay Stitcher Name Role Phone Unknown Primary Care Provider Unavailabl e Encounter Details Date Type Department Care Team (Late st Contact Info) Description 11/23/2023 Orders [place] [phone] Dariana Jane MD [facility] [place] [address] Osteomyelitis of other site, unspecified type Social History Tobacco Use Types Packs/Day Years Used Date Smoking Tobacco: Every Day Cigarettes 1 28 Smokeless Tobacco: Never Comments:Currently using kalia otine inhaler to help herself quit (11/08/18) Alcohol Use Standard Drinks/Week Comments Not Currently 0 (1 standard drink = 0.6 oz pur e alcohol) [facility] Utilities Answer Date Recorded In the past 12 months has e [employer], gas, oil, or water [employer] threatened to shut off services in your [...] type documented in this encounter Care Teams Underlay Stitcher Relationship Specialty Start Date End Date Unknown None PCP - General 11/20/23 11/30/23 documented as of this encounter
--- OUTSIDE RECORDS SUMMARY | 2024-06-15 16:06 | XMS_ITS | Encounter Summary ---
Author Organization [facility] Address [facility] [place] [address] Care Team Providers Care Interior Decorator Paperhanging Name Role Phone None Primary Care Provider Unavailabl e Encounter Details Date Type Department Care Team (Late st Contact Info) Description 12/17/2023 Interpretation Only Radiology [address] [place] [address] Unknown None Social History Tobacco Use Types Packs/Day Years Used Date Smoking Tobacco: Every Day Cigarettes 06 21 Smokeless Tobacco: Never Comments:Currently using kalia otine inhaler to help herself quit (11/08/18) Alcohol Use Standard Drinks/Week Comments Not Currently 0 (1 standard drink = 0.6 oz pur e alcohol) [facility] Utilities Answer Date Recorded In the past [...] on filedocumented in this encounter Care Teams Interior Decorator Paperhanging Relationship Specialty Start Date End Date None None PCP - General 12/01/23 documented as of this encounter
--- OUTSIDE RECORDS SUMMARY | 2024-06-15 16:06 | XMS_ITS | Encounter Summary ---
Author Organization [facility] [place] [address] Care Team Providers Care Professor Of Latin American Studies Name Role Phone None Primary Care Provider Unavailabl e Encounter Details Date Type Department Care Team (Late st Contact Info) Description 12/10/2023 Telephone [place] [address] Juliann Patino Social History Tobacco Use Types Packs/Day Years Used Date Smoking Tobacco: Every Day Cigarettes 1 Smokeless Tobacco: Never Comments:Currently using kalia otine inhaler to help herself quit (11/08/18) Alcohol Use Standard Drinks/Week Comments Not Currently 0 (1 standard drink = 0.6 oz pur e alcohol) [facility] Utilities Answer Date Recorded In the past 12 months has th e [employer], gas, oil, or water [employer] threatened to shut off services in your [...] on filedocumented in this encounter Care Teams Professor Of Latin American Studies Relationship Specialty Start Date End Date None None PCP - General 12/01/23 documented as of this encounter
--- OUTSIDE RECORDS SUMMARY | 2024-06-15 16:06 | XMS_ITS | Encounter Summary ---
Author Organization [facility] Address [facility] [place] [address] Care Team Providers Care Gun Striper Name Role Phone None Primary Care Provider Unavailabl e Encounter Details Date Type Department Care Team (Late st Contact Info) Description 11/23/2023 Orders Only Infectious Disease at [facility] [place] [address] Juan Yo MD [facility] [place] [address] 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; USP current use of antibiotics Social History Tobacco Use Types Packs/Day Years Used Date Smoking Tobacco: Every Day Cigarettes 1 28 Smokeless Tobacco: Never Comments:Currently using kalia otine inhaler to help herself quit (11/08/18) Alcohol Use Standard Drinks/Week Comments Not Currently 0 (1 standard drink = 0.6 oz pur e alcohol) [facility] Utilities Answer Date Recorded In the past 12 months has e [employer], gas, oil, or water [employer] threatened to shut off services in your [...] any time in the past 12 m [facility], were you homeless or living in a [...] Guidance (IV Team) (11/25/2023 9:58 AM EDT) [employer] Signature WORKSTATION ID [id number] RAD Anatomical Region Laterality Modality N/A Radio [...] who have questions please contact the health customer care coordinator that requested your imaging first. ? Electronically signed by: Blaze Don MD, [facility] ??([phone]), at 11/25/2023 11:40 AM Narrative 11/25/2023 11:40 [...] patients who have questions please contactthe health customer care coordinator that requested your imaging first. Juan Yo MD IMG FLUORO ORDERABL ES documented in this encounter Visit Diagnoses Diagnosis 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 USP current use of antibiotics Encounter for long-term (current) use of antibiotics 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 USP current use of antibiotics Encounter for long-term (current) use of antibiotics documented in this encounter Care Teams Gun Striper Relationship Specialty Start Date End Date None None PCP - General 12/01/23 documented as of this encounter
--- OUTSIDE RECORDS SUMMARY | 2024-06-15 16:06 | XMS_ITS | Encounter Summary ---
Author Organization [facility] Address [facility] [place] [address] Care Team Providers Care Cherry Sorter Name Role Phone Unknown Primary Care Provider Unavailabl e Encounter Details Date Type Department Care Team (Late st Contact Info) Description 11/25/2023 Notes Only Infectious Disease at [facility] [place] [address] Cindy Lizama RN Social History Tobacco Use [...] the past [address] [facility], were you homeless or living in a fdc (including now)? No 11/20/2023 [facility] Inpatient Questions Answer Date Recorded Does [...] First infusion at 3-D Infusion Suite at [facility] Labs to be drawn at [facility] today (11/24) and at [facility] Infusion Suite each Thursday at 1300. Orders/referrals completed: PICC, OPAT, labs, therapy plan, EMERGENCY COMMUNICATIONS OPERATOR referral Referrals made to: EMERGENCY COMMUNICATIONS OPERATOR: N/A Infusion vendor: [facility] Infusion suite: [facility] ID physician and patient aware [...] to contact. Reviewed roles and responsibilities of EMERGENCY COMMUNICATIONS OPERATOR and infusion vendor. Contact information for ID team/clinic, EMERGENCY COMMUNICATIONS OPERATOR and infusion vendor given to pt. [...] Start date: 11/19/2023 Anticipated stop date: 12/31/2023 EMERGENCY COMMUNICATIONS OPERATOR: N/A Pt scheduled to go to [facility] Infusion Suite for weekly labs [...] F/u: Labs: Q Thursday: CBC/Diff, CMP at [facility] Labs: Q Thursday Inflammatory CRP at [facility] Attending Responsible for IV Antimicrobials: Juan Bennett MD ID F/U appts to be scheduled documented in this encounter Plan of Treatment Not on file documented as of this encounter Visit Diagnoses Not on filedocumented in this encounter Care Teams Cherry Sorter Relationship Specialty Start Date End Date Unknown None PCP - General 11/20/23 11/30/23 documented as of this encounter
--- OUTSIDE RECORDS SUMMARY | 2024-06-15 16:06 | XMS_ITS | Encounter Summary ---
Author Organization [facility] Address [facility] [place] [address] Care Team Providers Care Engineering Document Control Clerk Name Role Phone None Primary Care Provider Unavailabl e Encounter Details Date Type Department Care Team (Late st Contact Info) Description 12/17/2023 8:00 AM EDT Office Visit [place] [phone] Delvin Church PA [facility] [place] [address] Osteomyelitis, unspecified site, unspecified type Social History [...] In the past 12 months has e [employer], gas, oil, or water [employer] threatened to shut off services in your [...] any time in the past 12 m [facility], were you homeless or living [...] type documented in this encounter Care Teams Engineering Document Control Clerk Relationship Specialty Start Date End Date None None PCP - General 12/01/23 documented as of this encounter
--- OUTSIDE RECORDS SUMMARY | 2024-06-15 16:06 | XMS_ITS | Encounter Summary ---
Author Organization [facility] Address [address] [place] [address] Care Team Providers Care Rail Splitter Name Role Phone Unavailable Primary Care Provider Unavailabl e Encounter Details Date Type Department Care Team (Late st Contact Info) Description 04/14/2003 Results Only [facility] conversion [address] [place] [address] Maria E Esquivel MD [address] [place] [address] [place] [address] Social History Tobacco Use Types Packs/Day Years [...] ? [place] ? Accession #: ? [id number] ? : ? 1965 (Age: 37) ??F [...] of 0.2 cm. No are identified. ??Three lead generation representative sections of normal-appearing fallopian tube are submitted as (A1), and two lead generation representative sections of the dilated portion are submitted as (A2). ??(Dr. Beverly)/[facility] End of Report [facility] 04/14/2003 04/14/2003 15: 13 EST us Maria E Esquivel MD PATHOLOGY ORDERABLES Final Resu lt [facility] [address] [place] [address] documented in this encounter Visit Diagnoses Not on filedocumented in this encounter
--- OUTSIDE RECORDS SUMMARY | 2024-06-15 16:06 | XMS_ITS | Clinical Summary ---
Author Organization [facility] Address [facility] [place] [address] Care Team Providers Care Planning Official Name Role Phone None Primary Care Provider [...] drink = 0.6 oz pur e alcohol) [facility] Utilities Answer Date Recorded In [...] in a penitentiary (including now)? No 11/20/2023 IPV Inpatient Questions [...] Hepatitis B vaccine (0-59 yrs) (1) 08/15/1986 Pneumoccocal Vaccine: 50+ (1 of 2 - PCV) 08/15/1986 Tetanus/Diphtheria/Pertussis [...] history exists Medical Devices Implanted Type Area Director Of Social Services Device Identifier Shelf Expiration Date Model / Serial / Lot Screw,Crtx,Sta p,Star,2x18mm ([id number]) - [id number] Implanted:Qty: 1 on 09/16/2018 by Aparna Reed MD at [facility] IMPLANTS Right: Foot ALEENA & [employer]Systems - ALEENA SALVATORE 201.368.97 / / Screw,Lck,Stap ,Star,2x14mm ([id number]) - [id number] Implanted:Qty: 1 on 09/16/2018 by Aparna Reed MD at [facility] IMPLANTS Right: Foot ALEENA & [facility] [facility] - ALEENA SALVATORE 201.884 / / Screw,Lck,Stap ,Star,2x18mm (0450169) - [id number] Implanted:Qty: 1 on 09/16/2018 by Aparna Reed MD at [facility] IMPLANTS Right: Foot ALEENA & [employer] - ALEENA SALVATORE 201.888 / / Plate,Lcp,7h,2 .0x52mm (4524681) - [id number] Implanted:Qty: 1 on 09/16/2018 by Aparna Reed MD at [facility] IMPLANTS Right: Foot ALEENA & ALEENA [employer] - ALEENA SALVATORE 247.347 / / Plate,Cndylr,L cp,7h,2.4mm (3007569) (Autoreq) - [id number] Implanted:Qty: 1 on 09/16/2018 by Aparna Reed MD at [facility] IMPLANTS Right: Foot ALEENA & [employer]ENA [employer] - ALEENA SALVAOTRE 249.679 / / Bone,Crushed,C ancellous,10cc (7220678) ([employer]oreq) - [id number] Implanted:Qty: 1 on 09/16/2018 by Aparna Reed MD at [facility] IMPLANTS Right: Foot [facility]/30/2023 [facility] / / [id number] Pin,Kwire,Plai n,2,0.846q6gc, Ns ([id number]) - [id number] Implanted:Qty: 3 on 09/16/2018 by Aparna eRed MD at [facility] IMPLANTS Left: Foot [employer] - MICROAIRE 1600-945NS / / Plate,Lcp,Cndy lr,7h-Shft,2mm (6909591) - [id number] Implanted:Qty: 1 on 09/16/2018 by Aparna Reed MD at [facility] IMPLANTS Left: Foot ALEENA & ALEENA [employer] - ALENEA SALVATORE 247.349 / / Screw,Lck,Stap ,Star,2x12mm (1317981) - [id number] Implanted:Qty: 1 on 09/16/2018 by Aparna Reed MD at [facility] IMPLANTS Left: Foot [employer]ENA [employer] Help[employer]Systems - ALEENA SALVATORE 201.882 / / Screw,Crtx,Sta p,T8,2.4x16mm (4479704) - [id number] Implanted:Qty: 1 on 09/16/2018 by Aparna Reed MD at [facility] IMPLANTS Right: Foot [employer]ENA [employer] - ALEENA SALVATORE 201.766 / / Screw,Lck,Stap ,Star,2x10mm (9600510) - [id number] Implanted:Qty: 1 on 09/16/2018 by Aparna Reed MD at [facility] IMPLANTS Left: Foot [employer] - ALEENA SALVATORE 201.880 / / Screw,Crtx,Sta p,Star,2x12mm (4595995) - [id number] Implanted:Qty: 1 on 09/16/2018 by Aparna Reed MD at [facility] IMPLANTS Left: Foot ALEENA & [employer]ENA [employer] - ALEENA SALVATORE 201.362.97 / / Screw,Crtx,Sta p,Star,2x14mm (0450709) - [id number] Implanted:Qty: 1 on 09/16/2018 by Aparna Reed MD at [facility] IMPLANTS Left: Foot A[employer]ENA & [employer]System[employer] - ALEENA SALVATORE 201.364.97 / / Screw,Crtx,Sta p,Star,2x14mm (9024986) - [id number] Implanted:Qty: 1 on 09/16/2018 by Aparna Reed MD at [facility] IMPLANTS Right: Foot ALEENA [employer] - ALEENA SALVATORE 201.364.97 / / Screw,Va,Lck,S lftp,T6,2x22mm (9978944) - [id number] Implanted:Qty: 1 on 09/16/2018 by Aparna Reed MD at [facility] IMPLANTS Right: Foot [employer] - DEPUY SYNT 02.130.322 / / Screw,Crtx,Sta p,Star,2x12mm (6113665) - [id number] Implanted:Qty: 1 on 09/16/2018 by Aparna Reed MD at [facility] IMPLANTS Right: Foot ALEENA & [facility] - ALEENA SALVATORE 201.362.97 / / Screw,Va,Lck,S lftp,T6,2x18mm (9145357) - [id number] Implanted:Qty: 1 on 09/16/2018 by Aparna Reed MD at [facility] IMPLANTS Right: Foot [employer]PU[employer] - DEPUY SYNT 02.130.318 / / Screw,Va,Lck,S lftp,T6,2x16mm (1531629) - [id number] Implanted:Qty: 1 on 09/16/2018 by Aparna Reed MD at [facility] IMPLANTS Right: Foot ALEENA & [facility] [facility] - ALEENA ASLVATORE 02.130.316 / / Screw,Crtx,Sta p,Star,2x16mm (6826075) - [id number] Implanted:Qty: 1 on 09/16/2018 by Aparna Reed MD at [facility] IMPLANTS Right: Foot ALEENA & [facility] [facility] - ALEENA SALVATORE 201.366.97 / / Screw,Crtx,Sta p,Strdrv,2x10m m (6275468) - [id number] Implanted:Qty: 1 on 09/16/2018 by Aparna Reed MD at [facility] IMPLANTS Left: Foot ALEENA & [facility] [facility] - ALEENA SALVATORE 201.360.97 / / Screw,Crtx,Sta p,T8,2.4x26mm (5993882) - [id number] Implanted:Qty: 1 on 09/16/2018 by Aparna Reed MD at [facility] IMPLANTS Right: Foot ALEENA & [facility] [facility] - ALEENA SALVATORE 201.776 / / Guidew,Thrd,1. 7l081xd (8907237) - [id number] Implanted:Qty: 3 on 09/16/2018 by Aparna Reed MD at [facility] IMPLANTS Right: Foot ALEENA & [facility] - ALEENA SALVATORE 292.727 / / Screw,Crtx,Sta p,T8,2.4x22mm (8412138) - [id number] Implanted:Qty: 1 on 09/16/2018 by Aparna Reed MD at [facility] IMPLANTS Right: Foot ALEENA & [facility] [facility] - ALEENA SALVATORE 201.772 / / Screw,Slftp,Lc k,Star,2.4x12m m (5126158) - [id number] Implanted:Qty: 1 on 09/16/2018 by Aparna Reed MD at [facility] IMPLANTS Right: Foot ALEENA & [facility] - ALEENA SALVATORE 212.812 / / Screw,Lck,Stap ,Star,2.4x6mm (9922860) - [id number] Implanted:Qty: 1 on 09/16/2018 by Aparna Reed MD at [facility] IMPLANTS Right: Foot ALEENA & [facility] - ALEENA SALVATORE 212.806 / / Screw,Lck,Stap ,Star,2.4x18mm (9809526) - [id number] Implanted:Qty: 1 on 09/16/2018 by Aparna Reed MD at [facility] IMPLANTS Right: Foot ALEENA & [facility] [facility] - ALEENA SALVATORE 212.818 / / Screw,Crtx,Sta p,Strdrv,2x9mm (4461658) - [id number] Implanted:Qty: 1 on 09/16/2018 by Aparna Reed MD at [facility] IMPLANTS Right: Foot ALEENA & [facility] - ALEENA SALVATORE 201.359.97 / / Screw,Crtx,Sta p,Star,2x28mm (2812171) - [id number] Implanted:Qty: 1 on 09/16/2018 by Aparna Reed MD at [facility] IMPLANTS Right: Foot ALEENA & [facility] - ALEENA SALVATORE 201.376.97 / / Explanted Type Area Director Of Social Services Device Identifier Shelf Expiration Date Model / Serial / Lot Allan WelchTroc 1 Ed,Ns,[id number] ([id number]) (Autoreq) - [id number] Explanted:Qty: 1 on 09/16/2018 by Aparna Reed MD at [facility] IMPLANTS Right: Foot ALEENA & [facility] - ALEENA SALVATORE 292.20 / / Allan WelchTroc 1ed,Ns,[id number] (6076083) - [id number] Explanted:Qty: 2 on 09/16/2018 by Aparna Reed MD at [facility] IMPLANTS Right: Foot ALEENA & ALEENA [...] Joaquin MD CHEMISTRY ORDERABLES [facility] [place] [address] * Hemoglobin A1c (09/16/2018 3:33 PM EDT) [...] Mellitus, Diabetes Care 2013; 36: Suppl. 1, S67-44 Estimated Average Glucose 111 mg/dL [facility] [...] into estimated average glucose values. ??Diabetes Care 2008:31(8):9994-8842. Blood specimen (specimen) 09/16/2018 3:33 PM EDT 09/16/2018 3:49 PM EDT Narrative Resulting Agency Comment Spec In Lab Javad Urban MD CHEMISTRY ORDERABLES [facility] [place] [address] from Last 3 Months or Most Recently [...] capacity to make decision: Yes Care Teams Planning Official Relationship Specialty Start Date End Date None None PCP - General 12/01/23
--- OUTSIDE RECORDS SUMMARY | 2024-06-15 16:06 | XMS_ITS | Encounter Summary ---
Author Organization [facility] Address [address] [place] [address] Care Team Providers Care Metal Moulder'S Assistant Name Role Phone Unavailable Primary Care Provider Unavailabl e Encounter Details Date Type Department Care Team (Late st Contact Info) Description 10/16/2003 Results Only [facility] conversion [address] [place] [address] Doris Tay MD [address] [place], [place] [id number] Social History Tobacco Use Types Packs/Day Years [...] ? [place] ? Accession #: ? [id number] : ? 1965 (Age: 38) ??F ?Collect [...] ORDERABLES Final Resul t Performing Organization Address City/State/[facility] Co de Phone Number [facility] [address] [place] [address] documented in this encounter Visit Diagnoses Not on filedocumented in this encounter
--- OUTSIDE RECORDS SUMMARY | 2024-06-15 16:06 | XMS_ITS | Encounter Summary ---
Author Organization [facility] Address [facility] [place] [address] Care Team Providers Care Bench Repair Technician Name Role Phone Unknown Primary Care Provider Unavailabl e Encounter Details Date Type Department Care Team (Latest Contact Info) Description 11/25/2023 9:21 AM EDT - 11/25/2023 11:49 AM EDT Hospital Encounter XRay at [address] [place] [address] Juan Yo MD [facility] [place] [address] 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; intermediate current use of antibiotics Discharge Disposition: Home Social History Tobacco Use Types Packs/Day Years Used Date Smoking Tobacco: Every Day Cigarettes 1 28 Smokeless Tobacco: Never Comments:Currently using kalia otine inhaler to help herself quit (11/08/18) Alcohol Use Standard Drinks/Week Comments Not Currently 0 (1 standard drink = 0.6 oz pur e alcohol) [facility] Utilities Answer Date Recorded In the past 12 months has [employer], [employer], oil, or water [employer] threatened to shut off services in your [...] any time in the past 12 m [facility], were you homeless or living [...] 10 unit/mL SolutionIndications: 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 Hand Hygiene: The internet marketing specialist did perform hand hygiene prior to line insertion. Catheter type: PICC Lot number: [id number] Procedure Technique: Skin was prepped with chlorhexidine. 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 ? Electronically signed by: Blaze Don MD, [facility] ??([phone]), at 11/25/2023 11:40 AM Narrative 11/25/2023 11:40 [...] patients who have questions please contactthe health child adolescent care that requested your imaging first. 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
--- OUTSIDE RECORDS SUMMARY | 2024-06-15 16:06 | XMS_ITS | Encounter Summary ---
Author Organization [facility] Address [address] [place] [address] Care Team Providers Care Motorcycle Builder Name Role Phone Unavailable Primary Care Provider Unavailabl e Encounter Details Date Type Department Care Team (Late st Contact Info) Description 05/15/2004 Results Only [facility] conversion [address] [place] [address] Ld Yanez MD [address] [place], [place] [id number] Social History Tobacco Use Types Packs/Day Years [...] ? [place] ? Accession #: ? [id number] ? : ? 1965 (Age: 38) ??F [...] (A). ?? Received in formalin [facility] and uterus, cervix, colleen ovaries, right [...] ?Posterior endomyometrium B4 ?Posterior cervix B5 ?Two telephone claims representative sections of right fallopian tube and one telephone claims representative section of right ? ovary with angel nodule B6 ?Landscape Crew Member section of left ovary (Dr. Ledbetter-AF)/tmg End of Report [facility] 05/15/2004 05/16/2004 8:1 7 EST us Ld Yanez MD PATHOLOGY ORDERABLES Final Resul t [facility] [address] [place] [address] documented in this encounter Visit Diagnoses Not on filedocumented in this encounter
--- OUTSIDE RECORDS SUMMARY | 2024-06-15 16:06 | XMS_ITS | Encounter Summary ---
Author Organization [facility] [place] [address] Care Team Providers Care Computer Application Developer Name Role Phone None Primary Care Provider Unavailabl e Encounter Details Date Type Department Care Team (Late st Contact Info) Description 12/22/2023 Telephone [place] [address] Juliann Patino Social History Tobacco Use Types Packs/Day Years Used Date Smoking Tobacco: Every Day Cigarettes 1 Smokeless Tobacco: Never Comments:Currently using kalia otine inhaler to help herself quit (11/08/18) Alcohol Use Standard Drinks/Week Comments Not Currently 0 (1 standard drink = 0.6 oz pur e alcohol) [facility] Utilities Answer Date Recorded In the past 12 months has th e [employer], gas, oil, or water [employer] threatened to shut off services in your [...] in the past 12 m [facility], were you homeless or [...] filedocumented in this encounter Care Teams Computer Application Developer Relationship Specialty Start Date End Date None None PCP - General 12/01/23 documented as of this encounter
--- OUTSIDE RECORDS SUMMARY | 2024-06-15 16:06 | XMS_ITS | Encounter Summary ---
Author Organization [facility] Address [address] [place] [address] Care Team Providers Care Deputy Manager Name Role Phone Unavailable Primary Care Provider Unavailabl e Encounter Details Date Type Department Care Team (Late st Contact Info) Description 09/23/2005 Results Only [facility] conversion [address] [place] [address] Abdirashid Parmar, DO [address] [facility] [address] [place], [place] [id number] Social History Tobacco Use Types Packs/Day Years [...] ? ERICKSON LA ? Accession #: ? [id number] ? : ? 1965 (Age: 40) ??F [...] noted in any of the esophageal biopsies. /[facility] Document reviewed and electronically signed by: [...] soft tissue, entirely submitted as (D). ??(Nieves Davila)/[facility] End of Report RO [facility] 09/23/2005 09/23/2005 15: 31 EDT us Abdirashid Parmar DO PATHOLOGY ORDERABLES Fi nal Result [facility] [address] [place] [address] documented in this encounter Visit Diagnoses Not on filedocumented in this encounter
--- OUTSIDE RECORDS SUMMARY | 2024-06-15 16:06 | XMS_ITS | Encounter Summary ---
Author Organization [facility] Address [facility] [place] [address] Care Team Providers Care Business Services Coordinator Name Role Phone None Primary Care [...] alcohol) [facility] Utilities Answer Date Recorded In the past [...] on filedocumented in this encounter Care Teams Business Services Coordinator Relationship Specialty Start Date End Date None None PCP - General 12/01/23 documented as of this encounter
--- OUTSIDE RECORDS SUMMARY | 2024-06-15 16:06 | XMS_ITS | Encounter Summary ---
Author Organization [facility] Address [facility] [place] [address] Care Team Providers Care Bar Finish Operator Name Role Phone Unknown Primary Care Provider Unavailabl e Encounter Details Date Type Department Care Team (Late st Contact Info) Description 11/23/2023 Notes Only Infectious Disease [facility] [place] [address] Stephenie Moya MD [facility] [place] [address] Social History Tobacco Use Types Packs/Day Years Used Date Smoking Tobacco: Every Day Cigarettes 1 28 Smokeless Tobacco: Never Comments:Currently using kalia otine inhaler to help herself quit (11/08/18) Alcohol Use Standard Drinks/Week Comments Not Currently 0 (1 standard drink = 0.6 oz pur e alcohol) [facility] Utilities Answer Date Recorded In the past [...] in a retirement (including now)? No 11/20/2023 IPV Inpatient Questions [...] on filedocumented in this encounter Care Teams Bar Finish Operator Relationship Specialty Start Date End Date Unknown None PCP - General 11/20/23 11/30/23 documented as of this encounter
--- OUTSIDE RECORDS SUMMARY | 2024-06-15 16:06 | XMS_ITS | Encounter Summary ---
Author Organization [facility] Address [facility] [place] [address] Care Team Providers Care Drug Abuse Treatment Specialist Name Role Phone None Primary Care Provider Unavailabl e Encounter Details Date Type Department Care Team (Latest Contact Info) Description 12/01/2023 2:08 PM EDT - 12/01/2023 6:33 PM EDT Hospital Encounter Same Day Program at [place] [phone] Fidel Naranjo MD [facility] [place] [address] Osteomyelitis of other site, unspecified type Discharge [...] In the past 12 months has e [employer], gas, oil, or water [employer] threatened to shut off services in your [...] in the past 12 m [facility], were you homeless or living [...] your PICC line please call Infectious Disease: [phone]. Pain Control - use acetaminophen (Tylenol) and/or [...] get Peridex on the $4 list at [facility]. Activity: A good rule of thumb is [...] Fahrenheit -Bleeding Contact: -You can reach the [facility] clinic at [phone] for appointment questions. Follow Up: You will [...] PM Alea Bailey APRN Infectious Disease at [facility] Arrive at: Home [phone] Please do not come in for this visit. Your provider will call you at the number you provided. 12/28/2023 2:00 PM Stephenie Moya MD Infectious Disease at [facility] Arrive at: [place] [phone] documented in this encounter Medications at Time [...] 1 gram injection solutionIndications: 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,care home current use of antibiotics Inject 2 g into the vein daily for 36 days. 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 Plan will be to debride and removed anterior mandibular lesion. Fidel Naranjo MD documented in this encounter Miscellaneous Notes * Op Note - Fidel Naranjo MD - 12/01/2023 4:10 PM EDT [facility] Operative Note Patient Name: Jenae La : [id number] MR#: [id number] Case Date: 12/01/2023 Preop Diagnosis: Cystic erosive [...] Jane MD, PGY4 12/01/2023 4:58 PM Pager #[phone] I was present for the entire procedure [...] 4:29 PM EDT Excision, Benign Tumor, Mandible ([id number]) Yes 12/01/2023 3:43 PM EDT Osteomyelitis of [...] - GENER AL ORDERABLES Performing Organization Address [facility] de Phone Number [facility] [place] [address] * Tissue culture (12/01/2023 4:30 PM EDT) Tissue Culture No growth [facility] Gram Stain Few Neutrophils seen No microorganisms seen. [facility] Mandible 12/01/2023 4:30 PM EDT 12/01/2023 5:55 PM EDT Comment:Right anterior camacho bular lesion Narrative Resulting Agency Comment Spec In Lab Fidel Naranjo MD MICROBIOLOGY - GENER AL ORDERABLES Performing Organization Address [facility] de Phone Number [facility] [place] [address] * Specimen to Pathology (12/01/2023 4:30 PM EDT) AP Specimen 12/01/2023 4:30 PM EDT 12/01/2023 4:30 PM EDT Narrative [facility] - 12/01/2023 4:30 PM EDT Specimen requisition ordered. ??Separate Pathology report to follow Fidel Naranjo MD PATHOLOGY/CYTOLOGY O RDERABLES Performing Organization Address [facility] [place] [address] * Surgical Pathology Report (12/01/2023 4:29 PM EDT) Final Diagnosis [id number] ? Location: [facility]; OR41; A The signing pathologist has (i) examined the relevant preparation(s) for the specimen(s) and (ii) rendered or confirmed the diagnosis(es). . ?Surgical Pathology DIAGNOSIS A - Right anterior mandibular lesion, excision: - Reactive gingival-type mucosa with granulation tissue. - Osteomyelitis. Electronically signed by: ?Donny Godwin MD Verified: ??12/08/2023 15:59 ??Pathologist Performed at: ??-[facility] Dept. of Pathology, [place] [address] Director Of Global Sales: Iman Sutton MD, AP, ??CLIA Certificate: [id number] DISCUSSION Multiple additional sections were examined. No [...] PATHOLOGY/CYTOLOGY O RDERABLES [facility] [place] [address] documented in this encounter Visit Diagnoses Diagnosis [...] Routine documented in this encounter Care Teams Drug Abuse Treatment Specialist Relationship Specialty Start Date End Date None None PCP - General 12/01/23 documented as of this encounter
--- OUTSIDE RECORDS SUMMARY | 2024-06-15 16:07 | XMS_ITS | Encounter Summary ---
[place] [address] Care Team Providers Care Barrel Lapper Name Role Phone Yamile De Leon APRN Primary Care Provider [phone] Encounter Details Date Type Department Care Team [...] on filedocumented in this encounter Care Teams Barrel Lapper Relationship Specialty Start Date End Date Yamile De Leon APRN PCP - General Family Medicine 10/01/18 11/19/23 documented as of this encounter
--- OUTSIDE RECORDS SUMMARY | 2024-06-15 16:07 | XMS_ITS | Encounter Summary ---
Author Organization [facility] Address [facility] [place] [address] Care Team Providers Care Carrier Blower Name Role Phone Yamile De Leon APRN Primary Care Provider [phone] Encounter Details Date Type Department Care Team (Late st Contact Info) Description 01/27/2019 6:20 PM EDT Ancillary Procedure Radiology Library at [facility] [place] [address] Aparna Reed MD [facility] [place] [address] Social History Tobacco Use Types Packs/Day Years [...] IMG FILM LIBRARY ORD ERABLES [facility] [place], [place] documented in this encounter Visit Diagnoses Not on filedocumented in this encounter Care Teams Carrier Blower Relationship Specialty Start Date End Date Yamile De Leon APRN PCP - General Family Medicine 10/01/18 11/19/23 documented as of this encounter
--- OUTSIDE RECORDS SUMMARY | 2024-06-15 16:07 | XMS_ITS | Encounter Summary ---
Author Organization [place] [address] Care Team Providers Care Criminal Justice Social Worker Name Role Phone Yamile De Leon APRN Primary Care Provider [phone] Reason for Visit * Reason Onset Date Comments Other 02/03/2019 Home Health Encounter Details Date Type Department Care Team (Late st Contact Info) Description 02/03/2019 [place] [address] Crista Warner RN Other (Home Health) Social [...] signed by provider and faxed back to [facility] ( ). Form in Scan Doc. documented in this encounter Plan of Treatment Not on file documented as of this encounter Visit Diagnoses Not on filedocumented in this encounter Care Teams Criminal Justice Social Worker Relationship Specialty Start Date End Date Yamile De Leon APRN PCP - General Family Medicine 10/01/18 11/19/23 documented as of this encounter
--- OUTSIDE RECORDS SUMMARY | 2024-06-15 16:07 | XMS_ITS | Encounter Summary ---
Author Organization [facility] [place] [address] Care Team Providers Care De Alcoholizer Name Role Phone Yamile De Leon CARLOS Primary Care Provider [phone] Reason for Referral * Consultation (Routine) - Closed Specialty Diagnoses / Procedures Referred By Bruce t Referred To Contact Dermatology Diagnoses Breast lesion Whitney Vanegas PA [address] [place] [address] [facility] Dermatology [address] [place] [address] Referral ID Status Reason Start Date Expiration Date V isits Requested Visits Authorized [id number] Closed Consult, Test & Treat PCP Updated and/or Approved 01/02/2022 01/02/2023 12 12 Encounter Details Date Type Department Care Team (Late st Contact Info) Description 01/02/2022 Transcribe Orders eDH Incoming Referrals [phone] Whitney Vanegas PA [address] [place], [place] [address] Breast lesion Social History Tobacco Use Types [...] disorder documented in this encounter Care Teams De Alcoholizer Relationship Specialty Start Date End Date Yamile De Leon APRN PCP - General Family Medicine 10/01/18 11/19/23 documented as of this encounter
--- OUTSIDE RECORDS SUMMARY | 2024-06-15 16:07 | XMS_ITS | Encounter Summary ---
Author Organization [facility] [place] [address] Care Team Providers Care Insole Buffer Name Role Phone Yamile De Leon CORK PAINTER AND GRADER Primary Care Provider [phone] Reason for Visit * Reason Comments Foot Pain ORIF METATARSAL FX, EACH (WRVU 7.44) (Bilateral DOS 09/16/2018 Encounter Details Date Type Department Care Team (Late st Contact Info) Description 11/08/2018 2:30 PM EDT Office [place] [address] Cast discomfort Social History Tobacco Use Types [...] 3.24) performed by Aparna Reed MD at [facility] MAIN OR ??? PRO OPEN TREATMENT METATARSAL FRACTURE EACH Bilateral 09/16/2018 ORIF METATARSAL FX, EACH (WRVU 7.44) performed by Aparna Reed MD at [facility] MAIN OR ??? PRO OPEN TREATMENT TARSOMETATARSAL JOINT DISLOCATION Right 09/16/2018 OPEN TREAMENT TARSOMETATARSAL JOINT DISLOCATION (WRVU 10.7) performed by Aparna Reed MD at [facility] MAIN OR ??? PRO OPEN TX FRACTURE GREAT TOE/PHALANX/PHALANGES Right 09/16/2018 ORIF GREAT TOE (WRVU 7.44) performed by Aparna Reed MD at [facility] MAIN OR ??? PRO PERCUT TREAT METATARSAL FX Left 09/16/2018 PERCUTANEOUS PINNING, METATARSAL FX, EA. (WRVU 3.6) performed by Aparna Reed MD at [facility] MAIN OR ??? PRO PERCUT TREAT TAR-METATAR FOOT DISLOC Right 09/16/2018 PERCUTANEOUS PINNING, TARSOMETATARSAL JOINT DISLOCATION (WRVU 5.09) performed by Aparna Reed MD at [facility] MAIN OR ??? SHOULDER ARTHROSCOPY Bilateral [...] file Gets together: Not on file Attends denominational service: Not on file Active member of [...] ?? Chad Campo MD Orthopaedic Surgery Pager: [phone] ? * Leta Mitchell Jessica - 11/08/2018 [...] aftercare documented in this encounter Care Teams Insole Buffer Relationship Specialty Start Date End Date Yamile De Leon APRN PCP - General Family Medicine 10/01/18 11/19/23 documented as of this encounter
--- OUTSIDE RECORDS SUMMARY | 2024-06-15 16:07 | XMS_ITS | Encounter Summary ---
Author Organization [facility] Address [facility] Marizol [facility] [place] [address] Care Team Providers Care Industrial Coffee Grinder Name Role Phone Yamile De Leon APRN Primary Care Provider [phone] Reason for Visit * Reason Comments Foot Injury XR, ORIF Bilateral F oot Fx 09/16/18 (Lanettejrachael) Encounter Details Date Type Department Care Team (Late st Contact Info) Description 10/25/2018 11:30 AM EDT Office [place] [address] Aparna Reed MD [facility] [place] [address] S/P ORIF bilateral foot fractures, 09/16/18 (Kamilaajrachael) [...] been doing well at home, non-weight bearing. [facility] FollowUp 10/01/2018 Health in general Good Quality [...] (Brianna) documented in this encounter Care Teams Industrial Coffee Grinder Relationship Specialty Start Date End Date Yamile De Leon APRN PCP - General Family Medicine 10/01/18 11/19/23 documented as of this encounter
--- OUTSIDE RECORDS SUMMARY | 2024-06-15 16:07 | XMS_ITS | Encounter Summary ---
Author Organization [facility] Address [facility] [place] [address] Care Team Providers Care Boring Machine Set Up Operator Jig Name Role Phone Yamile De Leon CARLOS Primary Care Provider [phone] Reason for Visit * Consultation (Routine) - Closed Specialty Diagnoses / Procedures Referred By Bruce galo Referred To Contact Dermatology Diagnoses Breast lesion Whitney Vanegas PA [address] [place] [address] [facility] Dermatology [address] [place] [address] Referral ID Status Reason Start Date Expiration Date V isits Requested Visits Authorized [id number] Closed Consult, Test & Treat PCP Updated and/or Approved 01/02/2022 01/02/2023 12 12 Encounter Details Date Type Department Care Team (Late st Contact Info) Description 06/24/2022 4:00 PM EST Office Visit [facility] [address] [place] [address] Charlie Bowser MD [facility] DR [address] [place] [address] Prurigo nodularis (Primary Dx) Social History Tobacco [...] as of this encounter Progress Notes * hCarlie Bowser MD - 06/24/2022 4:00 PM EST [...] prurigo nodularis follow up []Note routed to school attendance secretary []Recall placed in scheduling system [x]Appointment scheduled at checkout Scribe attestation: TARI Felton has performed the documentation for this encounter in thepresence of and acting as a scribe for Charlie Bowser MD. I performed the above scribed service and agree with the accuracy of the documentation in this encounter. Reviewed and signed by: Charlie Bowser MD Dermatology [facility] Patient seen and evaluated with staff adult probation officer: Kirsten Lantigua MD Department of Dermatology [facility] * Kirsten Lantigua MD - 06/24/2022 4:00 [...] chronicus documented in this encounter Care Teams Boring Machine Set Up Operator Jig Relationship Specialty Start Date End Date Yamile De Leon APRN PCP - General Family Medicine 10/01/18 11/19/23 documented as of this encounter
--- OUTSIDE RECORDS SUMMARY | 2024-06-15 16:07 | XMS_ITS | Encounter Summary ---
Author Organization [facility] Address [facility] [place] [address] Care Team Providers Care Geometry Professor Name Role Phone Yamile De Leon APRN Primary Care Provider [phone] Encounter Details Date Type Department Care Team (Late st Contact Info) Description 12/20/2018 Ancillary Procedure Radiology Library at [facility] [place] [address] Aparna Reed MD [facility] [place] [address] Social History Tobacco Use Types Packs/Day Years [...] MD IMG FILM LIBRARY ORD ERABLES DH [place], [place] documented in this encounter Visit Diagnoses Not on filedocumented in this encounter Care Teams Geometry Professor Relationship Specialty Start Date End Date Yamile De Leon APRN PCP - General Family Medicine 10/01/18 11/19/23 documented as of this encounter
--- OUTSIDE RECORDS SUMMARY | 2024-06-15 16:07 | XMS_ITS | Encounter Summary ---
Author Organization [facility] Address [facility] [place] [address] Care Team Providers Care Commissioner Public Works Name Role Phone None Primary Care Provider Unavailabl e Encounter Details Date Type Department Care Team (Late st Contact Info) Description 09/20/2018 Orders [place] [address] Buffy Comer PA [facility] [place] [address] S/P ORIF bilateral foot fractures, 09/16/18 (Gitajn) [...] number below. Electronically signed by: Dileep Saunders [facility]([phone]), at 10/01/2018 9:51 AM Javad Urban MD IMG DX ORDERABLES documented in this encounter Visit Diagnoses Diagnosis S/P ORIF bilateral foot fractures, 09/16/18 (Gitajn) S/P ORIF bilateral foot fractures, 09/16/18 (Gitajn) documented in this encounter Care Teams Commissioner Public Works Relationship Specialty Start Date End Date None None PCP - General 09/14/18 09/30/18 documented as of this encounter
--- OUTSIDE RECORDS SUMMARY | 2024-06-15 16:07 | XMS_ITS | Encounter Summary ---
Author Organization [place] [address] Care Team Providers Care Global Position System Technician Name Role Phone Yamile De Leon APRN Primary Care Provider [phone] Reason for Referral * Consultation (Routine) - Closed Specialty Diagnoses / Procedures Referred By Bruce galo Referred To Contact Dermatology Diagnoses Breast lesion Yamile De Leon APRN [address] [place] [address] [facility] Dermatology [address] [place] [address] Referral ID Status Reason Start Date Expiration Date V isits Requested Visits Authorized [id number] Closed Consult, Test & Treat PCP Updated and/or Approved 10/11/2021 10/11/2022 6 6 Encounter Details Date Type Department Care Team (Late st Contact Info) Description 10/11/2021 Transcribe Orders eDH Incoming Referrals [phone] Yamile De Leon APRN [address] [place], [place] [id number] Breast lesion Social History Tobacco Use Types [...] disorder documented in this encounter Care Teams Global Position System Technician Relationship Specialty Start Date End Date Yamile De Leon APRN PCP - General Family Medicine 10/01/18 11/19/23 documented as of this encounter
--- OUTSIDE RECORDS SUMMARY | 2024-06-15 16:07 | XMS_ITS | Encounter Summary ---
Author Organization [facility] Address [facility] [place] [address] Care Team Providers Care Animal Services Officer Name Role Phone Yamile De Leon APRN Primary Care Provider [phone] Reason for Visit * Reason Comments Follow-up Encounter Details Date Type Department Care Team (Late st Contact Info) Description 11/08/2018 1:00 PM EDT Office [place] [address] German uG III, MD [facility] [place] [address] Abdirahman Enamorado MD Hospital discharge follow-up Social [...] - 11/08/2018 1:00 PM EDT NEUROLOGY CLINIC [facility] [place] [facility] [place] [address] Facsimile: Neurology Initial Visit: 11/08/2018 Patient name: Jenae La Date of : 1965 CC: Post hospital follow-up for possible seizure-like activity Jenae La is seen today for follow-up regarding possible seizure-like activity [facility]. HPI: Jenae La is a 53 y.o. female with past medical history significant for type 2 diabetes, fibromyalgia, chronic opiate use, obstructive sleep apnea (on CPAP at home) who was seen by the neurology consult service in August 2018 for possible seizure-like activity. Patient was admitted to the orthopedic service after transfer from [facility] for bilateral ankle fractures. Per description of her presentation to [facility] patient possibly had seizure-like activity [...] file Gets together: Not on file Attends latter day service: Not on file Active member of [...] MD Neurology Resident - PGY-3 Personal Pager: [phone] 11/08/2018 Neurology Attending Attestation I saw and [...] as documented. German Gu III, MD Pager: [phone] 3:14 PM 11/08/2018 documented in this encounter Plan of Treatment Not on file documented as of this encounter Visit Diagnoses Diagnosis Hospital discharge follow-up Other follow-up examination documented in this encounter Care Teams Animal Services Officer Relationship Specialty Start Date End Date Yamile De Leon APRN PCP - General Family Medicine 10/01/18 11/19/23 documented as of this encounter
--- OUTSIDE RECORDS SUMMARY | 2024-06-15 16:07 | XMS_ITS | Encounter Summary ---
Author Organization [facility] Address [facility] [place] [address] Care Team Providers Care Entry Level Business Analyst Name Role Phone Yamile De Leon APRN Primary Care Provider [phone] Encounter Details Date Type Department Care Team (Late st Contact Info) Description 03/30/2019 Telephone [place] [phone] Javad Urban MD [facility] DR ORTHOPAEDIC SURGERY [place] [id number] Social History Tobacco Use Types Packs/Day Years [...] care. Will fax signed paperwork back to [phone]. documented in this encounter Plan of Treatment Not on file documented as of this encounter Visit Diagnoses Not on filedocumented in this encounter Care Teams Entry Level Business Analyst Relationship Specialty Start Date End Date Yamile De Leon APRN PCP - General Family Medicine 10/01/18 11/19/23 documented as of this encounter
--- OUTSIDE RECORDS SUMMARY | 2024-06-15 16:07 | XMS_ITS | Encounter Summary ---
Author Organization [facility] [place] [address] Care Team Providers Care Clerical Car Checker Name Role Phone Yamile De Leon APRN Primary Care Provider [phone] Encounter Details Date Type Department Care Team (Late st Contact Info) Description 10/08/2018 Notes [place] [address] Mary Ellison PA [facility] DR ORTHOPAEDIC SURGERY [place] [id number] Social History Tobacco Use Types Packs/Day Years [...] NAME: Jenae La AGE: 53 y.o. MR#: [id number] DATE OF VISIT: 10/08/2018 CHIEF COMPLAINT: Hospital [...] other questions or concerns. [facility] Mary Ellison PA-C The above dictation was made with voice recogonition software documented in this encounter Plan of Treatment Not on file documented as of this encounter Visit Diagnoses Not on filedocumented in this encounter Care Teams Clerical Car Checker Relationship Specialty Start Date End Date Yamile De Leon APRN PCP - General Family Medicine 10/01/18 11/19/23 documented as of this encounter
--- OUTSIDE RECORDS SUMMARY | 2024-06-15 16:07 | XMS_ITS | Encounter Summary ---
Author Organization Replaced By [facility] Address [facility] [place] [address] Care Team Providers Care Food Beverage Attendant Name Role Phone Yamile De Leon APRN Primary Care Provider [phone] Encounter Details Date Type Department Care Team (Late st Contact Info) Description 11/22/2018 Ancillary Procedure Radiology Library at [facility] [place] [address] Aparna Reed MD [facility] [place] [address] Social History Tobacco Use Types Packs/Day Years [...] MD IMG FILM LIBRARY ORD ERABLES [facility] [place], [place] documented in this encounter Visit Diagnoses Not on filedocumented in this encounter Care Teams Food Beverage Attendant Relationship Specialty Start Date End Date Yamile De Leon APRN PCP - General Family Medicine 10/01/18 11/19/23 documented as of this encounter
--- OUTSIDE RECORDS SUMMARY | 2024-06-15 16:07 | XMS_ITS | Encounter Summary ---
Author Organization [facility] Address [facility] [place] [address] Care Team Providers Care Domestic Helper Name Role Phone Yamile De Leon CARLOS Primary Care Provider [phone] Encounter Details Date Type Department Care Team (Latest Contact Info) Description 10/01/2018 8:59 AM EDT - 10/01/2018 11:59 PM EDT Hospital Encounter XRay at [address] [place] [address] Javad Urban MD [facility] [place] [address] S/P ORIF bilateral foot fractures, 09/16/18 (Gitajn) [...] (Gitajn) documented in this encounter Care Teams Domestic Helper Relationship Specialty Start Date End Date Yamile De Leon CARLOS PCP - General Family Medicine 10/01/18 11/19/23 documented as of this encounter
--- OUTSIDE RECORDS SUMMARY | 2024-06-15 16:07 | XMS_ITS | Encounter Summary ---
Author Organization [facility] Address [facility] [place] [address] Care Team Providers Care Drill Bit Sharpener Name Role Phone Yamile De Leon APRN Primary Care Provider Reason for Visit * Reason Onset Date Comments Questions 10/27/2018 Encounter Details Date Type Department Care Team (Late st Contact Info) Description 10/27/2018 Telephone [place] [phone] Aparna Reed MD [facility] [place] [address] Questions Social History Tobacco Use Types Packs/Day [...] was the Surgeon?Brianna Best call back number: [phone] Best time to call back between 8:00 am & 5:00 pm: anytime Can we leave a message? yes What is the question: questions about her cast? Can she go into an air cast now? The cast she is innow are too heavy. She would like to transfer of care to [facility] sooner rather than later due to transportation issues. documented in this encounter Plan of Treatment Not on file documented as of this encounter Visit Diagnoses Not on filedocumented in this encounter Care Teams Drill Bit Sharpener Relationship Specialty Start Date End Date Yamile De Leon APRN PCP - General Family Medicine 10/01/18 11/19/23 documented as of this encounter
--- OUTSIDE RECORDS SUMMARY | 2024-06-15 16:07 | XMS_ITS | Encounter Summary ---
Author Organization [facility] Address [facility] [place] [address] Care Team Providers Care Website Developer Name Role Phone Yamile De Leon APRN Primary Care Provider [phone] Reason for Visit * Reason Comments Follow Up Surgery ORIF bilat foot fx, DOS 09.16.18 Encounter Details Date Type Department Care Team (Late st Contact Info) Description 10/01/2018 11:00 AM EDT Office [place] [phone] Mary Ellison PA [facility] DR ORTHOPAEDIC SURGERY [place] [phone] S/P ORIF bilateral foot fractures, 09/16/18 (Gitajn) [...] NAME: Jenae La AGE: 53 y.o. MR#: [id number] DATE OF VISIT: 10/01/2018 CHIEF COMPLAINT: Hospital [...] drenching night sweats. She has been using [place] for pain relief and using Lovenox for [...] (Gitajn) documented in this encounter Care Teams Website Developer Relationship Specialty Start Date End Date Yamile De Leon APRN PCP - General Family Medicine 10/01/18 11/19/23 documented as of this encounter
--- OUTSIDE RECORDS SUMMARY | 2024-06-15 16:07 | XMS_ITS | Encounter Summary ---
Author Organization [facility] Address [facility] [place] [address] Care Team Providers Care Road Repairer Name Role Phone Yamile De Leon APRN Primary Care Provider [phone] Encounter Details Date Type Department Care Team (Late st Contact Info) Description 10/21/2018 Orders [place] [address] Aparna Reed MD [facility] [place] [address] S/P ORIF bilateral foot fractures, 09/16/18 (Brianna) [...] internal fixation of a Lisfranc fracture-dislocation with noacw-zol-ythus constructs traversing the first and second tarsometatarsal joints and 3 Yaw wires traversing the third through fifth tarsometatarsal joints. Also status post slvxyeezc-rfp-ktrav fixation of an intra-articular first proximal phalangeal [...] fractures and a Lisfranc fracture-dislocation with a pljsm-sgy-gjxdg construct traversing the fourth metatarsal base fracture [...] internal fixation of a Lisfranc fracture-dislocation with umwpa-jvw-llkhs constructs traversing the firstand second tarsometatarsal joints and 3 Yaw wires traversing the thirdthrough fifth tarsometatarsal joints. Also status post uxoqofuvi-inf-lagogrhnroexi of an intra-articular first proximal phalangeal base [...] neck fractures and a Lisfranc fracture-dislocation with tkqtbi-dai-zqpkz construct traversing the fourth metatarsal base fracture [...] Electronically signed by: Gretchen Odell [facility] ([phone]),at 10/25/2018 3:36 PM Aparna Reed MD IMG DX ORDERABLES documented in this encounter Visit Diagnoses Diagnosis S/P ORIF bilateral foot fractures, 09/16/18 (Brianna) S/P ORIF bilateral foot fractures, 09/16/18 (Brianna) documented in this encounter Care Teams Road Repairer Relationship Specialty Start Date End Date Yamile De Leon APRN PCP - General Family Medicine 10/01/18 11/19/23 documented as of this encounter
--- OUTSIDE RECORDS SUMMARY | 2024-06-15 16:07 | XMS_ITS | Encounter Summary ---
Author Organization [facility] Address [facility] [place] [address] Care Team Providers Care Diesel Lube Tech Name Role Phone None Primary Care Provider Unavailabl e Reason for Visit * Auth/Cert Specialty Diagnoses / Procedures Referred By Contac t Referred To Contact Diagnoses Fracture of unspecified tarsal bone(s) of unspecified foot, initial encounter for closed fracture CLOSED HEAD INJURY, FOOT BONE FX'S -CONFUSED Procedures EMERGENCY IPI Referral ID Status Reason Start Date Expiration Date Visits Re quested Visits Authorized [id number] 1 1 Encounter Details Date Type Department Care Team (Latest Contact Info) Description 09/14/2018 7:05 PM EDT - 09/20/2018 5:09 PM EDT Hospital Encounter [address] [place] [id number] Javad Urban MD [facility] [place] [address] S/P ORIF bilateral foot fractures, 09/16/18 (Gitajn) [...] Jenae La Patient Age: 53 y.o. Language: Lebanese Race: White Ethnicity: Not nor Admit date: 09/14/2018 Discharge date and time: 09/20/2018 Attending Physician: Javad Urban MD Discharge Physician: Javad Urban MD Follow-up Recommendations for Providers: See discharge instructions for additional details. Future Appointments Date Time Provider Department Center 10/01/2018 10:[address] [facility] DX ROOM 1 Xray Le[facility] Rad Clin 10/01/2018 11:00 AM Mary Ellison PA Leb Ortho 3C [facility] 11/08/2018 1:00 PM Abdirahman Enamorado MD Leb Neuro [facility] Inpatient Provider Contact Information: Javad Urban MD Orthopedics: [phone] After hours and weekends, call [facility] Taxi Truck Driver, , and have the Orthopedic resident paged. [...] the orthopaedics service as a transfer from [facility] for operative management of bilateral [...] multiple times, leading her to present to [facility] on 09/12/2018 for evaluation. ?? Initial work-up at [facility] revealed sepsis secondary to suspected community- acquired pneumonia, mild acute exacerbation of COPD, a closed head injury with postconcussive syndrome, multiple bilateral foot fractures, and MANUEL, resulting in hospital admission. Upon presentation to the [facility] ED, her and herjake reported instances of trembling and fecal incontinence. She was observed to be confused andhave unilateral arm and lip twitching in the ED. A lumbar puncture was performed for suspicion of meningitis, but this was reported to be negative. Mrs. aL was admitted to the ICU, where empiricazithromycin [...] no active bleeding observed. General Surgery at [facility] evaluated the patient, and felt no further action was required besides outpatient follow up. ?? Upon arrival to [facility], Mrs. La reports moderate pain in her [...] Orthopedic Surgery Service as a transfer from [facility] for definitive operative management of bilateral [...] demonstrated seizure-like activity during her presentation at [facility], thus would recommend consulting Neurology to determine??the need for an EEG to rule out sub-clinical seizure and determine the need to continue keppra. The patient's revised cardiac risk index is a Class I risk (0 points) with a 3.9% 30 day risk of , ND, or cardiac arrest. No further cardiac work [...] a transfer to the orthopedic service from [facility] for bilateral complex foot fractures. ?? [...] number below. Electronically signed by: Sheila Joaquin [facility] ([phone]), at 09/14/2018 4:41 PM Xr Foot Min [...] number below. Electronically signed by: Sheila Joaquin [facility] ([phone]), at 09/16/2018 3:47 PM Pending Studies and Lab Data at Discharge: * No orders in the log * Transfusions: No Discharge Conditions/Prognosis: Stable, awake, and alert. Mobilizing as noted above, pain controlled on oral medications. Discharge to: Home HOME HEALTH CARE AGENCY: ??[facility] ?? PHONE: [phone] FAX: [phone] Updated Allergies/ADRs: Allergies Allergen Reactions ??? Sulfa [...] bowel movement. You can also take an eozt-gcz-blfkmrz medication, Miralax if needed to combat constipation. [...] skin and wound problems. Call your doctor ([phone]) if you develop: 1. Fever greater than [...] 1. You will have follow-up appointments at [facility] as indicated in Future Appointment and Orders. You will have an xray prior to those appointments so please come to Radiology, desk 3T, 1 hour BEFORE your appointment for those x-rays. Future Appointments Date Time Provider Department Center 10/01/2018 10:[address] [facility] DX ROOM 1 Xray Leb [facility] Clin 10/01/2018 11:00 AM Mary Ellison PA Leb Ortho 3[facility] 11/08/2018 1:00 PM Abdirahman Enamorado MD Leb Neuro [facility] If you have questions or concerns: [...] Provider Department Dept Phone 10/01/2018 10:[address] [facility] DX ROOM 1 XRay at [place] Arrive at: Wholesale Account Manager Area [phone] Please go to Wholesale Account Manager Area 3T ([place] Location). 10/01/2018 11:00 AM Mary Ellison PA Orthopaedics at [place] Arrive at: Wholesale Account Manager Area 3C [phone] 11/08/2018 1:00 PM Abdirahman Enamorado MD Neurology at [place] Arrive at: Wholesale Account Manager Area 3C [phone] Future Orders Complete By Expires Durable Medical Equipment Order [EQ148 Custom] As directed Process Instructions: Scheduling Instructions: Comments: Non weight bearing bilateraly Questions: Name/Description of requested item: Drop arm commode Size requested: 20 Vendor Name/Contact information: [facility] Durable Medical Equipment Order [EQ148 Custom] As [...] Scheduling Instructions: Comments: Jenae [address] [facility] [phone] (home) No relevant phone numbers on file. Diagnosis:Bilateral fractures both feet requiring surgery Non weight barring Patient's: Hgt: 5'1 Wgt: 183 VENDOR: [employer] Ordering: Drop arm commode needed ARABELLA is required for discharge Questions: Name/Description of requested item: Drop arm Commode Size requested: Standard Vendor Name/Contact information: [employer] Referral to Home Health - at DISCHARGE [[id number] CPT(R)] As directed Process Instructions: Scheduling Instructions: Comments: DOCUMENTATION FOR VNA SERVICES (INCLUDING THOSE PATIENTS WITH MEDICARE COVERAGE REQUIRING HOME VNA SERVICES AND/OR HOSPICE SERVICES) PATIENT'S LOCATION: [facility] [address] (home) Cell: No relevant phone numbers on file. Hazardous Material Specialist's Name: herself with 's assist In discussion with the attending physician, it is certified that this patient is under their care and that they, or a Nurse Practitioner,Clinical Nurse specialist or Physician Clean Up Person who is working directly with them, had [...] continue rehab for managing ADL's. Eval for STAFF EDUCATOR: HOME HEALTH CARE AGENCY: [facility] PHONE: [phone] FAX: [phone] Start of care: 09/21/18 FOR MEDICARE ONLY: [...] this patient's PCP: LILLY Gaitan [address] [facility] / [place] [address] All A agencies which cover the area of patient's residence have been reviewed, either verbally irasema writing, and patient/family have chosen the home health care agency noted Questions: Agency name and contact information: [facility] Patient location post discharge: home What [...] information: Harriet Primary Care Provider: LILLY Gaitan [phone] Discharge References/Attachments None documented in this encounter [...] bowel movement. You can also take an mvbn-xnn-uidtdhk medication, Miralax if needed to combat constipation. [...] skin and wound problems. Call your doctor ([phone]) if you develop: 1. Fever greater than [...] 1. You will have follow-up appointments at [facility] as indicated in Future Appointment and Orders. You will have an xray prior to those appointments so please come to Radiology, desk 3T, 1 hour BEFORE your appointment for those x-rays. Future Appointments Date Time Provider Department Center 10/01/2018 10:[address] [facility] DX ROOM 1 Xray [facility] Rad Clin 10/01/2018 11:00 AM Mary Ellison PA Leb Ortho [facility] 11/08/2018 1:00 PM Abdirahman Enamorado MD Leb Neuro [facility] If you have questions or concerns: Thursday through Thursday, 8 AM - 5 PM, please call aJvad Urban MD, 's office at . If [...] ) Service Ortho Pager # Check daily [facility] is unable to supply the commode and the slide board . This card writer hand called several places andfound slide board at [facility] and [facility] as well that is being serviced [...] discharge planning. Ivette Álvarez RN CM Pager [phone] * Ivette Álvarez RN - 09/20/2018 12:52 PM EDT The patient/uniforms sales representative has been provided a list of /DME vendors which serve their preferred geographic area. A letter describing our affiliations was reviewed with them and they were educated about their right to choose where referrals are placed. Patient requests referral to [facility] Expected date of discharge: 09/20/18 Referral routed to the Thread Puller for matching with agency/vendor and to provide any required information. Ivette Álvarez [facility] Beeper #[phone] * Ivette Álvarez RN - 09/20/2018 11:14 AM EDT Office of Care Managment (OCM /Caremanger (CM)/ Discharge planning ) Service Ortho Pager # check daily Patient is medically ready to go . Made call to [facility] to verify delivery of Wheelchair , slide board and drop arm commode for today (family said they can pick the items up on the way home ) Thalia from [facility] is checking with [facility] office to make sure items are available for them. Plan: CM will continue to follow for coordination of care and to facilitate discharge planning. ? Ivette Álvarez RN CM Pager [phone] * Ori Santos MD - 09/20/2018 5:39 [...] Pain well controlled. [facility]. Discharge likely today, dependent on DME delivery to [facility] home. Activity: NWB BLE. Strict elevation in splints. Closure: Sutures (remove 10-14 days) Dressing: DSD, splints. Drain: None Anticoagulation: Lovenox for 30 days Antibiotics: Empiric Ceftriaxone/Azithromycin for suspected CAP Consults: Medicine, Neuro Dispo: Like home today Follow-up: As scheduled Ori Santos MD 09/20/2018 Future Appointments Date Time Provider Department Center 10/01/2018 10:[address] [facility] DX ROOM 1 Xray Le[facility] Rad Clin [...] with Med Team re pt DC today( [id number]). Pt to dc Thursday * Sanket Freeman [...] Time Provider Department Center 10/01/2018 10:[address] [facility] DX ROOM 1 Xray Le[facility] Rad Clin [...] a transfer to the orthopedic service from [facility] for bilateral complex foot fractures. INTERVAL [...] L Elbow flexion 5/5 R, 5/5 L Resident Manager LE: Deferred due to her pain Sensation: [...] a transfer to the orthopedic service from [facility] for bilateral complex foot fractures. Patient [...] - PGY-3 General Neurology Consults Team Pager #[phone] 09/17/18 Associated attestation - Jose Swan MD - 09/17/2018 4:41 PM EDT I have seen and examined Jenae La with the neurology team on 09/17/2018 and agree with the assessment and plan as below. Face twitching. 53 Y F with history of DJD spine, DM, fibromyalgia being seen by Neurologist at [facility] Episodes of left sided facial twitching Stopped taking gabapentin recently due to side effects. Low suspicion for these being seizures. AEDs not needed at this time Recommended lower doses of gabapentin which she doesn't wish to take. Outpatient neurology followup Jose Swan MD Department of Neurology [facility] * Sanket Freeman MD - 09/17/2018 [...] Department of Orthopaedics 09/17/18 * Davin Ann, AUTOMATIC BEADING LATHE OPERATOR - 09/16/2018 11:22 PM EDT Pt refused [...] original note were not included. Patient Name: eJnae La Patient Age: 53 y.o. Birthdate: 1965 Admit date: 09/14/2018 Attending Physician: Javad Urban MD .. Skin: * Aries Lyon MD - 09/16/2018 8:31 AM EDT Internal Medicine Consult Note (#[id number]) Progress Note Patient info: Name: Jenae La : 1965 PCP: LILLY Gaitan PCP phone number: [phone] Date of Admission: 09/14/2018 ( Hospital Day [...] Orthopedic Surgery Service as a transfer from [facility] for operative management of bilateral complex [...] in the last 7068 hours. Invalid input(s): [id number] Heme: No results for input(s): LDH, HAPTOGLOBIN, URICACID in the last 168 hours. ABG: ABG (Arterial Blood Gas) No results found for: PHART, PO2ART, ZIZ5CFG, PMH0MHT Microbiology: Site Date and Time Obtained Result [...] Orthopedic Surgery Service as a transfer from [facility] for definitive operative management of bilateral [...] demonstrated seizure-like activity during her presentation at [facility], thus would recommend consulting Neurology to determine the need ace EEG to rule out sub-clinical seizure and determine the need to continue keppra. The patient's revised cardiac risk index is a Class I risk (0 points) with a 3.9% 30 day risk of , ND, or cardiac arrest. No further cardiac work [...] Lyon MD, PGY-3 09/16/2018 Medicine Consult # [id number] Associated attestation - Chris Stahl DO - [...] today vs tomorrow pending scheduling availability. Appreciate [facility] medicine recs. - Neuro consult today - Remain NPO for possible OR today - UA today - NWB B/l LE - Pain control: Oral multimodal pain medication - Discharge planning: likely rehab per PT - F/u TBD Sanket Freeman MD PGY-2 Orthopaedics * Davin Ann, AUTOMATIC BEADING LATHE OPERATOR - 09/15/2018 11:00 PM EDT Pt had Nausea, NIV held this evening. * Kathrin Madsen RN - 09/15/2018 2:05 PM EDT Based on discussions with the multi-disciplinary healthcare team, the patient would benefit from snf/swing/acute level of care at discharge. ?? I have met with the patient/uniforms sales representative to discuss discharge planning needs. I have provided the [facility], Office of Care Management letter from the Wagon Driver pertaining to rehab referrals. I have also provided a letter describing our affiliations within the [facility] and educated them about their right to choose where referrals are placed. ?? I reviewed the different levels of rehab including SNF, swing, acute and LTAC with the patient/uniforms sales representative. ?? The patient/uniforms sales representative has been provided a list of facilities within their preferred geographic area. ?? I have requested that the patient/uniforms sales representative provide at least three choices for referral. ?? The patient/uniforms sales representative have requested referrals to: 2.[facility] [address] [place] [id number] ?? [phone] [facility] [address] [place] [address] ?? [phone] ?? Expected date of discharge: 09/17/18 Note routed to Thread Puller who will communicate referrals to facilities and [...] % Laboratory: No results found for: PHART, MKG8CVX, PO2ART, HDF8PDD, BEART Assessment: Called to set pt up [...] Urban PCP: LILLY Gaitan PCP phone #: [phone] Chief Complaint: Foot pain History of Present Illness: Jenae La is a 53 y.o woman with HTN, HLD, Type II DM, LORRI on CPAP,fibromyalgia with chronic opioid use, and GERD who was admitted to the Orthopedic Surgery Service as a transfer from [facility] for operative management of bilateral complex foot fractures s/p trauma (dropping firewood on her feet) on the evening of 09/11/18 causing bilateral immediate pain, swelling, andbruising making it difficult to ambulate and leading to falls c/b striking her head multiple times.It was with these symptoms that she presented to [facility] on 09/12/18. During her initial presentation in the [facility] ED, the patient reported instances of trembling and fecal incontinence. She was noted to be confused with lip and unilateral arm twitching. CT head was negative. CT C-spine was negative. CTchest demonstrated 6.8mm ground glass nodule in the RUL and b/l ground glass opacities. An LP was performed for suspicion of meningitis that was reportedly negative, CSF cultures were reportedly negative. At [facility], she was found to have post-concussive [...] hours of admission. She was admitted to [facility] from 09/12/18 - 09/14/18. Upon arrival at [facility] on 09/15/18,the patient noted moderate bilateral pain [...] Illicits: Denies Living Situation: Lives with in [place] Vitals: Last value Range last 24 hrs [...] in the last 7068 hours. Invalid input(s): [id number] Heme: No results for input(s): LDH, HAPTOGLOBIN, [...] Orthopedic Surgery Service as a transfer from [facility] for definitive operative management of bilateral [...] demonstrated seizure-like activity during her presentation at [facility], thus would recommend consulting Neurology to determine the need for an EEG to rule out sub- clinical seizure and determine the need to continue keppra. The patient's other chronic medical conditions remains stable at this time. See rest of plan below: The patient's revised cardiac risk index is a Class I risk (0 points) with a 3.9% 30 day risk of , ND, or cardiac arrest. No further cardiac work [...] Internal Medicine, PGY- 3 Medicine Consult Pager #[phone] Associated attestation - Chris Stahl DO - [...] female who presented as a transfer from [facility] for operative management of the complex foot fractures due to trauma on 09/11/2018. Her hospital course at [facility] was complicated by an ICU admission due to community-acquired pneumonia, as well as possible focal seizures and postconcussive syndrome. Here at [facility] patient has been clinically stable from pulmonary [...] will continue to follow along with you. Crhis Stahl, DO Internal Medicine 09/15/2018 3:25 PM [...] the orthopaedics service as a transfer from [facility] for operative management of bilateral [...] multiple times, leading her to present to [facility] on 09/12/2018 for evaluation. Initial work-up at [facility] revealed sepsis secondary to suspected community- acquired pneumonia, mild acute exacerbation of COPD, a closed head injury with postconcussive syndrome, multiple bilateral foot fractures, and MANUEL, resulting in hospital admission. Upon presentation to the [facility] ED, her and cristian reported instances [...] no active bleeding observed. General Surgery at [facility] evaluated the patient, and felt no further action was required besides outpatient follow up. Upon arrival to [facility], Mrs. La reports moderate pain in her [...] Situation: Lives with and multiple pets in [place], [place]. Review of Systems: As per HPI, [...] direct admit to the Orthopaedics service from [facility] for definitive management of bilateral complex [...] AM EDTAssociated Order(s): EEG AWAKE, ASLEEP, DROWSY [facility] Department of Neurology Inpatient EEG Report Name of the Patient: Jenae La Date of : 1965 Date of Service: 09/17/2018 Referring physician: Dr. Abdirahman Enamorado BRIEF HISTORY: Jenae La is a 53 y.o. patient with episodes of tremors at home and witnessed facial and arm twitching at [facility] (witnessed by nursing). Also has hit [...] channel digitized electroencephalogram was performed in the [facility] Clinical Neurophysiology Laboratory. The 10/20 international system of electrode placement was used and bipolar and referential electrode montages were recorded. In addition to EEG the patient was monitored for EKGand lateral/vertical eye movements. Video was recorded during the session. The duration of the recording was 30 minutes. MANAGER MANAGEMENT'S REPORT: Performed by: RR/GERHARD Patient was not [...] Angel MD Clinical Neurophysiology Fellow Personal Pager #[phone] Epilepsy Neurology #[phone] Neurology Attending I have personally reviewed the EEG, and I agree with the details as written. The above report was formulated in discussion with me at the time of EEG reading, and I agree with it as documented. Jose Singer MD [place] [address] Pager: [phone], #[phone] Email: [email or web address] documented in this encounter Miscellaneous Notes * [...] quit. She is not interested in receiving [facility] Tobacco Cessation packet. A: Pt refused consult. P: Encouraged patient to reach out to PCP for nicotine inhaler prescription. Dimitrios Valle, MSN, RN-, [facility] Tobacco Call Or Contact Centre Coach [facility] Pager #[phone] * Plan of Care - Stacey Duenas [...] I have spoken with Thalia from the [place] office and she states shecannot get this DME on a Thu afternoon for Sat am but can do this for a Mon d/c. Pt states there jessy branch in [facility] that she has used in the past. Pt requests a referral to [facility] for an RN for skilled assessments, PT, OT, and steve for STAFF EDUCATOR. Pt requests Ofelia Barger if possible. I [...] NO xxx Lauren Perales, PT, DPT Pager: [phone] Inpatient Physical Therapy 2017 PT Evaluation Code [...] (Group);Wheelchair Training/Management (Group) Bed Mobility Assessment/Treatment Scoot/Bridge Mercer (Bed Mobility) conditional independence Dgpjoj-bv-Pfx Mercer (Bed Mobility) conditional independence Byc-yo-Jwuzok Mercer (Bed Mobility) conditional independence Safety Issues (Bed Mobility) decreased use of legs for bridging/pushing Impairments (Bed Mobility) pain;ROM (range of motion) decreased Comment (Bed Mobility) incr time/effort to/from EOB but no physical assistance, NWB maintained throughout, good SLR b/l LEs Transfer Assessment/Treatment Bed-Chair Mercer (Transfers) supervision required;conditional independence (initial supervision progressing to ind) Ame-Ajeib-Blv Assistive Device (Transfers) slide board Mercer (Toilet Transfers) supervision required;conditional independence Assistive Device [...] with assist, home with home health(PT) Pager: [phone] Ori Bates OT 09/17/2018 Occupational Therapy Rehabilitation [...] pain;ROM (range of motion) decreased;strength decreased Scoot/Bridge Mercer (Bed Mobility) conditional independence Wgbzgk-jp-Iay Mercer (Bed Mobility) conditional independence Flj-pr-Evupfa Mercer (Bed Mobility) conditional independence Comment (Bed Mobility) Pt performeed bed mobility w/ increased time and pain. Transfer Assessment/Treatment Mercer (Toilet Transfers) supervision required;conditional independence Impairments (Transfers) pain;ROM (range of motion) decreased;strength decreased Vkm-Hwuky-Ccc Assistive Device (Transfers) slide board Bed-Chair Mercer (Transfers) supervision required;contact guard assist Comment (Transfers) [...] Body Dressing Assessment/Training Assistive Devices (LB Dressing) content developer Position (LB Dressing) sitting Mercer Level (LB Dressing) conditional independence Impairments (LB Dressing) pain;ROM (range of motion) decreased;strength decreased Comment (LB Dressing) Pt donned pants independently, w/ slight increase in time. Toileting Assessment/Training Position (Toileting) sitting Mercer Level (Toileting) conditional independence Impairments (Toileting) ROM [...] a transfer to the orthopedic service from [facility] for bilateral complex foot fractures. Per discussion with the consulting provider, patient was initially admitted to [facility] for bilateral foot fractures. This was in the setting of multiple falls in the previous days leading up to her admission. She was also noted to strike her head multiple times during these falls. In conversation withthe patient's at [facility], there was some discussion of some [...] L Elbow flexion 5/5 R, 5/5 L Resident Manager LE: Deferred due to her pain Sensation: [...] Negative mcL Appearance UA Clear Clear Spec [place] UA 1.012 1.002 - 1.030 Color UA [...] a transfer to the orthopedic service from [facility] for bilateral complex foot fractures. Discussion with Jenae and her significant other about her initial presentation makes us less concerned for seizure activity. However, it is hard to say what the nurses at [facility] actually saw but they describe twitching [...] - PGY-3 General Neurology Consults Team Pager #[phone] 09/16/18 Associated attestation - German Gu III, [...] as documented. German Gu III, MD Pager: [phone] 7:42 AM 09/17/2018 * Op Note - Aparna Reed MD - 09/16/2018 2:02 PM EDT [facility] Operative Note Patient Name: Jenae La : [id number] MR#: [id number] Case Date: 09/16/2018 Surgeon: Surgeon(s) and Role: [...] 2nd metatarsal fracture, left 3rd metatarsal fracture, [id number] metatarsal fracture, left cuboid fracture. Procedure(s) (LRB): [...] the second tarsometatarsal joint. We used a heyyi-ka-dskea clamp to reduce it, and then fixed [...] the articular surface. We then used a [place] to bring the impacted articular surface down [...] Reed MD - 09/16/2018 1:54 PM EDT [facility] Operative Note- Left foot This patient underwent bilateral procedures. This operative note is for the left foot. Patient Name: Jenae La : [id number] MR#: [id number] Case Date: 09/16/2018 Surgeon: Surgeon(s) and Role: [...] 2nd metatarsal fracture, left 3rd metatarsal fracture, [id number] metatarsal fracture, left cuboid fracture. ?? Procedure(s) [...] fractures and dislocations. She was seen at [facility] and transferred to [facility] for further care. We discussed the risks [...] third metatarsal fracture was exposed using a [place]. A dkmru-td-kciba clamp was used to control the distal [...] toe extensors. Fracture was exposed using a [place]. A ppqxm-av-azazc clamp was used to control the distal [...] Implant Name Type Inv. Item Serial No. Lipcoat Sprayer Lot No. LRB No. Used Action PIN,KWIRE,TROC 1 ED,NS,[id number] ([id number]) (AutoReq) - [id number] IMPLANTS PIN,KWIRE,TROC 1 ED,NS,[id number] ([id number]) (AutoReq) [facility] Right 1 Implanted and Explanted SCREW,CRTX,STAP,T8,2.4X16MM ([id number]) - [id number] IMPLANTS SCREW,CRTX,STAP,T8,2.4X16MM ([id number]) [facility] Right 1 Implanted SCREW,CRTX,STAP,T8,2.4X26MM ([id number]) - [id number] IMPLANTS SCREW,CRTX,STAP,T8,2.4X26MM ([id number]) [facility] Right 1 Implanted SCREW,CRTX,STAP,T8,2.4X22MM ([id number]) - [id number] IMPLANTS SCREW,CRTX,STAP,T8,2.4X22MM ([id number]) [facility] Right 1 Implanted SCREW,SLFTP,LCK,STAR,2.4X12MM ([id number]) - [id number] IMPLANTS SCREW,SLFTP,LCK,STAR,2.4X12MM ([id number]) [facility] Right 1 Implanted SCREW,LCK,STAP,STAR,2.4X6MM ([id number]) - [id number] IMPLANTS SCREW,LCK,STAP,STAR,2.4X6MM ([id number]) [facility] Right 1 Implanted SCREW,LCK,STAP,STAR,2.4X18MM ([id number]) - [id number] IMPLANTS SCREW,LCK,STAP,STAR,2.4X18MM ([id number])[facility] Right 1 Implanted SCREW,CRTX,STAP,STRDRV,2X9MM ([id number]) - [id number] IMPLANTS SCREW,CRTX,STAP,STRDRV,2X9MM (5424767)[facility] Right 1 Implanted SCREW,CRTX,STAP,STAR,2X24MM (6833284) - [id number] IMPLANTS SCREW,CRTX,STAP,STAR,2X24MM ([id number]) [facility] Right 1 Wasted SCREW,CRTX,STAP,STAR,2X28MM ([id number]) - [id number] IMPLANTS SCREW,CRTX,STAP,STAR,2X28MM (1225644) [facility] Right 1 Implanted SCREW,CRTX,STAP,STAR,2X18MM (9116929) - [id number] IMPLANTS SCREW,CRTX,STAP,STAR,2X18MM (3267462) [facility] Right 1 Implanted SCREW,LCK,STAP,STAR,2X14MM ([id number]) - [id number] IMPLANTS SCREW,LCK,STAP,STAR,2X14MM (1183723) [facility] Right 1 Implanted SCREW,LCK,STAP,STAR,2X18MM ([id number]) - [id number] IMPLANTS SCREW,LCK,STAP,STAR,2X18MM (4782367) [facility] Right 1 Implanted PLATE,LCP,7H,2.0X52MM ([id number]) - [id number] IMPLANTS PLATE,LCP,7H,2.0X52MM (9699989) [facility] Right 1 Implanted PLATE,CNDYLR,LCP,7H,2.4MM (3490063) (AutoReq) - [id number] IMPLANTS PLATE,CNDYLR,LCP,7H,2.4MM (4658030) (AutoReq) [facility] Right 1 Implanted BONE,CRUSHED,CANCELLOUS,10CC (2100363) (AutoReq) - [id number] IMPLANTS BONE,CRUSHED,CANCELLOUS,10CC([id number]) (AutoReq) [facility] [id number] Right 1 Implanted PIN,KWIRE,TROC 1ED,NS,[id number] ([id number]) - [id number] IMPLANTS PIN,KWIRE,TROC 1ED,NS,[id number] (0381766) [facility] Right 2 Implanted and Explanted PIN,KWIRE,PLAIN,2,0.544J4AW,NS (1532516) - [id number] IMPLANTS PIN,KWIRE,PLAIN,2,0.769H9IN,NS (2034758) [employer] [facility] Left 3 Implanted PLATE,LCP,CNDYLR,7H-SHFT,2MM (8878587) - [id number] IMPLANTS PLATE,LCP,CNDYLR,7H-SHFT,2MM (7520502)[facility] Left 1 Implanted SCREW,LCK,STAP,STAR,2X12MM (6009636) - [id number] IMPLANTS SCREW,LCK,STAP,STAR,2X12MM (7289929) [facility] Left 1 Implanted SCREW,LCK,STAP,STAR,2X10MM ([id number]) - [id number] IMPLANTS SCREW,LCK,STAP,STAR,2X10MM (6542085) [facility] Left 1 Implanted SCREW,CRTX,STAP,STAR,2X12MM (5343509) - [id number] IMPLANTS SCREW,CRTX,STAP,STAR,2X12MM (9264862) [facility] Left 1 Implanted SCREW,CRTX,STAP,STAR,2X14MM (8854161) - [id number] IMPLANTS SCREW,CRTX,STAP,STAR,2X14MM (8675882) [facility] Left 1 Implanted SCREW,CRTX,STAP,STAR,2X14MM ([id number]) - [id number] IMPLANTS SCREW,CRTX,STAP,STAR,2X14MM (6056281) [facility] Right 1 Implanted SCREW,VA,LCK,SLFTP,T6,2X22MM (6894634) - [id number] IMPLANTS SCREW,VA,LCK,SLFTP,T6,2X22MM ([id number])[employer] Right 1 Implanted SCREW,VA,LCK,SLFTP,T6,2X18MM (3498500) - [id number] IMPLANTS SCREW,VA,LCK,SLFTP,T6,2X18MM ([id number])[employer] Right 1 Implanted SCREW,VA,LCK,SLFTP,T6,2X16MM (6252806) - [id number] IMPLANTS SCREW,VA,LCK,SLFTP,T6,2X16MM (7083678)[facility] Right 1 Implanted SCREW,CRTX,STAP,STAR,2X16MM (7282644) - [id number] IMPLANTS SCREW,CRTX,STAP,STAR,2X16MM ([id number]) [facility] Right 1 Implanted SCREW,CRTX,STAP,STAR,2X12MM ([id number]) - [id number] IMPLANTS SCREW,CRTX,STAP,STAR,2X12MM (1427470) [facility] Right 1 Implanted SCREW,CRTX,STAP,STRDRV,2X10MM ([id number]) - [id number] IMPLANTS SCREW,CRTX,STAP,STRDRV,2X10MM (0913436) [facility] Left 1 Implanted GUIDEW,THRD,1.4I715ZA ([id number]) - [id number] IMPLANTS GUIDEW,THRD,1.5U939WW (1365477) [facility]; [facility] Right 3 Implanted Number of fracture regions: [...] or concerns. Lauren Perales PT, DPT Pager: [phone] 09/16/18 Inpatient Rehabilitation Department * Plan of [...] up as able/appropriate. Ori Valencia OT Pager: [phone] * Initial Assessments - Kathrin Madsen RN [...] MEDICAID [place] Prescription Coverage: [facility] Other: Primary Care Provider: LILLY Gaitan [phone] Patient/Caregiver Goals of Treatment: agreed to go [...] kind. She agrees to snf referrals, #[facility], [facility]. Referral submitted. Plan: snf vs swing vs acute. A member of the Care Management team will continue to monitor progress, follow for continuity of care and assist with transition of care planning. Kathrin Madsen RN Pager: [phone] * Plan of Care - Horace Beckman [...] O RDERABLES [facility] [place] [address] * POCT Glucose (09/20/2018 8:02 AM EDT) Glucose, POC 167 65 - 199 mg/dL [facility] Comment: Supplemental ranges: <140 mg/dL before meals <180 mg/dL all other times of the day Blood specimen (specimen) 09/20/2018 8:02 AM EDT 09/20/2018 8:02 AM EDT Javad Urban MD POINT OF CARE TEST O RDERALISSETT Performing Organization Address [facility] Co de Phone Number [facility] [place] [address] * POCT Glucose (09/20/2018 4:03 AM EDT) Glucose, POC 127 65 - 199 mg/dL [facility] Comment: Supplemental ranges: <140 mg/dL before meals <180 mg/dL all other times of the day Blood specimen (specimen) 09/20/2018 4:03 AM EDT 09/20/2018 4:03 AM EDT Javad Urban MD POINT OF CARE TEST O JONY Performing Organization Address [facility] Co de Phone Number [facility] [place] [address] * POCT Glucose (09/19/2018 11:45 PM EDT) Glucose, POC 146 65 - 199 mg/dL [facility] Comment: Supplemental ranges: <140 mg/dL before meals <180 mg/dL all other times of the day Blood specimen (specimen) 09/19/2018 11:45 PM EDT 09/19/2018 11:45 PM EDT Javad Urban MD POINT OF CARE TEST O RDERALISSETT Performing Organization Address [facility] Co de Phone Number [facility] [place] [address] * POCT Glucose (09/19/2018 7:26 PM EDT) Glucose, POC 149 65 - 199 mg/dL [facility] Comment: Supplemental ranges: <140 mg/dL before meals <180 mg/dL all other times of the day Blood specimen (specimen) 09/19/2018 7:26 PM EDT 09/19/2018 7:26 PM EDT Javad Urban MD POINT OF CARE TEST O RDSILVIO Performing Organization Address City/[facility]/ZIP Co de Phone Number [facility] [place] [address] * POCT Glucose (09/19/2018 4:14 PM EDT) Glucose, POC 144 65 - 199 mg/dL [facility] Comment: Supplemental ranges: <140 mg/dL before meals <180 mg/dL all other times of the day Blood specimen (specimen) 09/19/2018 4:14 PM EDT 09/19/2018 4:14 PM EDT Javda Urban MD POINT OF CARE TEST O JONY Performing Organization Address [facility]/ZIP Co de Phone Number [facility] [place] [address] * POCT Glucose (09/19/2018 11:28 AM EDT) Glucose, POC 170 65 - 199 mg/dL [facility] Comment: Supplemental ranges: <140 mg/dL before meals <180 mg/dL all other times of the day Blood specimen (specimen) 09/19/2018 11:28 AM EDT 09/19/2018 11:28 AM EDT Javad Urban MD POINT OF CARE TEST O JONY Performing Organization Address City/[facility]/ZIP Co de Phone Number [facility] [place] [address] * POCT Glucose (09/19/2018 7:54 AM EDT) Glucose, POC 120 65 - 199 mg/dL [facility] Comment: Supplemental ranges: <140 mg/dL before meals <180 mg/dL all other times of the day Blood specimen (specimen) 09/19/2018 7:54 AM EDT 09/19/2018 7:54 AM EDT Javad Urban MD POINT OF CARE TEST O RDERABLES Performing Organization Address [facility] Co de Phone Number [facility] [place] [address] * POCT Glucose (09/19/2018 3:42 AM EDT) Glucose, POC 105 65 - 199 mg/dL [facility] Comment: Supplemental ranges: <140 mg/dL before meals <180 mg/dL all other times of the day Blood specimen (specimen) 09/19/2018 3:42 AM EDT 09/19/2018 3:42 AM EDT Javad Urban MD POINT OF CARE TEST O RDERALISSETT Performing Organization Address [facility] Co de Phone Number [facility] [place] [address] * Magnesium (09/19/2018 3:40 AM EDT) [facility] Signature Magnesium 0.74 0.69 - 1.07 mmol/L [facility] Blood specimen (specimen) Venous Draw / Unknown 09/19/2018 3:40 AM EDT 09/19/2018 4:40 AM EDT Narrative Resulting Agency Comment Spec In Lab Buffy CARR CHEMISTRY ORDERAB LES Performing Organization Address [facility] Co de Phone Number [facility] [place] [address] * (ABNORMAL) Basic Metabolic Panel (non-fasting) (09/19/2018 [...] of body mass or the acutely ill. [email or web address] eGFR 120 >=60 mL/min/1. 73 m?? [facility] Comment: The eGFR was calculated using the CKD-EPI equation. As with all creatinine based estimates of kidney function, eGFR values calculated with the CKD-EPI equation are not accurate in patients with acute kidney failure, extremes of body mass or the acutely ill. [email or web address] Blood specimen (specimen) 09/19/2018 3:40 AM EDT 09/19/2018 3:53 AM EDT Narrative Resulting Agency Comment Spec In Lab Trina Loo APRN CHEMISTRY ORDERABLE S [facility] [place] [address] * POCT Glucose (09/18/2018 11:20 PM EDT) Glucose, POC 150 65 - 199 mg/dL [facility] Comment: Supplemental ranges: <140 mg/dL before meals <180 mg/dL all other times of the day Blood specimen (specimen) 09/18/2018 11:20 PM EDT 09/18/2018 11:20 PM EDT Javad Urban MD POINT OF CARE TEST O JONY Performing Organization Address City/[facility]/ZIP Co de Phone Number [facility] [place] [address] * POCT Glucose (09/18/2018 7:57 PM EDT) Glucose, POC 103 65 - 199 mg/dL [facility] Comment: Supplemental ranges: <140 mg/dL before meals <180 mg/dL all other times of the day Blood specimen (specimen) 09/18/2018 7:57 PM EDT 09/18/2018 7:57 PM EDT Javad Urban MD POINT OF CARE TEST O JONY Performing Organization Address [facility] Co de Phone Number [facility] [place] [address] * POCT Glucose (09/18/2018 4:56 PM EDT) Glucose, POC 142 65 - 199 mg/dL [facility] Comment: Supplemental ranges: <140 mg/dL before meals <180 mg/dL all other times of the day Blood specimen (specimen) 09/18/2018 4:56 PM EDT 09/18/2018 4:56 PM EDT Javad Urban MD POINT OF CARE TEST O JONY Performing Organization Address City/[facility] Co de Phone Number [facility] [place] [address] * POCT Glucose (09/18/2018 11:59 AM EDT) Glucose, POC 160 65 - 199 mg/dL [facility] Comment: Supplemental ranges: <140 mg/dL before meals <180 mg/dL all other times of the day Blood specimen (specimen) 09/18/2018 11:59 AM EDT 09/18/2018 11:59 AM EDT Javad Urban MD POINT OF CARE TEST O JONY Performing Organization Address [facility] Co de Phone Number [facility] [place] [address] * POCT Glucose (09/18/2018 7:55 AM EDT) Glucose, POC 126 65 - 199 mg/dL [facility] Comment: Supplemental ranges: <140 mg/dL before meals <180 mg/dL all other times of the day Blood specimen (specimen) 09/18/2018 7:55 AM EDT 09/18/2018 7:55 AM EDT Javad Urban MD POINT OF CARE TEST O JONY Performing Organization Address [facility] de Phone Number [facility] [place] [address] * POCT Glucose (09/18/2018 3:58 AM EDT) Glucose, POC 125 65 - 199 mg/dL [facility] Comment: Supplemental ranges: <140 mg/dL before meals <180 mg/dL all other times of the day Blood specimen (specimen) 09/18/2018 3:58 AM EDT 09/18/2018 3:58 AM EDT Javad Urban MD POINT OF CARE TEST O RDERALISSETT Performing Organization Address [facility] de Phone Number [facility] [place] [address] * (ABNORMAL) Magnesium (09/18/2018 3:37 AM EDT) Magnesium 0.67(L) 0.69 - 1.07 mmol/L [facility] Blood specimen (specimen) Venous Draw / Unknown 09/18/2018 3:37 AM EDT 09/18/2018 4:55 AM EDT Narrative Resulting Agency Comment Spec In Lab Trina Mueller Eze CARLOS CHEMISTRY ORDERABLE S [facility] [place] [address] * (ABNORMAL) Basic Metabolic Panel (non-fasting) (09/18/2018 [...] of body mass or the acutely ill. [email or web address] eGFR 121 >=60 mL/min/1. 73 m?? [facility] Comment: The eGFR was calculated using the CKD-EPI equation. As with all creatinine based estimates of kidney function, eGFR values calculated with the CKD-EPI equation are not accurate in patients with acute kidney failure, extremes of body mass or the acutely ill. [email or web address] Blood specimen (specimen) 09/18/2018 3:37 AM EDT 09/18/2018 3:59 AM EDT Narrative Resulting Agency Comment Spec In Lab Trina Loo APRN CHEMISTRY ORDERABLE S Performing Organization Address [facility] Co de Phone Number [facility] [place] [address] * POCT Glucose (09/17/2018 11:33 PM EDT) Glucose, POC 145 65 - 199 mg/dL [facility] Comment: Supplemental ranges: <140 mg/dL before meals <180 mg/dL all other times of the day Blood specimen (specimen) 09/17/2018 11:33 PM EDT 09/17/2018 11:33 PM EDT Javad Urban MD POINT OF CARE TEST O RDERABLES Performing Organization Address [facility] Co de Phone Number [facility] [place] [address] * (ABNORMAL) POCT Glucose (09/17/2018 7:24 PM EDT) Glucose, POC 200(H) 65 - 199 mg/dL [facility] Comment: Supplemental ranges: <140 mg/dL before meals <180 mg/dL all other times of the day Blood specimen (specimen) 09/17/2018 7:24 PM EDT 09/17/2018 7:24 PM EDT Javad Urban MD POINT OF CARE TEST O RDERABLES Performing Organization Address [facility] Co de Phone Number [facility] [place] [address] * POCT Glucose (09/17/2018 3:16 PM EDT) Glucose, POC 180 65 - 199 mg/dL [facility] Comment: Supplemental ranges: <140 mg/dL before meals <180 mg/dL all other times of the day Blood specimen (specimen) 09/17/2018 3:16 PM EDT 09/17/2018 3:16 PM EDT Javad Urban MD POINT OF CARE TEST O RDSILVIO Performing Organization Address [facility] Co de Phone Number [facility] [place] [address] * POCT Glucose (09/17/2018 12:01 PM EDT) Glucose, POC 137 65 - 199 mg/dL [facility] Comment: Supplemental ranges: <140 mg/dL before meals <180 mg/dL all other times of the day Blood specimen (specimen) 09/17/2018 12:01 PM EDT 09/17/2018 12:01 PM EDT Javad Urban MD POINT OF CARE TEST O JONY Performing Organization Address [facility] Co de Phone Number [facility] [place] [address] * EEG awake, asleep, drowsy, routine (09/17/2018 9:30 AM EDT) Narrative Jose Singer MD - 09/17/2018 9:30 AM EDT Jose Singer MD ? 09/21/2018 10:14 AM [facility] Department of Neurology Inpatient EEG Report Name of the Patient: ??Jenae La Date of : ?1965 Date of Service: ?09/17/2018 Referring physician: ?Dr. Abdirahman Enamorado BRIEF HISTORY: Jenae La is a 53 y.o. patient with episodes of tremors at home and witnessed facial and arm twitching at [facility] (witnessed by nursing). Also has hit [...] tablet 1,000 mg ??1,000 mg Oral Q8H [facility] Sanket Freeman MD ?? 1,000 mg at [...] injection 1-4 Units ??1-4 Units Subcutaneous Q4H [facility] Sanket Freeman MD ?? 1 Units at 09/15/18 2305 ? ? ondansetron (ZOFRAN) injection 4 mg ??4 mg Intravenous Q8H PRSanket Friedman MD ?? 4 mg at 09/16/18 0721 ? ? prochlorperazine (COMPAZINE) injection 10 mg ??10 mg Intravenous Q6H PRSanket Friedman MD ?? 10 mg at 09/15/18 2051 METHODS: A 21 channel digitized electroencephalogram was performed in the [facility] Clinical Neurophysiology Laboratory. The 10/20 international system of electrode placement was used and bipolar and referential electrode montages were recorded. ??In addition to EEG the patient was monitored for EKG and lateral/vertical eye movements. Video was recorded during the session. The duration of the recording was 30 minutes. MANAGER MANAGEMENT'S REPORT:Performed by: RR/CM Patient was not sleep [...] Angel MD Clinical Neurophysiology Fellow Personal Pager #[phone] Epilepsy Neurology #[phone] Neurology Attending I have personally reviewed the EEG, and I agree with the details as written. ?? The above report was formulated in discussion with me at the time of EEG reading, and I agree with it as documented. Jose Singer MD [place] [address] Pager: [phone], #[phone] Email: [email or web address] Javad Urban MD NEUROLOGY ORDERABLES * (ABNORMAL) [...] [facility] Comment: Called by: maged/neda, Read [...] of body mass or the acutely ill. [email or web address] eGFR 123 >=60 mL/min/1. 73 m?? [facility] Comment: The eGFR was calculated using the CKD-EPI equation. As with all creatinine based estimates of kidney function, eGFR values calculated with the CKD-EPI equation are not accurate in patients with acute kidney failure, extremes of body mass or the acutely ill. [email or web address] Blood specimen (specimen) 09/17/2018 9:02 AM EDT 09/17/2018 9:17 AM EDT Narrative Resulting Agency Comment Spec In Lab Javad Urban MD CHEMISTRY ORDERABLES Performing Organization Address [facility] Co de Phone Number [facility] [place] [address] * POCT Glucose (09/17/2018 7:33 AM EDT) Glucose, POC 136 65 - 199 mg/dL [facility] Comment: Supplemental ranges: <140 mg/dL before meals <180 mg/dL all other times of the day Blood specimen (specimen) 09/17/2018 7:33 AM EDT 09/17/2018 7:33 AM EDT Javad Urban MD POINT OF CARE TEST O RDERABLES Performing Organization Address [facility] [facility] Co de Phone Number [facility] [place] [address] * POCT Glucose (09/17/2018 3:29 AM EDT) Glucose, POC 126 65 - 199 mg/dL [facility] Comment: Supplemental ranges: <140 mg/dL before meals <180 mg/dL all other times of the day Blood specimen (specimen) 09/17/2018 3:29 AM EDT 09/17/2018 3:29 AM EDT Javad Urban MD POINT OF CARE TEST O RDERABLES Performing Organization Address [facility] Co de Phone Number [facility] [place] [address] * POCT Glucose (09/16/2018 11:25 PM EDT) Glucose, POC 123 65 - 199 mg/dL [facility] Comment: Supplemental ranges: <140 mg/dL before meals <180 mg/dL all other times of the day Blood specimen (specimen) 09/16/2018 11:25 PM EDT 09/16/2018 11:25 PM EDT Javad Urban MD POINT OF CARE TEST O JONY Performing Organization Address [facility]/ZIP Co de Phone Number [facility] [place] [address] * POCT Glucose (09/16/2018 8:29 PM EDT) Glucose, POC 114 65 - 199 mg/dL [facility] Comment: Supplemental ranges: <140 mg/dL before meals <180 mg/dL all other times of the day Blood specimen (specimen) 09/16/2018 8:29 PM EDT 09/16/2018 8:29 PM EDT Javad Urban MD POINT OF CARE TEST O JONY Performing Organization Address [facility]/ZIP Co de Phone Number [facility] [place] [address] * POCT Glucose (09/16/2018 3:35 PM EDT) Glucose, POC 106 65 - 199 mg/dL [facility] Comment: Supplemental ranges: <140 mg/dL before meals <180 mg/dL all other times of the day Blood specimen (specimen) 09/16/2018 3:35 PM EDT 09/16/2018 3:35 PM EDT Javad Urban MD POINT OF CARE TEST O JONY Performing Organization Address [facility]/ZIP Co de Phone Number [facility] [place] [address] * (ABNORMAL) Basic Metabolic Panel (non-fasting) (09/16/2018 [...] of body mass or the acutely ill. [email or web address] eGFR 121 >=60 mL/min/1. 73 m?? [facility] Comment: The eGFR was calculated using the CKD-EPI equation. As with all creatinine based estimates of kidney function, eGFR values calculated with the CKD-EPI equation are not accurate in patients with acute kidney failure, extremes of body mass or the acutely ill. [email or web address] Blood specimen (specimen) 09/16/2018 3:33 PM EDT 09/16/2018 3:49 PM EDT Narrative Resulting Agency Comment Spec In Lab Javad Urban MD CHEMISTRY ORDERABLES [facility] [place] [address] * Hemoglobin A1c (09/16/2018 3:33 PM EDT) [...] 1, S67-74 Estimated Average Glucose 111 mg/dL [facility] [...] into estimated average glucose values. ??Diabetes Care 2008:31(8):9308-4727. Blood specimen (specimen) 09/16/2018 3:33 PM EDT 09/16/2018 3:49 PM EDT Narrative Resulting Agency Comment Spec In Lab Javad Urban MD CHEMISTRY ORDERABLES [facility] [place] [place] [address] * XR Foot Min 3 views Bilat [...] O RDERABLES [facility] [place] [address] * XR Fluoro No Rad <1Hr - OR Use (09/16/2018 1:10 PM EDT) Narrative RAD - 09/16/2018 1:11 PM EDT This order does not need a radiologist interpretation. ?? Javad Urban MD IMG FLUORO ORDERABLE S Performing Organization Address [facility] Co de Phone Number [place], [place] * POCT Glucose (09/16/2018 7:46 AM EDT) Glucose, POC 131 65 - 199 mg/dL [facility] Comment: Supplemental ranges: <140 mg/dL before meals <180 mg/dL all other times of the day Blood specimen (specimen) 09/16/2018 7:46 AM EDT 09/16/2018 7:46 AM EDT Javad Urban MD POINT OF CARE TEST O RDERABLES Performing Organization Address [facility] Co de Phone Number [facility] [place] [address] * Urine Hold (09/16/2018 6:07 AM EDT) Hold, Urine Sample in lab. [facility] Urine specimen (specimen) Urine / Unknown 09/16/2018 6:07 AM EDT 09/16/2018 6:54 AM EDT Sanket Freeman MD URINE ORDERABLES Performing Organization Address [facility] Co de Phone Number [facility] [place] [address] * (ABNORMAL) Urinalysis with reflex Culture (09/16/2018 [...] HOSPITAL LABORATORY Leukocytes, Urine Dipstick Negative Negative [facility] LAB[facility]ORY Appearance, Urine Dipstick Clear Clear [facility] Specific [place] Urine Automated 1.012 1.002 - 1.030 [facility] Color, Urine Dipstick Straw Yellow [facility] Reflex to Culture No [facility] Urine specimen (specimen) 09/16/2018 6:07 AM EDT 09/16/2018 6:52 AM EDT Narrative Resulting Agency Comment Spec In Lab Javad Urban MD URINE ORDERABLES Performing Organization Address City/[facility]/ZIP Co de Phone Number [facility] [place] [address] * POCT Glucose (09/16/2018 3:30 AM EDT) Glucose, POC 126 65 - 199 mg/dL [facility] Comment: Supplemental ranges: <140 mg/dL before meals <180 mg/dL all other times of the day Blood specimen (specimen) 09/16/2018 3:30 AM EDT 09/16/2018 3:30 AM EDT Javad Urban MD POINT OF CARE TEST O RDERABLES Performing Organization Address City/[facility]/ZIP Co de Phone Number [facility] [place] [address] * POCT Glucose (09/15/2018 10:59 PM EDT) Glucose, POC 143 65 - 199 mg/dL [facility] Comment: Supplemental ranges: <140 mg/dL before meals <180 mg/dL all other times of the day Blood specimen (specimen) 09/15/2018 10:59 PM EDT 09/15/2018 10:59 PM EDT Javad Urban MD POINT OF CARE TEST O JONY Performing Organization Address [facility] Co de Phone Number [facility] [place] [address] * POCT Glucose (09/15/2018 8:10 PM EDT) Glucose, POC 100 65 - 199 mg/dL [facility] Comment: Supplemental ranges: <140 mg/dL before meals <180 mg/dL all other times of the day Blood specimen (specimen) 09/15/2018 8:10 PM EDT 09/15/2018 8:10 PM EDT Javad Urban MD POINT OF CARE TEST Rosie BORGES Performing Organization Address [facility] Co de Phone Number [facility] [place] [address] * POCT Glucose (09/15/2018 3:43 PM EDT) Glucose, POC 173 65 - 199 mg/dL [facility] Comment: Supplemental ranges: <140 mg/dL before meals <180 mg/dL all other times of the day Blood specimen (specimen) 09/15/2018 3:43 PM EDT 09/15/2018 3:43 PM EDT Javad Urban MD POINT OF CARE TEST O JONY Performing Organization Address City/[facility] Co de Phone Number [facility] [place] [address] * POCT Glucose (09/15/2018 12:05 PM EDT) Glucose, POC 177 65 - 199 mg/dL [facility] Comment: Supplemental ranges: <140 mg/dL before meals <180 mg/dL all other times of the day Blood specimen (specimen) 09/15/2018 12:05 PM EDT 09/15/2018 12:05 PM EDT Javad Urban MD POINT OF CARE TEST O JONY Performing Organization Address [facility] de Phone Number [facility] [place] [address] * (ABNORMAL) POCT Glucose (09/15/2018 7:39 AM EDT) Glucose, POC 206(H) 65 - 199 mg/dL [facility] Comment: Supplemental ranges: <140 mg/dL before meals <180 mg/dL all other times of the day Blood specimen (specimen) 09/15/2018 7:39 AM EDT 09/15/2018 7:39 AM EDT Javad Urban MD POINT OF CARE TEST O JONY Performing Organization Address [facility] de Phone Number [facility] [place] [address] * POCT Glucose (09/15/2018 4:12 AM EDT) Glucose, POC 141 65 - 199 mg/dL [facility] Comment: Supplemental ranges: <140 mg/dL before meals <180 mg/dL all other times of the day Blood specimen (specimen) 09/15/2018 4:12 AM EDT 09/15/2018 4:12 AM EDT Javad Urban MD POINT OF CARE TEST O JONY Performing Organization Address [facility] Co de Phone Number [facility] [place] [address] * ABORH Recheck Status (09/15/2018 3:44 AM EDT) ABORH Recheck Order Order Placed [facility] ABORH Type Recheck Complete [facility] Blood specimen (specimen) 09/15/2018 3:44 AM EDT 09/15/2018 3:59 AM EDT Narrative Resulting Agency Comment Spec In Lab Ori Santos MD BLOOD BANK LAB ORDER MADHAVI Performing Organization Address City/[facility]/ZIP Co de Phone Number [facility] [place] [address] * Antibody screen (09/15/2018 3:44 AM EDT) Ab Screen Interp Negative [facility] Expires at [id number] on: 09/18/2018 [facility] Blood specimen (specimen) 09/15/2018 3:44 AM EDT 09/15/2018 3:59 AM EDT Narrative Resulting Agency Comment Spec In Lab Ori Santos MD BLOOD BANK LAB ORDER MADHAVI Performing Organization Address City/[facility] Co de Phone Number [facility] [place] [address] * ABO/Rh Typing (09/15/2018 3:44 AM EDT) ABORH Type A Pos [facility] Blood specimen (specimen) 09/15/2018 3:44 AM EDT 09/15/2018 3:59 AM EDT Narrative Resulting Agency Comment Spec In Lab Ori Santos MD BLOOD BANK LAB ORDER MADHAVI Performing Organization Address City/[facility]/ZIP Co de Phone Number [facility] [place] [address] * (ABNORMAL) Differential, Automated (09/15/2018 3:44 AM EDT) Neutrophil % 64.7 % [facility] Neutrophil Absolute 7.24(H) 1.70 - 6.10 x10(3)/mc L [facility] Lymph % 21.6 % [facility] Lymphocytes Abs 2.4 0.9 - 3.2 x10(3)/mc L [facility] Monocyte % 10.8 % [facility] Monocyte Abs 1.2(H) 0.3 - 0.9 x10(3)/[facility] Eos % 0.2 % [facility] Eosinophils Abs 0.0 0.0 - 0.4 x10(3)/[facility] Basophil % 0.4 % [facility] Baso Absolute 0.0 0.0 - 0.1 x10(3)/[facility] Immature Gran % 2.30 % [facility] Comment: Immature granulocytes(IG's)percentage and absolute count will include metamyelocytes, myelocytes, and promyelocytes. Blood smears from CBCs yielding IG's will be scanned manually for concordance. If this scan disagrees with the automated IG or if promyelocytes are noted, a manual differential will be performed. Immature Gran Absolute 0.26(H) 0.00 - 0.04 x10(3)/[facility] Blood specimen (specimen) 09/15/2018 3:44 AM EDT 09/15/2018 4:18 AM EDT Narrative Resulting Agency Comment Spec In Lab Ori Santos MD HEMATOLOGY ORDERABLE S [facility] [place] [address] * (ABNORMAL) Hemogram (09/15/2018 3:44 AM EDT) White Blood Cell 11.2(H) 4.0 - 9.5 x10(3)/[facility] Red Blood Cell 3.05(L) 4.00 - 5.21 x10(6)/[facility] Hemoglobin 9.6(L) 11.7 - 15.5 gm/dL [...] [facility] NRBC% auto 0.0 % [facility] NRBC Absolute 0.000 0.000 - 0.000 x10(3)/mc L [facility] Blood specimen (specimen) 09/15/2018 3:44 AM EDT 09/15/2018 4:18 AM EDT Narrative Resulting Agency Comment Spec In Lab Ori Santos MD HEMATOLOGY ORDERABLE S Performing Organization Address City/[facility]/ZIP Co de Phone Number [facility] [place] [address] * Prothrombin Time (09/15/2018 3:44 AM EDT) [...] Organization Address City/[facility]/ZIP Co de Phone Number [facility] [place] [address] * (ABNORMAL) Basic Metabolic Panel (non-fasting) (09/15/2018 [...] of body mass or the acutely ill. [email or web address] eGFR 109 >=60 mL/min/1. 73 m?? [facility] Comment: The eGFR was calculated using the CKD-EPI equation. As with all creatinine based estimates of kidney function, eGFR values calculated with the CKD-EPI equation are not accurate in patients with acute kidney failure, extremes of body mass or the acutely ill. [email or web address] Blood specimen (specimen) 09/15/2018 3:44 AM EDT 09/15/2018 4:18 AM EDT Narrative Resulting Agency Comment Spec In Lab Javad Urban MD CHEMISTRY ORDERABLES Performing Organization Address [facility] de Phone Number [facility] [place] [address] * POCT Glucose (09/14/2018 9:52 PM EDT) Glucose, POC 124 65 - 199 mg/dL [facility] Comment: Supplemental ranges: <140 mg/dL before meals <180 mg/dL all other times of the day Blood specimen (specimen) 09/14/2018 9:52 PM EDT 09/14/2018 9:52 PM EDT Javad Urban MD POINT OF CARE TEST O RDERABLES Performing Organization Address [facility] de Phone Number [facility] [place] [address] * Film Library- Storage Only MR Head (09/13/2018 12:10 AM EDT) Narrative [facility] - 09/15/2018 10:49 AM EDT This exam is auto-finalizing. It's purpose is for storage only. Javad Urban MD IMG FILM LIBRARY ORD ERABLES Performing Organization Address [facility] de Phone Number [place], [place] * Film Library- Storage Only Ultrasound Study (09/13/2018 12:05 AM EDT) Narrative [facility] - 09/15/2018 10:47 AM EDT This exam is auto-finalizing. It's purpose is for storage only. Javad KINGG FILM LIBRARY ORD ERABLES Performing Organization Address [facility] de Phone Number [place], [place] * Film Library- Storage Only DX Chest (09/13/2018 12:00 AM EDT) Narrative [facility] - 09/15/2018 10:46 AM EDT This exam is auto-finalizing. It's purpose is for storage only. Javad Urban MD IMG FILM LIBRARY ORD ERABLES [place] documented in this encounter Visit Diagnoses [...] JULI) 0904 (Given - Provider: Tiana Lujan, JLUI)1500 (Due) insulin lispro (HumaLOG) VIAL injection 1-4 [...] Stacey Duenas, JULI)2357 (Given - Provider: Stacey uDenas, JULI) 0405 (Not Given - Provider: Stacey [...] JULI)223 (See Alternative - Provider: Stacey Duenas, UJLI) 0257 (See Alternative - Provider: Stacey Duenas, [...] Routine documented in this encounter Care Teams Diesel Lube Tech Relationship Specialty Start Date End Date None None PCP - General 09/14/18 09/30/18 documented as of this encounter
--- OUTSIDE RECORDS SUMMARY | 2024-06-15 16:07 | XMS_ITS | Encounter Summary ---
Author Organization [facility] Address [facility] [place] [address] Care Team Providers Care Rip And Groove Machine Operator Name Role Phone Yamile De Leon APRN Primary Care Provider [phone] Reason for Visit * Reason Comments Medication Refill Encounter Details Date Type Department Care Team (Late st Contact Info) Description 07/13/2022 Refill Dermatology at [facility] [address] [place] [address] Charlie Bowser MD [facility] [address] LOBO [place] [address] Prurigo nodularis Social History Tobacco Use Types [...] chronicus documented in this encounter Care Teams Rip And Groove Machine Operator Relationship Specialty Start Date End Date Yamile De Leon APRN PCP - General Family Medicine 10/01/18 11/19/23 documented as of this encounter
--- OUTSIDE RECORDS SUMMARY | 2024-06-15 16:07 | XMS_ITS | Encounter Summary ---
[place] [address] Care Team Providers Care Street Flusher Driver Name Role Phone Yamile De Leon APRN Primary Care Provider [phone] Reason for Visit * Reason Onset Date Comments Medication Problem 10/12/2018 ? Lovenox dis continuation date Encounter Details Date Type Department Care Team (Late st Contact Info) Description 10/12/2018 Telephone [place] [phone] Daja Gregorio RN Medication Problem (? Lovenox [...] to be sent to Saniya Smith in [place], [place] Concerns communicated to LILLY dEen via In Basket. documented in this encounter Plan of Treatment Not on file documented as of this encounter Visit Diagnoses Not on filedocumented in this encounter Care Teams Street Flusher Driver Relationship Specialty Start Date End Date Yamile De Leon APRN PCP - General Family Medicine 10/01/18 11/19/23 documented as of this encounter
--- OUTSIDE RECORDS SUMMARY | 2024-06-15 16:07 | XMS_ITS | Encounter Summary ---
Author Organization [facility] Address [facility] [place] [address] Care Team Providers Care [employer] Home Economics Teacher Name Role Phone Yamile De Leon APRN Primary Care Provider [phone] Encounter Details Date Type Department Care Team (Latest Contact Info) Description 10/25/2018 9:58 AM EDT - 10/25/2018 11:59 PM EDT Hospital Encounter XRay at [address] [place] [address] Aparna Reed MD [facility] [place] [address] S/P ORIF bilateral foot fractures, 09/16/18 (Brianna) [...] internal fixation of a Lisfranc fracture-dislocation with ieixf-lxz-imbkq constructs traversing the first and second tarsometatarsal joints and 3 Yaw wires traversing the third through fifth tarsometatarsal joints. Also status post qwrpiphtv-uln-dtjjb fixation of an intra-articular first proximal phalangeal [...] fractures and a Lisfranc fracture-dislocation with a cmrbr-rsw-gwkmn construct traversing the fourth metatarsal base fracture and Ywa wires traversing the second and third metatarsal [...] internal fixation of a Lisfranc fracture-dislocation with dzavu-kaz-ggrbo constructs traversing the firstand second tarsometatarsal joints and 3 Yaw wires traversing the thirdthrough fifth tarsometatarsal joints. Also status post tluarsbcu-ptx-wakmmuaricjpm of an intra-articular first proximal phalangeal base [...] neck fractures and a Lisfranc fracture-dislocation with syalfj-ilm-wcagz construct traversing the fourth metatarsal base fracture [...] contact the number below. Electronically signed by: Gertchen Odell [facility] ([phone]),at 10/25/2018 3:36 PM Aparna Reed MD IMG DX ORDERABLES documented in this encounter Visit Diagnoses Diagnosis S/P ORIF bilateral foot fractures, 09/16/18 (Brianna) documented in this encounter Care Teams [employer] Home Economics Teacher Relationship Specialty Start Date End Date Yamile De Leon APRN PCP - General Family Medicine 10/01/18 11/19/23 documented as of this encounter
--- OUTSIDE RECORDS SUMMARY | 2024-06-15 16:07 | XMS_ITS | Encounter Summary ---
Author Organization [facility] [place] [address] Care Team Providers Care Quality Control Director Name Role Phone Yamile De Leon APRN Primary Care Provider [phone] Encounter Details Date Type Department Care Team (Late st Contact Info) Description 10/08/2018 10:45 AM EDT Office [place] [address] Cast discomfort Social History Tobacco Use Types [...] tight. The patient's cast was removed by JESSIAC Olivarez. The patient's pins are intact. The [...] aftercare documented in this encounter Care Teams Quality Control Director Relationship Specialty Start Date End Date Yamile De Leon APRN PCP - General Family Medicine 10/01/18 11/19/23 documented as of this encounter
--- OUTSIDE RECORDS SUMMARY | 2024-06-15 16:07 | XMS_ITS | Encounter Summary ---
Author Organization [facility] Address [facility] [place] [address] Care Team Providers Care Requirements Analyst Name Role Phone Yamile De Leon APRN Primary Care Provider [phone] Encounter Details Date Type Department Care Team [...] any time in the past 12 [facility], were you homeless or living in [...] on filedocumented in this encounter Care Teams Requirements Analyst Relationship Specialty Start Date End Date Yamile De Leon APRN PCP - General Family Medicine 10/01/18 11/19/23 documented as of this encounter
--- OUTSIDE RECORDS SUMMARY | 2024-06-15 16:07 | XMS_ITS | Encounter Summary ---
[place] [address] Care Team Providers Care Events Associate Name Role Phone Unknown Primary Care Provider Unavailabl e Reason for Referral * Consultation (Routine) - Closed Specialty Diagnoses / Procedures Referred By Contac t Referred To Contact Infectious Diseases Diagnoses Osteomyelitis, unspecified site, unspecified type [place] [address] [facility] Infectious Dis [address] [place] [phone] Referral ID Status Reason Start Date Expiration Date V isits Requested Visits Authorized [id number] Closed Specialty Service Requested 11/21/2023 11/20/2024 1 1 Reason for Visit * Reason Comments Dental Pain * Auth/Cert (Routine) Specialty Diagnoses / Procedures Referred By Contac t Referred To Contact Diagnoses Osteomyelitis [place] [address] [facility] [[email or web address]] Referral ID Status Reason Start Date Expiration Date Visits Re quested Visits Authorized [id number] 1 1 Encounter Details Date Type Department Care Team (Latest Contact Info) Description 11/19/2023 10:47 AM EDT - 11/21/2023 2:10 PM EDT Hospital Encounter Medical Specialites Unit Level 1 [place] [address] [place] [address] Chiquita Azul MD [facility] [place] [address] [place] [address] [place] [address] Hypertension, unspecified type; Osteomyelitis, jaw acute; Osteomyelitis, unspecified site, unspecified type Discharge Disposition: Home Social History Tobacco Use Types Packs/Day Years Used Date Smoking Tobacco: Every Day Cigarettes 06 21 Smokeless Tobacco: Never Comments:Currently using kalia otine inhaler to help herself quit (11/08/18) Alcohol Use Standard Drinks/Week Comments Not Currently 0 (1 standard drink = 0.6 oz pur e alcohol) [facility] Utilities Answer Date Recorded In the past 12 months has th e electric, gas, oil, or water [place] threatened to shut off services in your [...] [facility] the [facility], were you homeless or living in [...] Erickson La Patient Age: 58 y.o. Language: Japanese Race: White Ethnicity: Not nor Admit date: [...] please contact your inpatient physician through the [facility] Greige Goods Examiner . Issues afterhours and on weekends will [...] dry socket after being evaluated at an [facility] site. She had two additional antibiotics [...] Procedure Component Value Units Date/Time Urine culture [[id number]] Collected: 11/20/23 0722 Lab Status: Final result Specimen: First Catch Urine Updated: 11/21/23 0752 Urine Culture No growth (Less than 1,000 cfu/ml). Abscess/Wound Asp Culture, Aerobic and Anaerobic Fluid; Other [[id number]] (Abnormal) Collected: 11/19/23 164 Lab Status: Preliminary result Specimen: Fluid from Other Updated: 11/21/23 1302 Abscess/Wound Aspirate Culture [[id number]] (Abnormal) Collected: 11/19/23 164 Lab Status: Preliminary result Specimen: Fluid from Other Updated: 11/21/23 1302 Abscess/Wound Aspirate Culture -- Moderate Streptococcus milleri, anginosis group Rare normal oropharyngeal shala Gram Stain -- Many Neutrophils seen Rare Gram Positive Cocci seen Anaerobic Culture [[id number]] Collected: 11/19/23 164 Lab Status: Preliminary result Specimen: Fluid from Other Updated: 11/20/23 1417 Anaerobic Culture No anaerobic organisms isolated to date Studies: Results for orders placed or performed during the hospital encounter of 11/19/23 CT Face w Contrast (Exam End: 11/19/2023 12:37 PM) Result Value WORKSTATION ID [id number] Impression Advanced osteomyelitis of the anterior RIGHT [...] who have questions please contact the health resident care director that requested your imaging first. Updated Allergies/ADRs: [...] HYDROcodone-acetaminophen 5-325 mg tablet Commonly known as: Mobile ibuprofen 600 mg tablet Commonly known as: [...] spent >30 minutes (Day of Discharge Code 94119) involved in the final examination of the [...] ppx: enoxparin -PCP: Yamile De Leon APRN [phone] Attestation: IPI Certification I certify that I am a D-H credentialed attending provider with admitting privileges and that the patient meets or has met medical necessity to require an inpatient IPI level of care meeting a minimumof two midnights or is on the [facility] inpatient only procedure list (status C) [...] providers found PCP: Yamile De Leon APRN ([phone]) Chief Complaint Patient presents with Dental Pain ID: Erickson La is a 58 y.o. female w/ PMH of hypertension, chronic back pain, severe hot flashes, LORRI generally not using home CPAP, and non-insulin dependent diabetes mellitus, who was [facility] on [facility]23 (now on Hospital Day #1) [...] Intake/Output Summary (Last 24 hours) at 11/20/2023 0669 Last data filed at 11/20/2023 0337 Gross [...] Component Value Units Date/Time Abscess/Wound Aspirate Culture [[id number]] (Abnormal) Collected: 11/19/23 1643 Lab Status: Preliminary result Specimen: Fluid from Other Updated: 11/19/232044 Gram Stain -- Many Neutrophils seen Rare Gram Positive Cocci seen Imaging/Diagnostics: Results for orders placed or performed during the hospital encounter of 11/19/23 (from the past 48 hour(s)) CT Face w Contrast (Exam End: 11/19/2023 12:37 PM) Result Value WORKSTATION ID [id number] Impression Advanced osteomyelitis of the anterior RIGHT [...] who have questions please contact the health resident care director that requested your imaging first. Medications: Scheduled: [...] dependent diabetes mellitus , [facility] (now on Hospital Day #1) [...] given as ordered. Pain meds given once maintenance technician 3rd shift. IV ABX tolerates without any complaints. Pt is aware a UA is needed, a hat is in place. Bed in low position, call jane and personal things within reach. Will continue to monitor. Will make RN and MD aware of any changes. * Paulino Li RN - 11/20/2023 3:46 AM EDT 0300- pt arrived to [facility] from ED. Pt oriented to room and [...] dry socket after being evaluated at [facility] site. She had two additional antibiotics [...] 11/19/2023 12:37 PM) Result Value WORKSTATION ID [id number] Impression Advanced osteomyelitis of the anterior RIGHT [...] who have questions please contact the health resident care director that requested your imaging first. Assessment & [...] ppx: enoxparin - PCP: Yamile De Leon, RESOLUTION EXPERT [phone] Misael Joaquin Pager #[phone] [facility] Medicine documented in this encounter ED [...] abx. She was then seen by an hydraulic lift operator who removed all of her teeth on [...] week she was instructed to go to [facility] ER to see an oral surgeon. She [...] who have questions please contact the health resident care director that requested your imaging first. Procedures Assessment [...] Absence of Hospital-Acquired Illness or Injury 11/21/2023 1416 by Jamee Chi RN [...] dry socket after being evaluated at an [facility] care site. She had two additional antibiotics [...] 3.24) performed by Aparna Reed MD at [facility] MAIN OR PRO OPEN TREATMENT METATARSAL FRACTURE EACH Bilateral 09/16/2018 ORIF METATARSAL FX, EACH (WRVU 7.44) performed by Aparna Reed MD at [facility] MAIN OR PRO OPEN TREATMENT TARSOMETATARSAL JOINT DISLOCATION Right 09/16/2018 OPEN TREAMENT TARSOMETATARSAL JOINT DISLOCATION (WRVU 10.7) performed by Aparna Reed MD at [facility] MAIN OR PRO OPEN TX FRACTURE GREAT TOE/PHALANX/PHALANGES Right 09/16/2018 ORIF GREAT TOE (WRVU 7.44) performed by Aparna Reed MD at [facility] MAIN OR PRO PERCUT TREAT METATARSAL FX Left 09/16/2018 PERCUTANEOUS PINNING, METATARSAL FX, EA. (WRVU 3.6) performed by Aparna Reed MD at [facility] MAIN OR PRO PERCUT TREAT TAR-METATAR FOOT DISLOC Right 09/16/2018 PERCUTANEOUS PINNING, TARSOMETATARSAL JOINT DISLOCATION (WRVU 5.09) performed by Aparna Reed MD at [facility] MAIN OR SHOULDER ARTHROSCOPY Bilateral Medications: [...] a history of HTN, chronic back pain, OLRRI, DM, tobacco admitted for mandibular osteomyelitis. Cultures [...] Moya MD, MPH Fellow, Infectious Disease Pager: [phone] Epic Chat 11/20/2023 Associated attestation - Juan [...] would be willing to assist, and her [id number] is nearby and available as well. She [...] surrogate would be surrogate decision maker per [place] surrogate decision making law. (Only good for 180 days) Any patient receiving care in [place] must abide by [place] law. The hierarchy for surrogate decision making [...] (i) The agent with financial power of bottling supervisor or a conservator appointed in accordance with [...] homeless or living in a chcf (including now)?: No In the past 12 months has the [employer], gas, oil, or water [place] threatened to shut off services in your [...] (in the winter) Home Address confirmed as: [address] [place] [address] Social & Family Supports: All names listed below confirmed with patient as current and correct Extended Emergency Contact Information Primary Emergency Contact: Taylor La Address: [address] [place] [address] of [place] Relation: Spouse Secondary Emergency [...] Yes ; Prescription Coverage: Yes Preferred Pharmacy: [facility] [address] [address] Status: Patient is a : No Primary Care Provider confirmed: Unknown None-goes to [facility] but is unsure of providers name Patient/Caregiver Goals of Treatment: to return home [place] once plan is determined. She doesnt want to hold a bed for someone else who may need it Potential Needs for Transition of Care: home health care, outpatient care Agency Referrals: I have met with the patient to: discuss discharge planning needs. provide the [facility], Office of Care Management letter from the Valve Steamer pertaining to rehab referrals. provide a letter describing our affiliations within the [facility] and educate about their right to choose where referrals are sent. provide a list of Home Health Agencies / Durable Medical Equipment vendors which serve their preferred geographic area. provided patient with [facility] Star Quality Rating handout. They have requested referrals to: [facility] [address] [place] [address] [place], [place] [address], [place] [id number] [place] [address] or Note routed to a Tool Carrier who will communicate referrals to facilities and [...] provided most of pt care. Please see CARD FILER's note for further shift details. Additionally, Pt [...] La Age/Sex: 58 y.o. female ENT Attending: [facility] Day: 2 History of Present Illness We [...] several dental caries. This was performed in [facility]. Since extractions she has had intermittent swelling and purulent drainage from her extraction site. She was started on now ?7 courses of antibiotics since July with intermittent improvement in symptoms which unfortunately have returned. She was again started on Clindamycin last and notessome initial improvement but this has progressed. She was told earlier this week [facility]. Patient [...] 3.24) performed by Aparna Reed MD at [facility] MAIN OR PRO OPEN TREATMENT METATARSAL FRACTURE EACH Bilateral 09/16/2018 ORIF METATARSAL FX, EACH (WRVU 7.44) performed by Aparna Reed MD at [facility] MAIN OR PRO OPEN TREATMENT TARSOMETATARSAL JOINT DISLOCATION Right 09/16/2018 OPEN TREAMENT TARSOMETATARSAL JOINT DISLOCATION (WRVU 10.7) performed by Aparna Reed MD at [facility] MAIN OR PRO OPEN TX FRACTURE GREAT TOE/PHALANX/PHALANGES Right 09/16/2018 ORIF GREAT TOE (WRVU 7.44) performed by Aparna Reed MD at [facility] OR PRO PERCUT TREAT METATARSAL FX Left 09/16/2018 PERCUTANEOUS PINNING, METATARSAL FX, EA. (WRVU 3.6) performed by Aparna Reed MD at [facility] OR PRO PERCUT TREAT TAR-METATAR FOOT DISLOC Right 09/16/2018 PERCUTANEOUS PINNING, TARSOMETATARSAL JOINT DISLOCATION (WRVU 5.09) performed by Aparna Reed MD at [facility] OR SHOULDER ARTHROSCOPY Bilateral Medications & Allergies [...] Tape, occlusive adhesive Social History [place] in [place] [address] Social History Socioeconomic History Marital status: Spouse [...] on 11/19/23 Source Information Dariana Jane MD [facility] Ed Document History Procedures - Labs Recent [...] Jane MD, PGY4 11/20/2023 3:54 PM Pager #[phone] ENT Team Pager: [phone] documented in this encounter Plan of Treatment [...] CARE TEST ORDERABLES [facility] [place] [address] * POCT Glucose (11/21/2023 6:29 AM EDT) Pathologist [facility] Glucose, POC 120 65 - 199 mg/dL [facility] Comment: Supplemental ranges: <140 mg/dL before meals <180 mg/dL all other times of the day Blood 11/21/2023 6:29 AM EDT 11/21/2023 6:29 AM EDT Walt Sewell MD POINT OF CARE TEST O RDERABLES [facility] [place] [address] * Differential, Automated (11/21/2023 5:25 AM EDT) [facility] Neutrophil % 49.4 % [facility] Neutrophil Absolute 3.46 1.70 - 6.10 x10(3)/[facility] LABORATORY Lymph % 41.6 % [facility] Lymphocytes Abs 2.9 0.9 - 3.2 x10(3)/[facility]ORATORY Monocyte % 7.1 % [facility] Monocyte Abs 0.5 0.3 - 0.9 x10(3)/[facility] LABORATORY Eos % 1.4 % [facility] Eosinophils Abs 0.1 0.0 - 0.4 x10(3)/[facility] LABORATORY Basophil % 0.4 % [facility] Baso Absolute 0.0 0.0 - 0.1 x10(3)/[facility] LABORATORY Immature Gran % 0.10 % [facility] Comment: Immature granulocytes(IG's)percentage and absolute count will include metamyelocytes, myelocytes, and promyelocytes. Blood smears from CBCs yielding IG's will be scanned manually for concordance. If this scan disagrees with the automated IG or if promyelocytes are noted, a manual differential will be performed. Immature Gran Absolute 0.01 0.00 - 0.04 x10(3)/[facility] LABORATORY Blood 11/21/2023 5:25 AM EDT 11/21/2023 5:32 AM EDT Narrative Resulting Agency Comment Spec In Lab Misael Joaquin MD HEMATOLOGY ORDERABLE S [facility] [place] [address] * (ABNORMAL) Hemogram (11/21/2023 5:25 AM EDT) [...] MEDICAL CENTER LAB[facility] NRBC% auto 0.0 % [facility] NRBC Absolute 0.000 0.000 - 0.000 x10(3)/mc L [facility] Blood 11/21/2023 5:25 AM EDT 11/21/2023 5:32 AM EDT Narrative Resulting Agency Comment Spec In Lab Misael Joaquin MD HEMATOLOGY ORDERABLE S [facility] [place] [address] * (ABNORMAL) Basic Metabolic Panel (non-fasting) (11/21/2023 [...] Joaquin MD CHEMISTRY ORDERABLES Performing Organization Address [facility]/ZIP Co de Phone Number [facility] [place] [address] * POCT Glucose (11/20/2023 9:45 PM EDT) Glucose, POC 131 65 - 199 mg/dL [facility] Comment: Supplemental ranges: <140 mg/dL before meals <180 mg/dL all other times of the day Blood 11/20/2023 9:45 PM EDT 11/20/2023 9:45 PM EDT Walt Sewell MD POINT OF CARE TEST O RDERABLES Performing Organization Address [facility]/ZIP Co de Phone Number [facility] [place] [address] * POCT Glucose (11/20/2023 7:01 PM EDT) Glucose, POC 162 65 - 199 mg/dL [facility] Comment: Supplemental ranges: <140 mg/dL before meals <180 mg/dL all other times of the day Blood 11/20/2023 7:01 PM EDT 11/20/2023 7:01 PM EDT Walt Sewell MD POINT OF CARE TEST O RDSILVIO Performing Organization Address [facility]/ZIP Co de Phone Number [facility] [place] [address] * (ABNORMAL) POCT Glucose (11/20/2023 4:44 PM EDT) Glucose, POC 262(H) 65 - 199 mg/dL [facility] Comment: Supplemental ranges: <140 mg/dL before meals <180 mg/dL all other times of the day Blood 11/20/2023 4:44 PM EDT 11/20/2023 4:44 PM EDT Walt Sewell MD POINT OF CARE TEST O RDERABLES [facility] [place] [address] * ECHO COMPLETE (11/20/2023 4:03 PM EDT) Anatomical Region Laterality Modality Cardiac Other 11/20/2023 3:17 PM EDT Narrative 11/20/2023 4:13 PM EDT [address] [place] [id number] ? Echocardiogram Report Name: ERICKSON LA Jessica ?Study Date: 11/20/2023 03:17 PM ? Patient Location: [id number] A : 1965 ? Height: 155 cm ? Account: [id number] Age: 58 yrs ? Weight: 70 kg Gender: Female ?BSA: 1.7 m2 Ordering Physician: WALT SEWELL Referring Physician: NONE Performed By: Kiana Andrade RDCS Reason For Study: Osteomyelitis Exam Location: [facility]. Interpretation Summary 1. Left ventricle is [...] No prior study available for comparison. Procedure Complete-[id number]. Satisfactory quality. Left Ventricle Left ventricle is [...] Note Michael Acharya MD - 11/20/2023 1 [place] [address] Echocardiogram Report Name: ERICKSON LA Study Date: 403:17 PM Patient Location: [id number] : 1965 Height: 155 cm Account: [id number] Age: 58 yrs Weight: 70 kg Gender: Female BSA: 1.7 m2 Ordering Physician: WALT SEWELL Referring Physician: NONE Performed By: Kaina Andrade RDCS Reason For Study: Osteomyelitis Exam Location: [facility]. Interpretation Summary 1. Left ventricle is [...] No prior study available for comparison. Procedure Complete-[id number]. Satisfactory quality. Left Ventricle Left ventricle is [...] MD ECHO ORDERABLES * MRSA PCR Screen ([facility]/CGP/APD/NLH) (11/20/2023 12:27 PM EDT) MRSA PCR Negative Negative [facility] MRSA (Interp) Methicillin-resist ant Staphylococcus aureus (MRSA) is NOT DETECTED The MRSA target DNA sequences (mec and SCC) were not detected within the acceptable ranges using the Xpert MRSA NxG on the GeneXpert Dx System (DNA13). This suggests the absence of MRSA in the patient specimen submitted for testing. This test is cleared by the U.S. Food and Drug Administration for clinical use and its performance characteristics have been verified by the [facility] at [facility]. This result does not rule out the [...] MD MOLECULAR ORDERABLES [facility] [place] [address] * Blood culture (11/20/2023 11:49 AM EDT) Blood Culture No growth at 5 days. [facility] Blood STRUCTURE OF RIGHT HAND / Unknown 11/20/2023 11:49 AM EDT 11/20/2023 12:15 PM EDT Narrative Resulting Agency Comment Spec In Lab Walt Sewell MD MICROBIOLOGY - BLOOD ORDERABLES Performing Organization Address City/[facility]/ZIP Co de Phone Number [facility] [place] [address] * POCT Glucose (11/20/2023 11:36 AM EDT) Glucose, POC 132 65 - 199 mg/dL [facility] Comment: Supplemental ranges: <140 mg/dL before meals <180 mg/dL all other times of the day Blood 11/20/2023 11:3 6 AM EDT 11/20/2023 11:36 AM EDT Walt Sewell MD POINT OF CARE TEST O RDERABLES Performing Organization Address [facility] Co de Phone Number [facility] [place] [address] * Urine culture (11/20/2023 7:22 AM EDT) [facility] Urine Culture No growth (Less than 1,000 cfu/ml). [facility] First Catch Urine 11/20/2023 7:22 AM EDT 11/20/2023 9:09 AM EDT Narrative Resulting Agency Comment Spec In Lab Sherri Esquivel MD MICROBIOLOGY - GENE RAL ORDERABLES Performing Organization Address City/[facility]/ZIP Co de Phone Number [facility] [place] [address] * (ABNORMAL) Urinalysis Microscopic Exam (11/20/2023 7:22 AM EDT) RBC, Urine >100(H) 0 - 4 /HPF [facility] WBC, Urine 25(H) 0 - 5 /HPF [facility] Squamous Epithelial Cells Raw Data, Urine 2 <=4 /HPF [facility] Hyaline Casts, Urine 2 0 - 2 /LPF [facility] First Catch Urine 11/20/2023 7:22 AM EDT 11/20/2023 7:54 AM EDT Narrative Resulting Agency Comment Spec In Lab Shreri Esquivel MD URINE ORDERABLES Performing Organization Address City/[facility]/ZIP Co de Phone Number [facility] [place] [address] * (ABNORMAL) Urinalysis with reflex Culture (11/20/2023 [...] CENTER LABORATORY Leukocytes, Urine Dipstick Small(A) Negative [facility] Appearance, Urine Dipstick Clear Clear [facility] Specific [place] Urine Automated 1.020 1.005 - 1.030 [facility] Color, Urine Dipstick [place](A) Yellow [facility] Reflex to Culture Yes [facility] First Catch Urine 11/20/2023 7:22 AM EDT 11/20/2023 7:54 AM EDT Narrative Resulting Agency Comment Spec In Lab Sherri Esquivel MD URINE ORDERABLES Performing Organization Address City/[facility]/ZIP Co de Phone Number [facility] [place] [address] * POCT Glucose (11/20/2023 6:21 AM EDT) Glucose, POC 100 65 - 199 mg/dL [facility] Comment: Supplemental ranges: <140 mg/dL before meals <180 mg/dL all other times of the day Blood 11/20/2023 6:21 AM EDT 11/20/2023 6:21 AM EDT Chiquita Azul MD POINT OF CARE TEST ORDERABLES [facility] [place] [address] * POCT Glucose (11/20/2023 3:10 AM EDT) Glucose, POC 108 65 - 199 mg/dL [facility] Comment: Supplemental ranges: <140 mg/dL before meals <180 mg/dL all other times of the day Blood 11/20/2023 3:10 AM EDT 11/20/2023 3:10 AM EDT Chiquita Azul MD POINT OF CARE TEST ORDERABLES Performing Organization Address [facility]/ZIP Co de Phone Number [facility] [place] [address] * (ABNORMAL) Differential, Automated (11/20/2023 1:42 AM EDT) Neutrophil % 51.9 % [facility] Neutrophil Absolute 4.48 1.70 - 6.10 x10(3)/mc L [facility] Lymph % 38.6 % [facility] Lymphocytes Abs 3.3(H) 0.9 - 3.2 x10(3)/mc L [facility] Monocyte % 7.5 % [facility] Monocyte Abs 0.6 0.3 - 0.9 x10(3)/mc L [facility] Eos % 1.4 % [facility] Eosinophils Abs 0.1 0.0 - 0.4 x10(3)/ L [facility] Basophil % 0.3 % [facility] Baso Absolute 0.0 0.0 - 0.1 x10(3)/[facility] LABORATORY Immature Gran % 0.30 % [facility] Comment: Immature granulocytes(IG's)percentage and absolute count will include metamyelocytes, myelocytes, and promyelocytes. Blood smears from CBCs yielding IG's will be scanned manually for concordance. If this scan disagrees with the automated IG or if promyelocytes are noted, a manual differential will be performed. Immature Gran Absolute 0.03 0.00 - 0.04 x10(3)/[facility] LABORATORY Blood 11/20/2023 1:42 AM EDT 11/20/2023 1:48 AM EDT Narrative Resulting Agency Comment Spec In Lab Misael Joaquin MD HEMATOLOGY ORDERABLE S Performing Organization Address City/State/[facility] Co de Phone Number [facility] [place] [address] * (ABNORMAL) Hemogram (11/20/2023 1:42 AM EDT) White Blood Cell 8.6 4.0 - 9.5 x10(3)/[facility] LABORATORY Red Blood Cell 3.46(L) 4.00 - [...] Platelet 260 145 - 357 x10(3)/ L [facility] RDW Standard Deviation 43.5 37.0 - 46.0 [facility] LABORATORY RDW coefficient of variation 12.5 11.5 - 14.1 % [facility] Mean Platelet Volume 9.9 7.6 - 12.9 [facility] LABORATORY NRBC% auto 0.0 % [facility] LABORATORY NRBC Absolute 0.000 0.000 - 0.000 x10(3)/mc L [facility] Blood 11/20/2023 1:42 AM EDT 11/20/2023 1:48 AM EDT Narrative Resulting Agency Comment Spec In Lab Misael Joaquin MD HEMATOLOGY ORDERABLE S [facility] [place] [address] * (ABNORMAL) Basic Metabolic Panel (non-fasting) (11/20/2023 [...] Joaquin MD CHEMISTRY ORDERABLES Performing Organization Address [facility]/ZIP Co de Phone Number [facility] [place] [address] * POCT Glucose (11/19/2023 7:19 PM EDT) Glucose, POC 92 65 - 199 mg/dL [facility] Comment: Supplemental ranges: <140 mg/dL before meals <180 mg/dL all other times of the day Blood 11/19/2023 7:19 PM EDT 11/19/2023 7:19 PM EDT Miguel Benson MD POINT OF CARE TEST O RDERABLES [facility] [place] [address] * (ABNORMAL) Anaerobic Culture (11/19/2023 4:43 PM [...] AL ORDERABLES Performing Organization Address [facility] de Phone Number [facility] [place] [address] * (ABNORMAL) Abscess/Wound Aspirate Culture (11/19/2023 4:43 [...] AL ORDERABLES Performing Organization Address [facility] Co de Phone Number [facility] [place] [address] * CT Face w Contrast (11/19/2023 12:37 PM EDT) WORKSTATION ID [id number] RAD Anatomical Region Laterality Modality Head Computed [...] who have questions please contact the health resident care director that requested your imaging first. ? Narrative [...] patients who have questions please contactthe health resident care director that requested your imaging first. Titus South MD IMG CT ORDERABLES * Gold Tube HOLD (11/19/2023 11:15 AM EDT) Gold Hold Sample in lab. [facility] Blood Venous Draw / Unknown 11/19/2023 11:15 AM EDT 11/19/2023 11:26 AM EDT Osorio CARR CHEMISTRY ORDERABLES Performing Organization Address City/[facility]/ZIP Co de Phone Number [facility] [place] [address] * Blue Tube HOLD (11/19/2023 11:15 AM EDT) Blue Hold Sample in lab. [facility] Blood Venous Draw / Unknown 11/19/2023 11:15 AM EDT 11/19/2023 11:26 AM EDT Osorio CARR HEMATOLOGY ORDERABLE S Performing Organization Address City/[facility]/ZIP Co de Phone Number [facility] [place] [address] * (ABNORMAL) Differential, Automated (11/19/2023 11:15 AM EDT) Neutrophil % 74.6 % [facility] Neutrophil Absolute 11.11(H) 1.70 - 6.10 x10(3)/mc L [facility] Lymph % 16.8 % [facility] Lymphocytes Abs 2.5 0.9 - 3.2 x10(3)/[facility] LABORATORY Monocyte % 7.0 % [facility] Monocyte Abs 1.0(H) 0.3 - 0.9 x10(3)/[facility] LABORATORY Eos % 0.9 % [facility] Eosinophils Abs 0.1 0.0 - 0.4 x10(3)/[facility] LABORATORY Basophil % 0.3 % [facility] Baso Absolute 0.0 0.0 - 0.1 x10(3)/[facility] LABORATORY Immature Gran % 0.40 % [facility] Comment: Immature granulocytes(IG's)percentage and absolute count will include metamyelocytes, myelocytes, and promyelocytes. Blood smears from CBCs yielding IG's will be scanned manually for concordance. If this scan disagrees with the automated IG or if promyelocytes are noted, a manual differential will be performed. Immature Gran Absolute 0.06(H) 0.00 - 0.04 x10(3)/[facility] LABORATORY Blood 11/19/2023 11:1 5 AM EDT 11/19/2023 11:25 AM EDT Narrative Resulting Agency Comment Spec In Lab Osorio CARR HEMATOLOGY ORDERABLE S [facility] [place] [address] * (ABNORMAL) Hemogram (11/19/2023 11:15 AM EDT) White Blood Cell 14.9(H) 4.0 - 9.5 x10(3)/[facility] LABORATORY Red Blood Cell 4.03 4.00 - 5.21 x10(6)/[facility] LABORATORY Hemoglobin 12.8 11.7 - 15.5 g/dL [...] Standard Deviation 44.2 37.0 - 46.0 fL [facility] RDW coefficient of variation 12.5 11.5 - 14.1 % [facility] Mean Platelet Volume 10.0 7.6 - 12.9 fL [facility] NRBC% auto 0.0 % [facility] NRBC Absolute 0.000 0.000 - 0.000 x10(3)/mc L [facility] Blood 11/19/2023 11:1 5 AM EDT 11/19/2023 11:25 AM EDT Narrative Resulting Agency Comment Spec In Lab Osorio CARR HEMATOLOGY ORDERABLE S [facility] [place] [address] * (ABNORMAL) Basic Metabolic Panel (non-fasting) (11/19/2023 [...] MD CHEMISTRY ORDERAB LES Performing Organization Address City/State/[facility] Co de Phone Number [facility] [place] [address] documented in this encounter Visit Diagnoses Diagnosis [...] over 4 Hours, Warning Vesicant/Irritant Medication Per manufacturers representative labeling, do not administer or Y-site with [...] over 0.5 Hours, Warning Vesicant/Irritant Medication Per manufacturers representative labeling, do not administer or Y-site with [...] LPN) 0827 (Given - Provider: Jamee Chi, JLUI) montelukast (Singulair) tablet 10 mg 10 mg, [...] over 4 Hours, Warning Vesicant/Irritant Medication Per manufacturers representative labeling, do not administer or Y-site with lactated ringers., Indication for (Active or Suspected): Bone/Joint 2134 (New Bag - Provider: Cammie Jim RN) 0108 (Stopped - Provider: Riddhi Babcock RN)0500 (New Bag - Provider: Chen Hickman LPN)0900 (Stopped - Provider: Silme Gilliam RN)1416 (New Bag - Provider: Rach [...] over 0.5 Hours, Warning Vesicant/Irritant Medication Per manufacturers representative labeling, do not administer or Y-site with lactated ringers., Indication for (Active or Suspected): Bone/Joint 1453 (New Bag - Provider: Renee Saunders LPN)1523 (Stopped - Provider: Riddhi Babcock RN) pravastatin (Pravachol) tablet 40 mg 40 mg, Oral, EVERY EVENING, First dose on Thu11/20/23 at 1700, Until Discontinued 164 (Given - Provider: Rach Alcantara LPN) sodium [...] Routine documented in this encounter Care Teams Events Associate Relationship Specialty Start Date End Date Unknown None PCP - General 11/20/23 11/30/23 documented as of this encounter
--- OUTSIDE RECORDS SUMMARY | 2024-06-15 16:08 | XMS_ITS | Encounter Summary ---
[place] [address] Care Team Providers Care Customer Care Assistant Name Role Phone Emma Miramontes APRN Primary Care Provider [phone] Reason for Visit * Reason Comments Skin Problem Encounter Details Date Type Department Care Team (Late st Contact Info) Description 09/24/2011 4:15 PM EDT Office Visit Dermatology [address] [place] [address] [address] [place] [address] Hammad Fields MD [address] [facility] [place] [address] Psoriasiform dermatitis (Primary Dx) Social History Tobacco [...] in consultation by Emma Miramontes from the [facility]. The patient states that her daughter has [...] disorders documented in this encounter Care Teams Customer Care Assistant Relationship Specialty Start Date End Date Emma Miramontes APRN PCP - General 04/16/10 12/10/17 documented as of this encounter
--- OUTSIDE RECORDS SUMMARY | 2024-06-15 16:08 | XMS_ITS | Encounter Summary ---
Author Organization [facility] Address [facility] [place] [address] Care Team Providers Care Application Support Name Role Phone None Primary Care Provider Unavailabl e Encounter Details Date Type Department Care Team (Latest Contact Info) Description 09/14/2018 2:45 PM EDT Ancillary Procedure Radiology Library at [facility] [place] [address] Javad Urban MD [facility] [place] [address] Multiple closed fractures of foot, initial encounter [...] below. ? Electronically signed by: Sheila Joaquin [facility] ([phone]), at 09/28/2018 4:31 PM --------ORIGINAL REPORT -------- [...] below. ? Electronically signed by: Sheila Joaquin [facility] ([phone]), at 09/14/2018 4:41 PM Impressions 09/14/2018 4:41 [...] below. ? Electronically signed by: Sheila Joaquin [facility] ([phone]), at 09/14/2018 4:41 PM Narrative 09/14/2018 4:41 [...] number below. Javad Urban MD IMG OUTSIDE [facility] TATION ORDERABLES documented in this encounter Visit Diagnoses Diagnosis Multiple closed fractures of foot, initial encounter documented in this encounter Care Teams Application Support Relationship Specialty Start Date End Date None None PCP - General 09/14/18 09/30/18 documented as of this encounter
--- OUTSIDE RECORDS SUMMARY | 2024-06-15 16:08 | XMS_ITS | Encounter Summary ---
Author Organization [facility] [place] [address] Care Team Providers Care Typing Secretary Name Role Phone None Primary Care Provider Unavailabl e Encounter Details Date Type Department Care Team (Late st Contact Info) Description 09/14/2018 [place] [id number] Josseline Macedo MD Social History Tobacco Use [...] center phone call from Dr. Florentino at [facility] regarding patient who is an inpatient [...] did have a head CT again w [facility] we do not have in our system but per report was negative. She does have abrasions on her head.Dr. Peña and orthopedic provider at [facility] reports that he has taken care of the patient on an outpatient basis and that she is now back to her baseline. Patient's past medical history is notable for COPD, LORRI on CPAP, diabetes on insulin, chronic opioid use currently on [place] per report, fibromyalgia Patient is not on [...] syncope vs seizure- on empiric keppra per [facility] neurology 2. PNA - per report [...] on filedocumented in this encounter Care Teams Typing Secretary Relationship Specialty Start Date End Date None None PCP - General 09/14/18 09/30/18 documented as of this encounter
--- OUTSIDE RECORDS SUMMARY | 2024-06-15 16:08 | XMS_ITS | Encounter Summary ---
Author Organization [facility] [place] [address] Care Team Providers Care Director Of Officiating Name Role Phone None Primary Care Provider Unavailabl e Encounter Details Date Type Department Care Team (Late st Contact Info) Description 09/14/2018 [place] [address] Josseline Macedo MD Multiple closed fractures of [...] encounter documented in this encounter Care Teams Director Of Officiating Relationship Specialty Start Date End Date None None PCP - General 09/14/18 09/30/18 documented as of this encounter
--- OUTSIDE RECORDS SUMMARY | 2024-06-15 16:08 | XMS_ITS | Encounter Summary ---
Author Organization [facility] [place] [address] Care Team Providers Care Senior Director Marketing Name Role Phone Unavailable Primary Care Provider Unavailabl e Encounter Details Date Type Department Care Team (Late st Contact Info) Description 09/13/2018 Ancillary Procedure Radiology Library at [facility] [place] [phone] Social History Tobacco Use Types Packs/Day Years [...] ERABLES [facility] Faustino PA documented in this encounter Visit Diagnoses Not on filedocumented in this encounter
--- OUTSIDE RECORDS SUMMARY | 2024-06-15 16:08 | XMS_ITS | Encounter Summary ---
Author Organization [facility] Address [facility] [place] [address] Care Team Providers Care Police Judge Name Role Phone None Primary Care Provider Unavailabl e Reason for Visit * Auth/Cert Specialty Diagnoses / Procedures Referred By Contac t Referred To Contact Diagnoses Fracture of unspecified tarsal bone(s) of unspecified foot, initial encounter for closed fracture CLOSED HEAD INJURY, FOOT BONE FX'S -CONFUSED Procedures EMERGENCY IPI Referral ID Status Reason Start Date Expiration Date Visits Re quested Visits Authorized [id number] 1 1 Encounter Details Date Type Department Care Team (Late st Contact Info) Description 09/16/2018 10:16 AM EDT Anesthesia Event [place] [address] Ron Duong MD [facility] [place] [address] Chauncey Castro MD [facility] [place] [address] Anesthesia Record Procedure Summary Procedure Name Responsible [...] 1032; metacarpal vein (top of hand), left; [id number]-[id number] catheter system; 20 gauge; Ron Duong; removed [...] OR Notes * Anesthesia Postprocedure Evaluation - oRn Duong MD - 09/16/2018 4:11 PM EDT [facility] Department of Anesthesiology Post-procedure Note Patient: Jenae La Procedure Summary Date: 09/16/18 Room / Location: [facility] MAIN OR Anesthesia Start: 1016 [...] All Anesthesia Providers: Anesthesiologist: Ron Duong MD TEAM LEAD: Lisa Birmingham CRNA Vitals Value Taken Time BP 135/75 09/16/2018 2:39 PM Temp 36.2 ??C (97.2 ??F) 09/16/2018 2:39 PM Pulse 61 09/16/2018 2:41 PM Resp 15 09/16/2018 2:41 PM SpO2 97 % 09/16/2018 2:56 PM Pain Level 9 09/16/2018 2:39 PM Vitals shown include unvalidated device data. Patient Location: PACU/[facility] Level of Consciousness: Awake and Alert Pain [...] Chlorhexidine Skin Anesthetic: Lidocaine 1% dose: 6 [id number]-[id number] 21 10 cm Ultrasound Guided: Live and [...] Single-shot BUpivacaine 0.25%, 40 mL no complications Resident/TEAM LEAD:: Delvin Byrd MD Fellow:: Chauncey Castro MD [...] 12.0 09/15/2018 No results found for: TSH, Y5SDNUK, TT4, THYROIDAB No results found for: HA1C Plan is for GA with ETT, standard ASA monitors, and adequate IV access. Bilateral pop-sciatic, saphenous nerve blocks for post op pain control Region - Other Informed Consent: Anesthetic plan and risks discussed with patient. Use of blood products discussed with patient who consented to blood products. Plan discussed with TEAM LEAD and attending. PAT Clinic Note documented in [...] ??Chlorhexidine Skin Anesthetic: ??Lidocaine 1% dose: ??6 [id number] 21 10 cm Ultrasound Guided: ??Live and [...] BUpivacaine 0.25%, 40 mL no complications ?? Resident/TEAM LEAD:: ??Delvin Byrd MD Fellow:: ??Chauncey Castro MD Attending Physician:: ??Ron Duong MD 20mL's each side Ron Duong MD [facility] documented in this encounter Visit Diagnoses [...] Starting on Gloria 09/16/18 at 1155, Until Glroia 09/16/18 at 1351, Anesthesia Intra-op, [...] mg documented in this encounter Care Teams Police Judge Relationship Specialty Start Date End Date None None PCP - General 09/14/18 09/30/18 documented as of this encounter
--- OUTSIDE RECORDS SUMMARY | 2024-06-15 16:08 | XMS_ITS | Encounter Summary ---
Author Organization [facility] Address [facility] [place] [address] Care Team Providers Care Wax Blender Name Role Phone Unavailable Primary Care Provider Unavailabl e Encounter Details Date Type Department Care Team (Late st Contact Info) Description 09/12/2018 12:05 AM EDT Ancillary Procedure Radiology Library at [facility] [place] [phone] Aparna Reed MD [facility] [place] [address] Social History Tobacco Use Types Packs/Day Years [...] Reed MD IMG FILM LIBRARY ORD ERABLES [facility] Faustino [place] documented in this encounter Visit Diagnoses Not on filedocumented in this encounter
--- OUTSIDE RECORDS SUMMARY | 2024-06-15 16:08 | XMS_ITS | Encounter Summary ---
Author Organization [facility] [place] [address] Care Team Providers Care Machine Stoppage Frequency Checker Name Role Phone Unavailable Primary Care Provider Unavailabl e Encounter Details Date Type Department Care Team (Late st Contact Info) Description 09/13/2018 12:05 AM EDT Ancillary Procedure Radiology Library at [facility] [place] [phone] Social History Tobacco Use Types Packs/Day Years [...]
--- OUTSIDE RECORDS SUMMARY | 2024-06-15 16:08 | XMS_ITS | Encounter Summary ---
Author Organization [facility] [place] [address] Care Team Providers Care Mixing Machine Tender Cork Gasket Name Role Phone Unavailable Primary Care Provider Unavailabl e Encounter Details Date Type Department Care Team (Late st Contact Info) Description 09/12/2018 Ancillary Procedure Radiology Library at [facility] [place] [address] Aparna Reed MD [facility] [place]OP[place]ED[place] [address] Social History Tobacco Use Types Packs/Day Years [...] Reed MD IMG FILM LIBRARY ORD ERABLES [place], [place] documented in this encounter Visit Diagnoses Not on filedocumented in this encounter
--- OUTSIDE RECORDS SUMMARY | 2024-06-15 16:08 | XMS_ITS | Encounter Summary ---
Author Organization [facility] Address [facility] [address] Care Team Providers Care Shaper And Presser Name Role Phone None Primary Care Provider Unavailabl e Reason for Visit * Auth/Cert Specialty Diagnoses / Procedures Referred By Contac t Referred To Contact Diagnoses Fracture of unspecified tarsal bone(s) of unspecified foot, initial encounter for closed fracture CLOSED HEAD INJURY, FOOT BONE FX'S -CONFUSED Procedures EMERGENCY IPI Referral ID Status Reason Start Date Expiration Date Visits Re quested Visits Authorized [id number] 1 1 Encounter Details Date Type Department Care Team (Late st Contact Info) Description 09/16/2018 9:58 AM EDT - 09/16/2018 12:57 PM EDT Surgery [place] [id number] Aparna Reed MD [facility] [place] [address] ORIF METATARSAL FX, EACH (WRVU 7.44) Social [...] Jenae La Patient Age: 53 y.o. Language: Citizen Of [place] Race: White Ethnicity: Not nor Admit date: 09/14/2018 Discharge date and time: 09/20/2018 Attending Physician: Javad Urban MD Discharge Physician: Javad Urban MD Follow-up Recommendations for Providers: See discharge instructions for additional details. Future Appointments Date Time Provider Department Center 10/01/2018 10:00 AM [facility] DX ROOM 1 Xray Le[facility] Rad Clin 10/01/2018 11:00 AM Mary Ellison PA Leb Ortho 3C [facility] 11/08/2018 1:00 PM Abdirahman Enamorado MD Leb Neuro [facility] Inpatient Provider Contact Information: Javad Urban MD Orthopedics: [phone] After hours and weekends, call [facility] Dinkey Brakeman, , and have the Orthopedic resident paged. [...] multiple times, leading her to present to [facility] on 09/12/2018 for evaluation. ?? Initial work-up at [facility] revealed sepsis secondary to suspected community- acquired pneumonia, mild acute exacerbation of COPD, a closed head injury with postconcussive syndrome, multiple bilateral foot fractures, and MANUEL, resulting in hospital admission. Upon presentation to the [facility] ED, her and herjake reported instances [...] no active bleeding observed. General Surgery at [facility] evaluated the patient, and felt no further action was required besides outpatient follow up. ?? Upon arrival to [facility], Mrs. La reports moderate pain in her [...] Orthopedic Surgery Service as a transfer from [facility] for definitive operative management of bilateral [...] demonstrated seizure-like activity during her presentation at [facility], thus would recommend consulting Neurology to [...] a transfer to the orthopedic service from [facility] for bilateral complex foot fractures. ?? [...] Electronically signed by: Sheila Joaquin [facility] ([phone]), at 09/16/2018 3:47 PM Pending Studies and Lab Data at Discharge: * No orders in the log * Transfusions: No Discharge Conditions/Prognosis: Stable, awake, and alert. Mobilizing as noted above, pain controlled on oral medications. Discharge to: Home HOME HEALTH CARE AGENCY: ??[facility] ?? PHONE: [phone] FAX: [phone] Updated Allergies/ADRs: Allergies Allergen Reactions ??? Sulfa [...] bowel movement. You can also take an ovvw-oik-ppkrxrq medication, Miralax if needed to combat constipation. [...] skin and wound problems. Call your doctor ([phone]) if you develop: 1. Fever greater than [...] 1. You will have follow-up appointments at [facility] as indicated in Future Appointment and Orders. You will have an xray prior to those appointments so please come to Radiology, desk 3T, 1 hour BEFORE your appointment for those x-rays. Future Appointments Date Time Provider Department Center 10/01/2018 10:00 AM [facility] DX ROOM 1 Xray [facility] Clin 10/01/2018 11:00 AM Mary Ellison PA Leb Ortho 3C [facility] 11/08/2018 1:00 PM Abdirahman Enamorado MD Leb Neuro [facility] If you have questions or concerns: [...] Provider Department Dept Phone 10/01/2018 10:00 AM [facility] DX ROOM 1 XRay at [place] Arrive at: Supervisor Policy Change Clerks Area [phone] Please go to Super[facility] Clerks Area 3T ([place] Location). 10/01/2018 11:00 AM Mary Ellison PA Orthopaedics at [place] Arrive at: Supervisor [facility] Clerks Area 3C [phone] 11/08/2018 1:00 PM Abdirahman Enamorado MD Neurology at [place] Arrive at: Supervisor [facility] Clerks Area [phone] Future Orders Complete By Expires Durable Medical Equipment Order [EQ148 Custom] As directed Process Instructions: Scheduling Instructions: Comments: Non weight bearing bilateraly Questions: Name/Description of requested item: Drop arm commode Size requested: 20 Vendor Name/Contact information: [facility] Durable Medical Equipment Order [EQ148 Custom] [...] Instructions: Scheduling Instructions: Comments: [address] [facility] [phone] (home) No relevant phone numbers on file. Diagnosis:Bilateral fractures both feet requiring surgery Non weight barring Patient's: Hgt: 5'1 Wgt: 183 VENDOR: [employer] Ordering: Drop arm commode needed ARABELLA is required for discharge Questions: Name/Description of requested item: Drop arm Commode Size requested: Standard Vendor Name/Contact information: [employer] Referral to Home Health - at DISCHARGE [[id number] CPT(R)] As directed Process Instructions: Scheduling Instructions: Comments: DOCUMENTATION FOR VNA SERVICES (INCLUDING THOSE PATIENTS WITH MEDICARE COVERAGE REQUIRING HOME VNA SERVICES AND/OR HOSPICE SERVICES) PATIENT'S LOCATION: [address] [facility] [address] (home) Cell: No relevant phone numbers on file. Farm Management Adviser's Name: herself with 's assist In discussion with the attending physician, it is certified that this patient is under their care and that they, or a Nurse Practitioner,Clinical Nurse specialist or Physician Customer Program Manager who is working directly with them, had [...] continue rehab for managing ADL's. Eval for COLOR PRINTER OPERATOR: HOME HEALTH CARE AGENCY: [facility] PHONE: [phone] FAX: [phone] Start of care: 09/21/18 FOR MEDICARE ONLY: [...] this patient's PCP: LILLY Gaitan [address] [facility] [id number] All A agencies which cover the area of patient's residence have been reviewed, either verbally irasema writing, and patient/family have chosen the home health care agency noted Questions: Agency name and contact information: [facility] Patient location post discharge: home What [...] with the wheelchair. Questions: Vendor Name/Contact information: [facility] Primary Care Provider: LILLY Gaitan [phone] Discharge References/Attachments None documented in this encounter [...] bowel movement. You can also take an inql-grz-noouggr medication, Miralax if needed to combat constipation. [...] skin and wound problems. Call your doctor ([phone]) if you develop: 1. Fever greater than [...] 1. You will have follow-up appointments at [facility] as indicated in Future Appointment and Orders. You will have an xray prior to those appointments so please come to Radiology, desk 3T, 1 hour BEFORE your appointment for those x-rays. Future Appointments Date Time Provider Department Center 10/01/2018 10:00 AM [facility] DX ROOM 1 Xray Leb [...] Ortho Pager # Check daily [facility] is unable to supply the commode and the slide board . This quality analyst/technical writer called several places andfound slide board at [facility] and [facility] as well that is being serviced [...] discharge planning. Ivette Álvarez RN CM Pager [phone] * Ivette Álvarez RN - 09/20/2018 12:52 PM EDT The patient/medical office representative has been provided a list of /DME vendors which serve their preferred geographic area. A letter describing our affiliations was reviewed with them and they were educated about their right to choose where referrals are placed. Patient requests referral to [facility] Expected date of discharge: 09/20/18 Referral routed to the Varnish Remover for matching with agency/vendor and to provide any required information. Ivette Álvarez [facility] Beeper #[phone] * Ivette Álvarez RN - 09/20/2018 11:14 AM EDT Office of Care Managment (OCM /Caremanger (CM)/ Discharge planning ) Service Ortho Pager # check daily Patient is medically ready to go . Made call to [facility] to verify delivery of Wheelchair , slide board and drop arm commode for today (family said they can pick the items up on the way home ) Thalia from [facility] is checking with [facility] office to make sure items are available for them. Plan: CM will continue to follow for coordination of care and to facilitate discharge planning. ? Ivette Álvarez RN CM Pager [phone] * Ori Santos MD - 09/20/2018 5:39 [...] Pain well controlled. Plan to discharge home [facility] per PT recommendations. Discharge likely today, dependent on DME delivery to [facility]. Activity: NWB BLE. Strict elevation in splints. Closure: Sutures (remove 10-14 days) Dressing: DSD, splints. Drain: None Anticoagulation: Lovenox for 30 days Antibiotics: Empiric Ceftriaxone/Azithromycin for suspected CAP Consults: Medicine, Neuro Dispo: Like home today Follow-up: As scheduled Ori Santos MD 09/20/2018 Future Appointments Date Time Provider Department Center 10/01/2018 10:00 AM [facility] DX ROOM 1 Xray Leb [...] with Med Team re pt DC today( [id number]). Pt to dc Thursday * Sanket Freeman [...] Time Provider Department Center 10/01/2018 10:00 AM [facility] DX ROOM 1 Xray Leb Rad Clin 10/01/2018 11:00 AM Mary Ellison PA Leb Ortho [address] [place] [address] CLIN Associated attestation - Aparna Reed MD [...] a transfer to the orthopedic service from [facility] for bilateral complex foot fractures. INTERVAL [...] L Elbow flexion 5/5 R, 5/5 L Truck Body Builder LE: Deferred due to her pain Sensation: [...] a transfer to the orthopedic service from [facility] for bilateral complex foot fractures. Patient [...] - PGY-3 General Neurology Consults Team Pager #[phone] 09/17/18 Associated attestation - Jose Swan MD - 09/17/2018 4:41 PM EDT I have seen and examined Jenae La with the neurology team on 09/17/2018 and agree with the assessment and plan as below. Face twitching. 53 Y F with history of DJD spine, DM, fibromyalgia being seen by Neurologist at [facility] Episodes of left sided facial twitching Stopped taking gabapentin recently due to side effects. Low suspicion for these being seizures. AEDs not needed at this time Recommended lower doses of gabapentin which she doesn't wish to take. Outpatient neurology followup Jose Swan MD Department of Neurology [facility] * Sanket Freeman MD - 09/17/2018 [...] Department of Orthopaedics 09/17/18 * Davin Ann, CNA INSTRUCTOR - 09/16/2018 11:22 PM EDT Pt [...] 8:31 AM EDT Internal Medicine Consult Note (#[id number]) Progress Note Patient info: Name: Jenae La : 1965 PCP: LILLY Gaitan PCP phone number: [phone] Date of Admission: 09/14/2018 ( Hospital Day [...] Orthopedic Surgery Service as a transfer from [facility] for operative management of bilateral complex [...] acetaminophen 1,000 mg Oral Q8H [facility] ### ??? [Jul] levETIRAcetam 1 g Intravenous [...] in the last 7068 hours. Invalid input(s): [id number] Heme: No results for input(s): LDH, HAPTOGLOBIN, URICACID in the last 168 hours. ABG: ABG (Arterial Blood Gas) No results found for: PHART, PO2ART, JDS0EAJ, PYX3UOS Microbiology: Site Date and Time Obtained Result [...] Orthopedic Surgery Service as a transfer from [facility] for definitive operative management of bilateral [...] demonstrated seizure-like activity during her presentation at [facility], thus would recommend consulting Neurology to [...] Lyon MD, PGY-3 09/16/2018 Medicine Consult # [id number] Associated attestation - Chris Stahl DO - [...] Freeman MD PGY-2 Orthopaedics * Davin Ann, CNA INSTRUCTOR - 09/15/2018 11:00 PM EDT Pt had Nausea, NIV held this evening. * Kathrin Madsen RN - 09/15/2018 2:05 PM EDT Based on discussions with the multi-disciplinary healthcare team, the patient would benefit from snf/swing/acute level of care at discharge. ?? I have met with the patient/medical office representative to discuss discharge planning needs. I have provided the [facility], Office of Care Management letter from the Roll Contour Grinder pertaining to rehab referrals. I have also provided a letter describing our affiliations within the [facility] and educated them about their right to choose where referrals are placed. ?? I reviewed the different levels of rehab including SNF, swing, acute and LTAC with the patient/medical office representative. ?? The patient/medical office representative has been provided a list of facilities within their preferred geographic area. ?? I have requested that the patient/medical office representative provide at least three choices for referral. ?? The patient/medical office representative have requested referrals to: 2.[facility] [address] [place] [id number] ?? [phone] 1. [facility] [address] [place] [address] ?? [phone] ?? Expected date of discharge: 09/17/18 Note routed to Varnish Remover who will communicate referrals to facilities and [...] % Laboratory: No results found for: PHART, FVK4UZP, PO2ART, HCD7GKE, BEART Assessment: Called to set pt up [...] Urban PCP: LILLY Gaitan PCP phone #: [phone] Chief Complaint: Foot pain History of Present Illness: Jenae La is a 53 y.o woman with HTN, HLD, Type II DM, LORRI on CPAP,fibromyalgia with chronic opioid use, and GERD who was admitted to the Orthopedic Surgery Service as a transfer from [facility] for operative management of bilateral complex foot fractures s/p trauma (dropping firewood on her feet) on the evening of 09/11/18 causing bilateral immediate pain, swelling, andbruising making it difficult to ambulate and leading to falls c/b striking her head multiple times.It was with these symptoms that she presented to [facility] on 09/12/18. During her initial presentation in the [facility] ED, the patient reported instances of trembling and fecal incontinence. She was noted to be confused with lip and unilateral arm twitching. CT head was negative. CT C-spine was negative. CTchest demonstrated 6.8mm ground glass nodule in the RUL and b/l ground glass opacities. An LP was performed for suspicion of meningitis that was reportedly negative, CSF cultures were reportedly negative. At [facility], she was found to have post-concussive [...] hours of admission. She was admitted to [facility] from 09/12/18 - 09/14/18. Upon arrival at [facility] on 09/15/18,the patient noted moderate bilateral pain [...] in the last 7068 hours. Invalid input(s): [id number] Heme: No results for input(s): LDH, HAPTOGLOBIN, [...] Orthopedic Surgery Service as a transfer from [facility] for definitive operative management of bilateral [...] demonstrated seizure-like activity during her presentation at [facility], thus would recommend consulting Neurology to [...] Internal Medicine, PGY- 3 Medicine Consult Pager #[phone] Associated attestation - Chris Stahl DO - [...] female who presented as a transfer from [facility] for operative management of the complex foot fractures due to trauma on 09/11/2018. Her hospital course at [facility] was complicated by an ICU admission due to community-acquired pneumonia, as well as possible focal seizures and postconcussive syndrome. Here at [facility] patient has been clinically stable from pulmonary [...] multiple times, leading her to present to [facility] on 09/12/2018 for evaluation. Initial work-up at [facility] revealed sepsis secondary to suspected community- acquired pneumonia, mild acute exacerbation of COPD, a closed head injury with postconcussive syndrome, multiple bilateral foot fractures, and MANUEL, resulting in hospital admission. Upon presentation to the [facility] ED, her and cristian reported instances [...] no active bleeding observed. General Surgery at [facility] evaluated the patient, and felt no further action was required besides outpatient follow up. Upon arrival to [facility], Mrs. La reports moderate pain in her [...] Situation: Lives with and multiple pets in [place], [place]. Review of Systems: As per HPI, [...] direct admit to the Orthopaedics service from [facility] for definitive management of bilateral complex [...] in this encounter Procedure Notes * Jose Sinegr MD - 09/17/2018 9:30 AM EDTAssociated Order(s): EEG AWAKE, ASLEEP, DROWSY [facility] Department of Neurology Inpatient EEG Report Name of the Patient: Jenae La Date of : 1965 Date of Service: 09/17/2018 Referring physician: Dr. Abdirahman Enamorado BRIEF HISTORY: Jenae La is a 53 y.o. patient with episodes of tremors at home and witnessed facial and arm twitching at [facility] (witnessed by nursing). Also has hit [...] channel digitized electroencephalogram was performed in the [facility] Clinical Neurophysiology Laboratory. The 10/20 international system of electrode placement was used and bipolar and referential electrode montages were recorded. In addition to EEG the patient was monitored for EKGand lateral/vertical eye movements. Video was recorded during the session. The duration of the recording was 30 minutes. COMPLAINT ADJUSTER'S REPORT: Performed by: RR/CM Patient was not [...] Angel MD Clinical Neurophysiology Fellow Personal Pager #[phone] Epilepsy Neurology #[phone] Neurology Attending I have personally reviewed the EEG, and I agree with the details as written. The above report was formulated in discussion with me at the time of EEG reading, and I agree with it as documented. Jose Singer [place] [address] Pager: [phone], #[phone] Email: [email or web address] documented in this encounter Miscellaneous Notes * [...] quit. She is not interested in receiving [facility] Tobacco Cessation packet. A: Pt refused consult. P: Encouraged patient to reach out to PCP for nicotine inhaler prescription. Dimitrios Valle, MSN, RN-, [facility] Tobacco Wash Oil Pump Operator Helper [facility] Pager #[phone] * Plan of Care - Stacey Duenas [...] I have spoken with Thalia from the [place] office and she states shecannot get this DME on a Thu afternoon for Sat am but can do this for a Mon d/c. Pt states there jessy branch in [facility] that she has used in the past. Pt requests a referral to [facility] for an RN for skilled assessments, PT, OT, and steve for COLOR PRINTER OPERATOR. Pt requests Ofelia Barger if possible. [...] NO xxx Lauren Perales, PT, DPT Pager: [phone] Inpatient Physical Therapy 2017 PT Evaluation Code [...] (Group);Wheelchair Training/Management (Group) Bed Mobility Assessment/Treatment Scoot/Bridge Sutter (Bed Mobility) conditional independence Zleqoa-zy-Mwr Sutter (Bed Mobility) conditional independence Mvx-zw-Esstkm Sutter (Bed Mobility) conditional independence Safety Issues (Bed Mobility) decreased use of legs for bridging/pushing Impairments (Bed Mobility) pain;ROM (range of motion) decreased Comment (Bed Mobility) incr time/effort to/from EOB but no physical assistance, NWB maintained throughout, good SLR b/l LEs Transfer Assessment/Treatment Bed-Chair Sutter (Transfers) supervision required;conditional independence (initial supervision progressing to ind) Ljy-Mdqsv-Cof Assistive Device (Transfers) slide board Sutter (Toilet Transfers) supervision required;conditional independence Assistive Device [...] with assist, home with home health(PT) Pager: [phone] Ori Bates OT 09/17/2018 Occupational Therapy Rehabilitation [...] pain;ROM (range of motion) decreased;strength decreased Scoot/Bridge Sutter (Bed Mobility) conditional independence Jcbxjs-xl-Bjc Sutter (Bed Mobility) conditional independence Gew-km-Shsyoq Sutter (Bed Mobility) conditional independence Comment (Bed Mobility) Pt performeed bed mobility w/ increased time and pain. Transfer Assessment/Treatment Sutter (Toilet Transfers) supervision required;conditional independence Impairments (Transfers) pain;ROM (range of motion) decreased;strength decreased Nsp-Lrvil-Fym Assistive Device (Transfers) slide board Bed-Chair Sutter (Transfers) supervision required;contact guard assist Comment (Transfers) [...] Body Dressing Assessment/Training Assistive Devices (LB Dressing) station examiner Position (LB Dressing) sitting Sutter Level (LB Dressing) conditional independence Impairments (LB Dressing) pain;ROM (range of motion) decreased;strength decreased Comment (LB Dressing) Pt donned pants independently, w/ slight increase in time. Toileting Assessment/Training Position (Toileting) sitting Sutter Level (Toileting) conditional independence Impairments (Toileting) ROM [...] a transfer to the orthopedic service from [facility] for bilateral complex foot fractures. Per discussion with the consulting provider, patient was initially admitted to [facility] for bilateral foot fractures. This was in the setting of multiple falls in the previous days leading up to her admission. She was also noted to strike her head multiple times during these falls. In conversation withthe patient's at [facility], there was some discussion of some [...] L Elbow flexion 5/5 R, 5/5 L Truck Body Builder LE: Deferred due to her pain Sensation: [...] Negative mcL Appearance UA Clear Clear Spec [place] UA 1.012 1.002 - 1.030 Color UA [...] a transfer to the orthopedic service from [facility] for bilateral complex foot fractures. Discussion with Jenae and her significant other about her initial presentation makes us less concerned for seizure activity. However, it is hard to say what the nurses at [facility] actually saw but they describe twitching [...] - PGY-3 General Neurology Consults Team Pager #[phone] 09/16/18 Associated attestation - Greman Gu III, MD - 09/17/2018 7:43 AM [...] as documented. German Gu III, MD Pager: [phone] 7:42 AM 09/17/2018 * Op Note - Aparna Reed MD - 09/16/2018 2:02 PM EDT [facility] Operative Note Patient Name: Jenae La : [id number] MR#: [id number] Case Date: 09/16/2018 Surgeon: Surgeon(s) and Role: [...] 2nd metatarsal fracture, left 3rd metatarsal fracture, tvya7jw metatarsal fracture, left cuboid fracture. Procedure(s) (LRB): [...] the second tarsometatarsal joint. We used a jxnvl-kv-xiqbz clamp to reduce it, and then fixed [...] the articular surface. We then used a [place] to bring the impacted articular surface down [...] Reed MD - 09/16/2018 1:54 PM EDT [facility] Operative Note- Left foot This patient underwent bilateral procedures. This operative note is for the left foot. Patient Name: Jenae La : [id number] MR#: [id number] Case Date: 09/16/2018 Surgeon: Surgeon(s) and Role: [...] 2nd metatarsal fracture, left 3rd metatarsal fracture, [id number] metatarsal fracture, left cuboid fracture. ?? Procedure(s) [...] at [facility] and transferred to [facility] for further care. We discussed the risks [...] third metatarsal fracture was exposed using a [place]. A [id number]-vrjhr clamp was used to control the distal [...] toe extensors. Fracture was exposed using a [place]. A gomfh-yd-yxjlx clamp was used to control the distal [...] Implant Name Type Inv. Item Serial No. Wharfinger Chief Lot No. LRB No. Used Action PIN,KWIRE,TROC 1 ED,NS,[id number] ([id number]) (AutoReq) - [id number] IMPLANTS PIN,KWIRE,TROC 1 ED,NS,[id number] ([id number]) (AutoReq) [facility] Right 1 Implanted and Explanted SCREW,CRTX,STAP,T8,2.4X16MM ([id number]) - [id number] IMPLANTS SCREW,CRTX,STAP,T8,2.4X16MM ([id number]) [facility] Right 1 Implanted SCREW,CRTX,STAP,T8,2.4X26MM ([id number]) - [id number] IMPLANTS SCREW,CRTX,STAP,T8,2.4X26MM ([id number]) [facility] Right 1 Implanted SCREW,CRTX,STAP,T8,2.4X22MM ([id number]) - [id number] IMPLANTS SCREW,CRTX,STAP,T8,2.4X22MM ([id number]) [facility] Right 1 Implanted SCREW,SLFTP,LCK,STAR,2.4X12MM ([id number]) - [id number] IMPLANTS SCREW,SLFTP,LCK,STAR,2.4X12MM ([id number]) [facility] Right 1 Implanted SCREW,LCK,STAP,STAR,2.4X6MM (3332969) - [id number] IMPLANTS SCREW,LCK,STAP,STAR,2.4X6MM ([id number]) [facility] Right 1 Implanted SCREW,LCK,STAP,STAR,2.4X18MM ([id number]) - [id number] IMPLANTS SCREW,LCK,STAP,STAR,2.4X18MM ([id number])[facility] Right 1 Implanted SCREW,CRTX,STAP,STRDRV,2X9MM (0747206) - [id number] IMPLANTS SCREW,CRTX,STAP,STRDRV,2X9MM (5740703)[facility] Right 1 Implanted SCREW,CRTX,STAP,STAR,2X24MM (2536544) - [id number] IMPLANTS SCREW,CRTX,STAP,STAR,2X24MM (3649399) [facility] Right 1 Wasted SCREW,CRTX,STAP,STAR,2X28MM ([id number]) - [id number] IMPLANTS SCREW,CRTX,STAP,STAR,2X28MM (2707059) [facility] Right 1 Implanted SCREW,CRTX,STAP,STAR,2X18MM (5725376) - [id number] IMPLANTS SCREW,CRTX,STAP,STAR,2X18MM ([id number]) [facility] Right 1 Implanted SCREW,LCK,STAP,STAR,2X14MM (2711609) - [id number] IMPLANTS SCREW,LCK,STAP,STAR,2X14MM (0642445) [facility] Right 1 Implanted SCREW,LCK,STAP,STAR,2X18MM (6574682) - [id number] IMPLANTS SCREW,LCK,STAP,STAR,2X18MM (3607251) [facility] Right 1 Implanted PLATE,LCP,7H,2.0X52MM (2456735) - [id number] IMPLANTS PLATE,LCP,7H,2.0X52MM (2450184) [facility] Right 1 Implanted PLATE,CNDYLR,LCP,7H,2.4MM (4474227) (AutoReq) - [id number] IMPLANTS PLATE,CNDYLR,LCP,7H,2.4MM (8572883) (AutoReq) [facility] Right 1 Implanted BONE,CRUSHED,CANCELLOUS,10CC (2890035) (AutoReq) - [id number] IMPLANTS BONE,CRUSHED,CANCELLOUS,10CC([id number]) (AutoReq) [facility] [id number] Right 1 Implanted PIN,KWIRE,TROC 1ED,NS,[id number] ([id number]) - [id number] IMPLANTS PIN,KWIRE,TROC 1ED,NS,[id number] ([id number]) [facility] Right 2 Implanted and Explanted PIN,KWIRE,PLAIN,2,0.605I4QZ,NS (9712163) - [id number] IMPLANTS PIN,KWIRE,PLAIN,2,0.293O0FN,NS (3007018) [employer] [facility] Left 3 Implanted PLATE,LCP,CNDYLR,7H-SHFT,2MM (8461440) - [id number] IMPLANTS PLATE,LCP,CNDYLR,7H-SHFT,2MM (1813715)[facility] Left 1 Implanted SCREW,LCK,STAP,STAR,2X12MM ([id number]) - [id number] IMPLANTS SCREW,LCK,STAP,STAR,2X12MM (1229306) [facility] Left 1 Implanted SCREW,LCK,STAP,STAR,2X10MM (3656731) - [id number] IMPLANTS SCREW,LCK,STAP,STAR,2X10MM (9408951) [facility] Left 1 Implanted SCREW,CRTX,STAP,STAR,2X12MM ([id number]) - [id number] IMPLANTS SCREW,CRTX,STAP,STAR,2X12MM ([id number]) [facility] Left 1 Implanted SCREW,CRTX,STAP,STAR,2X14MM ([id number]) - [id number] IMPLANTS SCREW,CRTX,STAP,STAR,2X14MM (7427369) [facility] Left 1 Implanted SCREW,CRTX,STAP,STAR,2X14MM ([id number]) - [id number] IMPLANTS SCREW,CRTX,STAP,STAR,2X14MM ([id number]) [facility] Right 1 Implanted SCREW,VA,LCK,SLFTP,T6,2X22MM (3919163) - [id number] IMPLANTS SCREW,VA,LCK,SLFTP,T6,2X22MM (2162315)[employer] Right 1 Implanted SCREW,VA,LCK,SLFTP,T6,2X18MM ([id number]) - [id number] IMPLANTS SCREW,VA,LCK,SLFTP,T6,2X18MM (4725660)[employer] Right 1 Implanted SCREW,VA,LCK,SLFTP,T6,2X16MM ([id number]) - [id number] IMPLANTS SCREW,VA,LCK,SLFTP,T6,2X16MM ([id number])[facility] Right 1 Implanted SCREW,CRTX,STAP,STAR,2X16MM ([id number]) - [id number] IMPLANTS SCREW,CRTX,STAP,STAR,2X16MM (2289220) [facility] Right 1 Implanted SCREW,CRTX,STAP,STAR,2X12MM (1876238) - [id number] IMPLANTS SCREW,CRTX,STAP,STAR,2X12MM (6505737) [facility] Right 1 Implanted SCREW,CRTX,STAP,STRDRV,2X10MM (1786011) - [id number] IMPLANTS SCREW,CRTX,STAP,STRDRV,2X10MM (5082040) [facility] Left 1 Implanted GUIDEW,THRD,1.1S757EU (9862343) - [id number] IMPLANTS GUIDEW,THRD,1.3A154AR (2753077) [facility]; [facility] Right 3 Implanted Number of [...] or concerns. Lauren Perales, PT, DPT Pager: [phone] 09/16/18 Inpatient Rehabilitation Department * Plan of [...] up as able/appropriate. Ori Valencia OT Pager: [phone] * Initial Assessments - Kathrin Madsen RN [...] wyman Other: Primary Care Provider: LILLY Gaitan [phone] Patient/Caregiver Goals of Treatment: agreed to go [...] kind. She agrees to snf referrals, #1 [facility], [facility]. Referral submitted. Plan: snf vs swing vs acute. A member of the Care Management team will continue to monitor progress, follow for continuity of care and assist with transition of care planning. Kathrin Madsen RN Pager: [phone] * Plan of Care - Horace Beckman [...] Glucose, POC 139 65 - 199 mg/dL [facility] Comment: Supplemental ranges: <140 mg/dL before meals <180 mg/dL all other times of the day Blood specimen (specimen) 09/20/2018 11:29 AM EDT 09/20/2018 11:29 AM EDT Javad Urban MD POINT OF CARE TEST O RDERABLES [facility] [place] [address] * POCT Glucose (09/20/2018 8:02 AM EDT) Glucose, POC 167 65 - 199 mg/dL [facility] Comment: Supplemental ranges: <140 mg/dL before meals <180 mg/dL all other times of the day Blood specimen (specimen) 09/20/2018 8:02 AM EDT 09/20/2018 8:02 AM EDT Javad Urban MD POINT OF CARE TEST O JONY Performing Organization Address [facility]/ZIP Co de Phone Number [facility] [place] [address] * POCT Glucose (09/20/2018 4:03 AM EDT) Glucose, POC 127 65 - 199 mg/dL [facility] Comment: Supplemental ranges: <140 mg/dL before meals <180 mg/dL all other times of the day Blood specimen (specimen) 09/20/2018 4:03 AM EDT 09/20/2018 4:03 AM EDT Javad Urban MD POINT OF CARE TEST O JONY Performing Organization Address [facility] Co de Phone Number [facility] [place] [address] * POCT Glucose (09/19/2018 11:45 PM EDT) Glucose, POC 146 65 - 199 mg/dL [facility] Comment: Supplemental ranges: <140 mg/dL before meals <180 mg/dL all other times of the day Blood specimen (specimen) 09/19/2018 11:45 PM EDT 09/19/2018 11:45 PM EDT Javad Urban MD POINT OF CARE TEST O JONY Performing Organization Address [facility] Co de Phone Number [facility] [place] [address] * POCT Glucose (09/19/2018 7:26 PM EDT) Glucose, POC 149 65 - 199 mg/dL [facility] Comment: Supplemental ranges: <140 mg/dL before meals <180 mg/dL all other times of the day Blood specimen (specimen) 09/19/2018 7:26 PM EDT 09/19/2018 7:26 PM EDT Javad Urban MD POINT OF CARE TEST O RDERALISSETT Performing Organization Address City/[facility] Co de Phone Number [facility] [place] [address] * POCT Glucose (09/19/2018 4:14 PM EDT) Glucose, POC 144 65 - 199 mg/dL [facility] Comment: Supplemental ranges: <140 mg/dL before meals <180 mg/dL all other times of the day Blood specimen (specimen) 09/19/2018 4:14 PM EDT 09/19/2018 4:14 PM EDT Javad Urban MD POINT OF CARE TEST O RDERALISSETT Performing Organization Address [facility] Co de Phone Number [facility] [place] [address] * POCT Glucose (09/19/2018 11:28 AM EDT) Glucose, POC 170 65 - 199 mg/dL [facility] Comment: Supplemental ranges: <140 mg/dL before meals <180 mg/dL all other times of the day Blood specimen (specimen) 09/19/2018 11:28 AM EDT 09/19/2018 11:28 AM EDT Javad Urban MD POINT OF CARE TEST O RDERALISSETT Performing Organization Address City/[facility]/ZIP Co de Phone Number [facility] [place] [address] * POCT Glucose (09/19/2018 7:54 AM EDT) Glucose, POC 120 65 - 199 mg/dL [facility] Comment: Supplemental ranges: <140 mg/dL before meals <180 mg/dL all other times of the day Blood specimen (specimen) 09/19/2018 7:54 AM EDT 09/19/2018 7:54 AM EDT Javad Urban MD POINT OF CARE TEST O JONY Performing Organization Address [facility] Co de Phone Number [facility] [place] [address] * POCT Glucose (09/19/2018 3:42 AM EDT) Glucose, POC 105 65 - 199 mg/dL [facility] Comment: Supplemental ranges: <140 mg/dL before meals <180 mg/dL all other times of the day Blood specimen (specimen) 09/19/2018 3:42 AM EDT 09/19/2018 3:42 AM EDT Javad Urban MD POINT OF CARE TEST O JONY Performing Organization Address [facility] Co de Phone Number [facility] [place] [address] * Magnesium (09/19/2018 3:40 AM EDT) Magnesium 0.74 0.69 - 1.07 mmol/L [facility] Blood specimen (specimen) Venous Draw / Unknown 09/19/2018 3:40 AM EDT 09/19/2018 4:40 AM EDT Narrative Resulting Agency Comment Spec In Lab Buffy CARR CHEMISTRY ORDERAB LES Performing Organization Address [facility] Co de Phone Number [facility] [place] [address] * (ABNORMAL) Basic Metabolic Panel (non-fasting) (09/19/2018 3:40 AM EDT) Glucose 111 65 - 199 mg/dL [facility] Comment:Diabetes: >=200 mg/d L plus symptoms Blood Urea Nitrogen 11 8 - 18 mg/dL [facility] Creatinine 0.64(L) 0.70 - 1.20 mg/dL [facility] Sodium 140 135 - 145 mmol/L [facility] Potassium 4.0 3.5 - 5.0 mmol/L [facility] Comment: Please note: ??Patients with WBC >100,000 may have falsely elevated Potassium levels. ??For accurate Potassium quantification in these patients send serum separator tube (gold top) for subsequent determinations. ??Contact the Clinical Chemistry Laboratory if there are any questions. Chloride 104 98 - 107 mmol/L [facility] Carbon Dioxide 27 22 - 31 mmol/L [facility] Anion Gap 9 5 - 15 mmol/L [facility] Calcium 8.9 8.5 - 10.5 mg/dL [facility] Est Glomerular Filtration Rate 103 >=60 mL/min/1. 73 m?? [facility] Comment: The eGFR was calculated using the CKD-EPI equation. As with all creatinine based estimates of kidney function, eGFR values calculated with the CKD-EPI equation are not accurate in patients with acute kidney failure, extremes of body mass or the acutely ill. [email or web address] eGFR 120 >=60 mL/min/1. 73 m?? [facility] Comment: The eGFR was calculated using the CKD-EPI equation. As with all creatinine based estimates of kidney function, eGFR values calculated with the CKD-EPI equation are not accurate in patients with acute kidney failure, extremes of body mass or the acutely ill. [email or web address] Blood specimen (specimen) 09/19/2018 3:40 AM EDT 09/19/2018 3:53 AM EDT Narrative Resulting Agency Comment Spec In Lab Trina Loo APRN CHEMISTRY ORDERABLE S [facility] [place] [address] * POCT Glucose (09/18/2018 11:20 PM EDT) Glucose, POC 150 65 - 199 mg/dL [facility] Comment: Supplemental ranges: <140 mg/dL before meals <180 mg/dL all other times of the day Blood specimen (specimen) 09/18/2018 11:20 PM EDT 09/18/2018 11:20 PM EDT Javad Urban MD POINT OF CARE TEST O RDERALISSETT Performing Organization Address City/[facility] Co de Phone Number [facility] [place] [address] * POCT Glucose (09/18/2018 7:57 PM EDT) Glucose, POC 103 65 - 199 mg/dL [facility] Comment: Supplemental ranges: <140 mg/dL before meals <180 mg/dL all other times of the day Blood specimen (specimen) 09/18/2018 7:57 PM EDT 09/18/2018 7:57 PM EDT Javad Urban MD POINT OF CARE TEST O JONY Performing Organization Address [facility] Co de Phone Number [facility] [place] [address] * POCT Glucose (09/18/2018 4:56 PM EDT) Glucose, POC 142 65 - 199 mg/dL [facility] Comment: Supplemental ranges: <140 mg/dL before meals <180 mg/dL all other times of the day Blood specimen (specimen) 09/18/2018 4:56 PM EDT 09/18/2018 4:56 PM EDT Javad Urban MD POINT OF CARE TEST O RDERALISSETT Performing Organization Address [facility] Co de Phone Number [facility] [place] [address] * POCT Glucose (09/18/2018 11:59 AM EDT) Glucose, POC 160 65 - 199 mg/dL [facility] Comment: Supplemental ranges: <140 mg/dL before meals <180 mg/dL all other times of the day Blood specimen (specimen) 09/18/2018 11:59 AM EDT 09/18/2018 11:59 AM EDT Javad Urban MD POINT OF CARE TEST O JONY Performing Organization Address [facility] Co de Phone Number [facility] [place] [address] * POCT Glucose (09/18/2018 7:55 AM EDT) Glucose, POC 126 65 - 199 mg/dL [facility] Comment: Supplemental ranges: <140 mg/dL before meals <180 mg/dL all other times of the day Blood specimen (specimen) 09/18/2018 7:55 AM EDT 09/18/2018 7:55 AM EDT Javad Urban MD POINT OF CARE TEST O JONY Performing Organization Address [facility] Co de Phone Number [facility] [place] [address] * POCT Glucose (09/18/2018 3:58 AM EDT) Glucose, POC 125 65 - 199 mg/dL [facility] Comment: Supplemental ranges: <140 mg/dL before meals <180 mg/dL all other times of the day Blood specimen (specimen) 09/18/2018 3:58 AM EDT 09/18/2018 3:58 AM EDT Javad Urban MD POINT OF CARE TEST O JONY Performing Organization Address [facility] Co de Phone Number [facility] [place] [address] * (ABNORMAL) Magnesium (09/18/2018 3:37 AM EDT) Magnesium 0.67(L) 0.69 - 1.07 mmol/L [facility] Blood specimen (specimen) Venous Draw / Unknown 09/18/2018 3:37 AM EDT 09/18/2018 4:55 AM EDT Narrative Resulting Agency Comment Spec In Lab Trina Loo CARLOS CHEMISTRY ORDERABLE S [facility] [place] [address] * (ABNORMAL) Basic Metabolic Panel (non-fasting) (09/18/2018 3:37 AM EDT) Glucose 106 65 - 199 mg/dL [facility] Comment:Diabetes: >=200 mg/d L plus symptoms Blood Urea Nitrogen 7(L) 8 - 18 mg/dL [facility] Creatinine 0.62(L) 0.70 - 1.20 mg/dL [facility] Sodium 143 135 - 145 mmol/L [facility] Potassium 3.1(L) 3.5 - 5.0 mmol/L [facility] Comment: Please note: ??Patients with WBC >100,000 may have falsely elevated Potassium levels. ??For accurate Potassium quantification in these patients send serum separator tube (gold top) for subsequent determinations. ??Contact the Clinical Chemistry Laboratory if there are any questions. Chloride 106 98 - 107 mmol/L [facility] Carbon Dioxide 26 22 - 31 mmol/L [facility] Anion Gap 11 5 - 15 mmol/L [facility] Calcium 8.5 8.5 - 10.5 mg/dL [facility] Est Glomerular Filtration Rate 104 >=60 mL/min/1. 73 m?? [facility] Comment: The eGFR was calculated using the CKD-EPI equation. As with all creatinine based estimates of kidney function, eGFR values calculated with the CKD-EPI equation are not accurate in patients with acute kidney failure, extremes of body mass or the acutely ill. [email or web address] eGFR 121 >=60 mL/min/1. 73 m?? [facility] Comment: The eGFR was calculated using the CKD-EPI equation. As with all creatinine based estimates of kidney function, eGFR values calculated with the CKD-EPI equation are not accurate in patients with acute kidney failure, extremes of body mass or the acutely ill. [email or web address] Blood specimen (specimen) 09/18/2018 3:37 AM EDT 09/18/2018 3:59 AM EDT Narrative Resulting Agency Comment Spec In Lab Trina Loo APRN CHEMISTRY ORDERABLE S Performing Organization Address [facility] Co de Phone Number [facility] [place] [address] * POCT Glucose (09/17/2018 11:33 PM EDT) Glucose, POC 145 65 - 199 mg/dL [facility] Comment: Supplemental ranges: <140 mg/dL before meals <180 mg/dL all other times of the day Blood specimen (specimen) 09/17/2018 11:33 PM EDT 09/17/2018 11:33 PM EDT Javad Urban MD POINT OF CARE TEST O RDERABLES Performing Organization Address [facility] Co de Phone Number [facility] [place] [address] * (ABNORMAL) POCT Glucose (09/17/2018 7:24 PM EDT) Glucose, POC 200(H) 65 - 199 mg/dL [facility] Comment: Supplemental ranges: <140 mg/dL before meals <180 mg/dL all other times of the day Blood specimen (specimen) 09/17/2018 7:24 PM EDT 09/17/2018 7:24 PM EDT Javad Urban MD POINT OF CARE TEST O RDERALISSETT Performing Organization Address [facility] Co de Phone Number [facility] [place] [address] * POCT Glucose (09/17/2018 3:16 PM EDT) Glucose, POC 180 65 - 199 mg/dL [facility] Comment: Supplemental ranges: <140 mg/dL before meals <180 mg/dL all other times of the day Blood specimen (specimen) 09/17/2018 3:16 PM EDT 09/17/2018 3:16 PM EDT Javad Urban MD POINT OF CARE TEST O JONY Performing Organization Address [facility] Co de Phone Number [facility] [place] [address] * POCT Glucose (09/17/2018 12:01 PM EDT) Glucose, POC 137 65 - 199 mg/dL [facility] Comment: Supplemental ranges: <140 mg/dL before meals <180 mg/dL all other times of the day Blood specimen (specimen) 09/17/2018 12:01 PM EDT 09/17/2018 12:01 PM EDT Javad Urban MD POINT OF CARE TEST O JONY Performing Organization Address [facility] de Phone Number [facility] [place] [address] * EEG awake, asleep, drowsy, routine (09/17/2018 9:30 AM EDT) Narrative Jose Singer MD - 09/17/2018 9:30 AM EDT Jose Singer MD ? 09/21/2018 10:14 AM [facility] Department of Neurology Inpatient EEG Report Name of the Patient: ??Jenae La Date of : ?1965 Date of Service: ?09/17/2018 Referring physician: ?Dr. Abdirahman Enamorado BRIEF HISTORY: Jenae La is a 53 y.o. patient with episodes of tremors at home and witnessed facial and arm twitching at [facility] (witnessed by nursing). Also has hit [...] tablet 950 mg ??950 mg Oral Daily Bufyf Russell PA ?? 950 mg at 09/17/1844 [...] digitized electroencephalogram was performed in the [facility] Clinical Neurophysiology Laboratory. The 10/20 international system of electrode placement was used and bipolar and referential electrode montages were recorded. ??In addition to EEG the patient was monitored for EKG and lateral/vertical eye movements. Video was recorded during the session. The duration of the recording was 30 minutes. COMPLAINT ADJUSTER'S REPORT:Performed by: RR/GERHARD Patient was not sleep [...] Angel MD Clinical Neurophysiology Fellow Personal Pager #[phone] Epilepsy Neurology #[phone] Neurology Attending I have personally reviewed the EEG, and I agree with the details as written. ?? The above report was formulated in discussion with me at the time of EEG reading, and I agree with it as documented. Jose Singer [place] [address] Pager: [phone], #[phone] Email: [email or web address] Javad Urban MD NEUROLOGY ORDERABLES * (ABNORMAL) Basic Metabolic Panel (non-fasting) (09/17/2018 9:02 AM EDT) Glucose 121 65 - 199 mg/dL [facility] Comment:Diabetes: >=200 mg/d L plus symptoms Blood Urea Nitrogen 9 8 - 18 mg/dL [facility] Creatinine 0.59(L) 0.70 - 1.20 mg/dL [facility] Sodium 144 135 - 145 mmol/L [facility] Potassium 2.9(Criti toy) 3.5 - 5.0 mmol/L [facility] Comment: Called by: maged/sb, Read back by: Aruna Calvo, Date/Time:09/17/18 10:19. Please note: ??Patients with WBC >100,000 may have falsely elevated Potassium levels. ??For accurate Potassium quantification in these patients send serum separator tube (gold top) for subsequent determinations. ??Contact the Clinical Chemistry Laboratory if there are any questions. Chloride 108(H) 98 - 107 mmol/L [facility] Carbon Dioxide 25 22 - 31 mmol/L [facility] Anion Gap 11 5 - 15 mmol/L [facility] Calcium 8.0(L) 8.5 - 10.5 mg/dL [facility] Est Glomerular Filtration Rate 106 >=60 mL/min/1. 73 m?? [facility] Comment: The eGFR was calculated using the CKD-EPI equation. As with all creatinine based estimates of kidney function, eGFR values calculated with the CKD-EPI equation are not accurate in patients with acute kidney failure, extremes of body mass or the acutely ill. [email or web address] eGFR 123 >=60 mL/min/1. 73 m?? [facility] Comment: The eGFR was calculated using the CKD-EPI equation. As with all creatinine based estimates of kidney function, eGFR values calculated with the CKD-EPI equation are not accurate in patients with acute kidney failure, extremes of body mass or the acutely ill. [email or web address] Blood specimen (specimen) 09/17/2018 9:02 AM EDT 09/17/2018 9:17 AM EDT Narrative Resulting Agency Comment Spec In Lab Javad Urban MD CHEMISTRY ORDERABLES Performing Organization Address [facility]/ZIP Co de Phone Number [facility] [place] [address] * POCT Glucose (09/17/2018 7:33 AM EDT) Glucose, POC 136 65 - 199 mg/dL [facility] Comment: Supplemental ranges: <140 mg/dL before meals <180 mg/dL all other times of the day Blood specimen (specimen) 09/17/2018 7:33 AM EDT 09/17/2018 7:33 AM EDT Javad Urban MD POINT OF CARE TEST O RDERABLES Performing Organization Address [facility] Co de Phone Number [facility] [place] [address] * POCT Glucose (09/17/2018 3:29 AM EDT) Glucose, POC 126 65 - 199 mg/dL [facility] Comment: Supplemental ranges: <140 mg/dL before meals <180 mg/dL all other times of the day Blood specimen (specimen) 09/17/2018 3:29 AM EDT 09/17/2018 3:29 AM EDT Javad Urban MD POINT OF CARE TEST O RDSILVIO Performing Organization Address [facility] Co de Phone Number [facility] [place] [address] * POCT Glucose (09/16/2018 11:25 PM EDT) Glucose, POC 123 65 - 199 mg/dL [facility] Comment: Supplemental ranges: <140 mg/dL before meals <180 mg/dL all other times of the day Blood specimen (specimen) 09/16/2018 11:25 PM EDT 09/16/2018 11:25 PM EDT Javad Urban MD POINT OF CARE TEST O JONY Performing Organization Address [facility] Co de Phone Number [facility] [place] [address] * POCT Glucose (09/16/2018 8:29 PM EDT) Glucose, POC 114 65 - 199 mg/dL [facility] Comment: Supplemental ranges: <140 mg/dL before meals <180 mg/dL all other times of the day Blood specimen (specimen) 09/16/2018 8:29 PM EDT 09/16/2018 8:29 PM EDT Javad Urban MD POINT OF CARE TEST Rosie BORGES Performing Organization Address [facility] Co de Phone Number [facility] [place] [address] * POCT Glucose (09/16/2018 3:35 PM EDT) Glucose, POC 106 65 - 199 mg/dL [facility] Comment: Supplemental ranges: <140 mg/dL before meals <180 mg/dL all other times of the day Blood specimen (specimen) 09/16/2018 3:35 PM EDT 09/16/2018 3:35 PM EDT Javad Urban MD POINT OF CARE TEST Rosie BORGES Performing Organization Address [facility] Co de Phone Number [facility] [place] [address] * (ABNORMAL) Basic Metabolic Panel (non-fasting) (09/16/2018 3:33 PM EDT) Glucose 106 65 - 199 mg/dL [facility] Comment:Diabetes: >=200 mg/d L plus symptoms Blood Urea Nitrogen 13 8 - 18 mg/dL [facility] Creatinine 0.62(L) 0.70 - 1.20 mg/dL [facility] Sodium 147(H) 135 - 145 mmol/L [facility] Potassium 3.2(L) 3.5 - 5.0 mmol/L [facility] Comment: Please note: ??Patients with WBC >100,000 may have falsely elevated Potassium levels. ??For accurate Potassium quantification in these patients send serum separator tube (gold top) for subsequent determinations. ??Contact the Clinical Chemistry Laboratory if there are any questions. Chloride 112(H) 98 - 107 mmol/L [facility] Carbon Dioxide 22 22 - 31 mmol/L [facility] Anion Gap 13 5 - 15 mmol/L [facility] Calcium 8.1(L) 8.5 - 10.5 mg/dL [facility] Est Glomerular Filtration Rate 104 >=60 mL/min/1. 73 m?? [facility] Comment: The eGFR was calculated using the CKD-EPI equation. As with all creatinine based estimates of kidney function, eGFR values calculated with the CKD-EPI equation are not accurate in patients with acute kidney failure, extremes of body mass or the acutely ill. [email or web address] eGFR 121 >=60 mL/min/1. 73 m?? [facility] Comment: The eGFR was calculated using the CKD-EPI equation. As with all creatinine based estimates of kidney function, eGFR values calculated with the CKD-EPI equation are not accurate in patients with acute kidney failure, extremes of body mass or the acutely ill. [email or web address] Blood specimen (specimen) 09/16/2018 3:33 PM EDT 09/16/2018 3:49 PM EDT Narrative Resulting Agency Comment Spec In Lab Javad Urban MD CHEMISTRY ORDERABLES [facility] [place] [address] * Hemoglobin A1c (09/16/2018 3:33 PM EDT) Hemoglobin A1c 5.5 4.3 - 5.6 % [facility] Comment: Reference Range: 4.3 [...] Mellitus, Diabetes Care 2013; 36: Suppl. 1, S67-10 Estimated Average Glucose 111 mg/dL [facility] Comment: eAG equivalents for [...] into estimated average glucose values. ??Diabetes Care 2008:31(8):6416-9802. Blood specimen (specimen) 09/16/2018 3:33 PM EDT 09/16/2018 3:49 PM EDT Narrative Resulting Agency Comment Spec In Lab Javad Urban MD CHEMISTRY ORDERABLES [facility] [place] [address] * XR Foot Min 3 views Bilat (Generic) (09/16/2018 3:16 PM EDT) Anatomical Region Laterality Modality Foot Bilateral Digital Radiogra phy Impressions 09/16/2018 3:47 PM EDT ORIF of bilateral complex foot fracture and dislocations. Thank you for letting us participate in the care of this patient. For questions regarding this report, please contact the number below. ? Electronically signed by: Sheila Joaquin [facility] ([phone]), at 09/16/2018 3:47 PM Narrative 09/16/2018 3:47 [...] Glucose, POC 126 65 - 199 mg/dL [facility] Comment: Supplemental ranges: <140 mg/dL before meals <180 mg/dL all other times of the day Blood specimen (specimen) 09/16/2018 1:56 PM EDT 09/16/2018 1:56 PM EDT Javad Urban MD POINT OF CARE TEST O RDERABLES [facility] [place] [address] * XR Fluoro No Rad <1Hr - OR Use (09/16/2018 1:10 PM EDT) Narrative RAD - 09/16/2018 1:11 PM EDT This order does not need a radiologist interpretation. ?? Javad Urban MD IMG FLUORO ORDERABLE S Performing Organization Address [facility] Co de Phone Number [place], [place] * POCT Glucose (09/16/2018 7:46 AM EDT) Glucose, POC 131 65 - 199 mg/dL [facility] Comment: Supplemental ranges: <140 mg/dL before meals <180 mg/dL all other times of the day Blood specimen (specimen) 09/16/2018 7:46 AM EDT 09/16/2018 7:46 AM EDT Javad Urban MD POINT OF CARE TEST O RDERABLES Performing Organization Address [facility] Co de Phone Number [facility] [place] [address] * Urine Hold (09/16/2018 6:07 AM EDT) Hold, Urine Sample in lab. [facility] Urine specimen (specimen) Urine / Unknown 09/16/2018 6:07 AM EDT 09/16/2018 6:54 AM EDT Sanket Freeman MD URINE ORDERABLES Performing Organization Address [facility] Co de Phone Number [facility] [place] [address] * (ABNORMAL) Urinalysis with reflex Culture (09/16/2018 6:07 AM EDT) Glucose, Urine Dipstick Negative Negative mg/dL [facility] Protein, Urine Dipstick Negative Negative mg/dL [facility] Bilirubin, [...] [facility] Blood, Urine Dipstick Negative Negative mg/dL [facility] Ketone, Urine Dipstick 5(A) Negative mg/dL [facility] Nitrite, Urine Dipstick Negative Negative [facility] Leukocytes, Urine Dipstick Negative Negative [facility] Appearance, Urine Dipstick Clear Clear [facility] Specific [place] Urine Automated 1.012 1.002 - 1.030 [facility] Color, Urine Dipstick Straw Yellow [facility] Reflex to Culture No [facility] Urine specimen (specimen) 09/16/2018 6:07 AM EDT 09/16/2018 6:52 AM EDT Narrative Resulting Agency Comment Spec In Lab Javad Urban MD URINE ORDERABLES Performing Organization Address [facility] Co de Phone Number [facility] [place] [address] * POCT Glucose (09/16/2018 3:30 AM EDT) Glucose, POC 126 65 - 199 mg/dL [facility] Comment: Supplemental ranges: <140 mg/dL before meals <180 mg/dL all other times of the day Blood specimen (specimen) 09/16/2018 3:30 AM EDT 09/16/2018 3:30 AM EDT Javad Urban MD POINT OF CARE TEST O RDERABLES Performing Organization Address [facility]/ZIP Co de Phone Number [facility] [place] [address] * POCT Glucose (09/15/2018 10:59 PM EDT) Glucose, POC 143 65 - 199 mg/dL [facility] Comment: Supplemental ranges: <140 mg/dL before meals <180 mg/dL all other times of the day Blood specimen (specimen) 09/15/2018 10:59 PM EDT 09/15/2018 10:59 PM EDT Javad Urban MD POINT OF CARE TEST O JONY Performing Organization Address [facility] Co de Phone Number [facility] [place] [address] * POCT Glucose (09/15/2018 8:10 PM EDT) Glucose, POC 100 65 - 199 mg/dL [facility] Comment: Supplemental ranges: <140 mg/dL before meals <180 mg/dL all other times of the day Blood specimen (specimen) 09/15/2018 8:10 PM EDT 09/15/2018 8:10 PM EDT Javad Urban MD POINT OF CARE TEST Rosie BORGES Performing Organization Address [facility] Co de Phone Number [facility] [place] [address] * POCT Glucose (09/15/2018 3:43 PM EDT) Glucose, POC 173 65 - 199 mg/dL [facility] Comment: Supplemental ranges: <140 mg/dL before meals <180 mg/dL all other times of the day Blood specimen (specimen) 09/15/2018 3:43 PM EDT 09/15/2018 3:43 PM EDT Javad Urban MD POINT OF CARE TEST O JONY Performing Organization Address [facility] Co de Phone Number [facility] [place] [address] * POCT Glucose (09/15/2018 12:05 PM EDT) Glucose, POC 177 65 - 199 mg/dL [facility] Comment: Supplemental ranges: <140 mg/dL before meals <180 mg/dL all other times of the day Blood specimen (specimen) 09/15/2018 12:05 PM EDT 09/15/2018 12:05 PM EDT Javad Urban MD POINT OF CARE TEST O JONY Performing Organization Address [facility] de Phone Number [facility] [place] [address] * (ABNORMAL) POCT Glucose (09/15/2018 7:39 AM EDT) Glucose, POC 206(H) 65 - 199 mg/dL [facility] Comment: Supplemental ranges: <140 mg/dL before meals <180 mg/dL all other times of the day Blood specimen (specimen) 09/15/2018 7:39 AM EDT 09/15/2018 7:39 AM EDT Javad Urban MD POINT OF CARE TEST O JONY Performing Organization Address [facility] de Phone Number [facility] [place] [address] * POCT Glucose (09/15/2018 4:12 AM EDT) Glucose, POC 141 65 - 199 mg/dL [facility] Comment: Supplemental ranges: <140 mg/dL before meals <180 mg/dL all other times of the day Blood specimen (specimen) 09/15/2018 4:12 AM EDT 09/15/2018 4:12 AM EDT Javad Urban MD POINT OF CARE TEST O JONY Performing Organization Address [facility] Co de Phone Number [facility] [place] [address] * ABORH Recheck Status (09/15/2018 3:44 AM EDT) ABORH Recheck Order Order Placed [facility] ABORH Type Recheck Complete [facility] Blood specimen (specimen) 09/15/2018 3:44 AM EDT 09/15/2018 3:59 AM EDT Narrative Resulting Agency Comment Spec In Lab Ori Santos MD BLOOD BANK LAB ORDER MADHAVI Performing Organization Address City/[facility]/ZIP Co de Phone Number [facility] [place] [address] * Antibody screen (09/15/2018 3:44 AM EDT) Ab Screen Interp Negative [facility] Expires at [id number] on: 09/18/2018 [facility] Blood specimen (specimen) 09/15/2018 3:44 AM EDT 09/15/2018 3:59 AM EDT Narrative Resulting Agency Comment Spec In Lab Ori Santos MD BLOOD BANK LAB ORDER MADHAVI Performing Organization Address City/[facility] Co de Phone Number [facility] [place] [address] * ABO/Rh Typing (09/15/2018 3:44 AM EDT) Pathologist [facility] ABORH Type A Pos [facility] Blood specimen (specimen) 09/15/2018 3:44 AM EDT 09/15/2018 3:59 AM EDT Narrative Resulting Agency Comment Spec In Lab Ori Santos MD BLOOD BANK LAB ORDER MADHAVI Performing Organization Address City/[facility]/ZIP Co de Phone Number [facility] [place] [address] * (ABNORMAL) Differential, Automated (09/15/2018 3:44 AM EDT) Neutrophil % 64.7 % [facility] Neutrophil Absolute 7.24(H) 1.70 - 6.10 x10(3)/mc L [facility] Lymph % 21.6 % [facility] Lymphocytes Abs 2.4 0.9 - 3.2 x10(3)/mc L [facility] Monocyte % 10.8 % [facility] Monocyte Abs 1.2(H) 0.3 - 0.9 x10(3)/[facility] LABOR[facility] Eos % 0.2 % [facility] Eosinophils Abs 0.0 0.0 - 0.4 x10(3)/[facility] Basophil % 0.4 % [facility] Baso Absolute 0.0 0.0 - 0.1 x10(3)/[facility] LAB[facility] Immature Gran % 2.30 % [facility] Comment: Immature granulocytes(IG's)percentage and absolute count will include metamyelocytes, myelocytes, and promyelocytes. Blood smears from CBCs yielding IG's will be scanned manually for concordance. If this scan disagrees with the automated IG or if promyelocytes are noted, a manual differential will be performed. Immature Gran Absolute 0.26(H) 0.00 - 0.04 x10(3)/[facility] Blood specimen (specimen) 09/15/2018 3:44 AM EDT 09/15/2018 4:18 AM EDT Narrative Resulting Agency Comment Spec In Lab Ori Santos MD HEMATOLOGY ORDERABLE S [facility] [place] [address] * (ABNORMAL) Hemogram (09/15/2018 3:44 AM EDT) White Blood Cell 11.2(H) 4.0 - 9.5 x10(3)/[facility] Red Blood Cell 3.05(L) 4.00 - 5.21 x10(6)/[facility] Hemoglobin 9.6(L) 11.7 - 15.5 gm/dL [facility] Hematocrit 29.5(L) 35.7 - 45.8 % [facility] Mean Cell Volume 96.7(H) 82.6 - 94.4 fL [facility] Mean Cell Hemoglobin 31.5 27.1 - 32.0 pg [facility] Mean Cell Hemoglobin Concentration 32.5 31.7 - 35.0 gm/dL [facility] Platelet 244 145 - 357 x10(3)/mc L [facility] RDW Standard Deviation 50.8(H) 37.0 - 46.0 fL [facility] RDW coefficient of variation 14.3(H) 11.5 - 14.1 % [facility] Mean Platelet Volume 10.9 7.6 - 12.9 fL [facility] NRBC% auto 0.0 % [facility] NRBC Absolute 0.000 0.000 - 0.000 x10(3)/mc L [facility] Blood specimen (specimen) 09/15/2018 3:44 AM EDT 09/15/2018 4:18 AM EDT Narrative Resulting Agency Comment Spec In Lab Ori Santos MD HEMATOLOGY ORDERABLE S Performing Organization Address City/[facility]/ZIP Co de Phone Number [facility] [place] [address] * Prothrombin Time (09/15/2018 3:44 AM EDT) Prothrombin Time 12.0 9.4 - 12.5 sec [facility] International Normalization Ratio 1.0 [facility] Comment: An [...] MD HEMATOLOGY ORDERABLE S Performing Organization Address City/[facility]/ZIP Co de Phone Number [facility] [place] [address] * (ABNORMAL) Basic Metabolic Panel (non-fasting) (09/15/2018 3:44 AM EDT) Glucose 135 65 - 199 mg/dL [facility] Comment:Diabetes: >=200 mg/d L plus symptoms Blood Urea Nitrogen 18 8 - 18 mg/dL [facility] Creatinine 0.74 0.70 - 1.20 mg/dL [facility] Anion Gap 9 5 - 15 mmol/L [facility] Calcium 7.9(L) 8.5 - 10.5 mg/dL [facility] Est Glomerular Filtration Rate 94 >=60 mL/min/1. 73 m?? [facility] Comment: The eGFR was calculated using the CKD-EPI equation. As with all creatinine based estimates of kidney function, eGFR values calculated with the CKD-EPI equation are not accurate in patients with acute kidney failure, extremes of body mass or the acutely ill. [email or web address] eGFR 109 >=60 mL/min/1. 73 m?? [facility] Comment: The eGFR was calculated using the CKD-EPI equation. As with all creatinine based estimates of kidney function, eGFR values calculated with the CKD-EPI equation are not accurate in patients with acute kidney failure, extremes of body mass or the acutely ill. [email or web address] Blood specimen (specimen) 09/15/2018 3:44 AM EDT 09/15/2018 4:18 AM EDT Narrative Resulting Agency Comment Spec In Lab Javad Urban MD CHEMISTRY ORDERABLES Performing Organization Address [facility] Co de Phone Number [facility] [place] [address] * POCT Glucose (09/14/2018 9:52 PM EDT) Glucose, POC 124 65 - 199 mg/dL [facility] Comment: Supplemental ranges: <140 mg/dL before meals <180 mg/dL all other times of the day Blood specimen (specimen) 09/14/2018 9:52 PM EDT 09/14/2018 9:52 PM EDT Javad Urban MD POINT OF CARE TEST O RDERABLES Performing Organization Address [facility] de Phone Number [facility] [place] [address] * Film Library- Storage Only MR Head (09/13/2018 12:10 AM EDT) Narrative [facility] - 09/15/2018 10:49 AM EDT This exam is auto-finalizing. It's purpose is for storage only. Javad Urban MD IMG FILM LIBRARY ORD ERABLES Performing Organization Address [facility] de Phone Number [place], [place] * Film Library- Storage Only Ultrasound Study (09/13/2018 12:05 AM EDT) Narrative [facility] - 09/15/2018 10:47 AM EDT This exam is auto-finalizing. It's purpose is for storage only. Javad CHIN FILM LIBRARY ORD ERABLES Performing Organization Address [facility] de Phone Number [place], [place] * Film Library- Storage Only DX Chest (09/13/2018 12:00 AM EDT) Narrative [facility] - 09/15/2018 10:46 AM EDT This exam is auto-finalizing. It's purpose is for storage only. Javad Urban MD IMG FILM LIBRARY ORD ERABLES [facility] [place], [place] documented in this encounter Visit Diagnoses [...] RN) [phone] (Given - Provider: Fely Freeman RN)[phone] (Given - Provider: Mai Bose, JULI) [email or web address] [...] Routine documented in this encounter Care Teams Shaper And Presser Relationship Specialty Start Date End Date None None PCP - General 09/14/18 09/30/18 documented as of this encounter
--- OUTSIDE RECORDS SUMMARY | 2024-06-15 16:08 | XMS_ITS | Encounter Summary ---
Author Organization [facility] [place] [address] Care Team Providers Care Content Curator Name Role Phone Unavailable Primary Care Provider Unavailabl e Encounter Details Date Type Department Care Team (Late st Contact Info) Description 09/13/2018 12:10 AM EDT Ancillary Procedure Radiology Library at [facility] [place] [id number] Social History Tobacco Use Types Packs/Day Years [...]
[2024-06-15 20:11] LABS: Abs Immature Grans 0.04 10^3/uL (0.0-0.06); Absolute Basophil Count 0.07 10^3/uL (0.0-0.2); Absolute Monocyte Count 0.97 10^3/uL (0.1-0.8); Basophils % 0.5 %; Eosinophils % 1.3 %; HCT 43.2 % (36.0-46.0); HGB 14.1 g/dL (11.2-15.7); Immature Grans % 0.3 %; Lymphocytes % 21.2 %; MCH 31.8 pg (27.0-33.0); MCHC 32.6 % (32.0-36.0); MCV 97 fL (80-95); MPV 11.4 fL (8.0-11.0); Monocytes % 7.2 %; Neutrophils % 69.5 %; Platelet Count 242 10^3/uL (130-400); RBC 4.44 10^6/uL (3.93-5.22); RDW 12.8 % (11.7-14.6); RDW-SD 46.1 fL; WBC 13.46 10^3/uL (4.4-10.8)
[2024-06-15 20:21] LABS: Absolute Eosinophil Count 0.17 10^3/uL (0.0-0.7); Absolute Lymphocyte Count 2.85 10^3/uL (1.2-3.4); Absolute Neutrophil Count 9.35 10^3/uL (1.2-6.7)
[2024-06-15 20:54] LABS: Folate 16.1 ng/mL (8.6-20.0); Vitamin B12 279 pg/mL (193-986)
== END 2024-06-15 16:04 | disposition home or self-care (01) ==
LOC: NCHCN 16:03
PROVIDERS: Visit Provider Physician Assistant Medical
DX: K14.0 Glossitis (principal)
CPT/HCPCS: 82607; 82746; 85025

== ENCOUNTER 2024-07-08 17:13 | Emergency (ER) | payer MEDICARE, MEDICAID, SELFPAY ==
[2024-07-08 17:24] VITALS: BP 148/65; PULSE 95; RESP 20; TEMP 36.9; O2SAT 97
--- NOTE | 2024-07-08 17:31 | ED.GENADUL_ITS ---
Discharge Plan Disposition Patient Disposition: Transfer-Acute Inpatient Care Specific Acute Inpt Facility: [facility] Condition: Stable Discharge Details Clinical Impression: Multiple falls, Fracture of left fibula, Fracture of phalanx of multiple toes of right foot, Right ureteral stone, Obstructive uropathy, Urinary tract infection, Fracture of fourth metatarsal bone of left foot Primary Care Provider: Whitney Vanegas ED Provider: Osorio Gastelum Home Meds and New Rx's Prescriptions: No Action (DME) walker misc See Dose Instructions .ROUTE .MEDSUPPLY Qty: 1 0RF Dose Instruction: As directed Rx Instructions: As directed; rolling walker with seat & hand brakes; Ht= 60in ascorbate calcium (vitamin C) 500 mg tablet 500 mg PO DAILY meclizine 25 mg tablet 25 mg PO DAILY Patient Comments: no current rx chlorhexidine gluconate 0.12 % mouthwash 15 ml PO BID PRN Patient Comments: SWISH AND SPIT WITH 15ML BY MOUTH TWO TIMES A DAY DIRECTED cholecalciferol (vitamin D3) 25 mcg (1,000 unit) capsule 25 mcg PO DAILY biotin 5 mg capsule 5 mg PO DAILY doxepin 10 mg capsule 10 mg PO QHS budesonide-formoterol [Symbicort] 80-4.5 mcg/actuation HFA aerosol inhaler 2 puff inhalation BID loperamide 2 mg capsule 2 mg PO Q6H PRN famotidine [Acid X Ray Service Technician (famotidine)] 20 mg tablet 20 mg PO QHS omeprazole 20 mg capsule,delayed release(DR/EC) 20 mg PO BID baclofen 10 mg tablet 10 mg PO TID amlodipine 2.5 mg tablet 2.5 mg PO DAILY fluticasone propionate 50 mcg/actuation spray,suspension 1 spray intranasal DAILY Rx Instructions: administer into each nostril losartan 50 mg tablet 100 mg PO DAILY acetaminophen 500 mg tablet 1,000 mg PO TID Qty: 90 0RF albuterol sulfate 90 mcg/actuation HFA aerosol inhaler 2 inh Inhalation Q4H PRN zolpidem 10 mg Tablet 10 mg PO QHS PRN montelukast 10 mg Tablet 10 mg PO DAILY ibuprofen 600 mg tablet 600 mg PO TID PRN (Reason: pain) Qty: 90 0RF insulin glargine [Basaglar KwikPen U-100 Insulin] 100 unit/mL (3 mL) insulin pen 8 unit SUBCUT QAM Patient Comments: INJECT 8 UNITS SUBCUTANEOUSLY EVERY MORNING epinephrine [EpiPen 2-Leonidas] 0.3 MG/0.3 ML auto-injector 1 dis.syr .Route DIRECTED simvastatin 20 mg tablet 40 mg PO QPM ipratropium-albuterol 0.5 mg-3 mg(2.5 mg base)/3 mL Solution For Nebulization 3 ml UPD Q6H PRN PRNQty: 0 0RF Nicotrol 10 mg Cartridge 10 mg Inhalation Q2H PRN PRNQty: 0 0RF Patient Comments: has rx but does not use docusate sodium [Colace] 100 mg Capsule 100 mg PO BID Qty: 0 0RF HPI General Date/Time Provider Initiated Documentation: 07/08/24 17:29 . HPI Narrative: 58 year-old female presents to ED today by POV/wheelchair with , sent from [facility], with a chief complaint of multiple falls yesterday, bruises to multiple body sites, questions LOC, has possible cause of fluctuating blood sugars in the setting of t2DM, with onset yesterday, having nausea on arrival at ED. Quality described as facial/forehead bruise, R elbow pain, L shoulder pain, bilateral lower rib pain, abdominal pain, L hip pain, bilateral knee pain and bruising, and bilateral feet/ankle pain, no radiation to chest pain, endorses cough, denies intractable vomiting, denies vertigo, denies slurred speech, states normal bowel/urinary habits, endorses poor oral intake. Severity is described as moderate to severe. Palliating factors include nothing specific attempted. Provoking factors include has not been adequately eating the past few days. Events leading up to the incident/Associated Symptoms: Patient takes 1 subQ insulin of 8 units. Patient not anticoagulated. Related Data Home Medications ?Medication ?Instructions ?Recorded ?Confirmed epinephrine 0.3 mg/0.3 mL 1 dis.syr .Route DIRECTED 04/13/17 07/08/24 injection, auto-injector (EpiPen 2-Leonidas) stone #1 ea 04/29/18 07/08/24 albuterol sulfate 90 mcg/actuation 2 inh inhalation Q4H PRN 06/14/18 07/08/24 aerosol inhaler docusate sodium 100 mg capsule 100 mg PO BID #0 caps 09/14/18 07/08/24 (Colace) ipratropium 0.5 mg-albuterol 3 mg 3 ml UPD Q6H PRN PRN #0 mL 09/14/18 07/08/24 (2.5 mg base)/3 mL nebulization soln nicotine 10 mg inhalation 10 mg inhalation Q2H PRN PRN #0 ea 09/14/18 07/08/24 cartridge (Nicotrol) montelukast 10 mg tablet 10 mg PO DAILY 03/09/19 07/08/24 zolpidem 10 mg tablet 10 mg PO QHS PRN 03/09/19 07/08/24 ascorbate calcium (vitamin C) 500 500 mg PO DAILY 05/16/19 07/08/24 mg tablet simvastatin 20 mg tablet 40 mg PO QPM 10/11/20 07/08/24 amlodipine 2.5 mg tablet 2.5 mg PO DAILY 05/31/21 07/08/24 baclofen 10 mg tablet 10 mg PO TID 05/31/21 07/08/24 biotin 5 mg capsule 5 mg PO DAILY 05/31/21 07/08/24 budesonide-formoterol HFA 80 2 puff inhalation BID 05/31/21 07/08/24 mcg-4.5 mcg/actuation aerosol inhaler (Symbicort) cholecalciferol (vitamin D3) 25 25 mcg PO DAILY 05/31/21 07/08/24 mcg (1,000 unit) capsule doxepin 10 mg capsule 10 mg PO QHS 05/31/21 07/08/24 famotidine 20 mg tablet (Acid 20 mg PO QHS 05/31/21 07/08/24 X Ray Service Technician (famotidine)) fluticasone propionate 50 1 spray intranasal DAILY 05/31/21 07/08/24 mcg/actuation nasal spray,suspension loperamide 2 mg capsule 2 mg PO Q6H PRN 05/31/21 07/08/24 omeprazole 20 mg capsule,delayed 20 mg PO BID 05/31/21 07/08/24 release losartan 50 mg tablet 100 mg PO DAILY 03/20/22 07/08/24 ibuprofen 600 mg tablet 600 mg PO TID PRN pain #90 tabs 03/25/23 07/08/24 acetaminophen 500 mg tablet 1,000 mg (2 x 500 mg) PO TID #90 11/13/23 02/14/25 tabs chlorhexidine gluconate 0.12 % 15 ml PO BID PRN 07/08/24 07/08/24 mouthwash insulin glargine 100 unit/mL (3 8 unit subcut QAM 07/08/24 07/08/24 mL) subcutaneous pen (Basaglar KwikPen U-100 Insulin) meclizine 25 mg tablet 25 mg PO DAILY 07/08/24 07/08/24 Previous Rx's ?Medication ?Instructions ?Recorded walker #1 ea 04/29/18 docusate sodium 100 mg capsule 100 mg PO BID #0 caps 09/14/18 (Colace) ipratropium 0.5 mg-albuterol 3 mg 3 ml UPD Q6H PRN PRN #0 mL 09/14/18 (2.5 mg base)/3 mL nebulization soln nicotine 10 mg inhalation 10 mg inhalation Q2H PRN PRN #0 ea 09/14/18 cartridge (Nicotrol) ibuprofen 600 mg tablet 600 mg PO TID PRN pain #90 tabs 03/25/23 acetaminophen 500 mg tablet 1,000 mg (2 x 500 mg) PO TID #90 04/06/23 tabs Allergies Allergy/AdvReac Type Severity Reaction Status Date / Time adhesive tape Allergy Intermediate Hives Verified 07/08/24 17:21 venom-honey bee Allergy Intermediate severe Verified 07/08/24 17:21 local reaction venom-wasp Allergy Intermediate severe Verified 07/08/24 17:21 local reaction doxycycline Allergy Mild Skin Rash Verified 07/08/24 17:21 Sulfa (Sulfonamide Allergy Mild Skin Rash Verified 07/08/24 17:21 Antibiotics) gabapentin AdvReac Unknown Other (See Verified 07/08/24 17:21 Comment) Antibiotics AdvReac Mild Other (See Uncoded 07/08/24 17:21 Comment) General Stated Complaint: Fall/Non TraumaCriteria KATHERINE: 3 Review of Systems All systems reviewed & are unremarkable except as noted in HPI and below Exam Narrative Exam Narrative: GENERAL APPEARANCE: Well-nourished, non-toxic, awake and alert, atraumatic, no acute distress. SKIN: Warm, pink, dry, intact, without rashes/lesions/ulcerations. HEAD: Normocephalic, bruise to L forehead without hematoma/contusion, mild bruising to nose without deformity, dried blood at nares, no tenderness/crepitus, normal hair distribution for gender/age. EYES: Normal conjunctiva, no exudates on lids/lashes. ENT: Nares patent, no circumoral cyanosis, no facial swelling NECK: Supple, trachea midline, painless cervical ROM, mild cervical tenderness without crepitus/step-offs. LUNGS/CHEST: Lungs CTA bilaterally- no rhonchi/rales/wheezes diffusely, no f ocally diminished or absent lung sounds, non-labored respirations, normal A/P diameter, symmetrical expansion, no chest wall deformit, tenderness to bilateral lower ribs without crepitus, no paradoxical motion, no flail segments HEART (CV/PV): Regular rate and rhythm without murmur, no peripheral edema, no JVD. ABDOMEN: Soft, non-distended, no guarding, mild diffuse abdominal tenderness without rigidity or ecchymosis. MSK: Normal ROM, no swelling/deformity to bilateral UEs or LEs- tenderness and ecchymosis to R elbow- ROM intact, TTP to L shoulder without crepitus/ecchymosis, bilateral knee ecchymosis and tenderness without crepitus, patellas mobile bilaterally, tenderness to R foot without crepitus, tenderness L medial malleolus, NV intact bilateral feet/lower extremities, moving all extr emities without weakness, no cyanosis, spine midline without tenderness/crepitus/step-offs to thoracic/lumbar spine, no contusions/ecchymosis, no CVA tenderness to percussion bilaterally, normal curva ture. NEURO: Mental Status AAOx4 - alert to person, place, time, events No facial droop, no forehead involvement. Motor: No focal weakness Sensory: sensation intact to light touch globally. Gait NT. PSYCH: euthymic, cooperative, pleasant, appropriate speech Course Vital Signs Vital signs: Vital Signs Temperature 36.9 C 07/08/24 17:24 Pulse 95 H 07/08/24 17:24 Respiratory Rate 20 07/08/24 17:24 Blood Pressure 148/65 H 07/08/24 17:24 Pulse Oximetry 97 07/08/24 17:24 Temperature 36.9 C 07/08/24 17:24 Temperature Source Tympanic 07/08/24 17:24 Pulse 95 H 07/08/24 17:24 Respiratory Rate 20 07/08/24 17:24 Blood Pressure 148/65 H 07/08/24 17:24 Blood Pressure Position Supine 07/08/24 17:24 Pulse Oximetry 97 07/08/24 17:24 Oxygen Delivery Method Room Air 07/08/24 17:24 Oxygen Flow Rate 0 07/08/24 17:24 Pain Level 10 07/08/24 17:24 Medical Decision Making This dictation utilizes [id number] dictation software and may contain unedited grammatical errors. 58 year-old female presents to ED today by POV/wheelchair with , sent from [facility], with a chief complaint of multiple falls yesterday, bruises to multiple body sites, questions LOC, has possible cause of fluctuating blood sugars in the setting of t2DM, with onset yesterday, having nausea on arrival at ED. Quality described as facial/forehead bruise, R elbow pain, L shoulder pain, bilateral lower rib pain, abdominal pain, L hip pain, bilateral knee pain and bruising, and bilateral feet/ankle pain, no radiation to chest pain, endorses cough, denies intractable vomiting, denies vertigo, denies slurred speech, states normal bowel/urinary habits, endorses poor oral intake. Severity is described as moderate to severe. Palliating factors include nothing specific attempted. Provoking factors include has not been adequately eating the past few days. Events leading up to the incident/Associated Symptoms: Patient takes 1 subQ insulin of 8 units. Patients' medical history: [ ]. Family and social history: [ ]. Pertinent exam findings / vital signs include innumerable bruises to bilateral upper and lower extremities, no overt deformities or large swellings, significant tenderness at the right foot, left fibular head, right and left elbows, left shoulder, bilateral lower rib cage, right upper quadrant, lungs CTA, benign cardiac exam, poor historian but no neurologic abnormality. Differential / pathologies of concern include rhabdomyolysis, fractures, i ntracranial hemorrhage, C-spine injury, pneumothorax, fractured ribs, solid organ laceration, contusions, alcoholism, intoxication, rhabdomyolysis, less likely stroke. Diagnostic studies of: -CBC, CMP, lipase, magnesium, TSH, troponin, urinalysis > urine cx, lactate, CT head/C-spine/facial bones without contrast, CT chest/ABD/pelvis W contrast, XR bilateral knees, XR R elbow, XR L ankle, XR R foot, EKG. -CBC shows mild leukocytosis with elevated absolute neutrophils, no anemia -Lactate negative -CMP shows marked elevation of her creatinine mild elevation of BUN above baseline from prior values -Glucose 168 -LFTs within normal limits -Troponin negative with reliable onset -Lipase negative -TSH within normal limits -Initial UA shows positive for nitrites I did send a culture and we will try to get a repeat clean-catch versus cath sample, shows glucose spilling -Covid/Flu/RSV negative -CT of the chest abdomen pelvis shows 2 right ureteral stones, 111 mm stone at the UPJ, one 5 mm stone in the right proximal ureter, patient endorses left flank pain only -X-ray left tib-fib shows mid proximal fibula fracture, nondisplaced, placed in posterior splint -X-ray of the right foot shows mildly displaced fractures of 3 toes- 1st,2nd, 4th- placed in cast shoe -CT Head/C-Spine/Facial bones neg -XR Bilat elbows negative -XR R knee negative -XR L knee shows no other fx than known L tib/fib -L shoulder unremarkable on CT -L hip unremarkable on CT Added L foot XR- patient is a poor historian and endorses pain in differing locations throughout visit. -XR L Foot - fx 4th metatarsal -EKG shows normal sinus rhythm, rate 76, P waves of a narrow complex QRS with normal axis, no ST elevations or reciprocal depressions, no abnormal T wave inversions, no ischemic changes, normal intervals, good R wave progression Added on a second urinalysis due to the evidence of renal stones, added B12 and folate level to evaluate possible chronic alcoholism, patient states he do not drink alcohol, added alcohol level, CK, UDS and ammonia level -repeat UA shows proteinuria, nitrites, moderate blood, +leuk esterase, 10-20 WBCs, 5-10 RBCs, w sq. epithelials -Alcohol level negative -UDS shows opiates- I did give 4mg IV morphine @ 2044 -CK 556 -B12 and folate - B12 WNL, foliate >20 -Ammonia level WNL Interventions of: -1g IV APAP, 15mg IV ketorlac, 4mg IV ondansetron, 4mg IV Morphine, 1L IVF NS. 0.4mg tamsulosin PO. 2gm IV Ceftriaxone to cover UTI. -Paged [facility] Urology Dr. Wilson, not available for call-back at this time -Sent images to [facility] for consult for transfer at 2200. Dr. Vieira accepts for trauma transfer consult @ 0795. Informed patient, who agrees with plan- Dr. Vieira wants patient in a C-collar- patient agrees. -Consult with Hospitalist at [facility] as patient is unlikely to be accepted for urgent transfer to [facility], unlikely needing urgent orthopaedic consult ED Course/Assessment/Plan: 58-year-old female who appears significantly older than age, type II diabetic, presents with multiple falls around the home, presented to urgent care earlier today who recommended she receive ED evaluation. She has contusions to nearly every part of her body, underwent CT scan of the head, neck, chest abdomen pelvis, x-rays of bilateral elbows, bilateral knees, left tib-fib, left ankle and foot, right foot. Extensive lab workup reveals UTI and 11 mm stone at right UPJ, 5 mm stone at right proximal ureter. Has been urinating here in the department. Has fracture to left fibular shaft, multiple fractures of toes of right foot. Has mild leukocytosis, lactate is negative at this time, blood sugar nonfasting is 168, troponin negative, lipase negative, TSH within normal limits, alcohol level negative, folate levels greater than 20- do not suspect chronic ETOH pathology. Patient likely needs urgent lithotripsy and stenting, has risk to become septic and was covered with ceftriaxone for UTI and infected kidney stone here. Her fractures do not warrant emergent follow-up for likely surgical intervention at this time. [facility] consult is pending. Disposition of Obstructive Uropathy, Right Ureteral Stone, Fracture of Left Fibula, Fracture of Multiple toes of Right foot, Multiple Falls, Urinary Tract Infection, Fracture of Fourth Metatarsal Bone of Left Foot. Patient verbalized understanding of the plan and return to ED criteria and engaged in shared decision making. Medical Records Medical records reviewed: Yes I reviewed the patient's medical records. Imaging Data Radiologic Study: Attestation: I personally reviewed and interpreted this imaging study as follows: Imaging: CT Scan Radiologist's impression: Exam: CT Head Without Contrast Exam date and time: 07/08/2024 6:58 PM Age: 58 years old Clinical indication: Other: Multiple falls; Head, nose, neck pain TECHNIQUE: Imaging protocol: Computed tomography of the head without contrast. COMPARISON: MR brain wo/w 09/13/2018 5:38 PM FINDINGS: Brain: Normal volume for age. No acute intracranial hemorrhage. No evidence of acute large vascular territory infarct. No edema. No midline shift or herniation. Cerebral ventricles: No ventriculomegaly. Pituitary gland and sella: Partially empty appearance of the sella. Paranasal sinuses: Imaged paranasal sinuses appropriately aerated without air-fluid levels. Mastoid air cells: No mastoid effusion. Bones: Unremarkable. No acute fracture. Soft tissues: No focal soft tissue abnormality. IMPRESSION: No acute intracranial finding. PROCEDURE INFORMATION: Exam: CT Maxillofacial Without Contrast Exam date and time: 07/08/2024 6:58 PM Age: 58 years old Clinical indication: Other: Multiple falls; Head, nose, neck pain TECHNIQUE: Imaging protocol: Computed tomography of the face without contrast. COMPARISON: MR brain wo/w 09/13/2018 5:38 PM FINDINGS: Paranasal sinuses: Paranasal sinuses adequately aerated without air-fluid levels. Orbital cavities: Orbits are normal. Globes are unremarkable. Teeth: Edentulous appearance of the oral cavity. Bones: No acute fracture. Soft tissues: Mild left periorbital soft tissue edema. IMPRESSION: No acute fracture. PROCEDURE INFORMATION: Exam: CT Cervical Spine Without Contrast Exam date and time: 07/08/2024 6:58 PM Age: 58 years old Clinical indication: Other: Multiple falls; Head, nose, neck pain TECHNIQUE: Imaging protocol: Computed tomography of the cervical spine without contrast. COMPARISON: CT HEAD CERVICAL SPINE WO 09/12/2018 10:00 AM FINDINGS: Bones: No acute fracture. No spondylolisthesis. There is nonspecific straightening with slight reversal of normal cervical lordosis. Intervertebral disc heights are grossly preserved. Osseous neural foramina and central canal are patent. Lungs: Small nonspecific ground-glass opacity within the anterior right lung apex incompletely evaluated on this exam. Vasculature: Mild vascular calcifications of the carotid bulbs. Soft tissues: Included soft tissues unremarkable as visualized. IMPRESSION: No acute fracture. Dictated and Authenticated by: Dirk Loera MD. Radiologic Study #2: Attestation: I personally reviewed and interpreted this imaging study as follows: Imaging: CT Scan Radiologist's impression: Exam: CT Chest With Contrast; Diagnostic Exam date and time: 07/08/2024 7:08 PM Age: 58 years old Clinical indication: Other: Rib pain; L hip pain; Falls; Abdominal pain TECHNIQUE: Imaging protocol: Diagnostic computed tomography of the chest with contrast. Contrast material: OMNIPAQUE 350; Contrast volume: 100 ml; Contrast route: INTRAVENOUS (IV); COMPARISON: CT CHEST WO 03/24/2019 2:00 PM FINDINGS: Lungs: Unremarkable. No consolidation. No masses. Pleural spaces: Unremarkable. No pneumothorax. No pleural effusion. Heart: Unremarkable. No cardiomegaly. No pericardial effusion. Lymph nodes: Unremarkable. No enlarged lymph nodes. Vasculature: Unremarkable. No aortic aneurysm. Bones/joints: Unremarkable. No acute fracture. Soft tissues: Unremarkable. IMPRESSION: No acute findings. PROCEDURE INFORMATION: Exam: CT Abdomen And Pelvis With Contrast Exam date and time: 07/08/2024 7:08 PM Age: 58 years old Clinical indication: Other: Rib pain; L hip pain; Falls; Abdominal pain TECHNIQUE: Imaging protocol: Computed tomography of the abdomen and pelvis with contrast. Contrast material: OMNIPAQUE 350; Contrast volume: 100 ml; Contrast route: INTRAVENOUS (IV); COMPARISON: CT CHEST/ABD/PEL W 09/12/2018 11:49 AM FINDINGS: Liver: Normal. No mass. Gallbladder and biliary ducts: Normal. No calcified stones. No ductal dilation. Pancreas: Normal. No ductal dilation. Spleen: Normal. No splenomegaly. Adrenal glands: Normal. No mass. Kidneys and ureters: 11 mm stone at the right ureteropelvic junction. 5 mm stone in the proximal right ureter located 3.4 cm distal to the right UPJ stone. Moderate right hydronephrosis. Simple appearing right renal cortical cysts. Left kidney appears normal. Stomach and bowel: Unremarkable. No obstruction. No mucosal thickening. Appendix: No evidence of appendicitis. Intraperitoneal space: Unremarkable. No free air. No significant fluid collection. Vasculature: Moderate atherosclerotic calcification throughout the aorta and iliac arteries. No evidence of aneurysm or dissection. Lymph nodes: Unremarkable. No enlarged lymph nodes. Urinary bladder: Unremarkable as visualized. Reproductive: Uterus is absent. No adnexal abnormality. Bones/joints: Unremarkable. No acute fracture. Soft tissues: Unremarkable. IMPRESSION: There are 2 stones in the right renal collecting system including an 11 mm stone at the right UPJ and 5 mm stone in the proximal right ureter. Moderate right hydronephrosis. Other incidental chronic findings as noted. Dictated and Authenticated by: Phill Ricardo MD. Radiologic Study #3: Attestation: I personally reviewed and interpreted this imaging study as follows: Imaging: X-Ray Radiologist's impression: Exam: XR Left Elbow Exam date and time: 07/08/2024 7:45 PM Age: 58 years old Clinical indication: Other: L elbow pain TECHNIQUE: Imaging protocol: Radiologic exam of the left elbow. Views: 3 or more views. COMPARISON: CR XR shoulder LT complete 2+V 03/29/2018 3:52 PM FINDINGS: Bones/joints: Osseous alignment is normal. No acute fracture. No significant arthritic change or joint fluid. Soft tissues: Normal. IMPRESSION: Negative left elbow Dictated and Authenticated by: Phill Ricardo MD. Radiologic Study #4: Attestation: I personally reviewed and interpreted this imaging study as follows: Imaging: X-Ray Radiologist's impression: Exam: XR Right Elbow Exam date and time: 07/08/2024 7:40 PM Age: 58 years old Clinical indication: Injury or trauma; Fall; Blunt trauma (contusions or hematomas); Bilateral; Injury date: 07/07/24; R elbow bruise TECHNIQUE: Imaging protocol: Radiologic exam of the right elbow. Views: 3 or more views. COMPARISON: MR upper joint RT wo 03/04/2018 7:06 AM FINDINGS: Bones/joints: Osseous alignment is normal. No acute fracture. No significant joint fluid or arthritic change. Soft tissues: Normal. IMPRESSION: Negative right elbow Dictated and Authenticated by: Phill Ricardo MD. Radiologic Study #5: Attestation: I personally reviewed and interpreted this imaging study as follows: Imaging: X-Ray Radiologist's impression: Exam: XR Right Knee Exam date and time: 07/08/2024 7:21 PM Age: 58 years old Clinical indication: Injury or trauma; Blunt trauma; Bilateral; Injury date: 07/08/24; Prior surgery; Surgery date: 6+ months; Surgery type: Knee replacement; Multiple falls; Bilat knee pain TECHNIQUE: Imaging protocol: Radiologic exam of the right knee. Views: 3 views. COMPARISON: CT LOWER EXTREMITY RT WO 12/29/2022 2:43 PM FINDINGS: Bones/joints: Right knee prosthesis in place. No evidence of hardware failure or loosening. Osseous alignment is normal. No acute fracture Soft tissues: Normal. IMPRESSION: No acute abnormality Dictated and Authenticated by: Phill Ricardo MD. Radiologic Study #6: Attestation: I personally reviewed and interpreted this imaging study as follows: Imaging: X-Ray Radiologist's impression: Exam: XR Right Foot Exam date and time: 07/08/2024 7:26 PM Age: 58 years old Clinical indication: Other: Multiple falls; R foot pain; Prior surgery; Surgery date: 6+ months; Surgery type: Plates TECHNIQUE: Imaging protocol: Radiologic exam of the right foot. Views: 3 or more views. COMPARISON: CR XR FOOT RT COMPLETE 03/23/2023 2:19 PM FINDINGS: Bones/joints: Mildly displaced fracture of the distal shaft of the 2nd proximal phalanx. Fracture of the distal shaft of the 4th proximal phalanx with significant dorsal displacement of the distal fragment. Otherwise chronic osseous changes noted. Orthopedic hardware noted in the medial aspect of the midfoot. Soft tissues: Soft tissue swelling of the forefoot. IMPRESSION: Fractures of the 1st, 2nd and 4th proximal phalanges as described. Dictated and Authenticated by: Phill Ricardo MD. Radiologic Study #7: Attestation: I personally reviewed and interpreted this imaging study as follows: Imaging: X-Ray Radiologist's impression: Exam: XR Left Tibia and Fibula Exam date and time: 07/08/2024 8:24 PM Age: 58 years old Clinical indication: Other: Fracture, L fibula TECHNIQUE: Imaging protocol: Radiologic exam of the left tibia and fibula. Views: 2 views. COMPARISON: CT LOWER EXTREMITY LT WO 12/29/2022 2:32 PM FINDINGS: Bones/joints: There is a minimally displaced spiral fracture of the proximal diaphysis of the left fibula. No other acute fracture. Osseous alignment is otherwise normal. No significant arthritic changes. Soft tissues: Normal. IMPRESSION: Proximal left fibula fracture as described Dictated and Authenticated by: Phill Ricardo MD. Radiologic Study #8: Attestation: I personally reviewed and interpreted this imaging study as follows: Imaging: X-Ray Radiologist's impression: Exam: XR Left Foot Exam date and time: 07/08/2024 10:05 PM Age: 58 years old Clinical indication: Other: L foot pain TECHNIQUE: Imaging protocol: Radiologic exam of the left foot. Views: 3 or more views. COMPARISON: CT LOWER EXTREMITY LT WO 12/29/2022 2:32 PM FINDINGS: Bones/joints: Orthopedic plate in the 4th metatarsal. Bones appear diffusely osteopenic. Moderate degenerative changes in the midfoot. Suspected fracture of the head of the 4th metatarsal. Casting material obscures fine bony detail. Soft tissues: Normal. IMPRESSION: Suspected fracture of the head of the 4th metatarsal. Other chronic findings as noted. Dictated and Authenticated by: Phill Ricardo MD. Lab Data Lab results reviewed: Yes I reviewed the patient's lab results. Labs: 07/08/24 17:40 Urine - Clean Catch Urine Culture - Pending Laboratory Tests Range/Units 07/08/24 07/08/24 07/08/24 17:40 18:30 20:39 WBC (4.4-10.8) 10^3/uL 14.20 H RBC (3.93-5.22) 10^6/uL 3.94 Hgb (11.2-15.7) g/dL 12.6 Hct (36.0-46.0) % 37.8 MCV (80-95) fL 96 H MCH (27.0-33.0) pg 32.0 MCHC (32.0-36.0) % 33.3 RDW (11.7-14.6) % 12.4 Plt Count (130-400) 10^3/uL 291 MPV (8.0-11.0) fL 9.9 Immature Gran % % 0.0 Neutrophils % % 72.0 Lymphocytes % % 19.0 Monocytes % % 9.0 Eosinophils % % 0.0 Basophils % % 0.0 Nucleated RBC % (0.0-0.3) % 0.0 Absolute Neutrophils (1.2-6.7) 10^3/uL 10.22 H Absolute Lymphocytes (1.2-3.4) 10^3/uL 2.70 Absolute Monocytes (0.1-0.8) 10^3/uL 1.28 H Absolute Eosinophils (0.0-0.7) 10^3/uL 0.00 Absolute Basophils (0.0-0.2) 10^3/uL 0.00 RBC Morphology Normal VBG Lactate (<or=2.0) mmol/L 0.9 Sodium (136-145) mmol/L 141 Potassium (3.5-5.1) mmol/L 3.6 Chloride (98-107) mmol/L 108 H Carbon Dioxide (21.0-32.0) mmol/L 24.5 Anion Gap (3-11) mmol/L 8.5 BUN (7-18) mg/dL 19 H Creatinine (0.55-1.02) mg/dL 1.6 H Est GFR (CKD-EPI 2020) (mL/min/1.73m2) 37.62 Glucose (74-106) mg/dL 168 H Calcium (8.5-10.1) mg/dL 9.2 Magnesium (1.8-2.4) mg/dL 2.1 Total Bilirubin (0.2-1.0) mg/dL 0.76 AST (15-37) U/L 24 ALT (14-59) U/L 33 Alkaline Phosphatase (46-116) U/L 103 Ammonia (11-32) umol/L Creatine Kinase (26-192) U/L 556 H Troponin I (<or=51) ng/L 6 Total Protein (6.4-8.2) g/dL 7.4 Albumin (3.4-5.0) g/dL 3.7 Lipase (<78) U/L 34 Vitamin B12 (193-986) pg/mL 230 Folate (8.6-20.0) ng/mL > 20.0 H TSH (0.36-3.74) uIU/mL 0.70 Urine Color (Yellow) Yellow Urine Clarity (Clear) Clear Urine pH (5-8) 5.5 Ur Specific [place] (1.005-1.025) <= 1.005 Urine Protein (Neg-Trace) mg/dL Trace Urine Ketones (Negative) mg/dL Negative Urine Blood (Negative) Small H Urine Nitrite (Negative) Positive H Urine Bilirubin (Negative) Negative Urine Urobilinogen (Up to 0.2) mg/dL 0.2 Ur Leukocyte Esterase (Negative) Negative Urine RBC (0-2) HPF 3-5 H Urine WBC (0-5) HPF 5-10 Ur Epithelial Cells (Negative) HPF Moderate Urine Crystals (Negative) HPF Negative Urine Bacteria (Negative) HPF Rare Urine Casts (Negative) LPF Negative Urine Mucus (Negative) Negative Urine Other (Negative) Ur Culture Indicated? No/Sq. Contamination Urine Glucose (Negative) mg/dL >=1000 H Urine Opiates Screen (Negative) Urine Methadone Screen (Negative) Ur Barbiturates Screen (Negative) Ur Tricyclics Screen (Negative) Ur Amphetamines Screen (Negative) U Benzodiazepines Scrn (Negative) Urine Cocaine Screen (Negative) Ur THC Screen (Negative) Ethyl Alcohol (<10) mg/dL < 3.0 COVID-19 Source Nasopharynx SARS-CoV-2 (PCR) (Negative) Negative Influenza Type A (PCR) (Negative) Negative Influenza Type B (PCR) (Negative) Negative RSV (PCR) (Negative) Negative Range/Units 07/08/24 07/08/24 21:25 21:27 WBC (4.4-10.8) 10^3/uL RBC (3.93-5.22) 10^6/uL Hgb (11.2-15.7) g/dL Hct (36.0-46.0) % MCV (80-95) fL MCH (27.0-33.0) pg MCHC (32.0-36.0) % RDW (11.7-14.6) % Plt Count (130-400) 10^3/uL MPV (8.0-11.0) fL Immature Gran % % Neutrophils % % Lymphocytes % % Monocytes % % Eosinophils % % Basophils % % Nucleated RBC % (0.0-0.3) % Absolute Neutrophils (1.2-6.7) 10^3/uL Absolute Lymphocytes (1.2-3.4) 10^3/uL Absolute Monocytes (0.1-0.8) 10^3/uL Absolute Eosinophils (0.0-0.7) 10^3/uL Absolute Basophils (0.0-0.2) 10^3/uL RBC Morphology VBG Lactate (<or=2.0) mmol/L Sodium (136-145) mmol/L Potassium (3.5-5.1) mmol/L Chloride (98-107) mmol/L Carbon Dioxide (21.0-32.0) mmol/L Anion Gap (3-11) mmol/L BUN (7-18) mg/dL Creatinine (0.55-1.02) mg/dL Est GFR (CKD-EPI 2020) (mL/min/1.73m2) Glucose (74-106) mg/dL Calcium (8.5-10.1) mg/dL Magnesium (1.8-2.4) mg/dL Total Bilirubin (0.2-1.0) mg/dL AST (15-37) U/L ALT (14-59) U/L Alkaline Phosphatase (46-116) U/L Ammonia (11-32) umol/L 20 Creatine Kinase (26-192) U/L Troponin I (<or=51) ng/L Total Protein (6.4-8.2) g/dL Albumin (3.4-5.0) g/dL Lipase (<78) U/L Vitamin B12 (193-986) pg/mL Folate (8.6-20.0) ng/mL TSH (0.36-3.74) uIU/mL Urine Color (Yellow) Yellow Urine Clarity (Clear) Clear Urine pH (5-8) 6.0 Ur Specific [place] (1.005-1.025) <= 1.005 Urine Protein (Neg-Trace) mg/dL 30 H Urine Ketones (Negative) mg/dL Negative Urine Blood (Negative) Moderate H Urine Nitrite (Negative) Positive H Urine Bilirubin (Negative) Negative Urine Urobilinogen (Up to 0.2) mg/dL 0.2 Ur Leukocyte Esterase (Negative) Trace H Urine RBC (0-2) HPF 5-10 H Urine WBC (0-5) HPF 10-20 H Ur Epithelial Cells (Negative) HPF Moderate Urine Crystals (Negative) HPF Negative Urine Bacteria (Negative) HPF Rare Urine Casts (Negative) LPF Negative Urine Mucus (Negative) Trace Urine Other (Negative) Few Transitional Ur Culture Indicated? No/Sq. Contamination Urine Glucose (Negative) mg/dL 500 H Urine Opiates Screen (Negative) Positive A Urine Methadone Screen (Negative) Negative Ur Barbiturates Screen (Negative) Negative Ur Tricyclics Screen (Negative) Negative Ur Amphetamines Screen (Negative) Negative U Benzodiazepines Scrn (Negative) Negative Urine Cocaine Screen (Negative) Negative Ur THC Screen (Negative) Negative Ethyl Alcohol (<10) mg/dL COVID-19 Source SARS-CoV-2 (PCR) (Negative) Influenza Type A (PCR) (Negative) Influenza Type B (PCR) (Negative) RSV (PCR) (Negative) Quality:SDOH Health Related Social Needs: No Data to Display PFSH All Active Problems (Updated 07/08/24 @ 22:57 by LILLY Vail) Fracture of fourth metatarsal bone of left foot (Acute) Urinary tract infection (Acute) Obstructive uropathy (Acute) Right ureteral stone (Acute) Fracture of phalanx of multiple toes of right foot (Acute) Fracture of left fibula (Acute) Multiple falls (Acute) 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) Arthritis of left midfoot (Acute) Arthritis of right midfoot (Chronic) s/p right midfoot fusion DOS: 02/12/23 Visit for wound check (Acute) Prurigo nodularis (Acute) Skin lesion of breast (Acute) Breast lesion (Acute) Nonhealing surgical wound (Acute) Right foot S/P Secondary Closure in OR: 03/25/2023 IDDM (insulin dependent diabetes mellitus) (Chronic) Tobacco abuse (Acute) LORRI (obstructive sleep apnea) (Chronic) GI bleed due to NSAIDs (Acute) COPD with acute exacerbation (Acute) Tobacco use disorder (Acute 05/09/13) Obstructive sleep apnea (adult) (pediatric) (Acute 09/12/13) Medical History Traumatic arthritis of right foot Lateral epicondylitis of right elbow Unwitnessed fall Closed head injury Twitching Dislocation of tarsometatarsal joint of right foot Occult blood positive stool DVT prophylaxis MANUEL (acute kidney injury) Macrocytosis Lung nodule Foot fracture, left Foot fracture, right Ambulatory dysfunction Macrocytic anemia Sepsis CAP (community acquired pneumonia) Osteoarthritis of right knee Hypotension pt. stated this is related to her medication, and her BP fluctuates Chronic low back pain with right-sided sciatica Right lumbosacral radiculopathy Neuropathy of right lower extremity Tendinitis of right rotator cuff Rhinitis (09/12/13) Tendinitis of left rotator cuff (01/05/17) Postnasal drip (12/16/13) Lymphocytic colitis (11/06/17) Hypertrophy of nasal turbinates (09/12/13) Cephalalgia (05/09/13) Arthritis of left acromioclavicular joint (01/05/17) Allergic rhinitis (09/26/13) Acquired deviated nasal septum (09/12/13) Asthma Obesity Hypertension GERD (gastroesophageal reflux disease) Tobacco use Lumbar back pain Menopause syndrome Hyperlipidemia Headache Heel pain, bilateral Fibromyalgia Skin rash Diarrhea Depression pt. denies Urinary frequency Dry skin Chronic pain Narcotic drug use pt. denies this Hematuria Impingement syndrome, shoulder, left Long-term insulin use Generalized anxiety disorder Obstructive sleep apnea CPAP Surgical History History of total right knee replacement Hx of foot surgery bilateral Painful orthopaedic hardware Right foot s/p removal 03/08/2019 H/O thumb surgery Bilateral H/O carpal tunnel repair Bilateral H/O elbow surgery S/P left knee arthroscopy S/P right knee arthroscopy H/O: hysterectomy S/P arthroscopy of left shoulder 03/2017 Colonoscopy - MAC (11/06/17) Family History Mother Diabetes Other Fibromyalgia Social History Smoking/Tobacco Use Status: Current every day Tobacco Type: cigarettes Years smoked: 43 Smoking risk assessment performed?: Yes Alcohol Intake: former Drug use: Never Substance use type: does not use Household members: spouse Housing: house Number of Children: 1 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
--- NOTE | 2024-07-08 17:45 | RT.EKG_ITS ---
APPROVED REPORT Exam: Resting ECG Reason for Exam: multiple falls, unknown LOC Patient Location: E HR:76 bpm ECG Measurements Heart Rate 76 AXIS TX 137 P 38 QRSd 99 QRS 9 QT 368 T 58 QTc 416 Conclusion Sinus rhythm. 76 normal axis no stemi
[2024-07-08 17:49] LABS: Bilirubin Negative (Negative); Blood Small (Negative); Clarity Clear (Clear); Glucose >=1000 mg/dL (Negative); Ketones Negative (Negative); Leukocyte Esterase Negative (Negative); Nitrite Positive (Negative); Specific Gravity <= 1.005 (1.005-1.025); Urobilinogen 0.2 mg/dL (Up to 0.2); pH 5.5 (5-8)
[2024-07-08 17:58] LABS: Bacteria Rare HPF (Negative); C & S Indicated? No/Sq. Contamination; Casts Negative LPF (Negative); Crystals Negative HPF (Negative); Epithelial Cells Moderate HPF (Negative); Mucus Negative (Negative)
[2024-07-08] MEDS: Ondansetron 4 MG/2 ML VIAL IVP ×2 (18:37→22:56)
[2024-07-08] MEDS: Ketorolac 15 MG/ML VIAL IVP (18:37)
[2024-07-08 18:38] LABS: Lactate 0.9 mmol/L (<or=2.0)
[2024-07-08] MEDS: ACETAMINOPHEN 1,000 MG/100 ML BAG 400 MG IVPB (18:38)
[2024-07-08 18:39] LABS: HCT 37.8 % (36.0-46.0); HGB 12.6 g/dL (11.2-15.7); MCHC 33.3 % (32.0-36.0); MCV 96 fL (80-95); MPV 9.9 fL (8.0-11.0); Platelet Count 291 10^3/uL (130-400); RBC 3.94 10^6/uL (3.93-5.22); RDW 12.4 % (11.7-14.6); RDW-SD 43.9 fL
--- OUTSIDE RECORDS SUMMARY | 2024-07-08 18:50 | XMS_ITS | Encounter Summary ---
Author Organization [facility] [place] [address] Care Team Providers Care Paid Intern Name Role Phone None Primary Care Provider Unavailabl e Encounter Details Date Type Department Care Team (Late st Contact Info) Description 12/24/2023 Telephone [place] [phone] Fabiana Bates LNA Social History Tobacco Use [...] th e electric, gas, oil, or water [employer] threatened to shut off services in your [...] any time in the past 12 m [facility], were you homeless or [...] on filedocumented in this encounter Care Teams Paid Intern Relationship Specialty Start Date End Date None None PCP - General 12/01/23 documented as of this encounter
--- OUTSIDE RECORDS SUMMARY | 2024-07-08 18:50 | XMS_ITS | Encounter Summary ---
Author Organization [facility] Address [facility] [place] [address] Care Team Providers Care Boiler Water Tester Name Role Phone None Primary Care Provider [...] 0.6 oz pur e alcohol) [facility] Utilities Answer Date Recorded In the [...] on filedocumented in this encounter Care Teams Boiler Water Tester Relationship Specialty Start Date End Date None None PCP - General 12/01/23 documented as of this encounter
--- OUTSIDE RECORDS SUMMARY | 2024-07-08 18:50 | XMS_ITS | Encounter Summary ---
Author Organization [facility] Address [address] [place] [address] Care Team Providers Care Sap Basis Architect Name Role Phone Carlos Hyde MD Primary Care Provider [phone] Encounter Details Date Type Department Care Team (Latest Contact Info) Description 11/06/2017 13:27 EDT - 11/06/2017 23:59 EDT Hospital Encounter [address] [address] Unknown, Provider, MD Discharge Disposition: Home or [...] Code Departure Means Destination Home or Self [facility] documented in this encounter Plan of Treatment Not on file documented as of this encounter Visit Diagnoses Not on filedocumented in this encounter Care Teams Sap Basis Architect Relationship Specialty Start Date End Date Carlos Hyde MD PCP - General 03/31/15 11/09/17 documented as of this encounter
--- OUTSIDE RECORDS SUMMARY | 2024-07-08 18:50 | XMS_ITS | Encounter Summary ---
Author Organization [facility] Address [facility] [place] [address] Care Team Providers Care Sas Programmer Analyst Name Role Phone None Primary Care Provider Unavailabl e Encounter Details Date Type Department Care Team (Late st Contact Info) Description 12/17/2023 Interpretation Only Radiology [address] [facility] [address] [address] Unknown None Social History Tobacco Use Types Packs/Day Years Used Date Smoking Tobacco: Every Day Cigarettes 06 21 Smokeless Tobacco: Never Comments:Currently using kalia otine inhaler to help herself quit (11/08/18) Alcohol Use Standard Drinks/Week Comments Not Currently 0 (1 standard drink = 0.6 oz pur e alcohol) [facility] Utilities Answer Date Recorded In the [...] time in the past 12 m [facility], were you homeless or living [...] on filedocumented in this encounter Care Teams Sas Programmer Analyst Relationship Specialty Start Date End Date None None PCP - General 12/01/23 documented as of this encounter
--- OUTSIDE RECORDS SUMMARY | 2024-07-08 18:50 | XMS_ITS | Encounter Summary ---
Author Organization [facility] [place] [address] Care Team Providers Care Hand Flatwork Finisher Name Role Phone None Primary Care Provider Unavailabl e Encounter Details Date Type Department Care Team (Late st Contact Info) Description 12/22/2023 Telephone [place] [address] Juliann Patino Social History Tobacco Use Types Packs/Day Years Used Date Smoking Tobacco: Every Day Cigarettes 1 Smokeless Tobacco: Never Comments:Currently using kalia otine inhaler to help herself quit (11/08/18) Alcohol Use Standard Drinks/Week Comments Not Currently 0 (1 standard drink = 0.6 oz pur e alcohol) [facility] Utilities Answer Date Recorded In the past 12 months has th e [employer], gas, oil, or water [employer] threatened to shut off services in your [...] on filedocumented in this encounter Care Teams Hand Flatwork Finisher Relationship Specialty Start Date End Date None None PCP - General 12/01/23 documented as of this encounter
--- OUTSIDE RECORDS SUMMARY | 2024-07-08 18:50 | XMS_ITS | Encounter Summary ---
Author Organization [facility] Address [address] [place] [address] Care Team Providers Care Sweat Band Separator Name Role Phone Carlos Hyde MD Primary Care Provider [phone] Encounter Details Date Type Department Care Team (Late st Contact Info) Description 11/06/2017 Results Only [facility] [phone] Carolyn Ferrara, DO [address] [place] [address] Social History Tobacco Use Types [...] ? [place]SON [place] ? Accession #: ? [id number] ? : ? 1965 (Age: 52) ??F [...] (ASCP) 11/09/2017 7:44 AM End of Report [facility] 11/06/2017 23:4 4 EDT 11/06/2017 23:44 EDT us Carolyn Ferrara DO PATHOLOGY ORDERABLES Final Res ult [facility] [address] [place] [address] documented in this encounter Visit Diagnoses Not on filedocumented in this encounter Care Teams Sweat Band Separator Relationship Specialty Start Date End Date Carlos Hyde MD PCP - General 03/31/15 11/09/17 documented as of this encounter
--- OUTSIDE RECORDS SUMMARY | 2024-07-08 18:50 | XMS_ITS | Encounter Summary ---
Author Organization [facility] Address [address] [place] [address] Care Team Providers Care Public Health Program Manager Name Role Phone Unavailable Primary Care Provider Unavailabl e Encounter Details Date Type Department Care Team (Latest Contact Info) Description 11/16/2000 15:32 EDT Hospital Encounter [facility] Emergency Department - [facility] [address] [place], [place] [id number] Emergency, Default, MD Discharge Disposition: Home or [...] or dislocation. /wades Raya Millan PA-C [facility] Final Result * [...] r/o fx + Raya Millan PA-C [facility] Final Result documented in this encounter Visit Diagnoses Not on filedocumented in this encounter
--- OUTSIDE RECORDS SUMMARY | 2024-07-08 18:50 | XMS_ITS | Encounter Summary ---
Author Organization [facility] Address [address] [place] [address] Care Team Providers Care Kettle Operator Head Name Role Phone Unavailable Primary Care Provider Unavailabl e Encounter Details Date Type Department Care Team (Late st Contact Info) Description 08/12/2002 Results Only [facility] conversion [address] [place] [address] Unknown, Provider, Social History Tobacco Use Types [...] ? ERICKSON [place] ? Accession #: ? [id number] : ? 1965 (Age: 37) ??F ?Collect [...] Final R esult [facility] [address] [place] [address] documented in this encounter Visit Diagnoses Not on filedocumented in this encounter
--- OUTSIDE RECORDS SUMMARY | 2024-07-08 18:50 | XMS_ITS | Encounter Summary ---
Author Organization [facility] Address [address] [place] [address] Care Team Providers Care Inventory Clerk Name Role Phone Unavailable Primary Care Provider Unavailabl e Encounter Details Date Type Department Care Team (Late st Contact Info) Description 05/15/2004 Results Only [facility] conversion [address] [place] [address] Ld Yanez MD [address] [place], [place] [id number] Social History Tobacco Use Types Packs/Day Years [...] ? [place] ? Accession #: ? [id number] ? : ? 1965 (Age: 38) ??F [...] submitted as (A). ?? Received in formalin [facility] and uterus, cervix, colleen ovaries, right tube [...] endomyometrium B4 ?Posterior cervix B5 ?Two sales and marketing representative sections of right fallopian tube and one sales and marketing representative section of right ? ovary with angel nodule B6 ?Cloth Napping Supervisor section of left ovary (Dr. Ledbetter-AF)/tmg End of Report [facility] 05/15/2004 05/16/2004 8:1 7 EST us Ld Yanez MD PATHOLOGY ORDERABLES Final Resul t [facility] [address] [place] [address] documented in this encounter Visit Diagnoses Not on filedocumented in this encounter
--- OUTSIDE RECORDS SUMMARY | 2024-07-08 18:50 | XMS_ITS | Encounter Summary ---
Author Organization [facility] Address [address] [place] [address] Care Team Providers Care Cracking Still Operator Name Role Phone Una Dickinson Primary Care Provider + Encounter Details Date Type Department Care Team (Late st Contact Info) Description 01/03/2021 Lab Requisition [facility] Pathology & Laboratory Medicine - [facility] [address] [place], [place] [id number] Outr Resulting Lab, Provider Social History Tobacco [...] DETECTION, PCR Negative Negative 01/04/2021 11:31 EDT [facility] Comment:This test was maame alfredo and its performance characteristics determined by [facility]. It has not been cleared or [...] AL ORDERABLES Final Result Performing Organization Address City/[facility] Co de Phone Number [facility] [address] [place] [address] * HERPES SIMPLEX VIRUS MOLECULAR DETECTION, PCR (01/02/2021 11:15 EDT) Herpes Simplex Virus Molecular Detection 1, PCR Negative Negative 01/04/2021 11:32 EDT [facility] Herpes Simplex Virus Molecular Detection 2, PCR Negative Negative 01/04/2021 11:32 EDT [facility] Swab ENTIRE BUTTOCK / Unknown 01/02/2021 11:15 EDT 01/03/2021 17:26 EDT us Provider Outr Resulting Lab MICROBIOLOGY - GENER AL ORDERABLES Final Result Performing Organization Address City/[facility] Co de Phone Number [facility] [address] [place] [address] documented in this encounter Visit Diagnoses Not on filedocumented in this encounter Care Teams Cracking Still Operator Relationship Specialty Start Date End Date Una Dickinson PA PCP - General 11/10/17 documented as of this encounter
--- OUTSIDE RECORDS SUMMARY | 2024-07-08 18:50 | XMS_ITS | Encounter Summary ---
Author Organization [facility] Address [address] [place] [address] Care Team Providers Care Production Material Handler Name Role Phone Una Dickinson Primary Care Provider + Encounter Details Date Type Department Care Team (Late st Contact Info) Description 06/06/2021 Lab Requisition [facility] Pathology & Laboratory Medicine - [facility] [address] [place] [address] Alejandra Norris PA-C [address] [place] [address] Encounter for other general examination [...] management options, if applicable. 06/10/2021 11:19 EST [facility] Final Diagnosis A. SKIN OF BREAST, RIGHT, SUPERIOR/MEDIAL, BIOPSY: - Most suggestive of prurigo nodularis. See microscopic. B. SKIN OF BREAST, RIGHT, LATERAL, EXCISION: - Epidermal ulceration with dermal reactive change. See microscopic. 06/10/2021 11:19 [facility] Attestation By the signature below, the attending physician certifies that they have 1) personally conducted a gross and/or microscopic examination of the described specimen(s), and/or personally interpreted the results of laboratory testing of the described specimen(s), and 2) personally rendered or confirmed the above diagnosis. 06/10/2021 11:19 [facility] at [address] Microscopic [...] examined. Clinical correlation is recommended. 06/10/2021 11:19 [facility] Clinical History Skin lesions right breast 06/10/2021 11:19 [facility] Gross Description A. [...] LILLY FARRAR(ASCP) 06/07/2021 7:46 06/10/2021 11:19 EST [facility] Performing Lab [facility] 06/10/2021 11:19 EST [facility] Scanned Images 06/10/2021 11:19 EST [facility] Tissue TISSUE SPECIMEN FROM SKIN / Unknown 06/06/2021 15:15 EST 06/06/2021 23:44 EST Tissue specimen (specimen) SPECIMEN FROM SKIN / Unknown 06/06/2021 15:15 EST 06/06/2021 23:44 EST us Alejandra Norris PA-C PATHOLOGY ORDERABLES Final Result [facility] [address] [place] [address] documented in this encounter Visit Diagnoses Diagnosis Encounter for other general examination documented in this encounter Care Teams Production Material Handler Relationship Specialty Start Date End Date Una Dickinson PA PCP - General 11/10/17 documented as of this encounter
--- OUTSIDE RECORDS SUMMARY | 2024-07-08 18:50 | XMS_ITS | Encounter Summary ---
Author Organization [facility] Address [address] [place] [address] Care Team Providers Care Metrology Specialist Name Role Phone Una Dickinson Primary Care Provider + Encounter Details Date Type Department Care Team (Late st Contact Info) Description 09/28/2019 Lab Requisition [facility] Pathology & Laboratory Medicine - [facility] [address] [place], [place] [id number] Outr Resulting Lab, Provider Social History Tobacco [...] Not Detected Not Detected 09/29/2019 15:[address] [facility] Comment: This test has not been [...] or revoked sooner. ??Factsheets for healthcare providers: ??https://www.fda.gov/media/373564/download Factsheets for patients: https://www.fda.gov/media/331295/download Negative results do not preclude infection with SARS-CoV-2 virus, and should not be the sole basis of a patient management decision. Swab ENTIRE NASOPHARYNX / Unknown 09/28/2019 14:15 EDT 09/28/2019 20:25 EDT us Provider Outr Resulting Lab MICROBIOLOGY - GENER AL ORDERABLES Final Result Performing Organization Address City/State/[facility] Co de Phone Number [facility] [address] [place] [address] * COVID-19 TESTING (09/28/2019 14:15 EDT) COVID-19 rt-PCR Result Not Detected Not Detected 09/29/2019 15:[address] [facility] Comment: This test has not been [...] or revoked sooner. ??Factsheets for healthcare providers: ??https://www.fda.gov/media/797274/download Factsheets for patients: https://www.fda.gov/media/907555/download Negative results do not preclude infection with SARS-CoV-2 virus, and should not be the sole basis of a patient management decision. Performing Lab [facility] 09/29/2019 15:37 EDT [facility] Swab ENTIRE NASOPHARYNX / Unknown 09/28/2019 14:15 EDT 09/28/2019 20:25 EDT us Provider Outr Resulting Lab MICROBIOLOGY - GENER AL ORDERABLES Final Result [facility] [address] LABORATORY [address] [place] [address] documented in this encounter Visit Diagnoses Not on filedocumented in this encounter Care Teams Metrology Specialist Relationship Specialty Start Date End Date Una Dickinson PA PCP - General 11/10/17 documented as of this encounter
--- OUTSIDE RECORDS SUMMARY | 2024-07-08 18:50 | XMS_ITS | Encounter Summary ---
Author Organization [facility] Address [facility] [place] [address] Care Team Providers Care Estate Manager Name Role Phone None Primary Care Provider Unavailabl e Encounter Details Date Type Department Care Team (Latest Contact Info) Description 12/28/2023 2:00 PM EDT TH Visit (TeleHealth) Infectious Disease at [facility] [place] [id number] Stephenie Moya MD [facility] [place] [address] 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; FPC current use of antibiotics Social History Tobacco Use Types Packs/Day Years Used Date Smoking Tobacco: Every Day Cigarettes 1 28 Smokeless Tobacco: Never Comments:Currently using kalia otine inhaler to help herself quit (11/08/18) Alcohol Use Standard Drinks/Week Comments Not Currently 0 (1 standard drink = 0.6 oz pur e alcohol) [facility] Utilities Answer Date Recorded In the past 12 months has e [employer] gas, oil, or water [employer] threatened to shut off services in your [...] dry socket after being evaluated at an [facility] site. She had two additional antibiotics [...] of ceftriaxone. On 12/27, she called the [facility] office stating that she was not able to make her into therapy appointment due to lack of money for gas. She states that her PICC line fell out on 12/22 and had been taking her old prescription of Augmentin. Appointment via telephone given technology issues. She corroborates what she told the [facility] nurses, she states that she has [...] antibiotics documented in this encounter Care Teams Estate Manager Relationship Specialty Start Date End Date None None PCP - General 12/01/23 documented as of this encounter
--- OUTSIDE RECORDS SUMMARY | 2024-07-08 18:50 | XMS_ITS | Encounter Summary ---
Author Organization [facility] Address [address] [place] [address] Care Team Providers Care Electrolysis Needle Operator Name Role Phone Una Dickinson Primary Care Provider + Encounter Details Date Type Department Care Team (Late st Contact Info) Description 10/12/2019 Lab Requisition [facility] Pathology & Laboratory Medicine - [facility] [address] [place], [place] [address] Outr Resulting Lab, Provider Social History Tobacco [...] 85 - 499 mg/dL 10/13/2019 10:53 EDT [facility] Blood VENOUS BLOOD / Unknown 10/11/2019 11:50 EDT 10/12/2019 15:42 EDT us Provider Outr Resulting Lab CHEMISTRY & BLOOD GA S ORDERABLES Final Result [facility] [address] [place] [address] documented in this encounter Visit Diagnoses Not on filedocumented in this encounter Care Teams Electrolysis Needle Operator Relationship Specialty Start Date End Date Una Dickinson PA PCP - General 11/10/17 documented as of this encounter
--- OUTSIDE RECORDS SUMMARY | 2024-07-08 18:50 | XMS_ITS | Encounter Summary ---
Author Organization [facility] Address [address] [place] [address] Care Team Providers Care Implementation Architect Name Role Phone Una Dickinson Primary Care Provider + Encounter Details Date Type Department Care Team (Late st Contact Info) Description 10/06/2019 Lab Requisition [facility] Pathology & Laboratory Medicine - [facility] [address] [place], [place] [address] Outr Resulting Lab, Provider Social History Tobacco [...] Negative Negative 10/06/2019 14:43 EDT [facility] Feces SPECIMEN FROM RECTUM / Unknown 10/04/2019 8:00 EDT 10/06/2019 9:51 EDT us Provider Outr Resulting Lab MICROBIOLOGY - GENER AL ORDERABLES Final Result [facility] [address] [place] [address] documented in this encounter Visit Diagnoses Not on filedocumented in this encounter Care Teams Implementation Architect Relationship Specialty Start Date End Date Una Dickinson PA PCP - General 11/10/17 documented as of this encounter
--- OUTSIDE RECORDS SUMMARY | 2024-07-08 18:50 | XMS_ITS | Encounter Summary ---
Author Organization [facility] Address [address] [place] [address] Care Team Providers Care Bobbin Winder Name Role Phone Una Dickinson Primary Care Provider + Encounter Details Date Type Department Care Team (Late st Contact Info) Description 10/05/[address] [facility] Pathology & Laboratory Medicine - [facility] [address] [place], [place] [address] Outr Resulting Lab, Provider Social History Tobacco [...] Salmonella PCR Negative Negative 10/06/2019 12:12 EDT [facility] Shigella/Enteroin vasive E. coli Negative Negative 10/06/2019 12:12 EDT [facility] HN LAB CAMPYLOBACTER PCR Negative Negative 10/06/2019 12:12 EDT [facility] Shiga Toxin PCR Negative Negative 0 12:12 EDT [facility] Feces SPECIMEN FROM RECTUM / Unknown 10/04/2019 8:00 EDT 10/05/2019 16:56 EDT us Provider Outr Resulting Lab MICROBIOLOGY - GENER AL ORDERABLES Final Result [facility] [address] [place] [address] documented in this encounter Visit Diagnoses Not on filedocumented in this encounter Care Teams Bobbin Winder Relationship Specialty Start Date End Date Una Dickinson PA PCP - General 11/10/17 documented as of this encounter
--- OUTSIDE RECORDS SUMMARY | 2024-07-08 18:50 | XMS_ITS | Clinical Summary ---
Author Organization [facility] Address [address] [place] [address] Care Team Providers Care Walnut Dehydrator Operator Name Role Phone Una Dickinson Primary [...] 2024 Insurance MEDICAID [place] MEDICARE Care Teams Walnut Dehydrator Operator Relationship Specialty Start Date End Date Una Dickinson PA PCP - General 11/10/17
--- OUTSIDE RECORDS SUMMARY | 2024-07-08 18:50 | XMS_ITS | Encounter Summary ---
Author Organization [facility] Address [address] [place] [address] Care Team Providers Care Packing House Laborer Name Role Phone Unavailable Primary Care Provider Unavailabl e Encounter Details Date Type Department Care Team (Late st Contact Info) Description 10/16/2003 Results Only [facility] conversion [address] [place] [address] Doris Tay MD [address] [place], [place] [id number] Social History Tobacco Use Types Packs/Day Years [...] ? [place] ? Accession #: ? [id number] : ? 1965 (Age: 38) ??F ?Collect [...] ORDERABLES Final Resul t Performing Organization Address City/State/[facility] Co de Phone Number [facility] [address] [place] [address] documented in this encounter Visit Diagnoses Not on filedocumented in this encounter
--- OUTSIDE RECORDS SUMMARY | 2024-07-08 18:50 | XMS_ITS | Encounter Summary ---
Author Organization [facility] Address [address] [place] [address] Care Team Providers Care Guide Rail Cleaner Name Role Phone Una Dickinson Primary Care Provider + Encounter Details Date Type Department Care Team (Late st Contact Info) Description 10/05/2019 Lab Requisition [facility] Pathology & Laboratory Medicine - [facility] [address] [place], [place] [address] Outr Resulting Lab, Provider Social History Tobacco [...] and Giardia Antigen Neg 0 10:41 EDT [facility] Feces SPECIMEN FROM RECTUM / Unknown 10/04/2019 8:00 EDT 10/05/2019 16:55 EDT us Provider Outr Resulting Lab MICROBIOLOGY - GENER AL ORDERABLES Final Result Performing Organization Address [facility] Co de Phone Number [facility] [address] [place] [address] * OVA/PARASITE EXAM (10/04/2019 8:00 EDT) Parasite No ova and parasites seen. 10/06/2019 13:58 EDT [facility] Feces SPECIMEN FROM RECTUM / Unknown 10/04/2019 8:00 EDT 10/05/2019 16:55 EDT Narrative [facility] - 10/06/2019 13:58 EDT (If Cryptosporidium, Cyclospora, or Microsporidium are suspected, specific tests must be requested.) Single negative specimen does not rule out the possibility of a parasitic infection. us Provider Outr Resulting Lab MICROBIOLOGY - GENER AL ORDERABLES Final Result Performing Organization Address [facility] Co de Phone Number [facility] [address] [place] [address] documented in this encounter Visit Diagnoses Not on filedocumented in this encounter Care Teams Guide Rail Cleaner Relationship Specialty Start Date End Date Una Dickinson PA PCP - General 11/10/17 documented as of this encounter
--- OUTSIDE RECORDS SUMMARY | 2024-07-08 18:50 | XMS_ITS | Encounter Summary ---
Author Organization [facility] Address [address] [place] [address] Care Team Providers Care Buckle Stapler Name Role Phone Unavailable Primary Care Provider Unavailabl e Encounter Details Date Type Department Care Team (Late st Contact Info) Description 09/23/2005 Results Only [facility] conversion [address] [place] [address] Abdirashid Parmar, DO [address] [facility] [address] [place], [place] [id number] Social History Tobacco Use Types Packs/Day Years [...] ? [place] ? Accession #: ? [id number] ? : ? 1965 (Age: 40) ??F [...] noted in any of the esophageal biopsies. /[facility] Document reviewed and electronically signed by: JAVIER [...] soft tissue, entirely submitted as (D). ??(Nieves Davila)/[facility] End of Report [facility] 09/23/2005 09/23/2005 15: 31 EDT us Abdirashid Parmar DO PATHOLOGY ORDERABLES Fi nal Result [facility] [address] [place] [address] documented in this encounter Visit Diagnoses Not on filedocumented in this encounter
--- OUTSIDE RECORDS SUMMARY | 2024-07-08 18:50 | XMS_ITS | Encounter Summary ---
Author Organization [facility] Address [address] [place] [address] Care Team Providers Care Vocational Technical Education Director Name Role Phone Una Dickinson Primary Care Provider + Encounter Details Date Type Department Care Team (Late st Contact Info) Description 05/28/2022 Lab Requisition [facility] Pathology & Laboratory Medicine - [facility] [address] [place], [place] [address] Outr Resulting Lab, Provider Social History Tobacco [...] Result (FLARES) Negative Negative 05/29/2022 22:[address] [facility] FLU B RNA Result (FLBRES) Negative Negative 05/29/2022 22:[address] [facility] RSV RNA Result (RSVRES) Negative Negative 05/29/2022 22:[address] [facility] Swab ENTIRE NASOPHARYNX / Unknown 05/28/2022 11:00 EST 05/29/2022 17:48 EST us Provider Outr Resulting Lab MICROBIOLOGY - GENER AL ORDERABLES Final Result Performing Organization Address City/State/[facility] Co de Phone Number [facility] [address] [place] [address] documented in this encounter Visit Diagnoses Not on filedocumented in this encounter Care Teams Vocational Technical Education Director Relationship Specialty Start Date End Date Una Dickinson PA PCP - General 11/10/17 documented as of this encounter
--- OUTSIDE RECORDS SUMMARY | 2024-07-08 18:50 | XMS_ITS | Encounter Summary ---
Author Organization [facility] Address [facility] [place] [address] Care Team Providers Care Primary Care Nurse Practitioner Name Role Phone None Primary Care Provider Unavailabl e Encounter Details Date Type Department Care Team (Late st Contact Info) Description 12/28/2023 Notes [place] [address] Cindy Lizama RN Social History Tobacco Use Types Packs/Day Years Used Date Smoking Tobacco: Every Day Cigarettes 1 28 Smokeless Tobacco: Never Comments:Currently using kalia otine inhaler to help herself quit (11/08/18) Alcohol Use Standard Drinks/Week Comments Not Currently 0 (1 standard drink = 0.6 oz pur e alcohol) [facility] Utilities Answer Date Recorded In the [...] for 12/[address] Nita Mcnamraa/Onofre of money for gas. Pt also reports [...] pt requests that her be called at [phone] as she does not have great service where she lives. documented in this encounter Plan of Treatment Not on file documented as of this encounter Visit Diagnoses Not on filedocumented in this encounter Care Teams Primary Care Nurse Practitioner Relationship Specialty Start Date End Date None None PCP - General 12/01/23 documented as of this encounter
--- OUTSIDE RECORDS SUMMARY | 2024-07-08 18:50 | XMS_ITS | Encounter Summary ---
Author Organization [facility] Address [address] [place] [address] Care Team Providers Care Rack Puncher Name Role Phone Unavailable Primary Care Provider Unavailabl e Encounter Details Date Type Department Care Team (Late st Contact Info) Description 05/02/2008 Before PRISM Converted Visit ([facility]) [facility] conversion [address] [place] [address] Emma Zapata, ANALYTICAL STRATEGIST [facility] [address] [place], [place] [phone] Social History Tobacco Use Types Packs/Day Years [...] ? [place] ? Accession #: ? [id number] ? : ? 1965 (Age: 42) ??F [...] [facility] 05/02/2008 05/03/2008 us Emma Zapata ANALYTICAL STRATEGIST PATHOLOGY ORDERABLES Final Resu lt [facility] [address] [place] [address] documented in this encounter Visit Diagnoses Not on filedocumented in this encounter
--- OUTSIDE RECORDS SUMMARY | 2024-07-08 18:50 | XMS_ITS | Encounter Summary ---
Author Organization [facility] Address [address] [place] [address] Care Team Providers Care Photo Studio Assistant Name Role Phone Una Dickinson Primary Care Provider + Encounter Details Date Type Department Care Team (Late st Contact Info) Description 01/09/2021 Lab Requisition [facility] Pathology & Laboratory Medicine - [facility] [address] [place] [address] Outr Resulting Lab, Provider Social History Tobacco [...] IGA <1.2 <4.0 U/mL 01/14/2021 12:53 EDT [facility] Comment: A negative result may be due to IgA deficiency and does not rule out celiac disease. ? Negative: ??<4.0 U/mL ? Weak Positive: ??4.0 - 10.0 U/mL ? Positive: ??>10.0 U/mL Results were obtained with the [employer] QUANTA Lite R h-tTG IgA DANYELLE assay on the Lazarus Effect DSX. IgA 80(L) 85 - 499 mg/dL 01/14/2021 12:53 EDT [facility] Celiac Disease Interpretation Low total serum IgA. Recommend referral to gastroenterology specialist for additional evaluation. 01/14/2021 12:53 EDT [facility] Blood VENOUS BLOOD / Unknown 01/08/2021 12:10 EDT 01/09/2021 16:17 EDT us Provider Outr Resulting Lab IMMUNOLOGY AND SEROL OGY ORDERABLES Final Result Performing Organization Address City/State/[facility] Co de Phone Number [facility] [address] [place] [address] documented in this encounter Visit Diagnoses Not on filedocumented in this encounter Care Teams Photo Studio Assistant Relationship Specialty Start Date End Date Una Dickinson PA PCP - General 11/10/17 documented as of this encounter
--- OUTSIDE RECORDS SUMMARY | 2024-07-08 18:50 | XMS_ITS | Clinical Summary ---
Author Organization [facility] Address [facility] [place] [address] Care Team Providers Care Roof Promenade Tile Setter Name Role Phone None Primary Care Provider [...] drink = 0.6 oz pur e alcohol) [facility] Utilities Answer Date Recorded In [...] any time in the past 12 m [facility], were you homeless or living in a long term (including now)? No 11/20/2023 IPV Inpatient Questions [...] history exists Medical Devices Implanted Type Area Supervisor Model Making Device Identifier Shelf Expiration Date Model / Serial / Lot Screw,Crtx,Sta p,Star,2x18mm ([id number]) - [id number] Implanted:Qty: 1 on 09/16/2018 by Aparna Reed MD at [facility] IMPLANTS Right: Foot [employer]LEENA [employer] - ALEENA SALVATORE 201.368.97 / / Screw,Lck,Stap ,Star,2x14mm ([id number]) - [id number] Implanted:Qty: 1 on 09/16/2018 by Aparna Reed MD at [facility] IMPLANTS Right: Foot [employer]LEENA & [facility] - ALEENA SALVATORE 201.884 / / Screw,Lck,Stap ,Star,2x18mm (4814914) - [id number] Implanted:Qty: 1 on 09/16/2018 by Aparna Reed MD at [facility] IMPLANTS Right: Foot [employer]LEENA & [facility] [facility] - ALEENA SALVATORE 201.888 / / Plate,Lcp,7h,2 .0x52mm (5922515) - [id number] Implanted:Qty: 1 on 09/16/2018 by Aparna Reed MD at [facility] IMPLANTS Right: Foot ALEENA & ALEENA [employer] - ALEENA SALVATORE 247.347 / / Plate,Cndylr,L cp,7h,2.4mm (5849129) (Autoreq) - [id number] Implanted:Qty: 1 on 09/16/2018 by Aparna Reed MD at [facility] IMPLANTS Right: Foot ALEENA & [employer] - ALEENA SALVATORE 249.679 / / Bone,Crushed,C ancellous,10cc (7642728) ([employer]oreq) - [id number] Implanted:Qty: 1 on 09/16/2018 by Aparna Reed MD at [facility] IMPLANTS Right: Foot [facility]2023 [facility] / / [id number] Pin,Kwire,Plai n,2,0.244z3qw, Ns ([id number]) - [id number] Implanted:Qty: 3 on 09/16/2018 by Aparna Reed MD at [facility] IMPLANTS Left: Foot [employer] - MI[employer]RE 1600-945NS / / Plate,Lcp,Cndy lr,7h-Shft,2mm (0845776) - [id number] Implanted:Qty: 1 on 09/16/2018 by Aparna Reed MD at [facility] IMPLANTS Left: Foot ALEENA & [employer] - ALEENA SALVATORE 247.349 / / Screw,Lck,Stap ,Star,2x12mm (6205676) - [id number] Implanted:Qty: 1 on 09/16/2018 by Aparna Reed MD at [facility] IMPLANTS Left: Foot [employer]LEENA & [employer] - ALEENA SALVATORE 201.882 / / Screw,Crtx,Sta p,T8,2.4x16mm (3765162) - [id number] Implanted:Qty: 1 on 09/16/2018 by Aparna Reed MD at [facility] IMPLANTS Right: Foot ALEENA & [employer] - ALEENA SALVATORE 201.766 / / Screw,Lck,Stap ,Star,2x10mm (6942998) - [id number] Implanted:Qty: 1 on 09/16/2018 by Aparna Reed MD at [facility] IMPLANTS Left: Foot ALEENA & [employer] - ALEENA SALVATORE 201.880 / / Screw,Crtx,Sta p,Star,2x12mm (7975108) - [id number] Implanted:Qty: 1 on 09/16/2018 by Aparna Reed MD at [facility] IMPLANTS Left: Foot ALEENA & [employer] - ALEENA SALVATORE 201.362.97 / / Screw,Crtx,Sta p,Star,2x14mm (2597480) - [id number] Implanted:Qty: 1 on 09/16/2018 by Aparna Reed MD at [facility] IMPLANTS Left: Foot [employer]ENA & [employer] - ALEENA SALVATORE 201.364.97 / / Screw,Crtx,Sta p,Star,2x14mm (0210715) - [id number] Implanted:Qty: 1 on 09/16/2018 by Aparna Reed MD at [facility] IMPLANTS Right: Foot ALEENA & [employer] - ALEENA SALVATORE 201.364.97 / / Screw,Va,Lck,S lftp,T6,2x22mm (1375036) - [id number] Implanted:Qty: 1 on 09/16/2018 by Aparna Reed MD at [facility] IMPLANTS Right: Foot [employer] - DEPUY SYNT 02.130.322 / / Screw,Crtx,Sta p,Star,2x12mm (7695701) - [id number] Implanted:Qty: 1 on 09/16/2018 by Aparna Reed MD at [facility] IMPLANTS Right: Foot ALEENA & [facility] - ALEENA SALVATORE 201.362.97 / / Screw,Va,Lck,S lftp,T6,2x18mm (7986437) - [id number] Implanted:Qty: 1 on 09/16/2018 by Aparna Reed MD at [facility] IMPLANTS Right: Foot [employer] - DEPUY SYNT 02.130.318 / / Screw,Va,Lck,S lftp,T6,2x16mm (3040067) - [id number] Implanted:Qty: 1 on 09/16/2018 by Aparna Reed MD at [facility] IMPLANTS Right: Foot ALEENA & [facility] - ALEENA SALVATORE 02.130.316 / / Screw,Crtx,Sta p,Star,2x16mm (0490528) - [id number] Implanted:Qty: 1 on 09/16/2018 by Aparna Reed MD at [facility] IMPLANTS Right: Foot ALEENA & [facility] - ALEENA SALVATORE 201.366.97 / / Screw,Crtx,Sta p,Strdrv,2x10m m (3071779) - [id number] Implanted:Qty: 1 on 09/16/2018 by Aparna Reed MD at [facility] IMPLANTS Left: Foot ALEENA & [facility] - ALEENA SALVATORE 201.360.97 / / Screw,Crtx,Sta p,T8,2.4x26mm (2617220) - [id number] Implanted:Qty: 1 on 09/16/2018 by Aparna Reed MD at [facility] IMPLANTS Right: Foot ALEENA & [facility] - ALEENA SALVATORE 201.776 / / Guidew,Thrd,1. 4p159rb (9800650) - [id number] Implanted:Qty: 3 on 09/16/2018 by Aparna Reed MD at [facility] IMPLANTS Right: Foot ALEENA & [facility] - ALEENA SALVATORE 292.727 / / Screw,Crtx,Sta p,T8,2.4x22mm (8741056) - [id number] Implanted:Qty: 1 on 09/16/2018 by Aparna Reed MD at [facility] IMPLANTS Right: Foot ALEENA & [facility] - ALEENA SALVATORE 201.772 / / Screw,Slftp,Lc k,Star,2.4x12m m (6390109) - [id number] Implanted:Qty: 1 on 09/16/2018 by Aparna Reed MD at [facility] IMPLANTS Right: Foot ALEENA & [facility] - ALEENA SALVATORE 212.812 / / Screw,Lck,Stap ,Star,2.4x6mm (2099918) - [id number] Implanted:Qty: 1 on 09/16/2018 by Aparna Reed MD at [facility] IMPLANTS Right: Foot ALEENA & [facility] - ALEENA SALVATORE 212.806 / / Screw,Lck,Stap ,Star,2.4x18mm (4705371) - [id number] Implanted:Qty: 1 on 09/16/2018 by Aparna Reed MD at [facility] IMPLANTS Right: Foot ALEENA & [facility] - ALEENA SALVATORE 212.818 / / Screw,Crtx,Sta p,Strdrv,2x9mm (4104417) - [id number] Implanted:Qty: 1 on 09/16/2018 by Aparna Reed MD at [facility] IMPLANTS Right: Foot ALEENA & [facility] - ALEENA [employer]ORE 201.359.97 / / Screw,Crtx,Sta p,Star,2x28mm (1180114) - [id number] Implanted:Qty: 1 on 09/16/2018 by Aparna Reed MD at [facility] IMPLANTS Right: Foot ALEENA & [facility] - ALEENA SALVATORE 201.376.97 / / Explanted Type Area Supervisor Model Making Device Identifier Shelf Expiration Date Model / Serial / Lot Allan WelchTroc 1 Ed,Ns,0t495bp (9797469) (Autoreq) - [id number] Explanted:Qty: 1 on 09/16/2018 by Aparna Reed MD at [facility] IMPLANTS Right: Foot ALEENA & [facility] - ALEENA SALVATORE 292.20 / / Allan WelchTroc 1ed,Ns,2c675hs (1051770) - [id number] Explanted:Qty: 2 on 09/16/2018 by Aparna Reed MD at [facility] IMPLANTS Right: Foot ALEENA & ALEENA [...] EDT) Glucose 113 65 - 199 mg/dL [facility] Comment:Diabetes: >=200 mg/d L plus symptoms Blood Urea Nitrogen 15 8 - 18 mg/dL [facility] Creatinine 0.93 0.70 - 1.20 mg/dL [facility] Sodium 143 135 - 145 mmol/L [facility] Potassium 3.6 3.5 - 5.0 mmol/L [facility] Comment: Please note: ??Patients with WBC >100,000 may have falsely elevated Potassium levels. ??For accurate Potassium quantification in these patients send serum separator tube (gold top) for subsequent determinations. ??Contact the Clinical Chemistry Laboratory if there are any questions. Chloride 111(H) 98 - 107 mmol/L [facility] Carbon Dioxide 22 22 - 31 mmol/L [facility] Anion Gap 10 5 - 15 mmol/L [facility] Calcium 8.4(L) 8.5 - 10.5 mg/dL [facility] Est Glomerular Filtration Rate 72 >=60 mL/min/1. 73 m?? [facility] Comment: This patient's estimated GFR [...] In Lab Misael Joaquin MD CHEMISTRY ORDERABLES [facility] [place] [address] * Hemoglobin A1c (09/16/2018 3:33 PM EDT) Hemoglobin A1c 5.5 4.3 - 5.6 % [facility] Comment: Reference Range: 4.3 - [...] Mellitus, Diabetes Care 2013; 36: Suppl. 1, S67-58 Estimated Average Glucose 111 mg/dL [facility] Comment: eAG equivalents for HbA1c [...] into estimated average glucose values. ??Diabetes Care 2008:31(8):5476-5888. Blood specimen (specimen) 09/16/2018 3:33 PM EDT 09/16/2018 3:49 PM EDT Narrative Resulting Agency Comment Spec In Lab Javad Urban MD CHEMISTRY ORDERABLES [facility] [place] [address] from Last 3 Months or Most Recently [...] capacity to make decision: Yes Care Teams Roof Promenade Tile Setter Relationship Specialty Start Date End Date None None PCP - General 12/01/23
--- OUTSIDE RECORDS SUMMARY | 2024-07-08 18:50 | XMS_ITS | Referral Summary ---
Author Organization [facility] Address [address] [place] [address] Care Team Providers Care Vending Route Driver Name Role Phone Una Dickinson Primary Care [...] file Insurance MEDICAID [place] MEDICARE Care Teams Vending Route Driver Relationship Specialty Start Date End Date Una Dickinson PA PCP - General 11/10/17
--- OUTSIDE RECORDS SUMMARY | 2024-07-08 18:50 | XMS_ITS | Encounter Summary ---
Author Organization [facility] Address [address] [place] [address] Care Team Providers Care Computerized Machine Fabric Cutter Name Role Phone Unavailable Primary Care Provider Unavailabl e Encounter Details Date Type Department Care Team (Late st Contact Info) Description 04/14/2003 Results Only [facility] conversion [address] [place] [address] Maria E Esquivel MD [address] [place] [address] [place] [address] Social History Tobacco Use Types Packs/Day Years [...] ? [place] ? Accession #: ? [id number] ? : ? 1965 (Age: 37) ??F [...] of 0.2 cm. No are identified. ??Three escrow representative sections of normal-appearing fallopian tube are submitted as (A1), and two escrow representative sections of the dilated portion are submitted as (A2). ??(Dr. Beverly)/[facility] End of Report [facility] 04/14/2003 04/14/2003 15: 13 EST us Maria E Esquivel MD PATHOLOGY ORDERABLES Final Resu lt [facility] [address] [place] [address] documented in this encounter Visit Diagnoses Not on filedocumented in this encounter
--- OUTSIDE RECORDS SUMMARY | 2024-07-08 18:50 | XMS_ITS | Encounter Summary ---
Author Organization [facility] Address [facility] [place] [address] Care Team Providers Care Powder Blender And Pourer Name Role Phone None Primary Care Provider Unavailabl e Encounter Details Date Type Department Care Team (Late st Contact Info) Description 12/17/2023 8:00 AM EDT Office Visit [place] [phone] Delvin Church PA [facility] [place] [address] Osteomyelitis, unspecified site, unspecified type Social History Tobacco Use Types Packs/Day Years Used Date Smoking Tobacco: Every Day Cigarettes 1 28 Smokeless Tobacco: Never Comments:Currently using kalia otine inhaler to help herself quit (11/08/18) Alcohol Use Standard Drinks/Week Comments Not Currently 0 (1 standard drink = 0.6 oz pur e alcohol) [facility] Utilities Answer Date Recorded In the past 12 months has e [employer], gas, oil, or water [employer] threatened to shut off services in [...] type documented in this encounter Care Teams Powder Blender And Pourer Relationship Specialty Start Date End Date None None PCP - General 12/01/23 documented as of this encounter
--- OUTSIDE RECORDS SUMMARY | 2024-07-08 18:51 | XMS_ITS | Encounter Summary ---
Author Organization [facility] Address [facility] [place] [address] Care Team Providers Care Spare Hand Name Role Phone Yamile De Leon APRN Primary Care Provider Encounter Details Date Type Department Care Team (Late st Contact Info) Description 01/27/2019 6:20 PM EDT Ancillary Procedure Radiology Library at [facility] [place] [address] Aparna Reed MD [facility] [place] [address] Social History Tobacco Use Types Packs/Day Years [...] IMG FILM LIBRARY ORD ERABLES DH RAD [place], [place] documented in this encounter Visit Diagnoses Not on filedocumented in this encounter Care Teams Spare Hand Relationship Specialty Start Date End Date Yamile De Leon APRN PCP - General Family Medicine 10/01/18 11/19/23 documented as of this encounter
--- OUTSIDE RECORDS SUMMARY | 2024-07-08 18:51 | XMS_ITS | Encounter Summary ---
Author Organization [facility] Address [facility] [place] [address] Care Team Providers Care Livestock Feeder Name Role Phone Yamile De Leon APRN Primary Care Provider [phone] Encounter Details Date Type Department Care Team [...] in the past 12 m [facility], were you homeless or living [...] on filedocumented in this encounter Care Teams Livestock Feeder Relationship Specialty Start Date End Date Yamile De Leon APRN PCP - General Family Medicine 10/01/18 11/19/23 documented as of this encounter
--- OUTSIDE RECORDS SUMMARY | 2024-07-08 18:51 | XMS_ITS | Encounter Summary ---
Author Organization [facility] Address [facility] [place] [address] Care Team Providers Care Clay Plant Treater Name Role Phone Yamile De Leon APRN Primary Care Provider [phone] Encounter Details Date Type Department Care Team (Late st Contact Info) Description 12/20/2018 Ancillary Procedure Radiology Library at [facility] [place] [address] Aparna Reed MD [facility] DR [place] [address] Social History Tobacco Use Types Packs/Day Years [...] MD IMG FILM LIBRARY ORD ERABLES [facility] [place] documented in this encounter Visit Diagnoses Not on filedocumented in this encounter Care Teams Clay Plant Treater Relationship Specialty Start Date End Date Yamile De Leon APRN PCP - General Family Medicine 10/01/18 11/19/23 documented as of this encounter
--- OUTSIDE RECORDS SUMMARY | 2024-07-08 18:51 | XMS_ITS | Encounter Summary ---
Author Organization [facility] [place] [address] Care Team Providers Care Mortgage Accounting Clerk Name Role Phone Yamile De Leon APRN Primary Care Provider [phone] Reason for Referral * Consultation (Routine) - Closed Specialty Diagnoses / Procedures Referred By Bruce galo Referred To Contact Dermatology Diagnoses Breast lesion Yamile De Leon APRN [address] [place] [address] [facility] Dermatology [address] [place] [address] Referral ID Status Reason Start Date Expiration Date V isits Requested Visits Authorized [id number] Closed Consult, Test & Treat PCP Updated and/or Approved 10/11/2021 10/11/2022 6 6 Encounter Details Date Type Department Care Team (Late st Contact Info) Description 10/11/2021 Transcribe Orders eDH Incoming Referrals [phone] Yamile eD Leon APRN [address] [place], [place] [id number] Breast lesion Social History Tobacco Use Types [...] disorder documented in this encounter Care Teams Mortgage Accounting Clerk Relationship Specialty Start Date End Date Yamile De Leon APRN PCP - General Family Medicine 10/01/18 11/19/23 documented as of this encounter
--- OUTSIDE RECORDS SUMMARY | 2024-07-08 18:51 | XMS_ITS | Encounter Summary ---
Author Organization [facility] [address] Care Team Providers Care Jockey Room Custodian Name Role Phone None Primary Care Provider Unavailabl e Reason for Visit * Consultation (Routine) - Closed Specialty Diagnoses / Procedures Referred By Contac t Referred To Contact Infectious Diseases Diagnoses Osteomyelitis, unspecified site, unspecified type Ernesto Rodriguez MD [facility] [place] [address] [facility] Infectious Dis [address] [place] [phone] Referral ID Status Reason Start Date Expiration Date V isits Requested Visits Authorized [id number] Closed Specialty Service Requested 11/21/2023 11/20/2024 1 1 Encounter Details Date Type Department Care Team (Late st Contact Info) Description 12/09/2023 1:00 PM EDT TH Visit (TeleHealth) [place] [phone] Alea Bailey APRN [facility] [place] [address] Osteomyelitis of mandible; 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; 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 FLUSH PROTOCOL WITH MEDICATIONS ([facility]): Before med infusion: flush with [...] - See Instructions). FLUSH PROTOCOL WITH MEDICATIONS (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
--- OUTSIDE RECORDS SUMMARY | 2024-07-08 18:51 | XMS_ITS | Encounter Summary ---
Author Organization [facility] [place] [address] Care Team Providers Care Tubing Supervisor Name Role Phone None Primary Care Provider Unavailabl e Encounter Details Date Type Department Care Team (Late st Contact Info) Description 12/10/2023 Telephone [place] [address] Juliann Patino Social History Tobacco Use Types Packs/Day Years Used Date Smoking Tobacco: Every Day Cigarettes 06 21 Smokeless Tobacco: Never Comments:Currently using kalia otine inhaler to help herself quit (11/08/18) Alcohol Use Standard Drinks/Week Comments Not Currently 0 (1 standard drink = 0.6 oz pur e alcohol) [facility] Utilities Answer Date Recorded In the past 12 months has th e [employer], gas, oil, or water Apprity threatened to shut off services in your [...] No 11/20/2023 Housing Stability Vital Sign Answer Rajseh e Recorded In the last 12 months, [...] on filedocumented in this encounter Care Teams Tubing Supervisor Relationship Specialty Start Date End Date None None PCP - General 12/01/23 documented as of this encounter
--- OUTSIDE RECORDS SUMMARY | 2024-07-08 18:51 | XMS_ITS | Encounter Summary ---
[place] [address] Care Team Providers Care Final Assembly Worker Name Role Phone Unknown Primary Care Provider Unavailabl e Reason for Referral * Consultation (Routine) - Closed Specialty Diagnoses / Procedures Referred By Contac t Referred To Contact Infectious Diseases Diagnoses Osteomyelitis, unspecified site, unspecified [place] [address] [facility] [address] [place] [phone] Referral ID Status Reason Start Date Expiration Date V isits Requested Visits Authorized [id number] Closed Specialty Service Requested 11/21/2023 11/20/2024 1 1 Reason for Visit * Reason Comments Dental Pain * Auth/Cert (Routine) Specialty Diagnoses / Procedures Referred By Contac t Referred To Contact Diagnoses Osteomyelitis [place] [address] [facility] Referral ID Status Reason Start Date Expiration Date Visits Re quested Visits Authorized [id number] 1 1 Encounter Details Date Type Department Care Team (Latest Contact Info) Description 11/19/2023 10:47 AM EDT - 11/21/2023 2:10 PM EDT Hospital Encounter Medical Specialites Unit Level 1 [place] [address] [place] [address] Chiquita Azul MD [facility] [place] [address] [place] [address] [place] [address] Hypertension, unspecified type; Osteomyelitis, jaw acute; Osteomyelitis, [...] th e electric, gas, oil, or water [employer] threatened to shut off services in your [...] any time in the past 12 [facility], were you homeless or living in [...] Erickson La Patient Age: 58 y.o. Language: Chadian Race: White Ethnicity: Not nor Admit date: [...] please contact your inpatient physician through the [facility] Branch Office Administrator . Issues afterhours and on weekends will [...] dry socket after being evaluated at an [facility] site. She had two additional antibiotics courses [...] Procedure Component Value Units Date/Time Urine culture [[id number]] Collected: 11/20/23 0722 Lab Status: Final result Specimen: First Catch Urine Updated: 11/21/23 0752 Urine Culture No growth (Less than 1,000 cfu/ml). Abscess/Wound Asp Culture, Aerobic and Anaerobic Fluid; Other [[id number]] (Abnormal) Collected: 11/19/23 164 Lab Status: Preliminary result Specimen: Fluid from Other Updated: 11/21/23 1302 Abscess/Wound Aspirate Culture [[id number]] (Abnormal) Collected: 11/19/23 164 Lab Status: Preliminary result Specimen: Fluid from Other Updated: 11/21/23 1302 Abscess/Wound Aspirate Culture -- Moderate Streptococcus milleri, anginosis group Rare normal oropharyngeal shala Gram Stain -- Many Neutrophils seen Rare Gram Positive Cocci seen Anaerobic Culture [[id number]] Collected: 11/19/23 164 Lab Status: Preliminary result Specimen: Fluid from Other Updated: 11/20/23 1417 Anaerobic Culture No anaerobic organisms isolated to date Studies: Results for orders placed or performed during the hospital encounter of 11/19/23 CT Face w Contrast (Exam End: 11/19/2023 12:37 PM) Result Value WORKSTATION ID [id number] Impression Advanced osteomyelitis of the anterior RIGHT [...] have questions please contact the health care support representative that requested your imaging first. Electronically signed by: Marilou Perez MD, [facility] ([phone]), at 11/19/2023 1:18 PM Updated Allergies/ADRs: Allergies [...] HYDROcodone-acetaminophen 5-325 mg tablet Commonly known as: [place] ibuprofen 600 mg tablet Commonly known as: [...] spent >30 minutes (Day of Discharge Code 99540) involved in the final examination of the [...] ppx: enoxparin -PCP: Yamile De Leon APRN [phone] Attestation: IPI Certification I certify that I am a D-H credentialed attending provider with admitting privileges and that the patient meets or has met medical necessity to require an inpatient IPI level of care meeting a minimumof two midnights or is on the [facility] inpatient only procedure list (status C) due [...] providers found PCP: Yamile De Leon APRN ([phone]) Chief Complaint Patient presents with Dental Pain ID: Erickson La is a 58 y.o. female w/ PMH of hypertension, chronic back pain, severe hot flashes, LORRI generally not using home CPAP, and non-insulin dependent diabetes mellitus, who was admitted[facility] on 11/19/2023 (now on Hospital Day [...] Intake/Output Summary (Last 24 hours) at 11/20/2023 0684 Last data filed at 11/20/2023 0337 Gross [...] Component Value Units Date/Time Abscess/Wound Aspirate Culture [[id number]] (Abnormal) Collected: 11/19/23 1643 Lab Status: Preliminary result Specimen: Fluid from Other Updated: 11/19/232044 Gram Stain -- Many Neutrophils seen Rare Gram Positive Cocci seen Imaging/Diagnostics: Results for orders placed or performed during the hospital encounter of 11/19/23 (from the past 48 hour(s)) CT Face w Contrast (Exam End: 11/19/2023 12:37 PM) Result Value WORKSTATION ID [id number] Impression Advanced osteomyelitis of the anterior RIGHT [...] have questions please contact the health care support representative that requested your imaging first. Electronically signed by: Marilou Perez MD, [facility] ([phone]), at 11/19/2023 1:18 PM Medications: Scheduled: cloNIDine [...] dependent diabetes mellitus , [facility] (now on Hospital Day [...] as ordered. Pain meds given once night supervisor. IV ABX tolerates without any complaints. Pt is aware a UA is needed, a hat is in place. Bed in low position, call jane and personal things within reach. Will continue to monitor. Will make RN and MD aware of any changes. * Paulino Li RN - 11/20/2023 3:46 AM EDT 0300- pt arrived to [facility] from ED. Pt oriented to room and [...] dry socket after being evaluated at an [facility] site. She had two additional antibiotics courses [...] 11/19/2023 12:37 PM) Result Value WORKSTATION ID [id number] Impression Advanced osteomyelitis of the anterior RIGHT [...] have questions please contact the health care support representative that requested your imaging first. Electronically signed by: Marilou Perez MD, [facility] ([phone]), at 11/19/2023 1:18 PM Assessment & Plan [...] ppx: enoxparin - PCP: Yamile De Leon, FREIGHT ELEVATOR OPERATOR [phone] Misael Joaquin Pager #[phone] [facility] Medicine documented in this encounter ED Notes [...] abx. She was then seen by an greensman who removed all of her teeth on [...] week she was instructed to go to [facility] ER to see an oral surgeon. [...] have questions please contact the health care support representative that requested your imaging first. Electronically signed by: Marilou Perez MD, [facility] ([phone]), at 11/19/2023 1:18 PM Procedures Assessment and [...] dry socket after being evaluated at an [facility] care site. She had two additional antibiotics [...] 3.24) performed by Aparna Reed MD at [facility] OR PRO OPEN TREATMENT METATARSAL FRACTURE EACH Bilateral 09/16/2018 ORIF METATARSAL FX, EACH (WRVU 7.44) performed by Aparna Reed MD at [facility] OR PRO OPEN TREATMENT TARSOMETATARSAL JOINT DISLOCATION Right 09/16/2018 OPEN TREAMENT TARSOMETATARSAL JOINT DISLOCATION (WRVU 10.7) performed by Aparna Reed MD at [facility] OR PRO OPEN TX FRACTURE GREAT TOE/PHALANX/PHALANGES Right 09/16/2018 ORIF GREAT TOE (WRVU 7.44) performed by Aparna Reed MD at [facility] OR PRO PERCUT TREAT METATARSAL FX Left 09/16/2018 PERCUTANEOUS PINNING, METATARSAL FX, EA. (WRVU 3.6) performed by Aparna Reed MD at [facility] OR PRO PERCUT TREAT TAR-METATAR FOOT DISLOC Right 09/16/2018 PERCUTANEOUS PINNING, TARSOMETATARSAL JOINT DISLOCATION (WRVU 5.09) performed by Aparna Reed MD at [facility] OR SHOULDER ARTHROSCOPY Bilateral Medications: Scheduled [...] Moya MD, MPH Fellow, Infectious Disease Pager: [phone] Epic Chat 11/20/2023 Associated attestation - Juan [...] would be willing to assist, and her [id number] is nearby and available as well. She [...] surrogate would be surrogate decision maker per [place] surrogate decision making law. (Only good for 180 days) Any patient receiving care in [place] must abide by [place] law. The hierarchy for surrogate decision making [...] (i) The agent with financial power of trial attorney or a conservator appointed in accordance [...] or living in a skilled nursing (including now)?: No In the past 12 months has the [employer], gas, oil, or water [employer] threatened to shut off services in your [...] (in the winter) Home Address confirmed as: [address] [place] [address] Social & Family Supports: All names listed below confirmed with patient as current and correct Extended Emergency Contact Information Primary Emergency Contact: Taylor La Address: [address] [place] [address] of [place] Mobile Relation: Spouse Secondary Emergency [...] Yes ; Prescription Coverage: Yes Preferred Pharmacy: [facility] [address] [address] Status: Patient is a : No Primary Care Provider confirmed: Unknown None-goes to [facility] but is unsure of providers name Patient/Caregiver Goals of Treatment: to return home [place] once plan is determined. She doesnt want to hold a bed for someone else who may need it Potential Needs for Transition of Care: home health care, outpatient care Agency Referrals: I have met with the patient to: discuss discharge planning needs. provide the [facility], Office of Care Management letter from the [employer] pertaining to rehab referrals. provide a letter describing our affiliations within the [facility] and educate about their right to choose where referrals are sent. provide a list of Home Health Agencies / Durable Medical Equipment vendors which serve their preferred geographic area. provided patient with [facility] Star Quality Rating handout. They have requested referrals to: [facility] [address] [place] [address] [place], [place] [address], [place] [id number] [place] [address] or Note routed to a [employer] Officer who will communicate referrals to facilities and [...] provided most of pt care. Please see PRODUCT APPLICATIONS SCIENTIST's note for further shift details. Additionally, Pt [...] La Age/Sex: 58 y.o. female ENT Attending: [facility] Day: 2 History of Present Illness [...] several dental caries. This was performed in [facility]. Since extractions she has had intermittent swelling and purulent drainage from her extraction site. She was started on now ?7 courses of antibiotics since July with intermittent improvement in symptoms which unfortunately have returned. She was again started on Clindamycin last and notessome initial improvement but this has progressed. She was told earlier this week [facility]. [...] 3.24) performed by Aparna Reed MD at [facility] OR PRO OPEN TREATMENT METATARSAL FRACTURE EACH Bilateral 09/16/2018 ORIF METATARSAL FX, EACH (WRVU 7.44) performed by Aparna Reed MD at [facility] OR PRO OPEN TREATMENT TARSOMETATARSAL JOINT DISLOCATION Right 09/16/2018 OPEN TREAMENT TARSOMETATARSAL JOINT DISLOCATION (WRVU 10.7) performed by Aparna Reed MD at [facility] OR PRO OPEN TX FRACTURE GREAT TOE/PHALANX/PHALANGES Right 09/16/2018 ORIF GREAT TOE (WRVU 7.44) performed by Aparna Reed MD at [facility] OR PRO PERCUT TREAT METATARSAL FX Left 09/16/2018 PERCUTANEOUS PINNING, METATARSAL FX, EA. (WRVU 3.6) performed by Aparna Reed MD at [facility] OR PRO PERCUT TREAT TAR-METATAR FOOT DISLOC Right 09/16/2018 PERCUTANEOUS PINNING, TARSOMETATARSAL JOINT DISLOCATION (WRVU 5.09) performed by Aparna Reed MD at [facility] OR SHOULDER ARTHROSCOPY Bilateral Medications & Allergies [...] Tape, occlusive adhesive Social History [place] in [place] [address] Social History Socioeconomic History Marital status: Spouse [...] on 11/19/23 Source Information Dariana Jane MD [facility] Ed Document History Procedures - Labs [...] Jane MD, PGY4 11/20/2023 3:54 PM Pager #[phone] ENT Team Pager: [phone] documented in this encounter Plan of Treatment [...] Glucose, POC 154 65 - 199 mg/dL [facility] Comment: Supplemental ranges: <140 mg/dL before meals <180 mg/dL all other times of the day Blood 11/21/2023 11:2 7 AM EDT 11/21/2023 11:27 AM EDT Jeramie Rodriguez MD POINT OF CARE TEST ORDERABLES [facility] [place] [address] * POCT Glucose (11/21/2023 6:29 AM EDT) Pathologist [facility] Glucose, POC 120 65 - 199 mg/dL [facility] Comment: Supplemental ranges: <140 mg/dL before meals <180 mg/dL all other times of the day Blood 11/21/2023 6:29 AM EDT 11/21/2023 6:29 AM EDT Walt Sewell MD POINT OF CARE TEST O RDERABLES [facility] [place] [address] * Differential, Automated (11/21/2023 5:25 AM EDT) [facility] Neutrophil % 49.4 % [facility] Neutrophil Absolute 3.46 1.70 - 6.10 x10(3)/[facility] Lymph % 41.6 % [facility] Lymphocytes Abs 2.9 0.9 - 3.2 x10(3)/[facility] Monocyte % 7.1 % [facility] Monocyte Abs 0.5 0.3 - 0.9 x10(3)/[facility] Eos % 1.4 % [facility] Eosinophils Abs 0.1 0.0 - 0.4 x10(3)/[facility] Basophil % 0.4 % [facility] Baso Absolute 0.0 0.0 - 0.1 x10(3)/[facility] Immature Gran % 0.10 % [facility] Comment: Immature granulocytes(IG's)percentage and absolute count will include metamyelocytes, myelocytes, and promyelocytes. Blood smears from CBCs yielding IG's will be scanned manually for concordance. If this scan disagrees with the automated IG or if promyelocytes are noted, a manual differential will be performed. Immature Gran Absolute 0.01 0.00 - 0.04 x10(3)/[facility] Blood 11/21/2023 5:25 AM EDT 11/21/2023 5:32 AM EDT Narrative Resulting Agency Comment Spec In Lab Misael Joaquin MD HEMATOLOGY ORDERABLE S [facility] [place] [address] * (ABNORMAL) Hemogram (11/21/2023 5:25 AM EDT) White Blood Cell 7.0 4.0 - 9.5 x10(3)/mc L [facility] Red Blood Cell 3.67(L) 4.00 - 5.21 x10(6)/mc L [facility] Hemoglobin 11.5(L) 11.7 - 15.5 g/dL [facility] Hematocrit 34.7(L) 35.7 - 45.8 % [facility] Mean Cell Volume 94.6(H) 82.6 - 94.4 fL [facility] Mean Cell Hemoglobin 31.3 27.1 - 32.0 pg [facility] Mean Cell Hemoglobin Concentration 33.1 31.7 - 35.0 g/dL [facility] Platelet 247 145 - 357 x10(3)/mc L [facility] RDW Standard Deviation 43.3 37.0 - 46.0 fL [facility] RDW coefficient of variation 12.5 11.5 - 14.1 % [facility] Mean Platelet Volume 9.7 7.6 - 12.9 fL [facility] NRBC% auto 0.0 % [facility] NRBC Absolute 0.000 0.000 - 0.000 x10(3)/mc L [facility] Blood 11/21/2023 5:25 AM EDT 11/21/2023 5:32 AM EDT Narrative Resulting Agency Comment Spec In Lab Misael Joaquin MD HEMATOLOGY ORDERABLE S [facility] [place] [address] * (ABNORMAL) Basic Metabolic Panel (non-fasting) (11/21/2023 5:25 AM EDT) Glucose 113 65 - 199 mg/dL [facility] Comment:Diabetes: >=200 mg/d L plus symptoms Blood Urea Nitrogen 15 8 - 18 mg/dL [facility] Creatinine 0.93 0.70 - 1.20 mg/dL [facility] [...] questions. Chloride 111(H) 98 - 107 mmol/L [facility] Carbon Dioxide 22 22 - 31 mmol/L [facility] Anion Gap 10 5 - 15 mmol/L [facility] Calcium 8.4(L) 8.5 - 10.5 mg/dL [facility] Est Glomerular Filtration Rate 72 >=60 mL/min/1. 73 m?? [facility] Comment: This patient's estimated GFR [...] Joaquin MD CHEMISTRY ORDERABLES Performing Organization Address [facility]/ZIP Co de Phone Number [facility] [place] [address] * POCT Glucose (11/20/2023 9:45 PM EDT) Glucose, POC 131 65 - 199 mg/dL [facility] Comment: Supplemental ranges: <140 mg/dL before meals <180 mg/dL all other times of the day Blood 11/20/2023 9:45 PM EDT 11/20/2023 9:45 PM EDT Walt Sewell MD POINT OF CARE TEST O RDERABLES Performing Organization Address [facility]/ZIP Co de Phone Number [facility] [place] [address] * POCT Glucose (11/20/2023 7:01 PM EDT) Glucose, POC 162 65 - 199 mg/dL [facility] Comment: Supplemental ranges: <140 mg/dL before meals <180 mg/dL all other times of the day Blood 11/20/2023 7:01 PM EDT 11/20/2023 7:01 PM EDT Walt Sewell MD POINT OF CARE TEST O RDSILVIO Performing Organization Address [facility]/ZIP Co de Phone Number [facility] [place] [address] * (ABNORMAL) POCT Glucose (11/20/2023 4:44 PM EDT) Glucose, POC 262(H) 65 - 199 mg/dL [facility] Comment: Supplemental ranges: <140 mg/dL before meals <180 mg/dL all other times of the day Blood 11/20/2023 4:44 PM EDT 11/20/2023 4:44 PM EDT Walt Sewell MD POINT OF CARE TEST O RDERABLES [facility] [address] * ECHO COMPLETE (11/20/2023 4:03 PM EDT) Anatomical Region Laterality Modality Cardiac Other 11/20/2023 3:17 PM EDT Narrative 11/20/2023 4:13 PM EDT [address] [place] [address] ? Echocardiogram Report Name: ERICKSON LA Jessica ?Study Date: 11/20/2023 03:17 PM ? Patient Location: [id number] A : 1965 ? Height: 155 cm ? Account: [id number] Age: 58 yrs ? Weight: 70 kg Gender: Female ?BSA: 1.7 m2 Ordering Physician: WALT SEWELL Referring Physician: NONE Performed By: Kiana Andrade RDCS Reason For Study: Osteomyelitis Exam Location: [facility]. Interpretation Summary 1. Left ventricle is [...] No prior study available for comparison. Procedure Complete-[id number]. Satisfactory quality. Left Ventricle Left ventricle is [...] Note Michael Acharya MD - 11/20/2023 [address] [place] [address] Echocardiogram Report Name: ERICKSON LA Study Date: 403:17 PM Patient Location: [id number] : 1965 Height: 155 cm Account: [id number] Age: 58 yrs Weight: 70 kg Gender: Female BSA: 1.7 m2 Ordering Physician: WALT SEWELL Referring Physician: NONE Performed By: Kiana Andrade RDCS Reason For Study: Osteomyelitis Exam Location: [facility]. Interpretation Summary 1. Left ventricle is [...] No prior study available for comparison. Procedure Complete-[id number]. Satisfactory quality. Left Ventricle Left ventricle is [...] MD ECHO ORDERABLES * MRSA PCR Screen ([facility]/CGP/APD/[facility]) (11/20/2023 12:27 PM EDT) MRSA PCR Negative Negative [facility] MRSA (Interp) Methicillin-resist ant Staphylococcus aureus (MRSA) is NOT DETECTED The MRSA target DNA sequences (mec and SCC) were not detected within the acceptable ranges using the Xpert MRSA NxG on the GeneXpert Dx System ([employer]). This suggests the absence of MRSA in the patient specimen submitted for testing. This test is cleared by the U.S. Food and Drug Administration for clinical use and its performance characteristics have been verified by the [facility] at [facility]. This result does not rule out the presence of any other organisms. Rare false negative results may occur if MRSA is present at low concentrations with much higher concentrations of other organisms including MRSE or S. aureus with an empty SCC cassette. [facility] Comment: [VERIFIED DATE]11.21.23 Verified By:Kathy Nation (Electronic Signature) Swab 11/20/2023 12:2 7 PM EDT 11/20/2023 2:35 PM EDT Comment:Swab pus/exudate fro m tooth hole Narrative Resulting Agency Comment Spec In Lab Walt eSwell MD MOLECULAR ORDERABLES [facility] [place] [address] * Blood culture (11/20/2023 11:49 AM EDT) Blood Culture No growth at 5 days. [facility] Blood STRUCTURE OF RIGHT HAND / Unknown 11/20/2023 11:49 AM EDT 11/20/2023 12:15 PM EDT Narrative Resulting Agency Comment Spec In Lab Walt Sewell MD MICROBIOLOGY - BLOOD ORDERABLES Performing Organization Address City/[facility]/ZIP Co de Phone Number [facility] [place] [address] * POCT Glucose (11/20/2023 11:36 AM EDT) Glucose, POC 132 65 - 199 mg/dL [facility] Comment: Supplemental ranges: <140 mg/dL before meals <180 mg/dL all other times of the day Blood 11/20/2023 11:3 6 AM EDT 11/20/2023 11:36 AM EDT Walt Sewell MD POINT OF CARE TEST O RDERABLES Performing Organization Address [facility] Co de Phone Number [facility] [place] [address] * Urine culture (11/20/2023 7:22 AM EDT) [facility] Urine Culture No growth (Less than 1,000 cfu/ml). [facility] First Catch Urine 11/20/2023 7:22 AM EDT 11/20/2023 9:09 AM EDT Narrative Resulting Agency Comment Spec In Lab Sherri Esquivel MD MICROBIOLOGY - GENE RAL ORDERABLES Performing Organization Address City/[facility]/ZIP Co de Phone Number [facility] [place] [address] * (ABNORMAL) Urinalysis Microscopic Exam (11/20/2023 7:22 AM EDT) RBC, Urine >100(H) 0 - 4 /HPF [facility] WBC, Urine 25(H) 0 - 5 /HPF [facility] Squamous Epithelial Cells Raw Data, Urine 2 <=4 /HPF [facility] Hyaline Casts, Urine 2 0 - 2 /LPF [facility] First Catch Urine 11/20/2023 7:22 AM EDT 11/20/2023 7:54 AM EDT Narrative Resulting Agency Comment Spec In Lab Sherri Esquivel MD URINE ORDERABLES Performing Organization Address City/[facility]/ZIP Co de Phone Number [facility] [place] [address] * (ABNORMAL) Urinalysis with reflex Culture (11/20/2023 7:22 AM EDT) Glucose, Urine Dipstick Negative Negative mg/dL [facility] [facility] Protein, Urine Dipstick 30(A) Negative mg/dL [facility] [...] [facility] Blood, Urine Dipstick Large(A) Negative mg/dL [facility] Ketone, Urine Dipstick Negative Negative mg/dL [facility] Nitrite, Urine Dipstick Negative Negative [facility] Leukocytes, Urine Dipstick Small(A) Negative [facility] Appearance, Urine Dipstick Clear Clear [facility] Specific [place] Urine Automated 1.020 1.005 - 1.030 [facility] Color, Urine Dipstick [place](A) Yellow [facility] Reflex to Culture Yes [facility] First Catch Urine 11/20/2023 7:22 AM EDT 11/20/2023 7:54 AM EDT Narrative Resulting Agency Comment Spec In Lab Sherri Esquivel MD URINE ORDERABLES Performing Organization Address City/[facility]/ZIP Co de Phone Number [facility] [place] [address] * POCT Glucose (11/20/2023 6:21 AM EDT) Glucose, POC 100 65 - 199 mg/dL [facility] Comment: Supplemental ranges: <140 mg/dL before meals <180 mg/dL all other times of the day Blood 11/20/2023 6:21 AM EDT 11/20/2023 6:21 AM EDT Chiquita Azul MD POINT OF CARE TEST ORDERABLES [facility] [place] [address] * POCT Glucose (11/20/2023 3:10 AM EDT) Glucose, POC 108 65 - 199 mg/dL [facility] Comment: Supplemental ranges: <140 mg/dL before meals <180 mg/dL all other times of the day Blood 11/20/2023 3:10 AM EDT 11/20/2023 3:10 AM EDT Chiquita Azul MD POINT OF CARE TEST ORDERABLES Performing Organization Address [facility]/ZIP Co de Phone Number [facility] [place] [address] * (ABNORMAL) Differential, Automated (11/20/2023 1:42 AM EDT) Neutrophil % 51.9 % [facility] Neutrophil Absolute 4.48 1.70 - 6.10 x10(3)/mc L [facility] Lymph % 38.6 % [facility] Lymphocytes Abs 3.3(H) 0.9 - 3.2 x10(3)/mc L [facility] Monocyte % 7.5 % [facility] Monocyte Abs 0.6 0.3 - 0.9 x10(3)/mc L [facility] Eos % 1.4 % [facility] Eosinophils Abs 0.1 0.0 - 0.4 x10(3)/ L [facility] Basophil % 0.3 % [facility] Baso Absolute 0.0 0.0 - 0.1 x10(3)/[facility] Immature Gran % 0.30 % [facility] Comment: Immature granulocytes(IG's)percentage and absolute count will include metamyelocytes, myelocytes, and promyelocytes. Blood smears from CBCs yielding IG's will be scanned manually for concordance. If this scan disagrees with the automated IG or if promyelocytes are noted, a manual differential will be performed. Immature Gran Absolute 0.03 0.00 - 0.04 x10(3)/[facility] Blood 11/20/2023 1:42 AM EDT 11/20/2023 1:48 AM EDT Narrative Resulting Agency Comment Spec In Lab Misael Joaquin MD HEMATOLOGY ORDERABLE S Performing Organization Address City/State/[facility] Co de Phone Number [facility] [place] [address] * (ABNORMAL) Hemogram (11/20/2023 1:42 AM EDT) White Blood Cell 8.6 4.0 - 9.5 x10(3)/[facility] Red Blood Cell 3.46(L) 4.00 - 5.21 x10(6)/ L [facility] Hemoglobin 10.9(L) 11.7 - 15.5 g/dL [facility] Hematocrit 32.8(L) 35.7 - 45.8 % [facility] Mean Cell Volume 94.8(H) 82.6 - 94.4 fL [facility] Mean Cell Hemoglobin 31.5 27.1 - 32.0 pg [facility] Mean Cell Hemoglobin Concentration 33.2 31.7 - 35.0 g/dL [facility] Platelet 260 145 - 357 x10(3)/ L [facility] RDW Standard Deviation 43.5 37.0 - 46.0 [facility] RDW coefficient of variation 12.5 11.5 - 14.1 % [facility] Mean Platelet Volume 9.9 7.6 - 12.9 [facility] NRBC% auto 0.0 % [facility] NRBC Absolute 0.000 0.000 - 0.000 x10(3)/mc L [facility] Blood 11/20/2023 1:42 AM EDT 11/20/2023 1:48 AM EDT Narrative Resulting Agency Comment Spec In Lab Misael Joaquin MD HEMATOLOGY ORDERABLE S [facility] [place] [address] * (ABNORMAL) Basic Metabolic Panel (non-fasting) (11/20/2023 1:42 AM EDT) Glucose 76 65 - 199 mg/dL [facility] Comment:Diabetes: >=200 mg/d L plus symptoms Blood Urea Nitrogen 12 8 - 18 mg/dL [facility] Creatinine 0.83 0.70 - 1.20 mg/dL [facility] Carbon Dioxide 18(L) 22 - 31 mmol/L [facility] Anion Gap 11 5 - 15 mmol/L [facility] Calcium 7.9(L) 8.5 - 10.5 mg/dL [facility] Comment:result rechecked-HN Est Glomerular Filtration Rate 83 >=60 mL/min/1. 73 m?? [facility] Comment: This patient's estimated GFR [...] Joaquin MD CHEMISTRY ORDERABLES Performing Organization Address [facility]/ZIP Co de Phone Number [facility] [place] [address] * POCT Glucose (11/19/2023 7:19 PM EDT) Glucose, POC 92 65 - 199 mg/dL [facility] Comment: Supplemental ranges: <140 mg/dL before meals <180 mg/dL all other times of the day Blood 11/19/2023 7:19 PM EDT 11/19/2023 7:19 PM EDT Miguel Benson MD POINT OF CARE TEST O RDERABLES [facility] [place] [address] * (ABNORMAL) Anaerobic Culture (11/19/2023 4:43 PM EDT) Anaerobic Culture Many Parvimonas micra (Peptostreptoc occus micros)(A) [facility] Organism Parvimonas micra (Peptostreptoc occus micros)(A) [facility] Fluid TOPOGRAPHY UNKNOWN / Unknown 11/19/2023 4:43 PM EDT 11/19/2023 7:14 PM EDT Comment:Mandible Narrative Resulting Agency Comment Spec In Lab Dariana Jane MD MICROBIOLOGY - GENER AL ORDERABLES Performing Organization Address [facility] de Phone Number [facility] [place] [address] * (ABNORMAL) Abscess/Wound Aspirate Culture (11/19/2023 4:43 PM EDT) Abscess/Wound Aspirate Culture Moderate Streptococcus milleri, anginosis group Rare normal oropharyngeal shala (A) [facility] Gram Stain Many Neutrophils seen Rare Gram Positive Cocci seen (A) [facility] Organism Streptococcus milleri, anginosis group(A) [facility] Organism Gram Positive Cocci(A) [facility] Fluid TOPOGRAPHY UNKNOWN / Unknown 11/19/2023 4:43 PM EDT 11/19/2023 7:14 PM EDT Comment:Mandible Narrative Resulting Agency Comment Spec In Lab Dariana Jane MD MICROBIOLOGY - GENER AL ORDERABLES Performing Organization Address [facility] Co de Phone Number [facility] [place] [address] * CT Face w Contrast (11/19/2023 12:37 PM EDT) WORKSTATION ID [id number] RAD Anatomical Region Laterality Modality Head Computed [...] have questions please contact the health care support representative that requested your imaging first. ? Electronically signed by: Marilou Perez MD, [facility] ([phone]), at 11/19/2023 1:18 PM Narrative 11/19/2023 1:18 [...] who have questions please contactthe health care support representative that requested your imaging first. Electronically signed by: Marilou Perez MD, [facility]([phone]), at 11/19/2023 1:18 PM Titus South MD IMG CT ORDERABLES * Gold Tube HOLD (11/19/2023 11:15 AM EDT) Gold Hold Sample in lab. [facility] Blood Venous Draw / Unknown 11/19/2023 11:15 AM EDT 11/19/2023 11:26 AM EDT Osorio CARR CHEMISTRY ORDERABLES Performing Organization Address City/[facility]/ZIP Co de Phone Number [facility] [place] [address] * Blue Tube HOLD (11/19/2023 11:15 AM EDT) Blue Hold Sample in lab. [facility] Blood Venous Draw / Unknown 11/19/2023 11:15 AM EDT 11/19/2023 11:26 AM EDT Osorio CARR HEMATOLOGY ORDERABLE S Performing Organization Address City/[facility]/ZIP Co de Phone Number [facility] [place] [address] * (ABNORMAL) Differential, Automated (11/19/2023 11:15 AM EDT) Neutrophil % 74.6 % [facility] Neutrophil Absolute 11.11(H) 1.70 - 6.10 x10(3)/mc L [facility] Lymph % 16.8 % [facility] Lymphocytes Abs 2.5 0.9 - 3.2 x10(3)/[facility] Monocyte % 7.0 % [facility] Monocyte Abs 1.0(H) 0.3 - 0.9 x10(3)/[facility] Eos % 0.9 % [facility] Eosinophils Abs 0.1 0.0 - 0.4 x10(3)/[facility] Basophil % 0.3 % [facility] Baso Absolute 0.0 0.0 - 0.1 x10(3)/[facility] Immature Gran % 0.40 % [facility] Comment: Immature granulocytes(IG's)percentage and absolute count will include metamyelocytes, myelocytes, and promyelocytes. Blood smears from CBCs yielding IG's will be scanned manually for concordance. If this scan disagrees with the automated IG or if promyelocytes are noted, a manual differential will be performed. Immature Gran Absolute 0.06(H) 0.00 - 0.04 x10(3)/[facility] Blood 11/19/2023 11:1 5 AM EDT 11/19/2023 11:25 AM EDT Narrative Resulting Agency Comment Spec In Lab Osorio CARR HEMATOLOGY ORDERABLE S [facility] [place] [address] * (ABNORMAL) Hemogram (11/19/2023 11:15 AM EDT) White Blood Cell 14.9(H) 4.0 - 9.5 x10(3)/[facility] Red Blood Cell 4.03 4.00 - 5.21 x10(6)/[facility] Hemoglobin 12.8 11.7 - 15.5 g/dL [facility] Hematocrit 38.7 35.7 - 45.8 % [facility] Mean Cell Volume 96.0(H) 82.6 - 94.4 fL [facility] Mean Cell Hemoglobin 31.8 27.1 - 32.0 pg [facility] Mean Cell Hemoglobin Concentration 33.1 31.7 - 35.0 g/dL [facility] Platelet 326 145 - 357 x10(3)/mc L [facility] RDW Standard Deviation 44.2 37.0 - 46.0 fL [facility] RDW coefficient of variation 12.5 11.5 - 14.1 % [facility] Mean Platelet Volume 10.0 7.6 - 12.9 fL [facility] NRBC% auto 0.0 % [facility] NRBC Absolute 0.000 0.000 - 0.000 x10(3)/mc L [facility] Blood 11/19/2023 11:1 5 AM EDT 11/19/2023 11:25 AM EDT Narrative Resulting Agency Comment Spec In Lab Osorio CRAR HEMATOLOGY ORDERABLE S [facility] [place] [address] * (ABNORMAL) Basic Metabolic Panel (non-fasting) (11/19/2023 11:15 AM EDT) Glucose 140 65 - 199 mg/dL [facility] Comment:Diabetes: >=200 mg/d L plus symptoms Blood Urea Nitrogen 18 8 - 18 mg/dL [facility] Creatinine 0.90 0.70 - 1.20 mg/dL [facility] Sodium 143 135 - 145 mmol/L [facility] Potassium 3.8 3.5 - 5.0 mmol/L [facility] Comment: Please note: ??Patients with WBC >100,000 may have falsely elevated Potassium levels. ??For accurate Potassium quantification in these patients send serum separator tube (gold top) for subsequent determinations. ??Contact the Clinical Chemistry Laboratory if there are any questions. Chloride 111(H) 98 - 107 mmol/L [facility] Carbon Dioxide 20(L) 22 - 31 mmol/L [facility] Anion Gap 12 5 - 15 mmol/L [facility] Calcium 9.5 8.5 - 10.5 mg/dL [facility] Est Glomerular Filtration Rate 75 >=60 mL/min/1. 73 m?? [facility] Comment: This patient's estimated GFR [...] MD CHEMISTRY ORDERAB LES Performing Organization Address City/State/[facility] Co de Phone Number [facility] [place] [address] documented in this encounter Visit Diagnoses Diagnosis [...] over 4 Hours, Warning Vesicant/Irritant Medication Per marketing communications associate labeling, do not administer or Y-site with [...] over 0.5 Hours, Warning Vesicant/Irritant Medication Per marketing communications associate labeling, do not administer or Y-site with [...] over 4 Hours, Warning Vesicant/Irritant Medication Per marketing communications associate labeling, do not administer or Y-site with [...] over 0.5 Hours, Warning Vesicant/Irritant Medication Per marketing communications associate labeling, do not administer or Y-site with [...] Routine documented in this encounter Care Teams Final Assembly Worker Relationship Specialty Start Date End Date Unknown None PCP - General 11/20/23 11/30/23 documented as of this encounter
--- OUTSIDE RECORDS SUMMARY | 2024-07-08 18:51 | XMS_ITS | Encounter Summary ---
Author Organization [facility] [place] [address] Care Team Providers Care Protection Consultant Name Role Phone Yamile De Leon STRUCTURAL ANALYSIS ENGINEER Primary Care Provider [phone] Reason for Visit * Reason Comments Foot Pain ORIF METATARSAL FX, EACH (WRVU 7.44) (Bilateral DOS 09/16/2018 Encounter Details Date Type Department Care Team (Late st Contact Info) Description 11/08/2018 2:30 PM EDT Office [place] [address] Cast discomfort Social History Tobacco Use Types [...] 3.24) performed by Aparna Reed MD at [facility] MAIN OR ??? PRO OPEN TREATMENT METATARSAL FRACTURE EACH Bilateral 09/16/2018 ORIF METATARSAL FX, EACH (WRVU 7.44) performed by Aparna Reed MD at [facility] MAIN OR ??? PRO OPEN TREATMENT TARSOMETATARSAL JOINT DISLOCATION Right 09/16/2018 OPEN TREAMENT TARSOMETATARSAL JOINT DISLOCATION (WRVU 10.7) performed by Aparna Reed MD at [facility] MAIN OR ??? PRO OPEN TX FRACTURE GREAT TOE/PHALANX/PHALANGES Right 09/16/2018 ORIF GREAT TOE (WRVU 7.44) performed by Aparna Reed MD at [facility] MAIN OR ??? PRO PERCUT TREAT METATARSAL FX Left 09/16/2018 PERCUTANEOUS PINNING, METATARSAL FX, EA. (WRVU 3.6) performed by Aparna Reed MD at [facility] MAIN OR ??? PRO PERCUT TREAT TAR-METATAR FOOT DISLOC Right 09/16/2018 PERCUTANEOUS PINNING, TARSOMETATARSAL JOINT DISLOCATION (WRVU 5.09) performed by Aparna Reed MD at [facility] MAIN OR ??? SHOULDER ARTHROSCOPY Bilateral [...] file Gets together: Not on file Attends [employer] service: Not on file Active member of [...] ?? Chad Campo MD Orthopaedic Surgery Pager: [phone] ? * Leta Mitchell Jessica - 11/08/2018 [...] aftercare documented in this encounter Care Teams Protection Consultant Relationship Specialty Start Date End Date Yamile De Leon APRN PCP - General Family Medicine 10/01/18 11/19/23 documented as of this encounter
--- OUTSIDE RECORDS SUMMARY | 2024-07-08 18:51 | XMS_ITS | Encounter Summary ---
Author Organization [facility] [place] [address] Care Team Providers Care Theater Technician Name Role Phone None Primary Care Provider Unavailabl e Encounter Details Date Type Department Care Team (Late st Contact Info) Description 12/01/2023 3:44 PM EDT Anesthesia Event [place] [id number] Delvin Crystal MD Novak, Nathaniel, MD [facility] DR [place] [address] Anesthesia Record Procedure Summary Procedure Name Responsible [...] e alcohol) [facility] Utilities Answer Date Recorded In the past 12 months has [employer], gas, oil, or water [employer] threatened to shut off services in your [...] time in the past 12 m [facility], were you homeless or living in [...] Procedure Summary Date: 12/01/23 Room / Location: [address] MAIN OR Anesthesia Start: 1543 Anesthesia Stop: 1708 Procedure: EXCISION BENIGN TUMOR OR CYST, MANDIBLE (WRVU 4.91) (Midline: Face) Diagnosis: Osteomyelitis of other site, unspecified type (Erosive lesion of the mandible) Surgeons: Fidel Naranjo MD Responsible Provider: Delvin Crystal MD Anesthesia Type: general ASA Status: 3 All Anesthesia Providers: Anesthesiologist: Delvin Crystal MD Load Tester: Kyler Prieto DO; Sudhir Canales MD Vitals [...] performed by Aparna Reed MD at [facility] MAIN OR ??? PRO OPEN TREATMENT METATARSAL FRACTURE EACH Bilateral 09/16/2018 ORIF METATARSAL FX, EACH (WRVU 7.44) performed by Aparna Reed MD at [facility] MAIN OR ??? PRO OPEN TREATMENT TARSOMETATARSAL JOINT DISLOCATION Right 09/16/2018 OPEN TREAMENT TARSOMETATARSAL JOINT DISLOCATION (WRVU 10.7) performed by Aparna Reed MD at [facility] MAIN OR ??? PRO OPEN TX FRACTURE GREAT TOE/PHALANX/PHALANGES Right 09/16/2018 ORIF GREAT TOE (WRVU 7.44) performed by Aparna Reed MD at [facility] MAIN OR ??? PRO PERCUT TREAT METATARSAL FX Left 09/16/2018 PERCUTANEOUS PINNING, METATARSAL FX, EA. (WRVU 3.6) performed by Aparna Reed MD at [facility] MAIN OR ??? PRO PERCUT TREAT TAR-METATAR FOOT DISLOC Right 09/16/2018 PERCUTANEOUS PINNING, TARSOMETATARSAL JOINT DISLOCATION (WRVU 5.09) performed by Aparna Reed MD at [facility] MAIN OR ??? SHOULDER ARTHROSCOPY [...] Assessment: unlabored breathing Dental Assessment: (+) edentulous [facility] Assessment: IV access: Peripheral line [...] mg documented in this encounter Care Teams Theater Technician Relationship Specialty Start Date End Date None None PCP - General 12/01/23 documented as of this encounter
--- OUTSIDE RECORDS SUMMARY | 2024-07-08 18:51 | XMS_ITS | Encounter Summary ---
Author Organization [facility] [place] [address] Care Team Providers Care Towel Weaver Name Role Phone Yamile De Leon CARLOS Primary Care Provider [phone] Reason for Referral * Consultation (Routine) - Closed Specialty Diagnoses / Procedures Referred By Bruce t Referred To Contact Dermatology Diagnoses Breast lesion Whitney Vanegas PA [address] [place] [address] [facility] [address] [place] [address] Referral ID Status Reason Start Date Expiration Date V isits Requested Visits Authorized [id number] Closed Consult, Test & Treat PCP Updated and/or Approved 01/02/2022 01/02/2023 12 12 Encounter Details Date Type Department Care Team (Late st Contact Info) Description 01/02/2022 Transcribe Orders eDH Incoming Referrals [phone] Whitney Vanegas PA [address] [place] [address] Breast lesion Social History Tobacco Use Types [...] disorder documented in this encounter Care Teams Towel Weaver Relationship Specialty Start Date End Date Yamile De Leon APRN PCP - General Family Medicine 10/01/18 11/19/23 documented as of this encounter
--- OUTSIDE RECORDS SUMMARY | 2024-07-08 18:51 | XMS_ITS | Encounter Summary ---
Author Organization [facility] Address [facility] [place] [address] Care Team Providers Care Veneer Sorter Name Role Phone None Primary Care Provider Unavailabl e Encounter Details Date Type Department Care Team (Late st Contact Info) Description 11/23/2023 Orders Only Infectious Disease at [facility] [place] [address] Juan Yo MD [facility] [place] [address] 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; correction current use of antibiotics Social History Tobacco Use Types Packs/Day Years Used Date Smoking Tobacco: Every Day Cigarettes 1 28 Smokeless Tobacco: Never Comments:Currently using kalia otine inhaler to help herself quit (11/08/18) Alcohol Use Standard Drinks/Week Comments Not Currently 0 (1 standard drink = 0.6 oz pur e alcohol) [facility] Utilities Answer Date Recorded In the past 12 months has e [employer], gas, oil, or water [employer] threatened to shut off services in your [...] time in the past 12 m [facility], were you homeless or living in a [...] Guidance (IV Team) (11/25/2023 9:58 AM EDT) Mevvy Signature WORKSTATION ID [id number] RAD Anatomical Region Laterality Modality N/A Radio [...] questions please contact the health home care assistant that requested your imaging first. ? Electronically signed by: Blaze Don MD, [facility] ??([phone]), at 11/25/2023 11:40 AM Narrative 11/25/2023 11:40 [...] have questions please contactthe health home care assistant that requested your imaging first. 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
--- OUTSIDE RECORDS SUMMARY | 2024-07-08 18:51 | XMS_ITS | Encounter Summary ---
Author Organization [facility] Address [facility] [place] [address] Care Team Providers Care Chain Hooker Name Role Phone Unknown Primary Care Provider Unavailabl e Encounter Details Date Type Department Care Team (Late st Contact Info) Description 11/23/2023 Orders Only [place] [address] Juan Yo MD [facility] [place] [address] Social History Tobacco Use Types Packs/Day Years Used Date Smoking Tobacco: Every Day Cigarettes 1 28 Smokeless Tobacco: Never Comments:Currently using kalia otine inhaler to help herself quit (11/08/18) Alcohol Use Standard Drinks/Week Comments Not Currently 0 (1 standard drink = 0.6 oz pur e alcohol) [facility] Utilities Answer Date Recorded In the [...] on filedocumented in this encounter Care Teams Chain Hooker Relationship Specialty Start Date End Date Unknown None PCP - General 11/20/23 11/30/23 documented as of this encounter
--- OUTSIDE RECORDS SUMMARY | 2024-07-08 18:51 | XMS_ITS | Encounter Summary ---
Author Organization [facility] Address [facility] [place] [address] Care Team Providers Care Furnace Attendant Name Role Phone Unknown Primary Care Provider Unavailabl e Encounter Details Date Type Department Care Team (Latest Contact Info) Description 11/25/2023 9:21 AM EDT - 11/25/2023 11:49 AM EDT Hospital Encounter XRay at [address] [place] [address] Juan Yo MD [facility] [place] [address] 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; extermination supervisor current use of antibiotics Discharge Disposition: Home [...] Recorded In the past 12 months has [employer], [employer], oil, or water [employer] threatened to shut off services in your [...] 1 gram injection solutionIndications: 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,extermination supervisor current use of antibiotics Inject 2 g into the vein daily for 36 days. Estimated EOT 12/31/2023 72 each 11/25/2023 12/30/2023 sodium chloride 0.9 %, flush, (BD PosiFlush Normal Saline 0.9) SyringeIndications:O steoma of mandibular condyle,extermination supervisor current use of antibiotics Inject 10 mLs [...] porcine, 10 unit/mL SolutionIndications: 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,senior living current use of antibiotics Inject 3 mLs [...] 2 mg Recon SolnIndications:Oste cris of mandibular condyle,extermination supervisor current use of antibiotics Instill reconstituted alteplase [...] to the planned procedure. Hand Hygiene: The injection maintenance technician did perform hand hygiene prior to line insertion. Catheter type: PICC Lot number: [id number] Procedure Technique: Skin was prepped with chlorhexidine. 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 ? Electronically signed by: Blaze Don MD, [facility] ??([phone]), at 11/25/2023 11:40 AM Narrative 11/25/2023 11:40 [...] who have questions please contactthe health care connector that requested your imaging first. Electronically signed by: Blaze Don MD, [facility]([phone]), at 11/25/2023 11:40 AM Juan Yo MD IMG FLUORO ORDERABL ES documented in this encounter Visit Diagnoses Diagnosis 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 senior living current use of antibiotics Encounter for long-term (current) use of antibiotics documented in this encounter Care Teams Furnace Attendant Relationship Specialty Start Date End Date Unknown None PCP - General 11/20/23 11/30/23 documented as of this encounter
--- OUTSIDE RECORDS SUMMARY | 2024-07-08 18:51 | XMS_ITS | Encounter Summary ---
Author Organization [facility] [address] Care Team Providers Care Operational Review Sergeant Name Role Phone Yamile De Leon APRN Primary Care Provider [phone] Reason for Visit * Reason Onset Date Comments Other 02/03/2019 Home Health Encounter Details Date Type Department Care Team (Late st Contact Info) Description 02/03/2019 [place] [phone] Crista Warner RN Other (Home Health) Social [...] signed by provider and faxed back to [facility] ( ). Form in Scan Doc. documented in this encounter Plan of Treatment Not on file documented as of this encounter Visit Diagnoses Not on filedocumented in this encounter Care Teams Operational Review Sergeant Relationship Specialty Start Date End Date Yamile De Leon APRN PCP - General Family Medicine 10/01/18 11/19/23 documented as of this encounter
--- OUTSIDE RECORDS SUMMARY | 2024-07-08 18:51 | XMS_ITS | Encounter Summary ---
Author Organization [facility] Address [facility] [place] [address] Care Team Providers Care Light Bulb Assembler Name Role Phone Unknown Primary Care Provider Unavailabl e Encounter Details Date Type Department Care Team (Late st Contact Info) Description 11/23/2023 Notes Only Infectious Disease [facility] [place] [address] Stephenie Moya MD [facility] [place] [address] Social History Tobacco Use Types Packs/Day Years Used Date Smoking Tobacco: Every Day Cigarettes 1 28 Smokeless Tobacco: Never Comments:Currently using kalia otine inhaler to help herself quit (11/08/18) Alcohol Use Standard Drinks/Week Comments Not Currently 0 (1 standard drink = 0.6 oz pur e alcohol) [facility] Utilities Answer Date Recorded In the past [...] in a fdc (including now)? No 11/20/2023 IPV Inpatient Questions [...] on filedocumented in this encounter Care Teams Light Bulb Assembler Relationship Specialty Start Date End Date Unknown None PCP - General 11/20/23 11/30/23 documented as of this encounter
--- OUTSIDE RECORDS SUMMARY | 2024-07-08 18:51 | XMS_ITS | Encounter Summary ---
Author Organization [facility] Address [facility] [place] [address] Care Team Providers Care Primary School Teacher Name Role Phone Yamile De Leon APRN Primary Care Provider [phone] Encounter Details Date Type Department Care Team (Late st Contact Info) Description 03/30/2019 [place] [phone] Javad Urban MD [facility] DR ORTHOPAEDIC SURGERY [place] [id number] Social History Tobacco Use Types Packs/Day Years [...] care. Will fax signed paperwork back to [phone]. documented in this encounter Plan of Treatment Not on file documented as of this encounter Visit Diagnoses Not on filedocumented in this encounter Care Teams Primary School Teacher Relationship Specialty Start Date End Date Yamile De Leon APRN PCP - General Family Medicine 10/01/18 11/19/23 documented as of this encounter
--- OUTSIDE RECORDS SUMMARY | 2024-07-08 18:51 | XMS_ITS | Encounter Summary ---
Author Organization [facility] Address [facility] [place] [address] Care Team Providers Care Manager Name Role Phone Unknown Primary Care Provider Unavailabl e Encounter Details Date Type Department Care Team (Late st Contact Info) Description 11/24/2023 Telephone [place] [address] Andra Grady Social History Tobacco Use Types Packs/Day Years Used Date Smoking Tobacco: Every Day Cigarettes 1 Smokeless Tobacco: Never Comments:Currently using kalia otine inhaler to help herself quit (11/08/18) Alcohol Use Standard Drinks/Week Comments Not Currently 0 (1 standard drink = 0.6 oz pur e alcohol) [facility] Utilities Answer Date Recorded In the past 12 months has th e [employer], gas, oil, or water [employer] threatened to shut off services in your [...] filedocumented in this encounter Care Teams Manager Relationship Specialty Start Date End Date Unknown None PCP - General 11/20/23 11/30/23 documented as of this encounter
--- OUTSIDE RECORDS SUMMARY | 2024-07-08 18:51 | XMS_ITS | Encounter Summary ---
Author Organization [facility] [place] [address] Care Team Providers Care Manager Workers Compensation Name Role Phone None Primary Care Provider Unavailabl e Encounter Details Date Type Department Care Team (Late st Contact Info) Description 12/08/2023 Telephone [place] [phone] Alea Bailey APRN [facility] [place] [address] Social History Tobacco Use Types Packs/Day Years Used Date Smoking Tobacco: Every Day Cigarettes 1 28 Smokeless Tobacco: Never Comments:Currently using kalia otine inhaler to help herself quit (11/08/18) Alcohol Use Standard Drinks/Week Comments Not Currently 0 (1 standard drink = 0.6 oz pur e alcohol) [facility] Utilities Answer Date Recorded In [...] filedocumented in this encounter Care Teams Manager Workers Compensation Relationship Specialty Start Date End Date None None PCP - General 12/01/23 documented as of this encounter
--- OUTSIDE RECORDS SUMMARY | 2024-07-08 18:51 | XMS_ITS | Encounter Summary ---
Author Organization [facility] Address [facility] [place] [address] Care Team Providers Care Precision Instrument And Tool Maker Name Role Phone Yamile De Leon APRN Primary Care Provider [phone] Reason for Visit * Reason Comments Medication Refill Encounter Details Date Type Department Care Team (Late st Contact Info) Description 07/13/2022 Refill Dermatology at [facility] [address] [place] [address] Charlie Bowser MD [facility] [place] [address] Prurigo nodularis Social History Tobacco Use Types [...] chronicus documented in this encounter Care Teams Precision Instrument And Tool Maker Relationship Specialty Start Date End Date Yamile De Leon APRN PCP - General Family Medicine 10/01/18 11/19/23 documented as of this encounter
--- OUTSIDE RECORDS SUMMARY | 2024-07-08 18:51 | XMS_ITS | Encounter Summary ---
Author Organization [facility] Address [facility] [place] [address] Care Team Providers Care Accounts Receivable Processor Name Role Phone Unknown Primary Care Provider Unavailabl e Reason for Visit * Reason Onset Date Comments Follow-up 11/23/2023 F/U to schedule outpatient OPAT Encounter Details Date Type Department Care Team (Late st Contact Info) Description 11/23/2023 Telephone Infectious Disease at [facility] [place] [phone] Cindy Lizama, RN Follow-up (F/U to schedule [...] In the past 12 months has e [employer], gas, oil, or water [employer] threatened to shut off services in your [...] in this encounter Care Teams Accounts Receivable Processor Relationship Specialty Start Date End Date Unknown None PCP - General 11/20/23 11/30/23 documented as of this encounter
--- OUTSIDE RECORDS SUMMARY | 2024-07-08 18:51 | XMS_ITS | Encounter Summary ---
Author Organization [facility] [place] [address] Care Team Providers Care Bean Dumper Name Role Phone Unknown Primary Care Provider Unavailabl e Reason for Visit * Treatment/Therapy Plan Authorization (Routine) - Authorized Specialty Diagnoses / Procedures Referred By Contac t Referred To Contact Diagnoses Osteomyelitis, unspecified site, unspecified type Procedures TC CEFTRIAXONE, 250MG, INJECTION (ROCEPHIN) Juan Yo MD [facility] [place] [address] [facility] Med Infusion [address] [place] [phone] Referral ID Status Reason Start Date Expiration Date V isits Requested Visits Authorized [id number] Authorized 11/23/2023 11/22/2024 99 99 Encounter Details Date Type Department Care Team (Latest Contact Info) Description 11/25/2023 11:50 AM EDT - 11/25/2023 11:59 PM EDT Hospital En[place] [address] Osteomyelitis, unspecified site, unspecified type Discharge Disposition: Home Social History Tobacco Use Types Packs/Day Years Used Date Smoking Tobacco: Every Day Cigarettes 06 21 Smokeless Tobacco: Never Comments:Currently using kalia otine inhaler to help herself quit (11/08/18) Alcohol Use Standard Drinks/Week Comments Not Currently 0 (1 standard drink = 0.6 oz pur e alcohol) [facility] Utilities Answer Date Recorded In the past 12 months has [employer], gas, oil, or water company threatened [...] any time in the past 12 m [facility], were you homeless or living in [...] gram injection solutionIndications: 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 Estimated EOT 12/31/2023 72 each 11/25/2023 12/30/2023 sodium chloride 0.9 %, flush, (BD PosiFlush Normal Saline 0.9) SyringeIndications:O steoma of mandibular condyle,halfway current use of antibiotics Inject 10 mLs into the vein as needed (For Line Patency - See Instructions). 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 ASSESSMENT: Awake and alert - tolerated treatment well. PLAN: [facility] nurse Miguel here and provided teaching [...] hr documented in this encounter Care Teams Bean Dumper Relationship Specialty Start Date End Date Unknown None PCP - General 11/20/23 11/30/23 documented as of this encounter
--- OUTSIDE RECORDS SUMMARY | 2024-07-08 18:51 | XMS_ITS | Encounter Summary ---
Author Organization [facility] Address [facility] [place] [address] Care Team Providers Care Tooling Manager Name Role Phone None Primary Care Provider Unavailabl e Encounter Details Date Type Department Care Team (Latest Contact Info) Description 12/01/2023 2:08 PM EDT - 12/01/2023 6:33 PM EDT Hospital Encounter [place] [phone] Fidel Naranjo MD [facility] [place] [address] Osteomyelitis of other site, unspecified type Discharge [...] 0.6 oz pur e alcohol) [facility] Utilities Answer Date Recorded In the past 12 months has e [employer], gas, oil, or water [employer] threatened to shut off services in your [...] time in the past 12 m [facility], were you homeless or living in a [...] your PICC line please call Infectious Disease: [phone]. Pain Control - use acetaminophen (Tylenol) and/or [...] get Peridex on the $4 list at [facility]. Activity: A good rule of thumb [...] Fahrenheit -Bleeding Contact: -You can reach the [facility] [place] [place] clinic at [phone] for appointment questions. Follow Up: You will need to follow up with Dr. Naranjo. This appointment has been requested. You will be notified once it is scheduled, if you do not already see it below. If you do not hear from us in a timely manner, please call [phone] to receive your date and time. Currently Scheduled Appointments: Future Appointments and Orders Future Appointments and Orders Future Appointments Provider Department Dept Phone 12/08/2023 3:00 PM Alea Bailey APRN Infectious Disease at [facility] Arrive at: Home [phone] Please do not come in for this visit. Your provider will call you at the number you provided. 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 Plan will be to debride and removed anterior mandibular lesion. Fidel Naranjo MD documented in this encounter Miscellaneous Notes * Op Note - Fidel Naranjo MD - 12/01/2023 4:10 PM EDT [facility] Operative Note Patient Name: Jenae La : [id number] MR#: [id number] Case Date: 12/01/2023 Preop Diagnosis: Cystic erosive [...] Jane MD, PGY4 12/01/2023 4:58 PM Pager #[phone] I was present for the entire procedure [...] 4:29 PM EDT Excision, Benign Tumor, Mandible ([id number]) Yes 12/01/2023 3:43 PM EDT Osteomyelitis of [...] - GENER AL ORDERABLES Performing Organization Address [facility] de Phone Number [facility] [place] [address] * Tissue culture (12/01/2023 4:30 PM EDT) Tissue Culture No growth [facility] Gram Stain Few Neutrophils seen No microorganisms seen. [facility] Mandible 12/01/2023 4:30 PM EDT 12/01/2023 5:55 PM EDT Comment:Right anterior camacho bular lesion Narrative Resulting Agency Comment Spec In Lab Fidel Naranjo MD MICROBIOLOGY - GENER AL ORDERABLES Performing Organization Address [facility] de Phone Number [facility] [place] [address] * Specimen to Pathology (12/01/2023 4:30 PM EDT) AP Specimen 12/01/2023 4:30 PM EDT 12/01/2023 4:30 PM EDT Narrative [facility] - 12/01/2023 4:30 PM EDT Specimen requisition ordered. ??Separate Pathology report to follow Fidel Naranjo MD PATHOLOGY/CYTOLOGY O RDERABLES Performing Organization Address [facility] [place] [address] * Surgical Pathology Report (12/01/2023 4:29 PM EDT) Final Diagnosis [id number] ? Location: [facility]; IN41; A The signing pathologist has (i) examined the relevant preparation(s) for the specimen(s) and (ii) rendered or confirmed the diagnosis(es). . ?Surgical Pathology DIAGNOSIS A - Right anterior mandibular lesion, excision: - Reactive gingival-type mucosa with granulation tissue. - Osteomyelitis. Electronically signed by: ?Donny Godwin MD Verified: ??12/08/2023 15:59 ??Pathologist Performed at: ??-[facility] Dept. of Pathology, [place] [address] Unclaimed Property Officer: Iman Sutton MD, AP, ??CLIA Certificate: [id number] DISCUSSION Multiple additional sections were examined. No [...] O RDERABLES [facility] [place] [address] documented in this encounter Visit Diagnoses Diagnosis [...] Routine documented in this encounter Care Teams Tooling Manager Relationship Specialty Start Date End Date None None PCP - General 12/01/23 documented as of this encounter
--- OUTSIDE RECORDS SUMMARY | 2024-07-08 18:51 | XMS_ITS | Encounter Summary ---
Author Organization [facility] Address [facility] [place] [address] Care Team Providers Care Fig Bar Machine Operator Name Role Phone Yamile De Leon CARLOS Primary Care Provider [phone] Reason for Visit * Consultation (Routine) - Closed Specialty Diagnoses / Procedures Referred By Bruce galo Referred To Contact Dermatology Diagnoses Breast lesion Whitney Vanegas PA [address] [place] [address] [facility] Dermatology [address] [place] [address] Referral ID Status Reason Start Date Expiration Date V isits Requested Visits Authorized [id number] Closed Consult, Test & Treat PCP Updated and/or Approved 01/02/2022 01/02/2023 12 12 Encounter Details Date Type Department Care Team (Late st Contact Info) Description 06/24/2022 4:00 PM EST Office Visit Dermatology at [facility] [address] [place] [phone] Charlie Bowser MD [facility] [place] [address] Prurigo nodularis (Primary Dx) Social History Tobacco [...] prurigo nodularis follow up []Note routed to sales secretary []Recall placed in scheduling system [x]Appointment scheduled at checkout Scribe attestation: TARI Felton has performed the documentation for this encounter in thepresence of and acting as a scribe for Charlie Bowser MD. I performed the above scribed service and agree with the accuracy of the documentation in this encounter. Reviewed and signed by: Charlie Bowser MD Dermatology [facility] Patient seen and evaluated with staff grain manager: Kirsten Lantigua MD Department of Dermatology [facility] * Kirsten Lantigua MD - 06/24/2022 [...] chronicus documented in this encounter Care Teams Fig Bar Machine Operator Relationship Specialty Start Date End Date Yamile De Leon APRN PCP - General Family Medicine 10/01/18 11/19/23 documented as of this encounter
--- OUTSIDE RECORDS SUMMARY | 2024-07-08 18:51 | XMS_ITS | Encounter Summary ---
Author Organization [facility] Address [facility] [place] [address] Care Team Providers Care Home Security Professional Name Role Phone Yamile De Leon APRN Primary Care Provider [phone] Encounter Details Date Type Department Care Team (Late st Contact Info) Description 11/22/2018 Ancillary Procedure Radiology Library at [facility] [place] [address] Aparna Reed MD [facility] [place] [address] Social History Tobacco Use Types Packs/Day Years [...] MD IMG FILM LIBRARY ORD ERABLES [facility] [place], [place] documented in this encounter Visit Diagnoses Not on filedocumented in this encounter Care Teams Home Security Professional Relationship Specialty Start Date End Date Yamile De Leon APRN PCP - General Family Medicine 10/01/18 11/19/23 documented as of this encounter
--- OUTSIDE RECORDS SUMMARY | 2024-07-08 18:51 | XMS_ITS | Encounter Summary ---
Author Organization [facility] Address [facility] [place] [address] Care Team Providers Care Procedure Manager Name Role Phone Unknown Primary Care Provider Unavailabl e Encounter Details Date Type Department Care Team (Late st Contact Info) Description 11/25/2023 Notes Only Infectious Disease at [facility] [place] [address] Cindy Lizama RN Social History Tobacco Use Types Packs/Day Years Used Date Smoking Tobacco: Every Day Cigarettes 1 28 Smokeless Tobacco: Never Comments:Currently using kalia otine inhaler to help herself quit (11/08/18) Alcohol Use Standard Drinks/Week Comments Not Currently 0 (1 standard drink = 0.6 oz pur e alcohol) [facility] Utilities Answer Date Recorded In [...] time in the past [address] [facility], were you homeless or living in a halfway (including now)? No 11/20/2023 [facility] Inpatient Questions Answer Date Recorded Does [...] First infusion at [facility]-D Infusion Suite at [facility] Labs to be drawn at [facility] today (11/24) and at [facility] Infusion Suite each Thursday at 1300. Orders/referrals completed: PICC, OPAT, labs, therapy plan, LIVESTOCK COMMISSION AGENT referral Referrals made to: LIVESTOCK COMMISSION AGENT: N/A Infusion vendor: [facility] Infusion suite: [facility] ID physician and patient aware of [...] to contact. Reviewed roles and responsibilities of LIVESTOCK COMMISSION AGENT and infusion vendor. Contact information for ID team/clinic, LIVESTOCK COMMISSION AGENT and infusion vendor given to pt. Discussed [...] Start date: 11/19/2023 Anticipated stop date: 12/31/2023 LIVESTOCK COMMISSION AGENT: N/A Pt scheduled to go to [facility] Infusion Suite for weekly labs and [...] Labs: Q Thursday: CBC/Diff, CMP at [facility] Labs: Q Thursday Inflammatory CRP at [facility] Attending Responsible for IV Antimicrobials: Juan Bennett MD ID F/U appts to be scheduled documented in this encounter Plan of Treatment Not on file documented as of this encounter Visit Diagnoses Not on filedocumented in this encounter Care Teams Procedure Manager Relationship Specialty Start Date End Date Unknown None PCP - General 11/20/23 11/30/23 documented as of this encounter
--- OUTSIDE RECORDS SUMMARY | 2024-07-08 18:51 | XMS_ITS | Encounter Summary ---
Author Organization [facility] Address [facility] [place] [address] Care Team Providers Care Case Preparer And Liner Name Role Phone Unknown Primary Care Provider [...] on filedocumented in this encounter Care Teams Case Preparer And Liner Relationship Specialty Start Date End Date Unknown None PCP - General 11/20/23 11/30/23 documented as of this encounter
--- OUTSIDE RECORDS SUMMARY | 2024-07-08 18:51 | XMS_ITS | Encounter Summary ---
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 Juan Yo MD [facility] [place] [address] [facility] Infectious [place] [address] [place] [address] Referral ID Status Reason Start Date Expiration Date V isits Requested Visits Authorized [id number] Closed Assume Subset of Care 11/24/2023 11/23/2024 1 1 Encounter Details Date Type Department Care Team (Late st Contact Info) Description 11/23/2023 Orders Only [place] [phone] Juan Yo MD [facility] [place] [address] 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; 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 Social History Tobacco Use Types Packs/Day Years Used Date Smoking Tobacco: Every Day Cigarettes 1 28 Smokeless Tobacco: Never Comments:Currently using kalia otine inhaler to help herself quit (11/08/18) Alcohol Use Standard Drinks/Week Comments Not Currently 0 (1 standard drink = 0.6 oz pur e alcohol) [facility] Utilities Answer Date Recorded In the [...] Outpatient Referral Routine 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 nursing home current use of antibiotics Ordered: 11/24/2023 documented as of this encounter Visit Diagnoses Diagnosis 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
--- OUTSIDE RECORDS SUMMARY | 2024-07-08 18:51 | XMS_ITS | Encounter Summary ---
Author Organization [facility] Address [facility] [place] [address] Care Team Providers Care Fire Alarm Installer Name Role Phone None Primary Care Provider Unavailabl e Encounter Details Date Type Department Care Team (Late st Contact Info) Description 12/01/2023 3:38 PM EDT - 12/01/2023 5:23 PM EDT Surgery [place] [phone] Fidel Naranjo MD [facility] [place] [address] EXCISION BENIGN TUMOR OR CYST, MANDIBLE (WRVU [...] = 0.6 oz pur e alcohol) [facility] Utilities Answer Date Recorded In the past 12 months has e [employer], gas, oil, or water [employer] threatened to shut off services in your [...] your PICC line please call Infectious Disease: [phone]. Pain Control - use acetaminophen (Tylenol) and/or [...] get Peridex on the $4 list at [facility]. Activity: A good rule of thumb [...] [facility] clinic at [phone] for appointment questions. Follow Up: You will need to follow up with Dr. Naranjo. This appointment has been requested. You will be notified once it is scheduled, if you do not already see it below. If you do not hear from us in a timely manner, please call [phone] to receive your date and time. Currently Scheduled Appointments: Future Appointments and Orders Future Appointments and Orders Future Appointments Provider Department Dept Phone 12/08/2023 3:00 PM Alea Bailey APRN Infectious Disease at [facility] Arrive at: Home [phone] Please do not come in for this visit. Your provider will call you at the number you provided. 12/28/2023 2:00 PM Stephenie Moya MD Infectious Disease at [facility] Arrive at: [employer] Area [phone] documented in this encounter Medications at Time [...] 1 gram injection solutionIndications: 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,custodial current use of antibiotics Inject 2 g into the vein daily for 36 days. 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 May repeat x1 per occlusion 1 each 11/24/2023 12/30/2023 amoxicillin-clavulan ate (Augmentin) 875-125 mg tablet Take 1 tablet by mouth 2 times daily for 14 days. 28 tablet 11/21/2023 12/05/2023 documented as of this encounter H&P Notes * iFdel Naranjo MD - 12/01/2023 2:28 PM EDT [...] Jane MD, PGY4 12/01/2023 2:28 PM Pager #[phone] ENT Team Pager: [phone] Evaluated patient at bedside and agree with note above. Plan will be to debride and removed anterior mandibular lesion. Fidel Naranjo MD documented in this encounter Miscellaneous Notes * Op Note - Fidel Naranjo MD - 12/01/2023 4:10 PM EDT [facility] Operative Note Patient Name: Jenae La : [id number] MR#: [id number] Case Date: 12/01/2023 Preop Diagnosis: Cystic erosive [...] Jane MD, PGY4 12/01/2023 4:58 PM Pager #[phone] I was present for the entire procedure [...] 4:29 PM EDT Excision, Benign Tumor, Mandible ([id number]) Yes 12/01/2023 3:43 PM EDT Osteomyelitis of other site, unspecified type EXCISION BENIGN TUMOR OR CYST,MANDIBLE Routine 12/01/2023 2:44 PM EDT Osteomyelitis of other site, unspecified type documented in this encounter Results * Anaerobic Culture (12/01/2023 4:30 PM EDT) Anaerobic Culture No anaerobic organisms isolated [facility] Mandible 12/01/2023 4:30 PM EDT 12/01/2023 5:55 PM EDT Comment:Right anterior camacho bular lesion Narrative Resulting Agency Comment Spec In Lab Fidel Naranjo MD MICROBIOLOGY - GENER AL ORDERABLES Performing Organization Address [facility] de Phone Number [facility] [place] [address] * Tissue culture (12/01/2023 4:30 PM EDT) Tissue Culture No growth [facility] Gram Stain Few Neutrophils seen No microorganisms seen. [facility] Mandible 12/01/2023 4:30 PM EDT 12/01/2023 5:55 PM EDT Comment:Right anterior camacho bular lesion Narrative Resulting Agency Comment Spec In Lab Fidel Naranjo MD MICROBIOLOGY - GENER AL ORDERABLES Performing Organization Address [facility] de Phone Number [facility] [place] [address] * Specimen to Pathology (12/01/2023 4:30 PM EDT) AP Specimen 12/01/2023 4:30 PM EDT 12/01/2023 4:[address] [facility] - 12/01/2023 4:30 PM EDT Specimen requisition ordered. ??Separate Pathology report to follow Fidel Naranjo MD PATHOLOGY/CYTOLOGY O RDERABLES Performing Organization Address [facility] [place] [address] * Surgical Pathology Report (12/01/2023 4:29 PM EDT) Final Diagnosis [id number] ? Location: [facility]; [place]; A The signing pathologist has (i) examined the relevant preparation(s) for the specimen(s) and (ii) rendered or confirmed the diagnosis(es). . ?Surgical Pathology DIAGNOSIS A - Right anterior mandibular lesion, excision: - Reactive gingival-type mucosa with granulation tissue. - Osteomyelitis. Electronically signed by: ?Donny Godwin MD Verified: ??12/08/2023 15:59 ??Pathologist Performed at: ??-[facility] Dept. of Pathology, [place] [address] Machinery Mechanic: Iman Sutton MD, AP, ??CLIA Certificate: [id number] DISCUSSION Multiple additional sections were examined. No [...] labeled A1-A3. ??sns 12/08/2023 3:[address] [facility] SOFT TISSUE MASS / Unknown 12/01/2023 4:29 PM EDT 12/01/2023 4:29 PM EDT Fidel Naranjo MD PATHOLOGY/CYTOLOGY O RDERABLES [facility] [place] [phone] documented in this encounter Visit Diagnoses Diagnosis [...] Routine documented in this encounter Care Teams Fire Alarm Installer Relationship Specialty Start Date End Date None None PCP - General 12/01/23 documented as of this encounter
--- OUTSIDE RECORDS SUMMARY | 2024-07-08 18:51 | XMS_ITS | Encounter Summary ---
Author Organization [facility] Address [facility] [place] [address] Care Team Providers Care Hat Renovator Name Role Phone Unknown Primary Care Provider Unavailabl e Encounter Details Date Type Department Care Team (Late st Contact Info) Description 11/23/2023 Orders [place] [phone] Dariana Jane MD [facility] [place] [address] Osteomyelitis of other site, unspecified type Social History Tobacco Use Types Packs/Day Years Used Date Smoking Tobacco: Every Day Cigarettes 1 28 Smokeless Tobacco: Never Comments:Currently using kalia otine inhaler to help herself quit (11/08/18) Alcohol Use Standard Drinks/Week Comments Not Currently 0 (1 standard drink = 0.6 oz pur e alcohol) [facility] Utilities Answer Date Recorded In the past 12 months has e [employer], gas, oil, or water [employer] threatened to shut off services in [...] type documented in this encounter Care Teams Hat Renovator Relationship Specialty Start Date End Date Unknown None PCP - General 11/20/23 11/30/23 documented as of this encounter
--- OUTSIDE RECORDS SUMMARY | 2024-07-08 18:51 | XMS_ITS | Encounter Summary ---
[place] [address] Care Team Providers Care Specification Consultant Name Role Phone Yamile De Leon APRN Primary Care Provider [phone] Encounter Details Date Type Department Care Team [...] on filedocumented in this encounter Care Teams Specification Consultant Relationship Specialty Start Date End Date Yamile De Leon APRN PCP - General Family Medicine 10/01/18 11/19/23 documented as of this encounter
--- OUTSIDE RECORDS SUMMARY | 2024-07-08 18:52 | XMS_ITS | Encounter Summary ---
Author Organization [facility] Address [facility] [place] [address] Care Team Providers Care Labeling Associate Name Role Phone Yamile De Leon APRN Primary Care Provider [phone] Reason for Visit * Reason Comments Follow-up Encounter Details Date Type Department Care Team (Late st Contact Info) Description 11/08/2018 1:00 PM EDT Office [place] [phone] German Gu III, MD [facility] [place] [address] Abdirahman Enamorado MD Hospital discharge follow-up Social [...] [facility] [place] [address] Facsimile: Neurology Initial Visit: 11/08/2018 Patient name: Jenae La Date of : 1965 CC: Post hospital follow-up for possible seizure-like activity Jenae La is seen today for follow-up regarding possible seizure-like activity while [facility] in August 2018. HPI: Jenae La is a 53 y.o. female with past medical history significant for type 2 diabetes, fibromyalgia, chronic opiate use, obstructive sleep apnea (on CPAP at home) who was seen by the neurology consult service in August 2018 for possible seizure-like activity. Patient was admitted to the orthopedic service after transfer from [facility] for bilateral ankle fractures. Per description of her presentation to [facility] patient possibly had seizure-like activity and [...] file Gets together: Not on file Attends protestant service: Not on file Active member of [...] MD Neurology Resident - PGY-3 Personal Pager: [phone] 11/08/2018 Neurology Attending Attestation I saw and [...] as documented. German Gu III, MD Pager: [phone] 3:14 PM 11/08/2018 documented in this encounter Plan of Treatment Not on file documented as of this encounter Visit Diagnoses Diagnosis Hospital discharge follow-up Other follow-up examination documented in this encounter Care Teams Labeling Associate Relationship Specialty Start Date End Date Yamile De Leon APRN PCP - General Family Medicine 10/01/18 11/19/23 documented as of this encounter
--- OUTSIDE RECORDS SUMMARY | 2024-07-08 18:52 | XMS_ITS | Encounter Summary ---
Author Organization [facility] Address [facility] [place] [address] Care Team Providers Care Apartment Leasing Consultant Name Role Phone None Primary Care Provider Unavailabl e Encounter Details Date Type Department Care Team (Late st Contact Info) Description 09/20/2018 [place] [address] Buffy Comer PA [facility] [place] [address] S/P ORIF bilateral foot fractures, 09/16/18 (Gitajn) [...] (Gitajn) documented in this encounter Care Teams Apartment Leasing Consultant Relationship Specialty Start Date End Date None None PCP - General 09/14/18 09/30/18 documented as of this encounter
--- OUTSIDE RECORDS SUMMARY | 2024-07-08 18:52 | XMS_ITS | Encounter Summary ---
Author Organization [facility] Address [facility] [place] [address] Care Team Providers Care Publicity Writer Name Role Phone Yamile De Leon APRN Primary Care Provider Reason for Visit * Reason Comments Follow Up Surgery ORIF bilat foot fx, DOS 09.16.18 Encounter Details Date Type Department Care Team (Late st Contact Info) Description 10/01/2018 11:00 AM EDT Office [place] [phone] Mary Ellison PA [facility] DR ORTHOPAEDIC SURGERY [place] [phone] S/P ORIF bilateral foot fractures, 09/16/18 (Gitajn) [...] NAME: Jenae La AGE: 53 y.o. MR#: [id number] DATE OF VISIT: 10/01/2018 CHIEF COMPLAINT: Hospital [...] drenching night sweats. She has been using Agate for pain relief and using Lovenox for [...] (Gitajn) documented in this encounter Care Teams Publicity Writer Relationship Specialty Start Date End Date Yamile De Leon APRN PCP - General Family Medicine 10/01/18 11/19/23 documented as of this encounter
--- OUTSIDE RECORDS SUMMARY | 2024-07-08 18:52 | XMS_ITS | Encounter Summary ---
Author Organization [facility] Address [place] [address] Care Team Providers Care Intern Retail Name Role Phone Yamile De Leon APRN Primary Care Provider Encounter Details Date Type Department Care Team (Late st Contact Info) Description 10/08/2018 Notes [place] [address] Mary Ellison PA [facility] DR ORTHOPAEDIC SURGERY [place] [phone] Social History Tobacco Use Types Packs/Day Years [...] NAME: Jenae La AGE: 53 y.o. MR#: [id number] DATE OF VISIT: 10/08/2018 CHIEF COMPLAINT: Hospital [...] was contacted by a Nurse Practitoner regarding Jneae La . Jenae was reporting increased pain [...] other questions or concerns. [facility] Mary Ellison PA-C The above dictation was made with voice recogonition software documented in this encounter Plan of Treatment Not on file documented as of this encounter Visit Diagnoses Not on filedocumented in this encounter Care Teams Intern Retail Relationship Specialty Start Date End Date Yamile De Leon APRN PCP - General Family Medicine 10/01/18 11/19/23 documented as of this encounter
--- OUTSIDE RECORDS SUMMARY | 2024-07-08 18:52 | XMS_ITS | Encounter Summary ---
Author Organization [facility] Address [facility] [place] [address] Care Team Providers Care Internist Medical Doctor Md Name Role Phone Yamile De Leon APRN Primary Care Provider [phone] Reason for Visit * Reason Comments Foot Injury XR, ORIF Bilateral F oot Fx 09/16/18 (Lanettejrachael) Encounter Details Date Type Department Care Team (Late st Contact Info) Description 10/25/2018 11:30 AM EDT Office [place] [address] Aparna Reed MD [facility] [place] [address] S/P ORIF bilateral foot fractures, 09/16/18 (Kamilaajrachael) [...] been doing well at home, non-weight bearing. [facility] FollowUp 10/01/2018 Health in general Good [...] (Brianna) documented in this encounter Care Teams Internist Medical Doctor Md Relationship Specialty Start Date End Date Yamile De Leon APRN PCP - General Family Medicine 10/01/18 11/19/23 documented as of this encounter
--- OUTSIDE RECORDS SUMMARY | 2024-07-08 18:52 | XMS_ITS | Encounter Summary ---
Author Organization [facility] [place] [address] Care Team Providers Care Pmo Consultant Name Role Phone Yamile De Leon APRN Primary Care Provider [phone] Encounter Details Date Type Department Care Team (Late st Contact Info) Description 10/08/2018 10:45 AM EDT Office [place] [address] Cast discomfort Social History Tobacco Use Types [...] aftercare documented in this encounter Care Teams Pmo Consultant Relationship Specialty Start Date End Date Yamile De Leon APRN PCP - General Family Medicine 10/01/18 11/19/23 documented as of this encounter
--- OUTSIDE RECORDS SUMMARY | 2024-07-08 18:52 | XMS_ITS | Encounter Summary ---
Author Organization [facility] Address [facility] [place] [address] Care Team Providers Care Electronic Repair Troubleshooter Name Role Phone Yamile De Leon APRN Primary Care Provider [phone] Encounter Details Date Type Department Care Team (Late st Contact Info) Description 10/21/2018 Orders [place] [address] Aparna Reed MD [facility] DR [place] [address] S/P ORIF bilateral foot fractures, 09/16/18 (Brianna) [...] internal fixation of a Lisfranc fracture-dislocation with vvzhx-hkk-vqqsh constructs traversing the first and second tarsometatarsal joints and 3 Yaw wires traversing the third through fifth tarsometatarsal joints. Also status post fykmnekxh-nks-cyuyn fixation of an intra-articular first proximal phalangeal [...] fractures and a Lisfranc fracture-dislocation with a iuoqr-qhr-pgddh construct traversing the fourth metatarsal base fracture [...] internal fixation of a Lisfranc fracture-dislocation with wowkv-jll-iwmyd constructs traversing the firstand second tarsometatarsal joints and 3 Yaw wires traversing the thirdthrough fifth tarsometatarsal joints. Also status post pxysfizml-acs-vhphzhwnfuaoa of an intra-articular first proximal phalangeal base [...] neck fractures and a Lisfranc fracture-dislocation with llgkaw-ygu-hbcqk construct traversing the fourth metatarsal base fracture [...] below. Electronically signed by: Gretchen [facility] ([phone]),at 10/25/2018 3:36 PM Aparna Reed MD IMG DX ORDERABLES documented in this encounter Visit Diagnoses Diagnosis S/P ORIF bilateral foot fractures, 09/16/18 (Brianna) S/P ORIF bilateral foot fractures, 09/16/18 (Brianna) documented in this encounter Care Teams Electronic Repair Troubleshooter Relationship Specialty Start Date End Date Yamile De Leon APRN PCP - General Family Medicine 10/01/18 11/19/23 documented as of this encounter
--- OUTSIDE RECORDS SUMMARY | 2024-07-08 18:52 | XMS_ITS | Encounter Summary ---
[place] [address] Care Team Providers Care Tube Drawer Name Role Phone Yamile De Leon APRN Primary Care Provider [phone] Reason for Visit * Reason Onset Date Comments Medication Problem 10/12/2018 ? Lovenox dis continuation date Encounter Details Date Type Department Care Team (Late st Contact Info) Description 10/12/2018 Telephone [place] [phone] Daja Gregorio RN Medication Problem (? Lovenox [...] to be sent to Saniya Smith in [place], [place] Concerns communicated to LILLY Eden via In Basket. documented in this encounter Plan of Treatment Not on file documented as of this encounter Visit Diagnoses Not on filedocumented in this encounter Care Teams Tube Drawer Relationship Specialty Start Date End Date Yamile De Leon APRN PCP - General Family Medicine 10/01/18 11/19/23 documented as of this encounter
--- OUTSIDE RECORDS SUMMARY | 2024-07-08 18:52 | XMS_ITS | Encounter Summary ---
Author Organization Replaced By [facility] Address [facility] [place] [address] Care Team Providers Care Cinder Man Name Role Phone Yamile De Leon APRN Primary Care Provider [phone] Encounter Details Date Type Department Care Team (Latest Contact Info) Description 10/25/2018 9:58 AM EDT - 10/25/2018 11:59 PM EDT Hospital Encounter XRay at [address] [place] [address] Aparna Reed MD [facility] [place] [address] S/P ORIF bilateral foot fractures, 09/16/18 (Brianna) [...] below. ? Electronically signed by: TAMMIE Dailey [facility] ([phone]), at 10/25/2018 3:36 PM Narrative 10/25/2018 3:36 [...] internal fixation of a Lisfranc fracture-dislocation with dzacq-dlw-xulxj constructs traversing the first and second tarsometatarsal joints and 3 Yaw wires traversing the third through fifth tarsometatarsal joints. Also status post wvmwybpxt-dfs-hqaoe fixation of an intra-articular first proximal phalangeal [...] fractures and a Lisfranc fracture-dislocation with a vkhjd-abv-nemrx construct traversing the fourth metatarsal base fracture [...] internal fixation of a Lisfranc fracture-dislocation with krhpj-wnf-ksrbc constructs traversing the firstand second tarsometatarsal joints and 3 Yaw wires traversing the thirdthrough fifth tarsometatarsal joints. Also status post zzlxtfkgg-sex-wrcehsiuyayob of an intra-articular first proximal phalangeal base [...] neck fractures and a Lisfranc fracture-dislocation with upsekg-mvj-nmcdf construct traversing the fourth metatarsal base fracture [...] number below. Electronically signed by: Gretchen Odell [facility] ([phone]),at 10/25/2018 3:36 PM Aparna Reed MD IMG DX ORDERABLES documented in this encounter Visit Diagnoses Diagnosis S/P ORIF bilateral foot fractures, 09/16/18 (Brianna) documented in this encounter Care Teams Cinder Man Relationship Specialty Start Date End Date Yamile De Leon APRN PCP - General Family Medicine 10/01/18 11/19/23 documented as of this encounter
--- OUTSIDE RECORDS SUMMARY | 2024-07-08 18:52 | XMS_ITS | Encounter Summary ---
Author Organization [facility] [place] [address] Care Team Providers Care Mason Tender Name Role Phone None Primary Care Provider Unavailabl e Reason for Visit * Auth/Cert Specialty Diagnoses / Procedures Referred By Contac t Referred To Contact Diagnoses Fracture of unspecified tarsal bone(s) of unspecified foot, initial encounter for closed fracture CLOSED HEAD INJURY, FOOT BONE FX'S -CONFUSED Procedures EMERGENCY IPI Referral ID Status Reason Start Date Expiration Date Visits Re quested Visits Authorized [id number] 1 1 Encounter Details Date Type Department Care Team (Latest Contact Info) Description 09/14/2018 7:05 PM EDT - 09/20/2018 5:09 PM EDT Hospital Encounter 3 [place] [id number] Javad Urban MD [facility] [place] [address] S/P ORIF bilateral foot fractures, 09/16/18 (Gitajn) [...] Jenae La Patient Age: 53 y.o. Language: Frisian Race: White Ethnicity: Not nor Admit date: 09/14/2018 Discharge date and time: 09/20/2018 Attending Physician: Javad Urban MD Discharge Physician: Javad Urban MD Follow-up Recommendations for Providers: See discharge instructions for additional details. Future Appointments Date Time Provider Department Center 10/01/2018 10:[address] [facility] DX ROOM 1 Xray Leb Rad Clin 10/01/2018 11:00 AM Mary Ellison PA Leb Ortho 3C [facility] 11/08/2018 1:00 PM Abdirahman Enamorado MD Leb Neuro [facility] Inpatient Provider Contact Information: Javad Urban MD Orthopedics: [phone] After hours and weekends, call [facility] Grain And Yeast Plants Supervisor, , and have the Orthopedic resident paged. [...] the orthopaedics service as a transfer from [facility] for operative management of bilateral [...] outpatient follow up. ?? Upon arrival to [facility], Mrs. La reports moderate pain in [...] a 3.9% 30 day risk of , UT, or cardiac arrest. No further cardiac work [...] Discharge to: Home HOME HEALTH CARE AGENCY: ??[facility] ?? PHONE: [phone] FAX: [phone] Updated Allergies/ADRs: Allergies Allergen Reactions ??? Sulfa [...] bowel movement. You can also take an bunt-ycn-nzmqrxb medication, Miralax if needed to combat constipation. [...] skin and wound problems. Call your doctor ([phone]) if you develop: 1. Fever greater than [...] 1. You will have follow-up appointments at [facility] as indicated in Future Appointment and Orders. You will have an xray prior to those appointments so please come to Radiology, desk 3T, 1 hour BEFORE your appointment for those x-rays. Future Appointments Date Time Provider Department Center 10/01/2018 10:[address] [facility] DX ROOM 1 Xray Leb [facility] 10/01/2018 11:00 AM Mary Ellison PA Leb Ortho [facility] 11/08/2018 1:00 PM Abdirahman Enamorado MD Leb Neuro [facility] If you have questions or concerns: [...] Department Dept Phone 10/01/2018 10:[address] [facility] DX ROOM 1 XRay at [place] Arrive at: Dairy Processing Equipment Operator Area [phone] Please go to Dairy Processing Equipment Operator Area 3T ([place] Location). 10/01/2018 11:00 AM Mary Ellison PA Orthopaedics at [place] Arrive at: Dairy Processing Equipment Operator Area 3C [phone] 11/08/2018 1:00 PM Abdirahman Enamorado MD Neurology at [place] Arrive at: Dairy Processing Equipment Operator Area 3C [phone] Future Orders Complete By Expires Durable Medical Equipment Order [EQ148 Custom] As directed Process Instructions: Scheduling Instructions: Comments: Non weight bearing bilateraly Questions: Name/Description of requested item: Drop arm commode Size requested: 20 Vendor Name/Contact information: [facility] Durable Medical Equipment Order [EQ148 Custom] As [...] Scheduling Instructions: Comments: Jenae [address] [facility] [id number] (home) No relevant phone numbers on file. Diagnosis:Bilateral fractures both feet requiring surgery Non weight barring Patient's: Hgt: 5'1 Wgt: 183 VENDOR: [employer] Ordering: Drop arm commode needed ARABELLA is required for discharge Questions: Name/Description of requested item: Drop arm Commode Size requested: Standard Vendor Name/Contact information: [employer] Referral to Home Health - at DISCHARGE [[id number] CPT(R)] As directed Process Instructions: Scheduling Instructions: Comments: DOCUMENTATION FOR VNA SERVICES (INCLUDING THOSE PATIENTS WITH MEDICARE COVERAGE REQUIRING HOME VNA SERVICES AND/OR HOSPICE SERVICES) PATIENT'S LOCATION: Jenae Nickerson [facility]. [facility] [address] (home) Cell: No relevant phone numbers on file. Forensic Analyst's Name: herself with 's assist In discussion with the attending physician, it is certified that this patient is under their care and that they, or a Nurse Practitioner,Clinical Nurse specialist or Physician Assistant Offset Press Operator who is working directly with them, had [...] continue rehab for managing ADL's. Eval for MARKETING AND PROMOTIONS MANAGER: HOME HEALTH CARE AGENCY: [facility] PHONE: [phone] FAX: [phone] Start of care: 09/21/18 FOR MEDICARE ONLY: [...] PCP: LILLY Gaitan [address] [facility] [place] [address] All A agencies which cover the area of patient's residence have been reviewed, either verbally irasema writing, and patient/family have chosen the home health care agency noted Questions: Agency name and contact information: [facility] Patient location post discharge: home What [...] information: Harriet Primary Care Provider: LILLY Gaitan [phone] Discharge References/Attachments None documented in this encounter [...] bowel movement. You can also take an llai-vuz-pzdwlvw medication, Miralax if needed to combat constipation. [...] skin and wound problems. Call your doctor ([phone]) if you develop: 1. Fever greater than [...] 1. You will have follow-up appointments at [facility] as indicated in Future Appointment and Orders. You will have an xray prior to those appointments so please come to Radiology, desk 3T, 1 hour BEFORE your appointment for those x-rays. Future Appointments Date Time Provider Department Center 10/01/2018 10:[address] [facility] DX ROOM 1 Xray Leb [...] ) Service Ortho Pager # Check daily [facility] is unable to supply the commode and the slide board . This health underwriter called several places andfound slide board at [facility] and [facility] as well that is being serviced [...] discharge planning. Ivette Álvarez RN CM Pager [phone] * Ivette Álvarez RN - 09/20/2018 12:52 PM EDT The patient/public health representative has been provided a list of /DME vendors which serve their preferred geographic area. A letter describing our affiliations was reviewed with them and they were educated about their right to choose where referrals are placed. Patient requests referral to [facility] Expected date of discharge: 09/20/18 Referral routed to the Stock Taker for matching with agency/vendor and to provide any required information. Ivette Álvarez [facility] Beeper #[phone] * Ivette Álvarez RN - 09/20/2018 11:14 AM EDT Office of Care Managment (OCM /Caremanger (CM)/ Discharge planning ) Service Ortho Pager # check daily Patient is medically ready to go . Made call to [facility] to verify delivery of Wheelchair , slide board and drop arm commode for today (family said they can pick the items up on the way home ) Thalia from [facility] is checking with [facility] office to make sure items are available for them. Plan: CM will continue to follow for coordination of care and to facilitate discharge planning. ? Ivette Álvarez RN CM Pager [phone] * Ori Santos MD - 09/20/2018 5:39 [...] Pain well controlled. [facility]. Discharge likely today, dependent on DME delivery to [facility]. Activity: NWB BLE. Strict elevation in splints. Closure: Sutures (remove 10-14 days) Dressing: DSD, splints. Drain: None Anticoagulation: Lovenox for 30 days Antibiotics: Empiric Ceftriaxone/Azithromycin for suspected CAP Consults: Medicine, Neuro Dispo: Like home today Follow-up: As scheduled Ori Santos MD 09/20/2018 Future Appointments Date Time Provider Department Center 10/01/2018 10:[address] [facility] DX ROOM 1 Xray Leb [...] with Med Team re pt DC today( [id number]). Pt to dc Thursday * Sanket Freeman [...] Provider Department Center 10/01/2018 10:[address] [facility] DX ROOM 1 Xray Leb [...] L Elbow flexion 5/5 R, 5/5 L Job Specification Writer LE: Deferred due to her pain Sensation: [...] - PGY-3 General Neurology Consults Team Pager #[phone] 09/17/18 Associated attestation - Jose Swan MD [...] followup Jose Swan MD Department of Neurology [facility] * Sanket Freeman MD - [...] Department of Orthopaedics 09/17/18 * Davin Ann, LAB AIDE - 09/16/2018 11:22 PM EDT Pt refused [...] 8:31 AM EDT Internal Medicine Consult Note (#[id number]) Progress Note Patient info: Name: Jenae La : 1965 PCP: LILLY Gaitan PCP phone number: [phone] Date of Admission: 09/14/2018 ( Hospital Day [...] in the last 7068 hours. Invalid input(s): [id number] Heme: No results for input(s): LDH, HAPTOGLOBIN, URICACID in the last 168 hours. ABG: ABG (Arterial Blood Gas) No results found for: PHART, PO2ART, NTR6VIL, ZZA6MED Microbiology: Site Date and Time Obtained Result [...] a 3.9% 30 day risk of , UT, or cardiac arrest. No further cardiac work [...] Lyon MD, PGY-3 09/16/2018 Medicine Consult # [id number] Associated attestation - Chris Stahl DO - [...] today vs tomorrow pending scheduling availability. Appreciate [facility] medicine recs. - Neuro consult today - Remain NPO for possible OR today - UA today - NWB B/l LE - Pain control: Oral multimodal pain medication - Discharge planning: likely rehab per PT - F/u TBD Sanket Freeman MD PGY-2 Orthopaedics * Davin Ann, LAB AIDE - 09/15/2018 11:00 PM EDT Pt had Nausea, NIV held this evening. * Kathrin Madsen RN - 09/15/2018 2:05 PM EDT Based on discussions with the multi-disciplinary healthcare team, the patient would benefit from snf/swing/acute level of care at discharge. ?? I have met with the patient/public health representative to discuss discharge planning needs. I have provided the [facility], Office of Care Management letter from the Gi Technician pertaining to rehab referrals. I have also provided a letter describing our affiliations within the [facility] and educated them about their right to choose where referrals are placed. ?? I reviewed the different levels of rehab including SNF, swing, acute and LTAC with the patient/public health representative. ?? The patient/public health representative has been provided a list of facilities within their preferred geographic area. ?? I have requested that the patient/public health representative provide at least three choices for referral. ?? The patient/public health representative have requested referrals to: 2.[facility] [address] [place] [address] ?? [phone] 1. [facility] [address] [place] [address] ?? [phone] ?? Expected date of discharge: 09/17/18 Note routed to Stock Taker who will communicate referrals to facilities and [...] % Laboratory: No results found for: PHART, FNU4HEE, PO2ART, BHR6DBR, BEART Assessment: Called to set pt up [...] Urban PCP: LILLY Gaitan PCP phone #: [phone] Chief Complaint: Foot pain History of Present [...] from 09/12/18 - 09/14/18. Upon arrival at [facility] on 09/15/18,the patient noted moderate bilateral [...] Illicits: Denies Living Situation: Lives with in [place] Vitals: Last value Range last 24 hrs [...] in the last 7068 hours. Invalid input(s): RKLTTOQPBNT6H Heme: No results for input(s): LDH, HAPTOGLOBIN, [...] a 3.9% 30 day risk of , UT, or cardiac arrest. No further cardiac work [...] Internal Medicine, PGY- 3 Medicine Consult Pager #[phone] Associated attestation - Chris Stahl DO - [...] focal seizures and postconcussive syndrome. Here at [facility] patient has been clinically stable from [...] the orthopaedics service as a transfer from [facility] for operative management of bilateral [...] besides outpatient follow up. Upon arrival to [facility], Mrs. La reports moderate pain in [...] Situation: Lives with and multiple pets in [place], [place]. Review of Systems: As per HPI, [...] AM EDTAssociated Order(s): EEG AWAKE, ASLEEP, DROWSY [facility] Department of Neurology Inpatient [...] tablet 1,000 mg 1,000 mg Oral Q8H COUNT INCLUDES THE [facility] Sanket Freeman MD 1,000 mg at 09/17/18 [...] channel digitized electroencephalogram was performed in the [facility] Clinical Neurophysiology Laboratory. The 10/20 international system of electrode placement was used and bipolar and referential electrode montages were recorded. In addition to EEG the patient was monitored for EKGand lateral/vertical eye movements. Video was recorded during the session. The duration of the recording was 30 minutes. DENTAL ASSISTANT INSTRUCTOR'S REPORT: Performed by: RR/GERHARD Patient was not [...] Angel MD Clinical Neurophysiology Fellow Personal Pager #[phone] Epilepsy Neurology #[phone] Neurology Attending I have personally reviewed the EEG, and I agree with the details as written. The above report was formulated in discussion with me at the time of EEG reading, and I agree with it as documented. Jose Singer MD [place] [address] Pager: [phone], #[phone] Email: [email or web address] documented in this encounter Miscellaneous Notes * [...] quit. She is not interested in receiving [facility] Tobacco Cessation packet. A: Pt refused consult. P: Encouraged patient to reach out to PCP for nicotine inhaler prescription. Dimitrios Valle, MSN, RN-, [facility] Tobacco Centrifugal Casting Machine Operator [facility] Pager #[phone] * Plan of Care - Stacey Duenas [...] the bedpan again. Pr worked with MARIE Aguilra and Marshall OT this am and did [...] I have spoken with Thalia from the [place] office and she states shecannot get this DME on a Thu afternoon for Sat am but can do this for a Mon d/c. Pt states there jessy branch in [facility] that she has used in the past. Pt requests a referral to [facility] for an RN for skilled assessments, PT, OT, and steve for MARKETING AND PROMOTIONS MANAGER. Pt requests Ofelia Barger if possible. [...] NO xxx Lauren Perales, PT, DPT Pager: [phone] Inpatient Physical Therapy 2017 PT Evaluation Code [...] (Group);Wheelchair Training/Management (Group) Bed Mobility Assessment/Treatment Scoot/Bridge Hutchinson (Bed Mobility) conditional independence Ntvrnv-gk-Adz Hutchinson (Bed Mobility) conditional independence Cwa-cv-Ljsmsd Hutchinson (Bed Mobility) conditional independence Safety Issues (Bed Mobility) decreased use of legs for bridging/pushing Impairments (Bed Mobility) pain;ROM (range of motion) decreased Comment (Bed Mobility) incr time/effort to/from EOB but no physical assistance, NWB maintained throughout, good SLR b/l LEs Transfer Assessment/Treatment Bed-Chair Hutchinson (Transfers) supervision required;conditional independence (initial supervision progressing to ind) Aee-Rflmx-Cit Assistive Device (Transfers) slide board Hutchinson (Toilet Transfers) supervision required;conditional independence Assistive Device [...] with assist, home with home health(PT) Pager: [phone] Ori Bates OT 09/17/2018 Occupational Therapy Rehabilitation [...] pain;ROM (range of motion) decreased;strength decreased Scoot/Bridge Hutchinson (Bed Mobility) conditional independence Tqragf-qh-Qqz Hutchinson (Bed Mobility) conditional independence Xsx-ne-Xxbdsn Hutchinson (Bed Mobility) conditional independence Comment (Bed Mobility) Pt performeed bed mobility w/ increased time and pain. Transfer Assessment/Treatment Hutchinson (Toilet Transfers) supervision required;conditional independence Impairments (Transfers) pain;ROM (range of motion) decreased;strength decreased Mwg-Torkb-Dcd Assistive Device (Transfers) slide board Bed-Chair Hutchinson (Transfers) supervision required;contact guard assist Comment (Transfers) [...] Body Dressing Assessment/Training Assistive Devices (LB Dressing) medical malpractice paralegal Position (LB Dressing) sitting Hutchinson Level (LB Dressing) conditional independence Impairments (LB Dressing) pain;ROM (range of motion) decreased;strength decreased Comment (LB Dressing) Pt donned pants independently, w/ slight increase in time. Toileting Assessment/Training Position (Toileting) sitting Hutchinson Level (Toileting) conditional independence Impairments (Toileting) ROM [...] these falls. In conversation withthe patient's at [facility], there was some discussion of some [...] L Elbow flexion 5/5 R, 5/5 L Job Specification Writer LE: Deferred due to her pain Sensation: [...] Negative mcL Appearance UA Clear Clear Spec [place] UA 1.012 1.002 - 1.030 Color UA [...] - PGY-3 General Neurology Consults Team Pager #[phone] 09/16/18 Associated attestation - German Gu III, [...] as documented. German Gu III, MD Pager: [phone] 7:42 AM 09/17/2018 * Op Note - Aparna Reed MD - 09/16/2018 2:02 PM EDT [facility] Operative Note Patient Name: Jenae La : [id number] MR#: [id number] Case Date: 09/16/2018 Surgeon: Surgeon(s) and Role: * Aparna Reed MD - Primary * Nyo Zamora MD - Resident * Sanket Freeman [...] 2nd metatarsal fracture, left 3rd metatarsal fracture, uafv4im metatarsal fracture, left cuboid fracture. Procedure(s) (LRB): [...] the second tarsometatarsal joint. We used a aenju-qh-wjmsq clamp to reduce it, and then fixed [...] the articular surface. We then used a Wiseman to bring the impacted articular surface down [...] Reed MD - 09/16/2018 1:54 PM EDT [facility] Operative Note- Left foot This patient underwent bilateral procedures. This operative note is for the left foot. Patient Name: Jenae La : [id number] MR#: [id number] Case Date: 09/16/2018 Surgeon: Surgeon(s) and Role: [...] 2nd metatarsal fracture, left 3rd metatarsal fracture, kcay3zg metatarsal fracture, left cuboid fracture. ?? Procedure(s) [...] fractures and dislocations. She was seen at [facility] and transferred to [facility] for further care. We discussed the [...] third metatarsal fracture was exposed using a Wiseman. A vfexa-me-zvbmn clamp was used to control the distal [...] toe extensors. Fracture was exposed using a Wiseman. A vzvnx-ps-azugi clamp was used to control the distal [...] Implant Name Type Inv. Item Serial No. Boring And Filling Machine Operator Lot No. LRB No. Used Action PIN,KWIRE,TROC 1 ED,NS,[id number] ([id number]) (AutoReq) - [id number] IMPLANTS PIN,KWIRE,TROC 1 ED,NS,[id number] ([id number]) (AutoReq) [facility] Right 1 Implanted and Explanted SCREW,CRTX,STAP,T8,2.4X16MM ([id number]) - [id number] IMPLANTS SCREW,CRTX,STAP,T8,2.4X16MM ([id number]) [facility] Right 1 Implanted SCREW,CRTX,STAP,T8,2.4X26MM (8212067) - [id number] IMPLANTS SCREW,CRTX,STAP,T8,2.4X26MM ([id number]) [facility] Right 1 Implanted SCREW,CRTX,STAP,T8,2.4X22MM (9111239) - [id number] IMPLANTS SCREW,CRTX,STAP,T8,2.4X22MM ([id number]) [facility] Right 1 Implanted SCREW,SLFTP,LCK,STAR,2.4X12MM (8646782) - [id number] IMPLANTS SCREW,SLFTP,LCK,STAR,2.4X12MM (0007575) [facility] Right 1 Implanted SCREW,LCK,STAP,STAR,2.4X6MM ([id number]) - [id number] IMPLANTS SCREW,LCK,STAP,STAR,2.4X6MM (8125357) [facility] Right 1 Implanted SCREW,LCK,STAP,STAR,2.4X18MM (7526567) - [id number] IMPLANTS SCREW,LCK,STAP,STAR,2.4X18MM (9851258)[facility] Right 1 Implanted SCREW,CRTX,STAP,STRDRV,2X9MM ([id number]) - [id number] IMPLANTS SCREW,CRTX,STAP,STRDRV,2X9MM (0946477)[facility] Right 1 Implanted SCREW,CRTX,STAP,STAR,2X24MM (1836987) - [id number] IMPLANTS SCREW,CRTX,STAP,STAR,2X24MM (3835656) [facility] Right 1 Wasted SCREW,CRTX,STAP,STAR,2X28MM (2306332) - [id number] IMPLANTS SCREW,CRTX,STAP,STAR,2X28MM (9467594) [facility] Right 1 Implanted SCREW,CRTX,STAP,STAR,2X18MM (9642276) - [id number] IMPLANTS SCREW,CRTX,STAP,STAR,2X18MM (1651583) [facility] Right 1 Implanted SCREW,LCK,STAP,STAR,2X14MM (8865737) - [id number] IMPLANTS SCREW,LCK,STAP,STAR,2X14MM (3034310) [facility] Right 1 Implanted SCREW,LCK,STAP,STAR,2X18MM (3592053) - [id number] IMPLANTS SCREW,LCK,STAP,STAR,2X18MM (6558341) [facility] Right 1 Implanted PLATE,LCP,7H,2.0X52MM (9054826) - [id number] IMPLANTS PLATE,LCP,7H,2.0X52MM (7711248) [facility] Right 1 Implanted PLATE,CNDYLR,LCP,7H,2.4MM (4661896) (AutoReq) - [id number] IMPLANTS PLATE,CNDYLR,LCP,7H,2.4MM (2322501) (AutoReq) [facility] Right 1 Implanted BONE,CRUSHED,CANCELLOUS,10CC (3179326) (AutoReq) - [id number] IMPLANTS BONE,CRUSHED,CANCELLOUS,10CC(3098512) (AutoReq) [facility] [id number] Right 1 Implanted PIN,KWIRE,TROC 1ED,NS,4B392QG (5670329) - [id number] IMPLANTS PIN,KWIRE,TROC 1ED,NS,2Q208WC (2702094) [facility] Right 2 Implanted and Explanted PIN,KWIRE,PLAIN,2,0.621E9WT,NS (3263935) - [id number] IMPLANTS PIN,KWIRE,PLAIN,2,0.558L5PB,NS ([id number]) [employer] [facility] [place] Left 3 Implanted PLATE,LCP,CNDYLR,7H-SHFT,2MM (5782931) - [id number] IMPLANTS PLATE,LCP,CNDYLR,7H-SHFT,2MM (1730329)[facility] Left 1 Implanted SCREW,LCK,STAP,STAR,2X12MM (8833809) - [id number] IMPLANTS SCREW,LCK,STAP,STAR,2X12MM (5186129) [facility] Left 1 Implanted SCREW,LCK,STAP,STAR,2X10MM (9948685) - [id number] IMPLANTS SCREW,LCK,STAP,STAR,2X10MM (4823598) [facility] Left 1 Implanted SCREW,CRTX,STAP,STAR,2X12MM (8291067) - [id number] IMPLANTS SCREW,CRTX,STAP,STAR,2X12MM (1996012) [facility] Left 1 Implanted SCREW,CRTX,STAP,STAR,2X14MM (3590267) - [id number] IMPLANTS SCREW,CRTX,STAP,STAR,2X14MM (5413569) [facility] Left 1 Implanted SCREW,CRTX,STAP,STAR,2X14MM (0310838) - [id number] IMPLANTS SCREW,CRTX,STAP,STAR,2X14MM (7367148) [facility] Right 1 Implanted SCREW,VA,LCK,SLFTP,T6,2X22MM (5356083) - [id number] IMPLANTS SCREW,VA,LCK,SLFTP,T6,2X22MM (0234800)[employer] Right 1 Implanted SCREW,VA,LCK,SLFTP,T6,2X18MM (8175823) - [id number] IMPLANTS SCREW,VA,LCK,SLFTP,T6,2X18MM (8300656)[employer] Right 1 Implanted SCREW,VA,LCK,SLFTP,T6,2X16MM (0564591) - [id number] IMPLANTS SCREW,VA,LCK,SLFTP,T6,2X16MM (4538395)[facility] Right 1 Implanted SCREW,CRTX,STAP,STAR,2X16MM (7775906) - [id number] IMPLANTS SCREW,CRTX,STAP,STAR,2X16MM (0125943) [facility] Right 1 Implanted SCREW,CRTX,STAP,STAR,2X12MM (3726607) - [id number] IMPLANTS SCREW,CRTX,STAP,STAR,2X12MM (8773290) [facility] Right 1 Implanted SCREW,CRTX,STAP,STRDRV,2X10MM ([id number]) - [id number] IMPLANTS SCREW,CRTX,STAP,STRDRV,2X10MM ([id number]) [facility] Left 1 Implanted GUIDEW,THRD,[id number] ([id number]) - [id number] IMPLANTS GUIDEW,THRD,[id number] ([id number]) [facility]; [facility] Right [...] or concerns. Lauren Perales PT, DPT Pager: [phone] 09/16/18 Inpatient Rehabilitation Department * Plan of [...] will follow up post up as able/appropriate. Oir Valencia OT Pager: [phone] * Initial Assessments - Kathrin Madsen RN [...] MEDICAID [place] Prescription Coverage: [facility] Other: Primary Care Provider: LILLY Gaitan [phone] Patient/Caregiver Goals of Treatment: agreed to go [...] referrals, #1 [facility], [facility]. Referral submitted. Plan: snf vs swing vs acute. A member of the Care Management team will continue to monitor progress, follow for continuity of care and assist with transition of care planning. Kathrin Madsen RN Pager: [phone] * Plan of Care - Horace Beckman [...] Glucose, POC 139 65 - 199 mg/dL [facility] Comment: Supplemental ranges: <140 mg/dL before meals <180 mg/dL all other times of the day Blood specimen (specimen) 09/20/2018 11:29 AM EDT 09/20/2018 11:29 AM EDT Javad Urban MD POINT OF CARE TEST O RDERABLES [facility] [place] [address] * POCT Glucose (09/20/2018 8:02 AM EDT) Glucose, POC 167 65 - 199 mg/dL [facility] Comment: Supplemental ranges: <140 mg/dL before meals <180 mg/dL all other times of the day Blood specimen (specimen) 09/20/2018 8:02 AM EDT 09/20/2018 8:02 AM EDT Javad Urban MD POINT OF CARE TEST O RDERALISSETT Performing Organization Address [facility] Co de Phone Number [facility] [place] [address] * POCT Glucose (09/20/2018 4:03 AM EDT) Glucose, POC 127 65 - 199 mg/dL [facility] Comment: Supplemental ranges: <140 mg/dL before meals <180 mg/dL all other times of the day Blood specimen (specimen) 09/20/2018 4:03 AM EDT 09/20/2018 4:03 AM EDT Javad Urban MD POINT OF CARE TEST O JONY Performing Organization Address [facility] Co de Phone Number [facility] [place] [address] * POCT Glucose (09/19/2018 11:45 PM EDT) Glucose, POC 146 65 - 199 mg/dL [facility] Comment: Supplemental ranges: <140 mg/dL before meals <180 mg/dL all other times of the day Blood specimen (specimen) 09/19/2018 11:45 PM EDT 09/19/2018 11:45 PM EDT Javad Urban MD POINT OF CARE TEST O RDERALISSETT Performing Organization Address [facility] Co de Phone Number [facility] [place] [address] * POCT Glucose (09/19/2018 7:26 PM EDT) Glucose, POC 149 65 - 199 mg/dL [facility] Comment: Supplemental ranges: <140 mg/dL before meals <180 mg/dL all other times of the day Blood specimen (specimen) 09/19/2018 7:26 PM EDT 09/19/2018 7:26 PM EDT Javad Urban MD POINT OF CARE TEST O RDSILVIO Performing Organization Address City/[facility]/ZIP Co de Phone Number [facility] [place] [address] * POCT Glucose (09/19/2018 4:14 PM EDT) Glucose, POC 144 65 - 199 mg/dL [facility] Comment: Supplemental ranges: <140 mg/dL before meals <180 mg/dL all other times of the day Blood specimen (specimen) 09/19/2018 4:14 PM EDT 09/19/2018 4:14 PM EDT Javad Urban MD POINT OF CARE TEST O JONY Performing Organization Address [facility]/ZIP Co de Phone Number [facility] [place] [address] * POCT Glucose (09/19/2018 11:28 AM EDT) Glucose, POC 170 65 - 199 mg/dL [facility] Comment: Supplemental ranges: <140 mg/dL before meals <180 mg/dL all other times of the day Blood specimen (specimen) 09/19/2018 11:28 AM EDT 09/19/2018 11:28 AM EDT Javad Urban MD POINT OF CARE TEST O JONY Performing Organization Address [facility]/ZIP Co de Phone Number [facility] [place] [address] * POCT Glucose (09/19/2018 7:54 AM EDT) Glucose, POC 120 65 - 199 mg/dL [facility] Comment: Supplemental ranges: <140 mg/dL before meals <180 mg/dL all other times of the day Blood specimen (specimen) 09/19/2018 7:54 AM EDT 09/19/2018 7:54 AM EDT Javad Urban MD POINT OF CARE TEST O RDERABLES Performing Organization Address [facility] Co de Phone Number [facility] [place] [address] * POCT Glucose (09/19/2018 3:42 AM EDT) Glucose, POC 105 65 - 199 mg/dL [facility] Comment: Supplemental ranges: <140 mg/dL before meals <180 mg/dL all other times of the day Blood specimen (specimen) 09/19/2018 3:42 AM EDT 09/19/2018 3:42 AM EDT Javad Urban MD POINT OF CARE TEST O RDERALISSETT Performing Organization Address [facility] Co de Phone Number [facility] [place] [address] * Magnesium (09/19/2018 3:40 AM EDT) [facility] Signature Magnesium 0.74 0.69 - 1.07 mmol/L [facility] Blood specimen (specimen) Venous Draw / Unknown 09/19/2018 3:40 AM EDT 09/19/2018 4:40 AM EDT Narrative Resulting Agency Comment Spec In Lab Buffy CARR CHEMISTRY ORDERAB LES Performing Organization Address [facility] Co de Phone Number [facility] [place] [address] * (ABNORMAL) Basic Metabolic Panel (non-fasting) (09/19/2018 3:40 AM EDT) Glucose 111 65 - 199 mg/dL [facility] Comment:Diabetes: >=200 mg/d L plus symptoms Blood Urea Nitrogen 11 8 - 18 mg/dL [facility] Creatinine 0.64(L) 0.70 - 1.20 mg/dL [facility] Sodium 140 135 - 145 mmol/L [facility] Potassium 4.0 3.5 - 5.0 mmol/L [facility] Comment: Please note: ??Patients with WBC >100,000 may have falsely elevated Potassium levels. ??For accurate Potassium quantification in these patients send serum separator tube (gold top) for subsequent determinations. ??Contact the Clinical Chemistry Laboratory if there are any questions. Chloride 104 98 - 107 mmol/L [facility] Carbon Dioxide 27 22 - 31 mmol/L [facility] Anion Gap 9 5 - 15 mmol/L [facility] Calcium 8.9 8.5 - 10.5 mg/dL [facility] Est Glomerular Filtration Rate 103 >=60 mL/min/1. 73 m?? [facility] Comment: The eGFR was calculated using the CKD-EPI equation. As with all creatinine based estimates of kidney function, eGFR values calculated with the CKD-EPI equation are not accurate in patients with acute kidney failure, extremes of body mass or the acutely ill. http://[employer]/[facility] ELK CITYnkf eGFR 120 >=60 mL/min/1. 73 m?? [facility] Comment: The eGFR was calculated using the CKD-EPI equation. As with all creatinine based estimates of kidney function, eGFR values calculated with the CKD-EPI equation are not accurate in patients with acute kidney failure, extremes of body mass or the acutely ill. http://[employer]/DHnkf Blood specimen (specimen) 09/19/2018 3:40 AM EDT 09/19/2018 3:53 AM EDT Narrative Resulting Agency Comment Spec In Lab Trina Loo APRN CHEMISTRY ORDERABLE S [facility] [place] [address] * POCT Glucose (09/18/2018 11:20 PM EDT) Glucose, POC 150 65 - 199 mg/dL [facility] Comment: Supplemental ranges: <140 mg/dL before meals <180 mg/dL all other times of the day Blood specimen (specimen) 09/18/2018 11:20 PM EDT 09/18/2018 11:20 PM EDT Javad Urban MD POINT OF CARE TEST O JONY Performing Organization Address City/[facility]/ZIP Co de Phone Number [facility] [place] [address] * POCT Glucose (09/18/2018 7:57 PM EDT) Glucose, POC 103 65 - 199 mg/dL [facility] Comment: Supplemental ranges: <140 mg/dL before meals <180 mg/dL all other times of the day Blood specimen (specimen) 09/18/2018 7:57 PM EDT 09/18/2018 7:57 PM EDT Javad Urban MD POINT OF CARE TEST O JONY Performing Organization Address [facility] Co de Phone Number [facility] [place] [address] * POCT Glucose (09/18/2018 4:56 PM EDT) Glucose, POC 142 65 - 199 mg/dL [facility] Comment: Supplemental ranges: <140 mg/dL before meals <180 mg/dL all other times of the day Blood specimen (specimen) 09/18/2018 4:56 PM EDT 09/18/2018 4:56 PM EDT Javad Urban MD POINT OF CARE TEST O JONY Performing Organization Address [facility] Co de Phone Number [facility] [place] [address] * POCT Glucose (09/18/2018 11:59 AM EDT) Glucose, POC 160 65 - 199 mg/dL [facility] Comment: Supplemental ranges: <140 mg/dL before meals <180 mg/dL all other times of the day Blood specimen (specimen) 09/18/2018 11:59 AM EDT 09/18/2018 11:59 AM EDT Javad Urban MD POINT OF CARE TEST O JONY Performing Organization Address [facility] Co de Phone Number [facility] [place] [address] * POCT Glucose (09/18/2018 7:55 AM EDT) Glucose, POC 126 65 - 199 mg/dL [facility] Comment: Supplemental ranges: <140 mg/dL before meals <180 mg/dL all other times of the day Blood specimen (specimen) 09/18/2018 7:55 AM EDT 09/18/2018 7:55 AM EDT Javad Urban MD POINT OF CARE TEST O JONY Performing Organization Address [facility] de Phone Number [facility] [place] [address] * POCT Glucose (09/18/2018 3:58 AM EDT) Glucose, POC 125 65 - 199 mg/dL [facility] Comment: Supplemental ranges: <140 mg/dL before meals <180 mg/dL all other times of the day Blood specimen (specimen) 09/18/2018 3:58 AM EDT 09/18/2018 3:58 AM EDT Javad Urban MD POINT OF CARE TEST O RDERALISSETT Performing Organization Address [facility] de Phone Number [facility] [place] [address] * (ABNORMAL) Magnesium (09/18/2018 3:37 AM EDT) Magnesium 0.67(L) 0.69 - 1.07 mmol/L [facility] Blood specimen (specimen) Venous Draw / Unknown 09/18/2018 3:37 AM EDT 09/18/2018 4:55 AM EDT Narrative Resulting Agency Comment Spec In Lab Trina Mueller Eze CARLOS CHEMISTRY ORDERABLE S [facility] [place] [address] * (ABNORMAL) Basic Metabolic Panel (non-fasting) (09/18/2018 3:37 AM EDT) Glucose 106 65 - 199 mg/dL [facility] Comment:Diabetes: >=200 mg/d L plus symptoms Blood Urea Nitrogen 7(L) 8 - 18 mg/dL [facility] Creatinine 0.62(L) 0.70 - 1.20 mg/dL [facility] Sodium 143 135 - 145 mmol/L [facility] Potassium 3.1(L) 3.5 - 5.0 mmol/L [facility] Comment: Please note: ??Patients with WBC >100,000 may have falsely elevated Potassium levels. ??For accurate Potassium quantification in these patients send serum separator tube (gold top) for subsequent determinations. ??Contact the Clinical Chemistry Laboratory if there are any questions. Chloride 106 98 - 107 mmol/L [facility] Carbon Dioxide 26 22 - 31 mmol/L [facility] Anion Gap 11 5 - 15 mmol/L [facility] Calcium 8.5 8.5 - 10.5 mg/dL [facility] Est Glomerular Filtration Rate 104 >=60 mL/min/1. 73 m?? [facility] Comment: The eGFR was calculated using the CKD-EPI equation. As with all creatinine based estimates of kidney function, eGFR values calculated with the CKD-EPI equation are not accurate in patients with acute kidney failure, extremes of body mass or the acutely ill. http://[employer]/DHMCnkf eGFR 121 >=60 mL/min/1. 73 m?? [facility] Comment: The eGFR was calculated using the CKD-EPI equation. As with all creatinine based estimates of kidney function, eGFR values calculated with the CKD-EPI equation are not accurate in patients with acute kidney failure, extremes of body mass or the acutely ill. http://[employer]/DHMCnkf Blood specimen (specimen) 09/18/2018 3:37 AM EDT 09/18/2018 3:59 AM EDT Narrative Resulting Agency Comment Spec In Lab Trina Loo APRN CHEMISTRY ORDERABLE S Performing Organization Address [facility] Co de Phone Number [facility] [place] [address] * POCT Glucose (09/17/2018 11:33 PM EDT) Glucose, POC 145 65 - 199 mg/dL [facility] Comment: Supplemental ranges: <140 mg/dL before meals <180 mg/dL all other times of the day Blood specimen (specimen) 09/17/2018 11:33 PM EDT 09/17/2018 11:33 PM EDT Javad Urban MD POINT OF CARE TEST O RDERABLES Performing Organization Address [facility] Co de Phone Number [facility] [place] [address] * (ABNORMAL) POCT Glucose (09/17/2018 7:24 PM EDT) Glucose, POC 200(H) 65 - 199 mg/dL [facility] Comment: Supplemental ranges: <140 mg/dL before meals <180 mg/dL all other times of the day Blood specimen (specimen) 09/17/2018 7:24 PM EDT 09/17/2018 7:24 PM EDT Javad Ubran MD POINT OF CARE TEST O RDERABLES Performing Organization Address [facility] Co de Phone Number [facility] [place] [address] * POCT Glucose (09/17/2018 3:16 PM EDT) Glucose, POC 180 65 - 199 mg/dL [facility] Comment: Supplemental ranges: <140 mg/dL before meals <180 mg/dL all other times of the day Blood specimen (specimen) 09/17/2018 3:16 PM EDT 09/17/2018 3:16 PM EDT Javad Urban MD POINT OF CARE TEST O RDSILVIO Performing Organization Address [facility] Co de Phone Number [facility] [place] [address] * POCT Glucose (09/17/2018 12:01 PM EDT) Glucose, POC 137 65 - 199 mg/dL [facility] Comment: Supplemental ranges: <140 mg/dL before meals <180 mg/dL all other times of the day Blood specimen (specimen) 09/17/2018 12:01 PM EDT 09/17/2018 12:01 PM EDT Javad Urban MD POINT OF CARE TEST O JONY Performing Organization Address [facility] Co de Phone Number [facility] [place] [address] * EEG awake, asleep, drowsy, routine (09/17/2018 9:30 AM EDT) Narrative Jose Singer MD - 09/17/2018 9:30 AM EDT Jose Singer MD ? 09/21/2018 10:14 AM [facility] Department of Neurology Inpatient [...] tablet 1,000 mg ??1,000 mg Oral Q8H COUNT INCLUDES THE [facility] Sanket Freeman MD ?? 1,000 mg [...] injection 1-4 Units ??1-4 Units Subcutaneous Q4H COUNT INCLUDES THE [facility] Sanket Freeman MD ?? 1 Units [...] duration of the recording was 30 minutes. DENTAL ASSISTANT INSTRUCTOR'S REPORT:Performed by: RR/CM Patient was not sleep [...] Angel MD Clinical Neurophysiology Fellow Personal Pager #[phone] Epilepsy Neurology #[phone] Neurology Attending I have personally reviewed the EEG, and I agree with the details as written. ?? The above report was formulated in discussion with me at the time of EEG reading, and I agree with it as documented. Jose Singer MD [place] [address] Pager: [phone], #[phone] Email: [email or web address] Javad Urban MD NEUROLOGY ORDERABLES * (ABNORMAL) Basic Metabolic Panel (non-fasting) (09/17/2018 9:02 AM EDT) Glucose 121 65 - 199 mg/dL [facility] Comment:Diabetes: >=200 mg/d L plus symptoms Blood Urea Nitrogen 9 8 - 18 mg/dL [facility] Creatinine 0.59(L) 0.70 - 1.20 mg/dL [facility] Sodium 144 135 - 145 mmol/L [facility] Potassium 2.9(Criti toy) 3.5 - 5.0 mmol/L [facility] Comment: Called by: maged/neda, Read back by: Aruna Calvo, Date/Time:09/17/18 10:19. Please note: ??Patients with WBC >100,000 may have falsely elevated Potassium levels. ??For accurate Potassium quantification in these patients send serum separator tube (gold top) for subsequent determinations. ??Contact the Clinical Chemistry Laboratory if there are any questions. Chloride 108(H) 98 - 107 mmol/L [facility] Carbon Dioxide 25 22 - 31 mmol/L [facility] Anion Gap 11 5 - 15 mmol/L [facility] Calcium 8.0(L) 8.5 - 10.5 mg/dL [facility] Est Glomerular Filtration Rate 106 >=60 mL/min/1. 73 m?? [facility] Comment: The eGFR was calculated using the CKD-EPI equation. As with all creatinine based estimates of kidney function, eGFR values calculated with the CKD-EPI equation are not accurate in patients with acute kidney failure, extremes of body mass or the acutely ill. http://[employer]/[facility]MCnkf eGFR 123 >=60 mL/min/1. 73 m?? [facility] Comment: The eGFR was calculated using the CKD-EPI equation. As with all creatinine based estimates of kidney function, eGFR values calculated with the CKD-EPI equation are not accurate in patients with acute kidney failure, extremes of body mass or the acutely ill. [email or web address]/DHMCnkf Blood specimen (specimen) 09/17/2018 9:02 AM EDT 09/17/2018 9:17 AM EDT Narrative Resulting Agency Comment Spec In Lab Javad Urban MD CHEMISTRY ORDERABLES Performing Organization Address [facility] Co de Phone Number [facility] [place] [address] * POCT Glucose (09/17/2018 7:33 AM EDT) Glucose, POC 136 65 - 199 mg/dL [facility] Comment: Supplemental ranges: <140 mg/dL before meals <180 mg/dL all other times of the day Blood specimen (specimen) 09/17/2018 7:33 AM EDT 09/17/2018 7:33 AM EDT Javad Urban MD POINT OF CARE TEST O RDERABLES Performing Organization Address [facility] Co de Phone Number [facility] [place] [address] * POCT Glucose (09/17/2018 3:29 AM EDT) Glucose, POC 126 65 - 199 mg/dL [facility] Comment: Supplemental ranges: <140 mg/dL before meals <180 mg/dL all other times of the day Blood specimen (specimen) 09/17/2018 3:29 AM EDT 09/17/2018 3:29 AM EDT Javad Urban MD POINT OF CARE TEST O RDERABLES Performing Organization Address [facility] Co de Phone Number [facility] [place] [address] * POCT Glucose (09/16/2018 11:25 PM EDT) Glucose, POC 123 65 - 199 mg/dL [facility] Comment: Supplemental ranges: <140 mg/dL before meals <180 mg/dL all other times of the day Blood specimen (specimen) 09/16/2018 11:25 PM EDT 09/16/2018 11:25 PM EDT Javad Urban MD POINT OF CARE TEST O JONY Performing Organization Address [facility]/ZIP Co de Phone Number [facility] [place] [address] * POCT Glucose (09/16/2018 8:29 PM EDT) Glucose, POC 114 65 - 199 mg/dL [facility] Comment: Supplemental ranges: <140 mg/dL before meals <180 mg/dL all other times of the day Blood specimen (specimen) 09/16/2018 8:29 PM EDT 09/16/2018 8:29 PM EDT Javad Urban MD POINT OF CARE TEST O JONY Performing Organization Address [facility]/ZIP Co de Phone Number [facility] [place] [address] * POCT Glucose (09/16/2018 3:35 PM EDT) Glucose, POC 106 65 - 199 mg/dL [facility] Comment: Supplemental ranges: <140 mg/dL before meals <180 mg/dL all other times of the day Blood specimen (specimen) 09/16/2018 3:35 PM EDT 09/16/2018 3:35 PM EDT Javad Urban MD POINT OF CARE TEST O JONY Performing Organization Address [facility]/ZIP Co de Phone Number [facility] [place] [address] * (ABNORMAL) Basic Metabolic Panel (non-fasting) (09/16/2018 3:33 PM EDT) Glucose 106 65 - 199 mg/dL [facility] Comment:Diabetes: >=200 mg/d L plus symptoms Blood Urea Nitrogen 13 8 - 18 mg/dL [facility] Creatinine 0.62(L) 0.70 - 1.20 mg/dL [facility] Sodium 147(H) 135 - 145 mmol/L [facility] Potassium 3.2(L) 3.5 - 5.0 mmol/L [facility] Comment: Please note: ??Patients with WBC >100,000 may have falsely elevated Potassium levels. ??For accurate Potassium quantification in these patients send serum separator tube (gold top) for subsequent determinations. ??Contact the Clinical Chemistry Laboratory if there are any questions. Chloride 112(H) 98 - 107 mmol/L [facility] Carbon Dioxide 22 22 - 31 mmol/L [facility] Anion Gap 13 5 - 15 mmol/L [facility] Calcium 8.1(L) 8.5 - 10.5 mg/dL [facility] Est Glomerular Filtration Rate 104 >=60 mL/min/1. 73 m?? [facility] Comment: The eGFR was calculated using the CKD-EPI equation. As with all creatinine based estimates of kidney function, eGFR values calculated with the CKD-EPI equation are not accurate in patients with acute kidney failure, extremes of body mass or the acutely ill. http://[employer]/DHMCnkf eGFR 121 >=60 mL/min/1. 73 m?? [facility] Comment: The eGFR was calculated using the CKD-EPI equation. As with all creatinine based estimates of kidney function, eGFR values calculated with the CKD-EPI equation are not accurate in patients with acute kidney failure, extremes of body mass or the acutely ill. http://[employer]/DHMCnkf Blood specimen (specimen) 09/16/2018 3:33 PM EDT 09/16/2018 3:49 PM EDT Narrative Resulting Agency Comment Spec In Lab Javad Urban MD CHEMISTRY ORDERABLES [facility] [place] [address] * Hemoglobin A1c (09/16/2018 3:33 PM EDT) Hemoglobin A1c 5.5 4.3 - 5.6 % [facility] Comment: Reference Range: 4.3 - [...] 1, S67-74 Estimated Average Glucose 111 mg/dL [facility] Comment: eAG equivalents for HbA1c [...] into estimated average glucose values. ??Diabetes Care 2008:31(8):9129-1033. Blood specimen (specimen) 09/16/2018 3:33 PM EDT 09/16/2018 3:49 PM EDT Narrative Resulting Agency Comment Spec In Lab Javad Urban MD CHEMISTRY ORDERABLES [facility] [place] [address] * XR Foot Min 3 views Bilat [...] number below. Electronically signed by: TAMMIE Mackay Count Includes [facility]([phone]), at 09/16/2018 3:47 PM Javad Urban MD IMG DX ORDERABLES * POCT Glucose (09/16/2018 1:56 PM EDT) Glucose, POC 126 65 - 199 mg/dL [facility] Comment: Supplemental ranges: <140 mg/dL before meals <180 mg/dL all other times of the day Blood specimen (specimen) 09/16/2018 1:56 PM EDT 09/16/2018 1:56 PM EDT Javad Urban MD POINT OF CARE TEST O RDERABLES [facility] [place] [address] * XR Fluoro No Rad <1Hr - OR Use (09/16/2018 1:10 PM EDT) Narrative RAD - 09/16/2018 1:11 PM EDT This order does not need a radiologist interpretation. ?? Javad Urban MD IMG FLUORO ORDERABLE S Performing Organization Address [facility] Co de Phone Number [place], [place] * POCT Glucose (09/16/2018 7:46 AM EDT) Glucose, POC 131 65 - 199 mg/dL [facility] Comment: Supplemental ranges: <140 mg/dL before meals <180 mg/dL all other times of the day Blood specimen (specimen) 09/16/2018 7:46 AM EDT 09/16/2018 7:46 AM EDT Javad Urban MD POINT OF CARE TEST O RDERABLES Performing Organization Address [facility] Co de Phone Number [facility] [place] [address] * Urine Hold (09/16/2018 6:07 AM EDT) Hold, Urine Sample in lab. [facility] Urine specimen (specimen) Urine / Unknown 09/16/2018 6:07 AM EDT 09/16/2018 6:54 AM EDT Sanket Freeman MD URINE ORDERABLES Performing Organization Address [facility] Co de Phone Number [facility] [place] [address] * (ABNORMAL) Urinalysis with reflex Culture (09/16/2018 6:07 AM EDT) Glucose, Urine Dipstick Negative Negative mg/dL [facility] Protein, Urine Dipstick Negative Negative mg/dL [facility] Bilirubin, Urine Dipstick Negative Negative mg/dL [facility] Comment: Clinical correlation required for positive Urine Bilirubin results as false positive may occur with some drugs and drug related products. If a false positive is suspected a serum total bilirubin should be considered if clinically indicated. Urobilinogen, Urine Dipstick Normal Normal mg/dL [facility] pH, Urn (dipstick) 6.0 5.0 - 8.0 [facility] Blood, Urine Dipstick Negative Negative mg/dL [facility] Ketone, Urine Dipstick 5(A) Negative mg/dL [facility] Nitrite, Urine Dipstick Negative Negative [facility] Leukocytes, Urine Dipstick Negative Negative [facility] LAB[facility]ATORY Appearance, Urine Dipstick Clear Clear [facility] Specific [place] Urine Automated 1.012 1.002 - 1.030 [facility] Color, Urine Dipstick Straw Yellow [facility] Reflex to Culture No [facility] Urine specimen (specimen) 09/16/2018 6:07 AM EDT 09/16/2018 6:52 AM EDT Narrative Resulting Agency Comment Spec In Lab Javad Urban MD URINE ORDERABLES Performing Organization Address City/[facility]/ZIP Co de Phone Number [facility] [place] [address] * POCT Glucose (09/16/2018 3:30 AM EDT) Glucose, POC 126 65 - 199 mg/dL [facility] Comment: Supplemental ranges: <140 mg/dL before meals <180 mg/dL all other times of the day Blood specimen (specimen) 09/16/2018 3:30 AM EDT 09/16/2018 3:30 AM EDT Javad Urban MD POINT OF CARE TEST O RDERABLES Performing Organization Address [facility]/ZIP Co de Phone Number [facility] [place] [address] * POCT Glucose (09/15/2018 10:59 PM EDT) Glucose, POC 143 65 - 199 mg/dL [facility] Comment: Supplemental ranges: <140 mg/dL before meals <180 mg/dL all other times of the day Blood specimen (specimen) 09/15/2018 10:59 PM EDT 09/15/2018 10:59 PM EDT Javad Urban MD POINT OF CARE TEST O JONY Performing Organization Address [facility] Co de Phone Number [facility] [place] [address] * POCT Glucose (09/15/2018 8:10 PM EDT) Glucose, POC 100 65 - 199 mg/dL [facility] Comment: Supplemental ranges: <140 mg/dL before meals <180 mg/dL all other times of the day Blood specimen (specimen) 09/15/2018 8:10 PM EDT 09/15/2018 8:10 PM EDT Javad Urban MD POINT OF CARE TEST Rosie BORGES Performing Organization Address [facility] Co de Phone Number [facility] [place] [address] * POCT Glucose (09/15/2018 3:43 PM EDT) Glucose, POC 173 65 - 199 mg/dL [facility] Comment: Supplemental ranges: <140 mg/dL before meals <180 mg/dL all other times of the day Blood specimen (specimen) 09/15/2018 3:43 PM EDT 09/15/2018 3:43 PM EDT Javad Urban MD POINT OF CARE TEST O JONY Performing Organization Address City/[facility] Co de Phone Number [facility] [place] [address] * POCT Glucose (09/15/2018 12:05 PM EDT) Glucose, POC 177 65 - 199 mg/dL [facility] Comment: Supplemental ranges: <140 mg/dL before meals <180 mg/dL all other times of the day Blood specimen (specimen) 09/15/2018 12:05 PM EDT 09/15/2018 12:05 PM EDT Javad Urban MD POINT OF CARE TEST O JONY Performing Organization Address [facility] de Phone Number [facility] [place] [address] * (ABNORMAL) POCT Glucose (09/15/2018 7:39 AM EDT) Glucose, POC 206(H) 65 - 199 mg/dL [facility] Comment: Supplemental ranges: <140 mg/dL before meals <180 mg/dL all other times of the day Blood specimen (specimen) 09/15/2018 7:39 AM EDT 09/15/2018 7:39 AM EDT Javad Urban MD POINT OF CARE TEST O JONY Performing Organization Address [facility] de Phone Number [facility] [place] [address] * POCT Glucose (09/15/2018 4:12 AM EDT) Glucose, POC 141 65 - 199 mg/dL [facility] Comment: Supplemental ranges: <140 mg/dL before meals <180 mg/dL all other times of the day Blood specimen (specimen) 09/15/2018 4:12 AM EDT 09/15/2018 4:12 AM EDT Javad Urban MD POINT OF CARE TEST O JONY Performing Organization Address [facility] Co de Phone Number [facility] [place] [address] * ABORH Recheck Status (09/15/2018 3:44 AM EDT) ABORH Recheck Order Order Placed [facility] ABORH Type Recheck Complete [facility] Blood specimen (specimen) 09/15/2018 3:44 AM EDT 09/15/2018 3:59 AM EDT Narrative Resulting Agency Comment Spec In Lab Ori Santos MD BLOOD BANK LAB ORDER MADHAVI Performing Organization Address City/[facility]/ZIP Co de Phone Number [facility] [place] [address] * Antibody screen (09/15/2018 3:44 AM EDT) Ab Screen Interp Negative [facility] Expires at [id number] on: 09/18/2018 [facility] Blood specimen (specimen) 09/15/2018 3:44 AM EDT 09/15/2018 3:59 AM EDT Narrative Resulting Agency Comment Spec In Lab Ori Santos MD BLOOD BANK LAB ORDER MADHAVI Performing Organization Address [facility] Co de Phone Number [facility] [place] [address] * ABO/Rh Typing (09/15/2018 3:44 AM EDT) ABORH Type A Pos [facility] Blood specimen (specimen) 09/15/2018 3:44 AM EDT 09/15/2018 3:59 AM EDT Narrative Resulting Agency Comment Spec In Lab Ori Santos MD BLOOD BANK LAB ORDER MADHAVI Performing Organization Address [facility]/ZIP Co de Phone Number [facility] [place] [address] * (ABNORMAL) Differential, Automated (09/15/2018 3:44 AM EDT) Neutrophil % 64.7 % [facility] Neutrophil Absolute 7.24(H) 1.70 - 6.10 x10(3)/mc L [facility] Lymph % 21.6 % [facility] Lymphocytes Abs 2.4 0.9 - 3.2 x10(3)/mc L [facility] Monocyte % 10.8 % [facility] Monocyte Abs 1.2(H) 0.3 - 0.9 x10(3)/[facility] LABORATORY Eos % 0.2 % [facility] Eosinophils Abs 0.0 0.0 - 0.4 x10(3)/[facility] LABORATORY Basophil % 0.4 % [facility] Baso Absolute 0.0 0.0 - 0.1 x10(3)/[facility] LABORATORY Immature Gran % 2.30 % [facility] Comment: Immature granulocytes(IG's)percentage and absolute count will include metamyelocytes, myelocytes, and promyelocytes. Blood smears from CBCs yielding IG's will be scanned manually for concordance. If this scan disagrees with the automated IG or if promyelocytes are noted, a manual differential will be performed. Immature Gran Absolute 0.26(H) 0.00 - 0.04 x10(3)/[facility] LABORATORY Blood specimen (specimen) 09/15/2018 3:44 AM EDT 09/15/2018 4:18 AM EDT Narrative Resulting Agency Comment Spec In Lab Ori Santos MD HEMATOLOGY ORDERABLE S [facility] [place] [address] * (ABNORMAL) Hemogram (09/15/2018 3:44 AM EDT) White Blood Cell 11.2(H) 4.0 - 9.5 x10(3)/[facility] LABORATORY Red Blood Cell 3.05(L) 4.00 - 5.21 x10(6)/[facility] LABORATORY Hemoglobin 9.6(L) 11.7 - 15.5 gm/dL [facility] Hematocrit 29.5(L) 35.7 - 45.8 % [facility] Mean Cell Volume 96.7(H) 82.6 - 94.4 fL [facility] Mean Cell Hemoglobin 31.5 27.1 - 32.0 pg [facility] Mean Cell Hemoglobin Concentration 32.5 31.7 - 35.0 gm/dL [facility] Platelet 244 145 - 357 x10(3)/mc L [facility] RDW Standard Deviation 50.8(H) 37.0 - 46.0 fL [facility] RDW coefficient of variation 14.3(H) 11.5 - 14.1 % [facility] Mean Platelet Volume 10.9 7.6 - 12.9 fL [facility] NRBC% auto 0.0 % [facility] NRBC Absolute 0.000 0.000 - 0.000 x10(3)/mc L [facility] Blood specimen (specimen) 09/15/2018 3:44 AM EDT 09/15/2018 4:18 AM EDT Narrative Resulting Agency Comment Spec In Lab Ori Santos MD HEMATOLOGY ORDERABLE S Performing Organization Address City/[facility]/ZIP Co de Phone Number [facility] [place] [address] * Prothrombin Time (09/15/2018 3:44 AM EDT) Prothrombin Time 12.0 9.4 - 12.5 sec [facility] International Normalization Ratio 1.0 [facility] Comment: An INR <2.0 indicates [...] MD HEMATOLOGY ORDERABLE S Performing Organization Address City/[facility]/ZIP Co de Phone Number [facility] [place] [address] * (ABNORMAL) Basic Metabolic Panel (non-fasting) (09/15/2018 3:44 AM EDT) Glucose 135 65 - 199 mg/dL [facility] Comment:Diabetes: >=200 mg/d L plus symptoms Blood Urea Nitrogen 18 8 - 18 mg/dL [facility] Creatinine 0.74 0.70 - 1.20 mg/dL [facility] Sodium 142 135 - 145 mmol/L [facility] Potassium 3.6 3.5 - 5.0 mmol/L [facility] Comment: Please note: ??Patients with WBC >100,000 may have falsely elevated Potassium levels. ??For accurate Potassium quantification in these patients send serum separator tube (gold top) for subsequent determinations. ??Contact the Clinical Chemistry Laboratory if there are any questions. Chloride 113(H) 98 - 107 mmol/L [facility] Carbon Dioxide 20(L) 22 - 31 mmol/L [facility] Anion Gap 9 5 - 15 mmol/L [facility] Calcium 7.9(L) 8.5 - 10.5 mg/dL [facility] Est Glomerular Filtration Rate 94 >=60 mL/min/1. 73 m?? [facility] Comment: The eGFR was calculated using the CKD-EPI equation. As with all creatinine based estimates of kidney function, eGFR values calculated with the CKD-EPI equation are not accurate in patients with acute kidney failure, extremes of body mass or the acutely ill. http://[employer]/[facility] CITYnkf eGFR 109 >=60 mL/min/1. 73 m?? [facility] Comment: The eGFR was calculated using the CKD-EPI equation. As with all creatinine based estimates of kidney function, eGFR values calculated with the CKD-EPI equation are not accurate in patients with acute kidney failure, extremes of body mass or the acutely ill. http://[employer]/[facility] [place]nk[facility] Blood specimen (specimen) 09/15/2018 3:44 AM EDT 09/15/2018 4:18 AM EDT Narrative Resulting Agency Comment Spec In Lab Javad Urban MD CHEMISTRY ORDERABLES Performing Organization Address [facility] de Phone Number [facility] [place] [address] * POCT Glucose (09/14/2018 9:52 PM EDT) Glucose, POC 124 65 - 199 mg/dL [facility] Comment: Supplemental ranges: <140 mg/dL before meals <180 mg/dL all other times of the day Blood specimen (specimen) 09/14/2018 9:52 PM EDT 09/14/2018 9:52 PM EDT Javad Urban MD POINT OF CARE TEST O RDERABLES Performing Organization Address [facility] de Phone Number [facility] [place] [address] * Film Library- Storage Only MR Head (09/13/2018 12:10 AM EDT) Narrative [facility] - 09/15/2018 10:49 AM EDT This exam is auto-finalizing. It's purpose is for storage only. Javad Urban MD IMG FILM LIBRARY ORD ERABLES Performing Organization Address [facility] de Phone Number [place], [place] * Film Library- Storage Only Ultrasound Study (09/13/2018 12:05 AM EDT) Narrative [facility] - 09/15/2018 10:47 AM EDT This exam is auto-finalizing. It's purpose is for storage only. Javad KINGG FILM LIBRARY ORD ERABLES Performing Organization Address [facility] de Phone Number [place], [place] * Film Library- Storage Only DX Chest (09/13/2018 12:00 AM EDT) Narrative [facility] - 09/15/2018 10:46 AM EDT This exam is auto-finalizing. It's purpose is for storage only. Javad Urban MD IMG FILM LIBRARY ORD ERABLES [facility] [place], [place] documented in this encounter Visit Diagnoses [...] Discontinued, Routine 0931 (Given - Provider: Mai Boes RN) 0922 (Given - Provider: Mai Bose [...] Routine documented in this encounter Care Teams Mason Tender Relationship Specialty Start Date End Date None None PCP - General 09/14/18 09/30/18 documented as of this encounter
--- OUTSIDE RECORDS SUMMARY | 2024-07-08 18:52 | XMS_ITS | Encounter Summary ---
Author Organization [facility] Address [facility] [place] [address] Care Team Providers Care Admissions Counselor Name Role Phone Yamile De Leon APRN Primary Care Provider [phone] Reason for Visit * Reason Onset Date Comments Questions 10/27/2018 Encounter Details Date Type Department Care Team (Late st Contact Info) Description 10/27/2018 Telephone [place] [id number] Aparna Reed MD [facility] [place] [address] Questions Social History Tobacco Use Types Packs/Day [...] was the Surgeon?Brianna Best call back number: [phone] Best time to call back between 8:00 am & 5:00 pm: anytime Can we leave a message? yes What is the question: questions about her cast? Can she go into an air cast now? The cast she is innow are too heavy. She would like to transfer of care to [facility] sooner rather than later due to transportation issues. documented in this encounter Plan of Treatment Not on file documented as of this encounter Visit Diagnoses Not on filedocumented in this encounter Care Teams Admissions Counselor Relationship Specialty Start Date End Date Yamile De Leon APRN PCP - General Family Medicine 10/01/18 11/19/23 documented as of this encounter
--- OUTSIDE RECORDS SUMMARY | 2024-07-08 18:52 | XMS_ITS | Encounter Summary ---
Author Organization [facility] Address [facility] [place] [address] Care Team Providers Care Flow Worker Name Role Phone Yamile De Leon CARLOS Primary Care Provider [phone] Encounter Details Date Type Department Care Team (Latest Contact Info) Description 10/01/2018 8:59 AM EDT - 10/01/2018 11:59 PM EDT Hospital Encounter XRay at [address] [place] [address] Javad Urbna MD [facility] [address] S/P ORIF bilateral foot fractures, 09/16/18 (Gitajn) [...] (Gitajn) documented in this encounter Care Teams Flow Worker Relationship Specialty Start Date End Date Yamile De Leon CARLOS PCP - General Family Medicine 10/01/18 11/19/23 documented as of this encounter
--- OUTSIDE RECORDS SUMMARY | 2024-07-08 18:53 | XMS_ITS | Encounter Summary ---
Author Organization [facility] [place] [address] Care Team Providers Care Dietitian Name Role Phone Unavailable Primary Care Provider Unavailabl e Encounter Details Date Type Department Care Team (Late st Contact Info) Description 09/13/2018 Ancillary Procedure Radiology Library at [facility] [place] [address] Social History Tobacco Use Types Packs/Day Years [...] Urban MD IMG FILM LIBRARY ORD ERABLES [facility] [place] documented in this encounter Visit Diagnoses Not on filedocumented in this encounter
--- OUTSIDE RECORDS SUMMARY | 2024-07-08 18:53 | XMS_ITS | Encounter Summary ---
Author Organization [facility] [place] [address] Care Team Providers Care Master Ocean Name Role Phone Unavailable Primary Care Provider Unavailabl e Encounter Details Date Type Department Care Team (Late st Contact Info) Description 09/13/2018 12:10 AM EDT Ancillary Procedure Radiology Library at [facility] [place] [address] Social History Tobacco Use Types Packs/Day Years [...]
--- OUTSIDE RECORDS SUMMARY | 2024-07-08 18:53 | XMS_ITS | Encounter Summary ---
Author Organization [facility] [place] [address] Care Team Providers Care Tool Programmer Name Role Phone Unavailable Primary Care Provider Unavailabl e Encounter Details Date Type Department Care Team (Late st Contact Info) Description 09/12/2018 Ancillary Procedure Radiology Library at [facility] [place] [address] Aprana Reed MD [facility] [place] [address] Social History Tobacco Use Types Packs/Day Years [...] Reed MD IMG FILM LIBRARY ORD ERABLES [place], [place] documented in this encounter Visit Diagnoses Not on filedocumented in this encounter
--- OUTSIDE RECORDS SUMMARY | 2024-07-08 18:53 | XMS_ITS | Encounter Summary ---
Author Organization [facility] [place] [address] Care Team Providers Care Estimating Manager Name Role Phone None Primary Care Provider Unavailabl e Encounter Details Date Type Department Care Team (Late st Contact Info) Description 09/14/2018 Orders Only [place] [address] Josseline Macedo MD Multiple closed fractures of [...] below. ? Electronically signed by: Sheila Joaquin [facility] ([phone]), at 09/28/2018 4:31 PM --------ORIGINAL REPORT -------- [...] below. ? Electronically signed by: Sheila Joaquin [facility] ([phone]), at 09/14/2018 4:41 PM Impressions 09/14/2018 4:41 [...] below. ? Electronically signed by: Sheila Joaquin [facility] ([phone]), at 09/14/2018 4:41 PM Narrative 09/14/2018 4:41 [...] number below. Electronically signed by: Sheila Joaquin [facility]([phone]), at 09/14/2018 4:41 PM Javad Urban MD IMG OUTSIDE INTERPRE TATION ORDERABLES documented in this encounter Visit Diagnoses Diagnosis Multiple closed fractures of left foot, initial encounter Multiple closed fractures of foot, initial encounter documented in this encounter Care Teams Estimating Manager Relationship Specialty Start Date End Date None None PCP - General 09/14/18 09/30/18 documented as of this encounter
--- OUTSIDE RECORDS SUMMARY | 2024-07-08 18:53 | XMS_ITS | Encounter Summary ---
Author Organization [facility] Address [facility] [place] [address] Care Team Providers Care Quantitative Equity Head Name Role Phone None Primary Care Provider Unavailabl e Encounter Details Date Type Department Care Team (Latest Contact Info) Description 09/14/2018 2:45 PM EDT Ancillary Procedure Radiology Library [place] [facility] [place] [address] Javad Urban MD [facility] [place] [address] Multiple closed fractures of foot, initial encounter [...] Electronically signed by: Sheila Joaquin [facility] ([phone]), at 09/28/2018 4:31 PM --------ORIGINAL REPORT -------- [...] Electronically signed by: Sheila Joaquin [facility] ([phone]), at 09/14/2018 4:41 PM Impressions 09/14/2018 4:41 [...] Electronically signed by: Sheila Joaquin [facility] ([phone]), at 09/14/2018 4:41 PM Narrative 09/14/2018 4:41 [...] number below. Javad Urban MD IMG OUTSIDE [facility] TATION ORDERABLES documented in this encounter Visit Diagnoses Diagnosis Multiple closed fractures of foot, initial encounter documented in this encounter Care Teams Quantitative Equity Head Relationship Specialty Start Date End Date None None PCP - General 09/14/18 09/30/18 documented as of this encounter
--- OUTSIDE RECORDS SUMMARY | 2024-07-08 18:53 | XMS_ITS | Encounter Summary ---
Author Organization [facility] Address [facility] [address] Care Team Providers Care Merchandise Planning Manager Name Role Phone None Primary Care Provider Unavailabl e Reason for Visit * Auth/Cert Specialty Diagnoses / Procedures Referred By Contac t Referred To Contact Diagnoses Fracture of unspecified tarsal bone(s) of unspecified foot, initial encounter for closed fracture CLOSED HEAD INJURY, FOOT BONE FX'S -CONFUSED Procedures EMERGENCY IPI Referral ID Status Reason Start Date Expiration Date Visits Re quested Visits Authorized [id number] 1 1 Encounter Details Date Type Department Care Team (Late st Contact Info) Description 09/16/2018 10:16 AM EDT Anesthesia Event [place] [address] Ron Duong MD [facility] [place] [address] Chauncey Castro MD [facility] [place] [address] Anesthesia Record Procedure Summary Procedure Name Responsible [...] 1032; metacarpal vein (top of hand), left; kigy-zhd-boslnw catheter system; 20 gauge; Ron Duong; removed [...] Duong MD - 09/16/2018 4:[address] [facility] Department of Anesthesiology Post-procedure Note Patient: Jenae La Procedure Summary Date: 09/16/18 Room / [facility] Anesthesia Start: 1016 Anesthesia [...] All Anesthesia Providers: Anesthesiologist: Ron Duong MD [employer] ENGINEER: Lisa Birmingham CRNA Vitals Value Taken Time BP 135/75 09/16/2018 2:39 PM Temp 36.2 ??C (97.2 ??F) 09/16/2018 2:39 PM Pulse 61 09/16/2018 2:41 PM Resp 15 09/16/2018 2:41 PM SpO2 97 % 09/16/2018 2:56 PM Pain Level 9 09/16/2018 2:39 PM Vitals shown include unvalidated device data. Patient [facility]: [facility] Level of Consciousness: Awake and [...] Chlorhexidine Skin Anesthetic: Lidocaine 1% dose: 6 U-tcwmd-uzlaq 21 10 cm Ultrasound Guided: Live and [...] Single-shot BUpivacaine 0.25%, 40 mL no complications Resident/[employer] SYSTEM[employer] ENGINEER:: Delvin Byrd MD Fellow:: Chauncey Castro MD [...] 12.0 09/15/2018 No results found for: TSH, R2BBCXE, TT4, THYROIDAB No results found for: HA1C Plan is for GA with ETT, standard ASA monitors, and adequate IV access. Bilateral pop-sciatic, saphenous nerve blocks for post op pain control Region - Other Informed Consent: Anesthetic plan and risks discussed with patient. Use of blood products discussed with patient who consented to blood products. Plan discussed with [employer] ENGINEER and attending. PAT Clinic Note documented in [...] ??Chlorhexidine Skin Anesthetic: ??Lidocaine 1% dose: ??6 I-paize-yxthg 21 10 cm Ultrasound Guided: ??Live and [...] BUpivacaine 0.25%, 40 mL no complications ?? Resident/[employer] ENGINEER:: ??Delvin Byrd MD Fellow:: ??Chauncey Castro MD Attending Physician:: ??Ron Duong MD 20mL's each side Ron Duong MD [employer] [facility] documented in this encounter Visit Diagnoses [...] Starting on Gloria 09/16/18 at 1049, Until Gloira 09/16/18 at 1351, Administer over 30 Minutes, [...] mg documented in this encounter Care Teams Merchandise Planning Manager Relationship Specialty Start Date End Date None None PCP - General 09/14/18 09/30/18 documented as of this encounter
--- OUTSIDE RECORDS SUMMARY | 2024-07-08 18:53 | XMS_ITS | Encounter Summary ---
Author Organization [facility] [place] [address] Care Team Providers Care Communicable Disease Specialist Name Role Phone None Primary Care Provider Unavailabl e Encounter Details Date Type Department Care Team (Late st Contact Info) Description 09/14/2018 [place] [id number] Josseline Macedo MD Social History Tobacco Use [...] center phone call from Dr. Florentino at [facility] regarding patient who is an inpatient there. [...] did have a head CT again w [facility] we do not have in our system but per report was negative. She does have abrasions on her head.Dr. Peña and orthopedic provider at [facility] reports that he has taken care of the patient on an outpatient basis and that she is now back to her baseline. Patient's past medical history is notable for COPD, LORRI on CPAP, diabetes on insulin, chronic opioid use currently on Lovely per report, fibromyalgia Patient is not on [...] syncope vs seizure- on empiric keppra per [facility] neurology 2. PNA - per report CT [...] on filedocumented in this encounter Care Teams Communicable Disease Specialist Relationship Specialty Start Date End Date None None PCP - General 09/14/18 09/30/18 documented as of this encounter
--- OUTSIDE RECORDS SUMMARY | 2024-07-08 18:53 | XMS_ITS | Encounter Summary ---
Author Organization [facility] [place] [address] Care Team Providers Care Junior Network Administrator Name Role Phone Unavailable Primary Care Provider Unavailabl e Encounter Details Date Type Department Care Team (Late st Contact Info) Description 09/13/2018 12:05 AM EDT Ancillary Procedure Radiology Library at [facility] [place] [phone] Social History Tobacco Use Types Packs/Day Years [...]
--- OUTSIDE RECORDS SUMMARY | 2024-07-08 18:53 | XMS_ITS | Encounter Summary ---
Author Organization [facility] Address [facility] [place] [address] Care Team Providers Care Machine Tender Name Role Phone Unavailable Primary Care Provider Unavailabl e Encounter Details Date Type Department Care Team (Late st Contact Info) Description 09/12/2018 12:05 AM EDT Ancillary Procedure Radiology Library at [facility] [place] [phone] Aparna Reed MD [facility] [place] [address] Social History Tobacco Use Types Packs/Day Years [...] Reed MD IMG FILM LIBRARY ORD ERABLES [facility] [place] documented in this encounter Visit Diagnoses Not on filedocumented in this encounter
--- OUTSIDE RECORDS SUMMARY | 2024-07-08 18:53 | XMS_ITS | Encounter Summary ---
[place] [address] Care Team Providers Care Inseminator Name Role Phone Emma Miramontes APRN Primary Care Provider [phone] Reason for Visit * Reason Comments Skin Problem Encounter Details Date Type Department Care Team (Late st Contact Info) Description 09/24/2011 4:15 PM EDT Office Visit Dermatology [address] [place] [address] [address] [place] [address] Hammad Fields MD [address] [facility] [place] [address] Psoriasiform dermatitis (Primary Dx) Social History Tobacco [...] in consultation by Emma Miramontes from the [employer]. The patient states that her daughter has [...] disorders documented in this encounter Care Teams Inseminator Relationship Specialty Start Date End Date mEma Miramontes APRN PCP - General 04/16/10 12/10/17 documented as of this encounter
--- OUTSIDE RECORDS SUMMARY | 2024-07-08 18:53 | XMS_ITS | Encounter Summary ---
Author Organization [facility] Address [facility] [place] [place] [address] Care Team Providers Care Hose Finisher Name Role Phone None Primary Care Provider Unavailabl e Reason for Visit * Auth/Cert Specialty Diagnoses / Procedures Referred By Contac t Referred To Contact Diagnoses Fracture of unspecified tarsal bone(s) of unspecified foot, initial encounter for closed fracture CLOSED HEAD INJURY, FOOT BONE FX'S -CONFUSED Procedures EMERGENCY IPI Referral ID Status Reason Start Date Expiration Date Visits Re quested Visits Authorized [id number] 1 1 Encounter Details Date Type Department Care Team (Late st Contact Info) Description 09/16/2018 9:58 AM EDT - 09/16/2018 12:57 PM EDT Surgery [place] [id number] Aparna Reed MD [facility] [place] [address] ORIF METATARSAL FX, EACH (WRVU 7.44) Social [...] Jenae La Patient Age: 53 y.o. Language: Lao Race: White Ethnicity: Not nor Admit date: 09/14/2018 Discharge date and time: 09/20/2018 Attending Physician: Javad Urban MD Discharge Physician: Javad Urban MD Follow-up Recommendations for Providers: See discharge instructions for additional details. Future Appointments Date Time Provider Department Center 10/01/2018 10:00 AM [facility] DX ROOM 1 Xray [facility] Rad Clin 10/01/2018 11:00 AM Mary Ellison PA Leb Ortho 3C [facility] 11/08/2018 1:00 PM Abdirahman Enamorado MD Leb Neuro [facility] Inpatient Provider Contact Information: Javad Urban MD Orthopedics: [phone] After hours and weekends, call [facility] Trade Union Official, , and have the Orthopedic resident paged. [...] the orthopaedics service as a transfer from [facility] for operative management of bilateral complex [...] multiple times, leading her to present to [facility] on 09/12/2018 for evaluation. ?? Initial work-up at [facility] revealed sepsis secondary to suspected community- acquired pneumonia, mild acute exacerbation of COPD, a closed head injury with postconcussive syndrome, multiple bilateral foot fractures, and MANUEL, resulting in hospital admission. Upon presentation to the [facility] ED, her and herjake reported instances [...] no active bleeding observed. General Surgery at [facility] evaluated the patient, and felt no further action was required besides outpatient follow up. ?? Upon arrival to [facility], Mrs. La reports moderate pain in her [...] Orthopedic Surgery Service as a transfer from [facility] for definitive operative management of bilateral [...] demonstrated seizure-like activity during her presentation at [facility], thus would recommend consulting Neurology to determine??the need for an EEG to rule out sub-clinical seizure and determine the need to continue keppra. The patient's revised cardiac risk index is a Class I risk (0 points) with a 3.9% 30 day risk of , OH, or cardiac arrest. No further cardiac work [...] a transfer to the orthopedic service from [facility] for bilateral complex foot fractures. ?? [...] Electronically signed by: TAMMIE Mackay [facility] ([phone]), at 09/14/2018 4:41 PM Xr Foot Min [...] Electronically signed by: Sheila Joaquin [facility] ([phone]), at 09/16/2018 3:47 PM Pending Studies and Lab Data at Discharge: * No orders in the log * Transfusions: No Discharge Conditions/Prognosis: Stable, awake, and alert. Mobilizing as noted above, pain controlled on oral medications. Discharge to: Home HOME HEALTH CARE AGENCY: ??[facility] ?? PHONE: [phone] FAX: [phone] Updated Allergies/ADRs: Allergies Allergen Reactions ??? Sulfa [...] bowel movement. You can also take an jimp-kcc-maoazjh medication, Miralax if needed to combat constipation. [...] skin and wound problems. Call your doctor ([phone]) if you develop: 1. Fever greater than [...] 1. You will have follow-up appointments at [facility] as indicated in Future Appointment and Orders. You will have an xray prior to those appointments so please come to Radiology, desk 3T, 1 hour BEFORE your appointment for those x-rays. Future Appointments Date Time Provider Department Center 10/01/2018 10:00 AM [facility] DX ROOM 1 Xray [facility] Clin 10/01/2018 11:00 AM Mary Ellison PA Leb Ortho 3C [facility] 11/08/2018 1:00 PM Abdirahman Enamorado MD Leb Neuro [facility] If you have questions or concerns: [...] Provider Department Dept Phone 10/01/2018 10:00 AM [facility] DX ROOM 1 XRay at [place] Arrive at: Compensation Agent Area [phone] Please go to Compensation Agent Area 3T ([place] Location). 10/01/2018 11:00 AM Mary Ellison PA Orthopaedics at [place] Arrive at: Compensation Agent Area 3C [phone] 11/08/2018 1:00 PM Abdirahman Enamorado MD Neurology at [place] Arrive at: Compensation Agent Area [phone] Future Orders Complete By Expires Durable Medical Equipment Order [EQ148 Custom] As directed Process Instructions: Scheduling Instructions: Comments: Non weight bearing bilateraly Questions: Name/Description of requested item: Drop arm commode Size requested: 20 Vendor Name/Contact information: [facility] Durable Medical Equipment Order [EQ148 Custom] As [...] Instructions: Scheduling Instructions: Comments: [address] [facility] [phone] (home) No relevant phone numbers on file. Diagnosis:Bilateral fractures both feet requiring surgery Non weight barring Patient's: Hgt: 5'1 Wgt: 183 VENDOR: [employer] Ordering: Drop arm commode needed ARABELLA is required for discharge Questions: Name/Description of requested item: Drop arm Commode Size requested: Standard Vendor Name/Contact information: [employer] Referral to Home Health - at DISCHARGE [[id number] CPT(R)] As directed Process Instructions: Scheduling Instructions: Comments: DOCUMENTATION FOR VNA SERVICES (INCLUDING THOSE PATIENTS WITH MEDICARE COVERAGE REQUIRING HOME VNA SERVICES AND/OR HOSPICE SERVICES) PATIENT'S LOCATION: [address] [facility] [address] (home) Cell: No relevant phone numbers on file. Supervisory Examiner's Name: herself with 's assist In discussion with the attending physician, it is certified that this patient is under their care and that they, or a Nurse Practitioner,Clinical Nurse specialist or Physician Workers' Compensation Magistrate who is working directly with them, had [...] continue rehab for managing ADL's. Eval for SPINNING BATH PATROLLER: HOME HEALTH CARE AGENCY: [facility] PHONE: [phone] FAX: [phone] Start of care: 09/21/18 FOR MEDICARE ONLY: [...] this patient's PCP: LILLY Gaitan [address] [facility] [address] All A agencies which cover the area of patient's residence have been reviewed, either verbally irasema writing, and patient/family have chosen the home health care agency noted Questions: Agency name and contact information: [facility] Patient location post discharge: home What [...] the wheelchair. Questions: Vendor Name/Contact information: [facility] Primary Care Provider: LILLY Gaitan [phone] Discharge References/Attachments None documented in this encounter [...] bowel movement. You can also take an gutq-gwf-yzhqoyb medication, Miralax if needed to combat constipation. [...] skin and wound problems. Call your doctor ([phone]) if you develop: 1. Fever greater than [...] 1. You will have follow-up appointments at [facility] as indicated in Future Appointment and Orders. You will have an xray prior to those appointments so please come to Radiology, desk 3T, 1 hour BEFORE your appointment for those x-rays. Future Appointments Date Time Provider Department Center 10/01/2018 10:00 AM [facility] DX ROOM 1 Xray Leb [...] commode and the slide board . This promotion writer called several places andfound slide board at [facility] and [facility] as well that is being serviced [...] discharge planning. Ivette Álvarez RN CM Pager [phone] * Ivette Álvarez RN - 09/20/2018 12:52 PM EDT The patient/sales representative raw fibers has been provided a list of /DME vendors which serve their preferred geographic area. A letter describing our affiliations was reviewed with them and they were educated about their right to choose where referrals are placed. Patient requests referral to [facility] Expected date of discharge: 09/20/18 Referral routed to the Textile Pin Worker for matching with agency/vendor and to provide any required information. Ivette Álvarez [facility] Beeper #[phone] * Ivette Álvarez RN - 09/20/2018 11:14 [...] from [facility] is checking with [facility] office to make sure items are available for them. Plan: CM will continue to follow for coordination of care and to facilitate discharge planning. ? Ivette Álvarez RN CM Pager [phone] * Ori Santos MD - 09/20/2018 5:39 [...] Pain well controlled. Plan to discharge home [facility] per PT recommendations. Discharge likely today, dependent on DME delivery to [facility]. Activity: NWB BLE. Strict elevation in splints. Closure: Sutures (remove 10-14 days) Dressing: DSD, splints. Drain: None Anticoagulation: Lovenox for 30 days Antibiotics: Empiric Ceftriaxone/Azithromycin for suspected CAP Consults: Medicine, Neuro Dispo: Like home today Follow-up: As scheduled Ori Santos MD 09/20/2018 Future Appointments Date Time Provider Department Center 10/01/2018 10:00 AM [facility] DX ROOM 1 Xray Leb [...] with Med Team re pt DC today( [id number]). Pt to dc Thursday * Sanket Freeman [...] Time Provider Department Center 10/01/2018 10:00 AM [facility] DX ROOM 1 Xray Leb Rad Clin 10/01/2018 11:00 AM Mary Ellison PA Leb Ortho [address] [place] [address] CLIN Associated attestation - Aparna Reed MD [...] a transfer to the orthopedic service from [facility] for bilateral complex foot fractures. INTERVAL [...] L Elbow flexion 5/5 R, 5/5 L Health And Physical Education Teacher LE: Deferred due to her pain Sensation: [...] a transfer to the orthopedic service from [facility] for bilateral complex foot fractures. Patient [...] - PGY-3 General Neurology Consults Team Pager #[phone] 09/17/18 Associated attestation - Jose Swan MD - 09/17/2018 4:41 PM EDT I have seen and examined Jenae La with the neurology team on 09/17/2018 and agree with the assessment and plan as below. Face twitching. 53 Y F with history of DJD spine, DM, fibromyalgia being seen by Neurologist at [facility] Episodes of left sided facial twitching Stopped taking gabapentin recently due to side effects. Low suspicion for these being seizures. AEDs not needed at this time Recommended lower doses of gabapentin which she doesn't wish to take. Outpatient neurology followup Jose Swan MD Department of Neurology [facility] * Sanket Freeman MD - 09/17/2018 6:04 [...] Department of Orthopaedics 09/17/18 * Davin Ann, AIRPORT OPERATIONS MANAGER - 09/16/2018 11:22 PM EDT Pt refused [...] 8:31 AM EDT Internal Medicine Consult Note (#[id number]) Progress Note Patient info: Name: Jenae La : 1965 PCP: LILLY Gaitan PCP phone number: [phone] Date of Admission: 09/14/2018 ( Hospital Day [...] Orthopedic Surgery Service as a transfer from [facility] for operative management of bilateral complex [...] ??? [Jul] acetaminophen 1,000 mg Oral Q8H [facility] ### ??? [Jul] levETIRAcetam 1 g Intravenous [...] in the last 7068 hours. Invalid input(s): [id number] Heme: No results for input(s): LDH, HAPTOGLOBIN, URICACID in the last 168 hours. ABG: ABG (Arterial Blood Gas) No results found for: PHART, PO2ART, VHW9YDW, ZKX8JSU Microbiology: Site Date and Time Obtained Result [...] 6.?Fracture of the lateral cuboid 7.?Minimally displaced Omtley A??fracture of the distal fibula 8.?Second and [...] Orthopedic Surgery Service as a transfer from [facility] for definitive operative management of bilateral [...] demonstrated seizure-like activity during her presentation at [facility], thus would recommend consulting Neurology to determine the need ace EEG to rule out sub-clinical seizure and determine the need to continue keppra. The patient's revised cardiac risk index is a Class I risk (0 points) with a 3.9% 30 day risk of , OH, or cardiac arrest. No further cardiac work [...] Lyon MD, PGY-3 09/16/2018 Medicine Consult # [id number] Associated attestation - Chris Stahl DO - [...] today vs tomorrow pending scheduling availability. Appreciate [facility] medicine recs. - Neuro consult today - Remain NPO for possible OR today - UA today - NWB B/l LE - Pain control: Oral multimodal pain medication - Discharge planning: likely rehab per PT - F/u TBD Sanket Freeman MD PGY-2 Orthopaedics * Davin Ann, AIRPORT OPERATIONS MANAGER - 09/15/2018 11:00 PM EDT Pt had Nausea, NIV held this evening. * Kathrin Madsen RN - 09/15/2018 2:05 PM EDT Based on discussions with the multi-disciplinary healthcare team, the patient would benefit from snf/swing/acute level of care at discharge. ?? I have met with the patient/sales representative raw fibers to discuss discharge planning needs. I have provided the [facility], Office of Care Management letter from the Xray Tech pertaining to rehab referrals. I have also provided a letter describing our affiliations within the [facility] and educated them about their right to choose where referrals are placed. ?? I reviewed the different levels of rehab including SNF, swing, acute and LTAC with the patient/sales representative raw fibers. ?? The patient/sales representative raw fibers has been provided a list of facilities within their preferred geographic area. ?? I have requested that the patient/sales representative raw fibers provide at least three choices for referral. ?? The patient/sales representative raw fibers have requested referrals to: 2.[facility] [address] [place] [address] ?? [phone] [facility] [address] [place] [address] ?? [phone] ?? Expected date of discharge: 09/17/18 Note routed to Textile Pin Worker who will communicate referrals to facilities [...] vs rehab per PT - F/u TBD ONY ZAMORA MD PGY-4 Orthopaedics * Clotilde Godinez RCP - 09/15/2018 4:15 AM EDT Respiratory Therapy NIV Note NIV Settings: Resmed Vauto Resp: 18 SpO2: 95 % Laboratory: No results found for: PHART, LEL5GON, PO2ART, ZXL1RYV, BEART Assessment: Called to set pt up [...] Urban PCP: LILLY Gaitan PCP phone #: [phone] Chief Complaint: Foot pain History of Present Illness: Jenae La is a 53 y.o woman with HTN, HLD, Type II DM, LORRI on CPAP,fibromyalgia with chronic opioid use, and GERD who was admitted to the Orthopedic Surgery Service as a transfer from [facility] for operative management of bilateral complex foot fractures s/p trauma (dropping firewood on her feet) on the evening of 09/11/18 causing bilateral immediate pain, swelling, andbruising making it difficult to ambulate and leading to falls c/b striking her head multiple times.It was with these symptoms that she presented to [facility] on 09/12/18. During her initial presentation in the [facility] ED, the patient reported instances of trembling and fecal incontinence. She was noted to be confused with lip and unilateral arm twitching. CT head was negative. CT C-spine was negative. CTchest demonstrated 6.8mm ground glass nodule in the RUL and b/l ground glass opacities. An LP was performed for suspicion of meningitis that was reportedly negative, CSF cultures were reportedly negative. At [facility], she was found to have post-concussive [...] hours of admission. She was admitted to [facility] from 09/12/18 - 09/14/18. Upon arrival at [facility] on 09/15/18,the patient noted moderate bilateral pain [...] Illicits: Denies Living Situation: Lives with in [place] Vitals: Last value Range last 24 hrs [...] in the last 7068 hours. Invalid input(s): [id number] Heme: No results for input(s): LDH, HAPTOGLOBIN, [...] Orthopedic Surgery Service as a transfer from [facility] for definitive operative management of bilateral [...] demonstrated seizure-like activity during her presentation at [facility], thus would recommend consulting Neurology to determine the need for an EEG to rule out sub- clinical seizure and determine the need to continue keppra. The patient's other chronic medical conditions remains stable at this time. See rest of plan below: The patient's revised cardiac risk index is a Class I risk (0 points) with a 3.9% 30 day risk of , [place], or cardiac arrest. No further cardiac work [...] Internal Medicine, PGY- 3 Medicine Consult Pager #[phone] Associated attestation - Chris Stahl DO - [...] and plan include the following: Ms. Jenae aL is a 53-year-old female who presented as a transfer from [facility] for operative management of the complex foot fractures due to trauma on 09/11/2018. Her hospital course at [facility] was complicated by an ICU admission due to community-acquired pneumonia, as well as possible focal seizures and postconcussive syndrome. Here at [facility] patient has been clinically stable from pulmonary [...] Foot Pain History of Present Illness: Jenae aL is a 53 y.o. female with history pertinent for insulin-dependent diabetes type 2, fibromyalgia, chronic opiate use, and LORRI on CPAP who presents as a direct admit to the orthopaedics service as a transfer from [facility] for operative management of bilateral complex [...] multiple times, leading her to present to [facility] on 09/12/2018 for evaluation. Initial work-up at [facility] revealed sepsis secondary to suspected community- acquired pneumonia, mild acute exacerbation of COPD, a closed head injury with postconcussive syndrome, multiple bilateral foot fractures, and MANUEL, resulting in hospital admission. Upon presentation to the [facility] ED, her and cristian reported instances [...] no active bleeding observed. General Surgery at [facility] evaluated the patient, and felt no further action was required besides outpatient follow up. Upon arrival to [facility], Mrs. La reports moderate pain in her [...] Situation: Lives with and multiple pets in [place], [place]. Review of Systems: As per HPI, [...] direct admit to the Orthopaedics service from [facility] for definitive management of bilateral complex [...] AM EDTAssociated Order(s): EEG AWAKE, ASLEEP, DROWSY [facility] Department of Neurology Inpatient EEG Report Name of the Patient: Jenae La Date of : 1965 Date of Service: 09/17/2018 Referring physician: Dr. Abdirahman Enamorado BRIEF HISTORY: Jenae La is a 53 y.o. patient with episodes of tremors at home and witnessed facial and arm twitching at [facility] (witnessed by nursing). Also has hit [...] channel digitized electroencephalogram was performed in the [facility] Clinical Neurophysiology Laboratory. The 10/20 international system of electrode placement was used and bipolar and referential electrode montages were recorded. In addition to EEG the patient was monitored for EKGand lateral/vertical eye movements. Video was recorded during the session. The duration of the recording was 30 minutes. RN [facility]'S REPORT: Performed by: RR/CM Patient was not [...] Angel MD Clinical Neurophysiology Fellow Personal Pager #[phone] Epilepsy Neurology #[phone] Neurology Attending I have personally reviewed the EEG, and I agree with the details as written. The above report was formulated in discussion with me at the time of EEG reading, and I agree with it as documented. Jose Singer MD Department [place] [address] Pager: [phone], #[phone] Email: [email or web address] documented in this encounter Miscellaneous Notes * [...] quit. She is not interested in receiving [facility] Tobacco Cessation packet. A: Pt refused consult. P: Encouraged patient to reach out to PCP for nicotine inhaler prescription. Dimitrios Valle, MSN, RN-, [facility] Tobacco Aircraft Fueler [facility] Pager #[phone] * Plan of Care - Stacey Duenas [...] I have spoken with Thalia from the [place] office and she states shecannot get this DME on a Thu afternoon for Sat am but can do this for a Mon d/c. Pt states there jessy branch in [facility] that she has used in the past. Pt requests a referral to [facility] for an RN for skilled assessments, PT, OT, and steve for SPINNING BATH PATROLLER. Pt requests Ofelia Barger if possible. I [...] NO xxx Lauren Perales, PT, DPT Pager: [phone] Inpatient Physical Therapy 2017 PT Evaluation Code [...] (Group);Wheelchair Training/Management (Group) Bed Mobility Assessment/Treatment Scoot/Bridge Eaton (Bed Mobility) conditional independence Foueyw-mg-Dvn Eaton (Bed Mobility) conditional independence Inc-cs-Ixqpkk Eaton (Bed Mobility) conditional independence Safety Issues (Bed Mobility) decreased use of legs for bridging/pushing Impairments (Bed Mobility) pain;ROM (range of motion) decreased Comment (Bed Mobility) incr time/effort to/from EOB but no physical assistance, NWB maintained throughout, good SLR b/l LEs Transfer Assessment/Treatment Bed-Chair Eaton (Transfers) supervision required;conditional independence (initial supervision progressing to ind) Cxs-Vxwzu-Iwg Assistive Device (Transfers) slide board Eaton (Toilet Transfers) supervision required;conditional independence Assistive Device [...] with assist, home with home health(PT) Pager: [phone] Ori Bates OT 09/17/2018 Occupational Therapy Rehabilitation [...] pain;ROM (range of motion) decreased;strength decreased Scoot/Bridge Eaton (Bed Mobility) conditional independence Krepyt-hg-Teh Eaton (Bed Mobility) conditional independence Ibc-nw-Fvpkoe Eaton (Bed Mobility) conditional independence Comment (Bed Mobility) Pt performeed bed mobility w/ increased time and pain. Transfer Assessment/Treatment Eaton (Toilet Transfers) supervision required;conditional independence Impairments (Transfers) pain;ROM (range of motion) decreased;strength decreased Gjp-Sehie-Duw Assistive Device (Transfers) slide board Bed-Chair Eaton (Transfers) supervision required;contact guard assist Comment (Transfers) [...] Body Dressing Assessment/Training Assistive Devices (LB Dressing) boat tester Position (LB Dressing) sitting Eaton Level (LB Dressing) conditional independence Impairments (LB Dressing) pain;ROM (range of motion) decreased;strength decreased Comment (LB Dressing) Pt donned pants independently, w/ slight increase in time. Toileting Assessment/Training Position (Toileting) sitting Eaton Level (Toileting) conditional independence Impairments (Toileting) ROM [...] a transfer to the orthopedic service from [facility] for bilateral complex foot fractures. Per discussion with the consulting provider, patient was initially admitted to [facility] for bilateral foot fractures. This was in the setting of multiple falls in the previous days leading up to her admission. She was also noted to strike her head multiple times during these falls. In conversation withthe patient's at [facility], there was some discussion of some [...] L Elbow flexion 5/5 R, 5/5 L Health And Physical Education Teacher LE: Deferred due to her pain Sensation: [...] Negative mcL Appearance UA Clear Clear Spec [place] UA 1.012 1.002 - 1.030 Color UA [...] a transfer to the orthopedic service from [facility] for bilateral complex foot fractures. Discussion with Jenae and her significant other about her initial presentation makes us less concerned for seizure activity. However, it is hard to say what the nurses at [facility] actually saw but they describe twitching [...] - PGY-3 General Neurology Consults Team Pager #[phone] 09/16/18 Associated attestation - German Gu III, [...] as documented. German Gu III, MD Pager: [phone] 7:42 AM 09/17/2018 * Op Note - Aparna Reed MD - 09/16/2018 2:02 PM EDT [facility] [place] Patient Name: Jenae La : [id number] MR#: [id number] Case Date: 09/16/2018 Surgeon: Surgeon(s) and Role: [...] 2nd metatarsal fracture, left 3rd metatarsal fracture, [id number] metatarsal fracture, left cuboid fracture. Procedure(s) (LRB): [...] the second tarsometatarsal joint. We used a pstro-bc-gednv clamp to reduce it, and then fixed [...] the articular surface. We then used a Stanwood to bring the impacted articular surface down [...] Reed MD - 09/16/2018 1:54 PM EDT [facility] [place]- Left foot This patient underwent bilateral procedures. This operative note is for the left foot. Patient Name: Jenae La : [id number] MR#: [id number] Case Date: 09/16/2018 Surgeon: Surgeon(s) and Role: [...] 2nd metatarsal fracture, left 3rd metatarsal fracture, [id number] metatarsal fracture, left cuboid fracture. ?? Procedure(s) [...] fractures and dislocations. She was seen at [facility] and transferred [place] [facility] [place] care. We discussed the risks [...] third metatarsal fracture was exposed using a Stanwood. A jarkj-ll-kikqm clamp was used to control the distal [...] toe extensors. Fracture was exposed using a Stanwood. A wxbzr-by-kflwe clamp was used to control the distal [...] Implant Name Type Inv. Item Serial No. Blue Leather Setter Lot No. LRB No. Used Action PIN,KWIRE,TROC 1 ED,NS,[id number] ([id number]) (AutoReq) - [id number] IMPLANTS PIN,KWIRE,TROC 1 ED,NS,[id number] ([id number]) (AutoReq) [facility] Right 1 Implanted and Explanted SCREW,CRTX,STAP,T8,2.4X16MM ([id number]) - [id number] IMPLANTS SCREW,CRTX,STAP,T8,2.4X16MM ([id number]) [facility] Right 1 Implanted SCREW,CRTX,STAP,T8,2.4X26MM ([id number]) - [id number] IMPLANTS SCREW,CRTX,STAP,T8,2.4X26MM ([id number]) [facility] Right 1 Implanted SCREW,CRTX,STAP,T8,2.4X22MM ([id number]) - [id number] IMPLANTS SCREW,CRTX,STAP,T8,2.4X22MM ([id number]) [facility] Right 1 Implanted SCREW,SLFTP,LCK,STAR,2.4X12MM ([id number]) - [id number] IMPLANTS SCREW,SLFTP,LCK,STAR,2.4X12MM ([id number]) [facility] Right 1 Implanted SCREW,LCK,STAP,STAR,2.4X6MM (3660749) - [id number] IMPLANTS SCREW,LCK,STAP,STAR,2.4X6MM (4056385) [facility] Right 1 Implanted SCREW,LCK,STAP,STAR,2.4X18MM ([id number]) - [id number] IMPLANTS SCREW,LCK,STAP,STAR,2.4X18MM ([id number])[facility] Right 1 Implanted SCREW,CRTX,STAP,STRDRV,2X9MM ([id number]) - [id number] IMPLANTS SCREW,CRTX,STAP,STRDRV,2X9MM ([id number])[facility] Right 1 Implanted SCREW,CRTX,STAP,STAR,2X24MM (6067266) - [id number] IMPLANTS SCREW,CRTX,STAP,STAR,2X24MM (2444005) [facility] Right 1 Wasted SCREW,CRTX,STAP,STAR,2X28MM ([id number]) - [id number] IMPLANTS SCREW,CRTX,STAP,STAR,2X28MM (6893196) [facility] Right 1 Implanted SCREW,CRTX,STAP,STAR,2X18MM ([id number]) - [id number] IMPLANTS SCREW,CRTX,STAP,STAR,2X18MM (6867018) [facility] Right 1 Implanted SCREW,LCK,STAP,STAR,2X14MM (5974002) - [id number] IMPLANTS SCREW,LCK,STAP,STAR,2X14MM ([id number]) [facility] Right 1 Implanted SCREW,LCK,STAP,STAR,2X18MM ([id number]) - [id number] IMPLANTS SCREW,LCK,STAP,STAR,2X18MM ([id number]) [facility] Right 1 Implanted PLATE,LCP,7H,2.0X52MM ([id number]) - [id number] IMPLANTS PLATE,LCP,7H,2.0X52MM ([id number]) [facility] Right 1 Implanted PLATE,CNDYLR,LCP,7H,2.4MM ([id number]) (AutoReq) - [id number] IMPLANTS PLATE,CNDYLR,LCP,7H,2.4MM (5296413) (AutoReq) [facility] Right 1 Implanted BONE,CRUSHED,CANCELLOUS,10CC ([id number]) (AutoReq) - [id number] IMPLANTS BONE,CRUSHED,CANCELLOUS,10CC([id number]) (AutoReq) [facility] [id number] Right 1 Implanted PIN,KWIRE,TROC 1ED,NS,[id number] ([id number]) - [id number] IMPLANTS PIN,KWIRE,TROC 1ED,NS,6V522OS (2929662) [facility] Right 2 Implanted and Explanted PIN,KWIRE,PLAIN,2,0.941H1QL,NS ([id number]) - [id number] IMPLANTS PIN,KWIRE,PLAIN,2,0.799C0JW,NS ([id number]) [employer] [facility] Left 3 Implanted PLATE,LCP,CNDYLR,7H-SHFT,2MM (3423839) - [id number] IMPLANTS PLATE,LCP,CNDYLR,7H-SHFT,2MM (0632810)[facility] Left 1 Implanted SCREW,LCK,STAP,STAR,2X12MM ([id number]) - [id number] IMPLANTS SCREW,LCK,STAP,STAR,2X12MM ([id number]) [facility] Left 1 Implanted SCREW,LCK,STAP,STAR,2X10MM ([id number]) - [id number] IMPLANTS SCREW,LCK,STAP,STAR,2X10MM (9973165) [facility] Left 1 Implanted SCREW,CRTX,STAP,STAR,2X12MM ([id number]) - [id number] IMPLANTS SCREW,CRTX,STAP,STAR,2X12MM (6862676) [facility] Left 1 Implanted SCREW,CRTX,STAP,STAR,2X14MM ([id number]) - [id number] IMPLANTS SCREW,CRTX,STAP,STAR,2X14MM (3110049) [facility] Left 1 Implanted SCREW,CRTX,STAP,STAR,2X14MM ([id number]) - [id number] IMPLANTS SCREW,CRTX,STAP,STAR,2X14MM ([id number]) [facility] Right 1 Implanted SCREW,VA,LCK,SLFTP,T6,2X22MM (3666610) - [id number] IMPLANTS SCREW,VA,LCK,SLFTP,T6,2X22MM (3628996)[employer] Right 1 Implanted SCREW,VA,LCK,SLFTP,T6,2X18MM (5105230) - [id number] IMPLANTS SCREW,VA,LCK,SLFTP,T6,2X18MM (5282510)[employer] Right 1 Implanted SCREW,VA,LCK,SLFTP,T6,2X16MM ([id number]) - [id number] IMPLANTS SCREW,VA,LCK,SLFTP,T6,2X16MM ([id number])[facility] Right 1 Implanted SCREW,CRTX,STAP,STAR,2X16MM ([id number]) - [id number] IMPLANTS SCREW,CRTX,STAP,STAR,2X16MM (9436406) [facility] Right 1 Implanted SCREW,CRTX,STAP,STAR,2X12MM (7970857) - [id number] IMPLANTS SCREW,CRTX,STAP,STAR,2X12MM (8899538) [facility] Right 1 Implanted SCREW,CRTX,STAP,STRDRV,2X10MM (1735318) - [id number] IMPLANTS SCREW,CRTX,STAP,STRDRV,2X10MM (5811760) [facility] Left 1 Implanted GUIDEW,THRD,1.7U630LL (7186897) - [id number] IMPLANTS GUIDEW,THRD,1.9I929LC ([id number]) [facility]; [facility] Right 3 Implanted Number of fracture [...] or concerns. Lauren Perales, PT, DPT Pager: [phone] 09/16/18 Inpatient Rehabilitation Department * Plan of [...] up as able/appropriate. Ori Valencia OT Pager: [phone] * Initial Assessments - Kathrin Madsen RN [...] wyman Other: Primary Care Provider: LILLY Gaitan [phone] Patient/Caregiver Goals of Treatment: agreed to go [...] kind. She agrees to snf referrals, #1 [facility], [facility]. Referral submitted. Plan: snf vs swing vs acute. A member of the Care Management team will continue to monitor progress, follow for continuity of care and assist with transition of care planning. Kathrin Madsen RN Pager: [phone] * Plan of Care - Horace Beckman [...] Glucose, POC 139 65 - 199 mg/dL [facility] Comment: Supplemental ranges: <140 mg/dL before meals <180 mg/dL all other times of the day Blood specimen (specimen) 09/20/2018 11:29 AM EDT 09/20/2018 11:29 AM EDT Javad Urban MD POINT OF CARE TEST O RDERABLES [facility] [place] [address] * POCT Glucose (09/20/2018 8:02 AM EDT) Glucose, POC 167 65 - 199 mg/dL [facility] Comment: Supplemental ranges: <140 mg/dL before meals <180 mg/dL all other times of the day Blood specimen (specimen) 09/20/2018 8:02 AM EDT 09/20/2018 8:02 AM EDT Javad Urban MD POINT OF CARE TEST O JONY Performing Organization Address [facility]/ZIP Co de Phone Number [facility] [place] [address] * POCT Glucose (09/20/2018 4:03 AM EDT) Glucose, POC 127 65 - 199 mg/dL [facility] Comment: Supplemental ranges: <140 mg/dL before meals <180 mg/dL all other times of the day Blood specimen (specimen) 09/20/2018 4:03 AM EDT 09/20/2018 4:03 AM EDT Javad Urban MD POINT OF CARE TEST O JONY Performing Organization Address [facility] Co de Phone Number [facility] [place] [address] * POCT Glucose (09/19/2018 11:45 PM EDT) Glucose, POC 146 65 - 199 mg/dL [facility] Comment: Supplemental ranges: <140 mg/dL before meals <180 mg/dL all other times of the day Blood specimen (specimen) 09/19/2018 11:45 PM EDT 09/19/2018 11:45 PM EDT Javad Urban MD POINT OF CARE TEST O JONY Performing Organization Address [facility] Co de Phone Number [facility] [place] [address] * POCT Glucose (09/19/2018 7:26 PM EDT) Glucose, POC 149 65 - 199 mg/dL [facility] Comment: Supplemental ranges: <140 mg/dL before meals <180 mg/dL all other times of the day Blood specimen (specimen) 09/19/2018 7:26 PM EDT 09/19/2018 7:26 PM EDT Javad Urban MD POINT OF CARE TEST O RDERALISSETT Performing Organization Address City/[facility] Co de Phone Number [facility] [place] [address] * POCT Glucose (09/19/2018 4:14 PM EDT) Glucose, POC 144 65 - 199 mg/dL [facility] Comment: Supplemental ranges: <140 mg/dL before meals <180 mg/dL all other times of the day Blood specimen (specimen) 09/19/2018 4:14 PM EDT 09/19/2018 4:14 PM EDT Javad Urban MD POINT OF CARE TEST O RDERALISSETT Performing Organization Address [facility] Co de Phone Number [facility] [place] [address] * POCT Glucose (09/19/2018 11:28 AM EDT) Glucose, POC 170 65 - 199 mg/dL [facility] Comment: Supplemental ranges: <140 mg/dL before meals <180 mg/dL all other times of the day Blood specimen (specimen) 09/19/2018 11:28 AM EDT 09/19/2018 11:28 AM EDT Javad Urban MD POINT OF CARE TEST O RDERALISSETT Performing Organization Address City/[facility]/ZIP Co de Phone Number [facility] [place] [address] * POCT Glucose (09/19/2018 7:54 AM EDT) Glucose, POC 120 65 - 199 mg/dL [facility] Comment: Supplemental ranges: <140 mg/dL before meals <180 mg/dL all other times of the day Blood specimen (specimen) 09/19/2018 7:54 AM EDT 09/19/2018 7:54 AM EDT Javad Urban MD POINT OF CARE TEST O JONY Performing Organization Address [facility] Co de Phone Number [facility] [place] [address] * POCT Glucose (09/19/2018 3:42 AM EDT) Glucose, POC 105 65 - 199 mg/dL [facility] Comment: Supplemental ranges: <140 mg/dL before meals <180 mg/dL all other times of the day Blood specimen (specimen) 09/19/2018 3:42 AM EDT 09/19/2018 3:42 AM EDT Javad Urban MD POINT OF CARE TEST O JONY Performing Organization Address [facility] Co de Phone Number [facility] [place] [address] * Magnesium (09/19/2018 3:40 AM EDT) Magnesium 0.74 0.69 - 1.07 mmol/L [facility] Blood specimen (specimen) Venous Draw / Unknown 09/19/2018 3:40 AM EDT 09/19/2018 4:40 AM EDT Narrative Resulting Agency Comment Spec In Lab Buffy CARR CHEMISTRY ORDERAB LES Performing Organization Address [facility] Co de Phone Number [facility] [place] [address] * (ABNORMAL) Basic Metabolic Panel (non-fasting) (09/19/2018 3:40 AM EDT) Glucose 111 65 - 199 mg/dL [facility] Comment:Diabetes: >=200 mg/d L plus symptoms Blood Urea Nitrogen 11 8 - 18 mg/dL [facility] Creatinine 0.64(L) 0.70 - 1.20 mg/dL [facility] Sodium 140 135 - 145 mmol/L [facility] Potassium 4.0 3.5 - 5.0 mmol/L [facility] Comment: Please note: ??Patients with WBC >100,000 may have falsely elevated Potassium levels. ??For accurate Potassium quantification in these patients send serum separator tube (gold top) for subsequent determinations. ??Contact the Clinical Chemistry Laboratory if there are any questions. Chloride 104 98 - 107 mmol/L [facility] Carbon Dioxide 27 22 - 31 mmol/L [facility] Anion Gap 9 5 - 15 mmol/L [facility] Calcium 8.9 8.5 - 10.5 mg/dL [facility] Est Glomerular Filtration Rate 103 >=60 mL/min/1. 73 m?? [facility] Comment: The eGFR was calculated using the CKD-EPI equation. As with all creatinine based estimates of kidney function, eGFR values calculated with the CKD-EPI equation are not accurate in patients with acute kidney failure, extremes of body mass or the acutely ill. [email or web address] eGFR 120 >=60 mL/min/1. 73 m?? [facility] Comment: The eGFR was calculated using the CKD-EPI equation. As with all creatinine based estimates of kidney function, eGFR values calculated with the CKD-EPI equation are not accurate in patients with acute kidney failure, extremes of body mass or the acutely ill. [email or web address]://[email or web address] Blood specimen (specimen) 09/19/2018 3:40 AM EDT 09/19/2018 3:53 AM EDT Narrative Resulting Agency Comment Spec In Lab Trina Loo APRN CHEMISTRY ORDERABLE S [facility] [place] [address] * POCT Glucose (09/18/2018 11:20 PM EDT) Glucose, POC 150 65 - 199 mg/dL [facility] Comment: Supplemental ranges: <140 mg/dL before meals <180 mg/dL all other times of the day Blood specimen (specimen) 09/18/2018 11:20 PM EDT 09/18/2018 11:20 PM EDT Javad Urban MD POINT OF CARE TEST O RDERALISSETT Performing Organization Address City/[facility] Co de Phone Number [facility] [place] [address] * POCT Glucose (09/18/2018 7:57 PM EDT) Glucose, POC 103 65 - 199 mg/dL [facility] Comment: Supplemental ranges: <140 mg/dL before meals <180 mg/dL all other times of the day Blood specimen (specimen) 09/18/2018 7:57 PM EDT 09/18/2018 7:57 PM EDT Javad Urban MD POINT OF CARE TEST O JONY Performing Organization Address [facility] Co de Phone Number [facility] [place] [address] * POCT Glucose (09/18/2018 4:56 PM EDT) Glucose, POC 142 65 - 199 mg/dL [facility] Comment: Supplemental ranges: <140 mg/dL before meals <180 mg/dL all other times of the day Blood specimen (specimen) 09/18/2018 4:56 PM EDT 09/18/2018 4:56 PM EDT Javad Urban MD POINT OF CARE TEST O RDERALISSETT Performing Organization Address [facility] Co de Phone Number [facility] [place] [address] * POCT Glucose (09/18/2018 11:59 AM EDT) Glucose, POC 160 65 - 199 mg/dL [facility] Comment: Supplemental ranges: <140 mg/dL before meals <180 mg/dL all other times of the day Blood specimen (specimen) 09/18/2018 11:59 AM EDT 09/18/2018 11:59 AM EDT Javad Urban MD POINT OF CARE TEST O JONY Performing Organization Address [facility] Co de Phone Number [facility] [place] [address] * POCT Glucose (09/18/2018 7:55 AM EDT) Glucose, POC 126 65 - 199 mg/dL [facility] Comment: Supplemental ranges: <140 mg/dL before meals <180 mg/dL all other times of the day Blood specimen (specimen) 09/18/2018 7:55 AM EDT 09/18/2018 7:55 AM EDT Javad Urban MD POINT OF CARE TEST O JONY Performing Organization Address [facility] Co de Phone Number [facility] [place] [address] * POCT Glucose (09/18/2018 3:58 AM EDT) Glucose, POC 125 65 - 199 mg/dL [facility] Comment: Supplemental ranges: <140 mg/dL before meals <180 mg/dL all other times of the day Blood specimen (specimen) 09/18/2018 3:58 AM EDT 09/18/2018 3:58 AM EDT Javad Urban MD POINT OF CARE TEST O JONY Performing Organization Address [facility] Co de Phone Number [facility] [place] [address] * (ABNORMAL) Magnesium (09/18/2018 3:37 AM EDT) Magnesium 0.67(L) 0.69 - 1.07 mmol/L [facility] Blood specimen (specimen) Venous Draw / Unknown 09/18/2018 3:37 AM EDT 09/18/2018 4:55 AM EDT Narrative Resulting Agency Comment Spec In Lab Tirna Loo CARLOS CHEMISTRY ORDERABLE S [facility] [place] [address] * (ABNORMAL) Basic Metabolic Panel (non-fasting) (09/18/2018 3:37 AM EDT) Glucose 106 65 - 199 mg/dL [facility] Comment:Diabetes: >=200 mg/d L plus symptoms Blood Urea Nitrogen 7(L) 8 - 18 mg/dL [facility] Creatinine 0.62(L) 0.70 - 1.20 mg/dL [facility] Sodium 143 135 - 145 mmol/L [facility] Potassium 3.1(L) 3.5 - 5.0 mmol/L [facility] Comment: Please note: ??Patients with WBC >100,000 may have falsely elevated Potassium levels. ??For accurate Potassium quantification in these patients send serum separator tube (gold top) for subsequent determinations. ??Contact the Clinical Chemistry Laboratory if there are any questions. Chloride 106 98 - 107 mmol/L [facility] Carbon Dioxide 26 22 - 31 mmol/L [facility] Anion Gap 11 5 - 15 mmol/L [facility] Calcium 8.5 8.5 - 10.5 mg/dL [facility] Est Glomerular Filtration Rate 104 >=60 mL/min/1. 73 m?? [facility] Comment: The eGFR was calculated using the CKD-EPI equation. As with all creatinine based estimates of kidney function, eGFR values calculated with the CKD-EPI equation are not accurate in patients with acute kidney failure, extremes of body mass or the acutely ill. http://Echograph/DHnkf eGFR 121 >=60 mL/min/1. 73 m?? [facility] Comment: The eGFR was calculated using the CKD-EPI equation. As with all creatinine based estimates of kidney function, eGFR values calculated with the CKD-EPI equation are not accurate in patients with acute kidney failure, extremes of body mass or the acutely ill. http://Paper.li.[employer]Direct/DHMCnkf Blood specimen (specimen) 09/18/2018 3:37 AM EDT 09/18/2018 3:59 AM EDT Narrative Resulting Agency Comment Spec In Lab Trina Loo APRN CHEMISTRY ORDERABLE S Performing Organization Address [facility] Co de Phone Number [facility] [place] [address] * POCT Glucose (09/17/2018 11:33 PM EDT) Glucose, POC 145 65 - 199 mg/dL [facility] Comment: Supplemental ranges: <140 mg/dL before meals <180 mg/dL all other times of the day Blood specimen (specimen) 09/17/2018 11:33 PM EDT 09/17/2018 11:33 PM EDT Javad Urban MD POINT OF CARE TEST O RDERABLES Performing Organization Address [facility] Co de Phone Number [facility] [place] [address] * (ABNORMAL) POCT Glucose (09/17/2018 7:24 PM EDT) Glucose, POC 200(H) 65 - 199 mg/dL [facility] Comment: Supplemental ranges: <140 mg/dL before meals <180 mg/dL all other times of the day Blood specimen (specimen) 09/17/2018 7:24 PM EDT 09/17/2018 7:24 PM EDT Javad Urban MD POINT OF CARE TEST O RDERALISSETT Performing Organization Address [facility] Co de Phone Number [facility] [place] [address] * POCT Glucose (09/17/2018 3:16 PM EDT) Glucose, POC 180 65 - 199 mg/dL [facility] Comment: Supplemental ranges: <140 mg/dL before meals <180 mg/dL all other times of the day Blood specimen (specimen) 09/17/2018 3:16 PM EDT 09/17/2018 3:16 PM EDT Javad Urban MD POINT OF CARE TEST O JONY Performing Organization Address [facility] Co de Phone Number [facility] [place] [address] * POCT Glucose (09/17/2018 12:01 PM EDT) Glucose, POC 137 65 - 199 mg/dL [facility] Comment: Supplemental ranges: <140 mg/dL before meals <180 mg/dL all other times of the day Blood specimen (specimen) 09/17/2018 12:01 PM EDT 09/17/2018 12:01 PM EDT Javad Urban MD POINT OF CARE TEST O JONY Performing Organization Address [facility] de Phone Number [facility] [place] [address] * EEG awake, asleep, drowsy, routine (09/17/2018 9:30 AM EDT) Narrative Jose Singer MD - 09/17/2018 9:30 AM EDT Jose Singer MD ? 09/21/2018 10:14 AM [facility] Department of Neurology Inpatient EEG Report Name of the Patient: ??Jenae La Date of : ?1965 Date of Service: ?09/17/2018 Referring physician: ?Dr. Abdirahman Enamorado BRIEF HISTORY: Jenae La is a 53 y.o. patient with episodes of tremors at home and witnessed facial and arm twitching at [facility] (witnessed by nursing). Also has hit [...] 1 cartridge ??1-4 Cartridge Inhalation Q4H PRN Saknet Freeman MD ?? 1 Cartridge at 09/17/18351 [...] channel digitized electroencephalogram was performed in the [facility] Clinical Neurophysiology Laboratory. The 10/20 international system of electrode placement was used and bipolar and referential electrode montages were recorded. ??In addition to EEG the patient was monitored for EKG and lateral/vertical eye movements. Video was recorded during the session. The duration of the recording was 30 minutes. RN [facility]'S REPORT:Performed by: RR/GERHARD Patient was not sleep [...] Angel MD Clinical Neurophysiology Fellow Personal Pager #[phone] Epilepsy Neurology #[id number] Neurology Attending I have personally reviewed the EEG, and I agree with the details as written. ?? The above report was formulated in discussion with me at the time of EEG reading, and I agree with it as documented. Jose Singer MD Department [place] [address] Pager: [phone], #[phone] Email: [email or web address] Javad Urban MD NEUROLOGY ORDERABLES * (ABNORMAL) Basic Metabolic Panel (non-fasting) (09/17/2018 9:02 AM EDT) Glucose 121 65 - 199 mg/dL [facility] Comment:Diabetes: >=200 mg/d L plus symptoms Blood Urea Nitrogen 9 8 - 18 mg/dL [facility] Creatinine 0.59(L) 0.70 - 1.20 mg/dL [facility] Sodium 144 135 - 145 mmol/L [facility] Potassium 2.9(Criti toy) 3.5 - 5.0 mmol/L [facility] Comment: Called by: maged/sb, Read back by: Aruna Calvo, Date/Time:09/17/18 10:19. Please note: ??Patients with WBC >100,000 may have falsely elevated Potassium levels. ??For accurate Potassium quantification in these patients send serum separator tube (gold top) for subsequent determinations. ??Contact the Clinical Chemistry Laboratory if there are any questions. Chloride 108(H) 98 - 107 mmol/L [facility] Carbon Dioxide 25 22 - 31 mmol/L [facility] Anion Gap 11 5 - 15 mmol/L [facility] LABORATORY Calcium 8.0(L) 8.5 - 10.5 mg/dL [facility] Est Glomerular Filtration Rate 106 >=60 mL/min/1. 73 m?? [facility] Comment: The eGFR was calculated using the CKD-EPI equation. As with all creatinine based estimates of kidney function, eGFR values calculated with the CKD-EPI equation are not accurate in patients with acute kidney failure, extremes of body mass or the acutely ill. [email or web address]/[facility] ARDMOREnkf eGFR 123 >=60 mL/min/1. 73 m?? [facility] Comment: The eGFR was calculated using the CKD-EPI equation. As with all creatinine based estimates of kidney function, eGFR values calculated with the CKD-EPI equation are not accurate in patients with acute kidney failure, extremes of body mass or the acutely ill. http://[email or web address]/[facility]DMOREnkf Blood specimen (specimen) 09/17/2018 9:02 AM EDT 09/17/2018 9:17 AM EDT Narrative Resulting Agency Comment Spec In Lab Javad Urban MD CHEMISTRY ORDERABLES Performing Organization Address [facility]/ZIP Co de Phone Number [facility] [place] [place] [address] * POCT Glucose (09/17/2018 7:33 AM EDT) Glucose, POC 136 65 - 199 mg/dL [facility] Comment: Supplemental ranges: <140 mg/dL before meals <180 mg/dL all other times of the day Blood specimen (specimen) 09/17/2018 7:33 AM EDT 09/17/2018 7:33 AM EDT Javad Urban MD POINT OF CARE TEST O RDERABLES Performing Organization Address [facility] Co de Phone Number [facility] [place] [address] * POCT Glucose (09/17/2018 3:29 AM EDT) Glucose, POC 126 65 - 199 mg/dL [facility] Comment: Supplemental ranges: <140 mg/dL before meals <180 mg/dL all other times of the day Blood specimen (specimen) 09/17/2018 3:29 AM EDT 09/17/2018 3:29 AM EDT Javad Ubran MD POINT OF CARE TEST O RDSILVIO Performing Organization Address [facility] Co de Phone Number [facility] [place] [address] * POCT Glucose (09/16/2018 11:25 PM EDT) Glucose, POC 123 65 - 199 mg/dL [facility] Comment: Supplemental ranges: <140 mg/dL before meals <180 mg/dL all other times of the day Blood specimen (specimen) 09/16/2018 11:25 PM EDT 09/16/2018 11:25 PM EDT Javad Urban MD POINT OF CARE TEST O JONY Performing Organization Address [facility] Co de Phone Number [facility] [address] * POCT Glucose (09/16/2018 8:29 PM EDT) Glucose, POC 114 65 - 199 mg/dL [facility] Comment: Supplemental ranges: <140 mg/dL before meals <180 mg/dL all other times of the day Blood specimen (specimen) 09/16/2018 8:29 PM EDT 09/16/2018 8:29 PM EDT Javad Urban MD POINT OF CARE TEST Rosie BORGES Performing Organization Address [facility] Co de Phone Number [facility] [address] * POCT Glucose (09/16/2018 3:35 PM EDT) Glucose, POC 106 65 - 199 mg/dL [facility] Comment: Supplemental ranges: <140 mg/dL before meals <180 mg/dL all other times of the day Blood specimen (specimen) 09/16/2018 3:35 PM EDT 09/16/2018 3:35 PM EDT Javad Urban MD POINT OF CARE TEST Rosie BORGES Performing Organization Address [facility] Co de Phone Number [facility] [address] * (ABNORMAL) Basic Metabolic Panel (non-fasting) (09/16/2018 3:33 PM EDT) Glucose 106 65 - 199 mg/dL [facility] Comment:Diabetes: >=200 mg/d L plus symptoms Blood Urea Nitrogen 13 8 - 18 mg/dL [facility] Creatinine 0.62(L) 0.70 - 1.20 mg/dL [facility] Sodium 147(H) 135 - 145 mmol/L [facility] Potassium 3.2(L) 3.5 - 5.0 mmol/L [facility] Comment: Please note: ??Patients with WBC >100,000 may have falsely elevated Potassium levels. ??For accurate Potassium quantification in these patients send serum separator tube (gold top) for subsequent determinations. ??Contact the Clinical Chemistry Laboratory if there are any questions. Chloride 112(H) 98 - 107 mmol/L [facility] Carbon Dioxide 22 22 - 31 mmol/L [facility] Anion Gap 13 5 - 15 mmol/L [facility] Calcium 8.1(L) 8.5 - 10.5 mg/dL [facility] Est Glomerular Filtration Rate 104 >=60 mL/min/1. 73 m?? [facility] Comment: The eGFR was calculated using the CKD-EPI equation. As with all creatinine based estimates of kidney function, eGFR values calculated with the CKD-EPI equation are not accurate in patients with acute kidney failure, extremes of body mass or the acutely ill. http://Echograph/[facility]OREnkf eGFR 121 >=60 mL/min/1. 73 m?? [facility] Comment: The eGFR was calculated using the CKD-EPI equation. As with all creatinine based estimates of kidney function, eGFR values calculated with the CKD-EPI equation are not accurate in patients with acute kidney failure, extremes of body mass or the acutely ill. [email or web address] Blood specimen (specimen) 09/16/2018 3:33 PM EDT 09/16/2018 3:49 PM EDT Narrative Resulting Agency Comment Spec In Lab Javad Urban MD CHEMISTRY ORDERABLES [facility] [place] [place] [address] * Hemoglobin A1c (09/16/2018 3:33 PM EDT) Hemoglobin A1c 5.5 4.3 - 5.6 % [facility] Comment: Reference Range: 4.3 [...] 1, S67-60 Estimated Average Glucose 111 mg/dL [facility] Comment: eAG [...] into estimated average glucose values. ??Diabetes Care 2008:31(8):5444-2518. Blood specimen (specimen) 09/16/2018 3:33 PM EDT 09/16/2018 3:49 PM EDT Narrative Resulting Agency Comment Spec In Lab Javad Urban MD CHEMISTRY ORDERABLES [facility] [place] [address] * XR Foot Min 3 views Bilat [...] Electronically signed by: Sheila Joaquin [facility] ([phone]), at 09/16/2018 3:47 PM Narrative 09/16/2018 3:47 [...] Glucose, POC 126 65 - 199 mg/dL [facility] Comment: Supplemental ranges: <140 mg/dL before meals <180 mg/dL all other times of the day Blood specimen (specimen) 09/16/2018 1:56 PM EDT 09/16/2018 1:56 PM EDT Javad Urban MD POINT OF CARE TEST O RDERABLES [facility] [place] [address] * XR Fluoro No Rad <1Hr - OR Use (09/16/2018 1:10 PM EDT) Narrative RAD - 09/16/2018 1:11 PM EDT This order does not need a radiologist interpretation. ?? Javad Urban MD IMG FLUORO ORDERABLE S Performing Organization Address [facility] Co de Phone Number [place], [place] * POCT Glucose (09/16/2018 7:46 AM EDT) Glucose, POC 131 65 - 199 mg/dL [facility] Comment: Supplemental ranges: <140 mg/dL before meals <180 mg/dL all other times of the day Blood specimen (specimen) 09/16/2018 7:46 AM EDT 09/16/2018 7:46 AM EDT Javad Urban MD POINT OF CARE TEST O RDERABLES Performing Organization Address [facility] Co de Phone Number [facility] [place] [address] * Urine Hold (09/16/2018 6:07 AM EDT) Hold, Urine Sample in lab. [facility] Urine specimen (specimen) Urine / Unknown 09/16/2018 6:07 AM EDT 09/16/2018 6:54 AM EDT Sanket Freeman MD URINE ORDERABLES Performing Organization Address [facility] Co de Phone Number [facility] [address] * (ABNORMAL) Urinalysis with reflex Culture (09/16/2018 6:07 AM EDT) Glucose, Urine Dipstick Negative Negative mg/dL [facility] Protein, Urine Dipstick Negative Negative mg/dL [facility] Bilirubin, Urine Dipstick Negative Negative mg/dL [facility] Comment: Clinical correlation required for positive Urine Bilirubin results as false positive may occur with some drugs and drug related products. If a false positive is suspected a serum total bilirubin should be considered if clinically indicated. Urobilinogen, Urine Dipstick Normal Normal mg/dL [facility] pH, Urn (dipstick) 6.0 5.0 - 8.0 [facility] Blood, Urine Dipstick Negative Negative mg/dL [facility] Ketone, Urine Dipstick 5(A) Negative mg/dL [facility] Nitrite, Urine Dipstick Negative Negative [facility] Leukocytes, Urine Dipstick Negative Negative [facility] Appearance, Urine Dipstick Clear Clear [facility] Specific [place] Urine Automated 1.012 1.002 - 1.030 [facility] Color, Urine Dipstick Straw Yellow [facility] Reflex to Culture No [facility] Urine specimen (specimen) 09/16/2018 6:07 AM EDT 09/16/2018 6:52 AM EDT Narrative Resulting Agency Comment Spec In Lab Javad Urban MD URINE ORDERABLES Performing Organization Address [facility] Co de Phone Number [facility] [place] [address] * POCT Glucose (09/16/2018 3:30 AM EDT) Glucose, POC 126 65 - 199 mg/dL [facility] Comment: Supplemental ranges: <140 mg/dL before meals <180 mg/dL all other times of the day Blood specimen (specimen) 09/16/2018 3:30 AM EDT 09/16/2018 3:30 AM EDT Javad Urban MD POINT OF CARE TEST O RDERABLES Performing Organization Address [facility]/ZIP Co de Phone Number [facility] [place] [address] * POCT Glucose (09/15/2018 10:59 PM EDT) Glucose, POC 143 65 - 199 mg/dL [facility] Comment: Supplemental ranges: <140 mg/dL before meals <180 mg/dL all other times of the day Blood specimen (specimen) 09/15/2018 10:59 PM EDT 09/15/2018 10:59 PM EDT Javad Urban MD POINT OF CARE TEST O JONY Performing Organization Address [facility] Co de Phone Number [facility] [address] * POCT Glucose (09/15/2018 8:10 PM EDT) Glucose, POC 100 65 - 199 mg/dL [facility] Comment: Supplemental ranges: <140 mg/dL before meals <180 mg/dL all other times of the day Blood specimen (specimen) 09/15/2018 8:10 PM EDT 09/15/2018 8:10 PM EDT Javad Urban MD POINT OF CARE TEST Rosie BORGES Performing Organization Address [facility] Co de Phone Number [facility] [address] * POCT Glucose (09/15/2018 3:43 PM EDT) Glucose, POC 173 65 - 199 mg/dL [facility] Comment: Supplemental ranges: <140 mg/dL before meals <180 mg/dL all other times of the day Blood specimen (specimen) 09/15/2018 3:43 PM EDT 09/15/2018 3:43 PM EDT Javad Urban MD POINT OF CARE TEST O JONY Performing Organization Address [facility] Co de Phone Number [facility] [address] * POCT Glucose (09/15/2018 12:05 PM EDT) Glucose, POC 177 65 - 199 mg/dL [facility] Comment: Supplemental ranges: <140 mg/dL before meals <180 mg/dL all other times of the day Blood specimen (specimen) 09/15/2018 12:05 PM EDT 09/15/2018 12:05 PM EDT Javad Urban MD POINT OF CARE TEST O JONY Performing Organization Address [facility] de Phone Number [facility] [address] * (ABNORMAL) POCT Glucose (09/15/2018 7:39 AM EDT) Glucose, POC 206(H) 65 - 199 mg/dL [facility] Comment: Supplemental ranges: <140 mg/dL before meals <180 mg/dL all other times of the day Blood specimen (specimen) 09/15/2018 7:39 AM EDT 09/15/2018 7:39 AM EDT Javad Urban MD POINT OF CARE TEST O JONY Performing Organization Address [facility] de Phone Number [facility] [address] * POCT Glucose (09/15/2018 4:12 AM EDT) Glucose, POC 141 65 - 199 mg/dL [facility] Comment: Supplemental ranges: <140 mg/dL before meals <180 mg/dL all other times of the day Blood specimen (specimen) 09/15/2018 4:12 AM EDT 09/15/2018 4:12 AM EDT Javad Urban MD POINT OF CARE TEST O JONY Performing Organization Address [facility] Co de Phone Number [facility] [address] * ABORH Recheck Status (09/15/2018 3:44 AM EDT) ABORH Recheck Order Order Placed [facility] ABORH Type Recheck Complete [facility] Blood specimen (specimen) 09/15/2018 3:44 AM EDT 09/15/2018 3:59 AM EDT Narrative Resulting Agency Comment Spec In Lab Ori Santos MD BLOOD BANK LAB ORDER MADHAVI Performing Organization Address City/[facility]/ZIP Co de Phone Number [facility] [place] [address] * Antibody screen (09/15/2018 3:44 AM EDT) Ab Screen Interp Negative [facility] Expires at [id number] on: 09/18/2018 [facility] Blood specimen (specimen) 09/15/2018 3:44 AM EDT 09/15/2018 3:59 AM EDT Narrative Resulting Agency Comment Spec In Lab Ori Santos MD BLOOD BANK LAB ORDER MADHAVI Performing Organization Address City/[facility] Co de Phone Number [facility] [address] * ABO/Rh Typing (09/15/2018 3:44 AM EDT) Pathologist [facility] ABORH Type A Pos [facility] Blood specimen (specimen) 09/15/2018 3:44 AM EDT 09/15/2018 3:59 AM EDT Narrative Resulting Agency Comment Spec In Lab Ori Santos MD BLOOD BANK LAB ORDER MADHAVI Performing Organization Address City/[facility]/ZIP Co de Phone Number [facility] [address] * (ABNORMAL) Differential, Automated (09/15/2018 3:44 AM EDT) Neutrophil % 64.7 % [facility] Neutrophil Absolute 7.24(H) 1.70 - 6.10 x10(3)/mc L [facility] Lymph % 21.6 % [facility] Lymphocytes Abs 2.4 0.9 - 3.2 x10(3)/mc L [facility] Monocyte % 10.8 % [facility] Monocyte Abs 1.2(H) 0.3 - 0.9 x10(3)/[facility] Eos % 0.2 % [facility] Eosinophils Abs 0.0 0.0 - 0.4 x10(3)/[facility] Basophil % 0.4 % [facility] Baso Absolute 0.0 0.0 - 0.1 x10(3)/[facility] Immature Gran % 2.30 % [facility] Comment: Immature granulocytes(IG's)percentage and absolute count will include metamyelocytes, myelocytes, and promyelocytes. Blood smears from CBCs yielding IG's will be scanned manually for concordance. If this scan disagrees with the automated IG or if promyelocytes are noted, a manual differential will be performed. Immature Gran Absolute 0.26(H) 0.00 - 0.04 x10(3)/[facility] Blood specimen (specimen) 09/15/2018 3:44 AM EDT 09/15/2018 4:18 AM EDT Narrative Resulting Agency Comment Spec In Lab Ori Santos MD HEMATOLOGY ORDERABLE S [facility] [place] [address] * (ABNORMAL) Hemogram (09/15/2018 3:44 AM EDT) White Blood Cell 11.2(H) 4.0 - 9.5 x10(3)/[facility] Red Blood Cell 3.05(L) 4.00 - 5.21 x10(6)/[facility] Hemoglobin 9.6(L) 11.7 - 15.5 gm/dL [facility] Hematocrit 29.5(L) 35.7 - 45.8 % [facility] Mean Cell Volume 96.7(H) 82.6 - 94.4 fL [facility] Mean Cell Hemoglobin 31.5 27.1 - 32.0 pg [facility] Mean Cell Hemoglobin Concentration 32.5 31.7 - 35.0 gm/dL [facility] Platelet 244 145 - 357 x10(3)/mc L [facility] RDW Standard Deviation 50.8(H) 37.0 - 46.0 fL [facility] RDW coefficient of variation 14.3(H) 11.5 - 14.1 % [facility] Mean Platelet Volume 10.9 7.6 - 12.9 fL [facility] NRBC% auto 0.0 % [facility] NRBC Absolute 0.000 0.000 - 0.000 x10(3)/mc L [facility] Blood specimen (specimen) 09/15/2018 3:44 AM EDT 09/15/2018 4:18 AM EDT Narrative Resulting Agency Comment Spec In Lab Ori Santos MD HEMATOLOGY ORDERABLE S Performing Organization Address City/[facility]/ZIP Co de Phone Number [facility] [address] * Prothrombin Time (09/15/2018 3:44 AM EDT) Prothrombin Time 12.0 9.4 - 12.5 sec [facility] International Normalization Ratio 1.0 [facility] Comment: An INR <2.0 indicates [...] MD HEMATOLOGY ORDERABLE S Performing Organization Address City/[facility]/ZIP Co de Phone Number [facility] [address] * (ABNORMAL) Basic Metabolic Panel (non-fasting) (09/15/2018 3:44 AM EDT) Glucose 135 65 - 199 mg/dL [facility] Comment:Diabetes: >=200 mg/d L plus symptoms Blood Urea Nitrogen 18 8 - 18 mg/dL [facility] Creatinine 0.74 0.70 - 1.20 mg/dL [facility] Sodium 142 135 - 145 mmol/L [facility] Potassium 3.6 3.5 - 5.0 mmol/L [facility] Comment: Please note: ??Patients with WBC >100,000 may have falsely elevated Potassium levels. ??For accurate Potassium quantification in these patients send serum separator tube (gold top) for subsequent determinations. ??Contact the Clinical Chemistry Laboratory if there are any questions. Chloride 113(H) 98 - 107 mmol/L [facility] Carbon Dioxide 20(L) 22 - 31 mmol/L [facility] Anion Gap 9 5 - 15 mmol/L [facility] Calcium 7.9(L) 8.5 - 10.5 mg/dL [facility] Est Glomerular Filtration Rate 94 >=60 mL/min/1. 73 m?? [facility] Comment: The eGFR was calculated using the CKD-EPI equation. As with all creatinine based estimates of kidney function, eGFR values calculated with the CKD-EPI equation are not accurate in patients with acute kidney failure, extremes of body mass or the acutely ill. [email or web address]/[facility]OREnkf eGFR 109 >=60 mL/min/1. 73 m?? [facility] Comment: The eGFR was calculated using the CKD-EPI equation. As with all creatinine based estimates of kidney function, eGFR values calculated with the CKD-EPI equation are not accurate in patients with acute kidney failure, extremes of body mass or the acutely ill. [email or web address] Blood specimen (specimen) 09/15/2018 3:44 AM EDT 09/15/2018 4:18 AM EDT Narrative Resulting Agency Comment Spec In Lab Javad Urban MD CHEMISTRY ORDERABLES Performing Organization Address [facility] Co de Phone Number [facility] [place] [address] * POCT Glucose (09/14/2018 9:52 PM EDT) Glucose, POC 124 65 - 199 mg/dL [facility] Comment: Supplemental ranges: <140 mg/dL before meals <180 mg/dL all other times of the day Blood specimen (specimen) 09/14/2018 9:52 PM EDT 09/14/2018 9:52 PM EDT Javad Urban MD POINT OF CARE TEST O RDERABLES Performing Organization Address [facility] de Phone Number [facility] [place] [address] * Film Library- Storage Only MR Head (09/13/2018 12:10 AM EDT) Narrative [facility] - 09/15/2018 10:49 AM EDT This exam is auto-finalizing. It's purpose is for storage only. Javad Urban MD IMG FILM LIBRARY ORD ERABLES Performing Organization Address [facility] de Phone Number [place], [place] * Film Library- Storage Only Ultrasound Study (09/13/2018 12:05 AM EDT) Narrative [facility] - 09/15/2018 10:47 AM EDT This exam is auto-finalizing. It's purpose is for storage only. Javad CHIN FILM LIBRARY ORD ERABLES Performing Organization Address [facility] de Phone Number [place], [place] * Film Library- Storage Only DX Chest (09/13/2018 12:00 AM EDT) Narrative [facility] - 09/15/2018 10:46 AM EDT This exam is auto-finalizing. It's purpose is for storage only. Javad Urban MD IMG FILM LIBRARY ORD ERABLES [facility] [place], [place] documented in this encounter Visit Diagnoses [...] Duenas RN) [phone] (See Alternative - Provider: Stcaey Duenas, JULI)[phone] (See Alternative - Provider: Stacey [...] Fely Freeman RN)[phone] (Given - Provider: Mai Boes RN)[phone] (Given - Provider: Mai Bose RN)[phone] [...] RN) [phone] (Given - Provider: Fely Freeman RN)[phone] (Given - Provider: Mai Bose, JULI) ondansetron [...] Routine documented in this encounter Care Teams Hose Finisher Relationship Specialty Start Date End Date None None PCP - General 09/14/18 09/30/18 documented as of this encounter
[2024-07-08 18:57] LABS: Absolute Neutrophil Count 10.22 10^3/uL (1.2-6.7)
[2024-07-08 18:58] LABS: Absolute Monocyte Count 1.28 10^3/uL (0.1-0.8); Diff Comment Manual Differential; RBC Morphology Normal
[2024-07-08 19:05] LABS: ALT 33 U/L (14-59); AST 24 U/L (15-37); Albumin 3.7 g/dL (3.4-5.0); Alkaline Phosphatase 103 U/L (46-116); Anion Gap 8.5 mmol/L (3-11); BUN 19 mg/dL (7-18); Bilirubin, Total 0.76 mg/dL (0.2-1.0); CO2 24.5 mmol/L (21.0-32.0); CREATININE 1.6 mg/dL (0.55-1.02); Calcium 9.2 mg/dL (8.5-10.1); Chloride 108 mmol/L (98-107); Estimated GFR 37.62 (mL/min/1.73m2); Glucose 168 mg/dL (74-106); Lipase 34 U/L (<78); Magnesium 2.1 mg/dL (1.8-2.4); Potassium 3.6 mmol/L (3.5-5.1); Sodium 141 mmol/L (136-145); Total Protein 7.4 g/dL (6.4-8.2); Troponin I 6 ng/L (<or=51)
[2024-07-08] MEDS: Omnipaque 350 MG/ML 100 ML BTL IJ (19:05)
[2024-07-08] MEDS: Normal Saline - Diluent 50 ML VIAL IJ (19:11)
--- NOTE | 2024-07-08 19:53 | DI.CT_ITS ---
Exam(s) CT HEAD CERV SPINE FACIAL WO EXAM: CT HEAD CERV SPINE FACIAL WO CLINICAL HISTORY: multiple falls; head, nose, neck pain. TECHNIQUE: Imaging Protocol: Axial computed tomography images with coronal and sagittal reformatted images were created and reviewed COMPARISON: CT CT HEAD CERVICAL SPINE WO from 09/12/2018 FINDINGS: CT BRAIN: There are no skull fractures nor fluid in the visualized paranasal sinuses. There is no evidence of intracranial hemorrhage, mass effect, or shift of midline structures. There are no extra-axial fluid collections. The ventricles are not enlarged or shifted and there is no blo od within the ventricular system nor within the basal cisterns. CT MAXILLOFACIAL BONES: There is no evidence of facial fractures nor fluid in the visualized paranasal sinuses. there is no evidence of orbital blowout fracture. There is, however, no abnormal finding in the anterior right side of the mandible which was not evide nt on images of 2019 at this level there is a lytic area with dehiscence of the anterior cortex of th e right-side of the anterior mandible. There is no radiopaque foreign body at this level. Patient i s edentulous. CT CERVICAL SPINE: There is no evidence of fracture nor listhesis. No significant prevertebral soft tissue swelling. N o facet malalignment evident. No significant osseous lesions evident. IMPRESSION: No acute intracranial findings on this noninfused CT scan of the brain. No evidence of cervical spine fracture, malalignment, nor acute compromise of the cervical spinal can al. There is an abnormal lucent lytic appearing area in the anterior right side of the mandible there is no gas in the soft tissues over this area. Consideration for significant bone lesion. The patient i s edentulous. First read by Jose [facility]. Final report called by myself to ER physician 07/09/2024 at 4:20 p.m. RADIATION DOSE DELIVERED: 1,915.64mGy.cm Total DLP 1,915.64mGy.cm Total DLP DATA REPOSITORY: All CT scans at this facility are submitted to the National Radiology Data Registry (NRDR) Dose Index Registry (DIR) with the [employer] (A[employer]). RADIATION OPTIMIZATION: All CT scans at this facility use at least one of these dose optimization te chniques: automated exposure control; mA and/or kV adjustment per patient size (includes targeted exa ms where dose is matched to clinical indication); or iterative reconstruction.
--- NOTE | 2024-07-08 19:53 | DI.CT_ITS ---
Exam(s) CT CHEST/ABD/PEL W EXAM: CT CHEST/ABD/PEL W CLINICAL HISTORY: rib pain; L hip pain; falls; abdominal pain. TECHNIQUE: Imaging Protocol: Axial computed tomography images with coronal and sagittal reformatted images were created and reviewed CONTRAST MATERIAL: Intravenous: Omnipaque 350 Contrast volume:100 ml Oral: None COMPARISON: CT CT CHEST WO from 03/24/2019 FINDINGS: CHEST: LUNGS: Mild scarring in the right upper lobe sub apical region noted. No other focal pulmonary findi ngs. No pleural effusions. No findings in trachea and mainstem bronchi.. MEDIASTINUM: There is no hilar nor mediastinal adenopathy. Possible small nodule in the anterior aspe ct of the left thyroid lobe. CARDIAC: Heart size is normal. There is no pericardial effusion.Caliber of the thoracic aorta is wit hin normal limits. OSSEOUS: No significant osseous lesions.No acute fractures evident.. ABDOMEN: There is no ascites. LIVER: There are no focal hepatic lesions nor dilatation of intrahepatic ducts. GALLBLADDER/BILIARY: No obvious gallbladder pathology. CBD is not dilated. PANCREAS: No evidence of pancreatic mass nor dilatation of the pancreatic duct. SPLEEN: Spleen is not enlarged. There are no intrasplenic lesions. Splenic and portal veins are willis nt. ADRENALS: There are no significant adrenal masses. KIDNEYS: Left kidney unremarkable. There is an obstructing calculus at the ureteropelvic junction on the opposite-right side, this measuring 10 by 8 mm. There is significant dilatation of the collecti ng system above this level. There is also a 2nd smaller calculus in the same right ureter and the ur eter be between the 2 calculi is also slightly dilated. Ureter below the 2nd calculus is collapsed.. There few small cysts in the right kidney noted. No solid renal masses. ABDOMINAL AORTA: Abdominal aorta is not enlarged. LYMPH NODES: There is no retroperitoneal nor paraaortic adenopathy. ABDOMINAL WALL: There is a midline anterior abdominal wall fat only containing hernia at the level th e umbilicus. No bowel loops within the hernia sac and there is no bowel obstruction, free air, nor a bscess. GI: There is no evidence of bowel obstruction. PELVIS: LYMPH NODES: There is no intrapelvic nor inguinal adenopathy. GI: No evidence of appendicitis.No evidence of sigmoid diverticulitis. URINARY BLADDER: No calculi nor masses evident REPRODUCTIVE: Uterus is surgically absent. There are no abnormal adnexal masses nor free fluid in th e pelvis. OSSEOUS: No significant osseous lesions. No fractures. IMPRESSION: 1. There are 2 obstructing calculi in the right ureter. There is an 11 x 8 millimeter calculus in th e right UPJ and there is a 2nd 5 mm calculus approximately 3-4 cm distal to the UPJ calculus in the s jose luis-right ureter. There is also mild-moderate right-sided hydronephrosis. 2. Other findings as above. RADIATION DOSE DELIVERED: 942.83mGy.cm Total DLP DATA REPOSITORY: All CT scans at this facility are submitted to the National Radiology Data Registry (NRDR) Dose Index Registry (DIR) with the [employer] (A[employer]). RADIATION OPTIMIZATION: All CT scans at this facility use at least one of these dose optimization te chniques: automated exposure control; mA and/or kV adjustment per patient size (includes targeted exa ms where dose is matched to clinical indication); or iterative reconstruction.
--- NOTE | 2024-07-08 19:55 | DI.RAD_ITS ---
Exam(s) XR ELBOW RT COMPLETE EXAM: XR ELBOW RT COMPLETE CLINICAL HISTORY: R elbow bruise. TECHNIQUE: 2D digital imaging was performed. COMPARISON: No exams were available for comparison FINDINGS: Two views-AP and lateral No evidence of h fracture or obvious joint effusion on this two view study. Radial head and neck belen ear unremarkable. There is no elevation of the anterior fat pad. No swelling of the olecranon bursa . Epicondyles unremarkable. No loose bodies IMPRESSION: No acute osseous findings on these two views of the right elbow. DATA REPOSITORY: RADIATION DOSE DELIVERED:
--- NOTE | 2024-07-08 19:55 | DI.RAD_ITS ---
Exam(s) XR ANKLE LT COMPLETE EXAM: XR ANKLE LT COMPLETE CLINICAL HISTORY: multiple falls; L ankle pain. TECHNIQUE: 2D digital imaging was performed. COMPARISON: CR RIGHT ANKLE COMPLETE from 01/18/2018 FINDINGS: 3 views There is an avulsion fracture of the tip of the medial malleolus. No widening of the ankle mortise. Talar dome unremarkable. Lateral malleolus unremarkable. Posterior malleolus unremarkable. There is enthesophyte on the posterior calcaneus. There is a fusion plate in the proximal aspect of the 4th metatarsal. IMPRESSION: Avulsion fracture of the tip of the medial malleolus DATA REPOSITORY: RADIATION DOSE DELIVERED:
--- NOTE | 2024-07-08 19:56 | DI.RAD_ITS ---
Exam(s) XR FOOT RT COMPLETE EXAM: XR FOOT RT COMPLETE CLINICAL HISTORY: multiple falls; R foot pain. TECHNIQUE: 2D digital imaging was performed. COMPARISON: CR XR FOOT RT COMPLETE from 03/23/2023 FINDINGS: 3 views There is a mildly displaced fracture of the distal diaphysis of the proximal phalanx of the 2nd toe. Another fracture is seen in the distal diaphysis of the proximal phalanx of the 4th toe with signifi cant displacement. There is also an oblique fracture in the distal aspect of the proximal phalanx of the great toe. Thi s violates the interphalangeal joint surface. There is no obvious fracture in the proximal phalanx t he 3rd toe Again noted is fusion hardware across the 1st 3 tarsometatarsal joints, appearing stable and unchange d from examinations listed above February 2023. 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 Hardware exhibits no evidence of fracture nor loosening and there is no radiographic evide nce of osteomyelitis. IMPRESSION: There acute fractures of the proximal phalanges of the great toe, 2nd toe, and 4th toe proximal phala nges. Stable appearing hardware across the 1st, 2nd, and 3rd tarsometatarsal joints. DATA REPOSITORY: RADIATION DOSE DELIVERED:
--- NOTE | 2024-07-08 19:56 | DI.RAD_ITS ---
Exam(s) XR KNEE RT 3V AP,LAT,ARMIDA EXAM: XR KNEE RT 3V AP,LAT,ARMIDA CLINICAL HISTORY: falls; R knee pain. TECHNIQUE: 2D digital imaging was performed. COMPARISON: CR XR KNEE RT 4V AP,LAT,ARMIDA,PAT from 12/13/2020 FINDINGS: 3 views There is stable position alignment of the components of the right knee prosthesis. No evidence fract ure or loosening components of the prosthesis. IMPRESSION: Stable satisfactory appearance. No evidence of fracture. DATA REPOSITORY: RADIATION DOSE DELIVERED:
--- NOTE | 2024-07-08 19:56 | DI.RAD_ITS ---
Exam(s) XR ELBOW LT COMPLETE EXAM: XR ELBOW LT COMPLETE CLINICAL HISTORY: L elbow pain. TECHNIQUE: 2D digital imaging was performed. COMPARISON: CR,XR XR ELBOW RT COMPLETE from 07/08/2024 FINDINGS: Two views-AP and lateral No evidence of fracture nor joint effusion. No swelling of the olecranon bursa. Radial head and nec k appear unremarkable. However, on the medial aspect of the elbow joint there is a 3 x 2.5 mm calcif ic density adjacent to the sublime tubercle of the olecranon. This is the attachment site of the med ial collateral ligament. IMPRESSION: Small 3 x 2.5 mm calcific density medially adjacent to the sublime tubercle of the olecranon on in th e medial aspect of the elbow joint. Possibly representing a loose intra-articular body. Doubtful fo r obvious acute fracture as there does not appear to be an obvious joint effusion here. DATA REPOSITORY: RADIATION DOSE DELIVERED:
--- NOTE | 2024-07-08 19:56 | DI.RAD_ITS ---
Exam(s) XR KNEE LT 3V AP,LAT,ARMIDA EXAM: XR KNEE LT 3V AP,LAT,ARMIDA CLINICAL HISTORY: multiple falls; bilat knee pain. TECHNIQUE: 2D digital imaging was performed. COMPARISON: CR,XR XR KNEE RT 3V AP,LAT,ARMIDA from 07/08/2024 FINDINGS: 3 views There is an acute mildly displaced oblique spiral fracture in the proximal diaphysis of the fibula, o nly partially included in the field of view of these knee images. Otherwise, there is an avulsion spicule off the outer aspect of the medial femoral condyle at the med ial collateral ligament level. This is most probably a Marilin-the and a type injury. No other fractures identified. IMPRESSION: Oblique spiral fracture proximal fibula. MCL level avulsion injury in the region of the outer aspect of the medial femoral condyle. DATA REPOSITORY: RADIATION DOSE DELIVERED:
[2024-07-08] MEDS: Normal Saline 1,000 ML 1000 ML IV (20:00)
--- NOTE | 2024-07-08 20:36 | DI.VRAD_ITS ---
PROCEDURE INFORMATION: Exam: CT Chest With Contrast; Diagnostic Exam date and time: 07/08/2024 7:08 PM Age: 58 years old Clinical indication: Other: Rib pain; L hip pain; Falls; Abdominal pain TECHNIQUE: Imaging protocol: Diagnostic computed tomography of the chest with contrast. Contrast material: OMNIPAQUE 350; Contrast volume: 100 ml; Contrast route: INTRAVENOUS (IV); COMPARISON: CT CHEST WO 03/24/2019 2:00 PM FINDINGS: Lungs: Unremarkable. No consolidation. No masses. Pleural spaces: Unremarkable. No pneumothorax. No pleural effusion. Heart: Unremarkable. No cardiomegaly. No pericardial effusion. Lymph nodes: Unremarkable. No enlarged lymph nodes. Vasculature: Unremarkable. No aortic aneurysm. Bones/joints: Unremarkable. No acute fracture. Soft tissues: Unremarkable. IMPRESSION: No acute findings. PROCEDURE INFORMATION: Exam: CT Abdomen And Pelvis With Contrast Exam date and time: 07/08/2024 7:08 PM Age: 58 years old Clinical indication: Other: Rib pain; L hip pain; Falls; Abdominal pain TECHNIQUE: Imaging protocol: Computed tomography of the abdomen and pelvis with contrast. Contrast material: OMNIPAQUE 350; Contrast volume: 100 ml; Contrast route: INTRAVENOUS (IV); COMPARISON: CT CHEST/ABD/PEL W 09/12/2018 11:49 AM FINDINGS: Liver: Normal. No mass. Gallbladder and biliary ducts: Normal. No calcified stones. No ductal dilation. Pancreas: Normal. No ductal dilation. Spleen: Normal. No splenomegaly. Adrenal glands: Normal. No mass. Kidneys and ureters: 11 mm stone at the right ureteropelvic junction. 5 mm stone in the proximal right ureter located 3.4 cm distal to the right UPJ stone. Moderate right hydronephrosis. Simple appearing right renal cortical cysts. Left kidney appears normal. Stomach and bowel: Unremarkable. No obstruction. No mucosal thickening. Appendix: No evidence of appendicitis. Intraperitoneal space: Unremarkable. No free air. No significant fluid collection. Vasculature: Moderate atherosclerotic calcification throughout the aorta and iliac arteries. No evidence of aneurysm or dissection. Lymph nodes: Unremarkable. No enlarged lymph nodes. Urinary bladder: Unremarkable as visualized. Reproductive: Uterus is absent. No adnexal abnormality. Bones/joints: Unremarkable. No acute fracture. Soft tissues: Unremarkable. IMPRESSION: There are 2 stones in the right renal collecting system including an 11 mm stone at the right UPJ and 5 mm stone in the proximal right ureter. Moderate right hydronephrosis. Other incidental chronic findings as noted. Dictated and Authenticated by: Phill Ricardo MD. Orderin Oriana Ac MD
--- NOTE | 2024-07-08 20:38 | DI.VRAD_ITS ---
PROCEDURE INFORMATION: Exam: XR Left Elbow Exam date and time: 07/08/2024 7:45 PM Age: 58 years old Clinical indication: Other: L elbow pain TECHNIQUE: Imaging protocol: Radiologic exam of the left elbow. Views: 3 or more views. COMPARISON: CR XR shoulder LT complete 2+V 03/29/2018 3:52 PM FINDINGS: Bones/joints: Osseous alignment is normal. No acute fracture. No significant arthritic change or joint fluid. Soft tissues: Normal. IMPRESSION: Negative left elbow Dictated and Authenticated by: Phill Ricardo MD. Orderin Oriana Ac MD
--- NOTE | 2024-07-08 20:38 | DI.VRAD_ITS ---
PROCEDURE INFORMATION: Exam: CT Head Without Contrast Exam date and time: 07/08/2024 6:58 PM Age: 58 years old Clinical indication: Other: Multiple falls; Head, nose, neck pain TECHNIQUE: Imaging protocol: Computed tomography of the head without contrast. COMPARISON: MR brain wo/w 09/13/2018 5:38 PM FINDINGS: Brain: Normal volume for age. No acute intracranial hemorrhage. No evidence of acute large vascular territory infarct. No edema. No midline shift or herniation. Cerebral ventricles: No ventriculomegaly. Pituitary gland and sella: Partially empty appearance of the sella. Paranasal sinuses: Imaged paranasal sinuses appropriately aerated without air-fluid levels. Mastoid air cells: No mastoid effusion. Bones: Unremarkable. No acute fracture. Soft tissues: No focal soft tissue abnormality. IMPRESSION: No acute intracranial finding. PROCEDURE INFORMATION: Exam: CT Maxillofacial Without Contrast Exam date and time: 07/08/2024 6:58 PM Age: 58 years old Clinical indication: Other: Multiple falls; Head, nose, neck pain TECHNIQUE: Imaging protocol: Computed tomography of the face without contrast. COMPARISON: MR brain wo/w 09/13/2018 5:38 PM FINDINGS: Paranasal sinuses: Paranasal sinuses adequately aerated without air-fluid levels. Orbital cavities: Orbits are normal. Globes are unremarkable. Teeth: Edentulous appearance of the oral cavity. Bones: No acute fracture. Soft tissues: Mild left periorbital soft tissue edema. IMPRESSION: No acute fracture. PROCEDURE INFORMATION: Exam: CT Cervical Spine Without Contrast Exam date and time: 07/08/2024 6:58 PM Age: 58 years old Clinical indication: Other: Multiple falls; Head, nose, neck pain TECHNIQUE: Imaging protocol: Computed tomography of the cervical spine without contrast. COMPARISON: CT HEAD CERVICAL SPINE WO 09/12/2018 10:00 AM FINDINGS: Bones: No acute fracture. No spondylolisthesis. There is nonspecific straightening with slight reversal of normal cervical lordosis. Intervertebral disc heights are grossly preserved. Osseous neural foramina and central canal are patent. Lungs: Small nonspecific ground-glass opacity within the anterior right lung apex incompletely evaluated on this exam. Vasculature: Mild vascular calcifications of the carotid bulbs. Soft tissues: Included soft tissues unremarkable as visualized. IMPRESSION: No acute fracture. Dictated and Authenticated by: Dirk Loera MD. Orderin Oriana Ac MD
--- NOTE | 2024-07-08 20:40 | DI.VRAD_ITS ---
PROCEDURE INFORMATION: Exam: XR Left Ankle Exam date and time: 07/08/2024 7:25 PM Age: 58 years old Clinical indication: Other: Multiple falls; L ankle pain TECHNIQUE: Imaging protocol: Radiologic exam of the left ankle. Views: 3 or more views. COMPARISON: CT LOWER EXTREMITY LT WO 12/29/2022 2:32 PM FINDINGS: Bones/joints: Osseous alignment is normal. No acute fracture. Moderate degenerative changes of the midfoot. Orthopedic plate and screw device noted in the 4th metatarsal. Soft tissues: Mild diffuse soft tissue swelling about the ankle. IMPRESSION: No acute osseous abnormality Dictated and Authenticated by: Phill Ricardo MD. Orderin Oriana Ac MD
[2024-07-08 20:43] VITALS: BP 120/66; RESP 16; O2SAT 97
--- NOTE | 2024-07-08 20:44 | DI.VRAD_ITS ---
PROCEDURE INFORMATION: Exam: XR Right Foot Exam date and time: 07/08/2024 7:26 PM Age: 58 years old Clinical indication: Other: Multiple falls; R foot pain; Prior surgery; Surgery date: 6+ months; Surgery type: Plates TECHNIQUE: Imaging protocol: Radiologic exam of the right foot. Views: 3 or more views. COMPARISON: CR XR FOOT RT COMPLETE 03/23/2023 2:19 PM FINDINGS: Bones/joints: Mildly displaced fracture of the distal shaft of the 2nd proximal phalanx. Fracture of the distal shaft of the 4th proximal phalanx with significant dorsal displacement of the distal fragment. Otherwise chronic osseous changes noted. Orthopedic hardware noted in the medial aspect of the midfoot. Soft tissues: Soft tissue swelling of the forefoot. IMPRESSION: Fractures of the 1st, 2nd and 4th proximal phalanges as described. Dictated and Authenticated by: Phill Ricardo MD. Orderin Oriana cA MD
--- NOTE | 2024-07-08 20:46 | DI.VRAD_ITS ---
PROCEDURE INFORMATION: Exam: XR Right Knee Exam date and time: 07/08/2024 7:21 PM Age: 58 years old Clinical indication: Injury or trauma; Blunt trauma; Bilateral; Injury date: 07/08/24; Prior surgery; Surgery date: 6+ months; Surgery type: Knee replacement; Multiple falls; Bilat knee pain TECHNIQUE: Imaging protocol: Radiologic exam of the right knee. Views: 3 views. COMPARISON: CT LOWER EXTREMITY RT WO 12/29/2022 2:43 PM FINDINGS: Bones/joints: Right knee prosthesis in place. No evidence of hardware failure or loosening. Osseous alignment is normal. No acute fracture Soft tissues: Normal. IMPRESSION: No acute abnormality Dictated and Authenticated by: Phill Ricardo MD. Orderin Oriana Ac MD
--- NOTE | 2024-07-08 20:47 | DI.VRAD_ITS ---
PROCEDURE INFORMATION: Exam: XR Left Tibia and Fibula Exam date and time: 07/08/2024 8:24 PM Age: 58 years old Clinical indication: Other: Fracture, L fibula TECHNIQUE: Imaging protocol: Radiologic exam of the left tibia and fibula. Views: 2 views. COMPARISON: CT LOWER EXTREMITY LT WO 12/29/2022 2:32 PM FINDINGS: Bones/joints: There is a minimally displaced spiral fracture of the proximal diaphysis of the left fibula. No other acute fracture. Osseous alignment is otherwise normal. No significant arthritic changes. Soft tissues: Normal. IMPRESSION: Proximal left fibula fracture as described Dictated and Authenticated by: Phill Ricardo MD. Orderin Oriana Ac MD
--- NOTE | 2024-07-08 20:51 | DI.VRAD_ITS ---
PROCEDURE INFORMATION: Exam: XR Right Elbow Exam date and time: 07/08/2024 7:40 PM Age: 58 years old Clinical indication: Injury or trauma; Fall; Blunt trauma (contusions or hematomas); Bilateral; Injury date: 07/07/24; R elbow bruise TECHNIQUE: Imaging protocol: Radiologic exam of the right elbow. Views: 3 or more views. COMPARISON: MR upper joint RT wo 03/04/2018 7:06 AM FINDINGS: Bones/joints: Osseous alignment is normal. No acute fracture. No significant joint fluid or arthritic change. Soft tissues: Normal. IMPRESSION: Negative right elbow Dictated and Authenticated by: Phill Ricardo MD. Orderin Oriana Ac MD
[2024-07-08] MEDS: MORPHine 4 MG/ML SYR IVP (20:55)
[2024-07-08] MEDS: Tamsulosin 0.4 MG CAPCR PO (21:13)
[2024-07-08 21:25] LABS: ETHANOL BLOOD < 3.0 mg/dL (<10)
[2024-07-08 21:27] LABS: COVID-19 PCR Negative (Negative); Influenza A PCR Negative (Negative); Influenza B PCR Negative (Negative); RSV PCR Negative (Negative)
--- NOTE | 2024-07-08 21:29 | DI.VRAD_ITS ---
PROCEDURE INFORMATION: Exam: XR Left Knee Exam date and time: 07/08/2024 7:22 PM Age: 58 years old Clinical indication: Other: Multiple falls; Bilat knee pain TECHNIQUE: Imaging protocol: Radiologic exam of the left knee. Views: 3 views. COMPARISON: CT LOWER EXTREMITY LT WO 12/29/2022 2:32 PM FINDINGS: Bones/joints: Mildly displaced spiral fracture of the proximal diaphysis of the left fibula. Small displaced cortical fragment along the medial margin of the medial femoral condyle raises concern for MCL avulsion fracture. No other evidence of acute fracture. No significant joint fluid or arthritic change. Soft tissues: Normal. IMPRESSION: 1. Spiral fracture of the proximal fibular diaphysis 2. Findings concerning for MCL avulsion injury. Consider correlation with MRI. Dictated and Authenticated by: Phill Ricardo MD. Orderin Oriana Ac MD
[2024-07-08 21:31] LABS: Source Nasopharynx
[2024-07-08 21:33] LABS: Bilirubin Negative (Negative); Blood Moderate (Negative); Clarity Clear (Clear); Glucose 500 mg/dL (Negative); Ketones Negative (Negative); Leukocyte Esterase Trace (Negative); Nitrite Positive (Negative); Specific Gravity <= 1.005 (1.005-1.025); Urobilinogen 0.2 mg/dL (Up to 0.2)
[2024-07-08 21:45] LABS: Epithelial Cells Moderate HPF (Negative)
[2024-07-08 21:46] LABS: Ammonia 20 umol/L (11-32)
[2024-07-08 21:46] LABS: Bacteria Rare HPF (Negative); C & S Indicated? No/Sq. Contamination; Casts Negative LPF (Negative); Crystals Negative HPF (Negative); Mucus Trace (Negative); Other Cells Few Transitional (Negative)
[2024-07-08 21:54] LABS: Vitamin B12 230 pg/mL (193-986)
[2024-07-08 21:58] LABS: Folate > 20.0 ng/mL (8.6-20.0)
[2024-07-08 22:03] LABS: *AMPHETAMINES SCREEN URINE Negative (Negative); *BARBITURATES SCREEN URINE Negative (Negative); *BENZODIAZEPINES SCREEN URINE Negative (Negative); Cannabinoids THC Negative (Negative); Cocaine Screen,Urine Negative (Negative); METHADONE URINE SCREEN Negative (Negative); OPIATES URINE SCREEN Positive (Negative)
[2024-07-08 22:05] LABS: Tricyclic Antidepressants Negative (Negative)
[2024-07-08 22:19] LABS: Creatine Kinase 556 U/L (26-192)
[2024-07-08] MEDS: cefTRIAXone 2 GM/50 ML BAG IVPB (22:20)
--- NOTE | 2024-07-08 22:22 | DI.RAD_ITS ---
Exam(s) XR TIB/FIB LT EXAM: XR TIB/FIB LT CLINICAL HISTORY: fracture, L fibula. TECHNIQUE: 2D digital imaging was performed. COMPARISON: CR XR STANDING ALIGNMENT from 11/15/2020 FINDINGS: Two views There is a minimally displaced oblique spiral fracture in the proximal diaphysis of the fibula. No o ther fractures. No osseous lesions. Tibial plateau appears unremarkable. IMPRESSION: Proximal fibular fracture, minimally displaced DATA REPOSITORY: RADIATION DOSE DELIVERED:
--- NOTE | 2024-07-08 22:22 | DI.RAD_ITS ---
Exam(s) XR FOOT LT COMPLETE EXAM: XR FOOT LT COMPLETE CLINICAL HISTORY: L foot pain. TECHNIQUE: 2D digital imaging was performed. COMPARISON: CR XR FOOT LT COMPLETE from 12/22/2022 CR,XR XR FOOT RT COMPLETE from 07/08/2024 FINDINGS: Five in cast views of the left foot compared to 12/22/2022. Again noted is a dorsal fixation plate along the proximal half of the 4th metacarpal. Slight irregularity at the head of the 4th metatarsal may be a subtle fracture site. This is obscure d by the overlying cast material. IMPRESSION: Subtle possible fracture head of the 4th metatarsal. DATA REPOSITORY: RADIATION DOSE DELIVERED:
[2024-07-08 22:35] VITALS: BP 124/70; RESP 16; TEMP 36.8; O2SAT 98
--- NOTE | 2024-07-08 22:35 | DI.VRAD_ITS ---
PROCEDURE INFORMATION: Exam: XR Left Foot Exam date and time: 07/08/2024 10:05 PM Age: 58 years old Clinical indication: Other: L foot pain TECHNIQUE: Imaging protocol: Radiologic exam of the left foot. Views: 3 or more views. COMPARISON: CT LOWER EXTREMITY LT WO 12/29/2022 2:32 PM FINDINGS: Bones/joints: Orthopedic plate in the 4th metatarsal. Bones appear diffusely osteopenic. Moderate degenerative changes in the midfoot. Suspected fracture of the head of the 4th metatarsal. Casting material obscures fine bony detail. Soft tissues: Normal. IMPRESSION: Suspected fracture of the head of the 4th metatarsal. Other chronic findings as noted. Dictated and Authenticated by: Phill Ricardo MD. Orderin Oriana Ac MD
[2024-07-09] MEDS: MORPHine 4 MG/ML SYR IVP (00:21)
--- NOTE | 2024-07-09 09:38 | NUR.NOTE ---
Access chart to get the discharge diagnosis for [facility] billing requisition. Nursing Note:
--- NOTE | 2024-07-09 17:34 | NUR.NOTE ---
Access chart to get CT report to [place] [facility] [place]. CT head,cevical spine, facial w/o; faxed to [facility] [place]. P [phone]. [phone]. Nursing Note:
== END 2024-07-09 00:25 | disposition short-term general hospital (02) ==
PROVIDERS: Emergency Provider Physician Assistant; PCP Physician Assistant Medical
DX: S82.432A Displaced oblique fracture of shaft of left fibula, initial encounter for closed fracture (principal); S92.511A Displaced fracture of proximal phalanx of right lesser toe(s), initial encounter for closed fracture; S92.411A Displaced fracture of proximal phalanx of right great toe, initial encounter for closed fracture; S82.55XA Nondisplaced fracture of medial malleolus of left tibia, initial encounter for closed fracture; S00.83XA Contusion of other part of head, initial encounter; S80.02XA Contusion of left knee, initial encounter; S80.01XA Contusion of right knee, initial encounter; S50.01XA Contusion of right elbow, initial encounter; I10 Essential (primary) hypertension; E78.5 Hyperlipidemia, unspecified; E11.9 Type 2 diabetes mellitus without complications; J44.9 Chronic obstructive pulmonary disease, unspecified; N13.2 Hydronephrosis with renal and ureteral calculous obstruction; N39.0 Urinary tract infection, site not specified; Z96.652 Presence of left artificial knee joint; Z79.4 Long term (current) use of insulin; F17.210 Nicotine dependence, cigarettes, uncomplicated; W18.39XA Other fall on same level, initial encounter; Y93.89 Activity, other specified; Y92.018 Other place in single-family (private) house as the place of occurrence of the external cause
CPT/HCPCS: 36415; 73562; 74177; 80053; 80307; 82550; 83690; 87637; 93005; 96361; 96365; 96367; 96375; 96376; 99285; 70450; 70486; 71260; 72125; 73080; 73590; 73610; 73630; 80320; 81003; 81015; 82140; 82607; 82746; 83605; 83735; 84443; 84484; 85025; 87086; 93010; J0131; J0696; J1885; J2270; J2405; J3490

== ENCOUNTER 2024-07-27 20:25 | Outpatient (REF) | payer MEDICARE, MEDICAID, SELFPAY | END 2024-07-27 20:26 | disposition home or self-care (01) | LOC: NCHCN 20:25 | PROVIDERS: Visit Provider Physician Assistant Medical | DX: R30.0 Dysuria (principal); R82.89 Other abnormal findings on cytological and histological examination of urine | CPT/HCPCS: 87086 ==

== ENCOUNTER 2024-09-05 12:29 | Outpatient (REF) | payer MEDICARE, MEDICAID, SELFPAY ==
[2024-09-09 10:01] LABS: O-desmethyltramadol 18601 ng/mL (Cutoff:25); Tramadol 9836 ng/mL (Cutoff:25)
== END 2024-09-05 12:30 | disposition home or self-care (01) ==
LOC: NCHCN 12:29
PROVIDERS: PCP Physician Assistant Medical; Visit Provider Physician Assistant Medical
DX: M79.7 Fibromyalgia (principal)
CPT/HCPCS: 80373

== ENCOUNTER 2024-11-07 00:09 | Outpatient (CLI) | payer MEDICARE, MEDICAID, SELFPAY ==
--- NOTE | 2024-11-07 10:40 | DI.DEXA_ITS ---
Exam(s) XR DEXA BONE DENSITY W/WO MARIANNE EXAM: XR DEXA BONE DENSITY W/WO MARIANNE CLINICAL HISTORY: ASYMPTOMATIC MENOPAUSAL STATE, POSTMENOPAUSAL,Z78.0 TECHNIQUE: COMPARISON: No exams were available for comparison FINDINGS: Lateral Spine Image: Unremarkable. No compression deformities identified. Left hip: Total T-Score: -1.4 Total Z-Score: -0.6 T- and Z-scores: Findings are consistent with osteopenia. Lumbar Spine: Total T-Score: -2.4 Total Z-Score: -1.2 T- and Z-scores: Note is made of osteoporosis in the L1 and L4 vertebral bodies with T-scores of -2.8 and -2.9 respectively. IMPRESSION: Osteoporosis is seen in 2 vertebral bodies in the lumbar spine.
== END 2024-11-07 00:29 ==
LOC: DI 00:09
PROVIDERS: PCP Physician Assistant Medical; Visit Provider Physician Assistant Medical
DX: M81.0 Age-related osteoporosis without current pathological fracture (principal); Z78.0 Asymptomatic menopausal state
CPT/HCPCS: 77080

== ENCOUNTER 2024-12-08 15:01 | Outpatient (CLI) | payer MEDICARE, MEDICAID, SELFPAY ==
--- NOTE | 2024-12-08 14:45 | DI.RAD_ITS ---
Exam(s) XR SHOULDER LT COMPLETE 2+V EXAM: XR SHOULDER LT COMPLETE 2+V CLINICAL HISTORY: INJURY OF L SHOULDER. TECHNIQUE: 2D digital imaging was performed. COMPARISON: CR XR shoulder LT complete 2+V from 03/29/2018 FINDINGS: 3 views No evidence acute fracture or dislocation glenohumeral joint. There is element of mild-moderate cephalad migration of the humeral head within the osseous glenoid. There are no calcifications in the subacromial space the ipsilateral AC joint is again noted to be widened in this is most probably postsurgical. On the scapular Y-view there appears to be a probable Hill-Sachs deformity on the posterior aspect of the humeral head. There does not appear to be a bony Bankart lesion in the anterior inferior osseous glenoid. There is lucency in mid-lateral humeral head which is probably degenerative cysts IMPRESSION: Multilevel findings as described individually above. Consider follow-up MRI scan for added sensitivity and specificity. DATA REPOSITORY: RADIATION DOSE DELIVERED:
== END 2024-12-08 15:02 | disposition home or self-care (01) ==
LOC: DIORS 15:02
PROVIDERS: PCP Physician Assistant Medical; Referring Provider Physician Assistant Medical; Visit Provider Student in an Organized Health Care Education/Training Program
DX: S42.252D Displaced fracture of greater tuberosity of left humerus, subsequent encounter for fracture with routine healing (principal); R93.7 Abnormal findings on diagnostic imaging of other parts of musculoskeletal system; W19.XXXD Unspecified fall, subsequent encounter; M65.331 Trigger finger, right middle finger
CPT/HCPCS: 99214; 20550; J1010; 73030

== ENCOUNTER 2024-12-12 15:11 | Outpatient (REF) | payer MEDICARE, MEDICAID, SELFPAY ==
[2024-12-12 18:54] LABS: ALT 26 U/L (14-59); AST 15 U/L (15-37); Albumin 4.2 g/dL (3.4-5.0); Alkaline Phosphatase 120 U/L (46-116); Anion Gap 10.0 mmol/L (3-11); BUN 16 mg/dL (7-18); Bilirubin, Total 0.5 mg/dL (0.2-1.0); CO2 27.0 mmol/L (21.0-32.0); Calcium 9.0 mg/dL (8.5-10.1); Calculated LDL 94 mg/dL (<100); Chloride 104 mmol/L (98-107); Cholesterol 169 mg/dL (<200); Estimated GFR 100.81 (mL/min/1.73m2); Folate 9.0 ng/mL (8.6-20.0); Glucose 133 mg/dL (74-106); HDL Cholesterol 48 mg/dL (>or=50); Potassium 3.8 mmol/L (3.5-5.1); Sodium 141 mmol/L (136-145); Total Protein 7.1 g/dL (6.4-8.2); Triglyceride 137 mg/dL (<150); Vitamin B12 214 pg/mL (193-986); Vitamin D 25 Total 24 ng/mL (30-100)
== END 2024-12-12 15:12 | disposition home or self-care (01) ==
LOC: NCHCN 15:11
PROVIDERS: PCP Physician Assistant Medical; Visit Provider Physician Assistant Medical
DX: E78.5 Hyperlipidemia, unspecified (principal); M81.0 Age-related osteoporosis without current pathological fracture; K13.79 Other lesions of oral mucosa
CPT/HCPCS: 80053; 80061; 82306; 82607; 82746

== ENCOUNTER 2025-01-03 00:53 | Outpatient (CLI) | payer MEDICARE, MEDICAID, SELFPAY ==
--- NOTE | 2025-01-03 06:30 | DI.CT_ITS ---
Exam(s) CT UPPER EXTREMITY LT WO EXAM: CT UPPER EXTREMITY LT WO CLINICAL HISTORY: SUBACUTE DISP GR TUB FX,RTC TEARING,SURGICAL PLANNING,INJURY,S49.92XA TECHNIQUE: Imaging Protocol: Axial computed tomography images with coronal and sagittal reformatted images were created and reviewed. CONTRAST MATERIAL: Noncontrast- COMPARISON: CR XR SHOULDER LT COMPLETE 2+V from 12/08/2024 FINDINGS: Bones: There is no evidence of acute fracture or dislocation. There is flattening of the humeral head consistent with an old Hill-Sachs lesion. There are displaced bony fragment seen posterior to the glenoid. No glenoid fracture. No joint space loose bodies. Joints prior section of the distal clavicle. Mild degenerative changes of the glenohumeral joint. Humeral head appears somewhat superiorly and posteriorly subluxed. IMPRESSION: [place]-Sachs lesion with displaced bony fragments seen posterior to the level of the glenoid. No glenoid fracture. RADIATION DOSE DELIVERED: 222.77mGy.cm Total DLP DATA REPOSITORY: All CT scans at this facility are submitted to the National Radiology Data Registry (NRDR) Dose Index Registry (DIR) with the [employer] (ACR). RADIATION OPTIMIZATION: All CT scans at this facility use at least one of these dose optimization techniques: automated exposure control; mA and/or kV adjustment per patient size (includes targeted exams where dose is matched to clinical indication); or iterative reconstruction.
--- NOTE | 2025-01-03 06:30 | DI.MRI_ITS ---
Exam(s) MR UPPER JOINT LT WO EXAM: MR UPPER JOINT LT WO CLINICAL HISTORY: SUBACUTE DISPLACED GREATER TUBEROSITY FX,SURGICAL PLANNING,INJURY,LT. TECHNIQUE: Multiplanar multisequence MRI was performed. COMPARISON: Plain films 08 December 2024 FINDINGS: BONES: There is no acute fracture or contusion pattern. Flattening of the posterior humeral head consistent with old Hill-Sachs lesion. Large bony fragments noted posterior to the glenoid, consistent with displaced fragments from the humeral head. JOINTS: Prior distal clavicular resection.. There is a glenohumeral joint effusion. The humeral head is high riding, approaching the undersurface of the acromion. TENDONS: Supraspinatus: Full-thickness tear with retraction to the level of the glenoid. Infraspinatus: Full-thickness tear with retraction to the level of the glenoid. Subscapularis: Unremarkable. Teres Minor: Unremarkable. Biceps and [place]: Upper portion not well seen. MUSCLES: Moderate atrophy of the supraspinatus and infraspinatus muscles. GLENOID LABRUM: Degenerative changes. SOFT TISSUES: Unremarkable. IMPRESSION: Full-thickness tears of the supraspinatus and infraspinatus tendons with retraction. Moderate muscle atrophy. Superior portion of the long head of biceps tendon is not well visualized. [place]-Sachs lesion and displaced bony fragments posterior to the level of the glenoid. DATA REPOSITORY:
== END 2025-01-03 01:13 ==
LOC: DI 00:53
PROVIDERS: PCP Physician Assistant Medical; Visit Provider Student in an Organized Health Care Education/Training Program
DX: S46.012A Strain of muscle(s) and tendon(s) of the rotator cuff of left shoulder, initial encounter (principal); X58.XXXA Exposure to other specified factors, initial encounter
CPT/HCPCS: 71271; 73200; 73221

== ENCOUNTER 2025-01-03 00:57 | Outpatient (CLI) | payer MEDICARE, MEDICAID, SELFPAY ==
--- NOTE | 2025-01-03 | DI.CTLCSR_ITS ---
Exam(s) CT CHEST LUNG CANCER SCREEN EXAM: CT CHEST LUNG CANCER SCREEN CLINICAL HISTORY: Cigarette smoker, F17.210-nicotine dependence TECHNIQUE: Imaging Protocol: Axial computed tomography images with coronal and sagittal reformatted images were created and reviewed. Low dose screening protocol. COMPARISON: CT CT CHEST/ABD/PEL W from 07/08/2024 FINDINGS: Tracheobronchial tree: No bronchiectasis or mucus plugging. Mediastinum and [place]: No dominant adenopathy or fluid collection. Pulmonary parenchyma: No consolidation or dominant measurable mass. Minimal emphysematous changes. No significant interstitial changes. Lung Nodules: None. Pleura: No effusion. No pneumothorax. Heart: The heart is not dilated. No coronary artery calcifications are seen. No pericardial effusion. Aorta: Thoracic aorta non-dilated. Upper abdomen: Unremarkable. Bones: Old bilateral rib fractures. Soft Tissues: Unremarkable. IMPRESSION: No suspicious pulmonary nodules. Lung RADS Cat 1 - Negative: No nodules and definitely benign nodules Lung-RADS 1.0 CATEGORIES: Category 0 - Prior chest CT exam(s) being located for comparison. Category 1 - Annual screening in 12 months. No nodules or definitely benign nodules. Category 2 - Annual screening in 12 months. Benign appearance. Nodules with low likelihood of becoming active cancer. Category 3 - 6-month follow-up. Probably benign. Short-term follow-up suggested. Nodules with low likelihood of becoming active cancer. Category 4A - 3-month follow-up and CT/PET if >8 mm in size. Suspicious finding. Findings which require additional testing. Category 4B - Findings which require additional testing and tissue sampling. Category 4X - Category 3 or 4 nodules with additional features or imaging findings that increases the suspicion of malignancy. Modifier S- Potentially clinically significant findings (non lung cancer) RADIATION DOSE DELIVERED: 31.48mGy.cm Total DLP DATA REPOSITORY: All CT scans at this facility are submitted to the National Radiology Data Registry (NRDR) Dose Index Registry (DIR) with the [employer] (ACR). RADIATION OPTIMIZATION: All CT scans at this facility use at least one of these dose optimization techniques: automated exposure control; mA and/or kV adjustment per patient size (includes targeted exams where dose is matched to clinical indication); or iterative reconstruction.
== END 2025-01-03 01:17 ==
LOC: DI 00:57
PROVIDERS: PCP Physician Assistant Medical; Visit Provider Physician Assistant Medical
DX: Z12.2 Encounter for screening for malignant neoplasm of respiratory organs (principal); F17.210 Nicotine dependence, cigarettes, uncomplicated
CPT/HCPCS: 71271

== ENCOUNTER → 2025-01-10 09:13 | Outpatient (BNVA) | payer MEDICARE, MEDICAID, SELFPAY | PROVIDERS: PCP Physician Assistant Medical; Referring Provider Physician Assistant Medical; Visit Provider Student in an Organized Health Care Education/Training Program | DX: S42.202A Unspecified fracture of upper end of left humerus, initial encounter for closed fracture (principal); M75.102 Unspecified rotator cuff tear or rupture of left shoulder, not specified as traumatic; W19.XXXA Unspecified fall, initial encounter; E11.59 Type 2 diabetes mellitus with other circulatory complications; I10 Essential (primary) hypertension; J44.9 Chronic obstructive pulmonary disease, unspecified; Z72.0 Tobacco use | CPT/HCPCS: 99215 ==

== ENCOUNTER 2025-01-24 12:53 | Outpatient (CLI) | payer MEDICARE, MEDICAID, SELFPAY ==
--- NOTE | 2025-01-24 11:15 | DI.RAD_ITS ---
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 TECHNIQUE: 2D digital imaging was performed. COMPARISON: No exams were available for comparison FINDINGS: The exam is limited by patient positioning, overlying soft tissues as well as overlying material external to the patient. BONES: No gross evidence of fracture or bony destructive lesion. JOINTS: No evidence of temporomandibular joint dislocation or subluxation. SOFT TISSUES: Unremarkable. IMPRESSION: Limited exam. No acute abnormality is visible. DATA REPOSITORY: RADIATION DOSE DELIVERED:
== END 2025-01-24 13:13 ==
PROVIDERS: PCP Physician Assistant Medical; Visit Provider Student in an Organized Health Care Education/Training Program
DX: M27.2 Inflammatory conditions of jaws (principal)
CPT/HCPCS: 70110

== ENCOUNTER 2025-01-24 15:59 | Outpatient (CLI) | payer MEDICARE, MEDICAID, SELFPAY ==
[2025-01-24 12:12] LABS: Abs Immature Grans 0.05 10^3/uL (0.0-0.06); HCT 46.2 % (36.0-46.0); HGB 15.4 g/dL (11.2-15.7); Immature Grans % 0.4 %; MCH 31.2 pg (27.0-33.0); MCHC 33.3 % (32.0-36.0); MCV 94 fL (80-95); MPV 10.7 fL (8.0-11.0); Platelet Count 242 10^3/uL (130-400); RBC 4.94 10^6/uL (3.93-5.22); RDW 14.4 % (11.7-14.6); RDW-SD 50.1 fL; WBC 14.25 10^3/uL (4.4-10.8)
[2025-01-24 12:19] LABS: ESR 8 mm/hr (0-30)
[2025-01-24 12:26] LABS: C-Reactive Protein 0.67 mg/dL (<or=0.5)
== END 2025-01-24 16:00 | disposition home or self-care (01) ==
LOC: LBO 15:59
PROVIDERS: PCP Physician Assistant Medical; Visit Provider Student in an Organized Health Care Education/Training Program
DX: M27.2 Inflammatory conditions of jaws (principal); A41.9 Sepsis, unspecified organism; N39.0 Urinary tract infection, site not specified
CPT/HCPCS: 36415; 85652; 70110; 85025; 86140

== ENCOUNTER 2025-02-14 16:13 | Outpatient (REF) | payer MEDICARE, MEDICAID, SELFPAY ==
[2025-02-14 15:18] LABS: Abs Immature Grans 0.02 10^3/uL (0.0-0.06); HCT 44.3 % (36.0-46.0); HGB 14.9 g/dL (11.2-15.7); Immature Grans % 0.2 %; MCH 31.6 pg (27.0-33.0); MCHC 33.6 % (32.0-36.0); MCV 94 fL (80-95); MPV 11.2 fL (8.0-11.0); Platelet Count 213 10^3/uL (130-400); RBC 4.71 10^6/uL (3.93-5.22); RDW 13.8 % (11.7-14.6); RDW-SD 48.9 fL; WBC 8.95 10^3/uL (4.4-10.8)
[2025-02-14 17:16] LABS: C-Reactive Protein 0.81 mg/dL (<or=0.5)
== END 2025-02-14 16:14 | disposition home or self-care (01) ==
LOC: NCHCN 16:13
PROVIDERS: PCP Physician Assistant Medical; Visit Provider Physician Assistant Medical
DX: Z87.440 Personal history of urinary (tract) infections (principal); D72.829 Elevated white blood cell count, unspecified
CPT/HCPCS: 85025; 86140; 87086

== ENCOUNTER → 2025-02-28 10:03 | Outpatient (BNVA) | payer MEDICARE, MEDICAID, SELFPAY | PROVIDERS: PCP Physician Assistant Medical; Referring Provider Physician Assistant Medical; Visit Provider Student in an Organized Health Care Education/Training Program | DX: S42.202A Unspecified fracture of upper end of left humerus, initial encounter for closed fracture (principal); M75.102 Unspecified rotator cuff tear or rupture of left shoulder, not specified as traumatic; E11.59 Type 2 diabetes mellitus with other circulatory complications; I10 Essential (primary) hypertension; J44.9 Chronic obstructive pulmonary disease, unspecified | CPT/HCPCS: 99215 ==

== ENCOUNTER 2025-03-10 05:51 | Day surgery (SDC) | payer MEDICARE, MEDICAID, SELFPAY ==
[2025-03-10] VITALS (16 sets, daily range): BP systolic 127–185; BP diastolic 64–81; PULSE 79–90; RESP 13–30; TEMP 36.4–37.3; O2SAT 94–98; BMI 31.8
[2025-03-10] MEDS: Lactated Ringers 1,000 ML 30 ML IV (06:41)
--- NOTE | 2025-03-10 07:11 | W.PM.DSUDISC ---
Date of service: 03/10/25 Discharge Plan Disposition Patient Disposition: Home Condition: Stable Discharge Details Attending Provider: Tor Yeh Primary Care Provider: Whitney Vanegas Home Meds and New Rx's Prescriptions: New naproxen 250 mg tablet 250 mg PO BID PRN (Reason: moderate pain and swelling) Qty: 30 0RF Rx Instructions: take with a meal oxycodone 5 mg tablet 5 - 10 mg PO .q4-6h MDD 30 mg PRN (Reason: severe pain) Qty: 18 0RF Continued (DME) walker misc See Dose Instructions .ROUTE .MEDSUPPLY Qty: 1 0RF Dose Instruction: As directed Rx Instructions: As directed; rolling walker with seat & hand brakes; Ht= 60in clonidine HCl 0.1 mg tablet 0.1 mg PO BID insulin aspart U-100 [Novolog FlexPen U-100 Insulin] 100 unit/mL (3 mL) insulin pen 15 unit subcut TID varenicline tartrate 0.5 mg (11)- 1 mg (42) tablets,dose pack See Rx Instructions PO PER PKG DIR Rx Instructions: PO PER PKG DIR meclizine 25 mg tablet 25 mg PO DAILY Patient Comments: no current rx cholecalciferol (vitamin D3) 25 mcg (1,000 unit) capsule 25 mcg PO DAILY budesonide-formoterol [Symbicort] 80-4.5 mcg/actuation HFA aerosol inhaler 2 puff inhalation BID famotidine [Acid Application Support Administrator (famotidine)] 20 mg tablet 20 mg PO QHS omeprazole 20 mg capsule,delayed release(DR/EC) 20 mg PO BID baclofen 10 mg tablet 20 mg PO TID fluticasone propionate 50 mcg/actuation spray,suspension 1 spray intranasal DAILY Rx Instructions: administer into each nostril acetaminophen 500 mg tablet 1,000 mg PO TID Qty: 90 0RF albuterol sulfate 90 mcg/actuation HFA aerosol inhaler 2 inh Inhalation Q4H PRN zolpidem 10 mg Tablet 10 mg PO QHS PRN montelukast 10 mg Tablet 10 mg PO DAILY epinephrine [EpiPen 2-Leonidas] 0.3 MG/0.3 ML auto-injector 1 dis.syr .Route DIRECTED Patient Comments: never had to use simvastatin 20 mg tablet 40 mg PO QPM ipratropium-albuterol 0.5 mg-3 mg(2.5 mg base)/3 mL Solution For Nebulization 3 ml UPD Q6H PRN PRNQty: 0 0RF docusate sodium [Colace] 100 mg Capsule 100 mg PO BID Qty: 0 0RF Discontinued ibuprofen 600 mg tablet 600 mg PO TID PRN (Reason: pain) Qty: 90 0RF Discharge Instructions Additional Instructions: Surgery: Left fracture reverse total shoulder arthroplasty (subscapularis repair) 03/10/25 Activity: Do not lift anything heavier than a coffee. You should keep your arm at your side in a relatively neutral position at all times except for gentle range of motion exercises, physical therapy, and essential activities. You should use the sling whenever you are out of the house. At home it is best to remove the sling and rest the arm on a pillow at your side or support the operative side with your other hand. A physical therapy prescription will be sent electronically to start in about 3 weeks. CONSERVATIVE Reverse TSA Protocol. Prescriptions: Naproxen 250 mg take 1 every 12 hours with a meal as needed for moderate pain Oxycodone 5 mg take 1-2 every 4-6 hours as needed for severe pain You may use vooh-vcz-reegkej Tylenol (acetaminophen) as needed for mild pain. These pain medications may be taken all at once or in different combinations as needed. Also, recommend Colace (docusate) as a stool softener as surgery and pain medicine cause constipation. You may try zyuh-vff-dsxygdz diphenhydramine (Benadryl) 25-50 mg nightly as a sleep aid Dressings: Leave dressing in place until follow-up. Keep clean and dry at all times. No showers please. Follow-up: 10-[address] Yeh You may take off the leg compression stockings this evening at home. You may also leave them on a few days longer if you have a history of leg swelling or edema. Please call the office during business hours with any questions or concerns. Let us know right away if you develop any redness, drainage, fevers, chest pain, or trouble breathing. Do not drink alcohol or drive for at least 24 hours after anesthesia. Stand Alone Forms: Anesthesia Discharge Inst., [place].Nerve Block Instructions, Gisselle Perdue (DSU) Referrals: Tor Yeh MD [ [facility] STAFF PHYSICIAN, Orthopaedic Surgical] - 03/22/25 9:15 am Discharge Orders Discharge Orders: Discharge Order (Routine); Ordered 03/10/25 Ordered By: Prema Mcnair DS: Diagnosis Discharge Diagnosis (1) Closed fracture of left proximal humerus: Status: Acute (2) Left rotator cuff tear: Status: Acute
--- NOTE | 2025-03-10 07:21 | ROE_ITS ---
Operative Note Operative Note PRE-OP DIAGNOSIS: Left: 1. Chronic displaced greater tuberosity proximal humerus fracture with resulting rotator cuff arthropathy 2. Long head biceps partial tearing POST-OP DIAGNOSIS: same Left: 1. Chronic displaced greater tuberosity proximal humerus fracture with resulting rotator cuff arthropathy 2. Chronic complete proximal biceps rupture PROCEDURE: Left: 1. Fracture reverse total shoulder arthroplasty with subscapularis repair, CPT # 35097 The field administrative assistant was medically required as this procedure involves retraction, protection of neurovascular structures, and manipulation of multiple instruments and implants at the same time, which cannot be done without a skilled field administrative assistant. INTERMODAL CUSTOMER SERVICE: Prema Mcnair ANESTHESIA TYPE: Local By Surgeon, General LMA/ETT and Primary Nerve Block Refer to Anesthesia Record ESTIMATED BLOOD LOSS: 200 COMPLICATIONS: None Patient was transported to: PACU Patient's condition: stable Implants: [employer] modular glenoid system baseplate 24 mm, 10 degree full wedge augment [employer] modular glenoid system central post 25 mm [employer] modular glenoid system peripheral locking screws 36 mm inferior, 32 mm superior, 16 mm posterior, 16 mm anterior [employer] modular glenoid system glenosphere 36 +4 mm lateralized [employer] humeral stem 135 degrees size 7 [employer] suture cup size 36 posterior offset [employer] humeral insert size 36 +6 mm Indications: Please see complete medical record for details. Findings: Absent intra-articular long head biceps consistent with chronic rupture. Anterior capsular subscapularis moderate contracture. Deficient superior and posterior superior supraspinatus infraspinatus rotator cuff with relatively chronic?appearing void greater tuberosity displaced fracture. Early central glenoid arthritis. Procedure Description: In the operating room, general anesthesia was induced. The patient was positioned beachchair on the operating room table. All bony prominences were well-padded. Preoperative antibiotics were administered. The shoulder was prepped and draped in the usual sterile fashion for shoulder arthroplasty. The correct patient, procedure, and side of the procedure were all verified prior to incision. The deltopectoral approach was preinjected with 0.25% bupivacaine containing epinephrine and taken to the anterior shoulder. Care was taken to bluntly dissect the interval between the deltoid and pectoralis major muscles and to identify the cephalic vein within its fat stripe. The the vein was mobilized laterally. Subdeltoid space and conjoined tendon were freed of adhesions. Long head of the biceps tendon was not identified in the joint or between the lesser tuberosity and the greater tuberosity fracture area. The upper margin of the pectoralis major was minimally released. A subscapularis peel was performed taking care to release the entire tendon in a full-thickness fashion from superior to inferior and lateral to medial while bringing the arm gradually into external rotation. Care was taken to avoid the axillary nerve by only working on the bone inferiorly and medially. The subscapularis was tagged using SutureTape in a Simon-Wesley fashion and traction used confirm appropriate mobilization of the subscapularis tendon after gentle blunt dissection was used to free up the space anterior and posterior to it. It also needed an interval slide and some release from the supraspinatus remnant medially for proper excursion for repair. The supraspinous infraspinatus were largely devoid and retracted medial and out of the zone of surgery or any impingement. Appropriate coagulation was achieved especially interiorly. The anatomic neck was cut using an oscillating saw with the humeral head bone brought back table in case there was a need for future bone grafting. The posterior retracted greater tuberosity fragment was then palpated and well posterior and medial to any zone of impingement or problem and well adhered and encapsulated and left alone. The proximal humerus was delivered from the wound with adduction and external rotation. The proximal humeral protection plate was used to provisionally confirm suture cup and glenosphere size. Reamers were started appropriately posterior to the bicipital groove taking care to maintain in line approach with the humeral canal. Sequential reaming was done from size 5 up to size 7. Next, the broaches were sequentially used to open the proximal humerus starting with a size 5 and going up to size 7 and sunk to the appropriate depth while maintaining approximately 25 degrees retroversion. There was good metaphyseal fit and rotational control of the proximal humerus with this size. The posterior offset guide was used to ream for the suture cup. Attention was then turned to the glenoid and retractors were placed and a circumferential release performed using the long head of the biceps remnant to remove soft tissue about the glenoid rim. Care was taken inferiorly to work on bone only between 5 and 7:00 o'clock and bluntly elevate tissues inferiorly. The VIP guide was placed on the glenoid and used to confirm placement and trajectory of the central guidepin. The guidepin was inserted and advanced just through the far cortex ensuring adequate central fixation length. The glenoid was prepared according to surgical specialist specifications for a augmented baseplate and central post. The baseplate was impacted onto the glenoid surface. The locking guide was then used to drill and place appropriately lengthed inferior, superior, anterior, and posterior screws. The glenosphere was applied with the battery vent plug inserter and then impacted to engage the Burks taper. It was then locked with appropriate countersinking of the setscrew. The glenosphere was inspected and found to have good fit, appropriate positioning, and no soft tissue or bony impingement. Attention was then turned back to the proximal humerus. The humeral trial cup was connected. Trialing was commenced with +3 mm liner. The shoulder was reduced and taken through range of motion. Trial components were built up to +6 mm liner to achieve excellent stability and appropriate tension on the deltoid and conjoined tension. The trial components were removed from the proximal humerus. The wound was copiously irrigated with normal saline. A 2 mm drill was used to drill 2 drill holes in the bicipital groove for later subscapularis repair. The the proximal humeral stem and suture cup were assembled and brought over the proximal humerus. Suture tapes were placed superiorly inferiorly at the medial and lateral aspect of the suture cup. The lateral tapes were brought out the drill holes. A small amount of vancomycin powder was distributed in the proximal humerus. The humeral component and suture cup were impacted into place. The trial liner was added, and the shoulder was reduced and range of motion, stability, and tension confirmed to be appropriate. The final liner was then connected, and range of motion, stability, and tension confirmed. The shoulder was copiously irrigated with Betadine and normal saline. Vancomycin powder was distributed deeply about the shoulder and through subcutaneous tissues. The arm was placed in about 30 degrees of external rotation. The subscapularis was reduced and repaired using the pairs of SutureTape in a speed bridge type configuration. The arm was taken into more external rotation without any displacement of the subscapularis repair. The deltopectoral interval was approximated with 2-0 Monocryl burying the cephalic vein. Subcutaneous tissue was irrigated then closed using 2-0 Monocryl in a buried interrupted fashion. Skin was closed using 3-0 Monocryl in a buried subcuticular fashion. Skin glue was applied to the incision. A silver impregnated bandage was placed over the incision. The extremity was placed into a shoulder immobilizer. The patient awoke from anesthesia without complication and was taken to the recovery room in stable condition. Date of Procedure: 03/10/25
--- NOTE | 2025-03-10 07:48 | W.ANESPRE ---
General Info Date of Service Date Performed: 03/10/25 Height: 5 ft 1 in Weight: 76.3 kg Body Mass Index (BMI): 31.8 Surgical Procedure: Operation Date: 03/10/25 07:40 Proposed Procedure Side Surgeon p Shoulder Reverse Total Arthroplasty, Biceps Tenodesis,Possible Fragment Excision Left Tor Yeh MD Meds Allergies and Home Medications Allergies Allergy/AdvReac Type Severity Reaction Status Date / Time adhesive tape Allergy Intermediate Hives Verified 03/10/25 06:08 venom-honey bee Allergy Intermediate severe Verified 03/10/25 06:08 local reaction venom-wasp Allergy Intermediate severe Verified 03/10/25 06:08 local reaction doxycycline Allergy Mild Skin Rash Verified 03/10/25 06:08 Sulfa (Sulfonamide Allergy Mild Skin Rash Verified 03/10/25 06:08 Antibiotics) gabapentin AdvReac Unknown Other (See Verified 03/10/25 06:08 Comment) Antibiotics AdvReac Mild Other (See Uncoded 03/10/25 06:08 Comment) Home Medication ?Medication ?Instructions ?Recorded epinephrine 0.3 mg/0.3 mL 1 dis.syr .Route DIRECTED 04/13/17 injection, auto-injector (EpiPen 2-Leonidas) walker #1 ea 04/29/18 albuterol sulfate 90 mcg/actuation 2 inh inhalation Q4H PRN 06/14/18 aerosol inhaler docusate sodium 100 mg capsule 100 mg PO BID #0 caps 09/14/18 (Colace) ipratropium 0.5 mg-albuterol 3 mg 3 ml UPD Q6H PRN PRN #0 mL 09/14/18 (2.5 mg base)/3 mL nebulization soln montelukast 10 mg tablet 10 mg PO DAILY 03/09/19 zolpidem 10 mg tablet 10 mg PO QHS PRN 03/09/19 simvastatin 20 mg tablet 40 mg PO QPM 10/11/20 baclofen 10 mg tablet 20 mg PO TID 05/31/21 budesonide-formoterol HFA 80 2 puff inhalation BID 05/31/21 mcg-4.5 mcg/actuation aerosol inhaler (Symbicort) cholecalciferol (vitamin D3) 25 25 mcg PO DAILY 05/31/21 mcg (1,000 unit) capsule famotidine 20 mg tablet (Acid 20 mg PO QHS 05/31/21 Hair Spring Winder (famotidine)) fluticasone propionate 50 1 spray intranasal DAILY 05/31/21 mcg/actuation nasal spray,suspension omeprazole 20 mg capsule,delayed 20 mg PO BID 05/31/21 release ibuprofen 600 mg tablet 600 mg PO TID PRN pain #90 tabs 03/25/23 acetaminophen 500 mg tablet 1,000 mg (2 x 500 mg) PO TID #90 04/06/23 tabs meclizine 25 mg tablet 25 mg PO DAILY 07/08/24 clonidine HCl 0.1 mg tablet 0.1 mg PO BID 01/10/25 insulin aspart U-100 100 unit/mL 15 unit subcut TID 01/10/25 (3 mL) subcutaneous pen (Novolog FlexPen U-100 Insulin aspart) varenicline tartrate 0.5 mg (11)-1 See Rx Instructions PO PER PKG DIR 01/10/25 mg (42) tablets in a dose pack Current Visit Medications: Current Medications Generic Name Dose Route Start Last Admin Trade Name Renae PRN Reason Stop Dose Admin Droperidol 0.625 mg 03/10/25 06:38 Droperidol 5 Mg/2 Ml Vial IVP 04/09/25 06:37 DIRECTED PRN Ephedrine Sulfate 0 mg 03/10/25 06:38 Ephedrine 25 Mg/5 Ml Syringe IVP 04/09/25 06:37 DIRECTED PRN Fentanyl 0 mcg 03/10/25 06:38 Fentanyl 100 Mcg/2 Ml Vial IVP 04/09/25 06:37 DIRECTED PRN Hydromorphone HCl 0 mg 03/10/25 06:38 Hydromorphone 2 Mg/Ml Syr IVP 04/09/25 06:37 DIRECTED PRN Ringer's Solution 1,000 mls @ 30 mls/hr 03/10/25 06:00 03/10/25 06:41 IV 03/10/25 23:59 30 mls/hr INFUSION DAYANA Administration Cefazolin Sodium/Dextrose 2 gm in 50 mls @ 100 mls/hr 03/10/25 06:00 Ancef Duplex IVPB 03/10/25 23:59 PREOP DAYANA Tranexamic Acid/Sodium Chloride 1,000 mg in 100 mls @ 600 mls/hr 03/10/25 06:00 IVPB 03/10/25 23:59 PREOP DAYANA Cefazolin Sodium/Dextrose 1 gm in 50 mls @ 100 mls/hr 03/10/25 11:30 Ancef Duplex IVPB 03/10/25 11:59 NOW ONE IV Miscellaneous Supplies 1 each 03/10/25 06:00 Iv Access IV 03/10/25 23:59 DIRECTED DAYANA Lactobacillus Acidophilus/Casei 1 cap 03/10/25 12:30 L. Acidophilus, Casei, Rhamnosus Cap PO 03/10/25 12:31 DAILY ONE Naloxone HCl 0 mg 03/10/25 06:38 Naloxone 0.4 Mg/Ml Vial IVP 04/09/25 06:37 PRN PRN Oxycodone HCl 0 mg 03/10/25 07:10 Oxycodone 5 Mg Tab PO 04/09/25 07:09 Q3H PRN PRN Pain Sodium Chloride 0 ml 03/10/25 06:00 Normal Saline Flush 10 Ml Syr IV 03/10/25 23:59 PRN PRN Sodium Chloride 0 ml 03/10/25 06:00 Normal Saline 10 Ml Vial IJ 03/10/25 23:59 DIRECTED PRN Sterile Water 0 ml 03/10/25 06:00 Water,Injection,Sterile 10 Ml Vial IJ 03/10/25 23:59 DIRECTED PRN PFSH Active Problems Active Problems: Problem Status Onset Code Sepsis due to urinary tract infection Acute A41.9, N39.0 Osteomyelitis of mandible Acute M27.2 Trigger finger, right middle finger Acute M65.331 Left rotator cuff tear Acute M75.102 Closed fracture of left proximal humerus Acute S42.202A Arthritis of first metatarsophalangeal (MTP) joint of right foot Chronic M19.071 Arthritis of left midfoot Acute M19.072 Arthritis of right midfoot Chronic M19.071 Visit for wound check Acute Z51.89 Prurigo nodularis Acute L28.1 Skin lesion of breast Acute L98.8 Breast lesion Acute N64.9 Nonhealing surgical wound Acute T81.89XA IDDM (insulin dependent diabetes mellitus) Chronic E11.9, Z79.4 Tobacco abuse Acute Z72.0 LORRI (obstructive sleep apnea) Chronic G47.33 Encephalopathy acute Resolved G93.40 GI bleed due to NSAIDs Acute K92.2, T39.395A COPD with acute exacerbation Acute J44.1 Tobacco use disorder Acute 05/09/13 F17.200 Obstructive sleep apnea (adult) (pediatric) Acute 09/12/13 G47.33 Medical History Medical History Injury of left shoulder Traumatic arthritis of right foot Lateral epicondylitis of right elbow Unwitnessed fall Closed head injury Twitching Dislocation of tarsometatarsal joint of right foot Occult blood positive stool DVT prophylaxis MANUEL (acute kidney injury) Macrocytosis Lung nodule Foot fracture, left Foot fracture, right Ambulatory dysfunction Macrocytic anemia Sepsis CAP (community acquired pneumonia) Osteoarthritis of right knee Hypotension pt. stated this is related to her medication, and her BP fluctuates Chronic low back pain with right-sided sciatica Right lumbosacral radiculopathy Neuropathy of right lower extremity Tendinitis of right rotator cuff Rhinitis (09/12/13) Tendinitis of left rotator cuff (01/05/17) Postnasal drip (05/09/13) Lymphocytic colitis (11/06/17) Hypertrophy of nasal turbinates (09/12/13) Cephalalgia (05/09/13) Arthritis of left acromioclavicular joint (01/05/17) Allergic rhinitis (09/26/13) Acquired deviated nasal septum (09/12/13) Asthma Obesity Hypertension GERD (gastroesophageal reflux disease) Tobacco use Lumbar back pain Menopause syndrome Hyperlipidemia Headache Heel pain, bilateral Fibromyalgia Skin rash Diarrhea Depression pt. denies Urinary frequency Dry skin Chronic pain Narcotic drug use pt. denies this Hematuria Impingement syndrome, shoulder, left Long-term insulin use Generalized anxiety disorder Obstructive sleep apnea CPAP Surgical History Surgical History History of total right knee replacement Hx of foot surgery bilateral Painful orthopaedic hardware Right foot s/p removal 03/08/2019 H/O thumb surgery Bilateral H/O carpal tunnel repair Bilateral H/O elbow surgery S/P left knee arthroscopy S/P right knee arthroscopy H/O: hysterectomy S/P arthroscopy of left shoulder 03/2017 Colonoscopy - MAC (11/06/17) Tobacco Smoking/Tobacco Use Status: Current every day Tobacco Type: cigarettes Years smoked: 43 Passive smoking exposure: Yes Alcohol Alcohol Intake: former Substance Use Substance use: Never Substance use type: does not use Details: smoked cigarettes this morning Vital Signs and Lab Results Vital Signs Most Recent Vital Signs in EMR: Most Recent Vital Signs Temp Pulse Resp BP Pulse Ox 36.4 C L 90 16 175/80 H 98 03/10/25 06:09 03/10/25 06:09 03/10/25 06:09 03/10/25 06:09 03/10/25 06:09 Point of Care Results Point of Care Results: Finger Stick Blood Glucose 169 03/10/25 06:15 Lab Results Complete Blood Count: WBC, (4.4-10.8) 8.95 10^3/uL 02/14/25, 12:15 RBC, (3.93-5.22) 4.71 10^6/uL 02/14/25, 12:15 Hgb, (11.2-15.7) 14.9 g/dL 02/14/25, 12:15 Hct, (36.0-46.0) 44.3 % 02/14/25, 12:15 Plt Count, (130-400) 213 10^3/uL 02/14/25, 12:15 Complete Metabolic Panel: C-Reactive Protein, (<or=0.5) 0.81 mg/dL H 02/14/25, 12:15 Imaging and Studies Imaging and Studies Study information below may be from another EMR and interpreted by another provider. Please see original notes in EMR for more complete details. Echocardiogram Summary: 11/14: LVEF 55%, trace AR. RVSP 26 mmhg. Carotid Artery Summary:: Date: 09/12/18 IMPRESSION: No significant internal carotid artery stenosis or plaque. Anesthesia Assessment and Plan Anesthesia History Personal History: No History of Anesthesia Complications Family History: No Family History of Anesthesia Complications Exercise Tolerance Exercise Tolerance: Metabolic Equivalents>4 Pertinent Negatives Pertinent Negatives: No Symptoms of GERD Cardiac & Pulmonary Exam Cardiac Exam: Normal S1/S2 Heart Sounds Pulmonary Exam: Clear Bilateral Breath Sounds Implantable Cardiac Device Does patient have a Pacemaker or an ICD?: No Airway Exam Known Difficult Airway: No Mallampati Class: 2 Mouth Opening: Normal (> 3cm) Thyromental Distance: Greater than 3 cm Neck Range of Motion: Full ROM Neck Circumference: Normal Teeth Condition: Edentulous ASA Classification ASA Score: ASA 3 Emergency Case?: No NPO Status NPO Status: NPO Clears >2 hours, Solids >8 hours Anesthesia Plan Resuscitation Status: Full Code Anesthesia Technique: General Anesthesia Airway Planned: Endotracheal Tube Monitors Used: Standard Monitors and SedLine
[2025-03-10] MEDS: ceFAZolin 2 GM/50 ML BAG IVPB (08:25)
[2025-03-10] MEDS: TRANEXAMIC ACID/SOD. CHL. 1,000 MG/100 ML BAG 600 MG IVPB (08:34)
[2025-03-10] MEDS: Bupivacaine 0.25% Pres-Free W/EPI 30 ML VIAL (09:17)
[2025-03-10] MEDS: Vancomycin 1,000 MG VIAL 1000 MG (09:18)
--- NOTE | 2025-03-10 09:30 | W.ANESNERVE ---
Nerve Block Single Injection Procedure Date and Time Date Performed: 03/10/25 Procedure Start: 07:35 Location Where Procedure Performed Procedure Location: Day Surgery Unit Reason Performed: Postoperative Analgesia Requesting Provider: Tor Yeh Timeout Performed Timeout Performed: Yes Monitoring Used ECG, Blood Pressure, SpO2 and See EMR for corresponding vital signs Sterility Sterility: Hand Hygiene, Surgical Cap, Surgical Mask, Sterile Gloves, Eye Protection and Chlorhexidine Sedation Given During Procedure Sedation Given (Indicate Dose Given): Versed IV Dose:: 2mg IVP Patient Mental Status Patient Mental Status: Sedate with meaningful communication Nerve Block 1st Nerve Block: Laterality: Left Block Type: Interscalene Ultrasound Image Saved?: Yes Needle / Catheter Used: 80mm SonoPlex II Local Anesthetic Bolus (Indicate Dose Given): Lidocaine used for local infiltration of skin, Injected in 3-5ml increments after negative blood aspiration, Bupivacaine 0.5% Dose:: 10cc/0.5% (50mg) and Exparel Dose:: 10cc/1.3% (133mg) Additives (Indicate Dose Given): Epinephrine to make 1:200,000 (5mcg/ml) Dose:: 50mcg (added to 0.5% Bupiv) Ultrasound: Sterile probe cover and gel used Nerve Stimulator: No twitch or parasthesia noted < 0.5 mA Paresthesia: None Procedure Tolerated: Patient tolerated well and Other (see note) Procedure Outcome: Successful (see note) Procedure Comment: Pt is an active smoker with COPD. Persistent chronic cough that continued during nerve block process. Pt has short anatomical neck with difficult visualization of plexus between scalene muscles (see ultrasound images). Partial visualization of bundle but difficult to keep in view during coughing. Consulted with 2nd NURSE PRACTITIONER [facility] [employer]ESSMENTS with agreement that partial bundle of plexus was best option for injection. No parathesia verbalized. Local placed with precautions as noted above. Pt noted with some muscle weakness and sensory loss 10 minutes after block. Luis Gonzalez, NURSE [facility]ACTITION[facility]ESSMENTS Performed By: Harjit Gonzalez
--- NOTE | 2025-03-10 11:30 | DI.RAD_ITS ---
Exam(s) XR SHOULDER LT COMPLETE 2+V EXAM: XR SHOULDER LT COMPLETE 2+V INDICATION: Post-op. COMPARISON: CR XR SHOULDER LT COMPLETE 2+V from 12/08/[address] UPPER EXTREMITY LT WO from 01/03/2025 TECHNIQUE: 2D digital imaging was performed. Two views. Portable FINDINGS: A reverse shoulder prosthesis has been placed. The alignment appears satisfactory. DATA REPOSITORY: RADIATION DOSE DELIVERED:
[2025-03-10] MEDS: oxyCODONE 5 MG TAB PO (11:58)
[2025-03-10] MEDS: ceFAZolin 1 GM/50 ML BAG IVPB (11:59)
[2025-03-10] MEDS: Normal Saline Flush 10 ML SYR IV (12:08)
--- NOTE | 2025-03-10 12:11 | W.ANESPOSTOP ---
Postoperative Evaluation Date, Time and Location Date Performed: 03/10/25 Time Performed: 12:12 Patient Location: Day Surgery Unit Vital Signs Most Recent Imported Vital Signs: Most Recent Vital Signs Temp Pulse Resp BP Pulse Ox 37.3 C 83 13 148/67 H 95 03/10/25 11:31 03/10/25 11:31 03/10/25 11:31 03/10/25 11:31 03/10/25 11:31 Pain Score Most Recent Pain Score: Most Recent Pain Score Pain Level 2 03/10/25 11:35 Assessment Mental Status: Awake (Alert & Oriented to Patient Baseline) Airway and Respiratory Function: Patent airway with normal (patient baseline) respiratory exam Cardiovascular Function: Hemodynamically Stable Hydration Status: Adequately Hydrated Nausea & Vomiting: No Nausea or Vomiting Pain: Pain is tolerable per patient Peripheral Nerve Block: Regional nerve block not resolved at time of post operative discharge
[2025-03-10] MEDS: Lactobacillus Acidophilus CAP 1 CAP PO (13:01)
== END 2025-03-10 14:09 | disposition home or self-care (01) ==
LOC: SUR 05:52
PROVIDERS: PCP Physician Assistant Medical; Visit Provider Student in an Organized Health Care Education/Training Program
PROC: (CPT 23472; principal; 2025-03-10 07:30)
DX: S42.252A Displaced fracture of greater tuberosity of left humerus, initial encounter for closed fracture (principal); M75.102 Unspecified rotator cuff tear or rupture of left shoulder, not specified as traumatic; S46.102A Unspecified injury of muscle, fascia and tendon of long head of biceps, left arm, initial encounter; X58.XXXA Exposure to other specified factors, initial encounter; G89.18 Other acute postprocedural pain
CPT/HCPCS: 23472; C1713; 64415; 73030; J0131; J0166; J0665; J0666; J0690; J1100; J1885; J2003; J2250; J2371; J2405; J2704; J3373

== ENCOUNTER 2025-03-22 10:26 | Outpatient (CLI) | payer MEDICARE, MEDICAID, SELFPAY ==
--- NOTE | 2025-03-22 09:00 | DI.RAD_ITS ---
Exam(s) XR SHOULDER LT COMPLETE 2+V EXAM: XR SHOULDER LT COMPLETE 2+V CLINICAL HISTORY: F/U LEFT RTSA. TECHNIQUE: 2D digital imaging was performed. Two images were obtained. Grashey and Y views were obtained. COMPARISON: CR XR SHOULDER LT COMPLETE 2+V from 03/10/2025 FINDINGS: BONES: There are stable post operative changes of a left reverse total shoulder arthroplasty present. No fracture or dislocation. JOINTS: The orthopedic hardware is in good position. No evidence of hardware loosening. SOFT TISSUE: Normal. IMPRESSION: Stable left reverse total shoulder arthroplasty. DATA REPOSITORY: RADIATION DOSE DELIVERED:
== END 2025-03-22 10:27 | disposition home or self-care (01) ==
LOC: DIORS 10:26
PROVIDERS: PCP Physician Assistant Medical; Referring Provider Physician Assistant Medical; Visit Provider Student in an Organized Health Care Education/Training Program
DX: S42.202D Unspecified fracture of upper end of left humerus, subsequent encounter for fracture with routine healing (principal); X58.XXXD Exposure to other specified factors, subsequent encounter; M75.102 Unspecified rotator cuff tear or rupture of left shoulder, not specified as traumatic
CPT/HCPCS: 99024; 73030

== ENCOUNTER → 2025-05-23 12:49 | Outpatient (BNVA) | payer MEDICARE, MEDICAID, SELFPAY | PROVIDERS: PCP Physician Assistant Medical; Referring Provider Physician Assistant Medical; Visit Provider Physician Assistant | DX: S42.202D Unspecified fracture of upper end of left humerus, subsequent encounter for fracture with routine healing (principal); M75.102 Unspecified rotator cuff tear or rupture of left shoulder, not specified as traumatic; M77.12 Lateral epicondylitis, left elbow | CPT/HCPCS: 99024 ==